=== PATIENT | female | born 1950 | race Caucasian/White ===

== ENCOUNTER 2016-04-26 11:41 | Outpatient (RCR) | payer MEDICARE, MEDICAID ==
--- OUTSIDE RECORDS SUMMARY | 2016-03-01 10:29 | XMS REPORT | Continuity of Care Document ---
Author Author [facility] Organization [facility] Address Unknown Phone Unavailable Care Team Providers Care All Source Intelligence Name Role Phone Tobi Benson PCP [phone] Source Comments Some departments are not documenting in the electronic medical record. If you do not see the information that you expected, contact Release of Information in the Health Information Management department at [phone] for further assistance in locating additional records.[facility] Active Allergies and Adverse Reactions Not [...]
[~2016-04-26 11:41] MED LIST: ACDPT PO; AMLO5TAB2 PO; ASP81TEC PO; ASPI-983 PO; ATEN25TA; ATEN50TA PO; ATOR40TA70 PO; ATOR80TA PO; ATOR80TA75 PO; Aspirin PO; BENZ-13 PO; BIOTIN PO; BRIN8DRO OU; CALC-6 PO; CALC-697 PO; CALC-80 PO; CHLO12TA9 PO; CHOL40002 PO; CHOL5000 PO; CLIN-80 PO; CLOP75TA28 PO; CLPD75T PO; CRAN1TAB PO; CRAN1TAB5 PO; CYAN250L PO; D50KC PO; DIAZIDE; DIGO250T96 PO; DIPH1TAB45 PO; DOXY100C2 PO; DPAS20025 PO; ENAL10TA PO; ENAL5TAB; ENALAPRIL; ENOX100D9 SQ; FEXO180T; FISH1CAP15 PO; FLAX100031 PO; FLT05NA16; FOLI0.4T2 PO; FOLI0.8T PO; FRS325T PO; FURO20TA4 PO; FURO40TA4; Folic Acid PO; GBPN100C PO; GLIP10TA13; GLIPIZIDE; HCT25T PO; HYDR-2997 PO; HYDR-3002 PO; HYDR-707; HYDR118S10 PO; INSASP10V SQ; INSU100I16 SQ; IRON45TA2 PO; ISORDIL PO; ISOS20TA6 PO; KCL; LEVE1U SQ; LEVO750T6 PO; LEVO750T9 PO; LISI1TAB10 PO; LISI2.5T PO; LISI2.5T56 PO; LORA10TA44 PO; LORA10TA7 PO; LOVA40TA2 PO; LVT.025T; MAGN100T3 PO; MAGN250T7 PO; MAGN400C PO; MELO-195 PO; METF-380 PO; METO-333 PO; METO100T2 PO; METO25TA2 PO; METO50TA7 PO; MTF500T; MTP50T PO; MULT-974 PO; NTR.4SL SL; NYST15CR3 TP; OMEG1CAP51 PO; OMEG1CAP74 PO; OMEP-10 PO; PRD20T PO; QUIN1TAB16 PO; QUIN20TA15 PO; ROSU20TA PO; SILV25CR TP; SULF1TAB35 PO; SULF1TAB38 PO; SUPER B PO; TORS100T14 PO; TRIA1CAP; TRM50T PO; VITA150T PO; WRF10T; WRF5T PO; ZANTAC; [UNRECOGNIZED DRUG - CODE] PO; [UNRECOGNIZED DRUG - REMARK]; coumadin
== END 2016-05-30 | disposition home or self-care (01) ==
LOC: ONC 11:41
PROVIDERS: ATTEND Internal Medicine Hematology & Oncology
DX: N18.3 Chronic kidney disease, stage 3 (moderate) (principal); D63.1 Anemia in chronic kidney disease; Z79.899 Other long term (current) drug therapy; Z45.2 Encounter for adjustment and management of vascular access device
CPT/HCPCS: 96523

== ENCOUNTER → 2016-05-23 | Outpatient (RCR) | payer MEDICARE, MEDICAID ==
--- OUTSIDE RECORDS SUMMARY | 2016-02-23 08:05 | XMS REPORT | Continuity of Care Document ---
Author Author [facility] Organization [facility] Address Unknown Phone Unavailable Care Team Providers Care Speeder Tender Name Role Phone Tobi Benson PCP [phone] Source Comments Some departments are not documenting in the electronic medical record. If you do not see the information that you expected, contact Release of Information in the Health Information Management department at [phone] for further assistance in locating additional records.[facility] Active Allergies and Adverse Reactions Not on File Current Medications Not on file Active Problems Not on file Social History Tobacco Use Types Packs/Day Years Used Date Never Assessed Plan of Care Health Maintenance Due Date Last Done Comments Physical (Comprehensive) 1959 Exam Pertussis Vaccine 1963 Tetanus Vaccine 1969 Cervical Cancer Screening 1973 Breast Cancer Screening 1992 Colorectal Cancer 2002 Screening Shingles Vaccine 2012 Influenza Vaccine 01/07/2016 Results from Last 3 Months Not on file
== END | disposition home or self-care (01) ==
LOC: WOUNDCARE 02-23 08:02
PROVIDERS: ATTEND Surgery
DX: E11.621 Type 2 diabetes mellitus with foot ulcer (principal); E11.42 Type 2 diabetes mellitus with diabetic polyneuropathy; E11.65 Type 2 diabetes mellitus with hyperglycemia; L97.522 Non-pressure chronic ulcer of other part of left foot with fat layer exposed; I70.245 Atherosclerosis of native arteries of left leg with ulceration of other part of foot; E66.01 Morbid (severe) obesity due to excess calories; Z68.43 Body mass index [BMI] 50.0-59.9, adult
CPT/HCPCS: 11042; 15275; 36415; 73630; 80053; 83036; 84134; 85652; 87070; 87075; 87077; 87186; 87205

== ENCOUNTER 2016-06-28 09:06 | Outpatient (RCR) | payer MEDICARE, MEDICAID ==
--- OUTSIDE RECORDS SUMMARY | 2016-06-01 08:29 | XMS REPORT | Continuity of Care Document ---
Author Author [facility] Organization [facility] Address Unknown Phone Unavailable Care Team Providers Care Improvement Specialist Name Role Phone Tobi Benson PCP [phone] Source Comments Some departments are not documenting in the electronic medical record. If you do not see the information that you expected, contact Release of Information in the Health Information Management department at [phone] for further assistance in locating additional records.[facility] Active Allergies and Adverse Reactions Not on [...]
== END 2016-06-28 16:00 | disposition home or self-care (01) ==
LOC: WOUNDCARE 09:06
PROVIDERS: ATTEND Surgery
DX: E11.621 Type 2 diabetes mellitus with foot ulcer (principal); E11.42 Type 2 diabetes mellitus with diabetic polyneuropathy; E11.65 Type 2 diabetes mellitus with hyperglycemia; L97.522 Non-pressure chronic ulcer of other part of left foot with fat layer exposed; I70.245 Atherosclerosis of native arteries of left leg with ulceration of other part of foot; E66.01 Morbid (severe) obesity due to excess calories; Z68.43 Body mass index [BMI] 50.0-59.9, adult
CPT/HCPCS: 11042; 99212

== ENCOUNTER → 2016-07-18 | Outpatient (CLI) | payer MEDICARE, MEDICAID ==
--- OUTSIDE RECORDS SUMMARY | 2016-07-18 11:09 | XMS REPORT | Continuity of Care Document ---
Author Author [facility] Organization [facility] Address Unknown Phone Unavailable Care Team Providers Care Power Shovel Mechanic Name Role Phone Tobi Benson PCP [phone] Source Comments Some departments are not documenting in the electronic medical record. If you do not see the information that you expected, contact Release of Information in the Health Information Management department at [phone] for further assistance in locating additional records.[facility] Active Allergies and Adverse Reactions Not [...]
[2016-07-18 12:26] LABS: ALBUMIN 3.6 G/DL (3.2-4.5); CALCIUM 9.6 MG/DL (8.5-10.1); CREATININE SERUM 1.63 MG/DL (0.60-1.30); PHOSPHORUS 3.8 MG/DL (2.3-4.7); POTASSIUM 4.3 MMOL/L (3.6-5.0)
[2016-07-18 12:35] LABS: PROTEIN/CREATININE RATIO 6.13
[2016-07-19 09:20] LABS: CALCIUM PARA THYROID HORMONE 9.5 mg/dL (8.5-10.5)
== END ==
LOC: LAB 11:06
PROVIDERS: ATTEND Internal Medicine Nephrology
DX: I12.9 Hypertensive chronic kidney disease with stage 1 through stage 4 chronic kidney disease, or unspecified chronic kidney disease (principal); E11.22 Type 2 diabetes mellitus with diabetic chronic kidney disease; N18.3 Chronic kidney disease, stage 3 (moderate); D63.1 Anemia in chronic kidney disease; E55.9 Vitamin D deficiency, unspecified; E87.5 Hyperkalemia; R80.9 Proteinuria, unspecified; N25.0 Renal osteodystrophy
CPT/HCPCS: 36415; 80061; 80069; 82306; 82570; 83036; 83970; 84100; 84156

== ENCOUNTER 2016-08-04 12:37 | Outpatient (RCR) | payer MEDICARE, MEDICAID ==
--- OUTSIDE RECORDS SUMMARY | 2016-06-07 09:51 | XMS REPORT | Continuity of Care Document ---
Author Author [facility] Organization [facility] Address Unknown Phone Unavailable Care Team Providers Care Bereavement Program Coordinator Name Role Phone Tobi Benson PCP [phone] Source Comments Some departments are not documenting in the electronic medical record. If you do not see the information that you expected, contact Release of Information in the Health Information Management department at [phone] for further assistance in locating additional records.[facility] Active Allergies and Adverse Reactions [...]
[2016-07-18 11:43] LABS: BASOPHILS % (AUTO) 1 % (0-10); EOSINOPHILS # (AUTO) 0.1 10^3/uL (0.0-0.3); EOSINOPHILS % (AUTO) 1 % (0-10); LYMPHOCYTES # (AUTO) 1.3 X 10^3 (1.0-4.0); LYMPHOCYTES % (AUTO) 21 % (12-44); MEAN CORPUSCULAR HEMOGLOBIN 28 PG (25-34); MEAN CORPUSCULAR HGB CONC 32 G/DL (32-36); MEAN CORPUSCULAR VOLUME 88 FL (80-99); MEAN PLATELET VOLUME 9.3 FL (7.4-10.4); MONOCYTES # (AUTO) 0.6 X 10^3 (0.0-1.0); MONOCYTES % (AUTO) 10 % (0-12); NEUTROPHILS # (AUTO) 4.2 X 10^3 (1.8-7.8); NEUTROPHILS % (AUTO) 68 % (42-75); PLATELET COUNT 245 10^3/uL (130-400); RED BLOOD COUNT 3.86 10^6/uL (4.35-5.85); RED CELL DISTRIBUTION WIDTH 14.5 % (10.0-14.5); WHITE BLOOD COUNT 6.2 10^3/uL (4.3-11.0)
[2016-07-18 12:29] LABS: CREATININE SERUM 1.65 MG/DL (0.60-1.30); POTASSIUM 4.4 MMOL/L (3.6-5.0)
[2016-07-18 12:30] LABS: ALBUMIN 3.6 G/DL (3.2-4.5); BILIRUBIN,TOTAL 0.5 MG/DL (0.1-1.0); CALCIUM 9.6 MG/DL (8.5-10.1); TOTAL PROTEIN 6.8 G/DL (6.4-8.2)
== END 2016-09-05 | disposition home or self-care (01) ==
LOC: ONC 12:37
PROVIDERS: ATTEND Internal Medicine Hematology & Oncology
DX: N18.3 Chronic kidney disease, stage 3 (moderate) (principal); D63.1 Anemia in chronic kidney disease; Z79.899 Other long term (current) drug therapy; Z45.2 Encounter for adjustment and management of vascular access device
CPT/HCPCS: 80053; 82728; 85025; 96523; 99213

== ENCOUNTER 2016-10-12 12:31 | Outpatient (RCR) | payer MEDICARE, MEDICAID | END 2016-10-25 14:08 | disposition home or self-care (01) | PROVIDERS: ATTEND Pain Medicine Interventional Pain Medicine | DX: M54.16 Radiculopathy, lumbar region (principal) ==

== ENCOUNTER → 2016-11-22 | Outpatient (CLI) | payer MEDICARE, MEDICAID ==
[~2016-11-22] MED LIST changes: +CIPR500S3 PO; +FLAX1000 PO; +INSU100I14 SC; +INSU100I29 SC; +LOSA100T28 PO; +MAGN250T35 PO; +MULT-35 PO; +NFBIOT1000 PO; +OMEG-160 PO; +ROSU20TA28 PO; +TURM538C PO; +[UNRECOGNIZED DRUG - CODE] PO
[2016-11-22 16:12] LABS: RED BLOOD COUNT 3.42 10^6/uL (4.35-5.85); RED CELL DISTRIBUTION WIDTH 13.9 % (10.0-14.5); WHITE BLOOD COUNT 7.6 10^3/uL (4.3-11.0)
[2016-11-22 16:13] LABS: MEAN PLATELET VOLUME 9.4 FL (7.4-10.4)
[2016-11-22 16:39] LABS: ALBUMIN 3.5 GM/DL (3.2-4.5); CALCIUM 9.4 MG/DL (8.5-10.1); CREATININE SERUM 1.94 MG/DL (0.60-1.30); PHOSPHORUS 2.9 MG/DL (2.3-4.7); POTASSIUM 4.9 MMOL/L (3.6-5.0)
[2016-11-22 16:41] LABS: PROTEIN/CREATININE RATIO 3.47
[2016-11-24 06:57] LABS: CALCIUM PARA THYROID HORMONE 8.8 mg/dL (8.5-10.5)
== END ==
LOC: LAB 15:43
PROVIDERS: ATTEND Internal Medicine Nephrology
DX: E11.29 Type 2 diabetes mellitus with other diabetic kidney complication (principal); I12.9 Hypertensive chronic kidney disease with stage 1 through stage 4 chronic kidney disease, or unspecified chronic kidney disease; N18.3 Chronic kidney disease, stage 3 (moderate); D63.1 Anemia in chronic kidney disease; E87.5 Hyperkalemia; R80.9 Proteinuria, unspecified; E66.3 Overweight; E78.5 Hyperlipidemia, unspecified; N08 Glomerular disorders in diseases classified elsewhere; I25.10 Atherosclerotic heart disease of native coronary artery without angina pectoris; E55.9 Vitamin D deficiency, unspecified; N20.0 Calculus of kidney
CPT/HCPCS: 36415; 80069; 82306; 82570; 83036; 83970; 84156; 85027

== ENCOUNTER 2016-12-30 08:27 | Outpatient (RCR) | payer MEDICARE, MEDICAID ==
[2016-10-10 14:46] LABS: BASOPHILS % (AUTO) 0 % (0-10); EOSINOPHILS # (AUTO) 0.1 10^3/uL (0.0-0.3); EOSINOPHILS % (AUTO) 1 % (0-10); LYMPHOCYTES # (AUTO) 1.6 X 10^3 (1.0-4.0); LYMPHOCYTES % (AUTO) 23 % (12-44); MEAN CORPUSCULAR HEMOGLOBIN 29 PG (25-34); MEAN CORPUSCULAR HGB CONC 33 G/DL (32-36); MEAN CORPUSCULAR VOLUME 90 FL (80-99); MEAN PLATELET VOLUME 9.3 FL (7.4-10.4); MONOCYTES # (AUTO) 0.7 X 10^3 (0.0-1.0); MONOCYTES % (AUTO) 10 % (0-12); NEUTROPHILS # (AUTO) 4.5 X 10^3 (1.8-7.8); NEUTROPHILS % (AUTO) 66 % (42-75); PLATELET COUNT 245 10^3/uL (130-400); RED BLOOD COUNT 3.88 10^6/uL (4.35-5.85); RED CELL DISTRIBUTION WIDTH 13.6 % (10.0-14.5); WHITE BLOOD COUNT 6.8 10^3/uL (4.3-11.0)
[~2016-12-30 08:27] MED LIST changes: -CIPR500S3 PO; -FLAX1000 PO; -INSU100I14 SC; -INSU100I29 SC; -LOSA100T28 PO; -MAGN250T35 PO; -MULT-35 PO; -NFBIOT1000 PO; -OMEG-160 PO; -ROSU20TA28 PO; -TURM538C PO; -[UNRECOGNIZED DRUG - CODE] PO
[2016-12-30 08:52] LABS: BASOPHILS % (AUTO) 1 % (0-10); EOSINOPHILS # (AUTO) 0.1 10^3/uL (0.0-0.3); EOSINOPHILS % (AUTO) 2 % (0-10); LYMPHOCYTES # (AUTO) 1.5 X 10^3 (1.0-4.0); LYMPHOCYTES % (AUTO) 19 % (12-44); MEAN CORPUSCULAR HEMOGLOBIN 29 PG (25-34); MEAN CORPUSCULAR HGB CONC 31 G/DL (32-36); MEAN CORPUSCULAR VOLUME 91 FL (80-99); MEAN PLATELET VOLUME 9.7 FL (7.4-10.4); MONOCYTES % (AUTO) 12 % (0-12); NEUTROPHILS # (AUTO) 5.2 X 10^3 (1.8-7.8); NEUTROPHILS % (AUTO) 67 % (42-75); PLATELET COUNT 334 10^3/uL (130-400); RED BLOOD COUNT 3.81 10^6/uL (4.35-5.85); RED CELL DISTRIBUTION WIDTH 13.5 % (10.0-14.5); WHITE BLOOD COUNT 7.8 10^3/uL (4.3-11.0)
[2016-12-30 09:14] LABS: ALBUMIN 3.4 GM/DL (3.2-4.5); BILIRUBIN,TOTAL 0.3 MG/DL (0.1-1.0); CALCIUM 9.5 MG/DL (8.5-10.1); CREATININE SERUM 2.41 MG/DL (0.60-1.30); POTASSIUM 5.2 MMOL/L (3.6-5.0); TOTAL PROTEIN 7.1 GM/DL (6.4-8.2)
== END 2017-01-08 | disposition home or self-care (01) ==
LOC: ONC 08:27
PROVIDERS: ATTEND Internal Medicine Hematology & Oncology
DX: N18.3 Chronic kidney disease, stage 3 (moderate) (principal); D63.1 Anemia in chronic kidney disease; Z79.899 Other long term (current) drug therapy; Z45.2 Encounter for adjustment and management of vascular access device
CPT/HCPCS: 36591; 80053; 82728; 83615; 85025

== ENCOUNTER 2017-01-11 08:15 | Outpatient (RCR) | payer MEDICARE, MEDICAID | END 2017-02-04 | disposition home or self-care (01) | LOC: ONC 08:15 | PROVIDERS: ATTEND Internal Medicine Hematology & Oncology | DX: Z79.899 Other long term (current) drug therapy; D63.1 Anemia in chronic kidney disease; N18.3 Chronic kidney disease, stage 3 (moderate) | CPT/HCPCS: 99213 ==

== ENCOUNTER 2017-02-26 10:05 | Observation (INO) | payer MEDICARE, MEDICAID ==
[~2017-02-26] VITALS: Ht 167.6 cm; Wt 142.2 kg
--- OUTSIDE RECORDS SUMMARY | 2017-02-26 10:10 | XMS REPORT ---
Author Author MARY FRAGOSO [employer] Address Unknown Phone Unavailable Care Team Providers Care Tester Food Products Name Role Phone MARY FRAGOSO CP Unavailable Allergies No Known Allergies Problems Problem Type Condition Code Onset Dates Condition Status Problem Coronary artery disease involving [place] coronary artery of [place] heart, angina presence unspecified I25.10 Active Problem Type 2 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 Active Problem Type 2 diabetes mellitus with foot ulcer E11.621 Active Problem Stenosis of carotid artery, unspecified laterality I65.29 Active Problem Type 2 diabetes mellitus with diabetic polyneuropathy E11.42 Active Problem Anemia in other chronic diseases classified elsewhere D63.8 Active Problem Chronic kidney disease, stage 3 (moderate) N18.3 Active Problem Generalized osteoarthritis M15.9 Active Problem Essential hypertension I10 Active Problem 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
--- OUTSIDE RECORDS SUMMARY | 2017-02-26 10:10 | XMS REPORT ---
Author Author MARY FRAGOSO [employer] Address Unknown Phone Unavailable Care Team Providers Care Glass Cutter Helper Name Role Phone MARY FRAGOSO CP Unavailable Allergies No Known Allergies Problems Problem Type Condition Code Onset Dates Condition Status Problem Type 2 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 Active Problem Generalized osteoarthritis M15.9 Active Problem Essential hypertension I10 Active Problem Type 2 diabetes mellitus with diabetic polyneuropathy E11.42 Active Problem Anemia in other chronic diseases classified elsewhere D63.8 Active Problem Chronic kidney disease, stage 3 (moderate) N18.3 Active Problem 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 Active Problem Type 2 diabetes mellitus with hyperglycemia E11.65 Active Problem Mixed hyperlipidemia E78.2 Active Problem Iron deficiency anemia, unspecified iron deficiency anemia type D50.9 Active Problem Stenosis of carotid artery, unspecified laterality I65.29 Active Problem Coronary artery disease involving [place] coronary artery of [place] heart, angina presence unspecified I25.10 Active Problem Type 2 diabetes mellitus with foot ulcer E11.621 Active Medications Medication Code System Code Instructions Start Date End Date Status Dosage Cipro [facility] [address]-94 250 MG Orally every 12 hrs Jun 18, 2015 1 tablet Results No Known Results Summary Purpose [employer] Submission
--- OUTSIDE RECORDS SUMMARY | 2017-02-26 10:10 | XMS REPORT ---
Author Author JENN MCDONALD Organization [facility] Address [address] [place] [address] Care Team Providers Care Musical Instrument Maker Name Role Phone JENN MCDONALD Unavailable PROBLEMS Type Condition ICD9-CM Code [id number] Code Onset Dates Condition Status SNOMED Code Problem Generalized osteoarthritis M15.9 Active 975076512 Problem Essential hypertension I10 Active 75020905 Problem Aortic valve sclerosis I35.8 Active 01106676 Problem Presence of IVC filter Z95.828 Active 139665933 Problem Trochanteric bursitis of left hip M70.62 Active 273684525502953 Problem Type 2 diabetes mellitus with diabetic polyneuropathy E11.42 Active 982100208 Problem Chronic kidney disease, stage 3 (moderate) N18.3 Active 835350231 Problem Diarrhea, unspecified type R19.7 Active 14645992 Problem Anemia in other chronic diseases classified elsewhere D63.8 Active 951956332 Problem Decreased diffusion capacity R94.2 Active 04298403 Problem 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 Active 3093315 Problem Severe sleep apnea G47.30 Active 75743625 Problem Iron deficiency anemia, unspecified iron deficiency anemia type D50.9 Active 09992514 Problem Type 2 diabetes mellitus with hyperglycemia E11.65 Active 84144375 Problem Type 2 diabetes mellitus with foot ulcer E11.621 Active 060139339 Problem Type 2 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 Active 99039703 Problem Stenosis of carotid artery, unspecified laterality I65.29 Active 79250847 Problem Mixed hyperlipidemia E78.2 Active 046421617 Problem Coronary artery disease involving [place] coronary artery of [place] heart, angina presence unspecified I25.10 Active 5021904436682 ALLERGIES No Information SOCIAL HISTORY Never Assessed PLAN OF CARE VITAL SIGNS MEDICATIONS Medication Instructions Dosage Frequency Start Date End Date Duration Status Hydrocodone-Acetaminophen 7.5-325 MG Orally 3 times a day 1 tablet as needed 8h Nov, Active RESULTS No Results PROCEDURES No Known procedures IMMUNIZATIONS No Known Immunizations MEDICAL (GENERAL) HISTORY Type Description Date Medical History Carotid stenosis (R) Medical History arrhythmia-irregular beat Medical History coronary artery disease Medical History hypertension Medical History chronic renal failure Medical History endometriosis Medical History type II diabetes Medical History hyperlipidemia Medical History obesity Medical History chronic pain (back and shoulder) Medical History degenerative disc disease (T spine)/compression fx T3 Medical History TIA 11/2010 Medical History deep vein thromboses (R leg) Medical History hearing loss (bilat ruptured TMs) Medical History ruptured supraspinus tendon w/ hemarthrosis R shoulder s/p fall 12/2009 Surgical History cholecystectomy Surgical History heart cath Surgical History tonsillectomy and adenoidectomy Surgical History carotid endarterectomy 01/2011 Surgical History hysterectomy Surgical History orthopedic surgery-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 ([facility]) 1986 Surgical History osteomyelitis left 4th toe 2006 Surgical History laser eye surgery both eyes 05/2015 Hospitalization History Hyperglycemia, Hypoxia--[facility] 01/21/16 Hospitalization History surgeries
--- OUTSIDE RECORDS SUMMARY | 2017-02-26 10:10 | XMS REPORT ---
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 Active 9360155 Problem Decreased diffusion capacity R94.2 Active 21418419 Problem Aortic valve sclerosis I35.8 Active 76646797 Problem Chronic kidney disease, stage 3 (moderate) N18.3 Active 732136508 Problem Type 2 diabetes mellitus with diabetic polyneuropathy E11.42 Active 829325135 Problem Iron deficiency anemia, unspecified iron deficiency anemia type D50.9 Active 41923247 Problem Severe sleep apnea G47.30 Active 64571837 Problem Anemia in other chronic diseases classified elsewhere D63.8 Active 166613173 Problem Mixed hyperlipidemia E78.2 Active 872765222 Problem Stenosis of carotid artery, unspecified laterality I65.29 Active 75993621 Problem Type 2 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 Active 92866650 Problem Essential hypertension I10 Active 61751597 Problem Coronary artery disease involving [place] coronary artery of [place] heart, angina presence unspecified I25.10 Active 4237767522767 Problem Generalized osteoarthritis M15.9 Active 515718946 Problem Type 2 diabetes mellitus with foot ulcer E11.621 Active 805487116 Problem Type 2 diabetes mellitus with hyperglycemia E11.65 Active 87650695 ALLERGIES Unknown Allergies SOCIAL HISTORY No smoking Hx information available PLAN OF CARE VITAL SIGNS MEDICATIONS Unknown Medications RESULTS No Results PROCEDURES No Known procedures IMMUNIZATIONS No Known Immunizations
--- OUTSIDE RECORDS SUMMARY | 2017-02-26 10:10 | XMS REPORT | Clinical Summary ---
Author Author [facility] Organization [facility] Address Unknown Phone Unavailable Care Team Providers Care Hotel Registration Clerk Name Role Phone PCP Unavailable Source Comments Some departments are not documenting in the electronic medical record. If you do not see the information that you expected, contact Release of Information in the Health Information Management department at [phone] for further assistance in locating additional records.[facility] Allergies Not on File Current Medications Not on file Active Problems Not on file Social History Tobacco Use Types Packs/Day Years Used Date Never Assessed Sex Assigned at Date Recorded Not on file Last Filed Vital Signs Not on file Plan of Treatment Health Maintenance Due Date Last Done Comments HEPATITIS C SCREENING 1952 PHYSICAL (COMPREHENSIVE) 1959 EXAM PERTUSSIS VACCINE 1963 TETANUS VACCINE 1969 CERVICAL CANCER SCREENING 1982 BREAST CANCER SCREENING 1992 COLORECTAL CANCER 2002 SCREENING SHINGLES VACCINE 2012 INFLUENZA VACCINE 12/06/2016 Results Not on filefrom Last 3 Months
--- OUTSIDE RECORDS SUMMARY | 2017-02-26 10:10 | XMS REPORT ---
Author Author MARY FRAGOSO Organization [facility] Address [address] [place] [address] Care Team Providers Care Harvester Operator Name Role Phone MARY FRAGOSO Unavailable PROBLEMS Type Condition ICD9-CM Code [id number] Code Onset Dates Condition Status SNOMED Code Problem Aortic valve sclerosis I35.8 Active 07311232 Problem Severe sleep apnea G47.30 Active 71314698 Problem Decreased diffusion capacity R94.2 Active 14443884 Problem Diarrhea, unspecified type R19.7 Active 48228760 Problem Chronic kidney disease, stage 3 (moderate) N18.3 Active 475801000 Problem Mixed hyperlipidemia E78.2 Active 099097129 Problem Iron deficiency anemia, unspecified iron deficiency anemia type D50.9 Active 62591319 Problem Type 2 diabetes mellitus with diabetic polyneuropathy E11.42 Active 273605644 Problem Anemia in other chronic diseases classified elsewhere D63.8 Active 465034453 Problem Stenosis of carotid artery, unspecified laterality I65.29 Active 68978801 Problem Coronary artery disease involving [place] coronary artery of [place] heart, angina presence unspecified I25.10 Active 2025019706256 Problem Essential hypertension I10 Active 31647869 Problem Generalized osteoarthritis M15.9 Active 770194256 Problem Type 2 diabetes mellitus with foot ulcer E11.621 Active 897442038 Problem Type 2 diabetes mellitus with hyperglycemia E11.65 Active 81469934 Problem Type 2 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 Active 02921551 Problem 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
--- OUTSIDE RECORDS SUMMARY | 2017-02-26 10:11 | XMS REPORT ---
Author Author MIGUEL GÓMEZ Organization [facility] Address [address] 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 Active 5456747 Problem Decreased diffusion capacity R94.2 Active 02995016 Problem Aortic valve sclerosis I35.8 Active 03548106 Problem Chronic kidney disease, stage 3 (moderate) N18.3 Active 734531457 Problem Type 2 diabetes mellitus with diabetic polyneuropathy E11.42 Active 253557588 Problem Iron deficiency anemia, unspecified iron deficiency anemia type D50.9 Active 92337517 Problem Severe sleep apnea G47.30 Active 70167272 Problem Anemia in other chronic diseases classified elsewhere D63.8 Active 675970199 Problem Mixed hyperlipidemia E78.2 Active 506721824 Problem Stenosis of carotid artery, unspecified laterality I65.29 Active 29238228 Problem Type 2 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 Active 61478026 Problem Essential hypertension I10 Active 91321665 Problem Coronary artery disease involving [place] coronary artery of [place] heart, angina presence unspecified I25.10 Active 8395263459771 Problem Generalized osteoarthritis M15.9 Active 804429095 Problem Type 2 diabetes mellitus with foot ulcer E11.621 Active 986301039 Problem Type 2 diabetes mellitus with hyperglycemia E11.65 Active 41180475 ALLERGIES Unknown Allergies SOCIAL HISTORY No smoking Hx information available PLAN OF CARE VITAL SIGNS MEDICATIONS Medication Instructions Dosage Frequency Start Date End Date Duration Status Vitamin D3 5000 UNIT Active Alavert 10 mg take 1 tablet (10 mg) by oral route once daily September, Active Lomotil 2.5-0.025 MG Orally Four times a day 1 tablet as needed 6h Active Arginine 1000 MG Orally 3 times a day 2 tablets 8h Active Neurontin 100 MG Orally 3 times a day 1 capsule 8h Nov, Active Norvasc 5 MG TAKE ONE TABLET BY MOUTH DAILY 30 Active Multivitamin Adult - Active Levemir Flexpen 100 UNIT/ML INJECT 20 UNITS SUBCUTANEOUSLY TWICE DAILY 38 Active Aspirin 81 mg take 1 tablet (81 mg) by oral route once daily September, Active Hydrocodone-Acetaminophen 7.5-325 MG Orally 3 times a day 1 tablet as needed 8h 10 Nov, 2014 Active Vitamin D2 50,000 unit take 1 capsule (50,000 unit) by oral route once weekly for 12 weeks Jan, Active Magnesium Oxide 250 MG Orally Once a day 1 tablet 24h Active Fish Oil 1000 MG Orally 3 times a day 1 capsule 8h Active Flaxseed Oil 1000 MG Active Rosuvastatin Calcium 20 mg Orally Once a day 1 tablet 24h Apr, 90 days Active Levofloxacin 750 MG Orally Once a day for 7 days 1 tablet Active Plavix 75 MG TAKE ONE TABLET BY MOUTH DAILY 30 Active Calcium Carbonate-Vitamin D3 600-400 MG-UNIT Orally 3 times a day 8h Active Simbrinza 1-0.2 % Ophthalmic Three times a day 1 drop into affected eye 8h Active Metoprolol Tartrate 25 MG TAKE ONE TABLET BY MOUTH TWICE DAILY 30 Active NovoLog Flexpen 100 unit/mL 18 units by Subcutaneous route 3 times per day Jul, Active Nitroglycerin 0.[address] 1 tablet (0.4 mg) by sublingual route at the 1st sign of attack; may repeat every 5 min until relief; if pain persists after 3 tablets in 15 min, prompt medical attention is recommendedPRN Mar, Active PredniSONE 20 mg Orally Once a day for 5 days 1 tablet Active RESULTS No Results PROCEDURES No Known procedures IMMUNIZATIONS No Known Immunizations
--- OUTSIDE RECORDS SUMMARY | 2017-02-26 10:11 | XMS REPORT ---
Author Author MARY FRAGSOO [employer] Address Unknown Phone Unavailable Care Team Providers Care Molded Rubber Goods Cutter Name Role Phone MARY FRAGOSO CP Unavailable Allergies No Known Allergies Problems Problem Type Condition Code Onset Dates Condition Status Problem Coronary artery disease involving [place] coronary artery of [place] heart, angina presence unspecified I25.10 Active Problem [...] diabetes mellitus with hyperglycemia E11.65 Active Medications No Known Medications Results No Known Results Summary Purpose [employer]ClinicalWorks Submission
--- OUTSIDE RECORDS SUMMARY | 2017-02-26 10:11 | XMS REPORT ---
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 Active Problem Type 2 diabetes mellitus with hyperglycemia E11.65 Active Problem Chronic kidney disease, stage 3 (moderate) N18.3 Active Assessment Hypoxia R09.02 Active Problem Type 2 diabetes mellitus with diabetic polyneuropathy E11.42 Active Assessment 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 Active Assessment Type 2 diabetes mellitus with foot ulcer E11.621 Active Problem Diarrhea, unspecified type R19.7 Active Problem Iron deficiency anemia, unspecified iron deficiency anemia type D50.9 Active Problem Severe sleep apnea G47.30 Active Problem Anemia in other chronic diseases classified elsewhere D63.8 Active Problem Mixed hyperlipidemia E78.2 Active Assessment Diarrhea, unspecified type R19.7 Active Assessment Encounter for immunization Z23 Active Assessment Mixed hyperlipidemia E78.2 Active Assessment Essential hypertension I10 Active Problem Coronary artery disease involving [place] coronary artery of [place] heart, angina presence unspecified I25.10 Active Problem Type 2 diabetes mellitus with foot ulcer E11.621 Active Assessment Type 2 diabetes mellitus with hyperglycemia E11.65 Active Problem Type 2 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 Active Problem Stenosis of carotid artery, unspecified laterality I65.29 Active Problem Essential hypertension I10 Active Medications Medication Code System Code Instructions Start Date End Date Status Dosage Lomotil [facility] [address]-17 2.5-0.025 MG Orally Four times a day 1 tablet as needed Alavert [facility] [address]-85 10 mg September 29, 2011 take 1 tablet (10 mg ) by oral route once daily Rosuvastatin Calcium [facility] [address]-40 20 mg Orally Once a day Apr 21, 2015 1 tablet Levemir Flexpen [facility] 10515107924 100 UNIT/ML INJECT 20 UNITS SUBCUTANEOUSLY TWICE DAILY Calcium Carbonate-Vitamin D3 [facility] [address]-51 600-400 MG-UNIT Orally 3 times a day not defined Neurontin [facility] 59693436959 100 MG Orally 3 times a day 1 capsule Fish Oil [facility] [address]-56 1000 MG Orally 3 times a day 1 capsule Norvasc [facility] [address]-18 5 MG Orally Once a day 1 tablet Arginine [facility] [address]-32 1000 MG Orally 3 times a day 2 tablets Nitroglycerin [facility] [address]-62 0.4 mg Mar 09, 2012 place 1 tablet (0.4 mg) by sublingual route at the 1st sign of attack; may repeat every 5 min until relief; if pain persists after 3 tablets in 15 min, prompt medical attention is recommendedPRN Hydrocodone-Acetaminophen [facility] [address]-81 7.5-325 MG Orally 3 times a day November 14, 2014 1 tablet as needed Multivitamin Adult [facility] 63786-88576 - Orally not defined Magnesium Oxide [facility] 9[address]96-56926 250 MG Orally Once a day 1 tablet Metoprolol Tartrate [facility] [address]-28 25 MG Orally Twice a day 1/ 2 tablet Plavix [facility] 08092292545 75 MG TAKE ONE TABLET BY MOUTH DAILY Simbrinza [facility] [address]-45 1-0.2 % Ophthalmic Three times a day 1 drop into affected eye Aspirin [facility] 52335-75552 81 mg September 29, 2011 take 1 tablet (81 mg) by oral route once daily NovoLog Flexpen [facility] [address]-67 100 unit/mL July 18, 2014 18 units by Subcutaneous route 3 times per day Vitamin D3 [facility] [address]-32 5000 UNIT Orally not defined Flaxseed Oil [facility] [address]-21 1000 MG Orally not defined Procedures Procedure Coding System Code Date FLUARIX QUAD P-FREE 3 AND UP .50 2015 CPT-4 28157 Feb 19, 2016 SINGLE IMMUNIZATION ADMIN CPT-4 25936 Feb 19, 2016 GLYCATED HEMOGLOBIN TEST CPT-4 27336 Feb 19, 2016 Office Visit, Est Pt., Level 3 CPT-4 56290 Feb 19, 2016 [facility] VISIT ESTABLISHED PATIENT CPT-4 G0467 Feb 19, 2016 Vital Signs Date/Time: Feb 19, 2016 Cardiac Monitoring Heart Rate 72 bpm Weight 344.7 lbs Height 66 in BMI 55.63 Index Blood Pressure Diastolic 64 mmHg Blood Pressure Systolic 132 mmHg Results Name Result Date Reference Range Unit Abnormality Flag A1C (IN HOUSE) ----A1C IN HOUSE 9.2 20160219 4.3 - 5.6 % ----Previous A1c 11.6 20160219 ----Lot [id number] ----Exp date [id number] Immunizations Vaccine Administration Date FLUARIX QUAD P-FREE 3 AND UP .50 2015Feb 19, 2016 Summary Purpose eClinicalWorks Submission
--- OUTSIDE RECORDS SUMMARY | 2017-02-26 10:11 | XMS REPORT ---
Author Author MARY FRAGOSO [employer] Address Unknown Phone Unavailable Care Team Providers Care Hedis Coordinator Name Role Phone MARY FRAGOSO CP Unavailable Allergies No Known Allergies Problems Problem Type Condition Code Onset Dates Condition Status Problem Type 2 diabetes mellitus with foot ulcer E11.621 Active Problem Essential hypertension I10 Active Problem Type 2 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 Active Problem Stenosis of carotid artery, unspecified laterality I65.29 Active Problem Coronary artery disease involving [place] coronary artery of [place] heart, angina presence unspecified I25.10 Active Problem Type 2 diabetes mellitus with diabetic polyneuropathy E11.42 Active Problem Anemia in other chronic diseases classified elsewhere D63.8 Active Problem Chronic kidney disease, stage 3 (moderate) N18.3 Active Problem Type 2 diabetes mellitus with hyperglycemia E11.65 Active Problem Generalized osteoarthritis M15.9 Active Problem Mixed hyperlipidemia E78.2 Active Problem 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 [address]-24 20 MG Orally Once a day Apr 21, 2015 1 tablet Results No Known Results Summary Purpose eClinicalWorks Submission
--- OUTSIDE RECORDS SUMMARY | 2017-02-26 10:11 | XMS REPORT ---
Author Author MARY FRAGOSO [employer] Address Unknown Phone Unavailable Care Team Providers Care Leather Worker Name Role Phone MARY FRAGOSO CP Unavailable [...]
--- OUTSIDE RECORDS SUMMARY | 2017-02-26 10:11 | XMS REPORT ---
Author Author MAYR FRAGOSO [employer] Address Unknown Phone Unavailable Care Team Providers Care Garden Equipment Mechanic Name Role Phone MARY FRAGOSO CP Unavailable Allergies, Adverse Reactions, Alerts Substance Reaction Event Type Triple Antibiotic Info Not Available Drug Allergy Penicillin V Potassium Info Not Available Drug Allergy Flonase bloody nose Drug Allergy Amoxicillin Info Not Available Drug Allergy Problems Problem Type Condition ICD-9 Code Onset Dates Condition Status Problem Flat foot 734 Active Problem Hallux rigidus 735.2 Active Problem Ulcer of heel and midfoot 707.14 Active Problem Hyposmolality and/or hyponatremia 276.1 Active Problem 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 Active Problem Hypertension 401.9 Active Problem Palpitations 785.1 Active Problem Edema 782.3 Active Problem Generalized osteoarthrosis, unspecified site 715.00 Active Problem Diabetes with other specified manifestations, type II or unspecified type, not stated as uncontrolled 250.80 Active Assessment Hip pain, left 719.45 Active Assessment Hypertension 401.9 Active Assessment Acute anxiety 300.00 Active Problem Unspecified hearing loss 389.9 Active Problem Dysfunction of Eustachian tube 381.81 Active Assessment Ulcer of heel and midfoot 707.14 Active Problem Occlusion and stenosis of carotid artery without mention of cerebral infarction 433.10 Active Assessment Diabetes with other specified manifestations, type II or unspecified type, not stated as uncontrolled 250.80 Active Problem Coronary atherosclerosis of unspecified type of vessel, [place] or graft 414.00 Active Medications Medication Code System Code Instructions Start Date End Date Status Dosage Norvasc [facility] 55443220718 5 MG TAKE ONE TABLET BY MOUTH DAILY Flaxseed Oil [facility] 35119-04625 Jun 21, 2011 by Oral route Magnesium [facility] 46[address]-58227 Jun 21, 2011 by Oral route Aspirin [facility] 56187-58008 81 mg September 29, 2011 take 1 tablet (81 mg) by oral route once daily NovoLog Flexpen [facility] [address]-16 100 unit/mL July 18, 2014 25 units by Subcutaneous route 3 times per day Multivitamin [facility] 01015-35519 Jan 10, 2014 1 tablet by Oral route 1 time per day Hydrocodone-Acetaminophen [facility] [address]-29 7.5-325 MG Orally 3 times a day November 14, 2014 1 tablet as needed Fish Oil [facility] [address]-75 Jun 21, 2011 by Oral route Biotin [facility] 47144-37790 10,000 mcg Jan 10, 2014 1 Capsule 3 times per day Valium [facility] [address]-95 5 MG Orally PRN September 24, 2014 1 tablet as needed 30 before procedure, can repeat dose if needed. Do not drive after taking. Simbrinza [facility] [address]-81 1-0.2 % Ophthalmic Three times a day 1 drop into affected eye Alavert [facility] [address]-17 10 mg September 29, 2011 take 1 tablet (10 mg ) by oral route once daily Ciprofloxacin HCl [facility] [address]-84 0.3 % Ophthalmic every 4 hrs 1 drop into affected eye while awake Folic Acid [facility] [address]-42 Jun 21, 2011 by Oral route Levemir FlexTouch [facility] [address]-78 100 unit/mL (3 mL) July 18, 2014 inject 40 Units by Subcutaneous route every day Cranberry [facility] 39566-78619 300 mg Jan 10, 2014 1 Tablet 3 times per day Metoprolol Tartrate [facility] [address]-85 25 MG Orally July 18, 2014 take 1 tablet (50 mg) by oral route 2 times per day with meals Neurontin [facility] [address]-87 100 MG Orally 3 times a day November 14, 2014 1 capsule Ferrous Sulfate [facility] [address]-16 325 mg (65 mg iron) Jun 20, 2012 1 tablet by Oral route 2 times per day Vitamin D2 [facility] 63796-[address]24 50,000 unit Jan 10, 2014 take 1 capsule (50,000 unit) by oral route once weekly for 12 weeks Procedures Procedure Coding System Code Date Office Visit, Est Pt., Level 4 CPT-4 14841 Dec 24, 2014 [facility] VISIT ESTABLISHED PATIENT CPT-4 G0467 Dec 24, 2014 Vital Signs Date/Time: Dec 24, 2014 Temperature 98.5 F Weight 332.7 lbs Height 66 in BMI 53.69 Index Blood Pressure Diastolic 80 mmHg Blood Pressure Systolic 162 mmHg Cardiac Monitoring Heart Rate 74 bpm Results No Known Results Summary Purpose eClinicalWorks Submission
--- OUTSIDE RECORDS SUMMARY | 2017-02-26 10:11 | XMS REPORT ---
Author Author MARY FRAGOSO [employer] Address Unknown Phone Unavailable Care Team Providers Care Police Officer Name Role Phone MARY FRAGOSO CP Unavailable [...] I65.29 Active Problem Coronary artery disease involving [place] coronary artery of [place] heart, angina presence unspecified I25.10 Active Problem Type 2 diabetes mellitus with foot ulcer E11.621 Active Medications Medication Code System Code Instructions Start Date End Date Status Dosage Rosuvastatin Calcium [facility] [address]-90 20 mg Orally Once a day Apr 21, 2015 1 tablet Results No Known Results Summary Purpose eClinicalWorks Submission
--- OUTSIDE RECORDS SUMMARY | 2017-02-26 10:11 | XMS REPORT ---
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 Active 34094230 Problem Severe sleep apnea G47.30 Active 97921142 Problem Decreased diffusion capacity R94.2 Active 74630622 Problem Diarrhea, unspecified type R19.7 Active 89967189 Problem Chronic kidney disease, stage 3 (moderate) N18.3 Active 149305913 Problem Mixed hyperlipidemia E78.2 Active 857152822 Problem Iron deficiency anemia, unspecified iron deficiency anemia type D50.9 Active 43690536 Problem Type 2 diabetes mellitus with diabetic polyneuropathy E11.42 Active 844525031 Problem Anemia in other chronic diseases classified elsewhere D63.8 Active 013531653 Problem Stenosis of carotid artery, unspecified laterality I65.29 Active 22953365 Problem Coronary artery disease involving [place] coronary artery of [place] heart, angina presence unspecified I25.10 Active 8817554124888 Problem Essential hypertension I10 Active 70231325 Problem Generalized osteoarthritis M15.9 Active 993762803 Problem Type 2 diabetes mellitus with foot ulcer E11.621 Active 977185004 Problem Type 2 diabetes mellitus with hyperglycemia E11.65 Active 25330432 Problem Type 2 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 Active 34879835 Problem 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
--- OUTSIDE RECORDS SUMMARY | 2017-02-26 10:11 | XMS REPORT ---
Author Author MARY FRAGOSO [facility] Address [address] [place] [address] Care Team Providers Care Fiberglass Boat Builder Name Role Phone MARY FRAGOSO Unavailable PROBLEMS Type Condition ICD9-CM Code [id number] Code Onset Dates Condition Status SNOMED Code Problem Generalized osteoarthritis M15.9 Active 022186185 Problem Essential hypertension I10 Active 69854628 Problem Aortic valve sclerosis I35.8 Active 45131652 Problem Presence of IVC filter Z95.828 Active 657430076 Problem Trochanteric bursitis of left hip M70.62 Active 699895594118858 Problem Type 2 diabetes mellitus with diabetic polyneuropathy E11.42 Active 301335785 Problem Chronic kidney disease, stage 3 (moderate) N18.3 Active 202106587 Problem Diarrhea, unspecified type R19.7 Active 45184366 Problem Anemia in other chronic diseases classified elsewhere D63.8 Active 580667336 Problem Decreased diffusion capacity R94.2 Active 24971954 Problem 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 Active 3782996 Problem Severe sleep apnea G47.30 Active 17331781 Problem Iron deficiency anemia, unspecified iron deficiency anemia type D50.9 Active 01205154 Problem Type 2 diabetes mellitus with hyperglycemia E11.65 Active 02896332 Problem Type 2 diabetes mellitus with foot ulcer E11.621 Active 979498922 Problem Type 2 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 Active 29606493 Problem Stenosis of carotid artery, unspecified laterality I65.29 Active 71328807 Problem Mixed hyperlipidemia E78.2 Active 823706238 Problem Coronary artery disease involving [place] coronary artery of [place] heart, angina presence unspecified I25.10 Active [id number] ALLERGIES No Information SOCIAL HISTORY Never Assessed PLAN OF CARE VITAL SIGNS MEDICATIONS Unknown [...]
--- OUTSIDE RECORDS SUMMARY | 2017-02-26 10:11 | XMS REPORT ---
Author Author MARY FRAGOSO [employer] Address Unknown Phone Unavailable Care Team Providers Care Amphibious Operations Officer Name Role Phone MARY FRAGOSO CP Unavailable Allergies, Adverse Reactions, Alerts Substance Reaction Event Type Triple Antibiotic Info Not Available Drug Allergy Penicillin V Potassium Info Not Available Drug Allergy Flonase bloody nose Drug Allergy Amoxicillin Info Not Available Drug Allergy Problems Problem Type Condition Code Onset Dates Condition Status Problem Coronary artery disease involving [place] coronary artery of [place] heart, angina presence unspecified I25.10 Active Problem Type 2 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 Active Problem Type 2 diabetes mellitus with foot ulcer E11.621 Active Problem Type 2 diabetes mellitus with diabetic polyneuropathy E11.42 Active Problem Anemia in other chronic diseases classified elsewhere D63.8 Active Problem Chronic kidney disease, stage 3 (moderate) N18.3 Active Problem Generalized osteoarthritis M15.9 Active Problem Essential hypertension I10 Active Problem 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 Active Problem Type 2 diabetes mellitus with hyperglycemia E11.65 Active Assessment Type 2 diabetes mellitus with diabetic polyneuropathy E11.42 Active Assessment Type 2 diabetes mellitus with foot ulcer E11.621 Active Assessment Type 2 diabetes mellitus with hyperglycemia E11.65 Active Assessment Encounter for immunization Z23 Active Problem Stenosis of carotid artery, unspecified laterality I65.29 Active Medications Medication Code System Code Instructions Start Date End Date Status Dosage Multivitamin [facility] [address]22 Jan 10, 2014 1 tablet by Oral route 1 time per day NovoLog Flexpen [facility] [address]-96 100 unit/mL July 18, 2014 18 units by Subcutaneous route 3 times per day Simbrinza [facility] [address]-33 1-0.2 % Ophthalmic Three times a day 1 drop into affected eye Valium [facility] [address]-15 5 MG Orally PRN September 24, 2014 1 tablet as needed 30 before procedure, can repeat dose if needed. Do not drive after taking. Plavix [facility] 41536468178 75 MG TAKE ONE TABLET BY MOUTH DAILY Vitamin D2 [facility] 27675-[address]30 50,000 unit Jan 10, 2014 take 1 capsule (50,000 unit) by oral route once weekly for 12 weeks Flaxseed Oil [facility] 88218-10700 Jun 21, 2011 by Oral route Alavert [facility] [address]-18 10 mg September 29, 2011 take 1 tablet (10 mg ) by oral route once daily Ferrous Sulfate [facility] [address]-31 325 mg (65 mg iron) Jun 20, 2012 1 tablet by Oral route 2 times per day Metoprolol Tartrate [facility] 69615999877 25 MG TAKE ONE TABLET BY MOUTH TWICE DAILY Biotin [facility] 348[address]119 10,000 mcg Jan 10, 2014 1 Capsule 3 times per day Cranberry [facility] 81321-01504 300 mg Jan 10, 2014 1 Tablet 3 times per day Neurontin [facility] [address]-36 100 MG Orally 3 times a day November 14, 2014 1 capsule Magnesium [facility] 118[address]662 Jun 21, 2011 by Oral route Ciprofloxacin HCl [facility] [address]-76 0.3 % Ophthalmic every 4 hrs 1 drop into affected eye while awake Fish Oil [facility] [address]-34 Jun 21, 2011 by Oral route Aspirin [facility] 70[address]-58334 81 mg September 29, 2011 take 1 tablet (81 mg) by oral route once daily Hydrocodone-Acetaminophen [facility] [address]-73 7.5-325 MG Orally 3 times a day November 14, 2014 1 tablet as needed Levemir FlexTouch [facility] [address]-41 100 unit/mL (3 mL) subcutaneous two times per day July 18, 2014 Inject 20 units Norvasc [facility] 55127716235 5 MG TAKE ONE TABLET BY MOUTH DAILY Folic Acid [facility] [address]-17 Jun 21, 2011 by Oral route Procedures Procedure Coding System Code Date FLUARIX QUAD (3 & UP)--2014 CPT-4 18230 Feb 25, 2015 SINGLE IMMUNIZATION ADMIN CPT-4 97703 Feb 25, 2015 GLYCATED HEMOGLOBIN TEST CPT-4 91931 Feb 25, 2015 [facility] VISIT ESTABLISHED PATIENT CPT-4 G0467 Feb 25, 2015 FOOT EXAM PERFORMED CPT-4 2028F Feb 25, 2015 Office Visit, Est Pt., Level 3 CPT-4 33004 Feb 25, 2015 Vital Signs Date/Time: Feb 25, 2015 Temperature 98.2 F Weight 344.9 lbs Height 66 in BMI 55.66 Index Blood Pressure Diastolic 60 mmHg Blood Pressure Systolic 130 mmHg Cardiac Monitoring Heart Rate 77 bpm Results Name Result Date Reference Range Unit Abnormality Flag A1C (IN HOUSE) Immunizations Vaccine Administration Date FLUARIX QUAD (3 & UP)-GSK-2014Feb 25, 2015 Summary Purpose eClinicalWorks Submission
--- OUTSIDE RECORDS SUMMARY | 2017-02-26 10:12 | XMS REPORT ---
Author Author MARY FRAGOSO [facility] Address [address] [place] [address] Care Team Providers Care Enginehouse Brakeman Name Role Phone MARY FRAGOSO Unavailable PROBLEMS Type Condition ICD9-CM Code [id number] Code Onset Dates Condition Status SNOMED Code Problem Generalized osteoarthritis M15.9 Active 603091084 Problem Essential hypertension I10 Active 52619976 Problem Aortic valve sclerosis I35.8 Active 32385663 Problem Presence of IVC filter Z95.828 Active 260515191 Problem Trochanteric bursitis of left hip M70.62 Active 403853522262774 Problem Type 2 diabetes mellitus with diabetic polyneuropathy E11.42 Active 308068818 Problem Chronic kidney disease, stage 3 (moderate) N18.3 Active 001742891 Problem Diarrhea, unspecified type R19.7 Active 29722974 Problem Anemia in other chronic diseases classified elsewhere D63.8 Active 333011659 Problem Decreased diffusion capacity R94.2 Active 91397796 Problem 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 Active 3670060 Problem Severe sleep apnea G47.30 Active 75020654 Problem Iron deficiency anemia, unspecified iron deficiency anemia type D50.9 Active 79523881 Problem Type 2 diabetes mellitus with hyperglycemia E11.65 Active 42032068 Problem Type 2 diabetes mellitus with foot ulcer E11.621 Active 198551645 Problem Type 2 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 Active 46826902 Problem Stenosis of carotid artery, unspecified laterality I65.29 Active 37439389 Problem Mixed hyperlipidemia E78.2 Active 139631249 Problem Coronary artery disease involving [place] coronary artery of [place] heart, angina presence unspecified I25.10 Active 0512103390083 ALLERGIES Substance Reaction Event Type Date Status Triple Antibiotic Unknown Drug Allergy Jul, Active Penicillin V Potassium Unknown Drug Allergy Jul, Active Flonase bloody nose Drug Allergy Jul, Active Amoxicillin Unknown Drug Allergy Jul, Active SOCIAL HISTORY Never Assessed PLAN OF CARE Activity Details Follow Up 3 Months Reason: VITAL SIGNS Height 66 in 2016-07-07 Weight 340.1 lbs 2016-07-07 Temperature 97.8 degrees Fahrenheit 2016-07-07 Heart Rate 74 bpm 2016-07-07 Respiratory Rate 22 2016-07-07 BMI 54.89 kg/m2 2016-07-07 Blood pressure systolic 138 mmHg 2016-07-07 Blood pressure diastolic 76 mmHg 2016-07-07 MEDICATIONS Medication Instructions Dosage Frequency Start Date End Date Duration Status Fish Oil 1000 MG Orally 3 times a day 1 capsule 8h Active Vitamin D3 5000 UNIT Active Norvasc 5 MG Orally Once a day 1 tablet 24h 90 days Active NovoLog Flexpen 100 unit/mL 18 units by Subcutaneous route 3 times per day Jul, Active Alavert 10 mg take 1 tablet (10 mg) by oral route once daily September, Active Simbrinza 1-0.2 % Ophthalmic Three times a day 1 drop into affected eye 8h Active Levemir Flexpen 100 UNIT/ML INJECT 20 UNITS SUBCUTANEOUSLY TWICE DAILY 38 Active Calcium Carbonate-Vitamin D3 600-400 MG-UNIT Orally 3 times a day 8h Active EQ Foot Powder - Externally daily on feet after washing apply Jul, Aug, 30 days Active Neurontin 100 MG Orally 3 times a day 1 capsule 8h 30 Active Nitroglycerin 0.[address] 1 tablet (0.4 mg) by sublingual route at the 1st sign of attack; may repeat every 5 min until relief; if pain persists after 3 tablets in 15 min, prompt medical attention is recommendedPRN Mar, Active Rosuvastatin Calcium 20 mg Orally Once a day 1 tablet 24h Apr, 90 days Active Metoprolol Tartrate 25 MG Orally Twice a day 1/2 tablet 12h 90 days Active Magnesium Oxide 250 MG Orally Once a day 1 tablet 24h Active Hydrocodone-Acetaminophen 7.5-325 MG Orally 3 times a day 1 tablet as needed 8h Nov, Active Aspirin 81 mg take 1 tablet (81 mg) by oral route once daily September, Active Multivitamin Adult - Active Lomotil 2.5-0.025 MG Orally Four times a day 1 tablet as needed 6h Active Arginine 1000 MG Orally 3 times a day 2 tablets 8h Active Flaxseed Oil 1000 MG Active Plavix 75 MG TAKE ONE TABLET BY MOUTH DAILY 30 Active RESULTS Name Result Date Reference Range A1C (IN HOUSE) 2016-07-07 A1C IN HOUSE 9.0 4.3 - 5.6 % Previous A1c 9.2 Lot [id number] Exp date PROCEDURES Procedure Date Ordered Result Body Site GLYCATED HEMOGLOBIN TEST July 07, 2016 [facility] VISIT ESTABLISHED PATIENT July 07, 2016 IMMUNIZATIONS No Known Immunizations MEDICAL (GENERAL) HISTORY [...]
--- OUTSIDE RECORDS SUMMARY | 2017-02-26 10:12 | XMS REPORT ---
Author Author MIGUEL GÓMEZ [facility] eClinicalWorks Address Unknown Phone Unavailable Care Team Providers Care Retirement Administrator Name Role Phone MIGUEL GÓMEZ CP Unavailable Allergies, Adverse Reactions, Alerts Substance Reaction Event Type Triple Antibiotic Info Not Available Drug Allergy Penicillin V Potassium Info Not Available Drug Allergy Flonase bloody nose Drug Allergy Amoxicillin Info Not Available Drug Allergy Problems Problem Type Condition Code Onset Dates Condition Status Problem Essential hypertension I10 Active Problem Type 2 diabetes mellitus with hyperglycemia E11.65 Active Problem Generalized osteoarthritis M15.9 Active Problem Type 2 diabetes mellitus with diabetic polyneuropathy E11.42 Active Problem Anemia in other chronic diseases classified elsewhere D63.8 Active Problem Chronic kidney disease, stage 3 (moderate) N18.3 Active Problem Severe sleep apnea G47.30 Active Problem 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 Active Problem Mixed hyperlipidemia E78.2 Active Problem Iron deficiency anemia, unspecified iron deficiency anemia type D50.9 Active Problem Stenosis of carotid artery, unspecified laterality I65.29 Active Problem Coronary artery disease involving [place] coronary artery of [place] heart, angina presence unspecified I25.10 Active Assessment Pneumonia due to infectious organism, unspecified laterality, unspecified part of lung J18.9 Active Problem Type 2 diabetes mellitus with foot ulcer E11.621 Active Assessment Type 2 diabetes mellitus with hyperglycemia E11.65 Active Problem Type 2 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 Active Medications Medication Code System Code Instructions Start Date End Date Status Dosage Hydrocodone-Acetaminophen [facility] [address]-31 7.5-325 MG Orally 3 times a day November 14, 2014 1 tablet as needed Rosuvastatin Calcium [facility] [address]-56 20 mg Orally Once a day Apr 21, 2015 1 tablet Levemir Flexpen [facility] 52973308703 100 UNIT/ML INJECT 20 UNITS SUBCUTANEOUSLY TWICE DAILY Calcium Carbonate-Vitamin D3 [facility] [address]-65 600-400 MG-UNIT Orally 3 times a day not defined Arginine [facility] [address]-11 1000 MG Orally 3 times a day 2 tablets Magnesium Oxide [facility] [address] 250 MG Orally Once a day 1 tablet Vitamin D3 [facility] [address]-33 5000 UNIT Orally not defined Aspirin [facility] [address] 81 mg September 29, 2011 take 1 tablet (81 mg) by oral route once daily Neurontin [facility] [address]-55 100 MG Orally 3 times a day November 14, 2014 1 capsule Norvasc [facility] 82137740719 5 MG TAKE ONE TABLET BY MOUTH DAILY Nitroglycerin [facility] [address]-88 0.4 mg Mar 09, 2012 place 1 tablet (0.4 mg) by sublingual route at the 1st sign of attack; may repeat every 5 min until relief; if pain persists after 3 tablets in 15 min, prompt medical attention is recommendedPRN Multivitamin Adult [facility] [address] - Orally not defined Vitamin D2 [facility] [address] 50,000 unit Jan 10, 2014 take 1 capsule (50,000 unit) by oral route once weekly for 12 weeks PredniSONE [facility] [address]-62 20 mg Orally Once a day for 5 days 1 tablet Simbrinza [facility] [address]-47 1-0.2 % Ophthalmic Three times a day 1 drop into affected eye Alavert [facility] [address]-50 10 mg September 29, 2011 take 1 tablet (10 mg ) by oral route once daily Plavix [facility] 97135832105 75 MG TAKE ONE TABLET BY MOUTH DAILY NovoLog Flexpen [facility] [address]-83 100 unit/mL July 18, 2014 18 units by Subcutaneous route 3 times per day Levofloxacin [facility] [address]-49 750 MG Orally Once a day for 7 days 1 tablet Lomotil [facility] [address]-44 2.5-0.025 MG Orally Four times a day 1 tablet as needed Metoprolol Tartrate [facility] 36497457532 25 MG TAKE ONE TABLET BY MOUTH TWICE DAILY Flaxseed Oil [facility] [address]-11 1000 MG Orally not defined Fish Oil [facility] [address]-22 1000 MG Orally 3 times a day 1 capsule Procedures Procedure Coding System Code Date [facility] VISIT ESTABLISHED PATIENT CPT-4 G0467 Jan 25, 2016 Office Visit, Est Pt., Level 4 CPT-4 63213 Jan 25, 2016 MEASURE BLOOD OXYGEN LEVEL CPT-4 37395 Jan 25, 2016 Vital Signs Date/Time: Jan 25, 2016 Cardiac Monitoring Heart Rate 64 bpm Weight 350 lbs Height 66 in BMI 56.49 Index Oximetry 98 % Blood Pressure Diastolic 70 mmHg Blood Pressure Systolic 122 mmHg Results No Known Results Summary Purpose eClinicalWorks Submission
--- OUTSIDE RECORDS SUMMARY | 2017-02-26 10:12 | XMS REPORT ---
Author Author MARY FRAGOSO [facility] eClinicalWorks Address Unknown Phone Unavailable Care Team Providers Care Livestock Commission Agent Name Role Phone MARY FRAGOSO CP Unavailable [...] mellitus with diabetic polyneuropathy E11.42 Active Problem Diarrhea, unspecified type R19.7 Active Problem Iron deficiency anemia, unspecified iron deficiency anemia type D50.9 Active Problem Severe sleep apnea G47.30 Active Problem Anemia in other chronic diseases classified elsewhere D63.8 Active Problem Mixed hyperlipidemia E78.2 Active Problem Coronary artery disease involving [place] coronary artery of [place] heart, angina presence unspecified I25.10 Active Problem Type 2 diabetes mellitus with foot ulcer E11.621 Active Assessment Encounter for immunization Z23 Active Problem Type 2 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 Active Problem Stenosis of carotid artery, unspecified laterality I65.29 Active Problem Essential hypertension I10 Active Medications No Known Medications Procedures Procedure Coding System Code Date SINGLE IMMUNIZATION ADMIN CPT-4 92917 Feb 25, 2016 PCV 13 CPT-4 52968 Feb 25, 2016 Results No Known Results Immunizations Vaccine Administration Date PCV 13 Feb 25, 2016 Summary Purpose eClinicalWorks Submission
--- OUTSIDE RECORDS SUMMARY | 2017-02-26 10:12 | XMS REPORT ---
Author Author MARY FRAGOSO [employer] Address Unknown Phone Unavailable Care Team Providers Care Bit And Shank Department Supervisor Name Role Phone MARY FRAGOSO CP Unavailable [...] E78.2 Active Problem Coronary artery disease involving [place] coronary artery of [place] heart, angina presence unspecified I25.10 Active Problem Type 2 diabetes mellitus with foot ulcer E11.621 Active Problem Type 2 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 Active Problem Stenosis of carotid artery, unspecified laterality I65.29 Active Problem Essential hypertension I10 Active Medications No Known Medications Results No Known Results Summary Purpose eClinicalWorks Submission
--- OUTSIDE RECORDS SUMMARY | 2017-02-26 10:12 | XMS REPORT ---
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 Active 13261554 Problem Severe sleep apnea G47.30 Active 19824821 Problem Decreased diffusion capacity R94.2 Active 73469386 Problem Diarrhea, unspecified type R19.7 Active 51702828 Problem Chronic kidney disease, stage 3 (moderate) N18.3 Active 169685595 Problem Mixed hyperlipidemia E78.2 Active 292644888 Problem Iron deficiency anemia, unspecified iron deficiency anemia type D50.9 Active 64245560 Problem Type 2 diabetes mellitus with diabetic polyneuropathy E11.42 Active 296196309 Problem Anemia in other chronic diseases classified elsewhere D63.8 Active 913223837 Problem Stenosis of carotid artery, unspecified laterality I65.29 Active 09777174 Problem Coronary artery disease involving [place] coronary artery of [place] heart, angina presence unspecified I25.10 Active 8631644322113 Problem Essential hypertension I10 Active 63028150 Problem Generalized osteoarthritis M15.9 Active 205903638 Problem Type 2 diabetes mellitus with foot ulcer E11.621 Active 128045896 Problem Type 2 diabetes mellitus with hyperglycemia E11.65 Active 18746354 Problem Type 2 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 Active 26941394 Problem 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
--- OUTSIDE RECORDS SUMMARY | 2017-02-26 10:12 | XMS REPORT ---
Author Author CLARITZA HOLMAN [facility] eClinicalWorks Address Unknown Phone Unavailable Care Team Providers Care Senior Energy Market Coordinator Name Role Phone CLARITZA HOLMAN CP Unavailable Allergies No Known Allergies Problems [...] E78.2 Active Problem Coronary artery disease involving [place] coronary artery of [place] heart, angina presence unspecified I25.10 Active Problem Type 2 diabetes mellitus with foot ulcer E11.621 Active Problem Type 2 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 Active Problem Stenosis of carotid artery, unspecified laterality I65.29 Active Problem Essential hypertension I10 Active Medications No Known Medications Results No Known Results Summary Purpose eClinicalWorks Submission
[2017-02-26 10:39] LABS: BASOPHILS % (AUTO) 0 % (0-10); EOSINOPHILS # (AUTO) 0.1 10^3/uL (0.0-0.3); EOSINOPHILS % (AUTO) 2 % (0-10); LYMPHOCYTES # (AUTO) 1.6 X 10^3 (1.0-4.0); LYMPHOCYTES % (AUTO) 24 % (12-44); MEAN CORPUSCULAR HEMOGLOBIN 29 PG (25-34); MEAN CORPUSCULAR HGB CONC 31 G/DL (32-36); MEAN CORPUSCULAR VOLUME 91 FL (80-99); MEAN PLATELET VOLUME 9.5 FL (7.4-10.4); MONOCYTES # (AUTO) 0.7 X 10^3 (0.0-1.0); MONOCYTES % (AUTO) 10 % (0-12); NEUTROPHILS # (AUTO) 4.4 X 10^3 (1.8-7.8); NEUTROPHILS % (AUTO) 65 % (42-75); PLATELET COUNT 280 10^3/uL (130-400); RED BLOOD COUNT 3.79 10^6/uL (4.35-5.85); RED CELL DISTRIBUTION WIDTH 14.1 % (10.0-14.5); WHITE BLOOD COUNT 6.7 10^3/uL (4.3-11.0)
--- NOTE | 2017-02-26 10:42 | ED Neurological Problem ---
General Stated Complaint: STROKE LIKE SYMPTOMS Source: patient, family, other Exam Limitations: no limitations History of Present Illness Time seen by provider: 10:07 Initial Comments Here by POAmanda with nephew and a friend. Apparently she had driven to the [facility] from home this morning and became confused afterwards. Her friend found her sitting in the truck. She had actually called her friend over 1 he was walking by to get him to assist her with taking off his seatbelt. She apparently couldn't figure out how to do that. He was able to get in the truck and disconnect the seatbelt. She stated that she really needed to urinate. Ultimately there able to get her out of the truck and she was able to get inside and go to the bathroom with relatively little assistance. He then decided to bring her to the emergency department. Patient states that she is having some right arm numbness and pain as well as some chest pain and pain into the right side of the neck. This is been intermittent for a couple days and she had an episode yesterday that resolved after a few minutes. Does have significant cardiac history with heart stents. Patient is diabetic. Reports taking her meds as directed. That being said, her oxygen saturation was apparently low in the 60s when they checked it in the truck earlier. She does have portable oxygen device available and with her. Patient is on aspirin and Plavix. She is diabetic. Timing/Duration: 1 hour, waxing and waning Severity: moderate Associated Symptoms: confusion, No fever/chills, No loss of consciousness, No nausea/vomiting, paresthesia (right arm), No slurred speech, trouble walking, weakness Allergies and Home Medications Allergies Coded Allergies: Bacitracin Zinc (Unverified Allergy, Unknown, 11/08/11) Penicillins (Unverified Allergy, Unknown, HAS RECEIVED ROCEPHIN DURING PREVIOUS ADMIT, 11/09/11) bacitracin (Unverified Allergy, Unknown, 11/08/11) colistimethate sodium (Unverified Allergy, Unknown, 11/08/11) gramicidin D (Unverified Allergy, Unknown, 11/08/11) neomycin sulfate (Unverified Allergy, Unknown, 11/08/11) polymyxin B (Unverified Allergy, Unknown, 11/08/11) polymyxin B sulfate (Unverified Allergy, Unknown, 11/08/11) pramoxine HCl (Unverified Allergy, Unknown, 11/08/11) Home Medications Amlodipine Besylate 5 Mg Tablet, 5 MG PO HS, (Reported) Arginine Hcl 1,000 Mg Tablet, 2,000 MG PO TID, (Reported) TAKE 2 (1000MG) TABLET Aspirin 81 Mg Tablet.dr, 81 MG PO HS, (Reported) Brinzolamide/Brimonidine Tart 8 Ml Drops.susp, 3 DROPS OU BID, (Reported) LAST FILLED 08/18/15 #8ML Calcium Carbonate/Vitamin D3 1 Each Tablet, 1 TAB PO TID, (Reported) Cholecalciferol 5,000 Unit Capsule, 5,000 UNIT PO DAILY, (Reported) Clopidogrel Bisulfate 75 Mg Tablet, 75 MG PO HS, (Reported) Cranberry Conc/C/Bacill Coag 1 Each Tablet, 1 TAB PO DAILY, (Reported) Diphenoxylate Hcl/Atrop Sulf 1 Tab Tablet, 2 TAB PO TID PRN for DIARRHEA, ( Reported) NEEDED FOR DIARRHEA Flaxseed Oil 1,000 Mg Capsule, 1,000 MG PO DAILY, (Reported) Gabapentin 100 Mg Cap, 100 MG PO TID PRN for PAIN, (Reported) LAST FILLED 08/07/15 #90 Hydrocodone/Acetaminophen 1 Each Tablet, 1 TAB PO TID PRN for PAIN, (Reported) Insulin Aspart 10 Unit/0.1 Ml Vial, 18 UNIT SQ TID, (Reported) LAST FILLED 09/22/15 #15 ML Insulin Determir 100 U/Ml Insuln.pen, 20 UNITS SQ BID, (Reported) LAST FILLED 09/22/15 #15 ML Levofloxacin 750 Mg Tablet, 750 MG PO DAILY, #7 Ref 0 Prescribed by: MIGUEL GÓMEZ on 01/22/16 1245 Loratadine 10 Mg/Tab Tab.rapdis, 10 MG PO HS, (Reported) Magnesium Oxide 250 Mg Tablet, 250 MG PO DAILY, (Reported) Metoprolol Tartrate 25 Mg Tablet, 25 MG PO BID, (Reported) LAST FILLED 08/07/15 #60 Multivitamin 1 Each Tablet, 1 TAB PO DAILY, (Reported) Nitroglycerin 0.4 Mg Tab, 0 SL PRN PRN for CHEST PAIN, (Reported) 1 TAB EVERY 5 MINUTES X 3 DOSES NEEDED FOR CHEST PAIN [place]-3/Dha/Epa/Fish Oil 1,000 Mg Capsule, 1,000 MG PO TID, (Reported) Prednisone 20 Mg Tab, 20 MG PO DAILY, #5 Ref 0 Prescribed by: MIGUEL GÓMEZ on 01/22/16 1245 Rosuvastatin Calcium 20 Mg Tablet, 20 MG PO HS, (Reported) LAST FILLED 09/22/15 #90 Vitamin B Complex & Vit C No.4 150 Mg Tablet, 150 MG PO DAILY, (Reported) [Biotin] , 1 CAP PO DAILY, (Reported) Constitutional: see HPI, No chills, No fever Eyes: No Symptoms Reported Ears, Nose, Mouth, Throat: no symptoms reported Respiratory: see HPI, No cough, No short of breath, No wheezing Cardiovascular: chest pain, edema, No palpitations Gastrointestinal: abdominal pain, No nausea, No vomiting Genitourinary: no symptoms reported Musculoskeletal: see HPI, muscle pain, neck pain Skin: no symptoms reported Psychiatric/Neurological: See HPI, Numbness, Weakness Endocrine: No Symptoms Reported All Other Systems Reviewed Negative Unless Noted: Yes Past Buryovq-Zukhgb-Vsiuzy Hx Patient Social History Alcohol Use: Denies Use Recreational Drug Use: No Smoking Status: Never a Smoker Recent Hopitalizations: Yes Immunizations Up To Date Tetanus Booster (TDap): Unknown PED Vaccines UTD: No Date of Pneumonia Vaccine: Mar 25, 2011 Date of Influenza Vaccine: Feb 06, 2014 Seasonal Allergies Seasonal Allergies: Yes Surgeries Surgeries: Gallbladder, Hysterectomy Respiratory Respiratory Disorders: Pneumonia Reproductive System Hx Reproductive Disorders: No Sexually Transmitted Disease: No HIV/AIDS: No Female Reproductive Disorders: Denies 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 Genitourinary Genitourinary Disorders: Renal Failure Gastrointestinal Gastrointestinal Disorders: Chronic Diarrhea, Gall Bladder Disease Musculoskeletal Musculoskeletal Disorders: Arthritis, Chronic Back Pain, Fractures Endocrine Endocrine Disorders: Diabetes, Insulin dep HEENT HEENT Disorders: Cataract Loss of Vision: Denies Hearing Impairment: Denies Reviewed Nursing Assessment Reviewed/Agree w Nursing PMH: Yes Family Medical History Family Medial History: Alzheimer's disease 19 MOTHER Cardiovascular disease Cataract 19 MOTHER Cataracts Congestive heart failure 19 FATHER Dementia 19 MOTHER Dementia 19 MOTHER Diabetes mellitus Family history: Allergy 19 FATHER 19 MOTHER Family history: Alzheimer's disease 19 MOTHER Family history: Cardiovascular disease 19 MOTHER Family history: Diabetes mellitus G8 BROTHER G8 BROTHER G8 SISTER Family history: Hypertension 19 FATHER Hearing loss G8 BROTHER Heart disease 19 FATHER G8 BROTHER G8 BROTHER G8 SISTER Hypertension 19 FATHER 19 MOTHER G8 BROTHER Infertile 19 FATHER 19 MOTHER G8 BROTHER G8 BROTHER G8 SISTER Myocardial infarction 19 FATHER Myocardial infarction 19 FATHER Psychotic disorder 19 FATHER Severe allergy G8 BROTHER G8 BROTHER Stroke 19 FATHER Physical Exam Vital Signs Vital Sign - Last 12Hours 02/26/17 10:06 Temp 98.1 Pulse 128 Resp 26 B/P (MAP) 157/86 Pulse Ox 98 O2 Delivery Room Air Capillary Refill : General Appearance: WD/WN, no apparent distress HEENT: PERRL/EOMI, pharynx normal Neck: full range of motion, supple Respiratory: lungs clear, normal breath sounds Cardiovascular: regular rate, rhythm, no murmur Peripheral Pulses: 2+ Dorsalis Pedis (R), 2+ Left Dors-Pedis (L), 2+ Radial Pulses (R), 2+ Radial Pulses (L) Gastrointestinal: non tender, soft Back: normal inspection, no CVA tenderness, no vertebral tenderness Extremities: non-tender, normal inspection Neurologic/Psychiatric: no motor/sensory deficits, alert, normal mood/affect, oriented x 3 Crainal Nerves: normal hearing, normal speech, PERRL Coordination/Gait: normal finger to nose Motor/Sensory: no motor deficit, no sensory deficit, no pronator drift Skin: normal color, warm/dry Progress/Results/Core Measures Results/Orders Lab Results Laboratory Tests Test 02/26/17 10:31 02/26/17 11:20 Range/Units White Blood Count 6.7 4.3-11.0 10^3/uL Red Blood Count 3.79 L 4.35-5.85 10^6/uL Hemoglobin 10.8 L 11.5-16.0 G/DL Hematocrit 35 35-52 % Mean Corpuscular Volume 91 80-99 FL Mean Corpuscular Hemoglobin 29 25-34 PG Mean Corpuscular Hemoglobin Concent 31 L 32-36 G/DL Red Cell Distribution Width 14.1 10.0-14.5 % Platelet Count 280 130-400 10^3/uL Mean Platelet Volume 9.5 7.4-10.4 FL Neutrophils (%) (Auto) 65 42-75 % Lymphocytes (%) (Auto) 24 12-44 % Monocytes (%) (Auto) 10 0-12 % Eosinophils (%) (Auto) 2 0-10 % Basophils (%) (Auto) 0 0-10 % Neutrophils # (Auto) 4.4 1.8-7.8 X 10^3 Lymphocytes # (Auto) 1.6 1.0-4.0 X 10^3 Monocytes # (Auto) 0.7 0.0-1.0 X 10^3 Eosinophils # (Auto) 0.1 0.0-0.3 10^3/uL Basophils # (Auto) 0.0 0.0-0.1 10^3/uL Prothrombin Time 12.9 12.2-14.7 SEC INR Comment 1.0 0.8-1.4 Activated Partial Thromboplast Time 31 24-35 SEC D-Dimer 0.50 H 0.00-0.49 UG/ML Sodium Level 139 135-145 MMOL/L Potassium Level 4.6 3.6-5.0 MMOL/L Chloride Level 103 98-107 MMOL/L Carbon Dioxide Level 26 21-32 MMOL/L Anion Gap 10 5-14 MMOL/L Blood Urea Nitrogen 47 H 7-18 MG/DL Creatinine 2.16 H 0.60-1.30 MG/DL Estimat Glomerular Filtration Rate 23 BUN/Creatinine Ratio 22 Glucose Level 190 H 70-105 MG/DL Glucometer 184 H 70-110 MG/DL Calcium Level 9.4 8.5-10.1 MG/DL Total Bilirubin 0.3 0.1-1.0 MG/DL Aspartate Amino Transf (AST/SGOT) 13 5-34 U/L Alanine Aminotransferase (ALT/SGPT) 12 0-55 U/L Alkaline Phosphatase 87 40-136 U/L Troponin I < 0.30 <0.30 NG/ML Total Protein 7.4 6.4-8.2 GM/DL Albumin 3.5 3.2-4.5 GM/DL Urine Color YELLOW Urine Clarity SLIGHTLY CLOUDY Urine pH 5 5-9 Urine Specific [place] 1.015 L 1.016-1.022 Urine Protein 3+ H NEGATIVE Urine Glucose (UA) NEGATIVE NEGATIVE Urine Ketones NEGATIVE NEGATIVE Urine Nitrite POSITIVE H NEGATIVE Urine Bilirubin NEGATIVE NEGATIVE Urine Urobilinogen NORMAL NORMAL MG/DL Urine Leukocyte Esterase 2+ H NEGATIVE Urine RBC (Auto) 2+ H NEGATIVE Urine RBC NONE /HPF Urine WBC 50-100 H /HPF Urine Squamous Epithelial Cells 5-10 /HPF Urine Crystals NONE /LPF Urine Bacteria FEW H /HPF Urine Casts NONE /LPF Urine Mucus NEGATIVE /LPF Urine Culture Indicated YES My Orders Orders - DEISY WARNER MD Cbc With Automated Diff (02/26/17 10:15) Protime With Inr (02/26/17 10:15) Partial Thromboplastin Time (02/26/17 10:15) Comprehensive Metabolic Panel (02/26/17 10:15) Fibrin Degradation Products (02/26/17 10:15) Troponin I (02/26/17 10:15) Ua Culture If Indicated (02/26/17 10:15) Chest 1 View, Ap/Pa Only (02/26/17 10:15) Ekg Tracing (02/26/17 10:15) Nothing By Mouth (02/26/17 Lunch) Accucheck Stat ONCE (02/26/17 10:15) Saline Lock/Iv-Start (02/26/17 10:15) Vital Signs - Stroke Q15M (02/26/17 10:15) Ct Head Wo-R/O Stroke (02/26/17 10:15) O2 (02/26/17 10:15) Intake & Output 06,14,22 (02/26/17 10:15) Monitor-Rhythm Ecg Trace Only (02/26/17 10:15) Dysphagia Screening Tool (02/26/17 10:15) Ns Iv 1000 Ml (Sodium Chloride 0.9%) (02/26/17 11:15) Urine Culture (02/26/17 11:20) Blood Culture (02/26/17 11:57) Lactic Acid Analyzer (02/26/17 11:57) Ceftriaxone Injection (Rocephin Injectio (02/26/17 12:30) Vital Signs/I&O Vital Sign - Last 12Hours 02/26/17 10:06 Temp 98.1 Pulse 128 Resp 26 B/P (MAP) 157/86 Pulse Ox 98 O2 Delivery Room Air Point of Care Testing Finger Stick Blood Glucose: 184 Blood Glucose Action Taken: rn notified Progress Note : Progress Note Seen and evaluated. IV, labs, EKG and chest x-ray ordered. Patient is on aspirin and Plavix. Reports taking meds as directed. We will go ahead and evaluate for stroke like symptoms as well as get CT of the head. Stroke scale negative. Does not qualify for TPA due to low stroke scale and Plavix use. Dysphagia screen ordered. Patient states overall better now. Monitor patient. 1215: Patient remained without alterations in mental status throughout the ER stay. She was able to ambulate to the bathroom on her own accord. Urine markedly positive for urinary tract infection which may be the cause of her confusion earlier. Patient does have significant cardiac history and did have chest pain so we will need to continue evaluation on that. I did discuss the case with Dr. Byrd and she accepts patient for admission, observation status. Blood cultures and lactic acid ordered. Rocephin 1 g IV after blood cultures drawn. Patient and family agree with plan. ECG Initial ECG Impression Date: Feb 26, 2017 Initial ECG Impression Time: 10:14 Initial ECG Rate: 62 Initial ECG Rhythm: Normal Sinus Initial ECG Comparisson: Unchanged Comment Sinus rhythm with normal axis. No evidence of ST elevation RI. Similar to previous of 26 March 2014. Interpreted by me. Diagnostic Imaging Diagonstic Imaging: CT Plain Films/CT/US/NM/MRI: head Comments [place]IA [place], [place] NAME: CEDRICK AL[facility]ERTS [facility] REC#: [id number] PT STATUS: REG ER : 1950 PHYSICIAN: DEISY WARNER MD ADMIT DATE: 02/26/17/ER Draft Date of Exam:02/26/17 CT HEAD WO-R/O STROKE INDICATION: Dizziness. TECHNIQUE: Multiple contiguous axial images were obtained through the brain without the use of intravenous contrast. COMPARISON: Comparison made with prior examination 12/01/2011. FINDINGS: There is prominence of the ventricles and sulci. There is some chronic microvascular ischemic disease. This appears to have progressed somewhat since prior examination. There is no hydrocephalus. There is no midline shift. There is no intracranial mass, hemorrhage or extra-axial fluid collection. Calvarium is intact. The sinuses and mastoid air cells are clear. There is no evidence of transcortical infarct. IMPRESSION: 1. Atrophy and some moderate chronic microvascular ischemic disease which appears to have progressed somewhat since prior examination. 2. No other acute intracranial abnormality. Dictated on workstation # [id number] Dict: 02/26/17 1053 Trans: 02/26/17 1101 TS [id number] Interpreted by: CHIQUITA MILLER MD Electronically signed by: [facility]omen[facility] Imaging: Xray Plain Films/CT/US/NM/MRI: chest Comments [place], [place] NAME: CEDRICK [facility]ERTS [facility] REC#: [id number] PT STATUS: REG ER : 1950 PHYSICIAN: DEISY WARNER MD ADMIT DATE: 02/26/17/ER Draft Date of Exam:02/26/17 CHEST 1 VIEW, AP/PA ONLY INDICATION: Dizziness. Speech difficulties. Possible stroke. COMPARISON: 01/21/2016. FINDINGS: Upright portable view of the chest is obtained. Heart size is normal. There is a left Port-A-Cath present, the tip of which appears to be proximal superior vena cava, unchanged from the prior study. There is no pneumothorax, mediastinal widening or pleural fluid. The lungs are clear. IMPRESSION: No acute abnormalities demonstrated. No significant interval change from the prior study. Dictated on workstation # [id number] Dict: 02/26/17 1054 Trans: 02/26/17 1101 [facility] [id number] Interpreted by: MARY ANN HELM DO Electronically signed by: Departure Impression Impression: Primary Impression: Urinary tract infection Qualified Codes: N30.00 - Acute cystitis without hematuria Additional Impression: Chest pain Qualified Codes: R07.9 - Chest pain, unspecified Disposition: ADMITTED INPATIENT Condition: Stable Admissions Decision to Admit Reason: Admit from ER (General) Decision to Admit/Date: Feb 26, 2017 Time/Decision to Admit Time: 12:15 Departure-Patient Inst. Referrals: MARY FRAGOSO MD (PCP/Family) Primary Care Physician DEISY WARNER MD Feb 26, 2017 10:42
[2017-02-26 10:49] LABS: PROTHROMBIN TIME PATIENT 12.9 SEC (12.2-14.7)
[2017-02-26 10:59] LABS: ALANINE AMINOTRANSFERASE 12 U/L (0-55); ALBUMIN 3.5 GM/DL (3.2-4.5); ANION GAP 10 MMOL/L (5-14); ASPARTATE AMINO TRANSFERASE 13 U/L (5-34); BILIRUBIN,TOTAL 0.3 MG/DL (0.1-1.0); BLOOD UREA NITROGEN 47 MG/DL (7-18); BUN/CREATININE RATIO 22; CALCIUM 9.4 MG/DL (8.5-10.1); CARBON DIOXIDE 26 MMOL/L (21-32); CHLORIDE 103 MMOL/L (98-107); CREATININE SERUM 2.16 MG/DL (0.60-1.30); GFR ESTIMATED 23; GLUCOSE 190 MG/DL (70-105); POTASSIUM 4.6 MMOL/L (3.6-5.0); SODIUM 139 MMOL/L (135-145); TOTAL PROTEIN 7.4 GM/DL (6.4-8.2)
--- NOTE | 2017-02-26 11:02 | Diagnostic Imaging Report ---
INDICATION: Dizziness. TECHNIQUE: Multiple contiguous axial images were obtained through the brain without the use of intravenous contrast. COMPARISON: Comparison made with prior examination 12/01/2011. FINDINGS: There is prominence of the ventricles and sulci. There is some chronic microvascular ischemic disease. This appears to have progressed somewhat since prior examination. There is no hydrocephalus. There is no midline shift. There is no intracranial mass, hemorrhage or extra-axial fluid collection. Calvarium is intact. The sinuses and mastoid air cells are clear. There is no evidence of transcortical infarct. IMPRESSION: 1. Atrophy and some moderate chronic microvascular ischemic disease which appears to have progressed somewhat since prior examination. 2. No other acute intracranial abnormality. Dictated by: Dictated on workstation # [id number]
--- NOTE | 2017-02-26 11:02 | Diagnostic Imaging Report ---
INDICATION: Dizziness. Speech difficulties. Possible stroke. COMPARISON: 01/21/2016. FINDINGS: Upright portable view of the chest is obtained. Heart size is normal. There is a left Port-A-Cath present, the tip of which appears to be proximal superior vena cava, unchanged from the prior study. There is no pneumothorax, mediastinal widening or pleural fluid. The lungs are clear. IMPRESSION: No acute abnormalities demonstrated. No significant interval change from the prior study. Dictated by: Dictated on workstation # [id number]
[2017-02-26 11:05] LABS: TROPONIN I < 0.30 NG/ML (<0.30)
[2017-02-26] MEDS ORDERED: NS IV 1000 ML 1,000 ML IV ONE (11:15)
[2017-02-26 11:36] LABS: BILIRUBIN,URINE NEGATIVE (NEGATIVE); KETONES,URINE NEGATIVE (NEGATIVE); LEUKOCYTE ESTERASE ,URINE 2+ (NEGATIVE); NITRITE,URINE POSITIVE (NEGATIVE); PH,URINE 5 (5-9); PROTEIN,URINE 3+ (NEGATIVE); UROBILINOGEN,URINE NORMAL (NORMAL)
[2017-02-26 11:46] LABS: WBC,URINE 50-100 /HPF
[2017-02-26] MEDS ORDERED: cefTRIAXone INJECTION 1,000 MG in NS (IVPB) 50 ML IV ONE (12:30)
--- OUTSIDE RECORDS SUMMARY | 2017-02-26 12:33 | XMS REPORT | Clinical Summary ---
Author Author [facility] Organization [facility] Address Unknown Phone Unavailable Care Team Providers [employer] Driver Name Role Phone PCP Unavailable Source Comments Some departments are not documenting in the electronic medical record. If you do not see the information that you expected, contact Release of Information in the Health Information Management department at [phone] for further assistance in locating additional records.[facility] Allergies Not on File Current Medications Not [...]
[2017-02-26 13:30] VITALS: BP 174/89
[2017-02-26] MEDS ORDERED: NITROGLYCERIN 0.4 MG SL TABS BTL 25'S SL PRN (14:00)
[2017-02-26] MEDS ORDERED: morphine INJ 4 MG/ML 1 ML (VIAL/SYRINGE) IVP PRN (14:00)
[2017-02-26] MEDS: NS IV 1000 ML 1,000 ML IV SCH (14:32)
[2017-02-26 15:01] LABS: MYOGLOBIN SERUM 161.3 NG/ML (10.0-92.0)
[2017-02-26 16:44] VITALS: BP 168/88
[2017-02-26] MEDS: inSUlin (REGULAR) HUMAN 1 UNIT/0.01 ML (CHARGE PER UNIT) SC SCH ×2 (17:30→21:37)
[2017-02-26 20:00] VITALS: BP 182/81
[2017-02-27 00:38] VITALS: BP 176/79
[2017-02-27 04:23] VITALS: BP 165/77
[2017-02-27 05:42] LABS: BASOPHILS % (AUTO) 0 % (0-10); EOSINOPHILS # (AUTO) 0.1 10^3/uL (0.0-0.3); EOSINOPHILS % (AUTO) 1 % (0-10); LYMPHOCYTES % (AUTO) 28 % (12-44); MEAN CORPUSCULAR HEMOGLOBIN 29 PG (25-34); MEAN CORPUSCULAR HGB CONC 31 G/DL (32-36); MEAN CORPUSCULAR VOLUME 92 FL (80-99); MEAN PLATELET VOLUME 9.6 FL (7.4-10.4); MONOCYTES # (AUTO) 0.8 X 10^3 (0.0-1.0); MONOCYTES % (AUTO) 12 % (0-12); NEUTROPHILS # (AUTO) 4.1 X 10^3 (1.8-7.8); NEUTROPHILS % (AUTO) 58 % (42-75); PLATELET COUNT 278 10^3/uL (130-400); RED BLOOD COUNT 3.63 10^6/uL (4.35-5.85); RED CELL DISTRIBUTION WIDTH 14.2 % (10.0-14.5); WHITE BLOOD COUNT 7.1 10^3/uL (4.3-11.0)
[2017-02-27 06:03] LABS: CALCIUM 8.8 MG/DL (8.5-10.1); CREATININE SERUM 2.05 MG/DL (0.60-1.30)
[2017-02-27] MEDS: inSUlin (REGULAR) HUMAN 1 UNIT/0.01 ML (CHARGE PER UNIT) SC SCH ×2 (06:45→12:56)
[2017-02-27] MEDS ORDERED: METO-333 PO (08:13)
[2017-02-27] MEDS ORDERED: CHOL5000 PO (08:13)
[2017-02-27] MEDS ORDERED: TURM538C PO (08:13)
[2017-02-27] MEDS ORDERED: ROSU20TA28 PO (08:13)
[2017-02-27] MEDS ORDERED: LOSA100T28 PO (08:13)
[2017-02-27] MEDS ORDERED: MAGN250T35 PO (08:13)
[2017-02-27] MEDS ORDERED: INSU100I29 SC (08:13)
[2017-02-27] MEDS ORDERED: MULT-35 PO (08:13)
[2017-02-27] MEDS ORDERED: INSU100I14 SC (08:13)
[2017-02-27] MEDS ORDERED: OMEG-160 PO (08:13)
[2017-02-27] MEDS ORDERED: NFBIOT1000 PO (08:16)
[2017-02-27] MEDS ORDERED: LORA10TA7 PO (08:16)
[2017-02-27] MEDS ORDERED: FLAX1000 PO (08:16)
[2017-02-27] MEDS ORDERED: CALC-6 PO (08:16)
[2017-02-27] MEDS ORDERED: [UNRECOGNIZED DRUG - CODE] PO (08:17)
[2017-02-27 08:30] VITALS: BP 177/81
[2017-02-27] MEDS ORDERED: ASPIRIN E.C. 325 MG (ECOTRIN) TABLET PO SCH (09:00)
[2017-02-27] MEDS ORDERED: cefTRIAXone 1 GM/NS 50 ML IVPB IV SCH ×2 (09:00)
[2017-02-27 10:10] VITALS: BP 177/81
[2017-02-27] MEDS: NS IV 1000 ML 1,000 ML IV SCH (11:28)
[2017-02-27 12:30] VITALS: BP 180/79
[2017-02-27] MEDS ORDERED: TURMERIC ROOT EXTRACT PO PRN (12:45)
[2017-02-27] MEDS ORDERED: [UNRECOGNIZED DRUG - OTHER] PO SCH (13:00)
[2017-02-27] MEDS ORDERED: NON-FORMULARY MEDICATION 1 EA EA (Calcium Carbonate/Vitamin D3 (Calcium 600 + Vit D 200 Ta PO SCH (13:00)
[2017-02-27] MEDS ORDERED: NON-FORMULARY MEDICATION 1 EA EA (Brinzolamide/Brimonidine Tart (Simbrinza 1%-0.2% Eye Dro OU SCH (13:00)
[2017-02-27] MEDS ORDERED: CIPR500S3 PO (14:03)
--- NOTE | 2017-02-27 14:05 | Discharge Instructions ---
Discharge [facility] Discharge Medications New, Converted or Re-Newed RX: Transmitted to Pharmacy New Medications: Ciprofloxacin (Ciprofloxacin) 500 Mg/5 Ml Ines.mc.rec 500 MG PO BID for 8 Days, #16 TAB Continued Medications: Arginine HCl (l-Arginine) 1,000 Mg Tablet 2000 MG PO TID, TAB Aspirin (Aspirin EC) 81 Mg Tablet.dr 81 MG PO HS, TAB Biotin (Biotin) 1,000 Mcg Tablet 1000 MCG PO HS, TAB Brinzolamide/Brimonidine Tart (Simbrinza 1%-0.2% Eye Drops) 8 Ml Drops.susp 1 DROPS OU TID, EA Calcium Carbonate/Vitamin D3 (Calcium 600 + Vit D 200 Tablet) 1 Each Tablet 1 TAB PO TID, TAB Cholecalciferol (Vitamin D3) (Vitamin D3) 5,000 Unit Capsule 5000 UNITS PO HS, CAP Clopidogrel Bisulfate (Clopidogrel) 75 Mg Tablet 75 MG PO HS, TAB Cranberry Conc/C/Bacill Coag (Cranberry Tablet) 1 Each Tablet 1 TAB PO DAILY, TAB Flaxseed Oil (Flaxseed Oil) 1,000 Mg Capsule 1000 MG PO HS, CAP Insulin Aspart (Novolog Flexpen) 300 Units/3 Ml Solution 15 UNITS SC AC, EA Insulin Detemir (Levemir Flextouch) 100 Unit/1 Ml Insuln.pen 18-20 UNITS SC BID, EA Loratadine (Loratadine) 10 Mg Tablet 10 MG PO HS, TAB Losartan Potassium (Losartan Potassium) 100 Mg Tablet 100 MG PO HS, TAB Magnesium Oxide (Magnesium Oxide) 250 Mg Tablet 250 MG PO HS, TAB Metoprolol Tartrate (Metoprolol Tartrate) 25 Mg Tablet 12.5 MG PO BID, TAB TAKES 1/2 (25MG) TABLET Multivitamin (Daily Multiple Vitamin) 1 Each Tablet 1 TAB PO HS, TAB [place]-3/Dha/Epa/Fish Oil (Fish Oil 1,000 mg Softgel) 1 Each Capsule 1000 MG PO TID, CAP Rosuvastatin Calcium (Rosuvastatin Calcium) 20 Mg Tablet 20 MG PO HS, TAB Turmeric Root Extract (Turmeric) 538 Mg Capsule 1-2 CAP PO TID PRN for BACK PAIN, CAP Vitamin B Complex & Vit C No.4 (Super B Complex) 150 Mg Tablet 150 MG PO HS, TAB Patient Instructions Patient Instructions Keep appt with Dr. Palomo 03/17/17 as scheduled; will receive call from office if patient to be seen at sooner appt Goal/Follow Up Appt: drink plenty of water, take medications as prescribed, keep follow up appt as scheduled with Dr. 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
--- NOTE | 2017-02-27 14:19 | Discharge Summary ---
Diagnosis/Chief Complaint Date of Admission Feb 26, 2017 at 12:17 Date of Discharge 02/27/17 Admission Diagnosis Admission Diagnosis altered mental status Urinary tract infection Chest pain Discharge Diagnosis acute urinary tract infection, Escherichia coli bacteria Altered mental status-resolved Chest pain-workup negative, chest pain resolved Chief Complaint/HPI Chief Complaint/HPI The patient presented to the ED with reports of altered mental status, intermittent chest pain and pressure, and dysuria. The patient was hydrated with IV fluids and started on antibiotics for UTI as her UA showed positive nitrites. The patient's preliminary culture was positive for Escherichia coli. After the patient received IV fluids and a dose of antibiotics, she returned to her normal baseline mental status and was able to appropriately answer questions and her family at bedside was "back to normal". The patient reports that she is feeling much better and that she feels okay to go home. Discharge Summary-OBS Procedures None. Discharge Physical Examination Allergies: Coded Allergies: Bacitracin Zinc (Unverified Allergy, Unknown, 11/08/11) Penicillins (Unverified Allergy, Unknown, HAS RECEIVED ROCEPHIN DURING PREVIOUS ADMIT, 11/09/11) bacitracin (Unverified Allergy, Unknown, 11/08/11) colistimethate sodium (Unverified Allergy, Unknown, 11/08/11) gramicidin D (Unverified Allergy, Unknown, 11/08/11) neomycin sulfate (Unverified Allergy, Unknown, 11/08/11) polymyxin B (Unverified Allergy, Unknown, 11/08/11) polymyxin B sulfate (Unverified Allergy, Unknown, 11/08/11) pramoxine HCl (Unverified Allergy, Unknown, 11/08/11) Vitals & I&Os Vital Sign - Last 12Hours Date Time Temp Pulse Resp B/P (MAP) Pulse Ox O2 Delivery O2 Flow Rate FiO2 02/27/17 13:00 75 02/27/17 10:10 22 177/81 98 02/27/17 10:10 Nasal Cannula 02/27/17 08:30 97.4 2.00 General Appearance: Alert, Oriented X3, Cooperative, No Acute Distress HEENT: Atraumatic, PERRLA, EOMI, Mucous Memb Moist/[place]ick[place] Respiratory: Clear to Auscultation, Normal Air Movement Cardiovascular: Normal S1, Normal S2 Abdominal: Normal Bowel Sounds, Soft, No Tenderness, No Hepatosplenomegaly, No Masses Extremities: No Clubbing, No Cyanosis, Normal Pulses Skin: No Rashes, No Significant Lesion Neuro: Normal Speech, Normal Tone, Cranial Nerves 3-12 NL Psych/Mental Status: Mental Status NL, Mood NL Hospital Course The patient was IV hydrated and started on IV antibiotics in the emergency department, she was then admitted to observation on the [facility] floor and her IV fluids and antibiotics were continued. After hydration and antibiotics, the patient's mental status improved to her baseline and per report of both the patient and the family, she is "back to her normal self ". The patient reports that overall she is feeling well, denies weakness, fever, chills, nausea, vomiting, dysuria. The patient states that she does feel ready to go home. Discussed with patient and family that preliminary culture results show that the patient has an Escherichia coli urinary tract infection and that we will place her on by mouth antibiotics to fully treat her infection. The patient and family verbalized understanding and denies any questions about the plan of care. Labs Laboratory Tests 02/26/17 14:30: Total Creatine Kinase 63, Myoglobin 161.3H 02/26/17 17:23: Glucometer 163H 02/26/17 21:05: Glucometer 224H 02/27/17 05:27: White Blood Count 7.1, Red Blood Count 3.63L, Hemoglobin 10.4L, Hematocrit 34L, Mean Corpuscular Volume 92, Mean Corpuscular Hemoglobin 29, Mean Corpuscular Hemoglobin Concent 31L, Red Cell Distribution Width 14.2, Platelet Count 278, Mean Platelet Volume 9.6, Neutrophils (%) (Auto) 58, Lymphocytes (%) (Auto) 28, Monocytes (%) (Auto) 12, Eosinophils (%) (Auto) 1, Basophils (%) (Auto) 0, Neutrophils # (Auto) 4.1, Lymphocytes # (Auto) 2.0, Monocytes # (Auto) 0.8, Eosinophils # (Auto) 0.1, Basophils # (Auto) 0.0, Sodium Level 139, Potassium Level 5.0, Chloride Level 106, Carbon Dioxide Level 25, Anion Gap 8, Blood Urea Nitrogen 43H, Creatinine 2.05H, Estimat Glomerular Filtration Rate 24, BUN/ Creatinine Ratio 21, Glucose Level 170H, Calcium Level 8.8 02/27/17 12:00: Glucometer 304H Microbiology 02/26/17 Urine Culture - Preliminary, Resulted Probable E.coli Discussion & Recommendations the patient will be discharged to home on Macrobid 100 mg by mouth twice a day 7 days, the patient has a follow-up appointment already scheduled with Dr. Palomo at the beginning of March and she has been instructed to keep that appointment. Should the patient experience any side effects from her medication or return if any of her symptoms that brought her to the ER, she is to contact the provider [employer] or proceed to the ER for further evaluation. The patient and her daughter are present during this conversation and both verbalized understanding of the plan of care and are in agreement. Discharge Condition at discharge stable Instructions to patient/family Please see electronic discharge instructions given to patient. Discharge Medications Reviewed and agree with Discharge Medication list on patient's Discharge Instruction sheet Clinical Quality Measures DVT/VTE Risk/Contraindication: Risk Factor Score Per Nursin RFS Level Per Nursing on Admit: 4+=Very High Stroke: Date of last known well: Feb 26, 2017 Copy Copies To 1: MARY PALOMO MD, MARGARET E DO Feb 27, 2017 14:19
[2017-02-27 15:30] VITALS: BP 180/79
[2017-02-27] MEDS ORDERED: OMEGA 3 (FISH OIL) 1000 MG CAP PO SCH (17:00)
[2017-02-27] MEDS ORDERED: MULTIVIT W/MINERALS TAB (THERAGRAN M) PO SCH (17:00)
[2017-02-27] MEDS ORDERED: CALCIUM CARB + VIT D 600 MG (CALCARB + D) TAB PO SCH (17:00)
[2017-02-27] MEDS ORDERED: NON-FORMULARY MEDICATION 1 EA EA (Vitamin B Complex & Vit C No.4 (Super B Complex) 150 MG) PO SCH (21:00)
[2017-02-27] MEDS ORDERED: LORATADINE (CLARITIN) 10 MG TAB PO SCH (21:00)
[2017-02-27] MEDS ORDERED: [UNRECOGNIZED DRUG - OTHER] PO SCH (21:00)
[2017-02-27] MEDS ORDERED: ASPIRIN E.C. 81 MG (ECOTRIN) TAB PO SCH (21:00)
[2017-02-27] MEDS ORDERED: CHOLECALCIFEROL 5000 UNIT PO SCH (21:00)
[2017-02-27] MEDS ORDERED: meTOprolol TARTRATE 25 MG (LOPRESSOR) TABLET PO SCH (21:00)
[2017-02-27] MEDS ORDERED: CLOPIDOGREL 75 MG (PLAVIX) TABLET PO SCH (21:00)
[2017-02-27] MEDS ORDERED: VITAMIN D3 5,000 UNITS (CHOLECALCIFEROL ) CAPSULE PO SCH (21:00)
[2017-02-27] MEDS ORDERED: NON-FORMULARY MEDICATION 1 EA EA (Magnesium Oxide 250 MG) PO SCH (21:00)
[2017-02-27] MEDS ORDERED: NON-FORMULARY MEDICATION 1 EA EA (Biotin 1,000 MCG) PO SCH (21:00)
[2017-02-27] MEDS ORDERED: ROSUVASTATIN 20 MG (CRESTOR) TABLET PO SCH (21:00)
[2017-02-27] MEDS ORDERED: NON-FORMULARY MEDICATION 1 EA EA (Multivitamin (Daily Multiple Vitamin) 1 TAB) PO SCH (21:00)
[2017-02-27] MEDS ORDERED: MAGNESIUM OXIDE (MAG-OX)400 MG TAB PO SCH (21:00)
[2017-02-27] MEDS ORDERED: NON-FORMULARY MEDICATION 1 EA EA (Flaxseed Oil 1,000 MG) PO SCH (21:00)
[2017-02-28] MEDS ORDERED: NON-FORMULARY MEDICATION 1 EA EA (Cranberry Conc/C/Bacill Coag (Cranberry Tablet) 1 TAB) PO SCH (09:00)
== END 2017-02-27 14:03 | disposition home or self-care (01) ==
LOC: EDUNIT# 10:05 → ER 10:06 → 4TH 12:17 → UNDOADMOB 12:17 → 4TH 13:30
PROVIDERS: ADMIT Family Medicine; ATTEND Family Medicine
DX: R41.82 Altered mental status, unspecified (principal); N39.0 Urinary tract infection, site not specified; B96.20 Unspecified Escherichia coli [E. coli] as the cause of diseases classified elsewhere; R07.9 Chest pain, unspecified; E11.9 Type 2 diabetes mellitus without complications; Z79.82 Long term (current) use of aspirin; Z79.02 Long term (current) use of antithrombotics/antiplatelets; Z79.899 Other long term (current) drug therapy; Z95.5 Presence of coronary angioplasty implant and graft
CPT/HCPCS: 36415; 70450; 71010; 80048; 80053; 81000; 82550; 82962; 83605; 83874; 84484; 85025; 85379; 85610; 85730; 87040; 87077; 87088; 87186; 93005; 93041; 96361; 96365; G0378

== ENCOUNTER → 2017-04-19 | Outpatient (CLI) | payer MEDICARE, MEDICAID ==
[~2017-04-19] MED LIST changes: +CIPR500S3 PO; +FLAX1000 PO; +INSU100I14 SC; +INSU100I29 SC; +LOSA100T28 PO; +MAGN250T35 PO; +MULT-35 PO; +NFBIOT1000 PO; +OMEG-160 PO; +ROSU20TA28 PO; +TURM538C PO; +[UNRECOGNIZED DRUG - CODE] PO
--- NOTE | 2017-04-19 16:37 | Diagnostic Imaging Report ---
PROCEDURE: MRI right lower extremity without contrast. TECHNIQUE: A multiplanar/multisequence noncontrast enhanced MRI of the right lower extremity was accomplished. INDICATION: Ulcer of the undersurface of the right great toe. Evaluate for possible osteomyelitis. FINDINGS: There is significant soft tissue edema around the great toe and forefoot in general. There is bone marrow edema within the distal phalanx of the right great toe, suggestive of osteomyelitis. This is particularly intense in the distal tuft of the distal phalanx. The proximal phalanx marrow signal appears to be within normal limits as well as the metatarsal. The other toes demonstrate normal bone signal. There is, however, deformity with hyperextension at the MTP joints and hyperflexion of the interphalangeal joint of the great toe and the PIP joints of the other toes. The dorsal and plantar tendons visualized appear grossly unremarkable. Mild nonspecific muscle edema in the small muscles of the plantar aspect of the midfoot at the level of the proximal metatarsals is seen. This could be infection or inflammation related. There is no soft tissue abscess identified. IMPRESSION: Findings of bone marrow edema involving the distal phalanx of the right great toe are suggestive of osteomyelitis. Report was faxed to the office of Dr. Iris Palomo at 4:35 p.m., by marie (for [id number]). Dictated by: Dictated on workstation # [id number]
== END ==
LOC: RAD 13:35
PROVIDERS: ATTEND Family Medicine
DX: L97.519 Non-pressure chronic ulcer of other part of right foot with unspecified severity (principal)

== ENCOUNTER → 2017-04-19 | Outpatient (CLI) | payer MEDICARE, MEDICAID ==
--- NOTE | 2017-04-20 11:50 | Diagnostic Imaging Report ---
Bilateral screening mammogram 2D views with tomosynthesis The current study was also evaluated with a Computer Aided Detection (CAD) system. INDICATION: Screening. No current complaints stated on the questionnaire. COMPARISON: 04/15/2013. FINDINGS: The breasts are composed of scattered fibroglandular densities. Scattered benign-appearing calcifications are seen. Allowing for technique and positional differences, no suspicious change is seen. IMPRESSION: No significant change. ACR BI-RADS Category 2: Benign findings. Result letter will be mailed to the patient. Note: At least 10% of breast cancer is not imaged by mammography. Dictated by: Dictated on workstation # [id number]
== END ==
LOC: RAD 13:34
PROVIDERS: ATTEND Family Medicine
DX: Z12.31 Encounter for screening mammogram for malignant neoplasm of breast (principal)
CPT/HCPCS: 77067

== ENCOUNTER 2017-04-21 08:19 | Outpatient (RCR) | payer MEDICARE, MEDICAID ==
[~2017-04-21 08:19] MED LIST changes: -ROSU20TA28 PO; +ROSU20TA30 PO
== END 2017-05-21 | disposition home or self-care (01) ==
LOC: ONC 08:19
PROVIDERS: ATTEND Internal Medicine Hematology & Oncology
DX: N18.3 Chronic kidney disease, stage 3 (moderate) (principal); D63.1 Anemia in chronic kidney disease; Z79.899 Other long term (current) drug therapy; Z45.2 Encounter for adjustment and management of vascular access device
CPT/HCPCS: 36591; 96523

== ENCOUNTER → 2017-04-21 | Outpatient (CLI) | payer MEDICARE, MEDICAID ==
[2017-04-21 08:58] LABS: MEAN PLATELET VOLUME 9.9 FL (7.4-10.4); RED BLOOD COUNT 3.61 10^6/uL (4.35-5.85); WHITE BLOOD COUNT 6.1 10^3/uL (4.3-11.0)
[2017-04-21 09:19] LABS: ALBUMIN 3.6 GM/DL (3.2-4.5); CALCIUM 9.8 MG/DL (8.5-10.1); CREATININE SERUM 2.06 MG/DL (0.60-1.30); PHOSPHORUS 3.3 MG/DL (2.3-4.7); POTASSIUM 4.5 MMOL/L (3.6-5.0)
[2017-04-21 10:29] LABS: PROTEIN/CREATININE RATIO 3.98
[2017-04-24 09:17] LABS: CALCIUM PARA THYROID HORMONE 9.5 mg/dL (8.5-10.5)
== END ==
LOC: LAB 08:10
PROVIDERS: ATTEND Internal Medicine Nephrology
DX: E55.9 Vitamin D deficiency, unspecified (principal); E66.3 Overweight; E78.5 Hyperlipidemia, unspecified; I25.10 Atherosclerotic heart disease of native coronary artery without angina pectoris; E87.5 Hyperkalemia; N18.3 Chronic kidney disease, stage 3 (moderate); D63.1 Anemia in chronic kidney disease; R80.9 Proteinuria, unspecified; I12.9 Hypertensive chronic kidney disease with stage 1 through stage 4 chronic kidney disease, or unspecified chronic kidney disease; N25.0 Renal osteodystrophy; E11.29 Type 2 diabetes mellitus with other diabetic kidney complication; E11.21 Type 2 diabetes mellitus with diabetic nephropathy
CPT/HCPCS: 36415; 80069; 82306; 82570; 83036; 83970; 84156; 85027

== ENCOUNTER 2017-07-11 05:37 | Outpatient (CLI) | payer MEDICARE, MEDICAID ==
[~2017-07-11] VITALS: Ht 167.6 cm; Wt 142.2 kg
[2017-07-12] MEDS ORDERED: ACHD5005 PO (11:40)
== END 2017-07-11 14:07 ==
LOC: PREOP 05:37
PROVIDERS: ATTEND Surgery
DX: Z01.818 Encounter for other preprocedural examination (principal); M86.9 Osteomyelitis, unspecified; D64.9 Anemia, unspecified

== ENCOUNTER 2017-07-15 09:50 | Outpatient (RCR) | payer MEDICARE, MEDICAID ==
[2017-07-03 09:05] VITALS: BP 156/71
[~2017-07-15] VITALS: Ht 167.6 cm; Wt 142.2 kg
[~2017-07-15 09:50] MED LIST changes: +ACHD5005 PO
[2017-08-19] MEDS ORDERED: METO-387 PO (12:17)
[2017-08-19] MEDS ORDERED: METR500T21 PO (12:17)
[2017-08-19] MEDS ORDERED: GABA-486 PO (12:17)
[2017-08-21] MEDS ORDERED: METO-370 PO (10:23)
== END 2017-09-29 | disposition home or self-care (01) ==
LOC: SDC 09:50
PROVIDERS: ATTEND Obstetrics & Gynecology
DX: E11.8 Type 2 diabetes mellitus with unspecified complications (principal); Z79.4 Long term (current) use of insulin; Z48.00 Encounter for change or removal of nonsurgical wound dressing
CPT/HCPCS: 99211

== ENCOUNTER 2017-07-15 10:00 | Outpatient (RCR) | payer MEDICARE, MEDICAID ==
[2017-06-29 14:02] VITALS: BP 179/76
[2017-06-29] MEDS: DAPTOmycin 500 MG/NS 50 ML IVPB IV SCH ×2 (17:05)
[2017-06-29] MEDS: cefTRIAXone 1 GM/NS 50 ML IVPB IV SCH ×2 (17:05)
--- NOTE | 2017-06-29 17:11 | Diagnostic Imaging Report ---
INDICATION: Evaluate PICC line placement. COMPARISON: Comparison made with prior examination from 02/26/2017. FINDINGS: There is cardiomegaly and some venous congestion. There is no pleural effusion or pneumothorax. An [id number] catheter overlies the left hemithorax. There is a right upper extremity PICC line with its tip in the superior vena cava. IMPRESSION: The right upper extremity PICC line has its tip in the superior vena cava. Cardiomegaly and some central pulmonary venous congestion. Dictated by: Dictated on workstation # [id number]
[2017-06-30] MEDS: cefTRIAXone 1 GM/NS 50 ML IVPB IV SCH ×2 (10:09)
[2017-06-30] MEDS: DAPTOmycin 500 MG/NS 50 ML IVPB IV SCH ×2 (10:13)
[2017-06-30 10:58] VITALS: BP 181/84
[2017-06-30 16:36] LABS: ALBUMIN 3.6 GM/DL (3.2-4.5); BILIRUBIN,TOTAL 0.4 MG/DL (0.1-1.0); CALCIUM 8.8 MG/DL (8.5-10.1); CREATININE SERUM 2.04 MG/DL (0.60-1.30); POTASSIUM 4.6 MMOL/L (3.6-5.0)
[2017-07-01 08:40] LABS: BASOPHILS % (AUTO) 1 % (0-10); EOSINOPHILS # (AUTO) 0.1 10^3/uL (0.0-0.3); EOSINOPHILS % (AUTO) 1 % (0-10); HEMATOCRIT 31 % (35-52); HEMOGLOBIN 9.8 G/DL (11.5-16.0); LYMPHOCYTES # (AUTO) 1.3 X 10^3 (1.0-4.0); LYMPHOCYTES % (AUTO) 18 % (12-44); MEAN CORPUSCULAR HEMOGLOBIN 29 PG (25-34); MEAN CORPUSCULAR HGB CONC 32 G/DL (32-36); MEAN CORPUSCULAR VOLUME 92 FL (80-99); MEAN PLATELET VOLUME 9.9 FL (7.4-10.4); MONOCYTES # (AUTO) 0.9 X 10^3 (0.0-1.0); MONOCYTES % (AUTO) 12 % (0-12); NEUTROPHILS # (AUTO) 5.3 X 10^3 (1.8-7.8); NEUTROPHILS % (AUTO) 69 % (42-75); PLATELET COUNT 233 10^3/uL (130-400); RED BLOOD COUNT 3.34 10^6/uL (4.35-5.85); RED CELL DISTRIBUTION WIDTH 13.8 % (10.0-14.5); WHITE BLOOD COUNT 7.6 10^3/uL (4.3-11.0)
[2017-07-01] MEDS: cefTRIAXone 1 GM/NS 50 ML IVPB IV SCH ×2 (08:44)
[2017-07-01 08:45] VITALS: BP 127/66
[2017-07-01] MEDS: DAPTOmycin 500 MG/NS 50 ML IVPB IV SCH ×2 (08:45)
[2017-07-01 10:15] LABS: EOSINOPHILS % (MANUAL) 1 %; HYPOCHROMASIA SLIGHT; LYMPHOCYTES % (MANUAL) 19 %; MONOCYTES % (MANUAL) 5 %; NEUTROPHILS % (MANUAL) 75 %
[2017-07-01 10:16] LABS: ERYTHROCYTE SEDIMENTATION RATE 77 MM/HR (0-30); STOMATOCYTES SLIGHT
[2017-07-02] MEDS: cefTRIAXone 1 GM/NS 50 ML IVPB IV SCH ×2 (08:34)
[2017-07-02] MEDS: DAPTOmycin 500 MG/NS 50 ML IVPB IV SCH ×2 (08:35)
[2017-07-02 09:15] VITALS: BP 173/78
[2017-07-03] MEDS: CATHETER FLUSH 10 ML SYR IV PRN ×2 (08:34→09:05)
[2017-07-03] MEDS: DAPTOmycin 500 MG/NS 50 ML IVPB IV SCH ×2 (08:35)
[2017-07-03] MEDS: cefTRIAXone 1 GM/NS 50 ML IVPB IV SCH ×2 (08:38)
[2017-07-03 08:58] LABS: BASOPHILS # (AUTO) 0.1 10^3/uL (0.0-0.1); BASOPHILS % (AUTO) 1 % (0-10); EOSINOPHILS # (AUTO) 0.1 10^3/uL (0.0-0.3); EOSINOPHILS % (AUTO) 1 % (0-10); HEMATOCRIT 30 % (35-52); HEMOGLOBIN 9.4 G/DL (11.5-16.0); LYMPHOCYTES # (AUTO) 1.2 X 10^3 (1.0-4.0); LYMPHOCYTES % (AUTO) 19 % (12-44); MEAN CORPUSCULAR HEMOGLOBIN 29 PG (25-34); MEAN CORPUSCULAR HGB CONC 32 G/DL (32-36); MEAN CORPUSCULAR VOLUME 91 FL (80-99); MEAN PLATELET VOLUME 10.1 FL (7.4-10.4); MONOCYTES # (AUTO) 0.7 X 10^3 (0.0-1.0); MONOCYTES % (AUTO) 11 % (0-12); NEUTROPHILS # (AUTO) 4.3 X 10^3 (1.8-7.8); NEUTROPHILS % (AUTO) 69 % (42-75); PLATELET COUNT 209 10^3/uL (130-400); RED BLOOD COUNT 3.28 10^6/uL (4.35-5.85); RED CELL DISTRIBUTION WIDTH 13.9 % (10.0-14.5); WHITE BLOOD COUNT 6.3 10^3/uL (4.3-11.0)
[2017-07-03 09:10] VITALS: BP 156/71
[2017-07-03 09:17] LABS: ALBUMIN 3.4 GM/DL (3.2-4.5); BILIRUBIN,TOTAL 0.4 MG/DL (0.1-1.0); CALCIUM 9.2 MG/DL (8.5-10.1); CREATININE SERUM 2.39 MG/DL (0.60-1.30); POTASSIUM 4.3 MMOL/L (3.6-5.0); TOTAL PROTEIN 6.8 GM/DL (6.4-8.2)
[2017-07-03 09:26] LABS: ERYTHROCYTE SEDIMENTATION RATE 84 MM/HR (0-30)
[2017-07-04] MEDS: CATHETER FLUSH 10 ML SYR IV PRN ×2 (09:57→10:27)
[2017-07-04] MEDS: DAPTOmycin 500 MG/NS 50 ML IVPB IV SCH ×2 (09:58)
[2017-07-04] MEDS: cefTRIAXone 1 GM/NS 50 ML IVPB IV SCH ×2 (09:58)
[2017-07-04 10:27] VITALS: BP 136/81
[2017-07-05 11:00] VITALS: BP 162/78
[2017-07-05] MEDS: cefTRIAXone 1 GM/NS 50 ML IVPB IV SCH ×2 (11:05)
[2017-07-05] MEDS: CATHETER FLUSH 10 ML SYR IV PRN (11:05)
[2017-07-05] MEDS: SODIUM CHLORIDE IV SCH ×2 (11:13)
[2017-07-05] MEDS: DAPTOMYCIN IV SCH ×2 (11:13)
[2017-07-06] MEDS: DAPTOMYCIN IV SCH ×2 (09:49)
[2017-07-06] MEDS: SODIUM CHLORIDE IV SCH ×2 (09:49)
[2017-07-06] MEDS: cefTRIAXone 1 GM/NS 100 ML IVPB IV SCH ×2 (09:49)
[2017-07-06 09:59] VITALS: BP 190/85
[2017-07-06 10:06] LABS: CREATININE SERUM 3.02 MG/DL (0.60-1.30); POTASSIUM 4.6 MMOL/L (3.6-5.0)
[2017-07-06 10:48] VITALS: BP 190/85
[2017-07-07 09:00] VITALS: BP 192/87
[2017-07-07] MEDS: CATHETER FLUSH 10 ML SYR IV PRN (09:10)
[2017-07-07] MEDS: DAPTOMYCIN IV SCH ×2 (09:15)
[2017-07-07] MEDS: SODIUM CHLORIDE IV SCH ×2 (09:15)
[2017-07-07] MEDS: cefTRIAXone 1 GM/NS 100 ML IVPB IV SCH ×2 (09:20)
[2017-07-09] MEDS: cefTRIAXone 1 GM/NS 100 ML IVPB IV SCH ×2 (09:42)
[2017-07-09] MEDS: CATHETER FLUSH 10 ML SYR IV PRN ×3 (09:42→10:28)
[2017-07-09] MEDS: DAPTOMYCIN IV SCH (09:54)
[2017-07-09] MEDS: NS IV SCH (09:54)
[2017-07-09 10:03] VITALS: BP 138/67
[2017-07-10] MEDS: CATHETER FLUSH 10 ML SYR IV PRN (11:05)
[2017-07-10 11:10] VITALS: BP 188/74
[2017-07-10] MEDS: cefTRIAXone 1 GM/NS 100 ML IVPB IV SCH ×2 (11:15)
[2017-07-10 11:37] LABS: BASOPHILS % (AUTO) 0 % (0-10); EOSINOPHILS # (AUTO) 0.1 10^3/uL (0.0-0.3); EOSINOPHILS % (AUTO) 1 % (0-10); HEMATOCRIT 29 % (35-52); HEMOGLOBIN 9.4 G/DL (11.5-16.0); LYMPHOCYTES # (AUTO) 1.3 X 10^3 (1.0-4.0); LYMPHOCYTES % (AUTO) 14 % (12-44); MEAN CORPUSCULAR HEMOGLOBIN 30 PG (25-34); MEAN CORPUSCULAR HGB CONC 32 G/DL (32-36); MEAN CORPUSCULAR VOLUME 92 FL (80-99); MEAN PLATELET VOLUME 9.9 FL (7.4-10.4); MONOCYTES # (AUTO) 0.7 X 10^3 (0.0-1.0); MONOCYTES % (AUTO) 8 % (0-12); NEUTROPHILS # (AUTO) 6.8 X 10^3 (1.8-7.8); NEUTROPHILS % (AUTO) 77 % (42-75); PLATELET COUNT 223 10^3/uL (130-400); RED BLOOD COUNT 3.19 10^6/uL (4.35-5.85); RED CELL DISTRIBUTION WIDTH 14.6 % (10.0-14.5); WHITE BLOOD COUNT 8.9 10^3/uL (4.3-11.0)
[2017-07-10 12:00] LABS: ERYTHROCYTE SEDIMENTATION RATE > 140 MM/HR (0-30)
[2017-07-10 12:01] LABS: ALBUMIN 3.5 GM/DL (3.2-4.5); BILIRUBIN,TOTAL 0.5 MG/DL (0.1-1.0); CALCIUM 9.1 MG/DL (8.5-10.1); CREATININE SERUM 2.4 MG/DL (0.60-1.30); POTASSIUM 4.1 MMOL/L (3.6-5.0); TOTAL PROTEIN 7.3 GM/DL (6.4-8.2)
[2017-07-11] MEDS: CATHETER FLUSH 10 ML SYR IV PRN (09:12)
[2017-07-11] MEDS: cefTRIAXone 1 GM/NS 100 ML IVPB IV SCH ×2 (09:12)
[2017-07-11] MEDS: NS IV SCH (09:15)
[2017-07-11] MEDS: DAPTOMYCIN IV SCH (09:15)
[2017-07-11 10:00] VITALS: BP 187/95
[2017-07-12] MEDS: cefTRIAXone 1 GM/NS 100 ML IVPB IV SCH ×2 (13:21)
[2017-07-12 13:25] VITALS: BP 187/92
[2017-07-12 13:58] VITALS: BP 187/92
[2017-07-13] MEDS: NS IV SCH (14:58)
[2017-07-13] MEDS: DAPTOMYCIN IV SCH (14:58)
[2017-07-13] MEDS: cefTRIAXone 1 GM/NS 100 ML IVPB IV SCH ×2 (14:59)
[~2017-07-15] VITALS: Ht 167.6 cm; Wt 142.2 kg
[2017-07-15 10:00] VITALS: BP 151/71
[~2017-07-15 10:00] MED LIST changes: +NS (IVPB) 100 ML ONE; +cefTRIAXone 1 GM (ROCEPHIN) VIAL ONE
[2017-07-15 10:25] LABS: CALCIUM 8.8 MG/DL (8.5-10.1); CREATININE SERUM 2.65 MG/DL (0.60-1.30); POTASSIUM 4.5 MMOL/L (3.6-5.0)
[2017-07-15] MEDS: CATHETER FLUSH 10 ML SYR IV PRN (10:30)
[2017-07-15] MEDS: cefTRIAXone 1 GM/NS 100 ML IVPB IV SCH ×2 (10:35)
[2017-07-15] MEDS: NS IV SCH (11:05)
[2017-07-15] MEDS: DAPTOMYCIN IV SCH (11:05)
[2017-07-16] MEDS: cefTRIAXone 1 GM/NS 100 ML IVPB IV SCH ×2 (14:05)
[2017-08-19] MEDS ORDERED: METR500T21 PO (12:17)
[2017-08-19] MEDS ORDERED: GABA-486 PO (12:17)
[2017-08-19] MEDS ORDERED: METO-387 PO (12:17)
[2017-08-21] MEDS ORDERED: METO-370 PO (10:23)
== END 2017-09-27 | disposition home or self-care (01) ==
LOC: SDC 10:00
PROVIDERS: ATTEND Internal Medicine Infectious Disease
DX: M86.9 Osteomyelitis, unspecified (principal)
CPT/HCPCS: 36415; 36569; 36592; 71045; 76937; 80048; 80053; 82550; 85007; 85025; 85027; 85652; 96365; 96368; 99211

== ENCOUNTER 2017-08-18 15:04 | Inpatient (IN) | payer MEDICARE, MEDICAID ==
[2017-08-18] VITALS (18 sets, daily range): BP systolic 129–224; BP diastolic 64–130
[~2017-08-18] VITALS: Ht 165.1 cm; Wt 141.2 kg
[~2017-08-18 15:04] MED LIST changes: -NS (IVPB) 100 ML ONE; -ROSU20TA30 PO; +ROSU20TA31 PO; -cefTRIAXone 1 GM (ROCEPHIN) VIAL ONE
--- NOTE | 2017-08-18 15:32 | ED Neurological Problem ---
General Stated Complaint: CONFUSION/TROUBLE SPEAKING Source: patient Exam Limitations: no limitations History of Present Illness Date Seen by Provider: Aug 18, 2017 Time Seen by Provider: 15:26 Initial Comments To ER per private vehicle with reports of confusion and trouble speaking. Patient was taken to an eye doctor appointment at 1:15. Upon picking her up from the eye doctor appointment at 2:30 for cataracts. She was noticed to have garbled speech and complains of right arm numbness. Timing/Duration: 1-3 hours Severity: moderate Allergies and Home Medications Allergies Coded Allergies: Bacitracin Zinc (Unverified Allergy, Unknown, 07/11/17) Penicillins (Unverified Allergy, Unknown, HAS RECEIVED ROCEPHIN DURING PREVIOUS ADMIT, 07/11/17) bacitracin (Unverified Allergy, Unknown, 07/11/17) colistimethate sodium (Unverified Allergy, Unknown, 07/11/17) gramicidin D (Unverified Allergy, Unknown, 07/11/17) neomycin sulfate (Unverified Allergy, Unknown, 07/11/17) polymyxin B (Unverified Allergy, Unknown, 07/11/17) polymyxin B sulfate (Unverified Allergy, Unknown, 07/11/17) pramoxine HCl (Unverified Allergy, Unknown, 07/11/17) Home Medications Arginine HCl 1,000 Mg Tablet, 2,000 MG PO TID, (Reported) Aspirin 81 Mg Tablet.dr, 81 MG PO HS, (Reported) Biotin 1,000 Mcg Tablet, 1,000 MCG PO HS, (Reported) Brinzolamide/Brimonidine Tart 8 Ml Drops.susp, 1 DROPS OU TID, (Reported) Calcium Carbonate/Vitamin D3 1 Each Tablet, 1 TAB PO TID, (Reported) Cholecalciferol (Vitamin D3) 5,000 Unit Capsule, 5,000 UNITS PO HS, (Reported) Clopidogrel Bisulfate 75 Mg Tablet, 75 MG PO HS, (Reported) Cranberry Conc/C/Bacill Coag 1 Each Tablet, 1 TAB PO DAILY, (Reported) Flaxseed Oil 1,000 Mg Capsule, 1,000 MG PO HS, (Reported) Hydrocodone Bit/Acetaminophen 1 Tab Tab, 1-2 TAB PO 4-6HR PRN for PAIN Prescribed by: DARLENE KILPATRICK on 07/12/17 1140 Insulin Aspart 300 Units/3 Ml Solution, 15 UNITS SC AC, (Reported) Insulin Detemir 100 Unit/1 Ml Insuln.pen, 18-20 UNITS SC BID, (Reported) Loratadine 10 Mg Tablet, 10 MG PO HS, (Reported) Losartan Potassium 100 Mg Tablet, 100 MG PO HS, (Reported) Magnesium Oxide 250 Mg Tablet, 250 MG PO HS, (Reported) Metoprolol Tartrate 25 Mg Tablet, 12.5 MG PO BID, (Reported) TAKES 1/2 (25MG) TABLET Multivitamin 1 Each Tablet, 1 TAB PO HS, (Reported) [place]-3/Dha/Epa/Fish Oil 1 Each Capsule, 1,000 MG PO TID, (Reported) Rosuvastatin Calcium 20 Mg Tablet, 20 MG PO HS, (Reported) Turmeric Root Extract 538 Mg Capsule, 1-2 CAP PO TID PRN for BACK PAIN, ( Reported) Vitamin B Complex & Vit C No.4 150 Mg Tablet, 150 MG PO HS, (Reported) Patient Home Medication List Home Medication List Reviewed: Yes Review of Systems Constitutional: see HPI Eyes: No Symptoms Reported Ears, Nose, Mouth, Throat: no symptoms reported Respiratory: no symptoms reported Cardiovascular: no symptoms reported Genitourinary: no symptoms reported Musculoskeletal: no symptoms reported Psychiatric/Neurological: See HPI Past [id number]-Yooqre Hx Patient Social History Recent Foreign Travel: No Contact w/Someone Who Travel: No Recent Hopitalizations: No Immunizations Up To Date Tetanus Booster (TDap): Unknown PED Vaccines UTD: No Date of Pneumonia Vaccine: Feb 20, 2017 Date of Influenza Vaccine: Feb 06, 2017 Seasonal Allergies Seasonal Allergies: Yes Past Medical History Surgeries: Yes (FISSURE SX AFTER HYSTERECTOMY, Rt. 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 LEFT FOOT) Arthritis, Chronic Back Pain, Fractures Endocrine: Yes Diabetes, Insulin dep Cataract Loss of Vision: Denies Hearing Impairment: Denies Cancer: No Psychosocial: No Integumentary: Yes Blood Disorders: Yes (Chronic ANEMIA- epo shots) Adverse Reaction/Blood Tranf: No (N/A) Family Medical History Alzheimer's disease 19 MOTHER Cardiovascular disease Cataract 19 MOTHER Cataracts Congestive heart failure 19 FATHER Dementia 19 MOTHER Dementia 19 MOTHER Diabetes mellitus Family history: Allergy 19 FATHER 19 MOTHER Family history: Alzheimer's disease 19 MOTHER Family history: Cardiovascular disease 19 MOTHER Family history: Diabetes mellitus G8 BROTHER G8 BROTHER G8 SISTER Family history: Hypertension 19 FATHER Hearing loss G8 BROTHER Heart disease 19 FATHER G8 BROTHER G8 BROTHER G8 SISTER Hypertension 19 FATHER 19 MOTHER G8 BROTHER Infertile 19 FATHER 19 MOTHER G8 BROTHER G8 BROTHER G8 SISTER Myocardial infarction 19 FATHER Myocardial infarction 19 FATHER Psychotic disorder 19 FATHER Severe allergy G8 BROTHER G8 BROTHER Stroke 19 FATHER No Family History of: AIDS Abdominal aortic aneurysm Abdominal aortic aneurysm Gigi's disease Gigi's disease Alcoholism Alcoholism Aphasia Aphasia Arthritis Asthma Cancer Cancer of colon Cancer of mouth Chest pain Colon cancer Completed stroke Congenital disease Congenital heart disease Congenital heart disease Coronary thrombosis Cystic fibrosis Cystic fibrosis Dysphagia Family history: Arthritis Family history: Asthma Family history: Breast disease Family history: Coronary thrombosis Family history: Gastrointestinal disease Family history: Glaucoma Family history: Osteoporosis Family history: Thyroid disorder Fibrocystic disease of breast Gastroenteritis Glaucoma Headache Headache disorder Hereditary disease History of - anemia History of - disorder History of - respiratory disease History of drug abuse Human immunodeficiency virus (HIV) seropositivity Hypercholesterolemia Hypercholesterolemia Kidney disease Malignant neoplasm of lung Neoplasm Not obtainable due to adoption Osteoporosis Parkinson's disease Parkinson's disease Prostate cancer Psychosocial problem Seizure disorder Seizure disorder Thyroid disease Tuberculosis Tuberculosis Visual disorder Visual impairment Physical Exam Vital Signs Vital Signs - First Documented 08/18/17 08/18/17 15:17 15:19 Temp 98.1 Pulse 74 Resp 20 B/P (MAP) 200/99 (132) Pulse Ox 94 O2 Delivery Nasal Cannula Capillary Refill : General Appearance: WD/WN, no apparent distress, obese HEENT: PERRL/EOMI, normal ENT inspection, other (Both pupils are dilated at about 8 mm however, the patient and family confirms that she had eyes dilated at ophthalmology appointment.) Neck: non-tender, full range of motion Respiratory: no respiratory distress, no accessory muscle use Cardiovascular: regular rate, rhythm, no murmur Gastrointestinal: normal bowel sounds, non tender Neurologic/Psychiatric: alert, normal mood/affect, oriented x 3 Crainal Nerves: normal hearing, normal speech Motor/Sensory: pronator drift (R) Skin: normal color, warm/dry, other (ulcerated wound 2cm rather shallow to medial left heel. Also small ulcer 0.5cm to distal plantar surface of right great toe ) Stroke Onset of Symptoms Date of Onset of Symptoms: Aug 18, 2017 Time of Symptom Onset: 15:28 (Time of symptom onset was between 1:15 and 2:30 PM. Her last seen well time was 1:15 PM) Symptoms onset unknown: Yes NIH Stroke Scale Assessment Select: Initial Level of Consciousness: 0=Alert (0), Level of Consciousness- Questions: 0=Answers both month/age (0), LOC Commands: 0=Performs both tasks (0) , Gaze: Normal (0), Visual Rahman: 0=No visual loss (0), Facial Movement ( Facial Paresis): 0=Normal symmetrical mnt (0), Motor Function-Arms Right: 1= Drift (1), Motor Function-Arms Left: 0=No drift (0), Motor Function-Legs Right: 0=No drift (0), Motor Function-Legs Left: 0=No drift (0), Limb Ataxia: 0=Absent (0), Sensory: 0=Normal:no loss (0), Best Language: 1=Mild to moderat aphasia Speech is clear but has trouble finding words/word searching (1), Dysarthria: 0= Normal (0), Extinction & Inattention: 0=No abnormality (0), Total: 2 Stroke Thrombolytic Exclusion Age 18 or Over: Yes Acute intenal hemorrhage: No History of CVA: Yes Uncontrolled Coagulation Defec: No Intracranial Hemorrhage: No Severe Hypertension: Yes GI or Bleed: No Subarachnoid Hemorrhage: No Intracranial Neoplasm/Aneurysm: No Oral Anticoagulants: No Surgery or Trauma: No Puncture of Non-Compressible V: No Recent CPR: No Diabetic Hemorrhagic Retinopat: No Organ Biopsy: No Recent Obstetric Delivery: No Glucose: No Significant Hepatic Dysfunctio: No NIH Stoke Scale >22: No Bacterial Endocarditis: No Pericarditis: No Improving Symptoms: No Platelets: No TPA Contraindication: Yes Progress/Results/Core Measures Lab Results Laboratory Tests Test 08/18/17 15:31 08/18/17 15:39 08/18/17 16:54 Range/Units White Blood Count 6.5 4.3-11.0 10^3/uL Red Blood Count 3.89 L 4.35-5.85 10^6/uL Hemoglobin 11.2 L 11.5-16.0 G/DL Hematocrit 36 35-52 % Mean Corpuscular Volume 92 80-99 FL Mean Corpuscular Hemoglobin 29 25-34 PG Mean Corpuscular Hemoglobin Concent 31 L 32-36 G/DL Red Cell Distribution Width 14.6 H 10.0-14.5 % Platelet Count 264 130-400 10^3/uL Mean Platelet Volume 9.4 7.4-10.4 FL Neutrophils (%) (Auto) 63 42-75 % Lymphocytes (%) (Auto) 27 12-44 % Monocytes (%) (Auto) 9 0-12 % Eosinophils (%) (Auto) 2 0-10 % Basophils (%) (Auto) 1 0-10 % Neutrophils # (Auto) 4.0 1.8-7.8 X 10^3 Lymphocytes # (Auto) 1.7 1.0-4.0 X 10^3 Monocytes # (Auto) 0.6 0.0-1.0 X 10^3 Eosinophils # (Auto) 0.1 0.0-0.3 10^3/uL Basophils # (Auto) 0.0 0.0-0.1 10^3/uL Prothrombin Time 13.8 12.2-14.7 SEC INR Comment 1.1 0.8-1.4 Activated Partial Thromboplast Time 28 24-35 SEC D-Dimer 1.34 H 0.00-0.49 UG/ML Sodium Level 138 135-145 MMOL/L Potassium Level 5.5 H 3.6-5.0 MMOL/L Chloride Level 104 98-107 MMOL/L Carbon Dioxide Level 24 21-32 MMOL/L Anion Gap 10 5-14 MMOL/L Blood Urea Nitrogen 52 H 7-18 MG/DL Creatinine 2.77 H 0.60-1.30 MG/DL Estimat Glomerular Filtration Rate 17 BUN/Creatinine Ratio 19 Glucose Level 213 H 70-105 MG/DL Calcium Level 9.6 8.5-10.1 MG/DL Total Bilirubin 0.4 0.1-1.0 MG/DL Aspartate Amino Transf (AST/SGOT) 22 5-34 U/L Alanine Aminotransferase (ALT/SGPT) 17 0-55 U/L Alkaline Phosphatase 76 40-136 U/L Troponin I < 0.30 <0.30 NG/ML Total Protein 7.6 6.4-8.2 GM/DL Albumin 3.4 3.2-4.5 GM/DL Glucometer 214 H 70-110 MG/DL Urine Color YELLOW Urine Clarity CLEAR Urine pH 7 5-9 Urine Specific [place] 1.015 L 1.016-1.022 Urine Protein 4+ NEGATIVE Urine Glucose (UA) 2+ H NEGATIVE Urine Ketones NEGATIVE NEGATIVE Urine Nitrite NEGATIVE NEGATIVE Urine Bilirubin NEGATIVE NEGATIVE Urine Urobilinogen NORMAL NORMAL MG/DL Urine Leukocyte Esterase 1+ H NEGATIVE Urine RBC (Auto) 2+ H NEGATIVE Urine RBC 0-2 /HPF Urine WBC 2-5 /HPF Urine Squamous Epithelial Cells 5-10 /HPF Urine Crystals NONE /LPF Urine Bacteria TRACE /HPF Urine Casts NONE /LPF Urine Mucus NEGATIVE /LPF Urine Culture Indicated YES My Orders Orders - DEMOND GASTELUM APRN Cbc With Automated Diff (08/18/17:) Protime With Inr (08/18/17:) Partial Thromboplastin Time (08/18/17:) Comprehensive Metabolic Panel (08/18/17:) Fibrin Degradation Products (08/18/17:) Troponin I (08/18/17:) Ua Culture If Indicated (08/18/17:) Chest 1 View, Ap/Pa Only (08/18/17:) Ekg Tracing (08/18/17:) Nothing By Mouth (08/18/17 Dinner) Accucheck Stat ONCE (08/18/17:) Saline Lock/Iv-Start (08/18/17:) Saline Lock/Iv-Start (08/18/17:) Vital Signs Stroke Patient Q15M (08/18/17:) Ct Head Wo-R/O Stroke (08/18/17:) O2 (08/18/17:) Intake & Output 06,14,22 (08/18/17 15:) Monitor-Rhythm Ecg Trace Only (08/18/17:) Dysphagia Screening Tool (4/13/18 15:23) Post Thrombolytic Adminstratio (08/18/17 15:23) Metoprolol Tartrate Injection (Lopressor (08/18/17 15:45) Medications Given in ED Current Medications Medications Dose Ordered Sig/Solomon Route Start Time Stop Time Status Last Admin Dose Admin Metoprolol Tartrate 5 mg ONCE ONCE IV 08/18/17 15:45 08/18/17 15:46 DC 08/18/17 16:05 5 MG Vital Signs/I&O 08/18/17 08/18/17 15:17 15:19 Temp 98.1 Pulse 74 Resp 20 B/P (MAP) 200/99 (132) Pulse Ox 94 94 O2 Delivery Nasal Cannula Room Air Progress Note : Progress Note 1515- time of my initial exam. Her NIH stroke scale is a 2 with one point for drift of the right arm which is mild as well as 1 point for Moderate aphasia. Her speech is clear but there is some word searching going on. She states that her vision is baseline poor due to cataracts. Currently she has dilated pupils from her ophthalmology appointment, so this is difficult to assess, but she does not feel there is any vision difference from baseline. 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 There is no drift and no limb ataxia. Her blood pressure is 200/99, heart rate 76, sinus without ectopy. 1546- I did speak with Kami, office staff at [facility] where the patient was seeing Dr. Chisholm (?). Office staff reports that they pulled Cedrick back to a room at about 1:20 PM and she did seem to be a little disoriented, speech seemed clear, but again seemed to have some trouble finding words at 1:20 PM. However, she states that she is taken care of Cedrick before and has noticed slow/delayed speech in the past so this was not terribly alarming today, but did seem a bit worse than usual. 1627- at this time. Her NIH stroke scale is a 1 and that is for minor drift of the right arm. Her dysphasia/word searching seems improved at this time and speech remains clear. Blood pressure remains elevated at 181/100. Lopressor 5 mg was given just about 10 minutes ago for blood pressure of 190/100. Due to her chronic kidney disease stage IV, I did not do a CT angiogram of the head and neck. She is already on Plavix 75 mg daily. I just now spoke with Dr. Verma from the neurology stroke line (direct line [phone]). He does agrees to proceed with MRI imaging and conservative treatment at this point without the administration of TPA given the improving symptoms and low NIH score. If she was to have a stroke. It would be a small stroke, alternatively symptoms could be from her hypertension. Additionally, the patient is a Jehovah' s Witness. I discussed with the family that I would be a bit apprehensive about giving thrombolytics with the subsequent risk for bleeding given that she is Religion and the treatment of any hemorrhage might be more challenging. They do agree with this. Patient also reports at this time that she seems to have had some very black diarrhea over the past few weeks. I did do a fecal occult test at the bedside, which is negative for blood. We will proceed with MRI noncontrast of the brain, gingerly reducing her blood pressure. 1651- patient was taken to MRI and unfortunately due to body habitus She will not fit in the MRI machine. 1724- spoke with Dr. Byrd. He agrees to accept the patient for admission. We' ll place the patient in the ICU, gingerly reduce her blood pressure. At this time after 5 mg of Lopressor her blood pressure was still 193/79, so an additional 5 mg of Lopressor was given just now. Heart rate remained 79, sinus without ectopy. Her NIH stroke scale is at a 1 at this point for continued very mild pronator drift of the right arm. She denies any sensory loss at this time. I have added Norvasc 5 mg orally to be given at this time. Diagonstic Imaging: Xray, CT Comments NAME: CEDRICK [facility]S [facility] REC#: [id number] PT STATUS: REG ER : 1950 PHYSICIAN: DEMOND GASTELUM APRN ADMIT DATE: 08/18/17/ER Draft Date of Exam:08/18/17 CHEST 1 VIEW, AP/PA ONLY INDICATION: Right-sided numbness and slurred speech EXAM: Frontal chest obtained at 3:44 hours p.m. COMPARISON: 06/29/2017 FINDINGS: There is cardiomegaly. There is central vascular prominence. There is no focal infiltrate or pneumothorax or pleural fluid. IMPRESSION: Cardiomegaly with mild central vascular prominence. No acute infiltrate. Right IJ central catheter tip overlies the SVC. Dictated on workstation # [id number] Dict: 08/18/17 1551 Trans: 08/18/17 1554 [facility] [id number] Interpreted by: ROHIT AMATO MD Electronically signed by: NAME: CEDRICK ALBERTS [facility] REC#: [id number] PT STATUS: REG ER : 1950 PHYSICIAN: DEMOND GASTELUM APRN ADMIT DATE: 08/18/17/ER Draft Date of Exam:08/18/17 CT HEAD WO-R/O STROKE INDICATION: Slurred speech. Right-sided numbness. TECHNIQUE: Routine non contrast-enhanced axial images were obtained from the skull base to the vertex. COMPARISON: 02/26/2017 FINDINGS: The ventricles and cortical sulci are diffusely prominent, compatible with age-related volume loss. There are confluent areas of abnormal, low attenuation in the periventricular white matter. This is consistent with chronic small vessel ischemic changes. There is no midline shift or mass-effect. No acute intra-axial hemorrhage is seen. There are no abnormal areas of increased or decreased density to suggest acute hemorrhage or edema. No extra-axial masses or collections are present. The bony calvarium is intact. The visualized paranasal sinuses are unremarkable. The mastoid air cells are clear. IMPRESSION: 1. No acute intracranial abnormality. No CT evidence of mass, acute infarct or intracranial hemorrhage. 2. Chronic small vessel ischemic changes in the deep white matter. Dictated on workstation # [id number] Dict: 08/18/17 1553 Trans: 08/18/17 1600 [facility] [id number] Interpreted by: HONORIO BUITRAGO MD Electronically signed by: Departure Impression Primary Impression: CKD (chronic kidney disease) Additional Impressions: Stroke-like symptoms Hypertension Disposition: 01 HOME, SELF-CARE Condition: Stable Departure-Patient Inst. Referrals: MARY FRAGOSO MD (PCP/Family) Primary Care Physician DEMOND GASTELUM APRN Aug 18, 2017 15:32
[2017-08-18 15:39] LABS: BASOPHILS % (AUTO) 1 % (0-10); EOSINOPHILS # (AUTO) 0.1 10^3/uL (0.0-0.3); EOSINOPHILS % (AUTO) 2 % (0-10); HEMATOCRIT 36 % (35-52); HEMOGLOBIN 11.2 G/DL (11.5-16.0); LYMPHOCYTES # (AUTO) 1.7 X 10^3 (1.0-4.0); LYMPHOCYTES % (AUTO) 27 % (12-44); MEAN CORPUSCULAR HEMOGLOBIN 29 PG (25-34); MEAN CORPUSCULAR HGB CONC 31 G/DL (32-36); MEAN CORPUSCULAR VOLUME 92 FL (80-99); MEAN PLATELET VOLUME 9.4 FL (7.4-10.4); MONOCYTES # (AUTO) 0.6 X 10^3 (0.0-1.0); MONOCYTES % (AUTO) 9 % (0-12); NEUTROPHILS % (AUTO) 63 % (42-75); PLATELET COUNT 264 10^3/uL (130-400); RED BLOOD COUNT 3.89 10^6/uL (4.35-5.85); RED CELL DISTRIBUTION WIDTH 14.6 % (10.0-14.5); WHITE BLOOD COUNT 6.5 10^3/uL (4.3-11.0)
[2017-08-18] MEDS ORDERED: meTOprolol 5 MG/5 ML (LOPRESSOR) VIAL IV ONE ×2 (15:45→17:30)
[2017-08-18 15:47] LABS: INR 1.1 (0.8-1.4); PROTHROMBIN TIME PATIENT 13.8 SEC (12.2-14.7)
[2017-08-18 15:50] LABS: FIBRIN DEGRADATION PRODUCTS 1.34 UG/ML (0.00-0.49)
[2017-08-18 15:55] LABS: ALANINE AMINOTRANSFERASE 17 U/L (0-55); ALBUMIN 3.4 GM/DL (3.2-4.5); ALKALINE PHOSPHATASE 76 U/L (40-136); BILIRUBIN,TOTAL 0.4 MG/DL (0.1-1.0); BUN/CREATININE RATIO 19; CALCIUM 9.6 MG/DL (8.5-10.1); CARBON DIOXIDE 24 MMOL/L (21-32); CHLORIDE 104 MMOL/L (98-107); CREATININE SERUM 2.77 MG/DL (0.60-1.30); GFR ESTIMATED 17; GLUCOSE 213 MG/DL (70-105); POTASSIUM 5.5 MMOL/L (3.6-5.0); SODIUM 138 MMOL/L (135-145); TOTAL PROTEIN 7.6 GM/DL (6.4-8.2)
--- NOTE | 2017-08-18 15:55 | Diagnostic Imaging Report ---
INDICATION: Right-sided numbness and slurred speech EXAM: Frontal chest obtained at 3:44 hours p.m. COMPARISON: 06/29/2017 FINDINGS: There is cardiomegaly. There is central vascular prominence. There is no focal infiltrate or pneumothorax or pleural fluid. IMPRESSION: Cardiomegaly with mild central vascular prominence. No acute infiltrate. Right IJ central catheter tip overlies the SVC. Dictated by: Dictated on workstation # [id number]
--- NOTE | 2017-08-18 16:01 | Diagnostic Imaging Report ---
INDICATION: Slurred speech. Right-sided numbness. TECHNIQUE: Routine non contrast-enhanced axial images were obtained from the skull base to the vertex. COMPARISON: 02/26/2017 FINDINGS: The ventricles and cortical sulci are diffusely prominent, compatible with age-related volume loss. There are confluent areas of abnormal, low attenuation in the periventricular white matter. This is consistent with chronic small vessel ischemic changes. There is no midline shift or mass-effect. No acute intra-axial hemorrhage is seen. There are no abnormal areas of increased or decreased density to suggest acute hemorrhage or edema. No extra-axial masses or collections are present. The bony calvarium is intact. The visualized paranasal sinuses are unremarkable. The mastoid air cells are clear. IMPRESSION: 1. No acute intracranial abnormality. No CT evidence of mass, acute infarct or intracranial hemorrhage. 2. Chronic small vessel ischemic changes in the deep white matter. Dictated by: Dictated on workstation # [id number]
[2017-08-18 17:02] LABS: BILIRUBIN,URINE NEGATIVE (NEGATIVE); CLARITY,URINE CLEAR; COLOR,URINE YELLOW; GLUCOSE, URINE (UA) 2+ (NEGATIVE); KETONES,URINE NEGATIVE (NEGATIVE); LEUKOCYTE ESTERASE ,URINE 1+ (NEGATIVE); NITRITE,URINE NEGATIVE (NEGATIVE); PH,URINE 7 (5-9); PROTEIN,URINE 4+ (NEGATIVE); UROBILINOGEN,URINE NORMAL (NORMAL)
[2017-08-18 17:12] LABS: BACTERIA,URINE TRACE /HPF; RBC,URINE 0-2 /HPF
[2017-08-18] MEDS ORDERED: amLODIPine 5 MG (NORVASC) TAB PO ONE (17:30)
[2017-08-18] MEDS ORDERED: CATHETER FLUSH 10 ML SYR IV PRN (18:30)
[2017-08-18] MEDS: niCARdipine IV 50 MG in NS (IVPB) 230 ML IV SCH (19:02)
[2017-08-18] MEDS: CLOPIDOGREL 75 MG (PLAVIX) TABLET PO SCH (20:39)
[2017-08-18] MEDS: HYDROcodone/APAP 5 MG/325 MG (LORTAB) TAB PO PRN (20:39)
[2017-08-18] MEDS: NS IV 1000 ML 1,000 ML IV SCH (20:40)
[2017-08-18] MEDS: fentaNYL INJECTION 100 MCG/2 ML AMP IV PRN ×4 (20:40→22:29)
[2017-08-18] MEDS ORDERED: inSUlin (REGULAR) HUMAN 1 UNIT/0.01 ML (CHARGE PER UNIT) ONE (21:56)
[2017-08-18] MEDS: inSUlin (REGULAR) HUMAN 1 UNIT/0.01 ML (CHARGE PER UNIT) SC SCH (22:01)
[2017-08-19] VITALS (27 sets, daily range): BP systolic 136–208; BP diastolic 68–119
[2017-08-19 03:47] LABS: BASOPHILS % (AUTO) 1 % (0-10); EOSINOPHILS # (AUTO) 0.1 10^3/uL (0.0-0.3); EOSINOPHILS % (AUTO) 2 % (0-10); HEMATOCRIT 33 % (35-52); HEMOGLOBIN 10.3 G/DL (11.5-16.0); LYMPHOCYTES # (AUTO) 1.9 X 10^3 (1.0-4.0); LYMPHOCYTES % (AUTO) 31 % (12-44); MEAN CORPUSCULAR HEMOGLOBIN 29 PG (25-34); MEAN CORPUSCULAR HGB CONC 31 G/DL (32-36); MEAN CORPUSCULAR VOLUME 93 FL (80-99); MEAN PLATELET VOLUME 9.8 FL (7.4-10.4); MONOCYTES # (AUTO) 0.7 X 10^3 (0.0-1.0); MONOCYTES % (AUTO) 11 % (0-12); NEUTROPHILS # (AUTO) 3.4 X 10^3 (1.8-7.8); NEUTROPHILS % (AUTO) 55 % (42-75); PLATELET COUNT 235 10^3/uL (130-400); RED BLOOD COUNT 3.54 10^6/uL (4.35-5.85); RED CELL DISTRIBUTION WIDTH 14.6 % (10.0-14.5); WHITE BLOOD COUNT 6.1 10^3/uL (4.3-11.0)
[2017-08-19 04:19] LABS: CREATININE SERUM 2.43 MG/DL (0.60-1.30); MAGNESIUM 1.9 MG/DL (1.8-2.4); PHOSPHORUS 4.3 MG/DL (2.3-4.7)
[2017-08-19] MEDS: POTASSIUM CL 10MEQ/50ML IVPB 50 ML IV SCH (04:35)
[2017-08-19] MEDS: MAGNESIUM 1 GM/100 ML IVPB 100 ML IV SCH (04:35)
[2017-08-19] MEDS: KCL 20 MEQ TAB (K-DUR) PO SCH (04:35)
[2017-08-19] MEDS: NS IV 1000 ML 1,000 ML IV SCH ×2 (04:36→09:36)
[2017-08-19] MEDS: niCARdipine IV 50 MG in NS (IVPB) 230 ML IV SCH ×2 (04:41→15:08)
--- NOTE | 2017-08-19 07:37 | Diagnostic Imaging Report ---
EXAMINATION: Chest radiograph, portable AP view. DATE: 08/19/2017 at 0329 hours. INDICATION: 67-year-old female, history of transient ischemic attack versus stroke. COMPARISON: 08/18/2017. FINDINGS: The right-sided venous line overlies the mid SVC. Stable overall appearance of the cardiomediastinal silhouette. There is no identified pneumothorax. There is no large pleural effusion. There is no identified interval focal airspace consolidation. Lung volumes are somewhat low with associated central bronchovascular crowding. IMPRESSION: 1. No identified interval acute cardiopulmonary abnormality. 2. Right-sided venous line overlying the mid SVC. Dictated by: Dictated on workstation # [id number]
[2017-08-19] MEDS ORDERED: CLOPIDOGREL 75 MG (PLAVIX) TABLET PO SCH (09:00)
[2017-08-19] MEDS ORDERED: METO-387 PO (12:17)
[2017-08-19] MEDS ORDERED: METR500T21 PO (12:17)
[2017-08-19] MEDS ORDERED: GABA-486 PO (12:17)
[2017-08-19] MEDS: inSUlin (REGULAR) HUMAN 1 UNIT/0.01 ML (CHARGE PER UNIT) SC SCH (12:22)
[2017-08-19] MEDS ORDERED: inSUlin DETERMIR 1 UNIT/0.01 ML (LEVEMIR) CHARGE PER UNIT SQ NR (12:30)
[2017-08-19] MEDS ORDERED: inSUlin ASPART (NovoLOG) 1 UNIT/0.01 ML (CHARGE PER UNIT) ONE (12:50)
[2017-08-19] MEDS: inSUlin ASPART (NovoLOG) 1 UNIT/0.01 ML (CHARGE PER UNIT) SC SCH ×4 (12:54→21:01)
--- NOTE | 2017-08-19 13:56 | History & Physicial (CHS) ---
HPI History of Present Illness: 67 yo F with history of TIA that presented to ER after being seen by eye doctor. Patient states that she was sitting in the patient chair with her head tilted back. When she sat up the right side of her face was numb, she was having troubles talking and her right arm went numb. Patient states that it was already improving by the time she got to the ER but was still having some numbness. She has had TIA in the past with the last one being 2 years ago. She just had surgery on her right big toe and has been on IV antibiotics for weeks. Patient was also found the have profoundly elevated blood pressure upon arrival to ER. She states that she had not taken any of her daily meds yet because she takes them at night. Denies any new symptoms or complaints this AM. Denies any chest pain or shortness of breath. Source: patient, old records Exam Limitations: no limitations Date seen by provider: Aug 19, 2017 Time Seen by Provider: 11:35 Attending Physician Francia Byrd MD PCP Mary Palomo MD Consult Date of Admission Aug 18, 2017 at 17:11 Home Medications Home Medications Reviewed patient Home Medication Reconciliation performed by pharmacy medication reconciliations c2 tactical analysis technician and/or nursing. Patients Allergies have been reviewed. Allergies Coded Allergies: Bacitracin Zinc (Unverified Allergy, Unknown, 07/11/17) Penicillins (Unverified Allergy, Unknown, HAS RECEIVED ROCEPHIN DURING PREVIOUS ADMIT, 07/11/17) bacitracin (Unverified Allergy, Unknown, 07/11/17) colistimethate sodium (Unverified Allergy, Unknown, 07/11/17) gramicidin D (Unverified Allergy, Unknown, 07/11/17) neomycin sulfate (Unverified Allergy, Unknown, 07/11/17) polymyxin B (Unverified Allergy, Unknown, 07/11/17) polymyxin B sulfate (Unverified Allergy, Unknown, 07/11/17) pramoxine HCl (Unverified Allergy, Unknown, 07/11/17) [id number] Hx Patient Social History Alcohol Use: Denies Use Recreational Drug Use: No Smoking Status: Never a Smoker Recent Foreign Travel: No Contact w/other who traveled: No Recent Hopitalizations: No Recent Infectious Disease Expo: No Physical Abuse Screen: No Sexual Abuse: No Immunizations Up To Date Tetanus Booster (TDap): Unknown Date of Pneumonia Vaccine: Feb 20, 2017 Date of Influenza Vaccine: Feb 06, 2017 Past Medical History HTN HERNAN on bipap COPD with 2L oxygen dependence IDDM CKD baseline Cr 2-2.5 h/o multiple TIAs Family Medical History Family History: Alzheimer's disease 19 MOTHER Cardiovascular disease Cataract 19 MOTHER Cataracts Congestive heart failure 19 FATHER Dementia 19 MOTHER Dementia 19 MOTHER Diabetes mellitus Family history: Allergy 19 FATHER 19 MOTHER Family history: Alzheimer's disease 19 MOTHER Family history: Cardiovascular disease 19 MOTHER Family history: Diabetes mellitus G8 BROTHER G8 BROTHER G8 SISTER Family history: Hypertension 19 FATHER Hearing loss G8 BROTHER Heart disease 19 FATHER G8 BROTHER G8 BROTHER G8 SISTER Hypertension 19 FATHER 19 MOTHER G8 BROTHER Infertile 19 FATHER 19 MOTHER G8 BROTHER G8 BROTHER G8 SISTER Myocardial infarction 19 FATHER Myocardial infarction 19 FATHER Psychotic disorder 19 FATHER Severe allergy G8 BROTHER G8 BROTHER Stroke 19 FATHER No Family History of: AIDS Abdominal aortic aneurysm Abdominal aortic aneurysm Lewis's disease Lewis's disease Alcoholism Alcoholism Aphasia Aphasia Arthritis Asthma Cancer Cancer of colon Cancer of mouth Chest pain Colon cancer Completed stroke Congenital disease Congenital heart disease Congenital heart disease Coronary thrombosis Cystic fibrosis Cystic fibrosis Dysphagia Family history: Arthritis Family history: Asthma Family history: Breast disease Family history: Coronary thrombosis Family history: Gastrointestinal disease Family history: Glaucoma Family history: Osteoporosis Family history: Thyroid disorder Fibrocystic disease of breast Gastroenteritis Glaucoma Headache Headache disorder Hereditary disease History of - anemia History of - disorder History of - respiratory disease History of drug abuse Human immunodeficiency virus (HIV) seropositivity Hypercholesterolemia Hypercholesterolemia Kidney disease Malignant neoplasm of lung Neoplasm Not obtainable due to adoption Osteoporosis Parkinson's disease Parkinson's disease Prostate cancer Psychosocial problem Seizure disorder Seizure disorder Thyroid disease Tuberculosis Tuberculosis Visual disorder Visual impairment Review of Systems ([facility]) Constitutional: no symptoms reported; No chills, No fever, No malaise, No weakness EENTM: other (denies facial numbness); No hearing loss, No blurred vision Respiratory: no symptoms reported; No cough, No dyspnea on exertion, No short of breath Cardiovascular: no symptoms reported; No chest pain, No edema, No palpitations Gastrointestinal: no symptoms reported; No abdominal pain, No constipation, No diarrhea, No nausea, No vomiting Genitourinary: no symptoms reported; No dysuria, No frequency, No hematuria : No Musculoskeletal: neck pain (Chronic) Skin: lesions (Chronic wounds) Psychiatric/Neurological: Denies Numbness, Denies Paresthesia, Denies Weakness Reviewed Test Results Reviewed Test Results Lab Laboratory Tests Test 08/18/17 15:31 08/18/17 15:39 08/18/17 16:54 08/18/17 18:32 Range/Units White Blood Count 6.5 4.3-11.0 10^3/uL Red Blood Count 3.89 L 4.35-5.85 10^6/uL Hemoglobin 11.2 L 11.5-16.0 G/DL Hematocrit 36 35-52 % Mean Corpuscular Volume 92 80-99 FL Mean Corpuscular Hemoglobin 29 25-34 PG Mean Corpuscular Hemoglobin Concent 31 L 32-36 G/DL Red Cell Distribution Width 14.6 H 10.0-14.5 % Platelet Count 264 130-400 10^3/uL Mean Platelet Volume 9.4 7.4-10.4 FL Neutrophils (%) (Auto) 63 42-75 % Lymphocytes (%) (Auto) 27 12-44 % Monocytes (%) (Auto) 9 0-12 % Eosinophils (%) (Auto) 2 0-10 % Basophils (%) (Auto) 1 0-10 % Neutrophils # (Auto) 4.0 1.8-7.8 X 10^3 Lymphocytes # (Auto) 1.7 1.0-4.0 X 10^3 Monocytes # (Auto) 0.6 0.0-1.0 X 10^3 Eosinophils # (Auto) 0.1 0.0-0.3 10^3/uL Basophils # (Auto) 0.0 0.0-0.1 10^3/uL Prothrombin Time 13.8 12.2-14.7 SEC INR Comment 1.1 0.8-1.4 Activated Partial Thromboplast Time 28 24-35 SEC D-Dimer 1.34 H 0.00-0.49 UG/ML Sodium Level 138 135-145 MMOL/L Potassium Level 5.5 H 3.6-5.0 MMOL/L Chloride Level 104 98-107 MMOL/L Carbon Dioxide Level 24 21-32 MMOL/L Anion Gap 10 5-14 MMOL/L Blood Urea Nitrogen 52 H 7-18 MG/DL Creatinine 2.77 H 0.60-1.30 MG/DL Estimat Glomerular Filtration Rate 17 BUN/Creatinine Ratio 19 Glucose Level 213 H 70-105 MG/DL Calcium Level 9.6 8.5-10.1 MG/DL Total Bilirubin 0.4 0.1-1.0 MG/DL Aspartate Amino Transf (AST/SGOT) 22 5-34 U/L Alanine Aminotransferase (ALT/SGPT) 17 0-55 U/L Alkaline Phosphatase 76 40-136 U/L Troponin I < 0.30 <0.30 NG/ML Total Protein 7.6 6.4-8.2 GM/DL Albumin 3.4 3.2-4.5 GM/DL Glucometer 214 H 304 H 70-110 MG/DL Urine Color YELLOW Urine Clarity CLEAR Urine pH 7 5-9 Urine Specific [place] 1.015 L 1.016-1.022 Urine Protein 4+ NEGATIVE Urine Glucose (UA) 2+ H NEGATIVE Urine Ketones NEGATIVE NEGATIVE Urine Nitrite NEGATIVE NEGATIVE Urine Bilirubin NEGATIVE NEGATIVE Urine Urobilinogen NORMAL NORMAL MG/DL Urine Leukocyte Esterase 1+ H NEGATIVE Urine RBC (Auto) 2+ H NEGATIVE Urine RBC 0-2 /HPF Urine WBC 2-5 /HPF Urine Squamous Epithelial Cells 5-10 /HPF Urine Crystals NONE /LPF Urine Bacteria TRACE /HPF Urine Casts NONE /LPF Urine Mucus NEGATIVE /LPF Urine Culture Indicated YES Test 08/18/17 21:40 08/19/17 03:39 08/19/17 11:14 Range/Units Glucometer 232 H 346 H 70-110 MG/DL White Blood Count 6.1 4.3-11.0 10^3/uL Red Blood Count 3.54 L 4.35-5.85 10^6/uL Hemoglobin 10.3 L 11.5-16.0 G/DL Hematocrit 33 L 35-52 % Mean Corpuscular Volume 93 80-99 FL Mean Corpuscular Hemoglobin 29 25-34 PG Mean Corpuscular Hemoglobin Concent 31 L 32-36 G/DL Red Cell Distribution Width 14.6 H 10.0-14.5 % Platelet Count 235 130-400 10^3/uL Mean Platelet Volume 9.8 7.4-10.4 FL Neutrophils (%) (Auto) 55 42-75 % Lymphocytes (%) (Auto) 31 12-44 % Monocytes (%) (Auto) 11 0-12 % Eosinophils (%) (Auto) 2 0-10 % Basophils (%) (Auto) 1 0-10 % Neutrophils # (Auto) 3.4 1.8-7.8 X 10^3 Lymphocytes # (Auto) 1.9 1.0-4.0 X 10^3 Monocytes # (Auto) 0.7 0.0-1.0 X 10^3 Eosinophils # (Auto) 0.1 0.0-0.3 10^3/uL Basophils # (Auto) 0.0 0.0-0.1 10^3/uL Sodium Level 136 135-145 MMOL/L Potassium Level 5.0 3.6-5.0 MMOL/L Chloride Level 106 98-107 MMOL/L Carbon Dioxide Level 21 21-32 MMOL/L Anion Gap 9 5-14 MMOL/L Blood Urea Nitrogen 52 H 7-18 MG/DL Creatinine 2.43 H 0.60-1.30 MG/DL Estimat Glomerular Filtration Rate 20 BUN/Creatinine Ratio 21 Glucose Level 195 H 70-105 MG/DL Calcium Level 9.0 8.5-10.1 MG/DL Phosphorus Level 4.3 2.3-4.7 MG/DL Magnesium Level 1.9 1.8-2.4 MG/DL Radiology Date of Exam: 08/18/17 CT HEAD WO-R/O STROKE INDICATION: Slurred speech. Right-sided numbness. TECHNIQUE: Routine non contrast-enhanced axial images were obtained from the skull base to the vertex. COMPARISON: 02/26/2017 FINDINGS: The ventricles and cortical sulci are diffusely prominent, compatible with age-related volume loss. There are confluent areas of abnormal, low attenuation in the periventricular white matter. This is consistent with chronic small vessel ischemic changes. There is no midline shift or mass-effect. No acute intra-axial hemorrhage is seen. There are no abnormal areas of increased or decreased density to suggest acute hemorrhage or edema. No extra-axial masses or collections are present. The bony calvarium is intact. The visualized paranasal sinuses are unremarkable. The mastoid air cells are clear. IMPRESSION: 1. No acute intracranial abnormality. No CT evidence of mass, acute infarct or intracranial hemorrhage. 2. Chronic small vessel ischemic changes in the deep white matter. Physical Exam-([facility]C) Physical Exam Vital Signs VS - Last 72 Hours, by Label 08/18/17 08/18/17 08/18/17 08/18/17 15:17 15:19 18:00 18:00 Temp 98.1 Pulse 74 59 Resp 20 20 B/P (MAP) 200/99 (132) 201/107 Pulse Ox 94 94 96 98 O2 Delivery Nasal Cannula Room Air Nasal Cannula Nasal Cannula O2 Flow Rate 2.00 2.00 08/18/17 08/18/17 08/18/17 08/18/17 19:00 19:00 19:15 19:30 Pulse 73 73 68 68 Resp 19 11 18 B/P (MAP) 224/130 (161) 162/79 (106) Pulse Ox 97 92 94 O2 Delivery Nasal Cannula Nasal Cannula Nasal Cannula O2 Flow Rate 1.00 1.00 1.00 08/18/17 08/18/17 08/18/17 08/18/17 19:38 19:45 20:00 20:00 Temp 97.0 Pulse 67 66 Resp 23 14 B/P (MAP) 193/105 (134) 159/81 (107) Pulse Ox 91 96 91 O2 Delivery Nasal Cannula Nasal Cannula Nasal Cannula Nasal Cannula O2 Flow Rate 2.00 1.00 2.00 1.00 08/18/17 08/18/17 08/18/17 08/18/17 20:15 20:30 20:45 21:00 Pulse 73 69 65 80 Resp 16 18 24 20 B/P (MAP) 154/94 (114) 198/104 (135) 173/92 (119) 159/92 (114) Pulse Ox 94 94 91 97 O2 Delivery Nasal Cannula Nasal Cannula Nasal Cannula Nasal Cannula O2 Flow Rate 1.00 1.00 1.00 1.00 08/18/17 08/18/17 08/18/17 08/18/17 21:15 21:30 21:45 22:00 Pulse 75 69 65 67 Resp 25 18 24 28 B/P (MAP) 198/104 (135) 173/92 (119) 185/83 (117) Pulse Ox 94 91 96 O2 Delivery Nasal Cannula Nasal Cannula Nasal Cannula Nasal Cannula O2 Flow Rate 1.00 1.00 1.00 1.00 08/18/17 08/18/17 08/18/17 08/18/17 22:10 22:15 22:30 22:45 Pulse 68 67 66 64 Resp 16 15 12 22 B/P (MAP) 172/98 (122) 147/68 (94) 155/77 (103) Pulse Ox 94 97 92 94 O2 Delivery NIV Bilevel NIV Bilevel NIV Bilevel NIV Bilevel O2 Flow Rate 1.00 1.00 1.00 1.00 08/18/17 08/18/17 08/18/17 08/18/17 23:00 23:15 23:30 23:45 Pulse 66 67 67 67 Resp 19 18 17 17 B/P (MAP) 150/76 (100) 137/67 (90) 145/66 (92) 129/64 (85) Pulse Ox 91 91 91 92 O2 Delivery NIV Bilevel NIV Bilevel NIV Bilevel NIV Bilevel O2 Flow Rate 1.00 1.00 1.00 1.00 08/19/17 08/19/17 08/19/17 08/19/17 00:00 00:00 00:15 00:30 Temp 98.0 Pulse 70 73 73 Resp 25 22 22 B/P (MAP) 136/82 (100) 159/77 (104) 166/84 (111) Pulse Ox 94 96 97 94 O2 Delivery NIV Bilevel Nasal Cannula NIV Bilevel NIV Bilevel O2 Flow Rate 1.00 2.00 1.00 1.00 08/19/17 08/19/17 08/19/17 08/19/17 01:00 01:00 02:00 03:00 Pulse 67 67 65 74 Resp 17 19 19 B/P (MAP) 155/96 (115) 160/85 (110) 180/78 (112) Pulse Ox 95 96 94 O2 Delivery NIV Bilevel NIV Bilevel NIV Bilevel O2 Flow Rate 1.00 1.00 1.00 08/19/17 08/19/17 08/19/17 08/19/17 04:00 04:00 05:00 06:00 Temp 98.8 Pulse 80 71 76 Resp 26 B/P (MAP) 156/90 (112) 154/77 (102) 168/82 (110) Pulse Ox 96 94 90 90 O2 Delivery Nasal Cannula NIV Bilevel NIV Bilevel NIV Bilevel O2 Flow Rate 2.00 1.00 1.00 1.00 08/19/17 08/19/17 08/19/17 08/19/17 07:00 07:00 08:00 08:00 Temp 97.6 Pulse 69 71 61 Resp 25 19 B/P (MAP) 186/95 (125) 208/91 (130) Pulse Ox 95 97 O2 Delivery NIV Bilevel NIV Bilevel Nasal Cannula O2 Flow Rate 1.00 1.00 2.00 08/19/17 08/19/17 08/19/17 08/19/17 08:10 08:54 09:00 10:00 Pulse 73 65 Resp 26 28 B/P (MAP) 165/119 (134) 169/86 (113) Pulse Ox 97 96 97 O2 Delivery Nasal Cannula Nasal Cannula Nasal Cannula Nasal Cannula O2 Flow Rate 2.00 2.00 1.00 1.00 08/19/17 08/19/17 08/19/17 11:00 11:50 12:00 Pulse 67 68 Resp 15 12 B/P (MAP) 166/81 (109) 189/95 (126) Pulse Ox 96 95 O2 Delivery Nasal Cannula Nasal Cannula Nasal Cannula O2 Flow Rate 1.00 2.00 1.00 Capillary Refill : Less Than 3 Seconds General Appearance: WD/WN, no apparent distress, obese HEENT: PERRL/EOMI Neck: non-tender, supple Respiratory: chest non-tender, lungs clear, normal breath sounds, no respiratory distress, no accessory muscle use, other Cardiovascular: normal peripheral pulses, regular rate, rhythm, no murmur Gastrointestinal: normal bowel sounds, non tender, soft Extremities: pedal edema (Chronic hemociderin deposition, 2+ pitting edema) Neurologic/Psychiatric: cereal chemist II-XII nml as tested, no motor/sensory deficits, alert, normal mood/affect, oriented x 3 Skin: other (Wound on left heal, Wound on Right great toe) Lymphatic: no adenopathy Assessment/Plan Assessment/Plan Admission Status: Inpatient Order (span 2 midnights) Reason for Inpatient Admission: Uncontrolled blood pressure requiring IV meds for control (1) TIA (transient ischemic attack) Status: Resolved Assessment & Plan: - Patient had normal CT scan, symptoms have resolved this AM - Statin, ASA and Plavix - Permissive hypertension at this time for protection following stroke like symptoms Qualifiers: Qualified Codes: G45.9 - Transient cerebral ischemic attack, unspecified (2) Hypertensive urgency Status: Acute Assessment & Plan: - Patient remains on Cardene drip goal 170s for permissive HTN - Restarted home BP meds (3) CKD (chronic kidney disease) stage 4, GFR 15-29 ml/min Status: Chronic Assessment & Plan: - At patient's baseline upon chart reviewed for the last year (4) 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 Assessment & Plan: - Restarting insulin today - Holding Gabapentin due to Cr - A1c pending (5) Hypertension Status: Chronic Assessment & Plan: - Restarted home meds, see above Qualifiers: Qualified Codes: I10 - Essential (primary) hypertension (6) Obesity hypoventilation syndrome Status: Chronic Assessment & Plan: - Patient has Bipap in room to use while sleeping (7) DVT prophylaxis Status: Acute Assessment & Plan: lovenox Clinical Quality Measures DVT/VTE Risk/Contraindication: Risk Factor Score Per Nursin RFS Level Per Nursing on Admit: 4+=Very High Stroke: Date of last known well: Aug 18, 2017 Time of last known well: 15:28 (Time of symptom onset was between 1:15 and 2: 30 PM. Her last seen well time was 1:15 PM) Symptoms onset unknown: Yes Copy Copies To 1: MARY PALOMO MD, HOLLY R MD Aug 19, 2017 13:56
[2017-08-19] MEDS: LOSARTAN 100 MG (COZAAR) TABLET PO SCH (15:07)
[2017-08-19 15:36] LABS: CHOLESTEROL 173 MG/DL (< 200); HDL CHOLESTEROL 43 MG/DL (40-60); TRIGLYCERIDES 184 MG/DL (<150); VLDL CHOLESTEROL 37 MG/DL (5-40)
[2017-08-19] MEDS ORDERED: amLODIPine 10 MG (NORVASC) TAB ONE (19:02)
[2017-08-19] MEDS: amLODIPine 10 MG (NORVASC) TAB PO SCH (19:07)
[2017-08-19] MEDS ORDERED: ENOXAPARIN 30 MG/0.3 ML (LOVENOX) SYR SC SCH (20:00)
[2017-08-19] MEDS ORDERED: LOSARTAN 100 MG (COZAAR) TABLET PO SCH (21:00)
[2017-08-19] MEDS: Brinzolamide/Brimonidine Tart (Simbrinza) 1%-0.2% Eye Drops OU SCH (21:14)
[2017-08-19] MEDS: inSUlin DETERMIR 1 UNIT/0.01 ML (LEVEMIR) CHARGE PER UNIT SQ SCH (21:14)
[2017-08-19] MEDS: metroNIDAZOLE 500 MG (FLAGYL) TAB PO SCH (21:15)
[2017-08-19] MEDS: ROSUVASTATIN 20 MG (CRESTOR) TABLET PO SCH (21:16)
[2017-08-19] MEDS: MULTIVIT W/MINERALS TAB (THERAGRAN M) PO SCH (21:17)
[2017-08-19] MEDS: ASPIRIN E.C. 81 MG (ECOTRIN) TAB PO SCH (21:17)
[2017-08-19] MEDS: CLOPIDOGREL 75 MG (PLAVIX) TABLET PO SCH (21:17)
[2017-08-20] VITALS (27 sets, daily range): BP systolic 115–191; BP diastolic 56–92
[2017-08-20] MEDS: HYDROcodone/APAP 5 MG/325 MG (LORTAB) TAB PO PRN (01:00)
[2017-08-20] MEDS: niCARdipine IV 50 MG in NS (IVPB) 230 ML IV SCH (01:38)
[2017-08-20 03:37] LABS: BASOPHILS % (AUTO) 0 % (0-10); EOSINOPHILS # (AUTO) 0.1 10^3/uL (0.0-0.3); EOSINOPHILS % (AUTO) 2 % (0-10); HEMATOCRIT 32 % (35-52); HEMOGLOBIN 10.2 G/DL (11.5-16.0); LYMPHOCYTES # (AUTO) 1.2 X 10^3 (1.0-4.0); LYMPHOCYTES % (AUTO) 16 % (12-44); MEAN CORPUSCULAR HEMOGLOBIN 29 PG (25-34); MEAN CORPUSCULAR HGB CONC 32 G/DL (32-36); MEAN CORPUSCULAR VOLUME 92 FL (80-99); MEAN PLATELET VOLUME 9.9 FL (7.4-10.4); MONOCYTES # (AUTO) 0.6 X 10^3 (0.0-1.0); MONOCYTES % (AUTO) 8 % (0-12); NEUTROPHILS # (AUTO) 5.6 X 10^3 (1.8-7.8); NEUTROPHILS % (AUTO) 74 % (42-75); PLATELET COUNT 233 10^3/uL (130-400); RED CELL DISTRIBUTION WIDTH 14.3 % (10.0-14.5); WHITE BLOOD COUNT 7.6 10^3/uL (4.3-11.0)
[2017-08-20 04:05] LABS: CALCIUM 8.8 MG/DL (8.5-10.1); CREATININE SERUM 2.05 MG/DL (0.60-1.30); POTASSIUM 5.1 MMOL/L (3.6-5.0)
[2017-08-20] MEDS: KCL 20 MEQ TAB (K-DUR) PO SCH (04:08)
[2017-08-20] MEDS: POTASSIUM CL 10MEQ/50ML IVPB 50 ML IV SCH (04:08)
[2017-08-20] MEDS: MAGNESIUM 1 GM/100 ML IVPB 100 ML IV SCH (04:08)
[2017-08-20] MEDS: inSUlin ASPART (NovoLOG) 1 UNIT/0.01 ML (CHARGE PER UNIT) SC SCH ×7 (07:17→20:54)
--- OUTSIDE RECORDS SUMMARY | 2017-08-20 07:59 | XMS REPORT | Clinical Summary ---
Author Author [facility] Organization [facility] Address Unknown Phone Unavailable Care Team Providers Care Home Stager Name Role Phone Tobi Benson MD PCP Source Comments Some departments are not documenting in the electronic medical record. If you do not see the information that you expected, contact Release of Information in the Health Information Management department at [phone] for further assistance in locating additional records.[facility] Allergies Not on File Current Medications Not on file Active Problems Not on file Social History Tobacco Use Types Packs/Day Years Used Date Never Assessed Sex Assigned at Date Recorded Not on file Last Filed Vital Signs Not on file Plan of Treatment Health Maintenance Due Date Last Done Comments HEPATITIS C SCREENING 1952 PHYSICAL (COMPREHENSIVE) 1959 EXAM PERTUSSIS VACCINE 1963 HIV SCREENING 1967 TETANUS VACCINE 1969 BREAST CANCER SCREENING 1992 COLORECTAL CANCER 2002 SCREENING SHINGLES VACCINE 2012 OSTEOPOROSIS SCREENING 2017 PREVNAR/PNEUMOVAX (#1) 2017 INFLUENZA VACCINE 02/05/2018 Results Not on filefrom Last 3 Months
--- OUTSIDE RECORDS SUMMARY | 2017-08-20 08:01 | XMS REPORT ---
Author Author [facility] Address [address] [place] [address] Care Team Providers Care Snipper Name Role Phone MARY FRAGOSO Unavailable PROBLEMS Type Condition ICD9-CM Code [id number] Code Onset Dates Condition Status SNOMED Code Problem Anemia in other chronic diseases classified elsewhere D63.8 Active 558844343 Problem Diarrhea, unspecified type R19.7 Active 08307561 Problem Type 2 diabetes mellitus with diabetic polyneuropathy E11.42 Active 377182887 Problem Anxiety about health F41.8 Active 414647207 Problem Aortic valve sclerosis I35.8 Active 29880530 Problem Port catheter in place Z95.828 Active 140812284 Problem Generalized osteoarthritis M15.9 Active 821429073 Problem Coronary artery disease involving [place] coronary artery of [place] heart, angina presence unspecified I25.10 Active 7969856993916 Problem Presence of IVC filter Z95.828 Active 312726578 Problem Trochanteric bursitis of left hip M70.62 Active 610447012785700 Problem BMI 50.0-59.9, adult Z68.43 Active 829983267 Problem Hypoxemia R09.02 Active 124887541 Problem Iron deficiency anemia, unspecified iron deficiency anemia type D50.9 Active 36287113 Problem Mixed hyperlipidemia E78.2 Active 298141861 Problem Essential hypertension I10 Active 97753829 Problem Severe sleep apnea G47.30 Active 05496050 Problem 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 Active 8587864 Problem Type 2 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 Active 45494494 Problem Decreased diffusion capacity R94.2 Active 31652250 Problem Type 2 diabetes mellitus with hyperglycemia E11.65 Active 52203816 Problem Renal osteodystrophy N25.0 Active 54809943 Problem Stenosis of carotid artery, unspecified laterality I65.29 Active 67466477 Problem Type 2 diabetes mellitus with foot ulcer E11.621 Active 619543749 Problem Chronic kidney disease, stage 3 (moderate) N18.3 Active 680762683 ALLERGIES No Information ENCOUNTERS Encounter Location Date Diagnosis [place] [address] [address] 24 Aug, 2017 Medicare annual wellness visit, initial Z00.00 [place] [address] [address]- [address] 14 Jul, 2017 Anxiety about health F41.8 and Mixed hyperlipidemia E78.2 [place] [address] [address]- 3168 13 Jul, 2017 [place] [address] 16879- 6143 12 Jun, 2017 [place] [address] 09409- 0988 12 Jun, 2017 Type 2 diabetes mellitus with hyperglycemia E11.65 ; Type 2 diabetes mellitus with foot ulcer E11.621 ; Port catheter in place Z95.828 ; 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 ; Contact with and (suspected) exposure to potentially hazardous body fluids Z77.21 and BMI 50.0-59.9, adult Z68.43 [place] [address] [place] [id number] [place] [address] 95009- 8861 May, [place] [address] [place] [id number] [place] [address] 74604- 2271 May, Open wound of right great toe, subsequent encounter S91.101D [place] [address] [place] [id number] [place] [address] 85750- 5050 May, [place] [address] 51022- 3907 Apr, [place] [address] [place] [id number] [place] [address] 19673- 6498 Apr, [place] [address] 7[address]97- 2227 Apr, [place] [address] [place] [address] 12687- 7487 14 Apr, 2017 Type 2 diabetes mellitus with diabetic polyneuropathy E11.42 [place] [address] [place] [id number] [place] [address] 28977- 5764 13 Apr, 2017 Open wound of right great toe, subsequent encounter S91.101D [address] [address]- 2136 08 Apr, 2017 Open wound of right great toe, subsequent encounter S91.101D ; Breast pain, left N64.4 ; Breast cancer screening Z12.31 ; Type 2 diabetes mellitus with foot ulcer E11.621 ; Essential hypertension I10 and BMI 50.0-59.9, adult Z68.43 [place] [id number] [place] [address] 41869- 8700 29 Mar, 2017 Encounter for immunization Z23 [address] [address]- 0254 Mar, [place] [address] 79958- 5295 Mar, [place] [id number] [place] [address] 72568- 5632 10 Mar, 2017 Type 2 diabetes mellitus with diabetic polyneuropathy E11.42 ; Type 2 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 ; Type 2 diabetes mellitus with foot ulcer E11.621 ; Essential hypertension I10 ; Hypoxemia R09.02 and Generalized osteoarthritis M15.9 [place] [id number] [place] [address] 45453- 5054 02 Mar, 2017 Chronic kidney disease, stage 3 (moderate) N18.3 ; Acute cystitis without hematuria N30.00 ; Essential hypertension I10 ; Muscle spasms of neck M62.838 ; Type 2 diabetes mellitus with diabetic polyneuropathy E11.42 and BMI 50.0-59.9, adult Z68.[address] [address]- [address] Feb, [facility] [address] [address] Feb, [facility] [address] [address] 1654 Feb, [facility] [address] [address] 4908 Feb, [facility] [address] [place] [id number] [place] [address] 30161- 1739 Feb, [facility] [address] [address]- 8864 Feb, [facility] [address] [place] [id number] [place] [address] 40856- 3293 Feb, Mixed hyperlipidemia E78.2 [facility] [address] [address]- 2630 Feb, [facility] [address] [address]- 3013 Jan, [facility] [address] [address]- 1566 Jan, Generalized osteoarthritis M15.9 [facility] [address], [place] [address]- 1026 Oct, [facility] [address], [place] [address]- 1779 Jul, [facility] [address] [address]- 2405 Jul, [facility] [address] [address] 02 Jul, 2017 Type 2 diabetes mellitus with hyperglycemia E11.65 ; Chronic kidney disease, stage 3 (moderate) N18.3 ; Type 2 diabetes mellitus with foot ulcer E11.621 ; Type 2 diabetes mellitus with diabetic polyneuropathy E11.42 ; Generalized osteoarthritis M15.9 ; Trochanteric bursitis of left hip M70.62 and Tinea pedis of both feet B35.3 [place] [address] [place] [address] 00830- 1679 13 Jun, 2016 [place] [address] [place] [id number] [place] [address] 23549- 7217 Apr, [place] [address] [place] [id number] [place] [address] 55853- 7996 Apr, [place] [address] [place] [id number] [place] [address] 25376- 8351 Mar, [place] [address] [place] [id number] [place] [address] 21893- 1712 Feb, Encounter for immunization Z23 [place] [address] [place] [id number] [place] [address] 14494- 6181 Feb, [place] [address] 38067- 1722 Feb, Type 2 diabetes mellitus with hyperglycemia E11.65 ; Encounter for immunization Z23 ; Diarrhea, unspecified type R19.7 ; Essential hypertension I10 ; Mixed hyperlipidemia E78.2 ; Hypoxia R09.02 ; 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 and Type 2 diabetes mellitus with foot ulcer E11.621 [place] [address] [place] [id number] [place] [address] 71106- 7775 Jan, [place] [address] [place] [id number] [place] [address] 57453- 0554 Jan, Type 2 diabetes mellitus with hyperglycemia E11.65 and Pneumonia due to infectious organism, unspecified laterality, unspecified part of lung J18.9 [place] [address] [place] [id number] [place] [address] 42222- 2646 Jan, [place] [address] [place] [id number] [place] [address] 99120- 1745 Jan, [place] [address] [place] [id number] [place] [address] 75074- 7494 Oct, Type 2 diabetes mellitus with hyperglycemia E11.65 ; Generalized osteoarthritis M15.9 and Chronic prescription opiate use Z79.891 [facility] [address] [place] [id number] [place] [address] 51994- 9527 September, [facility] [address] [place] [id number] [place] [address] 74347- 0322 Aug, [facility] [address] [place] [id number] [place] [address] 95367- 7913 Aug, [facility] [address] [place] [id number] [place] [address] 78514- 8261 Aug, [facility] [address] [place] [id number] [place] [address] 38136- 6989 Aug, [facility] [address] [place] [id number] [place] [address] 34507- 9764 Jun, [facility] [address] [place] [id number] [place] [address] 13445- 6815 Jun, Type 2 diabetes mellitus with hyperglycemia E11.65 ; Mixed hyperlipidemia E78.2 ; Vaginal itching L29.8 ; Neck muscle spasm M62.838 and Skin abrasion T14.8 [facility] [address] [place] [id number] [place] [address] 27167- 2933 Apr, [facility] [address] [place] [id number] [place] [address] 83733- 2621 Apr, [facility] [address] [place] [address] 84980- 2152 Mar, [facility] [address] [place] [id number] [place] [address] 93020- 0881 Feb, [facility] [address] [place] [id number] [place] [address] 84947- 9098 Feb, Type 2 diabetes mellitus with hyperglycemia E11.65 ; Type 2 diabetes mellitus with foot ulcer E11.621 ; Type 2 diabetes mellitus with diabetic polyneuropathy E11.42 and Encounter for immunization Z23 [facility] [address], [place] [address]- 2303 Jan, Hypertension 401.9 ; Uncontrolled type 2 diabetes mellitus 250.02 ; Right shoulder pain 719.41 and Ulcer of heel and midfoot 707.14 [facility] [address] [place] [address] [address]- 4[address] Dec, Diabetes with other specified manifestations, type II or unspecified type, not stated as uncontrolled 250.80 ; Ulcer of heel and midfoot 707.14 ; Hypertension 401.9 ; Hip pain, left 719.45 and Acute anxiety 300.00 [facility] [address] [place] [id number] [place] [address] 24589- 8046 Nov, [facility] [address] [place] [id number] [place] [address] 97631- 1939 Nov, [facility] [address] [place] [id number] [place] [address] 70600- 1529 September, Anxiety attack 300.01 and Cellulitis 682.9 [facility] [address] [place] [id number] [place] [address] 71614- 3679 September, [facility] [address] [place] [id number] [place] [address] 79168- 3143 September, [facility] [address] [place] [address] [address]- 0281 September, [facility] [address] [place] [id number] [place] [address] 62555- 5278 Aug, [facility] [address] [place] [address] 26750- 9006 Aug, [facility] [address] [place] [id number] [place] [address] 876130- 2255 Jul, [facility] [address] [place] [id number] 3545 Jul, [facility] [address] [place] [id number] [place] [address] 290433- 2265 Jul, [facility] [place] [facility] [address] [id number] [place] [address]- 8642 May, [facility] [place] [facility] [address] [id number] [place] [address]- 7247 May, [facility] [place] [facility] [address] [id number] [place] [address]- 5020 Mar, [facility] [place] [facility] [address] [id number] [place] [address]- 3693 Mar, [facility] [place] [facility] [address] [id number] [place] [address]- 5526 Mar, [facility] [place] [facility] [address] [id number] [place] [address]- 1146 Mar, [facility] [place] [facility] [address] [id number] [place] [address]- 4785 Mar, [facility] [place] [facility] [address] [id number] [place] [address]- 4898 Mar, [facility] [place] [facility] [address] [id number] [place] [address]- 9974 Mar, [facility] [place] [facility] [address] [id number] [place] [address]- 5266 Feb, [facility] [place] [facility] [address] [id number] [place] [address]- 6141 14 Feb, 2014 [facility] [place] [facility] [address] [id number], [place] [address]- 4027 30 Jan, 2014 [facility] [place] [facility] [address] [id number] [place] [address]- 0521 30 Jan, 2014 [facility] [place] [facility] [address] [id number] [place] [address]- 8926 Jan, [facility] [place] [facility] [address] [id number] [place] [address]- 0382 Jan, [facility] [place] [facility] [address] [id number] [place] [address]- 3501 25 Sep, 2013 [facility] [place] [facility] [address] [id number] [place] [address] 2546 25 Sep, 2013 [facility] [place] [facility] [address] [id number] [place] [address] 2546 25 Sep, 2013 [facility] [place] [facility] [address] [id number] [place] [address] 2547 25 Sep, 2013 [facility] [place] [facility] [address] [id number] [place] [address]- 0846 18 Sep, 2013 [facility] [place] [facility] [address] [id number] [place] [address]- 7634 18 Sep, 2013 [facility] [place] [facility] [address] [id number] [place] [address]- 8347 06 Sep, 2013 [facility] [place] [facility] [address] [id number] [place] [address]- 4883 06 Sep, 2013 [facility] [place] [facility] [address] [id number] [place] [address]- 6103 05 Sep, 2013 [facility] [place] [facility] [address] [id number] [place] [address]- 0602 05 Sep, 2013 [facility] [place] [facility] [address] [id number] [place] [address]- 1782 05 Sep, 2013 [facility] [place] [facility] [address] [id number] [place] [address] 2542 05 Sep, 2013 [facility] [place] [facility] [address] [id number], [place] [address]- 2544 05 Sep, 2013 [facility] [place] [facility] [address] [id number] [place] [address] 2544 05 Sep, 2013 [facility] [place] [facility] [address] [id number] [place] [address]- 9846 08 Dec, 2013 [facility] [place] [facility] [address] [id number], [place] [address]- 1308 Dec, 2013 [facility] [place] [facility] [address] [id number] [place] [address]- 5522 Dec, 2013 [facility] [place] [facility] [address] [id number] [place] [address]- 3369 Dec, [facility] [place] [facility] [address] [id number] [place] [address]- 3748 Dec, [facility] [place] [facility] [address] [id number] [place] [address]- 7128 Dec, [facility] [place] [facility] [address] [id number] [place] [address]- 8938 Dec, [facility] [place] [facility] [address] [id number] [place] [address]- 3834 Dec, [facility] [place] [facility] [address] [id number] [place] [address]- 0800 Dec, [facility] [place] [facility] [address] [id number] [place] [address]- 6902 Dec, [facility] [place] [facility] [address] [id number] [place] [address]- 7584 Nov, [facility] [place] [facility] [address] [id number] [place] [address]- 1844 Nov, [facility] [place] [facility] [address] [id number] [place] [address]- 8706 Nov, [facility] [place] [facility] [address] [id number] [place] [address]- 1941 Nov, [facility] [place] [facility] [address] [id number] [place] [address]- 2840 Nov, [facility] [place] [facility] [address] [id number] [place] [address]- 1683 Nov, [facility] [place] [facility] [address] [id number] [place] [address]- 4430 Oct, [facility] [place] [facility] [address] [id number] [place] [address]- 6367 Oct, [facility] [place] [facility] [address] [id number] [place] [address]- 6693 Oct, [facility] [place] [facility] [address] [id number] [place] [address]- 6992 Oct, [facility] [place] [facility] [address] [id number] [place] [address]- 3043 Oct, [facility] [place] [facility] [address] [id number] [place] [address]- 4361 Oct, [facility] [place] [facility] [address] [id number] [place] [address]- 4431 Oct, [facility] [place] [facility] [address] [id number] [place] [address]- 6931 Oct, [facility] [place] [facility] [address] [id number] [place] [address]- 2464 Oct, [facility] [place] [facility] [address] [id number] [place] [address]- 4820 Oct, [facility] [place] [facility] [address] [id number] [place] [address]- 8384 Oct, [facility] [place] [facility] [address] [id number] [place] [address]- 9790 Oct, [facility] [place] [facility] [address] [id number], [place] [address]- 7216 September, [facility] [place] [facility] [address] [id number], [place] [address]- 9389 September, [facility] [place] [facility] [address] [id number] [place] [address]- 4877 September, [facility] [place] [facility] [address] [id number] [place] [address]- 7814 Aug, [facility] [place] [facility] [address] [id number] [place] [address]- 1265 Aug, [facility] [place] [facility] [address] [id number] [place] [address]- 7940 13 Jul, 2013 [facility] [place] [facility] [address] [id number] [place] [address]- 0966 13 Jul, 2013 [facility] [place] [facility] [address] [id number] [place] [address]- 1266 Jul, [facility] [place] [facility] [address] [id number] [place] [address]- 9473 Jul, [facility] [place] [facility] [address] [id number] [place] [address]- 6725 Jul, [facility] [place] [facility] [address] [id number] [place] [address]- 5112 Jul, [facility] [place] [facility] [address] [id number] [place] [address]- 3484 Jul, [facility] [place] [facility] [address] [id number] [place] [address]- 0033 Jul, [facility] [place] [facility] [address] [id number] [place] [address]- 7453 Jul, [facility] [place] [facility] [address] [id number] [place] [address]- 2506 Jul, [facility] [place] [facility] [address] [id number] [place] [address]- 6369 Jun, [facility] [place] [facility] [address] [id number] [place] [address]- 4126 Jun, [facility] [place] [facility] [address] [id number] [place] [address]- 1826 Jun, [facility] [place] [facility] [address] [id number] [place] [address]- 8123 Jun, [facility] [place] [facility] [address] [id number] [place] [address]- 3870 May, [facility] [place] [facility] [address] [id number] [place] [address]- 2752 May, [facility] [place] [facility] [address] [id number] [place] [address]- 9762 Apr, [facility] [place] [facility] [address] [id number] [place] [address]- 5648 Apr, [facility] [place] [facility] [address] [id number] [place] 6724 Apr, [facility] [place] [facility] [address] [id number] [place] [address]- 2806 Apr, [facility] [place] [facility] [address] [id number] [place] [address]- 0814 Apr, [facility] [place] [facility] [address] [id number] [place] [address]- 5754 Apr, [facility] [place] [facility] [address] [id number] [place] [address]- 7980 Apr, [facility] [place] [facility] [address] [id number] [place] [address]- 4932 Apr, [facility] [place] [facility] [address] [id number] [place] [address]- 9154 Mar, [facility] [place] [facility] [address] [id number] [place] [address]- 9089 Mar, [facility] [place] [facility] [address] [id number] [place] [address]- 9693 Mar, [facility] [place] [facility] [address] [id number], [place] [address]- 6753 Mar, [facility] [place] [facility] [address] [id number] [place] [address]- 6979 Mar, [facility] [place] [facility] [address] [id number] [place] [address]- 8305 Mar, [facility] [place] [facility] [address] [id number] [place] [address]- 7158 Feb, [facility] [place] [facility] [address] [id number] [place] [address]- 8826 30 Feb, 2013 [facility] [place] [facility] [address] [id number] [place] [address]- 5816 18 Feb, 2013 [facility] [place] [facility] [address] [id number] [place] [address]- 3744 18 Feb, 2013 [facility] [place] [facility] [address] [id number] [place] [address] 14 Feb, 2013 [facility] [place] [facility] [address] [id number] [place] [address] 14 Feb, 2013 [facility] [place] [facility] [address] [id number] [place] [address] 04 Feb, 2013 [facility] [place] [facility] [address] [id number] [place] [address] 27 Jan, 2013 [facility] [place] [facility] [address] [id number] [place] [address] 26 Jan, 2013 [facility] [place] [facility] [address] [id number] [place] [address] 19 Jan, 2013 [facility] [place] [facility] [address] [id number] [place] [address]- [address] 05 Jan, 2013 [facility] [place] [facility] [address] [id number] [place] [address] 16 Dec, 2012 [facility] [place] [facility] [address] [id number] [place] [address] Dec, [facility] [place] [facility] [address] [id number] [place] [address] Dec, [facility] [place] [facility] [address] [id number] [place] [address] Nov, [facility] [place] [facility] [address] [id number] [place] [address] Nov, [facility] [place] [facility] [address] [id number] [place] [address] Nov, [facility] [place] [facility] [address] [id number] [place] [address] Nov, [facility] [place] [facility] [address] [id number] [place] [address] Nov, [facility] [place] [facility] [address] [id number] [place] [address] Nov, [facility] [place] [facility] [address] [id number] [place] [address] Oct, [facility] [place] [facility] [address] [id number] [place] [address] Oct, [facility] [place] [facility] [address] [id number] [place] [address] Oct, [facility] [place] [facility] [address] [id number] [place] [address] Oct, [facility] [place] [facility] [address] [id number] [place] [address] Oct, [facility] [place] [facility] [address] [id number] [place] [address] Oct, [facility] [place] [facility] [address] [id number] [place] [address] September, [facility] [place] [facility] [address] [id number] [place] [address] September, [facility] [place] [facility] [address] [id number] [place] [address] September, [facility] [place] [facility] [address] [id number] [place] [address] September, [facility] [place] [facility] [address] [id number] [place] [address] Aug, [facility] [place] [facility] [address] [id number] [place] [address] Aug, [facility] [place] [facility] [address] [id number] [place] [address] 28 Jul, 2012 [facility] [address] [id number] [place] [address] 21 Jul, 2012 [facility] [place] [facility] [address] [id number] [place] [address] 18 Jul, 2012 [facility] [place] [facility] [address] [id number] [place] [address] 15 Jul, 2012 [facility] [place] [facility] [address] [id number] [place] [address] 13 Jul, 2012 [facility] [address] [id number] [place] [address] 08 Jul, 2012 [facility] [place] [facility] [address] [id number] [place] [address] 20 Jun, 2012 [facility] [place] [facility] [address] [id number] [place] [address]- [address] 13 Jun, 2012 [facility] [place] [facility] [address] [id number] [place] [address] 17 May, 2012 [facility] [address] [id number] [place] [address] 04 May, 2012 [facility] [address] [id number] [place] [address] 100[address] 18 Apr, 2012 [facility] [address] [id number] [place] [address] 18 Apr, 2012 [facility] [place] [facility] [address] [id number] [place] [address] 13 Apr, 2012 [facility] [place] [facility] [address] [id number] [place] [address] 13 Apr, 2012 [facility] [place] [facility] [address] [id number] [place] [address] 68[address] 10 Apr, 2012 [facility] [place] [facility] [address] [id number] [place] [address] 30[address] 10 Apr, 2012 [facility] [place] [facility] [address] [id number] [place] [address] Apr, 2011 [facility] [address] [id number] [place] [address] Apr, [facility] [place] [facility] [address] [id number] [place] [address] 350[address] Apr, [facility] [address] [id number] [place] [address] 1357 Apr, [facility] [address] [id number] [place] [address] 8[address] Apr, [facility] [address] [id number] [place] [address] 6[address] Apr, [facility] [address] [id number] [place] [address] 7117 Apr, [facility] [address] [id number] [place] [address] 8[address] Apr, [facility] [address] [id number] [place] [address] Apr, [facility] [place] [facility] [address] [id number] [place] [address] 69[address] Apr, [facility] [address] [facility]NOTE 3] [id number] [place] [address] 99[address] Mar, [facility] [place] [facility] [address] [id number] [place] [address] 0[address] Mar, [facility] [place] [facility] [address] [id number] [place] [address] 3560 Mar, [facility] [place] [facility] [address] [id number] [place] [address] 7[address] Mar, [facility] [place] [facility] [address] [facility]NOTE 3] [id number] [place] [address] 1541 Mar, [facility] [place] [facility] [address] [facility]NOTE 3] [id number] [place] [address] 3325 Mar, [facility] [place] [facility] [address] [id number] [place] [address] 7327 Mar, [facility] [place] [facility] [address] [id number] [place] [address] 3886 Mar, [facility] [place] [facility] [address] [id number] [place] [address] 6246 Mar, [facility] [place] [facility] [address] [id number] [place] [address] 1416 Mar, [facility] [place] [facility] [address] [id number] [place] [address] 5530 Feb, [facility] [place] [facility] [address] [id number] [place] [address] 0966 Feb, [facility] [place] [facility] [address] [facility]NOTE 3] [id number] [place] [address] 4927 Feb, [facility] [place] [facility] [address] [id number] [place] [address] 5029 Feb, [facility] [place] [facility] [address] [facility]NOTE 3] [id number] [place] [address] 9229 Feb, [facility] [place] [facility] [address] [facility]NOTE 3] [id number], [place] [address] Feb, [facility] [place] [facility] [address] [facility]NOTE 3] [id number], [place] [address] Jan, [facility] [place] [facility] [address] [id number], [place] [address] Dec, [facility] [place] [facility] [address] [id number] [place] [address] 4886 Dec, [facility] [place] [facility] [address] [id number] [place] [address] 8666 Dec, [facility] [place] [facility] [address] [facility]NOTE 3] [id number], [place] [address] Dec, [facility] [place] [facility] [address] [id number], [place] [address] Nov, [facility] [address] [id number] [place] [address] 6227 Nov, [facility] [place] [facility] [address] [id number] [place] [address] 2326 Nov, [facility] [place] [facility] [address] [id number] [place] [address] 4766 Nov, [facility] [place] [facility] [address] [id number] [place] [address] 7622 Oct, [facility] [place] [facility] [address] [id number] [place] [address] 1579 Oct, [facility] [place] [facility] [address] [id number] [place] [address] 0286 Oct, [facility] [address] [id number] [place] [address] 1556 Oct, [facility] [place] [facility] [address] [id number] [place] [address] 2669 Oct, [facility] [place] [facility] [address] [id number] [place] [address] 2039 September, [facility] [place] [facility] [address] [id number] [place] [address] 1008 September, [facility] [place] [facility] [address] [id number] [place] [address] 7302 September, [facility] [place] [facility] [address] [id number] [place] [address] 1872 September, [facility] [place] [facility] [address] [id number] [place] [address] 8533 September, [facility] [place] [facility] [address] [id number] [place] [address] 8793 September, [facility] [place] [facility] [address] [id number] [place] [address] 5720 September, [facility] [place] [facility] [address] [id number] [place] [address] 3717 September, [facility] [address] [id number] [place] [address] 0422 Aug, [facility] [place] [facility] [address] [id number] [place] [address] 2262 Aug, [facility] [place] [facility] [address] [id number] [place] [address] 2397 Aug, [facility] [place] [facility] [address] [id number] [place] [address] 3866 Aug, [facility] [place] [facility] [address] [id number] [place] [address] 5887 Aug, [facility] [place] [facility] [address] [id number] [place] [address] 9951 17 Aug, 2011 [facility] [place] [facility] [address] [id number] [place] [address] 8382 Aug, [facility] [place] [facility] [address] [id number] [place] [address] 0828 Aug, [facility] [place] [facility] [address] [id number] [place] [address] 67[address] Aug, [facility] [place] [facility] [address] [id number] [place] [address] 3318 Aug, [facility] [place] [facility] [address] [id number] [place] [address]- 3387 Aug, [facility] [place] [facility] [address] [id number] [place] [address]- 4045 Aug, [facility] [place] [facility] [address] [id number] [place] [address]- 3965 29 Jul, 2011 [facility] [place] [facility] [address] [id number] [place] [address]- 8056 Jul, [facility] [place] [facility] [address] [id number] [place] [address]- 4554 27 Jul, 2011 [facility] [place] [facility] [address] [id number] [place] [address]- 3740 Jul, [facility] [place] [facility] [address] [id number] [place] [address]- 2106 Jul, [facility] [place] [facility] [address] [id number] [place] [address]- 5956 Jul, [facility] [place] [facility] [address] [id number] [place] [address]- 0083 14 Jul, 2011 [facility] [place] [facility] [address] [id number] [place] [address]- 1673 13 Jul, 2011 [facility] [place] [facility] [address] [id number] [place] [address]- 0456 Jul, [facility] [place] [facility] [address] [id number] [place] [address]- 7211 24 Jun, 2011 [facility] [place] [facility] [address] [id number] [place] [address]- 6635 Jun, [facility] [place] [facility] [address] [id number] [place] [address]- 5967 Jun, [facility] [place] [facility] [address] [id number] [place] [address]- 5379 14 Jun, 2011 [facility] [place] [facility] [address] [id number] [place] [address]- 6438 Jun, [facility] [place] [facility] [address] [id number] [place] [address]- 9967 Jun, [facility] [place] [facility] [address] [id number] [place] [address]- 4726 Jun, [facility] [place] [facility] [address] [id number] [place] [address]- 5976 May, [facility] [place] [facility] [address] [id number] [place] [address]- 2946 May, [facility] [place] [facility] [address] [id number] [place] [address] 2546 May, [facility] [address] [id number] [place] [address]- 2843 May, [facility] [address] [id number] [place] [address]- 2546 May, [facility] [address] [id number] [place] [address]- 2586 May, [facility] [address] [id number] [place] [address]- 2146 May, [facility] [address] [id number] [place] [address]- 8876 Apr, [facility] [address] [id number] [place] [address]- 1725 Apr, [facility] [address] [id number] [place] [address]- 4336 Apr, [facility] [address] [id number] [place] [address]- 1168 Apr, [facility] [address] [id number] [place] [address]- 7230 Apr, [facility] [address] [id number] [place] [address]- 6231 Apr, [facility] [address] [id number] [place] [address]- 7192 Apr, [facility] [address] [id number] [place] [address]- 6741 Apr, [facility] [place] [facility] [address] [id number] [place] [address]- 8386 Apr, [facility] [place] [facility] [address] [id number] [place] [address]- 4706 Mar, [facility] [address] [id number] [place] [address]- 0448 Mar, [facility] [place] [facility] [address] [id number] [place] [address]- 8117 Mar, [facility] [place] [facility] [address] [id number] [place] [address]- 0899 Mar, [facility] [place] [facility] [address] [id number] [place] [address]- 3714 Mar, [facility] [place] [facility] [address] [id number] [place] [address]- 6204 Feb, [facility] [place] [facility] [address] [id number] [place] [address]- 2620 Feb, [facility] [place] [facility] [address] [id number] [place] [address]- 8180 Feb, [facility] [place] [facility] [address] [id number] [place] [address]- 6311 Dec, [facility] [place] [facility] [address] [id number] [place] [address]- 3209 Nov, [facility] [place] [facility] [address] [id number] [place] [address]- 3674 Apr, [facility] [place] [facility] [address] [id number] [place] [address]- 5328 Apr, [facility] [place] [facility] [address] [id number] [place] [address]- 3056 16 Apr, 2010 [facility] [place] [facility] [address] [id number], [place] [address]- 6430 13 Apr, 2010 [facility] [place] [facility] [address] [id number] [place] [address]- 0628 Apr, [facility] [place] [facility] [address] [id number] [place] [address] Apr, [facility] [place] [facility] [address] [id number] [place] [address] Apr, [facility] [place] [facility] [address], [place] [address] Apr, [facility] [address], [place] [address]- 5177 Mar, [facility] [address], [place] [address]- 1661 Mar, [facility] [address], [place] [address]- 5153 Mar, [facility] [address], [place] [address]- 7953 Mar, [facility] [id number] [place] [address]- 7092 Mar, [facility] [address], [place] [address]- 8459 Mar, [facility] [id number] [place] [address]- 5839 Mar, [facility] [address], [place] [address]- 1631 Mar, [facility] [address], [place] [address]- 1298 Mar, [facility] [address], [place] [address]- 4548 Mar, IMMUNIZATIONS No Known Immunizations SOCIAL HISTORY Never Assessed REASON FOR VISIT Requests return call PLAN OF CARE VITAL SIGNS MEDICATIONS Unknown Medications RESULTS No Results PROCEDURES No Known procedures INSTRUCTIONS MEDICATIONS ADMINISTERED No Known Medications MEDICAL (GENERAL) HISTORY Type Description Date Medical [...] History Hyperglycemia, Hypoxia--[facility] 01/21/16 Hospitalization History surgeries Hospitalization History UTI 02/2017
[2017-08-20] MEDS: metroNIDAZOLE 500 MG (FLAGYL) TAB PO SCH ×3 (08:06→20:12)
[2017-08-20] MEDS: amLODIPine 10 MG (NORVASC) TAB PO SCH (08:06)
[2017-08-20] MEDS: Brinzolamide/Brimonidine Tart (Simbrinza) 1%-0.2% Eye Drops OU SCH ×2 (08:06→20:13)
[2017-08-20] MEDS: inSUlin DETERMIR 1 UNIT/0.01 ML (LEVEMIR) CHARGE PER UNIT SQ SCH ×2 (08:09→20:54)
--- OUTSIDE RECORDS SUMMARY | 2017-08-20 08:18 | XMS REPORT | Clinical Summary ---
Author Author [facility] Organization [facility] Address Unknown Phone Unavailable Care Team Providers Care Scientific Photographer Name Role Phone Tobi Benson MD PCP Source Comments Some departments are not documenting in the electronic medical record. If you do not see the information that you expected, contact Release of Information in the Health Information Management department at [phone] for further assistance in locating additional records.[facility] Allergies Not on File Current [...]
--- NOTE | 2017-08-20 08:19 | Diagnostic Imaging Report ---
INDICATION: Hypertensive encephalopathy, chronic kidney disease and stroke. Comparison made with prior examination 08/19/2017. FINDINGS: There is cardiomegaly. There may be some minimal venous congestion. There is no pleural effusion or pneumothorax. Mediastinum is unremarkable. Right internal jugular central venous catheter is in place. IMPRESSION: Cardiomegaly and some questionable minimal central pulmonary venous congestion. Dictated by: Dictated on workstation # [id number]
[2017-08-20] MEDS ORDERED: amLODIPine 10 MG (NORVASC) TAB PO SCH (09:00)
[2017-08-20] MEDS ORDERED: meTOproloL SUCCINATE 50 MG (TOPROL XL) TAB PO SCH ×2 (09:00→21:00)
--- NOTE | 2017-08-20 09:39 | Progress Note (SOAP) ---
Subjective Subjective/Events-last exam Patient doing well this AM. Denies any numbness or weakness. Tolerating PO diet. States that she would like to get up and walk around Review of Systems Date Seen by Provider: Aug 20, 2017 Time Seen by Provider: 09:36 HEENT: No Visual Changes Pulmonary: Dyspnea Cardiovascular: No: Chest Pain, Palpitations Gastrointestinal: No: Diarrhea, Constipation Neurological: No: Numbness, Change in speech, Confusion Objective Exam Last Set of Vital Signs Vital Signs Date Time Temp Pulse Resp B/P (MAP) Pulse Ox O2 Delivery O2 Flow Rate FiO2 08/20/17 08:14 95 Nasal Cannula 2.00 08/20/17 08:05 97.8 08/20/17 07:00 58 08/20/17 06:30 19 Capillary Refill : Less Than 3 Seconds I&O Intake and Output 08/20/17 00:00 Intake Total 3170 ml Output Total 3050 ml Balance 120 ml Intake Oral 1370 ml IV Total 1800 ml Output Urine Total 3050 ml # Voids 1 # Bowel Movements 1 General: Alert, Oriented X3, Cooperative, No Acute Distress Lungs: Clear to Auscultation, Normal Air Movement Heart: Regular Rate, No Murmurs Neuro: Normal Speech, Strength at 5/5 X4 Ext, Sensation Intact, Cranial Nerves 3-12 NL Results/Procedures Lab Laboratory Tests 08/19/17 11:14: Glucometer 346H 08/19/17 15:10: Triglycerides Level 184H, Cholesterol Level 173, LDL Cholesterol Direct 96, VLDL Cholesterol 37, HDL Cholesterol 43 08/19/17 16:25: Glucometer 267H 08/19/17 20:55: Glucometer 189H 08/20/17 03:15: White Blood Count 7.6, Red Blood Count 3.50L, Hemoglobin 10.2L, Hematocrit 32L, Mean Corpuscular Volume 92, Mean Corpuscular Hemoglobin 29, Mean Corpuscular Hemoglobin Concent 32, Red Cell Distribution Width 14.3, Platelet Count 233, Mean Platelet Volume 9.9, Neutrophils (%) (Auto) 74, Lymphocytes (%) (Auto) 16, Monocytes (%) (Auto) 8, Eosinophils (%) (Auto) 2, Basophils (%) (Auto) 0, Neutrophils # (Auto) 5.6, Lymphocytes # (Auto) 1.2, Monocytes # (Auto) 0.6, Eosinophils # (Auto) 0.1, Basophils # (Auto) 0.0, Sodium Level 134L, Potassium Level 5.1H, Chloride Level 105, Carbon Dioxide Level 21, Anion Gap 8, Blood Urea Nitrogen 49H, Creatinine 2.05H, Estimat Glomerular Filtration Rate 24, BUN/ Creatinine Ratio 24, Glucose Level 205H, Calcium Level 8.8, Phosphorus Level 4.0 , Magnesium Level 2.0 Microbiology 08/18/17 Urine Culture - Final, Complete Radiology Date of Exam: 08/18/17 CT HEAD WO-R/O STROKE INDICATION: Slurred speech. Right-sided numbness. TECHNIQUE: Routine non contrast-enhanced axial images were obtained from the skull base to the vertex. COMPARISON: 02/26/2017 FINDINGS: The ventricles and cortical sulci are diffusely prominent, compatible with age-related volume loss. There are confluent areas of abnormal, low attenuation in the periventricular white matter. This is consistent with chronic small vessel ischemic changes. There is no midline shift or mass-effect. No acute intra-axial hemorrhage is seen. There are no abnormal areas of increased or decreased density to suggest acute hemorrhage or edema. No extra-axial masses or collections are present. The bony calvarium is intact. The visualized paranasal sinuses are unremarkable. The mastoid air cells are clear. IMPRESSION: 1. No acute intracranial abnormality. No CT evidence of mass, acute infarct or intracranial hemorrhage. 2. Chronic small vessel ischemic changes in the deep white matter. Assessment/Plan Assessment/Plan (1) TIA (transient ischemic attack) Status: Resolved Assessment & Plan: - Patient had normal CT scan, symptoms have resolved this AM - Statin, ASA and Plavix - Permissive hypertension at this time for protection following stroke like symptoms 08/20: No return of symptoms Qualifiers: Qualified Codes: G45.9 - Transient cerebral ischemic attack, unspecified (2) Hypertensive urgency Status: Acute Assessment & Plan: - Patient remains on Cardene drip goal 170s for permissive HTN - Restarted home BP meds 08/20: Blood pressure better controlled, Cardene off since 3AM, Continue PO meds and tele, transfer to floor (3) CKD (chronic kidney disease) stage 4, GFR 15-29 ml/min Status: Chronic Assessment & Plan: - At patient's baseline upon chart reviewed for the last year (4) 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 Assessment & Plan: - Restarting insulin today - Holding Gabapentin due to Cr - A1c pending 08/20: A1c pending (5) Hypertension Status: Chronic Qualifiers: Qualified Codes: I10 - Essential (primary) hypertension (6) Obesity hypoventilation syndrome Status: Chronic Assessment & Plan: - Patient has Bipap in room to use while sleeping (7) DVT prophylaxis Status: Acute Assessment & Plan: lovenox 40 daily, weight adjusted GFR 39 Clinical Quality Measures DVT/VTE Risk/Contraindication: Risk Factor Score Per Nursin RFS Level Per Nursing on Admit: 4+=Very High Stroke: Date of last known well: Aug 18, 2017 Time of last known well: 15:28 (Time of symptom onset was between 1:15 and 2: 30 PM. Her last seen well time was 1:15 PM) Symptoms onset unknown: Yes JENN MCDONALD MD Aug 20, 2017 09:38
[2017-08-20] MEDS ORDERED: ENOXAPARIN 40 MG/0.4 ML (LOVENOX) SYR SC SCH (20:00)
[2017-08-20] MEDS: LOSARTAN 100 MG (COZAAR) TABLET PO SCH (20:12)
[2017-08-20] MEDS: CLOPIDOGREL 75 MG (PLAVIX) TABLET PO SCH (20:12)
[2017-08-20] MEDS: ROSUVASTATIN 20 MG (CRESTOR) TABLET PO SCH (20:12)
[2017-08-20] MEDS: MULTIVIT W/MINERALS TAB (THERAGRAN M) PO SCH (20:12)
[2017-08-20] MEDS: ASPIRIN E.C. 81 MG (ECOTRIN) TAB PO SCH (20:12)
[2017-08-21] VITALS: BP 138/75
[2017-08-21 04:00] VITALS: BP 147/71
[2017-08-21 04:08] LABS: BASOPHILS % (AUTO) 0 % (0-10); EOSINOPHILS # (AUTO) 0.2 10^3/uL (0.0-0.3); EOSINOPHILS % (AUTO) 3 % (0-10); HEMATOCRIT 32 % (35-52); HEMOGLOBIN 10.1 G/DL (11.5-16.0); LYMPHOCYTES # (AUTO) 1.8 X 10^3 (1.0-4.0); LYMPHOCYTES % (AUTO) 34 % (12-44); MEAN CORPUSCULAR HEMOGLOBIN 29 PG (25-34); MEAN CORPUSCULAR HGB CONC 32 G/DL (32-36); MEAN CORPUSCULAR VOLUME 92 FL (80-99); MONOCYTES # (AUTO) 0.6 X 10^3 (0.0-1.0); MONOCYTES % (AUTO) 11 % (0-12); NEUTROPHILS # (AUTO) 2.8 X 10^3 (1.8-7.8); NEUTROPHILS % (AUTO) 52 % (42-75); PLATELET COUNT 266 10^3/uL (130-400); RED BLOOD COUNT 3.44 10^6/uL (4.35-5.85); RED CELL DISTRIBUTION WIDTH 14.7 % (10.0-14.5); WHITE BLOOD COUNT 5.4 10^3/uL (4.3-11.0)
[2017-08-21 04:31] LABS: CREATININE SERUM 2.27 MG/DL (0.60-1.30); POTASSIUM 5.1 MMOL/L (3.6-5.0)
[2017-08-21] MEDS: inSUlin ASPART (NovoLOG) 1 UNIT/0.01 ML (CHARGE PER UNIT) SC SCH ×2 (05:56→08:01)
[2017-08-21] MEDS: inSUlin DETERMIR 1 UNIT/0.01 ML (LEVEMIR) CHARGE PER UNIT SQ SCH (07:59)
[2017-08-21] MEDS: metroNIDAZOLE 500 MG (FLAGYL) TAB PO SCH (08:00)
[2017-08-21] MEDS: amLODIPine 10 MG (NORVASC) TAB PO SCH (08:00)
[2017-08-21] MEDS: HYDROcodone/APAP 5 MG/325 MG (LORTAB) TAB PO PRN (08:00)
[2017-08-21] MEDS: Brinzolamide/Brimonidine Tart (Simbrinza) 1%-0.2% Eye Drops OU SCH (08:01)
[2017-08-21 08:30] VITALS: BP 122/53
[2017-08-21] MEDS ORDERED: METO-370 PO (10:23)
--- NOTE | 2017-08-21 10:25 | Discharge Instructions ---
Discharge [facility] Discharge Medications New, Converted or Re-Newed RX: Transmitted to Pharmacy Changed Medications: Metoprolol Succinate (Metoprolol Succinate) 50 Mg Tab.er.24h 50 MG PO DAILY, #30 TAB 0 Refills (Changed from: Metoprolol Succinate 25 Mg Tab.er.24h 25 Mg PO HS) Continued Medications: Arginine HCl (l-Arginine) 1,000 Mg Tablet 2000 MG PO TID, TAB Aspirin (Aspirin EC) 81 Mg Tablet.dr 81 MG PO HS, TAB Biotin (Biotin) 1,000 Mcg Tablet 1000 MCG PO HS, TAB Brinzolamide/Brimonidine Tart (Simbrinza 1%-0.2% Eye Drops) 8 Ml Drops.susp 1 DROPS OU BID, EA Calcium Carbonate/Vitamin D3 (Calcium 600 + Vit D 200 Tablet) 1 Each Tablet 1 TAB PO TID, TAB Cholecalciferol (Vitamin D3) (Vitamin D3) 5,000 Unit Capsule 5000 UNITS PO HS, CAP Clopidogrel Bisulfate (Clopidogrel) 75 Mg Tablet 75 MG PO HS, TAB Cranberry Conc/C/Bacill Coag (Cranberry Tablet) 1 Each Tablet 1 TAB PO DAILY, TAB Flaxseed Oil (Flaxseed Oil) 1,000 Mg Capsule 1000 MG PO HS, CAP Gabapentin (Gabapentin) 100 Mg Capsule 100 MG PO HS, CAP Hydrocodone Bit/Acetaminophen (Hydrocodone/Acetaminophen 5/325mg Tablet) 1 Tab Tab 1-2 TAB PO 4-6HR PRN for PAIN, #20 TAB 0 Refills Insulin Aspart (Novolog Flexpen) 300 Units/3 Ml Solution 9 UNITS SC AC, EA Insulin Detemir (Levemir Flextouch) 100 Unit/1 Ml Insuln.pen 20 UNITS SC BID, EA Losartan Potassium (Losartan Potassium) 100 Mg Tablet 100 MG PO HS, TAB Magnesium Oxide (Magnesium Oxide) 250 Mg Tablet 250 MG PO HS, TAB Metronidazole (Metronidazole) 500 Mg Tablet 500 MG PO TID, TAB Multivitamin (Daily Multiple Vitamin) 1 Each Tablet 1 TAB PO HS, TAB Immaculata-3/Dha/Epa/Fish Oil (Fish Oil 1,000 mg Softgel) 1 Each Capsule 1000 MG PO TID, CAP Rosuvastatin Calcium (Rosuvastatin Calcium) 20 Mg Tablet 20 MG PO HS, TAB Turmeric Root Extract (Turmeric) 538 Mg Capsule 1-2 CAP PO TID PRN for BACK PAIN, CAP Vitamin B Complex & Vit C No.4 (Super B Complex) 150 Mg Tablet 150 MG PO HS, TAB Patient Instructions Goal/Follow Up Appt: Follow up with Dr. Palomo on 08/29 at 10 am. Return to The Hospital For: Confusion, weakness, headache, chest pain Activity & Diet Discharge Diet: ADA Diet Activity as Tolerated: Yes (and per Vehicle Damage Appraiser instructions for foot post-op) Copy Copies To 1: MARY PALOMO MD, BETHANY N MD Aug 21, 2017 10:25 am
--- NOTE | 2017-08-21 10:26 | Discharge Summary ---
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 (5) Hypertension (6) Obesity hypoventilation syndrome Discharge Diagnosis (1) TIA (transient ischemic attack) Status: Resolved Assessment & Plan: - Patient had normal CT scan, symptoms have resolved this AM - Statin, ASA and Plavix - Permissive hypertension permitted initially 08/20 and : No return of symptoms Qualifiers: Qualified Codes: G45.9 - Transient cerebral ischemic attack, unspecified (2) Hypertensive urgency Status: Acute Assessment & Plan: - Patient remains on Cardene drip goal 170s for permissive HTN - Restarted home BP meds 08/20: Blood pressure better controlled, Cardene off since 3AM, Continue PO meds and tele, transfer to floor 08/21 discharged on increased dose of metoprolol XL (50 mg), but did not continue amlodipine which was started inpatient as it was previously d/c by Nephrology due to worsening fluid retention. Continue losartan. 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 Patient states that she was sitting in the patient chair with her head tilted back. When she sat up the right side of her face was numb, she was having troubles talking and her right arm went numb. Patient states that it was already improving by the time she got to the ER but was still having some numbness. She has had TIA in the past with the last one being 2 years ago. She just had surgery on her right big toe and has been on IV antibiotics for weeks. Patient was also found the have profoundly elevated blood pressure upon arrival to ER. She states that she had not taken any of her daily meds yet because she takes them at night. Denies any new symptoms or complaints this AM. Denies any chest pain or shortness of breath. Discharge Summary-Simple/Stand Consultations Discharge Physical Examination Allergies: Coded Allergies: Bacitracin Zinc (Unverified Allergy, Unknown, 07/11/17) Penicillins (Unverified Allergy, Unknown, HAS RECEIVED ROCEPHIN DURING PREVIOUS ADMIT, 07/11/17) bacitracin (Unverified Allergy, Unknown, 07/11/17) colistimethate sodium (Unverified Allergy, Unknown, 07/11/17) gramicidin D (Unverified Allergy, Unknown, 07/11/17) neomycin sulfate (Unverified Allergy, Unknown, 07/11/17) polymyxin B (Unverified Allergy, Unknown, 07/11/17) polymyxin B sulfate (Unverified Allergy, Unknown, 07/11/17) pramoxine HCl (Unverified Allergy, Unknown, 07/11/17) Vitals & I&Os Vital Sign - Last 12Hours Date Time Temp Pulse Resp B/P (MAP) Pulse Ox O2 Delivery O2 Flow Rate FiO2 08/21/17 04:00 97.5 51 18 147/71 (96) 100 Nasal Cannula 3.50 Intake and Output 08/21/17 00:00 Intake Total 1790 ml Balance 1790 ml General Appearance: Alert, No Acute Distress Respiratory: Other (no accessory muscle use) Neuro: Normal Speech Psych/Mental Status: Mental Status NL, Mood NL Hospital Course See final discharge diagnosis. Labs Laboratory Tests Test 08/19/17 11:14 08/19/17 15:10 08/19/17 16:25 08/19/17 20:55 Range/Units Glucometer 346 H 267 H 189 H 70-110 MG/DL Triglycerides Level 184 H <150 MG/DL Cholesterol Level 173 < 200 MG/DL LDL Cholesterol Direct 96 1-129 MG/DL VLDL Cholesterol 37 5-40 MG/DL HDL Cholesterol 43 40-60 MG/DL Test 08/20/17 03:15 08/20/17 11:26 08/20/17 15:49 08/20/17 20:49 Range/Units White Blood Count 7.6 4.3-11.0 10^3/uL Red Blood Count 3.50 L 4.35-5.85 10^6/uL Hemoglobin 10.2 L 11.5-16.0 G/DL Hematocrit 32 L 35-52 % Mean Corpuscular Volume 92 80-99 FL Mean Corpuscular Hemoglobin 29 25-34 PG Mean Corpuscular Hemoglobin Concent 32 32-36 G/DL Red Cell Distribution Width 14.3 10.0-14.5 % Platelet Count 233 130-400 10^3/uL Mean Platelet Volume 9.9 7.4-10.4 FL Neutrophils (%) (Auto) 74 42-75 % Lymphocytes (%) (Auto) 16 12-44 % Monocytes (%) (Auto) 8 0-12 % Eosinophils (%) (Auto) 2 0-10 % Basophils (%) (Auto) 0 0-10 % Neutrophils # (Auto) 5.6 1.8-7.8 X 10^3 Lymphocytes # (Auto) 1.2 1.0-4.0 X 10^3 Monocytes # (Auto) 0.6 0.0-1.0 X 10^3 Eosinophils # (Auto) 0.1 0.0-0.3 10^3/uL Basophils # (Auto) 0.0 0.0-0.1 10^3/uL Sodium Level 134 L 135-145 MMOL/L Potassium Level 5.1 H 3.6-5.0 MMOL/L Chloride Level 105 98-107 MMOL/L Carbon Dioxide Level 21 21-32 MMOL/L Anion Gap 8 5-14 MMOL/L Blood Urea Nitrogen 49 H 7-18 MG/DL Creatinine 2.05 H 0.60-1.30 MG/DL Estimat Glomerular Filtration Rate 24 BUN/Creatinine Ratio 24 Glucose Level 205 H 70-105 MG/DL Calcium Level 8.8 8.5-10.1 MG/DL Phosphorus Level 4.0 2.3-4.7 MG/DL Magnesium Level 2.0 1.8-2.4 MG/DL Glucometer 172 H 191 H 274 H 70-110 MG/DL Test 08/21/17 04:00 08/21/17 05:39 Range/Units White Blood Count 5.4 4.3-11.0 10^3/uL Red Blood Count 3.44 L 4.35-5.85 10^6/uL Hemoglobin 10.1 L 11.5-16.0 G/DL Hematocrit 32 L 35-52 % Mean Corpuscular Volume 92 80-99 FL Mean Corpuscular Hemoglobin 29 25-34 PG Mean Corpuscular Hemoglobin Concent 32 32-36 G/DL Red Cell Distribution Width 14.7 H 10.0-14.5 % Platelet Count 266 130-400 10^3/uL Mean Platelet Volume 10.0 7.4-10.4 FL Neutrophils (%) (Auto) 52 42-75 % Lymphocytes (%) (Auto) 34 12-44 % Monocytes (%) (Auto) 11 0-12 % Eosinophils (%) (Auto) 3 0-10 % Basophils (%) (Auto) 0 0-10 % Neutrophils # (Auto) 2.8 1.8-7.8 X 10^3 Lymphocytes # (Auto) 1.8 1.0-4.0 X 10^3 Monocytes # (Auto) 0.6 0.0-1.0 X 10^3 Eosinophils # (Auto) 0.2 0.0-0.3 10^3/uL Basophils # (Auto) 0.0 0.0-0.1 10^3/uL Sodium Level 134 L 135-145 MMOL/L Potassium Level 5.1 H 3.6-5.0 MMOL/L Chloride Level 107 98-107 MMOL/L Carbon Dioxide Level 18 L 21-32 MMOL/L Anion Gap 9 5-14 MMOL/L Blood Urea Nitrogen 57 H 7-18 MG/DL Creatinine 2.27 H 0.60-1.30 MG/DL Estimat Glomerular Filtration Rate 22 BUN/Creatinine Ratio 25 Glucose Level 172 H 70-105 MG/DL Calcium Level 9.0 8.5-10.1 MG/DL Glucometer 146 H 70-110 MG/DL Radiology Reviewed Date of Exam: 08/18/17 CT HEAD WO-R/O STROKE INDICATION: Slurred speech. Right-sided numbness. TECHNIQUE: Routine non contrast-enhanced axial images were obtained from the skull base to the vertex. COMPARISON: 02/26/2017 FINDINGS: The ventricles and cortical sulci are diffusely prominent, compatible with age-related volume loss. There are confluent areas of abnormal, low attenuation in the periventricular white matter. This is consistent with chronic small vessel ischemic changes. There is no midline shift or mass-effect. No acute intra-axial hemorrhage is seen. There are no abnormal areas of increased or decreased density to suggest acute hemorrhage or edema. No extra-axial masses or collections are present. The bony calvarium is intact. The visualized paranasal sinuses are unremarkable. The mastoid air cells are clear. IMPRESSION: 1. No acute intracranial abnormality. No CT evidence of mass, acute infarct or intracranial hemorrhage. 2. Chronic small vessel ischemic changes in the deep white matter. Discharge Instructions to patient/family Please see electronic discharge instructions given to patient. Discharge Medications Reviewed and agree with Discharge Medication list on patient's Discharge Instruction sheet Clinical Quality Measures DVT/VTE Risk/Contraindication: Risk Factor Score Per Nursin RFS Level Per Nursing on Admit: 4+=Very High Stroke: Date of last known well: Aug 18, 2017 Time of last known well: 15:28 (Time of symptom onset was between 1:15 and 2: 30 PM. Her last seen well time was 1:15 PM) Symptoms onset unknown: Yes Copy Copies To 1: MARY FRAGOSO MD, BETHANY N MD Aug 21, 2017 10:26 am
[2017-08-21 13:00] VITALS: BP 144/70
[2017-08-21 14:00] VITALS: BP 144/70
== END 2017-08-21 14:00 | disposition home health service (06) | DRG 69 ==
LOC: EDUNIT# 15:04 → ER 15:07 → ICU 17:11 → 4TH 08-20 11:00
PROVIDERS: ADMIT Family Medicine; ATTEND Family Medicine
DX: G45.9 Transient cerebral ischemic attack, unspecified (principal); R47.01 Aphasia; G81.91 Hemiplegia, unspecified affecting right dominant side; I16.0 Hypertensive urgency; I12.9 Hypertensive chronic kidney disease with stage 1 through stage 4 chronic kidney disease, or unspecified chronic kidney disease; N18.4 Chronic kidney disease, stage 4 (severe); E11.22 Type 2 diabetes mellitus with diabetic chronic kidney disease; E66.2 Morbid (severe) obesity with alveolar hypoventilation; Z68.43 Body mass index [BMI] 50.0-59.9, adult; J44.9 Chronic obstructive pulmonary disease, unspecified; E11.42 Type 2 diabetes mellitus with diabetic polyneuropathy; E11.621 Type 2 diabetes mellitus with foot ulcer; L97.519 Non-pressure chronic ulcer of other part of right foot with unspecified severity; L97.429 Non-pressure chronic ulcer of left heel and midfoot with unspecified severity; E78.00 Pure hypercholesterolemia, unspecified; J30.2 Other seasonal allergic rhinitis; D64.9 Anemia, unspecified; R29.702 NIHSS score 2; M24.111 Other articular cartilage disorders, right shoulder; M19.91 Primary osteoarthritis, unspecified site; M54.9 Dorsalgia, unspecified; Z79.4 Long term (current) use of insulin; Z99.81 Dependence on supplemental oxygen; Z86.718 Personal history of other venous thrombosis and embolism; Z95.828 Presence of other vascular implants and grafts; Z86.73 Personal history of transient ischemic attack (TIA), and cerebral infarction without residual deficits
CPT/HCPCS: 36415; 70450; 71045; 80048; 80053; 80061; 81000; 82962; 83036; 83735; 84100; 84484; 85025; 85379; 85610; 85730; 87081; 87088; 93005; 93041; 96374; 96376

== ENCOUNTER 2017-08-24 05:41 | Outpatient (CLI) | payer MEDICARE, MEDICAID ==
[~2017-08-24] VITALS: Ht 165.1 cm; Wt 142.5 kg
[~2017-08-24 05:41] MED LIST changes: +GABA-486 PO; +METO-370 PO; +METO-387 PO; +METR500T21 PO
== END 2017-08-24 10:00 ==
LOC: PREOP 05:41
PROVIDERS: ATTEND Specialist
DX: Z01.818 Encounter for other preprocedural examination (principal); H25.12 Age-related nuclear cataract, left eye

== ENCOUNTER 2017-08-24 09:43 | Outpatient (RCR) | payer MEDICARE, MEDICAID ==
[2017-06-06 09:51] LABS: BASOPHILS % (AUTO) 0 % (0-10); EOSINOPHILS # (AUTO) 0.1 10^3/uL (0.0-0.3); EOSINOPHILS % (AUTO) 1 % (0-10); HEMATOCRIT 32 % (35-52); HEMOGLOBIN 10.2 G/DL (11.5-16.0); LYMPHOCYTES # (AUTO) 1.5 X 10^3 (1.0-4.0); LYMPHOCYTES % (AUTO) 24 % (12-44); MEAN CORPUSCULAR HEMOGLOBIN 30 PG (25-34); MEAN CORPUSCULAR HGB CONC 32 G/DL (32-36); MEAN CORPUSCULAR VOLUME 93 FL (80-99); MEAN PLATELET VOLUME 9.8 FL (7.4-10.4); MONOCYTES # (AUTO) 0.8 X 10^3 (0.0-1.0); MONOCYTES % (AUTO) 13 % (0-12); NEUTROPHILS % (AUTO) 62 % (42-75); PLATELET COUNT 208 10^3/uL (130-400); RED BLOOD COUNT 3.45 10^6/uL (4.35-5.85); RED CELL DISTRIBUTION WIDTH 14.1 % (10.0-14.5); WHITE BLOOD COUNT 6.4 10^3/uL (4.3-11.0)
[2017-06-06 10:10] LABS: ALBUMIN 3.4 GM/DL (3.2-4.5); BILIRUBIN,TOTAL 0.4 MG/DL (0.1-1.0); CALCIUM 9.4 MG/DL (8.5-10.1); CREATININE SERUM 2.24 MG/DL (0.60-1.30); POTASSIUM 5.5 MMOL/L (3.6-5.0); TOTAL PROTEIN 6.7 GM/DL (6.4-8.2)
[2017-07-27 10:08] LABS: BASOPHILS # (AUTO) 0.1 10^3/uL (0.0-0.1); BASOPHILS % (AUTO) 1 % (0-10); EOSINOPHILS # (AUTO) 0.1 10^3/uL (0.0-0.3); EOSINOPHILS % (AUTO) 1 % (0-10); HEMATOCRIT 30 % (35-52); HEMOGLOBIN 9.4 G/DL (11.5-16.0); LYMPHOCYTES # (AUTO) 1.4 X 10^3 (1.0-4.0); LYMPHOCYTES % (AUTO) 21 % (12-44); MEAN CORPUSCULAR HEMOGLOBIN 30 PG (25-34); MEAN CORPUSCULAR HGB CONC 31 G/DL (32-36); MEAN CORPUSCULAR VOLUME 95 FL (80-99); MONOCYTES # (AUTO) 0.7 X 10^3 (0.0-1.0); MONOCYTES % (AUTO) 10 % (0-12); NEUTROPHILS # (AUTO) 4.4 X 10^3 (1.8-7.8); NEUTROPHILS % (AUTO) 67 % (42-75); PLATELET COUNT 271 10^3/uL (130-400); RED BLOOD COUNT 3.19 10^6/uL (4.35-5.85); RED CELL DISTRIBUTION WIDTH 14.9 % (10.0-14.5); WHITE BLOOD COUNT 6.6 10^3/uL (4.3-11.0)
[2017-07-27 10:26] LABS: ALBUMIN 3.3 GM/DL (3.2-4.5); BILIRUBIN,TOTAL 0.5 MG/DL (0.1-1.0); CALCIUM 9.2 MG/DL (8.5-10.1); CREATININE SERUM 2.21 MG/DL (0.60-1.30); POTASSIUM 5.9 MMOL/L (3.6-5.0); TOTAL PROTEIN 7.4 GM/DL (6.4-8.2)
[2017-07-27 10:48] LABS: BILIRUBIN,URINE NEGATIVE (NEGATIVE); CLARITY,URINE CLEAR; COLOR,URINE YELLOW; GLUCOSE, URINE (UA) 4+ (NEGATIVE); KETONES,URINE NEGATIVE (NEGATIVE); LEUKOCYTE ESTERASE ,URINE 1+ (NEGATIVE); NITRITE,URINE NEGATIVE (NEGATIVE); PH,URINE 7 (5-9); PROTEIN,URINE 4+ (NEGATIVE); UROBILINOGEN,URINE NORMAL (NORMAL)
[2017-07-27 11:24] LABS: BACTERIA,URINE TRACE /HPF; RBC,URINE 0-2 /HPF; SQUAMOUS EPITHELIAL CELL,UR 25-50 /HPF; WBC,URINE 0-2 /HPF
[2017-08-10 10:42] LABS: BASOPHILS % (AUTO) 1 % (0-10); EOSINOPHILS # (AUTO) 0.1 10^3/uL (0.0-0.3); EOSINOPHILS % (AUTO) 2 % (0-10); HEMATOCRIT 33 % (35-52); HEMOGLOBIN 10.6 G/DL (11.5-16.0); LYMPHOCYTES # (AUTO) 1.4 X 10^3 (1.0-4.0); LYMPHOCYTES % (AUTO) 21 % (12-44); MEAN CORPUSCULAR HEMOGLOBIN 29 PG (25-34); MEAN CORPUSCULAR HGB CONC 32 G/DL (32-36); MEAN CORPUSCULAR VOLUME 91 FL (80-99); MEAN PLATELET VOLUME 9.3 FL (7.4-10.4); MONOCYTES # (AUTO) 0.6 X 10^3 (0.0-1.0); MONOCYTES % (AUTO) 9 % (0-12); NEUTROPHILS # (AUTO) 4.6 X 10^3 (1.8-7.8); NEUTROPHILS % (AUTO) 68 % (42-75); PLATELET COUNT 250 10^3/uL (130-400); WHITE BLOOD COUNT 6.7 10^3/uL (4.3-11.0)
[~2017-08-24 09:43] MED LIST changes: +DARBEPOETIN 25 MCG/ML (CANCER CTR) 1 ML VIAL SC SCH; +ROSU20TA30 PO; -ROSU20TA31 PO
== END 2017-09-04 | disposition home or self-care (01) ==
LOC: ONC 09:43
PROVIDERS: ATTEND Internal Medicine Hematology & Oncology
DX: N18.3 Chronic kidney disease, stage 3 (moderate) (principal); D63.1 Anemia in chronic kidney disease; Z79.899 Other long term (current) drug therapy
CPT/HCPCS: 36415; 36591; 80053; 81000; 82728; 85025; 96372

== ENCOUNTER 2017-09-01 08:33 | Day surgery (SDC) | payer MEDICARE, MEDICAID ==
[~2017-09-01] VITALS: Ht 165.1 cm; Wt 142.5 kg
[~2017-09-01 08:33] MED LIST changes: -DARBEPOETIN 25 MCG/ML (CANCER CTR) 1 ML VIAL SC SCH
[2017-09-01 08:52] VITALS: BP 183/92
[2017-09-01 09:00] VITALS: BP 183/92
[2017-09-01] MEDS ORDERED: EPINEPHrine INJECTION 1 MG/ML AMP INJ ONE (09:00)
[2017-09-01] MEDS ORDERED: POVIDONE (BETADINE) OPHTH SOLN 5% 30 ML OP ONE (09:00)
[2017-09-01] MEDS ORDERED: TIMOLOL MALEATE 0.5% 5 ML (TIMOPTIC) BTL OU PRN (09:00)
[2017-09-01] MEDS ORDERED: LIDOCAINE PF 1% 2 ML AMP IR PRN (09:00)
[2017-09-01] MEDS ORDERED: VANCOMYCIN/BSS (COMPOUNDED) 10 MG/ML SYR OP ONE (09:00)
[2017-09-01] MEDS: TETRACAINE 0.5% OPHTH SOLN 4 ML BTL (SINGLE DOSE ONLY) OU PRN ×4 (09:13→09:45)
[2017-09-01] MEDS: PHENYLEPHRINE 10% OPHTH (NEO-SYN) 5 ML BTL OU SCH ×3 (09:23→09:45)
[2017-09-01] MEDS: CYCLOPENTOLATE 1% (CYCLOGYL) 2 ML DROPS OP SCH ×3 (09:23→09:45)
[2017-09-01] MEDS ORDERED: MIDAZOLAM 2 MG/2 ML (VERSED) VIAL ONE (10:10)
--- NOTE | 2017-09-01 10:11 | Ophthalmologist Pre-Op Note ---
Pre-Operative Progress Note H&P Reviewed The H&P was reviewed, patient examined and no changes noted. Date H&P Reviewed: Sep 01, 2017 Time H&P Reviewed: 10:09 Pre-Op Dx Cataract, Left Eye SAYRA CONROY MD Sep 01, 2017 10:11
--- NOTE | 2017-09-01 10:36 | Ophthalmology Operative Report ---
Cataract removal/placement IOL PREOPERATIVE DIAGNOSIS: Cataract Left Eye POSTOPERATIVE DIAGNOSIS: Cataract Left Eye PROCEDURE: Cataract removal and placement of posterior chamber implant, left eye SURGEON: Kishore Conroy ANESTHESIA: Topical with sedation COMPLICATIONS: None ESTIMATED BLOOD LOSS: Minimal DESCRIPTION OF PROCEDURE: After proper informed consent was obtained, the patient, a 67 female, was taken to the Operating Room and the left eye was anesthetized with tetracaine. They left eye was then prepped and draped in the usual manner. A wire lid speculum was placed. A paracentesis was made at the left hand position. Preservative free lidocaine was injected into the anterior chamber followed by viscoelastic. A clear corneal incision was made in the temporal position. A capsulorrhexis was preformed and the central nuclear and cortical material were removed. The posterior capsule was polished and César 23.5 SN6CWS IOL was placed into the capsular bag. The residual viscoelastic was aspirated and balanced saline solution was injected into the anterior chamber. 1.0 mg of Vancomycin (10mg/ 1.0ml) was injected into the anterior chamber. The would was checked and found to be water tight. The patient tolerated the procedure well without complications. KISHORE CONROY MD Sep 01, 2017 10:36
[2017-09-01 10:45] VITALS: BP 195/114
--- NOTE | 2017-09-01 13:31 | Anesthesia-General Post-Op ---
MAC Patient Condition Mental Status/LOC: Same as Preop Cardiovascular: Satisfactory Nausea/Vomiting: Absent Respiratory: Satisfactory Pain: Controlled Complications: Absent Post Op Complications Complications None Follow Up Care/Instructions Patient Instructions None needed. Anesthesiology Discharge Order Discharge Order Patient was seen after surgery and was doing well, no complaints, stable vital signs, no apparent adverse anesthesia problems. ANCELMO COSTA DO Sep 01, 2017 13:31
== END 2017-09-01 11:03 | disposition home or self-care (01) ==
LOC: SDC 08:33
PROVIDERS: ATTEND Specialist
DX: E11.36 Type 2 diabetes mellitus with diabetic cataract (principal); I10 Essential (primary) hypertension; E66.01 Morbid (severe) obesity due to excess calories; Z68.43 Body mass index [BMI] 50.0-59.9, adult; Z86.718 Personal history of other venous thrombosis and embolism; Z79.02 Long term (current) use of antithrombotics/antiplatelets; Z79.82 Long term (current) use of aspirin; Z79.4 Long term (current) use of insulin; Z79.899 Other long term (current) drug therapy; Z95.5 Presence of coronary angioplasty implant and graft

== ENCOUNTER → 2017-09-07 | Outpatient (CLI) | payer MEDICARE, MEDICAID ==
[~2017-09-07] MED LIST changes: +ACET-77 PO; +ARGI2000 PO; +CALC1TAB94 PO; +CARB15DR2 OP; +DARB10SY IJ; +DIPH1TAB PO; +DOXA2TAB2 PO; +HYDR-3923 PO; +LACT20SO2 PO; +METO-395 PO; +POLY17PO23 PO; +TORS100T4 PO
[2017-09-07 14:02] LABS: ALBUMIN 3.3 GM/DL (3.2-4.5); CREATININE SERUM 2.13 MG/DL (0.60-1.30); PHOSPHORUS 4.4 MG/DL (2.3-4.7); POTASSIUM 5.2 MMOL/L (3.6-5.0)
== END ==
LOC: LAB 13:37
PROVIDERS: ATTEND Internal Medicine Nephrology
DX: E78.5 Hyperlipidemia, unspecified (principal); N08 Glomerular disorders in diseases classified elsewhere; I25.10 Atherosclerotic heart disease of native coronary artery without angina pectoris; E87.5 Hyperkalemia; I13.0 Hypertensive heart and chronic kidney disease with heart failure and stage 1 through stage 4 chronic kidney disease, or unspecified chronic kidney disease; N18.4 Chronic kidney disease, stage 4 (severe); D63.1 Anemia in chronic kidney disease; R80.9 Proteinuria, unspecified; E55.9 Vitamin D deficiency, unspecified; N25.0 Renal osteodystrophy; E11.21 Type 2 diabetes mellitus with diabetic nephropathy; E66.3 Overweight
CPT/HCPCS: 36415; 80061; 80069; 82306; 82570; 83036; 83970; 84156

== ENCOUNTER → 2017-09-08 | Outpatient (CLI) | payer MEDICARE, MEDICAID ==
[~2017-09-08] VITALS: Ht 165.1 cm; Wt 142.5 kg
== END ==
LOC: PREOP 05:39
PROVIDERS: ATTEND Specialist
DX: Z01.818 Encounter for other preprocedural examination (principal); H25.11 Age-related nuclear cataract, right eye

== ENCOUNTER 2017-09-15 07:44 | Day surgery (SDC) | payer MEDICARE, MEDICAID ==
[~2017-09-15] VITALS: Ht 165.1 cm; Wt 142.5 kg
[~2017-09-15 07:44] MED LIST changes: -ACET-77 PO; -ARGI2000 PO; -CALC1TAB94 PO; -CARB15DR2 OP; -DARB10SY IJ; -DIPH1TAB PO; -DOXA2TAB2 PO; -HYDR-3923 PO; -LACT20SO2 PO; -METO-395 PO; -POLY17PO23 PO; -TORS100T4 PO
--- OUTSIDE RECORDS SUMMARY | 2017-09-15 07:48 | XMS REPORT | Clinical Summary ---
Author Author [facility] Organization [facility] Address Unknown Phone Unavailable Care Team Providers Care [place] Facilitator Name Role Phone Tobi Benson MD PCP Source Comments Some departments are not documenting in the electronic medical record. If you do not see the information that you expected, contact Release of Information in the Health Information Management department at [phone] for further assistance in locating additional records.[facility] Allergies Not on File Current Medications [...]
[2017-09-15 07:50] VITALS: BP 158/94
--- OUTSIDE RECORDS SUMMARY | 2017-09-15 07:50 | XMS REPORT ---
Author Author MARY FRAGOSO [facility] Address [address] [place] [address] Care Team Providers Care Parcel Post Weigher Name Role Phone MARY FRAGOSO Unavailable PROBLEMS Type Condition ICD9-CM Code OTH53-PH Code Onset Dates Condition Status SNOMED Code Problem Severe sleep apnea G47.30 Active 80682307 Problem Chronic kidney disease, stage 3 (moderate) N18.3 Active 780681153 Problem Decreased diffusion capacity R94.2 Active 89935364 Problem Anemia in other chronic diseases classified elsewhere D63.8 Active 740323302 Problem Stenosis of carotid artery, unspecified laterality I65.29 Active 85751419 Problem Type 2 diabetes mellitus with diabetic polyneuropathy E11.42 Active 917715812 Problem Trochanteric bursitis of left hip M70.62 Active 513655203216621 Problem Diarrhea, unspecified type R19.7 Active 01798502 Problem Anxiety about health F41.8 Active 534570612 Problem Transient cerebral ischemia, unspecified type G45.9 Active 051563313 Problem Aortic valve sclerosis I35.8 Active 87722546 Problem Generalized osteoarthritis M15.9 Active 592511960 Problem Coronary artery disease involving grand traverse coronary artery of grand traverse heart, angina presence unspecified I25.10 Active 9575036870589 Problem Hypoxemia R09.02 Active 321521828 Problem Presence of IVC filter Z95.828 Active 000954167 Problem Port catheter in place Z95.828 Active 371569637 Problem BMI 50.0-59.9, adult Z68.43 Active 904030298 Problem Mixed hyperlipidemia E78.2 Active 462413461 Problem Type 2 diabetes mellitus with hyperglycemia E11.65 Active 86616179 Problem Essential hypertension I10 Active 72608484 Problem Iron deficiency anemia, unspecified iron deficiency anemia type D50.9 Active 54180077 Problem Type 2 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 Active 72024195 Problem Renal osteodystrophy N25.0 Active 12179676 Problem Type 2 diabetes mellitus with foot ulcer E11.621 Active 353618038 Problem 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 Active 9078795 ALLERGIES No Information ENCOUNTERS Encounter Location Date Diagnosis [place] [address] [place] [id number] [place] [address] 99034- 1225 24 Aug, 2017 Type 2 diabetes mellitus with foot ulcer E11.621 ; Transient cerebral ischemia, unspecified type G45.9 ; Essential hypertension I10 ; Mixed hyperlipidemia E78.2 and BMI 50.0-59.9, adult Z68.43 [place] [address] 14609- 7474 17 Aug, 2017 [place] [address] 70386- 3502 14 Jul, 2017 Anxiety about health F41.8 and Mixed hyperlipidemia E78.[address] 6[address]24- 7390 13 Jul, 2017 [place] [address] 38629- 3970 12 Jun, 2017 [place] [address] [id number] [place] [address] 23135- 4955 12 Jun, 2017 Type 2 diabetes mellitus with hyperglycemia E11.65 ; Type 2 diabetes mellitus with foot ulcer E11.621 ; Port catheter in place Z95.828 ; 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 ; Contact with and (suspected) exposure to potentially hazardous body fluids Z77.21 and BMI 50.0-59.9, adult Z68.43 [place] [address] [id number] [place] [address] 73254- 2306 May, [place] [address] 20901- 2677 May, Open wound of right great toe, subsequent encounter S91.101D [place] [address] [id number] [place] [address] 68710- 3523 May, [place] [id number] [address] 3737 Apr, [place] [address] [id number] [place] [address] 27206- 7297 Apr, [place] [address] [id number] [place] [address] 74170- 0529 Apr, [place] [address] [id number] [place] [address] 84911- 7740 Apr, Type 2 diabetes mellitus with diabetic polyneuropathy E11.42 [place] [id number] [place] [address] 23702- 3251 Apr, Open wound of right great toe, subsequent encounter S91.101D [place] [address] [id number] [place] [address] 76532- 0789 08 Apr, 2017 Open wound of right great toe, subsequent encounter S91.101D ; Breast pain, left N64.4 ; Breast cancer screening Z12.31 ; Type 2 diabetes mellitus with foot ulcer E11.621 ; Essential hypertension I10 and BMI 50.0-59.9, adult Z68.43 [place] [address] [id number] [place] [address] 95783- 2991 29 Mar, 2017 Encounter for immunization Z23 [place] [id number] [place] [address] 08709- 2596 Mar, [place] [address] [address] [id number] [place] [address] 96910- 1936 Mar, [place] [address] [address] [id number] [place] [address] 00806- 0116 Mar, Type 2 diabetes mellitus with diabetic polyneuropathy E11.42 ; Type 2 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 ; Type 2 diabetes mellitus with foot ulcer E11.621 ; Essential hypertension I10 ; Hypoxemia R09.02 and Generalized osteoarthritis M15.9 [place] [address] [address] 2684 Mar, Chronic kidney disease, stage 3 (moderate) N18.3 ; Acute cystitis without hematuria N30.00 ; Essential hypertension I10 ; Muscle spasms of neck M62.838 ; Type 2 diabetes mellitus with diabetic polyneuropathy E11.42 and BMI 50.0-59.9, adult Z68.43 [facility] [address] [address] 8609 Feb, [facility] [id number] [place] [address] 57660 -0441 Feb, [facility] [id number] [place] [address] 41420- 8130 Feb, [facility] [id number] [place] [address] 01561- 8511 Feb, [facility] [id number] [place] [address] 71791- 8526 Feb, [facility] [id number] [place] [address] 54120- 3108 Feb, [facility] [id number] [place] [address] 38699- 7612 Feb, Mixed hyperlipidemia E78.2 [facility] [id number] [place] [address] 91395- 3646 Feb, [facility] [id number] [place] [address] 14028- 1212 Jan, [facility] [id number] [place] [address] 90658- 0928 14 Jan, 2017 Generalized osteoarthritis M15.9 [facility] [id number] [place] [address] 04079- 9687 Oct, [facility] [id number] [place] [address] 61375- 9136 Jul, [facility] [id number] [place] [address] 18279- 3726 Jul, [facility] [address] [place] [address]- 5696 Jul, 2017 Type 2 diabetes mellitus with hyperglycemia E11.65 ; Chronic kidney disease, stage 3 (moderate) N18.3 ; Type 2 diabetes mellitus with foot ulcer E11.621 ; Type 2 diabetes mellitus with diabetic polyneuropathy E11.42 ; Generalized osteoarthritis M15.9 ; Trochanteric bursitis of left hip M70.62 and Tinea pedis of both feet B35.3 [place] [address] [id number] [place] [address] 87104- 3400 13 Jun, 2016 [place] [address] [address] [id number] [place] [address] 16345- 5947 Apr, [place] [address] 96281- 4989 Apr, [place] [address] 97655- 6968 Mar, [place] [address] 63694- 4912 Feb, Encounter for immunization Z23 [place] [id number] [place] [address] 49276- 6188 Feb, [place] [address] [address] [id number] [place] [address] 11265- 0845 Feb, Type 2 diabetes mellitus with hyperglycemia E11.65 ; Encounter for immunization Z23 ; Diarrhea, unspecified type R19.7 ; Essential hypertension I10 ; Mixed hyperlipidemia E78.2 ; Hypoxia R09.02 ; 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 and Type 2 diabetes mellitus with foot ulcer E11.621 [place] [address] [id number] [place] [address] 78242- 9534 Jan, [address] 08509- 7253 Jan, Type 2 diabetes mellitus with hyperglycemia E11.65 and Pneumonia due to infectious organism, unspecified laterality, unspecified part of lung J18.9 [place] [address] [address]- 4718 Jan, [facility] [id number] [place] [address] 31725- 8430 Jan, [facility] [id number] [place] [address] 16699- 4927 Oct, Type 2 diabetes mellitus with hyperglycemia E11.65 ; Generalized osteoarthritis M15.9 and Chronic prescription opiate use Z79.891 [facility] [address] [id number] [place] [address] 18324- 2885 September, [facility] [id number] [place] [address] 08761- 7869 Aug, [facility] [id number] [place] [address] 44927- 1230 Aug, [facility] [address] [id number] [place] [address] 59142- 7863 Aug, [facility] [id number] [place] [address] 10712- 4440 Aug, [facility] [address] [id number] [place] [address] 36987- 4612 Jun, [facility] [id number] [place] [address] 18426- 4652 Jun, Type 2 diabetes mellitus with hyperglycemia E11.65 ; Mixed hyperlipidemia E78.2 ; Vaginal itching L29.8 ; Neck muscle spasm M62.838 and Skin abrasion T14.8 [facility] [address] [address]- 0364 Apr, [facility] [address] [id number] [place] [address] 40380- 5901 Apr, [facility] [id number] [place] [address] 27499- 7558 Mar, [facility] [address] [id number] [place] [address] 13892- 7703 Feb, [facility] [address] [id number] [place] [address] 08336- 4935 Feb, Type 2 diabetes mellitus with hyperglycemia E11.65 ; Type 2 diabetes mellitus with foot ulcer E11.621 ; Type 2 diabetes mellitus with diabetic polyneuropathy E11.42 and Encounter for immunization Z23 [facility] [address] [place] [id number] [place] [address] 94967- 2553 Jan, Hypertension 401.9 ; Uncontrolled type 2 diabetes mellitus 250.02 ; Right shoulder pain 719.41 and Ulcer of heel and midfoot 707.14 [facility] [address] [place] [id number] [place] [address] 11165- 2318 Dec, Diabetes with other specified manifestations, type II or unspecified type, not stated as uncontrolled 250.80 ; Ulcer of heel and midfoot 707.14 ; Hypertension 401.9 ; Hip pain, left 719.45 and Acute anxiety 300.00 [facility] [address] 30117- 7424 Nov, [facility] [address] [place] [id number] [place] [address] 60321- 2133 Nov, [facility] [address] [place] [id number] [place] [address] 13083- 0713 September, Anxiety attack 300.01 and Cellulitis 682.9 [facility] [address] [id number] [place] [address] 53352- 5001 September, [facility] [address] [id number] [place] [address] 25557- 9775 September, [facility] [address] [place] [address] [id number] [place] [address] 13030- 5361 September, [facility] [address] [place] [id number] [place] [address] 66848- 2801 Aug, [facility] [address] [id number] [place] [address] 38160- 3108 Aug, [facility] [place] [facility] [address] [id number] [place] [address]- 9953 13 Jul, 2014 [facility] [place] [facility] [address] [id number] [place] [address]- 0621 13 Jul, 2014 [facility] [place] [facility] [address] [id number] [place] [address]- 2416 05 Jul, 2014 [facility] [place] [facility] [address] [id number] [place] [address]- 4604 13 May, 2014 [facility] [place] [facility] [address] [id number] [place] [address]- 2602 13 May, 2014 [facility] [place] [facility] [address] [id number] [place] [address]- 5371 Mar, [facility] [place] [facility] [address] [id number] [place] [address]- 7892 Mar, [facility] [place] [facility] [address] [id number] [place] [address]- 8660 Mar, [facility] [place] [facility] [address] [id number] [place] [address]- 6052 Mar, [facility] [place] [facility] [address] [id number] [place] [address]- 2977 Mar, [facility] [place] [facility] [address] [id number] [place] [address]- 7742 Mar, [facility] [place] [facility] [address] [id number] [place] [address]- 3647 Mar, [facility] [place] [facility] [address] [id number] [place] [address]- 3866 14 Feb, 2014 [facility] [place] [facility] [address] [id number] [place] [address]- 5522 14 Feb, 2014 [facility] [place] [facility] [address] [id number] [place] [address]- 1690 30 Jan, 2014 [facility] [place] [facility] [address] [id number] [place] [address]- 0001 30 Sep, 2013 [facility] [place] [facility] [address] [id number] [place] [address] 2546 26 Sep, 2013 [facility] [place] [facility] [address] [id number] [place] [address] 2546 26 Sep, 2013 [facility] [place] [facility] [address] [id number] [place] [address] 2546 25 Sep, 2013 [facility] [place] [facility] [address] [id number] [place] [address] 2545 25 Sep, 2013 [facility] [place] [facility] [address] [id number] [place] [address]- 3631 25 Sep, 2013 [facility] [place] [facility] [address] [id number] [place] [address]- 3683 25 Sep, 2013 [facility] [place] [facility] [address] [id number] [place] [address]- 4944 18 Sep, 2013 [facility] [place] [facility] [address] [id number], [place] [address]- 3699 18 Sep, 2013 [facility] [place] [facility] [address] [id number], [place] [address]- 8601 06 Sep, 2013 [facility] [place] [facility] [address] [id number] [place] [address]- 8581 06 Sep, 2013 [facility] [place] [facility] [address] [id number], [place] [address] 2543 05 Sep, 2013 [facility] [place] [facility] [address] [id number], [place] [address] 2541 05 Sep, 2013 [facility] [place] [facility] [address] [id number], [place] [address] 2546 05 Sep, 2013 [facility] [place] [facility] [address] [id number], [place] [address]- 2546 05 Sep, 2013 [facility] [place] [facility] [address] [id number], [place] [address]- 2546 05 Sep, 2013 [facility] [place] [facility] [address] [id number] [place] [address]- 0444 05 Jan, 2013 [facility] [place] [facility] [address] [id number] [place] [address]- 2248 Dec, [facility] [place] [facility] [address] [id number] [place] [address]- 6103 Dec, [facility] [place] [facility] [address] [id number] [place] [address]- 9865 Dec, 2013 [facility] [place] [facility] [address] [id number] [place] [address]- 9191 Dec, [facility] [place] [facility] [address] [id number] [place] [address]- 1597 Dec, [facility] [place] [facility] [address] [id number] [place] [address]- 4380 Dec, [facility] [place] [facility] [address] [id number] [place] [address]- 7094 Dec, [facility] [place] [facility] [address] [id number] [place] [address]- 9824 Dec, [facility] [place] [facility] [address] [id number] [place] [address]- 2629 Dec, [facility] [place] [facility] [address] [id number] [place] [address]- 9246 Dec, [facility] [place] [facility] [address] [id number] [place] [address]- 6198 Nov, [facility] [place] [facility] [address] [id number] [place] [address]- 3877 Nov, [facility] [place] [facility] [address] [id number] [place] [address]- 6992 Nov, [facility] [place] [facility] [address] [id number] [place] [address]- 5880 Nov, [facility] [place] [facility] [address] [id number] [place] [address]- 4843 Nov, [facility] [place] [facility] [address] [id number] [place] [address]- 5410 Nov, [facility] [place] [facility] [address] [id number] [place] [address]- 7459 Oct, [facility] [place] [facility] [address] [id number] [place] [address]- 1396 Oct, [facility] [place] [facility] [address] [id number] [place] [address]- 7595 Oct, [facility] [place] [facility] [address] [id number] [place] [address]- 9926 Oct, [facility] [place] [facility] [address] [id number] [place] [address]- 0466 Oct, [facility] [place] [facility] [address] [id number] [place] [address]- 2207 Oct, [facility] [place] [facility] [address] [id number] [place] [address]- 0334 Oct, [facility] [place] [facility] [address] [id number] [place] [address]- 0385 Oct, [facility] [place] [facility] [address] [id number] [place] [address]- 3792 Oct, [facility] [place] [facility] [address] [id number] [place] [address]- 7555 Oct, [facility] [place] [facility] [address] [id number] [place] [address]- 2171 Oct, [facility] [place] [facility] [address] [id number] [place] [address]- 4376 Oct, [facility] [place] [facility] [address] [id number] [place] [address]- 4852 September, [facility] [place] [facility] [address] [id number] [place] [address]- 8785 September, [facility] [place] [facility] [address] [id number] [place] [address]- 6845 September, [facility] [place] [facility] [address] [id number] [place] [address]- 3208 Aug, [facility] [place] [facility] [address] [id number] [place] 7896 Aug, [facility] [place] [facility] [address] [id number] [place] [address]- 6079 Jul, [facility] [place] [facility] [address] [id number] [place] [address]- 0438 Jul, [facility] [place] [facility] [address] [id number] [place] [address]- 0900 Jul, [facility] [place] [facility] [address] [id number] [place] [address]- 1696 Jul, [facility] [place] [facility] [address] [facility] [id number] [place] [address]- 8727 Jul, [facility] [place] [facility] [address] [id number] [place] [address]- 8821 Jul, [facility] [place] [facility] [address] [id number] [place] [address]- 1462 Jul, [facility] [place] [facility] [address] [id number] [place] [address]- 1570 Jul, [facility] [place] [facility] [address] [id number] [place] [address]- 9516 Jul, [facility] [place] [facility] [address] [id number] [place] [address]- 1428 Jul, [facility] [place] [facility] [address] [id number] [place] [address]- 2576 Jun, [facility] [place] [facility] [address] [id number] [place] 5262 Jun, [facility] [place] [facility] [address] [id number] [place] [address]- 5403 Jun, [facility] [place] [facility] [address] [id number] [place] [address]- 5916 Jun, [facility] [place] [facility] [address] [id number] [place] [address]- 0361 May, [facility] [place] [facility] [address] [id number] [place] [address]- 8108 May, [facility] [place] [facility] [address] [id number] [place] [address]- 0349 Apr, [facility] [place] [facility] [address] [id number] [place] [address]- 2332 Apr, [facility] [place] [facility] [address] [id number] [place] [address]- 3003 Apr, [facility] [place] [facility] [address] [id number] [place] 7368 Apr, [facility] [place] [facility] [address] [id number] [place] [address]- 9695 Apr, [facility] [place] [facility] [address] [id number] [place] [address]- 5166 Apr, [facility] [place] [facility] [address] [id number] [place] 0841 Apr, [facility] [place] [facility] [address] [id number] [place] [address]- 7561 Apr, [facility] [place] [facility] [address] [id number] [place] [address]- 6683 Mar, [facility] [place] [facility] [address] [id number] [place] [address]- 3716 Mar, [facility] [place] [facility] [address] [id number] [place] [address]- 5766 Mar, [facility] [place] [facility] [address] [id number] [place] [address]- 4906 Mar, [facility] [place] [facility] [address] [id number] [place] [address]- 9787 08 Mar, 2013 [facility] [place] [facility] [address] [id number] [place] [address]- 2943 08 Mar, 2013 [facility] [place] [facility] [address] [id number] [place] [address]- 5646 30 Feb, 2013 [facility] [place] [facility] [address] [id number] [place] [address]45 30 Feb, 2013 [facility] [place] [facility] [address] [id number] [place] [address] Feb, [facility] [place] [facility] [address] [id number] [place] [address] 18 Feb, 2013 [facility] [place] [facility] [address] [id number] [place] [address] Feb, [facility] [place] [facility] [address] [id number] [place] [address] Feb, [facility] [place] [facility] [address] [id number], [place] [address] 04 Feb, 2013 [facility] [place] [facility] [address] [id number] [place] [address] 27 Jan, 2013 [facility] [place] [facility] [address] [id number] [place] [address] 26 Jan, 2013 [facility] [place] [facility] [address] [id number], [place] [address] 25[address] 19 Jan, 2013 [facility] [place] [facility] [address] [id number], [place] [address] 05 Jan, 2013 [facility] [place] [facility] [address] [id number] [place] [address] Dec, [facility] [place] [facility] [address] [id number], [place] [address] Dec, [facility] [place] [facility] [address] [id number], [place] [address] Dec, [facility] [place] [facility] [address] [id number] [place] [address] Nov, [facility] [address] [id number] [place] [address]698 Nov, [facility] [place] [facility] [address] [id number] [place] [address] Nov, [facility] [address] [id number] [place] [address] Nov, [facility] [place] [facility] [address] [id number] [place] [address] Nov, [facility] [address] [id number] [place] [address]- [address] Nov, [facility] [address] [id number] [place] [address] Oct, [facility] [address] [id number] [place] [address] Oct, [facility] [address] [id number] [place] [address] Oct, [facility] [place] [facility] [address] [id number] [place] [address] Oct, [facility] [address] [id number] [place] [address] Oct, [facility] [place] [facility] [address] [id number] [place] [address] Oct, [facility] [place] [facility] [address] [id number] [place] [address] September, [facility] [place] [facility] [address] [id number] [place] [address]46 September, [facility] [place] [facility] [address] [id number] [place] [address] September, [facility] [place] [facility] [address] [id number] [place] [address] September, [facility] [address] [id number] [place] [address] Aug, [facility] [address] [id number] [place] [address] Aug, [facility] [address] [id number] [place] [address] 28 Jul, 2012 [facility] [address] [id number] [place] [address] Jul, [facility] [address] [id number] [place] [address] 18 Jul, 2012 [facility] [address] [id number] [place] [address] 15 Jul, 2012 [facility] [address] [id number] [place] [address] Jul, [facility] [address] [id number] [place] [address] Jul, [facility] [address] [id number] [place] [address] Jun, [facility] [address] [id number] [place] [address] Jun, [facility] [address] [id number] [place] [address] May, [facility] [address] [id number], [place] [address] May, [facility] [address] [id number] [place] [address] Apr, [facility] [address] [id number] [place] [address] Apr, [facility] [address] [id number] [place], [place] [address] Apr, [facility] [address] [id number] [place] [address] 13 Apr, 2012 [facility] [place] [facility] [address] [id number] [place] [address] 2685 10 Apr, 2012 [facility] [place] [facility] [address] [id number] [place] [address] 72[address] 10 Apr, 2012 [facility] [place] [facility] [address] [facility] [id number] [place] [address] 07 Apr, 2012 [facility] [place] [facility] [address] [id number] [place] [address] 6[address] 07 Apr, 2012 [facility] [place] [facility] [address] [id number] [place] [address] Apr, [facility] [place] [facility] [address] [id number] [place] [address] 8221 Apr, [facility] [place] [facility] [address] [facility] [id number] [place] [address] 8878 Apr, [facility] [place] [facility] [address] [id number] [place] [address] 6876 Apr, [facility] [place] [facility] [address] [facility] [id number] [place] [address] 4884 Apr, [facility] [place] [facility] [address] [facility] [id number] [place] [address] Apr, [facility] [place] [facility] [address] [facility] [id number] [place] [address] 0647 Apr, [facility] [place] [facility] [address] [id number] [place] [address]- 1447 Apr, [facility] [place] [facility] [address] [id number] [place] [address]- [address] Mar, [facility] [place] [facility] [address] [id number] [place] [address] 1447 Mar, [facility] [place] [facility] [address] [facility] [id number] [place] [address]- 8127 16 Mar, 2012 [facility] [place] [facility] [address] [id number] [place] [address]- 9787 16 Mar, 2012 [facility] [place] [facility] [address] [id number] [place] [address] 7950 Mar, [facility] [place] [facility] [address] [id number] [place] [address] 2546 Mar, [facility] [place] [facility] [address] [id number] [place] [address] 3258 Mar, [facility] [place] [facility] [address] [id number] [place] [address]- 7953 Mar, [facility] [place] [facility] [address] [id number] [place] [address] 4725 Mar, [facility] [place] [facility] [address] [id number] [place] [address]- 6005 Mar, [facility] [place] [facility] [address] [id number] [place] [address]- 4880 Feb, [facility] [place] [facility] [address] [id number] [place] [address] Feb, [facility] [place] [facility] [address] [id number] [place] [address] 4255 Feb, [facility] [place] [facility] [address] [facility] [id number] [place] [address]- 6378 Feb, [facility] [place] [facility] [address] [id number] [place] [address] 6818 Feb, [facility] [place] [facility] [address] [id number] [place] [address] 8580 Feb, [facility] [place] [facility] [address] [id number] [place] [address] 7336 Jan, [facility] [place] [facility] [address] [id number] [place] [address]- 2546 Dec, [facility] [place] [facility] [address] [id number] [place] [address]- 9123 Dec, [facility] [place] [facility] [address] [id number] [place] [address] 3711 Dec, [facility] [place] [facility] [address] [id number] [place] [address]- 0764 Dec, [facility] [place] [facility] [address] [id number] [place] [address] 9062 Nov, [facility] [place] [facility] [address] [id number] [place] [address]- 6967 Nov, [facility] [place] [facility] [address] [id number] [place] [address]- 4178 Nov, [facility] [place] [facility] [address] [id number] [place] [address]- 9488 Nov, [facility] [place] [facility] [address] [id number] [place] [address] 7644 Oct, [facility] [place] [facility] [address] [id number] [place] [address] 3809 Oct, [facility] [place] [facility] [address] [id number] [place] [address] 3849 Oct, [facility] [place] [facility] [address] [id number] [place] [address]- 4323 Oct, [facility] [place] [facility] [address] [id number] [place] [address]- 6335 Oct, [facility] [place] [facility] [address] [id number] [place] [address]- 5512 September, [facility] [place] [facility] [address] [id number] [place] [address] 6505 September, [facility] [place] [facility] [address] [id number] [place] [address]- 4125 September, [facility] [place] [facility] [address] [id number] [place] [address]- 0364 September, [facility] [place] [facility] [address] [id number] [place] [address]- 8346 16 Sep, 2011 [facility] [address] [id number] [place] [address] 3234 September, [facility] [address] [id number] [place] [address]- 6741 September, [facility] [address] [id number] [place] [address]- 4626 September, [facility] [address] [id number] [place] [address]- 4935 Aug, [facility] [address] [id number] [place] [address] 3403 Aug, [facility] [address] [id number] [place] [address]- 0405 Aug, [facility] [address] [id number] [place] [address] 3108 Aug, [facility] [address] [id number] [place] [address]- 4771 18 Aug, 2011 [facility] [address] [id number] [place] [address]- 3092 17 Aug, 2011 [facility] [address] [id number] [place] [address]- 7882 13 Aug, 2011 [facility] [address] [id number] [place] [address]- 4540 12 Aug, 2011 [facility] [place] [facility] [address] [id number] [place] [address]- 8437 10 Aug, 2011 [facility] [place] [facility] [address] [id number] [place] [address]- 6664 09 Aug, 2011 [facility] [place] [facility] [address] [id number] [place] [address]- 2886 Aug, [facility] [address] [id number] [place] [address]- 2839 Aug, [facility] [address] [id number] [place] [address]- 7650 29 Jul, 2011 [facility] [place] [facility] [address] [id number] [place] [address]- 0846 28 Jul, 2011 [facility] [place] [facility] [address] [id number] [place] [address]- 6496 27 Jul, 2011 [facility] [place] [facility] [address] [id number] [place] [address]- 3008 23 Jul, 2011 [facility] [place] [facility] [address] [id number] [place] [address]- 9404 21 Jul, 2011 [facility] [place] [facility] [address] [id number] [place] [address]- 1935 21 Jul, 2011 [facility] [place] [facility] [address] [id number] [place] [address]- 2304 14 Jul, 2011 [facility] [place] [facility] [address] [id number] [place] [address]- 5605 13 Jul, 2011 [facility] [place] [facility] [address] [id number] [place] [address]- 8105 07 Jul, 2011 [facility] [place] [facility] [address] [id number] [place] [address]- 0956 24 Jun, 2011 [facility] [place] [facility] [address] [id number] [place] [address]- 0065 Jun, [facility] [place] [facility] [address] [id number] [place] [address]- 0309 23 Jun, 2011 [facility] [place] [facility] [address] [id number] [place] [address]- 4656 14 Jun, 2011 [facility] [place] [facility] [address] [id number] [place] [address]- 9496 02 Jun, 2011 [facility] [place] [facility] [address] [id number] [place] [address]- 4646 02 Jun, 2011 [facility] [place] [facility] [address] [id number] [place] [address]- 3816 02 Jun, 2011 [facility] [address] [id number] [place] [address]- 5384 May, [facility] [address] [id number] [place] [address]- 6836 May, [facility] [address] [id number] [place] [address]- 0356 May, [facility] [address] [id number] [place] [address]- 7211 May, [facility] [address] [id number] [place] [address]- 4953 May, [facility] [address] [id number] [place] [address]- 5066 May, [facility] [address] [id number] [place] [address]- 7442 May, [facility] [address] [id number] [place] [address]- 4050 Apr, [facility] [address] [id number] [place] [address]- 8538 Apr, [facility] [address] [id number] [place] [address]- 7857 Apr, [facility] [address] [id number] [place] [address]- 1497 Apr, [facility] [place] [facility] [address] [id number] [place] [address] 2549 Apr, [facility] [place] [facility] [address] [id number] [place] [address]- 3040 Apr, [facility] [place] [facility] [address] [id number] [place] [address]- 2626 13 Apr, 2011 [facility] [address] [id number] [place] [address]- 1520 08 Apr, 2011 [facility] [place] [facility] [address] [id number] [place] [address]- 7710 Apr, [facility] [place] [facility] [address] [id number] [place] [address]- 7573 Mar, [facility] [place] [facility] [address] [id number] [place] [address]- 8780 Mar, [facility] [place] [facility] [address] [id number] [place] [address]- 2637 Mar, [facility] [place] [facility] [address] [id number] [place] [address]- 1447 Mar, [facility] [place] [facility] [address] [id number] [place] [address]- 2510 Mar, [facility] [place] [facility] [address] [id number] [place] [address]- 2903 Feb, [facility] [place] [facility] [address] [id number] [place] [address]- 4761 Feb, [facility] [place] [facility] [address] [id number] [place] [address]- 2727 Feb, [facility] [place] [facility] [address] [id number] [place] [address]- 5934 Dec, [facility] [place] [facility] [address] [id number] [place] [address]- 4474 Nov, [facility] [place] [facility] [address] [id number] [place] [address]- 4661 Apr, [facility] [place] [facility] [address] [id number] [place] [address] Apr, [facility] [place] [facility] [address] [id number] [place] [address]- 6373 16 Apr, 2010 [facility] [place] [facility] [address] [id number] [place] [address]- 4163 13 Apr, 2010 [facility] [place] [facility] [address] [id number] [place] [address]- 9037 Apr, [facility] [id number] [address]702 Apr, [facility] [id number] [place] [address]- 4887 Apr, [facility] [id number] [address]- 2064 Apr, [facility] [id number] [place] [address]- 6850 Mar, [facility] [id number] [place] [address]- 9037 Mar, [facility] [id number] [place] [address]- 2841 Mar, [facility] [id number] [place] [address]- 6741 Mar, [facility] [id number] [place] [address]- 0787 Mar, [facility] [id number] [place] [address]- 8720 Mar, [facility] [id number] [place] [address]- 2633 Mar, [facility] [address] [id number] [address]- 5722 Mar, [facility] [address] [id number] [address]- 0754 Mar, [facility] [address] [id number] [address] 7050 Mar, IMMUNIZATIONS No Known Immunizations SOCIAL HISTORY Never Assessed REASON FOR VISIT Refill Request PLAN OF CARE VITAL SIGNS MEDICATIONS No Known Medications RESULTS No Results PROCEDURES No Known [...] Hospitalization History surgeries Hospitalization History UTI 02/2017 Hospitalization History HTN, TIA like symptoms 08/2017
--- OUTSIDE RECORDS SUMMARY | 2017-09-15 07:52 | XMS REPORT ---
Author Author MARY FRAGOSO [facility] Address [address] [place] [address] Care Team Providers Care Slitter Processed Film Name Role Phone MARY FRAGOSO Unavailable PROBLEMS Type Condition ICD9-CM Code BWN72-IN Code Onset Dates Condition Status SNOMED Code Problem Severe sleep apnea G47.30 Active 80162379 Problem Chronic kidney disease, stage 3 (moderate) N18.3 Active 807732248 Problem Decreased diffusion capacity R94.2 Active 09945707 Problem Anemia in other chronic diseases classified elsewhere D63.8 Active 148752275 Problem Stenosis of carotid artery, unspecified laterality I65.29 Active 27460337 Problem Type 2 diabetes mellitus with diabetic polyneuropathy E11.42 Active 901732392 Problem Trochanteric bursitis of left hip M70.62 Active [id number] Problem Diarrhea, unspecified type R19.7 Active 19169053 Problem Anxiety about health F41.8 Active 900255442 Problem Transient cerebral ischemia, unspecified type G45.9 Active 524375328 Problem Aortic valve sclerosis I35.8 Active 37300995 Problem Generalized osteoarthritis M15.9 Active 179986618 Problem Coronary artery disease involving [place] coronary artery of [place] heart, angina presence unspecified I25.10 Active 6816022095955 Problem Hypoxemia R09.02 Active 656124318 Problem Presence of IVC filter Z95.828 Active 044212936 Problem Port catheter in place Z95.828 Active 488904194 Problem BMI 50.0-59.9, adult Z68.43 Active 523295788 Problem Mixed hyperlipidemia E78.2 Active 127612482 Problem Type 2 diabetes mellitus with hyperglycemia E11.65 Active 53664951 Problem Essential hypertension I10 Active 15213417 Problem Iron deficiency anemia, unspecified iron deficiency anemia type D50.9 Active 61800706 Problem Type 2 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 Active 98881773 Problem Renal osteodystrophy N25.0 Active 94022970 Problem Type 2 diabetes mellitus with foot ulcer E11.621 Active 879960988 Problem 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 Active 2947442 ALLERGIES No Information ENCOUNTERS Encounter Location Date Diagnosis [facility] [id number] [place] [address] 03662- 1282 24 Aug, 2017 Type 2 diabetes mellitus with foot ulcer E11.621 ; Transient cerebral ischemia, unspecified type G45.9 ; Essential hypertension I10 ; Mixed hyperlipidemia E78.2 and BMI 50.0-59.9, adult Z68.43 [facility] [address] 8[address]43- 3228 17 Aug, 2017 [facility] [address] 23355- 1727 14 Jul, 2017 Anxiety about health F41.8 and Mixed hyperlipidemia E78.[address] 58143- 7073 13 Jul, 2017 [facility] [address] 49515- 9642 12 Jun, 2017 [facility] [id number] [place] [address] 24041- 4284 12 Jun, 2017 Type 2 diabetes mellitus with hyperglycemia E11.65 ; Type 2 diabetes mellitus with foot ulcer E11.621 ; Port catheter in place Z95.828 ; 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 ; Contact with and (suspected) exposure to potentially hazardous body fluids Z77.21 and BMI 50.0-59.9, adult Z68.43 [facility] [id number] [place] [address] 22517- 9580 May, [facility] [address] 30001- 3786 May, Open wound of right great toe, subsequent encounter S91.101D [facility] [id number] [place] [address] 07122- 7188 May, [facility] [id number] [address]- 8500 Apr, [facility] [id number] [place] [address] 69642- 3492 Apr, [facility] [id number] [place] [address] 50731- 9604 Apr, [facility] [id number] [place] [address] 01235- 7540 Apr, Type 2 diabetes mellitus with diabetic polyneuropathy E11.42 [facility] [address] [place] [address] 95132- 3202 Apr, Open wound of right great toe, subsequent encounter S91.101D [facility] [id number] [place] [address] 91832- 1050 08 Apr, 2017 Open wound of right great toe, subsequent encounter S91.101D ; Breast pain, left N64.4 ; Breast cancer screening Z12.31 ; Type 2 diabetes mellitus with foot ulcer E11.621 ; Essential hypertension I10 and BMI 50.0-59.9, adult Z68.43 [facility] [id number] [place] [address] 77394- 4251 29 Mar, 2017 Encounter for immunization Z23 [facility] [address] [place] [address] 39046- 9598 Mar, [facility] [id number] [place] [address] 31572- 2530 Mar, [facility] [id number] [place] [address] 80694- 9600 Mar, Type 2 diabetes mellitus with diabetic polyneuropathy E11.42 ; Type 2 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 ; Type 2 diabetes mellitus with foot ulcer E11.621 ; Essential hypertension I10 ; Hypoxemia R09.02 and Generalized osteoarthritis M15.9 [facility] [address] [address]- 2742 Mar, Chronic kidney disease, stage 3 (moderate) N18.3 ; Acute cystitis without hematuria N30.00 ; Essential hypertension I10 ; Muscle spasms of neck M62.838 ; Type 2 diabetes mellitus with diabetic polyneuropathy E11.42 and BMI 50.0-59.9, adult Z68.43 [facility] [address] [address]- 6459 Feb, [facility] [id number] [place] [address] 17797 -4361 Feb, [facility] [id number] [place] [address] 71965- 4892 Feb, [facility] [id number] [place] [address] 23059- 2215 Feb, [facility] [id number] [place] [address] 36679- 4826 Feb, [facility] [id number] [place] [address] 38185- 0185 Feb, [facility] [id number] [place] [address] 18612- 3806 Feb, Mixed hyperlipidemia E78.2 [facility] [id number] [place] [address] 50849- 2731 Feb, [facility] [id number] [place] [address] 99825- 5853 Jan, [facility] [id number] [place] [address] 37587- 6814 14 Jan, 2017 Generalized osteoarthritis M15.9 [facility] [id number] [place] [address] 01008- 3208 Oct, [facility] [id number] [place] [address] 79846- 0576 Jul, [facility] [id number] [place] [address] 55548- 8744 Jul, [facility] [address] [place] [address]- 7848 Jul, 2017 Type 2 diabetes mellitus with hyperglycemia E11.65 ; Chronic kidney disease, stage 3 (moderate) N18.3 ; Type 2 diabetes mellitus with foot ulcer E11.621 ; Type 2 diabetes mellitus with diabetic polyneuropathy E11.42 ; Generalized osteoarthritis M15.9 ; Trochanteric bursitis of left hip M70.62 and Tinea pedis of both feet B35.3 [facility] [id number] [place] [address] 00319- 9969 13 Jun, 2016 [place] [place] [id number] [place] [address] 18087- 6787 Apr, [facility] [address] 67455- 6316 Apr, [facility] [address] 63777- 8959 Mar, [place] [place] [address] 27301- 3971 Feb, Encounter for immunization Z23 [place] [id number] [place] [address] 40530- 2119 Feb, [facility] [id number] [place] [address] 90304- 4259 Feb, Type 2 diabetes mellitus with hyperglycemia E11.65 ; Encounter for immunization Z23 ; Diarrhea, unspecified type R19.7 ; Essential hypertension I10 ; Mixed hyperlipidemia E78.2 ; Hypoxia R09.02 ; 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 and Type 2 diabetes mellitus with foot ulcer E11.621 [place] [place] [id number] [place] [address] 31331- 0500 Jan, [address] 53140- 2737 Jan, Type 2 diabetes mellitus with hyperglycemia E11.65 and Pneumonia due to infectious organism, unspecified laterality, unspecified part of lung J18.9 [place] [address] [address]- 8882 Jan, [facility] [id number] [place] [address] 80861- 1778 Jan, [facility] [id number] [place] [address] 87115- 9002 Oct, Type 2 diabetes mellitus with hyperglycemia E11.65 ; Generalized osteoarthritis M15.9 and Chronic prescription opiate use Z79.891 [facility] [id number] [place] [address] 07575- 0382 September, [facility] [id number] [place] [address] 79622- 0463 Aug, [facility] [id number] [place] [address] 37755- 2310 Aug, [facility] [id number] [place] [address] 90665- 2987 Aug, [facility] [address] [place] [address] 71500- 9370 Aug, [facility] [id number] [place] [address] 35149- 3703 Jun, [facility] [address] [place] [address] 86249- 7560 Jun, Type 2 diabetes mellitus with hyperglycemia E11.65 ; Mixed hyperlipidemia E78.2 ; Vaginal itching L29.8 ; Neck muscle spasm M62.838 and Skin abrasion T14.8 [facility] [address] [address]- 4472 Apr, [facility] [id number] [place] [address] 58821- 1772 Apr, [facility] [address] [place] [address] 26135- 1788 Mar, [facility] [id number] [place] [address] 88396- 5727 Feb, [facility] [id number] [place] [address] 81145- 5745 Feb, Type 2 diabetes mellitus with hyperglycemia E11.65 ; Type 2 diabetes mellitus with foot ulcer E11.621 ; Type 2 diabetes mellitus with diabetic polyneuropathy E11.42 and Encounter for immunization Z23 [facility] [id number] [place] [address] 42777- 3115 Jan, Hypertension 401.9 ; Uncontrolled type 2 diabetes mellitus 250.02 ; Right shoulder pain 719.41 and Ulcer of heel and midfoot 707.14 [facility] [id number] [place] [address] 07453- 1961 Dec, Diabetes with other specified manifestations, type II or unspecified type, not stated as uncontrolled 250.80 ; Ulcer of heel and midfoot 707.14 ; Hypertension 401.9 ; Hip pain, left 719.45 and Acute anxiety 300.00 [facility] [address] 35401- 5444 Nov, [facility] [id number] [place] [address] 11596- 5157 Nov, [facility] [id number] [place] [address] 51286- 3119 September, Anxiety attack 300.01 and Cellulitis 682.9 [facility] [id number] [place] [address] 77139- 2802 September, [facility] [id number] [place] [address] 03235- 4791 September, [facility] [id number] [place] [address] 48013- 6825 September, [facility] [id number] [place] [address] 90753- 3680 Aug, [facility] [id number] [place] [address] 21227- 8646 Aug, [facility] [place] [facility] [address] [id number] [place] [address]- 4835 13 Jul, 2014 [facility] [place] [facility] [address] [id number] [place] [address]- 4282 13 Jul, 2014 [facility] [place] [facility] [address] [id number] [place] [address]- 5727 05 Jul, 2014 [facility] [place] [facility] [address] [id number] [place] [address]- 5593 13 May, 2014 [facility] [place] [facility] [address] [id number] [place] [address]- 7898 13 May, 2014 [facility] [place] [facility] [address] [id number] [place] [address]- 7985 Mar, [facility] [place] [facility] [address] [id number] [place] [address]- 4137 Mar, [facility] [place] [facility] [address] [id number] [place] [address]- 5319 Mar, [facility] [place] [facility] [address] [id number] [place] [address]- 2324 Mar, [facility] [place] [facility] [address] [id number] [place] [address]- 5825 Mar, [facility] [place] [facility] [address] [id number] [place] [address]- 1901 Mar, [facility] [place] [facility] [address] [id number] [place] [address]- 7731 Mar, [facility] [place] [facility] [address] [id number] [place] [address]- 7688 14 Feb, 2014 [facility] [place] [facility] [address] [id number] [place] [address]- 5430 14 Feb, 2014 [facility] [place] [facility] [address] [id number] [place] [address]- 0552 30 Jan, 2014 [facility] [place] [facility] [address] [id number] [place] [address]- 4703 30 Sep, 2013 [facility] [place] [facility] [address] [id number] [place] [address] 2546 26 Sep, 2013 [facility] [place] [facility] [address] [id number] [place] [address] 2546 26 Sep, 2013 [facility] [place] [facility] [address] [id number] [place] [address] 2546 25 Sep, 2013 [facility] [place] [facility] [address] [id number] [place] [address] 254 25 Sep, 2013 [facility] [place] [facility] [address] [id number] [place] [address]- 8187 25 Sep, 2013 [facility] [place] [facility] [address] [id number] [place] [address]- 9964 25 Sep, 2013 [facility] [place] [facility] [address] [id number] [place] [address]- 6669 18 Sep, 2013 [facility] [place] [facility] [address] [id number], [place] [address]- 8916 18 Sep, 2013 [facility] [place] [facility] [address] [id number], [place] [address]- 6919 06 Sep, 2013 [facility] [place] [facility] [address] [id number] [place] [address]- 5558 06 Sep, 2013 [facility] [place] [facility] [address] [id number], [place] [address] 254 05 Sep, 2013 [facility] [place] [facility] [address] [id number], [place] [address] 2542 05 Sep, 2013 [facility] [place] [facility] [address] [id number], [place] [address] 2546 05 Sep, 2013 [facility] [place] [facility] [address] [id number], [place] [address]- 2546 05 Sep, 2013 [facility] [place] [facility] [address] [id number], [place] [address]- 2546 05 Sep, 2013 [facility] [place] [facility] [address] [id number] [place] [address]- 7885 05 Jan, 2013 [facility] [place] [facility] [address] [id number] [place] [address]- 3042 Dec, [facility] [place] [facility] [address] [id number] [place] [address]- 5831 Dec, [facility] [place] [facility] [address] [id number] [place] [address]- 4536 Dec, 2013 [facility] [place] [facility] [address] [id number] [place] [address]- 1191 Dec, [facility] [place] [facility] [address] [id number] [place] [address]- 3425 Dec, [facility] [place] [facility] [address] [id number] [place] [address]- 7685 Dec, [facility] [place] [facility] [address] [id number] [place] [address]- 5602 Dec, [facility] [place] [facility] [address] [id number] [place] [address]- 6841 Dec, [facility] [place] [facility] [address] [id number] [place] [address]- 0877 Dec, [facility] [place] [facility] [address] [id number] [place] [address]- 8781 Dec, [facility] [place] [facility] [address] [id number] [place] [address]- 9758 Nov, [facility] [place] [facility] [address] [id number] [place] [address]- 9308 Nov, [facility] [place] [facility] [address] [id number] [place] [address]- 4936 Nov, [facility] [place] [facility] [address] [id number] [place] [address]- 5387 Nov, [facility] [place] [facility] [address] [id number] [place] [address]- 5056 Nov, [facility] [place] [facility] [address] [id number] [place] [address]- 3955 Nov, [facility] [place] [facility] [address] [id number] [place] [address]- 1420 Oct, [facility] [place] [facility] [address] [id number] [place] [address]- 2742 Oct, [facility] [place] [facility] [address] [id number] [place] [address]- 1575 Oct, [facility] [place] [facility] [address] [id number] [place] [address]- 2006 Oct, [facility] [place] [facility] [address] [id number] [place] [address]- 8442 Oct, [facility] [place] [facility] [address] [id number] [place] [address]- 6678 Oct, [facility] [place] [facility] [address] [id number] [place] [address]- 0012 Oct, [facility] [place] [facility] [address] [id number] [place] [address]- 4290 Oct, [facility] [place] [facility] [address] [id number] [place] [address]- 2325 Oct, [facility] [place] [facility] [address] [id number] [place] [address]- 3904 Oct, [facility] [place] [facility] [address] [id number] [place] [address]- 0801 Oct, [facility] [place] [facility] [address] [id number] [place] [address]- 9400 Oct, [facility] [place] [facility] [address] [id number] [place] [address]- 0284 September, [facility] [place] [facility] [address] [id number] [place] [address]- 3223 September, [facility] [place] [facility] [address] [id number] [place] [address]- 2696 September, [facility] [place] [facility] [address] [id number] [place] [address]- 5431 Aug, [facility] [place] [facility] [address] [id number] [place] 0630 Aug, [facility] [place] [facility] [address] [id number] [place] [address]- 4378 Jul, [facility] [place] [facility] [address] [id number] [place] [address]- 5222 Jul, [facility] [place] [facility] [address] [id number] [place] [address]- 6050 Jul, [facility] [place] [facility] [address] [id number] [place] [address]- 5163 Jul, [facility] [place] [facility] [address] [facility] [id number] [place] [address]- 0404 Jul, [facility] [place] [facility] [address] [id number] [place] [address]- 2730 Jul, [facility] [place] [facility] [address] [id number] [place] [address]- 6517 Jul, [facility] [place] [facility] [address] [id number] [place] [address]- 2153 Jul, [facility] [place] [facility] [address] [id number] [place] [address]- 7833 Jul, [facility] [place] [facility] [address] [id number] [place] [address]- 8745 Jul, [facility] [place] [facility] [address] [id number] [place] [address]- 3328 Jun, [facility] [place] [facility] [address] [id number] [place] 2894 Jun, [facility] [place] [facility] [address] [id number] [place] [address]- 9082 Jun, [facility] [place] [facility] [address] [id number] [place] [address]- 8935 Jun, [facility] [place] [facility] [address] [id number] [place] [address]- 6433 May, [facility] [place] [facility] [address] [id number] [place] [address]- 8765 May, [facility] [place] [facility] [address] [id number] [place] [address]- 1603 Apr, [facility] [place] [facility] [address] [id number] [place] [address]- 4336 Apr, [facility] [place] [facility] [address] [id number] [place] [address]- 1648 Apr, [facility] [place] [facility] [address] [id number] [place] 1630 Apr, [facility] [place] [facility] [address] [id number] [place] [address]- 6984 Apr, [facility] [place] [facility] [address] [id number] [place] [address]- 4582 Apr, [facility] [place] [facility] [address] [id number] [place] [address] Apr, [facility] [place] [facility] [address] [id number] [place] [address] Apr, [facility] [place] [facility] [address] [id number] [place] [address] Mar, [facility] [place] [facility] [address] [id number] [place] [address] Mar, [facility] [place] [facility] [address] [id number] [place] [address] Mar, [facility] [place] [facility] [address] [id number] [place] [address] Mar, [facility] [place] [facility] [address] [id number] [place] [address] 08 Mar, 2013 [facility] [place] [facility] [address] [id number] [place] [address] 08 Mar, 2013 [facility] [place] [facility] [address] [id number] [place] [address] 30 Feb, 2013 [facility] [place] [facility] [address] [id number] [place] [address] 30 Feb, 2013 [facility] [place] [facility] [address] [id number] [place] [address] Feb, [facility] [place] [facility] [address] [id number] [place] [address] 18 Feb, 2013 [facility] [place] [facility] [address] [id number] [place] [address] Feb, [facility] [place] [facility] [address] [id number] [place] [address] Feb, [facility] [place] [facility] [address] [id number], [place] [address] 04 Feb, 2013 [facility] [place] [facility] [address] [id number] [place] [address] 27 Jan, 2013 [facility] [place] [facility] [address] [id number] [place] [address] 26 Jan, 2013 [facility] [place] [facility] [address] [id number], [place] [address]45 19 Jan, 2013 [facility] [place] [facility] [address] [id number], [place] [address] 05 Jan, 2013 [facility] [place] [facility] [address] [id number] [place] [address] Dec, [facility] [place] [facility] [address] [id number], [place] [address] Dec, [facility] [place] [facility] [address] [id number], [place] [address] Dec, [facility] [place] [facility] [address] [id number] [place] [address] Nov, [facility] [address] [id number] [place] [address] Nov, [facility] [place] [facility] [address] [id number] [place] [address] Nov, [facility] [address] [id number] [place] [address] Nov, [facility] [place] [facility] [address] [id number] [place] [address] Nov, [facility] [address] [id number] [place] [address] Nov, [facility] [address] [id number] [place] [address] Oct, [facility] [address] [id number] [place] [address] Oct, [facility] [address] [id number] [place] [address] Oct, [facility] [place] [facility] [address] [id number] [place] [address] Oct, [facility] [address] [id number] [place] [address] Oct, [facility] [place] [facility] [address] [id number] [place] [address] Oct, [facility] [place] [facility] [address] [id number] [place] [address] September, [facility] [place] [facility] [address] [id number] [place] [address] September, [facility] [place] [facility] [address] [id number] [place] [address] September, [facility] [place] [facility] [address] [id number] [place] [address] September, [facility] [address] [id number] [place] [address] Aug, [facility] [address] [id number] [place] [address] Aug, [facility] [facility] [address] [id number] [place] [address] 28 Jul, 2012 [facility] [address] [id number] [place] [address] Jul, [facility] [address] [id number] [place] [address] 18 Jul, 2012 [facility] [address] [id number] [place] [address] 15 Jul, 2012 [facility] [address] [id number] [place] [address] Jul, [facility] [address] [id number] [place] [address] Jul, [facility] [address] [id number] [place] [address] Jun, [facility] [address] [id number] [place] [address] Jun, [facility] [address] [id number] [place] [address] May, [facility] [address] [id number], [place] [address] May, [facility] [address] [id number] [place] [address] Apr, [facility] [address] [id number] [place] [address] Apr, [facility] [address] [id number] [place] [address] 112[address] Apr, [facility] [address] [id number] [place] [address] 13 Apr, 2012 [facility] [place] [facility] [address] [id number] [place] [address] 6[address] 10 Apr, 2012 [facility] [place] [facility] [address] [id number] [place] [address] 9516 10 Apr, 2012 [facility] [place] [facility] [address] [facility] [id number] [place] [address] 07 Apr, 2012 [facility] [place] [facility] [address] [id number] [place] [address] 07 Apr, 2012 [facility] [place] [facility] [address] [id number] [place] [address] 35[address] Apr, [facility] [place] [facility] [address] [id number] [place] [address] Apr, [facility] [place] [facility] [address] [facility] [id number] [place] [address]- 3560 Apr, [facility] [place] [facility] [address] [id number] [place] [address]- 9[address] Apr, [facility] [place] [facility] [address] [facility] [id number] [place] [address]- 6935 Apr, [facility] [place] [facility] [address] [facility] [id number] [place] [address]- 1316 Apr, [facility] [place] [facility] [address] [facility] [id number] [place] [address]- 1601 Apr, [facility] [place] [facility] [address] [id number] [place] [address]- 7701 Apr, [facility] [place] [facility] [address] [id number] [place] [address] Mar, [facility] [place] [facility] [address] [id number] [place] [address] 466[address] Mar, [facility] [place] [facility] [address] [facility] [id number] [place] [address] 4673 16 Mar, 2012 [facility] [place] [facility] [address] [id number] [place] [address]- 5181 16 Mar, 2012 [facility] [place] [facility] [address] [id number] [place] [address]- 1827 Mar, [facility] [place] [facility] [address] [id number] [place] [address] 2546 Mar, [facility] [place] [facility] [address] [id number] [place] [address] 9663 Mar, [facility] [place] [facility] [address] [id number] [place] [address]- 7189 Mar, [facility] [place] [facility] [address] [id number] [place] [address] 0269 Mar, [facility] [place] [facility] [address] [id number] [place] [address] 6598 Mar, [facility] [place] [facility] [address] [id number] [place] [address] 8[address] Feb, [facility] [place] [facility] [address] [id number] [place] [address] Feb, [facility] [place] [facility] [address] [id number] [place] [address]- 9968 Feb, [facility] [place] [facility] [address] [facility] [id number] [place] [address]- 8507 Feb, [facility] [place] [facility] [address] [id number] [place] [address]- 3486 Feb, [facility] [place] [facility] [address] [id number] [place] [address]- 6094 Feb, [facility] [place] [facility] [address] [id number] [place] [address]- 7686 Jan, [facility] [place] [facility] [address] [id number] [place] [address]- 2546 Dec, [facility] [place] [facility] [address] [id number] [place] [address] 9813 Dec, [facility] [place] [facility] [address] [id number] [place] [address]- 3233 Dec, [facility] [place] [facility] [address] [id number] [place] [address]- 4775 Dec, [facility] [place] [facility] [address] [id number] [place] [address]- 3472 Nov, [facility] [place] [facility] [address] [id number] [place] [address]- 5239 Nov, [facility] [place] [facility] [address] [id number] [place] [address]- 3529 Nov, [facility] [place] [facility] [address] [id number] [place] [address]- 8555 Nov, [facility] [place] [facility] [address] [id number] [place] [address] 0702 Oct, [facility] [place] [facility] [address] [id number] [place] [address] 2116 Oct, [facility] [place] [facility] [address] [id number] [place] [address]- 4285 Oct, [facility] [place] [facility] [address] [id number] [place] [address]- 5313 Oct, [facility] [place] [facility] [address] [id number] [place] [address]- 4672 Oct, [facility] [place] [facility] [address] [id number] [place] [address]- 3526 September, [facility] [place] [facility] [address] [id number] [place] [address]- 0982 September, [facility] [place] [facility] [address] [id number] [place] [address]- 6285 September, [facility] [place] [facility] [address] [id number] [place] [address]- 3418 September, [facility] [place] [facility] [address] [id number] [place] [address]- 0355 16 Sep, 2011 [facility] [address] [id number] [place] [address]- 8243 September, [facility] [address] [id number] [place] [address]- 6052 September, [facility] [address] [id number] [place] [address]- 1654 September, [facility] [address] [id number] [place] [address]- 4104 Aug, [facility] [address] [id number] [place] [address]- 0751 Aug, [facility] [address] [id number] [place] [address]- 4583 Aug, [facility] [address] [id number] [place] [address]- 3460 Aug, [facility] [address] [id number] [place] [address]- 4297 18 Aug, 2011 [facility] [address] [id number] [place] [address]- 3544 17 Aug, 2011 [facility] [address] [id number] [place] [address]- 3272 13 Aug, 2011 [facility] [address] [id number] [place] [address]- 9199 12 Aug, 2011 [facility] [place] [facility] [address] [id number] [place] [address]- 7793 10 Aug, 2011 [facility] [place] [facility] [address] [id number] [place] [address]- 3706 09 Aug, 2011 [facility] [place] [facility] [address] [id number] [place] [address]- 0754 Aug, [facility] [address] [id number] [place] [address]- 1930 Aug, [facility] [address] [id number] [place] [address]- 9136 29 Jul, 2011 [facility] [place] [facility] [address] [id number] [place] [address]- 1066 28 Jul, 2011 [facility] [place] [facility] [address] [id number] [place] [address]- 0656 27 Jul, 2011 [facility] [place] [facility] [address] [id number] [place] [address]- 2333 23 Jul, 2011 [facility] [place] [facility] [address] [id number] [place] [address]- 3456 21 Jul, 2011 [facility] [place] [facility] [address] [id number] [place] [address]- 9618 21 Jul, 2011 [facility] [place] [facility] [address] [id number] [place] [address]- 5299 14 Jul, 2011 [facility] [place] [facility] [address] [id number] [place] [address]- 1753 13 Jul, 2011 [facility] [place] [facility] [address] [id number] [place] [address]- 5680 07 Jul, 2011 [facility] [place] [facility] [address] [id number] [place] [address]- 8849 24 Jun, 2011 [facility] [place] [facility] [address] [id number] [place] [address]- 3328 Jun, [facility] [place] [facility] [address] [id number] [place] [address]- 8715 23 Jun, 2011 [facility] [place] [facility] [address] [id number] [place] [address]- 9533 14 Jun, 2011 [facility] [place] [facility] [address] [id number] [place] [address]- 4006 02 Jun, 2011 [facility] [place] [facility] [address] [id number] [place] [address]- 9396 02 Jun, 2011 [facility] [place] [facility] [address] [id number] [place] [address]- 9773 02 Jun, 2011 [facility] [address] [id number] [place] [address]- 7312 May, [facility] [address] [id number] [place] [address]- 5526 May, [facility] [address] [id number] [place] [address]- 4856 May, [facility] [address] [id number] [place] [address]- 6680 May, [facility] [address] [id number] [place] [address]- 9427 May, [facility] [address] [id number] [place] [address]- 3986 May, [facility] [address] [id number] [place] [address]- 8311 May, [facility] [address] [id number] [place] [address]- 4232 Apr, [facility] [address] [id number] [place] [address]- 0995 Apr, [facility] [address] [id number] [place] [address]- 6489 Apr, [facility] [address] [id number] [place] [address]- 4348 Apr, [facility] [place] [facility] [address] [id number] [place] [address] 2541 Apr, [facility] [place] [facility] [address] [id number] [place] [address]- 8237 Apr, [facility] [place] [facility] [address] [id number] [place] [address]- 5666 13 Apr, 2011 [facility] [address] [id number] [place] [address]- 9463 08 Apr, 2011 [facility] [place] [facility] [address] [id number] [place] [address]- 2586 Apr, [facility] [place] [facility] [address] [id number] [place] [address]- 9093 Mar, [facility] [place] [facility] [address] [id number] [place] [address]- 3831 Mar, [facility] [place] [facility] [address] [id number] [place] [address]- 2779 Mar, [facility] [place] [facility] [address] [id number] [place] [address]- 2841 Mar, [facility] [place] [facility] [address] [id number] [place] [address]- 7960 Mar, [facility] [place] [facility] [address] [id number] [place] [address]- 5244 Feb, [facility] [place] [facility] [address] [id number] [place] [address]- 9854 Feb, [facility] [place] [facility] [address] [id number] [place] [address]- 6809 Feb, [facility] [place] [facility] [address] [id number] [place] [address]- 7554 Dec, [facility] [place] [facility] [address] [id number] [place] [address]- 1596 Nov, [facility] [place] [facility] [address] [id number] [place] [address]- 2834 Apr, [facility] [place] [facility] [address] [id number] [place] [address] Apr, [facility] [place] [facility] [address] [id number] [place] [address]- 4753 16 Apr, 2010 [facility] [place] [facility] [address] [id number] [place] [address]- 5975 13 Apr, 2010 [facility] [place] [facility] [address] [id number] [place] [address]- 9608 Apr, [facility] [address] [id number] [address] 2695 Apr, [facility] [id number], [place] [address]- 8226 Apr, [facility] [id number], [place] [address]- 9420 Apr, [facility] [id number], [place] [address]- 0493 Mar, [facility] [id number], [place] [address]- 9077 Mar, [facility] [id number], [place] [address]- 8517 Mar, [facility] [id number], [place] [address]- 3748 Mar, [facility] [id number], [place] [address]- 0577 Mar, [facility] [id number], [place] [address]- 8184 Mar, [facility] [id number], [place] [address]- 6036 Mar, [facility] [address] [id number], [place] [address]- 0771 Mar, [facility] [address] [id number] [address]- [address]702 Mar, [facility] [address] [id number] [address] 7018 Mar, IMMUNIZATIONS No Known Immunizations SOCIAL HISTORY Never Assessed REASON FOR VISIT Order request PLAN OF CARE VITAL SIGNS MEDICATIONS No [...]
[2017-09-15] MEDS ORDERED: POVIDONE (BETADINE) OPHTH SOLN 5% 30 ML OP ONE (08:15)
[2017-09-15] MEDS ORDERED: TIMOLOL MALEATE 0.5% 5 ML (TIMOPTIC) BTL OU PRN (08:15)
[2017-09-15] MEDS ORDERED: LIDOCAINE PF 1% 2 ML AMP IR PRN (08:15)
[2017-09-15] MEDS ORDERED: EPINEPHrine INJECTION 1 MG/ML AMP INJ ONE (08:15)
[2017-09-15] MEDS ORDERED: VANCOMYCIN/BSS (COMPOUNDED) 10 MG/ML SYR OP ONE (08:15)
[2017-09-15] MEDS: TETRACAINE 0.5% OPHTH SOLN 4 ML BTL (SINGLE DOSE ONLY) OU PRN ×4 (08:21→09:01)
[2017-09-15] MEDS: CYCLOPENTOLATE 1% (CYCLOGYL) 2 ML DROPS OP SCH ×3 (08:43→09:01)
[2017-09-15] MEDS: PHENYLEPHRINE 10% OPHTH (NEO-SYN) 5 ML BTL OU SCH ×3 (08:43→09:01)
[2017-09-15] MEDS ORDERED: MIDAZOLAM 2 MG/2 ML (VERSED) VIAL ONE ×2 (09:15→11:16)
[2017-09-15 10:00] VITALS: BP 158/94
--- NOTE | 2017-09-15 11:49 | Ophthalmologist Pre-Op Note ---
Pre-Operative Progress Note H&P Reviewed The H&P was reviewed, patient examined and no changes noted. Date H&P Reviewed: September 15, 2017 Time H&P Reviewed: 08:45 Pre-Op Dx Cataract, Right Eye SAYRA CONROY MD September 15, 2017 11:49
--- NOTE | 2017-09-15 11:50 | Ophthalmology Operative Report ---
Cataract removal/placement IOL PREOPERATIVE DIAGNOSIS: Cataract Right Eye POSTOPERATIVE DIAGNOSIS: Cataract Right Eye PROCEDURE: Cataract removal and placement of posterior chamber implant, right eye SURGEON: Kishore Conroy ANESTHESIA: Topical with sedation COMPLICATIONS: None ESTIMATED BLOOD LOSS: Minimal DESCRIPTION OF PROCEDURE: After proper informed consent was obtained, the patient, a 67 female, was taken to the Operating Room and the right eye was anesthetized with tetracaine. They right eye was then prepped and draped in the usual manner. A wire lid speculum was placed. A paracentesis was made at the left hand position. Preservative free lidocaine was injected into the anterior chamber followed by viscoelastic. A clear corneal incision was made in the temporal position. A capsulorrhexis was preformed and the central nuclear and cortical material were removed. The posterior capsule was polished and César 21.0 SN6CWS IOL was placed into the capsular bag. The residual viscoelastic was aspirated and balanced saline solution was injected into the anterior chamber. 0.1ml of Vancomycin (10mg/0.1ml ) was injected into the anterior chamber. The wound was checked and found to be water tight. The patient tolerated the procedure well without complications. KISHORE CONROY MD September 15, 2017 11:50
[2017-09-15 11:55] VITALS: BP 178/83
--- NOTE | 2017-09-15 13:01 | Anesthesia-General Post-Op ---
MAC Patient Condition Mental Status/LOC: Same as Preop Cardiovascular: Satisfactory Nausea/Vomiting: Absent Respiratory: Satisfactory Pain: Controlled Complications: Absent Post Op Complications Complications None Follow Up Care/Instructions Patient Instructions None needed. Anesthesiology Discharge Order Discharge Order Patient is doing well, no complaints, no apparent adverse anesthesia problems. BP lower than admission. On my initial interview with the patient, she had word bridger, and her friend that was with her said she wasn't making a lot of sense. Upon inquiring more, the patient has a history of multiple TIA's and was hospitalized in August with a TIA. Dr. Palomo was called with history and vital signs plus her FSBS. Within 10 minutes, the patient started becoming much more coherent and could carry on a normal conversation. Dr. Palomo was updated on the patient's status and it was determined she could go ahead with the cataract surgery. The patient had the surgery with sedation without incident and the BP post procedure was lower than any BP previously. Dr. Palomo was notified again and the patient was allowed to be discharged with orders to follow up tomorrow with a BP check in Dr. Palomo's office. ESA QUEZADA CRNA September 15, 2017 13:01
== END 2017-09-15 11:57 | disposition home or self-care (01) ==
LOC: SDC 07:44
PROVIDERS: ATTEND Specialist
DX: E11.36 Type 2 diabetes mellitus with diabetic cataract (principal); I10 Essential (primary) hypertension; E66.01 Morbid (severe) obesity due to excess calories; Z68.43 Body mass index [BMI] 50.0-59.9, adult; Z79.02 Long term (current) use of antithrombotics/antiplatelets; Z79.4 Long term (current) use of insulin; Z79.82 Long term (current) use of aspirin; Z79.899 Other long term (current) drug therapy; Z95.5 Presence of coronary angioplasty implant and graft
CPT/HCPCS: 82962

== ENCOUNTER 2017-09-28 12:35 | Outpatient (RCR) | payer MEDICARE, MEDICAID ==
[2017-09-07 13:20] LABS: BASOPHILS % (AUTO) 0 % (0-10); EOSINOPHILS # (AUTO) 0.1 10^3/uL (0.0-0.3); EOSINOPHILS % (AUTO) 1 % (0-10); HEMATOCRIT 36 % (35-52); HEMOGLOBIN 11.3 G/DL (11.5-16.0); LYMPHOCYTES # (AUTO) 1.3 X 10^3 (1.0-4.0); LYMPHOCYTES % (AUTO) 19 % (12-44); MEAN CORPUSCULAR HEMOGLOBIN 29 PG (25-34); MEAN CORPUSCULAR HGB CONC 32 G/DL (32-36); MEAN CORPUSCULAR VOLUME 91 FL (80-99); MEAN PLATELET VOLUME 9.6 FL (7.4-10.4); MONOCYTES # (AUTO) 0.7 X 10^3 (0.0-1.0); MONOCYTES % (AUTO) 10 % (0-12); NEUTROPHILS % (AUTO) 70 % (42-75); PLATELET COUNT 241 10^3/uL (130-400); RED BLOOD COUNT 3.93 10^6/uL (4.35-5.85); RED CELL DISTRIBUTION WIDTH 13.9 % (10.0-14.5)
[2017-09-07 13:37] LABS: ALBUMIN 3.4 GM/DL (3.2-4.5); BILIRUBIN,TOTAL 0.3 MG/DL (0.1-1.0); CREATININE SERUM 2.17 MG/DL (0.60-1.30); POTASSIUM 5.2 MMOL/L (3.6-5.0); TOTAL PROTEIN 7.2 GM/DL (6.4-8.2)
[~2017-09-28 12:35] MED LIST changes: +DARBEPOETIN 25 MCG/ML (CANCER CTR) 1 ML VIAL SC SCH; -ROSU20TA30 PO; +ROSU20TA31 PO
[2017-09-28 12:54] LABS: BASOPHILS % (AUTO) 0 % (0-10); EOSINOPHILS # (AUTO) 0.1 10^3/uL (0.0-0.3); EOSINOPHILS % (AUTO) 1 % (0-10); HEMATOCRIT 36 % (35-52); HEMOGLOBIN 11.7 G/DL (11.5-16.0); LYMPHOCYTES # (AUTO) 1.4 X 10^3 (1.0-4.0); LYMPHOCYTES % (AUTO) 19 % (12-44); MEAN CORPUSCULAR HEMOGLOBIN 29 PG (25-34); MEAN CORPUSCULAR HGB CONC 32 G/DL (32-36); MEAN CORPUSCULAR VOLUME 91 FL (80-99); MONOCYTES # (AUTO) 0.8 X 10^3 (0.0-1.0); MONOCYTES % (AUTO) 10 % (0-12); NEUTROPHILS # (AUTO) 5.2 X 10^3 (1.8-7.8); NEUTROPHILS % (AUTO) 70 % (42-75); PLATELET COUNT 237 10^3/uL (130-400); RED BLOOD COUNT 3.97 10^6/uL (4.35-5.85); RED CELL DISTRIBUTION WIDTH 14.1 % (10.0-14.5); WHITE BLOOD COUNT 7.5 10^3/uL (4.3-11.0)
[2017-10-01] MEDS ORDERED: DARB10SY IJ (08:37)
[2017-10-01] MEDS ORDERED: GABA-486 PO (08:37)
[2017-10-01] MEDS ORDERED: FLAX1000 PO (08:37)
[2017-10-01] MEDS ORDERED: LORA10TA44 PO (08:37)
[2017-10-01] MEDS ORDERED: DIPH1TAB PO (08:37)
[2017-10-01] MEDS ORDERED: TORS100T4 PO (08:37)
[2017-10-01] MEDS ORDERED: CALC1TAB94 PO (08:37)
[2017-10-01] MEDS ORDERED: ARGI2000 PO (08:37)
[2017-10-01] MEDS ORDERED: CARB15DR2 OP (08:37)
[2017-10-05] MEDS ORDERED: DOXA2TAB2 PO (10:00)
[2017-10-05] MEDS ORDERED: METO-395 PO (10:00)
[2017-10-05] MEDS ORDERED: LACT20SO2 PO (10:00)
[2017-10-05] MEDS ORDERED: POLY17PO23 PO (10:00)
[2017-10-05] MEDS ORDERED: HYDR-3923 PO (10:00)
[2017-10-05] MEDS ORDERED: ACET-77 PO (10:00)
[2017-10-05] MEDS ORDERED: METR500T21 PO (13:26)
[2017-10-05] MEDS ORDERED: METO-370 PO (13:26)
[2017-10-13] MEDS ORDERED: ACHD5005 PO (09:51)
[2017-10-13] MEDS ORDERED: DOXA2TAB2 PO (09:51)
[2017-10-13] MEDS ORDERED: HYDR-3923 PO (09:51)
[2017-10-13] MEDS ORDERED: METO-395 PO (09:51)
[2017-10-16] MEDS ORDERED: METO-370 PO (09:14)
[2017-10-16] MEDS ORDERED: METR500T21 PO (09:14)
[2017-10-16] MEDS ORDERED: LOSA100T28 PO (09:14)
[2017-11-07] MEDS ORDERED: ASPI-586 PO (09:02)
[2017-11-07] MEDS ORDERED: MAGN250T13 PO (09:04)
[2017-11-07] MEDS ORDERED: CLOP75TA28 PO (09:04)
[2017-11-07] MEDS ORDERED: MULT-974 PO (09:05)
[2017-11-07] MEDS ORDERED: CLON0.3T PO (09:06)
[2017-11-07] MEDS ORDERED: TORS20TA3 PO (09:07)
[2017-11-07] MEDS ORDERED: BRIN8DRO OU (09:08)
[2017-11-07] MEDS ORDERED: HYDR-3923 PO (09:09)
[2017-11-07] MEDS ORDERED: ACET-2422 PO (09:12)
[2017-11-09] MEDS ORDERED: IRON100V2 IV (12:42)
== END 2017-12-06 | disposition home or self-care (01) ==
LOC: ONC 12:35
PROVIDERS: ATTEND Internal Medicine Hematology & Oncology
DX: N18.3 Chronic kidney disease, stage 3 (moderate) (principal); D63.1 Anemia in chronic kidney disease; Z79.899 Other long term (current) drug therapy
CPT/HCPCS: 36591; 80053; 82728; 85025; 99213

== ENCOUNTER 2017-09-30 16:59 | Inpatient (IN) | payer MEDICARE, MEDICAID ==
[~2017-09-30] VITALS: Ht 165.1 cm; Wt 144.5 kg
[2017-09-30] VITALS (20 sets, daily range): BP systolic 128–225; BP diastolic 66–145
[~2017-09-30 16:59] MED LIST changes: -DARBEPOETIN 25 MCG/ML (CANCER CTR) 1 ML VIAL SC SCH; +ROSU20TA30 PO; -ROSU20TA31 PO
--- OUTSIDE RECORDS SUMMARY | 2017-09-30 17:04 | XMS REPORT | Clinical Summary ---
Author Author [facility] Organization [facility] Address Unknown Phone Unavailable Care Team Providers Care Academic Counselor Name Role Phone Tobi Benson MD PCP Source Comments Some departments are not documenting in the electronic medical record. If you do not see the information that you expected, contact Release of Information in the Health Information Management department at [phone] for further assistance in locating additional records.[facility] Allergies Not on File Current Medications Not [...] SCREENING SHINGLES VACCINE 2012 OSTEOPOROSIS SCREENING 2017 PNEUMONIA (PCV13/PPSV23) 2017 VACCINES (1 of 2 - PCV13) INFLUENZA VACCINE 02/05/2018 Results Not on filefrom Last 3 Months
--- OUTSIDE RECORDS SUMMARY | 2017-09-30 17:06 | XMS REPORT ---
Author Author MARY FRAGOSO [facility] Address [address] [place] [address] Care Team Providers Care Diving Board Assembler Name Role Phone MARY FRAGOSO Unavailable PROBLEMS Type Condition ICD9-CM Code SOA64-ER Code Onset Dates Condition Status SNOMED Code Problem Severe sleep apnea G47.30 Active 27873646 Problem Chronic kidney disease, stage 3 (moderate) N18.3 Active 709497323 Problem Decreased diffusion capacity R94.2 Active 30980289 Problem Anemia in other chronic diseases classified elsewhere D63.8 Active 602971939 Problem Stenosis of carotid artery, unspecified laterality I65.29 Active 63740346 Problem Type 2 diabetes mellitus with diabetic polyneuropathy E11.42 Active 735800920 Problem Trochanteric bursitis of left hip M70.62 Active 069031129728444 Problem Diarrhea, unspecified type R19.7 Active 95828295 Problem Anxiety about health F41.8 Active 504795833 Problem Transient cerebral ischemia, unspecified type G45.9 Active 647505065 Problem Aortic valve sclerosis I35.8 Active 08727294 Problem Generalized osteoarthritis M15.9 Active 983872686 Problem Coronary artery disease involving upper [place] coronary artery of upper [place] heart, angina presence unspecified I25.10 Active 2511782021013 Problem Hypoxemia R09.02 Active 977337188 Problem Presence of IVC filter Z95.828 Active 917095366 Problem Port catheter in place Z95.828 Active 509207614 Problem BMI 50.0-59.9, adult Z68.43 Active 342899516 Problem Mixed hyperlipidemia E78.2 Active 556719171 Problem Type 2 diabetes mellitus with hyperglycemia E11.65 Active 14250282 Problem Essential hypertension I10 Active 04914945 Problem Iron deficiency anemia, unspecified iron deficiency anemia type D50.9 Active 40589769 Problem Type 2 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 Active 48596231 Problem Renal osteodystrophy N25.0 Active 47120749 Problem Type 2 diabetes mellitus with foot ulcer E11.621 Active 577812808 Problem 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 Active 6437203 ALLERGIES No Information ENCOUNTERS Encounter Location Date Diagnosis [place] [id number] [place] [address] 32034- 4140 September, [place] [id number] [place] [address] 18538- 5907 Aug, Type 2 diabetes mellitus with foot ulcer E11.621 ; Transient cerebral ischemia, unspecified type G45.9 ; Essential hypertension I10 ; Mixed hyperlipidemia E78.2 and BMI 50.0-59.9, adult Z68.43 [facility] [place] [address] 40869- 8900 17 Aug, 2017 [place] [address] 40245- 8279 14 Jul, 2017 Anxiety about health F41.8 and Mixed hyperlipidemia E78.2 [place] [address] 02740- 7202 13 Jul, 2017 [place] [address] 86414- 6441 12 Jun, 2017 [place] [id number] [place] [address] 01565- 5399 12 Jun, 2017 Type 2 diabetes mellitus with hyperglycemia E11.65 ; Type 2 diabetes mellitus with foot ulcer E11.621 ; Port catheter in place Z95.828 ; 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 ; Contact with and (suspected) exposure to potentially hazardous body fluids Z77.21 and BMI 50.0-59.9, adult Z68.43 [place] [place] [id number] [place] [address] 32219- 5699 May, [place] [id number] [place] [address] 11581- 0803 May, Open wound of right great toe, subsequent encounter S91.101D [facility] [id number] [address] 4812 May, [place] [id number] [place] [address] 36819- 8369 Apr, [place] [id number] [place] [address] 49811- 9339 Apr, [place] [id number] [place] [address] 63299- 3849 Apr, [place] [id number] [place] [address] 00267- 0179 Apr, Type 2 diabetes mellitus with diabetic polyneuropathy E11.42 [place] [id number] [place] [address] 63343- 9024 13 Apr, 2017 Open wound of right great toe, subsequent encounter S91.101D [place] [id number] [place] [address] 59012- 8224 08 Apr, 2017 Open wound of right great toe, subsequent encounter S91.101D ; Breast pain, left N64.4 ; Breast cancer screening Z12.31 ; Type 2 diabetes mellitus with foot ulcer E11.621 ; Essential hypertension I10 and BMI 50.0-59.9, adult Z68.43 [place] [address] [place] [address] 40198- 9800 29 Mar, 2017 Encounter for immunization Z23 [place] [id number] [place] [address] 97221- 8971 Mar, [place] [id number] [place] [address] 64628- 0207 Mar, [place] [id number] [place] [address] 06927- 7295 10 Mar, 2017 Type 2 diabetes mellitus with diabetic polyneuropathy E11.42 ; Type 2 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 ; Type 2 diabetes mellitus with foot ulcer E11.621 ; Essential hypertension I10 ; Hypoxemia R09.02 and Generalized osteoarthritis M15.9 [place] [id number] [place] [address] 54546- 0109 Mar, Chronic kidney disease, stage 3 (moderate) N18.3 ; Acute cystitis without hematuria N30.00 ; Essential hypertension I10 ; Muscle spasms of neck M62.838 ; Type 2 diabetes mellitus with diabetic polyneuropathy E11.42 and BMI 50.0-59.9, adult Z68.43 [facility] [id number] [place] [address] 10282- 2151 Feb, [facility] [id number] [place] [address] 82467 -7802 Feb, [facility] [address] 60619- 3760 Feb, [facility] [id number] [place] [address] 07157- 9425 Feb, [facility] [address] 07432- 6080 Feb, [facility] [id number] [place] [address] 19465- 7495 Feb, [facility] [id number] [place] [address] 95225- 3050 Feb, Mixed hyperlipidemia E78.2 [facility] [id number] [place] [address] 92483- 2099 Feb, [facility] [id number] [place] [address] 91036- 6759 Jan, [facility] [id number] [place] [address] 98790- 3680 Jan, Generalized osteoarthritis M15.9 [facility] [id number] [place] [address] 47412- 9181 Oct, [facility] [id number] [place] [address] 03990- 3502 Jul, [facility] [address] [place] [address]- 3688 13 Jul, 2016 [place] [id number] [place] [address] 80067- 1001 Jul, Type 2 diabetes mellitus with hyperglycemia E11.65 ; Chronic kidney disease, stage 3 (moderate) N18.3 ; Type 2 diabetes mellitus with foot ulcer E11.621 ; Type 2 diabetes mellitus with diabetic polyneuropathy E11.42 ; Generalized osteoarthritis M15.9 ; Trochanteric bursitis of left hip M70.62 and Tinea pedis of both feet B35.3 [place] [id number] [place] [address] 19830- 8697 13 Jun, 2016 [place] [address] 41465- 1524 Apr, [place] [address] 22949- 5243 Apr, [place] [address] 21646- 4862 Mar, [place] [id number] [place] [address] 41286- 2681 Feb, Encounter for immunization Z23 [place] [id number] [place] [address] 88989- 2443 Feb, [place] [id number] [place] [address] 26544- 9648 Feb, Type 2 diabetes mellitus with hyperglycemia E11.65 ; Encounter for immunization Z23 ; Diarrhea, unspecified type R19.7 ; Essential hypertension I10 ; Mixed hyperlipidemia E78.2 ; Hypoxia R09.02 ; 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 and Type 2 diabetes mellitus with foot ulcer E11.621 [place] [id number] [place] [address] 42689- 0722 Jan, [place] [address] 74551- 1500 Jan, Type 2 diabetes mellitus with hyperglycemia E11.65 and Pneumonia due to infectious organism, unspecified laterality, unspecified part of lung J18.9 [facility] [id number] [place] [address] 79839- 0566 Jan, [facility] [id number] [place] [address] 22889- 8244 16 Jan, 2016 [facility] [id number] [place] [address] 59534- 7919 Oct, Type 2 diabetes mellitus with hyperglycemia E11.65 ; Generalized osteoarthritis M15.9 and Chronic prescription opiate use Z79.891 [facility] [id number] [place] [address] 57174- 9501 September, [facility] [id number] [place] [address] 54796- 8717 Aug, [facility] [id number] [place] [address] 98692- 1839 Aug, [facility] [id number] [place] [address] 29655- 6526 Aug, [facility] [id number] [place] [address] 80547- 6800 Aug, [facility] [id number] [place] [address] 50154- 5854 Jun, [facility] [id number] [place] [address] 15823- 6855 Jun, Type 2 diabetes mellitus with hyperglycemia E11.65 ; Mixed hyperlipidemia E78.2 ; Vaginal itching L29.8 ; Neck muscle spasm M62.838 and Skin abrasion T14.8 [facility] [id number] [place] [address] 20779- 1109 Apr, [facility] [id number] [place] [address] 46944- 3429 Apr, [facility] [id number] [place] [address] 55825- 7594 Mar, [facility] [id number] [place] [address] 92758- 5529 Feb, [facility] [id number] [place] [address] 52720- 4840 Feb, Type 2 diabetes mellitus with hyperglycemia E11.65 ; Type 2 diabetes mellitus with foot ulcer E11.621 ; Type 2 diabetes mellitus with diabetic polyneuropathy E11.42 and Encounter for immunization Z23 [facility] [id number] [place] [address] 71429- 3863 Jan, Hypertension 401.9 ; Uncontrolled type 2 diabetes mellitus 250.02 ; Right shoulder pain 719.41 and Ulcer of heel and midfoot 707.14 [facility] [id number] [place] [address] 54163- 0505 Dec, Diabetes with other specified manifestations, type II or unspecified type, not stated as uncontrolled 250.80 ; Ulcer of heel and midfoot 707.14 ; Hypertension 401.9 ; Hip pain, left 719.45 and Acute anxiety 300.00 [facility] [id number] [place] [address] 39658- 7670 Nov, [facility] [id number] [place] [address] 36466- 4092 Nov, [facility] [id number] [place] [address] 58103- 5506 September, Anxiety attack 300.01 and Cellulitis 682.9 [facility] [id number] [place] [address] 49123- 8498 September, [facility] [id number] [place] [address] 53150- 7103 September, [facility] [id number] [place] [address] 32378- 1991 September, [facility] [id number] [place] [address] 66006- 8670 Aug, [facility] [place] [facility] [address] [id number] [place] [address]- 8417 13 Aug, 2014 [facility] [place] [facility] [address] [id number] [place] [address]- 7917 13 Jul, 2014 [facility] [place] [facility] [address] [id number] [place] [address]- 6380 13 Jul, 2014 [facility] [place] [facility] [address] [id number] [place] [address]- 3109 05 Jul, 2014 [facility] [place] [facility] [address] [id number] [place] [address]- 7121 13 May, 2014 [facility] [place] [facility] [address] [id number] [place] [address]- 9193 13 May, 2014 [facility] [place] [facility] [address] [id number] [place] [address]- 7453 Mar, [facility] [place] [facility] [address] [id number] [place] [address]- 9903 Mar, [facility] [place] [facility] [address] [id number] [place] [address]- 1624 Mar, [facility] [place] [facility] [address] [id number] [place] [address]- 2054 Mar, [facility] [place] [facility] [address] [id number] [place] [address]- 8496 Mar, [facility] [place] [facility] [address] [id number] [place] [address]- 0339 Mar, [facility] [place] [facility] [address] [id number] [place] [address]- 4641 Mar, [facility] [place] [facility] [address] [id number] [place] [address]- 4279 14 Feb, 2014 [facility] [place] [facility] [address] [id number] [place] [address]- 1397 14 Feb, 2014 [facility] [place] [facility] [address] [id number] [place] [address]- 1368 30 Sep, 2013 [facility] [place] [facility] [address] [id number] [place] [address] 2546 30 Sep, 2013 [facility] [place] [facility] [address] [id number] [place] [address] 2546 26 Sep, 2013 [facility] [place] [facility] [address] [id number] [place] [address] 2546 26 Sep, 2013 [facility] [place] [facility] [address] [id number] [place] [address] 2540 25 Sep, 2013 [facility] [place] [facility] [address] [id number] [place] [address]- 9229 25 Sep, 2013 [facility] [place] [facility] [address] [id number] [place] [address]- 3632 25 Sep, 2013 [facility] [place] [facility] [address] [id number] [place] [address]- 7533 25 Sep, 2013 [facility] [place] [facility] [address] [id number] [address]- 5731 18 Sep, 2013 [facility] [place] [facility] [address] [id number], [place] [address] 2543 18 Sep, 2013 [facility] [place] [facility] [address] [id number] [place] [address]- 6973 06 Sep, 2013 [facility] [place] [facility] [address] [id number] [address]- 2547 06 Sep, 2013 [facility] [place] [facility] [address] [id number] [address] 2546 05 Sep, 2013 [facility] [place] [facility] [address] [id number] [address] 2546 05 Sep, 2013 [facility] [place] [facility] [address] [id number] [address] 2546 05 Sep, 2013 [facility] [place] [facility] [address] [id number], [place] [address] 2546 05 Sep, 2013 [facility] [place] [facility] [address] [id number] [place] [address]- 1481 05 Jan, 2013 [facility] [place] [facility] [address] [id number] [place] [address]- 2073 05 Jan, 2013 [facility] [place] [facility] [address] [id number] [place] [address]- 3274 Dec, [facility] [place] [facility] [address] [id number] [place] [address]- 4736 Dec, 2013 [facility] [place] [facility] [address] [id number] [place] [address]- 8318 Dec, [facility] [place] [facility] [address] [id number] [place] [address]- 3346 Dec, [facility] [place] [facility] [address] [id number] [place] [address]- 0442 Dec, [facility] [place] [facility] [address] [id number] [place] [address]- 6559 Dec, [facility] [place] [facility] [address] [id number] [place] [address]- 0778 Dec, [facility] [place] [facility] [address] [id number] [place] [address]- 2138 Dec, [facility] [place] [facility] [address] [id number] [place] [address]- 3629 Dec, [facility] [place] [facility] [address] [id number] [place] [address]- 7562 Dec, [facility] [place] [facility] [address] [id number] [place] [address]- 4537 Nov, [facility] [place] [facility] [address] [id number] [place] [address]- 4942 Nov, [facility] [place] [facility] [address] [id number] [place] [address]- 6085 Nov, [facility] [place] [facility] [address] [id number] [place] [address]- 7315 Nov, [facility] [place] [facility] [address] [id number] [place] [address]- 4149 Nov, [facility] [place] [facility] [address] [id number] [place] [address]- 8482 Nov, [facility] [place] [facility] [address] [id number] [place] [address]- 0182 Oct, [facility] [place] [facility] [address] [id number] [place] [address]- 2101 Oct, [facility] [place] [facility] [address] [id number] [place] [address]- 8207 Oct, [facility] [place] [facility] [address] [id number] [place] [address]- 8689 Oct, [facility] [place] [facility] [address] [id number] [place] [address]- 1875 Oct, [facility] [place] [facility] [address] [id number] [place] [address]- 7751 Oct, [facility] [place] [facility] [address] [id number] [place] [address]- 8082 Oct, [facility] [place] [facility] [address] [id number] [place] [address]- 2628 Oct, [facility] [place] [facility] [address] [id number] [place] [address]- 6332 Oct, [facility] [place] [facility] [address] [id number] [place] [address]- 0476 Oct, [facility] [place] [facility] [address] [id number] [place] [address]- 7135 Oct, [facility] [place] [facility] [address] [id number] [place] [address]- 5236 Oct, [facility] [place] [facility] [address] [id number] [place] [address]- 6245 September, [facility] [place] [facility] [address] [id number] [place] [address]- 2030 September, [facility] [place] [facility] [address] [id number] [place] [address]- 9743 September, [facility] [place] [facility] [address] [id number] [place] [address]- 7054 Aug, [facility] [place] [facility] [address] [id number] [place] [address]- 2595 Aug, [facility] [place] [facility] [address] [id number] [place] [address]- 7538 Jul, [facility] [place] [facility] [address] [id number] [place] [address]- 7007 Jul, [facility] [place] [facility] [address] [id number] [place] [address]- 9301 Jul, [facility] [place] [facility] [address] [id number] [place] [address]- 8459 Jul, [facility] [place] [facility] [address] [id number] [place] [address]- 0233 Jul, [facility] [place] [facility] [address] [id number] [place] [address]- 0538 Jul, [facility] [place] [facility] [address] [id number] [place] [address]- 3807 Jul, [facility] [place] [facility] [address] [id number] [place] [address]- 8135 Jul, [facility] [place] [facility] [address] [id number] [place] [address]- 7770 Jul, [facility] [place] [facility] [address] [id number] [place] 3560 Jul, [facility] [place] [facility] [address] [id number] [place] [address]- 1885 Jun, [facility] [place] [facility] [address] [id number] [place] [address]- 1295 Jun, [facility] [place] [facility] [address] [id number] [place] [address]- 4845 Jun, [facility] [address] [id number] [place] [address]- 3196 Jun, [facility] [place] [facility] [address] [id number] [place] [address]- 5896 May, [facility] [place] [facility] [address] [id number] [place] [address]- 6064 May, [facility] [place] [facility] [address] [id number] [place] [address]- 8737 Apr, [facility] [place] [facility] [address] [id number] [place] [address]- 1816 Apr, [facility] [place] [facility] [address] [id number] [place] 3830 Apr, [facility] [place] [facility] [address] [id number] [place] [address]- 4811 Apr, [facility] [address] [id number] [place] [address]- 6156 Apr, [facility] [place] [facility] [address] [id number] [place] [address]- 2545 Apr, [facility] [place] [facility] [address] [id number] [place] [address]- 6887 Apr, [facility] [place] [facility] [address] [id number] [place] [address]- 2548 Apr, [facility] [place] [facility] [address] [id number] [place] [address]- 0344 Mar, [facility] [place] [facility] [address] [id number] [place] [address]- 2546 Mar, [facility] [place] [facility] [address] [id number] [place] [address]- 2546 Mar, [facility] [place] [facility] [address] [id number] [place] [address]- 7354 Mar, [facility] [place] [facility] [address] [id number] [place] [address]- 5794 08 Mar, 2013 [facility] [place] [facility] [address] [id number] [place] [address]- 8809 08 Mar, 2013 [facility] [place] [facility] [address] [id number] [place] [address]- 6176 30 Feb, 2013 [facility] [place] [facility] [address] [id number] [place] [address] 30 Feb, 2013 [facility] [place] [facility] [address] [id number] [place] [address] Feb, [facility] [place] [facility] [address] [id number] [place] [address] Feb, [facility] [place] [facility] [address] [id number] [place] [address] 14 Feb, 2013 [facility] [place] [facility] [address] [id number][place] [address] 14 Feb, 2013 [facility] [place] [facility] [address] [id number] [place] [address] 04 Feb, 2013 [facility] [place] [facility] [address] [id number] [place] [address] 27 Jan, 2013 [facility] [place] [facility] [address] [id number][place] [address] 26 Jan, 2013 [facility] [place] [facility] [address] [id number], [place] [address] 19 Jan, 2013 [facility] [place] [facility] [address] [id number] [place] [address] 05 Jan, 2013 [facility] [place] [facility] [address] [id number], [place] [address] 16 Dec, 2012 [facility] [place] [facility] [address] [id number][place] [address] Dec, [facility] [place] [facility] [address] [id number] [place] [address] Dec, [facility] [address] [id number] [place] [address] Nov, [facility] [place] [facility] [address] [id number] [place] [address] Nov, [facility] [place] [facility] [address] [id number] [place] [address] Nov, [facility] [place] [facility] [address] [id number] [place] [address] Nov, [facility] [place] [facility] [address] [id number] [place] [address] Nov, [facility] [place] [facility] [address] [id number] [place] [address] Nov, [facility] [address] [id number] [place] [address] Oct, [facility] [place] [facility] [address] [id number] [place] [address] Oct, [facility] [place] [facility] [address] [id number] [place] [address] Oct, [facility] [place] [facility] [address] [id number] [place] [address]31 Oct, [facility] [place] [facility] [address] [id number] [place] [address] Oct, [facility] [place] [facility] [address] [id number] [place] [address] Oct, [facility] [place] [facility] [address] [id number] [place] [address] September, [facility] [place] [facility] [address] [id number] [place] [id number] [address] September, [facility] [place] [facility] [address] [id number] [place] [address] September, [facility] [address] [id number] [place] [address] September, [facility] [address] [id number] [place] [address] Aug, [facility] [address] [id number] [place] [address] Aug, [facility] [address] [id number] [place] [address] 28 Jul, 2012 [facility] [address] [id number] [place] [address] Jul, [facility] [address] [id number] [place] [address] Jul, [facility] [address] [id number] [place] [address] Jul, [facility] [address] [id number] [place] [address] Jul, [facility] [address] [id number] [place] [address] Jul, [facility] [address] [id number] [place] [address] 1993 Jun, [facility] [address] [id number] [place] [address] Jun, [facility] [address] [id number] [address] May, [facility] [address] [id number] [place] [address] May, [facility] [address] [id number] [place] [address] 60[address] Apr, [facility] [address] [id number] [place] [address] 1986 Apr, [facility] [address] [id number] [place] [address] 7843 13 Apr, 2012 [facility] [address] [id number] [place] [address] 12[address] 13 Apr, 2012 [facility] [place] [facility] [address] [id number] [place] [address] 10 Apr, 2012 [facility] [place] [facility] [address] [facility] [id number] [place] [address] 10 Apr, 2012 [facility] [place] [facility] [address] [id number] [place] [address]- 40[address] 07 Apr, 2012 [facility] [place] [facility] [address] [id number] [place] [address]- 4[address] Apr, [facility] [place] [facility] [address] [id number] [place] [address] 1759 Apr, [facility] [place] [facility] [address] [facility] [id number] [place] [address]- [address]65 Apr, [facility] [place] [facility] [address] [id number] [place] [address] 9[address] Apr, [facility] [place] [facility] [address] [facility] [id number] [place] [address] 3280 Apr, [facility] [place] [facility] [address] [facility] [id number] [place] [address] 8794 Apr, [facility] [place] [facility] [address] [facility] [id number] [place] [address] 27[address] Apr, [facility] [place] [facility] [address] [id number] [place] [address]- 5186 Apr, [facility] [place] [facility] [address] [id number] [place] [address] 3299 Apr, [facility] [place] [facility] [address] [facility] [id number] [place] [address] 3983 Mar, [facility] [place] [facility] [address] [facility] [id number] [place] [address]- 7[address] Mar, [facility] [place] [facility] [address] [id number] [place] [address] 4646 Mar, [facility] [place] [facility] [address] [id number] [place] [address] 2000 Mar, [facility] [place] [facility] [address] [id number] [place] [address] 78[address] Mar, [facility] [place] [facility] [address] [id number] [place] [address] 0708 Mar, [facility] [place] [facility] [address] [id number] [place] [address]- 7689 Mar, [facility] [place] [facility] [address] [id number] [place] [address] 8487 Mar, [facility] [place] [facility] [address] [facility] [id number] [place] [address]- 5[address] Mar, [facility] [place] [facility] [address] [id number] [place] [address] 1432 Mar, [facility] [place] [facility] [address] [id number] [place] [address] 2566 Feb, [facility] [place] [facility] [address] [id number] [place] [address] 3189 Feb, [facility] [place] [facility] [address] [facility] [id number] [place] [address] Feb, [facility] [place] [facility] [address] [id number] [place] [address] 04[address] Feb, [facility] [place] [facility] [address] [id number] [place] [address] 7926 Feb, [facility] [place] [facility] [address] [id number] [place] [address]- 7086 Feb, [facility] [place] [facility] [address] [facility] [id number] [place] [address] Jan, [facility] [place] [facility] [address] [id number] [place] [address] 9307 Dec, [facility] [place] [facility] [address] [id number] [place] [address] 3569 Dec, [facility] [place] [facility] [address] [id number] [place] [address]- 63[address] Dec, [facility] [place] [facility] [address] [id number] [place] [address] 6228 Dec, [facility] [place] [facility] [address] [id number] [place] [address] 5[address] Nov, [facility] [place] [facility] [address] [id number] [place] [address]- 3604 Nov, [facility] [place] [facility] [address] [id number] [place] [address]- 5594 Nov, [facility] [place] [facility] [address] [id number] [place] [address]- 1398 Nov, [facility] [place] [facility] [address] [id number] [place] [address]- 7165 Oct, [facility] [place] [facility] [address] [id number] [place] [address]- 5121 Oct, [facility] [place] [facility] [address] [id number] [place] [address]- 4605 Oct, [facility] [place] [facility] [address] [id number] [place] [address]- 5365 Oct, [facility] [place] [facility] [address] [id number] [place] [address]- 6751 Oct, [facility] [place] [facility] [address] [id number] [place] [address] 0401 September, [facility] [place] [facility] [address] [id number] [place] [address] 8542 September, [facility] [place] [facility] [address] [id number] [place] [address] 8534 September, [facility] [place] [facility] [address] [id number] [place] [address]- 9969 September, [facility] [address] [id number] [place] [address]- 5891 September, [facility] [address] [id number] [place] [address]- 8097 September, [facility] [address] [id number] [place] [address]- 3977 September, [facility] [address] [id number] [place] [address]- 0020 September, [facility] [address] [id number] [place] [address]- 0456 Aug, [facility] [address] [id number] [place] [address]- 2644 Aug, [facility] [address] [id number] [place] [address]- 1245 Aug, [facility] [address] [id number] [place] [address]- 4109 Aug, [facility] [address] [id number] [place] [address]- 0733 18 Aug, 2011 [facility] [address] [id number] [place] [address]- 0283 17 Aug, 2011 [facility] [address] [id number] [place] [address]- 0251 13 Aug, 2011 [facility] [place] [facility] [address] [id number] [place] [address]- 9113 12 Aug, 2011 [facility] [place] [facility] [address] [id number] [place] [address]- 9123 10 Aug, 2011 [facility] [place] [facility] [address] [id number] [place] [address]- 0518 09 Aug, 2011 [facility] [address] [id number] [place] [address]- 0134 02 Aug, 2011 [facility] [place] [facility] [address] [id number] [place] [address]- 9184 02 Aug, 2011 [facility] [place] [facility] [address] [id number] [place] [address]- 8063 29 Jul, 2011 [facility] [place] [facility] [address] [id number] [place] [address]- 8438 28 Jul, 2011 [facility] [place] [facility] [address] [id number] [place] [address]- 8566 27 Jul, 2011 [facility] [place] [facility] [address] [id number] [place] [address]- 4921 23 Jul, 2011 [facility] [place] [facility] [address] [id number] [place] [address]- 2642 21 Jul, 2011 [facility] [place] [facility] [address] [id number] [place] [address]- 7519 Jul, [facility] [place] [facility] [address] [id number] [place] [address]- 1365 14 Jul, 2011 [facility] [place] [facility] [address] [id number] [place] [address]- 0100 13 Jul, 2011 [facility] [place] [facility] [address] [id number] [place] [address]- 6649 07 Jul, 2011 [facility] [place] [facility] [address] [id number] [place] [address]- 5799 24 Jun, 2011 [facility] [place] [facility] [address] [id number] [place] [address]- 9290 Jun, [facility] [place] [facility] [address] [id number] [place] [address]- 9234 23 Jun, 2011 [facility] [place] [facility] [address] [id number] [place] [address]- 8938 14 Jun, 2011 [facility] [place] [facility] [address] [id number] [place] [address]- 1816 02 Jun, 2011 [facility] [place] [facility] [address] [id number] [place] [address]- 7811 02 Jun, 2011 [facility] [address] [id number] [place] [address]- 0258 Jun, [facility] [address] [id number] [place] [address]- 2496 May, [facility] [address] [id number] [place] [address]- 8076 May, [facility] [address] [id number] [place] [address]- 4296 May, [facility] [address] [id number] [place] [address]- 1663 May, [facility] [address] [id number] [place] [address]- 2249 May, [facility] [address] [facility] [id number] [place] [address]- 9137 May, [facility] [address] [id number] [place] [address]- 2087 May, [facility] [address] [id number] [place] [address]- 6562 Apr, [facility] [address] [facility] [id number] [place] [address]- 6961 Apr, [facility] [address] [id number] [place] [address]- 2485 Apr, [facility] [address] [id number] [place] [address] 2545 Apr, [facility] [address] [id number] [place] [address]- 4932 Apr, [facility] [place] [facility] [address] [id number] [place] [address]- 8446 Apr, [facility] [address] [facility] [id number] [place] [address]- 2193 13 Apr, 2011 [facility] [place] [facility] [address] [id number] [place] [address]- 4890 Apr, [facility] [place] [facility] [address] [id number] [place] [address]- 9422 Apr, [facility] [place] [facility] [address] [id number] [place] [address]- 1154 Mar, [facility] [place] [facility] [address] [id number] [place] [address]- 7399 Mar, [facility] [place] [facility] [address] [id number] [place] [address]- 9732 Mar, [facility] [place] [facility] [address] [id number] [place] [address]- 1837 Mar, [facility] [place] [facility] [address] [id number] [place] Mar, [facility] [place] [facility] [address] [id number] [place] [address]- 9257 Feb, [facility] [place] [facility] [address] [id number] [place] [address]- 9957 Feb, [facility] [place] [facility] [address] [id number] [place] [address]- 2732 Feb, [facility] [place] [facility] [address] [id number] [place] [address]- 1185 Dec, [facility] [place] [facility] [address] [id number] [place] [address]- 6558 Nov, [facility] [place] [facility] [address] [id number] [place] [address] Apr, [facility] [place] [facility] [address] [id number] [place] [address]- 8739 Apr, [facility] [place] [facility] [address] [id number] [place] [address]- 0151 16 Apr, 2010 [facility] [place] [facility] [address] [id number] [place] [address]- 9772 13 Apr, 2010 [facility] [address] [address] Apr, [facility] [address] [facility] [id number] [address] Apr, [facility] [address] [address]- 7859 Apr, [facility] [address] [facility] [id number], [place] [address]- 8963 Apr, [facility] [address] [address]- 5445 Mar, [facility] [id number] [place] [address]- 7123 Mar, [facility] [id number] [place] [address]- 0416 Mar, [facility] [address] [address]- 9030 Mar, [facility] [address] [address]- 5117 Mar, [facility] [address] [place] [address]- 2636 Mar, [facility] [address] [address]- 4845 Mar, [facility] [address], [place] [address]- 1569 Mar, [facility] [address] [place] [address]- 0683 Mar, [facility] [address] [address]- 5329 Mar, IMMUNIZATIONS No Known Immunizations SOCIAL HISTORY Never Assessed REASON FOR VISIT Refill request PLAN OF CARE VITAL SIGNS MEDICATIONS Medication Instructions Dosage Frequency Start Date End Date Duration Status Valium 5 MG Orally PRN 1 tablet as needed 30 before procedure, can repeat dose if needed. Do not drive after taking. 20 Sep, 2014 Active RESULTS No Results PROCEDURES No [...]
--- OUTSIDE RECORDS SUMMARY | 2017-09-30 17:09 | XMS REPORT ---
Author Author MARY FRAGOSO [facility] Address [address] [place] [address] Care Team Providers Care Aluminum Sheet Cutter Name Role Phone MARY FRAGOSO Unavailable PROBLEMS Type Condition ICD9-CM Code DCX04-BX Code Onset Dates Condition Status SNOMED Code Problem Severe sleep apnea G47.30 Active 16814940 Problem Chronic kidney disease, stage 3 (moderate) N18.3 Active 167708468 Problem Decreased diffusion capacity R94.2 Active 56952098 Problem Anemia in other chronic diseases classified elsewhere D63.8 Active 670695816 Problem Stenosis of carotid artery, unspecified laterality I65.29 Active 41616168 Problem Type 2 diabetes mellitus with diabetic polyneuropathy E11.42 Active 099318674 Problem Trochanteric bursitis of left hip M70.62 Active [id number] Problem Diarrhea, unspecified type R19.7 Active 93218237 Problem Anxiety about health F41.8 Active 088993835 Problem Transient cerebral ischemia, unspecified type G45.9 Active 619596759 Problem Aortic valve sclerosis I35.8 Active 48484657 Problem Generalized osteoarthritis M15.9 Active 259731101 Problem Coronary artery disease involving [place] coronary artery of [place] heart, angina presence unspecified I25.10 Active 9484327081923 Problem Hypoxemia R09.02 Active 085983251 Problem Presence of IVC filter Z95.828 Active 166239129 Problem Port catheter in place Z95.828 Active 135261936 Problem BMI 50.0-59.9, adult Z68.43 Active 433098114 Problem Mixed hyperlipidemia E78.2 Active 100324383 Problem Type 2 diabetes mellitus with hyperglycemia E11.65 Active 37254787 Problem Essential hypertension I10 Active 68715487 Problem Iron deficiency anemia, unspecified iron deficiency anemia type D50.9 Active 19911299 Problem Type 2 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 Active 51854281 Problem Renal osteodystrophy N25.0 Active 58169338 Problem Type 2 diabetes mellitus with foot ulcer E11.621 Active 663965238 Problem 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 Active 0868221 ALLERGIES Substance Reaction Event Type Date Status Triple Antibiotic Unknown Drug Allergy Mar, Active Penicillin V Potassium Unknown Drug Allergy Mar, Active Flonase bloody nose Drug Allergy Mar, Active Amoxicillin Unknown Drug Allergy Mar, Active ENCOUNTERS Encounter Location Date Diagnosis [facility] [id number] [place] [address] 23448 -2317 September, BMI 50.0-59.9, adult Z68.43 [facility] [place] [id number] [place] [address] 27810- 5558 September, [facility] [place] [id number] [place] [address] 41803- 1725 September, [facility] [place] [id number] [place] [address] 92974- 4084 24 Aug, 2017 Type 2 diabetes mellitus with foot ulcer E11.621 ; Transient cerebral ischemia, unspecified type G45.9 ; Essential hypertension I10 ; Mixed hyperlipidemia E78.2 and BMI 50.0-59.9, adult Z68.43 [facility] [place] [id number] [place] [address] 26675- 0527 17 Aug, 2017 [facility] [place] [id number] [place] [address] 98206- 1425 14 Jul, 2017 Anxiety about health F41.8 and Mixed hyperlipidemia E78.2 [facility] [place] [id number] [place] [address] 32246- 7522 13 Jul, 2017 [facility] [place] [id number] [place] [address] 70299- 5029 Jun, [facility] [place] [id number] [place] [address] 89709- 1469 12 Jun, 2017 Type 2 diabetes mellitus with hyperglycemia E11.65 ; Type 2 diabetes mellitus with foot ulcer E11.621 ; Port catheter in place Z95.828 ; 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 ; Contact with and (suspected) exposure to potentially hazardous body fluids Z77.21 and BMI 50.0-59.9, adult Z68.43 [place] [facility] [id number] [place] [address] 95211- 4768 May, [facility] [place] [id number] [place] [address] 89101- 1342 May, Open wound of right great toe, subsequent encounter S91.101D [place] [id number] [place] [address] 63378- 3922 May, [place] [address] 56886- 3212 Apr, [place] [id number] [place] [address] 90984- 4798 Apr, [place] [address] 76835- 2249 Apr, [facility] [id number] [place] [address] 78514- 0763 14 Apr, 2017 Type 2 diabetes mellitus with diabetic polyneuropathy E11.42 [place] [id number] [place] [address] 83688- 3234 13 Apr, 2017 Open wound of right great toe, subsequent encounter S91.101D [place] [id number] [place] [address] 69751- 7929 08 Apr, 2017 Open wound of right great toe, subsequent encounter S91.101D ; Breast pain, left N64.4 ; Breast cancer screening Z12.31 ; Type 2 diabetes mellitus with foot ulcer E11.621 ; Essential hypertension I10 and BMI 50.0-59.9, adult Z68.43 [place] [id number] [place] [address] 23277- 7486 Mar, Encounter for immunization Z23 [place] [id number] [place] [address] 95049- 7974 Mar, [facility] [place] [id number] [place] [address] 92348- 3111 Mar, [facility] [place] [id number] [place] [address] 88670- 5169 Mar, Type 2 diabetes mellitus with diabetic polyneuropathy E11.42 ; Type 2 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 ; Type 2 diabetes mellitus with foot ulcer E11.621 ; Essential hypertension I10 ; Hypoxemia R09.02 and Generalized osteoarthritis M15.9 [facility] [place] [id number] [place] [address] 76722- 1603 Mar, Chronic kidney disease, stage 3 (moderate) N18.3 ; Acute cystitis without hematuria N30.00 ; Essential hypertension I10 ; Muscle spasms of neck M62.838 ; Type 2 diabetes mellitus with diabetic polyneuropathy E11.42 and BMI 50.0-59.9, adult Z68.43 [place] [id number] [place] [address] 27958- 0998 Feb, [facility] [id number] [place] [address] 90065 -4973 Feb, [facility] [place] [id number] [place] [address] 59193- 7665 Feb, [facility] [place] [id number] [place] [address] 63187- 5272 Feb, [facility] [place] [id number] [place] [address] 60597- 6829 Feb, [facility] [place] [id number] [place] [address] 47450- 6451 Feb, [facility] [place] [address] 49807- 7715 Feb, Mixed hyperlipidemia E78.2 [facility] [place] [id number] [place] [address] 11490- 4386 Feb, [facility] [place] [id number] [place] [address] 58479- 1835 Jan, [facility] [place] [address] [address] 3657 Jan, Generalized osteoarthritis M15.9 [facility] [place] [id number] [place] [address] 926572- 7084 Oct, [facility] [place] [id number] [place] [address] 25793- 4613 Jul, [facility] [place] [id number] [place] [address] 63377- 9541 Jul, [facility] [place] [id number] [place] [address] 04217- 4699 Jul, Type 2 diabetes mellitus with hyperglycemia E11.65 ; Chronic kidney disease, stage 3 (moderate) N18.3 ; Type 2 diabetes mellitus with foot ulcer E11.621 ; Type 2 diabetes mellitus with diabetic polyneuropathy E11.42 ; Generalized osteoarthritis M15.9 ; Trochanteric bursitis of left hip M70.62 and Tinea pedis of both feet B35.3 [place] [id number] [place] [address] 37950- 4961 Jun, [facility] [place] [id number] [place] [address] 90917- 6387 Apr, [facility] [place] [id number] [place] [address] 06154- 1780 Apr, [facility] [place] [id number] [place] [address] 64500- 1010 Mar, [facility] [place] [address] [place] [address] 30501- 5312 Feb, Encounter for immunization Z23 [facility] [place] [id number] [place] [address] 40649- 0417 Feb, [facility] [place] [address] [place] [address] 50205- 5601 Feb, Type 2 diabetes mellitus with hyperglycemia E11.65 ; Encounter for immunization Z23 ; Diarrhea, unspecified type R19.7 ; Essential hypertension I10 ; Mixed hyperlipidemia E78.2 ; Hypoxia R09.02 ; 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 and Type 2 diabetes mellitus with foot ulcer E11.621 [facility] [place] [id number] [place] [address] 69170- 6527 Jan, [facility] [place] [address] 73558- 4482 Jan, Type 2 diabetes mellitus with hyperglycemia E11.65 and Pneumonia due to infectious organism, unspecified laterality, unspecified part of lung J18.9 [facility] [place] [id number] [place] [address] 95058- 7544 Jan, [facility] [place] [id number] [place] [address] 54636- 2832 Jan, [facility] [place] [address] 51362- 1418 Oct, Type 2 diabetes mellitus with hyperglycemia E11.65 ; Generalized osteoarthritis M15.9 and Chronic prescription opiate use Z79.891 [facility] [place] [id number] [place] [address] 66318- 8812 September, [facility] [place] [id number] [place] [address] 41820- 9639 Aug, [facility] [place] [id number] [place] [address] 85204- 5731 Aug, [facility] [place] [id number] [place] [address] 36376- 7923 Aug, [facility] [place] [id number] [place] [address] 42467- 4802 Aug, [facility] [place] [id number] [place] [address] 31125- 9220 Jun, [facility] [place] [id number] [place] [address] 32326- 9924 Jun, Type 2 diabetes mellitus with hyperglycemia E11.65 ; Mixed hyperlipidemia E78.2 ; Vaginal itching L29.8 ; Neck muscle spasm M62.838 and Skin abrasion T14.8 [place] [id number] [place] [address] 35476- 2705 15 Apr, 2015 [place] [address] 71375- 6654 Apr, [place] [address] 79280- 6858 Mar, [place] [address] 11660- 7059 Feb, [place] [address] 23214- 3062 Feb, Type 2 diabetes mellitus with hyperglycemia E11.65 ; Type 2 diabetes mellitus with foot ulcer E11.621 ; Type 2 diabetes mellitus with diabetic polyneuropathy E11.42 and Encounter for immunization Z23 [place] [id number] [place] [address] 27247- 6902 Jan, Hypertension 401.9 ; Uncontrolled type 2 diabetes mellitus 250.02 ; Right shoulder pain 719.41 and Ulcer of heel and midfoot 707.14 [place] [id number] [place] [address] 65946- 0263 Dec, Diabetes with other specified manifestations, type II or unspecified type, not stated as uncontrolled 250.80 ; Ulcer of heel and midfoot 707.14 ; Hypertension 401.9 ; Hip pain, left 719.45 and Acute anxiety 300.00 [place] [id number] [place] [address] 71699- 1232 Nov, [place] [address] 53059- 5536 Nov, [place] [id number] [place] [address] 90353- 5210 September, Anxiety attack 300.01 and Cellulitis 682.9 [place] [address] [id number] [place] [address]- 8022 September, [facility] [place] [facility] [address] [id number] [place] [address]- 7468 September, [facility] [place] [facility] [address] [id number] [place] [address]- 1066 September, [facility] [place] [facility] [address] [id number] [place] [address]- 8348 Aug, [facility] [place] [facility] [address] [id number] [place] [address]- 5326 Aug, [facility] [place] [facility] [address] [id number] [place] [address]- 0861 Jul, [facility] [place] [facility] [address] [id number] [place] [address]- 1618 Jul, [facility] [place] [facility] [address] [id number] [place] [address]- 2916 Jul, [facility] [place] [facility] [address] [id number] [place] [address]- 4414 May, [facility] [place] [facility] [address] [id number] [place] [address]- 3520 May, [facility] [place] [facility] [address] [id number] [place] [address]- 1305 Mar, [facility] [place] [facility] [address] [id number] [place] [address]- 5592 Mar, [facility] [place] [facility] [address] [id number] [place] [address]- 7596 Mar, [facility] [place] [facility] [address] [id number] [place] [address]- 6485 Mar, [facility] [place] [facility] [address] [id number] [place] [address]- 6046 Mar, [facility] [place] [facility] [address] [id number] [place] [address]- 5444 07 Mar, 2014 [facility] [place] [facility] [address] [id number] [place] [address]- 8442 07 Mar, 2014 [facility] [place] [facility] [address] [id number] [place] [address]- 4674 14 Feb, 2014 [facility] [place] [facility] [address] [id number] [place] [address]- 4429 14 Feb, 2014 [facility] [place] [facility] [address] [id number] [place] [address]- 7263 30 Jan, 2013 [facility] [place] [facility] [address] [id number] [place] [address]- 3677 30 Jan, 2013 [facility] [place] [facility] [address] [id number] [place] [address]- 4011 26 Jan, 2013 [facility] [place] [facility] [address] [id number] [place] [address]- 1076 26 Jan, 2013 [facility] [place] [facility] [address] [id number] [place] [address]- 5113 25 Jan, 2013 [facility] [place] [facility] [address] [id number] [place] [address]- 9980 25 Jan, 2013 [facility] [place] [facility] [address] [id number] [place] [address]- 8018 25 Jan, 2013 [facility] [place] [facility] [address] [id number], [place] [address]- 9506 25 Jan, 2013 [facility] [place] [facility] [address] [id number], [place] [address]- 1900 18 Sep, 2013 [facility] [place] [facility] [address] [id number] [place] [address]- 9290 18 Sep, 2013 [facility] [place] [facility] [address] [id number], [place] [address]- 2558 06 Sep, 2013 [facility] [place] [facility] [address] [id number] [place] [address]- 4343 06 Sep, 2013 [facility] [place] [facility] [address] [id number] [place] [address]- 8345 05 Sep, 2013 [facility] [place] [facility] [address] [id number] [place] [address]- 2635 05 Sep, 2013 [facility] [place] [facility] [address] [id number] [place] [address]- 7916 Sep, 2013 [facility] [place] [facility] [address] [id number] [place] [address]- 8334 Sep, 2013 [facility] [place] [facility] [address] [id number] [place] [address]- 9154 Sep, 2013 [facility] [place] [facility] [address] [id number] [place] [address]- 0501 Jan, 2013 [facility] [place] [facility] [address] [id number] [place] [address]- 1540 Dec, 2013 [facility] [place] [facility] [address] [id number] [place] [address]- 5986 Dec, 2013 [facility] [place] [facility] [address] [id number] [place] [address]- 9276 Dec, 2013 [facility] [place] [facility] [address] [id number] [place] [address]- 5051 Dec, 2013 [facility] [place] [facility] [address] [id number] [place] [address]- 6939 Dec, 2013 [facility] [place] [facility] [address] [id number] [place] [address]- 0111 Dec, 2013 [facility] [place] [facility] [address] [id number] [place] [address]- 6450 Dec, 2013 [facility] [place] [facility] [address] [id number] [place] [address]- 1344 Dec, [facility] [place] [facility] [address] [id number] [place] [address]- 6699 Dec, [facility] [place] [facility] [address] [id number] [place] [address]- 3067 Dec, [facility] [place] [facility] [address] [id number] [place] [address]- 0058 Nov, 2013 [facility] [place] [facility] [address] [id number] [place] [address]- 4248 Nov, [facility] [place] [facility] [address] [id number] [place] [address]- 5447 Nov, [facility] [place] [facility] [address] [id number] [place] [address]- 4841 Nov, [facility] [place] [facility] [address] [id number] [place] [address]- 0077 Nov, [facility] [place] [facility] [address] [id number] [place] [address]- 6358 Nov, [facility] [place] [facility] [address] [id number] [place] [address]- 9004 Oct, [facility] [place] [facility] [address] [id number] [place] [address]- 3095 Oct, [facility] [place] [facility] [address] [id number] [place] [address]- 1859 Oct, [facility] [place] [facility] [address] [id number] [place] [address]- 8246 Oct, [facility] [place] [facility] [address] [id number] [place] [address]- 9906 Oct, [facility] [place] [facility] [address] [id number] [place] [address]- 1744 Oct, [facility] [place] [facility] [address] [id number] [place] [address]- 0564 Oct, [facility] [place] [facility] [address] [id number] [place] [address]- 6544 Oct, [facility] [place] [facility] [address] [id number] [place] [address]- 0638 Oct, [facility] [place] [facility] [address] [id number] [place] [address]- 5106 Oct, [facility] [place] [facility] [address] [id number] [place] [address]- 1039 Oct, [facility] [place] [facility] [address] [id number] [place] [address]- 2974 Oct, [facility] [place] [facility] [address] [id number] [place] [address]- 7895 September, [facility] [place] [facility] [address] [id number] [place] [address]- 3646 September, [facility] [place] [facility] [address] [id number] [place] [address]- 0552 September, [facility] [place] [facility] [address] [id number] [place] [address]- 7408 Aug, [facility] [place] [facility] [address] [id number] [place] [address]- 4575 Aug, [facility] [place] [facility] [address] [id number] [place] [address]- 7441 Jul, [facility] [place] [facility] [address] [id number] [place] [address]- 2415 Jul, [facility] [place] [facility] [address] [id number] [place] [address]- 2221 Jul, [facility] [place] [facility] [address] [id number] [place] [address]- 4981 Jul, [facility] [place] [facility] [address] [id number] [place] [address]- 3546 Jul, [facility] [place] [facility] [address] [id number] [place] [address]- 9149 Jul, [facility] [place] [facility] [address] [id number] [place] [address]- 0942 Jul, [facility] [place] [facility] [address] [id number] [place] [address]- 5583 Jul, [facility] [place] [facility] [address] [id number] [place] [address]- 2546 Jul, [facility] [place] [facility] [address] [id number] [place] [address]- 0396 Jul, [facility] [place] [facility] [address] [id number] [place] [address] Jun, [facility] [place] [facility] [address] [id number] [place] [address] Jun, [facility] [place] [facility] [address] [id number] [place] [address] Jun, [facility] [place] [facility] [address] [id number] [place] [address] Jun, [facility] [place] [facility] [address] [id number] [place] [address] May, [facility] [place] [facility] [address] [id number] [place] [address] May, [facility] [place] [facility] [address] [id number] [place] [address] Apr, [facility] [place] [facility] [address] [id number] [place] [address] Apr, [facility] [place] [facility] [address] [facility] [id number] [place] [address] Apr, [facility] [place] [facility] [address] [id number] [place] [address] Apr, [facility] [place] [facility] [address] [id number] [place] [address] Apr, [facility] [place] [facility] [address] [id number] [place] [address] Apr, [facility] [place] [facility] [address] [id number] [place] [address] Apr, [facility] [place] [facility] [address] [id number] [place] [address] Apr, [facility] [place] [facility] [address] [id number] [place] [address] Mar, [facility] [place] [facility] [address] [id number] [place] [address] Mar, [facility] [place] [facility] [address] [id number] [place] [address] Mar, [facility] [place] [facility] [address] [id number] [place] [address] Mar, [facility] [place] [facility] [address] [id number] [place] [address] Mar, [facility] [place] [facility] [address] [id number] [place] [address] Mar, [facility] [place] [facility] [address] [id number] [place] [address] Feb, [facility] [place] [facility] [address] [id number], [place] [address] Feb, [facility] [place] [facility] [address] [id number] [place] [address] Feb, [facility] [place] [facility] [address] [id number], [place] [address] Feb, [facility] [place] [facility] [address] [id number], [place] [address] Feb, [facility] [place] [facility] [address] [id number], [place] [address] 14 Feb, 2013 [facility] [place] [facility] [address] [id number] [place] [address] Feb, [facility] [place] [facility] [address] [id number], [place] [address] Jan, [facility] [place] [facility] [address] [id number], [place] [address] Jan, [facility] [place] [facility] [address] [id number] [place] [address] Jan, [facility] [address] [id number] [place] [address] Jan, [facility] [place] [facility] [address] [id number] [place] [address] Dec, [facility] [place] [facility] [address] [id number] [place] [address] Dec, [facility] [place] [facility] [address] [id number] [place] [address] Dec, [facility] [place] [facility] [address] [id number] [place] [address] Nov, [facility] [place] [facility] [address] [id number] [place] [address] Nov, [facility] [address] [id number] [place] [address] Nov, [facility] [place] [facility] [address] [id number] [place] [address] Nov, [facility] [place] [facility] [address] [id number] [place] [address] Nov, [facility] [place] [facility] [address] [id number] [place] [address] Nov, [facility] [place] [facility] [address] [id number] [place] [address] Oct, [facility] [place] [facility] [address] [id number] [place] [address] Oct, [facility] [place] [facility] [address] [id number] [place] [address] Oct, [facility] [place] [facility] [address] [id number] [place] [address] Oct, [facility] [place] [facility] [address] [id number] [place] [address] Oct, [facility] [place] [facility] [address] [id number] [place] [address] Oct, [facility] [address] [id number] [place] [address] September, [facility] [address] [id number] [place] [address] September, [facility] [address] [id number] [place] [address] September, [facility] [address] [id number] [place] [address] 4[address] September, [facility] [address] [id number] [place] [address] Aug, [facility] [address] [id number] [place] [address] 4[address] Aug, [facility] [address] [id number] [place] [address] Jul, [facility] [address] [id number] [place] [address] 46[address] Jul, [facility] [address] [id number] [place] [address] 1686 18 Jul, 2012 [facility] [address] [id number] [place] [address] 49[address] Jul, [facility] [place] [facility] [address] [id number] [place] [address] 47[address] Jul, [facility] [place] [facility] [address] [id number] [place] [address] 9644 08 Jul, 2012 [facility] [place] [facility] [address] [id number] [place] [address] 3271 20 Jun, 2012 [facility] [place] [facility] [address] [id number] [place] [address] 5214 Jun, [facility] [place] [facility] [address] [id number] [place] [address] 8259 17 May, 2012 [facility] [address] [id number] [place] [address] 1716 May, [facility] [place] [facility] [address] [id number] [place] [address] 7856 18 Apr, 2012 [facility] [place] [facility] [address] [id number] [place] [address]- 9036 18 Apr, 2012 [facility] [place] [facility] [address] [id number] [place] [address] 1986 13 Apr, 2012 [facility] [place] [facility] [address] [id number] [place] [address]- 9183 13 Apr, 2012 [facility] [place] [facility] [address] [id number] [place] [address] 0016 10 Apr, 2012 [facility] [address] [id number] [place] [address] 2897 Apr, [facility] [place] [facility] [address] [id number] [place] [address] 4264 07 Apr, 2012 [facility] [place] [facility] [address] [id number] [place] [address] 1874 Apr, [facility] [place] [facility] [address] [id number] [place] [address] 3602 07 Apr, 2012 [facility] [place] [facility] [address] [id number] [place] [address]- 0260 07 Apr, 2012 [facility] [place] [facility] [address] [id number] [place] [address]- 8426 Apr, [facility] [place] [facility] [address] [id number] [place] [address]- 9075 Apr, [facility] [place] [facility] [address] [id number] [place] [address]- 7980 05 Apr, 2012 [facility] [place] [facility] [address] [id number] [place] [address]- 8818 05 Apr, 2012 [facility] [place] [facility] [address] [id number] [place] [address] 2140 Apr, [facility] [place] [facility] [address] [id number] [place] [address]- 5474 Apr, [facility] [place] [facility] [address] [id number] [place] [address] 3859 Mar, [facility] [place] [facility] [address] [id number] [place] [address] 1391 Mar, [facility] [place] [facility] [address] [id number] [place] [address]- 7511 Mar, [facility] [place] [facility] [address] [id number] [place] [address] 8712 Mar, [facility] [place] [facility] [address] [facility] [id number] [place] [address] 8736 Mar, [facility] [place] [facility] [address] [id number] [place] [address]- 1489 Mar, [facility] [place] [facility] [address] [id number] [place] [address]- 8169 Mar, [facility] [place] [facility] [address] [id number] [place] [address]- 5558 Mar, [facility] [place] [facility] [address] [facility] [id number] [place] [address]- 0392 Mar, [facility] [place] [facility] [address] [id number] [place] [address]- 9028 Mar, [facility] [place] [facility] [address] [id number] [place] [address]- 3207 Feb, [facility] [place] [facility] [address] [id number] [place] [address]- 9135 Feb, [facility] [place] [facility] [address] [facility] [id number] [place] [address]- 4031 Feb, [facility] [place] [facility] [address] [id number] [place] [address] 9579 Feb, [facility] [place] [facility] [address] [id number] [place] [address]- 0452 Feb, [facility] [place] [facility] [address] [id number] [place] [address]- 1501 Feb, [facility] [place] [facility] [address] [id number] [place] [address]- 2055 Jan, [facility] [place] [facility] [address] [id number] [place] [address]- 6723 Dec, [facility] [place] [facility] [address] [id number] [place] [address]- 3691 Dec, [facility] [place] [facility] [address] [id number] [place] [address]- 0856 Dec, [facility] [place] [facility] [address] [id number] [place] [address]- 0310 Dec, [facility] [place] [facility] [address] [id number] [place] [address] 4039 Nov, [facility] [place] [facility] [address] [id number] [place] [address]- 6483 Nov, [facility] [place] [facility] [address] [id number] [place] [address]- 1127 Nov, [facility] [place] [facility] [address] [id number] [place] [address]- 4385 Nov, [facility] [place] [facility] [address] [id number] [place] [address] 6957 Oct, [facility] [place] [facility] [address] [id number] [place] [address]- 3593 Oct, [facility] [place] [facility] [address] [id number] [place] [address]- 2505 Oct, [facility] [place] [facility] [address] [id number] [place] [address]- 1407 Oct, [facility] [place] [facility] [address] [id number] [place] [address]- 2959 Oct, [facility] [address] [id number] [place] [address]- 9715 September, [facility] [address] [id number] [place] [address]- 7074 September, [facility] [address] [id number] [place] [address]- 0266 September, [facility] [address] [id number] [place] [address]- 0024 September, [facility] [address] [id number] [place] [address]- 0103 September, [facility] [address] [id number] [place] [address]- 3951 September, [facility] [address] [id number] [place] [address]- 4876 September, [facility] [address] [id number] [place] [address]- 1339 September, [facility] [address] [id number] [place] [address]- 1008 Aug, [facility] [address] [id number] [place] [address]- 6691 Aug, [facility] [address] [id number] [place] [address]- 5049 Aug, [facility] [place] [facility] [address] [id number] [place] [address]- 3137 Aug, [facility] [place] [facility] [address] [id number] [place] [address]- 9368 18 Aug, 2011 [facility] [place] [facility] [address] [id number] [place] [address]- 3708 17 Aug, 2011 [facility] [address] [id number] [place] [address]- 0587 13 Aug, 2011 [facility] [place] [facility] [address] [id number] [place] [address]- 8297 12 Aug, 2011 [facility] [place] [facility] [address] [id number] [place] [address]- 2122 10 Aug, 2011 [facility] [place] [facility] [address] [id number] [place] [address]- 4896 09 Aug, 2011 [facility] [place] [facility] [address] [id number] [place] [address]- 8556 Aug, [facility] [place] [facility] [address] [id number] [place] [address]- 6971 Aug, [facility] [place] [facility] [address] [id number] [place] [address]- 7967 29 Jul, 2011 [facility] [place] [facility] [address] [id number] [place] [address]- 1686 28 Jul, 2011 [facility] [place] [facility] [address] [id number] [place] [address]- 5934 27 Jul, 2011 [facility] [place] [facility] [address] [id number] [place] [address]- 4792 23 Jul, 2011 [facility] [place] [facility] [address] [id number] [place] [address]- 6509 21 Jul, 2011 [facility] [place] [facility] [address] [id number] [place] [address]- 0197 21 Jul, 2011 [facility] [place] [facility] [address] [id number] [place] [address]- 7470 14 Jul, 2011 [facility] [place] [facility] [address] [id number] [place] [address]- 1564 13 Jul, 2011 [facility] [place] [facility] [address] [id number] [place] [address]- 0369 07 Jul, 2011 [facility] [place] [facility] [address] [id number] [place] [address]- 3161 24 Jun, 2011 [facility] [place] [facility] [address] [id number] [place] [address]- 4570 Jun, [facility] [address] [id number] [place] [address]- 7512 Jun, [facility] [address] [id number] [place] [address]- 9746 Jun, [facility] [address] [id number] [place] [address] 2546 Jun, [facility] [address] [id number] [place] [address]- 0460 Jun, [facility] [address] [id number] [place] [address]- 8646 Jun, [facility] [address] [id number] [place] [address]- 5276 May, [facility] [address] [id number] [place] [address]- 8634 May, [facility] [address] [id number] [place] [address]- 6203 May, [facility] [address] [id number] [place] [address]- 9464 May, [facility] [address] [facility] [id number] [place] [address]- 4644 May, [facility] [address] [id number] [place] [address]- 7958 May, [facility] [address] [id number] [place] [address]- 3266 May, [facility] [place] [facility] [address] [id number] [place] [address]- 2573 Apr, [facility] [place] [facility] [address] [id number] [place] [address]- 9526 Apr, [facility] [place] [facility] [address] [id number] [place] [address]- 1356 Apr, [facility] [place] [facility] [address] [id number] [place] [address]- 2030 Apr, [facility] [place] [facility] [address] [id number] [place] [address]- 2146 Apr, [facility] [place] [facility] [address] [id number] [place] [address] 2546 Apr, [facility] [place] [facility] [address] [id number] [place] [address]- 4266 Apr, [facility] [place] [facility] [address] [id number] [place] [address]- 7223 Apr, [facility] [place] [facility] [address] [id number] [place] [address]- 8308 Apr, [facility] [place] [facility] [address] [id number] [place] [address]- 9813 Mar, [facility] [place] [facility] [address] [id number] [place] [address]- 7816 Mar, [facility] [place] [facility] [address] [id number] [place] [address]- 2160 Mar, [facility] [place] [facility] [address] [id number] [place] [address]- 4208 Mar, [facility] [place] [facility] [address] [id number] [place] [address]- 1501 Mar, [facility] [place] [facility] [address] [id number] [place] [address]- 2025 Feb, [facility] [place] [facility] [address] [id number] [place] [address]- 8849 Feb, [facility] [place] [facility] [address] [id number] [place] [address]- 6656 Feb, [facility] [place] [facility] [address] [id number] [place] [address] 2546 Dec, [facility] [place] [facility] [address] [id number] [place] [address]- 4853 Nov, [facility] [address] [id number] [place] [address]- 1536 Apr, [facility] [place] [facility] [address] [id number] [place] [address]- 2536 Apr, [facility] [place] [facility] [address] [id number] [place] [address] 16 Apr, 2010 [facility] [place] [facility] [address] [id number] [place] [address]- 4412 13 Apr, 2010 [facility] [place] [facility] [address] [id number] [place] [address]- 2155 Apr, [facility] [place] [facility] [address] [id number] [place] [address]- 9830 Apr, [facility] [place] [facility] [address] [id number] [place] [address]- 0317 Apr, [facility] [place] [facility] [address] [id number] [place] [address]- 8150 Apr, [facility] [place] [facility] [address] [id number] [place] [address]- 1078 Mar, [facility] [place] [facility] [address] [id number] [place] [address]- 3779 Mar, [facility] [place] [facility] [address] [id number], [place] [address]- 2066 Mar, [facility] [place] [facility] [address] [id number], [place] [address]- 5625 Mar, [facility] [place] [facility] [address] [id number] [place] [address]- 7426 Mar, [facility] [place] [facility] [address] [id number], [place] [address]- 2153 Mar, [facility] [place] [facility] [address] [id number], [place] [address]- 4944 15 Mar, 2010 [facility] [place] [facility] [address] [facility] [id number] [place] [address]- 0458 Mar, [facility] [place] [address] [facility] [id number] [place] [address]- 5325 Mar, [facility] [place] [address] [facility] [id number] [place] [address]- 4950 Mar, IMMUNIZATIONS No Known Immunizations SOCIAL HISTORY Never Assessed REASON FOR VISIT Via [facility] follow up/Multiple Complaints -- louis hyatt PLAN OF CARE Activity Details Follow Up as scheduled Reason: VITAL SIGNS Height 66 in 2017-03-09 Weight 315 lbs 2017-03-09 Temperature 97.6 degrees Fahrenheit 2017-03-09 Heart Rate 68 bpm 2017-03-09 Respiratory Rate 24 2017-03-09 BMI 50.84 kg/m2 2017-03-09 Blood pressure systolic 150 mmHg 2017-03-09 Blood pressure diastolic 70 mmHg 2017-03-09 MEDICATIONS Medication Instructions Dosage Frequency Start Date End Date Duration Status Metoprolol Tartrate 25 MG Orally Twice a day 1 tablet 12h 30 days Active Simbrinza 1-0.2 % Ophthalmic Three times a day 1 drop into affected eye 8h Active Vitamin D3 5000 UNIT Orally Once a day 24h Active Multivitamin Adult - Active Aspirin 81 mg take 1 tablet (81 mg) by oral route once daily September, Active Arginine 1000 MG Orally 3 times a day 2 tablets 8h Active Lomotil 2.5-0.025 MG Orally Four times a day 1 tablet as needed 6h Active Plavix 75 MG TAKE ONE TABLET BY MOUTH DAILY 30 Active Fish Oil 1000 MG Orally 3 times a day 1 capsule 8h Active NovoLog Flexpen 100 unit/mL 18 units by Subcutaneous route 3 times per day Jul, Active Nitroglycerin 0.[address] 1 tablet (0.4 mg) by sublingual route at the 1st sign of attack; may repeat every 5 min until relief; if pain persists after 3 tablets in 15 min, prompt medical attention is recommendedPRN Mar, Active Calcium Carbonate-Vitamin D3 600-400 MG-UNIT Orally 3 times a day 8h Active Rosuvastatin Calcium 20 mg Orally Once a day 1 tablet 24h Apr, 90 days Active Flaxseed Oil 1000 MG Active Magnesium Oxide 250 MG Orally Once a day 1 tablet 24h Active Neurontin 100 mg Orally 3 times a day 1 capsule 8h 30 Active Alavert 10 mg take 1 tablet (10 mg) by oral route once daily September, Active Levemir Flexpen 100 UNIT/ML INJECT 20 UNITS SUBCUTANEOUSLY TWICE DAILY 37 Active RESULTS No Results PROCEDURES Procedure Date Ordered Result Body Site URINALYSIS, AUTO, W/O SCOPE Mar 09, 2017 [facility] VISIT ESTABLISHED PATIENT Mar 09, 2017 [facility] Mar 09, 2017 INSTRUCTIONS MEDICATIONS ADMINISTERED No Known Medications MEDICAL [...]
[2017-09-30] MEDS ORDERED: niCARdipine 25 MG/10 ML (CARDENE) AMP IV ONE ×2 (17:23→18:06)
[2017-09-30 17:26] LABS: BASOPHILS % (AUTO) 0 % (0-10); EOSINOPHILS % (AUTO) 0 % (0-10); HEMATOCRIT 38 % (35-52); HEMOGLOBIN 12.2 G/DL (11.5-16.0); LYMPHOCYTES # (AUTO) 0.9 X 10^3 (1.0-4.0); LYMPHOCYTES % (AUTO) 12 % (12-44); MEAN CORPUSCULAR HEMOGLOBIN 29 PG (25-34); MEAN CORPUSCULAR HGB CONC 32 G/DL (32-36); MEAN CORPUSCULAR VOLUME 90 FL (80-99); MEAN PLATELET VOLUME 10.2 FL (7.4-10.4); MONOCYTES # (AUTO) 0.6 X 10^3 (0.0-1.0); MONOCYTES % (AUTO) 7 % (0-12); NEUTROPHILS # (AUTO) 6.5 X 10^3 (1.8-7.8); NEUTROPHILS % (AUTO) 81 % (42-75); PLATELET COUNT 235 10^3/uL (130-400); RED BLOOD COUNT 4.23 10^6/uL (4.35-5.85); RED CELL DISTRIBUTION WIDTH 14.1 % (10.0-14.5)
[2017-09-30] MEDS ORDERED: LABETALOL HCL 20 MG/4 ML VIAL IV ONE ×2 (17:30→18:15)
[2017-09-30] MEDS ORDERED: NS (IVPB) 250 ML ONE (17:30)
--- NOTE | 2017-09-30 17:30 | Diagnostic Imaging Report ---
INDICATION: Altered mental status. EXAMINATION: Images through the head were obtained without contrast. FINDINGS: The ventricles are normal in size, shape and position. There are age-related senescent changes present. There is no acute parenchymal hemorrhage, edema or mass. There is no extra-axial mass or hemorrhage. IMPRESSION: No acute abnormality is seen with no change from 08/18/2017. Dictated by: Dictated on workstation # [id number]
[2017-09-30 17:50] LABS: PROTHROMBIN TIME PATIENT 13.4 SEC (12.2-14.7)
[2017-09-30 17:52] LABS: ALANINE AMINOTRANSFERASE 20 U/L (0-55); ALBUMIN 3.7 GM/DL (3.2-4.5); ALKALINE PHOSPHATASE 77 U/L (40-136); BILIRUBIN,TOTAL 0.3 MG/DL (0.1-1.0); BUN/CREATININE RATIO 24; CALCIUM 9.7 MG/DL (8.5-10.1); CARBON DIOXIDE 21 MMOL/L (21-32); CHLORIDE 107 MMOL/L (98-107); CREATININE SERUM 2.32 MG/DL (0.60-1.30); GFR ESTIMATED 21; POTASSIUM 5.4 MMOL/L (3.6-5.0); SODIUM 137 MMOL/L (135-145); TOTAL PROTEIN 7.6 GM/DL (6.4-8.2)
--- NOTE | 2017-09-30 17:53 | ED Neurological Problem ---
General Chief Complaint: Neuro-Stroke Like Symptoms Stated Complaint: FALL Nursing Triage Note: Patient was found down outside, patient brought in by EMS, Patient with slurred speech and not following commands. Patient found to be incontinent of bowel. Nursing Sepsis Screen: No Definite Risk Source: patient, EMS, old records Exam Limitations: clinical condition (YOHAN NO MD) History of Present Illness Date Seen by Provider: September 30, 2017 Time Seen by Provider: 17:01 Initial Comments 17:01 - This 67-year-old woman presented to the emergency room via EMS after being found leaning against her porch not responding appropriately. There was no known injury identified by EMS. Patient did not appear to be in distress. She was alert but apparently had expressive and receptive aphasia. She does not follow most commands. She does attempt to speak but speech is garbled. She is noted to be markedly hypertensive upon arrival. Review of chart notes was admitted a month ago with confusion and hypertensive urgency. Last known well time is unknown. Stroke activation was paged and patient was taken directly to CT scan. Patient is afebrile. She is presently receiving home health care for diabetic foot ulcers. Fingerstick blood sugar was in the 300s. (YOHAN NO MD) Initial Comments 180: Discussed the case with Dr. Lovell, assume care of the patient and met with the patient. She is not able to give any history as she is confused. Her brother Mohan was not present at the time she was found but he is here in the room today and give some history that in August she had a similar episode of high blood pressure and confusion. (ELMA CHEUNG) Allergies and Home Medications Allergies Coded Allergies: Bacitracin Zinc (Unverified Allergy, Unknown, 07/11/17) Penicillins (Unverified Allergy, Unknown, HAS RECEIVED ROCEPHIN DURING PREVIOUS ADMIT, 07/11/17) bacitracin (Unverified Allergy, Unknown, 07/11/17) colistimethate sodium (Unverified Allergy, Unknown, 07/11/17) gramicidin D (Unverified Allergy, Unknown, 07/11/17) neomycin sulfate (Unverified Allergy, Unknown, 07/11/17) polymyxin B (Unverified Allergy, Unknown, 07/11/17) polymyxin B sulfate (Unverified Allergy, Unknown, 07/11/17) pramoxine HCl (Unverified Allergy, Unknown, 07/11/17) Home Medications Aspirin 81 Mg Tablet.dr, 81 MG PO HS, (Reported) Biotin 1,000 Mcg Tablet, 1,000 MCG PO HS, (Reported) Brinzolamide/Brimonidine Tart 8 Ml Drops.susp, 1 DROPS OU BID, (Reported) Calcium Carbonate/Vitamin D3 1 Each Tablet, 1 TAB PO TID, (Reported) Cholecalciferol (Vitamin D3) 5,000 Unit Capsule, 5,000 UNITS PO HS, (Reported) Clopidogrel Bisulfate 75 Mg Tablet, 75 MG PO HS, (Reported) Cranberry Conc/C/Bacill Coag 1 Each Tablet, 1 TAB PO DAILY, (Reported) Hydrocodone Bit/Acetaminophen 1 Tab Tab, 1-2 TAB PO 4-6HR PRN for PAIN Prescribed by: DARLENE KILPATRICK on 07/12/17 1140 Insulin Aspart 300 Units/3 Ml Solution, 9 UNITS SC AC, (Reported) Insulin Detemir 100 Unit/1 Ml Insuln.pen, 20 UNITS SC BID, (Reported) Losartan Potassium 100 Mg Tablet, 100 MG PO HS, (Reported) Magnesium Oxide 250 Mg Tablet, 250 MG PO HS, (Reported) Metoprolol Succinate 50 Mg Tab.er.24h, 50 MG PO DAILY Prescribed by: MARY FRAGOSO on 08/21/17 1023 Metronidazole 500 Mg Tablet, 500 MG PO TID, (Reported) Multivitamin 1 Each Tablet, 1 TAB PO HS, (Reported) [place]-3/Dha/Epa/Fish Oil 1 Each Capsule, 1,000 MG PO TID, (Reported) Rosuvastatin Calcium 20 Mg Tablet, 20 MG PO HS, (Reported) Turmeric Root Extract 538 Mg Capsule, 1-2 CAP PO TID PRN for BACK PAIN, ( Reported) Vitamin B Complex & Vit C No.4 150 Mg Tablet, 150 MG PO HS, (Reported) Patient Home Medication List Home Medication List Reviewed: Yes (YOHAN NO MD) Home Medication List Reviewed: Yes (ELMA CHEUNG) Review of Systems Constitutional: no symptoms reported Eyes: No Symptoms Reported Ears, Nose, Mouth, Throat: no symptoms reported Respiratory: no symptoms reported Cardiovascular: see HPI Gastrointestinal: no symptoms reported Genitourinary: no symptoms reported : No Musculoskeletal: no symptoms reported Skin: no symptoms reported Psychiatric/Neurological: See HPI Endocrine: No Symptoms Reported Hematologic/Lymphatic: No Symptoms Reported (YOHAN NO MD) Past Kfnkacr-Dqpfdd-Qfoeup Hx Past Med/Social Hx: Reviewed Nursing Past Med/Soc Hx (YOHAN NO MD) Patient Social History Alcohol Use: Denies Use Recreational Drug Use: No Recent Foreign Travel: No Contact w/Someone Who Travel: No Recent Infectious Disease Expo: No Recent Hopitalizations: No (YOHAN NO MD) Immunizations Up To Date Tetanus Booster (TDap): Unknown PED Vaccines UTD: No Date of Pneumonia Vaccine: Feb 20, 2017 Date of Influenza Vaccine: Feb 06, 2017 (YOHAN NO MD) Seasonal Allergies Seasonal Allergies: Yes (YOHAN NO MD) Past Medical History Surgeries: Yes (FISSURE SX AFTER HYSTERECTOMY, Rt. 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 LEFT FOOT) Arthritis, Chronic Back Pain, Fractures Endocrine: Yes Diabetes, Insulin dep HEENT: Yes Cataract Loss of Vision: Denies Hearing Impairment: Denies Cancer: No Psychosocial: No Integumentary: No Blood Disorders: Yes (Chronic ANEMIA- epo shots) Adverse Reaction/Blood Tranf: No (N/A) (YOHAN NO MD) Family Medical History Alzheimer's disease 19 MOTHER Cardiovascular disease Cataract 19 MOTHER Cataracts Congestive heart failure 19 FATHER Dementia 19 MOTHER Dementia 19 MOTHER Diabetes mellitus Family history: Allergy 19 FATHER 19 MOTHER Family history: Alzheimer's disease 19 MOTHER Family history: Cardiovascular disease 19 MOTHER Family history: Diabetes mellitus G8 BROTHER G8 BROTHER G8 SISTER Family history: Hypertension 19 FATHER Hearing loss G8 BROTHER Heart disease 19 FATHER G8 BROTHER G8 BROTHER G8 SISTER Hypertension 19 FATHER 19 MOTHER G8 BROTHER Infertile 19 FATHER 19 MOTHER G8 BROTHER G8 BROTHER G8 SISTER Myocardial infarction 19 FATHER Myocardial infarction 19 FATHER Psychotic disorder 19 FATHER Severe allergy G8 BROTHER G8 BROTHER Stroke 19 FATHER No Family History of: AIDS Abdominal aortic aneurysm Abdominal aortic aneurysm [place]'s disease [place]'s disease Alcoholism Alcoholism Aphasia Aphasia Arthritis Asthma Cancer Cancer of colon Cancer of mouth Chest pain Colon cancer Completed stroke Congenital disease Congenital heart disease Congenital heart disease Coronary thrombosis Cystic fibrosis Cystic fibrosis Dysphagia Family history: Arthritis Family history: Asthma Family history: Breast disease Family history: Coronary thrombosis Family history: Gastrointestinal disease Family history: Glaucoma Family history: Osteoporosis Family history: Thyroid disorder Fibrocystic disease of breast Gastroenteritis Glaucoma Headache Headache disorder Hereditary disease History of - anemia History of - disorder History of - respiratory disease History of drug abuse Human immunodeficiency virus (HIV) seropositivity Hypercholesterolemia Hypercholesterolemia Kidney disease Malignant neoplasm of lung Neoplasm Not obtainable due to adoption Osteoporosis Parkinson's disease Parkinson's disease Prostate cancer Psychosocial problem Seizure disorder Seizure disorder Thyroid disease Tuberculosis Tuberculosis Visual disorder Visual impairment Physical Exam Vital Signs Vital Signs - First Documented 09/30/17 09/30/17 17:10 18:32 Temp 96.8 Pulse 87 Resp 12 B/P (MAP) 222/147 (172) Pulse Ox 96 O2 Delivery Nasal Cannula O2 Flow Rate 2.00 (ELMA CHEUNG) Vital Signs Capillary Refill : Less Than 3 Seconds (YOHAN NO MD) General Appearance: WD/WN, no apparent distress HEENT: PERRL/EOMI, normal ENT inspection, other (oropharynx appears dry) Neck: normal inspection Respiratory: lungs clear, normal breath sounds, no respiratory distress, no accessory muscle use Cardiovascular: regular rate, rhythm, no edema, no murmur Gastrointestinal: normal bowel sounds, non tender, soft Extremities: other (mild pedal edema with dressings intact on the feet) Neurologic/Psychiatric: other (patient appears to be moving all 4 extremities. She does not follow instructions well and neuro exam is therefore difficult to obtain. Patient does appear alert but speech is garbled. She appears to have expressive and receptive aphasia. She does answer some yes and no questions.) Crainal Nerves: PERRL Skin: normal color, warm/dry (YOHAN NO MD) Stroke Onset of Symptoms Onset of Symptoms: No Symptoms onset unknown: Yes (ELMA CHEUNG) NIH Stroke Scale Assessment Gaze: Normal (0), Total: Select: Initial Level of Consciousness: 0=Alert (0), Level of Consciousness- Questions: 2=Answer neither question (2), LOC Commands: 2=Performs neither task (2), Gaze: Normal (0), Visual Rahman: 0=No visual loss (0), Facial Movement ( Facial Paresis): 0=Normal symmetrical mnt (0), Motor Function-Arms Right: 1= Drift resists pronation (1), Motor Function-Arms Left: 0=No drift (0), Motor Function-Legs Right: 4=No movement (4), Motor Function-Legs Left: 4=No movement (4), Limb Ataxia: 2=Present in two limbs (2), Sensory: 1=Mild to Moderate loss does not indicate feeling in legs jose roberto (1), Best Language: 2=Severe aphasia (2), Dysarthria: 1=Mild to moderate loss (1), Extinction & Inattention: 2= ProfoundHemiInattention unable to perform test due to inarticulate (2), Total: 21 Stroke Thrombolytic Exclusion Age 18 or Over: Yes Acute intenal hemorrhage: No History of CVA: Yes Uncontrolled Coagulation Defec: No Intracranial Hemorrhage: No Severe Hypertension: Yes GI or Bleed: No Subarachnoid Hemorrhage: No Intracranial Neoplasm/Aneurysm: No Oral Anticoagulants: No Surgery or Trauma: No Puncture of Non-Compressible V: No Recent CPR: No Diabetic Hemorrhagic Retinopat: No Organ Biopsy: No Recent Obstetric Delivery: No Glucose: No Significant Hepatic Dysfunctio: No NIH Stoke Scale >22: No Bacterial Endocarditis: No Pericarditis: No Improving Symptoms: No Platelets: No (YOHAN NO MD) Age 18 or Over: Yes Acute intenal hemorrhage: No History of CVA: Yes Uncontrolled Coagulation Defec: No Intracranial Hemorrhage: No Severe Hypertension: Yes GI or Bleed: No Subarachnoid Hemorrhage: No Intracranial Neoplasm/Aneurysm: No Oral Anticoagulants: No Surgery or Trauma: No Puncture of Non-Compressible V: No Recent CPR: No Diabetic Hemorrhagic Retinopat: No Organ Biopsy: No Recent Obstetric Delivery: No Glucose: No (401) Significant Hepatic Dysfunctio: No NIH Stoke Scale >22: No Bacterial Endocarditis: No Pericarditis: No Improving Symptoms: Yes (slight improvement) Platelets: No (250k) TPA Contraindication: No (ELMA CHEUNG) IV - TPa Received IV - TPa Procedure Performed?: No (HTN; Unk LKWT) (ELMA CHEUNG) Progress/Results/Core Measures Results/Orders Lab Results Laboratory Tests Test 09/30/17 17:15 09/30/17 17:59 Range/Units White Blood Count 8.0 4.3-11.0 10^3/uL Red Blood Count 4.23 L 4.35-5.85 10^6/uL Hemoglobin 12.2 11.5-16.0 G/DL Hematocrit 38 35-52 % Mean Corpuscular Volume 90 80-99 FL Mean Corpuscular Hemoglobin 29 25-34 PG Mean Corpuscular Hemoglobin Concent 32 32-36 G/DL Red Cell Distribution Width 14.1 10.0-14.5 % Platelet Count 235 130-400 10^3/uL Mean Platelet Volume 10.2 7.4-10.4 FL Neutrophils (%) (Auto) 81 H 42-75 % Lymphocytes (%) (Auto) 12 12-44 % Monocytes (%) (Auto) 7 0-12 % Eosinophils (%) (Auto) 0 0-10 % Basophils (%) (Auto) 0 0-10 % Neutrophils # (Auto) 6.5 1.8-7.8 X 10^3 Lymphocytes # (Auto) 0.9 L 1.0-4.0 X 10^3 Monocytes # (Auto) 0.6 0.0-1.0 X 10^3 Eosinophils # (Auto) 0.0 0.0-0.3 10^3/uL Basophils # (Auto) 0.0 0.0-0.1 10^3/uL Prothrombin Time 13.4 12.2-14.7 SEC INR Comment 1.0 0.8-1.4 Activated Partial Thromboplast Time 27 24-35 SEC D-Dimer 1.00 H 0.00-0.49 UG/ML Sodium Level 137 135-145 MMOL/L Potassium Level 5.4 H 3.6-5.0 MMOL/L Chloride Level 107 98-107 MMOL/L Carbon Dioxide Level 21 21-32 MMOL/L Anion Gap 9 5-14 MMOL/L Blood Urea Nitrogen 55 H 7-18 MG/DL Creatinine 2.32 H 0.60-1.30 MG/DL Estimat Glomerular Filtration Rate 21 BUN/Creatinine Ratio 24 Glucose Level 401 *H 70-105 MG/DL Calcium Level 9.7 8.5-10.1 MG/DL Total Bilirubin 0.3 0.1-1.0 MG/DL Aspartate Amino Transf (AST/SGOT) 20 5-34 U/L Alanine Aminotransferase (ALT/SGPT) 20 0-55 U/L Alkaline Phosphatase 77 40-136 U/L Troponin I < 0.30 <0.30 NG/ML Total Protein 7.6 6.4-8.2 GM/DL Albumin 3.7 3.2-4.5 GM/DL Urine Color YELLOW Urine Clarity CLEAR Urine pH 6.5 5-9 Urine Specific [place] 1.010 L 1.016-1.022 Urine Protein 4+ NEGATIVE Urine Glucose (UA) 4+ H NEGATIVE Urine Ketones NEGATIVE NEGATIVE Urine Nitrite NEGATIVE NEGATIVE Urine Bilirubin NEGATIVE NEGATIVE Urine Urobilinogen NORMAL NORMAL MG/DL Urine Leukocyte Esterase NEGATIVE NEGATIVE Urine RBC (Auto) 2+ H NEGATIVE Urine RBC 2-5 H /HPF Urine WBC RARE /HPF Urine Squamous Epithelial Cells NONE /HPF Urine Crystals NONE /LPF Urine Bacteria NEGATIVE /HPF Urine Casts NONE /LPF Urine Mucus NEGATIVE /LPF Urine Culture Indicated NO (ELMA CHEUNG) Medications Given in ED Current Medications Medications Dose Ordered Sig/Solomon Route Start Time Stop Time Status Last Admin Dose Admin Labetalol HCl 20 mg ONCE ONCE IV 09/30/17 17:30 09/30/17 17:31 DC 09/30/17 17:32 20 MG Labetalol HCl 20 mg ONCE ONCE IV 09/30/17 18:15 09/30/17 18:16 DC 09/30/17 18:05 20 MG (ELMA CHEUNG) Vital Signs/I&O 09/30/17 09/30/17 09/30/17 09/30/17 17:10 17:10 18:20 18:32 Temp 96.8 Pulse 87 83 82 Resp 12 19 12 B/P (MAP) 222/147 (172) 224/145 197/103 (134) Pulse Ox 96 100 95 O2 Delivery Nasal Cannula Nasal Cannula O2 Flow Rate 2.00 (ELMA CHEUNG) Blood Pressure Mean: 172 Progress Progress Note : Time: 18:31 Progress Note Care of this patient was transitioned to Dr. Cheung 18:05. Bedside checkout was performed. Patient received labetalol 20 mg IV which minimally improved her blood pressure. A second dose was administered while prepping a Cardene drip. CT of the head showed no acute changes. (YOHAN NO MD) Progress Note : Time: 18:48 Progress Note Upon reexamination the patient had improving answering of questions full she still only oriented to self. She is able to string several words together a sentence. She is not slurring her speech. She is having improved movement and all 3 of 4 limbs and the following commands much better now. Her blood pressure was 190 systolic over 100 diastolic on the Cardene drip 5 mg/kg per hour which is a definite improvement. We have discussed the risks, benefits and alternatives of doing a contrasted CT angiogram of her head and neck at for potential large vessel occlusion with the family and answered all of their questions and they feel that given her remarkable recovery back to baseline after correction of her high blood pressure little over a month ago that they would like to pursue that. They also stated that the patient was very upset when another medication was started that cause damage to her kidneys so they did not wish to repeat that for a potential LVO given the recent recovery of neurologic function just by correcting some of her blood pressure. We will discuss the case with her primary care provider, Dr. Fragoso and set a goal of keeping her blood pressure around 180/110+ or -10 mmHg and decrease the Cardene drip to 2.5 mg (ELMA CHEUNG) Initial ECG Impression Date: September 30, 2017 Initial ECG Impression Time: 17:30 Initial ECG Rate: 86 Initial ECG Rhythm: Normal Sinus Initial ECG Intervals: Normal Initial ECG Impression: Normal Initial ECG Comparisson: Unchanged Comment No ST elevation or depression (ELMA CHEUNG) Diagnostic Imaging Diagonstic Imaging: CT Plain Films/CT/US/NM/MRI: head Comments CT head viewed by me and report reviewed. See report below: NAME: CEDRICK ALBERTS [facility] REC#: [id number] PT STATUS: REG ER : 1950 PHYSICIAN: DEMOND GASTELUM APRN ADMIT DATE: 09/30/17/ER Signed Date of Exam: 09/30/17 CT HEAD WO-R/O STROKE INDICATION: Altered mental status. EXAMINATION: Images through the head were obtained without contrast. FINDINGS: The ventricles are normal in size, shape and position. There are age-related senescent changes present. There is no acute parenchymal hemorrhage, edema or mass. There is no extra-axial mass or hemorrhage. IMPRESSION: No acute abnormality is seen with no change from 08/18/2017. Dictated by: Dictated on workstation # [id number] Dict: 09/30/171725 Trans: 09/30/171736 Interpreted by: LAURIE WALKER MD Electronically signed by: LAURIE WALKER MD 09/30/171736 Diagonstic Imaging: Xray Plain Films/CT/US/NM/MRI: chest Comments NAME: CEDRICK ALBERTS [facility] REC#: [id number] PT STATUS: REG ER : 1950 PHYSICIAN: YOHAN NO MD ADMIT DATE: 09/30/17/ER Signed Date of Exam: 09/30/17 CHEST 1 VIEW, AP/PA ONLY INDICATION: Altered mental status. FINDINGS: Upright portable chest shows cardiomegaly with mild pulmonary venous distention. No infiltrates or effusions are seen. Port-A-Cath is present. These findings are similar to the prior study from 08/20/2017. IMPRESSION: No acute abnormality is seen. Dictated by: Dictated on workstation # [id number] Dict: 09/30/171747 Trans: 09/30/171811 Interpreted by: LAURIE WALKER MD Electronically signed by: LAUREI WALKER MD 09/30/171811 (YOHAN NO MD) Consults : Consults Notes Chetna BEDOLLA Neurology: Discussed the possibility of press syndrome versus a large vessel occlusion. There is no definite focal neurologic findings so she thinks it would be reasonable to lower the blood pressure using an Cardene drip. However she says we cannot rule out a large vessel occlusion without a CT angiogram. She referenced a paper demonstrating that the risk of contrast- induced nephropathy is not as high as may have previously been thought and it would be reasonable after discussing the risks, benefits and alternatives with the power of trackwalker/next of kin to do the CT angiogram just to rule out a large vessel occlusion. If there is then the patient would need to be brought to [facility] for possible intervention. We also discussed this as we do not have nephrology on staff that in the past radiology has asked that we transfer the patient somewhere that has a painting manager on staff for doing a contrasted studies on patients with chronic kidney disease. She says she would be happy to take the patient if that's how family and local staff want to proceed. (ELMA CHEUNG) Departure Communication (Admissions) Time/Spoke to Admitting Phy: 18:50 Discussed the case, labs, imaging and neurology consult with Dr. Fragoso and she agrees with the goals of care and will see the patient in the ICU. (ELMA CHEUNG) Impression Primary Impression: Hypertensive emergency Additional Impression: PRES (posterior reversible encephalopathy syndrome) Disposition: 09 ADMITTED INPATIENT Condition: Critical Admissions Decision to Admit Reason: Admit from ER (General) Decision to Admit/Date: September 30, 2017 Time/Decision to Admit Time: 18:51 (ELMA CHEUNG) Departure-Patient Inst. Referrals: MARY FRAGOSO MD (PCP/Family) Primary Care Physician Copy Copies To 1: CLARITZA HOLMAN JOSHUA T MD September 30, 2017 17:52 ELMA CHEUNG September 30, 2017 18:11
[2017-09-30 17:54] LABS: GLUCOSE 401 MG/DL (70-105)
[2017-09-30] MEDS: niCARdipine IV 50 MG in NS (IVPB) 230 ML IV SCH (18:20)
[2017-09-30 18:21] LABS: BILIRUBIN,URINE NEGATIVE (NEGATIVE); CLARITY,URINE CLEAR; COLOR,URINE YELLOW; GLUCOSE, URINE (UA) 4+ (NEGATIVE); KETONES,URINE NEGATIVE (NEGATIVE); LEUKOCYTE ESTERASE ,URINE NEGATIVE (NEGATIVE); NITRITE,URINE NEGATIVE (NEGATIVE); PH,URINE 6.5 (5-9); PROTEIN,URINE 4+ (NEGATIVE); UROBILINOGEN,URINE NORMAL (NORMAL)
[2017-09-30 18:29] LABS: BACTERIA,URINE NEGATIVE /HPF; WBC,URINE RARE /HPF
--- OUTSIDE RECORDS SUMMARY | 2017-09-30 19:18 | XMS REPORT | Clinical Summary ---
Author Author [facility] Organization [facility] Address Unknown Phone Unavailable Care Team Providers Care Animal Care Assistant Name Role Phone Tobi Benson MD PCP Source Comments Some departments are not documenting in the electronic medical record. If you do not see the information that you expected, contact Release of Information in the Health Information Management department at [phone] for further assistance in locating additional records.[facility] Allergies Not on File Current Medications [...]
[2017-09-30] MEDS ORDERED: CATHETER FLUSH 10 ML SYR IV PRN (20:15)
[2017-09-30] MEDS ORDERED: DILTIAZEM 125 MG/D5W 100 ML DRIP IV SCH ×2 (20:15)
[2017-09-30] MEDS: ROSUVASTATIN 20 MG (CRESTOR) TABLET PO SCH (21:46)
[2017-09-30] MEDS: inSUlin ASPART (NovoLOG) 1 UNIT/0.01 ML (CHARGE PER UNIT) SC SCH (21:55)
[2017-09-30] MEDS: inSUlin DETERMIR 1 UNIT/0.01 ML (LEVEMIR) CHARGE PER UNIT SQ SCH (21:55)
[2017-09-30] MEDS: CATHETER FLUSH 10 ML SYR IV SCH (21:55)
[2017-09-30] MEDS: fentaNYL INJECTION 100 MCG/2 ML AMP IV PRN (22:03)
[2017-10-01] VITALS (46 sets, daily range): BP systolic 122–207; BP diastolic 53–119
[2017-10-01] MEDS: niCARdipine IV 50 MG in NS (IVPB) 230 ML IV SCH ×3 (03:31→17:19)
[2017-10-01] MEDS: CATHETER FLUSH 10 ML SYR IV SCH ×3 (03:31→22:05)
[2017-10-01 03:41] LABS: BASOPHILS % (AUTO) 0 % (0-10); EOSINOPHILS % (AUTO) 0 % (0-10); HEMATOCRIT 33 % (35-52); HEMOGLOBIN 10.8 G/DL (11.5-16.0); LYMPHOCYTES # (AUTO) 1.5 X 10^3 (1.0-4.0); LYMPHOCYTES % (AUTO) 18 % (12-44); MEAN CORPUSCULAR HEMOGLOBIN 29 PG (25-34); MEAN CORPUSCULAR HGB CONC 32 G/DL (32-36); MEAN CORPUSCULAR VOLUME 91 FL (80-99); MEAN PLATELET VOLUME 9.7 FL (7.4-10.4); MONOCYTES # (AUTO) 0.8 X 10^3 (0.0-1.0); MONOCYTES % (AUTO) 10 % (0-12); NEUTROPHILS # (AUTO) 5.9 X 10^3 (1.8-7.8); NEUTROPHILS % (AUTO) 72 % (42-75); PLATELET COUNT 216 10^3/uL (130-400); RED BLOOD COUNT 3.69 10^6/uL (4.35-5.85); RED CELL DISTRIBUTION WIDTH 13.9 % (10.0-14.5); WHITE BLOOD COUNT 8.2 10^3/uL (4.3-11.0)
[2017-10-01 04:01] LABS: CALCIUM 9.1 MG/DL (8.5-10.1); CREATININE SERUM 2.18 MG/DL (0.60-1.30); PHOSPHORUS 3.3 MG/DL (2.3-4.7); POTASSIUM 4.9 MMOL/L (3.6-5.0)
[2017-10-01] MEDS: MAGNESIUM 1 GM/100 ML IVPB 100 ML IV SCH (05:41)
[2017-10-01] MEDS: POTASSIUM CL 10MEQ/50ML IVPB 50 ML IV SCH (05:41)
[2017-10-01] MEDS: KCL 20 MEQ TAB (K-DUR) PO SCH (05:41)
[2017-10-01] MEDS: inSUlin ASPART (NovoLOG) 1 UNIT/0.01 ML (CHARGE PER UNIT) SC SCH ×7 (06:31→21:01)
--- NOTE | 2017-10-01 08:14 | History & Physicial (CHS) ---
HPI History of Present Illness: 67 yo female brought to ER after neighbor saw her out on her porch, unresponsive but apparently awake. Patient states she went to the bathroom and then felt dizzy and like her right hand was asleep, and could not get to her walker, but somehow managed to walk to her porch with only her shirt on and sat on a styrofoam piece on her porch. She states she has been taking all of her medications and denies missing any doses. She has had chronic intermittent feeling of "sleeping" in her right hand, but denies any other neurologic symptoms. She denies chest pain, palpitations, shortness of breath. She was recently admitted with stroke-like symptoms and hypertensive emergency which resolved with treatment. She has chronic kidney disease and uncontrolled diabetes. She states her blood sugar was 130 one morning this week but has been higher and notes her refrigerator froze, but when asked if she had some insulin frozen, she reported she did not know. She has been having a lot of procedures on her eyes and she has home health that has been helping with her medications and insulin. Date seen by provider: October 01, 2017 Time Seen by Provider: 07:25 Attending Physician Mary Palomo MD PCP Mary Palomo MD Consult Date of Admission September 30, 2017 at 19:00 Home Medications Home Medications Reviewed patient Home Medication Reconciliation performed by pharmacy medication reconciliations tool repair technician and/or nursing. Patients Allergies have been reviewed. Allergies Coded Allergies: Bacitracin Zinc (Unverified Allergy, Unknown, 07/11/17) Penicillins (Unverified Allergy, Unknown, HAS RECEIVED ROCEPHIN DURING PREVIOUS ADMIT, 07/11/17) bacitracin (Unverified Allergy, Unknown, 07/11/17) colistimethate sodium (Unverified Allergy, Unknown, 07/11/17) gramicidin D (Unverified Allergy, Unknown, 07/11/17) neomycin sulfate (Unverified Allergy, Unknown, 07/11/17) polymyxin B (Unverified Allergy, Unknown, 07/11/17) polymyxin B sulfate (Unverified Allergy, Unknown, 07/11/17) pramoxine HCl (Unverified Allergy, Unknown, 07/11/17) NII-Zvzufw-Jwmian Hx Patient Social History Alcohol Use: Denies Use Recreational Drug Use: No Smoking Status: Never a Smoker Recent Foreign Travel: No Contact w/other who traveled: No Recent Hopitalizations: No Recent Infectious Disease Expo: No Physical Abuse Screen: No Sexual Abuse: No Immunizations Up To Date Tetanus Booster (TDap): Unknown Date of Pneumonia Vaccine: Feb 20, 2017 Date of Influenza Vaccine: Feb 06, 2017 Past Medical History PMHx: HTN HERNAN on bipap IDDM CKD baseline Cr 2-2.5 h/o multiple TIAs h/o DVT, IVC filter in place Iron deficiency anemia Renal osteodystrophy CAD SurgHx: Cholecystectomy Tonsillectomy and adenoidectomy Carotid endarterectomy Hysterectomy Laser eye surgery Right foot tumor removal Osteomyelitis left fourth toe Family Medical History Significant Family History: Heart Disease, Diabetes, Hypertension Family History: Alzheimer's disease 19 MOTHER Cardiovascular disease Cataract 19 MOTHER Cataracts Congestive heart failure 19 FATHER Dementia 19 MOTHER Dementia 19 MOTHER Diabetes mellitus Family history: Allergy 19 FATHER 19 MOTHER Family history: Alzheimer's disease 19 MOTHER Family history: Cardiovascular disease 19 MOTHER Family history: Diabetes mellitus G8 BROTHER G8 BROTHER G8 SISTER Family history: Hypertension 19 FATHER Hearing loss G8 BROTHER Heart disease 19 FATHER G8 BROTHER G8 BROTHER G8 SISTER Hypertension 19 FATHER 19 MOTHER G8 BROTHER Infertile 19 FATHER 19 MOTHER G8 BROTHER G8 BROTHER G8 SISTER Myocardial infarction 19 FATHER Myocardial infarction 19 FATHER Psychotic disorder 19 FATHER Severe allergy G8 BROTHER G8 BROTHER Stroke 19 FATHER No Family History of: AIDS Abdominal aortic aneurysm Abdominal aortic aneurysm Hart's disease Gigi's disease Alcoholism Alcoholism Aphasia Aphasia Arthritis Asthma Cancer Cancer of colon Cancer of mouth Chest pain Colon cancer Completed stroke Congenital disease Congenital heart disease Congenital heart disease Coronary thrombosis Cystic fibrosis Cystic fibrosis Dysphagia Family history: Arthritis Family history: Asthma Family history: Breast disease Family history: Coronary thrombosis Family history: Gastrointestinal disease Family history: Glaucoma Family history: Osteoporosis Family history: Thyroid disorder Fibrocystic disease of breast Gastroenteritis Glaucoma Headache Headache disorder Hereditary disease History of - anemia History of - disorder History of - respiratory disease History of drug abuse Human immunodeficiency virus (HIV) seropositivity Hypercholesterolemia Hypercholesterolemia Kidney disease Malignant neoplasm of lung Neoplasm Not obtainable due to adoption Osteoporosis Parkinson's disease Parkinson's disease Prostate cancer Psychosocial problem Seizure disorder Seizure disorder Thyroid disease Tuberculosis Tuberculosis Visual disorder Visual impairment Review of Systems (CHC) Constitutional: No fever EENTM: no symptoms reported Respiratory: No short of breath Cardiovascular: No chest pain, No palpitations Gastrointestinal: no symptoms reported Genitourinary: no symptoms reported Musculoskeletal: no symptoms reported Skin: no symptoms reported Psychiatric/Neurological: See HPI, Other (dizziness) Reviewed Test Results Reviewed Test Results Lab Laboratory Tests Test 09/30/17 17:15 09/30/17 17:59 09/30/17 21:32 10/01/17 00:42 Range/Units White Blood Count 8.0 4.3-11.0 10^3/uL Red Blood Count 4.23 L 4.35-5.85 10^6/uL Hemoglobin 12.2 11.5-16.0 G/DL Hematocrit 38 35-52 % Mean Corpuscular Volume 90 80-99 FL Mean Corpuscular Hemoglobin 29 25-34 PG Mean Corpuscular Hemoglobin Concent 32 32-36 G/DL Red Cell Distribution Width 14.1 10.0-14.5 % Platelet Count 235 130-400 10^3/uL Mean Platelet Volume 10.2 7.4-10.4 FL Neutrophils (%) (Auto) 81 H 42-75 % Lymphocytes (%) (Auto) 12 12-44 % Monocytes (%) (Auto) 7 0-12 % Eosinophils (%) (Auto) 0 0-10 % Basophils (%) (Auto) 0 0-10 % Neutrophils # (Auto) 6.5 1.8-7.8 X 10^3 Lymphocytes # (Auto) 0.9 L 1.0-4.0 X 10^3 Monocytes # (Auto) 0.6 0.0-1.0 X 10^3 Eosinophils # (Auto) 0.0 0.0-0.3 10^3/uL Basophils # (Auto) 0.0 0.0-0.1 10^3/uL Prothrombin Time 13.4 12.2-14.7 SEC INR Comment 1.0 0.8-1.4 Activated Partial Thromboplast Time 27 24-35 SEC D-Dimer 1.00 H 0.00-0.49 UG/ML Sodium Level 137 135-145 MMOL/L Potassium Level 5.4 H 3.6-5.0 MMOL/L Chloride Level 107 98-107 MMOL/L Carbon Dioxide Level 21 21-32 MMOL/L Anion Gap 9 5-14 MMOL/L Blood Urea Nitrogen 55 H 7-18 MG/DL Creatinine 2.32 H 0.60-1.30 MG/DL Estimat Glomerular Filtration Rate 21 BUN/Creatinine Ratio 24 Glucose Level 401 *H 70-105 MG/DL Calcium Level 9.7 8.5-10.1 MG/DL Total Bilirubin 0.3 0.1-1.0 MG/DL Aspartate Amino Transf (AST/SGOT) 20 5-34 U/L Alanine Aminotransferase (ALT/SGPT) 20 0-55 U/L Alkaline Phosphatase 77 40-136 U/L Troponin I < 0.30 <0.30 NG/ML Total Protein 7.6 6.4-8.2 GM/DL Albumin 3.7 3.2-4.5 GM/DL Urine Color YELLOW Urine Clarity CLEAR Urine pH 6.5 5-9 Urine Specific [place] 1.010 L 1.016-1.022 Urine Protein 4+ NEGATIVE Urine Glucose (UA) 4+ H NEGATIVE Urine Ketones NEGATIVE NEGATIVE Urine Nitrite NEGATIVE NEGATIVE Urine Bilirubin NEGATIVE NEGATIVE Urine Urobilinogen NORMAL NORMAL MG/DL Urine Leukocyte Esterase NEGATIVE NEGATIVE Urine RBC (Auto) 2+ H NEGATIVE Urine RBC 2-5 H /HPF Urine WBC RARE /HPF Urine Squamous Epithelial Cells NONE /HPF Urine Crystals NONE /LPF Urine Bacteria NEGATIVE /HPF Urine Casts NONE /LPF Urine Mucus NEGATIVE /LPF Urine Culture Indicated NO Glucometer 378 H 312 H 70-110 MG/DL Test 10/01/17 03:25 Range/Units White Blood Count 8.2 4.3-11.0 10^3/uL Red Blood Count 3.69 L 4.35-5.85 10^6/uL Hemoglobin 10.8 L 11.5-16.0 G/DL Hematocrit 33 L 35-52 % Mean Corpuscular Volume 91 80-99 FL Mean Corpuscular Hemoglobin 29 25-34 PG Mean Corpuscular Hemoglobin Concent 32 32-36 G/DL Red Cell Distribution Width 13.9 10.0-14.5 % Platelet Count 216 130-400 10^3/uL Mean Platelet Volume 9.7 7.4-10.4 FL Neutrophils (%) (Auto) 72 42-75 % Lymphocytes (%) (Auto) 18 12-44 % Monocytes (%) (Auto) 10 0-12 % Eosinophils (%) (Auto) 0 0-10 % Basophils (%) (Auto) 0 0-10 % Neutrophils # (Auto) 5.9 1.8-7.8 X 10^3 Lymphocytes # (Auto) 1.5 1.0-4.0 X 10^3 Monocytes # (Auto) 0.8 0.0-1.0 X 10^3 Eosinophils # (Auto) 0.0 0.0-0.3 10^3/uL Basophils # (Auto) 0.0 0.0-0.1 10^3/uL Sodium Level 140 135-145 MMOL/L Potassium Level 4.9 3.6-5.0 MMOL/L Chloride Level 109 H 98-107 MMOL/L Carbon Dioxide Level 23 21-32 MMOL/L Anion Gap 8 5-14 MMOL/L Blood Urea Nitrogen 51 H 7-18 MG/DL Creatinine 2.18 H 0.60-1.30 MG/DL Estimat Glomerular Filtration Rate 23 BUN/Creatinine Ratio 23 Glucose Level 283 H 70-105 MG/DL Calcium Level 9.1 8.5-10.1 MG/DL Phosphorus Level 3.3 2.3-4.7 MG/DL Magnesium Level 2.0 1.8-2.4 MG/DL Radiology CT head 10/01: "IMPRESSION: No acute abnormality is seen with no change from ." CXR 10/01: No acute abnormality Physical Exam-(CHC) Physical Exam Vital Signs VS - Last 72 Hours, by Label 09/30/17 09/30/17 09/30/17 09/30/17 17:10 17:10 18:20 18:32 Temp 96.8 Pulse 87 83 82 Resp 12 19 12 B/P (MAP) 222/147 (172) 224/145 197/103 (134) Pulse Ox 96 100 95 O2 Delivery Nasal Cannula Nasal Cannula O2 Flow Rate 2.00 09/30/17 09/30/17 09/30/17 09/30/17 19:20 19:43 19:43 19:45 Temp 98.2 97.1 Pulse 84 90 89 91 Resp 20 20 23 B/P (MAP) 210/125 225/120 (155) 182/142 (155) Pulse Ox 99 94 95 O2 Delivery Nasal Cannula Nasal Cannula O2 Flow Rate 2.00 2.00 2.00 09/30/17 09/30/17 09/30/17 09/30/17 20:00 20:00 20:03 20:15 Pulse 88 89 Resp 14 21 B/P (MAP) 191/130 (150) 160/94 (116) 180/77 (111) Pulse Ox 92 94 92 O2 Delivery Nasal Cannula Nasal Cannula Nasal Cannula O2 Flow Rate 2.00 2.00 2.00 09/30/17 09/30/17 09/30/17 09/30/17 20:30 20:45 20:58 21:00 Pulse 89 92 93 Resp 10 13 10 B/P (MAP) 185/93 (123) 173/76 (108) 140/67 (91) Pulse Ox 95 95 92 O2 Delivery Nasal Cannula Nasal Cannula Nasal Cannula Nasal Cannula O2 Flow Rate 2.00 2.00 2.00 2.00 09/30/17 09/30/17 09/30/17 09/30/17 21:15 21:30 21:45 22:00 Pulse 95 95 95 96 Resp 11 22 17 B/P (MAP) 161/80 (107) 160/75 (103) 164/85 (111) 171/85 (113) Pulse Ox 92 92 95 93 O2 Delivery Nasal Cannula Nasal Cannula Nasal Cannula Nasal Cannula O2 Flow Rate 2.00 2.00 2.00 2.00 09/30/17 09/30/17 09/30/17 09/30/17 22:15 22:30 22:45 23:00 Pulse 96 95 94 93 Resp B/P (MAP) 168/96 (120) 151/68 (95) 160/88 (112) 165/86 (112) Pulse Ox 94 93 88 88 O2 Delivery Nasal Cannula Nasal Cannula NIV CPAP NIV CPAP O2 Flow Rate 2.00 2.00 3.00 3.00 09/30/17 09/30/17 09/30/17 10/01/17 23:15 23:30 23:45 00:00 Temp 99.2 Pulse 94 91 85 Resp 27 23 22 B/P (MAP) 146/69 (94) 128/66 (86) Pulse Ox 92 91 92 O2 Delivery NIV CPAP NIV CPAP NIV CPAP O2 Flow Rate 3.00 3.00 3.00 10/01/17 10/01/17 10/01/17 10/01/17 00:00 00:00 00:15 00:30 Pulse 86 86 82 Resp 25 22 21 B/P (MAP) 143/67 (92) 149/73 (98) 144/69 (94) Pulse Ox 94 92 93 93 O2 Delivery NIV CPAP NIV CPAP NIV CPAP NIV CPAP O2 Flow Rate 3.00 3.00 3.00 3.00 10/01/17 10/01/17 10/01/17 10/01/17 00:45 01:00 01:00 01:15 Pulse 80 77 77 77 Resp 11 21 20 B/P (MAP) 161/70 (100) 128/58 (81) 125/59 (81) Pulse Ox 97 92 92 O2 Delivery NIV CPAP NIV CPAP NIV CPAP O2 Flow Rate 3.00 3.00 3.00 10/01/17 10/01/17 10/01/17 10/01/17 01:30 01:45 02:00 02:15 Pulse 76 78 74 71 Resp 18 20 19 21 B/P (MAP) 152/69 (96) 147/70 (95) 160/75 (103) 126/60 (82) Pulse Ox 95 94 96 92 O2 Delivery NIV CPAP NIV CPAP NIV CPAP NIV CPAP O2 Flow Rate 3.00 3.00 3.00 3.00 10/01/17 10/01/17 10/01/17 10/01/17 02:30 02:45 03:00 03:15 Pulse 70 71 76 71 Resp 18 19 18 18 B/P (MAP) 132/62 (85) 139/62 (87) 122/96 (105) 144/79 (100) Pulse Ox 92 92 99 93 O2 Delivery NIV CPAP NIV CPAP NIV CPAP NIV CPAP O2 Flow Rate 3.00 3.00 3.00 3.00 10/01/17 10/01/17 10/01/17 10/01/17 03:30 03:45 04:00 04:00 Pulse 71 71 72 Resp 15 11 11 B/P (MAP) 126/88 (101) 158/79 (105) 162/77 (105) Pulse Ox 97 97 97 94 O2 Delivery NIV CPAP NIV CPAP NIV CPAP NIV CPAP O2 Flow Rate 3.00 3.00 3.00 3.00 10/01/17 10/01/17 10/01/17 10/01/17 04:15 04:30 04:45 05:00 Pulse 71 70 69 71 Resp 11 13 11 21 B/P (MAP) 181/92 (121) 180/93 (122) 182/98 (126) 161/79 (106) Pulse Ox 98 95 98 96 O2 Delivery NIV CPAP NIV CPAP NIV CPAP NIV CPAP O2 Flow Rate 3.00 3.00 3.00 3.00 10/01/17 10/01/17 10/01/17 10/01/17 05:15 05:30 05:45 06:00 Pulse 75 70 72 68 Resp 11 10 15 10 B/P (MAP) 157/72 (100) 151/73 (99) 148/69 (95) 166/80 (108) Pulse Ox 96 90 97 96 O2 Delivery NIV CPAP NIV CPAP NIV CPAP NIV CPAP O2 Flow Rate 3.00 3.00 3.00 3.00 10/01/17 10/01/17 10/01/17 06:15 06:30 06:45 Pulse 70 66 65 Resp 10 24 11 B/P (MAP) 158/78 (104) 176/98 (124) 161/74 (103) Pulse Ox 98 98 98 O2 Delivery NIV CPAP NIV CPAP NIV CPAP O2 Flow Rate 3.00 3.00 3.00 Capillary Refill : Less Than 3 Seconds General Appearance: no apparent distress HEENT: PERRL/EOMI, pharynx normal Respiratory: lungs clear, normal breath sounds Cardiovascular: regular rate, rhythm, no murmur Neurologic/Psychiatric: resource coordinator II-XII nml as tested, alert, normal mood/affect, oriented x 3; No abnormal cerebellar tests, No aphasia, No facial droop, No motor weakness Skin: normal color, warm/dry Assessment/Plan Assessment/Plan Admission Status: Inpatient Order (span 2 midnights) Reason for Inpatient Admission: Severe hypertension with severe neurologic deficits requiring anti-hypertensive continuous drip. (1) PRES (posterior reversible encephalopathy syndrome) Status: Acute Assessment & Plan: Suspected based on clinical picture with near obtundation on arrival and now completely normal neurologic status after cardizem drip overnight. Cardizem drip d/c overnight, blood pressure starting to increase again this am, will resume home metoprolol and losartan and if still elevated, may need to restart drip. CT head done without acute changes, discussed CTA head with [facility] last night and discussed transfer of patient due to CKD and risk of contrast nephropathy, patient's family declined. She is markedly improved this am, continue current management. History of recurrent TIAs, continue clopidogrel. 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 Sliding scale insulin. (5) Obesity hypoventilation syndrome Status: Chronic Assessment & Plan: Chronically supplemental oxygen dependent. (6) Sleep apnea with use of nocturnal bilevel positive airway pressure (BPAP) Status: Chronic Assessment & Plan: Has home machine with her, use when sleeping. (7) Coronary artery disease Status: Chronic Assessment & Plan: Resume home asa, rosuvastatin Qualifiers: Qualified Codes: I25.10 - Atherosclerotic heart disease of [place] coronary artery without angina pectoris (8) DVT prophylaxis Status: Acute Assessment & Plan: Enoxaparin, renally dosed. Clinical Quality Measures DVT/VTE Risk/Contraindication: Risk Factor Score Per Nursin RFS Level Per Nursing on Admit: 4+=Very High Stroke: Symptoms onset unknown: Yes MARY PALOMO MD October 01, 2017 08:14
[2017-10-01] MEDS ORDERED: LORA10TA44 PO (08:37)
[2017-10-01] MEDS ORDERED: CALC1TAB94 PO (08:37)
[2017-10-01] MEDS ORDERED: DARB10SY IJ (08:37)
[2017-10-01] MEDS ORDERED: ARGI2000 PO (08:37)
[2017-10-01] MEDS ORDERED: TORS100T4 PO (08:37)
[2017-10-01] MEDS ORDERED: FLAX1000 PO (08:37)
[2017-10-01] MEDS ORDERED: CARB15DR2 OP (08:37)
[2017-10-01] MEDS ORDERED: DIPH1TAB PO (08:37)
[2017-10-01] MEDS ORDERED: GABA-486 PO (08:37)
--- NOTE | 2017-10-01 09:27 | Diagnostic Imaging Report ---
Portable chest is compared with the previous a study from 09/30/2017. Indication: Altered mental status with hypertensive emergency. Findings: The right-sided internal jugular central line remains present and terminates within the SVC. The lungs demonstrate no evidence of focal pulmonary consolidation. No significant effusion demonstrated. There is no pneumothorax. Heart and mediastinal contours appear stable. The central pulmonary vascularity appears within normal limits. Impression: 1. No radiographic evidence of an acute cardiopulmonary process. Dictated by: Dictated on workstation # [id number]
[2017-10-01] MEDS: meTOproloL SUCCINATE 50 MG (TOPROL XL) TAB PO SCH (09:41)
[2017-10-01] MEDS: LOSARTAN 100 MG (COZAAR) TABLET PO SCH ×2 (09:43→21:00)
[2017-10-01] MEDS: CLOPIDOGREL 75 MG (PLAVIX) TABLET PO SCH (09:43)
[2017-10-01] MEDS: inSUlin DETERMIR 1 UNIT/0.01 ML (LEVEMIR) CHARGE PER UNIT SQ SCH ×2 (09:43→21:00)
[2017-10-01] MEDS: GABAPENTIN 100 MG (NEURONTIN) CAP PO SCH ×3 (09:43→21:00)
[2017-10-01] MEDS: ENOXAPARIN 40 MG/0.4 ML (LOVENOX) SYR SQ SCH (09:43)
[2017-10-01] MEDS: NON-FORMULARY MEDICATION 1 EA EA (Brinzolamide/Brimonidine Tart (Simbrinza 1%-0.2% Eye Dro OU SCH ×2 (09:47→21:21)
[2017-10-01] MEDS: VITAMIN D3 5,000 UNITS (CHOLECALCIFEROL ) CAPSULE PO SCH (21:00)
[2017-10-01] MEDS: ROSUVASTATIN 20 MG (CRESTOR) TABLET PO SCH (21:01)
[2017-10-01] MEDS: ASPIRIN E.C. 81 MG (ECOTRIN) TAB PO SCH (21:01)
[2017-10-02] VITALS (39 sets, daily range): BP systolic 109–181; BP diastolic 56–97
[2017-10-02] MEDS: niCARdipine IV 50 MG in NS (IVPB) 230 ML IV SCH ×2 (01:20→10:29)
[2017-10-02 03:28] LABS: BASOPHILS % (AUTO) 0 % (0-10); EOSINOPHILS % (AUTO) 0 % (0-10); HEMATOCRIT 35 % (35-52); HEMOGLOBIN 11.1 G/DL (11.5-16.0); LYMPHOCYTES # (AUTO) 1.5 X 10^3 (1.0-4.0); LYMPHOCYTES % (AUTO) 18 % (12-44); MEAN CORPUSCULAR HEMOGLOBIN 29 PG (25-34); MEAN CORPUSCULAR HGB CONC 32 G/DL (32-36); MEAN CORPUSCULAR VOLUME 91 FL (80-99); MEAN PLATELET VOLUME 9.4 FL (7.4-10.4); MONOCYTES # (AUTO) 0.7 X 10^3 (0.0-1.0); MONOCYTES % (AUTO) 8 % (0-12); NEUTROPHILS # (AUTO) 5.8 X 10^3 (1.8-7.8); NEUTROPHILS % (AUTO) 73 % (42-75); PLATELET COUNT 232 10^3/uL (130-400); RED BLOOD COUNT 3.79 10^6/uL (4.35-5.85); RED CELL DISTRIBUTION WIDTH 14.3 % (10.0-14.5)
[2017-10-02 03:44] LABS: CALCIUM 9.2 MG/DL (8.5-10.1); CREATININE SERUM 2.04 MG/DL (0.60-1.30); MAGNESIUM 2.1 MG/DL (1.8-2.4); PHOSPHORUS 3.9 MG/DL (2.3-4.7); POTASSIUM 4.7 MMOL/L (3.6-5.0)
[2017-10-02] MEDS: inSUlin ASPART (NovoLOG) 1 UNIT/0.01 ML (CHARGE PER UNIT) SC SCH ×7 (06:00→20:34)
[2017-10-02] MEDS: POTASSIUM CL 10MEQ/50ML IVPB 50 ML IV SCH (06:32)
[2017-10-02] MEDS: MAGNESIUM 1 GM/100 ML IVPB 100 ML IV SCH (06:33)
[2017-10-02] MEDS: CATHETER FLUSH 10 ML SYR IV SCH ×3 (06:33→20:30)
[2017-10-02] MEDS: KCL 20 MEQ TAB (K-DUR) PO SCH (06:33)
[2017-10-02] MEDS: NON-FORMULARY MEDICATION 1 EA EA (Brinzolamide/Brimonidine Tart (Simbrinza 1%-0.2% Eye Dro OU SCH (07:41)
--- NOTE | 2017-10-02 08:08 | Diagnostic Imaging Report ---
Indication: Hypertension. Comparison made with prior examination of 10/01/2017. Findings: There is cardiomegaly. Mediastinum is unremarkable. No pleural effusion or pneumothorax. Right jugular central venous catheter in place. Impression: Stable appearance of the chest. Dictated by: Dictated on workstation # [id number]
[2017-10-02] MEDS: inSUlin DETERMIR 1 UNIT/0.01 ML (LEVEMIR) CHARGE PER UNIT SQ SCH ×2 (09:32→20:30)
[2017-10-02] MEDS: ENOXAPARIN 40 MG/0.4 ML (LOVENOX) SYR SQ SCH (09:32)
[2017-10-02] MEDS: GABAPENTIN 100 MG (NEURONTIN) CAP PO SCH ×3 (09:33→20:28)
[2017-10-02] MEDS: meTOproloL SUCCINATE 50 MG (TOPROL XL) TAB PO SCH (09:33)
[2017-10-02] MEDS: CLOPIDOGREL 75 MG (PLAVIX) TABLET PO SCH (09:33)
--- NOTE | 2017-10-02 12:43 | Progress Note-Hospitalist ---
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 Patient is more alert today but still foggy thought process she reports No BM after she tried a couple of times so will initiate meds Denies pain Checked meds and labs Review of Systems Pulmonary: Dyspnea, Cough Objective Exam Vital Signs Vital Signs Date Time Temp Pulse Resp B/P (MAP) Pulse Ox O2 Delivery O2 Flow Rate FiO2 10/02/17 17:00 25 19 148/74 (98) 95 Nasal Cannula 3.00 10/02/17 16:00 98.3 Capillary Refill : Less Than 3 Seconds General Appearance: No Apparent Distress, WD/WN, Chronically ill, Thin Respiratory: Crackles, Decreased Breath Sounds, Wheezing Cardiovascular: Regular Rate, Rhythm, No Edema Neurologic/Psychiatric: Alert, No Motor/Sensory Deficits, Depressed Affect Results/Procedures Lab Laboratory Tests 10/02/17 03:15 Patient resulted labs reviewed. Assessment/Plan Assessment and Plan Assess & Plan/Chief Complaint Assessment per Dr Palomo: (1) PRES (posterior reversible encephalopathy syndrome) Status: Acute Assessment & Plan: Suspected based on clinical picture with near obtundation on arrival and now completely normal neurologic status after cardizem drip overnight. Cardizem drip d/c overnight, blood pressure starting to increase again this am, will resume home metoprolol and losartan and if still elevated, may need to restart drip. CT head done without acute changes, discussed CTA head with [facility] last night and discussed transfer of patient due to CKD and risk of contrast nephropathy, patient's family declined. She is markedly improved this am, continue current management. History of recurrent TIAs, continue clopidogrel. 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 Sliding scale insulin. (5) Obesity hypoventilation syndrome Status: Chronic Assessment & Plan: Chronically supplemental oxygen dependent. (6) Sleep apnea with use of nocturnal bilevel positive airway pressure (BPAP) Status: Chronic Assessment & Plan: Has home machine with her, use when sleeping. (7) Coronary artery disease Status: Chronic Assessment & Plan: Resume home asa, rosuvastatin Qualifiers: Qualified Codes: I25.10 - Atherosclerotic heart disease of [place] coronary artery without angina pectoris (8) DVT prophylaxis Status: Acute Assessment & Plan: Enoxaparin, renally dosed. Maintain ICU status Consult Dr Jasvir urena Poor prognosis considering overall debility baseline Diagnosis/Problems Diagnosis/Problems (1) PRES (posterior reversible encephalopathy syndrome) Status: Acute (2) History of DVT (deep vein thrombosis) Status: Chronic (3) Hypertensive emergency Status: Acute (4) Coronary artery disease Status: Chronic Qualifiers: Coronary Disease-Associated Artery/Lesion type: [place] artery [place] vs. 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
--- NOTE | 2017-10-02 14:38 | Consultation-Cardiology ---
HPI-Cardiology Cardiology Consultation: Date of Consultation 10/02/17 Time Seen by Provider: 14:10 Date of Admission Attending Physician Mary Fragoso MD Admitting Physician Mary Fragoso MD Consulting Physician TRELL GERONIMO MD, MA, FACP, FACC, FSCAI, CCDS Physician requesting consult: Dr Toya Pedro HPI: Chief Complaint: Reason for consultation: Hypertension 67 yo woman admitted to Dr Fragoso/Dr Pedro service on 09/30/17 with marked hypertension (222/147) and with mental status changes, including confusion and garbled speech and gen weakness. Has been treated for hypertension with iv agents and mental status has improved. Currently, does not report any cp or palp or syncope. Does not recall the events of the day of presentation. Denies focal weakness. Denies shortness of breath. No new ankle swelling Review of Systems-Cardiology Review of Systems Constitutional: As described under HPI Eyes: No vision change Ears/Nose/Throat: No ear discharge, No nasal drainage, No recent hearing loss Respiratory: As described under HPI Cardiovascular: As described under HPI Gastrointestinal: constipation (chronic); No diarrhea, No nausea, No vomiting Genitourinary: No dysuria, No hematuria, No urine frequency changes : No Musculoskeletal: back pain (chronic) Skin: No rash, No ulcerations Psychiatric/Neurological: As described under HPI; No focal weakness, No syncope Hematologic: No bleeding abnormalities AIS-[id number]-Mfhfrf Hx Patient Social History Alcohol Use: Denies Use Recreational Drug Use: No Smoking Status: Never a Smoker Recent Foreign Travel: No Recent Infectious Disease Expo: No Hospitalization with Isolation: Denies Physical Abuse Screen: No Sexual Abuse: No Immunizations Up To Date Tetanus Booster (TDap): Unknown Date of Pneumonia Vaccine: Feb 20, 2017 Date of Influenza Vaccine: Feb 06, 2017 Past Medical History PMH As described under Assessment. Family Medical History Family History: Alzheimer's disease 19 MOTHER Cardiovascular disease Cataract 19 MOTHER Cataracts Congestive heart failure 19 FATHER Dementia 19 MOTHER Dementia 19 MOTHER Diabetes mellitus Family history: Allergy 19 FATHER 19 MOTHER Family history: Alzheimer's disease 19 MOTHER Family history: Cardiovascular disease 19 MOTHER Family history: Diabetes mellitus G8 BROTHER G8 BROTHER G8 SISTER Family history: Hypertension 19 FATHER Hearing loss G8 BROTHER Heart disease 19 FATHER G8 BROTHER G8 BROTHER G8 SISTER Hypertension 19 FATHER 19 MOTHER G8 BROTHER Infertile 19 FATHER 19 MOTHER G8 BROTHER G8 BROTHER G8 SISTER Myocardial infarction 19 FATHER Myocardial infarction 19 FATHER Psychotic disorder 19 FATHER Severe allergy G8 BROTHER G8 BROTHER Stroke 19 FATHER No Family History of: AIDS Abdominal aortic aneurysm Abdominal aortic aneurysm Leonard's disease Leonard's disease Alcoholism Alcoholism Aphasia Aphasia Arthritis Asthma Cancer Cancer of colon Cancer of mouth Chest pain Colon cancer Completed stroke Congenital disease Congenital heart disease Congenital heart disease Coronary thrombosis Cystic fibrosis Cystic fibrosis Dysphagia Family history: Arthritis Family history: Asthma Family history: Breast disease Family history: Coronary thrombosis Family history: Gastrointestinal disease Family history: Glaucoma Family history: Osteoporosis Family history: Thyroid disorder Fibrocystic disease of breast Gastroenteritis Glaucoma Headache Headache disorder Hereditary disease History of - anemia History of - disorder History of - respiratory disease History of drug abuse Human immunodeficiency virus (HIV) seropositivity Hypercholesterolemia Hypercholesterolemia Kidney disease Malignant neoplasm of lung Neoplasm Not obtainable due to adoption Osteoporosis Parkinson's disease Parkinson's disease Prostate cancer Psychosocial problem Seizure disorder Seizure disorder Thyroid disease Tuberculosis Tuberculosis Visual disorder Visual impairment Allergies and Home Medications Allergies Coded Allergies: Bacitracin Zinc (Unverified Allergy, Unknown, 07/11/17) Penicillins (Unverified Allergy, Unknown, HAS RECEIVED ROCEPHIN DURING PREVIOUS ADMIT, 07/11/17) bacitracin (Unverified Allergy, Unknown, 07/11/17) colistimethate sodium (Unverified Allergy, Unknown, 07/11/17) gramicidin D (Unverified Allergy, Unknown, 07/11/17) neomycin sulfate (Unverified Allergy, Unknown, 07/11/17) polymyxin B (Unverified Allergy, Unknown, 07/11/17) polymyxin B sulfate (Unverified Allergy, Unknown, 07/11/17) pramoxine HCl (Unverified Allergy, Unknown, 07/11/17) Home Medications Arginine 2,000 Mg Powd.pack, 2,000 MG PO TID, (Reported) Aspirin 81 Mg Tablet.dr, 81 MG PO HS, (Reported) Brinzolamide/Brimonidine Tart 8 Ml Drops.susp, 1 DROPS OU BID, (Reported) Calcium Carbonate/Vitamin D3 1 Each Tablet, 1 TAB PO TID, (Reported) Carboxymethylcellulos/Glycerin 15 Ml Drops, 15 ML OP Q4H PRN for DRY EYES, ( Reported) Cholecalciferol (Vitamin D3) 5,000 Unit Capsule, 5,000 UNITS PO HS, (Reported) Clopidogrel Bisulfate 75 Mg Tablet, 75 MG PO HS, (Reported) Darbepoetin Eliel in Polysorbat 10 Mcg/0.4 Ml Syringe, 20 MCG IJ every 2 weeks, ( Reported) Diphenoxylate HCl/Atropine 1 Each Tablet, 1 EACH PO QID PRN for DIARRHEA, ( Reported) Flaxseed Oil 1,000 Mg Capsule, 1,000 MG PO DAILY, (Reported) Gabapentin 100 Mg Capsule, 100 MG PO TID, (Reported) Insulin Aspart 300 Units/3 Ml Solution, 9 UNITS SC AC, (Reported) Insulin Detemir 100 Unit/1 Ml Insuln.pen, 20 UNITS SC BID, (Reported) Losartan Potassium 100 Mg Tablet, 100 MG PO HS, (Reported) Magnesium Oxide 250 Mg Tablet, 250 MG PO HS, (Reported) Metoprolol Succinate 50 Mg Tab.er.24h, 50 MG PO DAILY Prescribed by: MARY FRAGOSO on 08/21/17 1023 Metronidazole 500 Mg Tablet, 500 MG PO TID, (Reported) Multivitamin 1 Each Tablet, 1 TAB PO HS, (Reported) Walling-3/Dha/Epa/Fish Oil 1 Each Capsule, 1,000 MG PO TID, (Reported) Rosuvastatin Calcium 20 Mg Tablet, 20 MG PO HS, (Reported) Torsemide 100 Mg Tablet, 100 MG PO DAILY PRN for swelling, (Reported) Patient Home Medication List Home Medication List Reviewed: Yes Physical Exam-Cardiology Physical Exam Vital Signs/I&O 10/03/17 10/03/17 10/03/17 10/03/17 03:15 03:30 03:45 04:00 Pulse 53 50 51 Resp 23 18 10 B/P (MAP) 141/71 (94) 144/67 (92) 143/75 (97) Pulse Ox 100 100 95 98 O2 Delivery Nasal Cannula Nasal Cannula Nasal Cannula Nasal Cannula O2 Flow Rate 3.00 3.00 3.00 3.00 10/03/17 10/03/17 10/03/17 10/03/17 04:00 04:15 04:30 04:45 Pulse 50 51 48 48 Resp 17 17 19 18 B/P (MAP) 124/65 (84) 133/67 (89) 129/64 (85) 119/61 (80) Pulse Ox 93 96 90 91 O2 Delivery Nasal Cannula Nasal Cannula Nasal Cannula Nasal Cannula O2 Flow Rate 3.00 3.00 3.00 3.00 10/03/17 10/03/17 10/03/17 10/03/17 05:00 05:15 05:30 05:45 Pulse 47 47 47 46 Resp 16 17 17 16 B/P (MAP) 113/62 (79) 111/56 (74) 117/69 (85) 128/65 (86) Pulse Ox 91 92 94 95 O2 Delivery Nasal Cannula Nasal Cannula Nasal Cannula Nasal Cannula O2 Flow Rate 3.00 3.00 3.00 3.00 10/03/17 10/03/17 10/03/17 10/03/17 06:00 06:15 06:30 06:45 Pulse 47 47 49 48 Resp 16 16 16 16 B/P (MAP) 129/67 (87) 122/63 (82) 118/64 (82) 124/62 (82) Pulse Ox 95 94 95 90 O2 Delivery Nasal Cannula Nasal Cannula Nasal Cannula Nasal Cannula O2 Flow Rate 3.00 3.00 3.00 3.00 10/03/17 10/03/17 10/03/17 10/03/17 07:00 07:00 08:00 08:00 Pulse 50 50 52 Resp 17 9 B/P (MAP) 111/92 (98) 135/70 (91) Pulse Ox 97 96 O2 Delivery Nasal Cannula Nasal Cannula Nasal Cannula O2 Flow Rate 3.00 3.00 3.00 10/03/17 10/03/17 10/03/17 10/03/17 08:00 09:00 09:22 10:00 Temp 97.8 Pulse 56 56 Resp 19 20 B/P (MAP) 168/79 (108) 155/81 (105) Pulse Ox 100 96 O2 Delivery Nasal Cannula Nasal Cannula Nasal Cannula Nasal Cannula O2 Flow Rate 3.00 3.00 3.00 3.00 10/03/17 10/03/17 10/03/17 10/03/17 11:00 12:00 12:04 13:13 Temp 97.0 Pulse 52 53 Resp 11 18 B/P (MAP) 138/70 (92) 144/74 (97) Pulse Ox 95 99 O2 Delivery Nasal Cannula Nasal Cannula Nasal Cannula Nasal Cannula O2 Flow Rate 3.00 3.00 3.00 3.00 10/03/17 14:00 Temp 97.1 Pulse 54 Resp 18 B/P (MAP) 139/76 (97) Pulse Ox 98 O2 Delivery Nasal Cannula O2 Flow Rate 3.00 10/03/17 00:00 Intake Total 630 ml Output Total 575 ml Balance 55 ml Capillary Refill : Less Than 3 Seconds Constitutional: AAO x 3, well-developed, well-nourished, other (obese) HEENT: PERRL, EOMI; No xanthelasmas are seen Neck: carotid pulses are 2 + bilaterally, with good upstrokes Respiratory: No accessory muscle use; other (good bilat air entry; no rales) Cardiovascular: regular rate-rhythm, S1 and S2, systolic murmur (soft ALEC at card base) Gastrointestinal: No tender; soft; No guarding, No rebound; audible bowel sounds Extremities: No clubbing, No cyanosis, No significant edema Neurologic/Psychiatric: oriented x 3, other (She appears to be moving all limbs equally) Skin: No rash on exposed areas, No ulcerations on exposed areas Data Review Labs Laboratory Tests 10/02/17 16:00: Glucometer 331H 10/02/17 20:27: Glucometer 280H 10/03/17 02:32: White Blood Count 8.1, Red Blood Count 3.41L, Hemoglobin 9.9L, Hematocrit 32L, Mean Corpuscular Volume 92, Mean Corpuscular Hemoglobin 29, Mean Corpuscular Hemoglobin Concent 31L, Red Cell Distribution Width 13.9, Platelet Count 222, Mean Platelet Volume 9.6, Neutrophils (%) (Auto) 62, Lymphocytes (%) (Auto) 25, Monocytes (%) (Auto) 11, Eosinophils (%) (Auto) 2, Basophils (%) (Auto) 0, Neutrophils # (Auto) 5.1, Lymphocytes # (Auto) 2.0, Monocytes # (Auto) 0.9, Eosinophils # (Auto) 0.1, Basophils # (Auto) 0.0, Sodium Level 137, Potassium Level 4.5, Chloride Level 106, Carbon Dioxide Level 21, Anion Gap 10, Blood Urea Nitrogen 58H, Creatinine 2.47H, Estimat Glomerular Filtration Rate 20, BUN/ Creatinine Ratio 23, Glucose Level 202H, Calcium Level 8.4L, Phosphorus Level 4.2, Magnesium Level 1.9 10/03/17 11:16: Glucometer 175H Microbiology 09/30/17 MRSA Screen - Final, Complete A/P-Cardiology Assessment/Admission Diagnosis Uncontrolled hypertension Hypertensive encephalopathy vs CVA (managed by Dr Pedro) Coronary artery disease with a history of coronary stenting in early [address] Hairston. The patient is stated to have received Promus 2.25 x 32 mm stent in the distal left anterior descending and Promus 2.25 x 28 mm stent in the left circumflex. These stents were patent on last cath of 03/25/14, but she underwent additional stenting: distal LAD with MiniVision 2x12 and proximal first diagonal with Promus Mike 2.5x12. The RCA was dominant and with mild plaques at the time of last cath of 03/25/14. LVEDP was mildly elevated. CAD is currently clinically stable. Last MPI of 03/22/16 showed no evidence of myocard ischemia or infarction, normal wall motion and LVEF 65% Echo of 03/21/16 was a technically diffficult study, but showed LVEF 65%, tirvial to mild MR & TR, mild AoV sclerosis w/o stenosis, PASP WNL H/o oteomyelitis of the R great toe managed by Dr Alex of the [facility] in [place], [place] Normal ABIs on 02/24/16 Carotid arterial disease with history of right carotid endarterectomy. Last carotid ultrasound of 07/24/17 showed 60-79% R ICA and less than 40% L ICA stenoses Maturity onset diabetes mellitus. Hyperlipidemia being treated with atorvastatin. Chronic kidney disease, stage IV, being managed by Dr Sarmad Varghese. Chronic anemia, likely related to chronic kidney disease, managed by Dr Augustin. H/o urinary tract infections, being managed by her pcp History of chronic, recurrent deep venous thrombosis. History of inferior vena cava placement by Dr. Duvall in September 2011. History of left venous port placement by Dr. Duvall. The patient is a Jehovahs Witness and does not wish to ever receive any blood transfusions and is not, therefore, considered an ideal candidate for oral anticoagulation Chronic generalized body pains, including chest pains, non-specific, unchanged Chronic leg swelling and stasis dermatitis, likely related to venous insufficiency and calcium channel donna therapy, unchanged Obesity with hypoventilation syndrome; BMI 52 Isolated PACs recorded on Event Monitor transmissions of Mar 2014. Sleep apnea syndrome, being managed by Dr Fernandez Chronic back pain Discussion and Recomendations * Complex management due to multiple comorbidities * Change anti-hypertensive regimen to oral * Monitor labs * Resume antiplatelet therapy if no contraindication and if ok with the Med Svce Clinical Quality Measures DVT/VTE Risk/Contraindication: Risk Factor Score Per Nursin RFS Level Per Nursing on Admit: 4+=Very High Stroke: Symptoms onset unknown: Yes Physician Assessment Physician Assessment Pt seen and note done on 10/02/17. Note signed on 10/03/17 TRELL GERONIMO MD FACP FACC CCDS October 02, 2017 14:38
[2017-10-02] MEDS ORDERED: meTOprolol SUCCINATE 100 MG (TOPROL XL) TAB PO NR (14:49)
[2017-10-02] MEDS: amLODIPine 10 MG (NORVASC) TAB PO NR ×2 (14:57→15:04)
[2017-10-02] MEDS ORDERED: hydrALAZINE (APRESOLINE) 25 MG TAB PO PRN (15:00)
[2017-10-02] MEDS: doxAzosin 2 MG (CARDURA) TAB PO SCH ×2 (16:06→20:28)
[2017-10-02] MEDS: ROSUVASTATIN 20 MG (CRESTOR) TABLET PO SCH (20:28)
[2017-10-02] MEDS: VITAMIN D3 5,000 UNITS (CHOLECALCIFEROL ) CAPSULE PO SCH (20:28)
[2017-10-02] MEDS: LOSARTAN 100 MG (COZAAR) TABLET PO SCH (20:28)
[2017-10-02] MEDS: ASPIRIN E.C. 81 MG (ECOTRIN) TAB PO SCH (20:28)
[2017-10-02] MEDS: ACETAMINOPHEN 500 MG TAB (TYLENOL) PO PRN (20:29)
[2017-10-02] MEDS ORDERED: doxAzosin 2 MG (CARDURA) TAB PO SCH (21:00)
[2017-10-02] MEDS: LACTULOSE SYRUP 10GM/15ML (ENULOSE) 30ML UDC PO SCH (21:00)
[2017-10-02] MEDS: POLYETHYLENE GLYCOL 17 GM (MIRALAX) PACK PO SCH (21:00)
[2017-10-03] VITALS (37 sets, daily range): BP systolic 108–168; BP diastolic 56–92
[2017-10-03 02:43] LABS: BASOPHILS % (AUTO) 0 % (0-10); EOSINOPHILS # (AUTO) 0.1 10^3/uL (0.0-0.3); EOSINOPHILS % (AUTO) 2 % (0-10); HEMATOCRIT 32 % (35-52); HEMOGLOBIN 9.9 G/DL (11.5-16.0); LYMPHOCYTES % (AUTO) 25 % (12-44); MEAN CORPUSCULAR HEMOGLOBIN 29 PG (25-34); MEAN CORPUSCULAR HGB CONC 31 G/DL (32-36); MEAN CORPUSCULAR VOLUME 92 FL (80-99); MEAN PLATELET VOLUME 9.6 FL (7.4-10.4); MONOCYTES # (AUTO) 0.9 X 10^3 (0.0-1.0); MONOCYTES % (AUTO) 11 % (0-12); NEUTROPHILS # (AUTO) 5.1 X 10^3 (1.8-7.8); NEUTROPHILS % (AUTO) 62 % (42-75); PLATELET COUNT 222 10^3/uL (130-400); RED BLOOD COUNT 3.41 10^6/uL (4.35-5.85); RED CELL DISTRIBUTION WIDTH 13.9 % (10.0-14.5); WHITE BLOOD COUNT 8.1 10^3/uL (4.3-11.0)
[2017-10-03 02:55] LABS: CALCIUM 8.4 MG/DL (8.5-10.1); CREATININE SERUM 2.47 MG/DL (0.60-1.30); MAGNESIUM 1.9 MG/DL (1.8-2.4); PHOSPHORUS 4.2 MG/DL (2.3-4.7); POTASSIUM 4.5 MMOL/L (3.6-5.0)
[2017-10-03] MEDS: POTASSIUM CL 10MEQ/50ML IVPB 50 ML IV SCH (06:44)
[2017-10-03] MEDS: CATHETER FLUSH 10 ML SYR IV SCH ×3 (06:44→22:07)
[2017-10-03] MEDS: MAGNESIUM 1 GM/100 ML IVPB 100 ML IV SCH (06:45)
[2017-10-03] MEDS: KCL 20 MEQ TAB (K-DUR) PO SCH (06:45)
[2017-10-03] MEDS: inSUlin ASPART (NovoLOG) 1 UNIT/0.01 ML (CHARGE PER UNIT) SC SCH ×5 (07:51→22:06)
[2017-10-03] MEDS: ENOXAPARIN 40 MG/0.4 ML (LOVENOX) SYR SQ SCH (08:45)
[2017-10-03] MEDS: meTOprolol SUCCINATE 100 MG (TOPROL XL) TAB PO SCH (08:46)
[2017-10-03] MEDS: inSUlin DETERMIR 1 UNIT/0.01 ML (LEVEMIR) CHARGE PER UNIT SQ SCH ×2 (08:46→22:07)
[2017-10-03] MEDS: CLOPIDOGREL 75 MG (PLAVIX) TABLET PO SCH (08:46)
[2017-10-03] MEDS: doxAzosin 2 MG (CARDURA) TAB PO SCH ×2 (08:46→21:30)
[2017-10-03] MEDS: GABAPENTIN 100 MG (NEURONTIN) CAP PO SCH ×3 (08:46→22:05)
[2017-10-03] MEDS: LACTULOSE SYRUP 10GM/15ML (ENULOSE) 30ML UDC PO SCH ×2 (08:49→22:05)
[2017-10-03] MEDS: POLYETHYLENE GLYCOL 17 GM (MIRALAX) PACK PO SCH ×2 (08:49→22:06)
[2017-10-03] MEDS ORDERED: amLODIPine 10 MG (NORVASC) TAB PO SCH (09:00)
--- NOTE | 2017-10-03 09:21 | Diagnostic Imaging Report ---
INDICATION: Hypertension crisis. COMPARISON: 10/02/2017. FINDINGS: Upright portable view of the chest is obtained. Right central line is unchanged. Mild cardiomegaly is unchanged. There is no central venous congestion. There is no pneumothorax or pleural fluid suspected. Some minimal scarring on the right is unchanged. Lungs are otherwise clear. IMPRESSION: Stable mild cardiomegaly. No new or acute abnormality is demonstrated when compared to prior study. Dictated by: Dictated on workstation # [id number]
--- NOTE | 2017-10-03 09:25 | Progress Note-Cardiology ---
Cardiology SOAP Progress Note Subjective: Sitting up in bed. C/O headache this morning, mild in intensity. No c/o CP, palpitations. C/O mild weakness in her left hand/arm which she feels has improved, but is still present. C/O some difficulty swallowing at times yesterday. Objective: I&O/Vital Signs 10/03/17 10/03/17 10/03/17 10/03/17 03:15 03:30 03:45 04:00 Pulse 53 50 51 Resp 23 18 10 B/P (MAP) 141/71 (94) 144/67 (92) 143/75 (97) Pulse Ox 100 100 95 98 O2 Delivery Nasal Cannula Nasal Cannula Nasal Cannula Nasal Cannula O2 Flow Rate 3.00 3.00 3.00 3.00 10/03/17 10/03/17 10/03/17 10/03/17 04:00 04:15 04:30 04:45 Pulse 50 51 48 48 Resp 17 17 19 18 B/P (MAP) 124/65 (84) 133/67 (89) 129/64 (85) 119/61 (80) Pulse Ox 93 96 90 91 O2 Delivery Nasal Cannula Nasal Cannula Nasal Cannula Nasal Cannula O2 Flow Rate 3.00 3.00 3.00 3.00 10/03/17 10/03/17 10/03/17 10/03/17 05:00 05:15 05:30 05:45 Pulse 47 47 47 46 Resp 16 17 17 16 B/P (MAP) 113/62 (79) 111/56 (74) 117/69 (85) 128/65 (86) Pulse Ox 91 92 94 95 O2 Delivery Nasal Cannula Nasal Cannula Nasal Cannula Nasal Cannula O2 Flow Rate 3.00 3.00 3.00 3.00 10/03/17 10/03/17 10/03/17 10/03/17 06:00 06:15 06:30 06:45 Pulse 47 47 49 48 Resp 16 16 16 16 B/P (MAP) 129/67 (87) 122/63 (82) 118/64 (82) 124/62 (82) Pulse Ox 95 94 95 90 O2 Delivery Nasal Cannula Nasal Cannula Nasal Cannula Nasal Cannula O2 Flow Rate 3.00 3.00 3.00 3.00 10/03/17 10/03/17 10/03/17 10/03/17 07:00 07:00 08:00 08:00 Pulse 50 50 52 Resp 17 9 B/P (MAP) 111/92 (98) 135/70 (91) Pulse Ox 97 96 O2 Delivery Nasal Cannula Nasal Cannula Nasal Cannula O2 Flow Rate 3.00 3.00 3.00 10/03/17 10/03/17 10/03/17 10/03/17 08:00 09:00 09:22 10:00 Temp 97.8 Pulse 56 56 Resp 19 20 B/P (MAP) 168/79 (108) 155/81 (105) Pulse Ox 100 96 O2 Delivery Nasal Cannula Nasal Cannula Nasal Cannula Nasal Cannula O2 Flow Rate 3.00 3.00 3.00 3.00 10/03/17 10/03/17 10/03/17 10/03/17 11:00 12:00 12:04 13:13 Temp 97.0 Pulse 52 53 Resp 11 18 B/P (MAP) 138/70 (92) 144/74 (97) Pulse Ox 95 99 O2 Delivery Nasal Cannula Nasal Cannula Nasal Cannula Nasal Cannula O2 Flow Rate 3.00 3.00 3.00 3.00 10/03/17 14:00 Temp 97.1 Pulse 54 Resp 18 B/P (MAP) 139/76 (97) Pulse Ox 98 O2 Delivery Nasal Cannula O2 Flow Rate 3.00 10/03/17 00:00 Intake Total 630 ml Output Total 575 ml Balance 55 ml Weight (Pounds): 314 Weight (Ounces): 5.0 Weight (Calculated Kilograms): 142.507076 Constitutional: AAO x 3, well-developed, well-nourished Respiratory: No accessory muscle use, No respiratory distress; chest expansion is symmetric, chest is bilaterally symmetric, lungs clear to auscultation, other (good AE bilat) Cardiovascular: regular rate-rhythm; No JVD; S1 and S2 Gastrointestional: No tender; soft, round, audible bowel sounds Genital/Rectal: other (Urinary catheter to DD; clear, yellow urine) Extremities: swelling (mild bilat LE edema) Neurologic/Psychiatric: alert, other (delayed speech, but appropriate) Skin: warm/dry; No rash, No ulcerations Results/Procedures: Labs Laboratory Tests 10/02/17 16:00: Glucometer 331H 10/02/17 20:27: Glucometer 280H 10/03/17 02:32: White Blood Count 8.1, Red Blood Count 3.41L, Hemoglobin 9.9L, Hematocrit 32L, Mean Corpuscular Volume 92, Mean Corpuscular Hemoglobin 29, Mean Corpuscular Hemoglobin Concent 31L, Red Cell Distribution Width 13.9, Platelet Count 222, Mean Platelet Volume 9.6, Neutrophils (%) (Auto) 62, Lymphocytes (%) (Auto) 25, Monocytes (%) (Auto) 11, Eosinophils (%) (Auto) 2, Basophils (%) (Auto) 0, Neutrophils # (Auto) 5.1, Lymphocytes # (Auto) 2.0, Monocytes # (Auto) 0.9, Eosinophils # (Auto) 0.1, Basophils # (Auto) 0.0, Sodium Level 137, Potassium Level 4.5, Chloride Level 106, Carbon Dioxide Level 21, Anion Gap 10, Blood Urea Nitrogen 58H, Creatinine 2.47H, Estimat Glomerular Filtration Rate 20, BUN/ Creatinine Ratio 23, Glucose Level 202H, Calcium Level 8.4L, Phosphorus Level 4.2, Magnesium Level 1.9 10/03/17 11:16: Glucometer 175H Microbiology 09/30/17 MRSA Screen - Final, Complete A/P: Assessment: Uncontrolled hypertension Hypertensive encephalopathy vs CVA (managed by Dr Pedro) Coronary artery disease with a history of coronary stenting in early [address] Hairston. The patient is stated to have received Promus 2.25 x 32 mm stent in the distal left anterior descending and Promus 2.25 x 28 mm stent in the left circumflex. These stents were patent on last cath of 03/25/14, but she underwent additional stenting: distal LAD with MiniVision 2x12 and proximal first diagonal with Promus Mike 2.5x12. The RCA was dominant and with mild plaques at the time of last cath of 03/25/14. LVEDP was mildly elevated. CAD is currently clinically stable. Last MPI of 03/22/16 showed no evidence of myocard ischemia or infarction, normal wall motion and LVEF 65% Echo of 03/21/16 was a technically diffficult study, but showed LVEF 65%, tirvial to mild MR & TR, mild AoV sclerosis w/o stenosis, PASP WNL H/o oteomyelitis of the R great toe managed [facility] [place], [place] Normal ABIs on 02/24/16 Carotid arterial disease with history of right carotid endarterectomy. Last carotid ultrasound of 07/24/17 showed 60-79% R ICA and less than 40% L ICA stenoses Maturity onset diabetes mellitus. Hyperlipidemia being treated with atorvastatin. Chronic kidney disease, stage IV, being managed by Dr Sarmad Varghese. Chronic anemia, likely related to chronic kidney disease, managed by Dr Augustin. H/o urinary tract infections, being managed by her pcp History of chronic, recurrent deep venous thrombosis. History of inferior vena cava placement by Dr. Duvall in September 2011. History of left venous port placement by Dr. Duvall. The patient is a Jehovahs Witness and does not wish to ever receive any blood transfusions and is not, therefore, considered an ideal candidate for oral anticoagulation Chronic generalized body pains, including chest pains, non-specific, unchanged Chronic leg swelling and stasis dermatitis, likely related to venous insufficiency and calcium channel donna therapy, unchanged Obesity with hypoventilation syndrome; BMI 52 Isolated PACs recorded on Event Monitor transmissions of Mar 2014. Sleep apnea syndrome, being managed by Dr Fernandez Chronic back pain Plan: Complex management due to multiple comorbidities BP improved with current regimen Monitor labs Antiplatelet tx has been resumed Cr worsening (2.47 today) - monitor lab closely C/O some dysphagia yesterday - ST eval ordered Physician Assessment Physician Assessment No cp or palp or syncope. Some gen weakness, including a feeling of tingling and weakness and pain in the L arm and the R leg Lungs: clear Cor: reg Ext: chronic, mod, nonpitting edema A&R * As documented in our note above that I updated (italics) and as noted below * I reviewed with her her CV issues with her the adjustments made to her antihypertensive regimen * Monitor labs Clinical Quality Measures Stroke: Symptoms onset unknown: Yes CODIE GALLARDO DIRECTOR ENGINEERING October 03, 2017 09:25 TRELL GERONIMO MD FACP [facility] CCDS October 03, 2017 15:09
--- NOTE | 2017-10-03 09:49 | ST Dysphagia Evaluation ---
Speech Evaluation-General Medical Diagnosis Hypertensive Emergency Onset Date: September 30, 2017 Therapy Diagnosis Therapy Diagnosis: Oropharyngeal Swallow WNL Precautions Precautions/Isolations: Fall Prevention, Standard Precautions Referral Referring Physician: Dr. Iris aPlomo Reason for Referral: Evaluation/Treatment Clinical Bedside Swallowing Evaluation Medical History Pertinent Medical History: CAD, DM, HTN, OA Current History The patient was admitted to [facility] with "stroke-like" symptoms on September 30, 2017. Speech PLF/Current-Dysphagia Prior Level of Function The patient denied current challenges with swallowing or signs/symptoms of aspiration with any consistency she currently consumes. The patient reports she consumes a regular diet with thin liquids at home. Subjective The patient was seated upright in bed, independently sipping water from a straw upon entrance. The patient greeted the clinician and was agreeable to participation in the dysphagia evaluation. The patient answered all questions appropriately and did not demonstrate overt signs of aphasia or dysarthria throughout informal conversation. Per patient, she is not experiencing any difficulty with any consistency she is consuming. The patient stated she ate raisin brain and eggs for breakfast. Cognitive Status Patient Orientation: Person, Place, Time, Situation Oral Motor Skills Dentition: Natural Current Food Consistancy: Regular, Thin Liquids Ability to Follow Directions: Good Oral Expression Ability: No Impairment Voice Voice Phonatory-Based Quality: Normal Voice Pitch: Normal Voice Loudness: Normal Face Facial Symmetry: Symmetrical Oral-Facial Assessment Oral-Facial Dentition: Normal Labial Seal Description: Normal Smile: Normal Puff Cheeks: Normal Lingual Protrusion: Normal Lingual ROM: Normal Lingual Strength: Normal Pharynx Velopharyngeal Move.: Normal Volitional Dry Swallow: Yes Dysphagia Evaluation Consistencies Presented: Regular, Thin Liquid, Pureed No oral impairments were noted throughout the evaluation. No pharyngeal impairments were noted throughout the evaluation. - Thin Liquid, Puree, Solid: No signs/symptoms of aspiration or laryngeal penetration were demonstrated with any consistency the patient consumed. The patient's vocal quality remained clear throughout the session. Dietary Recommendations: Regular Liquid Recommendations: Thin Swallowing Precautions: Small Bites and Sips, Sitting Upright 90 Degrees Dysphagia Evaluation Summary The patient demonstrated an oropharyngeal swallow function within normal limits. Speech-Plan Treatment Plan Speech Therapy Treatment Plan: Discontinue ST Evaluation, only. Frequency: Modified Program (IRF) (No ST warranted.) Estimated Hrs Per Day: Other (No ST warranted.) Rehab Potential: Guarded Safety Risks/Education Teaching Recipient: Patient Teaching Methods: Discussion Response to Teaching: Verbalize Understanding Education Topics Provided: Results, Recommendations, Plan of Care Time Speech Therapy Time In: 09:30 Speech Therapy Time Out: 09:50 Total Billed Time: 20 Billed Treatment Time 1RACHEL ELIZAB[address] ST October 03, 2017 09:49
[2017-10-03] MEDS: ACETAMINOPHEN 500 MG TAB (TYLENOL) PO PRN ×2 (10:20→19:57)
--- NOTE | 2017-10-03 10:30 | Progress Note-Hospitalist ---
Subjective HPI/CC On Admission Date Seen by Provider: October 03, 2017 Time Seen by Provider: 09:30 Subjective/Events-last exam Patient has a headache and multiple somatic complaints Blood pressure improved Cardene drip has been discontinued I appreciate cardiology consultation Poor prognosis remains due to chronic debility Will return back to the half-way hopefully tomorrow to [facility] where she resides Review of Systems General: Fatigue, Malaise Objective Exam Vital Signs Vital Signs Date Time Temp Pulse Resp B/P (MAP) Pulse Ox O2 Delivery O2 Flow Rate FiO2 10/03/17 10:00 56 20 155/81 (105) 96 Nasal Cannula 3.00 10/03/17 08:00 97.8 Capillary Refill : Less Than 3 Seconds General Appearance: No Apparent Distress, WD/WN, Chronically ill, Obese Respiratory: Lungs Clear, Normal Breath Sounds Cardiovascular: Regular Rate, Rhythm, No Edema Neurologic/Psychiatric: Alert, No Motor/Sensory Deficits, Depressed Affect, Other (poor recall) Results/Procedures Lab Laboratory Tests 10/03/17 02:32 Patient resulted labs reviewed. Assessment/Plan Assessment and Plan Assess & Plan/Chief Complaint Assessment per Dr Palomo: (1) PRES (posterior reversible encephalopathy syndrome) Status: Acute Assessment & Plan: Suspected based on clinical picture with near obtundation on arrival and now completely normal neurologic status after cardizem drip overnight. Cardizem drip d/c overnight, blood pressure starting to increase again this am, will resume home metoprolol and losartan and if still elevated, may need to restart drip. CT head done without acute changes, discussed CTA head with [facility] last night and discussed transfer of patient due to CKD and risk of contrast nephropathy, patient's family declined. She is markedly improved this am, continue current management. History of recurrent TIAs, continue clopidogrel. 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 Sliding scale insulin. (5) Obesity hypoventilation syndrome Status: Chronic Assessment & Plan: Chronically supplemental oxygen dependent. (6) Sleep apnea with use of nocturnal bilevel positive airway pressure (BPAP) Status: Chronic Assessment & Plan: Has home machine with her, use when sleeping. (7) Coronary artery disease Status: Chronic Assessment & Plan: Resume home asa, rosuvastatin Qualifiers: Qualified Codes: I25.10 - Atherosclerotic heart disease of [place] coronary artery without angina pectoris (8) DVT prophylaxis Status: Acute Assessment & Plan: Enoxaparin, renally dosed. Maintain ICU status Consult Dr Jasvir urena DC Poor prognosis considering overall debility baseline Transfer to [facility] Diagnosis/Problems Diagnosis/Problems (1) PRES (posterior reversible encephalopathy syndrome) Status: Acute (2) History of DVT (deep vein thrombosis) Status: Chronic (3) Hypertensive emergency Status: Acute (4) Coronary artery disease Status: Chronic Qualifiers: Coronary Disease-Associated Artery/Lesion type: [place] artery [place] vs. 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
[2017-10-03] MEDS: ASPIRIN E.C. 81 MG (ECOTRIN) TAB PO SCH (22:05)
[2017-10-03] MEDS: LOSARTAN 100 MG (COZAAR) TABLET PO SCH (22:05)
[2017-10-03] MEDS: ENOXAPARIN 60 MG/0.6 ML (LOVENOX) SYR SC SCH (22:06)
[2017-10-03] MEDS: VITAMIN D3 5,000 UNITS (CHOLECALCIFEROL ) CAPSULE PO SCH (22:24)
[2017-10-03] MEDS: ROSUVASTATIN 20 MG (CRESTOR) TABLET PO SCH (22:24)
[2017-10-04] VITALS: BP 122/57
[2017-10-04] MEDS: fentaNYL INJECTION 100 MCG/2 ML AMP IV PRN (00:51)
[2017-10-04 04:00] VITALS: BP 176/74
[2017-10-04 05:53] VITALS: BP 176/74
[2017-10-04] MEDS: inSUlin ASPART (NovoLOG) 1 UNIT/0.01 ML (CHARGE PER UNIT) SC SCH ×4 (06:02→21:59)
[2017-10-04] MEDS: CATHETER FLUSH 10 ML SYR IV SCH ×3 (06:22→21:59)
[2017-10-04 06:36] LABS: BASOPHILS % (AUTO) 0 % (0-10); EOSINOPHILS # (AUTO) 0.2 10^3/uL (0.0-0.3); EOSINOPHILS % (AUTO) 2 % (0-10); HEMATOCRIT 31 % (35-52); HEMOGLOBIN 9.7 G/DL (11.5-16.0); LYMPHOCYTES # (AUTO) 1.9 X 10^3 (1.0-4.0); LYMPHOCYTES % (AUTO) 28 % (12-44); MEAN CORPUSCULAR HEMOGLOBIN 29 PG (25-34); MEAN CORPUSCULAR HGB CONC 31 G/DL (32-36); MEAN CORPUSCULAR VOLUME 92 FL (80-99); MEAN PLATELET VOLUME 9.6 FL (7.4-10.4); MONOCYTES # (AUTO) 0.7 X 10^3 (0.0-1.0); MONOCYTES % (AUTO) 10 % (0-12); NEUTROPHILS # (AUTO) 4.1 X 10^3 (1.8-7.8); NEUTROPHILS % (AUTO) 60 % (42-75); PLATELET COUNT 196 10^3/uL (130-400); RED BLOOD COUNT 3.37 10^6/uL (4.35-5.85); RED CELL DISTRIBUTION WIDTH 14.1 % (10.0-14.5); WHITE BLOOD COUNT 6.9 10^3/uL (4.3-11.0)
[2017-10-04 07:01] LABS: CALCIUM 8.6 MG/DL (8.5-10.1); CREATININE SERUM 2.46 MG/DL (0.60-1.30); POTASSIUM 4.5 MMOL/L (3.6-5.0)
[2017-10-04 08:00] VITALS: BP 143/70
[2017-10-04] MEDS: GABAPENTIN 100 MG (NEURONTIN) CAP PO SCH ×3 (08:32→21:59)
[2017-10-04] MEDS: CLOPIDOGREL 75 MG (PLAVIX) TABLET PO SCH (08:32)
[2017-10-04] MEDS: doxAzosin 2 MG (CARDURA) TAB PO SCH ×2 (08:32→21:59)
[2017-10-04] MEDS: inSUlin DETERMIR 1 UNIT/0.01 ML (LEVEMIR) CHARGE PER UNIT SQ SCH ×2 (08:32→21:59)
[2017-10-04] MEDS: LACTULOSE SYRUP 10GM/15ML (ENULOSE) 30ML UDC PO SCH ×2 (08:33→21:36)
[2017-10-04] MEDS: ENOXAPARIN 60 MG/0.6 ML (LOVENOX) SYR SC SCH ×2 (08:33→21:59)
[2017-10-04] MEDS: POLYETHYLENE GLYCOL 17 GM (MIRALAX) PACK PO SCH ×2 (08:33→21:37)
[2017-10-04] MEDS: meTOprolol SUCCINATE 100 MG (TOPROL XL) TAB PO SCH (08:33)
--- NOTE | 2017-10-04 09:16 | Progress Note-Cardiology ---
Cardiology SOAP Progress Note Subjective: Sitting up in a chair at the bedside. States she is feeling better today. Continued c/o numbness and tingling in her right hand and foot. States she is unable to bear weight on her right leg. Objective: I&O/Vital Signs 10/04/17 10/04/17 10/04/17 04:00 08:00 09:52 Temp 96.3 96.5 Pulse 56 51 Resp 18 18 B/P (MAP) 176/74 (108) 143/70 (94) Pulse Ox 97 98 O2 Delivery NIV CPAP NIV CPAP Nasal Cannula O2 Flow Rate 3.00 10/04/17 00:00 Intake Total 440 ml Output Total 701 ml Balance -261 ml Weight (Pounds): 325 Weight (Ounces): 11.2 Weight (Calculated Kilograms): 147.949892 Constitutional: AAO x 3, well-developed, well-nourished Respiratory: No accessory muscle use, No respiratory distress; chest expansion is symmetric, chest is bilaterally symmetric, lungs clear to auscultation, other (good AE bilat) Cardiovascular: regular rate-rhythm; No JVD; S1 and S2 Gastrointestional: No tender; soft, round, audible bowel sounds Genital/Rectal: other (Urinary catheter to DD; clear, yellow urine) Extremities: swelling (mild bilat LE edema) Neurologic/Psychiatric: alert, other (mild weakness of right hand ) Skin: warm/dry; No rash, No ulcerations Results/Procedures: Labs Laboratory Tests 10/03/17 16:04: Glucometer 290H 10/03/17 20:57: Glucometer 288H 10/04/17 05:16: Glucometer 122H 10/04/17 06:20: White Blood Count 6.9, Red Blood Count 3.37L, Hemoglobin 9.7L, Hematocrit 31L, Mean Corpuscular Volume 92, Mean Corpuscular Hemoglobin 29, Mean Corpuscular Hemoglobin Concent 31L, Red Cell Distribution Width 14.1, Platelet Count 196, Mean Platelet Volume 9.6, Neutrophils (%) (Auto) 60, Lymphocytes (%) (Auto) 28, Monocytes (%) (Auto) 10, Eosinophils (%) (Auto) 2, Basophils (%) (Auto) 0, Neutrophils # (Auto) 4.1, Lymphocytes # (Auto) 1.9, Monocytes # (Auto) 0.7, Eosinophils # (Auto) 0.2, Basophils # (Auto) 0.0, Sodium Level 138, Potassium Level 4.5, Chloride Level 107, Carbon Dioxide Level 21, Anion Gap 10, Blood Urea Nitrogen 63H, Creatinine 2.46H, Estimat Glomerular Filtration Rate 20, BUN/ Creatinine Ratio 26, Glucose Level 129H, Calcium Level 8.6 10/04/17 11:31: Glucometer 278H Microbiology 09/30/17 MRSA Screen - Final, Complete A/P: Assessment: Uncontrolled hypertension - improved Hypertensive encephalopathy vs CVA (managed by Dr Pedro) Coronary artery disease with a history of coronary stenting in early [address] Hairston. The patient is stated to have received Promus 2.25 x 32 mm stent in the distal left anterior descending and Promus 2.25 x 28 mm stent in the left circumflex. These stents were patent on last cath of 03/25/14, but she underwent additional stenting: distal LAD with MiniVision 2x12 and proximal first diagonal with Promus Mike 2.5x12. The RCA was dominant and with mild plaques at the time of last cath of 03/25/14. LVEDP was mildly elevated. CAD is currently clinically stable. Last MPI of 03/22/16 showed no evidence of myocard ischemia or infarction, normal wall motion and LVEF 65% Echo of 03/21/16 was a technically difficult study, but showed LVEF 65%, trivial to mild MR & TR, mild AoV sclerosis w/o stenosis, PASP WNL H/o osteomyelitis of the R great toe managed by Dr Alex of the [facility] in [place], [place] Normal ABIs on 02/24/16 Carotid arterial disease with history of right carotid endarterectomy. Last carotid ultrasound of 07/24/17 showed 60-79% R ICA and less than 40% L ICA stenoses Maturity onset diabetes mellitus. Hyperlipidemia being treated with atorvastatin. Chronic kidney disease, stage IV, being managed by Dr Sarmad Varghese. Chronic anemia, likely related to chronic kidney disease, managed by Dr Augustin. H/o urinary tract infections, being managed by her pcp History of chronic, recurrent deep venous thrombosis. History of inferior vena cava placement by Dr. Duvall in September 2011. History of left venous port placement by Dr. Duvall. The patient is a [employer] and does not wish to ever receive any blood transfusions and is not, therefore, considered an ideal candidate for oral anticoagulation Chronic generalized body pains, including chest pains, non-specific, unchanged Chronic leg swelling and stasis dermatitis, likely related to venous insufficiency and calcium channel donna therapy, unchanged Obesity with hypoventilation syndrome; BMI 52 Isolated PACs recorded on Event Monitor transmissions of Mar 2014. Sleep apnea syndrome, being managed by Dr Fernandez Chronic back pain Plan: * Complex management due to multiple comorbidities * Continue current medication regimen * Monitor labs * Plavix and ASA have been continued * Cr stable - continue to monitor * PT/OT per medical services Physician Assessment Physician Assessment No cp or palp or syncope or shortness of breath since admission Lungs: good bilat air entry Cor: reg Ext: mod nonpitting edema of the legs A&R * As documented in our note above that I updated (italics) and as noted below * Monitor labs Clinical Quality Measures Stroke: Symptoms onset unknown: Yes CODIE GALLARDO RN S[employer] ASS[employer]ULT October 04, 2017 09:16 TRELL GERONIMO MD FACP [facility] October 04, 2017 12:30
--- NOTE | 2017-10-04 09:28 | Progress Note-Hospitalist ---
Subjective HPI/CC On Admission Date Seen by Provider: October 04, 2017 Time Seen by Provider: 08:30 Subjective/Events-last exam Patient feels much better today Having bowel movements We'll discontinue catheter today PT and OT will be ordered Inpatient rehabilitation will be ordered Likely will require prison placement Right hip hurts and she did have a fall on the right hip prior to admission Still weak on the right leg so we'll check MRI of the brain that cannot do with IV contrast due to renal failure Overall reviewed meds and labs and patient feels much better She lives alone at [facility] Review of Systems General: Fatigue, Malaise Musculoskeletal: leg pain Neurological: Weakness Objective Exam Vital Signs Vital Signs Date Time Temp Pulse Resp B/P (MAP) Pulse Ox O2 Delivery O2 Flow Rate FiO2 10/04/17 08:00 96.5 51 18 143/70 (94) 98 NIV CPAP 10/04/17 00:00 3.00 Capillary Refill : Less Than 3 Seconds General Appearance: No Apparent Distress, WD/WN, Chronically ill, Obese Respiratory: Lungs Clear Cardiovascular: Regular Rate, Rhythm, No Edema Neurologic/Psychiatric: Alert, Oriented x3, No Motor/Sensory Deficits, Normal Mood/Affect, Motor Weakness (right leg) Results/Procedures Lab Laboratory Tests 10/04/17 06:20 Patient resulted labs reviewed. Assessment/Plan Assessment and Plan Assess & Plan/Chief Complaint Assessment per Dr Palomo: (1) PRES (posterior reversible encephalopathy syndrome) Status: Acute Assessment & Plan: Suspected based on clinical picture with near obtundation on arrival and now completely normal neurologic status after cardizem drip overnight. Cardizem drip d/c overnight, blood pressure starting to increase again this am, will resume home metoprolol and losartan and if still elevated, may need to restart drip. CT head done without acute changes, discussed CTA head with [facility] last night and discussed transfer of patient due to CKD and risk of contrast nephropathy, patient's family declined. She is markedly improved this am, continue current management. History of recurrent TIAs, continue clopidogrel. 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 Sliding scale insulin. (5) Obesity hypoventilation syndrome Status: Chronic Assessment & Plan: Chronically supplemental oxygen dependent. (6) Sleep apnea with use of nocturnal bilevel positive airway pressure (BPAP) Status: Chronic Assessment & Plan: Has home machine with her, use when sleeping. (7) Coronary artery disease Status: Chronic Assessment & Plan: Resume home asa, rosuvastatin Qualifiers: Qualified Codes: I25.10 - Atherosclerotic heart disease of [place] coronary artery without angina pectoris (8) DVT prophylaxis Status: Acute Assessment & Plan: Enoxaparin, renally dosed. right hip pain with h/o fall recently so will check xray Consult Dr Tay is appreciated Maintain close BP monitoring IRF Check MRI brain Plavix NHP? Poor prognosis considering overall debility baseline Diagnosis/Problems Diagnosis/Problems (1) PRES (posterior reversible encephalopathy syndrome) Status: Acute (2) History of DVT (deep vein thrombosis) Status: Chronic (3) Hypertensive emergency Status: Acute (4) Coronary artery disease Status: Chronic Qualifiers: Coronary Disease-Associated Artery/Lesion type: [place] artery [place] vs. 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
[2017-10-04 12:00] VITALS: BP 141/74
--- NOTE | 2017-10-04 12:37 | Diagnostic Imaging Report ---
Right hip at 12:20. Indication: Hip pain. AP and lateral views were obtained. There is no fracture, dislocation or acute bony abnormality evident. There is moderate degenerative disease involving the hip joint. The degenerative changes seem similar to the transitions manager film from the CT abdomen/pelvic exam on 11/09/2011. The soft tissues are unremarkable aside from vascular calcifications. Impression: 1. There is no evidence for an acute bony abnormality. 2. If clinical concern regarding an underlying abnormality persists and further imaging is desired, then MRI would be recommended for further evaluation. Dictated by: Dictated on workstation # [id number]
--- NOTE | 2017-10-04 13:04 | Diagnostic Imaging Report ---
PROCEDURE: MR imaging of the brain without contrast. TECHNIQUE: Multiplanar, multisequence MR imaging of the brain was performed without contrast. INDICATION: Transient ischemic attacks. COMPARISON: Comparison is made with prior MRI brain from 12/22/2010. FINDINGS: The diffusion weighted images demonstrate a tiny focus of restriction in the left frontal lobe. There is a second tiny area of diffusion restriction in the left occipital lobe and a third tiny focus of restriction in the left posterior temporal lobe. Findings are suggestive of small acute microinfarcts. No large territory infarct is seen. Ventricles and sulci are prominent consistent with cerebral atrophy. There is moderate periventricular white matter changes noted consistent with chronic microvascular ischemia. The normal expected flow-voids within the carotid siphons are seen. No acute intra-axial or extra-axial hemorrhage is identified. Corpus callosum is unremarkable. The sella and parasellar structures are unremarkable. IMPRESSION: Findings suggestive of acute microinfarcts left frontal, left posterior parietal and left occipital lobe, perhaps owing to embolic phenomena. No large branch occlusion is seen. No acute intracranial hemorrhage is detected. Note is made of moderate cerebral atrophy with changes of chronic microvascular ischemia. Dr. Toya Pedro was notified of these results. Dictated by: Dictated on workstation # [id number]
--- NOTE | 2017-10-04 14:00 | Physical Therapy Evaluation ---
PT Evaluation-General Medical Diagnosis Admission Date September 30, 2017 at 19:00 Medical Diagnosis: Hypertensive Emergency Onset Date: September 30, 2017 Therapy Diagnosis Therapy Diagnosis: impaired mobility, strength, endurance Height/Weight Height (Feet): 5 Height (Inches): 5.00 Weight (Pounds): 325 Weight (Ounces): 11.2 Precautions Precautions/Isolations: Standard Precautions Referral Physician: Toya Pedro DO Reason for Referral: Evaluation/Treatment Medical History Pertinent Medical History: CAD, DM, HTN, OA Additional Medical History HERNAN on bipap, multiple TIA's, DVT-IVC filter in place, iron deficiency anemia, renal osteodystrophy, surg (cholecystectomy, tonsillectomy, adenoidectomy, carotid endarterectomy, hysterectomy, eye, right foot tumor removal, osteomyelitis left 4th toe) Current History went to ER after neighbor found her unresponsive on her porch. Reviewed History: Yes Social History Home: Single Level Current Living Status: Alone Entry Into Home: Level Entry Prior/Core FIM Prior Level of Function Functional [place] Measure 0=Not Assessed/NA 4=Minimal Assistance 1=Total Assistance 5=Supervision or Setup 2=Maximal Assistance 6=Modified [place] 3=Moderate Assistance 7=Complete [place] Bed Mobility: 6 Transfers (B,C,W/C) (FIM): 6 Gait: 6 Patient used a single point cane and 4 wheeled walker previously. PT Evaluation-Current Subjective Patient in recliner pre tx, agrees to PT, has 5/10 pain in her right hip and low back. Pt/Family Goals to be independent at home Objective Patient Orientation: Person, Place, Situation Attachments: Oxygen ROM/Strength ROM Lower Extremities limited generally due to obesity Strength Lower Extremities 4/5 gross lower extremities Neuromuscular (Tone, Coordination, Reflexes) Patient has intact peripheral vision, good tracking both sides, no abnormal clonus on right side, patient denies visual or hearing changes since her fall. Sensory Hearing: Functional Sensation Right Lower Extremit: Impaired Sensation Left Lower Extremity: Impaired Sensation Lower Extremities Patient has neuropathy, numb feet. Transfers Functional [place] Measure 0=Not Assessed/NA 4=Minimal Assistance 1=Total Assistance 5=Supervision or Setup 2=Maximal Assistance 6=Modified [place] 3=Moderate Assistance 7=Complete [place] Transfers (B, C, W/C) (FIM): 4 Sit to/from Stand: 4 bed t/f WC(FIM only if WC use): 4 Gait Mode of Locomotion: Walk Anticipated Mode of Locomotion: Walk Gait (FIM): 1 Distance: 30' Gait Level of Assist: 4 Gait Persons Needed: 1 Gait Assistive Device: Walker 4 Wheeled Comments/Gait Description Patient ambulated with CGA, steady, no LOB. She did get a little SOB but recovered quickly after sitting. Balance Sitting Static: Normal Sitting Dynamic: Normal Standing Static: Good Standing Dynamic: Good Treatment seated exercises x15 (hip flexion, LAQ, AP) Assessment/Needs Patient has impaired mobility, strength, endurance. She ambulates with a 4 wheeled walker. No LOB with ambulation. Rehab Potential: Fair PT Short Term Goals Short Term Goals Time Frame: Oct 11, 2017 Transfers (B,C,W/C) (FIM): 5 Gait (FIM): 2 Gait Distance Comment: 50' Gait Level of Assist: 5 Gait Assistive Device: Walker 4 Wheeled PT Plan Problem List Problem List: Activity Tolerance, Functional Strength, Safety, Balance, Gait, Transfer, Bed Mobility Treatment/Plan Treatment Plan: Continue Plan of Care Treatment Plan: Bed Mobility, Education, Functional Activity Jaylene, Functional Strength, Gait, Safety, Therapeutic Exercise, Transfers Treatment Duration: Oct 25, 2017 Frequency: 6 times per week Estimated Hrs Per Day: .25 hour per day (15-30') Patient and/or Family Agrees t: Yes Safety Risks/Education Patient Education: Gait Training, Transfer Techniques, Correct Positioning, Safety Issues Teaching Recipient: Patient Teaching Methods: Demonstration, Discussion Response to Teaching: Reinforcement Needed Discharge Recommendations Plan Patient will perform bed mobility and transfer training, balance and endurance training, functional strengthening, stair training, gait training, and education , to improve functional mobility and independence at home. Therapy D/C Recommendations: Home w/ Family Support, Correction (TCU/NH) Time/GCodes Time In: 1335 Time Out: 1354 Total Billed Treatment Time: 19 Total Billed Treatment 1 visit EVAriela 19' JAQUI ELISE PT October 04, 2017 14:00
--- NOTE | 2017-10-04 14:55 | Occupational Therapy Eval ---
OT Evaluation-General/PLF Medical Diagnosis Admission Date September 30, 2017 at 19:00 Medical Diagnosis: Hypertensive Emergency Onset Date: September 30, 2017 Therapy Diagnosis Therapy Diagnosis: weakness, debility, unsteadiness Height/Weight Height (Feet): 5 Height (Inches): 5.00 Weight (Pounds): 325 Weight (Ounces): 11.2 Precautions Precautions/Isolations: Fall Prevention, Standard Precautions, Pressure Ulcer Safety Interventions: None Weight Bear Status Weight Bearing Restriction: Weight Bearing/Tolerated Referral Physician: Toya Pedro DO Referral Reason: Evaluation/Treatment Medical History Pertinent Medical History: CAD, DM, HTN, OA Social History Home: Apartment Current Living Status: Alone Entry Into Home: Level Entry ADL-Prior Level of Function ADL PLOF Comments Pt performed all ADLs with SD with use of 4WW or cane. Pt was independent with all IADLs and was still driving throughout the community prior to hospitalization. DME/Equipment Comments Pt has a walk in shower with grab bars. Drive Self: Yes OT Current Status Subjective Pt alert and up in chair, willing to participate with OT. Pt reports feeling fatigued, and 7/10 pain in right hip/leg region. Pain Numeric Pain Scale: 7 Location: Right Location Body Site: Hip Pain Description: Ache, Dull Mental Status/Objective Attachments: Oxygen (3L cont 02 via NC) Current Upper Extremity ROM Pt's BUE AROM WNL Upper Extremity Sensation Pt reports history of impaired sensation in right hand, however this has resolved. Upper Extremity Strength Pt demonstrates BUE of 3+/5 through gross UE planes of motion. ADL-Treatment Functional [place] Measure 0=Not Assessed/NA 4=Minimal Assistance 1=Total Assistance 5=Supervision or Setup 2=Maximal Assistance 6=Modified [place] 3=Moderate Assistance 7=Complete IndependenceIRFPAI Quality Coding Scale 6 Independent with activity with or without an assistive device 5 Patient requires set up or clean up by helper. Patient completes activity by themselves 4 Supervision or touching assist (CGA). [place] provide cues , steadying assist 3 The helper provides less than half the effort to complete the activity 2 The helper provides more than half the effort to complete the activity 1 Dependent. The helper does all the effort to complete an activity 7 Patient refused to complete or attempt activity 9 The patient did not perform the activity before the current illness or injury 88 Not attempted due to Medical conditions or safety concerns Grooming (FIM): 5 Upper Body Dressing (FIM): 5 Lower Body Dressing (FIM): 4 Toileting (FIM): 4 Transfers (B, C, W/C) (FIM): 4 Toilet/Commode Transfer (FIM): 4 Education OT Patient Education: Energy conservation, Exercise program, Modified ADL techniques, Purpose of tx/functional activities, Reviewed precautions, Rehab process, Safety issues, Transfer techniques Teaching Recipient: Patient Teaching Methods: Demonstration, Discussion Response to Teaching: Verbalize Understanding, Return Demonstration OT Short Term Goals Short Term Goals Time Frame: Oct 11, 2017 Grooming(FIM): 6 Bathing(FIM): 5 Upper Body Dressing(FIM): 6 Lower Body Dressing(FIM): 5 Toileting(FIM): 5 Transfers (B,C,W/C) (FIM): 5 Toilet/Commode Transfer(FIM): 5 1=Demonstrate adherence to instructed precautions during ADL tasks. 2=Patient will verbalize/demonstrate understanding of assistive devices/ modifications for ADL. 3=Patient will improve strength/tolerance for activity to enable patient to perform ADL's. OT [employer] Unit Leader Goals Fdc Goals Time Frame: Oct 25, 2017 Grooming(FIM): 6 Bathing(FIM): 6 Upper Body Dressing(FIM): 6 Lower Body Dressing(FIM): 6 Toileting(FIM): 6 Transfers (B,C,W/C) (FIM): 6 Toilet/Commode Transfer(FIM): 6 Shower Transfer(FIM): 6 1=Demonstrate adherence to instructed precautions during ADL tasks. 2=Patient will verbalize/demonstrate understanding of assistive devices/ modifications for ADL. 3=Patient will improve strength/tolerance for activity to enable patient to perform ADL's. OT Education/Plan Problem List/Assessment Assessment: Decreased Activ Tolerance, Decreased UE Strength, Impaired Funct Balance, Impaired I ADL's, Impaired Self-Care Skills Discharge Recommendations Plan/Recommendations: Continue POC Therapy D/C Recommendations: Acute Rehab Treatment Plan/Plan of Care Patient would benefit from OT for education, treatment and training to promote independence in ADL's, mobility, safety and/or upper extremity function for ADL' s. Plan of Care: ADL Retraining, Functional Mobility, Group Exercise/Act as Ind, UE Funct Exercise/Act Treatment Duration: Oct 25, 2017 Frequency: 5 times per week Estimated Hrs Per Day: .25 hour per day Rehab Potential: Fair Time/GCodes Start Time: 14:40 Stop Time: 15:00 Total Time Billed (hr/min): 40 Billed Treatment Time visit, OSWALDO 20 minutes, FA 20 minutes JASMINE ALEMAN OT October 04, 2017 14:55
[2017-10-04 16:00] VITALS: BP 170/76
[2017-10-04] MEDS: ROSUVASTATIN 20 MG (CRESTOR) TABLET PO SCH (21:58)
[2017-10-04] MEDS: VITAMIN D3 5,000 UNITS (CHOLECALCIFEROL ) CAPSULE PO SCH (21:58)
[2017-10-04] MEDS: ASPIRIN E.C. 81 MG (ECOTRIN) TAB PO SCH (21:59)
[2017-10-04] MEDS: LOSARTAN 100 MG (COZAAR) TABLET PO SCH (21:59)
[2017-10-05] VITALS: BP 148/72
[2017-10-05 05:38] LABS: BASOPHILS % (AUTO) 1 % (0-10); EOSINOPHILS # (AUTO) 0.1 10^3/uL (0.0-0.3); EOSINOPHILS % (AUTO) 2 % (0-10); HEMATOCRIT 32 % (35-52); HEMOGLOBIN 10.2 G/DL (11.5-16.0); LYMPHOCYTES # (AUTO) 1.8 X 10^3 (1.0-4.0); LYMPHOCYTES % (AUTO) 29 % (12-44); MEAN CORPUSCULAR HEMOGLOBIN 29 PG (25-34); MEAN CORPUSCULAR HGB CONC 32 G/DL (32-36); MEAN CORPUSCULAR VOLUME 91 FL (80-99); MEAN PLATELET VOLUME 9.8 FL (7.4-10.4); MONOCYTES # (AUTO) 0.6 X 10^3 (0.0-1.0); MONOCYTES % (AUTO) 10 % (0-12); NEUTROPHILS # (AUTO) 3.8 X 10^3 (1.8-7.8); NEUTROPHILS % (AUTO) 59 % (42-75); PLATELET COUNT 223 10^3/uL (130-400); RED BLOOD COUNT 3.51 10^6/uL (4.35-5.85); RED CELL DISTRIBUTION WIDTH 14.1 % (10.0-14.5); WHITE BLOOD COUNT 6.4 10^3/uL (4.3-11.0)
[2017-10-05 06:01] LABS: CALCIUM 8.9 MG/DL (8.5-10.1); CREATININE SERUM 2.39 MG/DL (0.60-1.30); POTASSIUM 4.8 MMOL/L (3.6-5.0)
[2017-10-05] MEDS: CATHETER FLUSH 10 ML SYR IV SCH (06:02)
[2017-10-05] MEDS: inSUlin ASPART (NovoLOG) 1 UNIT/0.01 ML (CHARGE PER UNIT) SC SCH (06:13)
[2017-10-05 08:00] VITALS: BP 169/79
[2017-10-05] MEDS: CLOPIDOGREL 75 MG (PLAVIX) TABLET PO SCH (08:51)
[2017-10-05] MEDS: LACTULOSE SYRUP 10GM/15ML (ENULOSE) 30ML UDC PO SCH (08:52)
[2017-10-05] MEDS: POLYETHYLENE GLYCOL 17 GM (MIRALAX) PACK PO SCH (08:52)
[2017-10-05] MEDS: meTOprolol SUCCINATE 100 MG (TOPROL XL) TAB PO SCH (08:52)
[2017-10-05] MEDS: GABAPENTIN 100 MG (NEURONTIN) CAP PO SCH (08:52)
[2017-10-05] MEDS: inSUlin DETERMIR 1 UNIT/0.01 ML (LEVEMIR) CHARGE PER UNIT SQ SCH (08:53)
[2017-10-05] MEDS: ACETAMINOPHEN 500 MG TAB (TYLENOL) PO PRN (08:53)
[2017-10-05] MEDS: ENOXAPARIN 60 MG/0.6 ML (LOVENOX) SYR SC SCH (08:53)
[2017-10-05] MEDS: doxAzosin 2 MG (CARDURA) TAB PO SCH (09:02)
--- NOTE | 2017-10-05 09:49 | Progress Note-Cardiology ---
Cardiology SOAP Progress Note Subjective: Sitting up in a chair at the bedside. No new c/o Objective: I&O/Vital Signs 10/05/17 10/05/17 10/05/17 10/05/17 08:00 08:25 10:09 10:26 Temp 97.8 Pulse 56 56 Resp 18 18 B/P (MAP) 169/79 (109) 169/79 Pulse Ox 100 100 O2 Delivery Nasal Cannula Nasal Cannula Nasal Cannula Nasal Cannula O2 Flow Rate 3.00 3.00 3.00 3.00 10/05/17 00:00 Intake Total 1540 ml Output Total 1100 ml Balance 440 ml Weight (Pounds): 318 Weight (Ounces): 9.6 Weight (Calculated Kilograms): [id number] Constitutional: AAO x 3, well-developed, well-nourished Respiratory: No accessory muscle use, No respiratory distress; chest expansion is symmetric, chest is bilaterally symmetric, lungs clear to auscultation, other (good AE bilat) Cardiovascular: regular rate-rhythm; No JVD; S1 and S2 Gastrointestional: No tender; soft, round, audible bowel sounds Genital/Rectal: other (Urinary catheter to DD; clear, yellow urine) Extremities: swelling (mild bilat LE edema) Neurologic/Psychiatric: alert, other (mild weakness of right hand ) Skin: warm/dry; No rash, No ulcerations Results/Procedures: Labs Laboratory Tests 10/04/17 16:19: Glucometer 257H 10/04/17 21:10: Glucometer 239H 10/05/17 05:25: White Blood Count 6.4, Red Blood Count 3.51L, Hemoglobin 10.2L, Hematocrit 32L, Mean Corpuscular Volume 91, Mean Corpuscular Hemoglobin 29, Mean Corpuscular Hemoglobin Concent 32, Red Cell Distribution Width 14.1, Platelet Count 223, Mean Platelet Volume 9.8, Neutrophils (%) (Auto) 59, Lymphocytes (%) (Auto) 29, Monocytes (%) (Auto) 10, Eosinophils (%) (Auto) 2, Basophils (%) (Auto) 1, Neutrophils # (Auto) 3.8, Lymphocytes # (Auto) 1.8, Monocytes # (Auto) 0.6, Eosinophils # (Auto) 0.1, Basophils # (Auto) 0.0, Sodium Level 140, Potassium Level 4.8, Chloride Level 110H, Carbon Dioxide Level 19L, Anion Gap 11, Blood Urea Nitrogen 67H, Creatinine 2.39H, Estimat Glomerular Filtration Rate 20, BUN/ Creatinine Ratio 28, Glucose Level 113H, Calcium Level 8.9 10/05/17 11:13: Glucometer 239H Microbiology 09/30/17 MRSA Screen - Final, Complete A/P: Assessment: Uncontrolled hypertension - improved Hypertensive encephalopathy vs CVA (managed by Dr Pedro) Coronary artery disease with a history of coronary stenting in early [address] Hairston. The patient is stated to have received Promus 2.25 x 32 mm stent in the distal left anterior descending and Promus 2.25 x 28 mm stent in the left circumflex. These stents were patent on last cath of 03/25/14, but she underwent additional stenting: distal LAD with MiniVision 2x12 and proximal first diagonal with Promus Mike 2.5x12. The RCA was dominant and with mild plaques at the time of last cath of 03/25/14. LVEDP was mildly elevated. CAD is currently clinically stable. Last MPI of 03/22/16 showed no evidence of myocard ischemia or infarction, normal wall motion and LVEF 65% Echo of 03/21/16 was a technically difficult study, but showed LVEF 65%, trivial to mild MR & TR, mild AoV sclerosis w/o stenosis, PASP WNL H/o osteomyelitis of the R great toe managed by Dr Alex of the [facility] in [place], [place] Normal ABIs on 02/24/16 Carotid arterial disease with history of right carotid endarterectomy. Last carotid ultrasound of 07/24/17 showed 60-79% R ICA and less than 40% L ICA stenoses Maturity onset diabetes mellitus. Hyperlipidemia being treated with atorvastatin. Chronic kidney disease, stage IV, being managed by Dr Sarmad Varghese. Chronic anemia, likely related to chronic kidney disease, managed by Dr Augustin. H/o urinary tract infections, being managed by her pcp History of chronic, recurrent deep venous thrombosis. History of inferior vena cava placement by Dr. Duvall in September 2011. History of left venous port placement by Dr. Duvall. The patient is a [employer] and does not wish to ever receive any blood transfusions and is not, therefore, considered an ideal candidate for oral anticoagulation Chronic generalized body pains, including chest pains, non-specific, unchanged Chronic leg swelling and stasis dermatitis, likely related to venous insufficiency and calcium channel donna therapy, unchanged Obesity with hypoventilation syndrome; BMI 52 Isolated PACs recorded on Event Monitor transmissions of Mar 2014. Sleep apnea syndrome, being managed by Dr Fernandez Chronic back pain Plan: * Complex management due to multiple comorbidities * Continue current medication regimen * Monitor labs * Plavix and ASA have been continued * Cr stable - continue to monitor * PT/OT per medical services * Probable transfer to IRU later today for continued PT/OT Physician Assessment Physician Assessment No cp or palp or syncope or shortness of breath since admission Lungs: good bilat air entry Cor: reg Ext: mod nonpitting edema of the legs A&R * As documented in our note above that I updated (italics) and as noted below * Monitor labs * I discussed her CV issues with her Clinical Quality Measures Stroke: Symptoms onset unknown: Yes CODIE GALLARDO PRINT LINE INSPECTOR October 05, 2017 09:49 TRELL GERONIMO MD FACP FAC CCDS October 05, 2017 13:55
[2017-10-05] MEDS ORDERED: DOXA2TAB2 PO (10:00)
[2017-10-05] MEDS ORDERED: METO-395 PO (10:00)
[2017-10-05] MEDS ORDERED: HYDR-3923 PO (10:00)
[2017-10-05] MEDS ORDERED: LACT20SO2 PO (10:00)
[2017-10-05] MEDS ORDERED: ACET-77 PO (10:00)
[2017-10-05] MEDS ORDERED: POLY17PO23 PO (10:00)
--- NOTE | 2017-10-05 10:01 | Discharge Summary-Hospitalist ---
Diagnosis/Chief Complaint Date of Admission September 30, 2017 at 19:00 Date of Discharge Discharge Date: October 05, 2017 Discharge Diagnosis (1) PRES (posterior reversible encephalopathy syndrome) Status: Resolved (2) History of DVT (deep vein thrombosis) Status: Chronic (3) Hypertensive emergency Status: Resolved (4) Coronary artery disease Status: Chronic (5) Presence of IVC filter Status: Chronic (6) Hypertension Status: Chronic (7) Iron deficiency anemia Status: Chronic (8) Sleep apnea with use of nocturnal bilevel positive airway pressure (BPAP) Status: Chronic (9) Obesity hypoventilation syndrome Status: Chronic (10) 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 (11) CKD (chronic kidney disease) stage 4, GFR 15-29 ml/min Status: Chronic (12) Hypoxia Status: Chronic (13) Cerebrovascular disease or lesion Status: Chronic Assessment & Plan: Microinfarcts on MRI without overt hemiparesis Discharge Summary Discharge Physical Exam Allergies: Coded Allergies: Bacitracin Zinc (Unverified Allergy, Unknown, 07/11/17) Penicillins (Unverified Allergy, Unknown, HAS RECEIVED ROCEPHIN DURING PREVIOUS ADMIT, 07/11/17) bacitracin (Unverified Allergy, Unknown, 07/11/17) colistimethate sodium (Unverified Allergy, Unknown, 07/11/17) gramicidin D (Unverified Allergy, Unknown, 07/11/17) neomycin sulfate (Unverified Allergy, Unknown, 07/11/17) polymyxin B (Unverified Allergy, Unknown, 07/11/17) polymyxin B sulfate (Unverified Allergy, Unknown, 07/11/17) pramoxine HCl (Unverified Allergy, Unknown, 07/11/17) Vitals & I&Os Vital Signs Date Time Temp Pulse Resp B/P (MAP) Pulse Ox O2 Delivery O2 Flow Rate FiO2 10/05/17 10:26 56 18 169/79 100 Nasal Cannula 3.00 10/05/17 08:00 97.8 General Appearance: Alert, Oriented X3, Cooperative Respiratory: Clear to Auscultation, Normal Air Movement Neuro: Normal Speech, Strength at 5/5 X4 Ext Psych/Mental Status: Mental Status NL, Mood NL Hospital Course Hospital course: Patient had a standard hospital course which started in the ICU found to have hypertensive emergency and comatose state when she was found on her porch by her neighbor for an indeterminate amount of time. She is placed on Cardene drip and cardiology was consulted. Overall the delirium cleared with good thought process and renal function was monitored but baseline is 2.5 which it remained at that level during the hospital course. Home medications were evaluated and restarted and patient was deemed stable for inpatient rehabilitation and discharge orders were initiated. Right hip pain due to fall showed no evidence of fracture on x-ray. MRI did reveal very small micro-acute infarcts on the right side of the brain but considering no overt hemiparesis and history of cerebrovascular disease and TIAs she was continued on all medication with blood pressure control paramount goal and will be following patient closely in inpatient rehabilitation. Labs (last 24 hrs) Laboratory Tests 10/04/17 11:31: Glucometer 278H 10/04/17 16:19: Glucometer 257H 10/04/17 21:10: Glucometer 239H 10/05/17 05:25: White Blood Count 6.4, Red Blood Count 3.51L, Hemoglobin 10.2L, Hematocrit 32L, Mean Corpuscular Volume 91, Mean Corpuscular Hemoglobin 29, Mean Corpuscular Hemoglobin Concent 32, Red Cell Distribution Width 14.1, Platelet Count 223, Mean Platelet Volume 9.8, Neutrophils (%) (Auto) 59, Lymphocytes (%) (Auto) 29, Monocytes (%) (Auto) 10, Eosinophils (%) (Auto) 2, Basophils (%) (Auto) 1, Neutrophils # (Auto) 3.8, Lymphocytes # (Auto) 1.8, Monocytes # (Auto) 0.6, Eosinophils # (Auto) 0.1, Basophils # (Auto) 0.0, Sodium Level 140, Potassium Level 4.8, Chloride Level 110H, Carbon Dioxide Level 19L, Anion Gap 11, Blood Urea Nitrogen 67H, Creatinine 2.39H, Estimat Glomerular Filtration Rate 20, BUN/ Creatinine Ratio 28, Glucose Level 113H, Calcium Level 8.9 10/05/17 11:13: Glucometer 239H Microbiology 09/30/17 MRSA Screen - Final, Complete Patient resulted labs reviewed. Pending Labs Laboratory Tests 10/05/17 05:25: White Blood Count 6.4, Red Blood Count 3.51, Hemoglobin 10.2, Hematocrit 32, Mean Corpuscular Volume 91, Mean Corpuscular Hemoglobin 29, Mean Corpuscular Hemoglobin Concent 32, Red Cell Distribution Width 14.1, Platelet Count 223, Mean Platelet Volume 9.8, Neutrophils (%) (Auto) 59, Lymphocytes (%) (Auto) 29, Monocytes (%) (Auto) 10, Eosinophils (%) (Auto) 2, Basophils (%) (Auto) 1, Neutrophils # (Auto) 3.8, Lymphocytes # (Auto) 1.8, Monocytes # (Auto) 0.6, Eosinophils # (Auto) 0.1, Basophils # (Auto) 0.0, Sodium Level 140, Potassium Level 4.8, Chloride Level 110, Carbon Dioxide Level 19, Anion Gap 11, Blood Urea Nitrogen 67, Creatinine 2.39, Estimat Glomerular Filtration Rate 20, BUN/ Creatinine Ratio 28, Glucose Level 113, Calcium Level 8.9 10/05/17 11:13: Glucometer 239 Discussion & Recommendations Discharge Planning: <30 minutes discharge planning Discharge Home Medications: Active Scripts Active Polyethylene Glycol 3350 17 Gm Powd.pack 34 Gm PO BID 30 Days Acetaminophen 500 Mg Tablet 1,000 Mg PO Q8H PRN 30 Days Lactulose 20 Gm/30 Ml Solution 10 Gm PO BID 30 Days Metoprolol Succinate 100 Mg Tab.er.24h 100 Mg PO DAILY 30 Days Doxazosin Mesylate 2 Mg Tablet 2 Mg PO BID 30 Days Hydralazine HCl 25 Mg Tablet 50 Mg PO Q8HR PRN 30 Days Reported Torsemide 100 Mg Tablet 100 Mg PO DAILY PRN Aranesp (Darbepoetin Eliel in Polysorbat) 10 Mcg/0.4 Ml Syringe 20 Mcg IJ EVERY 2 WEEKS Refresh Optive Eye Drops (Carboxymethylcellulos/Glycerin) 15 Ml Drops 15 Ml OP Q4H PRN Gabapentin 100 Mg Capsule 100 Mg PO TID Lomotil 2.5-0.025 mg Tablet (Diphenoxylate HCl/Atropine) 1 Each Tablet 1 Each PO QID PRN Flaxseed Oil 1,000 Mg Capsule 1,000 Mg PO DAILY Alavert (Loratadine) 10 Mg Tab.rapdis 10 Mg PO Arginine 2,000 Mg Powd.pack 2,000 Mg PO TID Calcium 600 + Vit D 200 Tablet (Calcium Carbonate/Vitamin D3) 1 Each Tablet 1 Tab PO TID Rosuvastatin Calcium 20 Mg Tablet 20 Mg PO HS Novolog Flexpen (Insulin Aspart) 300 Units/3 Ml Solution 9 Units SC AC Losartan Potassium 100 Mg Tablet 100 Mg PO HS Vitamin D3 (Cholecalciferol (Vitamin D3)) 5,000 Unit Capsule 5,000 Units PO HS Levemir Flextouch (Insulin Detemir) 100 Unit/1 Ml Insuln.pen 20 Units SC BID Fish Oil 1,000 mg Softgel ([place]-3/Dha/Epa/Fish Oil) 1 Each Capsule 1,000 Mg PO TID Daily Multiple Vitamin (Multivitamin) 1 Each Tablet 1 Tab PO HS Magnesium Oxide 250 Mg Tablet 250 Mg PO HS Simbrinza 1%-0.2% Eye Drops (Brinzolamide/Brimonidine Tart) 8 Ml Drops.susp 1 Drops OU BID Aspirin EC (Aspirin) 81 Mg Tablet.dr 81 Mg PO HS Clopidogrel (Clopidogrel Bisulfate) 75 Mg Tablet 75 Mg PO HS Instructions to patient/family Please see electronic discharge instructions given to patient. Clinical Quality Measures DVT/VTE Risk/Contraindication: Risk Factor Score Per Nursin RFS Level Per Nursing on Admit: 4+=Very High Stroke: Symptoms onset unknown: Yes Problem Qualifiers (1) Coronary artery disease: Coronary Disease-Associated Artery/Lesion type: [place] artery [place] vs. transplanted heart: [place] heart Associated angina: without angina Qualified Codes: I25.10 - Atherosclerotic heart disease of [place] coronary artery without angina pectoris AC RIVERO DO October 05, 2017 10:01
[2017-10-05 10:26] VITALS: BP 169/79
[2017-10-05] MEDS ORDERED: METR500T21 PO (13:26)
[2017-10-05] MEDS ORDERED: METO-370 PO (13:26)
[2017-10-05] MEDS ORDERED: Brinzolamide/Brimonidine Tart (Simbrinza) 1%-0.2% Eye Drops OU SCH (21:00)
--- NOTE | 2017-10-15 16:00 | Diagnostic Imaging Report ---
INDICATION: Post intubation. EXAMINATION: Portal supine AP chest at 3:17 p.m. FINDINGS: The cardiomegaly noted on the prior exam of 10/03/2017 is again evident and no different. In the interval since the prior study an alveolar/interstitial infiltrate has developed in the right perihilar region and right lung base. Most likely this is secondary to pneumonia/atelectasis. There is also a vague area of slightly increased density in the right upper lung and this too may be related to pneumonia/atelectasis. A small amount of abnormal density has developed at the left hilum as well. The left lung is otherwise generally clear. The mediastinum is not widened. The osseous structures are intact. In the interval since the prior study, the patient has been intubated. The ET tube overlies the distal tracheal air shadow, roughly 2 cm cephalad to the monika. It could be retracted 1 cm. There is also now an NG line in place. The tip of the NG line is not visualized but the line is seen overlying the left upper quadrant. The central venous catheter on the right, noted previously, is unchanged in position. IMPRESSION: 1. The appearance of the chest has worsened since the prior study as bilateral pneumonia/atelectasis has developed. There is greater involvement on the right. A followup study would be recommended for continued evaluation. 2. The patient has been intubated. The ET tube could be retracted approximately 1 cm. 3. These results were discussed with Dr. Zendejas in the ER at the time of dictation. CRITICAL FINDING Dictated by: Dictated on workstation # [id number]
== END 2017-10-05 10:15 | DRG 71 ==
LOC: EDUNIT# 16:59 → ER 17:01 → ICU 19:00 → 4TH 10-03 14:30
PROVIDERS: ADMIT Family Medicine; ATTEND Family Medicine
DX: I67.83 Posterior reversible encephalopathy syndrome (principal); I16.1 Hypertensive emergency; I12.9 Hypertensive chronic kidney disease with stage 1 through stage 4 chronic kidney disease, or unspecified chronic kidney disease; N18.4 Chronic kidney disease, stage 4 (severe); E11.49 Type 2 diabetes mellitus with other diabetic neurological complication; E66.2 Morbid (severe) obesity with alveolar hypoventilation; R47.01 Aphasia; E11.22 Type 2 diabetes mellitus with diabetic chronic kidney disease; R47.89 Other speech disturbances; I25.10 Atherosclerotic heart disease of native coronary artery without angina pectoris; R29.721 NIHSS score 21; N25.0 Renal osteodystrophy; M54.9 Dorsalgia, unspecified; D50.9 Iron deficiency anemia, unspecified; I87.2 Venous insufficiency (chronic) (peripheral); R09.02 Hypoxemia; M19.91 Primary osteoarthritis, unspecified site; E78.00 Pure hypercholesterolemia, unspecified; Z86.718 Personal history of other venous thrombosis and embolism; Z99.81 Dependence on supplemental oxygen; Z95.5 Presence of coronary angioplasty implant and graft; Z79.4 Long term (current) use of insulin; Z86.73 Personal history of transient ischemic attack (TIA), and cerebral infarction without residual deficits; Z87.440 Personal history of urinary (tract) infections; Z53.1 Procedure and treatment not carried out because of patient's decision for reasons of belief and group pressure
CPT/HCPCS: 36415; 70450; 70551; 71045; 73502; 80048; 80053; 81000; 82962; 83735; 84100; 84484; 85025; 85379; 85610; 85730; 87081; 93005; 93041; 96365; 96375; 96376

== ENCOUNTER 2017-10-05 10:10 | Inpatient (IN) | payer MEDICARE, MEDICAID ==
[~2017-10-05] VITALS: Ht 162.6 cm; Wt 143.8 kg
[~2017-10-05 10:10] MED LIST changes: +ACET-77 PO; +ARGI2000 PO; +CALC1TAB94 PO; +CARB15DR2 OP; +DARB10SY IJ; +DIPH1TAB PO; +DOXA2TAB2 PO; +HYDR-3923 PO; +LACT20SO2 PO; +METO-395 PO; +POLY17PO23 PO; +TORS100T4 PO
[2017-10-05 11:00] VITALS: BP 134/76
--- OUTSIDE RECORDS SUMMARY | 2017-10-05 11:12 | XMS REPORT | Clinical Summary ---
Author Author [facility] Organization [facility] Address Unknown Phone Unavailable Care Team Providers Care Solutions Development Analyst Name Role Phone Tobi Benson MD PCP Source Comments Some departments are not documenting in the electronic medical record. If you do not see the information that you expected, contact Release of Information in the Health Information Management department at [phone] for further assistance in locating additional records.[facility] Allergies Not on File Current Medications [...]
--- NOTE | 2017-10-05 11:29 | Occupational Therapy Eval ---
OT Evaluation-General/PLF Medical Diagnosis Admission Date October 05, 2017 at 10:40 Medical Diagnosis: Hypertensive Emergency Onset Date: September 30, 2017 Therapy Diagnosis Therapy Diagnosis: weakness, debility, unsteadiness Height/Weight Height (Feet): 5 Height (Inches): 5.00 Weight (Pounds): 318 Weight (Ounces): 9.6 Precautions Precautions/Isolations: Fall Prevention, Standard Precautions, Pressure Ulcer ( medial aspect of left foot) Weight Bear Status Weight Bearing Restriction: Weight Bearing/Tolerated Referral Referral Reason: Evaluation/Treatment Medical History Pertinent Medical History: CAD, DM, HTN, OA Social History Home: Apartment (Pt lives at [facility]) ADL-Prior Level of Function Pt was WA with all ADLs with use of 4WW or cane. Pt lives on bottom floor of apartment complex and does not have any obstacles to navigate to/from her apartment. Pt was WA with all IADLs and was still driving throughout the community prior to hospitalization. DME/Equipment: Bath Chair (Pt has shower chair but she does not use it for bathing tasks. ), Grab Bars Pt has walk in shower with grab bars. Drive Self: Yes OT Current Status Subjective Pt alert and up in chair upon therapist arrival. Pt willing to participate with OT eval. Pt reports mild pain through right hip following fall. Pt feels fatigued and mildly short of breath. Mental Status/Objective Patient Orientation: Person, Place, Time, Situation Attachments: Oxygen (Pt on 3L of cont. 02) Current Upper Extremity ROM BUE AROM WNL Upper Extremity Strength Pt demonstrated BUE muscle strength of 3+/5 grossly. Pt given red theraband with instructions for HEP. Pt is able to demonstrate HEP , however pt requires verbal cues for proper joint movements for injury prevention. ADL-Treatment ADL-Current OT evaluation completed yesterday's date in acute care. Pt's level of function yesterday is as follows: Pt required setup for grooming while seated in chair. Pt required setup with increased time for UBD. Pt required CGA for LBD with verbal cues for compensatory techniques and use of varnish filterer for LBD task. Pt completed toileting tasks with CGA for safety due to pt's risk for falls. Pt required CGA for all functional transfers and standing tasks due to unsteadiness while standing with Fair dynamic standing balance. Pt required CGA for toileting transfer with education regarding pursed lip breathing techniques. Functional [place] Measure 0=Not Assessed/NA 4=Minimal Assistance 1=Total Assistance 5=Supervision or Setup 2=Maximal Assistance 6=Modified [place] 3=Moderate Assistance 7=Complete IndependenceIRFPAI Quality Coding Scale 6 Independent with activity with or without an assistive device 5 Patient requires set up or clean up by helper. Patient completes activity by themselves 4 Supervision or touching assist (CGA). [place] provide cues , steadying assist 3 The helper provides less than half the effort to complete the activity 2 The helper provides more than half the effort to complete the activity 1 Dependent. The helper does all the effort to complete an activity 7 Patient refused to complete or attempt activity 9 The patient did not perform the activity before the current illness or injury 88 Not attempted due to Medical conditions or safety concerns Education OT Patient Education: Correct positioning, Purpose of tx/functional activities , Rehab process, Safety issues Teaching Recipient: Patient Teaching Methods: Discussion Response to Teaching: Verbalize Understanding OT Short Term Goals Short Term Goals Time Frame: Oct 19, 2017 Grooming(FIM): 6 Bathing(FIM): 5 Bathing Location: L Arm, R Arm, L Upper Leg, R Upper Leg, L Lower Leg ( including foot), R Lower Leg (including foot), Chest, Abdomen, Buttocks, Perineal Area Upper Body Dressing(FIM): 6 Lower Body Dressing(FIM): 5 Toileting(FIM): 5 Transfers (B,C,W/C) (FIM): 5 Toilet/Commode Transfer(FIM): 5 Additional Short Term Goals: 3-ImproveStrength/Jaylene 1=Demonstrate adherence to instructed precautions during ADL tasks. 2=Patient will verbalize/demonstrate understanding of assistive devices/ modifications for ADL. 3=Patient will improve strength/tolerance for activity to enable patient to perform ADL's. OT Group Home Goals Group Home Goals Time Frame: Oct 26, 2017 Eating (FIM): 7 Eating (QC): 6 Groomin Oral Hygiene (QC): 6 Bathing(FIM): 6 Bathing Location: L Arm, R Arm, L Upper Leg, R Upper Leg, L Lower Leg ( including foot), R Lower Leg (including foot), Chest, Abdomen, Buttocks, Perineal Area Shower/Bathe Self (QC): 6 Upper Body Dressing(FIM): 6 Upper Body Dressing (QC): 6 Lower Body Dressing(FIM): 6 Lower Body Dressing (QC): 6 On/Off Footwear (QC): 6 Toileting(FIM): 6 Toileting Hygiene (QC): 6 Transfers (B,C,W/C) (FIM): 6 Toilet/Commode Transfer(FIM): 6 Toilet/Commode Transfer (QC): 6 Shower Transfer(FIM): 6 Additional Goals: 1-Demonstrate ADL Tasks, 2-Verbalize Understanding, 3- ImproveStrength/Jaylene 1=Demonstrate adherence to instructed precautions during ADL tasks. 2=Patient will verbalize/demonstrate understanding of assistive devices/ modifications for ADL. 3=Patient will improve strength/tolerance for activity to enable patient to perform ADL's. OT Education/Plan Problem List/Assessment Assessment: Decreased Activ Tolerance, Decreased UE Strength, Impaired Funct Balance, Impaired I ADL's, Impaired Self-Care Skills Discharge Recommendations Plan/Recommendations: Continue POC Therapy D/C Recommendations: Occupational Therapy Home Care Barriers to Progress Pt presents with decreased standing tolerance, impairment in her UE strength, decreased cardiopulmonary capacity, and impairment in her ability to perform self cares, resulting in the need for skilled OT services to facilitate return to PLOF. Treatment Plan/Plan of Care Treatment,Training & Education: Yes Patient would benefit from OT for education, treatment and training to promote independence in ADL's, mobility, safety and/or upper extremity function for ADL' s. Plan of Care: ADL Retraining, Functional Mobility, Group Exercise/Act as Ind, UE Funct Exercise/Act Treatment Duration: Oct 26, 2017 Frequency: At least 5 of 7 days/Wk (IRF) Estimated Hrs Per Day: 1.5 hours per day Rehab Potential: Good Time/GCodes Start Time: 11:15 Stop Time: 11:40 Total Time Billed (hr/min): 25 Billed Treatment Time visit, OSWALDO 25 minutes JASMINE ALEMAN OT October 05, 2017 11:29
--- NOTE | 2017-10-05 11:32 | Physical Therapy Evaluation ---
PT Evaluation-General Medical Diagnosis Admission Date October 05, 2017 at 10:40 Medical Diagnosis: hypertensive emergency Onset Date: September 30, 2017 Therapy Diagnosis Therapy Diagnosis: impaired mobility/strength/endurance Height/Weight Height (Feet): 5 Height (Inches): 5.00 Weight (Pounds): 318 Weight (Ounces): 9.6 Precautions Precautions/Isolations: Standard Precautions Weight Bear Status Right Lower Extremity: Right Full Weight Bearing Left Lower Extremity: Left Full Weight Bearing Referral Physician: Joe Reason for Referral: Evaluation/Treatment Medical History Pertinent Medical History: CAD, DM, HTN, OA Additional Medical History multiple TIA's, iron deficiency anemia Current History found unresponsive outside on her porch Reviewed History: Yes Social History Home: Apartment Current Living Status: Alone Entry Into Home: Level Entry Prior/Core FIM Prior Level of Function Functional [place] Measure 0=Not Assessed/NA 4=Minimal Assistance 1=Total Assistance 5=Supervision or Setup 2=Maximal Assistance 6=Modified [place] 3=Moderate Assistance 7=Complete [place] Bed Mobility: 6 Transfers (B,C,W/C) (FIM): 6 Gait: 6 Locomotion: [address], uses 2 canes for mobility, also has 4WW and FWW for use PT Evaluation-Current Subjective Patient is highly motivated to participate with PT. Pain Numeric Pain Scale: 3 Location: Right Location Body Site: Side Pain Description: Acute Pt/Family Goals return to home Objective Patient Orientation: Normal For Age Problem Solving: Good Attachments: Oxygen (3L continuous) ROM/Strength ROM Lower Extremities bilateral LE WNL Strenght Lower Extremities 4/5 grossly bilateral LE Integumentary/Posture Integumentary refer to nursing notes Bowel Incontinence: No Bladder Incontinence: No Posture slight trunk flexed posture Neuromuscular (Tone, Coordination, Reflexes) grossly intact Sensory Vision: recent cateract surgery bilaterally Hearing: Functional Sensation Right Lower Extremit: Impaired Sensation Left Lower Extremity: Impaired Transfers Functional [place] Measure 0=Not Assessed/NA 4=Minimal Assistance 1=Total Assistance 5=Supervision or Setup 2=Maximal Assistance 6=Modified [place] 3=Moderate Assistance 7=Complete IndependenceIRFPAI Quality Coding Scale 6 Independent with activity with or without an assistive device 5 Patient requires set up or clean up by helper. Patient completes activity by themselves 4 Supervision or touching assist (CGA). [place] provide cues , steadying assist 3 The helper provides less than half the effort to complete the activity 2 The helper provides more than half the effort to complete the activity 1 Dependent. The helper does all the effort to complete an activity 7 Patient refused to complete or attempt activity 9 The patient did not perform the activity before the current illness or injury 88 Not attempted due to Medical conditions or safety concerns Transfers (B, C, W/C) (FIM): 5 Scootin Rollin Roll Left to Right (QC): 5 Supine to/from Sit: 5 Sit to/from Stand: 5 Sit to Lying (QC): 5 Lying to Sitting/Side of Bed(Q: 5 Sit to Stand (QC): 5 Chair/Tud-za-Vioxg Xfer(QC): 5 Car Transfer (QC): 5 Gait Does the Patient Walk?: Yes Mode of Locomotion: Walk Anticipated Mode of Locomotion: Walk Gait (FIM): 5 Distance (FIM): 3=150 ft Walk 10 feet (QC): 5 Walk 50 ft with 2 Turns(QC): 5 Walk 150 ft (QC): 5 Walking 10ft/uneven surface-QC: 5 Distance: 300' x 1;200' x 2 Gait Level of Assist: 5 Gait Persons Needed: 1 Gait Assistive Device: Walker 4 Wheeled Comments/Gait Description extended UE's and trunk flexed posture with functional gait sequence. Wheelchair Training Does the Pt Use a Wheelchair?: No Stairs Stairs (FIM): 1 #of Steps: 1 Level of Assist: 5 1 Step (curb) (QC): 4 4 Steps (QC): 9 Assistive Device: Walker 12 Steps (QC): 9 Balance Sitting Static: Normal Sitting Dynamic: Normal Standing Static: Normal Standing Dynamic: Normal Assessment/Needs 67 y.o. female, will benefit from short term skilled PT to address functional strength and mobility to ensure safe return to home (apartment) at maximum LOF. Rehab Potential: Fair PT Fci Goals Fci Goals PT Buyer Renter Goals Time Frame: Oct 13, 2017 Transfers (B,C,W/C) (FIM): 6 Sit to Lying (QC): 6 Lying-Sitting on Side/Bed(QC): 6 Sit to Stand (QC): 6 Rollin Roll Left to Right (QC): 6 Chair/Pud-mo-Ryeca Xfer(QC): 6 Car Transfer (QC): 6 Does the Patient Walk: Yes Gait (FIM): 6 Gait distance (FIM): 3=150 ft (with negotiating O2 tubing in and around room) Distance: 150' Walk 10 feet (QC): 6 Walk 10ft-Uneven Surface(QC): 6 Walk 50ft with 2 Turns (QC): 6 Walk 150 ft (QC): 6 Gait Level of Assist: 6 Gait Assistive Device: Walker 4 Wheeled Stairs (FIM): 1 # of Steps: 1 1 Step (curb) (QC): 6 4 Steps (QC): 9 12 Steps (QC): 9 Stairs Level Of Assist: 6 Picking up an Object (QC): 5 PT Plan Problem List Problem List: Activity Tolerance, Functional Strength, Safety, Balance, Gait, Transfer, Bed Mobility Treatment/Plan Treatment Plan: Continue Plan of Care Treatment Plan: Bed Mobility, Education, Functional Activity Jaylene, Functional Strength, Group Therapy, Gait, Safety, Therapeutic Exercise, Transfers Treatment Duration: Oct 13, 2017 Frequency: At least 5 of 7 days/Wk (IRF) Estimated Hrs Per Day: 1.5 hours per day Patient and/or Family Agrees t: Yes Discharge Recommendations Therapy D/C Recommendations: Home Independently Time/GCodes Time In: 1000 Time Out: 1045 Total Billed Treatment Time: 45 Total Billed Treatment 1 visit EVModC 25 min FA 20 min LANDON MALDONADO PT October 05, 2017 11:32
--- NOTE | 2017-10-05 11:37 | ST Cognitive Linguistic Eval ---
Speech Evaluation-General Medical Diagnosis Debility Therapy Diagnosis Therapy Diagnosis: Cognitive Linguistic Skills Grossly WNL Referral Referring Physician: Dr. Williams Garcia Reason for Referral: Evaluation/Treatment Cognitive Evaluation Medical History Pertinent Medical History: CAD, DM, HTN, OA Current History The patient was recently admitted to [facility] with a diagnosis of debility. Speech PLF-Current Status Prior Level of Function The patient denied prior challenges with cognition or language. Per patient, her speech "is slurred sometimes when my sugars get low." Additionally, the patient was recently evaluated by speech pathology for her swallowing function which revealed a swallowing function within normal limits. Subjective The patient was seated upright in recliner upon entrance. The patient greeted the clinician and was agreeable to participation in the cognitive evaluation. Language Eval: Auditory Comprehends Simple Yes/No Ques: Functional Indent/Objects Multiple [place]: Functional Ident/Pics in Multiple Rahman: Functional Follows 1-Step Commands: Functional Follows Complex Directions: Functional Follows General Conversations: Functional The patient demonstrated an intermittent slight delay in responses, however, consistently responded accurately. Language Eval: Verbal Language Completes Spontaneous Greeting: Functional Produces Auto, Serial Info: Functional Imitates Simple Words/Phrases: Functional Word Finding: Functional Requests Basic Needs: Functional States Basic Personal Info: Functional Expresses Complex Ideas: Functional Cognitive Patient Orientation The patient was oriented to year, location, and city. The patient stated the month was October and the day of the week was Monday. Objective Cognitive Domain Attention: WNL (Grossly.) Memory: WNL (Grossly.) Problem Solving: Mild (Intermittent prompting was required for completion of sequencing activities.) Objective Impression The patient demonstrated cognitive linguistic skills grossly within normal limits and appropriate for completion of ADL's. Communication/Social Cognition Comprehension: 5 (The patient does wear glasses (not present) and required repetition and a slowed speech rate for full comprehension.) Expression: 6 Social Interaction: 7 Problem Solvin Memory: 6 Speech Patient Assess Expression of Ideas/Wants: Expression (4) Understanding Verbal Content: Understands (4) Brief Interview-Mental Status: Yes Repetition of Three Words: Three (3) Temporal Orientation: Year: Correct (3) Temporal Orientation: Month: Accurate within 5 days(2) Temporal Orientation: Day: Incorrect or No Answer(0) Recall : Wear to say "Sock": No, could not recall (0) Recall : Color: Yes, no cue required (2) Recall : Bed: Yes, no cue required (2) Speech-Plan Treatment Plan Speech Therapy Treatment Plan: Discontinue ST Evaluation, only. Frequency: Modified Program (IRF) (No ST warranted.) Estimated Hrs Per Day: Other (No ST warranted.) Rehab Potential: Guarded Safety Risks/Education Teaching Recipient: Patient Teaching Methods: Discussion Response to Teaching: Verbalize Understanding Education Topics Provided: Results, Plan of Care Time Speech Therapy Time In: 10:45 Speech Therapy Time Out: 11:15 Total Billed Time: 30 Billed Treatment Time 1, MICHELLE CARLSON October 05, 2017 11:37
[2017-10-05] MEDS ORDERED: CATHETER FLUSH 10 ML SYR IV PRN (11:45)
[2017-10-05] MEDS ORDERED: hydrALAZINE (APRESOLINE) 25 MG TAB PO PRN (11:45)
[2017-10-05] MEDS ORDERED: DIPHENOXYLATE/ATROPINE 2.5MG/0.025MG (LOMOTIL) TAB PO PRN (12:00)
[2017-10-05] MEDS ORDERED: ARTIFICAL TEARS 0.4 ML UNIT DOSE (REFRESH PLUS) OU PRN (12:00)
--- NOTE | 2017-10-05 13:18 | Physical Therapy Daily Note ---
PT Daily Note-Current Subjective Patient agrees to PT. No c/o. Pain Numeric Pain Scale: 3 Location: Right Location Body Site: Side Pain Description: Ache, Acute Mental Status Patient Orientation: Normal For Age Attachments: Oxygen (3L) Transfers Functional [place] Measure 0=Not Assessed/NA 4=Minimal Assistance 1=Total Assistance 5=Supervision or Setup 2=Maximal Assistance 6=Modified [place] 3=Moderate Assistance 7=Complete IndependenceIRFPAI Quality Coding Scale 6 Independent with activity with or without an assistive device 5 Patient requires set up or clean up by helper. Patient completes activity by themselves 4 Supervision or touching assist (CGA). [place] provide cues , steadying assist 3 The helper provides less than half the effort to complete the activity 2 The helper provides more than half the effort to complete the activity 1 Dependent. The helper does all the effort to complete an activity 7 Patient refused to complete or attempt activity 9 The patient did not perform the activity before the current illness or injury 88 Not attempted due to Medical conditions or safety concerns Transfers (B, C, W/C) (FIM): 5 Scootin Sit to/from Stand: 5 Sit to Stand (QC): 5 Car Transfer (QC): 5 Weight Bearing Right Lower Extremity: Right Full Weight Bearing Left Lower Extremity: Left Full Weight Bearing Gait Training Does the Patient Walk?: Yes Gait (FIM): 5 Distance (FIM): 3=150 ft Distance: 175' x 2 Walk 10 feet (QC): 5 Walk 50 ft with 2 Turns(QC): 5 Walk 150 ft (QC): 5 Gait Level of Assist: 5 Gait Assistive Device: FWW slow, steady gait sequence with 4WW/requires standing and sitting recovere periods due to SOA Exercises Seated Therapy Exercises: Ankle pumps, Long arc quads, Hip flexion Seated Reps: 15 (2 sets) Standing: Marching, Step-ups Standing Reps: 15 NuStep Minutes: 10 NuStep Workload: 3 Assessment Patient demonstrates difficulty negotiating O2 tubing in room. This will be addressed with treatment. PT Short Term Goals Short Term Goals Transfers (B,C,W/C) (FIM): 5 PT Care Home Goals Care Home Goals PT Care Home Goals Time Frame: Oct 13, 2017 Transfers (B,C,W/C) (FIM): 6 Sit to Lying (QC): 6 Lying-Sitting on Side/Bed(QC): 6 Sit to Stand (QC): 6 Rollin Roll Left to Right (QC): 6 Chair/Jcq-hd-Qmazq Xfer(QC): 6 Car Transfer (QC): 6 Does the Patient Walk: Yes Gait (FIM): 6 Gait distance (FIM): 3=150 ft (with negotiating O2 tubing in and around room) Distance: 150' Walk 10 feet (QC): 6 Walk 10ft-Uneven Surface(QC): 6 Walk 50ft with 2 Turns (QC): 6 Walk 150 ft (QC): 6 Gait Level of Assist: 6 Gait Assistive Device: Walker 4 Wheeled Stairs (FIM): 1 # of Steps: 1 1 Step (curb) (QC): 6 4 Steps (QC): 9 12 Steps (QC): 9 Stairs Level Of Assist: 6 Picking up an Object (QC): 5 PT Plan Treatment/Plan Treatment Plan: Continue Plan of Care Treatment Plan: Bed Mobility, Education, Functional Activity Jaylene, Functional Strength, Group Therapy, Gait, Safety, Therapeutic Exercise, Transfers Treatment Duration: Oct 13, 2017 Frequency: At least 5 of 7 days/Wk (IRF) Estimated Hrs Per Day: 1.5 hours per day Patient and/or Family Agrees t: Yes Time/GCodes Time In: 1215 Time Out: 1315 Total Billed Treatment Time: 60 Total Billed Treatment 1 visit FA x 2 35 min EX x 2 25 min LANDON MALDONADO PT October 05, 2017 13:18
[2017-10-05] MEDS ORDERED: METO-370 PO (13:26)
[2017-10-05] MEDS ORDERED: METR500T21 PO (13:26)
[2017-10-05] MEDS: OMEGA 3 (FISH OIL) 1000 MG CAP PO SCH ×2 (14:27→21:22)
[2017-10-05] MEDS: GABAPENTIN 100 MG (NEURONTIN) CAP PO SCH ×2 (14:27→21:22)
[2017-10-05] MEDS: CALCIUM CARB + VIT D 600 MG (CALCARB + D) TAB PO SCH ×2 (14:27→21:22)
[2017-10-05] MEDS: CATHETER FLUSH 10 ML SYR IV SCH ×2 (14:28→23:46)
--- NOTE | 2017-10-05 15:18 | Occupational Ther Daily Note ---
OT Current Status-Daily Note Subjective Pt sleeping in recliner, woke easily to name. Pt agrees to therapy. Pt concerned about small areas around abdomen that are bleeding, possibly due to syringe for medication given in the stomach. Reported to nrsg. Mental Status/Objective Patient Orientation: Person, Place, Time, Situation Functional [place] Measure 0=Not Assessed/NA 4=Minimal Assistance 1=Total Assistance 5=Supervision or Setup 2=Maximal Assistance 6=Modified [place] 3=Moderate Assistance 7=Complete [place] Attachments: Oxygen PICC ADL-Treatment Functional [place] Measure 0=Not Assessed/NA 4=Minimal Assistance 1=Total Assistance 5=Supervision or Setup 2=Maximal Assistance 6=Modified [place] 3=Moderate Assistance 7=Complete IndependenceIRFPAI Quality Coding Scale 6 Independent with activity with or without an assistive device 5 Patient requires set up or clean up by helper. Patient completes activity by themselves 4 Supervision or touching assist (CGA). [place] provide cues , steadying assist 3 The helper provides less than half the effort to complete the activity 2 The helper provides more than half the effort to complete the activity 1 Dependent. The helper does all the effort to complete an activity 7 Patient refused to complete or attempt activity 9 The patient did not perform the activity before the current illness or injury 88 Not attempted due to Medical conditions or safety concerns Grooming (FIM): 5 (SBA for safety. Pt able to comb and brush teeth.) Oral Hygiene (QC): 4 Bathing (FIM): 4 (Assist to reach feet to dry and bathe. Using grabbar, shower bench and hand held shower pt is able to complete all other areas.) Bathing Location: L Arm, R Arm, L Upper Leg, R Upper Leg, Chest, Abdomen, Buttocks, Perineal Area Shower/Bathe Self (QC): 3 Upper Body (FIM): 5 (After set up, pt is able to don/doff upper body clothing.) Upper Body Dressing (QC): 5 Lower Body Dressing (FIM): 3 (Pt uses own nurseryperson to don/doff clothing over feet then SBA to hike over hips. Pt states that has sock aide at home but it doesn't work. Pt unable to don footwear.) Lower Body Dressing (QC): 3 On/Off Footwear (QC): 3 Toileting (FIM): 5 (Using grabbar and 4WW pt is able to complete toileting, SBA for safety.) Toileting Hygiene (QC): 4 Toilet/Commode Transfer (FIM): 5 (SBA for safety. Completes using 4WW and grabbars.) Toilet Transfer (QC): 4 Shower Transfer(FIM): 5 (SBA for safety, completes using 4WW, grabbar and shower bench.) After therapy, pt sitting in recliner with feet up. Call light/phone in reach. All needs met in room. OT Short Term Goals Short Term Goals Time Frame: Oct 19, 2017 Grooming(FIM): 6 Bathing(FIM): 5 Bathing Location: L Arm, R Arm, L Upper Leg, R Upper Leg, L Lower Leg ( including foot), R Lower Leg (including foot), Chest, Abdomen, Buttocks, Perineal Area Upper Body Dressing(FIM): 6 Lower Body Dressing(FIM): 5 Toileting(FIM): 5 Transfers (B,C,W/C) (FIM): 5 Toilet/Commode Transfer(FIM): 5 Additional Short Term Goals: 3-ImproveStrength/Jaylene 1=Demonstrate adherence to instructed precautions during ADL tasks. 2=Patient will verbalize/demonstrate understanding of assistive devices/ modifications for ADL. 3=Patient will improve strength/tolerance for activity to enable patient to perform ADL's. OT Intermediate Goals Food And Beverage Cashier Goals Time Frame: Oct 26, 2017 Groomin Oral Hygiene (QC): 6 Bathing(FIM): 6 Bathing Location: L Arm, R Arm, L Upper Leg, R Upper Leg, L Lower Leg ( including foot), R Lower Leg (including foot), Chest, Abdomen, Buttocks, Perineal Area Shower/Bathe Self (QC): 6 Upper Body Dressing(FIM): 6 Upper Body Dressing (QC): 6 Lower Body Dressing(FIM): 6 Lower Body Dressing (QC): 6 On/Off Footwear (QC): 6 Toileting(FIM): 6 Toileting Hygiene (QC): 6 Transfers (B,C,W/C) (FIM): 6 Toilet/Commode Transfer(FIM): 6 Toilet/Commode Transfer (QC): 6 Shower Transfer(FIM): 6 1=Demonstrate adherence to instructed precautions during ADL tasks. 2=Patient will verbalize/demonstrate understanding of assistive devices/ modifications for ADL. 3=Patient will improve strength/tolerance for activity to enable patient to perform ADL's. OT Education/Plan Discharge Recommendations Plan/Recommendations: Continue POC Treatment Plan/Plan of Care Patient would benefit from OT for education, treatment and training to promote independence in ADL's, mobility, safety and/or upper extremity function for ADL' s. Plan of Care: ADL Retraining, Functional Mobility, Group Exercise/Act as Ind, UE Funct Exercise/Act Treatment Duration: Oct 26, 2017 Frequency: At least 5 of 7 days/Wk (IRF) Estimated Hrs Per Day: 1.5 hours per day Rehab Potential: Guarded Time/GCodes Start Time: 14:00 Stop Time: 15:00 Total Time Billed (hr/min): 60 Billed Treatment Time 1 visit-ADL 4 (60 min) ERROL KEENE October 05, 2017 15:18
[2017-10-05 16:38] VITALS: BP 163/70
[2017-10-05] MEDS: inSUlin ASPART (NovoLOG) 1 UNIT/0.01 ML (CHARGE PER UNIT) SC SCH ×3 (16:56→21:00)
[2017-10-05] MEDS ORDERED: NON-FORMULARY MEDICATION 1 EA EA (Brinzolamide/Brimonidine Tart (Simbrinza 1%-0.2% Eye Dro OU SCH (21:00)
[2017-10-05] MEDS: POLYETHYLENE GLYCOL 17 GM (MIRALAX) PACK PO SCH (21:00)
[2017-10-05] MEDS: LACTULOSE SYRUP 10GM/15ML (ENULOSE) 30ML UDC PO SCH (21:00)
[2017-10-05] MEDS: MAGNESIUM OXIDE (MAG-OX)400 MG TAB PO SCH (21:22)
[2017-10-05] MEDS: ROSUVASTATIN 20 MG (CRESTOR) TABLET PO SCH (21:22)
[2017-10-05] MEDS: doxAzosin 2 MG (CARDURA) TAB PO SCH (21:22)
[2017-10-05] MEDS: ASPIRIN E.C. 81 MG (ECOTRIN) TAB PO SCH (21:22)
[2017-10-05] MEDS: VITAMIN D3 5,000 UNITS (CHOLECALCIFEROL ) CAPSULE PO SCH (21:22)
[2017-10-05] MEDS: MULTIVIT W/MINERALS TAB (THERAGRAN M) PO SCH (21:23)
[2017-10-05] MEDS: inSUlin DETERMIR 1 UNIT/0.01 ML (LEVEMIR) CHARGE PER UNIT SQ SCH (21:23)
[2017-10-05] MEDS: LOSARTAN 100 MG (COZAAR) TABLET PO SCH (21:23)
--- NOTE | 2017-10-05 22:42 | HISTORY AND PHYSICAL ---
DATE OF SERVICE: 10/05/2017 CHIEF COMPLAINT: easy fatique and c/o her blood sugars are low. HISTORY OF PRESENT ILLNESS: The patient is a 67-year-old female who presented to the ER after a neighbor saw her out on her porch unresponsive, but apparently awake. The patient lives in an independent longterm community in her own apartment. She has chronic kidney disease and uncontrolled diabetes mellitus. An MRI of the brain on 10/04/2017 revealed findings suggestive of acute micro infarcts in the left frontal, left posterior parietal and left occipital lobe felt to be an embolic phenomenon. The patient was followed by [facility], hospitalist service and cardiology. Therapies were begun. The patient was found to be appropriate for inpatient rehabilitation. She had been modified independent with a four-wheeled walker with a seat prior to this. Currently, she is standby assist for transfers and gait with a four-wheeled walker. She is set up for grooming at the wheelchair level, set up for upper body dressing, contact guard for lower body dressing and verbal cues and with the use of manager immunology for lower body dressing tasks. She is contact guard for toileting tasks. She has unsteadiness of gait with impaired dynamic standing balance. Speech therapy has assessed her, found her to be cognitively intact and they have signed off. PAST MEDICAL HISTORY: Hypertension, osteoarthritis, diabetes mellitus, coronary artery disease. She is also on BiPAP for hypoventilation syndrome and on O2 by nasal cannula continuous 24 hours per day, 3 liters per minute. PAST SURGICAL HISTORY: Presence of IVC filter. ALLERGIES: BACITRACIN, PENICILLIN, POLYMYXIN B. FAMILY HISTORY: Noncontributory. SOCIAL HISTORY: She is single, lives alone. She lives in [facility] in [place]. REVIEW OF SYSTEMS: A 10-point review of systems significant for the patient complaining of some symptoms of hypoglycemia. She is eating peanut butter and crackers. She has numbness in feet from diabetic peripheral neuropathy. She has gait instability and obesity. MEDICATIONS: Plavix 75 mg p.o. daily, Toprol-XL 100 mg p.o. daily, Simbrinza eyedrops one drop both eyes b.i.d., ASA 81 mg p.o. each day at bedtime, vitamin D3 5000 units p.o. each day at bedtime, lactulose 10 grams p.o. b.i.d., MiraLax 34 grams p.o. b.i.d., Cardura 2 mg p.o. b.i.d., Levemir insulin 20 units subQ b.i.d., losartan 100 mg p.o. each day at bedtime, Crestor 20 mg p.o. each day at bedtime, Mag-Ox 400 mg p.o. each day at bedtime, multivitamins with minerals 1 tablet p.o. each day at bedtime, sliding scale insulin regimen B, NovoLog insulin 9 units subQ a.c., gabapentin 100 mg p.o. t.i.d., calcium and vitamin D 600 mg p.o. t.i.d., fish oil 1000 mg p.o. t.i.d., Refresh eyedrops 1 drop to affected eye q.4 hours p.r.n. dry eyes, Lomotil 1 tablet p.o. q.i.d. p.r.n. diarrhea, Tylenol 1000 mg p.o. q.8 hours p.r.n. mild pain, hydralazine 50 mg p.o. q.8 hours p.r.n. elevated blood pressure. PHYSICAL EXAMINATION: GENERAL: Significant for an obese female appearing her stated age, sitting in recliner in no acute distress. VITAL SIGNS: She is afebrile, pulse is 68, respirations 18, blood pressure 163/70, O2 sat 98% on 3 liters of O2 by nasal cannula. HEENT: Vision, speech, hearing is functional. No oral lesion is noted. NECK: Supple without mass. HEART: Regular rhythm. LUNGS: Clear. ABDOMEN: Soft, nontender, bowel sounds present. EXTREMITIES: The patient has chronic changes in the skin from chronic edema in both legs. No calf tenderness. MUSCULOSKELETAL: The patient has functional active range of motion in all 4 limbs. NEUROLOGIC: She has decreased sensation to touch in both legs. She is reported to be continent of bowel and bladder. Strength in the lower extremities is 4/5 bilaterally grossly. Strength in both upper limbs 3+/5. IMPRESSION: 1. Ambulatory dysfunction secondary to micro infarcts left frontal, left posterior parietal and left occipital lobe with resulting gait imbalance and a decline in her functional independence. 2. Hypertension, controlled with medication. 3. Hypoventilation syndrome, on BiPAP. 4. Oxygen dependence. 5. Insulin-dependent diabetes mellitus. 6. Diabetic peripheral neuropathy. 7. History of multiple transient ischemic attacks. 8. History of deep vein thrombosis with inferior vena cava filter placed. 9. Iron deficiency anemia. 10. Renal osteodystrophy. 11. Coronary artery disease. PLAN: The patient will have a comprehensive program of inpatient stroke rehabilitation with goal of maximizing level of functional independence prior to discharge home with home health care. The patient will have PT, OT 90 minutes per day each discipline, 5 days a week for 14 days with a goal of returning home to her independent apartment, modified independent to supervision for ADLs and mobility skills with home health care. Please see post-admission physician evaluation, which is a separate document for details of plan of care. Speech therapy has assessed and signed off at this point. Rehabilitation nursing to assist with bowel, bladder, skin, wound care, medication administration, pain management. Social service to assist with discharge planning, community reentry. [facility] as per their schedule. ESTIMATED LENGTH OF STAY: 14 days. PROGNOSIS: Rehab prognosis appears good for the above goals in mind. DIET: Carb consistent. CODE STATUS: Full code. SCDs for DVT prophylaxis. Accu-Cheks q.i.d. a.c. and at bedtime. Job ID: [id number] DocumentID: [id number] Dictated Date: 10/05/2017 20:58:28 Corporate Quality Manager Date: 10/05/2017 22:42:08 Dictated By: NAPOLEON IVAN MD MTDD
[2017-10-06] MEDS: ACETAMINOPHEN 500 MG TAB (TYLENOL) PO PRN (03:12)
[2017-10-06] MEDS: inSUlin ASPART (NovoLOG) 1 UNIT/0.01 ML (CHARGE PER UNIT) SC SCH ×7 (05:38→20:35)
[2017-10-06 06:15] VITALS: BP 151/79
[2017-10-06] MEDS: CATHETER FLUSH 10 ML SYR IV SCH ×3 (06:38→20:36)
[2017-10-06] MEDS: doxAzosin 2 MG (CARDURA) TAB PO SCH ×2 (08:08→20:33)
[2017-10-06] MEDS: GABAPENTIN 100 MG (NEURONTIN) CAP PO SCH ×3 (08:08→20:33)
[2017-10-06] MEDS: OMEGA 3 (FISH OIL) 1000 MG CAP PO SCH ×3 (08:08→20:34)
[2017-10-06] MEDS: CLOPIDOGREL 75 MG (PLAVIX) TABLET PO SCH (08:08)
[2017-10-06] MEDS: CALCIUM CARB + VIT D 600 MG (CALCARB + D) TAB PO SCH ×3 (08:08→20:33)
[2017-10-06] MEDS: inSUlin DETERMIR 1 UNIT/0.01 ML (LEVEMIR) CHARGE PER UNIT SQ SCH ×2 (08:09→20:35)
[2017-10-06] MEDS: LACTULOSE SYRUP 10GM/15ML (ENULOSE) 30ML UDC PO SCH ×2 (08:14→20:43)
[2017-10-06] MEDS: POLYETHYLENE GLYCOL 17 GM (MIRALAX) PACK PO SCH ×2 (08:15→20:43)
--- NOTE | 2017-10-06 08:57 | PM&R Post Admission Assessment ---
Post Admission Physician Asses Date seen by provider: Oct 06, 2017 Time seen by provider: 08:10 Admisison Dx: (1) CVA (cerebral vascular accident) Status: Acute (2) Cerebrovascular disease or lesion Status: Chronic The preadmission screen agrees with the post admission assessment that the patient is a good candidate for inpatient rehabilitation. The patient will have a comprehensive program of inpatient rehabilitation with a goal of maximizing level of functional independence prior to discharge home with [facility]. The patient will have PT/OT ninety minutes per day, each discipline , five days a week for gait, strengthening, conditioning, balance, ADLs, any patient/family/caregiver training as necessary. Speech therapy to do cognitive assessment and treat as indicated. Rehabilitation nursing to assist with bowel, bladder, skin, medication administration, pain management. Plant Associate to assist with discharge planning, community reentry. SCD's for DVT prophylaxis. She appears to be well motivated to participate in three hours of therapy a day. She should be able to tolerate three hours of therapy a day from a medical standpoint. She should benefit from the three hours of therapy a day. She has a reasonable discharge plan, reasonable discharge rehabilitation goals and a supportive family. She has various comorbidities that need to be closely monitored with medications and treatments adjusted on a daily basis as needed. These include: HTN OA Hypoventilatory syndrome on BIPAP DM HX DVT RT LEG s/p IVC filter placemnt Obesity Barriers to discharge for this patient who had been independent prior to this are for her to be modified independent to supervision for ADLs and mobility skills prior to discharge home with [facility], so as to lessen the burden of the caregivers. .She had been Modified Independent with a 4 wheeled walker prior to this Risks for this patient include: 1. Fall 2. Fracture 3. DVT 4. Pulmonary embolism 5. Wound infection 6. Skin breakdown 7. Contractures 8. Poorly controlled pain 9. Urinary retention 10. UTI 11. Respiratory infection 12. Aspiration 13. Poorly controlled HTn 14. Poorly controlled DM Estimated Length of Stay: 14 days Prognosis: Rehab prognosis appears good for goal of discharge home with [facility] modified independent to supervision for ADLs and mobility skills. Assessment Multiple Left cvas small in size felt to be embolic with maild RT sided weakness DM controlled with meds HTN controlled Hypoventilatory syndrome on Bipap at night and 02 by N/C Plan Continue PT/OT F/U with [facility] Monitor Accucheks and adjust meds as needed Rotate sites for Insulin injections Team Conference next week 10-11-17 General: Alert, Oriented X3, Cooperative, No Acute Distress, Other (The patient is seen in her room this AM She is having some bleeding from injection sites will need to alternate sites She is doing grooming in her bathroom at the wc level) HEENT: Atraumatic, PERRLA, EOMI, Mucous Memb Moist/Gutierrez Neck: Supple, No JVD Lungs: Clear to Auscultation Heart: Regular Rate Abdomen: Normal Bowel Sounds Extremities: Other (Chronic edema and skin changes with hx of DVT rt leg) Neuro: Sensation Intact (Diminished to touch in feet), Other (Strength 4-/5 Both UES and Lower extremities) Psych/Mental Status: Other (Cognition intact) NAPOLEON IVAN MD Oct 06, 2017 08:57
[2017-10-06] MEDS: Brinzolamide/Brimonidine Tart (Simbrinza) 1%-0.2% Eye Drops OU SCH ×2 (09:06→20:41)
[2017-10-06] MEDS: meTOprolol SUCCINATE 100 MG (TOPROL XL) TAB PO SCH (09:06)
--- NOTE | 2017-10-06 09:08 | Progress Note-Cardiology ---
Cardiology SOAP Progress Note Subjective: In bed. Just finished working with PT. No c/o CP or palpitation. Chronic mild to mod dyspnea which is unchanged Objective: I&O/Vital Signs 10/06/17 06:15 Temp 97.8 Pulse 71 Resp 19 B/P (MAP) 151/79 (103) Pulse Ox 98 O2 Delivery NIV CPAP O2 Flow Rate 3.00 Weight (Pounds): 317 Weight (Ounces): 0.0 Weight (Calculated Kilograms): 143.980304 Constitutional: AAO x 3, well-developed, well-nourished Respiratory: chest expansion is symmetric, chest is bilaterally symmetric, other (good air entry bilat) Cardiovascular: regular rate-rhythm; No JVD; S1 and S2 Gastrointestional: soft, round, audible bowel sounds Extremities: significant edema (mod bilat non-pitting edema) Neurologic/Psychiatric: grossly intact Skin: No rash, No ulcerations Results/Procedures: Labs Laboratory Tests 10/05/17 16:21: Glucometer 233H 10/05/17 20:30: Glucometer 147H 10/06/17 05:25: Glucometer 134H A/P: Assessment: Uncontrolled hypertension - improved Hypertensive encephalopathy vs CVA (managed by Dr Pedro) Coronary artery disease with a history of coronary stenting in early [address] Hairston. The patient is stated to have received Promus 2.25 x 32 mm stent in the distal left anterior descending and Promus 2.25 x 28 mm stent in the left circumflex. These stents were patent on last cath of 03/25/14, but she underwent additional stenting: distal LAD with MiniVision 2x12 and proximal first diagonal with Promus Mike 2.5x12. The RCA was dominant and with mild plaques at the time of last cath of 03/25/14. LVEDP was mildly elevated. CAD is currently clinically stable. Last MPI of 03/22/16 showed no evidence of myocard ischemia or infarction, normal wall motion and LVEF 65% Echo of 03/21/16 was a technically difficult study, but showed LVEF 65%, trivial to mild MR & TR, mild AoV sclerosis w/o stenosis, PASP WNL H/o osteomyelitis of the R great toe managed by Dr Alex of the [facility] in [place], [place] Normal ABIs on 02/24/16 Carotid arterial disease with history of right carotid endarterectomy. Last carotid ultrasound of 07/24/17 showed 60-79% R ICA and less than 40% L ICA stenoses Maturity onset diabetes mellitus. Hyperlipidemia being treated with atorvastatin. Chronic kidney disease, stage IV, being managed by Dr Sarmad Varghese. Chronic anemia, likely related to chronic kidney disease, managed by Dr Augustin. H/o urinary tract infections, being managed by her pcp History of chronic, recurrent deep venous thrombosis. History of inferior vena cava placement by Dr. Duvall in September 2011. History of left venous port placement by Dr. Duvall. The patient is a Jehov[employer]s Witness and does not wish to ever receive any blood transfusions and is not, therefore, considered an ideal candidate for oral anticoagulation Chronic generalized body pains, including chest pains, non-specific, unchanged Chronic leg swelling and stasis dermatitis, likely related to venous insufficiency and calcium channel donna therapy, unchanged Obesity with hypoventilation syndrome; BMI 52 Isolated PACs recorded on Event Monitor transmissions of Mar 2014. Sleep apnea syndrome, being managed by Dr Fernandez Chronic back pain Plan: Plan: * Complex management due to multiple comorbidities * Continue current medication regimen * Monitor labs * Plavix and ASA have been continued * Cr stable - continue to monitor * PT/OT per medical services * BP not well controlled - add Hydralazine 25 mg TID CODIE GALLARDO Oct 06, 2017 09:08
--- NOTE | 2017-10-06 09:09 | Individualized Plan of Care ---
Individualized Plan of Care Rehab Nursing IPOC Order Admission Date October 05, 2017 at 10:40 Current Orders Orders Admission Order(Inpt,Obs,Sdc) (10/05/17 10:00) Pt Evaluate/Treat Request (10/05/17 10:00) Request Ot Evaluate & Treat (10/05/17 10:00) Request For Cognitive Services (10/05/17 10:00) Code/Resuscitation (10/05/17 11:34) Accucheck Achs ACHS (10/05/17 11:34) Sequential Compression Device 08,20 (10/05/17 11:34) Cho 60g/M 3snack (16-2000 Ronaldo) (10/05/17 Lunch) (Nf) Brinzolamide/Brimonidine Tart (Simb (10/05/17 21:00) Acetaminophen Tablet (Tylenol Tablet) (10/05/17 11:45) Aspirin Enteric Coated Tablet (Ecotrin T (10/05/17 21:00) Cholecalciferol Capsule/Tablet (Vitamin (10/05/17 21:00) Clopidogrel Tablet (Plavix Tablet) (10/06/17 09:00) Gabapentin Capsule/Tablet (Neurontin Cap (10/05/17 13:00) Lactulose Oral Solution (Enulose Oral So (10/05/17 21:00) Polyethylene Glycol Powder Pkt (Miralax (10/05/17 21:00) Sodium Chloride Flush (Catheter Flush Sy (10/05/17 11:45) Doxazosin Tablet (Cardura Tablet) (10/05/17 21:00) Hydralazine Tablet (Apresoline Tablet) (10/05/17 11:45) Insulin Aspart (Novolog) (Novolog (Charg (10/05/17 16:00) Insulin Determir (Per Unit) (Levemir (Pe (10/05/17 21:00) Metoprolol Succinate (Xl) Tab (Toprol Xl (10/06/17 09:00) Consult Physician (10/05/17 11:34) Rt Request For Service (10/05/17 11:34) [employer] Consult (10/05/17 11:34) Losartan Tablet (Cozaar Tablet) (10/05/17 21:00) Rosuvastatin Tablet (Crestor Tablet) (10/05/17 21:00) Sodium Chloride Flush (Catheter Flush Sy (10/05/17 14:00) Calcium Carbonate W/Vitamin D3 (Calcarb (10/05/17 13:00) Carboxymethylcell Ophth Soln (Refresh Pl (10/05/17 12:00) Diphenoxylate/Atropine Tablet (Lomotil T (10/05/17 12:00) Insulin Aspart (Novolog) (Novolog (Charg (10/05/17 16:00) Magnesium Oxide Tablet (Mag Ox Tablet) (10/05/17 21:00) Therapeutic Multivitamin Tab (Vitamins, (10/05/17 21:00) Freedom 3 Capsule (Fish Oil Capsule) (10/05/17 13:00) Patient Visit (10/05/17 ) Speech Sound Lang Comp (10/05/17 ) Patient Visit (10/05/17 ) Pt Eval Moderate Complexity (10/05/17 ) Functional Activities, Ea 15 (10/05/17 ) Exercise Therap, Ea 15 Min (10/05/17 ) Transfer - Bed/Room Transfer (10/05/17 19:56) Consult Physician (10/05/17 20:18) (Nf) Brinzolamide/Brimonidine Tart (Simb (10/06/17 09:00) Rehab Nursing Orders: Disease Management & Educaiton, DVT Prophylaxis, Fall Prevention, Infection Prevention, Medication Management & Education, Management of Skin Intergrity, Nutrition Management, Pain Management, Patient/Family Support Other Nursing Orders: Monitor for constipation and urinary retention s/p stroke PT IPOC Problem List: Activity Tolerance, Functional Strength, Safety, Balance, Gait, Transfer, Bed Mobility Treatment Plan: Continue Plan of Care Bed Mobility, Education, Functional Activity Jaylene, Functional Strength, Group Therapy, Gait, Safety, Therapeutic Exercise, Transfers Treatment Duration: Oct 13, 2017 Frequency: At least 5 of 7 days/Wk (IRF) Estimated Hrs Per Day: 1.5 hours per day OT IPOC Problems: Decreased Activ Tolerance, Decreased UE Strength, Impaired Funct Balance, Impaired I ADL's, Impaired Self-Care Skills OT Treatment, Training and Edu: Yes Plan of Care: ADL Retraining, Functional Mobility, Group Exercise/Act as Ind, UE Funct Exercise/Act Treatment Duration: Oct 26, 2017 Frequency: At least 5 of 7 days/Wk (IRF) Estimated Hrs Per Day: 1.[address] IPOC Speech Therapy Treatment Plan: Discontinue ST Treatment Duration: Oct 06, 2017 Frequency: Modified Program (IRF) (No ST warranted.) Estimated Hrs Per Day: Other (No ST warranted.) [employer]/Case Mgmt [employer]/Case Managemen: Discharge Planning, Patient/Family Counseling Dietitian/Instructional Services Librarian Dietitian/Instructional Services Librarian to monitor nutritional status and make changes and/or recommendations as needed and work with speech pathology on dietary upgrades as the occur. Physician IPOC Medical Issues being managed closely and that require the 24 hour availability of a physician: HTN DM Hypoventilatory syndrome Medical Issues: DVT Prophylaxis, Falls Precautions, Infection Protection, Pain Management, Other (List) (as pert above) Brief Synthesis of Preadmission Screen, Post-Admission Evaluation, and Therapy Evaluations: 67 yo female who had been living in a Independent apartemnt in a senior care community nearby who sustained multiple small strokes involving the Left cerebral cortex.with a resulting decline in Functional [place].Has multiple comorbidities as per H&P and had been Mod independent with a walker.HX of DVT rt leg s/p IVC filter placement. Medical Prognosis: Good Anticipated Length of Stay: 10-26-17 Modified Independent for adls and mobilty skills Anticipated d/c Destination: Home with [facility] back to [facility] NAPOLEON IVAN MD Oct 06, 2017 09:08
--- NOTE | 2017-10-06 09:43 | Occupational Ther Daily Note ---
OT Current Status-Daily Note Subjective Pt alert, sitting on the toilet. Pt agrees to therapy. No c/o pain at this time. Mental Status/Objective Patient Orientation: Person, Place, Time, Situation Functional [place] Measure 0=Not Assessed/NA 4=Minimal Assistance 1=Total Assistance 5=Supervision or Setup 2=Maximal Assistance 6=Modified [place] 3=Moderate Assistance 7=Complete [place] Attachments: Oxygen ADL-Treatment Toilet transfer with supervision. Toileting supervision. Ambulated to sink and washed hands using 4WW with supervision. Completed grooming at sink, supervision. Pt able to don/doff pants using superintendent generating plant with supervision. Bed mobility, mod I. Functional [place] Measure 0=Not Assessed/NA 4=Minimal Assistance 1=Total Assistance 5=Supervision or Setup 2=Maximal Assistance 6=Modified [place] 3=Moderate Assistance 7=Complete IndependenceIRFPAI Quality Coding Scale 6 Independent with activity with or without an assistive device 5 Patient requires set up or clean up by helper. Patient completes activity by themselves 4 Supervision or touching assist (CGA). [place] provide cues , steadying assist 3 The helper provides less than half the effort to complete the activity 2 The helper provides more than half the effort to complete the activity 1 Dependent. The helper does all the effort to complete an activity 7 Patient refused to complete or attempt activity 9 The patient did not perform the activity before the current illness or injury 88 Not attempted due to Medical conditions or safety concerns Grooming (FIM): 5 Oral Hygiene (QC): 4 Lower Body Dressing (FIM): 5 Lower Body Dressing (QC): 4 On/Off Footwear (QC): 2 (Pt able to doff with superintendent generating plant, assist to don.) Toileting (FIM): 5 Toileting Hygiene (QC): 4 Toilet/Commode Transfer (FIM): 5 Toilet Transfer (QC): 4 Other Treatment Pt completed arm bike duration 15 min without resistance to increase activity tolerance for daily functional tasks. Pt took 3 long recovery breaks. C/o pain in L shldr. Palpated tightness around upper lateral side of scapula. Hot moist pack placed on area to decrease tightness for 20 min with stretching after. After therapy, lying in bed with feet elevated above heart. Call light/ phone in reach. All needs met in room. OT Short Term Goals Short Term Goals Time Frame: Oct 19, 2017 Grooming(FIM): 6 Bathing(FIM): 5 Bathing Location: L Arm, R Arm, L Upper Leg, R Upper Leg, L Lower Leg ( including foot), R Lower Leg (including foot), Chest, Abdomen, Buttocks, Perineal Area Upper Body Dressing(FIM): 6 Lower Body Dressing(FIM): 5 Toileting(FIM): 5 Transfers (B,C,W/C) (FIM): 5 Toilet/Commode Transfer(FIM): 5 Additional Short Term Goals: 3-ImproveStrength/Jaylene 1=Demonstrate adherence to instructed precautions during ADL tasks. 2=Patient will verbalize/demonstrate understanding of assistive devices/ modifications for ADL. 3=Patient will improve strength/tolerance for activity to enable patient to perform ADL's. OT Mcc Goals Pension Consultant Goals Time Frame: Oct 26, 2017 Eating (FIM): 7 Eating (QC): 6 Groomin Oral Hygiene (QC): 6 Bathing(FIM): 6 Bathing Location: L Arm, R Arm, L Upper Leg, R Upper Leg, L Lower Leg ( including foot), R Lower Leg (including foot), Chest, Abdomen, Buttocks, Perineal Area Shower/Bathe Self (QC): 6 Upper Body Dressing(FIM): 6 Upper Body Dressing (QC): 6 Lower Body Dressing(FIM): 6 Lower Body Dressing (QC): 6 On/Off Footwear (QC): 6 Toileting(FIM): 6 Toileting Hygiene (QC): 6 Transfers (B,C,W/C) (FIM): 6 Toilet/Commode Transfer(FIM): 6 Toilet/Commode Transfer (QC): 6 Shower Transfer(FIM): 6 Additional Goals: 1-Demonstrate ADL Tasks, 2-Verbalize Understanding, 3- ImproveStrength/Jaylene 1=Demonstrate adherence to instructed precautions during ADL tasks. 2=Patient will verbalize/demonstrate understanding of assistive devices/ modifications for ADL. 3=Patient will improve strength/tolerance for activity to enable patient to perform ADL's. OT Education/Plan Discharge Recommendations Plan/Recommendations: Continue POC Treatment Plan/Plan of Care Patient would benefit from OT for education, treatment and training to promote independence in ADL's, mobility, safety and/or upper extremity function for ADL' s. Plan of Care: ADL Retraining, Functional Mobility, Group Exercise/Act as Ind, UE Funct Exercise/Act Treatment Duration: Oct 26, 2017 Frequency: At least 5 of 7 days/Wk (IRF) Estimated Hrs Per Day: 1.5 hours per day Rehab Potential: Guarded Time/GCodes Start Time: 08:50 Stop Time: 09:50 Total Time Billed (hr/min): 60 Billed Treatment Time 1 visit-ADL 3 (40 min) EX 1 (20 min) ERROL KEENE Oct 06, 2017 09:43
--- NOTE | 2017-10-06 11:58 | Physical Therapy Daily Note ---
PT Daily Note-Current Subjective Patient is very agreeable to participate with PT. No c/o. Pain Numeric Pain Scale: 0-No Pain Location: No Pain Reported Mental Status Patient Orientation: Normal For Age Attachments: Oxygen (3L continuous) Transfers Functional [place] Measure 0=Not Assessed/NA 4=Minimal Assistance 1=Total Assistance 5=Supervision or Setup 2=Maximal Assistance 6=Modified [place] 3=Moderate Assistance 7=Complete IndependenceIRFPAI Quality Coding Scale 6 Independent with activity with or without an assistive device 5 Patient requires set up or clean up by helper. Patient completes activity by themselves 4 Supervision or touching assist (CGA). [place] provide cues , steadying assist 3 The helper provides less than half the effort to complete the activity 2 The helper provides more than half the effort to complete the activity 1 Dependent. The helper does all the effort to complete an activity 7 Patient refused to complete or attempt activity 9 The patient did not perform the activity before the current illness or injury 88 Not attempted due to Medical conditions or safety concerns Transfers (B, C, W/C) (FIM): 5 Scootin Rollin Roll Left to Right (QC): 5 Supine to/from Sit: 5 Sit to/from Stand: 5 Sit to Lying (QC): 5 Sit to Stand (QC): 5 Chair/Vzf-kt-Lzgcc Xfer(QC): 5 Bed to/from Chair: 5 Car Transfer (QC): 5 Weight Bearing Right Lower Extremity: Right Full Weight Bearing Left Lower Extremity: Left Full Weight Bearing Gait Training Does the Patient Walk?: Yes Gait (FIM): 6 Distance (FIM): 3=150 ft Distance: 175' x 4 Walk 10 feet (QC): 7 Walk 50 ft with 2 Turns(QC): 7 Walk 150 ft (QC): 7 Gait Level of Assist: 6 Gait Assistive Device: Walker 4 Wheeled assist for O2 tank only/functional and safe gait pattern Exercises Supine Ex: Ankle pumps, Quad Set, Heel Slides Supine Reps: 15 Seated Therapy Exercises: Ankle pumps, Long arc quads, Hip flexion Seated Reps: 15 (2 sets) Standin way Ex=Flex, Abd, Ext, Mini squats Standing Reps: 15 (2 sets) NuStep Minutes: 15 NuStep Workload: 5 (to improve functional strength and mobility) Assessment Patient tolerated treatment well and is progressing with treatment plan. PT to increase activity as tolerated by patient. PT Short Term Goals Short Term Goals Transfers (B,C,W/C) (FIM): 5 PT Mcfp Goals Mcfp Goals PT Chief Of Staff Doctor Goals Time Frame: Oct 13, 2017 Transfers (B,C,W/C) (FIM): 6 Sit to Lying (QC): 6 Lying-Sitting on Side/Bed(QC): 6 Sit to Stand (QC): 6 Rollin Roll Left to Right (QC): 6 Chair/Vvi-mt-Aoqxa Xfer(QC): 6 Car Transfer (QC): 6 Does the Patient Walk: Yes Gait (FIM): 6 Gait distance (FIM): 3=150 ft (with negotiating O2 tubing in and around room) Distance: 150' Walk 10 feet (QC): 6 Walk 10ft-Uneven Surface(QC): 6 Walk 50ft with 2 Turns (QC): 6 Walk 150 ft (QC): 6 Gait Level of Assist: 6 Gait Assistive Device: Walker 4 Wheeled Stairs (FIM): 1 # of Steps: 1 1 Step (curb) (QC): 6 4 Steps (QC): 9 12 Steps (QC): 9 Stairs Level Of Assist: 6 Picking up an Object (QC): 5 PT Plan Treatment/Plan Treatment Plan: Continue Plan of Care Treatment Plan: Bed Mobility, Education, Functional Activity Jaylene, Functional Strength, Group Therapy, Gait, Safety, Therapeutic Exercise, Transfers Treatment Duration: Oct 13, 2017 Frequency: At least 5 of 7 days/Wk (IRF) Estimated Hrs Per Day: 1.5 hours per day Patient and/or Family Agrees t: Yes Time/GCodes Time In: 1050 Time Out: 1150 Total Billed Treatment Time: 60 Total Billed Treatment 1 visit EX x 3 40 min GT 20 min LANDON MALDONADO PT Oct 06, 2017 11:58
[2017-10-06] MEDS: hydrALAZINE (APRESOLINE) 25 MG TAB PO SCH ×2 (14:18→22:24)
--- NOTE | 2017-10-06 14:45 | Therapy Group Daily Note ---
Therapy Daily Group Note Patient Education Topic Home Safety Exercises Fine Motor, UE Exercise Other/Notes Pt ambulated via 4WW to OT/PT group in [facility] area. Group consisted of introductions (name), socialization, UE functional activities, fine motor tasks , inside environment safety Bingo and ARU description. Pt introduced self appropriately and actively listened to peers. Conversation started given to pt when large group broke into multiple groups during fine motor strengthening and dexterity tasks. Pt declined to complete Bingo due to beliefs. Did complete other fine motor tasks appropriately. Pt contributed to conversations appropriately and interacted with peers effectively. Demonstrated good pinch/ stars specialist and UE strength throughout all tasks and activities. After group, pt laid down in bed with feet elevated. Call light/phone in reach. All needs met in room. Start Time: 13:00 Stop Time: 14:15 Total Billed Treatment Time: 75 Total Billed Treatment 1-GRP ERROL KEENE Oct 06, 2017 14:45
[2017-10-06 18:23] VITALS: BP 154/78
[2017-10-06] MEDS: MAGNESIUM OXIDE (MAG-OX)400 MG TAB PO SCH (20:33)
[2017-10-06] MEDS: ROSUVASTATIN 20 MG (CRESTOR) TABLET PO SCH (20:33)
[2017-10-06] MEDS: MULTIVIT W/MINERALS TAB (THERAGRAN M) PO SCH (20:33)
[2017-10-06] MEDS: LOSARTAN 100 MG (COZAAR) TABLET PO SCH (20:33)
[2017-10-06] MEDS: ASPIRIN E.C. 81 MG (ECOTRIN) TAB PO SCH (20:34)
[2017-10-06] MEDS: VITAMIN D3 5,000 UNITS (CHOLECALCIFEROL ) CAPSULE PO SCH (20:34)
[2017-10-07 05:33] VITALS: BP 157/74
[2017-10-07] MEDS: hydrALAZINE (APRESOLINE) 25 MG TAB PO SCH ×3 (06:20→21:47)
[2017-10-07] MEDS: inSUlin ASPART (NovoLOG) 1 UNIT/0.01 ML (CHARGE PER UNIT) SC SCH ×7 (06:21→20:31)
[2017-10-07] MEDS: CATHETER FLUSH 10 ML SYR IV SCH ×3 (06:25→20:26)
[2017-10-07] MEDS: CLOPIDOGREL 75 MG (PLAVIX) TABLET PO SCH (08:34)
[2017-10-07] MEDS: LACTULOSE SYRUP 10GM/15ML (ENULOSE) 30ML UDC PO SCH ×2 (08:34→19:32)
[2017-10-07] MEDS: meTOprolol SUCCINATE 100 MG (TOPROL XL) TAB PO SCH (08:34)
[2017-10-07] MEDS: CALCIUM CARB + VIT D 600 MG (CALCARB + D) TAB PO SCH ×3 (08:34→20:28)
[2017-10-07] MEDS: doxAzosin 2 MG (CARDURA) TAB PO SCH ×2 (08:34→20:28)
[2017-10-07] MEDS: OMEGA 3 (FISH OIL) 1000 MG CAP PO SCH ×3 (08:34→20:27)
[2017-10-07] MEDS: GABAPENTIN 100 MG (NEURONTIN) CAP PO SCH ×3 (08:34→20:26)
[2017-10-07] MEDS: POLYETHYLENE GLYCOL 17 GM (MIRALAX) PACK PO SCH ×2 (08:35→19:32)
[2017-10-07] MEDS: Brinzolamide/Brimonidine Tart (Simbrinza) 1%-0.2% Eye Drops OU SCH ×2 (08:36→19:31)
[2017-10-07] MEDS: inSUlin DETERMIR 1 UNIT/0.01 ML (LEVEMIR) CHARGE PER UNIT SQ SCH ×2 (08:37→20:29)
--- NOTE | 2017-10-07 11:46 | Physical Therapy Daily Note ---
PT Daily Note-Current Subjective Patient agrees to PT. Pain Numeric Pain Scale: 3 Location: Left Location Body Site: Thigh Pain Description: Ache Mental Status Patient Orientation: Normal For Age Attachments: Oxygen (3L NC) Transfers Functional [place] Measure 0=Not Assessed/NA 4=Minimal Assistance 1=Total Assistance 5=Supervision or Setup 2=Maximal Assistance 6=Modified [place] 3=Moderate Assistance 7=Complete IndependenceIRFPAI Quality Coding Scale 6 Independent with activity with or without an assistive device 5 Patient requires set up or clean up by helper. Patient completes activity by themselves 4 Supervision or touching assist (CGA). [place] provide cues , steadying assist 3 The helper provides less than half the effort to complete the activity 2 The helper provides more than half the effort to complete the activity 1 Dependent. The helper does all the effort to complete an activity 7 Patient refused to complete or attempt activity 9 The patient did not perform the activity before the current illness or injury 88 Not attempted due to Medical conditions or safety concerns Transfers (B, C, W/C) (FIM): 6 Scootin Sit to/from Stand: 6 Sit to Stand (QC): 5 Weight Bearing Right Lower Extremity: Right Full Weight Bearing Left Lower Extremity: Left Full Weight Bearing Gait Training Does the Patient Walk?: Yes Gait (FIM): 6 Distance (FIM): 3=150 ft Distance: 200' x 2; 150' x 2 Walk 10 feet (QC): 5 Walk 50 ft with 2 Turns(QC): 5 Walk 150 ft (QC): 5 Gait Level of Assist: 6 Gait Assistive Device: Walker 4 Wheeled steady, functional Exercises NuStep Minutes: 10 NuStep Workload: 5 (to improve functional mobility and strength) Assessment Patient progressing with treatment plan. PT will continue to increase activity as tolerated by patient. PT Short Term Goals Short Term Goals Transfers (B,C,W/C) (FIM): 5 PT Income Tax Administrator Goals Income Tax Administrator Goals PT Snf Goals Time Frame: Oct 13, 2017 Transfers (B,C,W/C) (FIM): 6 Sit to Lying (QC): 6 Lying-Sitting on Side/Bed(QC): 6 Sit to Stand (QC): 6 Rollin Roll Left to Right (QC): 6 Chair/Iww-gg-Ugwwu Xfer(QC): 6 Car Transfer (QC): 6 Does the Patient Walk: Yes Gait (FIM): 6 Gait distance (FIM): 3=150 ft (with negotiating O2 tubing in and around room) Distance: 150' Walk 10 feet (QC): 6 Walk 10ft-Uneven Surface(QC): 6 Walk 50ft with 2 Turns (QC): 6 Walk 150 ft (QC): 6 Gait Level of Assist: 6 Gait Assistive Device: Walker 4 Wheeled Stairs (FIM): 1 # of Steps: 1 1 Step (curb) (QC): 6 4 Steps (QC): 9 12 Steps (QC): 9 Stairs Level Of Assist: 6 Picking up an Object (QC): 5 PT Plan Treatment/Plan Treatment Plan: Continue Plan of Care Treatment Plan: Bed Mobility, Education, Functional Activity Jaylene, Functional Strength, Group Therapy, Gait, Safety, Therapeutic Exercise, Transfers Treatment Duration: Oct 13, 2017 Frequency: At least 5 of 7 days/Wk (IRF) Estimated Hrs Per Day: 1.5 hours per day Patient and/or Family Agrees t: Yes Time/GCodes Time In: 1115 Time Out: 1138 Total Billed Treatment Time: 23 Total Billed Treatment 1 visit FA 13 min EX 10 min LANDON MALDONADO PT Oct 07, 2017 11:46
[2017-10-07 14:25] VITALS: BP 155/75
[2017-10-07 17:23] VITALS: BP 141/61
[2017-10-07] MEDS: VITAMIN D3 5,000 UNITS (CHOLECALCIFEROL ) CAPSULE PO SCH (20:26)
[2017-10-07] MEDS: MAGNESIUM OXIDE (MAG-OX)400 MG TAB PO SCH (20:27)
[2017-10-07] MEDS: ROSUVASTATIN 20 MG (CRESTOR) TABLET PO SCH (20:27)
[2017-10-07] MEDS: LOSARTAN 100 MG (COZAAR) TABLET PO SCH (20:27)
[2017-10-07] MEDS: MULTIVIT W/MINERALS TAB (THERAGRAN M) PO SCH (20:28)
[2017-10-07] MEDS: ASPIRIN E.C. 81 MG (ECOTRIN) TAB PO SCH (20:28)
[2017-10-07] MEDS: ACETAMINOPHEN 500 MG TAB (TYLENOL) PO PRN (20:42)
[2017-10-08] MEDS: ACETAMINOPHEN 500 MG TAB (TYLENOL) PO PRN ×3 (05:00→22:03)
[2017-10-08] MEDS: hydrALAZINE (APRESOLINE) 25 MG TAB PO SCH ×3 (05:00→21:58)
[2017-10-08] MEDS: CATHETER FLUSH 10 ML SYR IV SCH ×3 (05:00→21:59)
[2017-10-08] MEDS: inSUlin ASPART (NovoLOG) 1 UNIT/0.01 ML (CHARGE PER UNIT) SC SCH ×7 (05:04→21:00)
[2017-10-08 05:34] VITALS: BP 113/68
[2017-10-08] MEDS: doxAzosin 2 MG (CARDURA) TAB PO SCH ×2 (08:08→21:11)
[2017-10-08] MEDS: OMEGA 3 (FISH OIL) 1000 MG CAP PO SCH ×3 (08:08→21:11)
[2017-10-08] MEDS: CALCIUM CARB + VIT D 600 MG (CALCARB + D) TAB PO SCH ×3 (08:08→21:10)
[2017-10-08] MEDS: meTOprolol SUCCINATE 100 MG (TOPROL XL) TAB PO SCH (08:08)
[2017-10-08] MEDS: Brinzolamide/Brimonidine Tart (Simbrinza) 1%-0.2% Eye Drops OU SCH ×2 (08:08→21:16)
[2017-10-08] MEDS: CLOPIDOGREL 75 MG (PLAVIX) TABLET PO SCH (08:08)
[2017-10-08] MEDS: GABAPENTIN 100 MG (NEURONTIN) CAP PO SCH ×3 (08:08→21:10)
[2017-10-08] MEDS: LACTULOSE SYRUP 10GM/15ML (ENULOSE) 30ML UDC PO SCH ×2 (08:09→21:00)
[2017-10-08] MEDS: inSUlin DETERMIR 1 UNIT/0.01 ML (LEVEMIR) CHARGE PER UNIT SQ SCH ×2 (08:09→21:13)
[2017-10-08] MEDS: POLYETHYLENE GLYCOL 17 GM (MIRALAX) PACK PO SCH ×2 (08:09→21:00)
[2017-10-08 16:41] VITALS: BP 143/61
[2017-10-08] MEDS: MAGNESIUM OXIDE (MAG-OX)400 MG TAB PO SCH (21:10)
[2017-10-08] MEDS: VITAMIN D3 5,000 UNITS (CHOLECALCIFEROL ) CAPSULE PO SCH (21:10)
[2017-10-08] MEDS: MULTIVIT W/MINERALS TAB (THERAGRAN M) PO SCH (21:10)
[2017-10-08] MEDS: LOSARTAN 100 MG (COZAAR) TABLET PO SCH (21:10)
[2017-10-08] MEDS: ROSUVASTATIN 20 MG (CRESTOR) TABLET PO SCH (21:11)
[2017-10-08] MEDS: ASPIRIN E.C. 81 MG (ECOTRIN) TAB PO SCH (21:11)
[2017-10-09 05:28] VITALS: BP 162/67
[2017-10-09] MEDS: inSUlin ASPART (NovoLOG) 1 UNIT/0.01 ML (CHARGE PER UNIT) SC SCH ×7 (06:00→20:25)
[2017-10-09] MEDS: hydrALAZINE (APRESOLINE) 25 MG TAB PO SCH ×3 (06:03→21:05)
[2017-10-09] MEDS: CATHETER FLUSH 10 ML SYR IV SCH ×3 (06:29→20:25)
[2017-10-09 06:54] LABS: HEMOGLOBIN 9.7 G/DL (11.5-16.0); RED BLOOD COUNT 3.28 10^6/uL (4.35-5.85); RED CELL DISTRIBUTION WIDTH 14.1 % (10.0-14.5); WHITE BLOOD COUNT 4.7 10^3/uL (4.3-11.0)
[2017-10-09 07:11] LABS: CALCIUM 9.5 MG/DL (8.5-10.1); CREATININE SERUM 2.44 MG/DL (0.60-1.30)
[2017-10-09 07:36] LABS: POTASSIUM 5.7 MMOL/L (3.6-5.0)
[2017-10-09] MEDS: GABAPENTIN 100 MG (NEURONTIN) CAP PO SCH ×3 (08:06→20:51)
[2017-10-09] MEDS: inSUlin DETERMIR 1 UNIT/0.01 ML (LEVEMIR) CHARGE PER UNIT SQ SCH ×2 (08:06→20:25)
[2017-10-09] MEDS: POLYETHYLENE GLYCOL 17 GM (MIRALAX) PACK PO SCH ×2 (08:06→19:41)
[2017-10-09] MEDS: CLOPIDOGREL 75 MG (PLAVIX) TABLET PO SCH (08:06)
[2017-10-09] MEDS: meTOprolol SUCCINATE 100 MG (TOPROL XL) TAB PO SCH (08:06)
[2017-10-09] MEDS: LACTULOSE SYRUP 10GM/15ML (ENULOSE) 30ML UDC PO SCH ×2 (08:06→19:41)
[2017-10-09] MEDS: doxAzosin 2 MG (CARDURA) TAB PO SCH ×2 (08:06→20:23)
[2017-10-09] MEDS: CALCIUM CARB + VIT D 600 MG (CALCARB + D) TAB PO SCH ×3 (08:06→20:23)
[2017-10-09] MEDS: OMEGA 3 (FISH OIL) 1000 MG CAP PO SCH ×3 (08:06→20:23)
[2017-10-09] MEDS: Brinzolamide/Brimonidine Tart (Simbrinza) 1%-0.2% Eye Drops OU SCH ×2 (08:07→20:28)
--- NOTE | 2017-10-09 08:52 | Occupational Ther Daily Note ---
OT Current Status-Daily Note Subjective Pt alert, sitting in recliner. Pt agrees to therapy. No c/o pain at this time. Pt wondering about going to eye doctor's appointment on Monday. Mental Status/Objective Patient Orientation: Person, Place, Time, Situation Functional [place] Measure 0=Not Assessed/NA 4=Minimal Assistance 1=Total Assistance 5=Supervision or Setup 2=Maximal Assistance 6=Modified [place] 3=Moderate Assistance 7=Complete [place] Attachments: Other-See Comments ([facility]) ADL-Treatment Pt able to retrieve clothing using 4WW and transport. Pt ambulated to bathroom using 4WW and transferred into shower using shower bench, grabbar and 4WW by self. Pt then was able to complete shower with mod I using grabbar, shower bench, long handle sponge and hand held shower. Pt able to complete upper body dressing by self. Completed pants/underwear by self. Large sock aide given, pt able to don socks with sock aide, doffed with instructional services librarian. Standing at sink, pt able to complete grooming. Pt ambulated back to room and sat in recliner to don sock aide. After therapy, pt sitting in recliner with call light/phone in reach. O2 applied. All needs met in room. Functional [place] Measure 0=Not Assessed/NA 4=Minimal Assistance 1=Total Assistance 5=Supervision or Setup 2=Maximal Assistance 6=Modified [place] 3=Moderate Assistance 7=Complete IndependenceIRFPAI Quality Coding Scale 6 Independent with activity with or without an assistive device 5 Patient requires set up or clean up by helper. Patient completes activity by themselves 4 Supervision or touching assist (CGA). [facility] provide cues , steadying assist 3 The helper provides less than half the effort to complete the activity 2 The helper provides more than half the effort to complete the activity 1 Dependent. The helper does all the effort to complete an activity 7 Patient refused to complete or attempt activity 9 The patient did not perform the activity before the current illness or injury 88 Not attempted due to Medical conditions or safety concerns Grooming (FIM): 5 Oral Hygiene (QC): 4 Bathing (FIM): 6 Bathing Location: L Arm, R Arm, L Upper Leg, R Upper Leg, L Lower Leg ( including foot), R Lower Leg (including foot), Chest, Abdomen, Buttocks, Perineal Area Shower/Bathe Self (QC): 6 Upper Body (FIM): 6 Upper Body Dressing (QC): 6 Lower Body Dressing (FIM): 4 Lower Body Dressing (QC): 4 On/Off Footwear (QC): 4 Toileting (FIM): 6 Toileting Hygiene (QC): 6 Toilet/Commode Transfer (FIM): 6 Toilet Transfer (QC): 6 Shower Transfer(FIM): 6 OT Short Term Goals Short Term Goals Time Frame: Oct 19, 2017 Grooming(FIM): 6 Bathing(FIM): 5 Bathing Location: L Arm, R Arm, L Upper Leg, R Upper Leg, L Lower Leg ( including foot), R Lower Leg (including foot), Chest, Abdomen, Buttocks, Perineal Area Upper Body Dressing(FIM): 6 Lower Body Dressing(FIM): 5 Toileting(FIM): 5 Transfers (B,C,W/C) (FIM): 5 Toilet/Commode Transfer(FIM): 5 Additional Short Term Goals: 3-ImproveStrength/Jaylene 1=Demonstrate adherence to instructed precautions during ADL tasks. 2=Patient will verbalize/demonstrate understanding of assistive devices/ modifications for ADL. 3=Patient will improve strength/tolerance for activity to enable patient to perform ADL's. OT Bench Assembler Battery Goals Bench Assembler Battery Goals Time Frame: Oct 26, 2017 Eating (FIM): 7 Eating (QC): 6 Groomin Oral Hygiene (QC): 6 Bathing(FIM): 6 Bathing Location: L Arm, R Arm, L Upper Leg, R Upper Leg, L Lower Leg ( including foot), R Lower Leg (including foot), Chest, Abdomen, Buttocks, Perineal Area Shower/Bathe Self (QC): 6 Upper Body Dressing(FIM): 6 Upper Body Dressing (QC): 6 Lower Body Dressing(FIM): 6 Lower Body Dressing (QC): 6 On/Off Footwear (QC): 6 Toileting(FIM): 6 Toileting Hygiene (QC): 6 Transfers (B,C,W/C) (FIM): 6 Toilet/Commode Transfer(FIM): 6 Toilet/Commode Transfer (QC): 6 Shower Transfer(FIM): 6 Additional Goals: 1-Demonstrate ADL Tasks, 2-Verbalize Understanding, 3- ImproveStrength/Jaylene 1=Demonstrate adherence to instructed precautions during ADL tasks. 2=Patient will verbalize/demonstrate understanding of assistive devices/ modifications for ADL. 3=Patient will improve strength/tolerance for activity to enable patient to perform ADL's. OT Education/Plan Discharge Recommendations Plan/Recommendations: Continue POC Treatment Plan/Plan of Care Patient would benefit from OT for education, treatment and training to promote independence in ADL's, mobility, safety and/or upper extremity function for ADL' s. Plan of Care: ADL Retraining, Functional Mobility, Group Exercise/Act as Ind, UE Funct Exercise/Act Treatment Duration: Oct 26, 2017 Frequency: At least 5 of 7 days/Wk (IRF) Estimated Hrs Per Day: 1.5 hours per day Rehab Potential: Guarded Time/GCodes Start Time: 07:55 Stop Time: 08:55 Total Time Billed (hr/min): 60 Billed Treatment Time 1 visit-ADL 4 (60 min) ERROL KEENE Oct 09, 2017 08:52
--- NOTE | 2017-10-09 10:02 | Physical Therapy Daily Note ---
PT Daily Note-Current Subjective Patient in recliner pre tx, agrees to PT, has pain in her right foot and hip but will not rate it. Appearance Patient in recliner post tx with nurse call, phone, tray, all needs met. O2 on. Mental Status Patient Orientation: Person, Place, Situation Attachments: Oxygen Transfers Functional [place] Measure 0=Not Assessed/NA 4=Minimal Assistance 1=Total Assistance 5=Supervision or Setup 2=Maximal Assistance 6=Modified [place] 3=Moderate Assistance 7=Complete IndependenceIRFPAI Quality Coding Scale 6 Independent with activity with or without an assistive device 5 Patient requires set up or clean up by helper. Patient completes activity by themselves 4 Supervision or touching assist (CGA). [place] provide cues , steadying assist 3 The helper provides less than half the effort to complete the activity 2 The helper provides more than half the effort to complete the activity 1 Dependent. The helper does all the effort to complete an activity 7 Patient refused to complete or attempt activity 9 The patient did not perform the activity before the current illness or injury 88 Not attempted due to Medical conditions or safety concerns Transfers (B, C, W/C) (FIM): 5 Sit to/from Stand: 5 Bed to/from Chair: 5 Patient is SBA with transfers but she does need cues for safety. She tends to sit without using her arms and is not always in a good position and plops down. Weight Bearing Right Lower Extremity: Right Full Weight Bearing Left Lower Extremity: Left Full Weight Bearing Gait Training Gait (FIM): 5 Distance: 200'x2, 100' Gait Level of Assist: 5 Gait Persons Needed: 1 Gait Assistive Device: Walker 4 Wheeled slow ambulation, patient tends to ambulate with walker a little too far out in front of her Exercises Standing: Hip Abduction, Hamstring curls, Heel/toe raises, Mini squats Standing Reps: 15 LAQ alternating for 5 min NuStep Minutes: 15 NuStep Workload: 4 Treatments transfers,ambulation, functional strengthening Assessment Current Status: Fair Progress Improving endurance but patient has very weak gastrocs and cannot perform a heel raise completely. PT Short Term Goals Short Term Goals Transfers (B,C,W/C) (FIM): 5 PT Paediatric Thoracic Physician Goals [place] Goals PT Paediatric Thoracic Physician Goals Time Frame: Oct 13, 2017 Transfers (B,C,W/C) (FIM): 6 Sit to Lying (QC): 6 Lying-Sitting on Side/Bed(QC): 6 Sit to Stand (QC): 6 Rollin Roll Left to Right (QC): 6 Chair/Yfy-im-Divqe Xfer(QC): 6 Car Transfer (QC): 6 Does the Patient Walk: Yes Gait (FIM): 6 Gait distance (FIM): 3=150 ft (with negotiating O2 tubing in and around room) Distance: 150' Walk 10 feet (QC): 6 Walk 10ft-Uneven Surface(QC): 6 Walk 50ft with 2 Turns (QC): 6 Walk 150 ft (QC): 6 Gait Level of Assist: 6 Gait Assistive Device: Walker 4 Wheeled Stairs (FIM): 1 # of Steps: 1 1 Step (curb) (QC): 6 4 Steps (QC): 9 12 Steps (QC): 9 Stairs Level Of Assist: 6 Picking up an Object (QC): 5 PT Plan Problem List Problem List: Activity Tolerance, Functional Strength, Safety, Balance, Gait, Transfer, Bed Mobility, ROM Treatment/Plan Treatment Plan: Continue Plan of Care Treatment Plan: Bed Mobility, Education, Functional Activity Jaylene, Functional Strength, Group Therapy, Gait, Safety, Therapeutic Exercise, Transfers Treatment Duration: Oct 13, 2017 Frequency: At least 5 of 7 days/Wk (IRF) Estimated Hrs Per Day: 1.5 hours per day Patient and/or Family Agrees t: Yes Safety Risks/Education Patient Education: Gait Training, Transfer Techniques, Correct Positioning, Safety Issues Teaching Recipient: Patient Teaching Methods: Demonstration, Discussion Response to Teaching: Reinforcement Needed Time/GCodes Time In: 900 Time Out: 1000 Total Billed Treatment Time: 60 Total Billed Treatment 1 visit GT 35', EX 25' JAQUI ELISE PT Oct 09, 2017 10:02
[2017-10-09] MEDS ORDERED: SOD POLYSTERENE 15 GM/60 ML (KAYEXALATE) UNIT DOSE PO NR (11:15)
--- NOTE | 2017-10-09 14:38 | Therapy Group Daily Note ---
Therapy Daily Group Note Other/Notes Patient's participated in group therapy in the common area of rehab this afternoon. Each patient ambulated or was transported to the common area of rehab and placed with the group of other patient's. Each patient had to introduce themselves, state where they were from, and answer a question that involves memory and critical thinking. Patient's were educated about strokes and heart disease and they participated in group discussion. Then patient's performed a balloon activity that worked on reaction time and upper extremity strength and ROM. At the end, patients ambulated or were transported back to their room and placed in bed or chair with nurse call, phone, tray, all needs met. Start Time: 13:00 Stop Time: 14:15 Total Billed Treatment Time: 75 Total Billed Treatment 1 visit [facility] 75' JAQUI ELISE PT Oct 09, 2017 14:38
[2017-10-09 17:37] VITALS: BP 155/64
--- NOTE | 2017-10-09 17:49 | PM & R (SOAP) Progress Note ---
Subjective This was a face to face visit with the patient. Date Seen by Provider: Oct 09, 2017 Time Seen by Provider: 17:30 Subjective/Events-last exam Patient was seen in her room this evening C/O Rt Flank pain Serum K elevated as well as BUN/CR [facility] consulted Patient is SBA for transfers Objective Physician Exam Last Set of Vital Signs Vital Signs Date Time Temp Pulse Resp B/P (MAP) Pulse Ox O2 Delivery O2 Flow Rate FiO2 10/09/17 11:32 Nasal Cannula 3.00 10/09/17 05:28 97.4 53 20 162/67 (98) 100 Capillary Refill : I&O Intake and Output 10/09/17 00:00 Intake Total 1890 ml Balance 1890 ml Intake Oral 1890 ml # Voids 7 # Bowel Movements 1 General: Alert, Oriented X3, Cooperative, No Acute Distress, Other (The patient is seen in her room this AM She is having some bleeding from injection sites will need to alternate sites She is doing grooming in her bathroom at the wc level) HEENT: Atraumatic, PERRLA, EOMI, Mucous Memb Moist/[place] Neck: Supple, No JVD Lungs: Clear to Auscultation Heart: Regular Rate Abdomen: Normal Bowel Sounds Extremities: Other (Chronic edema and skin changes with hx of DVT rt leg) Neuro: Sensation Intact (Diminished to touch in feet), Other (Strength 4-/5 Both UES and Lower extremities) Psych/Mental Status: Other (Cognition intact) Results Lab Data Laboratory Tests 10/06/17 20:28: Glucometer 317H 10/07/17 05:47: Glucometer 187H 10/07/17 11:18: Glucometer 114H 10/07/17 16:03: Glucometer 172H 10/07/17 20:30: Glucometer 166H 10/08/17 05:02: Glucometer 144H 10/08/17 11:20: Glucometer 197H 10/08/17 16:03: Glucometer 150H 10/08/17 20:22: Glucometer 169H 10/09/17 06:02: Glucometer 163H 10/09/17 06:26: White Blood Count 4.7, Red Blood Count 3.28L, Hemoglobin 9.7L, Hematocrit 31L, Mean Corpuscular Volume 93, Mean Corpuscular Hemoglobin 30, Mean Corpuscular Hemoglobin Concent 32, Red Cell Distribution Width 14.1, Platelet Count 221, Mean Platelet Volume 10.0, Sodium Level 139, Potassium Level 5.7H, Chloride Level 111H, Carbon Dioxide Level 19L, Anion Gap 9, Blood Urea Nitrogen 71H, Creatinine 2.44H, Estimat Glomerular Filtration Rate 20, BUN/Creatinine Ratio 29 , Glucose Level 162H, Calcium Level 9.5 10/09/17 09:30: Potassium Level 5.9H 10/09/17 12:11: Glucometer 134H 10/09/17 16:47: Glucometer 175H Assessment/Plan Assessment and Plan Left CVA with Rt HP HTN CKD with elevated BUN and creatinine Hypoventilation syndrome on02 IDDM Diabetic peripheral neuropathy HX of multiple TIAS Hx of DVT rt leg with Inferior vena cava filter placement Iron Def anemia Renal osteodystrophy CAD Plan Continue PT/OT F/U labs with [facility] Team Conference 10-11-17 Julio See orders (1) CVA (cerebral vascular accident) Status: Acute (2) Cerebrovascular disease or lesion Status: Chronic Co-Morbidities that are continuing to impact the rehab process: (include details ) NAPOLEON IVAN MD Oct 09, 2017 17:49
[2017-10-09] MEDS: ACETAMINOPHEN 500 MG TAB (TYLENOL) PO PRN (18:08)
[2017-10-09] MEDS: VITAMIN D3 5,000 UNITS (CHOLECALCIFEROL ) CAPSULE PO SCH (20:22)
[2017-10-09] MEDS: MAGNESIUM OXIDE (MAG-OX)400 MG TAB PO SCH (20:23)
[2017-10-09] MEDS: ROSUVASTATIN 20 MG (CRESTOR) TABLET PO SCH (20:23)
[2017-10-09] MEDS: ASPIRIN E.C. 81 MG (ECOTRIN) TAB PO SCH (20:23)
[2017-10-09] MEDS: LOSARTAN 100 MG (COZAAR) TABLET PO SCH (20:23)
[2017-10-09] MEDS: MULTIVIT W/MINERALS TAB (THERAGRAN M) PO SCH (20:23)
[2017-10-09] MEDS: HYDROcodone/APAP 5 MG/325 MG (LORTAB) TAB PO PRN (20:51)
--- NOTE | 2017-10-09 22:08 | Progress Note (SOAP) ---
Subjective Subjective/Events-last exam Called to see patient today by nurse due to abnormal labs Patient states that she is doing well with Rehab. Denies any chest pains or palpitations. Review of Systems Date Seen by Provider: Oct 09, 2017 Time Seen by Provider: 11:15 Pulmonary: No Dyspnea, No Cough Cardiovascular: No: Chest Pain, Palpitations, Edema Gastrointestinal: No: Nausea, Vomiting, Abdominal Pain, Diarrhea, Constipation Objective Exam Last Set of Vital Signs Vital Signs Date Time Temp Pulse Resp B/P (MAP) Pulse Ox O2 Delivery O2 Flow Rate FiO2 10/09/17 20:15 Nasal Cannula 3.00 10/09/17 17:37 98.0 58 20 155/64 (94) 98 Capillary Refill : I&O Intake and Output 10/09/17 00:00 Intake Total 1890 ml Balance 1890 ml Intake Oral 1890 ml # Voids 7 # Bowel Movements 1 General: Alert, Oriented X3, Cooperative, No Acute Distress Lungs: Clear to Auscultation, Normal Air Movement Heart: Regular Rate, No Murmurs Abdomen: Normal Bowel Sounds, Soft, No Tenderness, No Hepatosplenomegaly, No Masses Extremities: No Edema, No Tenderness/Swelling Results/Procedures Lab Laboratory Tests 10/09/17 06:02: Glucometer 163H 10/09/17 06:26: White Blood Count 4.7, Red Blood Count 3.28L, Hemoglobin 9.7L, Hematocrit 31L, Mean Corpuscular Volume 93, Mean Corpuscular Hemoglobin 30, Mean Corpuscular Hemoglobin Concent 32, Red Cell Distribution Width 14.1, Platelet Count 221, Mean Platelet Volume 10.0, Sodium Level 139, Potassium Level 5.7H, Chloride Level 111H, Carbon Dioxide Level 19L, Anion Gap 9, Blood Urea Nitrogen 71H, Creatinine 2.44H, Estimat Glomerular Filtration Rate 20, BUN/Creatinine Ratio 29 , Glucose Level 162H, Calcium Level 9.5 10/09/17 09:30: Potassium Level 5.9H 10/09/17 12:11: Glucometer 134H 10/09/17 16:47: Glucometer 175H 10/09/17 20:21: Glucometer 174H Assessment/Plan Assessment/Plan (1) Hyperkalemia Status: Acute Assessment & Plan: - Repeat in AM, if remains elevated with treat (2) History of DVT (deep vein thrombosis) Status: Chronic (3) CKD (chronic kidney disease) stage 4, GFR 15-29 ml/min Status: Chronic Assessment & Plan: - Cr at patient's baseline (4) CVA (cerebral vascular accident) Status: Acute Assessment & Plan: - Currently in IRF Clinical Quality Measures DVT/VTE Risk/Contraindication: Risk Factor Score Per Nursin RFS Level Per Nursing on Admit: 4+=Very High JENN MCDONALD MD Oct 09, 2017 22:08
[2017-10-10] MEDS: HYDROcodone/APAP 5 MG/325 MG (LORTAB) TAB PO PRN ×2 (02:22→17:49)
[2017-10-10 05:09] VITALS: BP 138/70
[2017-10-10] MEDS: hydrALAZINE (APRESOLINE) 25 MG TAB PO SCH ×3 (05:30→18:53)
[2017-10-10] MEDS: CATHETER FLUSH 10 ML SYR IV SCH ×3 (05:35→21:14)
[2017-10-10] MEDS: inSUlin ASPART (NovoLOG) 1 UNIT/0.01 ML (CHARGE PER UNIT) SC SCH ×7 (05:35→20:40)
[2017-10-10 06:03] LABS: CALCIUM 9.1 MG/DL (8.5-10.1); CREATININE SERUM 2.54 MG/DL (0.60-1.30); MAGNESIUM 2.2 MG/DL (1.8-2.4); POTASSIUM 5.4 MMOL/L (3.6-5.0)
[2017-10-10] MEDS: ACETAMINOPHEN 500 MG TAB (TYLENOL) PO PRN (06:42)
[2017-10-10] MEDS ORDERED: SOD POLYSTERENE 15 GM/60 ML (KAYEXALATE) UNIT DOSE PO NR (07:45)
--- NOTE | 2017-10-10 07:49 | Occupational Ther Daily Note ---
OT Current Status-Daily Note Subjective Pt alert, sitting in recliner finishing breakfast. Pt agrees to therapy. Asked about being up in room ad melissa so she could walk more. No c/o pain. Mental Status/Objective Patient Orientation: Person, Place, Time, Situation Functional [place] Measure 0=Not Assessed/NA 4=Minimal Assistance 1=Total Assistance 5=Supervision or Setup 2=Maximal Assistance 6=Modified [place] 3=Moderate Assistance 7=Complete [place] Attachments: Oxygen ADL-Treatment Functional [place] Measure 0=Not Assessed/NA 4=Minimal Assistance 1=Total Assistance 5=Supervision or Setup 2=Maximal Assistance 6=Modified [place] 3=Moderate Assistance 7=Complete IndependenceIRFPAI Quality Coding Scale 6 Independent with activity with or without an assistive device 5 Patient requires set up or clean up by helper. Patient completes activity by themselves 4 Supervision or touching assist (CGA). [place] provide cues , steadying assist 3 The helper provides less than half the effort to complete the activity 2 The helper provides more than half the effort to complete the activity 1 Dependent. The helper does all the effort to complete an activity 7 Patient refused to complete or attempt activity 9 The patient did not perform the activity before the current illness or injury 88 Not attempted due to Medical conditions or safety concerns Eating (FIM): 7 (Pt completes own set up, uses regular utensils to eat.) Eating (QC): 6 Grooming (FIM): 6 (Using 4WW and counter, pt is able to complete own grooming.) Oral Hygiene (QC): 6 Upper Body (FIM): 6 (Pt retrieves own clothing with 4WW, dons/doffs by self.) Upper Body Dressing (QC): 6 Lower Body Dressing (FIM): 6 (Retrieves clothing with 4WW, dons/doffs using AE by self.) Lower Body Dressing (QC): 6 On/Off Footwear (QC): 6 Toileting (FIM): 6 (Using 4WW and grabbars, pt completes by self.) Toileting Hygiene (QC): 6 Toilet/Commode Transfer (FIM): 6 (Using 4WW and grabbars, transfers by self.) Toilet Transfer (QC): 6 Other Treatment Pt ambulated to therapy gym using 4WW. Completed arm bike duration 10 min with no resistance, no recovery breaks, to increase activity tolerance and strengthening for daily functional tasks. Resistive pegs, 25 each hand, completed to increase pinch and asset protection professional strength for functional fine motor tasks. Pt ambulated back to room and sat in chair after therapy. Call light/phone in reach. O2 in place and all needs met in room. OT Short Term Goals Short Term Goals Time Frame: Oct 19, 2017 Grooming(FIM): 6 Bathing(FIM): 5 Bathing Location: L Arm, R Arm, L Upper Leg, R Upper Leg, L Lower Leg ( including foot), R Lower Leg (including foot), Chest, Abdomen, Buttocks, Perineal Area Upper Body Dressing(FIM): 6 Lower Body Dressing(FIM): 5 Toileting(FIM): 5 Transfers (B,C,W/C) (FIM): 5 Toilet/Commode Transfer(FIM): 5 Additional Short Term Goals: 3-ImproveStrength/Jaylene 1=Demonstrate adherence to instructed precautions during ADL tasks. 2=Patient will verbalize/demonstrate understanding of assistive devices/ modifications for ADL. 3=Patient will improve strength/tolerance for activity to enable patient to perform ADL's. OT Website Developer Goals Retirement Goals Time Frame: Oct 26, 2017 Eating (FIM): 7 Eating (QC): 6 Groomin Oral Hygiene (QC): 6 Bathing(FIM): 6 Bathing Location: L Arm, R Arm, L Upper Leg, R Upper Leg, L Lower Leg ( including foot), R Lower Leg (including foot), Chest, Abdomen, Buttocks, Perineal Area Shower/Bathe Self (QC): 6 Upper Body Dressing(FIM): 6 Upper Body Dressing (QC): 6 Lower Body Dressing(FIM): 6 Lower Body Dressing (QC): 6 On/Off Footwear (QC): 6 Toileting(FIM): 6 Toileting Hygiene (QC): 6 Transfers (B,C,W/C) (FIM): 6 Toilet/Commode Transfer(FIM): 6 Toilet/Commode Transfer (QC): 6 Shower Transfer(FIM): 6 Additional Goals: 1-Demonstrate ADL Tasks, 2-Verbalize Understanding, 3- ImproveStrength/Jaylene 1=Demonstrate adherence to instructed precautions during ADL tasks. 2=Patient will verbalize/demonstrate understanding of assistive devices/ modifications for ADL. 3=Patient will improve strength/tolerance for activity to enable patient to perform ADL's. OT Education/Plan Discharge Recommendations Plan/Recommendations: Continue POC Treatment Plan/Plan of Care Patient would benefit from OT for education, treatment and training to promote independence in ADL's, mobility, safety and/or upper extremity function for ADL' s. Plan of Care: ADL Retraining, Functional Mobility, Group Exercise/Act as Ind, UE Funct Exercise/Act Treatment Duration: Oct 26, 2017 Frequency: At least 5 of 7 days/Wk (IRF) Estimated Hrs Per Day: 1.5 hours per day Rehab Potential: Guarded Time/GCodes Start Time: 07:00 Stop Time: 08:00 Total Time Billed (hr/min): 60 Billed Treatment Time 1 visit-ADL 2 (35 min) EX 2 (25 min) ERROL KEENE Oct 10, 2017 07:49
--- NOTE | 2017-10-10 08:24 | PM & R (SOAP) Progress Note ---
Subjective This was a face to face visit with the patient. Date Seen by Provider: Oct 10, 2017 Time Seen by Provider: 08:20 Subjective/Events-last exam Patient was seen in her room this AM Appreciate Dr Schuler note.Current labs noted. Patient SBA for transfers. Objective Physician Exam Last Set of Vital Signs Vital Signs Date Time Temp Pulse Resp B/P (MAP) Pulse Ox O2 Delivery O2 Flow Rate FiO2 10/10/17 05:09 98.0 62 18 138/70 (92) 100 NIV CPAP 3.00 Capillary Refill : I&O Intake and Output 10/10/17 00:00 Intake Total 1325 ml Balance 1325 ml Intake Oral 1325 ml # Voids 8 # Bowel Movements 4 General: Alert, Oriented X3, Cooperative, No Acute Distress HEENT: Atraumatic, PERRLA, EOMI, Mucous Memb Moist/[place] Neck: Supple, No JVD Lungs: Clear to Auscultation, Normal Air Movement Heart: Regular Rate, No Murmurs Abdomen: Normal Bowel Sounds, Soft, No Tenderness, No Hepatosplenomegaly, No Masses Extremities: No Edema, No Tenderness/Swelling Neuro: Sensation Intact (Diminished to touch in feet), Other (Strength 4-/5 Both UES and Lower extremities) Psych/Mental Status: Other (Cognition intact) Results Lab Data Laboratory Tests 10/07/17 11:18: Glucometer 114H 10/07/17 16:03: Glucometer 172H 10/07/17 20:30: Glucometer 166H 10/08/17 05:02: Glucometer 144H 10/08/17 11:20: Glucometer 197H 10/08/17 16:03: Glucometer 150H 10/08/17 20:22: Glucometer 169H 10/09/17 06:02: Glucometer 163H 10/09/17 06:26: White Blood Count 4.7, Red Blood Count 3.28L, Hemoglobin 9.7L, Hematocrit 31L, Mean Corpuscular Volume 93, Mean Corpuscular Hemoglobin 30, Mean Corpuscular Hemoglobin Concent 32, Red Cell Distribution Width 14.1, Platelet Count 221, Mean Platelet Volume 10.0, Sodium Level 139, Potassium Level 5.7H, Chloride Level 111H, Carbon Dioxide Level 19L, Anion Gap 9, Blood Urea Nitrogen 71H, Creatinine 2.44H, Estimat Glomerular Filtration Rate 20, BUN/Creatinine Ratio 29 , Glucose Level 162H, Calcium Level 9.5 10/09/17 09:30: Potassium Level 5.9H 10/09/17 12:11: Glucometer 134H 10/09/17 16:47: Glucometer 175H 10/09/17 20:21: Glucometer 174H 10/10/17 05:30: Sodium Level 139, Potassium Level 5.4H, Chloride Level 110H, Carbon Dioxide Level 18L, Anion Gap 11, Blood Urea Nitrogen 77H, Creatinine 2.54H, Estimat Glomerular Filtration Rate 19, BUN/Creatinine Ratio 30, Glucose Level 118H, Calcium Level 9.1, Magnesium Level 2.2 10/10/17 05:35: Glucometer 126H Assessment/Plan Assessment and Plan Left CVA with RT HP HTN controlled CKD stage 4 cr baseline as per DR Byrd Hyperkalemia improving with kayexelate Hypoventilation syndrome on 02 IDDM Diabetic Peripheral neuropathy HX of multiple TIAS HX of DVT RT leg s/p IVC filter placement Iron def anemia Renal osteodystrophy s/p Nephrostomy tube in past CAD Plan Continue PT/OT Monitor labs Team Conference tomorrow (1) CVA (cerebral vascular accident) Status: Acute (2) Cerebrovascular disease or lesion Status: Chronic Co-Morbidities that are continuing to impact the rehab process: (include details ) NAPOLEON IVAN MD Oct 10, 2017 08:23
[2017-10-10] MEDS: meTOprolol SUCCINATE 100 MG (TOPROL XL) TAB PO SCH (08:36)
[2017-10-10] MEDS: GABAPENTIN 100 MG (NEURONTIN) CAP PO SCH ×3 (08:36→21:14)
[2017-10-10] MEDS: CALCIUM CARB + VIT D 600 MG (CALCARB + D) TAB PO SCH ×3 (08:36→21:14)
[2017-10-10] MEDS: CLOPIDOGREL 75 MG (PLAVIX) TABLET PO SCH (08:36)
[2017-10-10] MEDS: doxAzosin 2 MG (CARDURA) TAB PO SCH ×2 (08:36→21:16)
[2017-10-10] MEDS: OMEGA 3 (FISH OIL) 1000 MG CAP PO SCH ×3 (08:36→21:14)
[2017-10-10] MEDS: inSUlin DETERMIR 1 UNIT/0.01 ML (LEVEMIR) CHARGE PER UNIT SQ SCH ×2 (08:39→21:15)
[2017-10-10] MEDS: POLYETHYLENE GLYCOL 17 GM (MIRALAX) PACK PO SCH ×2 (08:39→21:15)
[2017-10-10] MEDS: LACTULOSE SYRUP 10GM/15ML (ENULOSE) 30ML UDC PO SCH ×2 (08:39→21:16)
[2017-10-10 09:10] LABS: HEMOGLOBIN 9.1 G/DL (11.5-16.0); MEAN PLATELET VOLUME 9.8 FL (7.4-10.4); RED BLOOD COUNT 3.16 10^6/uL (4.35-5.85); RED CELL DISTRIBUTION WIDTH 14.2 % (10.0-14.5); WHITE BLOOD COUNT 5.4 10^3/uL (4.3-11.0)
[2017-10-10] MEDS: Brinzolamide/Brimonidine Tart (Simbrinza) 1%-0.2% Eye Drops OU SCH ×2 (09:27→21:14)
--- NOTE | 2017-10-10 09:56 | Physical Therapy Daily Note ---
PT Daily Note-Current Subjective Patient in recliner pre tx agrees to PT, has been having pain in her right low back and right knee but none currently. Patient states that nursing gave her some laxatives and she may need to use the restroom during therapy. Patient expresses desire to be independent in her room but she scored a 22/28 on the Tinetti and it was recommended at she continue to call nursing if she has to get up. Appearance Patient in recliner post tx with nurse call, phone, tray, all needs met. Mental Status Patient Orientation: Person, Place, Situation Attachments: Oxygen 3L of O2 nasal canula Transfers Functional [place] Measure 0=Not Assessed/NA 4=Minimal Assistance 1=Total Assistance 5=Supervision or Setup 2=Maximal Assistance 6=Modified [place] 3=Moderate Assistance 7=Complete IndependenceIRFPAI Quality Coding Scale 6 Independent with activity with or without an assistive device 5 Patient requires set up or clean up by helper. Patient completes activity by themselves 4 Supervision or touching assist (CGA). [place] provide cues , steadying assist 3 The helper provides less than half the effort to complete the activity 2 The helper provides more than half the effort to complete the activity 1 Dependent. The helper does all the effort to complete an activity 7 Patient refused to complete or attempt activity 9 The patient did not perform the activity before the current illness or injury 88 Not attempted due to Medical conditions or safety concerns Transfers (B, C, W/C) (FIM): 5 Sit to/from Stand: 5 Bed to/from Chair: 5 Patient needs cues to reach back for armrests when sitting. Weight Bearing Right Lower Extremity: Right Full Weight Bearing Left Lower Extremity: Left Full Weight Bearing Gait Training Gait (FIM): 5 Distance: 200'x2, 100' Gait Level of Assist: 5 Gait Persons Needed: 1 Gait Assistive Device: FWW slow but steady ambulation Exercises Seated Therapy Exercises: Ankle pumps, Hip flexion Seated Reps: 20 LAQ alternating for 5 min NuStep Minutes: 15 NuStep Workload: 4 Neuromuscular Tinetti performed and scored 22/28 Treatments transfers, balance training, ambulation, functional strengthening, patient was toileted once for a BM but she states she only had gas, she was able to slide her pants down and pull them up without assist Assessment Current Status: Fair Progress Improving endurance but patient still needs occasional rest breaks. PT Short Term Goals Short Term Goals Transfers (B,C,W/C) (FIM): 5 PT Usp Goals Usp Goals PT Box Folding Machine Operator Goals Time Frame: Oct 13, 2017 Transfers (B,C,W/C) (FIM): 6 Sit to Lying (QC): 6 Lying-Sitting on Side/Bed(QC): 6 Sit to Stand (QC): 6 Rollin Roll Left to Right (QC): 6 Chair/[id number] Xfer(QC): 6 Car Transfer (QC): 6 Does the Patient Walk: Yes Gait (FIM): 6 Gait distance (FIM): 3=150 ft (with negotiating O2 tubing in and around room) Distance: 150' Walk 10 feet (QC): 6 Walk 10ft-Uneven Surface(QC): 6 Walk 50ft with 2 Turns (QC): 6 Walk 150 ft (QC): 6 Gait Level of Assist: 6 Gait Assistive Device: Walker 4 Wheeled Stairs (FIM): 1 # of Steps: 1 1 Step (curb) (QC): 6 4 Steps (QC): 9 12 Steps (QC): 9 Stairs Level Of Assist: 6 Picking up an Object (QC): 5 PT Plan Problem List Problem List: Activity Tolerance, Functional Strength, Safety, Balance, Gait, Transfer, Bed Mobility, ROM Treatment/Plan Treatment Plan: Continue Plan of Care Treatment Plan: Bed Mobility, Education, Functional Activity Jaylene, Functional Strength, Group Therapy, Gait, Safety, Therapeutic Exercise, Transfers Treatment Duration: Oct 13, 2017 Frequency: At least 5 of 7 days/Wk (IRF) Estimated Hrs Per Day: 1.5 hours per day Patient and/or Family Agrees t: Yes Safety Risks/Education Patient Education: Gait Training, Transfer Techniques, Correct Positioning, Safety Issues Teaching Recipient: Patient Teaching Methods: Demonstration, Discussion Response to Teaching: Reinforcement Needed Time/GCodes Time In: 0900 Time Out: 1000 Total Billed Treatment Time: 60 Total Billed Treatment 1 visit NM 10' EX 30' GT 20' JAQUI ELISE PT Oct 10, 2017 09:56
--- NOTE | 2017-10-10 10:44 | Progress Note-Cardiology ---
Cardiology SOAP Progress Note Subjective: Up in the room with PT. No c/o CP. Chronic dyspnea which is unchanged. Objective: I&O/Vital Signs 10/10/17 10/10/17 09:00 09:59 Pulse Ox 98 O2 Delivery Nasal Cannula Nasal Cannula O2 Flow Rate 3.00 3.00 10/10/17 00:00 Intake Total 875 ml Balance 875 ml Weight (Pounds): 317 Weight (Ounces): 0.0 Weight (Calculated Kilograms): 143.976734 Constitutional: AAO x 3, well-developed, well-nourished Respiratory: chest expansion is symmetric, chest is bilaterally symmetric, other (good air entry bilat) Cardiovascular: regular rate-rhythm; No JVD; S1 and S2 Gastrointestional: soft, round, audible bowel sounds Extremities: significant edema (mod bilat non-pitting edema) Neurologic/Psychiatric: grossly intact Skin: No rash, No ulcerations Results/Procedures: Labs Laboratory Tests 10/09/17 20:21: Glucometer 174H 10/10/17 05:30: Sodium Level 139, Potassium Level 5.4H, Chloride Level 110H, Carbon Dioxide Level 18L, Anion Gap 11, Blood Urea Nitrogen 77H, Creatinine 2.54H, Estimat Glomerular Filtration Rate 19, BUN/Creatinine Ratio 30, Glucose Level 118H, Calcium Level 9.1, Magnesium Level 2.2 10/10/17 05:35: Glucometer 126H 10/10/17 09:00: White Blood Count 5.4, Red Blood Count 3.16L, Hemoglobin 9.1L, Hematocrit 29L, Mean Corpuscular Volume 93, Mean Corpuscular Hemoglobin 29, Mean Corpuscular Hemoglobin Concent 31L, Red Cell Distribution Width 14.2, Platelet Count 219, Mean Platelet Volume 9.8 10/10/17 11:10: Glucometer 133H 10/10/17 15:58: Glucometer 142H A/P: Assessment: Uncontrolled hypertension - improved Hypertensive encephalopathy vs CVA (managed by Dr Pedro) Coronary artery disease with a history of coronary stenting in early [address] Hairston. The patient is stated to have received Promus 2.25 x 32 mm stent in the distal left anterior descending and Promus 2.25 x 28 mm stent in the left circumflex. These stents were patent on last cath of 03/25/14, but she underwent additional stenting: distal LAD with MiniVision 2x12 and proximal first diagonal with Promus Mike 2.5x12. The RCA was dominant and with mild plaques at the time of last cath of 03/25/14. LVEDP was mildly elevated. CAD is currently clinically stable. Last MPI of 03/22/16 showed no evidence of myocard ischemia or infarction, normal wall motion and LVEF 65% Hyperkalemia Echo of 03/21/16 was a technically difficult study, but showed LVEF 65%, trivial to mild MR & TR, mild AoV sclerosis w/o stenosis, PASP WNL H/o osteomyelitis of the R great toe managed by Dr Alex of the [facility] in [place], [place] Normal ABIs on 02/24/16 Carotid arterial disease with history of right carotid endarterectomy. Last carotid ultrasound of 07/24/17 showed 60-79% R ICA and less than 40% L ICA stenoses Maturity onset diabetes mellitus. Hyperlipidemia being treated with atorvastatin. Chronic kidney disease, stage IV, being managed by Dr Sarmad Varghese. Chronic anemia, likely related to chronic kidney disease, managed by Dr Augustin. H/o urinary tract infections, being managed by her pcp History of chronic, recurrent deep venous thrombosis. History of inferior vena cava placement by Dr. Duvall in September 2011. History of left venous port placement by Dr. Duvall. The patient is a Jehovahs Witness and does not wish to ever receive any blood transfusions and is not, therefore, considered an ideal candidate for oral anticoagulation Chronic generalized body pains, including chest pains, non-specific, unchanged Chronic leg swelling and stasis dermatitis, likely related to venous insufficiency and calcium channel donna therapy, unchanged Obesity with hypoventilation syndrome; BMI 52 Isolated PACs recorded on Event Monitor transmissions of Mar 2014. Sleep apnea syndrome, being managed by Dr Fernandez Chronic back pain Plan: Plan: * Complex management due to multiple comorbidities * Monitor labs * PT/OT per medical services * Hyperkalemia x 2 days treated with Kayexalate * Worsening Cr and hyperkalemia likely in some part d/t losartan. Therefore, we will stop it. This will likely cause her BP to go up. We will increase her Hydralazine to 50mg TID Physician Assessment Physician Assessment No cp or palp or syncope Lungs: fair to good bilat air entry Cor: reg Ext: no c/c; chronic bilat nonpitting edema of the legs A&R * As documented in our note above that I updated (italics) * BP meds adjusted: d/c ARB because of hyperkalemia; increase hydralazine for bp control * Monitor labs [employer] Oct 10, 2017 10:44 TRELL GERONIMO MD FACP FAC CCDS Oct 10, 2017 17:42
--- NOTE | 2017-10-10 11:42 | Occupational Ther Daily Note ---
OT Current Status-Daily Note Subjective Pt alert, sitting in recliner. Pt agrees to therapy. No c/o pain at this time. Mental Status/Objective Patient Orientation: Person, Place, Time, Situation Functional [place] Measure 0=Not Assessed/NA 4=Minimal Assistance 1=Total Assistance 5=Supervision or Setup 2=Maximal Assistance 6=Modified [place] 3=Moderate Assistance 7=Complete [place] Attachments: Oxygen ADL-Treatment Functional [place] Measure 0=Not Assessed/NA 4=Minimal Assistance 1=Total Assistance 5=Supervision or Setup 2=Maximal Assistance 6=Modified [place] 3=Moderate Assistance 7=Complete IndependenceIRFPAI Quality Coding Scale 6 Independent with activity with or without an assistive device 5 Patient requires set up or clean up by helper. Patient completes activity by themselves 4 Supervision or touching assist (CGA). [place] provide cues , steadying assist 3 The helper provides less than half the effort to complete the activity 2 The helper provides more than half the effort to complete the activity 1 Dependent. The helper does all the effort to complete an activity 7 Patient refused to complete or attempt activity 9 The patient did not perform the activity before the current illness or injury 88 Not attempted due to Medical conditions or safety concerns Toileting (FIM): 6 (Pt able to complete toileting by self using FWW and grabbars.) Toileting Hygiene (QC): 6 Toilet/Commode Transfer (FIM): 6 (Using FWW and grabbars pt able to complete transfer.) Toilet Transfer (QC): 6 Other Treatment Pt ambulated to [facility] to complete UE and fine motor activity to work on strengthening of UE's, pinch and chummer strength. 1# wt attached to wrists throughout activities for strengthening and activity tolerance. Pt tolerated well, completed movements slowly to conserve energy. After therapy, pt sitting in recliner with call light/phone in reach. All needs met in room. OT Short Term Goals Short Term Goals Time Frame: Oct 19, 2017 Grooming(FIM): 6 Bathing(FIM): 5 Bathing Location: L Arm, R Arm, L Upper Leg, R Upper Leg, L Lower Leg ( including foot), R Lower Leg (including foot), Chest, Abdomen, Buttocks, Perineal Area Upper Body Dressing(FIM): 6 Lower Body Dressing(FIM): 5 Toileting(FIM): 5 Transfers (B,C,W/C) (FIM): 5 Toilet/Commode Transfer(FIM): 5 Additional Short Term Goals: 3-ImproveStrength/Jaylene 1=Demonstrate adherence to instructed precautions during ADL tasks. 2=Patient will verbalize/demonstrate understanding of assistive devices/ modifications for ADL. 3=Patient will improve strength/tolerance for activity to enable patient to perform ADL's. OT Usp Goals Usp Goals Time Frame: Oct 26, 2017 Eating (FIM): 7 Eating (QC): 6 Groomin Oral Hygiene (QC): 6 Bathing(FIM): 6 Bathing Location: L Arm, R Arm, L Upper Leg, R Upper Leg, L Lower Leg ( including foot), R Lower Leg (including foot), Chest, Abdomen, Buttocks, Perineal Area Shower/Bathe Self (QC): 6 Upper Body Dressing(FIM): 6 Upper Body Dressing (QC): 6 Lower Body Dressing(FIM): 6 Lower Body Dressing (QC): 6 On/Off Footwear (QC): 6 Toileting(FIM): 6 Toileting Hygiene (QC): 6 Transfers (B,C,W/C) (FIM): 6 Toilet/Commode Transfer(FIM): 6 Toilet/Commode Transfer (QC): 6 Shower Transfer(FIM): 6 Additional Goals: 1-Demonstrate ADL Tasks, 2-Verbalize Understanding, 3- ImproveStrength/Jaylene 1=Demonstrate adherence to instructed precautions during ADL tasks. 2=Patient will verbalize/demonstrate understanding of assistive devices/ modifications for ADL. 3=Patient will improve strength/tolerance for activity to enable patient to perform ADL's. OT Education/Plan Discharge Recommendations Plan/Recommendations: Continue POC Treatment Plan/Plan of Care Patient would benefit from OT for education, treatment and training to promote independence in ADL's, mobility, safety and/or upper extremity function for ADL' s. Plan of Care: ADL Retraining, Functional Mobility, Group Exercise/Act as Ind, UE Funct Exercise/Act Treatment Duration: Oct 26, 2017 Frequency: At least 5 of 7 days/Wk (IRF) Estimated Hrs Per Day: 1.5 hours per day Rehab Potential: Guarded Time/GCodes Start Time: 10:25 Stop Time: 10:55 Total Time Billed (hr/min): 30 Billed Treatment Time 1 visit-ADL 1 (15 min) EX 1 (15 min) ERROL KEENE Oct 10, 2017 11:42
--- NOTE | 2017-10-10 13:47 | Physical Therapy Daily Note ---
PT Daily Note-Current Subjective Patient agrees to PT. Pain Numeric Pain Scale: 0-No Pain Location: No Pain Reported Mental Status Patient Orientation: Normal For Age Attachments: Oxygen Transfers Functional [place] Measure 0=Not Assessed/NA 4=Minimal Assistance 1=Total Assistance 5=Supervision or Setup 2=Maximal Assistance 6=Modified [place] 3=Moderate Assistance 7=Complete IndependenceIRFPAI Quality Coding Scale 6 Independent with activity with or without an assistive device 5 Patient requires set up or clean up by helper. Patient completes activity by themselves 4 Supervision or touching assist (CGA). [place] provide cues , steadying assist 3 The helper provides less than half the effort to complete the activity 2 The helper provides more than half the effort to complete the activity 1 Dependent. The helper does all the effort to complete an activity 7 Patient refused to complete or attempt activity 9 The patient did not perform the activity before the current illness or injury 88 Not attempted due to Medical conditions or safety concerns Transfers (B, C, W/C) (FIM): 6 Scootin Sit to/from Stand: 6 Sit to Stand (QC): 5 Weight Bearing Right Lower Extremity: Right Full Weight Bearing Left Lower Extremity: Left Full Weight Bearing Gait Training Does the Patient Walk?: Yes Gait (FIM): 6 Distance (FIM): 3=150 ft Distance: 250' x 2 Walk 10 feet (QC): 5 Walk 50 ft with 2 Turns(QC): 5 Walk 150 ft (QC): 5 Gait Level of Assist: 6 Gait Assistive Device: Walker 4 Wheeled safe and functional Exercises Seated Therapy Exercises: Ankle pumps, Long arc quads, Hip flexion Seated Reps: 25 (2 sets) Standin way Ex=Flex, Abd, Ext, Mini squats Standing Reps: 25 (2 sets) Assessment Patient tolerated treatment well and returned to room with needs met. PT Short Term Goals Short Term Goals Transfers (B,C,W/C) (FIM): 5 PT Care Home Goals Care Home Goals PT Care Home Goals Time Frame: Oct 13, 2017 Transfers (B,C,W/C) (FIM): 6 Sit to Lying (QC): 6 Lying-Sitting on Side/Bed(QC): 6 Sit to Stand (QC): 6 Rollin Roll Left to Right (QC): 6 Chair/Fzo-ue-Dgtro Xfer(QC): 6 Car Transfer (QC): 6 Does the Patient Walk: Yes Gait (FIM): 6 Gait distance (FIM): 3=150 ft (with negotiating O2 tubing in and around room) Distance: 150' Walk 10 feet (QC): 6 Walk 10ft-Uneven Surface(QC): 6 Walk 50ft with 2 Turns (QC): 6 Walk 150 ft (QC): 6 Gait Level of Assist: 6 Gait Assistive Device: Walker 4 Wheeled Stairs (FIM): 1 # of Steps: 1 1 Step (curb) (QC): 6 4 Steps (QC): 9 12 Steps (QC): 9 Stairs Level Of Assist: 6 Picking up an Object (QC): 5 PT Plan Treatment/Plan Treatment Plan: Continue Plan of Care Treatment Plan: Bed Mobility, Education, Functional Activity Jaylene, Functional Strength, Group Therapy, Gait, Safety, Therapeutic Exercise, Transfers Treatment Duration: Oct 13, 2017 Frequency: At least 5 of 7 days/Wk (IRF) Estimated Hrs Per Day: 1.5 hours per day Patient and/or Family Agrees t: Yes Time/GCodes Time In: 1300 Time Out: 1330 Total Billed Treatment Time: 30 Total Billed Treatment 1 visit EX 16 min FA 14 min LANDON MALDONADO PT Oct 10, 2017 13:47
[2017-10-10 18:00] VITALS: BP 151/73
[2017-10-10] MEDS: MULTIVIT W/MINERALS TAB (THERAGRAN M) PO SCH (21:14)
[2017-10-10] MEDS: VITAMIN D3 5,000 UNITS (CHOLECALCIFEROL ) CAPSULE PO SCH (21:14)
[2017-10-10] MEDS: ROSUVASTATIN 20 MG (CRESTOR) TABLET PO SCH (21:14)
[2017-10-10] MEDS: MAGNESIUM OXIDE (MAG-OX)400 MG TAB PO SCH (21:14)
[2017-10-10] MEDS: ASPIRIN E.C. 81 MG (ECOTRIN) TAB PO SCH (21:14)
[2017-10-11 03:00] VITALS: BP 136/74
[2017-10-11] MEDS: HYDROcodone/APAP 5 MG/325 MG (LORTAB) TAB PO PRN (03:06)
[2017-10-11] MEDS: hydrALAZINE (APRESOLINE) 25 MG TAB PO SCH ×3 (03:06→17:51)
[2017-10-11] MEDS: inSUlin ASPART (NovoLOG) 1 UNIT/0.01 ML (CHARGE PER UNIT) SC SCH ×7 (05:08→20:03)
[2017-10-11] MEDS: CATHETER FLUSH 10 ML SYR IV SCH (05:08)
[2017-10-11 05:52] LABS: CALCIUM 8.6 MG/DL (8.5-10.1); CREATININE SERUM 2.51 MG/DL (0.60-1.30); MAGNESIUM 2.7 MG/DL (1.8-2.4)
[2017-10-11 05:54] LABS: POTASSIUM 6.4 MMOL/L (3.6-5.0)
[2017-10-11] MEDS ORDERED: SOD POLYSTYRENE 30 GM/120 ML (KAYEXALATE) BULK BOTTLE PR NR ×2 (07:15→14:00)
[2017-10-11 07:25] VITALS: BP 137/57
--- NOTE | 2017-10-11 07:42 | Occupational Ther Daily Note ---
OT Current Status-Daily Note Subjective Pt alert, sitting in recliner. Pt agrees to therapy. No c/o pain at this time. Mental Status/Objective Patient Orientation: Person, Place, Time, Situation Functional [place] Measure 0=Not Assessed/NA 4=Minimal Assistance 1=Total Assistance 5=Supervision or Setup 2=Maximal Assistance 6=Modified [place] 3=Moderate Assistance 7=Complete [place] ADL-Treatment Functional [place] Measure 0=Not Assessed/NA 4=Minimal Assistance 1=Total Assistance 5=Supervision or Setup 2=Maximal Assistance 6=Modified [place] 3=Moderate Assistance 7=Complete IndependenceIRFPAI Quality Coding Scale 6 Independent with activity with or without an assistive device 5 Patient requires set up or clean up by helper. Patient completes activity by themselves 4 Supervision or touching assist (CGA). [place] provide cues , steadying assist 3 The helper provides less than half the effort to complete the activity 2 The helper provides more than half the effort to complete the activity 1 Dependent. The helper does all the effort to complete an activity 7 Patient refused to complete or attempt activity 9 The patient did not perform the activity before the current illness or injury 88 Not attempted due to Medical conditions or safety concerns Grooming (FIM): 6 (Using sink and 4WW, pt able to complete grooming.) Oral Hygiene (QC): 6 Bathing (FIM): 6 (Using grabbar, hand held shower, long handle sponge and hand held shower pt is able to complete.) Bathing Location: L Arm, R Arm, L Upper Leg, R Upper Leg, L Lower Leg ( including foot), R Lower Leg (including foot), Chest, Abdomen, Buttocks, Perineal Area Shower/Bathe Self (QC): 6 Upper Body (FIM): 6 (Retrieves clothing with 4WW then don/doff clothing by self.) Upper Body Dressing (QC): 6 Lower Body Dressing (FIM): 6 (Retrieves clothing with 4WW then don/doff clothing by self.) Lower Body Dressing (QC): 6 On/Off Footwear (QC): 6 Toileting (FIM): 6 (Using grabbars and 4WW pt is able to complete.) Toileting Hygiene (QC): 6 Toilet/Commode Transfer (FIM): 6 (Using 4WW and grabbar pt is able to complete. ) Toilet Transfer (QC): 6 Shower Transfer(FIM): 6 (Using shower bench, 4WW and grabbar pt is able to complete.) Pt does get SOA and requires recovery breaks during therapy. After therapy, pt sitting in recliner with call light/phone in reach. All needs met in room. O2 on. OT Short Term Goals Short Term Goals Time Frame: Oct 19, 2017 Grooming(FIM): 6 Bathing(FIM): 5 Bathing Location: L Arm, R Arm, L Upper Leg, R Upper Leg, L Lower Leg ( including foot), R Lower Leg (including foot), Chest, Abdomen, Buttocks, Perineal Area Upper Body Dressing(FIM): 6 Lower Body Dressing(FIM): 5 Toileting(FIM): 5 Transfers (B,C,W/C) (FIM): 5 Toilet/Commode Transfer(FIM): 5 Additional Short Term Goals: 3-ImproveStrength/Jaylene 1=Demonstrate adherence to instructed precautions during ADL tasks. 2=Patient will verbalize/demonstrate understanding of assistive devices/ modifications for ADL. 3=Patient will improve strength/tolerance for activity to enable patient to perform ADL's. OT Skilled Nursing Goals Skilled Nursing Goals Time Frame: Oct 26, 2017 Eating (FIM): 7 Eating (QC): 6 Groomin Oral Hygiene (QC): 6 Bathing(FIM): 6 Bathing Location: L Arm, R Arm, L Upper Leg, R Upper Leg, L Lower Leg ( including foot), R Lower Leg (including foot), Chest, Abdomen, Buttocks, Perineal Area Shower/Bathe Self (QC): 6 Upper Body Dressing(FIM): 6 Upper Body Dressing (QC): 6 Lower Body Dressing(FIM): 6 Lower Body Dressing (QC): 6 On/Off Footwear (QC): 6 Toileting(FIM): 6 Toileting Hygiene (QC): 6 Transfers (B,C,W/C) (FIM): 6 Toilet/Commode Transfer(FIM): 6 Toilet/Commode Transfer (QC): 6 Shower Transfer(FIM): 6 Additional Goals: 1-Demonstrate ADL Tasks, 2-Verbalize Understanding, 3- ImproveStrength/Jaylene 1=Demonstrate adherence to instructed precautions during ADL tasks. 2=Patient will verbalize/demonstrate understanding of assistive devices/ modifications for ADL. 3=Patient will improve strength/tolerance for activity to enable patient to perform ADL's. OT Education/Plan Discharge Recommendations Plan/Recommendations: Continue POC Treatment Plan/Plan of Care Patient would benefit from OT for education, treatment and training to promote independence in ADL's, mobility, safety and/or upper extremity function for ADL' s. Plan of Care: ADL Retraining, Functional Mobility, Group Exercise/Act as Ind, UE Funct Exercise/Act Treatment Duration: Oct 26, 2017 Frequency: At least 5 of 7 days/Wk (IRF) Estimated Hrs Per Day: 1.5 hours per day Rehab Potential: Guarded Time/GCodes Start Time: 06:50 Stop Time: 07:50 Total Time Billed (hr/min): 60 Billed Treatment Time 1 visit-ADL 4 (60 min) ERROL KEENE Oct 11, 2017 07:42
[2017-10-11] MEDS: CLOPIDOGREL 75 MG (PLAVIX) TABLET PO SCH (07:50)
[2017-10-11] MEDS: meTOprolol SUCCINATE 100 MG (TOPROL XL) TAB PO SCH (07:50)
[2017-10-11] MEDS: doxAzosin 2 MG (CARDURA) TAB PO SCH ×2 (07:50→21:09)
[2017-10-11] MEDS: CALCIUM CARB + VIT D 600 MG (CALCARB + D) TAB PO SCH ×3 (07:50→21:08)
[2017-10-11] MEDS: OMEGA 3 (FISH OIL) 1000 MG CAP PO SCH ×3 (07:51→21:08)
[2017-10-11] MEDS: GABAPENTIN 100 MG (NEURONTIN) CAP PO SCH ×3 (07:51→21:08)
[2017-10-11] MEDS: Brinzolamide/Brimonidine Tart (Simbrinza) 1%-0.2% Eye Drops OU SCH ×2 (07:52→21:08)
[2017-10-11] MEDS: POLYETHYLENE GLYCOL 17 GM (MIRALAX) PACK PO SCH ×2 (07:52→21:09)
[2017-10-11] MEDS: inSUlin DETERMIR 1 UNIT/0.01 ML (LEVEMIR) CHARGE PER UNIT SQ SCH ×2 (07:53→21:10)
[2017-10-11] MEDS: LACTULOSE SYRUP 10GM/15ML (ENULOSE) 30ML UDC PO SCH ×2 (07:53→21:09)
[2017-10-11] MEDS ORDERED: SOD POLYSTERENE 15 GM/60 ML (KAYEXALATE) UNIT DOSE PO NR (08:00)
--- NOTE | 2017-10-11 09:15 | PM & R (SOAP) Progress Note ---
Subjective This was a face to face visit with the patient. Date Seen by Provider: Oct 11, 2017 Time Seen by Provider: 07:50 Subjective/Events-last exam Patient was seen in her room this AM Patient SBA to Modified Independent for transfers Serum K increasing again Kayexelate ordered.K 6.4 BUN CR noted Serum magnesium increased... .. Objective Physician Exam Last Set of Vital Signs Vital Signs Date Time Temp Pulse Resp B/P (MAP) Pulse Ox O2 Delivery O2 Flow Rate FiO2 10/11/17 08:54 Nasal Cannula 3.00 10/11/17 07:25 97.3 74 18 137/57 (83) 98 Capillary Refill : I&O Intake and Output 10/11/17 00:00 Intake Total 2070 ml Balance 2070 ml Intake Oral 2070 ml # Voids 9 # Bowel Movements 1 General: Alert, Oriented X3, Cooperative, No Acute Distress HEENT: Atraumatic, PERRLA, EOMI, Mucous Memb Moist/[place] Neck: Supple, No JVD Lungs: Clear to Auscultation, Normal Air Movement Heart: Regular Rate, No Murmurs Abdomen: Normal Bowel Sounds, Soft, No Tenderness, No Hepatosplenomegaly, No Masses Extremities: No Edema, No Tenderness/Swelling Neuro: Sensation Intact (Diminished to touch in feet), Other (Strength 4-/5 Both UES and Lower extremities) Psych/Mental Status: Other (Cognition intact) Results Lab Data Laboratory Tests 10/08/17 11:20: Glucometer 197H 10/08/17 16:03: Glucometer 150H 10/08/17 20:22: Glucometer 169H 10/09/17 06:02: Glucometer 163H 10/09/17 06:26: White Blood Count 4.7, Red Blood Count 3.28L, Hemoglobin 9.7L, Hematocrit 31L, Mean Corpuscular Volume 93, Mean Corpuscular Hemoglobin 30, Mean Corpuscular Hemoglobin Concent 32, Red Cell Distribution Width 14.1, Platelet Count 221, Mean Platelet Volume 10.0, Sodium Level 139, Potassium Level 5.7H, Chloride Level 111H, Carbon Dioxide Level 19L, Anion Gap 9, Blood Urea Nitrogen 71H, Creatinine 2.44H, Estimat Glomerular Filtration Rate 20, BUN/Creatinine Ratio 29 , Glucose Level 162H, Calcium Level 9.5 10/09/17 09:30: Potassium Level 5.9H 10/09/17 12:11: Glucometer 134H 10/09/17 16:47: Glucometer 175H 10/09/17 20:21: Glucometer 174H 10/10/17 05:30: Sodium Level 139, Potassium Level 5.4H, Chloride Level 110H, Carbon Dioxide Level 18L, Anion Gap 11, Blood Urea Nitrogen 77H, Creatinine 2.54H, Estimat Glomerular Filtration Rate 19, BUN/Creatinine Ratio 30, Glucose Level 118H, Calcium Level 9.1, Magnesium Level 2.2 10/10/17 05:35: Glucometer 126H 10/10/17 09:00: White Blood Count 5.4, Red Blood Count 3.16L, Hemoglobin 9.1L, Hematocrit 29L, Mean Corpuscular Volume 93, Mean Corpuscular Hemoglobin 29, Mean Corpuscular Hemoglobin Concent 31L, Red Cell Distribution Width 14.2, Platelet Count 219, Mean Platelet Volume 9.8 10/10/17 11:10: Glucometer 133H 10/10/17 15:58: Glucometer 142H 10/10/17 20:08: Glucometer 110 10/11/17 04:27: Glucometer 125H 10/11/17 05:25: Sodium Level 137, Potassium Level 6.4H, Chloride Level 111H, Carbon Dioxide Level 15L, Anion Gap 11, Blood Urea Nitrogen 78H, Creatinine 2.51H, Estimat Glomerular Filtration Rate 19, BUN/Creatinine Ratio 31, Glucose Level 117H, Calcium Level 8.6, Magnesium Level 2.7H Assessment/Plan Assessment and Plan Left CVA with RT HP HTn controlled CKD stage 4 DR Byrd follwing labs Hyperkalemia due to above Kayexelate ordered Hypoventilation syndrome on 02 IDDM Diabetic peripheral neuropathy HX of multiple tias Hx of dvt rt leg s/p IVC filter placement Iron def anemia Renal osteodystrophy s/p Nephrostomy tube in past CAD Plan Continue Pt/OT F/U with DR Byrd re Hyperkalemia and CKD stage 4. (1) CVA (cerebral vascular accident) Status: Acute (2) Cerebrovascular disease or lesion Status: Chronic Co-Morbidities that are continuing to impact the rehab process: (include details ) NAPOLEON IVAN MD Oct 11, 2017 09:15
--- NOTE | 2017-10-11 09:58 | Physical Therapy Daily Note ---
PT Daily Note-Current Subjective Patient in recliner pre tx, agrees to PT, no complaints of pain. Patient states she slept in the recliner last night. Appearance Patient in recliner post tx with nurse call, phone, tray, O2 on, all needs met. Mental Status Patient Orientation: Normal For Age Attachments: Oxygen Transfers Functional [place] Measure 0=Not Assessed/NA 4=Minimal Assistance 1=Total Assistance 5=Supervision or Setup 2=Maximal Assistance 6=Modified [place] 3=Moderate Assistance 7=Complete IndependenceIRFPAI Quality Coding Scale 6 Independent with activity with or without an assistive device 5 Patient requires set up or clean up by helper. Patient completes activity by themselves 4 Supervision or touching assist (CGA). [place] provide cues , steadying assist 3 The helper provides less than half the effort to complete the activity 2 The helper provides more than half the effort to complete the activity 1 Dependent. The helper does all the effort to complete an activity 7 Patient refused to complete or attempt activity 9 The patient did not perform the activity before the current illness or injury 88 Not attempted due to Medical conditions or safety concerns Transfers (B, C, W/C) (FIM): 5 Sit to/from Stand: 5 Bed to/from Chair: 5 cues for safety and hand placement, patient will often stand or sit without using hands or with using both hands on her 4 wheeled walker Weight Bearing Right Lower Extremity: Right Full Weight Bearing Left Lower Extremity: Left Full Weight Bearing Gait Training Gait (FIM): 5 Distance: 200', 100' Gait Level of Assist: 5 Gait Persons Needed: 1 Gait Assistive Device: FWW slow but steady ambulation Stair Training Stair Training: Handrails/: 2 handrails Stairs (FIM): 2 #of Steps: 4 Stairs: Pattern: Step to Level of Assist: 4 CGA Exercises Seated Therapy Exercises: Ankle pumps, Long arc quads, Hip flexion Seated Reps: 20 Standing: Hip Abduction, Hamstring curls, Heel/toe raises, Marching, Mini squats Standing Reps: 10 NuStep Minutes: 15 NuStep Workload: 4 Treatments transfers, ambulation, functional strengthening, stair training Assessment Current Status: Poor Progress patient seems to have maintained her current level of mobility, she may have plateaued PT Short Term Goals Short Term Goals Transfers (B,C,W/C) (FIM): 5 PT Usp Goals Usp Goals PT Usp Goals Time Frame: Oct 13, 2017 Transfers (B,C,W/C) (FIM): 6 Sit to Lying (QC): 6 Lying-Sitting on Side/Bed(QC): 6 Sit to Stand (QC): 6 Rollin Roll Left to Right (QC): 6 Chair/Sjp-iw-Xblew Xfer(QC): 6 Car Transfer (QC): 6 Does the Patient Walk: Yes Gait (FIM): 6 Gait distance (FIM): 3=150 ft (with negotiating O2 tubing in and around room) Distance: 150' Walk 10 feet (QC): 6 Walk 10ft-Uneven Surface(QC): 6 Walk 50ft with 2 Turns (QC): 6 Walk 150 ft (QC): 6 Gait Level of Assist: 6 Gait Assistive Device: Walker 4 Wheeled Stairs (FIM): 1 # of Steps: 1 1 Step (curb) (QC): 6 4 Steps (QC): 9 12 Steps (QC): 9 Stairs Level Of Assist: 6 Picking up an Object (QC): 5 PT Plan Problem List Problem List: Activity Tolerance, Functional Strength, Safety, Balance, Gait, Transfer, Bed Mobility, ROM Treatment/Plan Treatment Plan: Continue Plan of Care Treatment Plan: Bed Mobility, Education, Functional Activity Jaylene, Functional Strength, Group Therapy, Gait, Safety, Therapeutic Exercise, Transfers Treatment Duration: Oct 13, 2017 Frequency: At least 5 of 7 days/Wk (IRF) Estimated Hrs Per Day: 1.5 hours per day Patient and/or Family Agrees t: Yes Safety Risks/Education Patient Education: Gait Training, Transfer Techniques, Steps, Correct Positioning, Safety Issues Teaching Recipient: Patient Teaching Methods: Demonstration, Discussion Response to Teaching: Reinforcement Needed Time/GCodes Time In: 0900 Time Out: 1000 Total Billed Treatment Time: 60 Total Billed Treatment 1 visit EX 30' GT 30' JAQUI ELISE PT Oct 11, 2017 09:58
[2017-10-11 11:26] VITALS: BP 135/65
--- NOTE | 2017-10-11 14:53 | Therapy Group Daily Note ---
Therapy Daily Group Note Patient Education Topic Other List Below (memory, ARU description) Exercises LE Seated Exercise, UE Exercise Other/Notes Pt ambulated with 4WW to OT/PT group in therapy gym. Group consisted of introductions (name, place living, riddle), socialization, ARU description/ expectations, memory activity, memory strategies and visual perceptual activity. Pt introduced self appropriately then actively listening to peers. Pt verbalized understanding of ARU expectations. Pt contributed to discussions and conversations with peers. Pt was able to complete memory activity without difficulty. Pt gave examples of personal ways used for memory strategies. Pt ambulated back to room and requested to use bathroom. Pt was given call light. All needs met. Start Time: 13:00 Stop Time: 14:20 Total Billed Treatment Time: 80 Total Billed Treatment 1-GRP ERROL KEENE Oct 11, 2017 14:53
[2017-10-11 18:14] VITALS: BP 131/62
[2017-10-11] MEDS: MULTIVIT W/MINERALS TAB (THERAGRAN M) PO SCH (21:08)
[2017-10-11] MEDS: ROSUVASTATIN 20 MG (CRESTOR) TABLET PO SCH (21:09)
[2017-10-11] MEDS: ASPIRIN E.C. 81 MG (ECOTRIN) TAB PO SCH (21:09)
[2017-10-11] MEDS: VITAMIN D3 5,000 UNITS (CHOLECALCIFEROL ) CAPSULE PO SCH (21:09)
[2017-10-12 02:17] VITALS: BP 141/77
[2017-10-12] MEDS: hydrALAZINE (APRESOLINE) 25 MG TAB PO SCH ×3 (02:18→18:53)
[2017-10-12] MEDS: inSUlin ASPART (NovoLOG) 1 UNIT/0.01 ML (CHARGE PER UNIT) SC SCH ×7 (06:31→21:43)
[2017-10-12 06:46] LABS: CALCIUM 8.5 MG/DL (8.5-10.1); CREATININE SERUM 2.49 MG/DL (0.60-1.30); POTASSIUM 4.7 MMOL/L (3.6-5.0)
--- NOTE | 2017-10-12 07:58 | Occupational Ther Daily Note ---
OT Current Status-Daily Note Subjective Pt alert, sitting in recliner. Pt stated that she slept better last night than she had during hospital stay. Agrees to therapy. Pt c/o tightness in R groin area, reported to nrsg. Pt appears to have increased swelling in LE's. Mental Status/Objective Patient Orientation: Person, Place, Time, Situation Functional [place] Measure 0=Not Assessed/NA 4=Minimal Assistance 1=Total Assistance 5=Supervision or Setup 2=Maximal Assistance 6=Modified [place] 3=Moderate Assistance 7=Complete [place] Attachments: Oxygen, Other-See Comments (PORT) ADL-Treatment Pt ambulated to bathroom with 4WW. Slight LOB due to O2 tubing, pt caught self. Pt appears more unsteady this morning, pt states because she is still sleepy. Pt able to complete toileting transfer and toileting with SBA due to unsteadiness this morning. Sponge bathe sitting in bathroom. Pt dressed upper/ lower body sitting in bathroom with SBA in standing to hike over hips. Stood at sink to complete grooming with SBA. Functional [place] Measure 0=Not Assessed/NA 4=Minimal Assistance 1=Total Assistance 5=Supervision or Setup 2=Maximal Assistance 6=Modified [place] 3=Moderate Assistance 7=Complete IndependenceIRFPAI Quality Coding Scale 6 Independent with activity with or without an assistive device 5 Patient requires set up or clean up by helper. Patient completes activity by themselves 4 Supervision or touching assist (CGA). [place] provide cues , steadying assist 3 The helper provides less than half the effort to complete the activity 2 The helper provides more than half the effort to complete the activity 1 Dependent. The helper does all the effort to complete an activity 7 Patient refused to complete or attempt activity 9 The patient did not perform the activity before the current illness or injury 88 Not attempted due to Medical conditions or safety concerns Grooming (FIM): 5 Oral Hygiene (QC): 4 Upper Body (FIM): 6 Upper Body Dressing (QC): 6 Lower Body Dressing (FIM): 5 Lower Body Dressing (QC): 4 On/Off Footwear (QC): 6 Toileting (FIM): 5 Toileting Hygiene (QC): 4 Toilet/Commode Transfer (FIM): 5 Toilet Transfer (QC): 4 Other Treatment Ambulated to therapy gym using 4WW. Pt then complete UE dowel davina exercises against gravity without wt. Pt tolerated well and required recovery breaks after each set, 5 exercises-3 sets, 10 reps. Pt had difficulty keeping track of reps throughout session. Resistive clothes pins complete with each hand to increase dental laboratory technology teacher/pinch strength for functional fine motor tasks. After therapy, pt sitting in recliner with call light/phone in reach. All needs met in room. OT Short Term Goals Short Term Goals Time Frame: Oct 19, 2017 Grooming(FIM): 6 Bathing(FIM): 5 Bathing Location: L Arm, R Arm, L Upper Leg, R Upper Leg, L Lower Leg ( including foot), R Lower Leg (including foot), Chest, Abdomen, Buttocks, Perineal Area Upper Body Dressing(FIM): 6 Lower Body Dressing(FIM): 5 Toileting(FIM): 5 Transfers (B,C,W/C) (FIM): 5 Toilet/Commode Transfer(FIM): 5 Additional Short Term Goals: 3-ImproveStrength/Jaylene 1=Demonstrate adherence to instructed precautions during ADL tasks. 2=Patient will verbalize/demonstrate understanding of assistive devices/ modifications for ADL. 3=Patient will improve strength/tolerance for activity to enable patient to perform ADL's. OT Mcc Goals Mcc Goals Time Frame: Oct 26, 2017 Eating (FIM): 7 Eating (QC): 6 Groomin Oral Hygiene (QC): 6 Bathing(FIM): 6 Bathing Location: L Arm, R Arm, L Upper Leg, R Upper Leg, L Lower Leg ( including foot), R Lower Leg (including foot), Chest, Abdomen, Buttocks, Perineal Area Shower/Bathe Self (QC): 6 Upper Body Dressing(FIM): 6 Upper Body Dressing (QC): 6 Lower Body Dressing(FIM): 6 Lower Body Dressing (QC): 6 On/Off Footwear (QC): 6 Toileting(FIM): 6 Toileting Hygiene (QC): 6 Transfers (B,C,W/C) (FIM): 6 Toilet/Commode Transfer(FIM): 6 Toilet/Commode Transfer (QC): 6 Shower Transfer(FIM): 6 Additional Goals: 1-Demonstrate ADL Tasks, 2-Verbalize Understanding, 3- ImproveStrength/Jaylene 1=Demonstrate adherence to instructed precautions during ADL tasks. 2=Patient will verbalize/demonstrate understanding of assistive devices/ modifications for ADL. 3=Patient will improve strength/tolerance for activity to enable patient to perform ADL's. OT Education/Plan Discharge Recommendations Plan/Recommendations: Continue POC Treatment Plan/Plan of Care Patient would benefit from OT for education, treatment and training to promote independence in ADL's, mobility, safety and/or upper extremity function for ADL' s. Plan of Care: ADL Retraining, Functional Mobility, Group Exercise/Act as Ind, UE Funct Exercise/Act Treatment Duration: Oct 26, 2017 Frequency: At least 5 of 7 days/Wk (IRF) Estimated Hrs Per Day: 1.5 hours per day Rehab Potential: Guarded Time/GCodes Start Time: 06:50 Stop Time: 07:50 Total Time Billed (hr/min): 60 Billed Treatment Time 1 visit-ADL 2 (30 min) EX 2 (30 min) ERROL KEENE Oct 12, 2017 07:58
[2017-10-12] MEDS: meTOprolol SUCCINATE 100 MG (TOPROL XL) TAB PO SCH (08:51)
[2017-10-12] MEDS: CLOPIDOGREL 75 MG (PLAVIX) TABLET PO SCH (08:51)
[2017-10-12] MEDS: CALCIUM CARB + VIT D 600 MG (CALCARB + D) TAB PO SCH ×3 (08:51→21:41)
[2017-10-12] MEDS: doxAzosin 2 MG (CARDURA) TAB PO SCH ×2 (08:51→21:41)
[2017-10-12] MEDS: OMEGA 3 (FISH OIL) 1000 MG CAP PO SCH ×3 (08:51→21:41)
[2017-10-12] MEDS: GABAPENTIN 100 MG (NEURONTIN) CAP PO SCH ×3 (08:51→21:41)
[2017-10-12] MEDS: POLYETHYLENE GLYCOL 17 GM (MIRALAX) PACK PO SCH ×2 (08:52→21:43)
[2017-10-12] MEDS: LACTULOSE SYRUP 10GM/15ML (ENULOSE) 30ML UDC PO SCH ×2 (08:52→21:43)
[2017-10-12] MEDS: inSUlin DETERMIR 1 UNIT/0.01 ML (LEVEMIR) CHARGE PER UNIT SQ SCH ×2 (08:53→21:42)
[2017-10-12] MEDS: Brinzolamide/Brimonidine Tart (Simbrinza) 1%-0.2% Eye Drops OU SCH ×2 (08:59→21:42)
--- NOTE | 2017-10-12 08:59 | Physical Therapy Daily Note ---
PT Daily Note-Current Subjective Patient in recliner pre tx, agrees to PT, no complaints of pain. Patient states she feels a little unsteady. Appearance Patient in recliner post tx with nurse call, phone, tray, all needs met, nurse in the room to pass meds. Mental Status Patient Orientation: Normal For Age Attachments: Oxygen Transfers Functional [place] Measure 0=Not Assessed/NA 4=Minimal Assistance 1=Total Assistance 5=Supervision or Setup 2=Maximal Assistance 6=Modified [place] 3=Moderate Assistance 7=Complete IndependenceIRFPAI Quality Coding Scale 6 Independent with activity with or without an assistive device 5 Patient requires set up or clean up by helper. Patient completes activity by themselves 4 Supervision or touching assist (CGA). [place] provide cues , steadying assist 3 The helper provides less than half the effort to complete the activity 2 The helper provides more than half the effort to complete the activity 1 Dependent. The helper does all the effort to complete an activity 7 Patient refused to complete or attempt activity 9 The patient did not perform the activity before the current illness or injury 88 Not attempted due to Medical conditions or safety concerns Transfers (B, C, W/C) (FIM): 5 Sit to/from Stand: 5 Bed to/from Chair: 5 Much better safety and hand placement. Weight Bearing Right Lower Extremity: Right Full Weight Bearing Left Lower Extremity: Left Full Weight Bearing Gait Training Gait (FIM): 5 Distance: 200'x2 Gait Level of Assist: 5 Gait Persons Needed: 1 Gait Assistive Device: FWW Patient ambulates slowly, slightly unsteady but no LOB. Exercises Standing: Hip Abduction, Hamstring curls, Heel/toe raises, Marching, Mini squats Standing Reps: 15 LAQ alternating for 5 min, sidestepping in parallel bars 8'x6 NuStep Minutes: 15 NuStep Workload: 4 Treatments transfers, ambulation, functional strengthening Assessment Current Status: Poor Progress No change in mobility. Patient has very weak gastocs and cannot perform a full heel raise. PT Short Term Goals Short Term Goals Transfers (B,C,W/C) (FIM): 5 PT Senior Care Goals Senior Care Goals PT Senior Care Goals Time Frame: Oct 13, 2017 Transfers (B,C,W/C) (FIM): 6 Sit to Lying (QC): 6 Lying-Sitting on Side/Bed(QC): 6 Sit to Stand (QC): 6 Rollin Roll Left to Right (QC): 6 Chair/Iui-wc-Kwuqq Xfer(QC): 6 Car Transfer (QC): 6 Does the Patient Walk: Yes Gait (FIM): 6 Gait distance (FIM): 3=150 ft (with negotiating O2 tubing in and around room) Distance: 150' Walk 10 feet (QC): 6 Walk 10ft-Uneven Surface(QC): 6 Walk 50ft with 2 Turns (QC): 6 Walk 150 ft (QC): 6 Gait Level of Assist: 6 Gait Assistive Device: Walker 4 Wheeled Stairs (FIM): 1 # of Steps: 1 1 Step (curb) (QC): 6 4 Steps (QC): 9 12 Steps (QC): 9 Stairs Level Of Assist: 6 Picking up an Object (QC): 5 PT Plan Problem List Problem List: Activity Tolerance, Functional Strength, Safety, Balance, Gait, Transfer, Bed Mobility, ROM Treatment/Plan Treatment Plan: Continue Plan of Care Treatment Plan: Bed Mobility, Education, Functional Activity Jaylene, Functional Strength, Group Therapy, Gait, Safety, Therapeutic Exercise, Transfers Treatment Duration: Oct 13, 2017 Frequency: At least 5 of 7 days/Wk (IRF) Estimated Hrs Per Day: 1.5 hours per day Patient and/or Family Agrees t: Yes Safety Risks/Education Patient Education: Gait Training, Transfer Techniques, Correct Positioning, Safety Issues Teaching Recipient: Patient Teaching Methods: Demonstration, Discussion Response to Teaching: Reinforcement Needed Time/GCodes Time In: 0800 Time Out: 0900 Total Billed Treatment Time: 60 Total Billed Treatment 1 visit EX 35' GT 25' JAQUI ELISE PT Oct 12, 2017 08:59
--- NOTE | 2017-10-12 09:16 | PM & R (SOAP) Progress Note ---
Subjective This was a face to face visit with the patient. Date Seen by Provider: Oct 12, 2017 Time Seen by Provider: 07:55 Subjective/Events-last exam Patient was seen in her room this AM Patient SBA for transfers Patients Serum K and magnesium have normalized BUN/CR noted Flank pain improved Objective Physician Exam Last Set of Vital Signs Vital Signs Date Time Temp Pulse Resp B/P (MAP) Pulse Ox O2 Delivery O2 Flow Rate FiO2 10/12/17 02:17 97.0 73 18 141/77 (98) 98 NIV CPAP 3.00 Capillary Refill : I&O Intake and Output 10/12/17 00:00 Intake Total 6800 ml Balance 6800 ml Intake Oral 6800 ml # Voids 7 # Bowel Movements 2 General: Alert, Oriented X3, Cooperative, No Acute Distress HEENT: Atraumatic, PERRLA, EOMI, Mucous Memb Moist/[place] Neck: Supple, No JVD Lungs: Clear to Auscultation, Normal Air Movement Heart: Regular Rate, No Murmurs Abdomen: Normal Bowel Sounds, Soft, No Tenderness, No Hepatosplenomegaly, No Masses Extremities: No Edema, No Tenderness/Swelling Neuro: Sensation Intact (Diminished to touch in feet), Other (Strength 4-/5 Both UES and Lower extremities) Psych/Mental Status: Other (Cognition intact) Results Lab Data Laboratory Tests 10/09/17 09:30: Potassium Level 5.9H 10/09/17 12:11: Glucometer 134H 10/09/17 16:47: Glucometer 175H 10/09/17 20:21: Glucometer 174H 10/10/17 05:30: Sodium Level 139, Potassium Level 5.4H, Chloride Level 110H, Carbon Dioxide Level 18L, Anion Gap 11, Blood Urea Nitrogen 77H, Creatinine 2.54H, Estimat Glomerular Filtration Rate 19, BUN/Creatinine Ratio 30, Glucose Level 118H, Calcium Level 9.1, Magnesium Level 2.2 10/10/17 05:35: Glucometer 126H 10/10/17 09:00: White Blood Count 5.4, Red Blood Count 3.16L, Hemoglobin 9.1L, Hematocrit 29L, Mean Corpuscular Volume 93, Mean Corpuscular Hemoglobin 29, Mean Corpuscular Hemoglobin Concent 31L, Red Cell Distribution Width 14.2, Platelet Count 219, Mean Platelet Volume 9.8 10/10/17 11:10: Glucometer 133H 10/10/17 15:58: Glucometer 142H 10/10/17 20:08: Glucometer 110 10/11/17 04:27: Glucometer 125H 10/11/17 05:25: Sodium Level 137, Potassium Level 6.4H, Chloride Level 111H, Carbon Dioxide Level 15L, Anion Gap 11, Blood Urea Nitrogen 78H, Creatinine 2.51H, Estimat Glomerular Filtration Rate 19, BUN/Creatinine Ratio 31, Glucose Level 117H, Calcium Level 8.6, Magnesium Level 2.7H 10/11/17 09:38: Glucometer 129H 10/11/17 11:11: Glucometer 133H 10/11/17 15:05: Potassium Level 5.6H 10/11/17 16:38: Glucometer 153H 10/11/17 19:26: Glucometer 174H 10/12/17 04:22: Glucometer 156H 10/12/17 05:51: Sodium Level 139, Potassium Level 4.7, Chloride Level 110H, Carbon Dioxide Level 17L, Anion Gap 12, Blood Urea Nitrogen 84H, Creatinine 2.49H, Estimat Glomerular Filtration Rate 19, BUN/Creatinine Ratio 34, Glucose Level 136H, Calcium Level 8.5, Magnesium Level 2.0 Assessment/Plan Assessment and Plan Left CVA with RT HP HTN controlled CKD stage 4 Hyperkalemia reolved with Kayexelate Mypomagnesemia resolved Hypoventilation syndrome on 02 IDDM Diabetic peripheral neuropathy HX of multiple TIAS Hx of DVT rt leg s/p IVC filter placement Iron def anemia Renal osteodystrophy s/p Neprostomy tube in past CAD Plan Continue Pt/OT Discharge set for Monday10/15/17 (1) CVA (cerebral vascular accident) Status: Acute (2) Cerebrovascular disease or lesion Status: Chronic Co-Morbidities that are continuing to impact the rehab process: (include details ) NAPOLEON IVAN MD Oct 12, 2017 09:16
--- NOTE | 2017-10-12 11:05 | Occupational Ther Daily Note ---
OT Current Status-Daily Note Subjective Pt sitting in recliner. Pt agrees to therapy. Pt c/o tightness in R groin, reported to nrsg. Mental Status/Objective Patient Orientation: Person, Place, Time, Situation Functional [place] Measure 0=Not Assessed/NA 4=Minimal Assistance 1=Total Assistance 5=Supervision or Setup 2=Maximal Assistance 6=Modified [place] 3=Moderate Assistance 7=Complete [place] ADL-Treatment Functional [place] Measure 0=Not Assessed/NA 4=Minimal Assistance 1=Total Assistance 5=Supervision or Setup 2=Maximal Assistance 6=Modified [place] 3=Moderate Assistance 7=Complete IndependenceIRFPAI Quality Coding Scale 6 Independent with activity with or without an assistive device 5 Patient requires set up or clean up by helper. Patient completes activity by themselves 4 Supervision or touching assist (CGA). [place] provide cues , steadying assist 3 The helper provides less than half the effort to complete the activity 2 The helper provides more than half the effort to complete the activity 1 Dependent. The helper does all the effort to complete an activity 7 Patient refused to complete or attempt activity 9 The patient did not perform the activity before the current illness or injury 88 Not attempted due to Medical conditions or safety concerns Other Treatment Pt completed dynamic standing activity at table in [facility] area. Pt was able to stand while completing UE fine motor and gross motor strengthening against gravity. Pt stood between 8-10 minutes prior to sitting down. Reaching , grasping and wt shift throughout session. Pt was SOA at end of each stand, recovery break decreasing from initial sessions in ARU. After therapy, pt sitting in recliner with feet elevated due to increased edema. Call light/ phone in reach. All needs met in room. OT Short Term Goals Short Term Goals Time Frame: Oct 19, 2017 Grooming(FIM): 6 Bathing(FIM): 5 Bathing Location: L Arm, R Arm, L Upper Leg, R Upper Leg, L Lower Leg ( including foot), R Lower Leg (including foot), Chest, Abdomen, Buttocks, Perineal Area Upper Body Dressing(FIM): 6 Lower Body Dressing(FIM): 5 Toileting(FIM): 5 Transfers (B,C,W/C) (FIM): 5 Toilet/Commode Transfer(FIM): 5 Additional Short Term Goals: 3-ImproveStrength/Jaylene 1=Demonstrate adherence to instructed precautions during ADL tasks. 2=Patient will verbalize/demonstrate understanding of assistive devices/ modifications for ADL. 3=Patient will improve strength/tolerance for activity to enable patient to perform ADL's. OT Shelter Goals Shelter Goals Time Frame: Oct 26, 2017 Eating (FIM): 7 Eating (QC): 6 Groomin Oral Hygiene (QC): 6 Bathing(FIM): 6 Bathing Location: L Arm, R Arm, L Upper Leg, R Upper Leg, L Lower Leg ( including foot), R Lower Leg (including foot), Chest, Abdomen, Buttocks, Perineal Area Shower/Bathe Self (QC): 6 Upper Body Dressing(FIM): 6 Upper Body Dressing (QC): 6 Lower Body Dressing(FIM): 6 Lower Body Dressing (QC): 6 On/Off Footwear (QC): 6 Toileting(FIM): 6 Toileting Hygiene (QC): 6 Transfers (B,C,W/C) (FIM): 6 Toilet/Commode Transfer(FIM): 6 Toilet/Commode Transfer (QC): 6 Shower Transfer(FIM): 6 Additional Goals: 1-Demonstrate ADL Tasks, 2-Verbalize Understanding, 3- ImproveStrength/Jaylene 1=Demonstrate adherence to instructed precautions during ADL tasks. 2=Patient will verbalize/demonstrate understanding of assistive devices/ modifications for ADL. 3=Patient will improve strength/tolerance for activity to enable patient to perform ADL's. OT Education/Plan Discharge Recommendations Plan/Recommendations: Continue POC Treatment Plan/Plan of Care Patient would benefit from OT for education, treatment and training to promote independence in ADL's, mobility, safety and/or upper extremity function for ADL' s. Plan of Care: ADL Retraining, Functional Mobility, Group Exercise/Act as Ind, UE Funct Exercise/Act Treatment Duration: Oct 26, 2017 Frequency: At least 5 of 7 days/Wk (IRF) Estimated Hrs Per Day: 1.5 hours per day Rehab Potential: Guarded Time/GCodes Start Time: 10:00 Stop Time: 10:30 Total Time Billed (hr/min): 30 Billed Treatment Time 1 visit-EX 2 (30 min) ERROL KEENE Oct 12, 2017 11:05
--- NOTE | 2017-10-12 14:46 | Physical Therapy Daily Note ---
PT Daily Note-Current Subjective Agreeable to PT. Reports she is going home on Monday. Reports she feels ready. Transfers Functional [place] Measure 0=Not Assessed/NA 4=Minimal Assistance 1=Total Assistance 5=Supervision or Setup 2=Maximal Assistance 6=Modified [place] 3=Moderate Assistance 7=Complete IndependenceIRFPAI Quality Coding Scale 6 Independent with activity with or without an assistive device 5 Patient requires set up or clean up by helper. Patient completes activity by themselves 4 Supervision or touching assist (CGA). [place] provide cues , steadying assist 3 The helper provides less than half the effort to complete the activity 2 The helper provides more than half the effort to complete the activity 1 Dependent. The helper does all the effort to complete an activity 7 Patient refused to complete or attempt activity 9 The patient did not perform the activity before the current illness or injury 88 Not attempted due to Medical conditions or safety concerns Weight Bearing Right Lower Extremity: Right Full Weight Bearing Left Lower Extremity: Left Full Weight Bearing Treatments Pt toileted, walked 20 ft with 4WW to bathroom and toileted with SBA for all gait and transfers and to stand at the sink to wash her hands. Pt then walked 5 bouts of 75 ft each with 4WW with SBA. Pt required a rest break between each walking episode. Pt up in chair with feet elevated post treatment. Oxygen in situ during and post treatment. Assessment Current Status: Good Progress Safe and steady with gait and transfers. Limited functional activity tolerance. PT Short Term Goals Short Term Goals Transfers (B,C,W/C) (FIM): 5 (met) PT Shelter Goals Shelter Goals PT Balance Wheel Facer Goals Time Frame: Oct 13, 2017 Transfers (B,C,W/C) (FIM): 6 Sit to Lying (QC): 6 Lying-Sitting on Side/Bed(QC): 6 Sit to Stand (QC): 6 Rollin Roll Left to Right (QC): 6 Chair/[id number]-zu-Yxegb Xfer(QC): 6 Car Transfer (QC): 6 Does the Patient Walk: Yes Gait (FIM): 6 Gait distance (FIM): 3=150 ft (with negotiating O2 tubing in and around room) Distance: 150' Walk 10 feet (QC): 6 Walk 10ft-Uneven Surface(QC): 6 Walk 50ft with 2 Turns (QC): 6 Walk 150 ft (QC): 6 Gait Level of Assist: 6 Gait Assistive Device: Walker 4 Wheeled Stairs (FIM): 1 # of Steps: 1 1 Step (curb) (QC): 6 4 Steps (QC): 9 12 Steps (QC): 9 Stairs Level Of Assist: 6 Picking up an Object (QC): 5 PT Plan Problem List Problem List: Activity Tolerance, Functional Strength, Safety Treatment/Plan Treatment Plan: Continue Plan of Care Treatment Plan: Bed Mobility, Education, Functional Activity Jaylene, Functional Strength, Group Therapy, Gait, Safety, Therapeutic Exercise, Transfers Treatment Duration: Oct 13, 2017 Frequency: At least 5 of 7 days/Wk (IRF) Estimated Hrs Per Day: 1.5 hours per day Patient and/or Family Agrees t: Yes Safety Risks/Education Patient Education: Gait Training Teaching Recipient: Patient Teaching Methods: Discussion Response to Teaching: Return Demonstration Time/GCodes Time In: 1410 Time Out: 1442 Total Billed Treatment Time: 32 Total Billed Treatment visit GT 32 ERROL BARBER PT Oct 12, 2017 14:46
--- NOTE | 2017-10-12 15:53 | D/C HH Face to Face Order ---
D/C Face to Face Orders Instructions for Patient Patient Instructions/FollowUp: Dr. Iris Fernandez Physician to follow Patient: Dr. Palomo Discharge Diet for Home: other diet (CHO 60) Patient Data-Allergies,Ht & Wt Patient Allergies: Coded Allergies: Bacitracin Zinc (Unverified Allergy, Unknown, 07/11/17) Penicillins (Unverified Allergy, Unknown, HAS RECEIVED ROCEPHIN DURING PREVIOUS ADMIT, 07/11/17) bacitracin (Unverified Allergy, Unknown, 07/11/17) colistimethate sodium (Unverified Allergy, Unknown, 07/11/17) gramicidin D (Unverified Allergy, Unknown, 07/11/17) neomycin sulfate (Unverified Allergy, Unknown, 07/11/17) polymyxin B (Unverified Allergy, Unknown, 07/11/17) polymyxin B sulfate (Unverified Allergy, Unknown, 07/11/17) pramoxine HCl (Unverified Allergy, Unknown, 07/11/17) Height (Feet): 5 Height (Inches): 4.00 Weight (Pounds): 317 Weight (Ounces): 0.0 Home Health Need/Face to Face Date of Face to Face: Oct 15, 2017 Clinical Findings: Generalized weakness and fatigue, Muscle weakness, Unsteady gait I have seen Pt [id number]: Yes Discharged To: Home Diagnosis/Conditions: CVA Patient is Homebound due to: Tati fall risk due to instabilty, Muscle weakness , Shortness of breath/distress Homebound Status Due to the above stated illness, injury or surgical procedure (medical condition or diagnosis) and associated clinical findings, the patient is homebound because of his/her inability to leave home except with aid of a supportive device and/or person AND leaving the home requires a considerable and taxing effort or is medically contraindicated. Pt req the following assistanc: Walker Home Health Nursing Orders Home Health Services Order: Ostomy Care Nurse-Evaluate & Treat, Physical Therapy-Evaluate & Treat Home Health Infusion Therapy Line Start Date: Oct 12, 2017 Line Start Time: 1200 Line Type: [facility] Site Location: Chest Therapy Orders Therapy Orders: OT (must have SN or PT order), Physical Therapy Therapy Specific Orders: Eval assistive deivces, Teach enviro modifications/ safety, Gait training, Increase strength/endurance Certify Stmt I certify that this patient is under my care and that I, a nurse practitioner or a physician; a sourcing assistant working with me, had a face to face encounter that - meets the physician face to face encounter requirements with this patient as dated. I personally scribed for NAPOLEON IVAN MD ([email or web address]) on 10/12/17 at 15:51. Electronically submitted by Shirley Eng ([id number]). I personally scribed for NAPOLEON IVAN MD ([email or web address]) on 10/12/17 at 15:53. Electronically submitted by Shirley Eng ([id number]). NAPOLEON IVAN MD Oct 12, 2017 15:51
[2017-10-12 18:40] VITALS: BP 138/73
[2017-10-12] MEDS: ASPIRIN E.C. 81 MG (ECOTRIN) TAB PO SCH (21:41)
[2017-10-12] MEDS: MULTIVIT W/MINERALS TAB (THERAGRAN M) PO SCH (21:41)
[2017-10-12] MEDS: VITAMIN D3 5,000 UNITS (CHOLECALCIFEROL ) CAPSULE PO SCH (21:41)
[2017-10-12] MEDS: ROSUVASTATIN 20 MG (CRESTOR) TABLET PO SCH (21:42)
[2017-10-13] MEDS: hydrALAZINE (APRESOLINE) 25 MG TAB PO SCH ×3 (02:40→19:17)
[2017-10-13 03:00] VITALS: BP 112/61
[2017-10-13] MEDS: HYDROcodone/APAP 5 MG/325 MG (LORTAB) TAB PO PRN ×3 (03:06→20:23)
[2017-10-13] MEDS: inSUlin ASPART (NovoLOG) 1 UNIT/0.01 ML (CHARGE PER UNIT) SC SCH ×7 (05:10→20:25)
--- NOTE | 2017-10-13 07:55 | Occupational Ther Daily Note ---
OT Current Status-Daily Note Subjective Pt alert, sitting in recliner. Pt agrees to therapy. Pt stated that earlier am her R/L LE's were hurting and she needed to take pain meds. Pt stated that L LE pain had gone but R groin area still felt tight. Pt reported to nrsg and physician. Edema pronounced has not decreased. Mental Status/Objective Patient Orientation: Person, Place, Time, Situation Functional [place] Measure 0=Not Assessed/NA 4=Minimal Assistance 1=Total Assistance 5=Supervision or Setup 2=Maximal Assistance 6=Modified [place] 3=Moderate Assistance 7=Complete [place] ADL-Treatment Functional [place] Measure 0=Not Assessed/NA 4=Minimal Assistance 1=Total Assistance 5=Supervision or Setup 2=Maximal Assistance 6=Modified [place] 3=Moderate Assistance 7=Complete IndependenceIRFPAI Quality Coding Scale 6 Independent with activity with or without an assistive device 5 Patient requires set up or clean up by helper. Patient completes activity by themselves 4 Supervision or touching assist (CGA). [place] provide cues , steadying assist 3 The helper provides less than half the effort to complete the activity 2 The helper provides more than half the effort to complete the activity 1 Dependent. The helper does all the effort to complete an activity 7 Patient refused to complete or attempt activity 9 The patient did not perform the activity before the current illness or injury 88 Not attempted due to Medical conditions or safety concerns Eating (FIM): 7 (Pt set self up and uses regular utensils.) Eating (QC): 6 Grooming (FIM): 6 (Standing at sink with 4WW is able to complete by self.) Oral Hygiene (QC): 6 Bathing (FIM): 6 (Using grabbar, shower bench, long handle sponge and hand held shower. Pt does get SOA and takes recovery breaks and moves slowly.) Bathing Location: L Arm, R Arm, L Upper Leg, R Upper Leg, L Lower Leg ( including foot), R Lower Leg (including foot), Chest, Abdomen, Buttocks, Perineal Area Shower/Bathe Self (QC): 6 Upper Body (FIM): 6 (Retrieves with 4WW then completes own dressing. ) Upper Body Dressing (QC): 6 Lower Body Dressing (FIM): 5 (Pt retrieves clothing with 4WW. Supervision due to pt's pain and tightness with LE's when hiking pants over hips. Uses AE to don/doff lower body clothing.) Lower Body Dressing (QC): 4 On/Off Footwear (QC): 6 Toileting (FIM): 6 (Using grabbar and 4WW, pt able to complete toileting by self.) Toileting Hygiene (QC): 6 Toilet/Commode Transfer (FIM): 6 (Using grabbar and 4WW for transfer.) Toilet Transfer (QC): 6 Shower Transfer(FIM): 6 (Using 4WW, grabbar and shower bench pt is able to complete transfer.) Pt has demonstrated ability to complete all ADLs. Pt has increased edema in LE' s and pain, unsteadiness due to this. Other Treatment Pt completed 4 UE exercises with 2# wt, 3 sets 10 reps. Pt tolerated well. After therapy, pt sitting in recliner with call light/phone in reach. All needs met in room. OT Short Term Goals Short Term Goals Time Frame: Oct 19, 2017 Grooming(FIM): 6 Bathing(FIM): 5 Bathing Location: L Arm, R Arm, L Upper Leg, R Upper Leg, L Lower Leg ( including foot), R Lower Leg (including foot), Chest, Abdomen, Buttocks, Perineal Area Upper Body Dressing(FIM): 6 Lower Body Dressing(FIM): 5 Toileting(FIM): 5 Transfers (B,C,W/C) (FIM): 5 (met) Toilet/Commode Transfer(FIM): 5 Additional Short Term Goals: 3-ImproveStrength/Jaylene 1=Demonstrate adherence to instructed precautions during ADL tasks. 2=Patient will verbalize/demonstrate understanding of assistive devices/ modifications for ADL. 3=Patient will improve strength/tolerance for activity to enable patient to perform ADL's. OT Senior Living Goals Senior Living Goals Time Frame: Oct 26, 2017 Eating (FIM): 7 (met-10/13/2017) Eating (QC): 6 (met-10/13/2017) Groomin (met-10/13/2017) Oral Hygiene (QC): 6 (met-10/13/2017) Bathing(FIM): 6 (met-10/13/2017) Bathing Location: L Arm, R Arm, L Upper Leg, R Upper Leg, L Lower Leg ( including foot), R Lower Leg (including foot), Chest, Abdomen, Buttocks, Perineal Area Shower/Bathe Self (QC): 6 (met-10/13/2017) Upper Body Dressing(FIM): 6 (met-10/13/2017) Upper Body Dressing (QC): 6 (met-10/13/2017) Lower Body Dressing(FIM): 6 (not met) Lower Body Dressing (QC): 6 (not met) On/Off Footwear (QC): 6 (met-10/13/2017) Toileting(FIM): 6 (met-10/13/2017) Toileting Hygiene (QC): 6 (met-10/13/2017) Transfers (B,C,W/C) (FIM): 6 (met-10/13/2017) Toilet/Commode Transfer(FIM): 6 (met-10/13/2017) Toilet/Commode Transfer (QC): 6 (met-10/13/2017) Shower Transfer(FIM): 6 (met-10/13/2017) Additional Goals: 1-Demonstrate ADL Tasks, 2-Verbalize Understanding, 3- ImproveStrength/Jaylene 1=Demonstrate adherence to instructed precautions during ADL tasks. 2=Patient will verbalize/demonstrate understanding of assistive devices/ modifications for ADL. 3=Patient will improve strength/tolerance for activity to enable patient to perform ADL's. OT Education/Plan Discharge Recommendations Plan/Recommendations: Continue POC Treatment Plan/Plan of Care Patient would benefit from OT for education, treatment and training to promote independence in ADL's, mobility, safety and/or upper extremity function for ADL' s. Plan of Care: ADL Retraining, Functional Mobility, Group Exercise/Act as Ind, UE Funct Exercise/Act Treatment Duration: Oct 26, 2017 Frequency: At least 5 of 7 days/Wk (IRF) Estimated Hrs Per Day: 1.5 hours per day Rehab Potential: Guarded Time/GCodes Start Time: 06:50 Stop Time: 07:50 Total Time Billed (hr/min): 60 Billed Treatment Time 1 visit-ADL 3 (50 min) EX 1 (10 min) ERROL KEENE Oct 13, 2017 07:55
[2017-10-13 08:48] VITALS: BP 126/70
[2017-10-13] MEDS: CALCIUM CARB + VIT D 600 MG (CALCARB + D) TAB PO SCH ×3 (08:48→20:23)
[2017-10-13] MEDS: Brinzolamide/Brimonidine Tart (Simbrinza) 1%-0.2% Eye Drops OU SCH ×2 (08:48→20:28)
[2017-10-13] MEDS: doxAzosin 2 MG (CARDURA) TAB PO SCH ×2 (08:48→20:23)
[2017-10-13] MEDS: meTOprolol SUCCINATE 100 MG (TOPROL XL) TAB PO SCH (08:49)
[2017-10-13] MEDS: LACTULOSE SYRUP 10GM/15ML (ENULOSE) 30ML UDC PO SCH ×2 (08:49→20:28)
[2017-10-13] MEDS: POLYETHYLENE GLYCOL 17 GM (MIRALAX) PACK PO SCH ×2 (08:49→20:28)
[2017-10-13] MEDS: OMEGA 3 (FISH OIL) 1000 MG CAP PO SCH ×3 (08:49→20:23)
[2017-10-13] MEDS: CLOPIDOGREL 75 MG (PLAVIX) TABLET PO SCH (08:49)
[2017-10-13] MEDS: inSUlin DETERMIR 1 UNIT/0.01 ML (LEVEMIR) CHARGE PER UNIT SQ SCH ×2 (08:49→20:24)
[2017-10-13] MEDS: GABAPENTIN 100 MG (NEURONTIN) CAP PO SCH ×3 (08:49→20:23)
--- NOTE | 2017-10-13 09:44 | PM & R (SOAP) Progress Note ---
Subjective This was a face to face visit with the patient. Date Seen by Provider: Oct 13, 2017 Time Seen by Provider: 08:00 Subjective/Events-last exam Patient was seen in her room this AM Patient SBA for transfers Current labs reviewed Discharge set for Monday10-15-17.Curent meds and labs reviewed Review of Systems Cardiovascular: Edema Objective Physician Exam Last Set of Vital Signs Vital Signs Date Time Temp Pulse Resp B/P (MAP) Pulse Ox O2 Delivery O2 Flow Rate FiO2 10/13/17 09:08 Nasal Cannula 3.00 10/13/17 08:48 73 126/70 (88) 10/13/17 03:00 97.5 20 98 Capillary Refill : I&O Intake and Output 10/12/17 23:59 Intake Total 1840 ml Balance 1840 ml Intake Oral 1840 ml # Voids 8 # Bowel Movements 1 General: Alert, Oriented X3, Cooperative, No Acute Distress HEENT: Atraumatic, PERRLA, EOMI, Mucous Memb Moist/[place] Neck: Supple, No JVD Lungs: Clear to Auscultation, Normal Air Movement Heart: Regular Rate, No Murmurs Abdomen: Normal Bowel Sounds, Soft, No Tenderness, No Hepatosplenomegaly, No Masses Extremities: No Edema, No Tenderness/Swelling Neuro: Sensation Intact (Diminished to touch in feet), Other (Strength 4-/5 Both UES and Lower extremities) Psych/Mental Status: Other (Cognition intact) Results Lab Data Laboratory Tests 10/10/17 11:10: Glucometer 133H 10/10/17 15:58: Glucometer 142H 10/10/17 20:08: Glucometer 110 10/11/17 04:27: Glucometer 125H 10/11/17 05:25: Sodium Level 137, Potassium Level 6.4H, Chloride Level 111H, Carbon Dioxide Level 15L, Anion Gap 11, Blood Urea Nitrogen 78H, Creatinine 2.51H, Estimat Glomerular Filtration Rate 19, BUN/Creatinine Ratio 31, Glucose Level 117H, Calcium Level 8.6, Magnesium Level 2.7H 10/11/17 09:38: Glucometer 129H 10/11/17 11:11: Glucometer 133H 10/11/17 15:05: Potassium Level 5.6H 10/11/17 16:38: Glucometer 153H 10/11/17 19:26: Glucometer 174H 10/12/17 04:22: Glucometer 156H 10/12/17 05:51: Sodium Level 139, Potassium Level 4.7, Chloride Level 110H, Carbon Dioxide Level 17L, Anion Gap 12, Blood Urea Nitrogen 84H, Creatinine 2.49H, Estimat Glomerular Filtration Rate 19, BUN/Creatinine Ratio 34, Glucose Level 136H, Calcium Level 8.5, Magnesium Level 2.0 10/12/17 11:05: Glucometer 119H 10/12/17 16:36: Glucometer 199H 10/12/17 21:40: Glucometer 155H 10/13/17 04:16: Glucometer 152H Assessment/Plan Assessment and Plan Left CVA with Mild Rt HP HTN controlled CKD stage 4 Hyperkalemia resolved wit Kaxelelate RX Hypomagnesemia on replacement Hyopventilation syndrome on Supplemental 02 IDDM Diabetic Peripheral neuropathy HX of multiple tias HX of DVT rt leg s/p IVC filter placement Iron def anemia Renal osteodystrophy s/p Nephrostomy tube in past CAD Plan Continue PT/OT Discharge remains set for Monday10-15-17 back to her [facility] apartment with [facility] F/U with [facility] physician See orders. (1) CVA (cerebral vascular accident) Status: Acute (2) Cerebrovascular disease or lesion Status: Chronic Co-Morbidities that are continuing to impact the rehab process: (include details ) NAPOLEON IVAN MD Oct 13, 2017 09:44
[2017-10-13] MEDS ORDERED: ACHD5005 PO (09:51)
[2017-10-13] MEDS ORDERED: METO-395 PO (09:51)
[2017-10-13] MEDS ORDERED: HYDR-3923 PO (09:51)
[2017-10-13] MEDS ORDERED: DOXA2TAB2 PO (09:51)
--- NOTE | 2017-10-13 10:02 | Physical Therapy Daily Note ---
PT Daily Note-Current Subjective Patient in recliner pre tx, agrees to PT, no complaints of pain. Appearance Patient in therapy gym post tx with OT. Mental Status Patient Orientation: Person, Place, Situation Attachments: Oxygen Transfers Functional [place] Measure 0=Not Assessed/NA 4=Minimal Assistance 1=Total Assistance 5=Supervision or Setup 2=Maximal Assistance 6=Modified [place] 3=Moderate Assistance 7=Complete IndependenceIRFPAI Quality Coding Scale 6 Independent with activity with or without an assistive device 5 Patient requires set up or clean up by helper. Patient completes activity by themselves 4 Supervision or touching assist (CGA). [place] provide cues , steadying assist 3 The helper provides less than half the effort to complete the activity 2 The helper provides more than half the effort to complete the activity 1 Dependent. The helper does all the effort to complete an activity 7 Patient refused to complete or attempt activity 9 The patient did not perform the activity before the current illness or injury 88 Not attempted due to Medical conditions or safety concerns Transfers (B, C, W/C) (FIM): 5 Scootin Rollin Roll Left to Right (QC): 6 Supine to/from Sit: 6 Sit to/from Stand: 5 Sit to Lying (QC): 6 Sit to Stand (QC): 4 Chair/Amx-bb-Mmmib Xfer(QC): 4 Bed to/from Chair: 4 Car Transfer (QC): 3 Patient performs bed mobility with mod I, sit to stand and transfers with SBA, car transfer with min assist. Patient needs assist getting one leg into and out during car transfer, cues for hand placement and safety during transfers. Weight Bearing Right Lower Extremity: Right Full Weight Bearing Left Lower Extremity: Left Full Weight Bearing Gait Training Gait (FIM): 5 Distance: 200' Walk 10 feet (QC): 4 Walk 50 ft with 2 Turns(QC): 4 Walk 150 ft (QC): 4 Walking 10ft/uneven surface-QC: 4 Gait Level of Assist: 5 Gait Persons Needed: 1 Gait Assistive Device: Walker 4 Wheeled Patient can ambulate 200'x2 with a 4 wheeled walker with SBA, including 50' with at least 2 turns of 90 degrees and 10' over an uneven surface. She gets very SOB but her O2 stayed at 97% and HR was 80bpm. Wheelchair Training Does the Pt Use a Wheelchair?: No Stair Training Stair Training: Handrails/: 2 handrails Stairs (FIM): 2 #of Steps: 8 1 Step (curb) (QC): 4 4 Steps (QC): 4 Stairs: Pattern: Step to Level of Assist: 5 Patient can go up and down 8 steps using 2 handrails with SBA. Balance Picking up an Object (QC): 88 Exercises LAQ alternating for 5 min NuStep Minutes: 15 NuStep Workload: 4 Treatments bed mobility and transfers, ambulation, stair training, gait training, functional strengthening Assessment Current Status: Fair Progress Patient performed well but seemed to have more trouble with SOB. She also stated that she has chest pain occasionally, nurse notified. PT Short Term Goals Short Term Goals Transfers (B,C,W/C) (FIM): 5 (met) PT Usp Goals Usp Goals PT Director [employer] Goals Time Frame: Oct 13, 2017 Transfers (B,C,W/C) (FIM): 6 Sit to Lying (QC): 6 (met) Lying-Sitting on Side/Bed(QC): 6 (met) Sit to Stand (QC): 6 Rollin (met) Roll Left to Right (QC): 6 (met) Chair/Ebs-po-Agepe Xfer(QC): 6 Car Transfer (QC): 6 Does the Patient Walk: Yes Gait (FIM): 6 Gait distance (FIM): 3=150 ft (with negotiating O2 tubing in and around room) Distance: 150' Walk 10 feet (QC): 6 Walk 10ft-Uneven Surface(QC): 6 Walk 50ft with 2 Turns (QC): 6 Walk 150 ft (QC): 6 Gait Level of Assist: 6 Gait Assistive Device: Walker 4 Wheeled Stairs (FIM): 1 # of Steps: 1 1 Step (curb) (QC): 6 4 Steps (QC): 9 12 Steps (QC): 9 Stairs Level Of Assist: 6 Picking up an Object (QC): 5 PT Plan Problem List Problem List: Activity Tolerance, Functional Strength, Safety, Balance, Gait, Transfer, Bed Mobility, ROM Treatment/Plan Treatment Plan: Continue Plan of Care Treatment Plan: Bed Mobility, Education, Functional Activity Jaylene, Functional Strength, Group Therapy, Gait, Safety, Therapeutic Exercise, Transfers Treatment Duration: Oct 13, 2017 Frequency: At least 5 of 7 days/Wk (IRF) Estimated Hrs Per Day: 1.5 hours per day Patient and/or Family Agrees t: Yes Safety Risks/Education Patient Education: Gait Training, Transfer Techniques, Steps, Correct Positioning, Safety Issues Teaching Recipient: Patient Teaching Methods: Demonstration, Discussion Response to Teaching: Reinforcement Needed Time/GCodes Time In: 0900 Time Out: 1000 Total Billed Treatment Time: 60 Total Billed Treatment 1 visit EX 25' GT 35' JAQUI ELISE PT Oct 13, 2017 10:01
--- NOTE | 2017-10-13 10:30 | Occupational Ther Daily Note ---
OT Current Status-Daily Note Subjective Pt finishing up with PT. Took over care of pt in therapy gym. Pt agrees to therapy. Mental Status/Objective Functional [place] Measure 0=Not Assessed/NA 4=Minimal Assistance 1=Total Assistance 5=Supervision or Setup 2=Maximal Assistance 6=Modified [place] 3=Moderate Assistance 7=Complete [place] ADL-Treatment Functional [place] Measure 0=Not Assessed/NA 4=Minimal Assistance 1=Total Assistance 5=Supervision or Setup 2=Maximal Assistance 6=Modified [place] 3=Moderate Assistance 7=Complete IndependenceIRFPAI Quality Coding Scale 6 Independent with activity with or without an assistive device 5 Patient requires set up or clean up by helper. Patient completes activity by themselves 4 Supervision or touching assist (CGA). [place] provide cues , steadying assist 3 The helper provides less than half the effort to complete the activity 2 The helper provides more than half the effort to complete the activity 1 Dependent. The helper does all the effort to complete an activity 7 Patient refused to complete or attempt activity 9 The patient did not perform the activity before the current illness or injury 88 Not attempted due to Medical conditions or safety concerns Other Treatment Pt completed arm bike duration 12 min at 10 resistance to increase strength and activity tolerance for daily functional tasks. Completed wrist flex/ext exercises with 2# wt, 2 sets 15 reps. Pt then ambulated back to room. After therapy, pt lying in bed with feet elevated. Call light/phone in reach. All needs met in room. OT Short Term Goals Short Term Goals Time Frame: Oct 19, 2017 Grooming(FIM): 6 Bathing(FIM): 5 Bathing Location: L Arm, R Arm, L Upper Leg, R Upper Leg, L Lower Leg ( including foot), R Lower Leg (including foot), Chest, Abdomen, Buttocks, Perineal Area Upper Body Dressing(FIM): 6 Lower Body Dressing(FIM): 5 Toileting(FIM): 5 Transfers (B,C,W/C) (FIM): 5 (met) Toilet/Commode Transfer(FIM): 5 Additional Short Term Goals: 3-ImproveStrength/Jaylene 1=Demonstrate adherence to instructed precautions during ADL tasks. 2=Patient will verbalize/demonstrate understanding of assistive devices/ modifications for ADL. 3=Patient will improve strength/tolerance for activity to enable patient to perform ADL's. OT Cashier Associate Goals Shelter Goals Time Frame: Oct 26, 2017 Eating (FIM): 7 Eating (QC): 6 Groomin Oral Hygiene (QC): 6 Bathing(FIM): 6 Bathing Location: L Arm, R Arm, L Upper Leg, R Upper Leg, L Lower Leg ( including foot), R Lower Leg (including foot), Chest, Abdomen, Buttocks, Perineal Area Shower/Bathe Self (QC): 6 Upper Body Dressing(FIM): 6 Upper Body Dressing (QC): 6 Lower Body Dressing(FIM): 6 Lower Body Dressing (QC): 6 On/Off Footwear (QC): 6 Toileting(FIM): 6 Toileting Hygiene (QC): 6 Transfers (B,C,W/C) (FIM): 6 Toilet/Commode Transfer(FIM): 6 Toilet/Commode Transfer (QC): 6 Shower Transfer(FIM): 6 Additional Goals: 1-Demonstrate ADL Tasks, 2-Verbalize Understanding, 3- ImproveStrength/Jaylene 1=Demonstrate adherence to instructed precautions during ADL tasks. 2=Patient will verbalize/demonstrate understanding of assistive devices/ modifications for ADL. 3=Patient will improve strength/tolerance for activity to enable patient to perform ADL's. OT Education/Plan Discharge Recommendations Plan/Recommendations: Continue POC Treatment Plan/Plan of Care Patient would benefit from OT for education, treatment and training to promote independence in ADL's, mobility, safety and/or upper extremity function for ADL' s. Plan of Care: ADL Retraining, Functional Mobility, Group Exercise/Act as Ind, UE Funct Exercise/Act Treatment Duration: Oct 26, 2017 Frequency: At least 5 of 7 days/Wk (IRF) Estimated Hrs Per Day: 1.5 hours per day Rehab Potential: Guarded Time/GCodes Start Time: 10:00 Stop Time: 10:30 Total Time Billed (hr/min): 30 Billed Treatment Time 1 visit-EX 2 (30 min) ERROL KEENE Oct 13, 2017 10:30
--- NOTE | 2017-10-13 11:33 | D/C HH Face to Face Order ---
D/C Face to Face Orders Instructions for Patient Patient Instructions/FollowUp: Dr. Palomo Physician to follow Patient: Dr. Palomo Discharge Diet for Home: other diet (60 CHO) Patient Data-Allergies,Ht & Wt Patient Allergies: Coded Allergies: Bacitracin Zinc (Unverified Allergy, Unknown, 07/11/17) Penicillins (Unverified Allergy, Unknown, HAS RECEIVED ROCEPHIN DURING PREVIOUS ADMIT, 07/11/17) bacitracin (Unverified Allergy, Unknown, 07/11/17) colistimethate sodium (Unverified Allergy, Unknown, 07/11/17) gramicidin D (Unverified Allergy, Unknown, 07/11/17) neomycin sulfate (Unverified Allergy, Unknown, 07/11/17) polymyxin B (Unverified Allergy, Unknown, 07/11/17) polymyxin B sulfate (Unverified Allergy, Unknown, 07/11/17) pramoxine HCl (Unverified Allergy, Unknown, 07/11/17) Height (Feet): 5 Height (Inches): 4.00 Weight (Pounds): 317 Weight (Ounces): 0.0 Home Health Need/Face to Face Date of Face to Face: Oct 15, 2017 Clinical Findings: Generalized weakness and fatigue, Muscle weakness, Unsteady gait I have seen Pt [id number]: Yes Discharged To: Home Diagnosis/Conditions: CVA Patient is Homebound due to: Tati fall risk due to instabilty, Muscle weakness , Shortness of breath/distress Homebound Status Due to the above stated illness, injury or surgical procedure (medical condition or diagnosis) and associated clinical findings, the patient is homebound because of his/her inability to leave home except with aid of a supportive device and/or person AND leaving the home requires a considerable and taxing effort or is medically contraindicated. Pt req the following assistanc: Walker Home Health Nursing Orders Home Health Services Order: Nursing Services, Truck Driver Flatbed-Evaluate & Treat, Physical Therapy-Evaluate & Treat Home Health Infusion Therapy Line Start Date: Oct 12, 2017 Line Start Time: 12:00 Line Type: [facility] Site Location: Chest Therapy Orders Therapy Orders: OT (must have SN or PT order), Physical Therapy Therapy Specific Orders: Eval assistive deivces, Teach enviro modifications/ safety, Gait training, Increase strength/endurance Certify Stmt I certify that this patient is under my care and that I, a nurse practitioner or a physician; a assistant program director working with me, had a face to face encounter that - meets the physician face to face encounter requirements with this patient as dated. I personally scribed for NAPOLEON IVAN MD ([facility]) on 10/13/17 at 11:33. Electronically submitted by Shirley Eng ([id number]). NAPOLEON IVAN MD Oct 13, 2017 11:33
--- NOTE | 2017-10-13 13:17 | Physical Therapy Daily Note ---
PT Daily Note-Current Subjective Patient agrees to PT. Pain Numeric Pain Scale: 5-Moderate Pain Location: Left Location Body Site: Hip Pain Description: Chronic Mental Status Patient Orientation: Normal For Age Attachments: Oxygen Transfers Functional [place] Measure 0=Not Assessed/NA 4=Minimal Assistance 1=Total Assistance 5=Supervision or Setup 2=Maximal Assistance 6=Modified [place] 3=Moderate Assistance 7=Complete IndependenceIRFPAI Quality Coding Scale 6 Independent with activity with or without an assistive device 5 Patient requires set up or clean up by helper. Patient completes activity by themselves 4 Supervision or touching assist (CGA). [place] provide cues , steadying assist 3 The helper provides less than half the effort to complete the activity 2 The helper provides more than half the effort to complete the activity 1 Dependent. The helper does all the effort to complete an activity 7 Patient refused to complete or attempt activity 9 The patient did not perform the activity before the current illness or injury 88 Not attempted due to Medical conditions or safety concerns Transfers (B, C, W/C) (FIM): 6 Scootin Supine to/from Sit: 6 Sit to/from Stand: 6 Sit to Stand (QC): 5 Weight Bearing Right Lower Extremity: Right Full Weight Bearing Left Lower Extremity: Left Full Weight Bearing Gait Training Does the Patient Walk?: Yes Gait (FIM): 6 Distance (FIM): 3=150 ft Distance: 150' x 4 Walk 10 feet (QC): 5 Walk 50 ft with 2 Turns(QC): 5 Walk 150 ft (QC): 5 Gait Level of Assist: 6 Gait Assistive Device: Walker 4 Wheeled steady gait sequence Assessment PT addressed pulmonary function with functional mobility. Patient does c/o increase SOA with minimal activity. Noted increased bilateral LE edema. PT Short Term Goals Short Term Goals Transfers (B,C,W/C) (FIM): 5 (met) PT [place] Goals Longterm Goals PT Longterm Goals Time Frame: Oct 13, 2017 Transfers (B,C,W/C) (FIM): 6 Sit to Lying (QC): 6 (met) Lying-Sitting on Side/Bed(QC): 6 (met) Sit to Stand (QC): 6 Rollin (met) Roll Left to Right (QC): 6 (met) Chair/[place]-Rerkc Xfer(QC): 6 Car Transfer (QC): 6 Does the Patient Walk: Yes Gait (FIM): 6 Gait distance (FIM): 3=150 ft (with negotiating O2 tubing in and around room) Distance: 150' Walk 10 feet (QC): 6 Walk 10ft-Uneven Surface(QC): 6 Walk 50ft with 2 Turns (QC): 6 Walk 150 ft (QC): 6 Gait Level of Assist: 6 Gait Assistive Device: Walker 4 Wheeled Stairs (FIM): 1 # of Steps: 1 1 Step (curb) (QC): 6 4 Steps (QC): 9 12 Steps (QC): 9 Stairs Level Of Assist: 6 Picking up an Object (QC): 5 PT Plan Treatment/Plan Treatment Plan: Continue Plan of Care Treatment Plan: Bed Mobility, Education, Functional Activity Jaylene, Functional Strength, Group Therapy, Gait, Safety, Therapeutic Exercise, Transfers Treatment Duration: Oct 13, 2017 Frequency: At least 5 of 7 days/Wk (IRF) Estimated Hrs Per Day: 1.5 hours per day Patient and/or Family Agrees t: Yes Time/GCodes Time In: 1240 Time Out: 1310 Total Billed Treatment Time: 30 Total Billed Treatment 1 visit FA x 2 30 min LANDON MALDONADO PT Oct 13, 2017 13:17
[2017-10-13 17:45] VITALS: BP 134/79
[2017-10-13] MEDS: VITAMIN D3 5,000 UNITS (CHOLECALCIFEROL ) CAPSULE PO SCH (20:23)
[2017-10-13] MEDS: ROSUVASTATIN 20 MG (CRESTOR) TABLET PO SCH (20:23)
[2017-10-13] MEDS: ASPIRIN E.C. 81 MG (ECOTRIN) TAB PO SCH (20:23)
[2017-10-13] MEDS: MULTIVIT W/MINERALS TAB (THERAGRAN M) PO SCH (20:23)
[2017-10-14] MEDS: hydrALAZINE (APRESOLINE) 25 MG TAB PO SCH ×3 (01:50→19:24)
[2017-10-14] MEDS: HYDROcodone/APAP 5 MG/325 MG (LORTAB) TAB PO PRN ×3 (01:51→12:39)
[2017-10-14 05:23] VITALS: BP 153/69
[2017-10-14] MEDS: inSUlin ASPART (NovoLOG) 1 UNIT/0.01 ML (CHARGE PER UNIT) SC SCH ×7 (06:24→21:13)
[2017-10-14] MEDS: meTOprolol SUCCINATE 100 MG (TOPROL XL) TAB PO SCH (08:02)
[2017-10-14] MEDS: OMEGA 3 (FISH OIL) 1000 MG CAP PO SCH ×3 (08:02→21:04)
[2017-10-14] MEDS: CLOPIDOGREL 75 MG (PLAVIX) TABLET PO SCH (08:02)
[2017-10-14] MEDS: GABAPENTIN 100 MG (NEURONTIN) CAP PO SCH ×3 (08:02→21:05)
[2017-10-14] MEDS: inSUlin DETERMIR 1 UNIT/0.01 ML (LEVEMIR) CHARGE PER UNIT SQ SCH ×2 (08:02→21:14)
[2017-10-14] MEDS: doxAzosin 2 MG (CARDURA) TAB PO SCH ×2 (08:02→21:00)
[2017-10-14] MEDS: CALCIUM CARB + VIT D 600 MG (CALCARB + D) TAB PO SCH ×3 (08:02→21:04)
[2017-10-14] MEDS: LACTULOSE SYRUP 10GM/15ML (ENULOSE) 30ML UDC PO SCH ×2 (08:06→21:00)
[2017-10-14] MEDS: POLYETHYLENE GLYCOL 17 GM (MIRALAX) PACK PO SCH ×2 (08:06→21:00)
[2017-10-14] MEDS: Brinzolamide/Brimonidine Tart (Simbrinza) 1%-0.2% Eye Drops OU SCH ×2 (08:06→21:12)
[2017-10-14 09:47] LABS: ALBUMIN 3.3 GM/DL (3.2-4.5); BILIRUBIN,TOTAL 0.2 MG/DL (0.1-1.0); CALCIUM 8.9 MG/DL (8.5-10.1); CREATININE SERUM 2.97 MG/DL (0.60-1.30); POTASSIUM 4.9 MMOL/L (3.6-5.0); TOTAL PROTEIN 6.7 GM/DL (6.4-8.2)
--- NOTE | 2017-10-14 10:33 | Physical Therapy Daily Note ---
PT Daily Note-Current Subjective Pt. up in chair and agrees to therapy. She c/o pain in (B) hips but does not give objective pain rating. Pt. reports she is possibly discharging tomorrow. Mental Status Patient Orientation: Normal For Age Attachments: Oxygen Transfers Functional [place] Measure 0=Not Assessed/NA 4=Minimal Assistance 1=Total Assistance 5=Supervision or Setup 2=Maximal Assistance 6=Modified [place] 3=Moderate Assistance 7=Complete IndependenceIRFPAI Quality Coding Scale 6 Independent with activity with or without an assistive device 5 Patient requires set up or clean up by helper. Patient completes activity by themselves 4 Supervision or touching assist (CGA). [place] provide cues , steadying assist 3 The helper provides less than half the effort to complete the activity 2 The helper provides more than half the effort to complete the activity 1 Dependent. The helper does all the effort to complete an activity 7 Patient refused to complete or attempt activity 9 The patient did not perform the activity before the current illness or injury 88 Not attempted due to Medical conditions or safety concerns Transfers (B, C, W/C) (FIM): 6 Sit to Stand (QC): 6 Weight Bearing Right Lower Extremity: Right Full Weight Bearing Left Lower Extremity: Left Full Weight Bearing Gait Training Does the Patient Walk?: Yes Gait (FIM): 6 Distance: 50 ft, 150 ft Gait Level of Assist: 6 Gait Assistive Device: Walker 4 Wheeled slow but steady gait using 4WW, fatigues with gait due to SOA Exercises NuStep Minutes: 10 NuStep Workload: 4 Treatments gait, LE exercise Assessment Current Status: Good Progress Pt. does well with gait and aerobic exercise but does become SOA during treatment requiring occasional seated rest period. Pt. on 3L O2 throughout treatment, O2 sats 94% with activity. Pt. returned to chair post session with call light and all needs met. PT Short Term Goals Short Term Goals Transfers (B,C,W/C) (FIM): 5 (met) PT Fdc Goals Information Resources Director Goals PT Information Resources Director Goals Time Frame: Oct 13, 2017 Transfers (B,C,W/C) (FIM): 6 Sit to Lying (QC): 6 (met) Lying-Sitting on Side/Bed(QC): 6 (met) Sit to Stand (QC): 6 Rollin (met) Roll Left to Right (QC): 6 (met) Chair/Fwd-eu-Yctef Xfer(QC): 6 Car Transfer (QC): 6 Does the Patient Walk: Yes Gait (FIM): 6 Gait distance (FIM): 3=150 ft (with negotiating O2 tubing in and around room) Distance: 150' Walk 10 feet (QC): 6 Walk 10ft-Uneven Surface(QC): 6 Walk 50ft with 2 Turns (QC): 6 Walk 150 ft (QC): 6 Gait Level of Assist: 6 Gait Assistive Device: Walker 4 Wheeled Stairs (FIM): 1 # of Steps: 1 1 Step (curb) (QC): 6 4 Steps (QC): 9 12 Steps (QC): 9 Stairs Level Of Assist: 6 Picking up an Object (QC): 5 PT Plan Treatment/Plan Treatment Plan: Continue Plan of Care Treatment Plan: Bed Mobility, Education, Functional Activity Jaylene, Functional Strength, Group Therapy, Gait, Safety, Therapeutic Exercise, Transfers Treatment Duration: Oct 13, 2017 Frequency: At least 5 of 7 days/Wk (IRF) Estimated Hrs Per Day: 1.5 hours per day Patient and/or Family Agrees t: Yes Time/GCodes Time In: 810 Time Out: 835 Total Billed Treatment Time: 25 Total Billed Treatment 1, Ex 10', GT 15' ADRIANA CARLISLE PT Oct 14, 2017 10:33
[2017-10-14 16:03] VITALS: BP 114/67
[2017-10-14] MEDS: ASPIRIN E.C. 81 MG (ECOTRIN) TAB PO SCH (21:04)
[2017-10-14] MEDS: VITAMIN D3 5,000 UNITS (CHOLECALCIFEROL ) CAPSULE PO SCH (21:04)
[2017-10-14] MEDS: ROSUVASTATIN 20 MG (CRESTOR) TABLET PO SCH (21:05)
[2017-10-14] MEDS: MULTIVIT W/MINERALS TAB (THERAGRAN M) PO SCH (21:10)
[2017-10-15] MEDS: hydrALAZINE (APRESOLINE) 25 MG TAB PO SCH ×2 (03:01→11:24)
[2017-10-15] MEDS: HYDROcodone/APAP 5 MG/325 MG (LORTAB) TAB PO PRN (03:47)
[2017-10-15 05:26] VITALS: BP 154/72
[2017-10-15] MEDS: inSUlin ASPART (NovoLOG) 1 UNIT/0.01 ML (CHARGE PER UNIT) SC SCH ×4 (06:00→11:26)
[2017-10-15 06:36] LABS: CALCIUM 9.1 MG/DL (8.5-10.1); CREATININE SERUM 3.13 MG/DL (0.60-1.30); POTASSIUM 5.2 MMOL/L (3.6-5.0)
[2017-10-15] MEDS: inSUlin DETERMIR 1 UNIT/0.01 ML (LEVEMIR) CHARGE PER UNIT SQ SCH (08:00)
[2017-10-15] MEDS: GABAPENTIN 100 MG (NEURONTIN) CAP PO SCH ×2 (08:01→12:33)
[2017-10-15] MEDS: LACTULOSE SYRUP 10GM/15ML (ENULOSE) 30ML UDC PO SCH (08:01)
[2017-10-15] MEDS: doxAzosin 2 MG (CARDURA) TAB PO SCH (08:01)
[2017-10-15] MEDS: CLOPIDOGREL 75 MG (PLAVIX) TABLET PO SCH (08:01)
[2017-10-15] MEDS: CALCIUM CARB + VIT D 600 MG (CALCARB + D) TAB PO SCH ×2 (08:01→12:32)
[2017-10-15] MEDS: POLYETHYLENE GLYCOL 17 GM (MIRALAX) PACK PO SCH (08:01)
[2017-10-15] MEDS: OMEGA 3 (FISH OIL) 1000 MG CAP PO SCH ×2 (08:01→12:32)
[2017-10-15] MEDS: meTOprolol SUCCINATE 100 MG (TOPROL XL) TAB PO SCH (08:02)
[2017-10-15] MEDS: Brinzolamide/Brimonidine Tart (Simbrinza) 1%-0.2% Eye Drops OU SCH (08:04)
[2017-10-15] MEDS ORDERED: NS IV 1000 ML 1,000 ML IV SCH (09:00)
[2017-10-15] MEDS ORDERED: NS 1000 ML IV BAG ONE (14:30)
[2017-10-15] MEDS ORDERED: ETOMIDATE IV SOLN 20 MG/10 ML VIAL ONE (14:30)
[2017-10-15] MEDS ORDERED: EPINEPHrine INJECTION 1 MG/ML AMP ONE (14:30)
[2017-10-15] MEDS ORDERED: SUCCINYLCHOLINE INJ 100 MG/5 ML SYR ONE (14:30)
[2017-10-15] MEDS ORDERED: MIDAZOLAM 5 MG/5 ML (VERSED) VIAL ONE (14:30)
[2017-10-15] MEDS ORDERED: CATHETER FLUSH 10 ML SYR ONE (14:30)
[2017-10-15] MEDS ORDERED: PROPOFOL DRIP (ICU) 100 ML IV ONE (14:59)
[2017-10-15 15:05] VITALS: BP 126/64
[2017-10-16] MEDS ORDERED: LOSA100T28 PO (09:14)
[2017-10-16] MEDS ORDERED: METO-370 PO (09:14)
[2017-10-16] MEDS ORDERED: METR500T21 PO (09:14)
--- NOTE | 2017-10-17 09:49 | Therapy Team Discharge Summary ---
Therapy Discharge Summary Discharge Recommendations Date of Discharge Oct 15, 2017 at 15:15 Therapy D/C Recommendations: Occupational Therapy Home Care Physical Therapy this patient was seen on ARU post acute hospital stay due to a hypertensive emergency. Prior to hospital stay, she was mod indep with all mobility, living alone in an apartment and still driving. Upon admit to this unit, she required SBA with gait and transfers. Treatment focused on functional strength and mobility as well as safety and functional activity tolerance. She was making excellent progress and at last visit, she was mod indep with gait and transfers. She still required much assist with a car transfer. Prior to discharge home, she had a medical event on this unit and transferred to ICU. DC from PT due to transfer off unit. Occupational Therapy Decreased Activ Tolerance, Decreased UE Strength, Impaired Funct Balance, Impaired I ADL's, Impaired Self-Care Skills PT Plant Cytologist Goals Skilled Nursing Goals PT Skilled Nursing Goals Time Frame: Oct 13, 2017 Transfers (B,C,W/C) (FIM): 6 (met) Roll Left to Right (QC): 6 (met) Sit to Lying (QC): 6 (met) Lying-Sitting on Side/Bed(QC): 6 (met) Sit to Stand (QC): 6 Chair/Jhm-us-Fmfgf Xfer(QC): 6 Car Transfer (QC): 6 (unmet scored a 3) Does the Patient Walk: Yes Gait (FIM): 6 (met) Gait distance (FIM): 3=150 ft (with negotiating O2 tubing in and around room) Distance: 150' Walk 10 feet (QC): 6 Walk 10ft-Uneven Surface(QC): 6 Walk 50ft with 2 Turns (QC): 6 Walk 150 ft (QC): 6 Gait Level of Assist: 6 Gait Assistive Device: Walker 4 Wheeled Stairs (FIM): 1 (not assessed) # of Steps: 1 1 Step (curb) (QC): 6 4 Steps (QC): 9 12 Steps (QC): 9 Stairs Level Of Assist: 6 Picking up an Object (QC): 5 OT Skilled Nursing Goals Skilled Nursing Goals Time Frame: Oct 26, 2017 Eating (FIM): 7 (met-10/13/2017) Eating (QC): 6 (met-10/13/2017) Oral Hygiene (QC): 6 (met-10/13/2017) Grooming(FIM): 6 (met-10/13/2017) Bathing(FIM): 6 (10/13/2017) Bathing Location: L Arm, R Arm, L Upper Leg, R Upper Leg, L Lower Leg ( including foot), R Lower Leg (including foot), Chest, Abdomen, Buttocks, Perineal Area Shower/Bathe Self (QC): 6 (-10/13/2017) Upper Body Dressing(FIM): 6 (met-10/13/2017) Upper Body Dressing (QC): 6 (met10/13/2017) Lower Body Dressing(FIM): 6 (not met) Lower Body Dressing (QC): 6 (not met) On/Off Footwear (QC): 6 (10/13/2017) Toileting(FIM): 6 (10/13/2017) Toileting Hygiene (QC): 6 (10/13/2017) Transfers (B,C,W/C) (FIM): 6 (10/13/2017) Toilet/Commode Transfer(FIM): 6 (met10/13/2017) Toilet/Commode Transfer (QC): 6 (10/13/2017) Shower Transfer(FIM): 6 (10/13/2017) Additional Goals: 1-Demonstrate ADL Tasks, 2-Verbalize Understanding, 3- ImproveStrength/Jaylene 1=Demonstrate adherence to instructed precautions during ADL tasks. 2=Patient will verbalize/demonstrate understanding of assistive devices/ modifications for ADL. 3=Patient will improve strength/tolerance for activity to enable patient to perform ADL's. ERROL BARBER PT Oct 17, 2017 09:49
--- NOTE | 2017-10-18 08:34 | Therapy Team Discharge Summary ---
Therapy Discharge Summary Discharge Recommendations Date of Discharge Oct 15, 2017 at 15:15 Therapy D/C Recommendations: Occupational Therapy Home Care Occupational Therapy Pt was seen for skilled OT to increase her independence in basic self care to allow her to safely return to her home after hypertensive emergency. On admission she was modified independent with eating, needed setup for upper body dressing, supervision/SBA for grooming, toileting and toilet transfers, min assist with bathing and mod assist with lower body dressing. By discharge she progressed to independent with eating, modified independent with grooming, bathing, upper body and toileting and supervision for lower body dressing. Equipment used included 4WW, long handled sponge, shower bench, grab bars, tall toilet. She also uses O2 nc. See tx plan for goals met. Home health OT is recommended. DC OT Decreased Activ Tolerance, Decreased UE Strength, Impaired Funct Balance, Impaired I ADL's, Impaired Self-Care Skills PT Flat Grinder Operator Goals Long-Term Goals PT Long-Term Goals Time Frame: Oct 13, 2017 Transfers (B,C,W/C) (FIM): 6 (met) Roll Left to Right (QC): 6 (met) Sit to Lying (QC): 6 (met) Lying-Sitting on Side/Bed(QC): 6 (met) Sit to Stand (QC): 6 Chair/Xpn-nx-Xogyr Xfer(QC): 6 Car Transfer (QC): 6 (unmet scored a 3) Does the Patient Walk: Yes Gait (FIM): 6 (met) Gait distance (FIM): 3=150 ft (with negotiating O2 tubing in and around room) Distance: 150' Walk 10 feet (QC): 6 Walk 10ft-Uneven Surface(QC): 6 Walk 50ft with 2 Turns (QC): 6 Walk 150 ft (QC): 6 Gait Level of Assist: 6 Gait Assistive Device: Walker 4 Wheeled Stairs (FIM): 1 (not assessed) # of Steps: 1 1 Step (curb) (QC): 6 4 Steps (QC): 9 12 Steps (QC): 9 Stairs Level Of Assist: 6 Picking up an Object (QC): 5 OT Long-Term Goals Flat Grinder Operator Goals Time Frame: Oct 26, 2017 Eating (FIM): 7 (met-10/13/2017) Eating (QC): 6 (met-10/13/2017) Oral Hygiene (QC): 6 (met-10/13/2017) Grooming(FIM): 6 (10/13/2017) Bathing(FIM): 6 (10/13/2017) Bathing Location: L Arm, R Arm, L Upper Leg, R Upper Leg, L Lower Leg ( including foot), R Lower Leg (including foot), Chest, Abdomen, Buttocks, Perineal Area Shower/Bathe Self (QC): 6 (met-10/13/2017) Upper Body Dressing(FIM): 6 (met-10/13/2017) Upper Body Dressing (QC): 6 (10/13/2017) Lower Body Dressing(FIM): 6 (not met) Lower Body Dressing (QC): 6 (not met) On/Off Footwear (QC): 6 (10/13/2017) Toileting(FIM): 6 (10/13/2017) Toileting Hygiene (QC): 6 (met10/13/2017) Transfers (B,C,W/C) (FIM): 6 (met-10/13/2017) Toilet/Commode Transfer(FIM): 6 (10/13/2017) Toilet/Commode Transfer (QC): 6 (10/13/2017) Shower Transfer(FIM): 6 (10/13/2017) Additional Goals: 1-Demonstrate ADL Tasks, 2-Verbalize Understanding, 3- ImproveStrength/Jaylene 1=Demonstrate adherence to instructed precautions during ADL tasks. 2=Patient will verbalize/demonstrate understanding of assistive devices/ modifications for ADL. 3=Patient will improve strength/tolerance for activity to enable patient to perform ADL's. LIANNA DE LOS SANTOS OT Oct 18, 2017 08:34
== END 2017-10-15 15:15 | disposition short-term general hospital (02) | DRG 57 ==
PROVIDERS: ADMIT Family Medicine; ATTEND Physical Medicine & Rehabilitation
DX: I69.351 Hemiplegia and hemiparesis following cerebral infarction affecting right dominant side (principal); E66.2 Morbid (severe) obesity with alveolar hypoventilation; Z68.43 Body mass index [BMI] 50.0-59.9, adult; N18.4 Chronic kidney disease, stage 4 (severe); I69.398 Other sequelae of cerebral infarction; R26.81 Unsteadiness on feet; E11.42 Type 2 diabetes mellitus with diabetic polyneuropathy; I12.9 Hypertensive chronic kidney disease with stage 1 through stage 4 chronic kidney disease, or unspecified chronic kidney disease; D63.1 Anemia in chronic kidney disease; I25.10 Atherosclerotic heart disease of native coronary artery without angina pectoris; N25.0 Renal osteodystrophy; I65.23 Occlusion and stenosis of bilateral carotid arteries; E83.42 Hypomagnesemia; E87.5 Hyperkalemia; E78.5 Hyperlipidemia, unspecified; Z79.4 Long term (current) use of insulin; Z99.81 Dependence on supplemental oxygen; Z95.5 Presence of coronary angioplasty implant and graft
CPT/HCPCS: 36415; 80048; 80053; 82962; 83735; 84132; 85027; 94002; 94760; 94799

== ENCOUNTER 2017-10-15 15:10 | Inpatient (IN) | payer MEDICARE, MEDICAID ==
[~2017-10-15] VITALS: Ht 162.6 cm; Wt 170.2 kg
[2017-10-15] VITALS (24 sets, daily range): BP systolic 71–150; BP diastolic 38–77
[2017-10-15 15:22] LABS: ABG BASE EXCESS -12.1 MMOL/L (-2.5-2.5); ABG OXYGEN SATURATION 94 % (94-100); ABG PCO2 52 MMHG (35-45); ABG PO2 87 MMHG (79-93); ABG TCO2 17.7 MMOL/L (21.0-31.0)
[2017-10-15 15:23] LABS: HEMATOCRIT 27 % (35-52); HEMOGLOBIN 8.6 G/DL (11.5-16.0); MEAN CORPUSCULAR HEMOGLOBIN 29 PG (25-34); MEAN CORPUSCULAR HGB CONC 31 G/DL (32-36); MEAN CORPUSCULAR VOLUME 93 FL (80-99); MEAN PLATELET VOLUME 10.4 FL (7.4-10.4); PLATELET COUNT 204 10^3/uL (130-400); RED BLOOD COUNT 2.95 10^6/uL (4.35-5.85); RED CELL DISTRIBUTION WIDTH 14.7 % (10.0-14.5); WHITE BLOOD COUNT 10.2 10^3/uL (4.3-11.0)
[2017-10-15 15:24] LABS: ALLENS TEST YES-POS; INSPIRED O2 12; PATIENT TEMP 96.9; VENTILATOR NO
[2017-10-15 15:32] LABS: BASOPHILS % (AUTO) 0 % (0-10); EOSINOPHILS % (AUTO) 0 % (0-10); LYMPHOCYTES # (AUTO) 2.2 X 10^3 (1.0-4.0); LYMPHOCYTES % (AUTO) 22 % (12-44); MONOCYTES # (AUTO) 0.8 X 10^3 (0.0-1.0); MONOCYTES % (AUTO) 9 % (0-12); NEUTROPHILS # (AUTO) 6.8 X 10^3 (1.8-7.8); NEUTROPHILS % (AUTO) 69 % (42-75)
[2017-10-15 15:41] LABS: ALANINE AMINOTRANSFERASE 35 U/L (0-55); ALBUMIN 3.4 GM/DL (3.2-4.5); ALKALINE PHOSPHATASE 102 U/L (40-136); BILIRUBIN,TOTAL 0.3 MG/DL (0.1-1.0); BUN/CREATININE RATIO 31; CARBON DIOXIDE 13 MMOL/L (21-32); CHLORIDE 105 MMOL/L (98-107); CREATININE SERUM 3.37 MG/DL (0.60-1.30); GFR ESTIMATED 14; GLUCOSE 217 MG/DL (70-105); MAGNESIUM 2.2 MG/DL (1.8-2.4); POTASSIUM 5.2 MMOL/L (3.6-5.0); SODIUM 135 MMOL/L (135-145); TOTAL PROTEIN 7.2 GM/DL (6.4-8.2)
--- NOTE | 2017-10-15 15:50 | Inpatient Code Blue ---
General Stated Complaint: POST CODE Source: RN/MD Exam Limitations: clinical condition History of Present Illness Date Seen by Provider: Oct 15, 2017 Time Seen by Provider: 14:48 Initial Comments Called emergently to the floor in the inpatient rehabilitation unit for CODE BLUE in progress. Apparently the patient had just gone to the bathroom and was sitting down in bed when she became very weak and then unresponsive. She was laid back in bed by the nurse. She was being considered for discharge today from inpatient rehabilitation unit but her labs apparently have been worsening. Patient went unresponsive without a pulse. She is morbidly obese. CPR initiated at that time by nursing. On my arrival, patient was being connected to the monitor with CPR in progress. No pulse initially but then noted agonal breathing and then pulse briefly. She subsequently lost pulse and CPR was reinitiated. Patient has known mild hyperkalemia as well as chronic renal failure. Timing/Duration: just prior to arrival Severity: severe Allergies and Home Medications Allergies Coded Allergies: Bacitracin Zinc (Unverified Allergy, Unknown, 07/11/17) Penicillins (Unverified Allergy, Unknown, HAS RECEIVED ROCEPHIN DURING PREVIOUS ADMIT, 07/11/17) bacitracin (Unverified Allergy, Unknown, 07/11/17) colistimethate sodium (Unverified Allergy, Unknown, 07/11/17) gramicidin D (Unverified Allergy, Unknown, 07/11/17) neomycin sulfate (Unverified Allergy, Unknown, 07/11/17) polymyxin B (Unverified Allergy, Unknown, 07/11/17) polymyxin B sulfate (Unverified Allergy, Unknown, 07/11/17) pramoxine HCl (Unverified Allergy, Unknown, 07/11/17) Home Medications Arginine 2,000 Mg Powd.pack, 2,000 MG PO TID, (Reported) Aspirin 81 Mg Tablet.dr, 81 MG PO HS, (Reported) Brinzolamide/Brimonidine Tart 8 Ml Drops.susp, 1 DROPS OU BID, (Reported) Calcium Carbonate/Vitamin D3 1 Each Tablet, 1 TAB PO TID, (Reported) Carboxymethylcellulos/Glycerin 15 Ml Drops, 15 ML OP Q4H PRN for DRY EYES, ( Reported) Cholecalciferol (Vitamin D3) 5,000 Unit Capsule, 5,000 UNITS PO HS, (Reported) Clopidogrel Bisulfate 75 Mg Tablet, 75 MG PO HS, (Reported) Darbepoetin Eliel in Polysorbat 10 Mcg/0.4 Ml Syringe, 20 MCG IJ every 2 weeks, ( Reported) Diphenoxylate HCl/Atropine 1 Each Tablet, 1 EACH PO QID PRN for DIARRHEA, ( Reported) Doxazosin Mesylate 2 Mg Tablet, 2 MG PO BID Prescribed by: NAPOLEON IVAN on 10/13/17950 Flaxseed Oil 1,000 Mg Capsule, 1,000 MG PO DAILY, (Reported) Gabapentin 100 Mg Capsule, 100 MG PO TID, (Reported) Hydralazine HCl 25 Mg Tablet, 50 MG PO Q8H Prescribed by: NAPOLEON IVAN on 10/13/17950 Hydrocodone Bit/Acetaminophen 1 Tab Tab, 1 TAB PO Q4H PRN for PAIN-MODERATE Prescribed by: NAPOLEON IVAN on 10/13/17950 Insulin Aspart 300 Units/3 Ml Solution, 9 UNITS SC AC, (Reported) Insulin Detemir 100 Unit/1 Ml Insuln.pen, 20 UNITS SC BID, (Reported) Magnesium Oxide 250 Mg Tablet, 250 MG PO HS, (Reported) Metoprolol Succinate 100 Mg Tab.er.24h, 100 MG PO DAILY Prescribed by: NAPOLEON IVAN on 10/13/17950 Multivitamin 1 Each Tablet, 1 TAB PO HS, (Reported) [place]-3/Dha/Epa/Fish Oil 1 Each Capsule, 1,000 MG PO TID, (Reported) Rosuvastatin Calcium 20 Mg Tablet, 20 MG PO HS, (Reported) Torsemide 100 Mg Tablet, 100 MG PO DAILY PRN for swelling, (Reported) Patient Home Medication List Home Medication List Reviewed: Yes Physical Exam Vital Signs Capillary Refill : General Appearance: severe distress, obese Neck: other (short neck) Respiratory: other (breath sounds bilateral with bagging) Cardiovascular: other (initially pulseless) Neurologic/Psychiatric: other (and unresponsive with CPR in progress) Skin: ecchymosis (several ecchymotic lesions noted on abdomen), pallor Procedures/Interventions Date of ETT Placement: Oct 15, 2017 Time of ETT Placement: 15:05 Intubation Method: orotracheal Tube Size: 7.5 Medications: Etomidate, Succinylcholine, Versed Positive End Tide CO2: Yes Breath Sounds after Intubation: bilateral-equal Intubation Complications: no complications Post Intubation Xray: Yes ET tube in good position at 2 cm above the monika Intubated with 7.5 tube to 23 cm at the lip. Postintubation x-ray ordered. Patient is a challenging intubation due to body habitus with short neck and large tongue. Cords were tight but tube was able to be passed. Progress/Results/Core Measures Progress Progress Note : Progress Note CPR was continued. Patient was pulseless and asystole and apneic. She would take occasional breast during CPR. Epinephrine 1 mg IV was given and CPR was continued. Pulse check, patient did have palpable carotid pulse with sinus rhythm on monitor. Patient still not taking adequate breaths and was unresponsive. Decision to intubate him emergently due to respiratory failure. This was done by me using video scope. Dr. Velazquez arrives shortly after 1500 and seemed care of the patient. Post intubation sedation with 5 mg of Versed. This did change her blood pressure from the 180s systolic to 120 systolic and stabilized. IV fluid was initiated. 1 L bolus started. Postcode labs ordered. Propofol drip to be initiated to started at 20 mcg/kg/m and then titrated from there. Patient to go to ICU under the care of Dr Velazquez. DEISY WARNER MD Oct 15, 2017 15:50
[2017-10-15 15:59] LABS: BILIRUBIN,URINE NEGATIVE (NEGATIVE); CLARITY,URINE VERY CLOUDY; COLOR,URINE YELLOW; GLUCOSE, URINE (UA) 1+ (NEGATIVE); KETONES,URINE NEGATIVE (NEGATIVE); LEUKOCYTE ESTERASE ,URINE 2+ (NEGATIVE); NITRITE,URINE NEGATIVE (NEGATIVE); PH,URINE 5 (5-9); PROTEIN,URINE 4+ (NEGATIVE); UROBILINOGEN,URINE NORMAL (NORMAL)
--- NOTE | 2017-10-15 16:14 | History & Physicial ([facility]) ---
HPI History of Present Illness: 67-year-old female who is currently in hospital on rehabilitation floor was noted to have slumped down in chair this afternoon after using the bathroom. At that time she was not responding to questions and ultimately it was determined that she wasn't breathing very well. Patient was taken to her bed where it was noted she had no pulse and immediately a CODE BLUE was called for. Patient has known coronary disease as well as known renal disease. 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 Most recently she had been having issues with her creatinine as well as BUN. According to the nurse today patient did not complain of any chest pain. She does have shortness of breath pretty much all the time but there was no increased level of dyspnea. Source: RN/MD Exam Limitations: clinical condition Date seen by provider: Oct 15, 2017 Time Seen by Provider: 16:00 Attending Physician Alberto Dotson MD PCP Iris Palomo MD Consult Date of Admission Oct 15, 2017 at 15:10 Home Medications Home Medications Reviewed patient Home Medication Reconciliation performed by pharmacy medication reconciliations parking technician and/or nursing. Patients Allergies have been reviewed. Allergies Coded Allergies: Bacitracin Zinc (Unverified Allergy, Unknown, 07/11/17) Penicillins (Unverified Allergy, Unknown, HAS RECEIVED ROCEPHIN DURING PREVIOUS ADMIT, 07/11/17) bacitracin (Unverified Allergy, Unknown, 07/11/17) colistimethate sodium (Unverified Allergy, Unknown, 07/11/17) gramicidin D (Unverified Allergy, Unknown, 07/11/17) neomycin sulfate (Unverified Allergy, Unknown, 07/11/17) polymyxin B (Unverified Allergy, Unknown, 07/11/17) polymyxin B sulfate (Unverified Allergy, Unknown, 07/11/17) pramoxine HCl (Unverified Allergy, Unknown, 07/11/17) VBO-Abdohv-Wfjhvz Hx Patient Social History Recent Hopitalizations: No Immunizations Up To Date Tetanus Booster (TDap): Unknown Date of Pneumonia Vaccine: Feb 20, 2017 Date of Influenza Vaccine: Feb 06, 2017 Past Medical History PMHx: HTN HERNAN on bipap IDDM CKD baseline Cr 2-2.5 h/o multiple TIAs h/o DVT, IVC filter in place Iron deficiency anemia Renal osteodystrophy CAD SurgHx: Cholecystectomy Tonsillectomy and adenoidectomy Carotid endarterectomy Hysterectomy Laser eye surgery Right foot tumor removal Osteomyelitis left fourth toe Family Medical History Significant Family History: Heart Disease, Diabetes, Hypertension Family History: Alzheimer's disease 19 MOTHER Cardiovascular disease Cataract 19 MOTHER Cataracts Congestive heart failure 19 FATHER Dementia 19 MOTHER Dementia 19 MOTHER Diabetes mellitus Family history: Allergy 19 FATHER 19 MOTHER Family history: Alzheimer's disease 19 MOTHER Family history: Cardiovascular disease 19 MOTHER Family history: Diabetes mellitus G8 BROTHER G8 BROTHER G8 SISTER Family history: Hypertension 19 FATHER Hearing loss G8 BROTHER Heart disease 19 FATHER G8 BROTHER G8 BROTHER G8 SISTER Hypertension 19 FATHER 19 MOTHER G8 BROTHER Infertile 19 FATHER 19 MOTHER G8 BROTHER G8 BROTHER G8 SISTER Myocardial infarction 19 FATHER Myocardial infarction 19 FATHER Psychotic disorder 19 FATHER Severe allergy G8 BROTHER G8 BROTHER Stroke 19 FATHER No Family History of: AIDS Abdominal aortic aneurysm Abdominal aortic aneurysm Gigi's disease Gigi's disease Alcoholism Alcoholism Aphasia Aphasia Arthritis Asthma Cancer Cancer of colon Cancer of mouth Chest pain Colon cancer Completed stroke Congenital disease Congenital heart disease Congenital heart disease Coronary thrombosis Cystic fibrosis Cystic fibrosis Dysphagia Family history: Arthritis Family history: Asthma Family history: Breast disease Family history: Coronary thrombosis Family history: Gastrointestinal disease Family history: Glaucoma Family history: Osteoporosis Family history: Thyroid disorder Fibrocystic disease of breast Gastroenteritis Glaucoma Headache Headache disorder Hereditary disease History of - anemia History of - disorder History of - respiratory disease History of drug abuse Human immunodeficiency virus (HIV) seropositivity Hypercholesterolemia Hypercholesterolemia Kidney disease Malignant neoplasm of lung Neoplasm Not obtainable due to adoption Osteoporosis Parkinson's disease Parkinson's disease Prostate cancer Psychosocial problem Seizure disorder Seizure disorder Thyroid disease Tuberculosis Tuberculosis Visual disorder Visual impairment Review of Systems (CHC) Constitutional: see HPI Reviewed Test Results Reviewed Test Results Lab Laboratory Tests Test 10/15/17 15:12 10/15/17 15:32 10/15/17 15:40 Range/Units White Blood Count 10.2 4.3-11.0 10^3/uL Red Blood Count 2.95 L 4.35-5.85 10^6/uL Hemoglobin 8.6 L 11.5-16.0 G/DL Hematocrit 27 L 35-52 % Mean Corpuscular Volume 93 80-99 FL Mean Corpuscular Hemoglobin 29 25-34 PG Mean Corpuscular Hemoglobin Concent 31 L 32-36 G/DL Red Cell Distribution Width 14.7 H 10.0-14.5 % Platelet Count 204 130-400 10^3/uL Mean Platelet Volume 10.4 7.4-10.4 FL Neutrophils (%) (Auto) 69 42-75 % Lymphocytes (%) (Auto) 22 12-44 % Monocytes (%) (Auto) 9 0-12 % Eosinophils (%) (Auto) 0 0-10 % Basophils (%) (Auto) 0 0-10 % Neutrophils # (Auto) 6.8 1.8-7.8 X 10^3 Lymphocytes # (Auto) 2.2 1.0-4.0 X 10^3 Monocytes # (Auto) 0.8 0.0-1.0 X 10^3 Eosinophils # (Auto) 0.0 0.0-0.3 10^3/uL Basophils # (Auto) 0.0 0.0-0.1 10^3/uL Lactic Acid Level 3.46 *H 0.50-2.00 MMOL/L Glucometer 217 H 70-110 MG/DL Radiology NAME: [facility] REC#: [id number] PT STATUS: DIS IN : 1950 PHYSICIAN: ALBERTO DOTSON MD ADMIT DATE: 09/30/17 Draft Date of Exam:10/15/17 CHEST 1 VIEW, AP/PA ONLY INDICATION: Post intubation. EXAMINATION: Portal supine AP chest at 3:17 p.m. FINDINGS: The cardiomegaly noted on the prior exam of 10/03/2017 is again evident and no different. In the interval since the prior study an alveolar/interstitial infiltrate has developed in the right perihilar region and right lung base. Most likely this is secondary to pneumonia/atelectasis. There is also a vague area of slightly increased density in the right upper lung and this too may be related to pneumonia/atelectasis. A small amount of abnormal density has developed at the left hilum as well. The left lung is otherwise generally clear. The mediastinum is not widened. The osseous structures are intact. In the interval since the prior study, the patient has been intubated. The ET tube overlies the distal tracheal air shadow, roughly 2 cm cephalad to the monika. It could be retracted 1 cm. There is also now an NG line in place. The tip of the NG line is not visualized but the line is seen overlying the left upper quadrant. The central venous catheter on the right, noted previously, is unchanged in position. IMPRESSION: 1. The appearance of the chest has worsened since the prior study as bilateral pneumonia/atelectasis has developed. There is greater involvement on the right. A followup study would be recommended for continued evaluation. 2. The patient has been intubated. The ET tube could be retracted approximately 1 cm. 3. These results will be discussed with Dr. Zendejas in the ER at the time of dictation. Dictated on workstation # [id number] Dict: 10/15/17 1543 Trans: 10/15/17 1559 [facility] [id number] Interpreted by: EMELY ANDERSON MD Electronically signed by: Physical Exam-([facility]) Physical Exam Vital Signs VS - Last 72 Hours, by Label 10/15/17 15:28 Pulse 72 Capillary Refill : General Appearance: other (Currently sedated and intubated) Respiratory: decreased breath sounds, rales Cardiovascular: regular rate, rhythm Gastrointestinal: soft Rectal: deferred Extremities: pedal edema (As well as her legs) Skin: cool Assessment/Plan Assessment/Plan Admission Dx 1. Asystole and she is status post CODE BLUE 2. Chronic renal disease 3. Bilateral pneumonia 4. Coronary artery disease 5. HTN 6. IDDM 7. Hypoventilation syndrome Admission Status: Inpatient Order (span 2 midnights) Reason for Inpatient Admission: Patient is admitted to intensive care unit following CODE BLUE. She will receive IV antibiotics as well as cardiopulmonary support. Assessment & Plan 1. Asystole and she is status post CODE BLUE -Patient admitted to the intensive care unit -Consultation with pulmonology or E ICU for vent management -Consultation with cardiology Dr. Tay 2. Chronic renal disease -IV fluids were initiated at one half normal saline with 100 bicarbonate to run at 100 mL per hour -Check chem 14 in the a.m. 3. Bilateral pneumonia -Initiate cefepime 2 g IV every 12 hours -Recheck chest x-ray in a.m. 4. Coronary artery disease 5. HTN 6. IDDM -Fingerstick glucose 4 times a day -Sliding-scale insulin 7. Hypoventilation syndrome ALBERTO DOTSON MD Oct 15, 2017 16:14
[2017-10-15 16:23] LABS: AMORPHOUS SEDIMENT,UR MOD AMOR URATES /LPF; BACTERIA,URINE MODERATE /HPF; SQUAMOUS EPITHELIAL CELL,UR 0-2 /HPF; WBC,URINE 50-100 /HPF
[2017-10-15] MEDS ORDERED: DOPamine DRIP 250 ML IV ONE (16:27)
[2017-10-15] MEDS ORDERED: ATROPINE INJECTION 1 MG/10 ML SYR (ABBOTT) ONE (16:27)
[2017-10-15] MEDS ORDERED: EPINEPHrine INJECTION 1 MG/ML AMP ONE (16:31)
[2017-10-15] MEDS ORDERED: NS IV 1000 ML 1,000 ML ONE ×2 (16:32→16:36)
[2017-10-15] MEDS: SODIUM BICARBONATE 8.4% VIAL 100 MEQ in 1/2 NS IV SOLUTION 1,000 ML IV SCH ×2 (16:57→23:39)
--- NOTE | 2017-10-15 16:57 | Consultation-Cardiology ---
HPI-Cardiology Cardiology Consultation: Date of Consultation 10/15/17 Time Seen by Provider: 16:30 Date of Admission Attending Physician Alberto Velazquez MD Admitting Physician Iris Palomo MD Consulting Physician TRELL GERONIMO MD, MA, FACP, FACC, [facility], CCDS Physician requesting consult: Dr Velazquez HPI: Chief Complaint: Reason for consultation: Cardio-resp arrest 67 yo woman who was on the Rehab floor and who had a witnessed arrest on the floor. CPR started immediately. Code was called. Dr Zendejas responded. Pt was found to be in probable asystole (although some artifact made monitor interpretation difficult). Treated with iv epi and continuing CPR. Shortly, she regained NSR and a low normal bp. Was intubated and transferred to ICU on [facility] vent. Not responsive and thus not able to provide any history or review of systems Review of Systems-Cardiology Review of Systems Constitutional: other (Pt unresponsive; see above under HPI) UWN-Rcpqgi-Mazbxz Hx Immunizations Up To Date Tetanus Booster (TDap): Unknown Date of Pneumonia Vaccine: Feb 20, 2017 Date of Influenza Vaccine: Feb 06, 2017 Past Medical History PMH As described under Assessment. Family Medical History Family History: Alzheimer's disease 19 MOTHER Cardiovascular disease Cataract 19 MOTHER Cataracts Congestive heart failure 19 FATHER Dementia 19 MOTHER Dementia 19 MOTHER Diabetes mellitus Family history: Allergy 19 FATHER 19 MOTHER Family history: Alzheimer's disease 19 MOTHER Family history: Cardiovascular disease 19 MOTHER Family history: Diabetes mellitus G8 BROTHER G8 BROTHER G8 SISTER Family history: Hypertension 19 FATHER Hearing loss G8 BROTHER Heart disease 19 FATHER G8 BROTHER G8 BROTHER G8 SISTER Hypertension 19 FATHER 19 MOTHER G8 BROTHER Infertile 19 FATHER 19 MOTHER G8 BROTHER G8 BROTHER G8 SISTER Myocardial infarction 19 FATHER Myocardial infarction 19 FATHER Psychotic disorder 19 FATHER Severe allergy G8 BROTHER G8 BROTHER Stroke 19 FATHER No Family History of: AIDS Abdominal aortic aneurysm Abdominal aortic aneurysm [place]'s disease [place]'s disease Alcoholism Alcoholism Aphasia Aphasia Arthritis Asthma Cancer Cancer of colon Cancer of mouth Chest pain Colon cancer Completed stroke Congenital disease Congenital heart disease Congenital heart disease Coronary thrombosis Cystic fibrosis Cystic fibrosis Dysphagia Family history: Arthritis Family history: Asthma Family history: Breast disease Family history: Coronary thrombosis Family history: Gastrointestinal disease Family history: Glaucoma Family history: Osteoporosis Family history: Thyroid disorder Fibrocystic disease of breast Gastroenteritis Glaucoma Headache Headache disorder Hereditary disease History of - anemia History of - disorder History of - respiratory disease History of drug abuse Human immunodeficiency virus (HIV) seropositivity Hypercholesterolemia Hypercholesterolemia Kidney disease Malignant neoplasm of lung Neoplasm Not obtainable due to adoption Osteoporosis Parkinson's disease Parkinson's disease Prostate cancer Psychosocial problem Seizure disorder Seizure disorder Thyroid disease Tuberculosis Tuberculosis Visual disorder Visual impairment Allergies and Home Medications Allergies Coded Allergies: Bacitracin Zinc (Unverified Allergy, Unknown, 07/11/17) Penicillins (Unverified Allergy, Unknown, HAS RECEIVED ROCEPHIN DURING PREVIOUS ADMIT, 07/11/17) bacitracin (Unverified Allergy, Unknown, 07/11/17) colistimethate sodium (Unverified Allergy, Unknown, 07/11/17) gramicidin D (Unverified Allergy, Unknown, 07/11/17) neomycin sulfate (Unverified Allergy, Unknown, 07/11/17) polymyxin B (Unverified Allergy, Unknown, 07/11/17) polymyxin B sulfate (Unverified Allergy, Unknown, 07/11/17) pramoxine HCl (Unverified Allergy, Unknown, 07/11/17) Home Medications Arginine 2,000 Mg Powd.pack, 2,000 MG PO TID, (Reported) Aspirin 81 Mg Tablet.dr, 81 MG PO HS, (Reported) Brinzolamide/Brimonidine Tart 8 Ml Drops.susp, 1 DROPS OU BID, (Reported) Calcium Carbonate/Vitamin D3 1 Each Tablet, 1 TAB PO TID, (Reported) Carboxymethylcellulos/Glycerin 15 Ml Drops, 15 ML OP Q4H PRN for DRY EYES, ( Reported) Cholecalciferol (Vitamin D3) 5,000 Unit Capsule, 5,000 UNITS PO HS, (Reported) Clopidogrel Bisulfate 75 Mg Tablet, 75 MG PO HS, (Reported) Darbepoetin Eliel in Polysorbat 10 Mcg/0.4 Ml Syringe, 20 MCG IJ every 2 weeks, ( Reported) Diphenoxylate HCl/Atropine 1 Each Tablet, 1 EACH PO QID PRN for DIARRHEA, ( Reported) Doxazosin Mesylate 2 Mg Tablet, 2 MG PO BID Prescribed by: NAPOLEON IVAN on 10/13/17 0951 Flaxseed Oil 1,000 Mg Capsule, 1,000 MG PO DAILY, (Reported) Gabapentin 100 Mg Capsule, 100 MG PO TID, (Reported) Hydralazine HCl 25 Mg Tablet, 50 MG PO Q8H Prescribed by: NAPOLEON IVAN on 10/13/17950 Hydrocodone Bit/Acetaminophen 1 Tab Tab, 1 TAB PO Q4H PRN for PAIN-MODERATE Prescribed by: NAPOLEON IVAN on 10/13/17950 Insulin Aspart 300 Units/3 Ml Solution, 9 UNITS SC AC, (Reported) Insulin Detemir 100 Unit/1 Ml Insuln.pen, 20 UNITS SC BID, (Reported) Magnesium Oxide 250 Mg Tablet, 250 MG PO HS, (Reported) Metoprolol Succinate 100 Mg Tab.er.24h, 100 MG PO DAILY Prescribed by: NAPOLEON IVAN on 10/13/17950 Multivitamin 1 Each Tablet, 1 TAB PO HS, (Reported) Whitt-3/Dha/Epa/Fish Oil 1 Each Capsule, 1,000 MG PO TID, (Reported) Rosuvastatin Calcium 20 Mg Tablet, 20 MG PO HS, (Reported) Torsemide 100 Mg Tablet, 100 MG PO DAILY PRN for swelling, (Reported) Patient Home Medication List Home Medication List Reviewed: Yes Physical Exam-Cardiology Physical Exam Vital Signs/I&O 10/15/17 10/15/17 10/15/17 10/15/17 15:28 15:30 15:45 16:00 Temp 97.2 Pulse 72 71 69 61 Resp 17 21 12 B/P (MAP) 136/74 (94) 126/64 (84) 107/46 (66) Pulse Ox 95 97 97 O2 Delivery Mechanical Ventilator Mechanical Ventilator Mechanical Ventilator O2 Flow Rate 100.00 100.00 100.00 10/15/17 10/15/17 10/15/17 16:22 16:30 16:35 Pulse 43 47 53 Resp 13 14 11 B/P (MAP) 71/38 (49) 76/42 (53) 86/40 (55) Pulse Ox 95 96 91 O2 Delivery Mechanical Ventilator Mechanical Ventilator Mechanical Ventilator O2 Flow Rate 100.00 100.00 100.00 Capillary Refill : Constitutional: other (unresponsive, intubated, on mech vent) HEENT: PERRL, other (intubated, on mech vent) Neck: other (carotids are palpable) Respiratory: other (on mech vent; no spontaneous resp; fair to good bilat air entry) Cardiovascular: regular rate-rhythm, S1 and S2, systolic murmur (soft ALEC at card base) Gastrointestinal: soft, audible bowel sounds Extremities: swelling (bilat, mod, nonpitting edema); No clubbing, No cyanosis Neurologic/Psychiatric: other (unresponsive) Skin: cool, diaphoresis (mildly diaphoretic); No rash on exposed areas, No ulcerations on exposed areas; other (good capillary refill) Data Review Labs Laboratory Tests 10/15/17 15:12: White Blood Count 10.2, Red Blood Count 2.95L, Hemoglobin 8.6L, Hematocrit 27L, Mean Corpuscular Volume 93, Mean Corpuscular Hemoglobin 29, Mean Corpuscular Hemoglobin Concent 31L, Red Cell Distribution Width 14.7H, Platelet Count 204, Mean Platelet Volume 10.4, Neutrophils (%) (Auto) 69, Lymphocytes (%) (Auto) 22 , Monocytes (%) (Auto) 9, Eosinophils (%) (Auto) 0, Basophils (%) (Auto) 0, Neutrophils # (Auto) 6.8, Lymphocytes # (Auto) 2.2, Monocytes # (Auto) 0.8, Eosinophils # (Auto) 0.0, Basophils # (Auto) 0.0, Sodium Level 135, Potassium Level 5.2H, Chloride Level 105, Carbon Dioxide Level 13L, Anion Gap 17H, Blood Urea Nitrogen 103*H, Creatinine 3.37H, Estimat Glomerular Filtration Rate 14, BUN/Creatinine Ratio 31, Glucose Level 217H, Lactic Acid Level 3.46*H, Calcium Level 9.0, Magnesium Level 2.2, Total Bilirubin 0.3, Aspartate Amino Transf (AST /SGOT) 36H, Alanine Aminotransferase (ALT/SGPT) 35, Alkaline Phosphatase 102, Troponin I < 0.30, B-Type Natriuretic Peptide 972.3H, Total Protein 7.2, Albumin 3.4 10/15/17 15:15: Blood Gas Puncture Site LT RADIAL, Blood Gas Patient Temperature 96.9, Arterial Blood pH 7.10*L, Arterial Blood Partial Pressure CO2 52H, Arterial Blood Partial Pressure O2 87, Arterial Blood HCO3 16*L, Arterial Blood Total CO2 17.7L , Arterial Blood Oxygen Saturation 94, Arterial Blood Base Excess -12.1L, James Test YES-POS, Blood Gas Ventilator Setting NO, Blood Gas Inspired Oxygen 12 10/15/17 15:32: Glucometer 217H 10/15/17 15:40: Urine Color YELLOW, Urine Clarity VERY CLOUDYH, Urine pH 5, Urine Specific [place] 1.025H, Urine Protein 4+, Urine Glucose (UA) 1+H, Urine Ketones NEGATIVE , Urine Nitrite NEGATIVE, Urine Bilirubin NEGATIVE, Urine Urobilinogen NORMAL, Urine Leukocyte Esterase 2+H, Urine RBC (Auto) 3+H, Urine RBC 10-25H, Urine WBC 50-100H, Urine Squamous Epithelial Cells 0-2, Urine Renal Epithelial Cells NONE , Urine Crystals PRESENTH, Urine Amorphous Sediment MOD VINICIUS URATESH, Urine Bacteria MODERATEH, Urine Casts PRESENT, Urine Hyaline Casts 2-5H, Urine Granular Casts 2-5H, Urine Mucus NEGATIVE, Urine Culture Indicated YES Laboratory Tests 10/15/17 15:12 A/P-Cardiology Assessment/Admission Diagnosis Bradycardic cardiac arrest, likely related to metabolic and electrolyte abnormalities. Sinus rhythm without any evidence of cor ischemia on the post- code ECG of 10/15/17 Acute on chronic renal failure associated with severe acidosis and mild to mod hyperkalemia Suspected septicemia H/o severe hypertension. Hospitalization with hypertensive encephalopathy in late September 2017 (managed by Dr Pedro) Coronary artery disease with a history of coronary stenting in early [address] Hairston. The patient is stated to have received Promus 2.25 x 32 mm stent in the distal left anterior descending and Promus 2.25 x 28 mm stent in the left circumflex. These stents were patent on last cath of 03/25/14, but she underwent additional stenting: distal LAD with MiniVision 2x12 and proximal first diagonal with Promus Mike 2.5x12. The RCA was dominant and with mild plaques at the time of last cath of 03/25/14. LVEDP was mildly elevated. CAD is currently clinically stable. Last MPI of 03/22/16 showed no evidence of myocard ischemia or infarction, normal wall motion and LVEF 65%. Echo of 03/21/16 was a technically difficult study, but showed LVEF 65%, trivial to mild MR & TR, mild AoV sclerosis w/o stenosis, PASP WNL H/o osteomyelitis of the R great toe managed by Dr Alex of the [facility] in [place], [place] Normal ABIs on 02/24/16 Carotid arterial disease with history of right carotid endarterectomy. Last carotid ultrasound of 07/24/17 showed 60-79% R ICA and less than 40% L ICA stenoses Maturity onset diabetes mellitus. Hyperlipidemia being treated with atorvastatin. Chronic kidney disease, stage IV, being managed by Dr Sarmad Varghese. Chronic anemia, likely related to chronic kidney disease, managed by Dr Augustin. H/o urinary tract infections, being managed by her pcp History of chronic, recurrent deep venous thrombosis. History of inferior vena cava placement by Dr. Duvall in September 2011. History of left venous port placement by Dr. Duvall. The patient is a [employer] and does not wish to ever receive any blood transfusions and is not, therefore, considered an ideal candidate for oral anticoagulation Chronic leg swelling and stasis dermatitis, likely related to venous insufficiency and calcium channel donna therapy, unchanged Obesity with hypoventilation syndrome; BMI 52 Sleep apnea syndrome, being managed by Dr Fernandez Chronic back and body pain Discussion and Recomendations * Complex management due to multiple comorbidities that are outlined above * ECG doesn't currently show any evidence of cor ischemia or infarction * The event appears to be primarily non-cardiac and is likely due to metabolic abnormalities (due to ac renal failure and/or septicemia) * Treat with iv fluids. Treat with bicarbonate * Treat hypotension as necessary * Prognosis guarded * I have spoken in detail on the phone with Dr Zendejas (who was present at the Code) and with Dr Velazquez (attending physician). I have spoken through video link with the EICU Monomer Recovery Operator who is currently taking care of the patient. I have spoken with patient's family (brother) TRELL GERONIMO MD FACP [facility] CCDS Oct 15, 2017 16:57
[2017-10-15] MEDS ORDERED: ATROPINE INJ 0.4 MG/ML SDV IV STA (17:01)
[2017-10-15] MEDS ORDERED: ATROPINE 0.4 MG/ML 20 ML VIAL IV NR (17:03)
--- NOTE | 2017-10-15 17:39 | Progress Note-Post Operative ---
Post-Operative Progess Note Surgeon (s)/Digital Campaign Specialist (s) Surgeon JUNAID BRASHER MD Digital Campaign Specialist: none Pre-Operative Diagnosis OSTEOMYELITIS, CHRONIC ANEMIA, NON-FUNCTIONING PORT, cardiac arrest Post-Operative Diagnosis same Procedure & Operative Findings Date of Procedure 10/15/17 Procedure Performed/Findings left subclavian central venous catheter placement. Anesthesia Type local Estimated Blood Loss Estimated blood loss (mL): minimal Specimens/Packing Specimens Removed none JUNAID BRASHER MD Oct 15, 2017 5:39 pm
[2017-10-15] MEDS ORDERED: VANCOMYCIN INJECTION 0.1 MG in NS (IVPB) 250 ML IV SCH (17:45)
[2017-10-15] MEDS ORDERED: NS IV 1000 ML 1,000 ML IV SCH ×2 (17:45→18:00)
[2017-10-15] MEDS ORDERED: DOPamine DRIP 250 ML IV SCH ×2 (17:45→18:00)
[2017-10-15] MEDS ORDERED: VANCOMYCIN INJECTION 2,000 MG in NS IV 500 ML 500 ML IV SCH (17:45)
[2017-10-15] MEDS ORDERED: NS (IVPB) 250 ML ONE (17:46)
[2017-10-15] MEDS ORDERED: VANCOMYCIN 1000 MG/VIAL ONE (17:46)
[2017-10-15] MEDS ORDERED: PANTOPRAZOLE 40 MG/10 ML (PROTONIX) VIAL ONE (17:48)
[2017-10-15 17:59] LABS: ABG BASE EXCESS -7.8 MMOL/L (-2.5-2.5); ABG OXYGEN SATURATION 99 % (94-100); ABG PCO2 41 MMHG (35-45); ABG PO2 148 MMHG (79-93); ABG TCO2 19.4 MMOL/L (21.0-31.0)
[2017-10-15] MEDS ORDERED: inSUlin ASPART (NovoLOG) 1 UNIT/0.01 ML (CHARGE PER UNIT) SC SCH ×2 (18:00→18:15)
[2017-10-15] MEDS ORDERED: VANCOMYCIN INJECTION 1,000 MG in NS (IVPB) 250 ML IV ONE ×4 (18:00)
[2017-10-15] MEDS ORDERED: fentaNYL INJECTION 100 MCG/2 ML AMP IVP PRN ×2 (18:00→18:15)
[2017-10-15 18:01] LABS: ABG PH 7.27 (7.37-7.43)
[2017-10-15 18:02] LABS: ALLENS TEST YES-POS; INSPIRED O2 100; PATIENT TEMP 97.1; VENTILATOR YES
[2017-10-15] MEDS: PROPOFOL DRIP (ICU) 100 ML IV SCH ×3 (18:07→22:51)
[2017-10-15] MEDS ORDERED: ACETAMINOPHEN 325 MG TABLET/CAPLET (TYLENOL) PO PRN ×2 (18:15→18:30)
--- NOTE | 2017-10-15 18:22 | CONSULTATION REPORT ---
DATE OF SERVICE: HISTORY OF PRESENT ILLNESS: The patient is a 67-year-old female who is currently admitted to the acute rehabilitation unit for a number of medical problems including osteomyelitis and uncontrolled diabetes. She was improving with rehabilitation; however, she was using the bathroom and then did become unconscious and was also not breathing well. No pulse was identified and ACLS protocol initiated. The patient does have multiple risk factors including coronary artery disease as well as renal disease. Once resuscitated, she was brought to the ICU and is hypotensive and will require multitude of IV medications including vasopressors and will require central venous catheter. PAST MEDICAL HISTORY: Hypertension, osteoarthritis, diabetes, coronary artery disease, and sleep apnea. PAST SURGICAL HISTORY: IVC filter placement, cholecystectomy, tonsillectomy, carotid endarterectomy, hysterectomy, laser eye surgery, debridement of osteomyelitis of the left fourth toe. ALLERGIES: BACITRACIN, PENICILLIN, NEOMYCIN, POLYMYXIN, PRAMOXINE, GRAMICIDIN, COLISTIMETHATE. MEDICATIONS: Plavix 75 mg daily, Toprol 100 mg daily, aspirin 81 mg daily, vitamin D daily, lactulose 10 g b.i.d., MiraLax b.i.d., Cardura 2 mg b.i.d., Levemir insulin 20 units b.i.d., losartan 100 mg daily, Crestor 20 mg daily, magnesium 400 mg daily, sliding scale insulin, gabapentin 100 mg t.i.d., fish oil 1000 mg t.i.d., and hydralazine 50 mg p.r.n. SOCIAL HISTORY: She was previously in an apartment complex. No known history of smoking or alcohol use. FAMILY HISTORY: Mother, father, brother and sister, diabetes. Mother, cardiovascular disease. Mother, father and brother, hypertension. Father, stroke. VITAL SIGNS: Temperature 97.2, blood pressure 121/57, pulse 112, respirations 16. The patient is intubated on 100% FiO2 with a pulse ox of 97%. REVIEW OF SYSTEMS: This is an obese female who is currently intubated and sedated. Again, she has a multitude of medical problems and comorbidities resulting in the need for inpatient rehabilitation. She had improved; however, did develop what appears to be a cardiopulmonary arrest and after resuscitation will require further testing, evaluation and treatment. PHYSICAL EXAMINATION: CHEST: Scattered rales bilaterally. HEART: Sinus tachycardia. No murmurs. EXTREMITIES: +1/3 bilateral lower extremity edema. Negative Homans sign. HEENT: No scleral icterus. No cervical lymphadenopathy. ABDOMEN: Soft, nontender, nondistended. SKIN: Warm, dry. LABORATORY DATA: WBC 10.2, hemoglobin 8.6, hematocrit 27, platelets 204. BUN 103, creatinine 3.37, lactic acid 3.46. ASSESSMENT AND PLAN: A 67-year-old female with multiple medical problems including hypertension, osteoarthritis, diabetes, coronary artery disease, sleep apnea with witnessed cardiopulmonary arrest requiring ACLS protocol, resuscitation and transferred to the ICU. She will need further evaluation and treatment as well as multitude of IV medications including vasopressors. We will proceed with placement of left subclavian central venous catheter. Job ID: [id number] DocumentID: [id number] Dictated Date: 10/15/2017 17:47:41 Brewmaster Date: 10/15/2017 18:21:20 Dictated By: JUNAID BRASHER MD MTDD
--- NOTE | 2017-10-15 18:25 | Diagnostic Imaging Report ---
INDICATION: Line placement. TECHNIQUE: Portable semi-upright view of the abdomen at 5:43 p.m. CORRELATION STUDY: None. FINDINGS: Overall imaging assessment is somewhat limited. There is tubing in the left upper quadrant, likely gastric tube which appears to be coiled in the fundal aspect of the stomach with tip terminating in the body of the stomach. IMPRESSION: 1. Limited portable imaging of the upper abdomen demonstrates gastric tube with likely tip at the level of the body of the stomach. Dictated by: Dictated on workstation # [id number]
--- NOTE | 2017-10-15 18:27 | Diagnostic Imaging Report ---
INDICATION: Line placement. TECHNIQUE: Single view chest, 5:41 p.m. CORRELATION STUDY: 10/15/2017. FINDINGS: Endotracheal tube, gastric tube, left subclavian central line and right IJ central line are all present. Left-sided central line is new, tip appearing to be over the SVC. Heart size is enlarged, mainstem prominent. Increasing patchy areas of infiltrate versus edema throughout both lung weiner. IMPRESSION: 1. Placement of left subclavian central line tip projecting over the SVC. No evidence for pneumothorax. 2. Extensive patchy infiltrates and/or edema throughout both lung weiner have adversely increased from prior study. Overall, there appear to be worsening features of fluid overload or failure as well. Dictated by: Dictated on workstation # [id number]
[2017-10-15 18:40] LABS: ABG BASE EXCESS -7.7 MMOL/L (-2.5-2.5); ABG OXYGEN SATURATION 99 % (94-100); ABG PCO2 43 MMHG (35-45); ABG PO2 164 MMHG (79-93); ABG TCO2 19.7 MMOL/L (21.0-31.0)
[2017-10-15 18:42] LABS: ABG PH 7.25 (7.37-7.43); ALLENS TEST YES-POS; INSPIRED O2 100%; PATIENT TEMP 97.3; VENTILATOR YES
--- NOTE | 2017-10-15 18:48 | OPERATIVE REPORT ---
DATE OF SERVICE: 10/15/2017 ATTENDING PRIMARY CARE PHYSICIAN: Iris Palomo MD ADMITTING PHYSICIAN: Dr. Velazquez. PREPROCEDURE DIAGNOSIS: Cardiopulmonary arrest. POSTPROCEDURE DIAGNOSIS: Cardiopulmonary arrest. PROCEDURE: Placement of left subclavian central venous catheter. SURGEON: Junaid Brasher MD ANESTHESIA: Local. ESTIMATED BLOOD LOSS: Minimal. FINDINGS: Catheter tip at the superior vena cava - right atrial junction. DISPOSITION: The patient tolerated the procedure well. INDICATIONS: The patient is a 67-year-old female with multiple medical problems and comorbidities including hypertension, osteoarthritis, diabetes, coronary artery disease as well as sleep apnea. She has been in inpatient acute rehabilitation unit. She was in the bathroom and became unresponsive with no pulse. ACLS protocol was initiated. She was resuscitated and brought to the ICU. She will require multiple IV fluids and medications including vasopressors and will require central venous catheter. DESCRIPTION OF PROCEDURE: The left neck and chest were prepped and draped in standard surgical fashion. Lidocaine 1% was used to anesthetize the left subclavian region. The left subclavian vein was then cannulated with drawing of venous blood. The cannulating needle was removed and a skin incision was made using 11 blade. A tract was then created using a venous dilator. A triple lumen central venous catheter was then placed over the guidewire using the Seldinger technique. Guidewire was removed and all three ports sourav venous blood and saline pushed in without any resistance. The catheter was sutured to the skin using 3-0 silk interrupted sutures. Catheter was then cleaned and covered with Op-Site. The patient tolerated the procedure well. We will get a post-procedure chest x-ray. Job ID: [id number] DocumentID: [id number] Dictated Date: 10/15/2017 17:50:58 Provider Network Mgr Date: 10/15/2017 18:48:01 Dictated By: JUNAID BRASHER MD
[2017-10-15] MEDS ORDERED: RT-ALBUTEROL SULF 2.5 MG/3 ML PRE-MIX VIAL ONE (18:54)
[2017-10-15] MEDS ORDERED: ROSUVASTATIN 20 MG (CRESTOR) TABLET PO SCH ×2 (21:00)
[2017-10-15] MEDS ORDERED: ASPIRIN 81 MG CHEW (CHILDREN'S ASA) PO SCH ×2 (21:00)
[2017-10-15] MEDS ORDERED: CHLORHEXIDINE 0.12% SOLN 15 ML (PERIDEX) UDC PO SCH (21:00)
[2017-10-15] MEDS ORDERED: CEFEPIME INJECTION 2,000 MG in NS (IVPB) 50 ML IV SCH (21:00)
[2017-10-15] MEDS: metroNIDAZOLE 500MG/100ML IVPB 100 ML IV SCH (21:23)
[2017-10-15] MEDS: CHLORHEXIDINE 0.12% SOLN 15 ML (PERIDEX) UDC PO SCH (21:23)
[2017-10-15] MEDS ORDERED: metroNIDAZOLE 500MG/100ML IVPB 100 ML IV SCH (22:00)
[2017-10-15] MEDS: RT-ALBUTEROL SULF 2.5 MG/3 ML PRE-MIX VIAL INH SCH (22:39)
[2017-10-16] VITALS (29 sets, daily range): BP systolic 96–141; BP diastolic 51–77
[2017-10-16] MEDS: PROPOFOL DRIP (ICU) 100 ML IV SCH ×6 (01:42→17:39)
[2017-10-16] MEDS: RT-ALBUTEROL SULF 2.5 MG/3 ML PRE-MIX VIAL INH SCH ×2 (03:01→06:22)
[2017-10-16 03:20] LABS: ABG OXYGEN SATURATION 98 % (94-100); ABG PCO2 39 MMHG (35-45); ABG PO2 94 MMHG (79-93); ABG TCO2 19.9 MMOL/L (21.0-31.0)
[2017-10-16 03:22] LABS: ABG PH 7.29 (7.37-7.43); ALLENS TEST YES-POS; INSPIRED O2 70%; PATIENT TEMP 96.2; VENTILATOR YES
[2017-10-16 03:29] LABS: BASOPHILS % (AUTO) 0 % (0-10); EOSINOPHILS % (AUTO) 0 % (0-10); HEMATOCRIT 24 % (35-52); HEMOGLOBIN 7.5 G/DL (11.5-16.0); LYMPHOCYTES # (AUTO) 0.8 X 10^3 (1.0-4.0); LYMPHOCYTES % (AUTO) 11 % (12-44); MEAN CORPUSCULAR HEMOGLOBIN 29 PG (25-34); MEAN CORPUSCULAR HGB CONC 32 G/DL (32-36); MEAN CORPUSCULAR VOLUME 92 FL (80-99); MEAN PLATELET VOLUME 9.5 FL (7.4-10.4); MONOCYTES # (AUTO) 0.7 X 10^3 (0.0-1.0); MONOCYTES % (AUTO) 9 % (0-12); NEUTROPHILS # (AUTO) 5.8 X 10^3 (1.8-7.8); NEUTROPHILS % (AUTO) 80 % (42-75); PLATELET COUNT 166 10^3/uL (130-400); RED BLOOD COUNT 2.58 10^6/uL (4.35-5.85); RED CELL DISTRIBUTION WIDTH 14.5 % (10.0-14.5); WHITE BLOOD COUNT 7.3 10^3/uL (4.3-11.0)
[2017-10-16 03:41] LABS: INR 1.2 (0.8-1.4); PROTHROMBIN TIME PATIENT 15.1 SEC (12.2-14.7)
[2017-10-16 04:02] LABS: ALBUMIN 2.9 GM/DL (3.2-4.5); BILIRUBIN,TOTAL 0.4 MG/DL (0.1-1.0); CALCIUM 8.4 MG/DL (8.5-10.1); CREATININE SERUM 3.16 MG/DL (0.60-1.30); MAGNESIUM 2.1 MG/DL (1.8-2.4); PHOSPHORUS 5.9 MG/DL (2.3-4.7); TOTAL PROTEIN 5.9 GM/DL (6.4-8.2)
--- NOTE | 2017-10-16 05:16 | Pulmonary Consultation ---
History of Present Illness History of Present Illness Date of Consultation 10/16/17 05:10 Time Seen by Provider: 05:10 Date of Admission History of Present Illness 67yo with hx of morbid obesity, CKD, CVA, CAD, CHF, debility admitted to ICU from rehab after post code blue. PT was on her way to the bathroom and had a syncopal episode. Witness fall and pt did not hit head. Pt had 1round of ACLS with chest compressions and 1 dose of epi. Pt then had RTOSC and transferred to ICU on vent. Pt does follow commands when awake. currently sedated on vent unable to obtain ROS. Allergies and Home Medications Allergies Coded Allergies: Bacitracin Zinc (Unverified Allergy, Unknown, 07/11/17) Penicillins (Unverified Allergy, Unknown, HAS RECEIVED ROCEPHIN DURING PREVIOUS ADMIT, 07/11/17) bacitracin (Unverified Allergy, Unknown, 07/11/17) colistimethate sodium (Unverified Allergy, Unknown, 07/11/17) gramicidin D (Unverified Allergy, Unknown, 07/11/17) neomycin sulfate (Unverified Allergy, Unknown, 07/11/17) polymyxin B (Unverified Allergy, Unknown, 07/11/17) polymyxin B sulfate (Unverified Allergy, Unknown, 07/11/17) pramoxine HCl (Unverified Allergy, Unknown, 07/11/17) Home Medications Arginine 2,000 Mg Powd.pack, 2,000 MG PO TID, (Reported) Aspirin 81 Mg Tablet.dr, 81 MG PO HS, (Reported) Brinzolamide/Brimonidine Tart 8 Ml Drops.susp, 1 DROPS OU BID, (Reported) Calcium Carbonate/Vitamin D3 1 Each Tablet, 1 TAB PO TID, (Reported) Carboxymethylcellulos/Glycerin 15 Ml Drops, 15 ML OP Q4H PRN for DRY EYES, ( Reported) Cholecalciferol (Vitamin D3) 5,000 Unit Capsule, 5,000 UNITS PO HS, (Reported) Clopidogrel Bisulfate 75 Mg Tablet, 75 MG PO HS, (Reported) Darbepoetin Eliel in Polysorbat 10 Mcg/0.4 Ml Syringe, 20 MCG IJ every 2 weeks, ( Reported) Diphenoxylate HCl/Atropine 1 Each Tablet, 1 EACH PO QID PRN for DIARRHEA, ( Reported) Doxazosin Mesylate 2 Mg Tablet, 2 MG PO BID Prescribed by: NAPOLEON IVAN on 10/13/17950 Flaxseed Oil 1,000 Mg Capsule, 1,000 MG PO DAILY, (Reported) Gabapentin 100 Mg Capsule, 100 MG PO TID, (Reported) Hydralazine HCl 25 Mg Tablet, 50 MG PO Q8H Prescribed by: NAPOLEON IVAN on 10/13/17950 Hydrocodone Bit/Acetaminophen 1 Tab Tab, 1 TAB PO Q4H PRN for PAIN-MODERATE Prescribed by: NAPOLEON IVAN on 10/13/17950 Insulin Aspart 300 Units/3 Ml Solution, 9 UNITS SC AC, (Reported) Insulin Detemir 100 Unit/1 Ml Insuln.pen, 20 UNITS SC BID, (Reported) Magnesium Oxide 250 Mg Tablet, 250 MG PO HS, (Reported) Metoprolol Succinate 100 Mg Tab.er.24h, 100 MG PO DAILY Prescribed by: NAPOLEON IVAN on 10/13/17950 Multivitamin 1 Each Tablet, 1 TAB PO HS, (Reported) Zeigler-3/Dha/Epa/Fish Oil 1 Each Capsule, 1,000 MG PO TID, (Reported) Rosuvastatin Calcium 20 Mg Tablet, 20 MG PO HS, (Reported) Torsemide 100 Mg Tablet, 100 MG PO DAILY PRN for swelling, (Reported) Past Iqjtmdp-Uucptt-Nlqmou Hx Patient Social History Alcohol Use: Denies Use Recreational Drug Use: No Smoking Status: Never a Smoker Recent Foreign Travel: No Contact w/Someone Who Travel: No Recent Infectious Disease Expo: No Recent Hopitalizations: No Immunizations Up To Date Tetanus Booster (TDap): Unknown PED Vaccines UTD: No Date of Pneumonia Vaccine: Feb 20, 2017 Date of Influenza Vaccine: Feb 06, 2017 Seasonal Allergies Seasonal Allergies: Yes Past Medical History Surgeries: Yes (FISSURE SX AFTER HYSTERECTOMY, Rt. 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 LEFT FOOT) Arthritis, Chronic Back Pain, Fractures Endocrine: Yes Diabetes, Insulin dep Are Your Blood Sugars Over 250: No HEENT: Yes Cataract Loss of Vision: Denies Hearing Impairment: Denies Cancer: No Psychosocial: No Integumentary: No Blood Disorders: Yes (Chronic ANEMIA- epo shots) Adverse Reaction/Blood Tranf: No (N/A) Family Medical History Alzheimer's disease 19 MOTHER Cardiovascular disease Cataract 19 MOTHER Cataracts Congestive heart failure 19 FATHER Dementia 19 MOTHER Dementia 19 MOTHER Diabetes mellitus Family history: Allergy 19 FATHER 19 MOTHER Family history: Alzheimer's disease 19 MOTHER Family history: Cardiovascular disease 19 MOTHER Family history: Diabetes mellitus G8 BROTHER G8 BROTHER G8 SISTER Family history: Hypertension 19 FATHER Hearing loss G8 BROTHER Heart disease 19 FATHER G8 BROTHER G8 BROTHER G8 SISTER Hypertension 19 FATHER 19 MOTHER G8 BROTHER Infertile 19 FATHER 19 MOTHER G8 BROTHER G8 BROTHER G8 SISTER Myocardial infarction 19 FATHER Myocardial infarction 19 FATHER Psychotic disorder 19 FATHER Severe allergy G8 BROTHER G8 BROTHER Stroke 19 FATHER No Family History of: AIDS Abdominal aortic aneurysm Abdominal aortic aneurysm Benton's disease Benton's disease Alcoholism Alcoholism Aphasia Aphasia Arthritis Asthma Cancer Cancer of colon Cancer of mouth Chest pain Colon cancer Completed stroke Congenital disease Congenital heart disease Congenital heart disease Coronary thrombosis Cystic fibrosis Cystic fibrosis Dysphagia Family history: Arthritis Family history: Asthma Family history: Breast disease Family history: Coronary thrombosis Family history: Gastrointestinal disease Family history: Glaucoma Family history: Osteoporosis Family history: Thyroid disorder Fibrocystic disease of breast Gastroenteritis Glaucoma Headache Headache disorder Hereditary disease History of - anemia History of - disorder History of - respiratory disease History of drug abuse Human immunodeficiency virus (HIV) seropositivity Hypercholesterolemia Hypercholesterolemia Kidney disease Malignant neoplasm of lung Neoplasm Not obtainable due to adoption Osteoporosis Parkinson's disease Parkinson's disease Prostate cancer Psychosocial problem Seizure disorder Seizure disorder Thyroid disease Tuberculosis Tuberculosis Visual disorder Visual impairment Heart Disease, Diabetes, Hypertension Review of Systems Time Seen by Provider: 06:33 Exam Exam Vital Signs Date Time Temp Pulse Resp B/P (MAP) Pulse Ox O2 Delivery O2 Flow Rate FiO2 10/16/17 04:59 140/69 10/16/17 04:27 56 26 90 70 10/16/17 04:00 54 21 99/54 (69) 97 Mechanical Ventilator 70.00 10/16/17 04:00 Mechanical Ventilator 70.00 10/16/17 03:01 53 23 93 70 10/16/17 03:00 52 19 114/61 (78) 93 Mechanical Ventilator 70.00 10/16/17 02:00 54 21 111/59 (76) 92 Mechanical Ventilator 70.00 10/16/17 01:42 96.4 54 20 108/58 93 Mechanical Ventilator 70.00 10/16/17 01:00 53 19 109/60 (76) 92 Mechanical Ventilator 70.00 10/16/17 01:00 53 10/16/17 00:50 54 20 93 70 10/16/17 00:00 Mechanical Ventilator 70.00 10/16/17 00:00 56 19 108/58 (75) 93 Mechanical Ventilator 70.00 10/15/17 23:46 96.4 10/15/17 23:39 96.4 55 21 113/60 92 Mechanical Ventilator 70.00 10/15/17 23:00 55 21 113/60 (77) 92 Mechanical Ventilator 70.00 10/15/17 22:51 54 104/58 10/15/17 22:40 50 20 94 70 10/15/17 22:00 53 22 103/66 (78) 93 Mechanical Ventilator 70.00 10/15/17 21:00 62 14 125/60 (81) 94 Mechanical Ventilator 70.00 10/15/17 20:47 84 17 122/77 (92) 92 Mechanical Ventilator 70.00 10/15/17 20:10 85 20 94 65 10/15/17 20:00 83 28 126/72 (90) 92 Mechanical Ventilator 65.00 10/15/17 20:00 Mechanical Ventilator 65.00 10/15/17 19:45 96.4 10/15/17 19:45 65 10 117/62 (80) 90 Mechanical Ventilator 65.00 10/15/17 19:37 97.2 53 20 104/51 90 Mechanical Ventilator 100.00 10/15/17 19:30 51 19 86/46 (59) 96 Mechanical Ventilator 65.00 10/15/17 19:15 52 19 91/49 (63) 94 Mechanical Ventilator 65.00 10/15/17 19:00 54 10/15/17 19:00 54 37 104/51 (68) 90 Mechanical Ventilator 65.00 10/15/17 18:59 53 20 90 60 10/15/17 18:10 106 23 150/75 (100) 100 Mechanical Ventilator 100.00 10/15/17 18:07 97.2 112 16 121/57 97 Mechanical Ventilator 100.00 10/15/17 17:00 112 16 121/57 (78) 97 Mechanical Ventilator 100.00 10/15/17 17:00 95 Mechanical Ventilator 100 10/15/17 16:59 97.2 53 11 86/40 91 Mechanical Ventilator 100.00 10/15/17 16:55 112 18 117/54 (75) 97 Mechanical Ventilator 100.00 10/15/17 16:50 109 13 117/53 (74) 96 Mechanical Ventilator 100.00 10/15/17 16:45 101 18 112/55 (74) 95 Mechanical Ventilator 100.00 10/15/17 16:40 85 20 98/46 (63) 92 Mechanical Ventilator 100.00 10/15/17 16:35 53 11 86/40 (55) 91 Mechanical Ventilator 100.00 10/15/17 16:30 47 14 76/42 (53) 96 Mechanical Ventilator 100.00 10/15/17 16:22 43 13 71/38 (49) 95 Mechanical Ventilator 100.00 10/15/17 16:00 61 12 107/46 (66) 97 Mechanical Ventilator 100.00 10/15/17 15:45 69 21 126/64 (84) 97 Mechanical Ventilator 100.00 10/15/17 15:30 97.2 71 17 136/74 (94) 95 Mechanical Ventilator 100.00 10/15/17 15:28 72 I & O 10/16/17 07:00 Intake Total 2200 ml Output Total 625 ml Balance 1575 ml General Appearance: Other (pt sedated on vent) Neck: Normal Inspection, Non Tender, Supple Respiratory: Crackles, Decreased Breath Sounds Cardiovascular: No Edema, No Murmur, Normal Peripheral Pulses Gastrointestinal: no pulsatile mass, distended Extremity: Normal Capillary Refill, Non Tender Skin: Normal Color, Warm/Dry Lymphatic: No Adenopathy Results Lab Laboratory Tests 10/15/17 15:12 10/16/17 03:25 Assessment/Plan Assessment/Plan S/p CODE Blue with RTOSC -Pt does follow commands and moves all extremities when sedation is weaned off Acute respiratory failure -Continue ventilatory care Acute on chronic renal failure with metabolic acidosis -Pt is on a bicarb gtt -Continue to monitor Hyperkalemia - now improved Anemia with hypotension -Pt is now off dopamine gtt -will transfuse 2 units of typed and crossed PRBC -monitor Morbid obesity/deconditioning Secondary to worsening renal function with fluid retention and metabolic acidosis I recommend transfer for possible HD unless pt/family would not want HD. Will d/w PCP and family. CORAZON SERVIN DO Oct 16, 2017 05:16
[2017-10-16] MEDS ORDERED: NS IV 500 ML 500 ML IV SCH (05:19)
[2017-10-16] MEDS: metroNIDAZOLE 500MG/100ML IVPB 100 ML IV SCH ×2 (05:40→13:27)
[2017-10-16] MEDS: inSUlin ASPART (NovoLOG) 1 UNIT/0.01 ML (CHARGE PER UNIT) SC SCH ×3 (05:42→15:48)
[2017-10-16] MEDS ORDERED: KCL 20 MEQ TAB (K-DUR) PO SCH (06:00)
[2017-10-16] MEDS ORDERED: POTASSIUM CL 10MEQ/50ML IVPB 50 ML IV SCH (06:00)
[2017-10-16] MEDS ORDERED: MAGNESIUM 1 GM/100 ML IVPB 100 ML IV SCH (06:00)
[2017-10-16] MEDS: SODIUM BICARBONATE 8.4% VIAL 100 MEQ in 1/2 NS IV SOLUTION 1,000 ML IV SCH ×2 (06:35→13:46)
--- NOTE | 2017-10-16 07:18 | Diagnostic Imaging Report ---
PATIENT HISTORY: On ventilator, followup, postcode, cardiac asystole. TECHNIQUE: Single frontal view of the chest. COMPARISON: 10/15/2017. FINDINGS: The endotracheal tube is approximately 4 cm from the monika. The right jugular line and the left subclavian line appear stable in position. The enteric tube tip is not well seen, however the tube is present in the esophagus. Lung volumes are low. There are airspace opacities in the lungs bilaterally which appear unchanged. No large pleural effusion or pneumothorax is seen. The cardiac silhouette is stable in size. IMPRESSION: 1. Low lung volumes with airspace opacities bilaterally. Aeration appears unchanged. 2. Stable tubes and lines. Dictated by: Dictated on workstation # [id number]
[2017-10-16] MEDS ORDERED: VANCOMYCIN INJECTION 0.1 MG in NS (IVPB) 250 ML IV SCH (08:00)
[2017-10-16] MEDS: CHLORHEXIDINE 0.12% SOLN 15 ML (PERIDEX) UDC PO SCH (08:06)
[2017-10-16] MEDS ORDERED: CLOPIDOGREL 75 MG (PLAVIX) TABLET PO SCH ×2 (09:00)
[2017-10-16] MEDS ORDERED: PANTOPRAZOLE 40 MG/10 ML (PROTONIX) VIAL IV SCH ×2 (09:00)
[2017-10-16] MEDS ORDERED: METR500T21 PO (09:14)
[2017-10-16] MEDS ORDERED: LOSA100T28 PO (09:14)
[2017-10-16] MEDS ORDERED: METO-370 PO (09:14)
--- NOTE | 2017-10-16 09:30 | Progress Note-Cardiology ---
Cardiology SOAP Progress Note Subjective: Intubated and sedated. Family at the bedside. Objective: I&O/Vital Signs 10/16/17 10/16/17 10/16/17 10/16/17 00:50 01:00 01:00 01:42 Temp 96.4 Pulse 54 53 53 54 Resp 20 19 20 B/P (MAP) 109/60 (76) 108/58 Pulse Ox 93 92 93 O2 Delivery Mechanical Ventilator Mechanical Ventilator O2 Flow Rate 70.00 70.00 FiO2 70 10/16/17 10/16/17 10/16/17 10/16/17 02:00 03:00 03:01 04:00 Pulse 54 52 53 Resp 21 23 B/P (MAP) 111/59 (76) 114/61 (78) Pulse Ox 92 93 93 O2 Delivery Mechanical Ventilator Mechanical Ventilator Mechanical Ventilator O2 Flow Rate 70.00 70.00 70.00 FiO2 70 10/16/17 10/16/17 10/16/17 10/16/17 04:00 04:27 04:59 05:00 Pulse 54 56 60 Resp 21 23 B/P (MAP) 99/54 (69) 140/69 141/66 (91) Pulse Ox 97 90 91 O2 Delivery Mechanical Ventilator Mechanical Ventilator O2 Flow Rate 70.00 70.00 FiO2 70 10/16/17 10/16/17 10/16/17 10/16/17 06:00 06:22 07:00 07:00 Temp 97.1 Pulse 57 56 60 59 Resp 20 B/P (MAP) 121/60 (80) 115/57 (76) Pulse Ox 93 92 94 O2 Delivery Mechanical Ventilator Mechanical Ventilator O2 Flow Rate 70.00 70.00 FiO2 70 10/16/17 10/16/17 10/16/17 10/16/17 08:00 08:00 08:49 09:00 Temp 97.1 Pulse 59 57 57 Resp 22 B/P (MAP) 111/53 (72) 121/58 (79) Pulse Ox 95 95 95 O2 Delivery Mechanical Ventilator Mechanical Ventilator Mechanical Ventilator O2 Flow Rate 70.00 70.00 70.00 FiO2 70 10/16/17 10/16/17 10/16/17 10/16/17 09:35 10:00 10:17 10:59 Temp 97.1 97.1 Pulse 57 56 57 57 Resp 21 21 22 22 B/P (MAP) 111/53 118/57 (77) 118/55 Pulse Ox 95 95 95 95 O2 Delivery Mechanical Ventilator Mechanical Ventilator Mechanical Ventilator O2 Flow Rate 70.00 70.00 70.00 FiO2 70 10/16/17 10/16/17 10/16/17 10/16/17 11:00 12:00 12:00 12:27 Temp 97.4 Pulse 57 53 57 Resp B/P (MAP) 107/51 (69) 110/55 (73) Pulse Ox 97 98 95 O2 Delivery Mechanical Ventilator Mechanical Ventilator Mechanical Ventilator O2 Flow Rate 70.00 70.00 70.00 FiO2 70 10/16/17 00:00 Intake Total 3300 ml Output Total 450 ml Balance 2850 ml Weight (Pounds): 375 Weight (Ounces): 3.0 Weight (Calculated Kilograms): 170.386310 Constitutional: other (unresponsive, intubated, on mech vent) Respiratory: other (on mech vent; no spontaneous resp; fair to good bilat air entry) Cardiovascular: regular rate-rhythm, S1 and S2, systolic murmur (soft ALEC at card base) Gastrointestional: soft, audible bowel sounds Extremities: swelling (bilat, mod, nonpitting edema); No clubbing, No cyanosis Neurologic/Psychiatric: other (unresponsive) Skin: cool, diaphoresis (mildly diaphoretic); No rash on exposed areas, No ulcerations on exposed areas; other (good capillary refill) Results/Procedures: Labs Laboratory Tests 10/15/17 15:12: White Blood Count 10.2, Red Blood Count 2.95L, Hemoglobin 8.6L, Hematocrit 27L, Mean Corpuscular Volume 93, Mean Corpuscular Hemoglobin 29, Mean Corpuscular Hemoglobin Concent 31L, Red Cell Distribution Width 14.7H, Platelet Count 204, Mean Platelet Volume 10.4, Neutrophils (%) (Auto) 69, Lymphocytes (%) (Auto) 22 , Monocytes (%) (Auto) 9, Eosinophils (%) (Auto) 0, Basophils (%) (Auto) 0, Neutrophils # (Auto) 6.8, Lymphocytes # (Auto) 2.2, Monocytes # (Auto) 0.8, Eosinophils # (Auto) 0.0, Basophils # (Auto) 0.0, Sodium Level 135, Potassium Level 5.2H, Chloride Level 105, Carbon Dioxide Level 13L, Anion Gap 17H, Blood Urea Nitrogen 103*H, Creatinine 3.37H, Estimat Glomerular Filtration Rate 14, BUN/Creatinine Ratio 31, Glucose Level 217H, Lactic Acid Level 3.46*H, Calcium Level 9.0, Magnesium Level 2.2, Total Bilirubin 0.3, Aspartate Amino Transf (AST /SGOT) 36H, Alanine Aminotransferase (ALT/SGPT) 35, Alkaline Phosphatase 102, Troponin I < 0.30, B-Type Natriuretic Peptide 972.3H, Total Protein 7.2, Albumin 3.4, Triglycerides Level 65 10/15/17 15:15: Blood Gas Puncture Site LT RADIAL, Blood Gas Patient Temperature 96.9, Arterial Blood pH 7.10*L, Arterial Blood Partial Pressure CO2 52H, Arterial Blood Partial Pressure O2 87, Arterial Blood HCO3 16*L, Arterial Blood Total CO2 17.7L , Arterial Blood Oxygen Saturation 94, Arterial Blood Base Excess -12.1L, James Test YES-POS, Blood Gas Ventilator Setting NO, Blood Gas Inspired Oxygen 12 10/15/17 15:32: Glucometer 217H 10/15/17 15:40: Urine Color YELLOW, Urine Clarity VERY CLOUDYH, Urine pH 5, Urine Specific [place] 1.025H, Urine Protein 4+, Urine Glucose (UA) 1+H, Urine Ketones NEGATIVE , Urine Nitrite NEGATIVE, Urine Bilirubin NEGATIVE, Urine Urobilinogen NORMAL, Urine Leukocyte Esterase 2+H, Urine RBC (Auto) 3+H, Urine RBC 10-25H, Urine WBC 50-100H, Urine Squamous Epithelial Cells 0-2, Urine Renal Epithelial Cells NONE , Urine Crystals PRESENTH, Urine Amorphous Sediment MOD VINICIUS URATESH, Urine Bacteria MODERATEH, Urine Casts PRESENT, Urine Hyaline Casts 2-5H, Urine Granular Casts 2-5H, Urine Mucus NEGATIVE, Urine Culture Indicated YES 10/15/17 17:51: Blood Gas Puncture Site RT RAD, Blood Gas Patient Temperature 97.1, Arterial Blood pH 7.27*L, Arterial Blood Partial Pressure CO2 41, Arterial Blood Partial Pressure O2 148H, Arterial Blood HCO3 18L, Arterial Blood Total CO2 19.4L, Arterial Blood Oxygen Saturation 99, Arterial Blood Base Excess -7.8L, James Test YES-POS, Blood Gas Ventilator Setting YES, Blood Gas Inspired Oxygen 100 10/15/17 18:12: Lactic Acid Level 0.61 10/15/17 18:37: Blood Gas Puncture Site RT RAD, Blood Gas Patient Temperature 97.3, Arterial Blood pH 7.25*L, Arterial Blood Partial Pressure CO2 43, Arterial Blood Partial Pressure O2 164H, Arterial Blood HCO3 18L, Arterial Blood Total CO2 19.7L, Arterial Blood Oxygen Saturation 99, Arterial Blood Base Excess -7.7L, James Test YES-POS, Blood Gas Ventilator Setting YES, Blood Gas Inspired Oxygen 100% 10/15/17 23:42: Glucometer 180H 10/16/17 03:12: Blood Gas Puncture Site R RAD, Blood Gas Patient Temperature 96.2, Arterial Blood pH 7.29*L, Arterial Blood Partial Pressure CO2 39, Arterial Blood Partial Pressure O2 94H, Arterial Blood HCO3 19L, Arterial Blood Total CO2 19.9L, Arterial Blood Oxygen Saturation 98, Arterial Blood Base Excess -7.0L, James Test YES-POS, Blood Gas Ventilator Setting YES, Blood Gas Inspired Oxygen 70% 10/16/17 03:25: White Blood Count 7.3, Red Blood Count 2.58L, Hemoglobin 7.5L, Hematocrit 24L, Mean Corpuscular Volume 92, Mean Corpuscular Hemoglobin 29, Mean Corpuscular Hemoglobin Concent 32, Red Cell Distribution Width 14.5, Platelet Count 166, Mean Platelet Volume 9.5, Neutrophils (%) (Auto) 80H, Lymphocytes (%) (Auto) 11L , Monocytes (%) (Auto) 9, Eosinophils (%) (Auto) 0, Basophils (%) (Auto) 0, Neutrophils # (Auto) 5.8, Lymphocytes # (Auto) 0.8L, Monocytes # (Auto) 0.7, Eosinophils # (Auto) 0.0, Basophils # (Auto) 0.0, Prothrombin Time 15.1H, INR Comment 1.2, Sodium Level 134L, Potassium Level 5.0, Chloride Level 106, Carbon Dioxide Level 17L, Anion Gap 11, Blood Urea Nitrogen 104*H, Creatinine 3.16H, Estimat Glomerular Filtration Rate 15, BUN/Creatinine Ratio 33, Glucose Level 191H, Calcium Level 8.4L, Phosphorus Level 5.9H, Magnesium Level 2.1, Total Bilirubin 0.4, Aspartate Amino Transf (AST/SGOT) 28, Alanine Aminotransferase ( ALT/SGPT) 31, Alkaline Phosphatase 95, Total Protein 5.9L, Albumin 2.9L 10/16/17 09:24: Glucometer 242H 10/16/17 10:54: Glucometer 237H Microbiology 10/15/17 Gram Stain - Final, Resulted 10/15/17 Sputum Culture - Preliminary, Resulted 10/15/17 Urine Culture - Preliminary, Resulted Procedures NAME: [facility] REC#: [id number] PT STATUS: ADM IN : 1950 PHYSICIAN: CORAZON FERNANDEZ DO ADMIT DATE: 10/15/17/ICU Draft Date of Exam:10/16/17 CHEST 1 VIEW, AP/PA ONLY PATIENT HISTORY: On ventilator, followup, postcode, cardiac asystole. TECHNIQUE: Single frontal view of the chest. COMPARISON: 10/15/2017. FINDINGS: The endotracheal tube is approximately 4 cm from the monika. The right jugular line and the left subclavian line appear stable in position. The enteric tube tip is not well seen, however the tube is present in the esophagus. Lung volumes are low. There are airspace opacities in the lungs bilaterally which appear unchanged. No large pleural effusion or pneumothorax is seen. The cardiac silhouette is stable in size. IMPRESSION: 1. Low lung volumes with airspace opacities bilaterally. Aeration appears unchanged. 2. Stable tubes and lines. Dictated on workstation # [id number] Dict: 10/16/17 0706 Trans: 10/16/17 0717 [facility] [id number] Interpreted by: VIKI TOMLIN MD Electronically signed by: A/P: Assessment: Bradycardic cardiac arrest, likely related to metabolic and electrolyte abnormalities. Sinus rhythm without any evidence of cor ischemia on the post- code ECG of 10/15/17 Acute on chronic renal failure associated with severe acidosis and mild hyperkalemia Suspected septicemia H/o severe hypertension. Hospitalization with hypertensive encephalopathy in late September 2017 (managed by Dr Pedro) Coronary artery disease with a history of coronary stenting in early [address] Hairston. The patient is stated to have received Promus 2.25 x 32 mm stent in the distal left anterior descending and Promus 2.25 x 28 mm stent in the left circumflex. These stents were patent on last cath of 03/25/14, but she underwent additional stenting: distal LAD with MiniVision 2x12 and proximal first diagonal with Promus Mike 2.5x12. The RCA was dominant and with mild plaques at the time of last cath of 03/25/14. LVEDP was mildly elevated. CAD is currently clinically stable. Last MPI of 03/22/16 showed no evidence of myocard ischemia or infarction, normal wall motion and LVEF 65%. Echo of 03/21/16 was a technically difficult study, but showed LVEF 65%, trivial to mild MR & TR, mild AoV sclerosis w/o stenosis, PASP WNL H/o osteomyelitis of the R great toe managed by Dr Alex of the [facility] in [place], [place] Normal ABIs on 02/24/16 Carotid arterial disease with history of right carotid endarterectomy. Last carotid ultrasound of 07/24/17 showed 60-79% R ICA and less than 40% L ICA stenoses Maturity onset diabetes mellitus. Hyperlipidemia being treated with atorvastatin. Chronic kidney disease, stage IV, being managed by Dr Sarmad Varghese. Chronic anemia, likely related to chronic kidney disease, managed by Dr Augustin. H/H worsening H/o urinary tract infections, being managed by her pcp History of chronic, recurrent deep venous thrombosis. History of inferior vena cava placement by Dr. Duvall in September 2011. History of left venous port placement by Dr. Duvall. The patient is a [employer] and does not wish to ever receive any blood transfusions and is not, therefore, considered an ideal candidate for oral anticoagulation Chronic leg swelling and stasis dermatitis, likely related to venous insufficiency and calcium channel donna therapy, unchanged Obesity with hypoventilation syndrome; BMI 52 Sleep apnea syndrome, being managed by Dr Fernandez Chronic back and body pain Plan: * Complex management due to multiple comorbidities that are outlined above * ECG doesn't currently show any evidence of cor ischemia or infarction * The event appears to be primarily non-cardiac and is likely due to metabolic abnormalities (due to ac renal failure and/or septicemia) * Treat with iv fluids. Treat with bicarbonate * Treat hypotension as necessary * Anemia - Pt will not accept blood or blood products d/t personal beliefs ( documented in chart and DPOA) * Prognosis guarded * Dr. Geronimo has spoken in detail on the phone with Dr Zendejas (who was present at the Code) and with Dr Velazquez (attending physician). I have spoken through video link with the EICU Head Automatic Sawyer who is currently taking care of the patient. I have spoken with patient's family (brother) Physician Assessment Physician Assessment Intubated, sedated, on mech vent Lungs: fair bilat air entry Cor: reg Ext: nonpitting edema, chronic A&R * As documented in our note above that I updated (italics) and as noted below * Complex management. Guarded prognosis. Discussed with family * Treat acidosis * iv fluids * Treat infection * Monitor labs CODIE GALLARDO Oct 16, 2017 09:30 TRELL GERONIMO MD FACP FAC CCDS Oct 16, 2017 12:40
[2017-10-16] MEDS: RT-ALBUTEROL/IPRATROPIUM 3 ML (DUONEB) VIAL INH SCH ×3 (10:17→18:22)
[2017-10-16 15:41] LABS: BASOPHILS % (AUTO) 0 % (0-10); EOSINOPHILS % (AUTO) 0 % (0-10); HEMATOCRIT 24 % (35-52); HEMOGLOBIN 7.5 G/DL (11.5-16.0); LYMPHOCYTES # (AUTO) 0.6 X 10^3 (1.0-4.0); LYMPHOCYTES % (AUTO) 7 % (12-44); MEAN CORPUSCULAR HEMOGLOBIN 28 PG (25-34); MEAN CORPUSCULAR HGB CONC 31 G/DL (32-36); MEAN CORPUSCULAR VOLUME 91 FL (80-99); MEAN PLATELET VOLUME 10.2 FL (7.4-10.4); MONOCYTES # (AUTO) 0.7 X 10^3 (0.0-1.0); MONOCYTES % (AUTO) 9 % (0-12); NEUTROPHILS % (AUTO) 85 % (42-75); PLATELET COUNT 180 10^3/uL (130-400); RED BLOOD COUNT 2.65 10^6/uL (4.35-5.85); RED CELL DISTRIBUTION WIDTH 14.8 % (10.0-14.5); WHITE BLOOD COUNT 8.3 10^3/uL (4.3-11.0)
--- NOTE | 2017-10-16 15:41 | Discharge Summary ---
Diagnosis/Chief Complaint Date of Admission Oct 15, 2017 at 15:10 Date of Discharge 10/16/17 Admission Diagnosis Admission Diagnosis 1. s/p cardiopulmonary arrest 2. Chronic renal disease, Stage 3 3. Bilateral pneumonia 4. Acute Respiratory Failure 5. Coronary artery disease of [place] vessel 6. HTN 7. Type II Diabetes Mellitus, Insulin Dependent Complicated by: diabetic retinopathy hyperglycemia with poor control, last HgbA1C 11.07 Sep 2017 diabetic foot ulcer polyneuropathy chronic kidney disease, stage IV - managed by Dr. Sarmad Varghese 8. Carotid Artery Stenosis - s/p right carotid endarterectomy, last carotid US July 2017 showed 60-79%% R ICA and <40% L ICA stenosis 9. Severe Sleep Apnea 10. Osteoarthritis, generalized 11. Aortic Valve Sclerosis 12. Renal Osteodystrophy 13. Transient Ischemic Attacks 14. History of DVT, IVC filter in place 15. Osteomyelitis of right great toe managed by Dr. Alex in [place] 16. Chronic Anemia 17. The patient is Hoahaoism and does not wish to ever receive blood or blood products 18. Hypoventilation syndrome Discharge Diagnosis 1. s/p cardiopulmonary arrest -ROSC after 1 round ACLS with 1 dose epi and intubation -REMAINS FULL CODE -dobutamine 0.5 mcg/kg/min for pressure support -remains intubated AC, FiO2 70%, Rate 20, PEEP 12, TV 440 -propofol for sedation; when sedation vacation, pt is able to follow commands -Dr. Fernandez consulted for critical care management 2. Chronic renal disease, Stage [address] Sarmad Varghese -Cr this AM 3.15 -BUN 115 -GFR 15 -discussed with Dr. Fernandez that pt would likely be better off at facility with nephrology and possibly dialysis available; will contact DPOA and discuss options for transfer and pursue if he agrees 3. Bilateral pneumonia -incidental finding on CXR for line/tube placement, again seen on film this AM -Day 2 Vanc, Trishsyn 4. Acute Respiratory Failure -see notes and vent settings under #1 5. Coronary artery disease of [place] vessel -[place] [address] Hairston, Promus 2.25x32 mm in the distal LAD and Promus 2.25 x 28 mm stent in L circumflex; these were patent on cath done -additional stenting 2013 distal LAD with MiniVision 2x12 and proximal first diagonal with Promus Mike 2.5x12. RCA dominant with mild plaques at the time of cath in 2013. -Last MPI 03/22/16 showed no ischemia or infarction, normal wall motion and LVEF 65% -echo Mar 2016 showed LVEF 65%, trivial to mitral MR and TR, Mild AoV sclerosis without stenosis, PASP WNL 6. HTN -home meds on hold at this time due to hypotension and need for pressors 7. Type II Diabetes Mellitus, Insulin Dependent Complicated by: diabetic retinopathy hyperglycemia with poor control, last HgbA1C 11.07 Sep 2017 diabetic foot ulcer polyneuropathy chronic kidney disease, stage IV - managed by Dr. Sarmad Varghese -sheila q6H with sliding scale insulin 8. Carotid Artery Stenosis - s/p right carotid endarterectomy, last carotid US July 2017 showed 60-79%% R ICA and <40% L ICA stenosis 9. Severe Sleep Apnea 10. Osteoarthritis, generalized 11. Aortic Valve Sclerosis 12. Renal Osteodystrophy 13. Transient Ischemic Attacks 14. History of DVT, IVC filter in place 15. Osteomyelitis of right great toe managed by Dr. Alex in [place] 16. Chronic Anemia -Hgb this AM 7.5 -pt's family is aware; enforce that she does not want blood or blood products , even if it could mean ending her life; patient has paperwork in place stating the same 17. The patient is Hoahaoism and does not wish to ever receive blood or blood products 18. Hypoventilation syndrome Condition: Fair Prognosis: Fair Dispo: Will transfer to ICU at [facility] in [place], where they have critical care services as well as nephrology available. The patient has been accepted for transfer. We will recheck her electrolytes and transfer by ground with ACLS crew. CODE STATUS: FULL CODE Chief Complaint/HPI Chief Complaint/HPI 67-year-old female who is currently in hospital on rehabilitation floor was noted to have slumped down in chair this afternoon after using the bathroom. At that time she was not responding to questions and ultimately it was determined that she wasn't breathing very well. Patient was taken to her bed where it was noted she had no pulse and immediately a CODE BLUE was called for. Patient has known coronary disease as well as known renal disease. 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 Most recently she had been having issues with her creatinine as well as BUN. According to the nurse today patient did not complain of any chest pain. She does have shortness of breath pretty much all the time but there was no increased level of dyspnea. Discharge Summary-Simple/Stand Procedures Intubation - Dr. Zendejas Left Subclavian CVL - Dr. Vela Consultations ED Physician - Cristiana, General Surgery - Mirian, Critical Care Management - Rebecca Discharge Physical Examination Allergies: Coded Allergies: Bacitracin Zinc (Unverified Allergy, Unknown, 07/11/17) Penicillins (Unverified Allergy, Unknown, HAS RECEIVED ROCEPHIN DURING PREVIOUS ADMIT, 07/11/17) bacitracin (Unverified Allergy, Unknown, 07/11/17) colistimethate sodium (Unverified Allergy, Unknown, 07/11/17) gramicidin D (Unverified Allergy, Unknown, 07/11/17) neomycin sulfate (Unverified Allergy, Unknown, 07/11/17) polymyxin B (Unverified Allergy, Unknown, 07/11/17) polymyxin B sulfate (Unverified Allergy, Unknown, 07/11/17) pramoxine HCl (Unverified Allergy, Unknown, 07/11/17) Vitals & I&Os Vital Sign - Last 12Hours Date Time Temp Pulse Resp B/P (MAP) Pulse Ox O2 Delivery O2 Flow Rate FiO2 10/16/17 14:18 97.4 57 22 96/77 95 Mechanical Ventilator 70.00 10/16/17 14:18 70 Intake and Output 10/16/17 00:00 Intake Total 3300 ml Output Total 450 ml Balance 2850 ml General Appearance: No Acute Distress, Other (follows commands when sedation vacation) HEENT: Atraumatic, EOMI, Mucous Memb Moist/[place] Respiratory: Other (diffuse coarseness bilaterally, diminished in bases) Cardiovascular: Regular Rate, Normal S1, Normal S2 Abdominal: Normal Bowel Sounds, Soft, No Tenderness, No Hepatosplenomegaly Extremities: No Clubbing, No Cyanosis, Other (significant generalized edema) Skin: No Rashes, No Significant Lesion Neuro: Normal Tone, Sensation Intact Psych/Mental Status: Other (sedation for ventilation) Hospital Course See final discharge diagnosis. Labs Laboratory Tests Test 10/15/17 15:12 10/15/17 15:15 10/15/17 15:32 10/15/17 15:40 Range/Units White Blood Count 10.2 4.3-11.0 10^3/uL Red Blood Count 2.95 L 4.35-5.85 10^6/uL Hemoglobin 8.6 L 11.5-16.0 G/DL Hematocrit 27 L 35-52 % Mean Corpuscular Volume 93 80-99 FL Mean Corpuscular Hemoglobin 29 25-34 PG Mean Corpuscular Hemoglobin Concent 31 L 32-36 G/DL Red Cell Distribution Width 14.7 H 10.0-14.5 % Platelet Count 204 130-400 10^3/uL Mean Platelet Volume 10.4 7.4-10.4 FL Neutrophils (%) (Auto) 69 42-75 % Lymphocytes (%) (Auto) 22 12-44 % Monocytes (%) (Auto) 9 0-12 % Eosinophils (%) (Auto) 0 0-10 % Basophils (%) (Auto) 0 0-10 % Neutrophils # (Auto) 6.8 1.8-7.8 X 10^3 Lymphocytes # (Auto) 2.2 1.0-4.0 X 10^3 Monocytes # (Auto) 0.8 0.0-1.0 X 10^3 Eosinophils # (Auto) 0.0 0.0-0.3 10^3/uL Basophils # (Auto) 0.0 0.0-0.1 10^3/uL Sodium Level 135 135-145 MMOL/L Potassium Level 5.2 H 3.6-5.0 MMOL/L Chloride Level 105 98-107 MMOL/L Carbon Dioxide Level 13 L 21-32 MMOL/L Anion Gap 17 H 5-14 MMOL/L Blood Urea Nitrogen 103 *H 7-18 MG/DL Creatinine 3.37 H 0.60-1.30 MG/DL Estimat Glomerular Filtration Rate 14 BUN/Creatinine Ratio 31 Glucose Level 217 H 70-105 MG/DL Lactic Acid Level 3.46 *H 0.50-2.00 MMOL/L Calcium Level 9.0 8.5-10.1 MG/DL Magnesium Level 2.2 1.8-2.4 MG/DL Total Bilirubin 0.3 0.1-1.0 MG/DL Aspartate Amino Transf (AST/SGOT) 36 H 5-34 U/L Alanine Aminotransferase (ALT/SGPT) 35 0-55 U/L Alkaline Phosphatase 102 40-136 U/L Troponin I < 0.30 <0.30 NG/ML B-Type Natriuretic Peptide 972.3 H <100.0 PG/ML Total Protein 7.2 6.4-8.2 GM/DL Albumin 3.4 3.2-4.5 GM/DL Triglycerides Level 65 <150 MG/DL Blood Gas Puncture Site LT RADIAL Blood Gas Patient Temperature 96.9 Arterial Blood pH 7.10 *L 7.37-7.43 Arterial Blood Partial Pressure CO2 52 H 35-45 MMHG Arterial Blood Partial Pressure O2 87 79-93 MMHG Arterial Blood HCO3 16 *L 23-27 MMOL/L Arterial Blood Total CO2 17.7 L 21.0-31.0 MMOL/L Arterial Blood Oxygen Saturation 94 94-100 % Arterial Blood Base Excess -12.1 L -2.5-2.5 MMOL/L Jmaes Test YES-POS Blood Gas Ventilator Setting NO Blood Gas Inspired Oxygen 12 Glucometer 217 H 70-110 MG/DL Urine Color YELLOW Urine Clarity VERY CLOUDY H Urine pH 5 5-9 Urine Specific [place] 1.025 H 1.016-1.022 Urine Protein 4+ NEGATIVE Urine Glucose (UA) 1+ H NEGATIVE Urine Ketones NEGATIVE NEGATIVE Urine Nitrite NEGATIVE NEGATIVE Urine Bilirubin NEGATIVE NEGATIVE Urine Urobilinogen NORMAL NORMAL MG/DL Urine Leukocyte Esterase 2+ H NEGATIVE Urine RBC (Auto) 3+ H NEGATIVE Urine RBC 10-25 H /HPF Urine WBC 50-100 H /HPF Urine Squamous Epithelial Cells 0-2 /HPF Urine Renal Epithelial Cells NONE /HPF Urine Crystals PRESENT H /LPF Urine Amorphous Sediment MOD VINICIUS URATES H /LPF Urine Bacteria MODERATE H /HPF Urine Casts PRESENT /LPF Urine Hyaline Casts 2-5 H /LPF Urine Granular Casts 2-5 H /LPF Urine Mucus NEGATIVE /LPF Urine Culture Indicated YES Test 10/15/17 17:51 10/15/17 18:12 10/15/17 18:37 10/15/17 23:42 Range/Units Blood Gas Puncture Site RT RAD RT RAD Blood Gas Patient Temperature 97.1 97.3 Arterial Blood pH 7.27 *L 7.25 *L 7.37-7.43 Arterial Blood Partial Pressure CO2 41 43 35-45 MMHG Arterial Blood Partial Pressure O2 148 H 164 H 79-93 MMHG Arterial Blood HCO3 18 L 18 L 23-27 MMOL/L Arterial Blood Total CO2 19.4 L 19.7 L 21.0-31.0 MMOL/L Arterial Blood Oxygen Saturation 99 99 94-100 % Arterial Blood Base Excess -7.8 L -7.7 L -2.5-2.5 MMOL/L James Test YES-POS YES-POS Blood Gas Ventilator Setting YES YES Blood Gas Inspired Oxygen 100 100% Lactic Acid Level 0.61 0.50-2.00 MMOL/L Glucometer 180 H 70-110 MG/DL Test 10/16/17 03:12 10/16/17 03:25 10/16/17 09:24 10/16/17 10:54 Range/Units Blood Gas Puncture Site R RAD Blood Gas Patient Temperature 96.2 Arterial Blood pH 7.29 *L 7.37-7.43 Arterial Blood Partial Pressure CO2 39 35-45 MMHG Arterial Blood Partial Pressure O2 94 H 79-93 MMHG Arterial Blood HCO3 19 L 23-27 MMOL/L Arterial Blood Total CO2 19.9 L 21.0-31.0 MMOL/L Arterial Blood Oxygen Saturation 98 94-100 % Arterial Blood Base Excess -7.0 L -2.5-2.5 MMOL/L James Test YES-POS Blood Gas Ventilator Setting YES Blood Gas Inspired Oxygen 70% White Blood Count 7.3 4.3-11.0 10^3/uL Red Blood Count 2.58 L 4.35-5.85 10^6/uL Hemoglobin 7.5 L 11.5-16.0 G/DL Hematocrit 24 L 35-52 % Mean Corpuscular Volume 92 80-99 FL Mean Corpuscular Hemoglobin 29 25-34 PG Mean Corpuscular Hemoglobin Concent 32 32-36 G/DL Red Cell Distribution Width 14.5 10.0-14.5 % Platelet Count 166 130-400 10^3/uL Mean Platelet Volume 9.5 7.4-10.4 FL Neutrophils (%) (Auto) 80 H 42-75 % Lymphocytes (%) (Auto) 11 L 12-44 % Monocytes (%) (Auto) 9 0-12 % Eosinophils (%) (Auto) 0 0-10 % Basophils (%) (Auto) 0 0-10 % Neutrophils # (Auto) 5.8 1.8-7.8 X 10^3 Lymphocytes # (Auto) 0.8 L 1.0-4.0 X 10^3 Monocytes # (Auto) 0.7 0.0-1.0 X 10^3 Eosinophils # (Auto) 0.0 0.0-0.3 10^3/uL Basophils # (Auto) 0.0 0.0-0.1 10^3/uL Prothrombin Time 15.1 H 12.2-14.7 SEC INR Comment 1.2 0.8-1.4 Sodium Level 134 L 135-145 MMOL/L Potassium Level 5.0 3.6-5.0 MMOL/L Chloride Level 106 98-107 MMOL/L Carbon Dioxide Level 17 L 21-32 MMOL/L Anion Gap 11 5-14 MMOL/L Blood Urea Nitrogen 104 *H 7-18 MG/DL Creatinine 3.16 H 0.60-1.30 MG/DL Estimat Glomerular Filtration Rate 15 BUN/Creatinine Ratio 33 Glucose Level 191 H 70-105 MG/DL Calcium Level 8.4 L 8.5-10.1 MG/DL Phosphorus Level 5.9 H 2.3-4.7 MG/DL Magnesium Level 2.1 1.8-2.4 MG/DL Total Bilirubin 0.4 0.1-1.0 MG/DL Aspartate Amino Transf (AST/SGOT) 28 5-34 U/L Alanine Aminotransferase (ALT/SGPT) 31 0-55 U/L Alkaline Phosphatase 95 40-136 U/L Total Protein 5.9 L 6.4-8.2 GM/DL Albumin 2.9 L 3.2-4.5 GM/DL Glucometer 242 H 237 H 70-110 MG/DL Test 10/16/17 15:32 10/16/17 15:41 Range/Units White Blood Count 8.3 4.3-11.0 10^3/uL Red Blood Count 2.65 L 4.35-5.85 10^6/uL Hemoglobin 7.5 L 11.5-16.0 G/DL Hematocrit 24 L 35-52 % Mean Corpuscular Volume 91 80-99 FL Mean Corpuscular Hemoglobin 28 25-34 PG Mean Corpuscular Hemoglobin Concent 31 L 32-36 G/DL Red Cell Distribution Width 14.8 H 10.0-14.5 % Platelet Count 180 130-400 10^3/uL Mean Platelet Volume 10.2 7.4-10.4 FL Neutrophils (%) (Auto) 85 H 42-75 % Lymphocytes (%) (Auto) 7 L 12-44 % Monocytes (%) (Auto) 9 0-12 % Eosinophils (%) (Auto) 0 0-10 % Basophils (%) (Auto) 0 0-10 % Neutrophils # (Auto) 7.0 1.8-7.8 X 10^3 Lymphocytes # (Auto) 0.6 L 1.0-4.0 X 10^3 Monocytes # (Auto) 0.7 0.0-1.0 X 10^3 Eosinophils # (Auto) 0.0 0.0-0.3 10^3/uL Basophils # (Auto) 0.0 0.0-0.1 10^3/uL Sodium Level 135 135-145 MMOL/L Potassium Level 4.8 3.6-5.0 MMOL/L Chloride Level 105 98-107 MMOL/L Carbon Dioxide Level 18 L 21-32 MMOL/L Anion Gap 12 5-14 MMOL/L Blood Urea Nitrogen 99 H 7-18 MG/DL Creatinine 3.09 H 0.60-1.30 MG/DL Estimat Glomerular Filtration Rate 15 BUN/Creatinine Ratio 32 Glucose Level 225 H 70-105 MG/DL Calcium Level 8.4 L 8.5-10.1 MG/DL Phosphorus Level 5.7 H 2.3-4.7 MG/DL Magnesium Level 2.0 1.8-2.4 MG/DL Glucometer 244 H 70-110 MG/DL Radiology Reviewed NAME: CEDRICK ALBERTS [facility] REC#: [id number] PT STATUS: DIS IN : 1950 PHYSICIAN: RUIZ DOTSON MD ADMIT DATE: 09/30/17 Draft Date of Exam:10/15/17 CHEST 1 VIEW, AP/PA ONLY INDICATION: Post intubation. EXAMINATION: Portal supine AP chest at 3:17 p.m. FINDINGS: The cardiomegaly noted on the prior exam of 10/03/2017 is again evident and no different. In the interval since the prior study an alveolar/interstitial infiltrate has developed in the right perihilar region and right lung base. Most likely this is secondary to pneumonia/atelectasis. There is also a vague area of slightly increased density in the right upper lung and this too may be related to pneumonia/atelectasis. A small amount of abnormal density has developed at the left hilum as well. The left lung is otherwise generally clear. The mediastinum is not widened. The osseous structures are intact. In the interval since the prior study, the patient has been intubated. The ET tube overlies the distal tracheal air shadow, roughly 2 cm cephalad to the monika. It could be retracted 1 cm. There is also now an NG line in place. The tip of the NG line is not visualized but the line is seen overlying the left upper quadrant. The central venous catheter on the right, noted previously, is unchanged in position. IMPRESSION: 1. The appearance of the chest has worsened since the prior study as bilateral pneumonia/atelectasis has developed. There is greater involvement on the right. A followup study would be recommended for continued evaluation. 2. The patient has been intubated. The ET tube could be retracted approximately 1 cm. 3. These results will be discussed with Dr. Zendejas in the ER at the time of dictation. Dictated on workstation # [id number] Dict: 10/15/17 1543 Trans: 10/15/17 1559 [facility] [id number] Interpreted by: EMELY ANDERSON MD Electronically signed by: Discussion & Recommendations Risks and benefits of transfer have been reviewed with pt's brother Akira Alberts , the pt's DPOA, who agrees with transfer of patient and requests [facility] in [place]. Discharge Condition at discharge Stable Instructions to patient/family Please see electronic discharge instructions given to patient. Discharge Medications Reviewed and agree with Discharge Medication list on patient's Discharge Instruction sheet Clinical Quality Measures DVT/VTE Risk/Contraindication: Risk Factor Score Per Nursin RFS Level Per Nursing on Admit: 4+=Very High Copy Copies To 1: [facility]BRUNO RENAE DO Oct 16, 2017 15:41
[2017-10-16 16:01] LABS: CALCIUM 8.4 MG/DL (8.5-10.1); CREATININE SERUM 3.09 MG/DL (0.60-1.30); PHOSPHORUS 5.7 MG/DL (2.3-4.7); POTASSIUM 4.8 MMOL/L (3.6-5.0)
[2017-10-16] MEDS ORDERED: TROUGH ORDER-PHARMACY XX NR (17:00)
[2017-10-16] MEDS ORDERED: VANCOMYCIN INJECTION 2,000 MG in NS IV 500 ML 500 ML IV SCH (18:00)
[2017-10-16] MEDS ORDERED: VANCOMYCIN 1 GM/NS 250 ML IVPB IV SCH ×2 (18:00)
[2017-10-16] MEDS ORDERED: CEFEPIME INJECTION 2,000 MG in NS (IVPB) 50 ML IV SCH (21:00)
[2017-10-17] MEDS ORDERED: TROUGH ORDER-PHARMACY XX NR (17:00)
[2017-10-17] MEDS ORDERED: VANCOMYCIN 1 GM/NS 250 ML IVPB IV SCH ×2 (18:30)
== END 2017-10-16 20:36 | disposition short-term general hospital (02) | DRG 682 ==
LOC: ICU 15:10 → UNDODISIN 15:15
PROVIDERS: ADMIT Family Medicine; ATTEND Family Medicine
PROC: 5A1945Z Respiratory Ventilation, 24-96 Consecutive Hours (ICD-10-PCS; principal; 2017-10-15)
DX: N17.9 Acute kidney failure, unspecified (principal); I46.8 Cardiac arrest due to other underlying condition; J96.00 Acute respiratory failure, unspecified whether with hypoxia or hypercapnia; J18.9 Pneumonia, unspecified organism; J44.0 Chronic obstructive pulmonary disease with (acute) lower respiratory infection; E87.2 Acidosis; E66.2 Morbid (severe) obesity with alveolar hypoventilation; Z68.44 Body mass index [BMI] 60.0-69.9, adult; M86.9 Osteomyelitis, unspecified; E87.5 Hyperkalemia; I12.9 Hypertensive chronic kidney disease with stage 1 through stage 4 chronic kidney disease, or unspecified chronic kidney disease; N18.4 Chronic kidney disease, stage 4 (severe); D63.1 Anemia in chronic kidney disease; I25.10 Atherosclerotic heart disease of native coronary artery without angina pectoris; E11.22 Type 2 diabetes mellitus with diabetic chronic kidney disease; D50.9 Iron deficiency anemia, unspecified; N25.0 Renal osteodystrophy; I65.23 Occlusion and stenosis of bilateral carotid arteries; E78.5 Hyperlipidemia, unspecified; R00.1 Bradycardia, unspecified; E11.319 Type 2 diabetes mellitus with unspecified 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 edema; E11.42 Type 2 diabetes mellitus with diabetic polyneuropathy; M19.91 Primary osteoarthritis, unspecified site; I35.8 Other nonrheumatic aortic valve disorders; Z79.4 Long term (current) use of insulin; Z86.73 Personal history of transient ischemic attack (TIA), and cerebral infarction without residual deficits; Z86.718 Personal history of other venous thrombosis and embolism; Z99.81 Dependence on supplemental oxygen; Z95.5 Presence of coronary angioplasty implant and graft
CPT/HCPCS: 36415; 36600; 71045; 74018; 80048; 80053; 80202; 81000; 82330; 82805; 82962; 83605; 83735; 83880; 84100; 84478; 84484; 85025; 85027; 85610; 86850; 86900; 86901; 86920; 87040; 87070; 87077; 87081; 87088; 87186; 87205; 93005; 94003; 94640; 94799

== ENCOUNTER 2017-11-06 19:45 | Inpatient (IN) | payer MEDICARE, MEDICAID ==
[~2017-11-06] VITALS: Ht 157.5 cm; Wt 149.3 kg
[~2017-11-06 19:45] MED LIST changes: -ROSU20TA30 PO; +ROSU20TA31 PO
[2017-11-06] MEDS ORDERED: NS IV 1000 ML 1,000 ML IV SCH (20:02)
--- NOTE | 2017-11-06 20:08 | ED GI ---
General Chief Complaint: Rect Problems Stated Complaint: RECTAL BLEEDING Nursing Triage Note: PT BROUGHT IN BY EMS WITH COMPLAINT OF RECTAL BLEED. Sepsis Screen: No Definite Risk Source of Information: Patient, EMS, Senior Living Records Exam Limitations: No Limitations History of Present Illness Date Seen by Provider: Nov 06, 2017 Time Seen by Provider: 19:52 Initial Comments Patient presents to the ER from the long term by EMS with a chief complaint that when staff was getting her up from going to the bathroom she had a bright red bloody bowel movement. She says she had a little bit of blood from her rectum earlier in the week. She thought it was from hemorrhoids as she has a history of hemorrhoids. She's not having any chest pain, shortness of breath, abdominal pain. She has some chronic low back pain and left shoulder pain however. She's having no nausea vomiting or decreased appetite but she says is hard to get something drink sometimes such does not drink as much water she thinks she should. She is on torsemide as well as Plavix. She does have a history of anemia and she is on Procrit shot from Dr. Caban. She says in the past she's had a fissure and she's had a colonoscopy but does not recall any pathology from that. Allergies and Home Medications Allergies Coded Allergies: Bacitracin Zinc (Unverified Allergy, Unknown, 07/11/17) Penicillins (Unverified Allergy, Unknown, HAS RECEIVED ROCEPHIN DURING PREVIOUS ADMIT, 07/11/17) bacitracin (Unverified Allergy, Unknown, 07/11/17) colistimethate sodium (Unverified Allergy, Unknown, 07/11/17) gramicidin D (Unverified Allergy, Unknown, 07/11/17) neomycin sulfate (Unverified Allergy, Unknown, 07/11/17) polymyxin B (Unverified Allergy, Unknown, 07/11/17) polymyxin B sulfate (Unverified Allergy, Unknown, 07/11/17) pramoxine HCl (Unverified Allergy, Unknown, 07/11/17) Home Medications Arginine 2,000 Mg Powd.pack, 2,000 MG PO TID, (Reported) Aspirin 81 Mg Tablet.dr, 81 MG PO HS, (Reported) Brinzolamide/Brimonidine Tart 8 Ml Drops.susp, 1 DROPS OU BID, (Reported) Calcium Carbonate/Vitamin D3 1 Each Tablet, 1 TAB PO TID, (Reported) Carboxymethylcellulos/Glycerin 15 Ml Drops, 15 ML OP Q4H PRN for DRY EYES, ( Reported) Cholecalciferol (Vitamin D3) 5,000 Unit Capsule, 5,000 UNITS PO HS, (Reported) Clopidogrel Bisulfate 75 Mg Tablet, 75 MG PO HS, (Reported) Darbepoetin Eliel in Polysorbat 10 Mcg/0.4 Ml Syringe, 20 MCG IJ every 2 weeks, ( Reported) Diphenoxylate HCl/Atropine 1 Each Tablet, 1 TAB PO QID PRN for DIARRHEA, ( Reported) Flaxseed Oil 1,000 Mg Capsule, 1,000 MG PO DAILY, (Reported) Gabapentin 100 Mg Capsule, 100 MG PO TID, (Reported) Insulin Aspart 300 Units/3 Ml Solution, 9 UNITS SC AC, (Reported) Insulin Detemir 100 Unit/1 Ml Insuln.pen, 20 UNITS SC BID, (Reported) Losartan Potassium 100 Mg Tablet, 100 MG PO HS, (Reported) Magnesium Oxide 250 Mg Tablet, 250 MG PO HS, (Reported) Metoprolol Succinate 50 Mg Tab.er.24h, 50 MG PO DAILY, (Reported) Metronidazole 500 Mg Tablet, 500 MG PO TID, (Reported) Multivitamin 1 Each Tablet, 1 TAB PO HS, (Reported) [place]-3/Dha/Epa/Fish Oil 1 Each Capsule, 1,000 MG PO TID, (Reported) Rosuvastatin Calcium 20 Mg Tablet, 20 MG PO HS, (Reported) Torsemide 100 Mg Tablet, 100 MG PO DAILY PRN for swelling, (Reported) Patient Home Medication List Home Medication List Reviewed: Yes Review of Systems Constitutional: No chills, No diaphoresis EENTM: No Blurred Vision, No Double Vision Respiratory: Denies Cough, Denies Shortness of Air Cardiovascular: Denies Chest Pain, Denies Lightheadedness Gastrointestinal: Denies Constipated, Denies Diarrhea, Denies Nausea Genitourinary: Denies Discharge, Denies Drainage Musculoskeletal: No back pain, No joint pain Skin: No pruritus, No rash Psychiatric/Neurological: Denies Headache, Denies Numbness Past Rmuicdg-Ywvwcg-Fehyjv Hx Patient Social History Alcohol Use: Denies Use Recreational Drug Use: No Smoking Status: Current Everyday Smoker Type Used: Cigarettes Recent Foreign Travel: No Contact w/Someone Who Travel: No Recent Infectious Disease Expo: No Recent Hopitalizations: No Immunizations Up To Date Tetanus Booster (TDap): Unknown PED Vaccines UTD: No Date of Pneumonia Vaccine: Feb 20, 2017 Date of Influenza Vaccine: Feb 06, 2017 Seasonal Allergies Seasonal Allergies: Yes Past Medical History Surgeries: Yes (FISSURE SX AFTER HYSTERECTOMY, Rt. 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 LEFT FOOT) Arthritis, Chronic Back Pain, Fractures Endocrine: Yes Diabetes, Insulin dep HEENT: Yes Cataract Loss of Vision: Denies Hearing Impairment: Denies Cancer: No Psychosocial: No Integumentary: No Blood Disorders: Yes (Chronic ANEMIA- epo shots) Adverse Reaction/Blood Tranf: No (N/A) Family Medical History Alzheimer's disease 19 MOTHER Cardiovascular disease Cataract 19 MOTHER Cataracts Congestive heart failure 19 FATHER Dementia 19 MOTHER Dementia 19 MOTHER Diabetes mellitus Family history: Allergy 19 FATHER 19 MOTHER Family history: Alzheimer's disease 19 MOTHER Family history: Cardiovascular disease 19 MOTHER Family history: Diabetes mellitus G8 BROTHER G8 BROTHER G8 SISTER Family history: Hypertension 19 FATHER Hearing loss G8 BROTHER Heart disease 19 FATHER G8 BROTHER G8 BROTHER G8 SISTER Hypertension 19 FATHER 19 MOTHER G8 BROTHER Infertile 19 FATHER 19 MOTHER G8 BROTHER G8 BROTHER G8 SISTER Myocardial infarction 19 FATHER Myocardial infarction 19 FATHER Psychotic disorder 19 FATHER Severe allergy G8 BROTHER G8 BROTHER Stroke 19 FATHER No Family History of: AIDS Abdominal aortic aneurysm Abdominal aortic aneurysm Gigi's disease Gigi's disease Alcoholism Alcoholism Aphasia Aphasia Arthritis Asthma Cancer Cancer of colon Cancer of mouth Chest pain Colon cancer Completed stroke Congenital disease Congenital heart disease Congenital heart disease Coronary thrombosis Cystic fibrosis Cystic fibrosis Dysphagia Family history: Arthritis Family history: Asthma Family history: Breast disease Family history: Coronary thrombosis Family history: Gastrointestinal disease Family history: Glaucoma Family history: Osteoporosis Family history: Thyroid disorder Fibrocystic disease of breast Gastroenteritis Glaucoma Headache Headache disorder Hereditary disease History of - anemia History of - disorder History of - respiratory disease History of drug abuse Human immunodeficiency virus (HIV) seropositivity Hypercholesterolemia Hypercholesterolemia Kidney disease Malignant neoplasm of lung Neoplasm Not obtainable due to adoption Osteoporosis Parkinson's disease Parkinson's disease Prostate cancer Psychosocial problem Seizure disorder Seizure disorder Thyroid disease Tuberculosis Tuberculosis Visual disorder Visual impairment Heart Disease, Diabetes, Hypertension Physical Exam Vital Signs Vital Signs - First Documented 11/06/17 19:47 Pulse 101 Resp 20 B/P (MAP) 195/104 (134) Pulse Ox 96 O2 Delivery Nasal Cannula O2 Flow Rate 4.00 Capillary Refill : Less Than 3 Seconds General Appearance: WD/WN, no apparent distress HEENT: PERRL/EOMI, pharynx normal Neck: non-tender, full range of motion Respiratory: lungs clear, normal breath sounds, no respiratory distress, no accessory muscle use Cardiovascular: normal peripheral pulses, regular rate, rhythm, no edema Gastrointestinal: normal bowel sounds, non tender, soft Extremities: normal range of motion, normal inspection, normal capillary refill Neurologic/Psychiatric: alert, oriented x 3 Skin: normal color Procedures/Interventions Date of ETT Placement: Oct 15, 2017 Time of ETT Placement: 1505 Progress/Results/Core Measures Results/Orders Lab Results Laboratory Tests Test 11/06/17 20:07 Range/Units White Blood Count 8.7 4.3-11.0 10^3/uL Red Blood Count 3.03 L 4.35-5.85 10^6/uL Hemoglobin 8.6 L 11.5-16.0 G/DL Hematocrit 29 L 35-52 % Mean Corpuscular Volume 96 80-99 FL Mean Corpuscular Hemoglobin 28 25-34 PG Mean Corpuscular Hemoglobin Concent 30 L 32-36 G/DL Red Cell Distribution Width 15.0 H 10.0-14.5 % Platelet Count 271 130-400 10^3/uL Mean Platelet Volume 9.9 7.4-10.4 FL Neutrophils (%) (Auto) 75 42-75 % Lymphocytes (%) (Auto) 15 12-44 % Monocytes (%) (Auto) 9 0-12 % Eosinophils (%) (Auto) 1 0-10 % Basophils (%) (Auto) 0 0-10 % Neutrophils # (Auto) 6.5 1.8-7.8 X 10^3 Lymphocytes # (Auto) 1.3 1.0-4.0 X 10^3 Monocytes # (Auto) 0.7 0.0-1.0 X 10^3 Eosinophils # (Auto) 0.1 0.0-0.3 10^3/uL Basophils # (Auto) 0.0 0.0-0.1 10^3/uL Sodium Level 143 135-145 MMOL/L Potassium Level 4.3 3.6-5.0 MMOL/L Chloride Level 102 98-107 MMOL/L Carbon Dioxide Level 30 21-32 MMOL/L Anion Gap 11 5-14 MMOL/L Blood Urea Nitrogen 65 H 7-18 MG/DL Creatinine 2.22 H 0.60-1.30 MG/DL Estimat Glomerular Filtration Rate 22 BUN/Creatinine Ratio 29 Glucose Level 413 *H 70-105 MG/DL Calcium Level 9.1 8.5-10.1 MG/DL Total Bilirubin 0.5 0.1-1.0 MG/DL Aspartate Amino Transf (AST/SGOT) 27 5-34 U/L Alanine Aminotransferase (ALT/SGPT) 173 H 0-55 U/L Alkaline Phosphatase 177 H 40-136 U/L Total Protein 6.6 6.4-8.2 GM/DL Albumin 2.7 L 3.2-4.5 GM/DL My Orders Orders - ELMA ALVAREZ Cbc With Automated Diff (11/06/17 20:02) Comprehensive Metabolic Panel (11/06/17 20:02) Ua Culture If Indicated (11/06/17 20:02) Chest 1 View, Ap/Pa Only (11/06/17 20:02) Saline Lock/Iv-Start (11/06/17 20:02) Ns Iv 1000 Ml (Sodium Chloride 0.9%) (11/06/17 20:02) Pantoprazole Injection (Protonix Injecti (11/06/17 20:15) Vital Signs: Special (Order) (11/06/17 20:24) Consent-Obtain Consent For (11/06/17 20:24) Monitor S/S Transfusion Reacti (11/06/17 20:24) Ns Iv 500 Ml (Sodium Chloride 0.9%) (11/06/17 20:24) Ct Abdomen/Pelvis Wo (11/06/17 20:43) Insulin (Regular) Human (Humulin R (Per (11/06/17 21:00) Benzonatate Capsule (Tessalon Perles) (11/06/17 22:45) Catheter(Urinary) Insert & Ass 03,15 (11/06/17 22:36) Medications Given in ED Current Medications Medications Dose Ordered Sig/Solomon Route Start Time Stop Time Status Last Admin Dose Admin Insulin Human Regular 10 unit ONCE ONCE SC 11/06/17 21:00 11/06/17 21:01 DC 11/06/17 21:15 10 UNIT Pantoprazole 40 mg ONCE ONCE IV 11/06/17 20:15 11/06/17 20:16 DC 11/06/17 20:16 40 MG Vital Signs/I&O 11/06/17 19:47 Pulse 101 Resp 20 B/P (MAP) 195/104 (134) Pulse Ox 96 O2 Delivery Nasal Cannula O2 Flow Rate 4.00 Blood Pressure Mean: 134 Progress Progress Note #1: Time: 20:12 Progress Note October 2017 patient experienced a bradycardic cardiac arrest likely secondary to metabolic electrolyte abnormalities and hypoxia. She has a history of coronary stent [address] Hairston. Echocardiogram 2016 showed EF of 65%. With a benign abdominal exam on reluctant to do a CT scan of her abdomen however she does have a history of clinically significant anemia. We'll be pillai to rule out any kind of early surgical emergency. Progress Note #2: Time: 20:53 Progress Note Patient has declined blood products as she says she is a [employer]. Progress Note #3: Time: 22:44 Progress Note Prolonged discussion with the patient and her brother about the possibility of comfort cares versus what would be entailed if we pursue life-prolonging management. The technetium scan is off the table because it requires donor blood. A total colectomy especially without blood products would be very difficult for this patient to survive and recover from. She would like to see with the hemoglobin is tomorrow and talk to the surgeon. Diagnostic Imaging Diagonstic Imaging: CT Plain Films/CT/US/NM/MRI: abdomen, pelvis Comments VIA [facility], [facility]. [place], [place] NAME: CEDRICK ALBERTS [facility] REC#: [id number] PT STATUS: REG ER : 1950 PHYSICIAN: ELMA ALVAREZ MD ADMIT DATE: 11/06/17/ER Draft Date of Exam:11/06/17 CT ABDOMEN/PELVIS WO PROCEDURE: CT abdomen and pelvis without contrast. TECHNIQUE: Multiple contiguous axial images were obtained through the abdomen and pelvis without the use of intravenous contrast. INDICATION: Abdominal pain. COMPARISON: 07/10/2013 FINDINGS: Evaluation of the abdominal viscera is mildly limited without contrast. Lower chest: Trace bilateral pleural effusions. Patchy consolidations within the bilateral lower lobes are subjacent to the effusions. Peritoneum: No free intraperitoneal air or fluid. Liver and biliary system: Unenhanced liver is normal. Cholecystectomy. Spleen and Pancreas: Spleen is normal. Unenhanced pancreas is grossly normal. Adrenals: Normal. tract: No renal or ureteral calculi. No obstructive uropathy. Hysterectomy. No adnexal mass. GI tract: Stomach is decompressed. No bowel obstruction. No pericolonic inflammatory changes. Normal appendix. Vasculature and Lymph nodes: Normal caliber aorta with moderate atherosclerotic plaquing. IVC filter is appropriately positioned in an infrarenal position. No abdominal or pelvic lymphadenopathy. Musculoskeletal: No concerning osseous lesion. IMPRESSION: 1. No urinary tract calculi or obstructive uropathy. 2. No bowel obstruction, colitis or diverticulitis. 3. Trace bilateral pleural effusions. Patchy airspace consolidations associated with effusions could be due to atelectasis or pneumonia, depending on clinical presentation. Dictated on workstation # [id number] Dict: 11/06/172121 Trans: 11/06/17 213 [facility] [id number] Interpreted by: SHIMA HALE MD Electronically signed by: Reviewed: Reviewed by Sc Diagonstic Imaging: Xray Plain Films/CT/US/NM/MRI: chest (1v) Comments VIA [place], [place] NAME: CEDRICK ALBETRS [facility] REC#: [id number] PT STATUS: REG ER : 1950 PHYSICIAN: ELMA ALVAREZ MD ADMIT DATE: 11/06/17/ER Draft Date of Exam:11/06/17 CHEST 1 VIEW, AP/PA ONLY INDICATION: Productive cough. COMPARISON: 10/16/2017. FINDINGS: Heart is enlarged. Bandlike opacities are present in the bilateral perihilar regions likely due to subsegmental atelectasis. Otherwise, visualized lungs are clear. Please note the posterior lower lobes are poorly evaluated by portable radiography. No pleural effusion or pneumothorax. Stable right IJ Port-A-Cath. IMPRESSION: 1. Bilateral perihilar subsegmental atelectasis. No imaging features of pneumonia. Dictated on workstation # [id number] Dict: 11/06/172125 Trans: 11/06/172128 [facility] [id number] Interpreted by: SHIMA HALE MD Electronically signed by: Reviewed: Reviewed by Me Consults : Consulting Physician: IZZY CHOPRA DO Consults Notes Discussed case and he recommends that the technetium scan as well as clear liquid diet to be done and put her up and watch her hemoglobin drops and he can consider a scope versus surgery if the technetium scan which shows where the bleeding is coming from. Departure Communication (Admissions) Time/Spoke to Admitting Phy: 22:43 Dr. Kwok; she received patient. She will recheck labs in the morning. She agrees with fluids and incentive spirometry. Time/Spoke to Consulting Phy: 22:30 Loree clear liquid diet and follow the hemoglobin. Impression Primary Impression: GI bleeding Qualified Codes: K92.2 - Gastrointestinal hemorrhage, unspecified Disposition: ADMITTED INPATIENT Condition: Stable Admissions Decision to Admit Reason: Admit from ER (General) Decision to Admit/Date: Nov 06, 2017 Time/Decision to Admit Time: 22:46 Departure-Patient Inst. Referrals: MARY FRAGOSO MD (PCP) Primary Care Physician Copy Copies To 1: CLARITZA HOLMAN TITUS J Nov 06, 2017 20:08
[2017-11-06 20:13] LABS: BASOPHILS % (AUTO) 0 % (0-10); EOSINOPHILS # (AUTO) 0.1 10^3/uL (0.0-0.3); EOSINOPHILS % (AUTO) 1 % (0-10); HEMATOCRIT 29 % (35-52); HEMOGLOBIN 8.6 G/DL (11.5-16.0); LYMPHOCYTES # (AUTO) 1.3 X 10^3 (1.0-4.0); LYMPHOCYTES % (AUTO) 15 % (12-44); MEAN CORPUSCULAR HEMOGLOBIN 28 PG (25-34); MEAN CORPUSCULAR HGB CONC 30 G/DL (32-36); MEAN CORPUSCULAR VOLUME 96 FL (80-99); MEAN PLATELET VOLUME 9.9 FL (7.4-10.4); MONOCYTES # (AUTO) 0.7 X 10^3 (0.0-1.0); MONOCYTES % (AUTO) 9 % (0-12); NEUTROPHILS # (AUTO) 6.5 X 10^3 (1.8-7.8); NEUTROPHILS % (AUTO) 75 % (42-75); PLATELET COUNT 271 10^3/uL (130-400); RED BLOOD COUNT 3.03 10^6/uL (4.35-5.85); WHITE BLOOD COUNT 8.7 10^3/uL (4.3-11.0)
[2017-11-06] MEDS ORDERED: PANTOPRAZOLE 40 MG/10 ML (PROTONIX) VIAL IV ONE (20:15)
[2017-11-06] MEDS ORDERED: NS IV 500 ML 500 ML IV SCH (20:24)
[2017-11-06 20:32] LABS: ALBUMIN 2.7 GM/DL (3.2-4.5); BILIRUBIN,TOTAL 0.5 MG/DL (0.1-1.0); CALCIUM 9.1 MG/DL (8.5-10.1); CREATININE SERUM 2.22 MG/DL (0.60-1.30); POTASSIUM 4.3 MMOL/L (3.6-5.0); TOTAL PROTEIN 6.6 GM/DL (6.4-8.2)
[2017-11-06] MEDS ORDERED: inSUlin (REGULAR) HUMAN 1 UNIT/0.01 ML (CHARGE PER UNIT) SC ONE (21:00)
--- NOTE | 2017-11-06 21:29 | Diagnostic Imaging Report ---
INDICATION: Productive cough. COMPARISON: 10/16/2017. FINDINGS: Heart is enlarged. Bandlike opacities are present in the bilateral perihilar regions likely due to subsegmental atelectasis. Otherwise, visualized lungs are clear. Please note the posterior lower lobes are poorly evaluated by portable radiography. No pleural effusion or pneumothorax. Stable right IJ Port-A-Cath. IMPRESSION: 1. Bilateral perihilar subsegmental atelectasis. No imaging features of pneumonia. Dictated by: Dictated on workstation # [id number]
--- NOTE | 2017-11-06 21:30 | Diagnostic Imaging Report ---
PROCEDURE: CT abdomen and pelvis without contrast. TECHNIQUE: Multiple contiguous axial images were obtained through the abdomen and pelvis without the use of intravenous contrast. INDICATION: Abdominal pain. COMPARISON: 07/10/2013 FINDINGS: Evaluation of the abdominal viscera is mildly limited without contrast. Lower chest: Trace bilateral pleural effusions. Patchy consolidations within the bilateral lower lobes are subjacent to the effusions. Peritoneum: No free intraperitoneal air or fluid. Liver and biliary system: Unenhanced liver is normal. Cholecystectomy. Spleen and Pancreas: Spleen is normal. Unenhanced pancreas is grossly normal. Adrenals: Normal. tract: No renal or ureteral calculi. No obstructive uropathy. Hysterectomy. No adnexal mass. GI tract: Stomach is decompressed. No bowel obstruction. No pericolonic inflammatory changes. Normal appendix. Vasculature and Lymph nodes: Normal caliber aorta with moderate atherosclerotic plaquing. IVC filter is appropriately positioned in an infrarenal position. No abdominal or pelvic lymphadenopathy. Musculoskeletal: No concerning osseous lesion. IMPRESSION: 1. No urinary tract calculi or obstructive uropathy. 2. No bowel obstruction, colitis or diverticulitis. 3. Trace bilateral pleural effusions. Patchy airspace consolidations associated with effusions could be due to atelectasis or pneumonia, depending on clinical presentation. Dictated by: Dictated on workstation # [id number]
[2017-11-06] MEDS ORDERED: BENZONATATE 100 MG (TESSALON) CAPSULE PO SCH (22:45)
[2017-11-06 22:56] LABS: BILIRUBIN,URINE NEGATIVE (NEGATIVE); CLARITY,URINE CLEAR; COLOR,URINE YELLOW; GLUCOSE, URINE (UA) 3+ (NEGATIVE); KETONES,URINE NEGATIVE (NEGATIVE); LEUKOCYTE ESTERASE ,URINE NEGATIVE (NEGATIVE); NITRITE,URINE NEGATIVE (NEGATIVE); PH,URINE 7 (5-9); PROTEIN,URINE 3+ (NEGATIVE); UROBILINOGEN,URINE NORMAL (NORMAL)
[2017-11-06 23:05] LABS: BACTERIA,URINE NEGATIVE /HPF; WBC,URINE RARE /HPF
[2017-11-06] MEDS ORDERED: 1/2 NS W/KCL 20 MEQ/L 1,000 ML IV ONE (23:33)
[2017-11-06] MEDS ORDERED: ONDANSETRON 4 MG (ZOFRAN) ORAL DISSOLVE TAB PO PRN (23:45)
[2017-11-06] MEDS ORDERED: ONDANSETRON 4 MG/2 ML (SDV) Z0FRAN IV PRN (23:45)
[2017-11-07] MEDS ORDERED: BENZONATATE 100 MG (TESSALON) CAPSULE PO PRN (00:15)
[2017-11-07 00:26] VITALS: BP 184/88
[2017-11-07] MEDS: 1/2 NS W/KCL 20 MEQ/L 1,000 ML IV SCH ×6 (00:27→20:24)
[2017-11-07] MEDS ORDERED: inSUlin ASPART (NovoLOG) 1 UNIT/0.01 ML (CHARGE PER UNIT) ONE (00:44)
[2017-11-07] MEDS ORDERED: inSUlin DETERMIR 1 UNIT/0.01 ML (LEVEMIR) CHARGE PER UNIT SQ ONE (00:45)
[2017-11-07] MEDS: inSUlin ASPART (NovoLOG) 1 UNIT/0.01 ML (CHARGE PER UNIT) SC SCH ×4 (00:51→18:19)
[2017-11-07] MEDS: inSUlin DETERMIR 1 UNIT/0.01 ML (LEVEMIR) CHARGE PER UNIT SQ SCH ×2 (00:51→20:29)
[2017-11-07 03:56] VITALS: BP 190/81
[2017-11-07 05:46] LABS: BASOPHILS % (AUTO) 0 % (0-10); EOSINOPHILS # (AUTO) 0.2 10^3/uL (0.0-0.3); EOSINOPHILS % (AUTO) 2 % (0-10); HEMATOCRIT 27 % (35-52); HEMOGLOBIN 7.9 G/DL (11.5-16.0); LYMPHOCYTES # (AUTO) 1.6 X 10^3 (1.0-4.0); LYMPHOCYTES % (AUTO) 17 % (12-44); MEAN CORPUSCULAR HEMOGLOBIN 28 PG (25-34); MEAN CORPUSCULAR HGB CONC 29 G/DL (32-36); MEAN CORPUSCULAR VOLUME 96 FL (80-99); MEAN PLATELET VOLUME 9.6 FL (7.4-10.4); MONOCYTES # (AUTO) 1.1 X 10^3 (0.0-1.0); MONOCYTES % (AUTO) 11 % (0-12); NEUTROPHILS # (AUTO) 6.5 X 10^3 (1.8-7.8); NEUTROPHILS % (AUTO) 70 % (42-75); PLATELET COUNT 261 10^3/uL (130-400); RED BLOOD COUNT 2.84 10^6/uL (4.35-5.85); RED CELL DISTRIBUTION WIDTH 14.9 % (10.0-14.5); WHITE BLOOD COUNT 9.4 10^3/uL (4.3-11.0)
[2017-11-07 06:02] LABS: CALCIUM 8.7 MG/DL (8.5-10.1); CREATININE SERUM 1.83 MG/DL (0.60-1.30)
[2017-11-07 08:00] VITALS: BP 187/77
[2017-11-07] MEDS ORDERED: ASPI-586 PO (09:02)
[2017-11-07] MEDS ORDERED: MAGN250T13 PO (09:04)
[2017-11-07] MEDS ORDERED: CLOP75TA28 PO (09:04)
[2017-11-07] MEDS ORDERED: MULT-974 PO (09:05)
[2017-11-07] MEDS ORDERED: CLON0.3T PO (09:06)
[2017-11-07] MEDS ORDERED: TORS20TA3 PO (09:07)
[2017-11-07] MEDS ORDERED: BRIN8DRO OU (09:08)
[2017-11-07] MEDS ORDERED: HYDR-3923 PO (09:09)
[2017-11-07] MEDS ORDERED: ACET-2422 PO (09:12)
[2017-11-07] MEDS: GABAPENTIN 100 MG (NEURONTIN) CAP PO SCH ×3 (10:42→20:26)
--- NOTE | 2017-11-07 10:45 | History & Physicial (CHS) ---
HPI History of Present Illness: 67 year old female presented to ED via EMS with camelia bright red bleeding per rectum. Pt's medical history is significant and extensive and includes that pt is a Quaker and does not want to receive any blood or blood products. Per report from [facility], pt's bleeding began earlier yesterday evening. She has not been at the facility very long; the patient was living independently in an apartment, had a hospitalization for debridement of osteomyelitis of left fourth toe with subsequent short stay in inpatient rehab at this facility. On the day of discharge, she was preparing to go home, and experienced cardiac arrest on 10/15/17. She had approx 1 round of ACLS with ROSC and was admitted to the ICU; she was ultimately transferred to a facility with nephrology available. At discharge, which appears to have been early last week, she was released to a [place] [facility]. On arrival in ED last night, pt was noted to have continued camelia rectal bleeding. She was placed in observation overnight with a consult to General Surgery today for further evaluation of her bleeding. Patient does state today that she does not want to be DNR and would like to be a FULL CODE. Will change code status, as pt is very awake and alert. Source: RN/, RN notes reviewed, old records Exam Limitations: no limitations Date seen by provider: Nov 07, 2017 Time Seen by Provider: 12:30 Attending Physician Sheyla Kwok DO PCP Iris Palomo MD Consult IZZY CHOPRA DO Date of Admission Nov 06, 2017 at 22:56 Home Medications Home Medications Reviewed patient Home Medication Reconciliation performed by pharmacy medication reconciliations industrial service technician and/or nursing. Patients Allergies have been reviewed. Allergies Coded Allergies: Bacitracin Zinc (Unverified Allergy, Unknown, 07/11/17) Penicillins (Unverified Allergy, Unknown, HAS RECEIVED ROCEPHIN DURING PREVIOUS ADMIT, 07/11/17) bacitracin (Unverified Allergy, Unknown, 07/11/17) colistimethate sodium (Unverified Allergy, Unknown, 07/11/17) gramicidin D (Unverified Allergy, Unknown, 07/11/17) neomycin sulfate (Unverified Allergy, Unknown, 07/11/17) polymyxin B (Unverified Allergy, Unknown, 07/11/17) polymyxin B sulfate (Unverified Allergy, Unknown, 07/11/17) pramoxine HCl (Unverified Allergy, Unknown, 07/11/17) DBU-Ghwpja-Vwyloz Hx Patient Social History Marrital Status: Living Status: Nursing Home Facility Employed/Student: unemployed Alcohol Use: Denies Use Recreational Drug Use: No Smoking Status: Current Everyday Smoker Type Used: Cigarettes Recent Foreign Travel: No Contact w/other who traveled: No Recent Hopitalizations: Yes ([facility], then transferred to [facility] for further care - October 2017) Recent Infectious Disease Expo: No Physical Abuse Screen: No Sexual Abuse: No Immunizations Up To Date Tetanus Booster (TDap): Unknown Date of Pneumonia Vaccine: Feb 20, 2017 Date of Influenza Vaccine: Feb 06, 2017 Past Medical History PMHx: HTN HERNAN on bipap IDDM - last HgbA1C 11.3 on 2017 Stage 4 CKD baseline Cr 2-2.5 h/o multiple TIAs h/o DVT, IVC filter in place Iron deficiency anemia Renal osteodystrophy CAD s/p cardiac arrest with ROSC 10/15/17 aortic valve sclerosis polyneuropathy diabetic retinopathy Morbid Obesity, BMI 60-70 SurgHx: Cholecystectomy Tonsillectomy and adenoidectomy Carotid endarterectomy Hysterectomy Laser eye surgery Right foot tumor removal Osteomyelitis left fourth toe debridement Family Medical History Significant Family History: Heart Disease, Diabetes, Hypertension Family History: Alzheimer's disease 19 MOTHER Cardiovascular disease Cataract 19 MOTHER Cataracts Congestive heart failure 19 FATHER Dementia 19 MOTHER Dementia 19 MOTHER Diabetes mellitus Family history: Allergy 19 FATHER 19 MOTHER Family history: Alzheimer's disease 19 MOTHER Family history: Cardiovascular disease 19 MOTHER Family history: Diabetes mellitus G8 BROTHER G8 BROTHER G8 SISTER Family history: Hypertension 19 FATHER Hearing loss G8 BROTHER Heart disease 19 FATHER G8 BROTHER G8 BROTHER G8 SISTER Hypertension 19 FATHER 19 MOTHER G8 BROTHER Infertile 19 FATHER 19 MOTHER G8 BROTHER G8 BROTHER G8 SISTER Myocardial infarction 19 FATHER Myocardial infarction 19 FATHER Psychotic disorder 19 FATHER Severe allergy G8 BROTHER G8 BROTHER Stroke 19 FATHER No Family History of: AIDS Abdominal aortic aneurysm Abdominal aortic aneurysm [place]'s disease Gigi's disease Alcoholism Alcoholism Aphasia Aphasia Arthritis Asthma Cancer Cancer of colon Cancer of mouth Chest pain Colon cancer Completed stroke Congenital disease Congenital heart disease Congenital heart disease Coronary thrombosis Cystic fibrosis Cystic fibrosis Dysphagia Family history: Arthritis Family history: Asthma Family history: Breast disease Family history: Coronary thrombosis Family history: Gastrointestinal disease Family history: Glaucoma Family history: Osteoporosis Family history: Thyroid disorder Fibrocystic disease of breast Gastroenteritis Glaucoma Headache Headache disorder Hereditary disease History of - anemia History of - disorder History of - respiratory disease History of drug abuse Human immunodeficiency virus (HIV) seropositivity Hypercholesterolemia Hypercholesterolemia Kidney disease Malignant neoplasm of lung Neoplasm Not obtainable due to adoption Osteoporosis Parkinson's disease Parkinson's disease Prostate cancer Psychosocial problem Seizure disorder Seizure disorder Thyroid disease Tuberculosis Tuberculosis Visual disorder Visual impairment Review of Systems ([facility]) Constitutional: see HPI EENTM: no symptoms reported Respiratory: no symptoms reported Cardiovascular: no symptoms reported Gastrointestinal: see HPI Genitourinary: no symptoms reported Musculoskeletal: no symptoms reported Skin: no symptoms reported Psychiatric/Neurological: No Symptoms Reported Reviewed Test Results Reviewed Test Results Lab Laboratory Tests Test 11/06/17 20:07 11/06/17 22:48 11/07/17 00:24 11/07/17 03:06 Range/Units White Blood Count 8.7 4.3-11.0 10^3/uL Red Blood Count 3.03 L 4.35-5.85 10^6/uL Hemoglobin 8.6 L 11.5-16.0 G/DL Hematocrit 29 L 35-52 % Mean Corpuscular Volume 96 80-99 FL Mean Corpuscular Hemoglobin 28 25-34 PG Mean Corpuscular Hemoglobin Concent 30 L 32-36 G/DL Red Cell Distribution Width 15.0 H 10.0-14.5 % Platelet Count 271 130-400 10^3/uL Mean Platelet Volume 9.9 7.4-10.4 FL Neutrophils (%) (Auto) 75 42-75 % Lymphocytes (%) (Auto) 15 12-44 % Monocytes (%) (Auto) 9 0-12 % Eosinophils (%) (Auto) 1 0-10 % Basophils (%) (Auto) 0 0-10 % Neutrophils # (Auto) 6.5 1.8-7.8 X 10^3 Lymphocytes # (Auto) 1.3 1.0-4.0 X 10^3 Monocytes # (Auto) 0.7 0.0-1.0 X 10^3 Eosinophils # (Auto) 0.1 0.0-0.3 10^3/uL Basophils # (Auto) 0.0 0.0-0.1 10^3/uL Sodium Level 143 135-145 MMOL/L Potassium Level 4.3 3.6-5.0 MMOL/L Chloride Level 102 98-107 MMOL/L Carbon Dioxide Level 30 21-32 MMOL/L Anion Gap 11 5-14 MMOL/L Blood Urea Nitrogen 65 H 7-18 MG/DL Creatinine 2.22 H 0.60-1.30 MG/DL Estimat Glomerular Filtration Rate 22 BUN/Creatinine Ratio 29 Glucose Level 413 *H 70-105 MG/DL Calcium Level 9.1 8.5-10.1 MG/DL Total Bilirubin 0.5 0.1-1.0 MG/DL Aspartate Amino Transf (AST/SGOT) 27 5-34 U/L Alanine Aminotransferase (ALT/SGPT) 173 H 0-55 U/L Alkaline Phosphatase 177 H 40-136 U/L Total Protein 6.6 6.4-8.2 GM/DL Albumin 2.7 L 3.2-4.5 GM/DL Urine Color YELLOW Urine Clarity CLEAR Urine pH 7 5-9 Urine Specific [place] 1.010 L 1.016-1.022 Urine Protein 3+ H NEGATIVE Urine Glucose (UA) 3+ H NEGATIVE Urine Ketones NEGATIVE NEGATIVE Urine Nitrite NEGATIVE NEGATIVE Urine Bilirubin NEGATIVE NEGATIVE Urine Urobilinogen NORMAL NORMAL MG/DL Urine Leukocyte Esterase NEGATIVE NEGATIVE Urine RBC (Auto) 2+ H NEGATIVE Urine RBC 2-5 H /HPF Urine WBC RARE /HPF Urine Crystals NONE /LPF Urine Bacteria NEGATIVE /HPF Urine Casts NONE /LPF Urine Mucus NEGATIVE /LPF Urine Culture Indicated NO Glucometer 467 *H 226 H 70-110 MG/DL Test 11/07/17 05:22 11/07/17 05:37 Range/Units Glucometer 163 H 70-110 MG/DL White Blood Count 9.4 4.3-11.0 10^3/uL Red Blood Count 2.84 L 4.35-5.85 10^6/uL Hemoglobin 7.9 L 11.5-16.0 G/DL Hematocrit 27 L 35-52 % Mean Corpuscular Volume 96 80-99 FL Mean Corpuscular Hemoglobin 28 25-34 PG Mean Corpuscular Hemoglobin Concent 29 L 32-36 G/DL Red Cell Distribution Width 14.9 H 10.0-14.5 % Platelet Count 261 130-400 10^3/uL Mean Platelet Volume 9.6 7.4-10.4 FL Neutrophils (%) (Auto) 70 42-75 % Lymphocytes (%) (Auto) 17 12-44 % Monocytes (%) (Auto) 11 0-12 % Eosinophils (%) (Auto) 2 0-10 % Basophils (%) (Auto) 0 0-10 % Neutrophils # (Auto) 6.5 1.8-7.8 X 10^3 Lymphocytes # (Auto) 1.6 1.0-4.0 X 10^3 Monocytes # (Auto) 1.1 H 0.0-1.0 X 10^3 Eosinophils # (Auto) 0.2 0.0-0.3 10^3/uL Basophils # (Auto) 0.0 0.0-0.1 10^3/uL Sodium Level 145 135-145 MMOL/L Potassium Level 4.0 3.6-5.0 MMOL/L Chloride Level 106 98-107 MMOL/L Carbon Dioxide Level 29 21-32 MMOL/L Anion Gap 10 5-14 MMOL/L Blood Urea Nitrogen 56 H 7-18 MG/DL Creatinine 1.83 H 0.60-1.30 MG/DL Estimat Glomerular Filtration Rate 28 BUN/Creatinine Ratio 31 Glucose Level 158 H 70-105 MG/DL Calcium Level 8.7 8.5-10.1 MG/DL Radiology Date of Exam: 11/06/17 CHEST 1 VIEW, AP/PA ONLY INDICATION: Productive cough. COMPARISON: 10/16/2017. FINDINGS: Heart is enlarged. Bandlike opacities are present in the bilateral perihilar regions likely due to subsegmental atelectasis. Otherwise, visualized lungs are clear. Please note the posterior lower lobes are poorly evaluated by portable radiography. No pleural effusion or pneumothorax. Stable right IJ Port-A-Cath. IMPRESSION: 1. Bilateral perihilar subsegmental atelectasis. No imaging features of pneumonia. Date of Exam: 11/06/17 CT ABDOMEN/PELVIS WO PROCEDURE: CT abdomen and pelvis without contrast. TECHNIQUE: Multiple contiguous axial images were obtained through the abdomen and pelvis without the use of intravenous contrast. INDICATION: Abdominal pain. COMPARISON: 07/10/2013 FINDINGS: Evaluation of the abdominal viscera is mildly limited without contrast. Lower chest: Trace bilateral pleural effusions. Patchy consolidations within the bilateral lower lobes are subjacent to the effusions. Peritoneum: No free intraperitoneal air or fluid. Liver and biliary system: Unenhanced liver is normal. Cholecystectomy. Spleen and Pancreas: Spleen is normal. Unenhanced pancreas is grossly normal. Adrenals: Normal. tract: No renal or ureteral calculi. No obstructive uropathy. Hysterectomy. No adnexal mass. GI tract: Stomach is decompressed. No bowel obstruction. No pericolonic inflammatory changes. Normal appendix. Vasculature and Lymph nodes: Normal caliber aorta with moderate atherosclerotic plaquing. IVC filter is appropriately positioned in an infrarenal position. No abdominal or pelvic lymphadenopathy. Musculoskeletal: No concerning osseous lesion. IMPRESSION: 1. No urinary tract calculi or obstructive uropathy. 2. No bowel obstruction, colitis or diverticulitis. 3. Trace bilateral pleural effusions. Patchy airspace consolidations associated with effusions could be due to atelectasis or pneumonia, depending on clinical presentation. Physical Exam-([facility]) Physical Exam Vital Signs VS - Last 72 Hours, by Label 11/06/17 11/06/17 11/07/17 11/07/17 19:47 23:14 00:26 01:23 Temp 98.2 Pulse 101 98 78 Resp 20 20 22 B/P (MAP) 195/104 (134) 171/86 184/88 (120) Pulse Ox 96 97 99 O2 Delivery Nasal Cannula Nasal Cannula Nasal Cannula Nasal Cannula O2 Flow Rate 4.00 4.00 4.00 4.00 11/07/17 11/07/17 11/07/17 11/07/17 03:56 08:00 08:00 09:39 Temp 97.4 98.9 Pulse 79 91 Resp 22 22 B/P (MAP) 190/81 (117) 187/77 (113) Pulse Ox 99 98 O2 Delivery Nasal Cannula Nasal Cannula Nasal Cannula Nasal Cannula O2 Flow Rate 4.00 4.00 4.00 4.00 11/07/17 11/07/17 11/07/17 11/07/17 12:00 16:55 19:24 22:04 Temp 98.0 98.9 98.5 Pulse 88 84 85 Resp 20 20 20 B/P (MAP) 174/74 (107) 159/68 (98) 141/71 (94) Pulse Ox 98 93 91 O2 Delivery Nasal Cannula Nasal Cannula Nasal Cannula Nasal Cannula O2 Flow Rate 4.00 4.00 4.00 4.00 Capillary Refill : Less Than 3 Seconds General Appearance: WD/WN, no apparent distress Eyes: Bilateral Eye Normal Inspection, Bilateral Eye EOMI, Bilateral Eye Conjunctivae Pale HEENT: PERRL/EOMI; No scleral icterus (R), No scleral icterus (L); pale conjunctivae (R), pale conjunctivae (L); No photophobia Neck: non-tender, full range of motion, supple, normal inspection Respiratory: chest non-tender, lungs clear, normal breath sounds, no respiratory distress, no accessory muscle use Cardiovascular: regular rate, rhythm, no gallop, no JVD, systolic murmur Gastrointestinal: normal bowel sounds, non tender, soft, no pulsatile mass Rectal: deferred Extremities: non-tender, normal inspection, no calf tenderness, slow capillary refill Neurologic/Psychiatric: science specialist II-XII nml as tested, no motor/sensory deficits, alert, normal mood/affect, oriented x 3 Skin: warm/dry, pallor Assessment/Plan Assessment/Plan Admission Dx GI Bleed Anemia Chronic Kidney Disease, Stage 4 Super Morbid Obesity, BMI 60-70 Type II Diabetes with Complication Hx of DVT Admission Status: Observation (1) GI bleeding Status: Acute Assessment & Plan: 11/07 -Hgb 8.7 on admission -consult to Dr. Chopra -plan for repeat H&H at 1300, then decision per Dr. Chopra on endoscopy now vs as outpatient -pt maintains refusal of blood and blood products Qualifiers: Qualified Codes: K92.2 - Gastrointestinal hemorrhage, unspecified (2) Anemia Status: Acute Assessment & Plan: 11/07 -8.7 --> 7.6 -pt extremely pale -declines blood or blood products -plan for repeat H&H at 1300 Qualifiers: Qualified Codes: D62 - Acute posthemorrhagic anemia (3) BRBPR (bright red blood per rectum) Status: Acute Assessment & Plan: 11/07 -consult to Dr. 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 Assessment & Plan: 11/07 -NPO currently -will resume home insulin and sliding scale when able to have diet ordered (6) Hypertension Status: Chronic Assessment & Plan: 11/07 -resume home meds Qualifiers: Qualified Codes: I10 - Essential (primary) hypertension (7) Aortic valve sclerosis Status: Chronic (8) History of DVT (deep vein thrombosis) Status: Chronic Permanent Comment: IVC Filter in place Last Edited By: Sheyla Kwok on Nov 07, 2017 22:24 (9) Coronary artery disease Status: Chronic Qualifiers: Qualified Codes: I25.10 - Atherosclerotic heart disease of [place] coronary artery without angina pectoris (10) Presence of IVC filter Status: Chronic (11) Renal osteodystrophy Status: Chronic (12) Sleep apnea with use of nocturnal bilevel positive airway pressure (BPAP) Status: Chronic (13) Obesity hypoventilation syndrome Status: Chronic (14) History of cardiac arrest Permanent Comment: 10/15/17 - ROSC after 1 round ACLS Last Edited By: Sheyla Kwok on Nov 07, 2017 22:23 (15) DVT prophylaxis Status: Acute Assessment & Plan: 11/07 -pt with profound anemia, will hold on chemoprophylaxis at this time -[facility] Clinical Quality Measures DVT/VTE Risk/Contraindication: Risk Factor Score Per Nursin RFS Level Per Nursing on Admit: 4+=Very High Copy Copies To 1: [facility]/SHEYLA RENAE DO Nov 07, 2017 10:45
[2017-11-07] MEDS ORDERED: inSUlin ASPART (NovoLOG) 1 UNIT/0.01 ML (CHARGE PER UNIT) SC SCH (11:15)
[2017-11-07 12:00] VITALS: BP 174/74
[2017-11-07] MEDS ORDERED: DARBEPOETIN 100 MCG/ML (ARANESP) 1 ML VIAL SC NR (12:00)
[2017-11-07] MEDS ORDERED: FERRIC CARBOXYMALTOSE INJ 750 MG in NS (IVPB) 250 ML IV SCH (12:00)
--- NOTE | 2017-11-07 12:04 | Oncology Consultation ---
Visit Information Visit Information Date of Admission Nov 06, 2017 at 22:56 Attending Physician Sheyla Kwok DO Admitting Physician Iris Palomo MD Chief Complaint Bright red blood per rectum, Hb 7.9, Jehovah witness/no blood products, h/o cardiac arrest 10/15/17 on Plavix and ASA. Interval History Called to see this 67 year old female [facility] who was brought to ED via EMS with camelia bright red bleeding per rectum. Her Hb was 8.5 last night and 7.9 this morning. She does not want to receive any blood or blood products. Per report from correction, pt's bleeding began earlier yesterday evening. General surgeon was consulted for work up of the lower GI bleeding. We are called to manage her anemia. She also has chronic renal failure Cr 2-2.6 range. She was recently in [facility] for debridement of osteomyelitis of left fourth toe with subsequent short stay in inpatient rehab at this facility. On the day of discharge, she was preparing to go home, and experienced cardiac arrest on 10/15/17. She had approx 1 round of ACLS with ROSC and was admitted to the ICU; she was ultimately transferred to a facility with nephrology available. [facility] I consulted the patient on: 11/07/17 11:58 Time Seen by Provider: 13:55 Constitutional: weakness EENTM: no symptoms reported Respiratory: no symptoms reported Cardiovascular: see HPI Gastrointestinal: melena, other Musculoskeletal: no symptoms reported Psychiatric/Neurological: No Symptoms Reported Health Status Allergies Coded Allergies: Bacitracin Zinc (Unverified Allergy, Unknown, 07/11/17) Penicillins (Unverified Allergy, Unknown, HAS RECEIVED ROCEPHIN DURING PREVIOUS ADMIT, 07/11/17) bacitracin (Unverified Allergy, Unknown, 07/11/17) colistimethate sodium (Unverified Allergy, Unknown, 07/11/17) gramicidin D (Unverified Allergy, Unknown, 07/11/17) neomycin sulfate (Unverified Allergy, Unknown, 07/11/17) polymyxin B (Unverified Allergy, Unknown, 07/11/17) polymyxin B sulfate (Unverified Allergy, Unknown, 07/11/17) pramoxine HCl (Unverified Allergy, Unknown, 07/11/17) Home Medications Acetaminophen (Acetaminophen ER) 650 Mg Tablet.er, 1,300 MG PO Q8H PRN for PAIN- MILD, (Reported) Arginine (Arginine) 2,000 Mg Powd.pack, 2,000 MG PO TID, (Reported) Aspirin (Aspir 81) 81 Mg Tablet.dr, 81 MG PO DAILY, (Reported) Brinzolamide/Brimonidine Tart (Simbrinza 1%-0.2% Eye Drops) 8 Ml Drops.susp, 1 DROPS OU TID, (Reported) Cholecalciferol (Vitamin D3) (Vitamin D3) 5,000 Unit Capsule, 5,000 UNITS PO HS, (Reported) Clonidine HCl (Clonidine HCl) 0.3 Mg Tablet, 0.3 MG PO BID, (Reported) Clopidogrel Bisulfate (Clopidogrel) 75 Mg Tablet, 75 MG PO DAILY, (Reported) Gabapentin (Gabapentin) 100 Mg Capsule, 100 MG PO TID, (Reported) Hydralazine HCl (Hydralazine HCl) 25 Mg Tablet, 25 MG PO TID, (Reported) Insulin Aspart (Novolog Flexpen) 300 Units/3 Ml Solution, 9 UNITS SC AC, ( Reported) Insulin Detemir (Levemir Flextouch) 100 Unit/1 Ml Insuln.pen, 20 UNITS SC BID, ( Reported) Loratadine (Alavert) 10 Mg Tab.rapdis, 10 MG PO, (Reported) Magnesium Oxide (Magnesium) 250 Mg Tablet, 250 MG PO, (Reported) Multivitamin (Multi-Vitamin Daily) 1 Each Tablet, 1 EACH PO DAILY, (Reported) [place]-3/Dha/Epa/Fish Oil (Fish Oil 1,000 mg Softgel) 1 Each Capsule, 1,000 MG PO TID, (Reported) Rosuvastatin Calcium (Rosuvastatin Calcium) 20 Mg Tablet, 20 MG PO HS, (Reported ) Torsemide (Torsemide) 20 Mg Tablet, 20 MG PO BID, (Reported) PDX-Wnqkww-Opporb Hx Patient Social History Marrital Status: single Living Status: [facility] Alcohol Use: Denies Use Recreational Drug Use: No Smoking Status: Current Everyday Smoker Type Used: Cigarettes Recent Foreign Travel: No Contact w/other who traveled: No Recent Infectious Disease Expo: No Recent Hopitalizations: Yes ([facility], then transferred to [facility] for further care - October 2017) Physical Abuse Screen: No Sexual Abuse: No Immunizations Up To Date Tetanus Booster (TDap): Unknown Date of Pneumonia Vaccine: Feb 20, 2017 Date of Influenza Vaccine: Feb 06, 2017 Family Medical History Significant Family History: Heart Disease, Diabetes, Hypertension Family History: Alzheimer's disease 19 MOTHER Cardiovascular disease Cataract 19 MOTHER Cataracts Congestive heart failure 19 FATHER Dementia 19 MOTHER Dementia 19 MOTHER Diabetes mellitus Family history: Allergy 19 FATHER 19 MOTHER Family history: Alzheimer's disease 19 MOTHER Family history: Cardiovascular disease 19 MOTHER Family history: Diabetes mellitus G8 BROTHER G8 BROTHER G8 SISTER Family history: Hypertension 19 FATHER Hearing loss G8 BROTHER Heart disease 19 FATHER G8 BROTHER G8 BROTHER G8 SISTER Hypertension 19 FATHER 19 MOTHER G8 BROTHER Infertile 19 FATHER 19 MOTHER G8 BROTHER G8 BROTHER G8 SISTER Myocardial infarction 19 FATHER Myocardial infarction 19 FATHER Psychotic disorder 19 FATHER Severe allergy G8 BROTHER G8 BROTHER Stroke 19 FATHER No Family History of: AIDS Abdominal aortic aneurysm Abdominal aortic aneurysm [place]'s disease [place]'s disease Alcoholism Alcoholism Aphasia Aphasia Arthritis Asthma Cancer Cancer of colon Cancer of mouth Chest pain Colon cancer Completed stroke Congenital disease Congenital heart disease Congenital heart disease Coronary thrombosis Cystic fibrosis Cystic fibrosis Dysphagia Family history: Arthritis Family history: Asthma Family history: Breast disease Family history: Coronary thrombosis Family history: Gastrointestinal disease Family history: Glaucoma Family history: Osteoporosis Family history: Thyroid disorder Fibrocystic disease of breast Gastroenteritis Glaucoma Headache Headache disorder Hereditary disease History of - anemia History of - disorder History of - respiratory disease History of drug abuse Human immunodeficiency virus (HIV) seropositivity Hypercholesterolemia Hypercholesterolemia Kidney disease Malignant neoplasm of lung Neoplasm Not obtainable due to adoption Osteoporosis Parkinson's disease Parkinson's disease Prostate cancer Psychosocial problem Seizure disorder Seizure disorder Thyroid disease Tuberculosis Tuberculosis Visual disorder Visual impairment Physical Exam Vital Signs Vital Signs - First Documented 11/06/17 11/07/17 19:47 00:26 Temp 98.2 Pulse 101 Resp 20 B/P (MAP) 195/104 (134) Pulse Ox 96 O2 Delivery Nasal Cannula O2 Flow Rate 4.00 Capillary Refill : Less Than 3 Seconds General Appearance: No Apparent Distress, Other (morbit obese, pale) HEENT: PERRL/EOMI Neck: Non Tender, Supple Respiratory: No Accessory Muscle Use, No Respiratory Distress Cardiovascular: Regular Rate, Rhythm Gastrointestinal: Non Tender, Soft, Other (obese) Rectal: Deferred Data Review Labs Laboratory Tests 11/08/17 05:18 Laboratory Tests 11/06/17 20:07: Red Blood Count 3.03L, Hemoglobin 8.6L, Hematocrit 29L, Mean Corpuscular Hemoglobin Concent 30L, Red Cell Distribution Width 15.0H, Blood Urea Nitrogen 65H, Creatinine 2.22H, Glucose Level 413*H, Alanine Aminotransferase (ALT/SGPT) 173H, Alkaline Phosphatase 177H, Albumin 2.7L 11/06/17 22:48: Urine Specific [place] 1.010L, Urine Protein 3+H, Urine Glucose (UA) 3+H, Urine RBC (Auto) 2+H, Urine RBC 2-5H 11/07/17 00:24: Glucometer 467*H 11/07/17 03:06: Glucometer 226H 11/07/17 05:22: Glucometer 163H 11/07/17 05:37: Red Blood Count 2.84L, Hemoglobin 7.9L, Hematocrit 27L, Mean Corpuscular Hemoglobin Concent 29L, Red Cell Distribution Width 14.9H, Monocytes # (Auto) 1.1H, Blood Urea Nitrogen 56H, Creatinine 1.83H, Glucose Level 158H 11/07/17 12:02: Glucometer 337H 11/07/17 12:30: Iron Level 23L, Total Iron Binding Capacity 192L, Transferrin % Saturation 12L 11/07/17 13:20: Hemoglobin 6.1#*L, Hematocrit 21L 11/07/17 18:09: Glucometer 271H 11/08/17 01:13: Glucometer 317H 11/08/17 05:18: Hemoglobin 5.2*L, Hematocrit 18*L, Red Blood Count 1.84L, Mean Corpuscular Hemoglobin Concent 29L, Red Cell Distribution Width 14.9H, Blood Urea Nitrogen 50H, Creatinine 1.76H, Glucose Level 135H, Calcium Level 8.1L 11/08/17 05:55: Glucometer 125H 11/08/17 11:40: Glucometer 133H Impression & Plan Impression & Plan IMP: 1. Acute lower GI bleeding while on Plavix and ASA which were on hold since last night 2. Anemia from GI bleeding and chronic renal failure 3. Adventist/no blood products 4. Morbid obese 5. h/o chronic osteomyelitis of the lower extremity 6. DM 7. recent h/o of cardiac arrest Plan: 1. Check iron study 2. IV iron infusion 3. EPO-Aranesp 4. Vitamins 5. Hold of Plavix and ASA 6. Surgery consult for work up of lower GI bleeding. 7. Pt needs to go back to Dr Augustin for f/u once discharge. AARON AMBROSIO MD Nov 07, 2017 12:04
[2017-11-07] MEDS ORDERED: GABAPENTIN 100 MG (NEURONTIN) CAP PO SCH (13:00)
[2017-11-07] MEDS: hydrALAZINE (APRESOLINE) 25 MG TAB PO SCH ×2 (13:02→20:25)
[2017-11-07 13:36] LABS: HEMOGLOBIN 6.1 G/DL (11.5-16.0)
--- NOTE | 2017-11-07 14:22 | Consultation ---
History of Present Illness History of Present Illness Patient Consulted On(judith/time) 11/07/17 14:17 Date Seen by Provider: Nov 07, 2017 Time Seen by Provider: 10:01 History of Present Illness Consult requested by Dr. Kwok for GI bleed. Patient is a 67 year old female who began having bright red blood from rectum that began yesterday. She has had multiple bloody bowel movements. Some of the stools are now starting to turn more black in color. She is not having any abdominal pain. She is on PLavix and ASA. She has had previous GI bleed family states without finding source. Patient does not want to receive any blood or blood products. Had a ct scan abd/pelv no contrast due to kidney function and no acute pathology except maybe pleura effusion. Allergies and Home Medications Allergies Coded Allergies: Bacitracin Zinc (Unverified Allergy, Unknown, 07/11/17) Penicillins (Unverified Allergy, Unknown, HAS RECEIVED ROCEPHIN DURING PREVIOUS ADMIT, 07/11/17) bacitracin (Unverified Allergy, Unknown, 07/11/17) colistimethate sodium (Unverified Allergy, Unknown, 07/11/17) gramicidin D (Unverified Allergy, Unknown, 07/11/17) neomycin sulfate (Unverified Allergy, Unknown, 07/11/17) polymyxin B (Unverified Allergy, Unknown, 07/11/17) polymyxin B sulfate (Unverified Allergy, Unknown, 07/11/17) pramoxine HCl (Unverified Allergy, Unknown, 07/11/17) Home Medications Acetaminophen 650 Mg Tablet.er, 1,300 MG PO Q8H PRN for PAIN-MILD, (Reported) Arginine 2,000 Mg Powd.pack, 2,000 MG PO TID, (Reported) Aspirin 81 Mg Tablet.dr, 81 MG PO DAILY, (Reported) Brinzolamide/Brimonidine Tart 8 Ml Drops.susp, 1 DROPS OU TID, (Reported) Cholecalciferol (Vitamin D3) 5,000 Unit Capsule, 5,000 UNITS PO HS, (Reported) Clonidine HCl 0.3 Mg Tablet, 0.3 MG PO BID, (Reported) Clopidogrel Bisulfate 75 Mg Tablet, 75 MG PO DAILY, (Reported) Gabapentin 100 Mg Capsule, 100 MG PO TID, (Reported) Hydralazine HCl 25 Mg Tablet, 25 MG PO TID, (Reported) Insulin Aspart 300 Units/3 Ml Solution, 9 UNITS SC AC, (Reported) Insulin Detemir 100 Unit/1 Ml Insuln.pen, 20 UNITS SC BID, (Reported) Multivitamin 1 Each Tablet, 1 EACH PO DAILY, (Reported) [place]-3/Dha/Epa/Fish Oil 1 Each Capsule, 1,000 MG PO TID, (Reported) Rosuvastatin Calcium 20 Mg Tablet, 20 MG PO HS, (Reported) Torsemide 20 Mg Tablet, 20 MG PO BID, (Reported) Patient Home Medication List Home Medication List Reviewed: Yes Past Hlzdawy-Vlmcim-Mesawr Hx Patient Social History Alcohol Use: Denies Use Recreational Drug Use: No Smoking Status: Current Everyday Smoker Type Used: Cigarettes Recent Foreign Travel: No Contact w/Someone Who Travel: No Recent Infectious Disease Expo: No Recent Hopitalizations: Yes ([facility], then transferred to [place] for further care - October 2017) Physical Abuse Screen: No Sexual Abuse: No Immunizations Up To Date Tetanus Booster (TDap): Unknown PED Vaccines UTD: No Date of Pneumonia Vaccine: Feb 20, 2017 Date of Influenza Vaccine: Feb 06, 2017 Seasonal Allergies Seasonal Allergies: Yes Surgeries History of Surgeries: Yes (FISSURE SX AFTER HYSTERECTOMY, Rt. Carotid Endarderectomy, IVC Filter, Port) Surgeries: Gallbladder, Hysterectomy Respiratory History of Respiratory Disorde: Yes (WEARS O2, SLEEP APNEA) Respiratory Disorders: Sleep Apnea, COPD Cardiovascular History of Cardiac Disorders: Yes (STENTS X5) Cardiac Disorders: Deep Vein Thrombosis, High Cholesterol, Hypertension Neurological History of Neurological Disord: Yes (willy filter placed) Neurological Disorders: TIA Reproductive System Hx Reproductive Disorders: No Sexually Transmitted Disease: No HIV/AIDS: No Female Reproductive Disorders: Denies GAS EXAMINER History: Hysterectomy Genitourinary History of Genitourinary Disor: Yes (2 abscessed kidneys per patient) Genitourinary Disorders: Renal Failure, UTI-Chronic Gastrointestinal History of Gastrointestinal Di: Yes Gastrointestinal Disorders: Chronic Diarrhea, Gall Bladder Disease Musculoskeletal History of Musculoskeletal Dis: Yes ( RIGHT SHOULDER labral tear DDD, BONE INF. LEFT FOOT) Musculoskeletal Disorders: Arthritis, Chronic Back Pain, Fractures Endocrine History of Endocrine Disorders: Yes Endocrine Disorders: Diabetes, Insulin dep HEENT History of HEENT Disorders: Yes HEENT Disorders: Cataract Loss of Vision: Denies Hearing Impairment: Denies Cancer History of Cancer: No Psychosocial History of Psychiatric Problem: No Integumentary History of Skin or Integumenta: No Blood Transfusions History of Blood Disorders: Yes (Chronic ANEMIA- epo shots) Adverse Reaction to a Blood Tr: No (N/A) Family Medical History Significant Family History: Heart Disease, Diabetes, Hypertension Family Medial History: Alzheimer's disease 19 MOTHER Cardiovascular disease Cataract 19 MOTHER Cataracts Congestive heart failure 19 FATHER Dementia 19 MOTHER Dementia 19 MOTHER Diabetes mellitus Family history: Allergy 19 FATHER 19 MOTHER Family history: Alzheimer's disease 19 MOTHER Family history: Cardiovascular disease 19 MOTHER Family history: Diabetes mellitus G8 BROTHER G8 BROTHER G8 SISTER Family history: Hypertension 19 FATHER Hearing loss G8 BROTHER Heart disease 19 FATHER G8 BROTHER G8 BROTHER G8 SISTER Hypertension 19 FATHER 19 MOTHER G8 BROTHER Infertile 19 FATHER 19 MOTHER G8 BROTHER G8 BROTHER G8 SISTER Myocardial infarction 19 FATHER Myocardial infarction 19 FATHER Psychotic disorder 19 FATHER Severe allergy G8 BROTHER G8 BROTHER Stroke 19 FATHER No Family History of: AIDS Abdominal aortic aneurysm Abdominal aortic aneurysm Gates's disease Gates's disease Alcoholism Alcoholism Aphasia Aphasia Arthritis Asthma Cancer Cancer of colon Cancer of mouth Chest pain Colon cancer Completed stroke Congenital disease Congenital heart disease Congenital heart disease Coronary thrombosis Cystic fibrosis Cystic fibrosis Dysphagia Family history: Arthritis Family history: Asthma Family history: Breast disease Family history: Coronary thrombosis Family history: Gastrointestinal disease Family history: Glaucoma Family history: Osteoporosis Family history: Thyroid disorder Fibrocystic disease of breast Gastroenteritis Glaucoma Headache Headache disorder Hereditary disease History of - anemia History of - disorder History of - respiratory disease History of drug abuse Human immunodeficiency virus (HIV) seropositivity Hypercholesterolemia Hypercholesterolemia Kidney disease Malignant neoplasm of lung Neoplasm Not obtainable due to adoption Osteoporosis Parkinson's disease Parkinson's disease Prostate cancer Psychosocial problem Seizure disorder Seizure disorder Thyroid disease Tuberculosis Tuberculosis Visual disorder Visual impairment Review of Systems-General Constitutional: no symptoms reported EENTM: no symptoms reported Respiratory: no symptoms reported Cardiovascular: no symptoms reported Gastrointestinal: see HPI Genitourinary: no symptoms reported Musculoskeletal: no symptoms reported Skin: no symptoms reported Psychiatric/Neurological: No Symptoms Reported Physical Exam-General Problems Physical Exam Vital Signs Vital Signs - First Documented 11/06/17 11/07/17 19:47 00:26 Temp 98.2 Pulse 101 Resp 20 B/P (MAP) 195/104 (134) Pulse Ox 96 O2 Delivery Nasal Cannula O2 Flow Rate 4.00 Capillary Refill : Less Than 3 Seconds General Appearance: no apparent distress (obese) HEENT: PERRL/EOMI Neck: supple Respiratory: no respiratory distress, no accessory muscle use Cardiovascular: regular rate, rhythm Gastrointestinal: non tender, soft; No tenderness Rectal: deferred (at this time) Back: no CVA tenderness Extremities: non-tender Neurologic/Psychiatric: alert, normal mood/affect, oriented x 3 Skin: pallor Lymphatic: no adenopathy Data Review Labs Laboratory Tests 11/06/17 20:07: White Blood Count 8.7, Red Blood Count 3.03L, Hemoglobin 8.6L, Hematocrit 29L, Mean Corpuscular Volume 96, Mean Corpuscular Hemoglobin 28, Mean Corpuscular Hemoglobin Concent 30L, Red Cell Distribution Width 15.0H, Platelet Count 271, Mean Platelet Volume 9.9, Neutrophils (%) (Auto) 75, Lymphocytes (%) (Auto) 15, Monocytes (%) (Auto) 9, Eosinophils (%) (Auto) 1, Basophils (%) (Auto) 0, Neutrophils # (Auto) 6.5, Lymphocytes # (Auto) 1.3, Monocytes # (Auto) 0.7, Eosinophils # (Auto) 0.1, Basophils # (Auto) 0.0, Sodium Level 143, Potassium Level 4.3, Chloride Level 102, Carbon Dioxide Level 30, Anion Gap 11, Blood Urea Nitrogen 65H, Creatinine 2.22H, Estimat Glomerular Filtration Rate 22, BUN/ Creatinine Ratio 29, Glucose Level 413*H, Calcium Level 9.1, Total Bilirubin 0.5 , Aspartate Amino Transf (AST/SGOT) 27, Alanine Aminotransferase (ALT/SGPT) 173H , Alkaline Phosphatase 177H, Total Protein 6.6, Albumin 2.7L 11/06/17 22:48: Urine Color YELLOW, Urine Clarity CLEAR, Urine pH 7, Urine Specific [place] 1.010L, Urine Protein 3+H, Urine Glucose (UA) 3+H, Urine Ketones NEGATIVE, Urine Nitrite NEGATIVE, Urine Bilirubin NEGATIVE, Urine Urobilinogen NORMAL, Urine Leukocyte Esterase NEGATIVE, Urine RBC (Auto) 2+H, Urine RBC 2-5H, Urine WBC RARE, Urine Crystals NONE, Urine Bacteria NEGATIVE, Urine Casts NONE, Urine Mucus NEGATIVE, Urine Culture Indicated NO 7/3/18 00:24: Glucometer 467*H 11/07/17 03:06: Glucometer 226H 11/07/17 05:22: Glucometer 163H 11/07/17 05:37: White Blood Count 9.4, Red Blood Count 2.84L, Hemoglobin 7.9L, Hematocrit 27L, Mean Corpuscular Volume 96, Mean Corpuscular Hemoglobin 28, Mean Corpuscular Hemoglobin Concent 29L, Red Cell Distribution Width 14.9H, Platelet Count 261, Mean Platelet Volume 9.6, Neutrophils (%) (Auto) 70, Lymphocytes (%) (Auto) 17, Monocytes (%) (Auto) 11, Eosinophils (%) (Auto) 2, Basophils (%) (Auto) 0, Neutrophils # (Auto) 6.5, Lymphocytes # (Auto) 1.6, Monocytes # (Auto) 1.1H, Eosinophils # (Auto) 0.2, Basophils # (Auto) 0.0, Sodium Level 145, Potassium Level 4.0, Chloride Level 106, Carbon Dioxide Level 29, Anion Gap 10, Blood Urea Nitrogen 56H, Creatinine 1.83H, Estimat Glomerular Filtration Rate 28, BUN/ Creatinine Ratio 31, Glucose Level 158H, Calcium Level 8.7 11/07/17 12:02: Glucometer 337H 11/07/17 12:30: 11/07/17 13:20: Hemoglobin 6.1#*L, Hematocrit 21L Assessment/Plan Assessment/Plan Assessment/Plan gi bleed, suspect lower anemia secondary to blood loss kidney disease npo follow hgb discussed transfusion which was declined will follow hgb, discussed risks and benefits of egd/colonoscopy if hgb drops next blood draw and it dropped to 6.1 plan egd and colonoscopy now consult hematology per family request for anemia Clinical Quality Measures DVT/VTE Risk/Contraindication: Risk Factor Score Per Nursin RFS Level Per Nursing on Admit: 4+=Very High IZZY CHOPRA DO Nov 07, 2017 14:22
[2017-11-07] MEDS: LACTATED RINGERS 1,000 ML IV SCH ×2 (14:26→15:45)
[2017-11-07] MEDS: IRON SUCROSE 200 MG/10 ML (VENOFER) VIAL IV SCH (14:35)
[2017-11-07] MEDS ORDERED: LACTATED RINGERS 1,000 ML IV ONE ×2 (14:47→16:13)
[2017-11-07] MEDS ORDERED: KETAMINE HCL 100 MG/ML 5 ML VIAL ONE (14:51)
[2017-11-07] MEDS ORDERED: MIDAZOLAM 2 MG/2 ML (VERSED) VIAL ONE (14:51)
[2017-11-07] MEDS ORDERED: proPOfol 200 MG/20 ML (DIPRIVAN) VIAL IV ONE (14:51)
[2017-11-07] MEDS ORDERED: EPINEPHrine INJECTION 1 MG/ML AMP ONE (15:49)
--- NOTE | 2017-11-07 16:37 | Anesthesia-General Post-Op ---
MAC Patient Condition Mental Status/LOC: Same as Preop Cardiovascular: Satisfactory Nausea/Vomiting: Absent Respiratory: Satisfactory Pain: Controlled Complications: Absent Post Op Complications Complications None Follow Up Care/Instructions Patient Instructions None needed. Anesthesiology Discharge Order Discharge Order Patient is doing well, no complaints, stable vital signs, no apparent adverse anesthesia problems. No complications reported per nursing. YUNIEL SEGUNDO CRNA Nov 07, 2017 16:37
[2017-11-07 16:55] VITALS: BP 159/68
--- NOTE | 2017-11-07 16:57 | Progress Note-Post Operative ---
Post-Operative Progess Note Surgeon (s)/Grill Chef (s) Surgeon IZZY CHOPRA DO Grill Chef: NA Pre-Operative Diagnosis GI BLEED Post-Operative Diagnosis BLEEDING RECTAL ULCER Procedure & Operative Findings Date of Procedure 11/07/17 Procedure Performed/Findings EGD, PARTIAL COLONOSCOPY WITH INJECTION OF EPINEPHRINE AND CAUTERIZATION OF ULCERATION FOR HEMOSTASIS Anesthesia Type PER MUSIC MINISTRIES DIRECTOR Estimated Blood Loss Estimated blood loss (mL): MINIMAL Specimens/Packing Specimens Removed NA IZZY CHOPRA DO Nov 07, 2017 16:57
[2017-11-07] MEDS ORDERED: EPINEPHrine INJECTION 1 MG/ML AMP IV PRN (17:30)
[2017-11-07 19:24] VITALS: BP 141/71
[2017-11-07] MEDS: VITAMIN D3 5,000 UNITS (CHOLECALCIFEROL ) CAPSULE PO SCH (20:25)
[2017-11-07] MEDS: ROSUVASTATIN 20 MG (CRESTOR) TABLET PO SCH (20:25)
[2017-11-07] MEDS: cloNIDine 0.1 MG (CATAPRES) TAB PO SCH (20:26)
[2017-11-07] MEDS ORDERED: inSUlin DETERMIR 1 UNIT/0.01 ML (LEVEMIR) CHARGE PER UNIT SQ SCH (21:00)
--- NOTE | 2017-11-07 23:19 | OPERATIVE REPORT ---
DATE OF SERVICE: 11/07/2017 PREOPERATIVE DIAGNOSIS: Gastrointestinal bleed. POSTOPERATIVE DIAGNOSIS: Bleeding rectal ulcer. PROCEDURE: EGD, partial colonoscopy with injection of epinephrine and cauterization of ulceration for hemostasis, attempting clip placement. SURGEON: Joseph Ralph DO. ANESTHESIA: Per BRIM POUNCING MACHINE OPERATOR. ESTIMATED BLOOD LOSS: Minimal. COMPLICATIONS: None. INDICATIONS: The patient is a 67-year-old female who was admitted for GI bleed. She has refused any blood products. She is a Jain. The patient was explained risks and benefits of procedure and wished to proceed with procedures. Consent was signed on the chart. DESCRIPTION OF PROCEDURE: The patient was taken to the endoscopy suite, placed in left lateral recumbent position. Timeout was performed. Scope was inserted in mouth, down the esophagus and into the stomach. At this time, the patient's oxygen saturation dropped to 10%, so the scope was withdrawn, we got her oxygen saturation back up to high 90s. The scope was then reinserted in the mouth, down the esophagus, stomach and into the duodenum. There were no polyps, masses or ulcerations within the duodenum. Scope was then slowly retracted back. There were no polyps, masses or ulcerations within the stomach. The scope was retroflexed noting no other pathology. Scope was returned to its normal position, slowly withdrawn to the distal esophagus. There were no polyps, masses or ulcerations. The scope was slowly retracted back to completely remove, noting no other pathology. Digital rectal exam was performed. There were no palpable polyps, masses or ulcerations. The scope was inserted in the rectum encountering significant load of blood clots and stool. The scope was then continued to be slowly inserted through the sigmoid, descending colon and approximately 3/[address] through the transverse colon. Throughout the entire transverse colon there was stool present. There were no signs of any bleeding. Within this, there was a large stool burden due to no prep except for fleets enema. The scope was then slowly retracted back. There were no visualized polyps, masses or ulcerations within the transverse colon, descending colon and sigmoid colon. Once in the distal portion of the sigmoid colon, I started seeing a little bit of blood. Copious amounts of irrigation was continued to be used throughout the entire colon and suction to get better visualization. Once in the rectum, large clot load present. These were evacuated with scope and also with digital rectal exam. On the left wall of the rectum, there was a small area that appears to be a small ulcerated bleeding site that is actively bleeding. A clip was attempted to be placed on this; however, the clip malfunctioned. Therefore, a 3 mL of epinephrine was used to inject around the bleeding site. This slowed it down significantly; however, it did have still continuous slight ooze from it. At this time, cautery was used to attempt hemostasis, which slowed it down even further and after this was performed, another milliliter of epinephrine was used to inject to the area and hemostasis was achieved. This was irrigated multiple times and suctioned, still having achieved hemostasis. At this time, some Surgicel was placed over this area and scope was then slowly removed. The patient tolerated the procedure well except for desaturation, which was discussed above. We will repeat her hemoglobin and followup. I did discuss transfusion with the patient and family previously which they do again declined. Job ID: [id number] DocumentID: [id number] Dictated Date: 11/07/2017 17:06:45 Manager Estate Date: 11/07/2017 23:19:01 Dictated By: DO AYDE ELLIS
[2017-11-08 00:25] VITALS: BP 138/67
[2017-11-08] MEDS: inSUlin ASPART (NovoLOG) 1 UNIT/0.01 ML (CHARGE PER UNIT) SC SCH ×4 (01:18→18:59)
[2017-11-08 04:00] VITALS: BP 133/64
[2017-11-08 05:24] LABS: MEAN PLATELET VOLUME 9.5 FL (7.4-10.4); RED BLOOD COUNT 1.84 10^6/uL (4.35-5.85); RED CELL DISTRIBUTION WIDTH 14.9 % (10.0-14.5); WHITE BLOOD COUNT 8.4 10^3/uL (4.3-11.0)
[2017-11-08 05:44] LABS: CALCIUM 8.1 MG/DL (8.5-10.1); CREATININE SERUM 1.76 MG/DL (0.60-1.30); POTASSIUM 4.6 MMOL/L (3.6-5.0)
[2017-11-08 05:58] LABS: HEMOGLOBIN 5.2 G/DL (11.5-16.0)
[2017-11-08] MEDS: MULTIVIT W/MINERALS TAB (THERAGRAN M) PO SCH (06:17)
[2017-11-08] MEDS: 1/2 NS W/KCL 20 MEQ/L 1,000 ML IV SCH ×4 (06:17→21:13)
[2017-11-08 08:41] VITALS: BP 123/61
[2017-11-08] MEDS: GABAPENTIN 100 MG (NEURONTIN) CAP PO SCH ×3 (08:46→20:07)
[2017-11-08] MEDS: FOLIC ACID 1 MG TAB PO SCH (08:46)
[2017-11-08] MEDS: hydrALAZINE (APRESOLINE) 25 MG TAB PO SCH ×3 (08:46→20:07)
[2017-11-08] MEDS: cloNIDine 0.1 MG (CATAPRES) TAB PO SCH ×2 (08:46→20:07)
[2017-11-08 12:30] VITALS: BP 101/63
--- NOTE | 2017-11-08 12:46 | Progress Note-Standard ---
Standard Progress Note Progress Notes/Assess & Plan Date Seen by Provider: Nov 08, 2017 Time Seen by Provider: 12:44 Progress/Assessment & Plan vital signs stable. Appears pale consistent with a hemoglobin of 5.2. Jehovah' s witnesses status prohibits transfusion. No more rectal bleeding. We'll observe. Final Diagnosis rectal bleeding with acute anemia DARLENE KILPATRICK MD Nov 08, 2017 12:46 pm
--- NOTE | 2017-11-08 15:24 | Physician Progress Note ---
Progress Note Assessment/Plan Date Seen by Provider: Nov 08, 2017 Time Seen by Provider: 14:55 Events since last exam Pt had the repair of rectum tear yesterday along with the cauterization of bleeding. No more BRBPR since admission. Hb dropped to 5.2 today. Normal WBC and Plt Pt is pale and in sleep when I walked into her room. Family reported that pt is comfortable. Assessment/Plan A/P 1. Acute lower GI bleeding while on Plavix and ASA which were on hold since admission 2. Anemia from GI bleeding and chronic renal failure. Pt got a dose of Aranesp 100mcg yesterday and it will be good for 2 weeks. She had a dose of Venofer yesterday and next dose will be tomorrow. 3. Protestant/no blood products 4. Morbid obese 5. h/o chronic osteomyelitis of the lower extremity 6. DM 7. recent h/o of cardiac arrest 8. Rectum tear, s/p repair 11/07/17. 9. Pt needs to go back to Dr Augustin for f/u once discharge. Vitals Last set of Vitals Signs Vital Signs Date Time Temp Pulse Resp B/P (MAP) Pulse Ox O2 Delivery O2 Flow Rate FiO2 11/08/17 12:30 98.4 65 16 101/63 (76) 96 Nasal Cannula 5.00 I&O I&O Intake and Output 11/08/17 00:00 Intake Total 4370 ml Output Total 2000 ml Balance 2370 ml Intake Oral 2270 ml IV Total 2100 ml Output Urine Total 1600 ml Estimated Blood Loss 400 ml # Bowel Movements 3 Daily Weight Change No Labs Laboratory Tests 11/07/17 18:09: Glucometer 271H 11/08/17 01:13: Glucometer 317H 11/08/17 05:18: White Blood Count 8.4, Red Blood Count 1.84L, Hemoglobin 5.2*L, Hematocrit 18*L , Mean Corpuscular Volume 98, Mean Corpuscular Hemoglobin 28, Mean Corpuscular Hemoglobin Concent 29L, Red Cell Distribution Width 14.9H, Platelet Count 220, Mean Platelet Volume 9.5, Sodium Level 140, Potassium Level 4.6, Chloride Level 107, Carbon Dioxide Level 25, Anion Gap 8, Blood Urea Nitrogen 50H, Creatinine 1.76H, Estimat Glomerular Filtration Rate 29, BUN/Creatinine Ratio 28, Glucose Level 135H, Calcium Level 8.1L 11/08/17 05:55: Glucometer 125H 11/08/17 11:40: Glucometer 133H Clinical Quality Measures DVT/VTE Risk/Contraindication: Risk Factor Score Per Nursin RFS Level Per Nursing on Admit: 4+=Very High AARON AMBROSIO MD Nov 08, 2017 15:24
[2017-11-08 16:00] VITALS: BP 104/60
--- NOTE | 2017-11-08 17:18 | Progress Note (SOAP) ---
Subjective Subjective/Events-last exam Pt resting without complaints other than fatigue this afternoon. Yesterday she had a partial colonoscopy with epinephrine injection and cauterization of ulceration in rectum for hemostasis. Pt denies pain, did have her oxygen increased to 5L [place]. Review of Systems Date Seen by Provider: Nov 08, 2017 Time Seen by Provider: 17:30 General: No Chills, No Night Sweats; Fatigue HEENT: No Head Aches, No Dysphasia Pulmonary: No Pleuritic Chest Pain Cardiovascular: Edema; No: Chest Pain, Palpitations Gastrointestinal: No: Nausea, Vomiting, Abdominal Pain Neurological: No: Change in speech, Confusion, Seizures Objective Exam Last Set of Vital Signs Vital Signs Date Time Temp Pulse Resp B/P (MAP) Pulse Ox O2 Delivery O2 Flow Rate FiO2 11/08/17 16:00 97.3 69 18 104/60 (75) 99 Nasal Cannula 5.00 Capillary Refill : Less Than 3 SecondsLess Than 3 Seconds I&O Intake and Output 11/08/17 00:00 Intake Total 4370 ml Output Total 2000 ml Balance 2370 ml Intake Oral 2270 ml IV Total 2100 ml Output Urine Total 1600 ml Estimated Blood Loss 400 ml # Bowel Movements 3 Daily Weight Change No General: Alert, Oriented X3, Cooperative, No Acute Distress HEENT: Atraumatic, EOMI, Mucous Memb Moist/[place] Neck: Supple, No Thyromegaly Lungs: Clear to Auscultation, Normal Air Movement Heart: Regular Rate, Normal S1, Normal S2 Abdomen: Normal Bowel Sounds, Soft, No Tenderness, No Masses Extremities: No Clubbing, No Cyanosis Skin: No Rashes, No Significant Lesion, Other (extremely pale) Neuro: Normal Speech, Normal Tone, Sensation Intact, Cranial Nerves 3-12 NL Psych/Mental Status: Mental Status NL, Mood NL Results/Procedures Lab Laboratory Tests 11/07/17 18:09: Glucometer 271H 11/08/17 01:13: Glucometer 317H 11/08/17 05:18: White Blood Count 8.4, Red Blood Count 1.84L, Hemoglobin 5.2*L, Hematocrit 18*L , Mean Corpuscular Volume 98, Mean Corpuscular Hemoglobin 28, Mean Corpuscular Hemoglobin Concent 29L, Red Cell Distribution Width 14.9H, Platelet Count 220, Mean Platelet Volume 9.5, Sodium Level 140, Potassium Level 4.6, Chloride Level 107, Carbon Dioxide Level 25, Anion Gap 8, Blood Urea Nitrogen 50H, Creatinine 1.76H, Estimat Glomerular Filtration Rate 29, BUN/Creatinine Ratio 28, Glucose Level 135H, Calcium Level 8.1L 11/08/17 05:55: Glucometer 125H 11/08/17 11:40: Glucometer 133H Radiology Date of Exam: 11/06/17 CHEST 1 VIEW, AP/PA ONLY INDICATION: Productive cough. COMPARISON: 10/16/2017. FINDINGS: Heart is enlarged. Bandlike opacities are present in the bilateral perihilar regions likely due to subsegmental atelectasis. Otherwise, visualized lungs are clear. Please note the posterior lower lobes are poorly evaluated by portable radiography. No pleural effusion or pneumothorax. Stable right IJ Port-A-Cath. IMPRESSION: 1. Bilateral perihilar subsegmental atelectasis. No imaging features of pneumonia. Date of Exam: 11/06/17 CT ABDOMEN/PELVIS WO PROCEDURE: CT abdomen and pelvis without contrast. TECHNIQUE: Multiple contiguous axial images were obtained through the abdomen and pelvis without the use of intravenous contrast. INDICATION: Abdominal pain. COMPARISON: 07/10/2013 FINDINGS: Evaluation of the abdominal viscera is mildly limited without contrast. Lower chest: Trace bilateral pleural effusions. Patchy consolidations within the bilateral lower lobes are subjacent to the effusions. Peritoneum: No free intraperitoneal air or fluid. Liver and biliary system: Unenhanced liver is normal. Cholecystectomy. Spleen and Pancreas: Spleen is normal. Unenhanced pancreas is grossly normal. Adrenals: Normal. tract: No renal or ureteral calculi. No obstructive uropathy. Hysterectomy. No adnexal mass. GI tract: Stomach is decompressed. No bowel obstruction. No pericolonic inflammatory changes. Normal appendix. Vasculature and Lymph nodes: Normal caliber aorta with moderate atherosclerotic plaquing. IVC filter is appropriately positioned in an infrarenal position. No abdominal or pelvic lymphadenopathy. Musculoskeletal: No concerning osseous lesion. IMPRESSION: 1. No urinary tract calculi or obstructive uropathy. 2. No bowel obstruction, colitis or diverticulitis. 3. Trace bilateral pleural effusions. Patchy airspace consolidations associated with effusions could be due to atelectasis or pneumonia, depending on clinical presentation. Assessment/Plan Assessment/Plan (1) GI bleeding Status: Acute Assessment & Plan: 11/07 -Hgb 8.7 on admission -consult to Dr. Ralph -plan for repeat H&H at 1300, then decision per Dr. Ralph on endoscopy now vs as outpatient -pt maintains refusal of blood and blood products 11/08 -Hgb 8.7 --> 7.9 --> 6.1 --> 5.2 -partial colonoscopy yesterday afternoon with rectal ulceration injected with epinephrine and cauterized for hemostasis -no further bleeding -pt has not has bowel movement today, reports Dr. Ralph expressed some concern that she would have further bleeding if bowel movement loosened hemostasis that was achieved yesterday -pt maintains refusal of blood and blood products, as well as her desire to remain full code Qualifiers: Qualified Codes: K92.2 - Gastrointestinal hemorrhage, unspecified (2) Anemia Status: Acute Assessment & Plan: 11/07 -8.7 --> 7.9 -pt extremely pale -declines blood or blood products -plan for repeat H&H at 1300 11/08 -Hgb 8.7 --> 7.9 --> 6.1 --> 5.2 -pt remains extremely pale, with increased oxygen requirement - now 5L per [place] -Hematology consulted for assistance with management of anemia, as pt declines blood or blood products -venofer yesterday, again tomorrow per hematology note -potential discharge in 24-48 hours, pending clearance from Dr. Ralph, with continued outpatient follow up with hematology Qualifiers: Qualified Codes: D62 - Acute posthemorrhagic anemia (3) BRBPR (bright red blood per rectum) Status: Resolved Assessment & Plan: 11/07 -consult to Dr. 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 Assessment & Plan: 11/07 -NPO currently -will resume home insulin and sliding scale when able to have diet ordered 11/08 -clear liquids per surgery, advance diet per their recommendations -glucose over last 24 hours: 271 - 317 - 135 - 125 (6) Hypertension Status: Chronic Assessment & Plan: 11/07 -resume home meds Qualifiers: Qualified Codes: I10 - Essential (primary) hypertension (7) Aortic valve sclerosis Status: Chronic (8) History of DVT (deep vein thrombosis) Status: Chronic Permanent Comment: IVC Filter in place Last Edited By: Sheyla Kwok on Nov 07, 2017 22:24 (9) Coronary artery disease Status: Chronic Qualifiers: Qualified Codes: I25.10 - Atherosclerotic heart disease of [place] coronary artery without angina pectoris (10) Presence of IVC filter Status: Chronic (11) Renal osteodystrophy Status: Chronic (12) Sleep apnea with use of nocturnal bilevel positive airway pressure (BPAP) Status: Chronic (13) Obesity hypoventilation syndrome Status: Chronic (14) History of cardiac arrest Permanent Comment: 10/15/17 - ROSC after 1 round ACLS Last Edited By: Sheyla Kwok on Nov 07, 2017 22:23 (15) DVT prophylaxis Status: Acute Assessment & Plan: 11/07 -pt with profound anemia, will hold on chemoprophylaxis at this time -[facility] Clinical Quality Measures DVT/VTE Risk/Contraindication: Risk Factor Score Per Nursin RFS Level Per Nursing on Admit: 4+=Very High Copy Copies To 1: [facility]/SHEYLA RENAE DO Nov 08, 2017 17:18
[2017-11-08 19:05] VITALS: BP 112/69
[2017-11-08] MEDS: ROSUVASTATIN 20 MG (CRESTOR) TABLET PO SCH (20:07)
[2017-11-08] MEDS: VITAMIN D3 5,000 UNITS (CHOLECALCIFEROL ) CAPSULE PO SCH (20:07)
[2017-11-08] MEDS: inSUlin DETERMIR 1 UNIT/0.01 ML (LEVEMIR) CHARGE PER UNIT SQ SCH (21:14)
[2017-11-09] VITALS: BP 115/72
[2017-11-09] MEDS: inSUlin ASPART (NovoLOG) 1 UNIT/0.01 ML (CHARGE PER UNIT) SC SCH ×4 (00:28→18:37)
[2017-11-09] MEDS: 1/2 NS W/KCL 20 MEQ/L 1,000 ML IV SCH (03:24)
[2017-11-09 04:00] VITALS: BP 110/68
[2017-11-09] MEDS: MULTIVIT W/MINERALS TAB (THERAGRAN M) PO SCH (05:41)
[2017-11-09 06:48] LABS: BASOPHILS % (AUTO) 0 % (0-10); EOSINOPHILS # (AUTO) 0.2 10^3/uL (0.0-0.3); EOSINOPHILS % (AUTO) 2 % (0-10); LYMPHOCYTES # (AUTO) 1.5 X 10^3 (1.0-4.0); LYMPHOCYTES % (AUTO) 16 % (12-44); MEAN CORPUSCULAR HEMOGLOBIN 28 PG (25-34); MEAN CORPUSCULAR HGB CONC 29 G/DL (32-36); MEAN CORPUSCULAR VOLUME 97 FL (80-99); MEAN PLATELET VOLUME 9.5 FL (7.4-10.4); MONOCYTES % (AUTO) 10 % (0-12); NEUTROPHILS # (AUTO) 6.5 X 10^3 (1.8-7.8); NEUTROPHILS % (AUTO) 71 % (42-75); PLATELET COUNT 267 10^3/uL (130-400); WHITE BLOOD COUNT 9.1 10^3/uL (4.3-11.0)
[2017-11-09 06:49] LABS: HEMATOCRIT 18 % (35-52); HEMOGLOBIN 5.3 G/DL (11.5-16.0)
[2017-11-09 07:13] LABS: CALCIUM 8.1 MG/DL (8.5-10.1); CREATININE SERUM 1.91 MG/DL (0.60-1.30); MAGNESIUM 1.4 MG/DL (1.8-2.4); POTASSIUM 5.5 MMOL/L (3.6-5.0)
[2017-11-09 08:08] VITALS: BP 173/66
[2017-11-09] MEDS ORDERED: 1/2 NS IV SOLUTION 1,000 ML IV SCH (09:15)
[2017-11-09] MEDS: MAGNESIUM 1 GM/100 ML IVPB 100 ML IV SCH ×2 (09:40→09:41)
[2017-11-09] MEDS: GABAPENTIN 100 MG (NEURONTIN) CAP PO SCH ×2 (09:42→13:21)
[2017-11-09] MEDS: FOLIC ACID 1 MG TAB PO SCH (09:42)
[2017-11-09] MEDS: cloNIDine 0.1 MG (CATAPRES) TAB PO SCH (09:42)
[2017-11-09] MEDS: hydrALAZINE (APRESOLINE) 25 MG TAB PO SCH ×2 (09:42→13:21)
--- NOTE | 2017-11-09 11:30 | Physician Progress Note ---
Progress Note Assessment/Plan Date Seen by Provider: Nov 09, 2017 Time Seen by Provider: 11:20 Events since last exam Pt is very weak and pale, in sleep. Appeared comfortable No noticeable bleeding over last 24hrs. Assessment/Plan A/P 1. Acute lower GI bleeding while on Plavix and ASA which were on hold since admission 2. Anemia from GI bleeding and chronic renal failure. Pt got a dose of Aranesp 100mcg yesterday and it will be good for 2 weeks. She will get her 2nd dose of Venofer today. It will take some times to recover. Hb stable today at 5.3. 3. Muslim/no blood products 4. Morbid obese 5. h/o chronic osteomyelitis of the lower extremity 6. DM 7. recent h/o of cardiac arrest 8. Rectum ulceration, s/p repair 11/07/[address] Ralph. 9. Pt needs to go back to Dr Augustin for f/u once discharge. Vitals Last set of Vitals Signs Vital Signs Date Time Temp Pulse Resp B/P (MAP) Pulse Ox O2 Delivery O2 Flow Rate FiO2 11/09/17 08:08 97.0 72 20 173/66 (101) 95 Nasal Cannula 5.00 I&O I&O Intake and Output 11/09/17 00:00 Intake Total 4370 ml Output Total 1755 ml Balance 2615 ml Intake Oral 1370 ml IV Total 3000 ml Output Urine Total 1755 ml Labs Laboratory Tests 11/08/17 11:40: Glucometer 133H 11/08/17 18:41: Glucometer 213H 11/08/17 20:43: Glucometer 245H 11/09/17 00:24: Glucometer 207H 11/09/17 05:40: Glucometer 174H 11/09/17 06:32: White Blood Count 9.1, Red Blood Count 1.90L, Hemoglobin 5.3*L, Hematocrit 18*L , Mean Corpuscular Volume 97, Mean Corpuscular Hemoglobin 28, Mean Corpuscular Hemoglobin Concent 29L, Red Cell Distribution Width 15.0H, Platelet Count 267, Mean Platelet Volume 9.5, Neutrophils (%) (Auto) 71, Lymphocytes (%) (Auto) 16, Monocytes (%) (Auto) 10, Eosinophils (%) (Auto) 2, Basophils (%) (Auto) 0, Neutrophils # (Auto) 6.5, Lymphocytes # (Auto) 1.5, Monocytes # (Auto) 1.0, Eosinophils # (Auto) 0.2, Basophils # (Auto) 0.0, Sodium Level 136, Potassium Level 5.5H, Chloride Level 105, Carbon Dioxide Level 26, Anion Gap 5, Blood Urea Nitrogen 54H, Creatinine 1.91H, Estimat Glomerular Filtration Rate 26, BUN/ Creatinine Ratio 28, Glucose Level 168H, Calcium Level 8.1L, Magnesium Level 1.4L Clinical Quality Measures DVT/VTE Risk/Contraindication: Risk Factor Score Per Nursin RFS Level Per Nursing on Admit: 4+=Very High AARON AMBROSIO MD Nov 09, 2017 11:30
--- NOTE | 2017-11-09 11:58 | Progress Note ---
Subjective Date Seen by Provider: Nov 09, 2017 Time Seen by Provider: 08:56 Subjective/Events-last exam Patient resting. Feeling weak. No other complaints. No more bloody bm. Hgb slightly up from yesterday. No family at bedside. Denies n/v fever sweats chills shortness of breath or chest pain. Objective Exam Vital Signs Date Time Temp Pulse Resp B/P (MAP) Pulse Ox O2 Delivery O2 Flow Rate FiO2 11/09/17 08:08 97.0 72 20 173/66 (101) 95 Nasal Cannula 5.00 11/09/17 08:00 95 Nasal Cannula 5.00 11/09/17 07:16 Nasal Cannula 4.00 11/09/17 04:00 97.1 83 19 110/68 (82) 91 Nasal Cannula 5.00 11/09/17 00:00 97.5 70 19 115/72 (86) 95 Nasal Cannula 5.00 11/08/17 20:07 Nasal Cannula 4.00 11/08/17 19:05 98.9 76 16 112/69 (83) 98 Nasal Cannula 5.00 11/08/17 16:00 97.3 69 18 104/60 (75) 99 Nasal Cannula 5.00 11/08/17 12:30 98.4 65 16 101/63 (76) 96 Nasal Cannula 5.00 I & O 11/09/17 07:00 Intake Total 4770 ml Output Total 1105 ml Balance 3665 ml Capillary Refill : Less Than 3 SecondsLess Than 3 Seconds General Appearance: No Apparent Distress, Other HEENT: PERRL/EOMI Neck: Non Tender, Supple Respiratory: No Accessory Muscle Use, No Respiratory Distress Cardiovascular: Regular Rate, Rhythm Gastrointestinal: normal bowel sounds, non tender, soft, no pulsatile mass Neurologic/Psychiatric: Alert Skin: Pallor Results Lab Laboratory Tests 11/08/17 18:41: Glucometer 213H 11/08/17 20:43: Glucometer 245H 11/09/17 00:24: Glucometer 207H 11/09/17 05:40: Glucometer 174H 11/09/17 06:32: White Blood Count 9.1, Red Blood Count 1.90L, Hemoglobin 5.3*L, Hematocrit 18*L , Mean Corpuscular Volume 97, Mean Corpuscular Hemoglobin 28, Mean Corpuscular Hemoglobin Concent 29L, Red Cell Distribution Width 15.0H, Platelet Count 267, Mean Platelet Volume 9.5, Neutrophils (%) (Auto) 71, Lymphocytes (%) (Auto) 16, Monocytes (%) (Auto) 10, Eosinophils (%) (Auto) 2, Basophils (%) (Auto) 0, Neutrophils # (Auto) 6.5, Lymphocytes # (Auto) 1.5, Monocytes # (Auto) 1.0, Eosinophils # (Auto) 0.2, Basophils # (Auto) 0.0, Sodium Level 136, Potassium Level 5.5H, Chloride Level 105, Carbon Dioxide Level 26, Anion Gap 5, Blood Urea Nitrogen 54H, Creatinine 1.91H, Estimat Glomerular Filtration Rate 26, BUN/ Creatinine Ratio 28, Glucose Level 168H, Calcium Level 8.1L, Magnesium Level 1.4L Assessment/Plan Assessment/Plan Assessment/Plan Gi bleed lower -rectal ulceration s/p egd colonoscopy with injection of epi anemia secondary to lower gi bleed obesity obesity [place] patient refusing transfusions patient has not had any further bleeding and hgb stable will take time for hgb to return to normal patient was discussed transfusion which she has declined no surgical intervention Clinical Quality Measures DVT/VTE Risk/Contraindication: Risk Factor Score Per Nursin RFS Level Per Nursing on Admit: 4+=Very High IZZY CHOPRA DO Nov 09, 2017 11:58
[2017-11-09 12:00] VITALS: BP 117/57
--- NOTE | 2017-11-09 12:38 | Discharge Summary ---
Diagnosis/Chief Complaint Date of Admission Nov 06, 2017 at 22:56 Date of Discharge 11/09/17 Admission Diagnosis Admission Diagnosis GI Bleed Anemia Chronic Kidney Disease, Stage 4 Super Morbid Obesity, BMI 60-70 Type II Diabetes with Complication Hx of DVT Discharge Diagnosis (1) GI bleeding Status: Acute Assessment & Plan: 11/07 -Hgb 8.7 on admission -consult to Dr. Chopra -plan for repeat H&H at 1300, then decision per Dr. Chopra on endoscopy now vs as outpatient -pt maintains refusal of blood and blood products 11/08 -Hgb 8.7 --> 7.9 --> 6.1 --> 5.2 -partial colonoscopy yesterday afternoon with rectal ulceration injected with epinephrine and cauterized for hemostasis -no further bleeding -pt has not has bowel movement today, reports Dr. Chopra expressed some concern that she would have further bleeding if bowel movement loosened hemostasis that was achieved yesterday -pt maintains refusal of blood and blood products, as well as her desire to remain full code 11/09 -Hgb 8.7 --> 7.9 --> 6.1 --> 5.2 --> 5.3 -continues to have no further bleeding per rectum -discussed with Dr. Chopra, okay to discharge patient back to [facility] today Qualifiers: Qualified Codes: K92.2 - Gastrointestinal hemorrhage, unspecified (2) Anemia Status: Acute Assessment & Plan: 11/07 -8.7 --> 7.9 -pt extremely pale -declines blood or blood products -plan for repeat H&H at 1300 / -Hgb 8.7 --> 7.9 --> 6.1 --> 5.2 -pt remains extremely pale, with increased oxygen requirement - now 5L per [place] -Hematology consulted for assistance with management of anemia, as pt declines blood or blood products -venofer yesterday, again tomorrow per hematology note -potential discharge in 24-48 hours, pending clearance from Dr. Chopra, with continued outpatient follow up with hematology 11/09 -Hgb 8.7 --> 7.9 --> 6.1 --> 5.2 --> 5.3 -remains pale, but does appear improved from yesterday -continues to require 4-5L per [place] -Venofer 200 mg q48H x5 total doses, will give 2nd dose today prior to discharge and continue with 3 more doses on 11/11, 11/13 and 11/15 -pt to follow up with Dr. Augustin after discharge -pt's family has requested a hospice consult with [facility]; will place order to have them meet with patient and family at [facility] Qualifiers: Qualified Codes: D62 - Acute posthemorrhagic anemia (3) BRBPR (bright red blood per rectum) Status: Resolved Assessment & Plan: 11/07 -consult to Dr. 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 Assessment & Plan: 11/07 -NPO currently -will resume home insulin and sliding scale when able to have diet ordered 11/08 -clear liquids per surgery, advance diet per their recommendations -glucose over last 24 hours: 271 - 317 - 135 - 125 11/09 -glucose over last 24 hours: 125 - 133 - 213 - 245 - 207 - 174 - 168 (6) Hypertension Status: Chronic Assessment & Plan: 11/07 -resume home meds Qualifiers: Qualified Codes: I10 - Essential (primary) hypertension (7) Aortic valve sclerosis Status: Chronic (8) History of DVT (deep vein thrombosis) Status: Chronic Permanent Comment: IVC Filter in place Last Edited By: Sheyla Kwok on Nov 07, 2017 22:24 (9) Coronary artery disease Status: Chronic Qualifiers: Qualified Codes: I25.10 - Atherosclerotic heart disease of [place] coronary artery without angina pectoris (10) Presence of IVC filter Status: Chronic (11) Renal osteodystrophy Status: Chronic (12) Sleep apnea with use of nocturnal bilevel positive airway pressure (BPAP) Status: Chronic (13) Obesity hypoventilation syndrome Status: Chronic (14) History of cardiac arrest Permanent Comment: 10/15/17 - ROSC after 1 round ACLS Last Edited By: Sheyla Kwok on Nov 07, 2017 22:23 (15) DVT prophylaxis Status: Acute Assessment & Plan: 11/07 -pt with profound anemia, will hold on chemoprophylaxis at this time -SCDs Chief Complaint/HPI Chief Complaint/HPI 67 year old female presented to ED via EMS with camelia bright red bleeding per rectum. Pt's medical history is significant and extensive and includes that pt is a Gnosticism and does not want to receive any blood or blood products. [facility] report from jail, pt's bleeding began earlier yesterday evening. She has not been at the facility very long; the patient was living independently in an apartment, had a hospitalization for debridement of osteomyelitis of left fourth toe with subsequent short stay in inpatient rehab at this facility. On the day of discharge, she was preparing to go home, and experienced cardiac arrest on 10/15/17. She had approx 1 round of ACLS with ROSC and was admitted to the ICU; she was ultimately transferred to a facility with nephrology available. At discharge, which appears to have been early last week, she was released to a fdc facility. On arrival in ED last night, pt was noted to have continued camelia rectal bleeding. She was placed in observation overnight with a consult to General Surgery today for further evaluation of her bleeding. Patient does state today that she does not want to be DNR and would like to be a FULL CODE. Will change code status, as pt is very awake and alert. Discharge Summary-Simple/Stand Consultations IZZY CHOPRA DO Discharge Physical Examination Allergies: Coded Allergies: Bacitracin Zinc (Unverified Allergy, Unknown, 07/11/17) Penicillins (Unverified Allergy, Unknown, HAS RECEIVED ROCEPHIN DURING PREVIOUS ADMIT, 07/11/17) bacitracin (Unverified Allergy, Unknown, 07/11/17) colistimethate sodium (Unverified Allergy, Unknown, 07/11/17) gramicidin D (Unverified Allergy, Unknown, 07/11/17) neomycin sulfate (Unverified Allergy, Unknown, 07/11/17) polymyxin B (Unverified Allergy, Unknown, 07/11/17) polymyxin B sulfate (Unverified Allergy, Unknown, 07/11/17) pramoxine HCl (Unverified Allergy, Unknown, 07/11/17) Vitals & I&Os Vital Sign - Last 12Hours Date Time Temp Pulse Resp B/P (MAP) Pulse Ox O2 Delivery O2 Flow Rate FiO2 11/09/17 08:08 97.0 72 20 173/66 (101) 95 Nasal Cannula 5.00 Intake and Output 11/09/17 00:00 Intake Total 3370 ml Output Total 605 ml Balance 2765 ml General Appearance: Alert, Oriented X3, Cooperative, No Acute Distress HEENT: Atraumatic, EOMI, Mucous Memb Moist/[place] Respiratory: Clear to Auscultation, Other (diminished) Cardiovascular: Regular Rate, Normal S1, Normal S2 Abdominal: Normal Bowel Sounds, Soft, No Tenderness Extremities: No Clubbing, No Cyanosis, Other (bilateral lower extremity edema) Skin: No Rashes, No Significant Lesion, Other (extremely pale) Neuro: Normal Speech, Normal Tone, Sensation Intact, Cranial Nerves 3-12 NL Psych/Mental Status: Mental Status NL, Mood NL Hospital Course See final discharge diagnosis. Radiology Reviewed Date of Exam: 11/06/17 CHEST 1 VIEW, AP/PA ONLY INDICATION: Productive cough. COMPARISON: 10/16/2017. FINDINGS: Heart is enlarged. Bandlike opacities are present in the bilateral perihilar regions likely due to subsegmental atelectasis. Otherwise, visualized lungs are clear. Please note the posterior lower lobes are poorly evaluated by portable radiography. No pleural effusion or pneumothorax. Stable right IJ Port-A-Cath. IMPRESSION: 1. Bilateral perihilar subsegmental atelectasis. No imaging features of pneumonia. Date of Exam: 11/06/17 CT ABDOMEN/PELVIS WO PROCEDURE: CT abdomen and pelvis without contrast. TECHNIQUE: Multiple contiguous axial images were obtained through the abdomen and pelvis without the use of intravenous contrast. INDICATION: Abdominal pain. COMPARISON: 07/10/2013 FINDINGS: Evaluation of the abdominal viscera is mildly limited without contrast. Lower chest: Trace bilateral pleural effusions. Patchy consolidations within the bilateral lower lobes are subjacent to the effusions. Peritoneum: No free intraperitoneal air or fluid. Liver and biliary system: Unenhanced liver is normal. Cholecystectomy. Spleen and Pancreas: Spleen is normal. Unenhanced pancreas is grossly normal. Adrenals: Normal. tract: No renal or ureteral calculi. No obstructive uropathy. Hysterectomy. No adnexal mass. GI tract: Stomach is decompressed. No bowel obstruction. No pericolonic inflammatory changes. Normal appendix. Vasculature and Lymph nodes: Normal caliber aorta with moderate atherosclerotic plaquing. IVC filter is appropriately positioned in an infrarenal position. No abdominal or pelvic lymphadenopathy. Musculoskeletal: No concerning osseous lesion. IMPRESSION: 1. No urinary tract calculi or obstructive uropathy. 2. No bowel obstruction, colitis or diverticulitis. 3. Trace bilateral pleural effusions. Patchy airspace consolidations associated with effusions could be due to atelectasis or pneumonia, depending on clinical presentation. Discharge Condition at discharge stable Instructions to patient/family Please see electronic discharge instructions given to patient. Discharge Medications Reviewed and agree with Discharge Medication list on patient's Discharge Instruction sheet Clinical Quality Measures DVT/VTE Risk/Contraindication: Risk Factor Score Per Nursin RFS Level Per Nursing on Admit: 4+=Very High Copy Copies To 1: [facility]/SHEYLA RENAE DO Nov 09, 2017 12:38
[2017-11-09] MEDS ORDERED: IRON100V2 IV (12:42)
--- NOTE | 2017-11-09 12:50 | Discharge Inst-Skilled Nursing ---
Discharge Inst-Skilled NF Patient Instructions Patient Problems: HTN HERNAN on bipap IDDM - last HgbA1C 11.3 on 2017 Stage 4 CKD baseline Cr 2-2.5 h/o multiple TIAs h/o DVT, IVC filter in place Iron deficiency anemia Renal osteodystrophy CAD s/p cardiac arrest with ROSC 10/15/17 aortic valve sclerosis polyneuropathy diabetic retinopathy Morbid Obesity, BMI 60-70 Acute GI Bleed - Resolved 11/07/17 Goal: Strengthening Safety Patient Instructions: Medications as prescribed Participation in therapies as able Follow up appts as directed Consult/Follow Up/Orders Follow up appt.: Shira RUTLEDGE will see you at [facility] next week Follow [facility] Venofer Infusions Q48 hours x3 more doses, 200 mg - due 11/11, 11/13, 11/15 if unable to be done at [facility] Skilled NF Admit to: [facility] Certifications SNF I certify that SNF services are required to be given on an inpatient basis because of the above named patient's need for fci care on a continuing basis for the conditions(s) for which he/she was receiving inpatient hospital services prior to his/her transfer to the SNF. [facility] Facility Order: Nursing Services, Catering Driver-Evaluate & Treat, Physical Therapy-Evaluate & Treat, Wound Care-Eval/Treat (heel wound, right side) Discharge Diet: Low Sodium Diet, ADA Diet Daily Activity as Tolerated: Yes New & Resume Previous Orders New & Resume Previous Orders H&H on 11/10/17 CBC on 11/13/17 Hold Plavix until instructed to resume by either Manish RUTLEDGE or Dr. Augustin Resume CPAP when asleep with previous settings Oxygen 4-5L per NC while awake to keep sats >90% Consult to [facility] per family request If blood sugar >400, give additional 10 units Novalog Contact physician for glucose >500 or <60 that does not come up with treatment per facility's hypoglycemia protocol Low Sodium, 60 CHO Diabetic Diet Routine Vitals Discharge Medications New, Converted or Re-Newed RX: RX on Chart New Medications: Iron Sucrose Complex (Venofer) 200 Mg/10 Ml Vial 200 MG IV Q48H for 7 Days, #3 VIAL Dose #3 at 1430 on 11/11 Dose #4 at 1430 on 11/13 Dose #5 at 1430 on 11/15 Continued Medications: Acetaminophen (Acetaminophen ER) 650 Mg Tablet.er 1300 MG PO Q8H PRN for PAIN-MILD, TAB Arginine (Arginine) 2,000 Mg Powd.pack 2000 MG PO TID, EACH Aspirin (Aspir 81) 81 Mg Tablet.dr 81 MG PO DAILY, TAB Brinzolamide/Brimonidine Tart (Simbrinza 1%-0.2% Eye Drops) 8 Ml Drops.susp 1 DROPS OU TID, DROPS Cholecalciferol (Vitamin D3) (Vitamin D3) 5,000 Unit Capsule 5000 UNITS PO HS, CAP Clonidine HCl (Clonidine HCl) 0.3 Mg Tablet 0.3 MG PO BID, TAB Gabapentin (Gabapentin) 100 Mg Capsule 100 MG PO TID, CAP Hydralazine HCl (Hydralazine HCl) 25 Mg Tablet 25 MG PO TID, TAB Insulin Aspart (Novolog Flexpen) 300 Units/3 Ml Solution 9 UNITS SC AC, EA Insulin Detemir (Levemir Flextouch) 100 Unit/1 Ml Insuln.pen 20 UNITS SC BID, EA Loratadine (Alavert) 10 Mg Tab.rapdis 10 MG PO, TAB Magnesium Oxide (Magnesium) 250 Mg Tablet 250 MG PO, TAB Multivitamin (Multi-Vitamin Daily) 1 Each Tablet 1 EACH PO DAILY, TAB [place]-3/Dha/Epa/Fish Oil (Fish Oil 1,000 mg Softgel) 1 Each Capsule 1000 MG PO TID, CAP Rosuvastatin Calcium (Rosuvastatin Calcium) 20 Mg Tablet 20 MG PO HS, TAB Torsemide (Torsemide) 20 Mg Tablet 20 MG PO BID, TAB Discontinued Medications: Clopidogrel Bisulfate (Clopidogrel) 75 Mg Tablet 75 MG PO DAILY, TAB Sheyla Stratton Nov 09, 2017 12:44 SHEYLA STRATTON DO Nov 09, 2017 12:45
[2017-11-09] MEDS: IRON SUCROSE 200 MG/10 ML (VENOFER) VIAL IV SCH (13:30)
[2017-11-09 16:14] VITALS: BP 133/57
[2017-11-09 19:20] VITALS: BP 133/57
== END 2017-11-09 19:27 | DRG 394 ==
LOC: EDUNIT# 19:45 → ER 19:46 → 4TH 22:56 → UNDOADMOB 22:56 → 4TH 23:30 → OBSVTOIN 11-08 17:15 → UNDODISOB 11-09 19:27
PROVIDERS: ADMIT Family Medicine; ATTEND Family Medicine
PROC: 0DJ08ZZ Inspection of Upper Intestinal Tract, Via Natural or Artificial Opening Endoscopic (ICD-10-PCS; principal; 2017-11-07 15:30)
PROC: 0D5P8ZZ Destruction of Rectum, Via Natural or Artificial Opening Endoscopic (ICD-10-PCS; 2017-11-07 15:30)
DX: K62.6 Ulcer of anus and rectum (principal); K92.2 Gastrointestinal hemorrhage, unspecified; N18.4 Chronic kidney disease, stage 4 (severe); D62 Acute posthemorrhagic anemia; E66.2 Morbid (severe) obesity with alveolar hypoventilation; Z68.44 Body mass index [BMI] 60.0-69.9, adult; F17.210 Nicotine dependence, cigarettes, uncomplicated; E11.49 Type 2 diabetes mellitus with other diabetic neurological complication; I12.9 Hypertensive chronic kidney disease with stage 1 through stage 4 chronic kidney disease, or unspecified chronic kidney disease; E11.319 Type 2 diabetes mellitus with unspecified 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 edema; I25.10 Atherosclerotic heart disease of native coronary artery without angina pectoris; E11.42 Type 2 diabetes mellitus with diabetic polyneuropathy; I35.8 Other nonrheumatic aortic valve disorders; N25.0 Renal osteodystrophy; Z53.1 Procedure and treatment not carried out because of patient's decision for reasons of belief and group pressure; Z79.84 Long term (current) use of oral hypoglycemic drugs; Z79.01 Long term (current) use of anticoagulants; Z86.73 Personal history of transient ischemic attack (TIA), and cerebral infarction without residual deficits; Z86.718 Personal history of other venous thrombosis and embolism
CPT/HCPCS: 36415; 51702; 71045; 74176; 80048; 80053; 81000; 82728; 82962; 83540; 83735; 85014; 85018; 85025; 85027; G0378

== ENCOUNTER → 2018-01-15 | Outpatient (CLI) | payer MEDICARE, MEDICAID ==
[~2018-01-15] MED LIST changes: +ACET-2422 PO; +AMLO5TAB7 PO; +ASPI-586 PO; +CLON0.3T PO; -FLAX1000 PO; +FLAX10004 PO; +IRON100V2 IV; -LOSA100T28 PO; +LOSA100T8 PO; +MAGN250T13 PO; +TORS20TA3 PO
--- NOTE | 2018-01-15 10:14 | Diagnostic Imaging Report ---
Indication: Back pain and inability to bear weight AP and lateral views of the lumbar spine are obtained. Lumbar spinal curvature and alignment are unremarkable. Vertebral body heights and disc spaces are maintained. There is no evidence of fracture. Inferior vena cava filter is noted. There is also aortoiliac atherosclerotic calcification. Impression: No radiographic evidence of acute lumbar spinal abnormality. Dictated by: Dictated on workstation # [id number]
--- NOTE | 2018-01-15 11:10 | Diagnostic Imaging Report ---
PROCEDURE: MRI lumbar spine. TECHNIQUE: Multiplanar, multisequence MRI of the lumbar spine was performed without contrast. INDICATION: Fall and pain. COMPARISON: No prior MRI lumbar spine studies are available for comparison. FINDINGS: Curvature and alignment of the lumbar spine is normal. The vertebral body heights are maintained. There are areas of minimal marrow edema involving the anterior inferior aspect of the L5 vertebral body. Slightly larger area of edema in the anterior aspect of the L4 vertebral body is seen. There is some minimal edema involving the anterior aspect of the S1 vertebral body. No loss of height of the vertebral bodies is seen. Intervertebral disc demonstrates fairly normal height and signal intensity. Conus is unremarkable at the L1 level. T12-L1: No central canal or neural foraminal stenosis is identified. L1-2: Unremarkable. L2-3: Unremarkable. L3-4: Minimal ligamentous thickening is seen but no central canal or neural foraminal stenosis is identified. L4-5: There are degenerative facet changes. Central canal is widely patent. Neural foramina are patent. L5-S1: Degenerative facet disease is seen. Central canal and neural foramina are widely patent. Paraspinous tissues are unremarkable. IMPRESSION: Lower lumbar degenerative facet disease. No focal disc protrusion, central canal or neural foraminal stenosis is seen. There is mild marrow edema present at the L4, L5 and S1 levels which may be reactive marrow edema from minimal degenerative change. Study is otherwise unremarkable. Dictated by: Dictated on workstation # [id number]
--- NOTE | 2018-01-15 11:24 | Diagnostic Imaging Report ---
PROCEDURE: US carotid duplex, bilateral. TECHNIQUE: Multiple real-time grayscale images were obtained over the carotid arteries in various projections, bilaterally. Additional duplex Doppler and color Doppler images were also obtained. INDICATION: Carotid artery disease. FINDINGS: There is mild plaquing at the proximal internal carotid arteries bilaterally. Velocities are normal bilaterally. No velocity elevation or stenosis is identified. Both vertebral arteries show antegrade flow. IMPRESSION: Mild bilateral carotid plaque. There is no evidence of a hemodynamically significant stenosis. Parameters based on the consensus panel Murphy-Scale and Doppler ultrasound criteria published March 2003, Radiology, Volume 229. DOPPLER (peak systolic velocity M/S Right Left CCA .62 .67 ICA Proximal 1.12 .58 ICA Mid .79 .72 ICA Distal .83 .84 RATIO 1.8 1.2 ECA 1.36 .98 VERT .65 .54 Dictated by: Dictated on workstation # [id number]
== END ==
LOC: RAD 08:43
PROVIDERS: ATTEND Nurse Practitioner Community Health
DX: I65.23 Occlusion and stenosis of bilateral carotid arteries (principal); M47.816 Spondylosis without myelopathy or radiculopathy, lumbar region; R60.0 Localized edema; W19.XXXA Unspecified fall, initial encounter
CPT/HCPCS: 72100; 72148; 93880

== ENCOUNTER 2018-01-23 08:56 | Outpatient (RCR) | payer MEDICARE, MEDICAID ==
[2018-01-09 09:54] LABS: BASOPHILS % (AUTO) 1 % (0-10); EOSINOPHILS # (AUTO) 0.2 10^3/uL (0.0-0.3); EOSINOPHILS % (AUTO) 2 % (0-10); HEMATOCRIT 31 % (35-52); HEMOGLOBIN 9.2 G/DL (11.5-16.0); LYMPHOCYTES # (AUTO) 1.7 X 10^3 (1.0-4.0); LYMPHOCYTES % (AUTO) 24 % (12-44); MEAN CORPUSCULAR HEMOGLOBIN 27 PG (25-34); MEAN CORPUSCULAR HGB CONC 30 G/DL (32-36); MEAN CORPUSCULAR VOLUME 91 FL (80-99); MONOCYTES # (AUTO) 0.7 X 10^3 (0.0-1.0); MONOCYTES % (AUTO) 9 % (0-12); NEUTROPHILS # (AUTO) 4.6 X 10^3 (1.8-7.8); NEUTROPHILS % (AUTO) 65 % (42-75); PLATELET COUNT 341 10^3/uL (130-400); RED BLOOD COUNT 3.43 10^6/uL (4.35-5.85); WHITE BLOOD COUNT 7.1 10^3/uL (4.3-11.0)
[2018-01-09 10:10] LABS: ALBUMIN 3.2 GM/DL (3.2-4.5); BILIRUBIN,TOTAL 0.2 MG/DL (0.1-1.0); CALCIUM 10.3 MG/DL (8.5-10.1); CREATININE SERUM 2.68 MG/DL (0.60-1.30); POTASSIUM 4.2 MMOL/L (3.6-5.0); TOTAL PROTEIN 7.5 GM/DL (6.4-8.2)
[2018-01-09 11:09] LABS: ABSOLUTE RETIC # 50 10e9/L (24-90); RETICULOCYTE % 1.45 % (0.50-2.40)
[~2018-01-23 08:56] MED LIST changes: +DARBEPOETIN 10 MCG/0.4 ML ARANESP IJ SCH
[2018-01-23 09:13] LABS: ABSOLUTE RETIC # 47 10e9/L (24-90); BASOPHILS % (AUTO) 0 % (0-10); EOSINOPHILS # (AUTO) 0.2 10^3/uL (0.0-0.3); EOSINOPHILS % (AUTO) 2 % (0-10); HEMATOCRIT 30 % (35-52); HEMOGLOBIN 9.3 G/DL (11.5-16.0); LYMPHOCYTES # (AUTO) 1.8 X 10^3 (1.0-4.0); LYMPHOCYTES % (AUTO) 22 % (12-44); MEAN CORPUSCULAR HEMOGLOBIN 27 PG (25-34); MEAN CORPUSCULAR HGB CONC 31 G/DL (32-36); MEAN CORPUSCULAR VOLUME 88 FL (80-99); MEAN PLATELET VOLUME 8.4 FL (7.4-10.4); MONOCYTES # (AUTO) 0.7 X 10^3 (0.0-1.0); MONOCYTES % (AUTO) 8 % (0-12); NEUTROPHILS # (AUTO) 5.4 X 10^3 (1.8-7.8); NEUTROPHILS % (AUTO) 67 % (42-75); PLATELET COUNT 277 10^3/uL (130-400); RED BLOOD COUNT 3.45 10^6/uL (4.35-5.85); RED CELL DISTRIBUTION WIDTH 16.2 % (10.0-14.5); RETICULOCYTE % 1.36 % (0.50-2.40); WHITE BLOOD COUNT 8.1 10^3/uL (4.3-11.0)
== END 2018-02-04 | disposition home or self-care (01) ==
LOC: ONC 08:56
PROVIDERS: ATTEND Internal Medicine Hematology & Oncology
DX: N18.4 Chronic kidney disease, stage 4 (severe) (principal); D63.1 Anemia in chronic kidney disease; I10 Essential (primary) hypertension; E11.9 Type 2 diabetes mellitus without complications; E78.5 Hyperlipidemia, unspecified; G47.33 Obstructive sleep apnea (adult) (pediatric); I25.10 Atherosclerotic heart disease of native coronary artery without angina pectoris; E66.01 Morbid (severe) obesity due to excess calories; Z68.43 Body mass index [BMI] 50.0-59.9, adult; Z79.4 Long term (current) use of insulin; Z79.82 Long term (current) use of aspirin; Z79.899 Other long term (current) drug therapy
CPT/HCPCS: 36415; 36591; 80053; 82728; 85025; 85045; 96372

== ENCOUNTER → 2018-01-31 | Outpatient (CLI) | payer MEDICARE, MEDICAID ==
[~2018-01-31] MED LIST changes: -DARBEPOETIN 10 MCG/0.4 ML ARANESP IJ SCH
--- NOTE | 2018-01-31 15:02 | Diagnostic Imaging Report ---
EXAMINATION: AP and lateral chest at 1:55 p.m. INDICATION: Productive cough. FINDINGS: The cardiomegaly and the bands of atelectasis/infiltrate involving each mid lung seen on the prior study of 11/06/2017 are again evident and no different. Consequently, these abnormal parenchymal densities may well be long-standing in nature. There is no new area of pneumonia identified, and there is no sign of a pleural effusion. The mediastinum is not widened. The osseous structures are intact. The right-sided Port-A-Cath remains in good position. IMPRESSION: There are persistent bands of increased density in each mid lung. These findings are more likely due to chronic atelectasis/scar formation than to an acute abnormality. There is no new area of pneumonia atelectasis or pleural fluid identified. Dictated by: Dictated on workstation # [id number]
== END ==
LOC: RAD 12:49
PROVIDERS: ATTEND Nurse Practitioner Family
DX: J98.4 Other disorders of lung (principal); J30.9 Allergic rhinitis, unspecified; Z95.828 Presence of other vascular implants and grafts
CPT/HCPCS: 71046

== ENCOUNTER 2018-04-17 11:05 | Inpatient (IN) | payer MEDICARE, MEDICAID ==
[2018-04-17] VITALS (18 sets, daily range): BP systolic 90–156; BP diastolic 40–74
[~2018-04-17] VITALS: Ht 165.1 cm; Wt 151.1 kg
[~2018-04-17 11:05] MED LIST changes: +METR-197 PO; -METR500T21 PO; -POLY17PO23 PO; +POLY17PO31 PO
[2018-04-17 11:26] LABS: BASOPHILS % (AUTO) 0 % (0-10); EOSINOPHILS % (AUTO) 0 % (0-10); HEMATOCRIT 27 % (35-52); HEMOGLOBIN 7.5 G/DL (11.5-16.0); LYMPHOCYTES # (AUTO) 1.6 X 10^3 (1.0-4.0); LYMPHOCYTES % (AUTO) 16 % (12-44); MEAN CORPUSCULAR HEMOGLOBIN 27 PG (25-34); MEAN CORPUSCULAR HGB CONC 28 G/DL (32-36); MEAN CORPUSCULAR VOLUME 96 FL (80-99); MEAN PLATELET VOLUME 8.9 FL (7.4-10.4); MONOCYTES # (AUTO) 1.1 X 10^3 (0.0-1.0); MONOCYTES % (AUTO) 11 % (0-12); NEUTROPHILS # (AUTO) 7.2 X 10^3 (1.8-7.8); NEUTROPHILS % (AUTO) 73 % (42-75); PLATELET COUNT 352 10^3/uL (130-400); RED BLOOD COUNT 2.81 10^6/uL (4.35-5.85); RED CELL DISTRIBUTION WIDTH 17.3 % (10.0-14.5); WHITE BLOOD COUNT 9.9 10^3/uL (4.3-11.0)
[2018-04-17 11:33] LABS: ABG BASE EXCESS 6.5 MMOL/L (-2.5-2.5); ABG OXYGEN SATURATION 99 % (94-100); ABG PCO2 69 MMHG (35-45); ABG PO2 137 MMHG (79-93)
[2018-04-17 11:37] LABS: ABG PH 7.29 (7.37-7.43); ALLENS TEST YES-POS; INSPIRED O2 6; VENTILATOR NO
[2018-04-17 11:39] LABS: BILIRUBIN,URINE NEGATIVE (NEGATIVE); CLARITY,URINE CLEAR; COLOR,URINE YELLOW; GLUCOSE, URINE (UA) NEGATIVE (NEGATIVE); KETONES,URINE NEGATIVE (NEGATIVE); LEUKOCYTE ESTERASE ,URINE 3+ (NEGATIVE); NITRITE,URINE POSITIVE (NEGATIVE); PH,URINE 5 (5-9); PROTEIN,URINE 2+ (NEGATIVE); UROBILINOGEN,URINE NORMAL (NORMAL)
[2018-04-17 11:44] LABS: ALBUMIN 2.9 GM/DL (3.2-4.5); BILIRUBIN,TOTAL 0.2 MG/DL (0.1-1.0); CALCIUM 10.3 MG/DL (8.5-10.1); CREATININE SERUM 2.49 MG/DL (0.60-1.30); POTASSIUM 4.6 MMOL/L (3.6-5.0); TOTAL PROTEIN 7.2 GM/DL (6.4-8.2)
[2018-04-17 11:48] LABS: BACTERIA,URINE MODERATE /HPF; HYALINE CASTS, URINE 0-2 /LPF; RBC,URINE 0-2 /HPF; SQUAMOUS EPITHELIAL CELL,UR 0-2 /HPF
[2018-04-17] MEDS ORDERED: DEXTROSE 50% 50 ML (IMS) SYR ONE (11:57)
[2018-04-17] MEDS ORDERED: DEXTROSE 50% 50 ML (IMS) SYR IV ONE (12:00)
--- NOTE | 2018-04-17 12:06 | Diagnostic Imaging Report ---
EXAMINATION: CHEST 1 VIEW, AP/PA ONLY INDICATION: Low blood sugar. Sepsis. COMPARISON: Chest radiographs 01/31/2018. FINDINGS: Right IJ tunneled port CVC tip low SVC. Cardiomegaly. Low lung volumes with perihilar atelectasis and/or infiltrate. No pleural effusion or pneumothorax. IMPRESSION: 1. Low lung volumes with perihilar atelectasis and/or infiltrate. 2. Cardiomegaly is similar to the prior exam. Dictated by: Dictated on workstation # [id number]
--- NOTE | 2018-04-17 12:20 | ED General ---
General Chief Complaint: General Problems/Pain Stated Complaint: SOA Nursing Triage Note: PT BROUGHT IN BY EMS WITH COMPLAINT OF LOW BLOOD SUGAR AND UTI. [place] 78 [place] STAFF, THAT WAS LOW FOR PT. PT WAS GIVEN AN AMP OF D50 BY EMS. PT WAS ALSO RECENTLY DIAGNOSED WITH A UTI, BUT HAS NOT STARTED ANTIBIOTICS. Nursing Sepsis Screen: No Definite Risk Source of Information: Patient, EMS Exam Limitations: No Limitations History of Present Illness Date Seen by Provider: Apr 17, 2018 Time Seen by Provider: 11:06 Initial Comments Patient is a 67-year-old female who is brought to the emergency room by [facility] from [facility] with complaints of low blood sugar, urinary tract infection, and low oxygen saturation. The patient was given 1 amp of D50 for a blood sugar of 78 at the [facility] by [facility]. She wears 4L of oxygen via nasal cannula has been requiring higher levels today, the patient denies any shortness of breath. She had a diagnosis of a urinary tract infection at the [facility] has not started any antibiotics at this time. She is also seeing the [facility] for anemia, she does not receive blood products she is [employer]. Timing/Duration: 1 Day Associated Systoms: Denies Symptoms Allergies and Home Medications Allergies Coded Allergies: Bacitracin Zinc (Unverified Allergy, Unknown, 07/11/17) Penicillins (Unverified Allergy, Unknown, HAS RECEIVED ROCEPHIN DURING PREVIOUS ADMIT, 07/11/17) bacitracin (Unverified Allergy, Unknown, 07/11/17) colistimethate sodium (Unverified Allergy, Unknown, 07/11/17) gramicidin D (Unverified Allergy, Unknown, 07/11/17) neomycin sulfate (Unverified Allergy, Unknown, 07/11/17) polymyxin B (Unverified Allergy, Unknown, 07/11/17) polymyxin B sulfate (Unverified Allergy, Unknown, 07/11/17) pramoxine HCl (Unverified Allergy, Unknown, 07/11/17) Home Medications Acetaminophen 500 Mg Tablet, 1,000 MG PO Q6H PRN for PAIN-MILD, (Reported) Acetaminophen 325 Mg Tablet, 325-650 MG PO Q6H PRN for PAIN-MILD, (Reported) Arginine HCl 1,000 Mg Tablet, 2,000 MG PO TID, (Reported) Aspirin 81 Mg Tablet.dr, 81 MG PO DAILY, (Reported) Brinzolamide/Brimonidine Tart 8 Ml Drops.susp, 1 DROP OU TID, (Reported) Cholecalciferol (Vitamin D3) 50,000 Unit Capsule, 50,000 UNIT PO WEEK, (Reported ) Clonidine HCl 0.3 Mg Tablet, 0.3 MG PO BID, (Reported) Clopidogrel Bisulfate 75 Mg Tablet, 75 MG PO DAILY, (Reported) Ferrous Sulfate 325 Mg Tablet, 325 MG PO BID, (Reported) Gabapentin 100 Mg Capsule, 300 MG PO TID, (Reported) TAKES 3 (100MG) CAPSULES Hydralazine HCl 25 Mg Tablet, 25 MG PO TID, (Reported) Insulin Aspart 300 Units/3 Ml Solution, 20 UNITS SC AC, (Reported) Insulin Detemir 100 Unit/1 Ml Insuln.pen, 35 UNIT SQ BID, (Reported) Lactulose 10 Gm/15 Ml Solution, 15 ML PO BID, (Reported) Loratadine 10 Mg Tab.rapdis, 10 MG PO DAILY PRN for ALLERGIES, (Reported) Magnesium Hydroxide 400 Mg/5 Ml Oral.susp, 30 ML PO DAILY PRN for CONSTIPATION- 7TH LINE, (Reported) Magnesium Oxide 250 Mg Tablet, 250 MG PO DAILY, (Reported) Multivitamin 1 Each Tablet, 1 TAB PO DAILY, (Reported) Nystatin 1 Each Powder.ea., TOP BID, (Reported) [place]-3/Dha/Epa/Fish Oil 1 Each Capsule, 1,000 MG PO TID, (Reported) Phenazopyridine HCl 200 Mg Tablet, 200 MG PO Q8H PRN for BLADDER SPASMS, ( Reported) Rosuvastatin Calcium 20 Mg Tablet, 20 MG PO HS, (Reported) Torsemide 20 Mg Tablet, 20 MG PO BID, (Reported) Turmeric/Turmeric Root Extract 1 Each Capsule, 500 MG PO BID, (Reported) Patient Home Medication List Home Medication List Reviewed: Yes Review of Systems Review of Systems Constitutional: see HPI; No chills, No fever Respiratory: see HPI, other (decreased oxygen saturation) Genitourinary: see HPI, other (urinary tract infection) Past Msycchv-Jrbeci-Xdfdtu Hx Past Med/Social Hx: Reviewed Nursing Past Med/Soc Hx Patient Social History Alcohol Use: Denies Use Recreational Drug Use: No Smoking Status: Former Smoker Type Used: Cigarettes Recent Foreign Travel: No Contact w/Someone Who Travel: No Recent Infectious Disease Expo: No Recent Hopitalizations: No Immunizations Up To Date Tetanus Booster (TDap): Unknown PED Vaccines UTD: No Date of Pneumonia Vaccine: Feb 20, 2017 Date of Influenza Vaccine: Feb 06, 2017 Seasonal Allergies Seasonal Allergies: Yes Past Medical History Surgeries: Yes (FISSURE SX AFTER HYSTERECTOMY, Rt. 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 LEFT FOOT) Arthritis, Chronic Back Pain, Fractures Endocrine: Yes Diabetes, Insulin dep HEENT: Yes Cataract Loss of Vision: Denies Hearing Impairment: Denies Cancer: No Psychosocial: No Integumentary: No Blood Disorders: Yes (Chronic ANEMIA- epo shots) Adverse Reaction/Blood Tranf: No (N/A) Family Medical History Reviewed Nursing Family Hx Alzheimer's disease 19 MOTHER Cardiovascular disease Cataract 19 MOTHER Cataracts Congestive heart failure 19 FATHER Dementia 19 MOTHER Dementia 19 MOTHER Diabetes mellitus Family history: Allergy 19 FATHER 19 MOTHER Family history: Alzheimer's disease 19 MOTHER Family history: Cardiovascular disease 19 MOTHER Family history: Diabetes mellitus G8 BROTHER G8 BROTHER G8 SISTER Family history: Hypertension 19 FATHER Hearing loss G8 BROTHER Heart disease 19 FATHER G8 BROTHER G8 BROTHER G8 SISTER Hypertension 19 FATHER 19 MOTHER G8 BROTHER Infertile 19 FATHER 19 MOTHER G8 BROTHER G8 BROTHER G8 SISTER Myocardial infarction 19 FATHER Myocardial infarction 19 FATHER Psychotic disorder 19 FATHER Severe allergy G8 BROTHER G8 BROTHER Stroke 19 FATHER No Family History of: AIDS Abdominal aortic aneurysm Abdominal aortic aneurysm Tift's disease Tift's disease Alcoholism Alcoholism Aphasia Aphasia Arthritis Asthma Cancer Cancer of colon Cancer of mouth Chest pain Colon cancer Completed stroke Congenital disease Congenital heart disease Congenital heart disease Coronary thrombosis Cystic fibrosis Cystic fibrosis Dysphagia Family history: Arthritis Family history: Asthma Family history: Breast disease Family history: Coronary thrombosis Family history: Gastrointestinal disease Family history: Glaucoma Family history: Osteoporosis Family history: Thyroid disorder Fibrocystic disease of breast Gastroenteritis Glaucoma Headache Headache disorder Hereditary disease History of - anemia History of - disorder History of - respiratory disease History of drug abuse Human immunodeficiency virus (HIV) seropositivity Hypercholesterolemia Hypercholesterolemia Kidney disease Malignant neoplasm of lung Neoplasm Not obtainable due to adoption Osteoporosis Parkinson's disease Parkinson's disease Prostate cancer Psychosocial problem Seizure disorder Seizure disorder Thyroid disease Tuberculosis Tuberculosis Visual disorder Visual impairment Heart Disease, Diabetes, Hypertension Physical Exam Vital Signs Vital Signs - First Documented 04/17/18 13:30 FiO2 45 Capillary Refill : Less Than 3 Seconds Height, Weight, BMI Height: 5'3.00" Weight: 300lbs. 3.0oz. [id number]; 60.2 BMI Method:Stated General Appearance: No Apparent Distress, WD/WN Eyes: Bilateral Eye Conjunctivae Pale HEENT: PERRL/EOMI, TMs Normal, Normal ENT Inspection, Pharynx Normal Neck: Full Range of Motion, Normal Inspection, Non Tender, Supple Respiratory: Chest Non Tender, Lungs Clear, Normal Breath Sounds, No Accessory Muscle Use, No Respiratory Distress Cardiovascular: Regular Rate, Rhythm, No Edema, No Gallop, No JVD, No Murmur, Normal Peripheral Pulses Gastrointestinal: Normal Bowel Sounds, No Organomegaly, No Pulsatile Mass, Non Tender, Soft Extremity: No Pedal Edema (bilateral pitting pedal edema that extends to the upper [place] area.) Neurologic/Psychiatric: Alert, Oriented x3, Normal Mood/Affect Skin: Normal Color, Warm/Dry Focused Exam Lactate Level 04/17/18 11:11: Lactic Acid Level 0.53 Lactic Acid Level Procedures/Interventions Date of ETT Placement: Oct 15, 2017 Time of ETT Placement: 1505 Progress/Results/Core Measures Suspected Sepsis Recent Fever Within 48 Hours: No Infection Criteria Present: None New/Unexplained Altered Menta: No Sepsis Screen: No Definite Risk SIRS Temperature:98.3 Pulse: 82 Respiratory Rate: 20 Laboratory Tests 04/17/18 11:11: White Blood Count 9.9 Blood Pressure 103 /42 Mean: 62 04/17/18 11:11: Lactic Acid Level 0.53 Laboratory Tests 04/17/18 11:11: Creatinine 2.49H, Platelet Count 352, Total Bilirubin 0.2 Results/Orders Lab Results Laboratory Tests Test 04/17/18 11:11 04/17/18 11:19 04/17/18 11:30 04/17/18 12:29 Range/Units White Blood Count 9.9 4.3-11.0 10^3/uL Red Blood Count 2.81 L 4.35-5.85 10^6/uL Hemoglobin 7.5 L 11.5-16.0 G/DL Hematocrit 27 L 35-52 % Mean Corpuscular Volume 96 80-99 FL Mean Corpuscular Hemoglobin 27 25-34 PG Mean Corpuscular Hemoglobin Concent 28 L 32-36 G/DL Red Cell Distribution Width 17.3 H 10.0-14.5 % Platelet Count 352 130-400 10^3/uL Mean Platelet Volume 8.9 7.4-10.4 FL Neutrophils (%) (Auto) 73 42-75 % Lymphocytes (%) (Auto) 16 12-44 % Monocytes (%) (Auto) 11 0-12 % Eosinophils (%) (Auto) 0 0-10 % Basophils (%) (Auto) 0 0-10 % Neutrophils # (Auto) 7.2 1.8-7.8 X 10^3 Lymphocytes # (Auto) 1.6 1.0-4.0 X 10^3 Monocytes # (Auto) 1.1 H 0.0-1.0 X 10^3 Eosinophils # (Auto) 0.0 0.0-0.3 10^3/uL Basophils # (Auto) 0.0 0.0-0.1 10^3/uL Sodium Level 140 135-145 MMOL/L Potassium Level 4.6 3.6-5.0 MMOL/L Chloride Level 99 98-107 MMOL/L Carbon Dioxide Level 33 H 21-32 MMOL/L Anion Gap 8 5-14 MMOL/L Blood Urea Nitrogen 90 H 7-18 MG/DL Creatinine 2.49 H 0.60-1.30 MG/DL Estimat Glomerular Filtration Rate 19 BUN/Creatinine Ratio 36 Glucose Level 54 *L 70-105 MG/DL Lactic Acid Level 0.53 0.50-2.00 MMOL/L Calcium Level 10.3 H 8.5-10.1 MG/DL Corrected Calcium 11.2 H 8.5-10.1 MG/DL Total Bilirubin 0.2 0.1-1.0 MG/DL Aspartate Amino Transf (AST/SGOT) 54 H 5-34 U/L Alanine Aminotransferase (ALT/SGPT) 59 H 0-55 U/L Alkaline Phosphatase 211 H 40-136 U/L B-Type Natriuretic Peptide 1021.2 H <100.0 PG/ML Total Protein 7.2 6.4-8.2 GM/DL Albumin 2.9 L 3.2-4.5 GM/DL Blood Gas Puncture Site RR Blood Gas Patient Temperature 98.0 Arterial Blood pH 7.29 *L 7.37-7.43 Arterial Blood Partial Pressure CO2 69 H 35-45 MMHG Arterial Blood Partial Pressure O2 137 H 79-93 MMHG Arterial Blood HCO3 33 H 23-27 MMOL/L Arterial Blood Total CO2 35.0 H 21.0-31.0 MMOL/L Arterial Blood Oxygen Saturation 99 94-100 % Arterial Blood Base Excess 6.5 H -2.5-2.5 MMOL/L James Test YES-POS Blood Gas Ventilator Setting NO Blood Gas Inspired Oxygen 6 Urine Color YELLOW Urine Clarity CLEAR Urine pH 5 5-9 Urine Specific [place] 1.015 L 1.016-1.022 Urine Protein 2+ H NEGATIVE Urine Glucose (UA) NEGATIVE NEGATIVE Urine Ketones NEGATIVE NEGATIVE Urine Nitrite POSITIVE H NEGATIVE Urine Bilirubin NEGATIVE NEGATIVE Urine Urobilinogen NORMAL NORMAL MG/DL Urine Leukocyte Esterase 3+ H NEGATIVE Urine RBC (Auto) 1+ H NEGATIVE Urine RBC 0-2 /HPF Urine WBC 10-25 H /HPF Urine Squamous Epithelial Cells 0-2 /HPF Urine Crystals NONE /LPF Urine Bacteria MODERATE H /HPF Urine Casts PRESENT /LPF Urine Hyaline Casts 0-2 H /LPF Urine Granular Casts 2-5 H /LPF Urine Mucus NEGATIVE /LPF Urine Culture Indicated YES Glucometer 247 H 70-110 MG/DL Test 04/17/18 12:55 04/17/18 13:40 04/17/18 15:16 04/17/18 16:44 Range/Units Glucometer 177 H 153 H 111 H 80 70-110 MG/DL Test 04/17/18 17:03 04/17/18 18:14 04/17/18 19:04 04/17/18 19:44 Range/Units Blood Gas Puncture Site LEFT RADIAL Blood Gas Patient Temperature 97.4 Arterial Blood pH 7.39 7.37-7.43 Arterial Blood Partial Pressure CO2 55 H 35-45 MMHG Arterial Blood Partial Pressure O2 72 L 79-93 MMHG Arterial Blood HCO3 33 H 23-27 MMOL/L Arterial Blood Total CO2 34.7 H 21.0-31.0 MMOL/L Arterial Blood Oxygen Saturation 96 94-100 % Arterial Blood Base Excess 7.8 H -2.5-2.5 MMOL/L James Test POSITIVE Blood Gas Ventilator Setting NO Blood Gas Inspired Oxygen 35% BIPAP Glucometer 77 71 89 70-110 MG/DL Test 04/17/18 20:12 04/17/18 21:10 Range/Units Glucometer 95 109 70-110 MG/DL My Orders Orders - LANCE DUNLAP Cbc With Automated Diff (04/17/18 11:12) Comprehensive Metabolic Panel (04/17/18 11:12) BNP (04/17/18 11:12) Chest 1 View, Ap/Pa Only (04/17/18 11:12) Ekg Tracing (04/17/18 11:12) O2 (04/17/18 11:12) Saline Lock/Iv-Start (04/17/18 11:12) Monitor-Rhythm Ecg Trace Only (04/17/18 11:12) Ua Culture If Indicated (04/17/18 11:12) Blood Culture (04/17/18 11:12) Lactic Acid Analyzer (04/17/18 11:12) Arterial Blood Gas (04/17/18 11:22) Urine Culture (04/17/18 11:30) Type And Screen (04/17/18 11:53) D50w (Emergency) Syringe (Dextrose 50% 5 (04/17/18 12:00) D50w (Emergency) Syringe (Dextrose 50% 5 (04/17/18 11:57) Accucheck Stat ONCE (04/17/18 12:22) Furosemide Injection (Lasix Injection) (04/17/18 12:30) Ceftriaxone For Iv Use (Rocephin For I (04/17/18 12:45) Medications Given in ED Current Medications Medications Dose Ordered Sig/Solomon Route Start Time Stop Time Status Last Admin Dose Admin Ceftriaxone Sodium 1000 mg/ Sodium Chloride 50 ml @ 100 mls/hr ONCE ONCE IV 04/17/18 12:45 04/17/18 13:14 DC 04/17/18 12:57 100 MLS/HR Dextrose 50 ml ONCE ONCE IV 12/11/18 12:00 04/17/18 12:01 DC 04/17/18 12:00 50 ML Furosemide 40 mg ONCE ONCE IVP 04/17/18 12:30 04/17/18 12:31 DC 04/17/18 12:30 40 MG Vital Signs/I&O 04/17/18 04/17/18 04/17/18 04/17/18 11:06 11:06 13:12 13:30 Temp 98.3 Pulse 82 71 Resp 20 20 B/P (MAP) 103/42 (62) 98/48 (65) Pulse Ox 84 94 91 O2 Delivery Nasal Cannula Non Rebreather Vapotherm Vapotherm O2 Flow Rate 6.00 8.00 25.00 FiO2 45 04/17/18 04/17/18 04/17/18 04/17/18 13:43 13:45 14:00 14:15 Temp 97.3 Pulse 73 74 73 73 Resp 7 20 B/P (MAP) 119/67 (84) 111/54 (73) 110/53 (72) Pulse Ox 92 93 92 O2 Delivery Vapotherm Vapotherm Vapotherm O2 Flow Rate 45.00 45.00 45.00 25.00 25.00 25.00 04/17/18 04/17/18 04/17/18 04/17/18 14:30 14:45 15:00 15:37 Pulse 73 74 75 72 Resp 21 19 17 19 B/P (MAP) 108/53 (71) 110/55 (73) 113/54 (73) Pulse Ox 92 90 90 97 O2 Delivery Vapotherm Vapotherm Vapotherm O2 Flow Rate 45.00 45.00 45.00 35.00 25.00 25.00 25.00 04/17/18 04/17/18 04/17/18 04/17/18 15:50 16:00 16:00 17:00 Pulse 70 65 Resp 42 17 B/P (MAP) 140/67 (91) 121/74 (90) Pulse Ox 97 99 O2 Delivery NIV Bilevel NIV Bilevel NIV Bilevel NIV Bilevel O2 Flow Rate 35.00 35.00 35.00 35.00 04/17/18 04/17/18 04/17/18 04/17/18 18:00 18:15 19:05 20:00 Pulse 64 66 68 Resp 14 20 20 B/P (MAP) 134/70 (91) 124/66 (85) Pulse Ox 90 98 O2 Delivery NIV Bilevel NIV Bilevel NIV Bilevel O2 Flow Rate 35.00 35.00 30.00 30.00 04/17/18 20:00 Temp 97.7 Pulse 72 Resp 13 B/P (MAP) 153/67 (95) Pulse Ox 97 O2 Delivery NIV Bilevel O2 Flow Rate 30.00 Capillary Refill : Less Than 3 Seconds Blood Pressure Mean: 62 Progress Note : Time: 12:06 Progress Note I have seen and evaluated the patient. I have discussed the case with Dr. Byrd at this time. She agrees to admit the patient to her services to the ICU can give Lasix IV, meropenem and Rocephin for lung and urinary tract coverage. The patient oxygen saturation has improved on the Vapotherm. She is currently on 45 % FiO2 and 35 L flow rate. She agrees with plans for admission. Diagnostic Imaging Diagonstic Imaging: Xray Plain Films/CT/US/NM/MRI: chest Comments NAME: CEDRICK ALBERTS [facility] REC#: [id number] PT STATUS: ADM IN : 1950 PHYSICIAN: LANCE DUNLAP ADMIT DATE: 04/17/18/ICU Signed Date of Exam:04/17/18 CHEST 1 VIEW, AP/PA ONLY EXAMINATION: CHEST 1 VIEW, AP/PA ONLY INDICATION: Low blood sugar. Sepsis. COMPARISON: Chest radiographs 01/31/2018. FINDINGS: Right IJ tunneled port CVC tip low SVC. Cardiomegaly. Low lung volumes with perihilar atelectasis and/or infiltrate. No pleural effusion or pneumothorax. IMPRESSION: 1. Low lung volumes with perihilar atelectasis and/or infiltrate. 2. Cardiomegaly is similar to the prior exam. Dictated by: Dictated on workstation # [id number] Dict: 04/17/18 1158 Trans: 04/17/181651 [facility] [id number] Interpreted by: ISAIAS DUNBAR MD Electronically signed by: ISAIAS DUNBAR MD 04/17/18 1652 Reviewed: Reviewed by Me Departure Communication (Admissions) Time/Spoke to Admitting Phy: 12:06 Dr. Byrd Impression Primary Impression: Anemia Additional Impressions: UTI (urinary tract infection) CHF (congestive heart failure) Hypoglycemia Disposition: ADMITTED INPATIENT Condition: Stable Admissions Decision to Admit Reason: Admit from ER (General) Decision to Admit/Date: Apr 17, 2018 Time/Decision to Admit Time: 13:03 Departure-Patient Inst. Referrals: [facility]/Hernandez (PCP) Primary Care Physician CARLOS LARA (Family) Primary Care Physician LANCE DUNLAP Apr 17, 2018 12:19
[2018-04-17] MEDS ORDERED: FUROSEMIDE 40 MG/4 ML INJ (LASIX) IVP ONE (12:30)
[2018-04-17] MEDS ORDERED: cefTRIAXone FOR IV USE 1,000 MG in NS (IVPB) 50 ML IV ONE (12:45)
[2018-04-17] MEDS ORDERED: CATHETER FLUSH 10 ML SYR IV PRN (14:15)
[2018-04-17] MEDS ORDERED: DEXTROSE 50% 50 ML (IMS) SYR IV PRN (14:15)
[2018-04-17] MEDS: MEROPENEM 500 MG in NS (IVPB) 100 ML IV SCH ×2 (14:49→22:16)
[2018-04-17] MEDS ORDERED: [UNRECOGNIZED DRUG - CODE] PO (15:03)
[2018-04-17] MEDS ORDERED: TURM500C4 PO (15:03)
[2018-04-17] MEDS ORDERED: LACT10SO PO (15:03)
[2018-04-17] MEDS ORDERED: MAGN400O7 PO (15:03)
[2018-04-17] MEDS ORDERED: PHEN-640 PO (15:03)
[2018-04-17] MEDS ORDERED: INSU100I29 SQ (15:03)
[2018-04-17] MEDS ORDERED: NYST1POW22 TOP (15:03)
[2018-04-17] MEDS ORDERED: FERR325T18 PO (15:03)
[2018-04-17] MEDS ORDERED: ACET325T38 PO (15:03)
[2018-04-17] MEDS ORDERED: CHOL500049 PO (15:03)
[2018-04-17] MEDS ORDERED: CLOP75TA28 PO (15:03)
[2018-04-17] MEDS ORDERED: ACET-168 PO (15:03)
--- NOTE | 2018-04-17 15:28 | Pulmonary Consultation ---
History of Present Illness History of Present Illness Date of Consultation 04/17/18 15:23 Date of Admission Allergies and Home Medications Allergies Coded Allergies: Bacitracin Zinc (Unverified Allergy, Unknown, 07/11/17) Penicillins (Unverified Allergy, Unknown, HAS RECEIVED ROCEPHIN DURING PREVIOUS ADMIT, 07/11/17) bacitracin (Unverified Allergy, Unknown, 07/11/17) colistimethate sodium (Unverified Allergy, Unknown, 07/11/17) gramicidin D (Unverified Allergy, Unknown, 07/11/17) neomycin sulfate (Unverified Allergy, Unknown, 07/11/17) polymyxin B (Unverified Allergy, Unknown, 07/11/17) polymyxin B sulfate (Unverified Allergy, Unknown, 07/11/17) pramoxine HCl (Unverified Allergy, Unknown, 07/11/17) Home Medications Acetaminophen 500 Mg Tablet, 1,000 MG PO Q6H PRN for PAIN-MILD, (Reported) Acetaminophen 325 Mg Tablet, 325-650 MG PO Q6H PRN for PAIN-MILD, (Reported) Arginine HCl 1,000 Mg Tablet, 2,000 MG PO TID, (Reported) Aspirin 81 Mg Tablet.dr, 81 MG PO DAILY, (Reported) Brinzolamide/Brimonidine Tart 8 Ml Drops.susp, 1 DROP OU TID, (Reported) Cholecalciferol (Vitamin D3) 50,000 Unit Capsule, 50,000 UNIT PO WEEK, (Reported ) Clonidine HCl 0.3 Mg Tablet, 0.3 MG PO BID, (Reported) Clopidogrel Bisulfate 75 Mg Tablet, 75 MG PO DAILY, (Reported) Ferrous Sulfate 325 Mg Tablet, 325 MG PO BID, (Reported) Gabapentin 100 Mg Capsule, 300 MG PO TID, (Reported) TAKES 3 (100MG) CAPSULES Hydralazine HCl 25 Mg Tablet, 25 MG PO TID, (Reported) Insulin Aspart 300 Units/3 Ml Solution, 20 UNITS SC AC, (Reported) Insulin Detemir 100 Unit/1 Ml Insuln.pen, 35 UNIT SQ BID, (Reported) Lactulose 10 Gm/15 Ml Solution, 15 ML PO BID, (Reported) Loratadine 10 Mg Tab.rapdis, 10 MG PO DAILY PRN for ALLERGIES, (Reported) Magnesium Hydroxide 400 Mg/5 Ml Oral.susp, 30 ML PO DAILY PRN for CONSTIPATION- 7TH LINE, (Reported) Magnesium Oxide 250 Mg Tablet, 250 MG PO DAILY, (Reported) Multivitamin 1 Each Tablet, 1 TAB PO DAILY, (Reported) Nystatin 1 Each Powder.ea., TOP BID, (Reported) [place]-3/Dha/Epa/Fish Oil 1 Each Capsule, 1,000 MG PO TID, (Reported) Phenazopyridine HCl 200 Mg Tablet, 200 MG PO Q8H PRN for BLADDER SPASMS, ( Reported) Rosuvastatin Calcium 20 Mg Tablet, 20 MG PO HS, (Reported) Torsemide 20 Mg Tablet, 20 MG PO BID, (Reported) Turmeric/Turmeric Root Extract 1 Each Capsule, 500 MG PO BID, (Reported) Past Jvrcjmd-[id number]-Vqefzj Hx Patient Social History Alcohol Use: Denies Use Recreational Drug Use: No Smoking Status: Never a Smoker Type Used: Cigarettes Recent Foreign Travel: No Contact w/Someone Who Travel: No Recent Infectious Disease Expo: No Recent Hopitalizations: Yes (October 2017- [facility]) Immunizations Up To Date Tetanus Booster (TDap): Unknown PED Vaccines UTD: No Date of Pneumonia Vaccine: Feb 20, 2017 Date of Influenza Vaccine: Feb 06, 2017 Seasonal Allergies Seasonal Allergies: Yes Past Medical History Surgeries: Yes (FISSURE SX AFTER HYSTERECTOMY, Rt. 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 LEFT FOOT) Arthritis, Chronic Back Pain, Fractures Endocrine: Yes Diabetes, Insulin dep Are Your Blood Sugars Over 250: No HEENT: Yes Cataract Loss of Vision: Denies Hearing Impairment: Denies Cancer: No Psychosocial: No Integumentary: No Blood Disorders: Yes (Chronic ANEMIA- epo shots) Adverse Reaction/Blood Tranf: No (N/A) Family Medical History Alzheimer's disease 19 MOTHER Cardiovascular disease Cataract 19 MOTHER Cataracts Congestive heart failure 19 FATHER Dementia 19 MOTHER Dementia 19 MOTHER Diabetes mellitus Family history: Allergy 19 FATHER 19 MOTHER Family history: Alzheimer's disease 19 MOTHER Family history: Cardiovascular disease 19 MOTHER Family history: Diabetes mellitus G8 BROTHER G8 BROTHER G8 SISTER Family history: Hypertension 19 FATHER Hearing loss G8 BROTHER Heart disease 19 FATHER G8 BROTHER G8 BROTHER G8 SISTER Hypertension 19 FATHER 19 MOTHER G8 BROTHER Infertile 19 FATHER 19 MOTHER G8 BROTHER G8 BROTHER G8 SISTER Myocardial infarction 19 FATHER Myocardial infarction 19 FATHER Psychotic disorder 19 FATHER Severe allergy G8 BROTHER G8 BROTHER Stroke 19 FATHER No Family History of: AIDS Abdominal aortic aneurysm Abdominal aortic aneurysm Loving's disease Loving's disease Alcoholism Alcoholism Aphasia Aphasia Arthritis Asthma Cancer Cancer of colon Cancer of mouth Chest pain Colon cancer Completed stroke Congenital disease Congenital heart disease Congenital heart disease Coronary thrombosis Cystic fibrosis Cystic fibrosis Dysphagia Family history: Arthritis Family history: Asthma Family history: Breast disease Family history: Coronary thrombosis Family history: Gastrointestinal disease Family history: Glaucoma Family history: Osteoporosis Family history: Thyroid disorder Fibrocystic disease of breast Gastroenteritis Glaucoma Headache Headache disorder Hereditary disease History of - anemia History of - disorder History of - respiratory disease History of drug abuse Human immunodeficiency virus (HIV) seropositivity Hypercholesterolemia Hypercholesterolemia Kidney disease Malignant neoplasm of lung Neoplasm Not obtainable due to adoption Osteoporosis Parkinson's disease Parkinson's disease Prostate cancer Psychosocial problem Seizure disorder Seizure disorder Thyroid disease Tuberculosis Tuberculosis Visual disorder Visual impairment Heart Disease, Diabetes, Hypertension Sepsis Event Evaluation Height, Weight, BMI Height: 5'5.00" Weight: 313lbs. 5.0oz. 142.709505zu; 52.1 BMI Method:Stated Exam Exam Vital Signs Date Time Temp Pulse Resp B/P (MAP) Pulse Ox O2 Delivery O2 Flow Rate FiO2 04/17/18 15:00 75 17 113/54 (73) 90 Vapotherm 45.00 25.00 04/17/18 14:45 74 19 110/55 (73) 90 Vapotherm 45.00 25.00 04/17/18 14:30 73 21 108/53 (71) 92 Vapotherm 45.00 25.00 04/17/18 14:15 73 20 110/53 (72) 92 Vapotherm 45.00 25.00 04/17/18 14:00 73 111/54 (73) 93 Vapotherm 45.00 25.00 04/17/18 13:45 97.3 74 7 119/67 (84) 92 Vapotherm 45.00 25.00 04/17/18 13:43 73 04/17/18 13:12 71 20 98/48 (65) 91 Vapotherm 04/17/18 11:06 94 Non Rebreather 8.00 04/17/18 11:06 98.3 82 20 103/42 (62) 84 Nasal Cannula 6.00 Height & Weight Height: 5'5.00" Weight: 313lbs. 5.0oz. 142.048748xd; 52.1 BMI Method:Stated Capillary Refill: Less Than 3 Seconds Results Lab Laboratory Tests 04/17/18 11:11 Assessment/Plan Assessment/Plan Acute respiratory failure with hypoxia -BiPAP and monitor -SVNS Obesity Atelectasis UTI -Sandoval cultures -Abx Anemia -Monitor -Check occult stool. Acute renal failure with dehydration -IVF -Monitor Hypoglycemia -Monitro Metabolic encephalopathy CORAZON SERVIN DO Apr 17, 2018 15:28
[2018-04-17] MEDS ORDERED: RT-ALBUTEROL/IPRATROPIUM 3 ML (DUONEB) VIAL INH PRN (16:00)
[2018-04-17] MEDS: LACTATED RINGERS 1,000 ML IV SCH (16:32)
[2018-04-17] MEDS ORDERED: FUROSEMIDE 40 MG/4 ML INJ (LASIX) IV SCH (17:00)
[2018-04-17 17:08] LABS: ABG BASE EXCESS 7.8 MMOL/L (-2.5-2.5); ABG OXYGEN SATURATION 96 % (94-100); ABG PCO2 55 MMHG (35-45); ABG PH 7.39 (7.37-7.43); ABG PO2 72 MMHG (79-93); ABG TCO2 34.7 MMOL/L (21.0-31.0)
[2018-04-17 17:10] LABS: ALLENS TEST POSITIVE; INSPIRED O2 35% BIPAP; PATIENT TEMP 97.4; VENTILATOR NO
[2018-04-17] MEDS ORDERED: DEXTROSE 10% IV SOLUTION 1,000 ML IV ONE (17:25)
[2018-04-17] MEDS: DEXTROSE 10% IV SOLUTION 1,000 ML IV SCH (17:40)
[2018-04-17] MEDS: RT-ALBUTEROL/IPRATROPIUM 3 ML (DUONEB) VIAL INH SCH ×2 (19:05→22:22)
[2018-04-17] MEDS: CATHETER FLUSH 10 ML SYR IV SCH (22:16)
[2018-04-17 23:05] LABS: CALCIUM 9.6 MG/DL (8.5-10.1); CREATININE SERUM 2.29 MG/DL (0.60-1.30)
[2018-04-18] VITALS (29 sets, daily range): BP systolic 87–200; BP diastolic 44–110
[2018-04-18] MEDS: RT-ALBUTEROL/IPRATROPIUM 3 ML (DUONEB) VIAL INH SCH ×6 (02:10→22:48)
[2018-04-18 03:24] LABS: BASOPHILS % (AUTO) 0 % (0-10); EOSINOPHILS % (AUTO) 0 % (0-10); HEMATOCRIT 24 % (35-52); LYMPHOCYTES # (AUTO) 1.5 X 10^3 (1.0-4.0); LYMPHOCYTES % (AUTO) 15 % (12-44); MEAN CORPUSCULAR HEMOGLOBIN 28 PG (25-34); MEAN CORPUSCULAR HGB CONC 29 G/DL (32-36); MEAN CORPUSCULAR VOLUME 96 FL (80-99); MEAN PLATELET VOLUME 8.8 FL (7.4-10.4); MONOCYTES # (AUTO) 1.1 X 10^3 (0.0-1.0); MONOCYTES % (AUTO) 11 % (0-12); NEUTROPHILS # (AUTO) 7.5 X 10^3 (1.8-7.8); NEUTROPHILS % (AUTO) 75 % (42-75); PLATELET COUNT 340 10^3/uL (130-400); RED BLOOD COUNT 2.52 10^6/uL (4.35-5.85); RED CELL DISTRIBUTION WIDTH 17.5 % (10.0-14.5); WHITE BLOOD COUNT 10.1 10^3/uL (4.3-11.0)
[2018-04-18 03:25] LABS: ABG BASE EXCESS 9.2 MMOL/L (-2.5-2.5); ABG OXYGEN SATURATION 99 % (94-100); ABG PCO2 61 MMHG (35-45); ABG PH 7.37 (7.37-7.43); ABG PO2 116 MMHG (79-93); ABG TCO2 36.4 MMOL/L (21.0-31.0)
[2018-04-18 03:29] LABS: ALLENS TEST YES-POS; INSPIRED O2 50% BIPAP; VENTILATOR NO
[2018-04-18 03:30] LABS: PATIENT TEMP 98.5
[2018-04-18 04:06] LABS: ALBUMIN 2.6 GM/DL (3.2-4.5); BILIRUBIN,TOTAL 0.2 MG/DL (0.1-1.0); CALCIUM 9.7 MG/DL (8.5-10.1); CREATININE SERUM 2.28 MG/DL (0.60-1.30); MAGNESIUM 2.4 MG/DL (1.8-2.4); PHOSPHORUS 4.6 MG/DL (2.3-4.7); POTASSIUM 4.1 MMOL/L (3.6-5.0); TOTAL PROTEIN 6.6 GM/DL (6.4-8.2)
[2018-04-18] MEDS: CATHETER FLUSH 10 ML SYR IV SCH ×3 (04:17→22:38)
[2018-04-18] MEDS: MAGNESIUM 1 GM/100 ML IVPB 100 ML IV SCH (04:17)
[2018-04-18] MEDS: POTASSIUM CL 10MEQ/50ML IVPB 50 ML IV SCH (04:17)
[2018-04-18] MEDS: KCL 20 MEQ TAB (K-DUR) PO SCH (04:18)
--- NOTE | 2018-04-18 04:28 | Pulmonary Progress Note ---
LANDRY CARR MED STUDENT 04/18/18 0428: Subjective Date Seen by a Provider: Apr 18, 2018 Time Seen by a Provider: 04:39 Subjective/Events-last exam Patient was sleeping on Bipap when I saw her. Her nurse reports that her blood sugar was low until almost midnight but has been maintaining ~140 since starting lactated ringers. Sepsis Event Evaluation Height, Weight, BMI Height: 5'5.00" Weight: 313lbs. 5.0oz. 142.348387zu; 52.1 BMI Method:Stated Focused Exam Lactate Level 04/17/18 11:11: Lactic Acid Level 0.53 Respiratory: Chest Non Tender, Respiratory Distress Cardiovascular: Regular Rate, Rhythm, No Murmur Skin: warm/dry, pallor Exam Exam Vital Signs Date Time Temp Pulse Resp B/P (MAP) Pulse Ox O2 Delivery O2 Flow Rate FiO2 04/18/18 03:58 98.5 04/18/18 03:00 80 20 121/49 (73) NIV Bilevel 50.00 04/18/18 02:10 72 21 99 30.00 04/18/18 02:00 79 16 132/52 (78) 99 NIV Bilevel 50.00 04/18/18 01:00 81 18 143/60 (87) 98 NIV Bilevel 50.00 04/18/18 01:00 81 04/18/18 00:11 81 16 99 NIV Bilevel 50.00 04/18/18 00:05 81 20 99 50.00 04/18/18 00:00 97.3 04/18/18 00:00 78 18 155/56 (89) 96 NIV Bilevel 30.00 04/18/18 00:00 NIV Bilevel 30.00 04/17/18 23:00 77 34 130/49 (76) 94 NIV Bilevel 30.00 04/17/18 22:22 70 21 97 30.00 04/17/18 22:00 77 18 156/57 (90) 91 NIV Bilevel 30.00 04/17/18 21:00 75 27 150/66 (94) 97 NIV Bilevel 30.00 04/17/18 20:00 97.7 72 13 153/67 (95) 97 NIV Bilevel 30.00 04/17/18 20:00 NIV Bilevel 30.00 04/17/18 19:05 68 20 98 30.00 12/11/18 19:00 70 04/17/18 19:00 70 16 90/40 (57) 95 NIV Bilevel 35.00 04/17/18 18:15 66 20 124/66 (85) NIV Bilevel 35.00 04/17/18 18:00 64 14 134/70 (91) 90 NIV Bilevel 35.00 04/17/18 17:00 65 17 121/74 (90) 99 NIV Bilevel 35.00 04/17/18 16:00 70 42 140/67 (91) 97 NIV Bilevel 35.00 04/17/18 16:00 NIV Bilevel 35.00 04/17/18 15:50 NIV Bilevel 35.00 04/17/18 15:37 72 19 97 35.00 04/17/18 15:00 75 17 113/54 (73) 90 Vapotherm 45.00 25.00 04/17/18 14:45 74 19 110/55 (73) 90 Vapotherm 45.00 25.00 04/17/18 14:30 73 21 108/53 (71) 92 Vapotherm 45.00 25.00 04/17/18 14:15 73 20 110/53 (72) 92 Vapotherm 45.00 25.00 04/17/18 14:00 73 111/54 (73) 93 Vapotherm 45.00 25.00 04/17/18 13:45 97.3 74 7 119/67 (84) 92 Vapotherm 45.00 25.00 04/17/18 13:43 73 04/17/18 13:30 Vapotherm 25.00 45 04/17/18 13:12 71 20 98/48 (65) 91 Vapotherm 04/17/18 11:06 94 Non Rebreather 8.00 04/17/18 11:06 98.3 82 20 103/42 (62) 84 Nasal Cannula 6.00 I & O 04/18/18 07:00 Intake Total 200 ml Output Total 3000 ml Balance -2800 ml Height & Weight Height: 5'5.00" Weight: 313lbs. 5.0oz. 142.359006rr; 52.1 BMI Method:Stated General Appearance: No Apparent Distress, WD/WN HEENT: PERRL/EOMI, TMs Normal, Normal ENT Inspection, Pharynx Normal Neck: Full Range of Motion, Normal Inspection, Non Tender, Supple Respiratory: Chest Non Tender, Lungs Clear, No Accessory Muscle Use, Respiratory Distress (on bipap) Cardiovascular: Regular Rate, Rhythm, No Murmur Capillary Refill: Less Than 3 Seconds Gastrointestinal: non tender, soft Neurologic/Psychiatric: Normal Mood/Affect Skin: Warm/Dry, Pallor Results Lab Laboratory Tests 04/17/18 11:11 04/17/18 22:35 04/18/18 03:05 Assessment/Plan Assessment/Plan Acute respiratory failure with hypoxia -BiPAP and monitor -SVNS Obesity Atelectasis -activity as tolerated -IS UTI -Sandoval cultures -meropenem and ceftriaxone Anemia -Monitor -Check occult stool -Visits cancer center for this -She is Jehovahs Witness and therefore does not accept blood products Acute renal failure with dehydration -IVF -Monitor -Baseline Cr likely ~2 based on previous visits Hypoglycemia -Monitor Metabolic encephalopathy Hypercalcemia -PTH has previously been elevated (most recently 09/07/17 it was 325) -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 pt did have episode of hypoglycemia. Currently on BiPAP. Exam Exam General Appearance: No Apparent Distress, WD/WN HEENT: PERRL/EOMI, TMs Normal, Normal ENT Inspection, Pharynx Normal Neck: Full Range of Motion, Normal Inspection, Non Tender, Supple Respiratory: Chest Non Tender, Lungs Clear, No Accessory Muscle Use Cardiovascular: Regular Rate, Rhythm, No Murmur Capillary Refill: Less Than 3 Seconds Gastrointestinal: non tender, soft Neurologic/Psychiatric: Normal Mood/Affect Skin: Warm/Dry Assessment/Plan Assessment/Plan Acute respiratory failure with hypoxia -BiPAP and monitor -SVNS Obesity Atelectasis -activity as tolerated -IS UTI -Sandoval cultures -meropenem and ceftriaxone Anemia -Monitor -Check occult stool -Visits cancer center for this -She is Jehovahs Witness and therefore does not accept blood products Acute renal failure with dehydration -IVF -Monitor -Baseline Cr likely ~2 based on previous visits Hypoglycemia -Monitor Metabolic encephalopathy Hypercalcemia -PTH has previously been elevated (most recently 09/07/17 it was 325) -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
[2018-04-18] MEDS ORDERED: D5 1/2 NS 1000 ML IV SOLUTION 0 ML IV ONE (05:37)
--- NOTE | 2018-04-18 05:44 | Pulmonary Progress Note ---
Subjective Time Seen by a Provider: 05:39 Subjective/Events-last exam PT is currently on BiPAP. She wakes up easily. ABG improved. Sepsis Event Evaluation Height, Weight, BMI Height: 5'5.00" Weight: 313lbs. 5.0oz. 142.985427ch; 52.1 BMI Method:Stated Focused Exam Lactate Level 04/17/18 11:11: Lactic Acid Level 0.53 Exam Exam Vital Signs Date Time Temp Pulse Resp B/P (MAP) Pulse Ox O2 Delivery O2 Flow Rate FiO2 04/18/18 05:00 84 16 138/65 (89) 97 NIV Bilevel 50.00 04/18/18 04:00 80 17 139/69 (92) 97 NIV Bilevel 50.00 04/18/18 04:00 NIV Bilevel 30.00 04/18/18 03:58 98.5 04/18/18 03:00 80 20 121/49 (73) NIV Bilevel 50.00 04/18/18 02:10 72 21 99 30.00 04/18/18 02:00 79 16 132/52 (78) 99 NIV Bilevel 50.00 04/18/18 01:00 81 18 143/60 (87) 98 NIV Bilevel 50.00 04/18/18 01:00 81 04/18/18 00:11 81 16 99 NIV Bilevel 50.00 04/18/18 00:05 81 20 99 50.00 04/18/18 00:00 97.3 04/18/18 00:00 78 18 155/56 (89) 96 NIV Bilevel 30.00 04/18/18 00:00 NIV Bilevel 30.00 04/17/18 23:00 77 34 130/49 (76) 94 NIV Bilevel 30.00 04/17/18 22:22 70 21 97 30.00 04/17/18 22:00 77 18 156/57 (90) 91 NIV Bilevel 30.00 04/17/18 21:00 75 27 150/66 (94) 97 NIV Bilevel 30.00 04/17/18 20:00 97.7 72 13 153/67 (95) 97 NIV Bilevel 30.00 04/17/18 20:00 NIV Bilevel 30.00 04/17/18 19:05 68 20 98 30.00 04/17/18 19:00 70 04/17/18 19:00 70 16 90/40 (57) 95 NIV Bilevel 35.00 04/17/18 18:15 66 20 124/66 (85) NIV Bilevel 35.00 04/17/18 18:00 64 14 134/70 (91) 90 NIV Bilevel 35.00 04/17/18 17:00 65 17 121/74 (90) 99 NIV Bilevel 35.00 04/17/18 16:00 70 42 140/67 (91) 97 NIV Bilevel 35.00 04/17/18 16:00 NIV Bilevel 35.00 04/17/18 15:50 NIV Bilevel 35.00 04/17/18 15:37 72 19 97 35.00 04/17/18 15:00 75 17 113/54 (73) 90 Vapotherm 45.00 25.00 04/17/18 14:45 74 19 110/55 (73) 90 Vapotherm 45.00 25.00 04/17/18 14:30 73 21 108/53 (71) 92 Vapotherm 45.00 25.00 04/17/18 14:15 73 20 110/53 (72) 92 Vapotherm 45.00 25.00 04/17/18 14:00 73 111/54 (73) 93 Vapotherm 45.00 25.00 04/17/18 13:45 97.3 74 7 119/67 (84) 92 Vapotherm 45.00 25.00 04/17/18 13:43 73 04/17/18 13:30 Vapotherm 25.00 45 04/17/18 13:12 71 20 98/48 (65) 91 Vapotherm 04/17/18 11:06 94 Non Rebreather 8.00 04/17/18 11:06 98.3 82 20 103/42 (62) 84 Nasal Cannula 6.00 I & O 04/18/18 07:00 Intake Total 200 ml Output Total 3225 ml Balance -3025 ml Height & Weight Height: 5'5.00" Weight: 313lbs. 5.0oz. 142.666831yo; 52.1 BMI Method:Stated General Appearance: WD/WN, Mild Distress HEENT: PERRL/EOMI, TMs Normal, Normal ENT Inspection, Pharynx Normal Neck: Full Range of Motion, Normal Inspection, Non Tender, Supple Respiratory: No Accessory Muscle Use, Decreased Breath Sounds, Respiratory Distress (on bipap) Cardiovascular: Regular Rate, Rhythm, No Murmur Capillary Refill: Less Than 3 Seconds Gastrointestinal: non tender, soft Neurologic/Psychiatric: Normal Mood/Affect Skin: Warm/Dry, Pallor Results Lab Laboratory Tests 04/17/18 11:11 04/17/18 22:35 04/18/18 03:05 Assessment/Plan Assessment/Plan Acute respiratory failure with hypoxia -BiPAP and monitor -Trial off BiPAP and on Vapotherm this AM -ABG is improved -SVNS Obesity OHS/HERNAN Atelectasis -activity as tolerated -IS UTI -Sandoval cultures -ceftriaxone D/C Merrem Anemia -Monitor -Check occult stool -Visits cancer center for this -She is Jehovahs Witness and therefore does not accept blood products Acute renal failure with dehydration -IVF -Monitor -Baseline Cr likely ~2 based on previous visits Hypoglycemia -Monitor -D10W decrease to 75cc/hr Metabolic encephalopathy Hypercalcemia -PTH has previously been elevated (most recently 09/07/17 it was 325) -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
[2018-04-18] MEDS: MEROPENEM 500 MG in NS (IVPB) 100 ML IV SCH (07:26)
--- NOTE | 2018-04-18 07:52 | Diagnostic Imaging Report ---
INDICATION: Anemia, congestive heart failure and UTI. Comparison made with prior examination 04/17/2018. FINDINGS: There is cardiomegaly. There is some venous congestion. There are bilateral perihilar infiltrates. There is no pleural effusion or pneumothorax. Mediastinum is unremarkable. IMPRESSION: Bilateral perihilar infiltrates. Cardiomegaly and mild central pulmonary venous congestion. Dictated by: Dictated on workstation # [id number]
[2018-04-18] MEDS: DEXTROSE 10% IV SOLUTION 1,000 ML IV SCH ×2 (10:19→15:23)
[2018-04-18] MEDS: cefTRIAXone 1 GM/NS 50 ML IVPB IV SCH ×2 (12:38)
[2018-04-18] MEDS ORDERED: cloNIDine 0.1 MG (CATAPRES) TAB ONE (17:29)
[2018-04-18] MEDS: LACTATED RINGERS 1,000 ML IV SCH ×3 (17:38→21:28)
[2018-04-18] MEDS: cloNIDine 0.1 MG (CATAPRES) TAB PO SCH (17:38)
[2018-04-18] MEDS: inSUlin ASPART (NovoLOG) 1 UNIT/0.01 ML (CHARGE PER UNIT) SC SCH ×2 (17:38→20:51)
[2018-04-18] MEDS: GABAPENTIN 300 MG (NEURONTIN) CAP PO SCH (17:39)
[2018-04-18] MEDS: hydrALAZINE (APRESOLINE) 25 MG TAB PO SCH (17:39)
[2018-04-18] MEDS: ACETAMINOPHEN 325 MG TABLET PO PRN (17:39)
[2018-04-18] MEDS: FERROUS SULF 325 MG (IRON) TAB PO SCH (17:40)
--- NOTE | 2018-04-18 20:07 | History & Physicial (CHS) ---
HPI History of Present Illness: 67 yo F that was sent [place] due to hypoxia and worsening respiratory distress. Patient states that she had started to feel bad a couple days prior to presentation to ER. Denies any fevers but had some chills that she thought were due to the cold. Denies any increase in coughing or coughing up blood. She is bed bound and lavinia lift at the [place]. Denies any recent falls. No skin rashes or infections. Patient states that she has been watching what she eats and has been cutting down the carbs and has noticed that her blood sugars have been trending down and there has not been any recent changes to her insulin. Source: patient, family (daughter), RN/MD, old records Exam Limitations: no limitations Date seen by provider: Apr 18, 2018 Time Seen by Provider: 09:10 Attending Physician Francia Byrd MD PCP Center/[facility] [place], [place],[facility], [facility] Consult Date of Admission Apr 17, 2018 at 12:56 Home Medications Home Medications Reviewed patient Home Medication Reconciliation performed by pharmacy medication reconciliations plastic process technician and/or nursing. Patients Allergies have been reviewed. Allergies Coded Allergies: Bacitracin Zinc (Unverified Allergy, Unknown, 07/11/17) Penicillins (Unverified Allergy, Unknown, HAS RECEIVED ROCEPHIN DURING PREVIOUS ADMIT, 07/11/17) bacitracin (Unverified Allergy, Unknown, 07/11/17) colistimethate sodium (Unverified Allergy, Unknown, 07/11/17) gramicidin D (Unverified Allergy, Unknown, 07/11/17) neomycin sulfate (Unverified Allergy, Unknown, 07/11/17) polymyxin B (Unverified Allergy, Unknown, 07/11/17) polymyxin B sulfate (Unverified Allergy, Unknown, 07/11/17) pramoxine HCl (Unverified Allergy, Unknown, 07/11/17) [id number] Hx Patient Social History Living Status: [place] Alcohol Use: Denies Use Recreational Drug Use: No Smoking Status: Never a Smoker Type Used: Cigarettes Recent Foreign Travel: No Contact w/other who traveled: No Recent Hopitalizations: Yes (October 2017- [facility]) Recent Infectious Disease Expo: No Physical Abuse Screen: No Sexual Abuse: No Immunizations Up To Date Tetanus Booster (TDap): Unknown Date of Pneumonia Vaccine: Feb 20, 2017 Date of Influenza Vaccine: Mar 09, 2017 Past Medical History PMHx: HTN HERNAN on bipap IDDM - last HgbA1C 11.3 on 2017 Stage 4 CKD baseline Cr 2-2.5 h/o multiple TIAs h/o DVT, IVC filter in place Iron deficiency anemia Renal osteodystrophy CAD s/p cardiac arrest with ROSC 10/15/17 aortic valve sclerosis polyneuropathy diabetic retinopathy Morbid Obesity, BMI 60-70 SurgHx: Cholecystectomy Tonsillectomy and adenoidectomy Carotid endarterectomy Hysterectomy Laser eye surgery Right foot tumor removal Osteomyelitis left fourth toe debridement Family Medical History Significant Family History: Heart Disease, Diabetes, Hypertension Family History: Alzheimer's disease 19 MOTHER Cardiovascular disease Cataract 19 MOTHER Cataracts Congestive heart failure 19 FATHER Dementia 19 MOTHER Dementia 19 MOTHER Diabetes mellitus Family history: Allergy 19 FATHER 19 MOTHER Family history: Alzheimer's disease 19 MOTHER Family history: Cardiovascular disease 19 MOTHER Family history: Diabetes mellitus G8 BROTHER G8 BROTHER G8 SISTER Family history: Hypertension 19 FATHER Hearing loss G8 BROTHER Heart disease 19 FATHER G8 BROTHER G8 BROTHER G8 SISTER Hypertension 19 FATHER 19 MOTHER G8 BROTHER Infertile 19 FATHER 19 MOTHER G8 BROTHER G8 BROTHER G8 SISTER Myocardial infarction 19 FATHER Myocardial infarction 19 FATHER Psychotic disorder 19 FATHER Severe allergy G8 BROTHER G8 BROTHER Stroke 19 FATHER No Family History of: AIDS Abdominal aortic aneurysm Abdominal aortic aneurysm Centerpoint's disease Centerpoint's disease Alcoholism Alcoholism Aphasia Aphasia Arthritis Asthma Cancer Cancer of colon Cancer of mouth Chest pain Colon cancer Completed stroke Congenital disease Congenital heart disease Congenital heart disease Coronary thrombosis Cystic fibrosis Cystic fibrosis Dysphagia Family history: Arthritis Family history: Asthma Family history: Breast disease Family history: Coronary thrombosis Family history: Gastrointestinal disease Family history: Glaucoma Family history: Osteoporosis Family history: Thyroid disorder Fibrocystic disease of breast Gastroenteritis Glaucoma Headache Headache disorder Hereditary disease History of - anemia History of - disorder History of - respiratory disease History of drug abuse Human immunodeficiency virus (HIV) seropositivity Hypercholesterolemia Hypercholesterolemia Kidney disease Malignant neoplasm of lung Neoplasm Not obtainable due to adoption Osteoporosis Parkinson's disease Parkinson's disease Prostate cancer Psychosocial problem Seizure disorder Seizure disorder Thyroid disease Tuberculosis Tuberculosis Visual disorder Visual impairment Review of Systems (CHC) Constitutional: chills; No fever; weakness EENTM: no symptoms reported; No nose congestion, No throat pain, No throat swelling Respiratory: cough, dyspnea on exertion; No hemoptysis; orthopnea, short of breath Cardiovascular: No chest pain; edema; No palpitations Gastrointestinal: no symptoms reported; No abdominal pain, No constipation, No diarrhea, No nausea, No vomiting Genitourinary: no symptoms reported; No dysuria, No frequency, No hematuria : No Musculoskeletal: back pain (chronic) Skin: no symptoms reported Psychiatric/Neurological: No Symptoms Reported Reviewed Test Results Reviewed Test Results Lab Laboratory Tests Test 04/17/18 20:12 04/17/18 21:10 04/17/18 22:11 04/17/18 22:35 Range/Units Glucometer 95 109 117 H 70-110 MG/DL Sodium Level 140 135-145 MMOL/L Potassium Level 4.0 3.6-5.0 MMOL/L Chloride Level 98 98-107 MMOL/L Carbon Dioxide Level 33 H 21-32 MMOL/L Anion Gap 9 5-14 MMOL/L Blood Urea Nitrogen 80 H 7-18 MG/DL Creatinine 2.29 H 0.60-1.30 MG/DL Estimat Glomerular Filtration Rate 21 BUN/Creatinine Ratio 35 Glucose Level 92 70-105 MG/DL Calcium Level 9.6 8.5-10.1 MG/DL Test 04/17/18 22:41 04/17/18 23:56 04/18/18 01:01 04/18/18 02:01 Range/Units Glucometer 140 H 160 H 143 H 70-110 MG/DL Test 04/18/18 03:05 04/18/18 03:07 04/18/18 03:15 04/18/18 04:04 Range/Units White Blood Count 10.1 4.3-11.0 10^3/uL Red Blood Count 2.52 L 4.35-5.85 10^6/uL Hemoglobin 7.0 L 11.5-16.0 G/DL Hematocrit 24 L 35-52 % Mean Corpuscular Volume 96 80-99 FL Mean Corpuscular Hemoglobin 28 25-34 PG Mean Corpuscular Hemoglobin Concent 29 L 32-36 G/DL Red Cell Distribution Width 17.5 H 10.0-14.5 % Platelet Count 340 130-400 10^3/uL Mean Platelet Volume 8.8 7.4-10.4 FL Neutrophils (%) (Auto) 75 42-75 % Lymphocytes (%) (Auto) 15 12-44 % Monocytes (%) (Auto) 11 0-12 % Eosinophils (%) (Auto) 0 0-10 % Basophils (%) (Auto) 0 0-10 % Neutrophils # (Auto) 7.5 1.8-7.8 X 10^3 Lymphocytes # (Auto) 1.5 1.0-4.0 X 10^3 Monocytes # (Auto) 1.1 H 0.0-1.0 X 10^3 Eosinophils # (Auto) 0.0 0.0-0.3 10^3/uL Basophils # (Auto) 0.0 0.0-0.1 10^3/uL Sodium Level 140 135-145 MMOL/L Potassium Level 4.1 3.6-5.0 MMOL/L Chloride Level 98 98-107 MMOL/L Carbon Dioxide Level 33 H 21-32 MMOL/L Anion Gap 9 5-14 MMOL/L Blood Urea Nitrogen 79 H 7-18 MG/DL Creatinine 2.28 H 0.60-1.30 MG/DL Estimat Glomerular Filtration Rate 21 BUN/Creatinine Ratio 35 Glucose Level 113 H 70-105 MG/DL Calcium Level 9.7 8.5-10.1 MG/DL Corrected Calcium 10.8 H 8.5-10.1 MG/DL Phosphorus Level 4.6 2.3-4.7 MG/DL Magnesium Level 2.4 1.8-2.4 MG/DL Total Bilirubin 0.2 0.1-1.0 MG/DL Aspartate Amino Transf (AST/SGOT) 31 5-34 U/L Alanine Aminotransferase (ALT/SGPT) 46 0-55 U/L Alkaline Phosphatase 161 H 40-136 U/L B-Type Natriuretic Peptide 530.4 H <100.0 PG/ML Total Protein 6.6 6.4-8.2 GM/DL Albumin 2.6 L 3.2-4.5 GM/DL Glucometer 134 H 134 H 70-110 MG/DL Blood Gas Puncture Site L RAD Blood Gas Patient Temperature 98.5 Arterial Blood pH 7.37 7.37-7.43 Arterial Blood Partial Pressure CO2 61 H 35-45 MMHG Arterial Blood Partial Pressure O2 116 H 79-93 MMHG Arterial Blood HCO3 35 H 23-27 MMOL/L Arterial Blood Total CO2 36.4 H 21.0-31.0 MMOL/L Arterial Blood Oxygen Saturation 99 94-100 % Arterial Blood Base Excess 9.2 H -2.5-2.5 MMOL/L James Test YES-POS Blood Gas Ventilator Setting NO Blood Gas Inspired Oxygen 50% BIPAP Test 04/18/18 05:05 04/18/18 06:10 04/18/18 06:58 04/18/18 08:16 Range/Units Glucometer 116 H 135 H 147 H 212 H 70-110 MG/DL Test 04/18/18 09:14 04/18/18 10:08 04/18/18 12:57 04/18/18 16:31 Range/Units Glucometer 221 H 224 H 213 H 297 H 70-110 MG/DL Radiology Date of Exam: 04/18/18 CHEST 1 VIEW, AP/PA ONLY INDICATION: Anemia, congestive heart failure and UTI. Comparison made with prior examination 04/17/2018. FINDINGS: There is cardiomegaly. There is some venous congestion. There are bilateral perihilar infiltrates. There is no pleural effusion or pneumothorax. Mediastinum is unremarkable. IMPRESSION: Bilateral perihilar infiltrates. Cardiomegaly and mild central pulmonary venous congestion. Physical Exam-(CHC) Physical Exam Vital Signs VS - Last 72 Hours, by Label 04/17/18 04/17/18 04/17/18 04/17/18 11:06 11:06 13:12 13:30 Temp 98.3 Pulse 82 71 Resp 20 20 B/P (MAP) 103/42 (62) 98/48 (65) Pulse Ox 84 94 91 O2 Delivery Nasal Cannula Non Rebreather Vapotherm Vapotherm O2 Flow Rate 6.00 8.00 25.00 FiO2 45 04/17/18 04/17/18 04/17/18 04/17/18 13:43 13:45 14:00 14:15 Temp 97.3 Pulse 73 74 73 73 Resp 7 20 B/P (MAP) 119/67 (84) 111/54 (73) 110/53 (72) Pulse Ox 92 93 92 O2 Delivery Vapotherm Vapotherm Vapotherm O2 Flow Rate 45.00 45.00 45.00 25.00 25.00 25.00 04/17/18 04/17/18 04/17/18 04/17/18 14:30 14:45 15:00 15:37 Pulse 73 74 75 72 Resp 21 19 17 19 B/P (MAP) 108/53 (71) 110/55 (73) 113/54 (73) Pulse Ox 92 90 90 97 O2 Delivery Vapotherm Vapotherm Vapotherm O2 Flow Rate 45.00 45.00 45.00 35.00 25.00 25.00 25.00 18 04/17/18 04/17/18 04/17/18 15:50 16:00 16:00 17:00 Pulse 70 65 Resp 42 17 B/P (MAP) 140/67 (91) 121/74 (90) Pulse Ox 97 99 O2 Delivery NIV Bilevel NIV Bilevel NIV Bilevel NIV Bilevel O2 Flow Rate 35.00 35.00 35.00 35.00 04/17/18 04/17/18 04/17/18 04/17/18 18:00 18:15 19:00 19:00 Pulse 64 66 70 70 Resp 14 20 16 B/P (MAP) 134/70 (91) 124/66 (85) 90/40 (57) Pulse Ox 90 95 O2 Delivery NIV Bilevel NIV Bilevel NIV Bilevel O2 Flow Rate 35.00 35.00 35.00 04/17/18 04/17/18 04/17/18 04/17/18 19:05 20:00 20:00 21:00 Temp 97.7 Pulse 68 72 75 Resp 20 13 27 B/P (MAP) 153/67 (95) 150/66 (94) Pulse Ox 98 97 97 O2 Delivery NIV Bilevel NIV Bilevel NIV Bilevel O2 Flow Rate 30.00 30.00 30.00 30.00 04/17/18 04/17/18 04/17/18 04/18/18 22:00 22:22 23:00 00:00 Pulse 77 70 77 Resp 18 21 34 B/P (MAP) 156/57 (90) 130/49 (76) Pulse Ox 91 97 94 O2 Delivery NIV Bilevel NIV Bilevel NIV Bilevel O2 Flow Rate 30.00 30.00 30.00 30.00 04/18/18 04/18/18 04/18/18 04/18/18 00:00 00:00 00:05 00:11 Temp 97.3 Pulse 78 81 81 Resp 18 20 16 B/P (MAP) 155/56 (89) Pulse Ox 96 99 99 O2 Delivery NIV Bilevel NIV Bilevel O2 Flow Rate 30.00 50.00 50.00 04/18/18 04/18/18 04/18/18 04/18/18 01:00 01:00 02:00 02:10 Pulse 81 81 79 72 Resp 18 16 21 B/P (MAP) 143/60 (87) 132/52 (78) Pulse Ox 98 99 99 O2 Delivery NIV Bilevel NIV Bilevel O2 Flow Rate 50.00 50.00 30.00 04/18/18 04/18/18 04/18/18 04/18/18 03:00 03:58 04:00 04:00 Temp 98.5 Pulse 80 80 Resp 20 17 B/P (MAP) 121/49 (73) 139/69 (92) Pulse Ox 97 O2 Delivery NIV Bilevel NIV Bilevel NIV Bilevel O2 Flow Rate 50.00 30.00 50.00 04/18/18 04/18/18 04/18/18 04/18/18 05:00 06:00 06:45 07:00 Pulse 84 79 84 Resp 16 15 B/P (MAP) 138/65 (89) 132/61 (84) Pulse Ox 97 99 96 O2 Delivery NIV Bilevel NIV Bilevel Vapotherm O2 Flow Rate 50.00 50.00 20.00 FiO2 45 04/18/18 04/18/18 04/18/18 04/18/18 07:00 07:39 07:50 08:00 Temp 98.5 Pulse 84 93 Resp 5 20 B/P (MAP) 87/63 (71) 120/70 (87) Pulse Ox 94 95 O2 Delivery NIV Bilevel Vapotherm Vapotherm Vapotherm O2 Flow Rate 50.00 45.00 25.00 45.00 25.00 FiO2 45 04/18/18 04/18/18 04/18/18 04/18/18 09:00 10:00 10:33 11:00 Pulse 96 97 96 Resp 27 14 17 B/P (MAP) 131/61 (84) 138/57 (84) 127/44 (71) Pulse Ox 91 93 94 99 O2 Delivery Vapotherm Vapotherm Vapotherm Vapotherm O2 Flow Rate 45.00 45.00 20.00 45.00 25.00 25.00 25.00 FiO2 45 04/18/18 04/18/18 04/18/18 04/18/18 12:00 12:50 12:55 13:00 Temp 100.3 Pulse 97 100 Resp 10 B/P (MAP) 110/81 (91) O2 Delivery Vapotherm Vapotherm Vapotherm O2 Flow Rate 45.00 20.00 45.00 25.00 20.00 FiO2 45 04/18/18 04/18/18 04/18/18 04/18/18 13:00 14:00 14:26 15:00 Pulse 97 99 96 98 Resp 18 24 27 17 B/P (MAP) 117/79 (92) 189/84 (119) 157/95 (115) Pulse Ox 95 100 98 98 O2 Delivery Vapotherm Vapotherm Vapotherm O2 Flow Rate 45.00 45.00 45.00 45.00 20.00 20.00 20.00 04/18/18 04/18/18 04/18/18 04/18/18 16:00 16:00 16:38 17:00 Temp 101.0 Pulse 98 97 Resp 21 19 B/P (MAP) 196/110 (138) 200/99 (132) Pulse Ox 97 92 O2 Delivery Vapotherm Vapotherm Vapotherm O2 Flow Rate 45.00 20.00 45.00 20.00 20.00 FiO2 45 04/18/18 04/18/18 04/18/18 18:00 18:16 18:52 Temp 100.8 Pulse 87 Resp 28 B/P (MAP) 168/109 (128) Pulse Ox 100 98 O2 Delivery Vapotherm Vapotherm O2 Flow Rate 45.00 20.00 20.00 FiO2 45 Capillary Refill : Less Than 3 Seconds General Appearance: no apparent distress, obese HEENT: PERRL/EOMI Respiratory: decreased breath sounds, crackles, wheezing Cardiovascular: normal peripheral pulses, regular rate, rhythm, no murmur Gastrointestinal: normal bowel sounds, non tender, soft, no organomegaly Back: no CVA tenderness, no vertebral tenderness Extremities: no calf tenderness, normal capillary refill, pedal edema (2+) Neurologic/Psychiatric: 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 nml as tested, alert, normal mood/affect, oriented x 3, other (Patient is bed bound at baseline) Skin: normal color, warm/dry Lymphatic: no adenopathy Assessment/Plan Assessment/Plan Admission Status: Inpatient Order (span 2 midnights) Reason for Inpatient Admission: requiring increase oxygen supplementation and ICU care (1) Acute and chronic respiratory failure with hypoxia Status: Acute Assessment & Plan: - Dr Fernandez consulted, patient transitioned to vapotherm while awake and bipap when sleeping, CXR with some mild pulmonary congestion, MAT protocol (2) Acute renal failure superimposed on stage 4 chronic kidney disease Status: Acute Assessment & Plan: - Gentle hydration, patient is almost at her baseline 2-2.5 , adjust meds based on kidney function Qualifiers: Qualified Codes: N17.9 - Acute kidney failure, unspecified; N18.4 - Chronic kidney disease, stage 4 (severe) (3) Cardiomegaly Status: Chronic Assessment & Plan: - Elevated BNP,monitoring fluid balance closely (4) UTI (urinary tract infection) Status: Acute Assessment & Plan: - Continue antibiotics, culture pending Qualifiers: Qualified Codes: N30.01 - Acute cystitis with hematuria (5) HLD (hyperlipidemia) Status: Chronic Assessment & Plan: - Continue home statin Qualifiers: Qualified Codes: E78.2 - Mixed hyperlipidemia (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 Assessment & Plan: - Will adjust home insulin given low blood sugars on admission (7) Obesity hypoventilation syndrome Status: Chronic (8) Sleep apnea with use of nocturnal bilevel positive airway pressure (BPAP) Status: Chronic Assessment & Plan: - Continue home bipap settings (9) Iron deficiency anemia Status: Chronic (10) Coronary artery disease Status: Chronic Assessment & Plan: - Continue ASA, Plavix Qualifiers: Qualified Codes: I25.10 - Atherosclerotic heart disease of [place] coronary artery without angina pectoris (11) DVT prophylaxis Status: Acute Assessment & Plan: lovenox Clinical Quality Measures DVT/VTE Risk/Contraindication: Risk Factor Score Per Nursin RFS Level Per Nursing on Admit: 4+=Very High Copy Copies To 1: Shria WOODY APRN GAULT, HOLLY R MD Apr 18, 2018 20:07
[2018-04-18] MEDS: ROSUVASTATIN 20 MG (CRESTOR) TABLET PO SCH (20:51)
[2018-04-18] MEDS ORDERED: GABAPENTIN 100 MG (NEURONTIN) CAP PO SCH (21:00)
[2018-04-18] MEDS ORDERED: CLONIDINE HCL 0.3 MG PO SCH (21:00)
[2018-04-18] MEDS ORDERED: NON-FORMULARY MEDICATION 1 EA EA (Hydralazine HCl 25 MG) PO SCH (21:00)
[2018-04-19] VITALS (20 sets, daily range): BP systolic 117–214; BP diastolic 59–115
[2018-04-19] MEDS: RT-ALBUTEROL/IPRATROPIUM 3 ML (DUONEB) VIAL INH SCH ×6 (01:35→21:30)
[2018-04-19 04:40] LABS: CALCIUM 9.6 MG/DL (8.5-10.1); CREATININE SERUM 2.09 MG/DL (0.60-1.30); MAGNESIUM 2.1 MG/DL (1.8-2.4); PHOSPHORUS 3.5 MG/DL (2.3-4.7); POTASSIUM 3.8 MMOL/L (3.6-5.0)
[2018-04-19] MEDS: POTASSIUM CL 10MEQ/50ML IVPB 50 ML IV SCH (05:11)
[2018-04-19] MEDS: KCL 20 MEQ TAB (K-DUR) PO SCH (05:12)
[2018-04-19] MEDS: MAGNESIUM 1 GM/100 ML IVPB 100 ML IV SCH (05:12)
--- NOTE | 2018-04-19 06:14 | Pulmonary Progress Note ---
Subjective Time Seen by a Provider: 06:21 Subjective/Events-last exam PT appears to be doing better. Sepsis Event Evaluation Height, Weight, BMI Height: 5'5.00" Weight: 322lbs. 5.0oz. [id number]; 52.1 BMI Method:Stated Focused Exam Lactate Level 04/17/18 11:11: Lactic Acid Level 0.53 Exam Exam Vital Signs Date Time Temp Pulse Resp B/P (MAP) Pulse Ox O2 Delivery O2 Flow Rate FiO2 04/19/18 06:00 80 20 151/65 (93) 100 NIV Bilevel 50.00 04/19/18 05:00 78 15 142/71 (94) 100 NIV Bilevel 50.00 04/19/18 04:05 79 26 100 50.00 04/19/18 04:00 81 23 164/81 (108) 100 NIV Bilevel 50.00 04/19/18 04:00 NIV Bilevel 45 04/19/18 04:00 99.2 04/19/18 03:00 79 20 125/84 (98) 100 NIV Bilevel 50.00 04/19/18 02:00 70 22 160/60 (93) 100 NIV Bilevel 50.00 04/19/18 01:35 68 21 100 NIV Bilevel 50.00 04/19/18 01:35 67 20 98 50.00 04/19/18 01:00 73 17 154/70 (98) 100 NIV Bilevel 45.00 04/19/18 01:00 73 04/19/18 00:20 69 21 97 45.00 04/19/18 00:00 69 24 117/59 (78) 93 NIV Bilevel 45.00 04/19/18 00:00 98.7 04/19/18 00:00 NIV Bilevel 45 04/18/18 23:14 70 24 96 NIV Bilevel 45.00 04/18/18 23:00 71 21 133/62 (85) 96 NIV Bilevel 35.00 04/18/18 22:48 73 19 98 35.00 04/18/18 22:00 75 32 129/57 (81) 100 NIV Bilevel 35.00 04/18/18 22:00 99.7 04/18/18 21:01 78 21 98 35.00 04/18/18 21:00 100.0 NIV Bilevel 35.00 04/18/18 21:00 80 23 127/56 (79) 100 NIV Bilevel 35.00 04/18/18 20:00 84 25 107/51 (69) 100 Vapotherm 45.00 20.00 04/18/18 20:00 Vapotherm 20.00 45 04/18/18 20:00 99.8 Vapotherm 45.00 20.00 04/18/18 19:00 81 10 139/56 (83) 100 Vapotherm 45.00 20.00 04/18/18 19:00 81 04/18/18 18:52 98 Vapotherm 20.00 45 04/18/18 18:16 100.8 04/18/18 18:00 87 28 168/109 (128) 100 Vapotherm 45.00 20.00 04/18/18 17:00 97 19 200/99 (132) 92 Vapotherm 45.00 20.00 04/18/18 16:38 101.0 04/18/18 16:00 Vapotherm 20.00 45 04/18/18 16:00 98 21 196/110 (138) 97 Vapotherm 45.00 20.00 04/18/18 15:00 98 17 157/95 (115) 98 Vapotherm 45.00 20.00 04/18/18 14:26 96 27 98 45.00 04/18/18 14:00 99 24 189/84 (119) 100 Vapotherm 45.00 20.00 04/18/18 13:00 97 18 117/79 (92) 95 Vapotherm 45.00 20.00 04/18/18 13:00 100 04/18/18 12:55 100.3 Vapotherm 45.00 20.00 04/18/18 12:50 Vapotherm 20.00 45 04/18/18 12:00 97 10 110/81 (91) Vapotherm 45.00 25.00 04/18/18 11:00 96 17 127/44 (71) 99 Vapotherm 45.00 25.00 04/18/18 10:33 94 Vapotherm 20.00 45 04/18/18 10:00 97 14 138/57 (84) 93 Vapotherm 45.00 25.00 04/18/18 09:00 96 27 131/61 (84) 91 Vapotherm 45.00 25.00 04/18/18 08:00 93 20 120/70 (87) 95 Vapotherm 45.00 25.00 04/18/18 07:50 Vapotherm 25.00 45 04/18/18 07:39 98.5 Vapotherm 45.00 18 07:00 84 5 87/63 (71) 94 NIV Bilevel 50.00 04/18/18 07:00 84 04/18/18 06:45 96 Vapotherm 20.00 45 I & O 04/19/18 07:00 Intake Total 3250 ml Output Total 1575 ml Balance 1675 ml Height & Weight Height: 5'5.00" Weight: 322lbs. 5.0oz. 146.799124bu; 52.1 BMI Method:Stated General Appearance: WD/WN, Mild Distress HEENT: PERRL/EOMI, TMs Normal, Normal ENT Inspection, Pharynx Normal Neck: Full Range of Motion, Normal Inspection, Non Tender, Supple Respiratory: No Accessory Muscle Use, Decreased Breath Sounds, Respiratory Distress (on bipap) Cardiovascular: Regular Rate, Rhythm, No Murmur Capillary Refill: Less Than 3 Seconds Gastrointestinal: normal bowel sounds, non tender, soft, no organomegaly Neurologic/Psychiatric: Normal Mood/Affect Skin: Warm/Dry, Pallor Results Lab Laboratory Tests 04/17/18 11:11 04/17/18 22:35 04/18/18 03:05 04/19/18 04:10 Assessment/Plan Assessment/Plan Acute respiratory failure with hypoxia -BiPAP and monitor -Trial off BiPAP and on Vapotherm this AM -ABG is improved -SVNS Obesity OHS/HERNAN Atelectasis -activity as tolerated -IS UTI -Sandoval cultures -ceftriaxone D/C Merrem Anemia -Monitor -Check occult stool -Visits cancer center for this -She is [employer]hov[employer] Witness and therefore does not accept blood products Acute renal failure with dehydration - improving -IVF -Monitor -Baseline Cr likely ~2 based on previous visits Metabolic encephalopathy Hypercalcemia -Monitor Elevated LFT's -Monitor BNP elevated -Lasix Pt is doing better. Will transfer to 4th floor. CORAZON SERVIN DO Apr 19, 2018 06:14
--- NOTE | 2018-04-19 06:53 | Diagnostic Imaging Report ---
INDICATION: Respiratory failure Portable chest 3:21 AM Right jugular central line tip projects over the SVC. There is some right perihilar and left basilar discoid atelectasis. There is no effusion or pneumothorax. IMPRESSION: Improving aeration of the lungs with some residual right perihilar and left basilar atelectasis. Dictated by: Dictated on workstation # [id number]
[2018-04-19] MEDS: inSUlin ASPART (NovoLOG) 1 UNIT/0.01 ML (CHARGE PER UNIT) SC SCH ×4 (06:56→21:18)
[2018-04-19] MEDS: CATHETER FLUSH 10 ML SYR IV SCH ×3 (07:05→21:20)
[2018-04-19] MEDS: FERROUS SULF 325 MG (IRON) TAB PO SCH ×2 (07:05→16:20)
[2018-04-19] MEDS: LACTATED RINGERS 1,000 ML IV SCH ×2 (07:23→21:18)
[2018-04-19] MEDS: ASPIRIN E.C. 81 MG (ECOTRIN) TAB PO SCH (08:39)
[2018-04-19] MEDS: GABAPENTIN 300 MG (NEURONTIN) CAP PO SCH ×3 (08:39→21:17)
[2018-04-19] MEDS: hydrALAZINE (APRESOLINE) 25 MG TAB PO SCH ×3 (08:39→21:17)
[2018-04-19] MEDS: cloNIDine 0.1 MG (CATAPRES) TAB PO SCH ×2 (08:40→21:17)
[2018-04-19] MEDS: CLOPIDOGREL 75 MG (PLAVIX) TABLET PO SCH (08:40)
[2018-04-19] MEDS ORDERED: NON-FORMULARY MEDICATION 1 EA EA (Aspirin (Aspir 81) 81 MG) PO SCH (09:00)
[2018-04-19] MEDS: cefTRIAXone 1 GM/NS 50 ML IVPB IV SCH ×2 (12:11)
[2018-04-19] MEDS: ACETAMINOPHEN 325 MG TABLET PO PRN (14:05)
[2018-04-19] MEDS ORDERED: TRIA1CAP4 PO (14:58)
--- NOTE | 2018-04-19 20:28 | Progress Note (SOAP) ---
Subjective Subjective/Events-last exam Patient feeling better this AM. Will transfer to floor. + BM x 2 last night. Review of Systems Date Seen by Provider: Apr 19, 2018 Time Seen by Provider: 09:00 Pulmonary: Dyspnea, Cough Cardiovascular: Edema; No: Chest Pain, Palpitations Gastrointestinal: No: Nausea, Vomiting, Abdominal Pain Neurological: Weakness Focused Exam Lactate Level 04/17/18 11:11: Lactic Acid Level 0.53 Objective Exam Last Set of Vital Signs Vital Signs Date Time Temp Pulse Resp B/P (MAP) Pulse Ox O2 Delivery O2 Flow Rate FiO2 04/19/18 18:50 90 Vapotherm 15.00 40 04/19/18 15:40 98.8 96 22 141/64 (89) Capillary Refill : Less Than 3 Seconds I&O Intake and Output 04/19/18 00:00 Intake Total 3250 ml Output Total 1925 ml Balance 1325 ml Intake Oral 1350 ml IV Total 1900 ml Output Urine Total 1925 ml General: Alert, Oriented X3, Cooperative, No Acute Distress HEENT: Mucous Memb Moist/[place] Lungs: Other (diminished breath sounds, + wheezing bilaterally) Heart: Regular Rate, No Murmurs Abdomen: Normal Bowel Sounds, Soft, No Tenderness, No Masses Extremities: Other (2+ pitting edema bilaterally) Results/Procedures Lab Laboratory Tests 04/18/18 20:48: Glucometer 345H 04/19/18 04:10: Sodium Level 139, Potassium Level 3.8, Chloride Level 98, Carbon Dioxide Level 31, Anion Gap 10, Blood Urea Nitrogen 70H, Creatinine 2.09H, Estimat Glomerular Filtration Rate 24, BUN/Creatinine Ratio 33, Glucose Level 202H, Calcium Level 9.6, Phosphorus Level 3.5, Magnesium Level 2.1 04/19/18 11:48: Glucometer 237H 04/19/18 16:04: Glucometer 330H 04/19/18 20:16: Glucometer 339H Microbiology 04/17/18 Blood Culture - Preliminary, Resulted No growth 04/17/18 MRSA Screen - Final, Complete 04/17/18 Urine Culture - Final, Complete Escherichia coli Radiology Date of Exam: 04/18/18 CHEST 1 VIEW, AP/PA ONLY INDICATION: Anemia, congestive heart failure and UTI. Comparison made with prior examination 04/17/2018. FINDINGS: There is cardiomegaly. There is some venous congestion. There are bilateral perihilar infiltrates. There is no pleural effusion or pneumothorax. Mediastinum is unremarkable. IMPRESSION: Bilateral perihilar infiltrates. Cardiomegaly and mild central pulmonary venous congestion. Assessment/Plan Assessment/Plan (1) Acute and chronic respiratory failure with hypoxia Status: Acute Assessment & Plan: - Dr Fernandez consulted, patient transitioned to vapotherm while awake and bipap when sleeping, CXR with some mild pulmonary congestion, MAT protocol 04/19- improved today, will continue to titrate as tolerated (2) Acute renal failure superimposed on stage 4 chronic kidney disease Status: Acute Assessment & Plan: - Gentle hydration, patient is almost at her baseline 2-2.5 , adjust meds based on kidney function 04/19- at baseline Qualifiers: Qualified Codes: N17.9 - Acute kidney failure, unspecified; N18.4 - Chronic kidney disease, stage 4 (severe) (3) Cardiomegaly Status: Chronic Assessment & Plan: - Elevated BNP,monitoring fluid balance closely (4) UTI (urinary tract infection) Status: Acute Assessment & Plan: - Continue antibiotics, culture pending 04/19- Ecoli, continue rocephin Qualifiers: Qualified Codes: N30.01 - Acute cystitis with hematuria (5) HLD (hyperlipidemia) Status: Chronic Assessment & Plan: - Continue home statin Qualifiers: Qualified Codes: E78.2 - Mixed hyperlipidemia (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 Assessment & Plan: - Will adjust home insulin given low blood sugars on admission (7) Obesity hypoventilation syndrome Status: Chronic (8) Sleep apnea with use of nocturnal bilevel positive airway pressure (BPAP) Status: Chronic Assessment & Plan: - Continue home bipap settings (9) Iron deficiency anemia Status: Chronic (10) Coronary artery disease Status: Chronic Assessment & Plan: - Continue ASA, Plavix Qualifiers: Qualified Codes: I25.10 - Atherosclerotic heart disease of [place] coronary artery without angina pectoris (11) DVT prophylaxis Status: Acute Assessment & Plan: lovenox Clinical Quality Measures DVT/VTE Risk/Contraindication: Risk Factor Score Per Nursin RFS Level Per Nursing on Admit: 4+=Very High JENN MCDONALD MD Apr 19, 2018 20:28
[2018-04-19] MEDS: ROSUVASTATIN 20 MG (CRESTOR) TABLET PO SCH (21:17)
[2018-04-20] VITALS: BP 141/71
[2018-04-20] MEDS: RT-ALBUTEROL/IPRATROPIUM 3 ML (DUONEB) VIAL INH SCH ×6 (02:10→21:26)
[2018-04-20] MEDS: CATHETER FLUSH 10 ML SYR IV SCH ×3 (05:35→21:32)
[2018-04-20 05:56] LABS: CALCIUM 9.3 MG/DL (8.5-10.1); CREATININE SERUM 1.87 MG/DL (0.60-1.30); PHOSPHORUS 3.6 MG/DL (2.3-4.7); POTASSIUM 3.9 MMOL/L (3.6-5.0)
[2018-04-20] MEDS: FERROUS SULF 325 MG (IRON) TAB PO SCH ×2 (06:24→16:34)
[2018-04-20] MEDS: inSUlin ASPART (NovoLOG) 1 UNIT/0.01 ML (CHARGE PER UNIT) SC SCH ×4 (06:24→21:32)
--- NOTE | 2018-04-20 07:18 | Diagnostic Imaging Report ---
EXAMINATION: Portable semierect AP chest at 3:25 AM INDICATION: Respiratory distress The heart size is stable when compared to 04/19/2018. There does seem to be somewhat greater involvement of the left lung base by atelectasis/infiltrate than noted on the prior study. The band of atelectasis/infiltrate extending from the right hilum to the periphery of the right midlung seen previously is again evident and no different. The upper lungs are clear. The mediastinum is not widened. The osseous structures are intact. The central venous catheter on the right remains unchanged in position. IMPRESSION: The overall appearance of the chest has not changed significantly. There does seem to be somewhat greater involvement of the left lung base by atelectasis/infiltrate, however. A followup study would be recommended for continued evaluation. Dictated by: Dictated on workstation # [id number]
--- NOTE | 2018-04-20 07:26 | Pulmonary Progress Note ---
Subjective Time Seen by a Provider: 07:25 Subjective/Events-last exam PT is doing better. Sepsis Event Evaluation Height, Weight, BMI Height: 5'5.00" Weight: 325lbs. 5.0oz. 147.283150ev; 52.1 BMI Method:Stated Focused Exam Lactate Level 04/17/18 11:11: Lactic Acid Level 0.53 Exam Exam Vital Signs Date Time Temp Pulse Resp B/P (MAP) Pulse Ox O2 Delivery O2 Flow Rate FiO2 04/20/18 06:22 70 20 98 50.00 04/20/18 02:10 75 21 95 50.00 04/20/18 00:20 77 20 97 50.00 04/20/18 00:00 98.6 88 18 141/71 (94) 100 NIV Bilevel 04/19/18 21:30 NIV Bilevel 50 04/19/18 21:30 98 23 94 50.00 04/19/18 20:00 Vapotherm 15.00 40 04/19/18 19:20 99.0 98 22 161/69 (99) 90 Vapotherm 40.00 15.00 04/19/18 18:50 90 Vapotherm 15.00 40 04/19/18 15:40 98.8 96 22 141/64 (89) 92 Vapotherm 40.00 15.00 04/19/18 15:01 99.1 04/19/18 14:55 88 Vapotherm 10.00 35 04/19/18 14:20 99.1 97 24 177/71 (106) 91 Vapotherm 35.00 10.00 04/19/18 13:00 101.5 Vapotherm 35.00 10.00 04/19/18 13:00 105 04/19/18 13:00 101.5 104 12 151/62 (91) 93 Vapotherm 35.00 10.00 04/19/18 12:00 105 32 143/77 (99) 94 Vapotherm 40.00 15.00 04/19/18 12:00 NIV Bilevel 45 04/19/18 11:00 97 38 153/91 (111) 94 Vapotherm 40.00 15.00 04/19/18 10:21 98 Vapotherm 15.00 40 04/19/18 10:00 93 23 214/115 (148) 97 Vapotherm 40.00 15.00 04/19/18 09:00 92 17 173/76 (108) 100 Vapotherm 40.00 15.00 04/19/18 08:00 99.7 80 20 151/65 (93) 100 Vapotherm 40.00 15.00 04/19/18 08:00 NIV Bilevel 45 I & O 04/20/18 07:00 Intake Total 1650 ml Output Total 700 ml Balance 950 ml Height & Weight Height: 5'5.00" Weight: 325lbs. 5.0oz. 147.002412pd; 52.1 BMI Method:Stated General Appearance: No Apparent Distress, WD/WN HEENT: PERRL/EOMI, TMs Normal, Normal ENT Inspection, Pharynx Normal Neck: Full Range of Motion, Normal Inspection, Non Tender, Supple Respiratory: Chest Non Tender, Lungs Clear, No Accessory Muscle Use Cardiovascular: Regular Rate, Rhythm, No Murmur Capillary Refill: Less Than 3 Seconds Gastrointestinal: non tender, soft Neurologic/Psychiatric: Normal Mood/Affect Skin: Warm/Dry Results Lab Laboratory Tests 04/19/18 04:10 04/20/18 05:30 Assessment/Plan Assessment/Plan Acute respiratory failure with hypoxia -BiPAP QHS and PRN -SVNS Obesity OHS/HERANN Atelectasis -activity as tolerated -IS UTI -Sandoval cultures -ceftriaxone Anemia -Monitor -Check occult stool -Visits [facility] for this -She is Jehov[employer]s Witness and therefore does not accept blood products Acute renal failure with dehydration - improving Elevated LFT's -Monitor BNP elevated -Lasix Pt is doing better. Will transfer to 4th floor. CORAZON SERVIN DO Apr 20, 2018 07:26
[2018-04-20] MEDS: hydrALAZINE (APRESOLINE) 25 MG TAB PO SCH ×3 (09:31→21:31)
[2018-04-20] MEDS: ASPIRIN E.C. 81 MG (ECOTRIN) TAB PO SCH (09:31)
[2018-04-20] MEDS: GABAPENTIN 300 MG (NEURONTIN) CAP PO SCH ×3 (09:31→21:31)
[2018-04-20] MEDS: cloNIDine 0.1 MG (CATAPRES) TAB PO SCH ×2 (09:31→21:32)
[2018-04-20] MEDS: CLOPIDOGREL 75 MG (PLAVIX) TABLET PO SCH (09:31)
[2018-04-20] MEDS: cefTRIAXone 1 GM/NS 50 ML IVPB IV SCH ×2 (12:12)
--- NOTE | 2018-04-20 16:10 | Progress Note (SOAP) ---
Subjective Subjective/Events-last exam Patient states that she is feeling better today. Currently on Bipap because she was taking a nap. + BM this AM. Tolerating PO diet Review of Systems Date Seen by Provider: Apr 20, 2018 Time Seen by Provider: 10:45 Pulmonary: Dyspnea, Cough Cardiovascular: Orthopnea; No: Chest Pain, Palpitations Gastrointestinal: No: Nausea, Vomiting, Abdominal Pain, Diarrhea, Constipation Neurological: Weakness Objective Exam Last Set of Vital Signs Vital Signs Date Time Temp Pulse Resp B/P (MAP) Pulse Ox O2 Delivery O2 Flow Rate FiO2 04/20/18 14:00 94 High Flow N/C 4.00 04/20/18 10:03 68 21 04/20/18 08:00 50 04/20/18 00:00 98.6 141/71 (94) Capillary Refill : Less Than 3 Seconds I&O Intake and Output 04/20/18 00:00 Intake Total 1240 ml Output Total 1375 ml Balance -135 ml Intake Oral 1240 ml Output Urine Total 1375 ml # Voids 2 # Bowel Movements 2 General: Alert, Oriented X3, Cooperative, No Acute Distress HEENT: Mucous Memb Moist/[place] Lungs: Other (diminished breath sounds, normal work of breathing but has conversational dyspnea) Heart: Regular Rate, No Murmurs Abdomen: Normal Bowel Sounds, Soft, No Tenderness, No Masses Extremities: Other (1+ pitting edema) Results/Procedures Lab Laboratory Tests 04/19/18 20:16: Glucometer 339H 04/20/18 05:30: Sodium Level 138, Potassium Level 3.9, Chloride Level 100, Carbon Dioxide Level 30, Anion Gap 8, Blood Urea Nitrogen 62H, Creatinine 1.87H, Estimat Glomerular Filtration Rate 27, BUN/Creatinine Ratio 33, Glucose Level 223H, Calcium Level 9.3, Phosphorus Level 3.6, Magnesium Level 2.0 04/20/18 05:45: Glucometer 270H 04/20/18 07:35: B-Type Natriuretic Peptide 489.9H 04/20/18 11:14: Glucometer 218H Microbiology 04/17/18 Blood Culture - Preliminary, Resulted No growth 04/17/18 MRSA Screen - Final, Complete 04/17/18 Urine Culture - Final, Complete Escherichia coli Radiology Date of Exam: 04/18/18 CHEST 1 VIEW, AP/PA ONLY INDICATION: Anemia, congestive heart failure and UTI. Comparison made with prior examination 04/17/2018. FINDINGS: There is cardiomegaly. There is some venous congestion. There are bilateral perihilar infiltrates. There is no pleural effusion or pneumothorax. Mediastinum is unremarkable. IMPRESSION: Bilateral perihilar infiltrates. Cardiomegaly and mild central pulmonary venous congestion. Assessment/Plan Assessment/Plan (1) Acute and chronic respiratory failure with hypoxia Status: Acute Assessment & Plan: - Dr Fernandez consulted, patient transitioned to vapotherm while awake and bipap when sleeping, CXR with some mild pulmonary congestion, MAT protocol 04/19- improved today, will continue to titrate as tolerated 04/20- Titrate FiO2, Will restart loop diuretic today, CXR improving with aeration (2) Acute renal failure superimposed on stage 4 chronic kidney disease Status: Resolved Assessment & Plan: - Gentle hydration, patient is almost at her baseline 2-2.5 , adjust meds based on kidney function 04/19- at baseline Qualifiers: Qualified Codes: N17.9 - Acute kidney failure, unspecified; N18.4 - Chronic kidney disease, stage 4 (severe) (3) Cardiomegaly Status: Chronic Assessment & Plan: - Elevated BNP,monitoring fluid balance closely (4) UTI (urinary tract infection) Status: Acute Assessment & Plan: - Continue antibiotics, culture pending 04/19- Ecoli, continue rocephin Qualifiers: Qualified Codes: N30.01 - Acute cystitis with hematuria (5) HLD (hyperlipidemia) Status: Chronic Assessment & Plan: - Continue home statin Qualifiers: Qualified Codes: E78.2 - Mixed hyperlipidemia (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 Assessment & Plan: - Will adjust home insulin given low blood sugars on admission (7) Obesity hypoventilation syndrome Status: Chronic (8) Sleep apnea with use of nocturnal bilevel positive airway pressure (BPAP) Status: Chronic Assessment & Plan: - Continue home bipap settings (9) Iron deficiency anemia Status: Chronic Assessment & Plan: 04/20- Will replace with dose of Infed in AM (10) Coronary artery disease Status: Chronic Assessment & Plan: - Continue ASA, Plavix Qualifiers: Qualified Codes: I25.10 - Atherosclerotic heart disease of [place] coronary artery without angina pectoris (11) DVT prophylaxis Status: Acute Assessment & Plan: [facility] [place] Clinical Quality Measures DVT/VTE Risk/Contraindication: Risk Factor Score Per Nursin RFS Level Per Nursing on Admit: 4+=Very High JENN MCDONALD MD Apr 20, 2018 16:10
[2018-04-20] MEDS: FUROSEMIDE 20 MG (LASIX) TAB PO SCH (16:35)
[2018-04-20 17:55] VITALS: BP 137/80
[2018-04-20] MEDS: ROSUVASTATIN 20 MG (CRESTOR) TABLET PO SCH (21:31)
[2018-04-21] MEDS: RT-ALBUTEROL/IPRATROPIUM 3 ML (DUONEB) VIAL INH SCH ×6 (02:06→21:09)
[2018-04-21 04:00] VITALS: BP 139/64
[2018-04-21 05:29] LABS: CALCIUM 9.9 MG/DL (8.5-10.1); CREATININE SERUM 1.83 MG/DL (0.60-1.30); PHOSPHORUS 4.3 MG/DL (2.3-4.7); POTASSIUM 4.4 MMOL/L (3.6-5.0)
[2018-04-21] MEDS: CATHETER FLUSH 10 ML SYR IV SCH ×3 (06:29→21:59)
[2018-04-21] MEDS: inSUlin ASPART (NovoLOG) 1 UNIT/0.01 ML (CHARGE PER UNIT) SC SCH ×4 (06:29→21:58)
[2018-04-21] MEDS: FERROUS SULF 325 MG (IRON) TAB PO SCH ×2 (06:29→17:28)
[2018-04-21] MEDS: FUROSEMIDE 20 MG (LASIX) TAB PO SCH ×2 (06:29→17:28)
--- NOTE | 2018-04-21 07:00 | Pulmonary Progress Note ---
Subjective Time Seen by a Provider: 07:00 Subjective/Events-last exam PT appears to be doing better. Sepsis Event Evaluation Height, Weight, BMI Height: 5'5.00" Weight: 329lbs. 0.0oz. 149.351638lk; 52.1 BMI Method:Stated Exam Exam Vital Signs Date Time Temp Pulse Resp B/P (MAP) Pulse Ox O2 Delivery O2 Flow Rate FiO2 04/21/18 04:00 98.7 89 20 139/64 (89) 99 NIV Bilevel 04/21/18 02:07 81 26 97 50.00 04/20/18 21:28 85 23 98 50.00 04/20/18 20:00 NIV Bilevel 50 04/20/18 18:32 95 High Flow N/C 4.00 04/20/18 17:55 98.4 82 19 137/80 (99) 100 High Flow N/C 5.00 04/20/18 14:00 94 High Flow N/C 4.00 04/20/18 10:03 68 21 96 50.00 04/20/18 08:15 75 20 97 50.00 04/20/18 08:00 NIV Bilevel 50 I & O 04/21/18 07:00 Intake Total 2110 ml Balance 2110 ml Height & Weight Height: 5'5.00" Weight: 329lbs. 0.0oz. 149.316705bh; 52.1 BMI Method:Stated General Appearance: No Apparent Distress, WD/WN HEENT: PERRL/EOMI, TMs Normal, Normal ENT Inspection, Pharynx Normal Neck: Full Range of Motion, Normal Inspection, Non Tender, Supple Respiratory: Chest Non Tender, Lungs Clear, No Accessory Muscle Use Cardiovascular: Regular Rate, Rhythm, No Murmur Capillary Refill: Less Than 3 Seconds Gastrointestinal: non tender, soft Neurologic/Psychiatric: Normal Mood/Affect Skin: Warm/Dry Results Lab Laboratory Tests 04/20/18 05:30 04/21/18 04:55 Assessment/Plan Assessment/Plan Acute respiratory failure with hypoxia-- improving -BiPAP QHS and PRN -SVNS Obesity OHS/HERNAN Atelectasis -activity as tolerated -IS Anemia -Monitor Acute renal failure with dehydration - improving Elevated LFT's -Monitor BNP elevated -CORAZON Cabrales DO Apr 21, 2018 07:00
[2018-04-21 08:00] VITALS: BP 132/62
[2018-04-21] MEDS: cloNIDine 0.1 MG (CATAPRES) TAB PO SCH ×2 (08:44→21:18)
[2018-04-21] MEDS: hydrALAZINE (APRESOLINE) 25 MG TAB PO SCH ×3 (08:44→21:14)
[2018-04-21] MEDS: CLOPIDOGREL 75 MG (PLAVIX) TABLET PO SCH (08:44)
[2018-04-21] MEDS: ASPIRIN E.C. 81 MG (ECOTRIN) TAB PO SCH (08:44)
[2018-04-21] MEDS: GABAPENTIN 300 MG (NEURONTIN) CAP PO SCH ×3 (08:44→21:14)
[2018-04-21] MEDS ORDERED: IRON DEXTRAN 25 MG/NS 6.25 ML TOTAL VOLUME IV NR ×3 (10:15)
--- NOTE | 2018-04-21 10:26 | Progress Note (SOAP) ---
Subjective Subjective/Events-last exam Patient states that she is feeling better this AM. Tolerating PO diet. BM this AM. Review of Systems Date Seen by Provider: Apr 21, 2018 Time Seen by Provider: 09:00 Pulmonary: Dyspnea Cardiovascular: Orthopnea, Edema; No: Chest Pain, Palpitations Gastrointestinal: No: Nausea, Vomiting, Abdominal Pain, Diarrhea, Constipation Objective Exam Last Set of Vital Signs Vital Signs Date Time Temp Pulse Resp B/P (MAP) Pulse Ox O2 Delivery O2 Flow Rate FiO2 04/21/18 10:13 91 High Flow N/C 4.00 04/21/18 04:00 98.7 89 20 139/64 (89) 04/20/18 20:00 50 Capillary Refill : Less Than 3 Seconds I&O Intake and Output 04/21/18 00:00 Intake Total 2120 ml Balance 2120 ml Intake Oral 2120 ml # Voids 7 # Bowel Movements 4 General: Alert, Oriented X3, Cooperative, Other (Morbidly obese female) Lungs: Other (diminished breath sounds, patient able to take deep breaths) Heart: Regular Rate, No Murmurs Abdomen: Normal Bowel Sounds, Soft, No Tenderness Extremities: Other (2+ pitting edema bilaterally L>R) Skin: No Rashes, No Breakdown Results/Procedures Lab Laboratory Tests 04/20/18 11:14: Glucometer 218H 04/20/18 16:26: Glucometer 254H 04/20/18 21:14: Glucometer 269H 04/21/18 04:55: Sodium Level 140, Potassium Level 4.4, Chloride Level 101, Carbon Dioxide Level 28, Anion Gap 11, Blood Urea Nitrogen 60H, Creatinine 1.83H, Estimat Glomerular Filtration Rate 28, BUN/Creatinine Ratio 33, Glucose Level 246H, Calcium Level 9.9, Phosphorus Level 4.3, Magnesium Level 2.0 04/21/18 05:13: Glucometer 267H Microbiology 04/17/18 Blood Culture - Preliminary, Resulted No growth 04/17/18 MRSA Screen - Final, Complete 04/17/18 Urine Culture - Final, Complete Escherichia coli Radiology Date of Exam: 04/18/18 CHEST 1 VIEW, AP/PA ONLY INDICATION: Anemia, congestive heart failure and UTI. Comparison made with prior examination 04/17/2018. FINDINGS: There is cardiomegaly. There is some venous congestion. There are bilateral perihilar infiltrates. There is no pleural effusion or pneumothorax. Mediastinum is unremarkable. IMPRESSION: Bilateral perihilar infiltrates. Cardiomegaly and mild central pulmonary venous congestion. Assessment/Plan Assessment/Plan (1) Acute and chronic respiratory failure with hypoxia Status: Acute Assessment & Plan: - Dr Fernandez consulted, patient transitioned to vapotherm while awake and bipap when sleeping, CXR with some mild pulmonary congestion, MAT protocol 04/19- improved today, will continue to titrate as tolerated 04/20- Titrate FiO2, Will restart loop diuretic today, CXR improving with aeration 04/21- Patient near her home oxygen requirement (2) Acute renal failure superimposed on stage 4 chronic kidney disease Status: Resolved Assessment & Plan: - Gentle hydration, patient is almost at her baseline 2-2.5 , adjust meds based on kidney function 04/19- at baseline 04/21- @ baseline restarted on home diuretic Qualifiers: Qualified Codes: N17.9 - Acute kidney failure, unspecified; N18.4 - Chronic kidney disease, stage 4 (severe) (3) Cardiomegaly Status: Chronic Assessment & Plan: - Elevated BNP,monitoring fluid balance closely (4) UTI (urinary tract infection) Status: Acute Assessment & Plan: - Continue antibiotics, culture pending 04/19- Ecoli, continue rocephin 04/21- Rocephin to be completed tomorrow Qualifiers: Qualified Codes: N30.01 - Acute cystitis with hematuria (5) HLD (hyperlipidemia) Status: Chronic Assessment & Plan: - Continue home statin Qualifiers: Qualified Codes: E78.2 - Mixed hyperlipidemia (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 Assessment & Plan: - Will adjust home insulin given low blood sugars on admission (7) Obesity hypoventilation syndrome Status: Chronic (8) Sleep apnea with use of nocturnal bilevel positive airway pressure (BPAP) Status: Chronic Assessment & Plan: - Continue home bipap settings (9) Iron deficiency anemia Status: Chronic Assessment & Plan: 04/20- Will replace with dose of Infed in AM (10) Coronary artery disease Status: Chronic Assessment & Plan: - Continue ASA, Plavix Qualifiers: Qualified Codes: I25.10 - Atherosclerotic heart disease of [place] coronary artery without angina pectoris (11) DVT prophylaxis Status: Acute Assessment & Plan: lovenox Clinical Quality Measures DVT/VTE Risk/Contraindication: Risk Factor Score Per Nursin RFS Level Per Nursing on Admit: 4+=Very High JENN MCDONALD MD Apr 21, 2018 10:26
[2018-04-21] MEDS ORDERED: IRON DEXTRAN 1,000 MG/NS 250 ML IVPB IV ONE ×2 (10:30)
[2018-04-21] MEDS ORDERED: IRON DEXTRAN INJECTION 1,000 MG in NS (IVPB) 250 ML IV ONE (10:30)
[2018-04-21] MEDS ORDERED: ENOXAPARIN 40 MG/0.4 ML (LOVENOX) SYR SQ SCH (10:30)
[2018-04-21] MEDS: ENOXAPARIN 60 MG/0.6 ML (LOVENOX) SYR SC SCH ×2 (11:32→23:01)
[2018-04-21] MEDS: cefTRIAXone 1 GM/NS 50 ML IVPB IV SCH ×2 (11:38)
[2018-04-21 11:39] VITALS: BP 140/68
[2018-04-21 16:00] VITALS: BP 142/71
[2018-04-21] MEDS: ACETAMINOPHEN 325 MG TABLET PO PRN (18:49)
[2018-04-21 20:00] VITALS: BP 141/77
[2018-04-21] MEDS: ROSUVASTATIN 20 MG (CRESTOR) TABLET PO SCH (21:14)
[2018-04-22 00:25] VITALS: BP 125/60
[2018-04-22] MEDS: RT-ALBUTEROL/IPRATROPIUM 3 ML (DUONEB) VIAL INH SCH ×4 (01:21→14:07)
[2018-04-22 04:05] VITALS: BP 118/83
[2018-04-22] MEDS: ACETAMINOPHEN 325 MG TABLET PO PRN (04:19)
[2018-04-22 05:55] LABS: CALCIUM 9.7 MG/DL (8.5-10.1); CREATININE SERUM 1.76 MG/DL (0.60-1.30); POTASSIUM 4.7 MMOL/L (3.6-5.0)
--- NOTE | 2018-04-22 06:39 | Pulmonary Progress Note ---
Sepsis Event Evaluation Height, Weight, BMI Height: 5'5.00" Weight: 329lbs. 0.0oz. 149.104737qd; 52.1 BMI Method:Stated Exam Exam Vital Signs Date Time Temp Pulse Resp B/P (MAP) Pulse Ox O2 Delivery O2 Flow Rate FiO2 04/22/18 04:05 96.9 70 26 118/83 (95) 99 NIV Bilevel 04/22/18 03:20 71 20 98 50.00 04/22/18 01:21 75 22 97 50.00 04/22/18 00:25 98.0 74 22 125/60 (81) 98 NIV Bilevel 04/21/18 23:23 72 19 97 50.00 04/21/18 21:09 77 29 92 50.00 04/21/18 20:00 98.0 84 18 141/77 (98) 93 High Flow N/C 5.00 04/21/18 20:00 Nasal Cannula 4.00 04/21/18 18:35 91 High Flow N/C 4.00 04/21/18 16:00 98.8 83 20 142/71 (94) 95 High Flow N/C 5.00 04/21/18 13:58 92 High Flow N/C 4.00 04/21/18 11:39 98.9 88 20 140/68 (92) 97 High Flow N/C 5.00 04/21/18 10:13 91 High Flow N/C 4.00 04/21/18 08:00 Nasal Cannula 4.00 04/21/18 08:00 98.6 80 20 132/62 (85) 100 High Flow N/C 5.00 04/21/18 07:08 95 High Flow N/C 4.00 I & O 04/22/18 07:00 Intake Total 1876.25 ml Balance 1876.25 ml Height & Weight Height: 5'5.00" Weight: 329lbs. 0.0oz. 149.949188ot; 52.1 BMI Method:Stated General Appearance: No Apparent Distress, WD/WN HEENT: PERRL/EOMI, TMs Normal, Normal ENT Inspection, Pharynx Normal Neck: Full Range of Motion, Normal Inspection, Non Tender, Supple Respiratory: Chest Non Tender, Lungs Clear, No Accessory Muscle Use Cardiovascular: Regular Rate, Rhythm, No Murmur Capillary Refill: Less Than 3 Seconds Gastrointestinal: non tender, soft Neurologic/Psychiatric: Normal Mood/Affect Skin: Warm/Dry Results Lab Laboratory Tests 04/21/18 04:55 04/22/18 05:10 Assessment/Plan Assessment/Plan Acute respiratory failure with hypoxia-- improving -BiPAP QHS and PRN -SVNS Obesity OHS/HERNAN Atelectasis -activity as tolerated -IS Anemia -Monitor Acute renal failure with dehydration - improving Elevated LFT's -Monitor BNP elevated -CORAZON Cabrales DO Apr 22, 2018 06:39
[2018-04-22] MEDS: CATHETER FLUSH 10 ML SYR IV SCH ×2 (07:31→11:56)
[2018-04-22] MEDS: inSUlin ASPART (NovoLOG) 1 UNIT/0.01 ML (CHARGE PER UNIT) SC SCH ×3 (07:32→16:46)
[2018-04-22] MEDS: FUROSEMIDE 20 MG (LASIX) TAB PO SCH (07:32)
[2018-04-22] MEDS: hydrALAZINE (APRESOLINE) 25 MG TAB PO SCH ×2 (07:32→11:22)
[2018-04-22] MEDS: FERROUS SULF 325 MG (IRON) TAB PO SCH (07:32)
[2018-04-22] MEDS: CLOPIDOGREL 75 MG (PLAVIX) TABLET PO SCH (07:33)
[2018-04-22] MEDS: cloNIDine 0.1 MG (CATAPRES) TAB PO SCH (07:33)
[2018-04-22] MEDS: GABAPENTIN 300 MG (NEURONTIN) CAP PO SCH ×2 (07:33→11:22)
[2018-04-22] MEDS: ASPIRIN E.C. 81 MG (ECOTRIN) TAB PO SCH (07:33)
[2018-04-22] MEDS: ENOXAPARIN 60 MG/0.6 ML (LOVENOX) SYR SC SCH (11:21)
[2018-04-22] MEDS: cefTRIAXone 1 GM/NS 50 ML IVPB IV SCH ×2 (11:22)
--- NOTE | 2018-04-22 14:35 | Discharge Summary ---
Diagnosis/Chief Complaint Date of Admission Apr 17, 2018 at 12:56 Date of Discharge 04/22/18 Admission Diagnosis Admission Diagnosis Respiratory Failure UTI Acute on Chronic Renal Failure Discharge Diagnosis See Below Problems/Diagnosis: (1) Acute and chronic respiratory failure with hypoxia Assessment & Plan: - Dr Fernandez consulted, patient transitioned to vapotherm while awake and bipap when sleeping, CXR with some mild pulmonary congestion, MAT protocol 04/19- improved today, will continue to titrate as tolerated 04/20- Titrate FiO2, Will restart loop diuretic today, CXR improving with aeration 04/21- Patient near her home oxygen requirement Status: Resolved Resolution Date/Time: 04/22/18 @ 20:38 (2) Acute renal failure superimposed on stage 4 chronic kidney disease Assessment & Plan: - Gentle hydration, patient is almost at her baseline 2-2.5 , adjust meds based on kidney function 04/19- at baseline 04/21- @ baseline restarted on home diuretic Qualifiers: Qualified Codes: N17.9 - Acute kidney failure, unspecified; N18.4 - Chronic kidney disease, stage 4 (severe) Status: Resolved Resolution Date/Time: 04/20/18 @ 22:33 (3) Cardiomegaly Assessment & Plan: - Elevated BNP,monitoring fluid balance closely Status: Chronic (4) UTI (urinary tract infection) Assessment & Plan: - Continue antibiotics, culture pending 04/19- Ecoli, continue rocephin 04/21- Rocephin to be completed tomorrow Qualifiers: Qualified Codes: N30.01 - Acute cystitis with hematuria Status: Acute (5) HLD (hyperlipidemia) Assessment & Plan: - Continue home statin Qualifiers: Qualified Codes: E78.2 - Mixed hyperlipidemia Status: Chronic (6) 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 Assessment & Plan: - Will adjust home insulin given low blood sugars on admission Status: Chronic (7) Obesity hypoventilation syndrome Status: Chronic (8) Sleep apnea with use of nocturnal bilevel positive airway pressure (BPAP) Assessment & Plan: - Continue home bipap settings 04/22- Discussed the importance that anytime she is sleeping she needs to be wearing Bipap, that includes daytime naps, patient voiced understanding Status: Chronic (9) Iron deficiency anemia Assessment & Plan: 04/20- Will replace with dose of Infed in AM 04/22- Received 1G infed for iron deficiency Status: Chronic (10) Coronary artery disease Assessment & Plan: - Continue ASA, Plavix Qualifiers: Qualified Codes: I25.10 - Atherosclerotic heart disease of [place] coronary artery without angina pectoris Status: Chronic (11) DVT prophylaxis Assessment & Plan: lovenox Status: Acute Chief Complaint/HPI Chief Complaint/HPI 67 yo F that was sent from [place] due to hypoxia and worsening respiratory distress. Patient states that she had started to feel bad a couple days prior to presentation to ER. Denies any fevers but had some chills that she thought were due to the cold. Denies any increase in coughing or coughing up blood. She is bed bound and lavinia lift at the [place]. Denies any recent falls. No skin rashes or infections. Patient states that she has been watching what she eats and has been cutting down the carbs and has noticed that her blood sugars have been trending down and there has not been any recent changes to her insulin. Discharge Summary-Simple/Stand Consultations Dr Fernandez, Pulmonology, Critical Care Discharge Physical Examination Allergies: Coded Allergies: Bacitracin Zinc (Unverified Allergy, Unknown, 07/11/17) Penicillins (Unverified Allergy, Unknown, HAS RECEIVED ROCEPHIN DURING PREVIOUS ADMIT, 07/11/17) bacitracin (Unverified Allergy, Unknown, 07/11/17) colistimethate sodium (Unverified Allergy, Unknown, 07/11/17) gramicidin D (Unverified Allergy, Unknown, 07/11/17) neomycin sulfate (Unverified Allergy, Unknown, 07/11/17) polymyxin B (Unverified Allergy, Unknown, 07/11/17) polymyxin B sulfate (Unverified Allergy, Unknown, 07/11/17) pramoxine HCl (Unverified Allergy, Unknown, 07/11/17) Vitals & I&Os Vital Sign - Last 12Hours Date Time Temp Pulse Resp B/P (MAP) Pulse Ox O2 Delivery O2 Flow Rate FiO2 04/22/18 14:07 91 High Flow N/C 4.00 04/22/18 06:44 71 22 04/22/18 04:05 96.9 118/83 (95) 04/20/18 20:00 50 Intake and Output 04/22/18 00:00 Intake Total 1876.25 ml Balance 1876.25 ml General Appearance: Alert, Oriented X3, Other (Morbidly Obese, bedbound) HEENT: Mucous Memb Moist/[place] Respiratory: Clear to Auscultation, Other (moderate increased work of breathing with any activity) Cardiovascular: Regular Rate, No Murmurs Abdominal: Normal Bowel Sounds, Soft, No Tenderness, No Masses Extremities: No Tenderness/Swelling, Other (2+ pitting edema to mid calf, R>L) Skin: No Rashes, No Breakdown Neuro: Normal Speech, Sensation Intact, Cranial Nerves 3-12 NL Psych/Mental Status: Mental Status NL, Mood NL Hospital Course See final discharge diagnosis. Radiology Reviewed Date of Exam: 04/18/18 CHEST 1 VIEW, AP/PA ONLY INDICATION: Anemia, congestive heart failure and UTI. Comparison made with prior examination 04/17/2018. FINDINGS: There is cardiomegaly. There is some venous congestion. There are bilateral perihilar infiltrates. There is no pleural effusion or pneumothorax. Mediastinum is unremarkable. IMPRESSION: Bilateral perihilar infiltrates. Cardiomegaly and mild central pulmonary venous congestion. Discussion & Recommendations 67 yo F that presented to ER with Acute respiratory failure and acute kidney failure. Patient was placed on Bipap and antibiotics for UTI. She was gentle diuresed and her respiratory status improved slowly. Patient likely had some decompensation of [place] given the fact that she is not always wearing Bipap when she is sleeping. Prior to discharge patient Cr was better then her normal baseline and she was at 2.5 L NC. She will have close follow up in [place] on Monday Discharge Condition at discharge Poor Prognosis, stable at discharge Instructions to patient/family Please see electronic discharge instructions given to patient. Discharge Medications Reviewed and agree with Discharge Medication list on patient's Discharge Instruction sheet Clinical Quality Measures DVT/VTE Risk/Contraindication: Risk Factor Score Per Nursin RFS Level Per Nursing on Admit: 4+=Very High Copy Copies To 1: Shira LEAL APRN GAULT, HOLLY R MD Apr 22, 2018 14:35
--- NOTE | 2018-04-22 14:44 | Discharge Inst-Skilled Nursing ---
Discharge Inst-Skilled NF Patient Instructions Patient Problems: Acute on Chronic Respiratory failure with hypoxia UTI Acute on Chronic Renal Failure HERNAN on Bipap Morbid Obesity Bed Bound status Consult/Follow Up/Orders Follow up appt.: Shira will see you next week for your hospital followup [facility]illed [facility] Cert[facility] SNF I certify that SNF services are required to be given on an inpatient basis because of the above named patient's need for longterm care on a continuing basis for the conditions(s) for which he/she was receiving inpatient hospital services prior to his/her transfer to the SNF. Fpc Facility Order: Nursing Services, Hand Laster-Evaluate & Treat, Physical Therapy-Evaluate & Treat, Wound Care-Eval/Treat Discharge Diet: ADA Diet, Cardiac Diet Daily Activity as Tolerated: No (Bedbound) New & Resume Previous Orders New & Resume Previous Orders - Resume Previous Orders - Bipap needs to be used anytime when patient is sleeping, including during the day Discharge Medications Continued Medications: Acetaminophen (Tylenol) 325 Mg Tablet 325-650 MG PO Q6H PRN for PAIN-MILD, TAB Arginine HCl (l-Arginine) 1,000 Mg Tablet 2000 MG PO TID, TAB Aspirin (Aspir 81) 81 Mg Tablet.dr 81 MG PO DAILY, TAB Brinzolamide/Brimonidine Tart (Simbrinza 1%-0.2% Eye Drops) 8 Ml Drops.susp 1 DROP OU TID, DROPS Cholecalciferol (Vitamin D3) (Vitamin D3) 50,000 Unit Capsule 09772 UNIT PO WEEK, CAP Clonidine HCl (Clonidine HCl) 0.3 Mg Tablet 0.3 MG PO BID, TAB Clopidogrel Bisulfate (Clopidogrel) 75 Mg Tablet 75 MG PO DAILY, TAB Ferrous Sulfate (Ferrous Sulfate) 325 Mg Tablet 325 MG PO BID, TAB Gabapentin (Gabapentin) 100 Mg Capsule 300 MG PO TID, CAP TAKES 3 (100MG) CAPSULES Hydralazine HCl (Hydralazine HCl) 25 Mg Tablet 25 MG PO TID, TAB Insulin Aspart (Novolog Flexpen) 300 Units/3 Ml Solution 20 UNITS SC AC, EA Insulin Detemir (Levemir Flextouch) 100 Unit/1 Ml Insuln.pen 35 UNIT SQ BID, EA Lactulose (Lactulose) 10 Gm/15 Ml Solution 15 ML PO BID, EA Loratadine (Alavert) 10 Mg Tab.rapdis 10 MG PO DAILY PRN for ALLERGIES, TAB Magnesium Hydroxide (Milk of Magnesia) 400 Mg/5 Ml Oral.susp 30 ML PO DAILY PRN for CONSTIPATION-7TH LINE, ML Magnesium Oxide (Magnesium) 250 Mg Tablet 250 MG PO DAILY, TAB Multivitamin (Multi-Vitamin Daily) 1 Each Tablet 1 TAB PO DAILY, TAB Nystatin (Nystatin) 1 Each Powder.ea. TOP BID, UNIT [place]-3/Dha/Epa/Fish Oil (Fish Oil 1,000 mg Softgel) 1 Each Capsule 1000 MG PO TID, CAP Phenazopyridine HCl (Pyridium) 200 Mg Tablet 200 MG PO Q8H PRN for BLADDER SPASMS, TAB Rosuvastatin Calcium (Rosuvastatin Calcium) 20 Mg Tablet 20 MG PO HS, TAB Torsemide (Torsemide) 20 Mg Tablet 20 MG PO BID, TAB Turmeric/Turmeric Root Extract (Turmeric 500 mg Capsule) 1 Each Capsule 500 MG PO BID, CAP Discontinued Medications: Acetaminophen (Acetaminophen Extra Strength) 500 Mg Tablet 1000 MG PO Q6H PRN for PAIN-MILD, TAB Jenn Byrd Apr 22, 2018 14:38 JENN BYRD MD Apr 22, 2018 14:44
== END 2018-04-22 16:53 | DRG 189 ==
LOC: EDUNIT# 11:05 → ER 11:06 → ICU 12:56 → 4TH 04-19 14:15
PROVIDERS: ADMIT Family Medicine; ATTEND Family Medicine
DX: J96.21 Acute and chronic respiratory failure with hypoxia (principal); J98.11 Atelectasis; N17.9 Acute kidney failure, unspecified; N39.0 Urinary tract infection, site not specified; G93.41 Metabolic encephalopathy; I13.0 Hypertensive heart and chronic kidney disease with heart failure and stage 1 through stage 4 chronic kidney disease, or unspecified chronic kidney disease; N18.4 Chronic kidney disease, stage 4 (severe); I50.9 Heart failure, unspecified; E66.2 Morbid (severe) obesity with alveolar hypoventilation; Z68.43 Body mass index [BMI] 50.0-59.9, adult; E86.0 Dehydration; D50.9 Iron deficiency anemia, unspecified; E11.649 Type 2 diabetes mellitus with hypoglycemia without coma; E11.42 Type 2 diabetes mellitus with diabetic polyneuropathy; E11.319 Type 2 diabetes mellitus with unspecified 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 edema; J44.9 Chronic obstructive pulmonary disease, unspecified; I25.10 Atherosclerotic heart disease of native coronary artery without angina pectoris; E78.2 Mixed hyperlipidemia; E83.52 Hypercalcemia; N25.0 Renal osteodystrophy; B96.20 Unspecified Escherichia coli [E. coli] as the cause of diseases classified elsewhere; Z95.5 Presence of coronary angioplasty implant and graft; Z99.81 Dependence on supplemental oxygen; Z86.718 Personal history of other venous thrombosis and embolism; Z95.828 Presence of other vascular implants and grafts; Z86.73 Personal history of transient ischemic attack (TIA), and cerebral infarction without residual deficits; Z79.4 Long term (current) use of insulin; Z74.01 Bed confinement status
CPT/HCPCS: 36415; 36600; 51702; 71045; 80048; 80053; 81000; 82728; 82805; 82962; 83540; 83605; 83735; 83880; 84100; 85025; 86850; 86900; 86901; 87040; 87077; 87081; 87088; 87186; 93005; 93041; 94640; 94660; 94760; 96374; 96375; 99291

== ENCOUNTER 2018-04-22 22:42 | Inpatient (IN) | payer MEDICARE, MEDICAID ==
[~2018-04-22] VITALS: Ht 165.1 cm; Wt 157.2 kg
[~2018-04-22 22:42] MED LIST changes: +ACET-168 PO; +ACET325T38 PO; +CHOL500049 PO; +FERR325T18 PO; +INSU100I29 SQ; +LACT10SO PO; +MAGN400O7 PO; +NYST1POW22 TOP; +PHEN-640 PO; +TRIA1CAP4 PO; +TURM500C4 PO
--- OUTSIDE RECORDS SUMMARY | 2018-04-22 22:48 | XMS REPORT | Clinical Summary ---
Author Author [facility] Organization [facility] Address Unknown Phone Unavailable Care Team Providers Care Boy'S Adviser Name Role Phone Tobi Benson MD PCP Source Comments Some departments are not documenting in the electronic medical record. If you do not see the information that you expected, contact Release of Information in the Health Information Management department at [phone] for further assistance in locating additional records.[facility] Allergies Not on File Medications Not on file Active Problems Not on file Social History Date Tobacco Use Types Packs/Day Years Used Never Assessed Sex Assigned at Date Recorded Not on file Industry Job Start Date Occupation Not on file Not on file Not on file Travel End Travel History Travel Start No recent travel history available. Last Filed Vital Signs Not on file Plan of Treatment Health Maintenance Due Date Last Done Comments HEPATITIS C SCREENING 1952 PHYSICAL (COMPREHENSIVE) 1959 EXAM HIV SCREENING 1967 DTAP/TDAP VACCINES (1 - 1970 Tdap) BREAST CANCER SCREENING 1992 COLORECTAL CANCER 2002 SCREENING SHINGLES RECOMBINANT 2002 VACCINE (1 of 2) OSTEOPOROSIS 2017 SCREENING/MONITORING PNEUMONIA (PCV13/PPSV23) 2017 VACCINES (1 of 2 - PCV13) INFLUENZA VACCINE 12/06/2017 Results Not on filefrom Last 3 Months
--- OUTSIDE RECORDS SUMMARY | 2018-04-22 22:49 | XMS REPORT ---
Author Author CARLOS LARA [facility] Address [address] [place] [address] Care Team Providers Care Founding Partner Name Role Phone CARLOS LARA Unavailable PROBLEMS Type Condition ICD9-CM Code GWG81-XY Code Onset Dates Condition Status SNOMED Code Problem Renal osteodystrophy N25.0 Active 16558311 Problem Iron deficiency anemia, unspecified iron deficiency anemia type D50.9 Active 29911239 Problem Coronary artery disease involving [place] coronary artery of [place] heart, angina presence unspecified I25.10 Active 7006341107929 Problem Stenosis of carotid artery, unspecified laterality I65.29 Active 20322595 Problem Generalized osteoarthritis M15.9 Active 361266738 Problem Aortic valve sclerosis I35.8 Active 01774169 Problem Essential hypertension I10 Active 36684867 Problem Mixed hyperlipidemia E78.2 Active 447486372 Problem 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 Active 3196627 Problem Chronic kidney disease, unspecified CKD stage N18.9 Active 642649546 Problem Type 2 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 Active 39239263 Problem Type 2 diabetes mellitus with unspecified complications E11.8 Active 52387638 Problem Type 2 diabetes mellitus with hyperglycemia E11.65 Active 67980526 Problem alf 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.4 Active 010052113 Problem Bladder spasms N32.89 Active 172455806 Problem Pain R52 Active 82127317 Problem Lumbago with sciatica, right side M54.41 Active 067261690 Problem Acute anxiety F41.9 Active 77615639 Problem Anemia in other chronic diseases classified elsewhere D63.8 Active 076117340 Problem Type 2 diabetes mellitus with diabetic polyneuropathy E11.42 Active 170121346 Problem Type 2 diabetes mellitus with foot ulcer E11.621 Active 331709034 Problem Other chronic pain G89.29 Active 78957889 Problem Slow transit constipation K59.01 Active 92759728 Problem Inability to bear weight R26.89 Active 553044633 Problem Chronic kidney disease (CKD), stage 4 (severe) N18.4 Active 510733098 Problem Severe sleep apnea G47.30 Active 80204863 Problem Trochanteric bursitis of left hip M70.62 Active 577920922104998 Problem Decreased diffusion capacity R94.2 Active 16968290 Problem Hypoxemia R09.02 Active 994063701 Problem Chronic kidney disease, stage 3 (moderate) N18.3 Active 252994035 Problem Diarrhea, unspecified type R19.7 Active 19984595 Problem Transient cerebral ischemia, unspecified type G45.9 Active 316110331 Problem Anxiety about health F41.8 Active 994581385 Problem BMI 50.0-59.9, adult Z68.43 Active 564639044 Problem Port catheter in place Z95.828 Active 130232688 ALLERGIES No Information ENCOUNTERS Encounter Location Date Diagnosis [place] [address] [address]- 1749 Apr, [place] [address] 71431- 4358 Apr, Urinary tract infection without hematuria, site unspecified N39.[address] 77272- 7672 Feb, Type 2 diabetes mellitus with hyperglycemia E11.[address] 73751- 7487 Feb, [employer] [address] [place] [id number] Feb, Lumbago with sciatica, right side M54.41 ; Other chronic pain G89.29 and Trochanteric bursitis, right hip M70.61 [place] [address] 20781- 2531 Feb, [place] [address] 39539- 3579 Feb, Type 2 diabetes mellitus with diabetic polyneuropathy E11.42 and Chronic kidney disease (CKD), stage 4 (severe) N18.4 [place] [address] [place] [id number] [place] [address] 92565- 8471 17 Jan, 2018 [place] [address] 29262- 5772 14 Jan, 2018 Acute anxiety F41.9 [place] [address] 96863- 7200 04 Jan, 2018 Inability to bear weight R26.89 [facility] [facility] [address] [place] [id number] Dec, Low back pain M54.5 ; Other chronic pain G89.29 and Chronic kidney disease (CKD), stage 4 (severe) N18.[address] 04183- 0600 Dec, Type 2 diabetes mellitus with hyperglycemia E11.65 [place] [address] 92329- 7506 Dec, [employer] [address] [place] [address] Dec, Type 2 diabetes mellitus with hyperglycemia E11.65 ; Essential hypertension I10 ; Generalized osteoarthritis M15.9 ; Mixed hyperlipidemia E78.2 ; Hypoxia R09.02 ; Port catheter in place Z95.828 ; Anemia due to acute blood loss D62 ; Chronic kidney disease, unspecified CKD stage N18.9 and Severe sleep apnea G47.30 [place] [address] [place] [id number] [place] [address] 26158- 0317 Dec, Type 2 diabetes mellitus with hyperglycemia E11.65 [place] [address] [place] [id number] [place] [address] 71968- 2238 Dec, [place] [address] 79361- 0731 Dec, Type 2 diabetes mellitus with hyperglycemia E11.65 [place] [address] [place] [id number] [place] [address] 41310- 5908 Dec, Left leg pain M79.605 [place] [address] 67742- 8045 Nov, Slow transit constipation K59.01 [facility] [address] [address] Nov, [employer] [address] [place] [id number] Nov, Anemia due to acute blood loss D62 [facility] [address] [place] [address] 72198- 1396 Nov, [facility] [address] [place] [id number] [place] [address] 52609- 4516 Nov, Bladder spasms N32.89 [facility] [address] [place] [id number] [place] [address] 445269- 8700 Nov, Pain R52 [facility] [address] [place] [id number] Nov, Anemia due to acute blood loss D62 [facility] [address] [place] [address] 58102- 6116 Nov, Pain in right hip M25.551 and Pain in left hip M25.552 [facility] [address] [place] [address] 70471- 8684 Nov, [facility] [address] [place] [address] [id number]- 6514 Nov, [facility] [address] [address] 0186 Nov, [facility] [address] [address] 6853 Nov, [facility] [address] [place] [address] 99081- 3550 Oct, [facility] [address] [place] [address] 775380- 3012 Oct, [employer] [address] [place] [id number] Oct, Encounter for examination for admission to assisted Z02.2 ; Chronic kidney disease, unspecified CKD stage N18.9 ; Type 2 diabetes mellitus with unspecified complications E11.8 ; 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 ; Essential hypertension I10 ; Hypoxia R09.02 ; Severe sleep apnea G47.30 ; Stenosis of carotid artery, unspecified laterality I65.29 ; Generalized osteoarthritis M15.9 ; Coronary artery disease involving [place] coronary artery of [place] heart, angina presence unspecified I25.10 ; Port catheter in place Z95.828 and Hemorrhoids, unspecified hemorrhoid type K64.9 [facility] [address] 50405- 4262 Oct, [place] [address] 61079- 0985 Oct, [place] [address] 87429- 2745 Oct, [place] [address] 64431- 5044 Oct, [facility] [address] [place] [id number] [place] [address] 63574 -4648 September, BMI 50.0-59.9, adult Z68.43 [place] [address] 54877- 7645 September, [facility] [address] [place] [id number] [place] [address] 54990- 6527 September, [place] [address] [place] [id number] [place] [address] 22656- 0626 Aug, Type 2 diabetes mellitus with foot ulcer E11.621 ; Transient cerebral ischemia, unspecified type G45.9 ; Essential hypertension I10 ; Mixed hyperlipidemia E78.2 and BMI 50.0-59.9, adult Z68.43 [facility] [address] [place] [id number] [place] [address] 45521- 4146 Aug, [facility] [address] [place] [id number] [place] [address] 61498- 4964 14 Mar, 2018 Anxiety about health F41.8 and Mixed hyperlipidemia E78.2 [place] [address] [place] [id number] [place] [address] 32451- 3923 Jul, [place] [address] [place] [id number] [place] [address] 86603- 9108 Jun, [place] [address] [place] [id number] [place] [address] 72592- 9283 Jun, Type 2 diabetes mellitus with hyperglycemia E11.65 ; Type 2 diabetes mellitus with foot ulcer E11.621 ; Port catheter in place Z95.828 ; 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 ; Contact with and (suspected) exposure to potentially hazardous body fluids Z77.21 and BMI 50.0-59.9, adult Z68.43 [place] [address] [place] [id number] [place] [address] 04948- 4304 May, [place] [address] 39549- 7699 May, Open wound of right great toe, subsequent encounter S91.101D [place] [address] [place] [id number] [place] [address] 06609- 9693 May, [place] [address] [place] [id number] [place] [address] 22198- 0453 Apr, [place] [address] [place] [id number] [place] [address] 68042- 6809 15 Apr, 2017 [place] [address] [place] [id number] [place] [address] 96094- 1468 14 Apr, 2017 [place] [address] [place] [id number] [place] [address] 22869- 9362 14 Apr, 2017 Type 2 diabetes mellitus with diabetic polyneuropathy E11.42 [place] [address] [place] [id number] [place] [address] 61712- 2718 13 Apr, 2017 Open wound of right great toe, subsequent encounter S91.101D [place] [address] [place] [id number] [place] [address] 79410- 7863 Apr, Open wound of right great toe, subsequent encounter S91.101D ; Breast pain, left N64.4 ; Breast cancer screening Z12.31 ; Type 2 diabetes mellitus with foot ulcer E11.621 ; Essential hypertension I10 and BMI 50.0-59.9, adult Z68.43 [place] [address] 21165- 8717 Mar, Encounter for immunization Z23 [place] [address] 05783- 7576 Mar, [address] 69049- 2692 Mar, [place] [address] 96947- 3055 Mar, Type 2 diabetes mellitus with diabetic polyneuropathy E11.42 ; Type 2 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 ; Type 2 diabetes mellitus with foot ulcer E11.621 ; Essential hypertension I10 ; Hypoxemia R09.02 and Generalized osteoarthritis M15.9 [place] [id number] [place] [address] 96306- 5330 Mar, Chronic kidney disease, stage 3 (moderate) N18.3 ; Acute cystitis without hematuria N30.00 ; Essential hypertension I10 ; Muscle spasms of neck M62.838 ; Type 2 diabetes mellitus with diabetic polyneuropathy E11.42 and BMI 50.0-59.9, adult Z68.43 [place] [address] [place] [id number] [place] [address] 52316- 0531 Feb, [facility] [address] 80451 -8880 Feb, [place] [address] 91103- 7866 Feb, [place] [address] [place] [id number] [place] [address] 46452- 6645 Feb, [place] [address] [address]- 9448 Feb, [facility] [address] [place] [id number] [place] [address] 45238- 3244 Feb, [facility] [address] [place] [id number] [place] [address] 80588- 3730 Feb, Mixed hyperlipidemia E78.2 [facility] [address] [place] [id number] [place] [address] 83305- 2597 Feb, [facility] [address] [place] [id number] [place] [address] 41678- 3714 Jan, [facility] [address] [place] [id number] [place] [address] 08190- 1086 Jan, Generalized osteoarthritis M15.9 [facility] [address] [place] [id number] [place] [address] 45247- 3891 Oct, [facility] [address] [place] [id number] [place] [address] 95319- 9522 Jul, [facility] [address] [place] [id number] [place] [address] 95927- 3673 Jul, [facility] [address] [place] [id number] [place] [address] 00280- 7148 Jul, Type 2 diabetes mellitus with hyperglycemia E11.65 ; Chronic kidney disease, stage 3 (moderate) N18.3 ; Type 2 diabetes mellitus with foot ulcer E11.621 ; Type 2 diabetes mellitus with diabetic polyneuropathy E11.42 ; Generalized osteoarthritis M15.9 ; Trochanteric bursitis of left hip M70.62 and Tinea pedis of both feet B35.3 [facility] [address] [place] [id number] [place] [address] 88117- 5516 Jun, [facility] [address] [place] [address] 51746- 6261 Apr, [facility] [address] [place] [id number] [place] [address] 664766- 3856 Apr, [facility] [address] [place] [id number] [place] [address] 65850- 9665 Mar, [place] [address] [place] [id number] [place] [address] 99161- 0573 Feb, Encounter for immunization Z23 [place] [address] 04596- 1049 18 Feb, 2016 [place] [address] 65681- 3022 14 Feb, 2016 Type 2 diabetes mellitus with hyperglycemia E11.65 ; Encounter for immunization Z23 ; Diarrhea, unspecified type R19.7 ; Essential hypertension I10 ; Mixed hyperlipidemia E78.2 ; Hypoxia R09.02 ; 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 and Type 2 diabetes mellitus with foot ulcer E11.[address] 69766- 9862 Jan, [place] [address] 44391- 6396 Jan, Type 2 diabetes mellitus with hyperglycemia E11.65 and Pneumonia due to infectious organism, unspecified laterality, unspecified part of lung J18.9 [place] [address] [place] [id number] [place] [address] 11147- 6919 Jan, [place] [address] [place] [id number] [place] [address] 15015- 4938 Jan, [place] [address] 62594- 4258 Oct, Type 2 diabetes mellitus with hyperglycemia E11.65 ; Generalized osteoarthritis M15.9 and Chronic prescription opiate use Z79.891 [place] [address] 25472- 8604 September, [place] [address] [place] [id number] [place] [address] 59372- 8479 Aug, [place] [address] [place] [address]- 3536 Aug, [facility] [address] [place] [id number] [place] [address] 87820- 8629 Aug, [facility] [address] [place] [id number] [place] [address] 50407- 5801 Aug, [facility] [address] [place] [id number] [place] [address] 41154- 1475 Jun, [facility] [address] 48915- 8836 Jun, Type 2 diabetes mellitus with hyperglycemia E11.65 ; Mixed hyperlipidemia E78.2 ; Vaginal itching L29.8 ; Neck muscle spasm M62.838 and Skin abrasion T14.8 [place] [address] 13229- 7214 Apr, [place] [address] 95358- 9778 Apr, [facility] [address] [place] [id number] [place] [address] 02678- 0823 Mar, [place] [address] 16597- 1050 Feb, [place] [address] [place] [id number] [place] [address] 63248- 6481 Feb, Type 2 diabetes mellitus with hyperglycemia E11.65 ; Type 2 diabetes mellitus with foot ulcer E11.621 ; Type 2 diabetes mellitus with diabetic polyneuropathy E11.42 and Encounter for immunization Z23 [facility] [address] [place] [id number] [place] [address] 06911- 0951 Jan, Hypertension 401.9 ; Uncontrolled type 2 diabetes mellitus 250.02 ; Right shoulder pain 719.41 and Ulcer of heel and midfoot 707.14 [place] [address] [place] [id number] [place] [address] 53835- 2641 Dec, Diabetes with other specified manifestations, type II or unspecified type, not stated as uncontrolled 250.80 ; Ulcer of heel and midfoot 707.14 ; Hypertension 401.9 ; Hip pain, left 719.45 and Acute anxiety 300.00 [facility] [address] [address]- 4948 14 Nov, 2014 [facility] [address] [address]- 2619 Nov, [facility] [address] [place] [id number] [place] [address] 83407- 3438 September, Anxiety attack 300.01 and Cellulitis 682.9 [facility] [address] [place] [id number] [place] [address] 977618- 6490 September, [facility] [address] [place] [address] [address]- 1500 September, [facility] [address] [place] [id number] [place] [address] 91120- 6398 September, [facility] [address] [address]- 0909 Aug, [facility] [address] [place] [address] [address]- 6028 Aug, [facility] [address] [address]- 8396 Jul, [facility] [address] [address]- 1512 Jul, [facility] [address], [place] [address]- 5697 Jul, [facility] [address] [address]- 4559 May, [facility] [address], [place] [address]- 6326 May, [facility] [address] [address]- 3622 Mar, [facility] [place] [facility] [address] [id number] [place] [address]- 6000 Mar, [facility] [place] [facility] [address] [id number] [place] [address]- 1354 Mar, [facility] [place] [facility] [address] [id number] [place] [address]- 1160 Mar, [facility] [place] [facility] [address] [id number] [place] [address]- 8963 Mar, [facility] [place] [facility] [address] [id number] [place] [address]- 9873 Mar, [facility] [place] [facility] [address] [id number] [place] [address]- 5417 Mar, [facility] [place] [facility] [address] [id number] [place] [address]- 6128 14 Feb, 2014 [facility] [place] [facility] [address] [id number] [place] [address]- 0300 14 Feb, 2014 [facility] [place] [facility] [address] [id number] [place] [address]- 9089 30 Jan, 2014 [facility] [place] [facility] [address] [id number] [place] [address]- 2545 30 Jan, 2014 [facility] [place] [facility] [address] [id number] [place] [address]- 2545 26 Jan, 2014 [facility] [place] [facility] [address] [id number] [place] [address]- 2544 26 Jan, 2013 [facility] [place] [facility] [address] [id number] [place] [address] 2543 25 Jan, 2014 [facility] [place] [facility] [address] [id number] [place] [address] 2546 25 Jan, 2014 [facility] [place] [facility] [address] [id number] [place] [address] 2546 25 Jan, 2014 [facility] [place] [facility] [address] [id number] [place] [address]- 7791 25 Jan, 2013 [facility] [place] [facility] [address] [id number] [place] [address]- 0807 18 Sep, 2013 [facility] [place] [facility] [address] [id number] [place] [address]- 1544 18 Jan, 2013 [facility] [place] [facility] [address] [id number] [place] [address]- 9073 06 Sep, 2013 [facility] [place] [facility] [address] [id number] [place] [address]- 5664 06 Sep, 2013 [facility] [place] [facility] [address] [id number] [place] [address]- 5960 05 Sep, 2013 [facility] [place] [facility] [address] [id number] [place] [address]- 2902 05 Sep, 2013 [facility] [place] [facility] [address] [id number] [place] [address]- 2768 Sep, 2013 [facility] [place] [facility] [address] [id number] [place] [address]- 4129 05 Sep, 2013 [facility] [place] [facility] [address] [id number] [place] [address]- 4382 05 Sep, 2013 [facility] [place] [facility] [address] [id number] [place] [address]- 7033 05 Jan, 2013 [facility] [place] [facility] [address] [id number] [address]- 4965 Dec, 2013 [facility] [place] [facility] [address] [id number] [address]- 9971 Dec, [facility] [place] [facility] [address] [id number] [place] [address]- 8368 Dec, [facility] [place] [facility] [address] [id number] [place] [address]- 7139 Dec, [facility] [place] [facility] [address] [id number] [place] [address]- 6626 Dec, 2013 [facility] [place] [facility] [address] [id number] [place] [address]- 6742 Dec, [facility] [place] [facility] [address] [id number] [place] [address]- 6771 Dec, [facility] [place] [facility] [address] [id number] [place] [address]- 0561 Dec, [facility] [place] [facility] [address] [id number] [place] [address]- 0781 Dec, [facility] [place] [facility] [address] [id number] [place] [address]- 4804 Dec, [facility] [place] [facility] [address] [id number] [place] [address]- 4966 Nov, [facility] [place] [facility] [address] [id number] [place] [address]- 1917 Nov, [facility] [place] [facility] [address] [id number] [place] [address]- 4942 Nov, [facility] [place] [facility] [address] [id number] [place] [address]- 6390 Nov, [facility] [place] [facility] [address] [id number] [place] [address]- 4186 Nov, [facility] [place] [facility] [address] [id number] [place] [address]- 9851 Nov, [facility] [place] [facility] [address] [id number] [place] [address]- 7009 Oct, [facility] [place] [facility] [address] [id number] [place] [address]- 7985 Oct, [facility] [place] [facility] [address] [id number] [place] [address]- 2045 Oct, [facility] [place] [facility] [address] [id number] [place] [address]- 3156 Oct, [facility] [place] [facility] [address] [id number] [place] [address]- 1000 Oct, [facility] [place] [facility] [address] [id number] [place] [address]- 1534 Oct, [facility] [place] [facility] [address] [id number] [place] [address]- 0220 Oct, [facility] [place] [facility] [address] [id number] [place] [address]- 2884 Oct, [facility] [place] [facility] [address] [id number] [place] [address]- 9327 Oct, [facility] [place] [facility] [address] [id number] [place] [address]- 8010 Oct, [facility] [place] [facility] [address] [id number] [place] [address]- 1014 Oct, [facility] [place] [facility] [address] [id number] [place] [address]- 5591 Oct, [facility] [place] [facility] [address] [id number] [place] [address] September, [facility] [place] [facility] [address] [id number] [place] [address] September, [facility] [place] [facility] [address] [id number] [place] [address] September, [facility] [place] [facility] [address] [id number] [place] [address] Aug, [facility] [place] [facility] [address] [id number] [place] [address] Aug, [facility] [place] [facility] [address] [id number] [place] [address] Jul, [facility] [place] [facility] [address] [id number] [place] [address] Jul, [facility] [place] [facility] [address] [id number] [place] [address] 10 Jul, 2013 [facility] [place] [facility] [address] [id number] [place] [address] Jul, [facility] [place] [facility] [address] [id number] [place] [address] Jul, [facility] [place] [facility] [address] [id number] [place] [address] Jul, [facility] [place] [facility] [address] [facility] [id number] [place] [address] Jul, [facility] [place] [facility] [address] [id number] [place] [address] Jul, [facility] [place] [facility] [address] [id number] [place] [address] Jul, [facility] [place] [facility] [address] [id number] [place] [address] Jul, [facility] [place] [facility] [address] [facility] [id number] [place] [address] Jun, [facility] [place] [facility] [address] [id number] [place] [address] Jun, [facility] [place] [facility] [address] [facility] [id number] [place] [address] Jun, [facility] [place] [facility] [address] [facility] [id number] [place] [address] Jun, [facility] [place] [facility] [address] [facility] [id number] [place] [address] May, [facility] [place] [facility] [address] [facility] [id number] [place] [address] May, [facility] [place] [facility] [address] [id number] [place] [address] Apr, [facility] [place] [facility] [address] [id number] [place] [address] 2020 Apr, [facility] [place] [facility] [address] [facility] [id number] [place] [address] 36[address] Apr, [facility] [place] [facility] [address] [id number] [place] [address] 6[address] Apr, [facility] [place] [facility] [address] [id number] [place] [address] 1633 Apr, [facility] [place] [facility] [address] [id number] [place] [address] 5870 Apr, [facility] [place] [facility] [address] [id number] [place] [address] 1212 Apr, [facility] [place] [facility] [address] [id number] [place] [address] 9960 Apr, [facility] [place] [facility] [address] [id number] [place] [address] 1297 Mar, [facility] [place] [facility] [address] [id number] [place] [address] Mar, [facility] [place] [facility] [address] [id number] [place] [address] 1875 Mar, [facility] [place] [facility] [address] [id number] [place] [address] 2884 Mar, [facility] [place] [facility] [address] [id number] [place] [address] 1117 Mar, [facility] [place] [facility] [address] [id number] [place] [address] Mar, [facility] [place] [facility] [address] [id number] [place] [address] 3937 30 Feb, 2013 [facility] [place] [facility] [address] [id number] [place] [address]- 2837 30 Feb, 2013 [facility] [place] [facility] [address] [id number] [place] [address]- 4165 18 Feb, 2013 [facility] [place] [facility] [address] [id number] [place] [address] 6655 18 Feb, 2013 [facility] [place] [facility] [address] [id number] [place] [address]- 0629 14 Feb, 2013 [facility] [place] [facility] [address] [id number] [place] [address]- 6120 14 Feb, 2013 [facility] [place] [facility] [address] [id number] [place] [address] 8778 04 Feb, 2013 [facility] [place] [facility] [address] [id number] [place] [address]- 9652 27 Jan, 2013 [facility] [place] [facility] [address] [id number] [place] [address]- 9408 26 Jan, 2013 [facility] [place] [facility] [address] [id number] [place] [address] 1832 Jan, [facility] [place] [facility] [address] [id number] [place] [address]- 7388 05 Jan, 2013 [facility] [place] [facility] [address] [id number] [place] [address] 2297 Dec, [facility] [place] [facility] [address] [id number] [place] [address] 3011 Dec, [facility] [place] [facility] [address] [id number] [place] [address] 2627 Dec, [facility] [place] [facility] [address] [id number] [place] [address] 8048 Nov, [facility] [place] [facility] [address] [id number] [address] Nov, [facility] [place] [facility] [address] [id number][place] [address] Nov, [facility] [place] [facility] [address] [id number] [place] [address] 1323 Nov, [facility] [place] [facility] [address] [id number] [address] 38[address] Nov, [facility] [place] [facility] [address] [id number] [place] [address]- 5833 Nov, [facility] [place] [facility] [address] [id number] [place] [address]- 8346 28 Oct, 2012 [facility] [address] [id number] [place] [address] 4789 Oct, [facility] [place] [facility] [address] [id number] [place] [address] 9861 Oct, [facility] [address] [id number] [place] [address]- 8097 Oct, [facility] [place] [facility] [address] [id number] [place] [address]- 8250 Oct, [facility] [address] [id number] [place] [address]- 3657 Oct, [facility] [address] [id number] [place] [address]- 0131 September, [facility] [address] [id number] [place] [address]- 6752 September, [facility] [address] [id number] [place] [address]- 5580 September, [facility] [address] [id number] [place] [address]- 5644 September, [facility] [address] [id number] [place] [address]- 3911 Aug, [facility] [place] [facility] [address] [id number] [place] [address]- 8862 Aug, [facility] [place] [facility] [address] [id number] [place] [address]- 0298 28 Jul, 2012 [facility] [place] [facility] [address] [id number] [place] [address]- 8749 Jul, [facility] [place] [facility] [address] [id number] [place] [address]- 1614 18 Jul, 2012 [facility] [place] [facility] [address] [id number] [place] [address] 15 Jul, 2012 [facility] [place] [facility] [address] [id number] [place] [address]- 4923 13 Jul, 2012 [facility] [address] [id number] [place] [address]- 6009 08 Jul, 2012 [facility] [address] [id number] [place] [address]- 4476 20 Jun, 2012 [facility] [address] [id number] [place] [address]- 5056 13 Jun, 2012 [facility] [address] [id number] [place] [address]- 1093 17 May, 2012 [facility] [address] [id number] [place] [address] 1934 May, [facility] [address] [id number] [place] [address]- 5788 18 Apr, 2012 [facility] [address] [id number] [place] [address]- 2430 18 Apr, 2012 [facility] [address] [id number] [place] [address]- 6180 Apr, [facility] [address] [id number] [place] [address]- 4306 Apr, [facility] [address] [id number] [place] [address]- 4167 10 Apr, 2012 [facility] [address] [id number] [place] [address]- 0987 10 Apr, 2012 [facility] [address] [id number] [place] [address]- 4392 07 Apr, 2012 [facility] [place] [facility] [address] [id number] [place] [address]- 2099 07 Apr, 2012 [facility] [address] [id number] [place] [address]- 8959 07 Apr, 2012 [facility] [address] [id number] [address] 8[address] Apr, [facility] [place] [facility] [address] [id number] [place] [address]- 9278 Apr, [facility] [place] [facility] [address] [id number] [place] [address]- 4012 Apr, [facility] [place] [facility] [address] [id number] [place] [address]- 3591 Apr, [facility] [place] [facility] [address] [id number] [place] [address]- 9664 Apr, [facility] [place] [facility] [address] [id number] [place] [address]- 5205 Apr, [facility] [place] [facility] [address] [id number] [place] [address]- 6505 Apr, [facility] [place] [facility] [address] [id number] [place] [address]- 3424 Mar, [facility] [place] [facility] [address] [id number] [place] [address]- 3220 Mar, [facility] [place] [facility] [address] [id number] [place] [address]- 3332 Mar, [facility] [place] [facility] [address] [id number] [place] [address]- 3294 Mar, [facility] [place] [facility] [address] [id number], [place] [address]- 3737 Mar, [facility] [place] [facility] [address] [id number], [place] [address]- 8577 Mar, [facility] [place] [facility] [address] [id number], [place] [address]- 4984 Mar, [facility] [place] [facility] [address] [id number], [place] [address]- 7616 Mar, [facility] [place] [facility] [address] [facility] [id number] [place] [address]- 9654 Mar, [facility] [place] [facility] [address] [id number] [place] [address]- 2546 Mar, [facility] [place] [facility] [address] [id number] [place] [address] 2546 Feb, [facility] [place] [facility] [address] [id number] [place] [address]- 2546 Feb, [facility] [place] [facility] [address] [id number] [place] [address]- 2546 Feb, [facility] [place] [facility] [address] [id number] [place] [address]- 2546 Feb, [facility] [place] [facility] [address] [id number] [place] [address]- 2546 Feb, [facility] [place] [facility] [address] [id number] [place] [address]- 2546 Feb, [facility] [place] [facility] [address] [id number] [place] [address]- 2544 Jan, [facility] [place] [facility] [address] [id number] [place] [address]- 5537 Dec, [facility] [place] [facility] [address] [id number] [place] [address]- 7816 Dec, [facility] [place] [facility] [address] [id number] [place] [address]- 2546 Dec, [facility] [place] [facility] [address] [id number] [place] [address]- 2546 Dec, [facility] [place] [facility] [address] [id number] [place] [address]- 2540 Nov, [facility] [place] [facility] [address] [id number] [place] [address]- 2546 Nov, [facility] [place] [facility] [address] [id number] [place] [address]- 2546 Nov, [facility] [place] [facility] [address] [id number] [place] [address]- 5984 Nov, [facility] [address] [id number] [place] [address]- 5697 Oct, [facility] [place] [facility] [address] [id number] [place] [address]- 5101 Oct, [facility] [place] [facility] [address] [id number] [place] [address]- 9971 Oct, [facility] [place] [facility] [address] [id number] [place] [address]- 1937 Oct, [facility] [place] [facility] [address] [id number] [place] [address]- 6266 Oct, [facility] [place] [facility] [address] [id number] [place] [address]- 3784 September, [facility] [place] [facility] [address] [id number] [place] [address]- 2410 September, [facility] [place] [facility] [address] [id number] [place] [address]- 9802 September, [facility] [place] [facility] [address] [id number] [place] [address]- 3193 September, [facility] [place] [facility] [address] [id number] [place] [address]- 3447 September, [facility] [place] [facility] [address] [id number] [place] [address]- 8452 September, [facility] [place] [facility] [address] [id number][place] [address]- 7192 September, [facility] [place] [facility] [address] [id number] [place] [address]- 6292 September, [facility] [place] [facility] [address] [id number] [place] [address]- 9849 Aug, [facility] [place] [facility] [address] [id number] [place] [address]- 3097 Aug, [facility] [place] [facility] [address] [id number] [place] [address]- 8029 19 Aug, 2011 [facility] [address] [id number] [place] [address]- 9389 19 Aug, 2011 [facility] [place] [facility] [address] [id number] [place] [address]- 6699 18 Aug, 2011 [facility] [place] [facility] [address] [id number] [place] [address]- 2776 17 Aug, 2011 [facility] [place] [facility] [address] [id number] [place] [address]- 4977 13 Aug, 2011 [facility] [place] [facility] [address] [id number] [place] [address]- 5791 12 Aug, 2011 [facility] [place] [facility] [address] [id number] [place] [address]- 1675 10 Aug, 2011 [facility] [address] [id number] [place] [address]- 6397 09 Aug, 2011 [facility] [place] [facility] [address] [id number] [place] [address]- 9627 02 Aug, 2011 [facility] [place] [facility] [address] [id number] [place] [address]- 1429 02 Aug, 2011 [facility] [place] [facility] [address] [id number] [place] [address]- 0859 29 Jul, 2011 [facility] [place] [facility] [address] [id number] [place] [address]- 5432 28 Jul, 2011 [facility] [place] [facility] [address] [id number] [place] [address]- 0343 27 Jul, 2011 [facility] [place] [facility] [address] [id number] [place] [address]- 3116 23 Jul, 2011 [facility] [place] [facility] [address] [id number] [place] [address]- 5259 21 Jul, 2011 [facility] [place] [facility] [address] [id number] [place] [address]- 7847 Jul, [facility] [place] [facility] [address] [id number] [place] [address]- 3526 14 Jul, 2011 [facility] [place] [facility] [address] [id number] [place] [address]- 4216 13 Jul, 2011 [facility] [place] [facility] [address] [id number] [place] [address] 2546 07 Jul, 2011 [facility] [place] [facility] [address] [id number] [place] [address]- 2826 24 Jun, 2011 [facility] [place] [facility] [address] [id number] [place] [address]- 4949 Jun, [facility] [place] [facility] [address] [id number] [place] [address]- 2396 Jun, [facility] [place] [facility] [address] [id number] [place] [address]- 7656 14 Jun, 2011 [facility] [place] [facility] [address] [id number] [place] [address]- 8616 Jun, [facility] [place] [facility] [address] [id number] [place] [address]- 3403 Jun, [facility] [place] [facility] [address] [id number] [place] [address]- 8726 Jun, [facility] [place] [facility] [address] [id number] [place] [address]- 8295 May, [facility] [place] [facility] [address] [id number] [place] [address]- 2154 May, [facility] [place] [facility] [address] [id number] [place] [address]- 9834 May, [facility] [place] [facility] [address] [id number] [place] [address] 2546 May, [facility] [place] [facility] [address] [id number] [place] [address]- 3215 May, [facility] [place] [facility] [address] [id number] [place] [address]- 0951 May, [facility] [address] [id number] [place] [address]- 9222 May, [facility] [place] [facility] [address] [id number] [place] [address]- 9204 Apr, [facility] [place] [facility] [address] [id number] [place] [address]- 5606 Apr, [facility] [place] [facility] [address] [id number] [place] [address]- 3061 Apr, [facility] [address] [id number] [place] [address]- 4114 Apr, [facility] [place] [facility] [address] [id number] [place] [address]- 6389 Apr, [facility] [address] [id number] [place] [address]- 2500 Apr, [facility] [place] [facility] [address] [id number] [place] [address]- 4066 Apr, [facility] [place] [facility] [address] [id number] [place] [address]- 9613 Apr, [facility] [place] [facility] [address] [id number] [place] [address]- 5085 Apr, [facility] [place] [facility] [address] [id number] [place] [address]- 3915 Mar, [facility] [place] [facility] [address] [id number] [place] [address]- 0868 Mar, [facility] [place] [facility] [address] [id number] [place] [address]- 6646 Mar, [facility] [place] [facility] [address] [id number] [place] [address]- 1734 Mar, [facility] [place] [facility] [address] [id number] [place] [address]- 3458 Mar, [facility] [place] [facility] [address] [id number] [place] [address]- 4736 Feb, [facility] [place] [facility] [address] [id number] [place] [address]- 1906 Feb, [facility] [place] [facility] [address] [id number] [place] [address] 2546 Feb, [facility] [place] [facility] [address] [id number] [place] [address] 2546 Dec, [facility] [place] [facility] [address] [id number] [place] [address] 2541 Nov, [facility] [place] [facility] [address] [id number] [place] [address]- 6916 Apr, [facility] [place] [facility] [address] [id number] [place] [address]- 7964 Apr, [facility] [place] [facility] [address] [id number] [place] [address]- 5677 16 Apr, 2010 [facility] [place] [facility] [address] [id number] [place] [address]- 5065 Apr, [facility] [place] [facility] [address] [id number] [place] [address] 2548 Apr, [facility] [place] [facility] [address] [id number] [place] [address] 2546 Apr, [facility] [place] [facility] [address] [id number] [place] [address] 2546 Apr, [facility] [place] [facility] [address] [id number] [place] [address] 2544 Apr, [facility] [place] [facility] [address] [id number] [place] [address] 2546 Mar, [facility] [place] [facility] [address] [id number] [place] [address] 2546 Mar, [facility] [place] [facility] [address] [id number] [place] [address]- 0458 Mar, [facility] [address] [facility] [id number] [address]- 5614 Mar, [facility] [address] [id number], [place] [address]- 3691 Mar, [facility] [address] [id number], [place] [address]- 7275 Mar, [facility] [id number], [place] [address]- 4288 Mar, [facility] [address] [id number], [place] [address]- 1124 Mar, [facility] [address] [id number], [place] [address]- 2751 Mar, [facility] [address] [id number], [place] [address]- 7415 Mar, IMMUNIZATIONS No Known Immunizations SOCIAL HISTORY Never Assessed REASON FOR VISIT [facility] PLAN OF CARE VITAL SIGNS MEDICATIONS Unknown [...] w/ hemarthrosis R shoulder s/p fall 12/2009 Medical History lower GI bleed - rectal ulceration 10/2017 Surgical History cholecystectomy Surgical History heart cath Surgical History tonsillectomy and adenoidectomy Surgical History carotid endarterectomy 01/2011 Surgical History hysterectomy Surgical History orthopedic surgery-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 (Carpino) 1986 Surgical History osteomyelitis left 4th toe 2006 Surgical History laser eye surgery both eyes 05/2015 Surgical History [facility] Carotid Dopplers Mild Plaque 01/2018 Hospitalization History Hyperglycemia, Hypoxia--[facility] 01/21/16 Hospitalization History surgeries Hospitalization History UTI 02/2017 Hospitalization History HTN, TIA like symptoms 08/2017 Hospitalization History [facility]- CVA 10/05/2017 Hospitalization History [facility]- Inpatient rehab where patient Coded then transfered to ICU 10/15/2017 Hospitalization History [facility]- GI Bleed 11/09/2017
--- OUTSIDE RECORDS SUMMARY | 2018-04-22 22:50 | XMS REPORT ---
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 Tender Name Role Phone CARLOS LARA Unavailable PROBLEMS Type Condition ICD9-CM Code JCL88-IN Code Onset Dates Condition Status SNOMED Code Problem Renal osteodystrophy N25.0 Active 45748546 Problem Iron deficiency anemia, unspecified iron deficiency anemia type D50.9 Active 36119808 Problem Coronary artery disease involving la posta coronary artery of la posta heart, angina presence unspecified I25.10 Active 7228081132877 Problem Stenosis of carotid artery, unspecified laterality I65.29 Active 42512543 Problem Generalized osteoarthritis M15.9 Active 674292034 Problem Aortic valve sclerosis I35.8 Active 73113824 Problem Essential hypertension I10 Active 77666684 Problem Mixed hyperlipidemia E78.2 Active 996233330 Problem 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 Active 8387564 Problem Chronic kidney disease, unspecified CKD stage N18.9 Active 241083177 Problem Type 2 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 Active 19589114 Problem Type 2 diabetes mellitus with unspecified complications E11.8 Active 87818362 Problem Type 2 diabetes mellitus with hyperglycemia E11.65 Active 52176064 Problem correction 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.4 Active 197475284 Problem Bladder spasms N32.89 Active 197223899 Problem Pain R52 Active 71828055 Problem Lumbago with sciatica, right side M54.41 Active 927440549 Problem Acute anxiety F41.9 Active 11544439 Problem Anemia in other chronic diseases classified elsewhere D63.8 Active 491865269 Problem Type 2 diabetes mellitus with diabetic polyneuropathy E11.42 Active 987705218 Problem Type 2 diabetes mellitus with foot ulcer E11.621 Active 646701178 Problem Other chronic pain G89.29 Active 64762147 Problem Slow transit constipation K59.01 Active 95720299 Problem Inability to bear weight R26.89 Active 677476886 Problem Chronic kidney disease (CKD), stage 4 (severe) N18.4 Active 081959722 Problem Severe sleep apnea G47.30 Active 37766455 Problem Trochanteric bursitis of left hip M70.62 Active 660822907099532 Problem Decreased diffusion capacity R94.2 Active 92175777 Problem Hypoxemia R09.02 Active 455429700 Problem Chronic kidney disease, stage 3 (moderate) N18.3 Active 571871071 Problem Diarrhea, unspecified type R19.7 Active 72696383 Problem Transient cerebral ischemia, unspecified type G45.9 Active 646545119 Problem Anxiety about health F41.8 Active 093824156 Problem BMI 50.0-59.9, adult Z68.43 Active 686040293 Problem Port catheter in place Z95.828 Active 324728265 ALLERGIES No Information ENCOUNTERS Encounter Location Date Diagnosis [place] [address] [address] Apr, [place] [address] [address]- [address] Apr, Urinary tract infection without hematuria, site unspecified N39.[address] [address]- [address] Feb, Type 2 diabetes mellitus with hyperglycemia E11.[address] [address]- 8[address] Feb, [facility] [address] [place] [id number] Feb, Lumbago with sciatica, right side M54.41 ; Other chronic pain G89.29 and Trochanteric bursitis, right hip M70.61 [place] [address] [address]- 9323 Feb, [place] [address] 95076- 9688 Feb, Type 2 diabetes mellitus with diabetic polyneuropathy E11.42 and Chronic kidney disease (CKD), stage 4 (severe) N18.4 [place] [address] [place] [id number] [place] [address] 34665- 3997 17 Jan, 2018 [place] [address] 23182- 3319 14 Jan, 2018 Acute anxiety F41.9 [place] [address] 84406- 7548 04 Jan, 2018 Inability to bear weight R26.89 [facility] [address] [place] [id number] Dec, Low back pain M54.5 ; Other chronic pain G89.29 and Chronic kidney disease (CKD), stage 4 (severe) N18.[address] 9[address]60- 7588 Dec, Type 2 diabetes mellitus with hyperglycemia E11.65 [place] [address] 95103- 7518 Dec, [facility] [address] [place] [id number] Dec, Type 2 diabetes mellitus with hyperglycemia E11.65 ; Essential hypertension I10 ; Generalized osteoarthritis M15.9 ; Mixed hyperlipidemia E78.2 ; Hypoxia R09.02 ; Port catheter in place Z95.828 ; Anemia due to acute blood loss D62 ; Chronic kidney disease, unspecified CKD stage N18.9 and Severe sleep apnea G47.30 [place] [address] [place] [id number] [place] [address] 45891- 5156 Dec, Type 2 diabetes mellitus with hyperglycemia E11.65 [place] [address] [place] [id number] [place] [address] 63960- 3159 Dec, [place] [address] 26295- 7893 Dec, Type 2 diabetes mellitus with hyperglycemia E11.65 [place] [address] [place] [id number] [place] [address] 44357- 3234 Dec, Left leg pain M79.605 [place] [address] 66100- 4236 Nov, Slow transit constipation K59.01 [facility] [address] [address] Nov, [facility] [address] [place] [id number] Nov, Anemia due to acute blood loss D62 [facility] [address] [place] [address] 03205- 1876 Nov, [facility] [address] [place] [id number] [place] [address] 66579- 3776 Nov, Bladder spasms N32.89 [facility] [address] [place] [id number] [place] [address] 736939- 7338 Nov, Pain R52 [facility] [address] [id number] Nov, Anemia due to acute blood loss D62 [facility] [address] [place] [address] 57187- 7496 Nov, Pain in right hip M25.551 and Pain in left hip M25.552 [facility] [address] [place] [address] 58954- 8039 Nov, [facility] [address] [place] [address] 29368285- 2823 Nov, [facility] [address] [address] 6736 Nov, [facility] [address] [address] 7145 Nov, [facility] [address] [place] [address] 92319- 1859 Oct, [facility] [address] [place] [address] 548445- 7218 Oct, [facility] [address] [id number] Oct, Encounter for examination for admission to intermediate Z02.2 ; Chronic kidney disease, unspecified CKD stage N18.9 ; Type 2 diabetes mellitus with unspecified complications E11.8 ; 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 ; Essential hypertension I10 ; Hypoxia R09.02 ; Severe sleep apnea G47.30 ; Stenosis of carotid artery, unspecified laterality I65.29 ; Generalized osteoarthritis M15.9 ; Coronary artery disease involving la posta coronary artery of la posta heart, angina presence unspecified I25.10 ; Port catheter in place Z95.828 and Hemorrhoids, unspecified hemorrhoid type K64.9 [facility] [address] 40388- 4105 Oct, [place] [address] 22251- 7214 Oct, [place] [address] 08217- 4642 Oct, [place] [address] 49679- 6375 Oct, [facility] [address] [place] [id number] [place] [address] 48385 -5280 September, BMI 50.0-59.9, adult Z68.43 [place] [address] 82831- 7668 September, [facility] [address] [place] [id number] [place] [address] 10922- 0111 September, [place] [address] [place] [id number] [place] [address] 07185- 6813 Aug, Type 2 diabetes mellitus with foot ulcer E11.621 ; Transient cerebral ischemia, unspecified type G45.9 ; Essential hypertension I10 ; Mixed hyperlipidemia E78.2 and BMI 50.0-59.9, adult Z68.43 [facility] [address] [place] [id number] [place] [address] 51046- 6027 Aug, [facility] [address] [place] [id number] [place] [address] 95223- 4279 14 Mar, 2018 Anxiety about health F41.8 and Mixed hyperlipidemia E78.2 [place] [address] [place] [id number] [place] [address] 36067- 6923 Jul, [place] [address] [place] [id number] [place] [address] 08081- 3349 Jun, [place] [address] [place] [id number] [place] [address] 73042- 1471 Jun, Type 2 diabetes mellitus with hyperglycemia E11.65 ; Type 2 diabetes mellitus with foot ulcer E11.621 ; Port catheter in place Z95.828 ; 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 ; Contact with and (suspected) exposure to potentially hazardous body fluids Z77.21 and BMI 50.0-59.9, adult Z68.43 [place] [address] [place] [id number] [place] [address] 29470- 3222 May, [place] [address] 32377- 7876 May, Open wound of right great toe, subsequent encounter S91.101D [place] [address] [place] [id number] [place] [address] 22473- 1425 May, [place] [address] [place] [id number] [place] [address] 57428- 6435 Apr, [place] [address] [place] [id number] [place] [address] 55069- 9261 15 Apr, 2017 [place] [address] [place] [id number] [place] [address] 80630- 4729 14 Apr, 2017 [place] [address] [place] [id number] [place] [address] 15884- 8015 14 Apr, 2017 Type 2 diabetes mellitus with diabetic polyneuropathy E11.42 [place] [address] [place] [id number] [place] [address] 61829- 8128 13 Apr, 2017 Open wound of right great toe, subsequent encounter S91.101D [place] [address] [place] [id number] [place] [address] 91332- 8047 Apr, Open wound of right great toe, subsequent encounter S91.101D ; Breast pain, left N64.4 ; Breast cancer screening Z12.31 ; Type 2 diabetes mellitus with foot ulcer E11.621 ; Essential hypertension I10 and BMI 50.0-59.9, adult Z68.43 [place] [address] 10632- 6412 Mar, Encounter for immunization Z23 [place] [address] 50202- 3044 Mar, [address] 89152- 3773 Mar, [place] [address] 88069- 7823 Mar, Type 2 diabetes mellitus with diabetic polyneuropathy E11.42 ; Type 2 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 ; Type 2 diabetes mellitus with foot ulcer E11.621 ; Essential hypertension I10 ; Hypoxemia R09.02 and Generalized osteoarthritis M15.9 [place] [id number] [place] [address] 77435- 8361 Mar, Chronic kidney disease, stage 3 (moderate) N18.3 ; Acute cystitis without hematuria N30.00 ; Essential hypertension I10 ; Muscle spasms of neck M62.838 ; Type 2 diabetes mellitus with diabetic polyneuropathy E11.42 and BMI 50.0-59.9, adult Z68.43 [place] [address] [place] [id number] [place] [address] 79037- 7008 Feb, [facility] [address] 31472 -8137 Feb, [place] [address] 84003- 5409 Feb, [place] [address] [place] [id number] [place] [address] 45447- 5895 Feb, [place] [address] [address]- 7180 Feb, [facility] [address] [place] [id number] [place] [address] 41859- 3298 Feb, [facility] [address] [place] [id number] [place] [address] 09878- 0791 Feb, Mixed hyperlipidemia E78.2 [facility] [address] [place] [id number] [place] [address] 67504- 2189 Feb, [facility] [address] [place] [id number] [place] [address] 37666- 9996 Jan, [facility] [address] [place] [id number] [place] [address] 28805- 5928 Jan, Generalized osteoarthritis M15.9 [facility] [address] [place] [id number] [place] [address] 34656- 8158 Oct, [facility] [address] [place] [id number] [place] [address] 98979- 1233 Jul, [facility] [address] [place] [id number] [place] [address] 29597- 7489 Jul, [facility] [address] [place] [id number] [place] [address] 42726- 7114 Jul, Type 2 diabetes mellitus with hyperglycemia E11.65 ; Chronic kidney disease, stage 3 (moderate) N18.3 ; Type 2 diabetes mellitus with foot ulcer E11.621 ; Type 2 diabetes mellitus with diabetic polyneuropathy E11.42 ; Generalized osteoarthritis M15.9 ; Trochanteric bursitis of left hip M70.62 and Tinea pedis of both feet B35.3 [facility] [address] [place] [id number] [place] [address] 29017- 8699 Jun, [facility] [address] [place] [address] 24948- 7544 Apr, [facility] [address] [place] [id number] [place] [address] 903775- 2047 Apr, [facility] [address] [place] [id number] [place] [address] 51112- 6594 Mar, [place] [address] [place] [id number] [place] [address] 58935- 4474 Feb, Encounter for immunization Z23 [place] [address] 97933- 6239 18 Feb, 2016 [place] [address] 79530- 5731 14 Feb, 2016 Type 2 diabetes mellitus with hyperglycemia E11.65 ; Encounter for immunization Z23 ; Diarrhea, unspecified type R19.7 ; Essential hypertension I10 ; Mixed hyperlipidemia E78.2 ; Hypoxia R09.02 ; 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 and Type 2 diabetes mellitus with foot ulcer E11.[address] 27423- 2232 Jan, [place] [address] 37684- 9055 Jan, Type 2 diabetes mellitus with hyperglycemia E11.65 and Pneumonia due to infectious organism, unspecified laterality, unspecified part of lung J18.9 [place] [address] [place] [id number] [place] [address] 52199- 2672 Jan, [place] [address] [place] [id number] [place] [address] 55080- 5895 Jan, [place] [address] 44364- 1160 Oct, Type 2 diabetes mellitus with hyperglycemia E11.65 ; Generalized osteoarthritis M15.9 and Chronic prescription opiate use Z79.891 [place] [address] 29907- 8144 September, [place] [address] [place] [id number] [place] [address] 46585- 5305 Aug, [place] [address] [place] [address]- 5830 Aug, [facility] [address] [place] [id number] [place] [address] 17769- 9721 Aug, [facility] [address] [place] [id number] [place] [address] 32663- 5115 Aug, [facility] [address] [place] [id number] [place] [address] 24491- 6887 Jun, [facility] [address] 11301- 1153 Jun, Type 2 diabetes mellitus with hyperglycemia E11.65 ; Mixed hyperlipidemia E78.2 ; Vaginal itching L29.8 ; Neck muscle spasm M62.838 and Skin abrasion T14.8 [place] [address] 46482- 6513 Apr, [place] [address] 92485- 2214 Apr, [facility] [address] [place] [id number] [place] [address] 16548- 8103 Mar, [place] [address] 09714- 7110 Feb, [place] [address] [place] [id number] [place] [address] 69083- 9836 Feb, Type 2 diabetes mellitus with hyperglycemia E11.65 ; Type 2 diabetes mellitus with foot ulcer E11.621 ; Type 2 diabetes mellitus with diabetic polyneuropathy E11.42 and Encounter for immunization Z23 [facility] [address] [place] [id number] [place] [address] 51837- 7612 Jan, Hypertension 401.9 ; Uncontrolled type 2 diabetes mellitus 250.02 ; Right shoulder pain 719.41 and Ulcer of heel and midfoot 707.14 [place] [address] [place] [id number] [place] [address] 55233- 7279 Dec, Diabetes with other specified manifestations, type II or unspecified type, not stated as uncontrolled 250.80 ; Ulcer of heel and midfoot 707.14 ; Hypertension 401.9 ; Hip pain, left 719.45 and Acute anxiety 300.00 [facility] [address] [address]- 1514 14 Nov, 2014 [facility] [address] [address]- 9701 Nov, [facility] [address] [place] [id number] [place] [address] 50981- 5755 September, Anxiety attack 300.01 and Cellulitis 682.9 [facility] [address] [place] [id number] [place] [address] 513925- 8844 September, [facility] [address] [place] [address] [address]- 7522 September, [facility] [address] [place] [id number] [place] [address] 85490- 6930 September, [facility] [address] [address]- 4783 Aug, [facility] [address] [place] [address] [address]- 7064 Aug, [facility] [address] [address]- 6788 Jul, [facility] [address] [address]- 5756 Jul, [facility] [address] [address]- 6681 Jul, [facility] [address] [address]- 1536 May, [facility] [address] [address]- 8027 May, [facility] [address] [address]- 1779 Mar, [facility] [place] [facility] [address] [id number] [place] [address]- 9661 Mar, [facility] [place] [facility] [address] [id number] [place] [address]- 0661 Mar, [facility] [place] [facility] [address] [id number] [place] [address]- 9203 Mar, [facility] [place] [facility] [address] [id number] [place] [address]- 5173 Mar, [facility] [place] [facility] [address] [id number] [place] [address]- 8242 Mar, [facility] [place] [facility] [address] [id number] [place] [address]- 1445 Mar, [facility] [place] [facility] [address] [id number] [place] [address]- 6695 14 Feb, 2014 [facility] [place] [facility] [address] [id number] [place] [address]- 8114 14 Feb, 2014 [facility] [place] [facility] [address] [id number] [place] [address]- 8921 30 Jan, 2014 [facility] [place] [facility] [address] [id number] [place] [address]- 2543 30 Jan, 2014 [facility] [place] [facility] [address] [id number] [place] [address]- 2544 26 Jan, 2014 [facility] [place] [facility] [address] [id number] [place] [address]- 2544 26 Jan, 2013 [facility] [place] [facility] [address] [id number] [place] [address] 2543 25 Jan, 2014 [facility] [place] [facility] [address] [id number] [place] [address] 2546 25 Jan, 2014 [facility] [place] [facility] [address] [id number] [place] [address] 2546 25 Jan, 2014 [facility] [place] [facility] [address] [id number] [place] [address]- 4277 25 Jan, 2013 [facility] [place] [facility] [address] [id number] [place] [address]- 9152 18 Sep, 2013 [facility] [place] [facility] [address] [id number] [place] [address]- 5588 18 Jan, 2013 [facility] [place] [facility] [address] [id number] [place] [address]- 2159 06 Sep, 2013 [facility] [place] [facility] [address] [id number] [place] [address]- 6039 06 Sep, 2013 [facility] [place] [facility] [address] [id number] [place] [address]- 4043 05 Sep, 2013 [facility] [place] [facility] [address] [id number] [place] [address]- 5212 05 Sep, 2013 [facility] [place] [facility] [address] [id number] [place] [address]- 5491 Sep, 2013 [facility] [place] [facility] [address] [id number] [place] [address]- 8809 05 Sep, 2013 [facility] [place] [facility] [address] [id number] [place] [address]- 0483 05 Sep, 2013 [facility] [place] [facility] [address] [id number] [place] [address]- 9571 05 Jan, 2013 [facility] [place] [facility] [address] [id number] [address]- 0227 Dec, 2013 [facility] [place] [facility] [address] [id number] [address]- 0944 Dec, [facility] [place] [facility] [address] [id number] [place] [address]- 7106 Dec, [facility] [place] [facility] [address] [id number] [place] [address]- 0378 Dec, [facility] [place] [facility] [address] [id number] [place] [address]- 8463 Dec, 2013 [facility] [place] [facility] [address] [id number] [place] [address]- 1925 Dec, [facility] [place] [facility] [address] [id number] [place] [address]- 1863 Dec, [facility] [place] [facility] [address] [id number] [place] [address]- 6371 Dec, [facility] [place] [facility] [address] [id number] [place] [address]- 2937 Dec, [facility] [place] [facility] [address] [id number] [place] [address]- 3210 Dec, [facility] [place] [facility] [address] [id number] [place] [address]- 8069 Nov, [facility] [place] [facility] [address] [id number] [place] [address]- 8006 Nov, [facility] [place] [facility] [address] [id number] [place] [address]- 1467 Nov, [facility] [place] [facility] [address] [id number] [place] [address]- 4035 Nov, [facility] [place] [facility] [address] [id number] [place] [address]- 0650 Nov, [facility] [place] [facility] [address] [id number] [place] [address]- 9297 Nov, [facility] [place] [facility] [address] [id number] [place] [address]- 6500 Oct, [facility] [place] [facility] [address] [id number] [place] [address]- 4282 Oct, [facility] [place] [facility] [address] [id number] [place] [address]- 5066 Oct, [facility] [place] [facility] [address] [id number] [place] [address]- 9976 Oct, [facility] [place] [facility] [address] [id number] [place] [address]- 9176 Oct, [facility] [place] [facility] [address] [id number] [place] [address]- 3352 Oct, [facility] [place] [facility] [address] [id number] [place] [address]- 3340 Oct, [facility] [place] [facility] [address] [id number] [place] [address]- 6138 Oct, [facility] [place] [facility] [address] [id number] [place] [address] Oct, [facility] [place] [facility] [address] [id number] [place] [address] Oct, [facility] [place] [facility] [address] [id number] [place] [address] Oct, [facility] [place] [facility] [address] [id number] [place] [address] Oct, [facility] [place] [facility] [address] [id number] [place] [address] September, [facility] [place] [facility] [address] [id number] [place] [address] September, [facility] [place] [facility] [address] [id number] [place] [address] September, [facility] [place] [facility] [address] [id number] [place] [address] Aug, [facility] [place] [facility] [address] [id number] [place] [address] Aug, [facility] [place] [facility] [address] [id number] [place] [address] Jul, [facility] [place] [facility] [address] [id number] [place] [address] Jul, [facility] [place] [facility] [address] [id number] [place] [address] 10 Jul, 2013 [facility] [place] [facility] [address] [id number] [place] [address] Jul, [facility] [place] [facility] [address] [id number] [place] [address] Jul, [facility] [place] [facility] [address] [id number] [place] [address] Jul, [facility] [place] [facility] [address] [facility] [id number] [place] [address] Jul, [facility] [place] [facility] [address] [id number] [place] [address] Jul, [facility] [place] [facility] [address] [id number] [place] [address] Jul, [facility] [place] [facility] [address] [id number] [place] [address] Jul, [facility] [place] [facility] [address] [facility] [id number] [place] [address] Jun, [facility] [place] [facility] [address] [id number] [place] [address] Jun, [facility] [place] [facility] [address] [facility] [id number] [place] [address] 3581 Jun, [facility] [place] [facility] [address] [facility] [id number] [place] [address]28 Jun, [facility] [place] [facility] [address] [facility] [id number] [place] [address] 7455 May, [facility] [place] [facility] [address] [facility] [id number] [place] [address] 2032 May, [facility] [place] [facility] [address] [id number] [place] [address] 8856 Apr, [facility] [place] [facility] [address] [id number] [place] [address] 3625 Apr, [facility] [place] [facility] [address] [facility] [id number] [place] [address] 0952 Apr, [facility] [place] [facility] [address] [id number] [place] [address]- 3032 Apr, [facility] [place] [facility] [address] [id number] [place] [address]- 7884 Apr, [facility] [place] [facility] [address] [id number] [place] [address]- 6066 Apr, [facility] [place] [facility] [address] [id number] [place] [address]- 7560 Apr, [facility] [place] [facility] [address] [id number] [place] [address]- 0391 Apr, [facility] [place] [facility] [address] [id number] [place] [address]- 1703 Mar, [facility] [place] [facility] [address] [id number] [place] [address] Mar, [facility] [place] [facility] [address] [id number] [place] [address]- 5222 Mar, [facility] [place] [facility] [address] [id number] [place] [address]- 3425 Mar, [facility] [place] [facility] [address] [id number] [place] [address]- 4634 Mar, [facility] [place] [facility] [address] [id number] [place] [address] Mar, [facility] [place] [facility] [address] [id number] [place] [address]- 7399 30 Feb, 2013 [facility] [place] [facility] [address] [id number] [place] [address]- 4902 30 Feb, 2013 [facility] [place] [facility] [address] [id number] [place] [address]- 9074 18 Feb, 2013 [facility] [place] [facility] [address] [id number] [place] [address]- 8313 18 Feb, 2013 [facility] [place] [facility] [address] [id number] [place] [address]- 6932 14 Feb, 2013 [facility] [place] [facility] [address] [id number] [place] [address]- 5944 14 Feb, 2013 [facility] [place] [facility] [address] [id number] [place] [address]- 9497 04 Feb, 2013 [facility] [place] [facility] [address] [id number] [place] [address]- 1044 27 Jan, 2013 [facility] [place] [facility] [address] [id number] [place] [address]- 0274 26 Jan, 2013 [facility] [place] [facility] [address] [id number] [place] [address]- 5061 Jan, [facility] [place] [facility] [address] [id number] [place] [address]- 3631 05 Jan, 2013 [facility] [place] [facility] [address] [id number] [place] [address]- 2401 Dec, [facility] [place] [facility] [address] [id number] [place] [address]- 6519 Dec, [facility] [place] [facility] [address] [id number] [place] [address]- 0760 Dec, [facility] [place] [facility] [address] [id number] [place] [address]- 2608 Nov, [facility] [place] [facility] [address] [id number], [place] [address]990 Nov, [facility] [place] [facility] [address] [id number], [place] [address]- 63[address] Nov, [facility] [place] [facility] [address] [id number] [place] [address]- 6892 Nov, [facility] [place] [facility] [address] [id number], [place] [address]- 6483 Nov, [facility] [place] [facility] [address] [id number] [place] [address]- 7161 Nov, [facility] [place] [facility] [address] [id number] [place] [address]- 2006 28 Oct, 2012 [facility] [address] [id number] [place] [address]- 6083 Oct, [facility] [place] [facility] [address] [id number] [place] [address]- 2489 Oct, [facility] [address] [id number] [place] [address]- 7588 Oct, [facility] [place] [facility] [address] [id number] [place] [address]- 0863 Oct, [facility] [address] [id number] [place] [address]- 5558 Oct, [facility] [address] [id number] [place] [address]- 6816 September, [facility] [address] [id number] [place] [address]- 6320 September, [facility] [address] [id number] [place] [address]- 3218 September, [facility] [address] [id number] [place] [address]- 3120 September, [facility] [address] [id number] [place] [address]- 6700 Aug, [facility] [place] [facility] [address] [id number] [place] [address]- 7923 Aug, [facility] [place] [facility] [address] [id number] [place] [address]- 8432 28 Jul, 2012 [facility] [place] [facility] [address] [id number] [place] [address]- 6877 Jul, [facility] [place] [facility] [address] [id number] [place] [address]- 0881 18 Jul, 2012 [facility] [place] [facility] [address] [id number] [place] [address] 15 Jul, 2012 [facility] [place] [facility] [address] [id number] [place] [address]- 1366 13 Jul, 2012 [facility] [address] [id number] [place] [address]- 4299 08 Jul, 2012 [facility] [address] [id number] [place] [address]- 0966 20 Jun, 2012 [facility] [address] [id number] [place] [address]- 0136 13 Jun, 2012 [facility] [address] [id number] [place] [address]- 9681 17 May, 2012 [facility] [address] [id number] [place] [address]- 4396 May, [facility] [address] [id number] [place] [address]- 2899 18 Apr, 2012 [facility] [address] [id number] [place] [address]- 0224 18 Apr, 2012 [facility] [address] [id number] [place] [address]- 0645 Apr, [facility] [address] [id number] [place] [address]- 7702 Apr, [facility] [address] [id number] [place] [address]- 9941 10 Apr, 2012 [facility] [address] [id number] [place] [address]- 0784 10 Apr, 2012 [facility] [address] [id number] [place] [address]- 8441 07 Apr, 2012 [facility] [place] [facility] [address] [id number] [place] [address]- 1049 07 Apr, 2012 [facility] [address] [id number] [place] [address]- 9781 07 Apr, 2012 [facility] [address] [id number], [place] [address]- 7310 Apr, [facility] [place] [facility] [address] [id number] [place] [address]- 3816 Apr, [facility] [place] [facility] [address] [id number] [place] [address]- 8218 Apr, [facility] [place] [facility] [address] [id number] [place] [address]- 4124 Apr, [facility] [place] [facility] [address] [id number] [place] [address]- 3386 Apr, [facility] [place] [facility] [address] [id number] [place] [address]- 7165 Apr, [facility] [place] [facility] [address] [id number] [place] [address]- 8664 Apr, [facility] [place] [facility] [address] [id number] [place] [address]- 9260 Mar, [facility] [place] [facility] [address] [id number] [place] [address]- 4331 Mar, [facility] [place] [facility] [address] [id number] [place] [address]- 6877 Mar, [facility] [place] [facility] [address] [id number] [place] [address]- 4136 Mar, [facility] [place] [facility] [address] [id number], [place] [address]- 1681 Mar, [facility] [place] [facility] [address] [id number], [place] [address]- 3478 Mar, [facility] [place] [facility] [address] [id number], [place] [address]- 2111 Mar, [facility] [place] [facility] [address] [id number], [place] [address]- 0235 Mar, [facility] [place] [facility] [address] [facility] [id number] [place] [address]- 8483 Mar, [facility] [place] [facility] [address] [id number] [place] [address]- 2546 Mar, [facility] [place] [facility] [address] [id number] [place] [address] 2546 Feb, [facility] [place] [facility] [address] [id number] [place] [address]- 2546 Feb, [facility] [place] [facility] [address] [id number] [place] [address]- 2546 Feb, [facility] [place] [facility] [address] [id number] [place] [address]- 2546 Feb, [facility] [place] [facility] [address] [id number] [place] [address]- 2546 Feb, [facility] [place] [facility] [address] [id number] [place] [address]- 2546 Feb, [facility] [place] [facility] [address] [id number] [place] [address]- 2542 Jan, [facility] [place] [facility] [address] [id number] [place] [address]- 7648 Dec, [facility] [place] [facility] [address] [id number] [place] [address]- 0676 Dec, [facility] [place] [facility] [address] [id number] [place] [address]- 2546 Dec, [facility] [place] [facility] [address] [id number] [place] [address]- 2546 Dec, [facility] [place] [facility] [address] [id number] [place] [address]- 2549 Nov, [facility] [place] [facility] [address] [id number] [place] [address]- 2546 Nov, [facility] [place] [facility] [address] [id number] [place] [address]- 2546 Nov, [facility] [place] [facility] [address] [id number] [place] [address]- 1311 Nov, [facility] [address] [id number] [place] [address]- 9399 Oct, [facility] [place] [facility] [address] [id number] [place] [address]- 9516 Oct, [facility] [place] [facility] [address] [id number] [place] [address]- 3476 Oct, [facility] [place] [facility] [address] [id number] [place] [address]- 0440 Oct, [facility] [place] [facility] [address] [id number] [place] [address]- 5775 Oct, [facility] [place] [facility] [address] [id number] [place] [address]- 1709 September, [facility] [place] [facility] [address] [id number] [place] [address]- 5423 September, [facility] [place] [facility] [address] [id number] [place] [address]- 5010 September, [facility] [place] [facility] [address] [id number] [place] [address]- 0276 September, [facility] [place] [facility] [address] [id number] [place] [address]- 4966 September, [facility] [place] [facility] [address] [id number] [place] [address]- 3891 September, [facility] [place] [facility] [address] [id number], [place] [address]- 3295 September, [facility] [place] [facility] [address] [id number] [place] [address]- 0546 September, [facility] [place] [facility] [address] [id number] [place] [address]- 5232 Aug, [facility] [place] [facility] [address] [id number] [place] [address]- 8645 Aug, [facility] [place] [facility] [address] [id number] [place] [address]- 9453 19 Aug, 2011 [facility] [address] [id number] [place] [address]- 1264 19 Aug, 2011 [facility] [place] [facility] [address] [id number] [place] [address]- 1586 18 Aug, 2011 [facility] [place] [facility] [address] [id number] [place] [address]- 0916 17 Aug, 2011 [facility] [place] [facility] [address] [id number] [place] [address]- 4966 13 Aug, 2011 [facility] [place] [facility] [address] [id number] [place] [address]- 1282 12 Aug, 2011 [facility] [place] [facility] [address] [id number] [place] [address]- 0692 10 Aug, 2011 [facility] [address] [id number] [place] [address]- 0349 09 Aug, 2011 [facility] [place] [facility] [address] [id number] [place] [address]- 6035 02 Aug, 2011 [facility] [place] [facility] [address] [id number] [place] [address]- 3903 02 Aug, 2011 [facility] [place] [facility] [address] [id number] [place] [address]- 1419 29 Jul, 2011 [facility] [place] [facility] [address] [id number] [place] [address]- 4028 28 Jul, 2011 [facility] [place] [facility] [address] [id number] [place] [address]- 8422 27 Jul, 2011 [facility] [place] [facility] [address] [id number] [place] [address]- 1470 23 Jul, 2011 [facility] [place] [facility] [address] [id number] [place] [address]- 9038 21 Jul, 2011 [facility] [place] [facility] [address] [id number] [place] [address]- 4183 Jul, [facility] [place] [facility] [address] [id number] [place] [address]- 7796 14 Jul, 2011 [facility] [place] [facility] [address] [id number] [place] [address]- 0916 13 Jul, 2011 [facility] [place] [facility] [address] [id number] [place] [address] 2546 07 Jul, 2011 [facility] [place] [facility] [address] [id number] [place] [address]- 8316 24 Jun, 2011 [facility] [place] [facility] [address] [id number] [place] [address]- 1925 Jun, [facility] [place] [facility] [address] [id number] [place] [address]- 0436 Jun, [facility] [place] [facility] [address] [id number] [place] [address]- 9426 14 Jun, 2011 [facility] [place] [facility] [address] [id number] [place] [address]- 3220 Jun, [facility] [place] [facility] [address] [id number] [place] [address]- 2719 Jun, [facility] [place] [facility] [address] [id number] [place] [address]- 6090 Jun, [facility] [place] [facility] [address] [id number] [place] [address]- 7561 May, [facility] [place] [facility] [address] [id number] [place] [address]- 7946 May, [facility] [place] [facility] [address] [id number] [place] [address]- 9398 May, [facility] [place] [facility] [address] [id number] [place] [address] 2546 May, [facility] [place] [facility] [address] [id number] [place] [address]- 7223 May, [facility] [place] [facility] [address] [id number] [place] [address]- 5321 May, [facility] [address] [id number] [place] [address]- 6461 May, [facility] [place] [facility] [address] [id number] [place] [address]- 4936 Apr, [facility] [place] [facility] [address] [id number] [place] [address]- 6986 Apr, [facility] [place] [facility] [address] [id number] [place] [address]- 2690 Apr, [facility] [address] [id number] [place] [address]- 6369 Apr, [facility] [place] [facility] [address] [id number] [place] [address]- 1861 Apr, [facility] [address] [id number] [place] [address]- 9777 Apr, [facility] [place] [facility] [address] [id number] [place] [address]- 7454 Apr, [facility] [place] [facility] [address] [id number] [place] [address]- 4116 Apr, [facility] [place] [facility] [address] [id number] [place] [address]- 7517 Apr, [facility] [place] [facility] [address] [id number] [place] [address]- 5650 Mar, [facility] [place] [facility] [address] [id number] [place] [address]- 8897 Mar, [facility] [place] [facility] [address] [id number] [place] [address]- 9320 Mar, [facility] [place] [facility] [address] [id number] [place] [address]- 2078 Mar, [facility] [place] [facility] [address] [id number] [place] [address]- 8589 Mar, [facility] [place] [facility] [address] [id number] [place] [address]- 2796 Feb, [facility] [place] [facility] [address] [id number] [place] [address]- 0846 Feb, [facility] [place] [facility] [address] [id number] [place] [address] 2546 Feb, [facility] [place] [facility] [address] [id number] [place] [address] 2546 Dec, [facility] [place] [facility] [address] [id number] [place] [address] 2545 Nov, [facility] [place] [facility] [address] [id number] [place] [address]- 1396 Apr, [facility] [place] [facility] [address] [id number] [place] [address]- 2387 Apr, [facility] [place] [facility] [address] [id number] [place] [address]- 5785 16 Apr, 2010 [facility] [place] [facility] [address] [id number] [place] [address]- 1848 Apr, [facility] [place] [facility] [address] [id number] [place] [address] 2541 Apr, [facility] [place] [facility] [address] [id number] [place] [address] 2546 Apr, [facility] [place] [facility] [address] [id number] [place] [address] 2546 Apr, [facility] [place] [facility] [address] [id number] [place] [address] 2549 Apr, [facility] [place] [facility] [address] [id number] [place] [id number] 2546 Mar, [facility] [place] [facility] [address] [id number] [place] [id number] 25[address] Mar, [facility] [place] [facility] [address] [id number] [place] [address] Mar, [facility] [address] [facility] [id number] [address] Mar, [facility] [address] [id number] [address] Mar, [facility] [address] [id number] [address] Mar, [facility] [address] [id number] [address] Mar, [facility] [address] [id number] [address] Mar, [facility] [address] [id number] [address] Mar, [facility] [address] [id number] [address] Mar, IMMUNIZATIONS No Known Immunizations SOCIAL HISTORY Never Assessed REASON FOR VISIT residential PLAN OF CARE VITAL SIGNS MEDICATIONS Medication Instructions Dosage Frequency Start Date End Date Duration Status Bactrim DS 800-160 MG Orally 2 times a day 1 tablet 12h Apr, Apr, 7 days Active RESULTS No Results PROCEDURES No Known [...] Dopplers Mild Plaque 01/2018 Hospitalization History Hyperglycemia, Hypoxia--[facility] 01/21/16 Hospitalization History surgeries Hospitalization History UTI 02/2017 Hospitalization History HTN, TIA like symptoms 08/2017 Hospitalization History [facility]- CVA 10/05/2017 Hospitalization History [facility]- Inpatient rehab where patient Coded then transfered to ICU 10/15/2017 Hospitalization History [facility]- GI Bleed 11/09/2017
--- OUTSIDE RECORDS SUMMARY | 2018-04-22 22:51 | XMS REPORT ---
Author Author CARLOS LARA [facility] Address [address] [place] [address] Care Team Providers Care Divisional Merchandising Manager Name Role Phone CARLOS LARA Unavailable PROBLEMS Type Condition ICD9-CM Code EJZ97-IO Code Onset Dates Condition Status SNOMED Code Problem Renal osteodystrophy N25.0 Active 44496638 Problem Iron deficiency anemia, unspecified iron deficiency anemia type D50.9 Active 08212732 Problem Coronary artery disease involving eklutna coronary artery of eklutna heart, angina presence unspecified I25.10 Active 4945321604546 Problem Stenosis of carotid artery, unspecified laterality I65.29 Active 03616509 Problem Generalized osteoarthritis M15.9 Active 295515966 Problem Aortic valve sclerosis I35.8 Active 66455563 Problem Essential hypertension I10 Active 75696802 Problem Mixed hyperlipidemia E78.2 Active 731225505 Problem 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 Active 8967517 Problem Chronic kidney disease, unspecified CKD stage N18.9 Active 130687496 Problem Type 2 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 Active 71700143 Problem Type 2 diabetes mellitus with unspecified complications E11.8 Active 14279573 Problem Type 2 diabetes mellitus with hyperglycemia E11.65 Active 19842012 Problem senior living 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.4 Active 881748696 Problem Bladder spasms N32.89 Active 683927293 Problem Pain R52 Active 95000911 Problem Lumbago with sciatica, right side M54.41 Active 201187988 Problem Acute anxiety F41.9 Active 22166770 Problem Anemia in other chronic diseases classified elsewhere D63.8 Active 476578855 Problem Type 2 diabetes mellitus with diabetic polyneuropathy E11.42 Active 397829762 Problem Type 2 diabetes mellitus with foot ulcer E11.621 Active 977203389 Problem Other chronic pain G89.29 Active 07941199 Problem Slow transit constipation K59.01 Active 98007910 Problem Inability to bear weight R26.89 Active 923596737 Problem Chronic kidney disease (CKD), stage 4 (severe) N18.4 Active 199026600 Problem Severe sleep apnea G47.30 Active 32953525 Problem Trochanteric bursitis of left hip M70.62 Active 090823037859341 Problem Decreased diffusion capacity R94.2 Active 54986882 Problem Hypoxemia R09.02 Active 926672535 Problem Chronic kidney disease, stage 3 (moderate) N18.3 Active 640259099 Problem Diarrhea, unspecified type R19.7 Active 12999776 Problem Transient cerebral ischemia, unspecified type G45.9 Active 003361480 Problem Anxiety about health F41.8 Active 335317259 Problem BMI 50.0-59.9, adult Z68.43 Active 115246065 Problem Port catheter in place Z95.828 Active 801953306 ALLERGIES No Information ENCOUNTERS Encounter Location Date Diagnosis [place] [address] [address] Feb, Type 2 diabetes mellitus with hyperglycemia E11.65 [place] [address] [address]- [address] Feb, [facility] [address] [place] [id number] Feb, Lumbago with sciatica, right side M54.41 ; Other chronic pain G89.29 and Trochanteric bursitis, right hip M70.61 [place] [address] [address]- [address] Feb, [place] [address] 29358- 6[address] Feb, Type 2 diabetes mellitus with diabetic polyneuropathy E11.42 and Chronic kidney disease (CKD), stage 4 (severe) N18.4 [place] [address] 08117- 8944 Jan, [place] [address] [address]29- 5728 14 Jan, 2018 Acute anxiety F41.9 [place] [address] [place] [address] Jan, Inability to bear weight R26.89 [facility] [address] [place] [id number] Dec, Low back pain M54.5 ; Other chronic pain G89.29 and Chronic kidney disease (CKD), stage 4 (severe) N18.4 [place] [address] 79365- 0570 Dec, Type 2 diabetes mellitus with hyperglycemia E11.65 [place] [address] [place] [id number] [place] [address] 31714- 6091 Dec, [facility] [address] [place] [id number] Dec, Type 2 diabetes mellitus with hyperglycemia E11.65 ; Essential hypertension I10 ; Generalized osteoarthritis M15.9 ; Mixed hyperlipidemia E78.2 ; Hypoxia R09.02 ; Port catheter in place Z95.828 ; Anemia due to acute blood loss D62 ; Chronic kidney disease, unspecified CKD stage N18.9 and Severe sleep apnea G47.30 [place] [address] [place] [id number] [place] [address] 92099- 8142 Dec, Type 2 diabetes mellitus with hyperglycemia E11.65 [place] [address] [place] [id number] [place] [address] 73392- 0065 Dec, [place] [address] [place] [id number] [place] [address] 34164- 1312 Dec, Type 2 diabetes mellitus with hyperglycemia E11.65 [place] [address] 48232- 5231 Dec, Left leg pain M79.605 [place] [address] 46925- 9225 Nov, Slow transit constipation K59.01 [place] [address] [place] [id number] [place] [address] 68431- 6263 Nov, [facility] [address] [place] [id number] Nov, Anemia due to acute blood loss D62 [facility] [address] [address] Nov, [facility] [address] [address] Nov, Bladder spasms N32.89 [facility] [address] [address] 1379 Nov, Pain R52 [facility] [address] [place] [id number] Nov, Anemia due to acute blood loss D62 [facility] [address] [address] 38[address] Nov, Pain in right hip M25.551 and Pain in left hip M25.552 [facility] [address] [address] 4408 Nov, [facility] [address] [address] 8967 Nov, [facility] [address] [address]- 1251 Nov, [facility] [address] [address]- 9912 Nov, [facility] [address] [address]- 4855 Oct, [facility] [address] [address] Oct, [facility] [address] [place] [id number] Oct, Encounter for examination for admission to group home Z02.2 ; Chronic kidney disease, unspecified CKD stage N18.9 ; Type 2 diabetes mellitus with unspecified complications E11.8 ; senior living 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.4 ; Essential hypertension I10 ; Hypoxia R09.02 ; Severe sleep apnea G47.30 ; Stenosis of carotid artery, unspecified laterality I65.29 ; Generalized osteoarthritis M15.9 ; Coronary artery disease involving eklutna coronary artery of eklutna heart, angina presence unspecified I25.10 ; Port catheter in place Z95.828 and Hemorrhoids, unspecified hemorrhoid type K64.9 [facility] [address] [place] [id number] [place] [address] 68383- 3551 Oct, [facility] [address] [place] [id number] [place] [address] 86900- 2168 Oct, [facility] [address] 95266- 6993 Oct, [facility] [address] [place] [id number] [place] [address] 48500- 3430 Oct, [facility] [address] [place] [id number] [place] [address] September, BMI 50.0-59.9, adult Z68.43 [place] [address] 19270- 1934 September, [facility] [address] [place] [id number] [place] [address] 42325- 9009 September, [place] [address] [place] [id number] [place] [address] 42568- 1544 Aug, Type 2 diabetes mellitus with foot ulcer E11.621 ; Transient cerebral ischemia, unspecified type G45.9 ; Essential hypertension I10 ; Mixed hyperlipidemia E78.2 and BMI 50.0-59.9, adult Z68.43 [place] [address] [place] [id number] [place] [address] 30257- 8514 Aug, [facility] [address] [place] [id number] [place] [address] 46993- 6756 Jul, Anxiety about health F41.8 and Mixed hyperlipidemia E78.2 [place] [address] [place] [id number] [place] [address] 41568- 8787 Jul, [facility] [address] [place] [id number] [place] [address] 53919- 6388 Jun, [place] [address] [place] [address] 59873- 7791 12 Jun, 2018 Type 2 diabetes mellitus with hyperglycemia E11.65 ; Type 2 diabetes mellitus with foot ulcer E11.621 ; Port catheter in place Z95.828 ; 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 ; Contact with and (suspected) exposure to potentially hazardous body fluids Z77.21 and BMI 50.0-59.9, adult Z68.43 [place] [address] [place] [id number] [place] [address] 64833- 7500 May, [place] [address] [place] [id number] [place] [address] 42039- 7864 May, Open wound of right great toe, subsequent encounter S91.101D [place] [address] [place] [id number] [place] [address] 02022- 6732 May, [place] [address] [place] [id number] [place] [address] 99402- 2271 Apr, [place] [address] [place] [id number] [place] [address] 74905- 2857 Apr, [place] [address] [place] [id number] [place] [address] 38280- 3308 14 Apr, 2017 [place] [address] [place] [id number] [place] [address] 41778- 2902 14 Apr, 2017 Type 2 diabetes mellitus with diabetic polyneuropathy E11.42 [place] [address] [place] [id number] [place] [address] 17590- 4148 13 Apr, 2017 Open wound of right great toe, subsequent encounter S91.101D [place] [address] 65632- 7957 08 Apr, 2017 Open wound of right great toe, subsequent encounter S91.101D ; Breast pain, left N64.4 ; Breast cancer screening Z12.31 ; Type 2 diabetes mellitus with foot ulcer E11.621 ; Essential hypertension I10 and BMI 50.0-59.9, adult Z68.43 [facility] [address] [place] [id number] [place] [address] 14745- 7972 29 Mar, 2017 Encounter for immunization Z23 [facility] [address] 16679- 1748 Mar, [facility] [address] 25741- 2914 Mar, [facility] [address] 24686- 8435 10 Mar, 2017 Type 2 diabetes mellitus with diabetic polyneuropathy E11.42 ; Type 2 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 ; Type 2 diabetes mellitus with foot ulcer E11.621 ; Essential hypertension I10 ; Hypoxemia R09.02 and Generalized osteoarthritis M15.9 [place] [address] 02668- 9878 Mar, Chronic kidney disease, stage 3 (moderate) N18.3 ; Acute cystitis without hematuria N30.00 ; Essential hypertension I10 ; Muscle spasms of neck M62.838 ; Type 2 diabetes mellitus with diabetic polyneuropathy E11.42 and BMI 50.0-59.9, adult Z68.43 [facility] [address] [place] [id number] [place] [address] 89593- 7812 30 Feb, 2017 [facility] [address] [place] [id number] [place] [address] 45233 -9395 Feb, [facility] [address] [place] [id number] [place] [address] 89395- 5400 Feb, [facility] [address] [place] [id number] [place] [address] 68131- 5388 Feb, [facility] [address] 82542- 9515 Feb, [facility] [address] [place] [id number] [place] [address] 38741- 9702 Feb, [facility] [address] 16931- 1322 Feb, Mixed hyperlipidemia E78.2 [facility] [address] [place] [address] 14429- 9389 Feb, [facility] [address] [place] [id number] [place] [address] 38346- 4427 Jan, [facility] [address] [place] [id number] [place] [address] 99687- 5685 Jan, Generalized osteoarthritis M15.9 [facility] [address] [place] [id number] [place] [address] 56513- 2826 Oct, [facility] [address] [place] [id number] [place] [address] 98932- 2610 Jul, [place] [address] [place] [id number] [place] [address] 42322- 2083 Jul, [facility] [address] [place] [id number] [place] [address] 61350- 1020 Jul, Type 2 diabetes mellitus with hyperglycemia E11.65 ; Chronic kidney disease, stage 3 (moderate) N18.3 ; Type 2 diabetes mellitus with foot ulcer E11.621 ; Type 2 diabetes mellitus with diabetic polyneuropathy E11.42 ; Generalized osteoarthritis M15.9 ; Trochanteric bursitis of left hip M70.62 and Tinea pedis of both feet B35.3 [place] [address] [address]- 8247 Jun, [facility] [address] [place] [id number] [place] [address] 32101- 6874 Apr, [facility] [address] [place] [address] 34365- 6569 Apr, [place] [address] [place] [id number] [place] [address] 23499- 4790 Mar, [facility] [address] [address]- 7552 Feb, Encounter for immunization Z23 [place] [address] [place] [id number] [place] [address] 70209- 6015 18 Feb, 2016 [facility] [address] [place] [id number] [place] [address] 07277- 1056 14 Feb, 2016 Type 2 diabetes mellitus with hyperglycemia E11.65 ; Encounter for immunization Z23 ; Diarrhea, unspecified type R19.7 ; Essential hypertension I10 ; Mixed hyperlipidemia E78.2 ; Hypoxia R09.02 ; 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 and Type 2 diabetes mellitus with foot ulcer E11.621 [facility] [address] [place] [id number] [place] [address] 62663- 3495 Jan, [place] [address] [place] [id number] [place] [address] 15781- 9817 Jan, Type 2 diabetes mellitus with hyperglycemia E11.65 and Pneumonia due to infectious organism, unspecified laterality, unspecified part of lung J18.9 [place] [address] [place] [id number] [place] [address] 24276- 0228 Jan, [place] [address] [place] [id number] [place] [address] 76831- 6506 Jan, [place] [address] [place] [id number] [place] [address] 60360- 6008 Oct, Type 2 diabetes mellitus with hyperglycemia E11.65 ; Generalized osteoarthritis M15.9 and Chronic prescription opiate use Z79.891 [place] [address] [place] [id number] [place] [address] 26927- 4952 September, [facility] [address] [place] [id number] [place] [address] 91803- 1099 Aug, [place] [address] [place] [id number] [place] [address] 32949- 2936 Aug, [facility] [address] [place] [id number] [place] [address] 57728- 6660 Aug, [place] [address] [place] [id number] [place] [address] 76901- 7306 Aug, [place] [address] [place] [id number] [place] [address] 35665- 5321 Jun, [place] [address] [place] [id number] [place] [address] 87635- 3605 Jun, Type 2 diabetes mellitus with hyperglycemia E11.65 ; Mixed hyperlipidemia E78.2 ; Vaginal itching L29.8 ; Neck muscle spasm M62.838 and Skin abrasion T14.8 [place] [address] [place] [id number] [place] [address] 40066- 2677 Apr, [place] [address] [place] [id number] [place] [address] 42247- 5215 Apr, [place] [address] [place] [id number] [place] [address] 01288- 6539 Mar, [place] [address] [place] [id number] [place] [address] 90885- 0693 Feb, [place] [address] [place] [id number] [place] [address] 97915- 2015 Feb, Type 2 diabetes mellitus with hyperglycemia E11.65 ; Type 2 diabetes mellitus with foot ulcer E11.621 ; Type 2 diabetes mellitus with diabetic polyneuropathy E11.42 and Encounter for immunization Z23 [place] [address] [place] [address] [place] [address] 15343- 1832 Jan, Hypertension 401.9 ; Uncontrolled type 2 diabetes mellitus 250.02 ; Right shoulder pain 719.41 and Ulcer of heel and midfoot 707.14 [place] [address] [place] [id number] [place] [address] 47869- 4658 Dec, Diabetes with other specified manifestations, type II or unspecified type, not stated as uncontrolled 250.80 ; Ulcer of heel and midfoot 707.14 ; Hypertension 401.9 ; Hip pain, left 719.45 and Acute anxiety 300.00 [place] [address] [place] [address] 73713- 2960 Nov, [place] [address] [place] [id number] [place] [place] [address]- 5281 Nov, [facility] [address] [facility] [id number] [address]- 7546 September, Anxiety attack 300.01 and Cellulitis 682.9 [facility] [address] [id number] [place] [address]- 3156 September, [facility] [address] [id number] [place] [address]- 2219 September, [facility] [address] [id number] [place] [address]- 6909 September, [facility] [address] [id number] [place] [address]- 7610 Aug, [facility] [address] [facility] [id number] [place] [address]- 6425 Aug, [facility] [address] [facility] [id number] [address]- 5557 Jul, [facility] [address] [place] [id number] [place] [address]- 9206 Jul, [facility] [address] [facility] [id number] [address]- 7629 Jul, [facility] [address] [place] [id number] [address]- 9650 May, [facility] [address] [facility] [id number] [place] [address]- 5059 May, [facility] [address] [facility] [id number] [place] [address]- 4409 Mar, [facility] [address] [facility] [id number] [address]- 0827 Mar, [facility] [address] [facility] [id number] [address]- 4054 Mar, [facility] [address] [facility] [id number] [place] [address]- 3045 Mar, [facility] [place] [facility] [address] [id number] [place] [address]- 6551 Mar, [facility] [place] [facility] [address] [id number] [place] [address]- 1616 Mar, [facility] [place] [facility] [address] [id number] [place] [address]- 1542 Mar, [facility] [place] [facility] [address] [id number] [place] [address]- 6523 14 Feb, 2014 [facility] [place] [facility] [address] [id number] [place] [address]- 5436 14 Feb, 2014 [facility] [place] [facility] [address] [id number] [place] [address]- 5881 30 Jan, 2014 [facility] [place] [facility] [address] [id number] [place] [address]- 8544 30 Jan, 2014 [facility] [place] [facility] [address] [id number] [place] [address]- 6808 26 Jan, 2013 [facility] [place] [facility] [address] [id number] [place] [address]- 2431 26 Jan, 2014 [facility] [place] [facility] [address] [id number] [place] [address]- 0426 25 Jan, 2013 [facility] [place] [facility] [address] [id number] [place] [address] 2542 25 Jan, 2013 [facility] [place] [facility] [address] [id number] [address]- 2541 25 Jan, 2013 [facility] [place] [facility] [address] [id number] [place] [address]- 7196 25 Jan, 2013 [facility] [place] [facility] [address] [id number] [place] [address]- 2541 18 Jan, 2013 [facility] [place] [facility] [address] [id number] [place] [address]- 2834 18 Jan, 2013 [facility] [place] [facility] [address] [id number] [place] [address]- 9902 06 Sep, 2013 [facility] [place] [facility] [address] [id number] [place] [address]- 6860 06 Sep, 2013 [facility] [place] [facility] [address] [id number] [place] [address]- 1740 Sep, 2013 [facility] [place] [facility] [address] [id number] [place] [address]- 1730 05 Sep, 2013 [facility] [place] [facility] [address] [id number] [place] [address]- 9633 05 Sep, 2013 [facility] [place] [facility] [address] [id number] [place] [address]- 4505 Sep, 2013 [facility] [place] [facility] [address] [id number] [place] [address]- 2873 Sep, 2013 [facility] [place] [facility] [address] [id number] [place] [address]- 8649 Jan, 2013 [facility] [place] [facility] [address] [id number] [place] [address]- 8749 Dec, 2013 [facility] [place] [facility] [address] [id number] [place] [address]- 8298 Dec, 2013 [facility] [place] [facility] [address] [id number] [place] [address]- 9002 Dec, 2013 [facility] [place] [facility] [address] [id number] [place] [address]- 1282 Dec, 2013 [facility] [place] [facility] [address] [id number] [place] [address]- 8022 Dec, 2013 [facility] [place] [facility] [address] [id number] [place] [address]- 8882 Dec, 2013 [facility] [place] [facility] [address] [id number] [place] [address]- 1603 Dec, [facility] [place] [facility] [address] [id number] [place] [address]- 0882 Dec, [facility] [place] [facility] [address] [id number] [place] [address]- 3570 Dec, [facility] [place] [facility] [address] [id number] [place] [address]- 8907 Dec, [facility] [place] [facility] [address] [id number] [place] [address]- 6757 Nov, [facility] [place] [facility] [address] [id number] [place] [address]- 1796 Nov, [facility] [place] [facility] [address] [id number] [place] [address]- 3896 Nov, [facility] [place] [facility] [address] [id number] [place] [address]- 7001 Nov, [facility] [place] [facility] [address] [id number] [place] [address] Nov, [facility] [place] [facility] [address] [id number] [place] [address] Nov, [facility] [place] [facility] [address] [id number] [place] [address] Oct, [facility] [place] [facility] [address] [id number] [place] [address] Oct, [facility] [place] [facility] [address] [id number] [place] [address] Oct, [facility] [place] [facility] [address] [id number] [place] [address] Oct, [facility] [place] [facility] [address] [id number] [place] [address] Oct, [facility] [place] [facility] [address] [id number] [place] [address] Oct, [facility] [place] [facility] [address] [id number] [place] [address] Oct, [facility] [place] [facility] [address] [id number] [place] [address] Oct, [facility] [place] [facility] [address] [id number] [place] [address] Oct, [facility] [place] [facility] [address] [id number] [place] [address] Oct, [facility] [place] [facility] [address] [id number] [place] [address] Oct, [facility] [place] [facility] [address] [id number] [place] [address] Oct, [facility] [place] [facility] [address] [id number] [place] [address] September, [facility] [place] [facility] [address] [id number] [place] [address] September, [facility] [place] [facility] [address] [id number] [place] [address] September, [facility] [place] [facility] [address] [id number] [place] [address] Aug, [facility] [place] [facility] [address] [id number] [place] [address] Aug, [facility] [place] [facility] [address] [id number] [place] [address] Jul, [facility] [place] [facility] [address] [id number] [place] [address] 4[address] Jul, [facility] [place] [facility] [address] [id number] [place] [address] 6[address] Jul, [facility] [place] [facility] [address] [id number] [place] [address] 2444 Jul, [facility] [place] [facility] [address] [id number] [place] [address] 6430 08 Jul, 2013 [facility] [place] [facility] [address] [id number] [place] [address] 2190 Jul, [facility] [place] [facility] [address] [id number] [place] [address] 4788 Jul, [facility] [place] [facility] [address] [id number] [place] [address] 9793 Jul, [facility] [place] [facility] [address] [id number] [place] [address] 8217 Jul, [facility] [place] [facility] [address] [id number] [place] [address] 6[address] Jul, [facility] [place] [facility] [address] [id number] [place] [address] 2868 Jun, [facility] [place] [facility] [address] [id number] [place] [address]- 0180 Jun, [facility] [place] [facility] [address] [id number] [place] [address]- 8851 Jun, [facility] [place] [facility] [address] [id number] [place] [address]- 9591 Jun, [facility] [place] [facility] [address] [id number] [place] [address]- 5467 May, [facility] [place] [facility] [address] [id number] [place] [address]- 9031 May, [facility] [place] [facility] [address] [id number] [place] [address]- 6750 Apr, [facility] [place] [facility] [address] [id number] [place] [address]- 8541 Apr, [facility] [place] [facility] [address] [id number] [place] [address]- 3896 Apr, [facility] [place] [facility] [address] [id number] [place] [address]- 5489 Apr, [facility] [place] [facility] [address] [id number] [place] [address]- 0370 Apr, [facility] [place] [facility] [address] [id number] [address] 48[address] Apr, [facility] [place] [facility] [address] [id number] [place] [address]- 6542 Apr, [facility] [place] [facility] [address] [id number] [place] [address] Apr, [facility] [place] [facility] [address] [facility] [id number] [place] [address]- 5613 Mar, [facility] [place] [facility] [address] [id number] [place] [address]- 6778 Mar, [facility] [place] [facility] [address] [id number] [place] [address]- 2383 Mar, [facility] [place] [facility] [address] [id number] [place] [address]- 7694 Mar, [facility] [place] [facility] [address] [facility] [id number] [place] [address]- 0[address] Mar, [facility] [place] [facility] [address] [facility] [id number] [place] [address]- 0005 Mar, [facility] [place] [facility] [address] [facility] [id number] [place] [address] 6099 Feb, [facility] [place] [facility] [address] [facility] [id number] [place] [address]- 2485 30 Feb, 2013 [facility] [place] [facility] [address] [facility] [id number] [place] [address] 5[address] Feb, [facility] [place] [facility] [address] [facility] [id number] [place] [address] 67[address] 18 Feb, 2013 [facility] [place] [facility] [address] [id number] [place] [address] 2764 14 Feb, 2013 [facility] [place] [facility] [address] [facility] [id number] [place] [address]- 1287 14 Feb, 2013 [facility] [place] [facility] [address] [facility] [id number] [place] [address]- 5507 04 Feb, 2013 [facility] [place] [facility] [address] [id number] [place] [address]- 9442 27 Jan, 2013 [facility] [place] [facility] [address] [id number] [place] [address]- 7902 26 Jan, 2013 [facility] [place] [facility] [address] [id number] [place] [address]- 7638 Jan, [facility] [place] [facility] [address] [id number] [place] [address]- 0592 05 Jan, 2013 [facility] [place] [facility] [address] [id number] [place] [address]- 3842 Dec, [facility] [place] [facility] [address] [id number] [place] [address]- 9958 Dec, [facility] [place] [facility] [address] [id number] [place] [address]- 4369 Dec, [facility] [place] [facility] [address] [id number] [place] [address]- 8849 Nov, [facility] [place] [facility] [address] [id number] [place] [address]- 7847 Nov, [facility] [place] [facility] [address] [id number] [place] [address]- 9012 Nov, [facility] [place] [facility] [address] [id number] [place] [address]- 9412 Nov, [facility] [place] [facility] [address] [id number] [place] [address]- 1284 Nov, [facility] [place] [facility] [address] [id number] [place] [address]- 1733 Nov, [facility] [place] [facility] [address] [id number] [place] [address]- 7541 Oct, [facility] [place] [facility] [address] [id number] [place] [address]- 8382 Oct, [facility] [place] [facility] [address] [id number] [place] [address]- 5478 Oct, [facility] [address] [id number] [place] [address]- 4392 Oct, [facility] [place] [facility] [address] [id number] [place] [address]- 7284 Oct, [facility] [place] [facility] [address] [id number] [place] [address]- 1064 Oct, [facility] [place] [facility] [address] [id number] [place] [address]- 9464 September, [facility] [address] [id number] [place] [address]- 2871 September, [facility] [place] [facility] [address] [id number] [place] [address]- 7753 September, [facility] [place] [facility] [address] [id number] [place] [address]- 9224 September, [facility] [place] [facility] [address] [id number] [place] [address]- 3563 Aug, [facility] [place] [facility] [address] [id number] [place] [address]- 9031 Aug, [facility] [place] [facility] [address] [id number] [place] [address]- 1580 Jul, [facility] [place] [facility] [address] [id number] [place] [address]- 2744 Jul, [facility] [place] [facility] [address] [id number] [place] [address]- 6980 18 Jul, 2012 [facility] [place] [facility] [address] [id number] [place] [address]- 7796 15 Jul, 2012 [facility] [place] [facility] [address] [id number] [place] [address]- 6128 13 Jul, 2012 [facility] [place] [facility] [address] [id number] [place] [address]- 3680 08 Jul, 2012 [facility] [place] [facility] [address] [id number] [place] [address]- 7023 20 Jun, 2012 [facility] [address] [id number] [place] [address]- 5206 13 Jun, 2012 [facility] [address] [id number] [place] [address]- 1606 May, [facility] [address] [id number] [place] [address]- 0316 May, [facility] [address] [id number] [place] [address]- 0946 Apr, [facility] [address] [id number] [place] [address]- 3402 Apr, [facility] [address] [id number] [place] [address]- 5756 Apr, [facility] [address] [id number] [place] [address]- 2120 Apr, [facility] [address] [id number] [place] [address]- 1573 Apr, [facility] [address] [id number] [place] [address]- 0366 Apr, [facility] [address] [facility] [id number] [place] [address]- 1410 Apr, [facility] [address] [id number] [place] [address]- 7536 Apr, [facility] [address] [id number] [place] [address]- 6476 Apr, [facility] [place] [facility] [address] [id number] [place] [address]- 0226 Apr, [facility] [place] [facility] [address] [id number] [place] [address] Apr, [facility] [address] [id number] [place] [address]- 7292 Apr, [facility] [place] [facility] [address] [id number] [place] [address]- 1966 Apr, [facility] [place] [facility] [address] [id number] [place] [address]- 7843 Apr, [facility] [place] [facility] [address] [id number] [place] [address]- 9917 Apr, [facility] [place] [facility] [address] [id number] [place] [address]- 9868 Apr, [facility] [place] [facility] [address] [id number] [place] [address]- 0445 Mar, [facility] [place] [facility] [address] [id number] [place] [address]- 9287 Mar, [facility] [place] [facility] [address] [id number] [place] [address]- 5816 Mar, [facility] [place] [facility] [address] [id number] [place] [address]- 5285 Mar, [facility] [place] [facility] [address] [id number] [place] [address]- 4812 Mar, [facility] [place] [facility] [address] [id number] [place] [address]- 9080 Mar, [facility] [place] [facility] [address] [id number] [place] [address]- 5091 Mar, [facility] [place] [facility] [address] [id number] [place] [address]- 2564 Mar, [facility] [place] [facility] [address] [id number] [place] [address]- 6667 Mar, [facility] [place] [facility] [address] [id number] [place] [address]- 6497 Mar, [facility] [place] [facility] [address] [id number] [place] [address]- 1680 Feb, [facility] [place] [facility] [address] [id number] [place] [address]- 7629 Feb, [facility] [place] [facility] [address] [id number] [place] [address]- 5998 Feb, [facility] [place] [facility] [address] [id number] [place] [address]- 1164 Feb, [facility] [place] [facility] [address] [id number] [place] [address]- 4743 Feb, [facility] [place] [facility] [address] [id number] [place] [address]- 3376 Feb, [facility] [place] [facility] [address] [id number] [place] [address]- 1092 Jan, [facility] [place] [facility] [address] [id number] [place] [address]- 1862 Dec, [facility] [place] [facility] [address] [id number] [place] [address]- 5199 Dec, [facility] [place] [facility] [address] [id number] [place] [address]- 6409 Dec, [facility] [place] [facility] [address] [id number] [place] [address]- 9420 Dec, [facility] [place] [facility] [address] [id number] [place] [address]- 0131 Nov, [facility] [place] [facility] [address] [id number] [place] [address]- 2150 Nov, [facility] [place] [facility] [address] [id number] [place] [address]- 6478 Nov, [facility] [place] [facility] [address] [id number] [place] [address]- 2345 Nov, [facility] [place] [facility] [address] [id number] [place] [address]- 8207 Oct, [facility] [place] [facility] [address] [id number] [place] [address]- 3921 Oct, [facility] [place] [facility] [address] [id number] [place] [address]- 0784 Oct, [facility] [address] [id number] [place] [address]- 0935 Oct, [facility] [address] [id number] [place] [address]- 5142 Oct, [facility] [address] [id number] [place] [address]- 6791 September, [facility] [address] [id number] [place] [address]- 8169 September, [facility] [address] [id number] [place] [address]- 4070 September, [facility] [address] [id number] [place] [address]- 6534 September, [facility] [address] [id number] [place] [address]- 7008 September, [facility] [address] [id number] [place] [address]- 5774 September, [facility] [address] [id number] [place] [address]- 5365 September, [facility] [address] [id number] [place] [address]- 6004 September, [facility] [address] [id number] [place] [address]- 9086 Aug, [facility] [address] [id number] [place] [address]- 8600 Aug, [facility] [place] [facility] [address] [id number] [place] [address]- 9909 Aug, [facility] [address] [id number] [place] [address]- 2729 Aug, [facility] [address] [id number] [place] [address]- 9241 Aug, [facility] [place] [facility] [address] [id number] [place] [address]- 9845 17 Aug, 2011 [facility] [place] [facility] [address] [id number] [place] [address]- 3376 13 Aug, 2011 [facility] [place] [facility] [address] [id number] [place] [address]- 8006 12 Aug, 2011 [facility] [place] [facility] [address] [id number] [place] [address]- 6518 10 Aug, 2011 [facility] [place] [facility] [address] [id number] [place] [address]- 7805 09 Aug, 2011 [facility] [place] [facility] [address] [id number] [place] [address]- 5383 Aug, [facility] [place] [facility] [address] [id number] [place] [address]- 5595 Aug, [facility] [place] [facility] [address] [id number] [place] [address]- 8807 29 Jul, 2011 [facility] [place] [facility] [address] [id number] [place] [address]- 8588 28 Jul, 2011 [facility] [place] [facility] [address] [id number] [place] [address]- 3589 27 Jul, 2011 [facility] [place] [facility] [address] [id number] [place] [address]- 4931 23 Jul, 2011 [facility] [place] [facility] [address] [id number] [place] [address]- 3305 21 Jul, 2011 [facility] [place] [facility] [address] [id number] [place] [address]- 7706 21 Jul, 2011 [facility] [place] [facility] [address] [id number] [place] [address]- 8096 14 Jul, 2011 [facility] [place] [facility] [address] [id number] [place] [address]- 0420 13 Jul, 2011 [facility] [place] [facility] [address] [id number] [place] [address]- 1806 Jul, [facility] [address] [id number] [place] [address]- 3476 Jun, [facility] [place] [facility] [address] [id number] [place] [address]- 6846 Jun, [facility] [address] [id number] [place] [address]- 6956 Jun, [facility] [place] [facility] [address] [id number] [place] [address]- 3080 Jun, [facility] [address] [id number] [place] [address]- 7886 Jun, [facility] [address] [id number] [place] [address]- 2956 Jun, [facility] [address] [id number] [place] [address]- 3519 Jun, [facility] [address] [id number] [place] [address]- 3737 May, [facility] [address] [id number] [place] [address]- 8999 May, [facility] [address] [id number] [place] [address]- 0905 May, [facility] [address] [id number] [place] [address]- 7052 May, [facility] [address] [id number] [place] [address]- 6505 May, [facility] [place] [facility] [address] [id number] [place] [address]- 4133 May, [facility] [place] [facility] [address] [id number] [place] [address]- 4394 May, [facility] [address] [id number] [place] [address]- 4760 Apr, [facility] [place] [facility] [address] [id number] [place] [address]- 4745 Apr, [facility] [place] [facility] [address] [id number] [place] [address]- 5405 Apr, [facility] [place] [facility] [address] [id number] [place] 4557 Apr, [facility] [place] [facility] [address] [id number] [place] [address]- 0877 Apr, [facility] [place] [facility] [address] [id number] [place] [address]- 0127 Apr, [facility] [place] [facility] [address] [id number] [place] [address]- 1965 Apr, [facility] [place] [facility] [address] [id number] [place] [address]- 5227 Apr, [facility] [place] [facility] [address] [id number] [place] [address]- 8437 Apr, [facility] [place] [facility] [address] [id number] [place] [address]- 1357 Mar, [facility] [place] [facility] [address] [id number] [place] [address]- 8426 Mar, [facility] [place] [facility] [address] [id number] [place] [address]- 6728 Mar, [facility] [place] [facility] [address] [id number] [place] [address]- 4910 Mar, [facility] [place] [facility] [address] [id number] [place] [address]- 9608 Mar, [facility] [place] [facility] [address] [id number] [place] [address]- 5657 Feb, [facility] [place] [facility] [address] [id number] [place] [address]- 9750 Feb, [facility] [place] [facility] [address] [id number] [place] [address]- 4880 17 Feb, 2011 [facility] [address] [id number] [place] [address]- 8296 Dec, [facility] [place] [facility] [address] [id number] [place] [address]- 6076 Nov, [facility] [address] [facility] [id number] [place] [address]- 2496 Apr, [facility] [place] [facility] [address] [id number] [place] [address]- 1366 20 Apr, 2010 [facility] [address] [id number] [place] [address], [place] [address]- 0336 16 Apr, 2010 [facility] [place] [facility] [address] [id number] [place] [address]- 9566 Apr, [facility] [address] [facility] [id number] [place] [address]- 6663 Apr, [facility] [address] [id number] [place] [address]- 5705 Apr, [facility] [address] [facility] [id number] [place] [address]- 5496 Apr, [facility] [place] [facility] [address] [facility] [id number] [place] [address] Apr, [facility] [address] [id number] [place] [address] Mar, [facility] [place] [facility] [address] [id number] [place] [address] Mar, [facility] [place] [facility] [address] [id number] [place] [address] Mar, [facility] [place] [facility] [address] [facility] [id number] [place] [address] Mar, [facility] [place] [facility] [address] [facility] [id number] [place] [address] Mar, [facility] [place] [facility] [address] [facility] [id number] [place] [address] Mar, [facility] [address] [facility] [id number] [place] [address] Mar, [facility] [address] [facility] [id number] [place] [address] Mar, [facility] [address] [facility] [id number] [place] [address] Mar, [facility] [address] [facility] [id number] [place] [address] Mar, IMMUNIZATIONS No Known Immunizations SOCIAL HISTORY Never Assessed REASON FOR VISIT medication change PLAN OF CARE VITAL SIGNS MEDICATIONS Medication Instructions Dosage Frequency Start Date End Date Duration Status Levemir FlexTouch 100 UNIT/ML subcutaneously 2 times a day Inject 35 units 12h 23 Feb, 2018 30 days Active RESULTS No Results PROCEDURES No [...] Dopplers Mild Plaque 01/2018 Hospitalization History Hyperglycemia, Hypoxia--[facility] 01/21/16 Hospitalization History surgeries Hospitalization History UTI 02/2017 Hospitalization History HTN, TIA like symptoms 08/[address] [facility]- CVA 10/05/[address] [facility]- Inpatient rehab where patient Coded then transfered to ICU 10/15/[address] [facility]- GI Bleed 11/09/2017
--- OUTSIDE RECORDS SUMMARY | 2018-04-22 22:51 | XMS REPORT ---
Author Author CARLOS LARA [facility] Address [address] [place] [address] Care Team Providers Care Bender Machine Name Role Phone CARLOS LARA Unavailable PROBLEMS Type Condition ICD9-CM Code KYM38-KG Code Onset Dates Condition Status SNOMED Code Problem Severe sleep apnea G47.30 Active 52947051 Problem Iron deficiency anemia, unspecified iron deficiency anemia type D50.9 Active 89008970 Problem Stenosis of carotid artery, unspecified laterality I65.29 Active 07615116 Problem Decreased diffusion capacity R94.2 Active 54386859 Problem Coronary artery disease involving on[place] coronary artery of on[place] heart, angina presence unspecified I25.10 Active 6500475372065 Problem Generalized osteoarthritis M15.9 Active 460490591 Problem Aortic valve sclerosis I35.8 Active 00773881 Problem Essential hypertension I10 Active 16993830 Problem Renal osteodystrophy N25.0 Active 89526171 Problem Anxiety about health F41.8 Active 163406055 Problem 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 Active 8115834 Problem Type 2 diabetes mellitus with unspecified complications E11.8 Active 18397656 Problem Type 2 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 Active 04107067 Problem Chronic kidney disease, unspecified CKD stage N18.9 Active 638908528 Problem Pain R52 Active 86980253 Problem assisted 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.4 Active 087958920 Problem Acute anxiety F41.9 Active 45950245 Problem Inability to bear weight R26.89 Active 268233779 Problem Type 2 diabetes mellitus with diabetic polyneuropathy E11.42 Active 356273017 Problem Type 2 diabetes mellitus with foot ulcer E11.621 Active 215014685 Problem Type 2 diabetes mellitus with hyperglycemia E11.65 Active 71254687 Problem Slow transit constipation K59.01 Active 04687054 Problem Bladder spasms N32.89 Active 734309297 Problem Chronic kidney disease (CKD), stage 4 (severe) N18.4 Active 528931657 Problem Other chronic pain G89.29 Active 31613122 Problem Diarrhea, unspecified type R19.7 Active 89560066 Problem Mixed hyperlipidemia E78.2 Active 122662238 Problem Trochanteric bursitis of left hip M70.62 Active 299994627766796 Problem Anemia in other chronic diseases classified elsewhere D63.8 Active 701088154 Problem Chronic kidney disease, stage 3 (moderate) N18.3 Active 356713577 Problem Port catheter in place Z95.828 Active 854002283 Problem Transient cerebral ischemia, unspecified type G45.9 Active 405684803 Problem Hypoxemia R09.02 Active 301645486 Problem BMI 50.0-59.9, adult Z68.43 Active 017949512 ALLERGIES No Information ENCOUNTERS Encounter Location Date Diagnosis [place] [address] [address] 05 Feb, 2018 [place] [address] [address] Feb, Type 2 diabetes mellitus with diabetic polyneuropathy E11.42 and Chronic kidney disease (CKD), stage 4 (severe) N18.4 [place] [address] [address]- [address] 17 Jan, 2018 [place] [address] [address]- [address] 14 Jan, 2018 Acute anxiety F41.9 [place] [address] 53721- 0673 04 Jan, 2018 Inability to bear weight R26.89 [facility] [address] [place], [place] [id number] Dec, Low back pain M54.5 ; Other chronic pain G89.29 and Chronic kidney disease (CKD), stage 4 (severe) N18.4 [place] [address] [address]- 09[address] Dec, Type 2 diabetes mellitus with hyperglycemia E11.65 [place] [address] [address]64- 7969 Dec, [facility] [address] [place] [id number] Dec, Type 2 diabetes mellitus with hyperglycemia E11.65 ; Essential hypertension I10 ; Generalized osteoarthritis M15.9 ; Mixed hyperlipidemia E78.2 ; Hypoxia R09.02 ; Port catheter in place Z95.828 ; Anemia due to acute blood loss D62 ; Chronic kidney disease, unspecified CKD stage N18.9 and Severe sleep apnea G47.30 [place] [address] 43794- 8669 Dec, Type 2 diabetes mellitus with hyperglycemia E11.65 [place] [address] 75638- 1583 Dec, [place] [address] 68[address]- 5235 Dec, Type 2 diabetes mellitus with hyperglycemia E11.65 [place] [address] 58822- 1581 Dec, Left leg pain M79.605 [place] [address] [place] [id number] [place] [address] 65992- 1896 Nov, Slow transit constipation K59.01 [place] [address] [place] [id number] [place] [address] 13614- 0514 Nov, [employer] [facility] [address] [place] [id number] Nov, Anemia due to acute blood loss D62 [place] [address] [place] [id number] [place] [address] 10463- 5737 Nov, [place] [address] [place] [id number] [place] [address] 85336- 3365 Nov, Bladder spasms N32.89 [place] [address] [place] [id number] [place] [address] 76757- 2088 Nov, Pain R52 [facility] [address] [place] [id number] Nov, Anemia due to acute blood loss D62 [place] [address], [place] [address] Nov, Pain in right hip M25.551 and Pain in left hip M25.552 [facility] [address] [address] Nov, [facility] [address], [place] [address] 7414 Nov, [facility] [address] [place] [address] 28830- 1228 Nov, [facility] [address], [place] [address] 1167 Nov, [facility] [address] [place] [address] 50910- 2378 Oct, [facility] [address] [place] [address] 71569- 1582 Oct, [facility] [address] [place] [id number] Oct, Encounter for examination for admission to detention Z02.2 ; Chronic kidney disease, unspecified CKD stage N18.9 ; Type 2 diabetes mellitus with unspecified complications E11.8 ; assisted 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.4 ; Essential hypertension I10 ; Hypoxia R09.02 ; Severe sleep apnea G47.30 ; Stenosis of carotid artery, unspecified laterality I65.29 ; Generalized osteoarthritis M15.9 ; Coronary artery disease involving [place] coronary artery of on[place] heart, angina presence unspecified I25.10 ; Port catheter in place Z95.828 and Hemorrhoids, unspecified hemorrhoid type K64.9 [facility] [address] [place] [id number] [address] Oct, [facility] [address], [place] [address] 5468 Oct, [facility] [address] [place] [address] [id number] [address] 3777 Oct, [facility] [address] [place] [address] 07208- 8993 Oct, [facility] [address] [place] [id number] [place] [address] 96737 -5856 September, BMI 50.0-59.9, adult Z68.43 [facility] [address] [place] [id number] [place] [address] 95531- 5523 September, [facility] [address] 22120- 7785 September, [facility] [address] [place] [id number] [place] [address] 33309- 3317 Aug, Type 2 diabetes mellitus with foot ulcer E11.621 ; Transient cerebral ischemia, unspecified type G45.9 ; Essential hypertension I10 ; Mixed hyperlipidemia E78.2 and BMI 50.0-59.9, adult Z68.43 [place] [address] 62521- 4323 Aug, [facility] [address] [place] [id number] [place] [address] 29215- 5487 Jul, Anxiety about health F41.8 and Mixed hyperlipidemia E78.2 [place] [address] 63955- 2638 13 Jul, 2017 [facility] [address] [place] [address] [place] [address] 70772- 9165 Jun, [facility] [address] [place] [id number] [place] [address] 17534- 7966 Jun, Type 2 diabetes mellitus with hyperglycemia E11.65 ; Type 2 diabetes mellitus with foot ulcer E11.621 ; Port catheter in place Z95.828 ; 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 ; Contact with and (suspected) exposure to potentially hazardous body fluids Z77.21 and BMI 50.0-59.9, adult Z68.43 [facility] [address] [place] [id number] [place] [address] 69128- 6502 May, [place] [address], [place] [address] May, Open wound of right great toe, subsequent encounter S91.101D [facility] [address] [place] [address], [place] [address] 2843 May, [facility] [address], [place] [address]- 1216 Apr, [facility] [address] [place] [id number] [place] [address] 38912- 8435 Apr, [facility] [address] [place] [id number] [place] [address] 34884- 3059 Apr, [place] [address] [place] [id number] [place] [address] 99460- 7217 Apr, Type 2 diabetes mellitus with diabetic polyneuropathy E11.42 [place] [address] [place] [address] [place] [address] 25872- 5520 Apr, Open wound of right great toe, subsequent encounter S91.101D [place] [address], [place] [address] 0369 Apr, Open wound of right great toe, subsequent encounter S91.101D ; Breast pain, left N64.4 ; Breast cancer screening Z12.31 ; Type 2 diabetes mellitus with foot ulcer E11.621 ; Essential hypertension I10 and BMI 50.0-59.9, adult Z68.43 [place] [address], [place] [address] 5[address] Mar, Encounter for immunization Z23 [facility] [address], [place] [address] 1355 Mar, [place] [address] [place] [id number] [place] [address] 25861- 7687 Mar, [facility] [address], [place] [address]- 1408 Mar, Type 2 diabetes mellitus with diabetic polyneuropathy E11.42 ; Type 2 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 ; Type 2 diabetes mellitus with foot ulcer E11.621 ; Essential hypertension I10 ; Hypoxemia R09.02 and Generalized osteoarthritis M15.9 [facility] [address] [place] [address] [place] [address] 91123- 5200 Mar, 2017 Chronic kidney disease, stage 3 (moderate) N18.3 ; Acute cystitis without hematuria N30.00 ; Essential hypertension I10 ; Muscle spasms of neck M62.838 ; Type 2 diabetes mellitus with diabetic polyneuropathy E11.42 and BMI 50.0-59.9, adult Z68.43 [facility] [address] [place] [id number] [place] [address] 02311- 4425 Feb, [facility] [address] 40510 -8394 Feb, [facility] [address] 85990- 7680 Feb, [facility] [address] 51669- 9919 Feb, [facility] [address] 89043- 8913 Feb, [facility] [address] [place] [id number] [place] [address] 54096- 0214 Feb, [facility] [address] [place] [id number] [place] [address] 60243- 7477 Feb, Mixed hyperlipidemia E78.2 [facility] [address] [place] [id number] [place] [address] 72613- 3685 Feb, [facility] [address] [place] [id number] [place] [address] 59477- 1852 Jan, [facility] [address] [place] [id number] [place] [address] 60832- 8405 Jan, Generalized osteoarthritis M15.9 [facility] [address] [place] [id number] [place] [address] 63939- 8509 Oct, [place] [address] [place] [id number] [place] [address] 05205- 5394 Jul, [place] [address] [place] [id number] [place] [address] 14706- 7777 Jul, [place] [address] [place] [address] [place] [address] 76825- 8264 Jul, Type 2 diabetes mellitus with hyperglycemia E11.65 ; Chronic kidney disease, stage 3 (moderate) N18.3 ; Type 2 diabetes mellitus with foot ulcer E11.621 ; Type 2 diabetes mellitus with diabetic polyneuropathy E11.42 ; Generalized osteoarthritis M15.9 ; Trochanteric bursitis of left hip M70.62 and Tinea pedis of both feet B35.3 [place] [address] [place] [address] [place] [address] 84063- 5931 Jun, [place] [address] 82449- 5891 Apr, [place] [address] [place] [id number] [place] [address] 44317- 2239 Apr, [place] [address] [place] [id number] [place] [address] 16458- 8319 Mar, [place] [address] [place] [id number] [place] [address] 50110- 5781 Feb, Encounter for immunization Z23 [place] [id number] [place] [address] 38496- 8828 Feb, [place] [address] [place] [id number] [place] [address] 95792- 0329 Feb, Type 2 diabetes mellitus with hyperglycemia E11.65 ; Encounter for immunization Z23 ; Diarrhea, unspecified type R19.7 ; Essential hypertension I10 ; Mixed hyperlipidemia E78.2 ; Hypoxia R09.02 ; 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 and Type 2 diabetes mellitus with foot ulcer E11.621 [place] [address] [place] [address] [place] [address] 51271- 3042 Jan, [facility] [address], [place] [address]- 7811 Jan, Type 2 diabetes mellitus with hyperglycemia E11.65 and Pneumonia due to infectious organism, unspecified laterality, unspecified part of lung J18.9 [facility] [address], [place] [address]- 3424 Jan, [facility] [address] [place] [id number] [place] [address] 92236- 5670 Jan, [facility] [address] [place] [address] [place] [address] 81995- 5685 Oct, Type 2 diabetes mellitus with hyperglycemia E11.65 ; Generalized osteoarthritis M15.9 and Chronic prescription opiate use Z79.891 [facility] [address] [place] [address] [address]- 3195 September, [facility] [address] [place] [id number] [place] [address] 02755- 9050 Aug, [facility] [address] [place] [address] 82182- 5153 Aug, [facility] [address] [place] [id number] [place] [address] 25022- 2997 Aug, [facility] [address], [place] [address]- 5726 Aug, [facility] [address] [place] [id number] [place] [address] 27884- 4009 Jun, [facility] [address], [place] [address]- 1565 Jun, Type 2 diabetes mellitus with hyperglycemia E11.65 ; Mixed hyperlipidemia E78.2 ; Vaginal itching L29.8 ; Neck muscle spasm M62.838 and Skin abrasion T14.8 [facility] [address], [place] [address]- 7976 Apr, [facility] [address] [place] [id number] [place] [address] 77611- 1477 Apr, [place] [address] [place] [id number] [place] [address] 20335- 7273 Mar, [facility] [address] [place] [id number] [place] [address] 12309- 9492 Feb, [place] [address] 11916- 2344 Feb, Type 2 diabetes mellitus with hyperglycemia E11.65 ; Type 2 diabetes mellitus with foot ulcer E11.621 ; Type 2 diabetes mellitus with diabetic polyneuropathy E11.42 and Encounter for immunization Z23 [place] [address] 20909- 2455 Jan, Hypertension 401.9 ; Uncontrolled type 2 diabetes mellitus 250.02 ; Right shoulder pain 719.41 and Ulcer of heel and midfoot 707.14 [place] [address] [place] [address] [place] [address] 25507- 7795 Dec, Diabetes with other specified manifestations, type II or unspecified type, not stated as uncontrolled 250.80 ; Ulcer of heel and midfoot 707.14 ; Hypertension 401.9 ; Hip pain, left 719.45 and Acute anxiety 300.00 [place] [address] [place] [id number] [place] [address] 32570- 1763 Nov, [place] [address] [place] [id number] [place] [address] 35514- 4100 Nov, [place] [address] [place] [id number] [place] [address] 00052- 4268 September, Anxiety attack 300.01 and Cellulitis 682.9 [place] [address] [place] [id number] [place] [address] 33067- 4605 September, [place] [address] [place] [id number] [place] [address] 21254- 0168 September, [place] [address] [place] [id number] [place] [address] 16196- 2190 September, [facility] [place] [facility] [address] [id number] [place] [address]- 8587 14 Aug, 2014 [facility] [place] [facility] [address] [id number] [place] [address]- 2740 13 Aug, 2014 [facility] [place] [facility] [address] [id number] [place] [address]- 4858 13 Jul, 2014 [facility] [place] [facility] [address] [id number] [place] [address]- 5277 13 Jul, 2014 [facility] [place] [facility] [address] [id number] [place] [address]- 3061 05 Jul, 2014 [facility] [place] [facility] [address] [id number] [place] [address]- 4804 13 May, 2014 [facility] [place] [facility] [address] [facility] [id number] [place] [address]- 8229 May, [facility] [place] [facility] [address] [id number] [place] [address]- 2449 Mar, [facility] [place] [facility] [address] [facility] [id number] [place] [address]- 0165 Mar, [facility] [place] [facility] [address] [facility] [id number] [place] [address]- 2613 Mar, [facility] [place] [facility] [address] [id number], [place] [address]- 5667 Mar, [facility] [place] [facility] [address] [id number], [place] [address]- 8972 Mar, [facility] [place] [facility] [address] [id number] [place] [address]- 9128 Mar, [facility] [place] [facility] [address] [facility] [id number] [place] [address]- 1894 Mar, [facility] [place] [facility] [address] [facility] [id number] [place] [address]- 2018 14 Feb, 2014 [facility] [place] [facility] [address] [id number] [place] [address]- 9495 14 Feb, 2013 [facility] [place] [facility] [address] [id number] [place] [address] 2546 30 Sep, 2013 [facility] [place] [facility] [address] [id number] [place] [address] 2546 30 Sep, 2013 [facility] [place] [facility] [address] [id number] [place] [address] 2546 26 Sep, 2013 [facility] [place] [facility] [address] [id number] [place] [address] 254 26 Sep, 2013 [facility] [place] [facility] [address] [id number] [place] [address]- 9067 25 Sep, 2013 [facility] [place] [facility] [address] [id number] [place] [address]- 9835 25 Sep, 2013 [facility] [place] [facility] [address] [id number] [place] [address]- 2541 25 Sep, 2013 [facility] [place] [facility] [address] [id number] [place] [address] 2549 25 Sep, 2013 [facility] [place] [facility] [address] [id number] [place] [address] 2540 18 Sep, 2013 [facility] [place] [facility] [address] [id number] [place] [address] 2542 18 Sep, 2013 [facility] [place] [facility] [address] [id number] [place] [address]- 2549 06 Sep, 2013 [facility] [place] [facility] [address] [id number] [place] [address] 2546 06 Sep, 2013 [facility] [place] [facility] [address] [id number] [place] [address] 2546 05 Sep, 2013 [facility] [place] [facility] [address] [id number] [place] [address] 2546 05 Sep, 2013 [facility] [place] [facility] [address] [id number] [place] [address]- 7441 05 Sep, 2013 [facility] [place] [facility] [address] [id number] [place] [address]- 0809 Jan, 2013 [facility] [place] [facility] [address] [id number] [place] [address]- 4664 Jan, 2013 [facility] [place] [facility] [address] [id number] [place] [address]- 8833 Jan, 2013 [facility] [place] [facility] [address] [id number] [place] [address]- 5623 Dec, [facility] [place] [facility] [address] [id number] [place] [address]- 2389 Dec, [facility] [place] [facility] [address] [id number] [place] [address]- 5470 Dec, [facility] [place] [facility] [address] [id number] [place] [address]- 9681 Dec, [facility] [place] [facility] [address] [id number] [place] [address]- 8324 Dec, [facility] [place] [facility] [address] [id number] [place] [address]- 4965 Dec, [facility] [place] [facility] [address] [id number] [place] [address]- 7800 Dec, [facility] [place] [facility] [address] [id number] [place] [address]- 7418 Dec, [facility] [place] [facility] [address] [id number] [place] [address]- 3607 Dec, [facility] [place] [facility] [address] [id number] [place] [address]- 7800 Dec, [facility] [place] [facility] [address] [id number] [place] [address]- 3270 Nov, [facility] [place] [facility] [address] [id number] [place] [address]- 4917 Nov, [facility] [place] [facility] [address] [id number] [place] [address]- 1848 14 Nov, 2013 [facility] [place] [facility] [address] [id number] [place] [address]- 6846 14 Nov, 2013 [facility] [place] [facility] [address] [id number] [place] [address]- 8416 Nov, [facility] [place] [facility] [address] [id number] [place] [address]- 5380 Nov, [facility] [place] [facility] [address] [id number] [place] [address]- 0953 Oct, [facility] [place] [facility] [address] [id number] [place] [address]- 6292 Oct, [facility] [place] [facility] [address] [id number] [place] [address]- 0516 Oct, [facility] [place] [facility] [address] [id number] [place] [address]- 6040 Oct, [facility] [place] [facility] [address] [id number] [place] [address]- 4831 Oct, [facility] [place] [facility] [address] [id number] [place] [address]- 9298 Oct, [facility] [place] [facility] [address] [id number] [place] [address] Oct, [facility] [place] [facility] [address] [id number] [place] [address] Oct, [facility] [place] [facility] [address] [id number] [place] [address] Oct, [facility] [place] [facility] [address] [id number] [place] [address] Oct, [facility] [place] [facility] [address] [id number] [place] [address] Oct, [facility] [place] [facility] [address] [id number] [place] [address] Oct, [facility] [place] [facility] [address] [id number] [place] [address] September, [facility] [place] [facility] [address] [id number] [place] [address] September, [facility] [place] [facility] [address] [id number] [place] [address] September, [facility] [place] [facility] [address] [id number] [place] [address] Aug, [facility] [place] [facility] [address] [id number] [place] [address] Aug, [facility] [place] [facility] [address] [id number] [place] [address] Jul, [facility] [place] [facility] [address] [id number] [place] [address] Jul, [facility] [place] [facility] [address] [id number] [place] [address] Jul, [facility] [place] [facility] [address] [id number] [place] [address] Jul, [facility] [place] [facility] [address] [id number] [place] [address] Jul, [facility] [place] [facility] [address] [id number] [place] [address] Jul, [facility] [place] [facility] [address] [id number] [place] [address] Jul, [facility] [place] [facility] [address] [id number] [place] [address] Jul, [facility] [place] [facility] [address] [id number] [place] [address] Jul, [facility] [place] [facility] [address] [id number] [place] [address] Jul, [facility] [place] [facility] [address] [id number] [place] [address] 488[address] Jun, [facility] [address] [id number] [place] [address] 4127 Jun, [facility] [place] [facility] [address] [id number] [place] [address] 0696 Jun, [facility] [address] [id number] [place] [address] Jun, [facility] [address] [id number] [place] [address] 0737 May, [facility] [address] [id number] [place] [address] 6665 May, [facility] [address] [id number] [place] [address]- 1481 Apr, [facility] [address] [facility] [id number] [place] [address] 4164 Apr, [facility] [address] [id number] [place] [address] 8584 Apr, [facility] [address] [facility] [id number] [place] [address] 45[address] Apr, [facility] [address] [facility] [id number] [place] [address]- 6646 Apr, [facility] [address] [facility] [id number] [place] [address]- 7082 Apr, [facility] [place] [facility] [address] [id number] [place] [address]- 2545 Apr, [facility] [place] [facility] [address] [id number] [place] [address] Apr, [facility] [place] [facility] [address] [facility] [id number] [place] [address]- 2111 Mar, [facility] [place] [facility] [address] [facility] [id number] [place] [address] Mar, [facility] [place] [facility] [address] [id number] [place] [address]- 9714 18 Mar, 2013 [facility] [place] [facility] [address] [id number] [place] [address] 9936 18 Mar, 2013 [facility] [place] [facility] [address] [id number] [place] [address]- 2548 Mar, [facility] [place] [facility] [address] [id number] [place] [address]- 1502 08 Mar, 2013 [facility] [place] [facility] [address] [id number] [place] [address]- 5044 30 Feb, 2013 [facility] [place] [facility] [address] [id number] [place] [address]- 1267 30 Feb, 2013 [facility] [place] [facility] [address] [id number] [place] [address]- 3486 Feb, [facility] [place] [facility] [address] [id number] [place] [address]- 5403 Feb, [facility] [place] [facility] [address] [id number] [place] [address]- 1011 14 Feb, 2013 [facility] [place] [facility] [address] [id number] [place] [address]- 3380 14 Feb, 2013 [facility] [place] [facility] [address] [id number] [place] [address] 04 Feb, 2013 [facility] [place] [facility] [address] [id number] [place] [address]- 7914 27 Jan, 2013 [facility] [place] [facility] [address] [id number] [place] [address]- 4422 26 Jan, 2013 [facility] [place] [facility] [address] [id number] [place] [address]- 7895 19 Jan, 2013 [facility] [place] [facility] [address] [id number] [place] [address]- 2546 05 Jan, 2013 [facility] [place] [facility] [address] [id number] [place] [address]- 2554 Dec, [facility] [place] [facility] [address] [id number] [place] [address]- 8448 Dec, [facility] [place] [facility] [address] [id number] [place] [address]- 9892 Dec, [facility] [place] [facility] [address] [id number] [place] [address]- 3948 Nov, [facility] [place] [facility] [address] [id number] [place] [address]- 0136 Nov, [facility] [place] [facility] [address] [id number] [place] [address]- 5879 Nov, [facility] [place] [facility] [address] [id number] [place] [address]- 1240 Nov, [facility] [place] [facility] [address] [id number] [place] [address]- 4959 Nov, [facility] [place] [facility] [address] [id number] [place] [address]- 5335 Nov, [facility] [place] [facility] [address] [id number] [place] [address]- 3360 Oct, [facility] [place] [facility] [address] [id number] [place] [address]- 6142 Oct, [facility] [place] [facility] [address] [id number] [place] [address]- 3702 Oct, [facility] [place] [facility] [address] [id number] [place] [address]- 6304 Oct, [facility] [place] [facility] [address] [id number] [place] [address]- 6761 Oct, [facility] [place] [facility] [address] [id number] [place] [address]- 0901 Oct, [facility] [place] [facility] [address] [id number] [place] [address]- 1598 September, [facility] [place] [facility] [address] [id number] [place] [address]- 3286 September, [facility] [address] [id number] [place] [address] 8730 September, [facility] [address] [id number] [place] [address]- 0476 September, [facility] [address] [id number] [place] [address]- 6796 Aug, [facility] [address] [id number] [place] [address] 2546 Aug, [facility] [address] [id number] [place] [address]- 6431 Jul, [facility] [address] [id number] [place] [address]- 0216 Jul, [facility] [address] [id number] [place] [address]- 2316 Jul, [facility] [address] [id number] [place] [address]- 5616 Jul, [facility] [address] [id number] [place] [address]- 1694 Jul, [facility] [address] [id number] [place] [address]- 0859 Jul, [facility] [address] [id number] [place] [address]- 8945 Jun, [facility] [address] [id number] [place] [address]- 2546 Jun, [facility] [place] [facility] [address] [id number] [place] [address]- 6846 May, [facility] [place] [facility] [address] [id number] [place] [address]- 2546 May, [facility] [address] [id number] [place] [address]- 0428 Apr, [facility] [place] [facility] [address] [id number] [place] [address]- 4505 18 Apr, 2012 [facility] [place] [facility] [address] [id number] [place] [address]- 0766 13 Apr, 2012 [facility] [place] [facility] [address] [id number] [place] [address]- 5206 13 Apr, 2012 [facility] [place] [facility] [address] [id number] [place] [address]- 9926 10 Apr, 2012 [facility] [address] [id number] [place] [address]- 6608 10 Apr, 2012 [facility] [place] [facility] [address] [id number] [place] [address]- 1464 Apr, [facility] [address] [id number] [place] [address]- 1850 Apr, [facility] [address] [id number] [place] [address]- 0269 Apr, [facility] [address] [id number] [place] [address]- 4704 Apr, [facility] [place] [facility] [address] [id number] [place] [address]- 7542 Apr, [facility] [place] [facility] [address] [id number] [place] [address]- 6169 Apr, [facility] [place] [facility] [address] [id number] [place] [address]- 3017 Apr, [facility] [place] [facility] [address] [id number] [place] [address]- 8804 Apr, [facility] [place] [facility] [address] [id number] [place] [address]- 8002 Apr, [facility] [place] [facility] [address] [id number] [place] [address]- 9831 Apr, [facility] [place] [facility] [address] [id number], [place] [address]- 8966 Mar, [facility] [place] [facility] [address] [id number] [place] [address]- 5011 Mar, [facility] [place] [facility] [address] [id number] [place] [address]- 4121 Mar, [facility] [place] [facility] [address] [id number] [place] [address]- 7865 Mar, [facility] [place] [facility] [address] [id number] [place] [address]- 0578 Mar, [facility] [place] [facility] [address] [id number] [place] [address]- 8657 Mar, [facility] [place] [facility] [address] [id number] [place] [address]- 3839 Mar, [facility] [place] [facility] [address] [id number], [place] [address]- 4476 Mar, [facility] [place] [facility] [address] [id number], [place] [address]- 2119 Mar, [facility] [place] [facility] [address] [id number], [place] [address]- 1336 Mar, [facility] [place] [facility] [address] [id number], [place] [address]- 6288 Feb, [facility] [place] [facility] [address] [id number], [place] [address]- 7343 Feb, [facility] [place] [facility] [address] [id number], [place] [address]- 8983 Feb, [facility] [place] [facility] [address] [id number], [place] [address]- 1169 Feb, [facility] [place] [facility] [address] [id number], [place] [address]- 1307 Feb, [facility] [place] [facility] [address] [id number], [place] [address]- 8663 Feb, [facility] [place] [facility] [address] [id number] [place] [address]- 0450 07 Jan, 2012 [facility] [address] [id number] [place] [address]- 1575 Dec, [facility] [place] [facility] [address] [id number] [place] [address]- 8406 Dec, [facility] [address] [id number] [place] [address]- 7416 Dec, [facility] [place] [facility] [address] [id number] [place] [address]- 1203 Dec, [facility] [address] [id number] [place] [address]- 1896 Nov, [facility] [place] [facility] [address] [id number] [place] [address]- 3614 Nov, [facility] [address] [id number] [place] [address]- 9188 Nov, [facility] [address] [id number] [place] [address]- 9858 Nov, [facility] [place] [facility] [address] [id number] [place] [address]- 8065 Oct, [facility] [address] [id number] [place] [address]- 6011 Oct, [facility] [place] [facility] [address] [id number] [place] [address]- 9543 Oct, [facility] [place] [facility] [address] [id number] [place] [address]- 1373 Oct, [facility] [place] [facility] [address] [id number] [place] [address]- 5942 Oct, [facility] [place] [facility] [address] [id number] [place] [address]- 7968 September, [facility] [place] [facility] [address] [id number] [place] [address]- 7490 September, [facility] [address] [id number] [place] [address]- 0046 September, [facility] [place] [facility] [address] [id number] [place] [address]- 7154 September, [facility] [place] [facility] [address] [id number] [place] [address]- 3921 September, [facility] [place] [facility] [address] [id number] [place] [address]- 5914 September, [facility] [address] [id number] [place] [address]- 2639 September, [facility] [place] [facility] [address] [id number] [place] [address]- 5512 September, [facility] [place] [facility] [address] [id number] [place] [address]- 3938 Aug, [facility] [place] [facility] [address] [id number] [place] [address]- 3495 Aug, [facility] [place] [facility] [address] [id number] [place] [address]- 3655 Aug, [facility] [place] [facility] [address] [id number] [place] [address]- 2298 Aug, [facility] [place] [facility] [address] [id number] [place] [address]- 0314 18 Aug, 2011 [facility] [place] [facility] [address] [id number] [place] [address]- 5702 17 Aug, 2011 [facility] [place] [facility] [address] [id number] [place] [address]- 9472 13 Aug, 2011 [facility] [place] [facility] [address] [id number] [place] [address]- 5885 12 Aug, 2011 [facility] [place] [facility] [address] [id number] [place] [address]- 2071 10 Aug, 2011 [facility] [place] [facility] [address] [id number] [place] [address]- 0447 09 Aug, 2011 [facility] [address] [id number] [place] [address]- 2584 Aug, [facility] [place] [facility] [address] [id number] [place] [address]- 3294 02 Aug, 2011 [facility] [place] [facility] [address] [id number] [place] [address]- 2254 29 Jul, 2011 [facility] [place] [facility] [address] [id number] [place] [address]- 3417 28 Jul, 2011 [facility] [place] [facility] [address] [id number] [place] [address]- 4924 27 Jul, 2011 [facility] [place] [facility] [address] [id number] [place] [address]- 6679 23 Jul, 2011 [facility] [address] [id number] [place] [address]- 7920 Jul, [facility] [place] [facility] [address] [id number] [place] [address]- 9204 Jul, [facility] [place] [facility] [address] [id number] [place] [address]- 8443 14 Jul, 2011 [facility] [place] [facility] [address] [id number] [place] [address]- 2286 13 Jul, 2011 [facility] [place] [facility] [address] [id number] [place] [address]- 4634 07 Jul, 2011 [facility] [place] [facility] [address] [id number] [place] [address]- 1390 24 Jun, 2011 [facility] [place] [facility] [address] [id number] [place] [address]- 8591 23 Jun, 2011 [facility] [place] [facility] [address] [id number] [place] [address]- 1823 23 Jun, 2011 [facility] [place] [facility] [address] [id number] [place] [address]- 6161 14 Jun, 2011 [facility] [place] [facility] [address] [id number] [place] [address]- 6887 Jun, [facility] [place] [facility] [address] [id number] [place] [address]- 7926 Jun, [facility] [place] [facility] [address] [id number] [place] [address]- 9967 Jun, [facility] [place] [facility] [address] [id number] [place] [address]- 5531 May, [facility] [place] [facility] [address] [id number] [place] [address]- 3137 May, [facility] [place] [facility] [address] [id number] [place] [address]- 4869 May, [facility] [place] [facility] [address] [id number] [place] [address]- 6061 May, [facility] [place] [facility] [address] [id number] [place] [address]- 2867 May, [facility] [place] [facility] [address] [id number] [place] [address]- 8824 May, [facility] [place] [facility] [address] [id number], [place] [address]- 5142 May, [facility] [place] [facility] [address] [id number], [place] [address]- 5247 Apr, [facility] [place] [facility] [address] [id number], [place] [address]- 8457 Apr, [facility] [place] [facility] [address] [id number] [place] [address]- 4368 Apr, [facility] [place] [facility] [address] [id number] [place] [address]- 8956 Apr, [facility] [place] [facility] [address] [id number] [place] [address]- 0188 Apr, [facility] [place] [facility] [address] [id number], [place] [address]- 8102 19 Apr, 2011 [facility] [place] [facility] [address] [id number] [place] [address]- 4791 Apr, [facility] [place] [facility] [address] [id number] [place] [address]- 9632 08 Apr, 2011 [facility] [place] [facility] [address] [facility] [id number] [place] [address]- 8366 Apr, [facility] [place] [facility] [address] [id number] [place] [address]- 7468 Mar, [facility] [place] [facility] [address] [id number] [place] [address], [place] [address]- 1459 Mar, [facility] [place] [facility] [address] [id number] [place] [address]- 7719 Mar, [facility] [place] [facility] [address] [facility] [id number] [place] [address]- 1533 Mar, [facility] [place] [facility] [address] [id number] [place] [address]- 7832 Mar, [facility] [place] [facility] [address] [facility] [id number] [place] [address]- 3165 Feb, [facility] [place] [facility] [address] [facility] [id number] [place] [address]- 9990 Feb, [facility] [place] [facility] [address] [id number] [place] [address]- 2516 Feb, [facility] [place] [facility] [address] [id number], [place] [address]- 3533 Dec, [facility] [place] [facility] [address] [id number] [place] [address]- 1986 Nov, [facility] [place] [facility] [address] [facility] [id number] [place] 0727 Apr, [facility] [place] [facility] [address] [facility] [id number] [place] [address]- 0199 Apr, [facility] [place] [facility] [address] [id number] [place] [address]- 2296 16 Apr, 2010 [facility] [place] [facility] [address] [id number] [place] [address] 2546 13 Apr, 2010 [facility] [place] [facility] [address] [id number] [place] [address] 2546 09 Apr, 2010 [facility] [place] [facility] [address] [id number] [place] [address] 2546 06 Apr, 2010 [facility] [place] [facility] [address] [id number] [place] [address] 2546 06 Apr, 2010 [facility] [place] [facility] [address] [id number] [place] [address] 2546 Apr, [facility] [place] [facility] [address] [id number] [place] [address]- 9915 29 Mar, 2010 [facility] [place] [facility] [address] [id number] [place] [address]- 6021 24 Mar, 2010 [facility] [place] [facility] [address] [id number] [place] [address] 2544 Mar, [facility] [place] [facility] [address] [id number] [place] [address] 2541 Mar, [facility] [place] [facility] [address] [id number] [place] [address] 2541 Mar, [facility] [place] [facility] [address] [id number] [place] [address] 254 22 Mar, 2010 [facility] [place] [facility] [address] [id number] [place] [address] 2546 15 Mar, 2010 [facility] [place] [facility] [address] [id number] [place] [address] 2546 15 Mar, 2010 [facility] [place] [facility] [address] [id number] [place] [address] 2546 15 Mar, 2010 [facility] [place] [facility] [address] [id number] [place] [address]- 8069 Mar, IMMUNIZATIONS No Known Immunizations SOCIAL HISTORY Never Assessed REASON FOR VISIT diagnosis for labs PLAN OF CARE VITAL SIGNS MEDICATIONS Unknown [...]
--- OUTSIDE RECORDS SUMMARY | 2018-04-22 22:52 | XMS REPORT ---
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 Name Role Phone CARLOS LARA Unavailable PROBLEMS Type Condition ICD9-CM Code GQN02-QW Code Onset Dates Condition Status SNOMED Code Problem Severe sleep apnea G47.30 Active 70513840 Problem Iron deficiency anemia, unspecified iron deficiency anemia type D50.9 Active 42564692 Problem Stenosis of carotid artery, unspecified laterality I65.29 Active 70054290 Problem Decreased diffusion capacity R94.2 Active 50951688 Problem Coronary artery disease involving [place] coronary artery of [place] heart, angina presence unspecified I25.10 Active 1785981063574 Problem Generalized osteoarthritis M15.9 Active 993245585 Problem Aortic valve sclerosis I35.8 Active 22517367 Problem Essential hypertension I10 Active 57510442 Problem Renal osteodystrophy N25.0 Active 76329807 Problem Anxiety about health F41.8 Active 701467562 Problem 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 Active 3218415 Problem Type 2 diabetes mellitus with unspecified complications E11.8 Active 27786534 Problem Type 2 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 Active 57294263 Problem Chronic kidney disease, unspecified CKD stage N18.9 Active 026613927 Problem Pain R52 Active 88891058 Problem detention 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.4 Active 815508702 Problem Acute anxiety F41.9 Active 44421784 Problem Inability to bear weight R26.89 Active 267597584 Problem Type 2 diabetes mellitus with diabetic polyneuropathy E11.42 Active 657162099 Problem Type 2 diabetes mellitus with foot ulcer E11.621 Active 886560115 Problem Type 2 diabetes mellitus with hyperglycemia E11.65 Active 60947798 Problem Slow transit constipation K59.01 Active 85191903 Problem Bladder spasms N32.89 Active 519781541 Problem Chronic kidney disease (CKD), stage 4 (severe) N18.4 Active 477642538 Problem Other chronic pain G89.29 Active 50248049 Problem Diarrhea, unspecified type R19.7 Active 34844789 Problem Mixed hyperlipidemia E78.2 Active 008919445 Problem Trochanteric bursitis of left hip M70.62 Active 784325867970106 Problem Anemia in other chronic diseases classified elsewhere D63.8 Active 879100603 Problem Chronic kidney disease, stage 3 (moderate) N18.3 Active 114828838 Problem Port catheter in place Z95.828 Active 037655303 Problem Transient cerebral ischemia, unspecified type G45.9 Active 396942755 Problem Hypoxemia R09.02 Active 677525899 Problem BMI 50.0-59.9, adult Z68.43 Active 187736903 ALLERGIES No Information ENCOUNTERS Encounter Location Date Diagnosis [place] [address] [address] 05 Feb, 2018 [place] [address] [address]- [address] Feb, Type 2 diabetes mellitus with diabetic polyneuropathy E11.42 and Chronic kidney disease (CKD), stage 4 (severe) N18.4 [place] [address] [address]- 68[address] 17 Jan, 2018 [place] [address] 7[address]73- 1710 14 Jan, 2018 Acute anxiety F41.9 [place] [address] [address]- 57[address] 04 Jan, 2018 Inability to bear weight R26.89 [facility] [address] [id number] Dec, Low back pain M54.5 ; Other chronic pain G89.29 and Chronic kidney disease (CKD), stage 4 (severe) N18.4 [place] [address] [address]- 4506 Dec, Type 2 diabetes mellitus with hyperglycemia E11.65 [place] [address] 31116- 6549 Dec, [employer] [address] [id number] Dec, Type 2 diabetes mellitus with hyperglycemia E11.65 ; Essential hypertension I10 ; Generalized osteoarthritis M15.9 ; Mixed hyperlipidemia E78.2 ; Hypoxia R09.02 ; Port catheter in place Z95.828 ; Anemia due to acute blood loss D62 ; Chronic kidney disease, unspecified CKD stage N18.9 and Severe sleep apnea G47.30 [place] [address] 17669- 7770 Dec, Type 2 diabetes mellitus with hyperglycemia E11.65 [place] [address] 27994- 9722 Dec, [place] [address] 13101- 7954 Dec, Type 2 diabetes mellitus with hyperglycemia E11.65 [place] [address] 28868- 6806 Dec, Left leg pain M79.605 [place] [address] [place] [id number] [place] [address] 16265- 4404 Nov, Slow transit constipation K59.01 [place] [address] [place] [id number] [place] [address] 69532- 7170 Nov, [employer] [address] [id number] Nov, Anemia due to acute blood loss D62 [place] [address] [place] [id number] [place] [address] 03894- 3519 Nov, [place] [address] [place] [id number] [place] [address] 62072- 8819 Nov, Bladder spasms N32.89 [place] [address] [place] [id number] [place] [address] 23096- 7473 Nov, Pain R52 [employer] [address] [id number] Nov, Anemia due to acute blood loss D62 [place] [address] [address] Nov, Pain in right hip M25.551 and Pain in left hip M25.552 [facility] [address] [address] 2876 Nov, [facility] [address] [address] 0254 Nov, [facility] [id number] [place] [address] 55623- 1783 Nov, [facility] [address], [place] [address] 5651 Nov, [facility] [id number] [place] [address] 98078- 5482 Oct, [facility] [id number] [place] [address] 81749- 4051 Oct, [facility] [address] [id number] Oct, Encounter for examination for admission to [facility] Z02.2 ; Chronic kidney disease, unspecified CKD stage N18.9 ; Type 2 diabetes mellitus with unspecified complications E11.8 ; detention 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.4 ; Essential hypertension I10 ; Hypoxia R09.02 ; Severe sleep apnea G47.30 ; Stenosis of carotid artery, unspecified laterality I65.29 ; Generalized osteoarthritis M15.9 ; Coronary artery disease involving [place] coronary artery of [place] heart, angina presence unspecified I25.10 ; Port catheter in place Z95.828 and Hemorrhoids, unspecified hemorrhoid type K64.9 [facility] [address] [place] [id number] [address] 66[address] Oct, [facility] [address], [place] [address] 4437 Oct, [facility] [address] [place] [address] [id number] [address] 9414 Oct, [facility] [id number] [place] [address] 39981- 6328 Oct, [facility] [address] [place] [id number] [place] [address] 47498 -9012 September, BMI 50.0-59.9, adult Z68.43 [facility] [address] [place] [id number] [place] [address] 21682- 1685 September, [facility] [address] 67387- 0698 September, [facility] [address] [place] [id number] [place] [address] 60223- 3372 Aug, Type 2 diabetes mellitus with foot ulcer E11.621 ; Transient cerebral ischemia, unspecified type G45.9 ; Essential hypertension I10 ; Mixed hyperlipidemia E78.2 and BMI 50.0-59.9, adult Z68.43 [place] [address] 74742- 5172 Aug, [facility] [address] [place] [id number] [place] [address] 98658- 1124 Jul, Anxiety about health F41.8 and Mixed hyperlipidemia E78.2 [place] [address] [address]99- 0606 13 Jul, 2017 [facility] [address] [place] [id number] [place] [address] 30230- 9153 Jun, [facility] [address] [place] [id number] [place] [address] 98459- 5998 Jun, Type 2 diabetes mellitus with hyperglycemia E11.65 ; Type 2 diabetes mellitus with foot ulcer E11.621 ; Port catheter in place Z95.828 ; 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 ; Contact with and (suspected) exposure to potentially hazardous body fluids Z77.21 and BMI 50.0-59.9, adult Z68.43 [facility] [address] [place] [id number] [place] [address] 20709- 4593 May, [place] [address] [address] 38[address] May, Open wound of right great toe, subsequent encounter S91.101D [facility] [address] [place] [id number] [address] 0373 May, [facility] [address], [place] [address] 6045 Apr, [facility] [address] [place] [id number] [place] [address] 64763- 6331 Apr, [facility] [address] [place] [id number] [place] [address] 61443- 0495 Apr, [place] [address] [place] [id number] [place] [address] 02034- 1642 Apr, Type 2 diabetes mellitus with diabetic polyneuropathy E11.42 [place] [address] [place] [id number] [place] [address] 97957- 2780 Apr, Open wound of right great toe, subsequent encounter S91.101D [place] [address], [place] [address] 9738 Apr, Open wound of right great toe, subsequent encounter S91.101D ; Breast pain, left N64.4 ; Breast cancer screening Z12.31 ; Type 2 diabetes mellitus with foot ulcer E11.621 ; Essential hypertension I10 and BMI 50.0-59.9, adult Z68.43 [place] [address], [place] [address]- 7163 Mar, Encounter for immunization Z23 [facility] [address], [place] [address]- 8746 Mar, [place] [address] [place] [id number] [place] [address] 38302- 9665 Mar, [facility] [address], [place] [address]- 6709 Mar, Type 2 diabetes mellitus with diabetic polyneuropathy E11.42 ; Type 2 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 ; Type 2 diabetes mellitus with foot ulcer E11.621 ; Essential hypertension I10 ; Hypoxemia R09.02 and Generalized osteoarthritis M15.9 [facility] [address] [place] [id number] [place] [address] 05987- 8875 Mar, 2017 Chronic kidney disease, stage 3 (moderate) N18.3 ; Acute cystitis without hematuria N30.00 ; Essential hypertension I10 ; Muscle spasms of neck M62.838 ; Type 2 diabetes mellitus with diabetic polyneuropathy E11.42 and BMI 50.0-59.9, adult Z68.43 [facility] [address] [place] [id number] [place] [address] 33311- 0002 Feb, [facility] [address] [address] -3682 Feb, [facility] [address] 31410- 6426 Feb, [facility] [address] 60366- 0286 Feb, [facility] [address] 81072- 5416 Feb, [facility] [address] [place] [id number] [place] [address] 24656- 2538 Feb, [facility] [address] [place] [id number] [place] [address] 97113- 6056 Feb, Mixed hyperlipidemia E78.2 [facility] [address] [place] [id number] [place] [address] 49516- 3434 Feb, [facility] [address] [place] [id number] [place] [address] 66053- 1297 Jan, [facility] [address] [place] [id number] [place] [address] 27158- 0668 Jan, Generalized osteoarthritis M15.9 [facility] [address] [place] [id number] [place] [address] 28878- 6840 Oct, [place] [address] [place] [id number] [place] [address] 24118- 0560 Jul, [place] [address] [place] [id number] [place] [address] 37745- 4185 Jul, [place] [address] [place] [id number] [place] [address] 62763- 2815 Jul, Type 2 diabetes mellitus with hyperglycemia E11.65 ; Chronic kidney disease, stage 3 (moderate) N18.3 ; Type 2 diabetes mellitus with foot ulcer E11.621 ; Type 2 diabetes mellitus with diabetic polyneuropathy E11.42 ; Generalized osteoarthritis M15.9 ; Trochanteric bursitis of left hip M70.62 and Tinea pedis of both feet B35.3 [place] [address] [place] [id number] [place] [address] 50195- 4563 Jun, [place] [address] 86545- 3651 Apr, [place] [address] [place] [id number] [place] [address] 43720- 3684 Apr, [place] [address] [place] [id number] [place] [address] 15564- 9257 Mar, [place] [address] [place] [id number] [place] [address] 39478- 3156 Feb, Encounter for immunization Z23 [place] [id number] [place] [address] 79390- 2001 Feb, [place] [address] [place] [id number] [place] [address] 53567- 8413 Feb, Type 2 diabetes mellitus with hyperglycemia E11.65 ; Encounter for immunization Z23 ; Diarrhea, unspecified type R19.7 ; Essential hypertension I10 ; Mixed hyperlipidemia E78.2 ; Hypoxia R09.02 ; 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 and Type 2 diabetes mellitus with foot ulcer E11.621 [place] [address] [place] [id number] [place] [address] 01326- 5719 Jan, [facility] [address], [place] [address]- 7155 Jan, Type 2 diabetes mellitus with hyperglycemia E11.65 and Pneumonia due to infectious organism, unspecified laterality, unspecified part of lung J18.9 [facility] [address], [place] [address]- 4065 Jan, [facility] [address] [place] [id number] [place] [address] 21621- 9714 Jan, [facility] [address] [place] [id number] [place] [address] 31082- 4812 Oct, Type 2 diabetes mellitus with hyperglycemia E11.65 ; Generalized osteoarthritis M15.9 and Chronic prescription opiate use Z79.891 [facility] [address] [place] [address] [address]- 2702 September, [facility] [address] [place] [id number] [place] [address] 01703- 8444 Aug, [facility] [id number] [place] [address] 77819- 1375 Aug, [facility] [address] [place] [id number] [place] [address] 63866- 1676 Aug, [facility] [address], [place] [address]- 2965 Aug, [facility] [address] [place] [id number] [place] [address] 95822- 8689 Jun, [facility] [address], [place] [address]- 1056 Jun, Type 2 diabetes mellitus with hyperglycemia E11.65 ; Mixed hyperlipidemia E78.2 ; Vaginal itching L29.8 ; Neck muscle spasm M62.838 and Skin abrasion T14.8 [facility] [address], [place] [address]- 7263 Apr, [facility] [address] [place] [id number] [place] [address] 49840- 9157 Apr, [place] [address] [place] [id number] [place] [address] 06139- 7107 Mar, [facility] [address] [place] [id number] [place] [address] 75576- 4878 Feb, [place] [address] 72131- 0536 Feb, Type 2 diabetes mellitus with hyperglycemia E11.65 ; Type 2 diabetes mellitus with foot ulcer E11.621 ; Type 2 diabetes mellitus with diabetic polyneuropathy E11.42 and Encounter for immunization Z23 [place] [address] 97529- 3150 Jan, Hypertension 401.9 ; Uncontrolled type 2 diabetes mellitus 250.02 ; Right shoulder pain 719.41 and Ulcer of heel and midfoot 707.14 [place] [address] [place] [id number] [place] [address] 17968- 9550 Dec, Diabetes with other specified manifestations, type II or unspecified type, not stated as uncontrolled 250.80 ; Ulcer of heel and midfoot 707.14 ; Hypertension 401.9 ; Hip pain, left 719.45 and Acute anxiety 300.00 [place] [address] [place] [id number] [place] [address] 72861- 9494 Nov, [place] [address] [place] [id number] [place] [address] 06853- 6317 Nov, [place] [address] [place] [id number] [place] [address] 28020- 6084 September, Anxiety attack 300.01 and Cellulitis 682.9 [place] [address] [place] [id number] [place] [address] 20464- 2303 September, [place] [address] [place] [id number] [place] [address] 28699- 4706 September, [place] [address] [place] [id number] [place] [address] 40716- 0625 September, [facility] [place] [facility] [address] [id number] [place] [address]- 7200 14 Aug, 2014 [facility] [place] [facility] [address] [id number] [place] [address]- 7826 13 Aug, 2014 [facility] [place] [facility] [address] [id number] [place] [address]- 2222 13 Jul, 2014 [facility] [place] [facility] [address] [id number] [place] [address]- 8660 13 Jul, 2014 [facility] [place] [facility] [address] [id number] [place] [address]- 6372 05 Jul, 2014 [facility] [place] [facility] [address] [id number] [place] [address]- 9785 13 May, 2014 [facility] [place] [facility] [address] [facility] [id number] [place] [address]- 0015 May, [facility] [place] [facility] [address] [id number] [place] [address]- 4570 Mar, [facility] [place] [facility] [address] [facility] [id number] [place] [address]- 2174 Mar, [facility] [place] [facility] [address] [facility] [id number] [place] [address]- 4430 Mar, [facility] [place] [facility] [address] [id number] [address]- 8704 Mar, [facility] [place] [facility] [address] [id number] [address]- 6917 Mar, [facility] [place] [facility] [address] [id number] [place] [address]- 3811 Mar, [facility] [place] [facility] [address] [facility] [id number] [place] [address]- 4478 Mar, [facility] [place] [facility] [address] [facility] [id number] [place] [address]- 5280 14 Feb, 2014 [facility] [place] [facility] [address] [id number] [place] [address]- 6226 14 Feb, 2013 [facility] [place] [facility] [address] [id number] [place] [address] 2546 30 Sep, 2013 [facility] [place] [facility] [address] [id number] [place] [address] 2546 30 Sep, 2013 [facility] [place] [facility] [address] [id number] [place] [address] 2546 26 Sep, 2013 [facility] [place] [facility] [address] [id number] [place] [address] 2548 26 Sep, 2013 [facility] [place] [facility] [address] [id number] [place] [address]- 3889 25 Sep, 2013 [facility] [place] [facility] [address] [id number] [place] [address]- 6719 25 Sep, 2013 [facility] [place] [facility] [address] [id number] [place] [address]- 2547 25 Sep, 2013 [facility] [place] [facility] [address] [id number] [place] [address] 2543 25 Sep, 2013 [facility] [place] [facility] [address] [id number] [place] [address] 2549 18 Sep, 2013 [facility] [place] [facility] [address] [id number] [place] [address] 2547 18 Sep, 2013 [facility] [place] [facility] [address] [id number] [place] [address]- 2542 06 Sep, 2013 [facility] [place] [facility] [address] [id number] [place] [address] 2546 06 Sep, 2013 [facility] [place] [facility] [address] [id number] [place] [address] 2546 05 Sep, 2013 [facility] [place] [facility] [address] [id number] [place] [address] 2546 05 Sep, 2013 [facility] [place] [facility] [address] [id number] [place] [address]- 5178 05 Sep, 2013 [facility] [place] [facility] [address] [id number] [place] [address]- 3293 Jan, 2013 [facility] [place] [facility] [address] [id number] [place] [address]- 7867 Jan, 2013 [facility] [place] [facility] [address] [id number] [place] [address]- 8768 Jan, 2013 [facility] [place] [facility] [address] [id number] [place] [address]- 2421 Dec, [facility] [place] [facility] [address] [id number] [place] [address]- 8553 Dec, [facility] [place] [facility] [address] [id number] [place] [address]- 5899 Dec, [facility] [place] [facility] [address] [id number] [place] [address]- 4246 Dec, [facility] [place] [facility] [address] [id number] [place] [address]- 9564 Dec, [facility] [place] [facility] [address] [id number] [place] [address]- 2476 Dec, [facility] [place] [facility] [address] [id number] [place] [address]- 2757 Dec, [facility] [place] [facility] [address] [id number] [place] [address]- 9886 Dec, [facility] [place] [facility] [address] [id number] [place] [address]- 4973 Dec, [facility] [place] [facility] [address] [id number] [place] [address]- 3419 Dec, [facility] [place] [facility] [address] [id number] [place] [address]- 2592 Nov, [facility] [place] [facility] [address] [id number] [place] [address]- 7522 Nov, [facility] [place] [facility] [address] [id number] [place] [address]- 9111 14 Nov, 2013 [facility] [place] [facility] [address] [id number] [place] [address]- 9382 14 Nov, 2013 [facility] [place] [facility] [address] [id number] [place] [address]- 2653 Nov, [facility] [place] [facility] [address] [id number] [place] [address]- 8348 Nov, [facility] [place] [facility] [address] [id number] [place] [address]- 9064 Oct, [facility] [place] [facility] [address] [id number] [place] [address]- 9150 Oct, [facility] [place] [facility] [address] [id number] [place] [address]- 5855 Oct, [facility] [place] [facility] [address] [id number] [place] [address]- 8838 Oct, [facility] [place] [facility] [address] [id number] [place] [address]- 0240 Oct, [facility] [place] [facility] [address] [id number] [place] [address]- 6618 Oct, [facility] [place] [facility] [address] [id number] [place] [address]- 3423 Oct, [facility] [place] [facility] [address] [id number] [place] [address]- 3230 Oct, [facility] [place] [facility] [address] [id number] [place] [address]- 5618 Oct, [facility] [place] [facility] [address] [id number] [place] [address]- 5878 Oct, [facility] [place] [facility] [address] [id number] [place] [address]- 3616 Oct, [facility] [place] [facility] [address] [id number] [place] [address]- 4395 Oct, [facility] [place] [facility] [address] [id number] [place] [address]- 5819 September, [facility] [place] [facility] [address] [id number] [place] [address]- 8039 September, [facility] [place] [facility] [address] [id number] [place] [address] September, [facility] [place] [facility] [address] [id number] [place] [address] Aug, [facility] [place] [facility] [address] [id number] [place] [address] Aug, [facility] [place] [facility] [address] [id number] [place] [address] Jul, [facility] [place] [facility] [address] [id number] [place] [address] Jul, [facility] [place] [facility] [address] [id number] [place] [address] Jul, [facility] [place] [facility] [address] [id number] [place] [address] Jul, [facility] [place] [facility] [address] [id number] [place] [address] Jul, [facility] [place] [facility] [address] [id number] [place] [address] Jul, [facility] [place] [facility] [address] [id number] [place] [address] Jul, [facility] [place] [facility] [address] [id number] [place] [address] Jul, [facility] [place] [facility] [address] [id number] [place] [address] Jul, [facility] [place] [facility] [address] [id number] [place] [address] Jul, [facility] [place] [facility] [address] [id number] [place] [address] Jun, [facility] [address] [id number] [place] [address] Jun, [facility] [place] [facility] [address] [id number] [place] [address] Jun, [facility] [address] [id number] [place] [address] Jun, [facility] [address] [id number] [place] [address] May, [facility] [address] [id number] [place] [address] May, [facility] [address] [id number] [place] [address] Apr, [facility] [facility] [address] [facility] [id number] [place] [address] Apr, [facility] [address] [id number] [place] [address] Apr, [facility] [address] [facility] [id number] [place] [address]64 Apr, [facility] [address] [facility] [id number] [place] [address] 9233 Apr, [facility] [address] [facility] [id number] [place] [address]306 Apr, [facility] [place] [facility] [address] [id number] [place] [address]- 254 Apr, [facility] [place] [facility] [address] [id number] [place] [address] Apr, [facility] [place] [facility] [address] [facility] [id number] [place] [address] 2620 Mar, [facility] [place] [facility] [address] [facility] [id number] [place] [address] Mar, [facility] [place] [facility] [address] [id number] [place] [address] 2788 18 Mar, 2013 [facility] [place] [facility] [address] [id number] [place] [address] 7649 18 Mar, 2013 [facility] [place] [facility] [address] [id number] [place] [address] 2547 Mar, [facility] [place] [facility] [address] [id number] [place] [address]- 0872 08 Mar, 2013 [facility] [place] [facility] [address] [id number] [place] [address] 8607 30 Feb, 2013 [facility] [place] [facility] [address] [id number] [place] [address]- 1632 30 Feb, 2013 [facility] [place] [facility] [address] [id number] [place] [address] 8110 Feb, [facility] [place] [facility] [address] [id number] [place] [address] 6351 Feb, [facility] [place] [facility] [address] [id number] [place] [address]- 9667 14 Feb, 2013 [facility] [place] [facility] [address] [id number] [place] [address]- 9889 14 Feb, 2013 [facility] [place] [facility] [address] [id number] [place] [address] 04 Feb, 2013 [facility] [place] [facility] [address] [id number] [place] [address] 9932 27 Jan, 2013 [facility] [place] [facility] [address] [id number] [place] [address] 3151 26 Jan, 2013 [facility] [place] [facility] [address] [id number] [place] [address]- 2007 19 Jan, 2013 [facility] [place] [facility] [address] [id number] [place] [address]- 2546 05 Jan, 2013 [facility] [place] [facility] [address] [id number] [place] [address]- 2055 Dec, [facility] [place] [facility] [address] [id number] [place] [address]- 9192 Dec, [facility] [place] [facility] [address] [id number] [place] [address]- 9062 Dec, [facility] [place] [facility] [address] [id number] [place] [address]- 9534 Nov, [facility] [place] [facility] [address] [id number] [place] [address]- 1638 Nov, [facility] [place] [facility] [address] [id number] [place] [address]- 3032 Nov, [facility] [place] [facility] [address] [id number] [place] [address]- 1233 Nov, [facility] [place] [facility] [address] [id number] [place] [address]- 2020 Nov, [facility] [place] [facility] [address] [id number] [place] [address]- 7559 Nov, [facility] [place] [facility] [address] [id number] [place] [address]- 7046 Oct, [facility] [place] [facility] [address] [id number] [place] [address]- 3155 Oct, [facility] [place] [facility] [address] [id number] [place] [address]- 7012 Oct, [facility] [place] [facility] [address] [id number] [place] [address]- 0696 Oct, [facility] [place] [facility] [address] [id number] [place] [address]- 5915 Oct, [facility] [place] [facility] [address] [id number] [place] [address]- 7882 Oct, [facility] [place] [facility] [address] [id number] [place] [address] 4176 September, [facility] [place] [facility] [address] [id number] [place] [address]- 8246 September, [facility] [address] [id number] [place] [address] 7213 September, [facility] [address] [id number] [place] [address]- 3526 September, [facility] [address] [id number] [place] [address]- 3026 Aug, [facility] [address] [id number] [place] [address] 2546 Aug, [facility] [address] [id number] [place] [address]- 4526 Jul, [facility] [address] [id number] [place] [address] 3826 Jul, [facility] [address] [id number] [place] [address] 0140 Jul, [facility] [address] [id number] [place] [address] 9929 Jul, [facility] [address] [id number] [place] [address]- 6588 Jul, [facility] [address] [id number] [place] [address] 4840 Jul, [facility] [address] [id number] [place] [address]- 9732 Jun, [facility] [address] [id number] [place] [address]- 2546 Jun, [facility] [place] [facility] [address] [id number] [place] [address] 0316 May, [facility] [place] [facility] [address] [id number] [place] [address]- 2546 May, [facility] [address] [id number] [place] [address] 4039 Apr, [facility] [place] [facility] [address] [id number] [place] [address]- 8708 18 Apr, 2012 [facility] [place] [facility] [address] [id number] [place] [address]- 3166 13 Apr, 2012 [facility] [place] [facility] [address] [id number] [place] [address] 2396 13 Apr, 2012 [facility] [place] [facility] [address] [id number] [place] [address]- 7616 10 Apr, 2012 [facility] [address] [id number] [place] [address]- 1595 10 Apr, 2012 [facility] [place] [facility] [address] [id number] [place] [address]- 0793 Apr, [facility] [address] [id number] [place] [address]- 1231 Apr, [facility] [address] [id number] [place] [address] 6700 Apr, [facility] [address] [id number] [place] [address]- 1051 Apr, [facility] [place] [facility] [address] [id number] [place] [address]- 4896 Apr, [facility] [place] [facility] [address] [id number] [place] [address]- 7983 Apr, [facility] [place] [facility] [address] [id number] [place] [address]- 4368 Apr, [facility] [place] [facility] [address] [id number] [place] [address]- 5119 Apr, [facility] [place] [facility] [address] [id number] [place] [address]- 6115 Apr, [facility] [place] [facility] [address] [id number] [place] [address]- 5031 Apr, [facility] [place] [facility] [address] [id number], [place] [address] 3144 Mar, [facility] [place] [facility] [address] [id number] [place] [address]- 1628 Mar, [facility] [place] [facility] [address] [id number] [place] [address]- 2583 Mar, [facility] [place] [facility] [address] [id number] [place] [address]- 5012 Mar, [facility] [place] [facility] [address] [id number] [place] [address]- 4346 Mar, [facility] [place] [facility] [address] [id number] [place] [address]- 1380 Mar, [facility] [place] [facility] [address] [id number] [place] [address]- 4325 Mar, [facility] [place] [facility] [address] [id number], [place] [address]- 1367 Mar, [facility] [place] [facility] [address] [id number], [place] [address]- 4994 Mar, [facility] [place] [facility] [address] [id number], [place] [address]- 6310 Mar, [facility] [place] [facility] [address] [id number], [place] [address]- 6628 Feb, [facility] [place] [facility] [address] [id number], [place] [address]- 7493 Feb, [facility] [place] [facility] [address] [id number], [place] [address]- 5044 Feb, [facility] [place] [facility] [address] [id number], [place] [address]- 6169 Feb, [facility] [place] [facility] [address] [id number], [place] [address]- 3686 Feb, [facility] [place] [facility] [address] [id number], [place] [address]- 1447 Feb, [facility] [place] [facility] [address] [id number] [place] [address]- 6194 07 Jan, 2012 [facility] [address] [id number] [place] [address]- 0474 Dec, [facility] [place] [facility] [address] [id number] [place] [address]- 8036 Dec, [facility] [address] [id number] [place] [address]- 3566 Dec, [facility] [place] [facility] [address] [id number] [place] [address]- 8620 Dec, [facility] [address] [id number] [place] [address]- 0474 Nov, [facility] [place] [facility] [address] [id number] [place] [address]- 9349 Nov, [facility] [address] [id number] [place] [address]- 8349 Nov, [facility] [address] [id number] [place] [address]- 6791 Nov, [facility] [place] [facility] [address] [id number] [place] [address]- 7325 Oct, [facility] [address] [id number] [place] [address]- 6283 Oct, [facility] [place] [facility] [address] [id number] [place] [address]- 8050 Oct, [facility] [place] [facility] [address] [id number] [place] [address]- 8062 Oct, [facility] [place] [facility] [address] [id number] [place] [address]- 9813 Oct, [facility] [place] [facility] [address] [id number] [place] [address]- 5541 September, [facility] [place] [facility] [address] [id number] [place] [address]- 1973 September, [facility] [address] [id number] [place] [address]- 6028 September, [facility] [place] [facility] [address] [id number] [place] [address]- 8303 September, [facility] [place] [facility] [address] [id number] [place] [address]- 7532 September, [facility] [place] [facility] [address] [id number] [place] [address]- 3291 September, [facility] [address] [id number] [place] [address]- 2360 September, [facility] [place] [facility] [address] [id number] [place] [address]- 8408 September, [facility] [place] [facility] [address] [id number] [place] [address]- 4182 Aug, [facility] [place] [facility] [address] [id number] [place] [address]- 3893 Aug, [facility] [place] [facility] [address] [id number] [place] [address]- 7375 Aug, [facility] [place] [facility] [address] [id number] [place] [address]- 7798 Aug, [facility] [place] [facility] [address] [id number] [place] [address]- 4917 18 Aug, 2011 [facility] [place] [facility] [address] [id number] [place] [address]- 8195 17 Aug, 2011 [facility] [place] [facility] [address] [id number] [place] [address]- 3506 13 Aug, 2011 [facility] [place] [facility] [address] [id number] [place] [address]- 5378 12 Aug, 2011 [facility] [place] [facility] [address] [id number] [place] [address]- 2969 10 Aug, 2011 [facility] [place] [facility] [address] [id number] [place] [address]- 7800 09 Aug, 2011 [facility] [address] [id number] [place] [address]- 7458 Aug, [facility] [place] [facility] [address] [id number] [place] [address]- 0577 02 Aug, 2011 [facility] [place] [facility] [address] [id number] [place] [address]- 6707 29 Jul, 2011 [facility] [place] [facility] [address] [id number] [place] [address]- 9366 28 Jul, 2011 [facility] [place] [facility] [address] [id number] [place] [address]- 1531 27 Jul, 2011 [facility] [place] [facility] [address] [id number] [place] [address]- 8801 23 Jul, 2011 [facility] [address] [id number] [place] [address]- 3348 Jul, [facility] [place] [facility] [address] [id number] [place] [address]- 9008 Jul, [facility] [place] [facility] [address] [id number] [place] [address]- 4419 14 Jul, 2011 [facility] [place] [facility] [address] [id number] [place] [address]- 8813 13 Jul, 2011 [facility] [place] [facility] [address] [id number] [place] [address]- 8819 07 Jul, 2011 [facility] [place] [facility] [address] [id number] [place] [address]- 7571 24 Jun, 2011 [facility] [place] [facility] [address] [id number] [place] [address]- 7575 23 Jun, 2011 [facility] [place] [facility] [address] [id number] [place] [address]- 2256 23 Jun, 2011 [facility] [place] [facility] [address] [id number] [place] [address]- 6731 14 Jun, 2011 [facility] [place] [facility] [address] [id number] [place] [address]- 1044 Jun, [facility] [place] [facility] [address] [id number] [place] [address]- 0466 Jun, [facility] [place] [facility] [address] [id number] [place] [address]- 6890 Jun, [facility] [place] [facility] [address] [id number] [place] [address]- 3923 May, [facility] [place] [facility] [address] [id number] [place] [address]- 4068 May, [facility] [place] [facility] [address] [id number] [place] [address]- 7555 May, [facility] [place] [facility] [address] [id number] [place] [address]- 7521 May, [facility] [place] [facility] [address] [id number] [place] [address]- 1235 May, [facility] [place] [facility] [address] [id number] [place] [address]- 9141 May, [facility] [place] [facility] [address] [id number], [place] [address]- 7679 May, [facility] [place] [facility] [address] [id number], [place] [address]- 6198 Apr, [facility] [place] [facility] [address] [id number], [place] [address]- 7374 Apr, [facility] [place] [facility] [address] [id number] [place] [address]- 4197 Apr, [facility] [place] [facility] [address] [id number] [place] [address]- 5566 Apr, [facility] [place] [facility] [address] [id number] [place] [address]- 8456 Apr, [facility] [place] [facility] [address] [id number], [place] [address]- 1756 19 Apr, 2011 [facility] [place] [facility] [address] [id number] [place] [address]- 3132 Apr, [facility] [place] [facility] [address] [id number] [place] [address]- 4778 08 Apr, 2011 [facility] [place] [facility] [address] [facility] [id number] [place] [address]- 6946 Apr, [facility] [place] [facility] [address] [id number] [place] [address]- 6789 Mar, [facility] [place] [facility] [address] [id number] [place] [address], [place] [address]- 7818 Mar, [facility] [place] [facility] [address] [id number] [place] [address]- 3384 Mar, [facility] [place] [facility] [address] [facility] [id number] [place] [address]- 8076 Mar, [facility] [place] [facility] [address] [id number] [place] [address]- 0444 Mar, [facility] [place] [facility] [address] [facility] [id number] [place] [address]- 4372 Feb, [facility] [place] [facility] [address] [facility] [id number] [place] [address]- 8757 Feb, [facility] [place] [facility] [address] [id number] [place] [address]- 7290 Feb, [facility] [place] [facility] [address] [id number], [place] [address]- 5076 Dec, [facility] [place] [facility] [address] [id number] [place] [address]- 6955 Nov, [facility] [place] [facility] [address] [facility] [id number] [place] [address]38 Apr, [facility] [place] [facility] [address] [facility] [id number] [place] [address]- 2591 Apr, [facility] [place] [facility] [address] [id number] [place] [address]- 4836 16 Apr, 2010 [facility] [place] [facility] [address] [id number] [place] [address] 2546 13 Apr, 2010 [facility] [place] [facility] [address] [id number] [place] [address] 2546 09 Apr, 2010 [facility] [place] [facility] [address] [id number] [place] [address] 2546 06 Apr, 2010 [facility] [place] [facility] [address] [id number] [place] [address] 2546 06 Apr, 2010 [facility] [place] [facility] [address] [id number] [place] [address] 2546 Apr, [facility] [place] [facility] [address] [id number] [place] [address]- 6761 29 Mar, 2010 [facility] [place] [facility] [address] [id number] [place] [address]- 8385 24 Mar, 2010 [facility] [place] [facility] [address] [id number] [place] [address] 2543 Mar, [facility] [place] [facility] [address] [id number] [place] [address] 2548 Mar, [facility] [place] [facility] [address] [id number] [place] [address] 254 Mar, [facility] [place] [facility] [address] [id number] [place] [address] 254 22 Mar, 2010 [facility] [place] [facility] [address] [id number] [place] [address] 2546 15 Mar, 2010 [facility] [place] [facility] [address] [id number] [place] [address] 2546 15 Mar, 2010 [facility] [place] [facility] [address] [id number] [place] [address] 2546 15 Mar, 2010 [facility] [place] [facility] [address] [id number] [place] [address]- 2913 Mar, IMMUNIZATIONS No Known Immunizations SOCIAL HISTORY Never Assessed REASON FOR VISIT list meds under appropriate Dx PLAN OF CARE VITAL SIGNS MEDICATIONS Medication Instructions Dosage Frequency Start Date End Date Duration Status Gabapentin 100 mg Orally Three times a day 1 capsule 8h Active Vitamin D3 5000 UNIT Orally Once a day at hs 1 capsule Active RESULTS No Results PROCEDURES No Known [...]
--- OUTSIDE RECORDS SUMMARY | 2018-04-22 22:53 | XMS REPORT ---
Author Author CARLOS LARA [facility] Address [address] [place] [address] Care Team Providers Care Home Care Associate Name Role Phone CARLOS LARA Unavailable PROBLEMS Type Condition ICD9-CM Code [id number] Code Onset Dates Condition Status SNOMED Code Problem Severe sleep apnea G47.30 Active 18416047 Problem Iron deficiency anemia, unspecified iron deficiency anemia type D50.9 Active 94451437 Problem Stenosis of carotid artery, unspecified laterality I65.29 Active 87849897 Problem Decreased diffusion capacity R94.2 Active 25792736 Problem Coronary artery disease involving mi'kmaq coronary artery of mi'kmaq heart, angina presence unspecified I25.10 Active 5551259190792 Problem Generalized osteoarthritis M15.9 Active 861315379 Problem Aortic valve sclerosis I35.8 Active 63325326 Problem Essential hypertension I10 Active 21775747 Problem Renal osteodystrophy N25.0 Active 21806958 Problem Anxiety about health F41.8 Active 753384975 Problem 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 Active 4492236 Problem Type 2 diabetes mellitus with unspecified complications E11.8 Active 74102810 Problem Type 2 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 Active 52515036 Problem Chronic kidney disease, unspecified CKD stage N18.9 Active 413633226 Problem Pain R52 Active 79136219 Problem group home 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.4 Active 866139378 Problem Acute anxiety F41.9 Active 83848631 Problem Inability to bear weight R26.89 Active 221885120 Problem Type 2 diabetes mellitus with diabetic polyneuropathy E11.42 Active 375047641 Problem Type 2 diabetes mellitus with foot ulcer E11.621 Active 191537094 Problem Type 2 diabetes mellitus with hyperglycemia E11.65 Active 04704868 Problem Slow transit constipation K59.01 Active 85405285 Problem Bladder spasms N32.89 Active 994362174 Problem Chronic kidney disease (CKD), stage 4 (severe) N18.4 Active 343247598 Problem Other chronic pain G89.29 Active 39094604 Problem Diarrhea, unspecified type R19.7 Active 50281929 Problem Mixed hyperlipidemia E78.2 Active 088541879 Problem Trochanteric bursitis of left hip M70.62 Active 663425008292273 Problem Anemia in other chronic diseases classified elsewhere D63.8 Active 384201581 Problem Chronic kidney disease, stage 3 (moderate) N18.3 Active 513671915 Problem Port catheter in place Z95.828 Active 152059872 Problem Transient cerebral ischemia, unspecified type G45.9 Active 613821366 Problem Hypoxemia R09.02 Active 870571628 Problem BMI 50.0-59.9, adult Z68.43 Active 611101646 ALLERGIES No Information ENCOUNTERS Encounter Location Date Diagnosis [place] [address] [address] Feb, Type 2 diabetes mellitus with diabetic polyneuropathy E11.42 and Chronic kidney disease (CKD), stage 4 (severe) N18.4 [place] [address] [address]- [address] 17 Jan, 2018 [place] [address] [address]- 9471 14 Jan, 2018 Acute anxiety F41.9 [place] [address] 87889- 8585 04 Jan, 2018 Inability to bear weight R26.89 [facility] [place] [id number] Dec, Low back pain M54.5 ; Other chronic pain G89.29 and Chronic kidney disease (CKD), stage 4 (severe) N18.4 [place] [address] [address]- [address] Dec, Type 2 diabetes mellitus with hyperglycemia E11.65 [place] [address] 85657- [address]99 Dec, [facility] [address] [place] [id number] Dec, Type 2 diabetes mellitus with hyperglycemia E11.65 ; Essential hypertension I10 ; Generalized osteoarthritis M15.9 ; Mixed hyperlipidemia E78.2 ; Hypoxia R09.02 ; Port catheter in place Z95.828 ; Anemia due to acute blood loss D62 ; Chronic kidney disease, unspecified CKD stage N18.9 and Severe sleep apnea G47.30 [place] [address] [place] [id number] [place] [address] 86314- 3444 Dec, Type 2 diabetes mellitus with hyperglycemia E11.65 [place] [address] 15366- 9454 Dec, [place] [address] [address]74- 2014 Dec, Type 2 diabetes mellitus with hyperglycemia E11.65 [place] [address] [place] [id number] [place] [address] 91500- 1484 Dec, Left leg pain M79.605 [place] [address] 73997- 2974 Nov, Slow transit constipation K59.01 [place] [address] [place] [id number] [place] [address] 36822- 6130 Nov, [facility] [address] [place] [id number] Nov, Anemia due to acute blood loss D62 [place] [address] [place] [id number] [place] [address] 78672- 3122 Nov, [place] [address] [place] [id number] [place] [address] 29790- 6783 Nov, Bladder spasms N32.89 [place] [address] [place] [id number] [place] [address] 33802- 8603 Nov, Pain R52 [facility] [address] [place] [id number] Nov, Anemia due to acute blood loss D62 [place] [address] [place] [id number] [place] [address] 71979- 6190 Nov, Pain in right hip M25.551 and Pain in left hip M25.552 [facility] [address] [address] Nov, [facility] [address], [place] [address] 2492 Nov, [facility] [address], [place] [address] 7607 Nov, [facility] [id number] [place] [address] 56482- 6638 Nov, [facility] [address], [place] [address] 0328 Oct, [facility] [id number] [place] [address] 89007- 9668 Oct, [facility] [address] [place] [id number] Oct, Encounter for examination for admission to snf Z02.2 ; Chronic kidney disease, unspecified CKD stage N18.9 ; Type 2 diabetes mellitus with unspecified complications E11.8 ; 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 ; Essential hypertension I10 ; Hypoxia R09.02 ; Severe sleep apnea G47.30 ; Stenosis of carotid artery, unspecified laterality I65.29 ; Generalized osteoarthritis M15.9 ; Coronary artery disease involving mi'kmaq coronary artery of mi'kmaq heart, angina presence unspecified I25.10 ; Port catheter in place Z95.828 and Hemorrhoids, unspecified hemorrhoid type K64.9 [facility] [address] [place] [id number] [address] 59[address] Oct, [facility] [address] [place] [id number] [address] 5573 Oct, [facility] [address], [place] [address]- 1744 Oct, [facility] [address] [place] [id number] [address] 0447 Oct, [facility] [address] [address] September, BMI 50.0-59.9, adult Z68.43 [place] [address] 07695- 0599 September, [facility] [address] 38380- 8053 September, [place] [address] 41914- 5316 Aug, Type 2 diabetes mellitus with foot ulcer E11.621 ; Transient cerebral ischemia, unspecified type G45.9 ; Essential hypertension I10 ; Mixed hyperlipidemia E78.2 and BMI 50.0-59.9, adult Z68.43 [place] [address] 6[address]44- 0054 Aug, [place] [address] 49527- 4902 14 Jul, 2017 Anxiety about health F41.8 and Mixed hyperlipidemia E78.2 [place] [address] 33539- 8748 13 Jul, 2017 [place] [address] 25705- 8772 Jun, [place] [address] 41304- 0920 Jun, Type 2 diabetes mellitus with hyperglycemia E11.65 ; Type 2 diabetes mellitus with foot ulcer E11.621 ; Port catheter in place Z95.828 ; 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 ; Contact with and (suspected) exposure to potentially hazardous body fluids Z77.21 and BMI 50.0-59.9, adult Z68.43 [place] [address] [place] [id number] [place] [address] 46909- 7032 May, [place] [address] [address]47- 3435 May, Open wound of right great toe, subsequent encounter S91.101D [place] [address], [place] [address] May, [place] [address], [place] [address] 9256 Apr, [place] [address], [place] [address]- 7582 Apr, [place] [address] [place] [id number] [address] 1339 Apr, [place] [address], [place] [address] 2[address] Apr, Type 2 diabetes mellitus with diabetic polyneuropathy E11.42 [place] [address], [place] [address] 9159 Apr, Open wound of right great toe, subsequent encounter S91.101D [place] [address], [place] [address] 0[address] Apr, Open wound of right great toe, subsequent encounter S91.101D ; Breast pain, left N64.4 ; Breast cancer screening Z12.31 ; Type 2 diabetes mellitus with foot ulcer E11.621 ; Essential hypertension I10 and BMI 50.0-59.9, adult Z68.43 [place] [address], [place] [address] 9225 Mar, Encounter for immunization Z23 [place] [address], [place] [address] 4[address] Mar, [place] [address], [place] [address] Mar, [place] [address] [place] [id number] [place] [address] 48172- 7989 Mar, Type 2 diabetes mellitus with diabetic polyneuropathy E11.42 ; Type 2 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 ; Type 2 diabetes mellitus with foot ulcer E11.621 ; Essential hypertension I10 ; Hypoxemia R09.02 and Generalized osteoarthritis M15.9 [facility] [address] [place] [id number] [place] [address] 20144- 9512 Mar, Chronic kidney disease, stage 3 (moderate) N18.3 ; Acute cystitis without hematuria N30.00 ; Essential hypertension I10 ; Muscle spasms of neck M62.838 ; Type 2 diabetes mellitus with diabetic polyneuropathy E11.42 and BMI 50.0-59.9, adult Z68.43 [facility] [address] 7[address]32- 6455 Feb, [facility] [address] [place] [id number] [place] [address] 35549 -2606 Feb, [facility] [address] 20386- 8407 Feb, [facility] [address] 85730- 2170 Feb, [facility] [address] 45638- 4850 Feb, [facility] [address] 60315- 6995 Feb, [facility] [address] [place] [id number] [place] [address] 05092- 6421 Feb, Mixed hyperlipidemia E78.2 [facility] [address] [place] [id number] [place] [address] 47804- 0424 Feb, [facility] [address] [place] [id number] [place] [address] 87546- 6918 Jan, [facility] [address] [place] [id number] [place] [address] 18033- 6136 14 Jan, 2017 Generalized osteoarthritis M15.9 [facility] [address] [place] [id number] [place] [address] 52507- 4674 Oct, [facility] [address] 65919- 7776 Jul, [place] [address] [place] [id number] [place] [address] 47870- 0132 Jul, [place] [address] [place] [id number] [place] [address] 52219- 6415 Jul, Type 2 diabetes mellitus with hyperglycemia E11.65 ; Chronic kidney disease, stage 3 (moderate) N18.3 ; Type 2 diabetes mellitus with foot ulcer E11.621 ; Type 2 diabetes mellitus with diabetic polyneuropathy E11.42 ; Generalized osteoarthritis M15.9 ; Trochanteric bursitis of left hip M70.62 and Tinea pedis of both feet B35.3 [place] [address] 72478- 8296 Jun, [place] [address] [place] [id number] [place] [address] 64584- 3374 Apr, [place] [address] 64135- 8169 Apr, [place] [address] [place] [id number] [place] [address] 37159- 1182 Mar, [place] [address] 49313- 0470 Feb, Encounter for immunization Z23 [place] [id number] [place] [address] 27737- 0947 Feb, [place] [address] [place] [id number] [place] [address] 59277- 2019 Feb, Type 2 diabetes mellitus with hyperglycemia E11.65 ; Encounter for immunization Z23 ; Diarrhea, unspecified type R19.7 ; Essential hypertension I10 ; Mixed hyperlipidemia E78.2 ; Hypoxia R09.02 ; 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 and Type 2 diabetes mellitus with foot ulcer E11.621 [place] [address] [place] [id number] [place] [address] 94655- 9768 Jan, [place] [address] 38750- 8936 Jan, Type 2 diabetes mellitus with hyperglycemia E11.65 and Pneumonia due to infectious organism, unspecified laterality, unspecified part of lung J18.9 [facility] [address] [place] [id number] [place] [address] 11440- 9307 Jan, [facility] [address] [place] [id number] [place] [address] 91642- 8769 Jan, [facility] [address] [place] [id number] [place] [address] 50151- 9825 Oct, Type 2 diabetes mellitus with hyperglycemia E11.65 ; Generalized osteoarthritis M15.9 and Chronic prescription opiate use Z79.891 [facility] [address] [place] [id number] [place] [address] 59585- 1097 September, [facility] [address] [place] [id number] [place] [address] 18595- 6011 Aug, [facility] [address] [place] [id number] [place] [address] 10749- 4532 Aug, [facility] [address] [place] [id number] [place] [address] 67075- 8919 Aug, [facility] [address] [place] [id number] [place] [address] 26277- 9186 Aug, [facility] [address] [place] [id number] [place] [address] 39150- 7755 Jun, [facility] [address] [place] [id number] [place] [address] 58163- 3194 Jun, Type 2 diabetes mellitus with hyperglycemia E11.65 ; Mixed hyperlipidemia E78.2 ; Vaginal itching L29.8 ; Neck muscle spasm M62.838 and Skin abrasion T14.8 [facility] [id number] [place] [address] 31687- 2855 Apr, [facility] [address] [place] [id number] [place] [address] 01722- 7957 Apr, [facility] [address] [place] [id number] [place] [address] 12244- 1945 Mar, [facility] [address] 61579- 4813 Feb, [facility] [address] [place] [id number] [place] [address] 40574- 9432 Feb, Type 2 diabetes mellitus with hyperglycemia E11.65 ; Type 2 diabetes mellitus with foot ulcer E11.621 ; Type 2 diabetes mellitus with diabetic polyneuropathy E11.42 and Encounter for immunization Z23 [facility] [address] [place] [id number] [place] [address] 18960- 4242 Jan, Hypertension 401.9 ; Uncontrolled type 2 diabetes mellitus 250.02 ; Right shoulder pain 719.41 and Ulcer of heel and midfoot 707.14 [place] [address] 72548- 2712 Dec, Diabetes with other specified manifestations, type II or unspecified type, not stated as uncontrolled 250.80 ; Ulcer of heel and midfoot 707.14 ; Hypertension 401.9 ; Hip pain, left 719.45 and Acute anxiety 300.00 [place] [address] [place] [id number] [place] [address] 13227- 1214 Nov, [place] [address] [place] [id number] [place] [address] 52446- 4979 Nov, [facility] [address] [place] [id number] [place] [address] 15512- 2420 September, Anxiety attack 300.01 and Cellulitis 682.9 [facility] [address] [place] [id number] [place] [address] 71339- 3632 September, [facility] [address] 97160- 2679 September, [facility] [address] [place] [id number] [place] [address] 00129- 9359 September, [facility] [address] 51259- 0842 14 Aug, 2014 [facility] [place] [facility] [address] [id number] [place] [address]- 3137 13 Aug, 2014 [facility] [place] [facility] [address] [id number] [place] [address]- 8522 13 Jul, 2014 [facility] [place] [facility] [address] [facility] [id number] [place] [address]- 8233 13 Jul, 2014 [facility] [place] [facility] [address] [id number] [place] [address]- 0944 05 Jul, 2014 [facility] [place] [facility] [address] [id number] [place] [address]- 2933 13 May, 2014 [facility] [place] [facility] [address] [id number] [place] [address]- 4535 13 May, 2014 [facility] [place] [facility] [address] [facility] [id number], [place] [address]- 8882 Mar, [facility] [place] [facility] [address] [id number] [place] [address]- 0848 Mar, [facility] [place] [facility] [address] [facility] [id number], [place] [address]- 8006 Mar, [facility] [place] [facility] [address] [facility] [id number], [place] [address]- 9356 Mar, [facility] [place] [facility] [address] [facility] [id number], [place] [address]- 0940 Mar, [facility] [place] [facility] [address] [id number], [place] [address]- 6364 07 Mar, 2014 [facility] [place] [facility] [address] [id number], [place] [address]- 9476 07 Mar, 2014 [facility] [place] [facility] [address] [facility] [id number], [place] [address]- 4291 14 Feb, 2014 [facility] [place] [facility] [address] [facility] [id number], [place] [address]- 3661 14 Feb, 2014 [facility] [place] [facility] [address] [id number] [place] [address] 2546 30 Sep, 2013 [facility] [place] [facility] [address] [id number] [place] [address] 2546 30 Sep, 2013 [facility] [place] [facility] [address] [id number] [place] [address] 2546 26 Sep, 2013 [facility] [place] [facility] [address] [id number] [place] [address] 2546 26 Sep, 2013 [facility] [place] [facility] [address] [id number] [place] [address] 2546 25 Sep, 2013 [facility] [place] [facility] [address] [id number] [place] [address] 2546 25 Sep, 2013 [facility] [place] [facility] [address] [id number] [place] [address] 2542 25 Sep, 2013 [facility] [place] [facility] [address] [id number] [place] [address] 2545 25 Sep, 2013 [facility] [place] [facility] [address] [id number] [place] [address] 2541 18 Sep, 2013 [facility] [place] [facility] [address] [id number] [place] [address] 2540 18 Sep, 2013 [facility] [place] [facility] [address] [id number] [place] [address] 2543 06 Sep, 2013 [facility] [place] [facility] [address] [id number] [place] [address] 2542 06 Sep, 2013 [facility] [place] [facility] [address] [id number] [place] [address] 2546 05 Sep, 2013 [facility] [place] [facility] [address] [id number] [place] [address] 2546 05 Sep, 2013 [facility] [place] [facility] [address] [id number] [place] [address] 2546 05 Sep, 2013 [facility] [place] [facility] [address] [id number] [place] [address]- 2546 05 Sep, 2013 [facility] [place] [facility] [address] [id number] [place] [address]- 8746 Jan, 2013 [facility] [place] [facility] [address] [id number] [place] [address]- 3030 Jan, [facility] [place] [facility] [address] [id number] [place] [address]- 8622 Dec, [facility] [place] [facility] [address] [id number] [place] [address]- 6117 Dec, [facility] [place] [facility] [address] [id number] [place] [address]- 4873 Dec, [facility] [place] [facility] [address] [id number] [place] [address]- 0950 Dec, [facility] [place] [facility] [address] [id number] [place] [address]- 8561 Dec, [facility] [place] [facility] [address] [id number] [place] [address]- 1272 Dec, [facility] [place] [facility] [address] [id number] [place] [address]- 8521 Dec, [facility] [place] [facility] [address] [id number] [place] [address]- 1108 Dec, [facility] [place] [facility] [address] [id number] [place] [address]- 0188 Dec, [facility] [place] [facility] [address] [id number] [place] [address]- 7684 Dec, [facility] [place] [facility] [address] [id number] [place] [address]- 5907 Nov, [facility] [place] [facility] [address] [id number] [place] [address]- 0145 Nov, [facility] [place] [facility] [address] [id number] [place] [address]- 9348 Nov, [facility] [place] [facility] [address] [id number] [place] [address]- 5381 14 Nov, 2013 [facility] [place] [facility] [address] [id number] [place] [address]- 4880 Nov, [facility] [place] [facility] [address] [id number] [place] [address]- 3142 Nov, [facility] [place] [facility] [address] [id number] [place] [address]- 6909 Oct, [facility] [place] [facility] [address] [id number] [place] [address]- 5831 Oct, [facility] [place] [facility] [address] [id number] [place] [address]- 6452 Oct, [facility] [place] [facility] [address] [id number] [place] [address]- 5644 Oct, [facility] [place] [facility] [address] [id number] [place] [address]- 9436 Oct, [facility] [place] [facility] [address] [id number] [place] [address]- 5092 Oct, [facility] [place] [facility] [address] [id number] [place] [address]- 1822 Oct, [facility] [place] [facility] [address] [id number] [place] [address]- 1127 Oct, [facility] [place] [facility] [address] [id number] [place] [address]- 6903 Oct, [facility] [place] [facility] [address] [id number] [place] [address]- 6044 Oct, [facility] [place] [facility] [address] [id number] [place] [address]- 6518 Oct, [facility] [place] [facility] [address] [id number] [place] [address]- 8760 Oct, [facility] [place] [facility] [address] [id number] [place] [address]- 7847 September, [facility] [place] [facility] [address] [id number] [place] [address]- 4260 September, [facility] [place] [facility] [address] [id number] [place] [address]- 7687 September, [facility] [place] [facility] [address] [id number] [place] [address]- 8995 Aug, [facility] [place] [facility] [address] [id number] [place] [address]- 8315 Aug, [facility] [place] [facility] [address] [id number] [place] [address]- 7344 Jul, [facility] [place] [facility] [address] [id number] [place] [address]- 7055 Jul, [facility] [place] [facility] [address] [id number] [place] [address]- 2682 Jul, [facility] [place] [facility] [address] [id number] [place] [address]- 1275 Jul, [facility] [place] [facility] [address] [id number] [place] [address]- 0790 Jul, [facility] [place] [facility] [address] [id number] [place] [address]- 6183 Jul, [facility] [place] [facility] [address] [id number] [place] [address]- 5278 Jul, [facility] [place] [facility] [address] [id number] [place] [address] Jul, [facility] [place] [facility] [address] [id number] [place] [address] Jul, [facility] [place] [facility] [address] [id number] [place] [address] Jul, [facility] [place] [facility] [address] [id number] [place] [address] Jun, [facility] [place] [facility] [address] [id number] [place] [address] Jun, [facility] [address] [id number] [place] [address] Jun, [facility] [place] [facility] [address] [id number] [place] [address] [address] Jun, [facility] [place] [facility] [address] [facility] [id number] [place] [address] May, [facility] [place] [facility] [address] [id number] [place] [address] May, [facility] [place] [facility] [address] [id number] [place] [address] Apr, [facility] [place] [facility] [address] [id number] [place] [address] Apr, [facility] [address] [facility] [id number] [place] [address] Apr, [facility] [place] [facility] [address] [id number] [place] [address] Apr, [facility] [place] [facility] [address] [facility] [id number] [place] [address] Apr, [facility] [place] [facility] [address] [facility] [id number] [place] [address] Apr, [facility] [place] [facility] [address] [facility] [id number] [place] [address] Apr, [facility] [place] [facility] [address] [id number] [place] [address] Apr, [facility] [place] [facility] [address] [id number] [place] [address] Mar, [facility] [place] [facility] [address] [id number] [place] [address] Mar, [facility] [place] [facility] [address] [facility] [id number] [place] [address] Mar, [facility] [place] [facility] [address] [id number] [place] [address] 18 Mar, 2013 [facility] [facility] [address] [id number] [place] [address] 08 Mar, 2013 [facility] [place] [facility] [address] [id number] [place] [address] Mar, [facility] [place] [facility] [address] [id number] [place] [address] 4666 30 Feb, 2013 [facility] [place] [facility] [address] [id number] [place] [address]- 0745 30 Feb, 2013 [facility] [place] [facility] [address] [id number] [place] [address] 9872 Feb, [facility] [place] [facility] [address] [id number] [place] [address]- 3264 Feb, [facility] [place] [facility] [address] [id number] [place] [address] 5257 14 Feb, 2013 [facility] [place] [facility] [address] [id number] [place] [address]- 0892 14 Feb, 2013 [facility] [place] [facility] [address] [id number] [place] [address]- 4198 04 Feb, 2013 [facility] [place] [facility] [address] [id number] [place] [address]- 4572 27 Jan, 2013 [facility] [place] [facility] [address] [id number] [place] [address] 6653 26 Jan, 2013 [facility] [place] [facility] [address] [id number] [place] [address]- 1550 19 Jan, 2013 [facility] [place] [facility] [address] [id number] [place] [address]- 7553 05 Jan, 2013 [facility] [place] [address] [id number] [place] [address]- 2546 16 Dec, 2012 [facility] [place] [address] [id number] [place] [address]- 2435 Dec, [facility] [place] [address] [id number] [place] [address]- 1071 Dec, [facility] [place] [address] [id number] [place] [address]- 1697 Nov, [facility] [place] [facility] [address] [id number] [place] [address]- 9514 Nov, [facility] [place] [facility] [address] [id number] [place] [address]- 6393 Nov, [facility] [place] [address] [id number] [place] [address]- 5030 Nov, [facility] [place] [address] [id number] [place] [address]- 6528 Nov, [facility] [place] [address] [id number] [place] [address]- 1238 Nov, [facility] [address] [id number] [place] [address]- 9607 Oct, [facility] [address] [id number] [place] [address]- 7668 Oct, [facility] [place] [address] [id number] [place] [address]- 2153 Oct, [facility] [address] [id number] [place] [address]- 4856 Oct, [facility] [address] [id number] [place] [address]- 9278 Oct, [facility] [address] [id number] [place] [address]- 9277 Oct, [facility] [address] [id number] [place] [address]- 2684 September, [facility] [address] [id number] [place] [address]- 6869 September, [facility] [address] [id number] [place] [address]- 0907 24 Sep, 2012 [facility] [address] [id number] [place] [address] 1124 September, [facility] [address] [id number] [place] [address]- 3082 Aug, [facility] [address] [id number] [place] [address]- 6806 Aug, [facility] [address] [id number] [place] [address]- 2945 28 Jul, 2012 [facility] [address] [id number] [place] [address]- 9666 Jul, [facility] [address] [id number] [place] [address]- 8886 Jul, [facility] [address] [id number] [place] [address]- 8339 15 Jul, 2012 [facility] [address] [id number] [place] [address]- 4678 Jul, [facility] [address] [id number] [place] [address] 08 Jul, 2012 [facility] [address] [id number] [place] [address]- 5036 Jun, [facility] [address] [id number] [place] [address]- 4277 Jun, [facility] [address] [id number] [place] [address]- 8618 May, [facility] [address] [id number] [place] [address]- 8183 May, [facility] [address] [id number] [place] [address]- 2437 Apr, [facility] [address] [id number] [place] [address]- 6788 Apr, [facility] [address] [id number] [place] [address]- 1094 13 Apr, 2012 [facility] [address] [id number] [place] [address]- 5146 13 Apr, 2012 [facility] [address] [id number] [place] [address]- 4416 10 Apr, 2012 [facility] [address] [id number] [place] [address]- 6286 10 Apr, 2012 [facility] [address] [id number] [place] [address]- 4529 07 Apr, 2012 [facility] [address] [id number] [place] [address]- 1537 Apr, [facility] [address] [id number] [place] [address]- 9890 Apr, [facility] [address] [id number] [place] [address]- 0221 Apr, [facility] [address] [id number] [place] [address]- 1167 Apr, [facility] [address] [id number] [place] [address]- 4490 Apr, [facility] [address] [id number] [place] [address]- 8679 Apr, [facility] [address] [id number] [place] [address]- 6602 Apr, [facility] [address] [id number] [place] [address]- 4880 Apr, [facility] [address] [id number] [place] [address]- 7879 Apr, [facility] [address] [id number] [place] [address]- 9626 Mar, [facility] [address] [id number], [place] [address]- 2129 Mar, [facility] [address] [id number] [place] [address]- 4262 Mar, [facility] [address] [id number] [place] [address] Mar, [facility] [address] [id number] [place] [address]- 5429 Mar, [facility] [address] [id number] [place] [address]- 3564 Mar, [facility] [address] [id number] [place] [address]- 1663 Mar, [facility] [address] [id number] [place] [address]- 2146 Mar, [facility] [address] [id number] [place] [address]- 9694 Mar, [facility] [address] [id number] [place] [address]- 4579 Mar, [facility] [address] [id number], [place] [address]- 8835 Feb, [facility] [address] [id number] [place] [address]- 4678 Feb, [facility] [address] [id number], [place] [address]- 4520 Feb, [facility] [address] [id number], [place] [address]- 8370 Feb, [facility] [address] [id number], [place] [address]- 9081 Feb, [facility] [address] [id number], [place] [address]- 1207 Feb, [facility] [address] [id number] [place] [address]- 2294 Jan, [facility] [address] [id number] [place] [address]- 9068 Dec, [facility] [address] [id number] [place] [address]- 9553 Dec, [facility] [address] [id number] [place] [address]- 3336 Dec, [facility] [address] [id number] [place] [address]- 1526 Dec, [facility] [address] [id number] [place] [address]- 3920 Nov, [facility] [address] [id number] [place] [address]- 5254 Nov, [facility] [address] [id number] [place] [address]- 5264 Nov, [facility] [address] [id number] [place] [address]- 2939 Nov, [facility] [address] [id number] [place] [address]- 2286 Oct, [facility] [address] [id number] [place] [address]- 0286 Oct, [facility] [address] [id number] [place] [address]- 9944 Oct, [facility] [address] [id number] [place] [address]- 7820 Oct, [facility] [address] [id number] [place] [address]- 3086 Oct, [facility] [address] [id number] [place] [address]- 8003 September, [facility] [address] [id number] [place] [address]- 6316 September, [facility] [address] [id number] [place] [address]995 September, [facility] [address] [id number] [place] [address]- 7603 September, [facility] [address] [id number] [place] [address]- 6094 September, [facility] [address] [id number] [place] [address]- 5706 September, [facility] [address] [id number] [place] [address]- 3257 September, [facility] [address] [id number] [place] [address]- 2100 September, [facility] [address] [id number] [place] [address]- 6175 Aug, [facility] [address] [id number] [place] [address]- 9123 Aug, [facility] [address] [id number] [place] [address]- 7261 Aug, [facility] [address] [id number] [place] [address]- 8376 Aug, [facility] [address] [id number] [place] [address]- 0316 18 Aug, 2011 [facility] [address] [id number] [place] [address]- 3924 17 Aug, 2011 [facility] [address] [id number] [place] [address]- 5823 13 Aug, 2011 [facility] [address] [id number] [place] [address]- 5872 12 Aug, 2011 [facility] [address] [id number] [place] [address]- 9878 10 Aug, 2011 [facility] [address] [id number] [place] [address]- 2927 09 Aug, 2011 [facility] [address] [id number] [place] [address]- 9923 02 Aug, 2011 [facility] [address] [id number] [place] [address]- 8107 Aug, [facility] [address] [id number] [place] [address]- 6020 29 Jul, 2011 [facility] [address] [id number] [place] [address]- 7287 28 Jul, 2011 [facility] [address] [id number] [place] [address]- 0968 27 Jul, 2011 [facility] [address] [id number] [place] [address]- 1234 Jul, [facility] [address] [id number] [place] [address]- 0474 Jul, [facility] [address] [id number] [place] [address]- 2651 Jul, [facility] [address] [id number] [place] [address]- 5582 14 Jul, 2011 [facility] [address] [id number] [place] [address]- 3348 13 Jul, 2011 [facility] [address] [id number] [place] [address]- 7501 Jul, [facility] [address] [id number] [place] [address]- 4978 24 Jun, 2011 [facility] [address] [id number] [place] [address]- 4469 Jun, [facility] [address] [id number] [place] [address]- 7466 Jun, [facility] [address] [id number] [place] [address]- 0763 14 Jun, 2011 [facility] [address] [id number] [place] [address]- 6871 Jun, [facility] [address] [id number] [place] [address]- 1299 Jun, [facility] [address] [id number] [place] [address]- 5022 Jun, [facility] [address] [id number] [place] [address]- 3127 May, [facility] [address] [id number] [place] [address]- 2660 May, [facility] [address] [id number] [place] [address]- 4165 May, [facility] [place] [facility] [address] [id number] [place] [address]- 7438 May, [facility] [place] [facility] [address] [id number] [place] [address]- 7761 May, [facility] [address] [id number] [place] [address]- 5845 May, [facility] [place] [facility] [address] [id number] [place] [address]- 1389 May, [facility] [address] [id number], [place] [address]- 6001 Apr, [facility] [address] [id number], [place] [address]- 7330 Apr, [facility] [address] [id number], [place] [address]- 2312 Apr, [facility] [address] [id number] [place] [address] 2548 Apr, [facility] [place] [facility] [address] [id number] [place] [address]- 6096 Apr, [facility] [place] [facility] [address] [id number] [place] [address]- 8410 Apr, [facility] [address] [id number], [place] [address]- 1271 13 Apr, 2011 [facility] [place] [address] [id number] [place] [address]- 6512 08 Apr, 2011 [facility] [address] [id number] [place] [address]- 5077 Apr, [facility] [place] [facility] [address] [id number] [place] [address]- 7163 Mar, [facility] [place] [facility] [address] [id number] [place] [address]- 8621 Mar, [facility] [place] [facility] [address] [id number] [place] [address]- 4150 Mar, [facility] [place] [facility] [address] [id number] [place] [address]042 Mar, [facility] [place] [facility] [address] [facility] [id number] [place] [address]- 4318 Mar, [facility] [place] [facility] [address] [id number] [place] [address]- 4854 Feb, [facility] [place] [facility] [address] [id number] [place] [address]- 8172 Feb, [facility] [place] [facility] [address] [facility] [id number] [place] [address]- 1212 Feb, [facility] [place] [facility] [address] [id number] [place] [address]- 3410 Dec, [facility] [place] [facility] [address] [id number], [place] [address]- 5600 Nov, [facility] [place] [facility] [address] [id number] [place] [address]- 5256 Apr, [facility] [place] [facility] [address] [id number] [place] [address]- 8721 Apr, [facility] [place] [facility] [address] [facility] [id number] [place] [address]- 2909 16 Apr, 2010 [facility] [place] [facility] [address] [facility] [id number], [place] [address]- 9296 13 Apr, 2010 [facility] [address] [facility] [id number], [place] [address]- 3276 Apr, [facility] [address] [facility] [id number], [place] [address] 2546 Apr, [facility] [address] [facility] [id number], [place] [address]- 4456 Apr, [facility] [address] [facility] [id number], [place] [address]- 8868 Apr, [facility] [address] [facility] [id number], [place] [address]- 6113 Mar, [facility] [address] [facility] [id number], [place] [address]- 2586 Mar, [facility] [id number], [place] [address]- 0963 Mar, [facility] [address] [facility] [id number], [place] [address]- 6947 Mar, [facility] [address] [facility] [id number], [place] [address]- 1076 Mar, [facility] [address] [id number], [place] [address]- 3462 Mar, [facility] [address] [id number], [place] [address]- 8885 Mar, [facility] [address] [facility] [id number], [place] [address]- 2540 Mar, [facility] [address] [facility] [id number], [place] [address]- 4875 Mar, [facility] [address] [facility] [id number], [place] [address]- 1552 Mar, IMMUNIZATIONS No Known Immunizations SOCIAL HISTORY Never Assessed REASON FOR VISIT Referral Request PLAN OF CARE VITAL SIGNS MEDICATIONS Unknown [...]
--- OUTSIDE RECORDS SUMMARY | 2018-04-22 22:54 | XMS REPORT ---
Author Author CARLOS LARA [facility] Address [address] [place] [address] Care Team Providers Care Front Desk Assistant Name Role Phone CARLOS LARA Unavailable PROBLEMS Type Condition ICD9-CM Code TAK65-MB Code Onset Dates Condition Status SNOMED Code Problem Severe sleep apnea G47.30 Active 87336352 Problem Iron deficiency anemia, unspecified iron deficiency anemia type D50.9 Active 47645008 Problem Stenosis of carotid artery, unspecified laterality I65.29 Active 66825370 Problem Decreased diffusion capacity R94.2 Active 00625983 Problem Coronary artery disease involving mille lacs coronary artery of mil[place] lacs heart, angina presence unspecified I25.10 Active 5047431991950 Problem Generalized osteoarthritis M15.9 Active 383861795 Problem Aortic valve sclerosis I35.8 Active 94769094 Problem Essential hypertension I10 Active 35593806 Problem Renal osteodystrophy N25.0 Active 36148010 Problem Anxiety about health F41.8 Active 519388063 Problem 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 Active 7186396 Problem Type 2 diabetes mellitus with unspecified complications E11.8 Active 10385314 Problem Type 2 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 Active 08074383 Problem Chronic kidney disease, unspecified CKD stage N18.9 Active 200494326 Problem Pain R52 Active 56347818 Problem MCC 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.4 Active 396520393 Problem Acute anxiety F41.9 Active 56014080 Problem Inability to bear weight R26.89 Active 523538208 Problem Type 2 diabetes mellitus with diabetic polyneuropathy E11.42 Active 469014128 Problem Type 2 diabetes mellitus with foot ulcer E11.621 Active 992280829 Problem Type 2 diabetes mellitus with hyperglycemia E11.65 Active 61970354 Problem Slow transit constipation K59.01 Active 87639738 Problem Bladder spasms N32.89 Active 485052018 Problem Chronic kidney disease (CKD), stage 4 (severe) N18.4 Active 535486310 Problem Other chronic pain G89.29 Active 65183689 Problem Diarrhea, unspecified type R19.7 Active 04700722 Problem Mixed hyperlipidemia E78.2 Active 255585997 Problem Trochanteric bursitis of left hip M70.62 Active 501409990749920 Problem Anemia in other chronic diseases classified elsewhere D63.8 Active 432374143 Problem Chronic kidney disease, stage 3 (moderate) N18.3 Active 241646890 Problem Port catheter in place Z95.828 Active 644643906 Problem Transient cerebral ischemia, unspecified type G45.9 Active 615470053 Problem Hypoxemia R09.02 Active 038969572 Problem BMI 50.0-59.9, adult Z68.43 Active 740808699 ALLERGIES No Information ENCOUNTERS Encounter Location Date Diagnosis [place] [address] [address]- [address] 17 Jan, 2018 [place] [address] 66687- 6454 14 Jan, 2018 Acute anxiety F41.9 [place] [address] 88653- 5273 04 Jan, 2018 Inability to bear weight R26.89 [facility] [address] [place], [place] [id number] Dec, Low back pain M54.5 ; Other chronic pain G89.29 and Chronic kidney disease (CKD), stage 4 (severe) N18.4 [place] [address] [place] [id number] [place] [address] 26615- 0274 Dec, Type 2 diabetes mellitus with hyperglycemia E11.65 [place] [address] 07886- 6750 Dec, [facility] [address] [place] [id number] Dec, Type 2 diabetes mellitus with hyperglycemia E11.65 ; Essential hypertension I10 ; Generalized osteoarthritis M15.9 ; Mixed hyperlipidemia E78.2 ; Hypoxia R09.02 ; Port catheter in place Z95.828 ; Anemia due to acute blood loss D62 ; Chronic kidney disease, unspecified CKD stage N18.9 and Severe sleep apnea G47.30 [place] [id number] [place] [address] 92914- 5235 14 Dec, 2017 Type 2 diabetes mellitus with hyperglycemia E11.65 [facility] [address] [place] [id number] [place] [address] 06327- 9602 Dec, [facility] [address] [place] [id number] [place] [address] 99320- 5691 Dec, Type 2 diabetes mellitus with hyperglycemia E11.65 [facility] [address] [place] [id number] [place] [address] 62459- 7287 Dec, Left leg pain M79.605 [place] [address] [place] [id number] [place] [address] 55122- 3855 Nov, Slow transit constipation K59.01 [place] [address] [place] [id number] [place] [address] 80723- 0761 Nov, [facility] [address] [place] [id number] Nov, Anemia due to acute blood loss D62 [place] [address] [place] [id number] [place] [address] 86981- 6889 Nov, [place] [address] [place] [id number] [place] [address] 19750- 1609 Nov, Bladder spasms N32.89 [place] [address] [place] [id number] [place] [address] 10247- 6674 Nov, Pain R52 [facility] [address] [place] [id number] Nov, Anemia due to acute blood loss D62 [place] [address] [place] [id number] [place] [address] 25071- 4851 Nov, Pain in right hip M25.551 and Pain in left hip M25.552 [place] [address] [place] [id number] [place] [address] 11088- 5108 Nov, [place] [address] [place] [id number] [place] [address] 24168- 2981 Nov, [facility] [id number] [place] [address] 62298- 8271 Nov, [facility] [address] [place] [id number] [place] [address] 51936- 3864 Nov, [facility] [address] [place] [id number] [place] [address] 52288- 2457 Oct, [facility] [address] [place] [id number] [place] [address] 75990- 4285 Oct, [facility] [address] [place] [id number] Oct, Encounter for examination for admission to retirement Z02.2 ; Chronic kidney disease, unspecified CKD stage N18.9 ; Type 2 diabetes mellitus with unspecified complications E11.8 ; MCC 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.4 ; Essential hypertension I10 ; Hypoxia R09.02 ; Severe sleep apnea G47.30 ; Stenosis of carotid artery, unspecified laterality I65.29 ; Generalized osteoarthritis M15.9 ; Coronary artery disease involving mille lacs coronary artery of mille lacs heart, angina presence unspecified I25.10 ; Port catheter in place Z95.828 and Hemorrhoids, unspecified hemorrhoid type K64.9 [facility] [address] [place] [id number] [place] [address] 64174- 7744 Oct, [facility] [id number] [place] [address] 32910- 4697 Oct, [facility] [address] [place] [id number] [place] [address] 27218- 3955 Oct, [facility] [address] [place] [id number] [place] [address] 02735- 4996 Oct, [facility] [address] [place] [id number] [place] [address] 41319 -7744 September, BMI 50.0-59.9, adult Z68.43 [facility] [address] [place] [id number] [place] [address] 55502- 8504 September, [place] [address] [place] [id number] [place] [address] 93812- 1172 September, [place] [address] 38589- 8103 Aug, Type 2 diabetes mellitus with foot ulcer E11.621 ; Transient cerebral ischemia, unspecified type G45.9 ; Essential hypertension I10 ; Mixed hyperlipidemia E78.2 and BMI 50.0-59.9, adult Z68.43 [place] [address] [place] [id number] [place] [address] 64275- 3175 Aug, [place] [address] 54993- 7470 Jul, Anxiety about health F41.8 and Mixed hyperlipidemia E78.[address] 94913- 4012 Jul, [place] [address] 55965- 3511 Jun, [place] [address] [place] [id number] [place] [address] 92432- 7326 Jun, Type 2 diabetes mellitus with hyperglycemia E11.65 ; Type 2 diabetes mellitus with foot ulcer E11.621 ; Port catheter in place Z95.828 ; 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 ; Contact with and (suspected) exposure to potentially hazardous body fluids Z77.21 and BMI 50.0-59.9, adult Z68.43 [place] [address] [place] [id number] [place] [address] 85061- 3633 May, [address] 93046- 6719 May, Open wound of right great toe, subsequent encounter S91.101D [place] [address] [place] [id number] [place] [address] 37544- 9222 May, [place] [address] 76345- 3462 Apr, [place] [address] [address] 8949 Apr, [place] [address] [place] [id number] [place] [address] 17414- 5034 Apr, [place] [address] [place] [id number] [place] [address] 31693- 6083 Apr, Type 2 diabetes mellitus with diabetic polyneuropathy E11.42 [place] [address] [place] [id number] [place] [address] 73806- 4693 13 Apr, 2017 Open wound of right great toe, subsequent encounter S91.101D [place] [address] [place] [id number] [place] [address] 40187- 1399 08 Apr, 2017 Open wound of right great toe, subsequent encounter S91.101D ; Breast pain, left N64.4 ; Breast cancer screening Z12.31 ; Type 2 diabetes mellitus with foot ulcer E11.621 ; Essential hypertension I10 and BMI 50.0-59.9, adult Z68.43 [place] [address] [place] [id number] [place] [address] 26324- 9407 Mar, Encounter for immunization Z23 [place] [address] [place] [id number] [place] [address] 75496- 6164 Mar, [place] [address] [place] [id number] [place] [address] 66141- 2382 Mar, [place] [address] [place] [id number] [place] [address] 93593- 5125 Mar, Type 2 diabetes mellitus with diabetic polyneuropathy E11.42 ; Type 2 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 ; Type 2 diabetes mellitus with foot ulcer E11.621 ; Essential hypertension I10 ; Hypoxemia R09.02 and Generalized osteoarthritis M15.9 [place] [address] [address]- 4469 02 Mar, 2017 Chronic kidney disease, stage 3 (moderate) N18.3 ; Acute cystitis without hematuria N30.00 ; Essential hypertension I10 ; Muscle spasms of neck M62.838 ; Type 2 diabetes mellitus with diabetic polyneuropathy E11.42 and BMI 50.0-59.9, adult Z68.43 [facility] [address] [place] [id number] [place] [address] 70816- 4833 30 Feb, 2017 [facility] [address] [place] [id number] [place] [address] 76733 -0725 Feb, [facility] [address] [place] [id number] [place] [address] 61743- 5253 Feb, [facility] [address] [place] [id number] [place] [address] 33026- 1435 Feb, [facility] [address] [place] [id number] [place] [address] 99883- 4879 Feb, [facility] [address] [place] [id number] [place] [address] 31865- 2851 Feb, [facility] [address] [place] [id number] [place] [address] 97541- 6013 Feb, Mixed hyperlipidemia E78.2 [facility] [address] [place] [id number] [place] [address] 33896- 0447 Feb, [facility] [address] [place] [id number] [place] [address] 02534- 6266 Jan, [facility] [address] [place] [id number] [place] [address] 64328- 4926 14 Jan, 2017 Generalized osteoarthritis M15.9 [facility] [address] [place] [id number] [place] [address] 18231- 2607 Oct, [facility] [address] [place] [id number] [place] [address] 07000- 0720 27 Jul, 2016 [facility] [address] [place] [id number] [place] [address] 86227- 2545 13 Jul, 2016 [facility] [address] [place] [id number] [place] [address] 98271- 7462 Jul, Type 2 diabetes mellitus with hyperglycemia E11.65 ; Chronic kidney disease, stage 3 (moderate) N18.3 ; Type 2 diabetes mellitus with foot ulcer E11.621 ; Type 2 diabetes mellitus with diabetic polyneuropathy E11.42 ; Generalized osteoarthritis M15.9 ; Trochanteric bursitis of left hip M70.62 and Tinea pedis of both feet B35.3 [place] [address] [place] [id number] [place] [address] 48298- 5194 Jun, [place] [address] 23693- 7865 Apr, [place] [address] 38950- 7855 Apr, [place] [address] 06268- 1745 Mar, [place] [address] 36906- 9000 Feb, Encounter for immunization Z23 [place] [id number] [place] [address] 16489- 3340 Feb, [address] 57363- 7447 Feb, Type 2 diabetes mellitus with hyperglycemia E11.65 ; Encounter for immunization Z23 ; Diarrhea, unspecified type R19.7 ; Essential hypertension I10 ; Mixed hyperlipidemia E78.2 ; Hypoxia R09.02 ; 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 and Type 2 diabetes mellitus with foot ulcer E11.621 [place] [address] [place] [id number] [place] [address] 80260- 9033 Jan, [address] 59401- 2762 Jan, Type 2 diabetes mellitus with hyperglycemia E11.65 and Pneumonia due to infectious organism, unspecified laterality, unspecified part of lung J18.[address] 23269- 2947 Jan, [facility] [id number] [place] [address] 52022- 1866 Jan, [facility] [address] [place] [id number] [place] [address] 15328- 3898 Oct, Type 2 diabetes mellitus with hyperglycemia E11.65 ; Generalized osteoarthritis M15.9 and Chronic prescription opiate use Z79.891 [facility] [address] [place] [id number] [place] [address] 06451- 1292 September, [facility] [address] [place] [id number] [place] [address] 40283- 2956 Aug, [facility] [address] [place] [id number] [place] [address] 87802- 8710 Aug, [facility] [address] [place] [id number] [place] [address] 24594- 3549 Aug, [facility] [address] [place] [id number] [place] [address] 65352- 8381 Aug, [facility] [address] [place] [id number] [place] [address] 12510- 9257 Jun, [facility] [address] [place] [id number] [place] [address] 47418- 8457 Jun, Type 2 diabetes mellitus with hyperglycemia E11.65 ; Mixed hyperlipidemia E78.2 ; Vaginal itching L29.8 ; Neck muscle spasm M62.838 and Skin abrasion T14.8 [facility] [address] [place] [address]- 8364 Apr, [facility] [address] [place] [id number] [place] [address] 37978- 5324 Apr, [facility] [address] [place] [id number] [place] [address] 31218- 8175 Mar, [facility] [address] [place] [id number] [place] [address] 38011- 8768 Feb, [facility] [id number] [place] [address] 87617- 2129 Feb, Type 2 diabetes mellitus with hyperglycemia E11.65 ; Type 2 diabetes mellitus with foot ulcer E11.621 ; Type 2 diabetes mellitus with diabetic polyneuropathy E11.42 and Encounter for immunization Z23 [facility] [address] [place] [id number] [place] [address] 08833- 9160 Jan, Hypertension 401.9 ; Uncontrolled type 2 diabetes mellitus 250.02 ; Right shoulder pain 719.41 and Ulcer of heel and midfoot 707.14 [facility] [address] [place] [id number] [place] [address] 13160- 0487 Dec, Diabetes with other specified manifestations, type II or unspecified type, not stated as uncontrolled 250.80 ; Ulcer of heel and midfoot 707.14 ; Hypertension 401.9 ; Hip pain, left 719.45 and Acute anxiety 300.00 [facility] [address] [place] [id number] [place] [address] 34075- 8675 Nov, [facility] [address] [place] [id number] [place] [address] 79564- 4048 Nov, [facility] [address] [place] [id number] [place] [address] 92999- 7097 September, Anxiety attack 300.01 and Cellulitis 682.9 [facility] [address] [place] [id number] [place] [address] 04805- 0932 September, [facility] [address] [place] [id number] [place] [address] 36537- 4830 September, [facility] [address] [place] [id number] [place] [address] 91876- 5900 September, [facility] [address] [place] [id number] [place] [address] 80615- 0459 Aug, [facility] [address] [place] [id number] [place] [address] 63744- 3962 Aug, [facility] [address] [place] [address]- 7574 13 Jul, 2014 [facility] [place] [facility] [address] [id number] [place] [address]- 9586 13 Jul, 2014 [facility] [place] [facility] [address] [id number] [place] [address]- 0080 05 Jul, 2014 [facility] [place] [facility] [address] [id number] [place] [address]- 8652 13 May, 2014 [facility] [place] [facility] [address] [id number] [place] [address]- 2633 13 May, 2014 [facility] [place] [facility] [address] [id number] [place] [address]- 2079 11 Mar, 2014 [facility] [place] [facility] [address] [id number] [place] [address]- 5784 Mar, [facility] [place] [facility] [address] [id number] [place] [address]- 7556 07 Mar, 2014 [facility] [place] [facility] [address] [id number] [place] [address]- 1347 07 Mar, 2014 [facility] [place] [facility] [address] [id number] [place] [address]- 0195 Mar, [facility] [place] [facility] [address] [facility] [id number] [place] [address]- 6787 Mar, [facility] [place] [facility] [address] [id number] [place] [address]- 2114 07 Mar, 2014 [facility] [place] [facility] [address] [id number] [address]- 3298 14 Feb, 2014 [facility] [place] [facility] [address] [id number] [place] [address]- 8847 14 Feb, 2014 [facility] [place] [facility] [address] [id number] [place] [address]- 7669 30 Jan, 2014 [facility] [place] [facility] [address] [id number] [place] [address]- 5927 30 Jan, 2014 [facility] [place] [facility] [address] [id number] [place] [address] 2542 26 Sep, 2013 [facility] [place] [facility] [address] [id number] [place] [address] 2546 26 Sep, 2013 [facility] [place] [facility] [address] [id number] [place] [address] 2542 25 Sep, 2013 [facility] [place] [facility] [address] [id number] [place] [address] 2547 25 Sep, 2013 [facility] [place] [facility] [address] [id number] [place] [address] 2549 25 Sep, 2013 [facility] [place] [facility] [address] [id number] [place] [address]- 1089 25 Sep, 2013 [facility] [place] [facility] [address] [id number] [place] [address]- 9602 18 Sep, 2013 [facility] [place] [facility] [address] [id number] [place] [address]- 3306 18 Sep, 2013 [facility] [place] [facility] [address] [id number] [place] [address]- 0570 06 Sep, 2013 [facility] [place] [facility] [address] [id number] [place] [address]- 2547 06 Sep, 2013 [facility] [place] [facility] [address] [id number] [place] [address] 2543 05 Sep, 2013 [facility] [place] [facility] [address] [id number] [place] [address] 2548 05 Sep, 2013 [facility] [place] [facility] [address] [id number] [place] [address] 2542 05 Sep, 2013 [facility] [place] [facility] [address] [id number] [place] [address] 2546 05 Sep, 2013 [facility] [place] [facility] [address] [id number] [place] [address] 254 05 Sep, 2013 [facility] [place] [facility] [address] [id number] [place] [address]- 8332 Jan, [facility] [place] [facility] [address] [id number] [place] [address]- 8996 Dec, [facility] [place] [facility] [address] [id number] [place] [address]- 4907 Dec, [facility] [place] [facility] [address] [id number] [place] [address]- 6894 Dec, [facility] [place] [facility] [address] [id number] [place] [address]- 6699 Dec, [facility] [place] [facility] [address] [id number] [place] [address]- 4818 Dec, [facility] [place] [facility] [address] [id number] [place] [address]- 1919 Dec, [facility] [place] [facility] [address] [id number] [place] [address]- 8056 Dec, [facility] [place] [facility] [address] [id number] [place] [address]- 4856 Dec, [facility] [place] [facility] [address] [id number] [place] [address]- 9056 Dec, [facility] [place] [facility] [address] [id number] [place] [address]- 0653 Dec, [facility] [place] [facility] [address] [id number] [place] [address]- 3455 Nov, [facility] [place] [facility] [address] [id number] [place] [address]- 7937 Nov, [facility] [place] [facility] [address] [id number] [place] [address]- 7378 Nov, [facility] [place] [facility] [address] [id number] [place] [address]- 9080 Nov, [facility] [place] [facility] [address] [id number] [place] [address]- 3998 Nov, [facility] [place] [facility] [address] [id number] [place] [address]- 4516 Nov, [facility] [place] [facility] [address] [id number] [place] [address]- 5360 Oct, [facility] [place] [facility] [address] [id number] [place] [address]- 5647 Oct, [facility] [place] [facility] [address] [id number] [place] [address]- 0345 Oct, [facility] [place] [facility] [address] [id number] [place] [address]- 9962 Oct, [facility] [place] [facility] [address] [id number] [place] [address] Oct, [facility] [place] [facility] [address] [id number] [place] [address] Oct, [facility] [place] [facility] [address] [id number] [place] [address] Oct, [facility] [place] [facility] [address] [id number] [place] [address] Oct, [facility] [place] [facility] [address] [id number] [place] [address] Oct, [facility] [place] [facility] [address] [id number] [place] [address] Oct, [facility] [place] [facility] [address] [id number] [place] [address] Oct, [facility] [place] [facility] [address] [id number] [place] [address] Oct, [facility] [place] [facility] [address] [id number] [place] [address] September, [facility] [place] [facility] [address] [id number] [place] [address] September, [facility] [place] [facility] [address] [id number] [place] [address] September, [facility] [place] [facility] [address] [id number] [place] [address] Aug, [facility] [place] [facility] [address] [id number] [place] [address] Aug, [facility] [place] [facility] [address] [id number] [place] [address] Jul, [facility] [place] [facility] [address] [id number] [place] [address] Jul, [facility] [place] [facility] [address] [id number] [place] [address]- [address] Jul, [facility] [place] [facility] [address] [id number] [place] [address] Jul, [facility] [place] [facility] [address] [id number] [place] [address] Jul, [facility] [place] [facility] [address] [id number] [place] [address] Jul, [facility] [place] [facility] [address] [id number] [place] [address] Jul, [facility] [place] [facility] [address] [id number] [place] [address] Jul, [facility] [place] [facility] [address] [id number] [place] [address]- [address] Jul, [facility] [place] [facility] [address] [id number] [place] [address] Jul, [facility] [place] [facility] [address] [id number] [place] [address] Jun, [facility] [place] [facility] [address] [id number] [place] [address] Jun, [facility] [place] [facility] [address] [address] [id number] [place] [address] Jun, [facility] [place] [facility] [address] [id number] [place] [address] Jun, [facility] [address] [id number] [place] [address] 89[address] May, [facility] [address] [id number] [place] [address] 8[address] May, [facility] [address] [id number] [place] [address]- 8657 Apr, [facility] [place] [facility] [address] [id number] [place] [address]- 0116 Apr, [facility] [address] [id number] [place] [address] Apr, [facility] [address] [id number] [place] [address] 5063 Apr, [facility] [address] [id number] [place] [address] 3941 Apr, [facility] [address] [id number] [place] [address]- 3281 Apr, [facility] [address] [id number] [place] [address]- 3673 Apr, [facility] [address] [facility] [id number] [place] [address]- 4622 Apr, [facility] [address] [id number] [place] [address] 6716 Mar, [facility] [place] [facility] [address] [id number] [place] [address]- 1852 Mar, [facility] [place] [facility] [address] [id number] [place] [address]- 9699 Mar, [facility] [place] [facility] [address] [id number] [place] [address]- 0562 Mar, [facility] [place] [facility] [address] [facility] [id number], [place] [address]- 68[address] Mar, [facility] [place] [facility] [address] [id number] [place] [address]- 9393 08 Mar, 2013 [facility] [place] [facility] [address] [id number] [place] [address]- 5785 30 Feb, 2013 [facility] [place] [facility] [address] [id number] [place] [address]- 3653 30 Feb, 2013 [facility] [place] [facility] [address] [id number] [place] [address]- 3068 Feb, [facility] [place] [facility] [address] [id number] [place] [address]- 5508 18 Feb, 2013 [facility] [place] [facility] [address] [id number] [place] [address]- 8392 Feb, [facility] [place] [facility] [address] [id number] [place] [address]- 2588 Feb, [facility] [place] [facility] [address] [id number] [place] [address]- 4594 04 Feb, 2013 [facility] [place] [facility] [address] [id number] [place] [address]- 3988 27 Jan, 2013 [facility] [place] [facility] [address] [id number] [place] [address]- 4548 26 Jan, 2013 [facility] [place] [facility] [address] [id number] [place] [address]- 0914 19 Jan, 2013 [facility] [place] [facility] [address] [id number] [place] [address]- 4301 05 Jan, 2013 [facility] [place] [facility] [address] [id number] [place] [address]- 1268 Dec, [facility] [place] [facility] [address] [id number] [place] [address]- 8153 Dec, [facility] [place] [facility] [address] [id number] [place] [address]- 3726 08 Dec, 2012 [facility] [place] [facility] [address] [id number] [place] [address]- 3513 Nov, [facility] [place] [facility] [address] [id number] [place] [address]- 3413 Nov, [facility] [place] [facility] [address] [id number] [place] [address]- 6956 16 Nov, 2012 [facility] [place] [facility] [address] [id number] [place] [address]- 1513 Nov, [facility] [place] [facility] [address] [id number] [place] [address]- 1434 Nov, [facility] [place] [facility] [address] [id number] [place] [address]- 9931 Nov, [facility] [place] [facility] [address] [id number] [place] [address]- 3907 Oct, [facility] [place] [facility] [address] [id number] [place] [address]- 5048 Oct, [facility] [place] [facility] [address] [id number] [place] [address]- 9639 Oct, [facility] [place] [facility] [address] [id number] [place] [address]- 9725 Oct, [facility] [place] [facility] [address] [id number] [place] [address]- 9908 Oct, [facility] [place] [facility] [address] [id number] [place] [address]- 3911 Oct, [facility] [place] [facility] [address] [id number] [place] [address]- 6844 September, [facility] [place] [facility] [address] [id number] [place] [address]- 3058 September, [facility] [place] [facility] [address] [id number] [place] [address]- 3793 September, [facility] [place] [facility] [address] [id number] [place] [address] 1976 September, [facility] [place] [facility] [address] [id number] [place] [address]- 3804 23 Aug, 2012 [facility] [address] [id number] [place] [address]- 5284 03 Aug, 2012 [facility] [address] [id number] [place] [address]- 2488 28 Jul, 2012 [facility] [address] [id number] [place] [address]- 1647 21 Jul, [address] [facility] [address] [id number] [place] [address]- 2506 18 Jul, 2012 [facility] [address] [id number] [place] [address]- 4865 15 Jul, 2012 [facility] [address] [id number] [place] [address]- 2756 13 Jul, 2012 [facility] [address] [id number] [place] [address]- 0536 08 Jul, 2012 [facility] [address] [id number] [place] [address]- 8149 20 Jun, 2012 [facility] [address] [id number] [place] [address]- 9591 13 Jun, 2012 [facility] [address] [id number] [place] [address]- 2722 17 May, 2012 [facility] [address] [id number] [place] [address]- 2224 May, [facility] [address] [id number] [place] [address]- 4661 18 Apr, 2012 [facility] [address] [id number] [place] [address]- 5087 18 Apr, 2012 [facility] [address] [id number] [place] [address]- 8277 13 Apr, 2012 [facility] [address] [id number] [place] [address]- 9266 13 Apr, 2012 [facility] [place] [facility] [address] [id number] [place] [address]- 2197 10 Apr, 2012 [facility] [place] [facility] [address] [id number] [place] [address]- 6776 Apr, [facility] [place] [facility] [address] [id number] [place] [address] Apr, [facility] [place] [facility] [address] [id number] [place] [address]- 7989 Apr, [facility] [place] [facility] [address] [id number] [place] [address]- 4978 Apr, [facility] [place] [facility] [address] [id number] [place] [address]- 7649 Apr, [facility] [place] [facility] [address] [id number] [place] [address]- 2618 Apr, [facility] [place] [facility] [address] [id number] [place] [address]- 3268 Apr, [facility] [place] [facility] [address] [id number] [place] [address]- 1695 Apr, [facility] [place] [facility] [address] [id number] [place] [address]- 5362 Apr, [facility] [place] [facility] [address] [id number], [place] [address]- 4834 Apr, [facility] [place] [facility] [address] [id number], [place] [address]- 5267 Apr, [facility] [place] [facility] [address] [id number] [place] [address]- 0503 Mar, [facility] [place] [facility] [address] [id number] [place] [address]- 5131 Mar, [facility] [place] [facility] [address] [facility] [id number], [place] [address]- 1289 16 Mar, 2012 [facility] [place] [facility] [address] [id number], [place] [address]- 5009 Mar, [facility] [place] [facility] [address] [id number] [place] [address]- 0291 Mar, [facility] [place] [facility] [address] [facility] [id number], [place] [address]- 9415 Mar, [facility] [place] [facility] [address] [facility] [id number] [place] [address]- 3922 Mar, [facility] [place] [facility] [address] [facility] [id number] [place] [address]- 6275 Mar, [facility] [place] [facility] [address] [facility] [id number] [place] [address], [place] [address]- 2803 Mar, [facility] [place] [facility] [address] [facility] [id number] [place] [address]- 3293 Mar, [facility] [place] [facility] [id number], [place] [address]- 2570 Feb, [facility] [place] [facility] [address] [facility] [id number] [place] [address]- 6643 Feb, [facility] [place] [facility] [address] [id number] [place] [address]- 6787 Feb, [facility] [place] [facility] [address] [id number], [place] [address]- 4555 Feb, [facility] [place] [facility] [address] [facility] [id number], [place] [address]- 5900 Feb, [facility] [place] [facility] [address] [facility] [id number], [place] [address]- 2147 Feb, [facility] [place] [facility] [address] [facility] [id number], [place] [address]- 6785 Jan, [facility] [place] [facility] [address] [facility] [id number], [place] [address]- 9868 Dec, [facility] [place] [facility] [address] [id number], [place] [address]- 8316 Dec, [facility] [place] [facility] [address] [id number] [place] [address] 2546 Dec, [facility] [place] [facility] [address] [id number] [place] [address]- 7896 Dec, [facility] [place] [facility] [address] [id number] [place] [address]- 2546 Nov, [facility] [place] [facility] [address] [id number] [place] [address]- 4776 Nov, [facility] [place] [facility] [address] [id number] [place] [address]- 2542 Nov, [facility] [place] [facility] [address] [id number] [place] [address]- 8746 Nov, [facility] [place] [facility] [address] [id number] [place] [address]- 4706 Oct, [facility] [place] [facility] [address] [id number] [place] [address]- 6927 Oct, [facility] [place] [facility] [address] [id number] [place] [address]- 4238 Oct, [facility] [place] [facility] [address] [id number] [place] [address]- 7064 Oct, [facility] [place] [facility] [address] [id number] [place] [address]- 9231 Oct, [facility] [place] [facility] [address] [id number] [place] [address]- 9156 September, [facility] [place] [facility] [address] [id number] [place] [address]- 5468 September, [facility] [place] [facility] [address] [id number] [place] [address]- 9746 September, [facility] [place] [facility] [address] [id number] [place] [address]- 5216 September, [facility] [place] [facility] [address] [id number] [place] [address]- 1947 September, [facility] [address] [id number] [place] [address]- 2979 September, [facility] [place] [facility] [address] [id number] [place] [address]- 6133 September, [facility] [address] [id number] [place] [address]- 2706 September, [facility] [address] [id number] [place] [address]- 4029 Aug, [facility] [address] [id number] [place] [address]- 7935 Aug, [facility] [address] [id number] [place] [address]- 4531 Aug, [facility] [address] [id number] [place] [address]- 8879 Aug, [facility] [address] [id number] [place] [address]- 4613 Aug, [facility] [address] [id number] [place] [address]- 9674 Aug, [facility] [place] [facility] [address] [id number] [place] [address]- 1660 Aug, [facility] [place] [facility] [address] [id number] [place] [address]- 5524 Aug, [facility] [place] [facility] [address] [id number], [place] [address]- 6930 Aug, [facility] [place] [facility] [address] [id number] [place] [address]- 4606 Aug, [facility] [place] [facility] [address] [id number] [place] [address]- 2934 Aug, [facility] [place] [facility] [address] [id number] [place] [address]- 1141 Aug, [facility] [place] [facility] [address] [id number] [place] [address]- 8798 29 Jul, 2011 [facility] [place] [facility] [address] [id number] [place] [address]- 4386 28 Jul, 2011 [facility] [place] [facility] [address] [id number] [place] [address] 2546 27 Jul, 2011 [facility] [place] [facility] [address] [id number] [place] [address]- 4776 23 Jul, 2011 [facility] [place] [facility] [address] [id number] [place] [address] 2546 21 Jul, 2011 [facility] [place] [facility] [address] [id number] [place] [address]- 0886 21 Jul, 2011 [facility] [place] [facility] [address] [id number] [place] [address]- 6176 14 Jul, 2011 [facility] [place] [facility] [address] [id number] [place] [address]- 8406 13 Jul, 2011 [facility] [place] [facility] [address] [id number] [place] [address]- 0148 07 Jul, 2011 [facility] [place] [facility] [address] [id number] [place] [address]- 6927 24 Jun, 2011 [facility] [place] [facility] [address] [facility] [id number] [place] [address]- 3391 23 Jun, 2011 [facility] [place] [facility] [address] [id number] [place] [address] 2546 23 Jun, 2011 [facility] [place] [facility] [address] [id number] [place] [address] 2546 14 Jun, 2011 [facility] [place] [facility] [address] [id number] [place] [address]- 9356 02 Jun, 2011 [facility] [place] [facility] [address] [id number] [place] [address] 2546 02 Jun, 2011 [facility] [place] [facility] [address] [id number] [place] [address] 2546 Jun, [facility] [address] [id number] [place] [address]- 5775 May, [facility] [place] [facility] [address] [id number] [place] [address]- 1752 May, [facility] [place] [facility] [address] [id number] [place] [address]- 9840 May, [facility] [place] [facility] [address] [id number] [place] [address]- 3051 May, [facility] [place] [facility] [address] [id number] [place] [address]- 7261 May, [facility] [place] [facility] [address] [id number] [place] [address]- 9395 May, [facility] [place] [facility] [address] [id number] [place] [address]- 5234 May, [facility] [place] [facility] [address] [id number] [place] [address]- 3996 Apr, [facility] [place] [facility] [address] [id number] [place] [address]- 2799 Apr, [facility] [place] [facility] [address] [id number] [place] [address]- 0294 Apr, [facility] [place] [facility] [address] [id number] [place] [address]- 9531 Apr, [facility] [place] [facility] [address] [id number], [place] [address]- 2963 Apr, [facility] [place] [facility] [address] [id number] [place] [address]- 3689 Apr, [facility] [place] [facility] [address] [id number] [place] [address]- 6944 13 Apr, 2011 [facility] [place] [facility] [address] [id number] [place] [address]- 2206 08 Apr, 2011 [facility] [place] [facility] [address] [id number] [place] [address]- 7194 05 Apr, 2011 [facility] [place] [facility] [address] [id number] [place] [address]- 4014 Mar, [facility] [place] [facility] [address] [id number] [place] [address]- 8996 Mar, [facility] [place] [facility] [address] [id number] [place] [address]- 6696 Mar, [facility] [place] [facility] [address] [id number] [place] [address]- 2173 Mar, [facility] [place] [facility] [address] [id number] [place] [address]- 9885 Mar, [facility] [place] [facility] [address] [id number] [place] [address]- 1579 Feb, [facility] [place] [facility] [address] [id number] [place] [address]- 5646 Feb, [facility] [place] [facility] [address] [id number] [place] [address]- 9841 Feb, [facility] [place] [facility] [address] [id number] [place] [address]- 9872 Dec, [facility] [place] [facility] [address] [id number] [place] [address]- 8935 Nov, [facility] [place] [facility] [address] [id number] [place] [address]- 7200 Apr, [facility] [place] [facility] [address] [id number] [place] [address]- 4097 20 Apr, 2010 [facility] [place] [facility] [address] [id number] [place] [address]- 0402 16 Apr, 2010 [facility] [place] [facility] [address] [id number] [place] [address]- 0506 13 Apr, 2010 [facility] [place] [facility] [address] [id number] [place] [address]- 1941 09 Apr, 2010 [facility] [id number], [place] [address]- 5119 Apr, [facility] [id number], [place] [address]- 7905 Apr, [facility] [id number], [place] [address]- 8815 Apr, [facility] [id number] [place] [address] 92481- 4557 Mar, [facility] [address] [facility] [id number], [place] [address]- 7756 Mar, [facility] [id number] [place] [address] 31330- 3388 Mar, [facility] [id number] [place] [address] 15819- 7788 Mar, [facility] [id number] [place] [address] 91567- 6793 Mar, [facility] [id number], [place] [address]- 6425 Mar, [facility] [id number] [place] [address] 94786- 6570 Mar, [facility] [id number], [place] [address]- 7091 Mar, [facility] [address], [place] [address]- 7866 Mar, [facility] [address] [id number], [place] [address]- 2014 Mar, IMMUNIZATIONS No Known Immunizations SOCIAL HISTORY Never Assessed REASON FOR VISIT Request for meds PLAN OF CARE VITAL SIGNS MEDICATIONS Medication Instructions Dosage Frequency Start Date End Date Duration Status Ativan 0.5 MG Orally one time 1 tablet 30 min before appt Jan, Active RESULTS No Results PROCEDURES No Known [...]
--- OUTSIDE RECORDS SUMMARY | 2018-04-22 22:54 | XMS REPORT ---
Author Author CARLOS LARA [facility] Address [address] [place] [address] Care Team Providers Care Diesel Engine Assembler Name Role Phone CARLOS LARA Unavailable PROBLEMS Type Condition ICD9-CM Code JUG01-IT Code Onset Dates Condition Status SNOMED Code Problem Severe sleep apnea G47.30 Active 87148744 Problem Iron deficiency anemia, unspecified iron deficiency anemia type D50.9 Active 40892752 Problem Stenosis of carotid artery, unspecified laterality I65.29 Active 81677296 Problem Decreased diffusion capacity R94.2 Active 74975582 Problem Coronary artery disease involving hoopa coronary artery of hoopa heart, angina presence unspecified I25.10 Active 1735149750210 Problem Generalized osteoarthritis M15.9 Active 534543502 Problem Aortic valve sclerosis I35.8 Active 22037860 Problem Essential hypertension I10 Active 86814910 Problem Renal osteodystrophy N25.0 Active 86962600 Problem Anxiety about health F41.8 Active 529430734 Problem 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 Active 3747619 Problem Type 2 diabetes mellitus with unspecified complications E11.8 Active 78993471 Problem Type 2 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 Active 59443080 Problem Chronic kidney disease, unspecified CKD stage N18.9 Active 807115123 Problem Pain R52 Active 86268902 Problem shelter 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.4 Active 939067216 Problem Acute anxiety F41.9 Active 35450375 Problem Inability to bear weight R26.89 Active 262401417 Problem Type 2 diabetes mellitus with diabetic polyneuropathy E11.42 Active 176305969 Problem Type 2 diabetes mellitus with foot ulcer E11.621 Active 398328323 Problem Type 2 diabetes mellitus with hyperglycemia E11.65 Active 80703602 Problem Slow transit constipation K59.01 Active 24304477 Problem Bladder spasms N32.89 Active 379438680 Problem Chronic kidney disease (CKD), stage 4 (severe) N18.4 Active 944338704 Problem Other chronic pain G89.29 Active 16993054 Problem Diarrhea, unspecified type R19.7 Active 43233436 Problem Mixed hyperlipidemia E78.2 Active 305118844 Problem Trochanteric bursitis of left hip M70.62 Active 848135134866987 Problem Anemia in other chronic diseases classified elsewhere D63.8 Active 439529009 Problem Chronic kidney disease, stage 3 (moderate) N18.3 Active 865521254 Problem Port catheter in place Z95.828 Active 081618978 Problem Transient cerebral ischemia, unspecified type G45.9 Active 718347027 Problem Hypoxemia R09.02 Active 082222656 Problem BMI 50.0-59.9, adult Z68.43 Active 506746333 ALLERGIES No Information ENCOUNTERS Encounter Location Date Diagnosis [place] [address] [address] 17 Jan, 2018 [place] [address] 26[address]- 4566 14 Jan, 2018 Acute anxiety F41.9 [place] [address] 18332- 6[address] 04 Jan, 2018 Inability to bear weight R26.89 [facility] [address] [place] [id number] Dec, Low back pain M54.5 ; Other chronic pain G89.29 and Chronic kidney disease (CKD), stage 4 (severe) N18.4 [place] [address] [place] [id number] [place] [address] 11123- 1411 Dec, Type 2 diabetes mellitus with hyperglycemia E11.65 [place] [address] 28276- 6642 Dec, [facility] [address] [place] [id number] Dec, Type 2 diabetes mellitus with hyperglycemia E11.65 ; Essential hypertension I10 ; Generalized osteoarthritis M15.9 ; Mixed hyperlipidemia E78.2 ; Hypoxia R09.02 ; Port catheter in place Z95.828 ; Anemia due to acute blood loss D62 ; Chronic kidney disease, unspecified CKD stage N18.9 and Severe sleep apnea G47.30 [place] [id number] [place] [address] 46067- 2184 14 Dec, 2017 Type 2 diabetes mellitus with hyperglycemia E11.65 [facility] [address] [place] [id number] [place] [address] 91830- 6375 Dec, [facility] [address] [place] [id number] [place] [address] 05038- 5957 Dec, Type 2 diabetes mellitus with hyperglycemia E11.65 [facility] [address] [place] [id number] [place] [address] 39802- 2722 Dec, Left leg pain M79.605 [place] [address] [place] [id number] [place] [address] 73025- 5673 Nov, Slow transit constipation K59.01 [place] [address] [place] [id number] [place] [address] 71276- 0136 Nov, [facility] [address] [place] [id number] Nov, Anemia due to acute blood loss D62 [place] [address] [place] [id number] [place] [address] 18119- 8585 Nov, [place] [address] [place] [id number] [place] [address] 50780- 4295 Nov, Bladder spasms N32.89 [place] [address] [place] [id number] [place] [address] 16925- 3804 Nov, Pain R52 [facility] [address] [place] [id number] Nov, Anemia due to acute blood loss D62 [place] [address] [place] [id number] [place] [address] 83890- 1779 Nov, Pain in right hip M25.551 and Pain in left hip M25.552 [place] [address] [place] [id number] [place] [address] 11519- 3620 Nov, [place] [address] [place] [id number] [place] [address] 41901- 2575 Nov, [facility] [id number] [place] [address] 33631- 2594 Nov, [facility] [address] [place] [id number] [place] [address] 50396- 7396 Nov, [facility] [address] [place] [id number] [place] [address] 61016- 4881 Oct, [facility] [address] [place] [id number] [place] [address] 99569- 0642 Oct, [facility] [address] [place] [id number] Oct, Encounter for examination for admission to assisted Z02.2 ; Chronic kidney disease, unspecified CKD stage N18.9 ; Type 2 diabetes mellitus with unspecified complications E11.8 ; shelter 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.4 ; Essential hypertension I10 ; Hypoxia R09.02 ; Severe sleep apnea G47.30 ; Stenosis of carotid artery, unspecified laterality I65.29 ; Generalized osteoarthritis M15.9 ; Coronary artery disease involving hoopa coronary artery of hoopa heart, angina presence unspecified I25.10 ; Port catheter in place Z95.828 and Hemorrhoids, unspecified hemorrhoid type K64.9 [facility] [address] [place] [id number] [place] [address] 94209- 9238 Oct, [facility] [id number] [place] [address] 45481- 9718 Oct, [facility] [address] [place] [id number] [place] [address] 16995- 7980 Oct, [facility] [address] [place] [id number] [place] [address] 05773- 4323 Oct, [facility] [address] [place] [id number] [place] [address] 85121 -1775 September, BMI 50.0-59.9, adult Z68.43 [facility] [address] [place] [id number] [place] [address] 75558- 0736 September, [place] [address] [place] [id number] [place] [address] 12177- 3674 September, [place] [address] 53708- 9426 Aug, Type 2 diabetes mellitus with foot ulcer E11.621 ; Transient cerebral ischemia, unspecified type G45.9 ; Essential hypertension I10 ; Mixed hyperlipidemia E78.2 and BMI 50.0-59.9, adult Z68.43 [place] [address] [place] [id number] [place] [address] 20888- 6595 Aug, [place] [address] 10764- 3857 Jul, Anxiety about health F41.8 and Mixed hyperlipidemia E78.[address] 64863- 9296 Jul, [place] [address] 18017- 5540 Jun, [place] [address] [place] [id number] [place] [address] 78771- 7462 Jun, Type 2 diabetes mellitus with hyperglycemia E11.65 ; Type 2 diabetes mellitus with foot ulcer E11.621 ; Port catheter in place Z95.828 ; 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 ; Contact with and (suspected) exposure to potentially hazardous body fluids Z77.21 and BMI 50.0-59.9, adult Z68.43 [place] [address] [place] [id number] [place] [address] 24562- 2473 May, [address] 76419- 2748 May, Open wound of right great toe, subsequent encounter S91.101D [place] [address] [place] [id number] [place] [address] 28867- 9653 May, [place] [address] 70978- 8606 Apr, [place] [address] [address]- 4599 Apr, [place] [address] [place] [id number] [place] [address] 34715- 6645 Apr, [place] [address] [place] [id number] [place] [address] 18151- 1347 Apr, Type 2 diabetes mellitus with diabetic polyneuropathy E11.42 [place] [address] [place] [id number] [place] [address] 92744- 3996 13 Apr, 2017 Open wound of right great toe, subsequent encounter S91.101D [place] [address] [place] [id number] [place] [address] 38078- 7606 08 Apr, 2017 Open wound of right great toe, subsequent encounter S91.101D ; Breast pain, left N64.4 ; Breast cancer screening Z12.31 ; Type 2 diabetes mellitus with foot ulcer E11.621 ; Essential hypertension I10 and BMI 50.0-59.9, adult Z68.43 [place] [address] [place] [id number] [place] [address] 97310- 7845 Mar, Encounter for immunization Z23 [place] [address] [place] [id number] [place] [address] 79662- 9815 Mar, [place] [address] [place] [id number] [place] [address] 87796- 2743 Mar, [place] [address] [place] [id number] [place] [address] 56182- 1442 Mar, Type 2 diabetes mellitus with diabetic polyneuropathy E11.42 ; Type 2 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 ; Type 2 diabetes mellitus with foot ulcer E11.621 ; Essential hypertension I10 ; Hypoxemia R09.02 and Generalized osteoarthritis M15.9 [place] [address] [address] 02 Mar, 2017 Chronic kidney disease, stage 3 (moderate) N18.3 ; Acute cystitis without hematuria N30.00 ; Essential hypertension I10 ; Muscle spasms of neck M62.838 ; Type 2 diabetes mellitus with diabetic polyneuropathy E11.42 and BMI 50.0-59.9, adult Z68.43 [facility] [address] [place] [id number] [place] [address] 30272- 9130 30 Feb, 2017 [facility] [address] [place] [id number] [place] [address] 62754 -4641 Feb, [facility] [address] [place] [id number] [place] [address] 91289- 9711 Feb, [facility] [address] [place] [id number] [place] [address] 41782- 1203 Feb, [facility] [address] [place] [id number] [place] [address] 90402- 2220 Feb, [facility] [address] [place] [id number] [place] [address] 64776- 4807 Feb, [facility] [address] [place] [id number] [place] [address] 00233- 3238 Feb, Mixed hyperlipidemia E78.2 [facility] [address] [place] [id number] [place] [address] 78615- 2656 Feb, [facility] [address] [place] [id number] [place] [address] 81407- 2495 Jan, [facility] [address] [place] [id number] [place] [address] 29297- 7916 14 Jan, 2017 Generalized osteoarthritis M15.9 [facility] [address] [place] [id number] [place] [address] 80249- 3179 Oct, [facility] [address] [place] [id number] [place] [address] 77926- 4646 27 Jul, 2016 [facility] [address] [place] [id number] [place] [address] 48080- 2545 13 Jul, 2016 [facility] [address] [place] [id number] [place] [address] 45614- 0707 Jul, Type 2 diabetes mellitus with hyperglycemia E11.65 ; Chronic kidney disease, stage 3 (moderate) N18.3 ; Type 2 diabetes mellitus with foot ulcer E11.621 ; Type 2 diabetes mellitus with diabetic polyneuropathy E11.42 ; Generalized osteoarthritis M15.9 ; Trochanteric bursitis of left hip M70.62 and Tinea pedis of both feet B35.3 [place] [address] [place] [id number] [place] [address] 11301- 3290 Jun, [place] [address] 87304- 1197 Apr, [place] [address] 06022- 1497 Apr, [place] [address] 09229- 5414 Mar, [place] [address] 68489- 8110 Feb, Encounter for immunization Z23 [place] [id number] [place] [address] 04321- 0914 Feb, [address] 90545- 2203 Feb, Type 2 diabetes mellitus with hyperglycemia E11.65 ; Encounter for immunization Z23 ; Diarrhea, unspecified type R19.7 ; Essential hypertension I10 ; Mixed hyperlipidemia E78.2 ; Hypoxia R09.02 ; 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 and Type 2 diabetes mellitus with foot ulcer E11.621 [place] [address] [place] [id number] [place] [address] 54654- 6596 Jan, [address] 03700- 8772 Jan, Type 2 diabetes mellitus with hyperglycemia E11.65 and Pneumonia due to infectious organism, unspecified laterality, unspecified part of lung J18.[address] 76317- 9443 Jan, [facility] [address] [place] [address] 15242- 0134 Jan, [facility] [address] [place] [id number] [place] [address] 96350- 7463 Oct, Type 2 diabetes mellitus with hyperglycemia E11.65 ; Generalized osteoarthritis M15.9 and Chronic prescription opiate use Z79.891 [facility] [address] [place] [id number] [place] [address] 05223- 0884 September, [facility] [address] [place] [id number] [place] [address] 61796- 1128 Aug, [facility] [address] [place] [id number] [place] [address] 97042- 0377 Aug, [facility] [address] [place] [id number] [place] [address] 73324- 6867 Aug, [facility] [address] [place] [id number] [place] [address] 70723- 0975 Aug, [facility] [address] [place] [id number] [place] [address] 05635- 3167 Jun, [facility] [address] [place] [id number] [place] [address] 92399- 9199 Jun, Type 2 diabetes mellitus with hyperglycemia E11.65 ; Mixed hyperlipidemia E78.2 ; Vaginal itching L29.8 ; Neck muscle spasm M62.838 and Skin abrasion T14.8 [facility] [address] [address]- 9175 Apr, [facility] [address] [place] [id number] [place] [address] 98205- 6741 Apr, [facility] [address] [place] [id number] [place] [address] 96574- 1590 Mar, [facility] [address] [place] [id number] [place] [address] 44129- 6034 Feb, [facility] [address] [place] [address] 41023- 5634 Feb, Type 2 diabetes mellitus with hyperglycemia E11.65 ; Type 2 diabetes mellitus with foot ulcer E11.621 ; Type 2 diabetes mellitus with diabetic polyneuropathy E11.42 and Encounter for immunization Z23 [facility] [address] [place] [id number] [place] [address] 86781- 0288 Jan, Hypertension 401.9 ; Uncontrolled type 2 diabetes mellitus 250.02 ; Right shoulder pain 719.41 and Ulcer of heel and midfoot 707.14 [facility] [address] [place] [id number] [place] [address] 54075- 2878 Dec, Diabetes with other specified manifestations, type II or unspecified type, not stated as uncontrolled 250.80 ; Ulcer of heel and midfoot 707.14 ; Hypertension 401.9 ; Hip pain, left 719.45 and Acute anxiety 300.00 [facility] [address] [place] [id number] [place] [address] 12991- 9893 Nov, [facility] [address] [place] [id number] [place] [address] 21451- 2238 Nov, [facility] [address] [place] [id number] [place] [address] 02701- 0913 September, Anxiety attack 300.01 and Cellulitis 682.9 [facility] [address] [place] [id number] [place] [address] 75588- 9621 September, [facility] [address] [place] [id number] [place] [address] 56886- 4472 September, [facility] [address] [place] [id number] [place] [address] 59077- 3647 September, [facility] [address] [place] [id number] [place] [address] 32183- 6190 Aug, [facility] [address] [place] [id number] [place] [address] 15394- 6453 Aug, [facility] [address] [place] [address]- 6972 13 Jul, 2014 [facility] [place] [facility] [address] [id number] [place] [address]- 0484 13 Jul, 2014 [facility] [place] [facility] [address] [id number] [place] [address]- 5670 05 Jul, 2014 [facility] [place] [facility] [address] [id number] [place] [address]- 3430 13 May, 2014 [facility] [place] [facility] [address] [id number] [place] [address]- 6813 13 May, 2014 [facility] [place] [facility] [address] [id number] [place] [address]- 3716 11 Mar, 2014 [facility] [place] [facility] [address] [id number] [place] [address]- 7824 Mar, [facility] [place] [facility] [address] [id number] [place] [address]- 3107 07 Mar, 2014 [facility] [place] [facility] [address] [id number] [place] [address]- 5649 07 Mar, 2014 [facility] [place] [facility] [address] [id number] [place] [address]- 4291 Mar, [facility] [place] [facility] [address] [facility] [id number] [place] [address]- 7495 Mar, [facility] [place] [facility] [address] [id number] [place] [address]- 2168 07 Mar, 2014 [facility] [place] [facility] [address] [id number] [address]- 8238 14 Feb, 2014 [facility] [place] [facility] [address] [id number] [place] [address]- 8241 14 Feb, 2014 [facility] [place] [facility] [address] [id number] [place] [address]- 2159 30 Jan, 2014 [facility] [place] [facility] [address] [id number] [place] [address]- 6432 30 Jan, 2014 [facility] [place] [facility] [address] [id number] [place] [address] 2548 26 Sep, 2013 [facility] [place] [facility] [address] [id number] [place] [address] 2546 26 Sep, 2013 [facility] [place] [facility] [address] [id number] [place] [address] 2541 25 Sep, 2013 [facility] [place] [facility] [address] [id number] [place] [address] 2541 25 Sep, 2013 [facility] [place] [facility] [address] [id number] [place] [address] 2540 25 Sep, 2013 [facility] [place] [facility] [address] [id number] [place] [address]- 9309 25 Sep, 2013 [facility] [place] [facility] [address] [id number] [place] [address]- 9976 18 Sep, 2013 [facility] [place] [facility] [address] [id number] [place] [address]- 7430 18 Sep, 2013 [facility] [place] [facility] [address] [id number] [place] [address]- 8919 06 Sep, 2013 [facility] [place] [facility] [address] [id number] [place] [address]- 2549 06 Sep, 2013 [facility] [place] [facility] [address] [id number] [place] [address] 2540 05 Sep, 2013 [facility] [place] [facility] [address] [id number] [place] [address] 2544 05 Sep, 2013 [facility] [place] [facility] [address] [id number] [place] [address] 2542 05 Sep, 2013 [facility] [place] [facility] [address] [id number] [place] [address] 2546 05 Sep, 2013 [facility] [place] [facility] [address] [id number] [place] [address] 2549 05 Sep, 2013 [facility] [place] [facility] [address] [id number] [place] [address]- 3386 Jan, [facility] [place] [facility] [address] [id number] [place] [address]- 9167 Dec, [facility] [place] [facility] [address] [id number] [place] [address]- 1309 Dec, [facility] [place] [facility] [address] [id number] [place] [address]- 8371 Dec, [facility] [place] [facility] [address] [id number] [place] [address]- 7271 Dec, [facility] [place] [facility] [address] [id number] [place] [address]- 0477 Dec, [facility] [place] [facility] [address] [id number] [place] [address]- 2367 Dec, [facility] [place] [facility] [address] [id number] [place] [address]- 3396 Dec, [facility] [place] [facility] [address] [id number] [place] [address]- 8884 Dec, [facility] [place] [facility] [address] [id number] [place] [address]- 5370 Dec, [facility] [place] [facility] [address] [id number] [place] [address]- 6067 Dec, [facility] [place] [facility] [address] [id number] [place] [address]- 8586 Nov, [facility] [place] [facility] [address] [id number] [place] [address]- 3474 Nov, [facility] [place] [facility] [address] [id number] [place] [address]- 4546 Nov, [facility] [place] [facility] [address] [id number] [place] [address]- 9805 Nov, [facility] [place] [facility] [address] [id number] [place] [address]- 3932 Nov, [facility] [place] [facility] [address] [id number] [place] [address]- 7431 Nov, [facility] [place] [facility] [address] [id number] [place] [address]- 0586 Oct, [facility] [place] [facility] [address] [id number] [place] [address]- 2463 Oct, [facility] [place] [facility] [address] [id number] [place] [address]- 8221 Oct, [facility] [place] [facility] [address] [id number] [place] [address]- 3078 Oct, [facility] [place] [facility] [address] [id number] [place] [address]- 9381 Oct, [facility] [place] [facility] [address] [id number] [place] [address]- 1597 Oct, [facility] [place] [facility] [address] [id number] [place] [address] Oct, [facility] [place] [facility] [address] [id number] [place] [address] Oct, [facility] [place] [facility] [address] [id number] [place] [address] Oct, [facility] [place] [facility] [address] [id number] [place] [address] Oct, [facility] [place] [facility] [address] [id number] [place] [address] Oct, [facility] [place] [facility] [address] [id number] [place] [address] Oct, [facility] [place] [facility] [address] [id number] [place] [address] September, [facility] [place] [facility] [address] [id number] [place] [address] September, [facility] [place] [facility] [address] [id number] [place] [address] September, [facility] [place] [facility] [address] [id number] [place] [address] Aug, [facility] [place] [facility] [address] [id number] [place] [address] Aug, [facility] [place] [facility] [address] [id number] [place] [address] Jul, [facility] [place] [facility] [address] [id number] [place] [address] Jul, [facility] [place] [facility] [address] [id number] [place] [address] Jul, [facility] [place] [facility] [address] [id number] [place] [address] Jul, [facility] [place] [facility] [address] [id number] [place] [address] Jul, [facility] [place] [facility] [address] [id number] [place] [address] Jul, [facility] [place] [facility] [address] [id number] [place] [address] Jul, [facility] [place] [facility] [address] [id number] [place] [address] Jul, [facility] [place] [facility] [address] [id number] [place] [address] Jul, [facility] [place] [facility] [address] [id number] [place] [address] Jul, [facility] [place] [facility] [address] [id number] [place] [address] Jun, [facility] [place] [facility] [address] [id number] [place] [address] Jun, [facility] [place] [facility] [address] [id number] [place] [address] Jun, [facility] [place] [facility] [address] [id number] [place] [address] Jun, [facility] [address] [id number] [place] [address] May, [facility] [address] [id number] [place] [address] 6[address] May, [facility] [address] [id number] [place] [address] 5[address] Apr, [facility] [place] [facility] [address] [id number] [place] [address] 7857 Apr, [facility] [address] [id number] [place] [address]- 8666 Apr, [facility] [address] [id number] [place] [address]- 2817 Apr, [facility] [address] [id number] [place] [address]- 3504 Apr, [facility] [address] [id number] [place] [address]- 0631 Apr, [facility] [address] [id number] [place] [address]- 7435 Apr, [facility] [address] [facility] [id number] [place] [address]- 6037 Apr, [facility] [address] [id number] [place] [address] 9511 Mar, [facility] [place] [facility] [address] [id number] [place] [address] 4241 Mar, [facility] [place] [facility] [address] [id number] [place] [address] 8107 Mar, [facility] [place] [facility] [address] [id number] [place] [address]- 4625 Mar, [facility] [place] [facility] [address] [facility] [id number] [address]40 Mar, [facility] [place] [facility] [address] [id number] [place] [address]- 5410 08 Mar, 2013 [facility] [place] [facility] [address] [id number] [place] [address]- 7565 30 Feb, 2013 [facility] [place] [facility] [address] [id number] [place] [address]- 9875 30 Feb, 2013 [facility] [place] [facility] [address] [id number] [place] [address]- 6236 Feb, [facility] [place] [facility] [address] [id number] [place] [address]- 5801 18 Feb, 2013 [facility] [place] [facility] [address] [id number] [place] [address]- 3216 Feb, [facility] [place] [facility] [address] [id number] [place] [address]- 0475 Feb, [facility] [place] [facility] [address] [id number] [place] [address]- 5561 04 Feb, 2013 [facility] [place] [facility] [address] [id number] [place] [address]- 2520 27 Jan, 2013 [facility] [place] [facility] [address] [id number] [place] [address]- 7172 26 Jan, 2013 [facility] [place] [facility] [address] [id number] [place] [address]- 6389 19 Jan, 2013 [facility] [place] [facility] [address] [id number] [place] [address]- 0973 05 Jan, 2013 [facility] [place] [facility] [address] [id number] [place] [address]- 2946 Dec, [facility] [place] [facility] [address] [id number] [place] [address]- 1095 Dec, [facility] [place] [facility] [address] [id number] [place] [address]- 5034 08 Dec, 2012 [facility] [place] [facility] [address] [id number] [place] [address]- 0975 Nov, [facility] [place] [facility] [address] [id number] [place] [address]- 5946 Nov, [facility] [place] [facility] [address] [id number] [place] [address]- 7571 16 Nov, 2012 [facility] [place] [facility] [address] [id number] [place] [address]- 0827 Nov, [facility] [place] [facility] [address] [id number] [place] [address]- 1637 Nov, [facility] [place] [facility] [address] [id number] [place] [address]- 5904 Nov, [facility] [place] [facility] [address] [id number] [place] [address]- 7437 Oct, [facility] [place] [facility] [address] [id number] [place] [address]- 7258 Oct, [facility] [place] [facility] [address] [id number] [place] [address]- 3549 Oct, [facility] [place] [facility] [address] [id number] [place] [address]- 4602 Oct, [facility] [place] [facility] [address] [id number] [place] [address]- 3081 Oct, [facility] [place] [facility] [address] [id number] [place] [address]- 7863 Oct, [facility] [place] [facility] [address] [id number] [place] [address]- 4690 September, [facility] [place] [facility] [address] [id number] [place] [address]- 7668 September, [facility] [place] [facility] [address] [id number] [place] [address]- 4638 September, [facility] [place] [facility] [address] [id number] [place] [address]- 4808 September, [facility] [place] [facility] [address] [id number] [place] [address]- 0369 23 Aug, 2012 [facility] [address] [id number] [place] [address]- 1441 03 Aug, 2012 [facility] [address] [id number] [place] [address]- 7035 28 Jul, 2012 [facility] [address] [id number] [place] [address]- 9843 21 Jul, 2012 [facility] [address] [id number] [place] [address]- 1063 18 Jul, 2012 [facility] [address] [id number] [place] [address]- 5303 15 Jul, 2012 [facility] [address] [id number] [place] [address]- 9548 13 Jul, 2012 [facility] [address] [id number] [place] [address]- 3379 08 Jul, 2012 [facility] [address] [id number] [place] [address]- 2139 20 Jun, 2012 [facility] [address] [id number] [place] [address]- 8286 13 Jun, 2012 [facility] [address] [id number] [place] [address]- 8748 17 May, 2012 [facility] [address] [id number] [place] [address]- 1707 May, [facility] [address] [id number] [place] [address]- 4789 18 Apr, 2012 [facility] [address] [id number] [place] [address]- 2017 18 Apr, 2012 [facility] [address] [id number] [place] [address]- 9797 13 Apr, 2012 [facility] [address] [id number] [place] [address]- 9843 13 Apr, 2012 [facility] [place] [facility] [address] [id number] [place] [address]- 9403 10 Apr, 2012 [facility] [place] [facility] [address] [id number] [place] [address]- 4846 Apr, [facility] [place] [facility] [address] [id number] [place] [address] Apr, [facility] [place] [facility] [address] [id number] [place] [address]- 6408 Apr, [facility] [place] [facility] [address] [id number] [place] [address]- 3849 Apr, [facility] [place] [facility] [address] [id number] [place] [address]- 9729 Apr, [facility] [place] [facility] [address] [id number] [place] [address]- 4167 Apr, [facility] [place] [facility] [address] [id number] [place] [address]- 2685 Apr, [facility] [place] [facility] [address] [id number] [place] [address]- 8457 Apr, [facility] [place] [facility] [address] [id number] [place] [address]- 9116 Apr, [facility] [place] [facility] [address] [id number], [place] [address]- 3788 Apr, [facility] [place] [facility] [address] [id number], [place] [address]- 3107 Apr, [facility] [place] [facility] [address] [id number] [place] [address]- 2644 Mar, [facility] [place] [facility] [address] [id number] [place] [address]- 7869 Mar, [facility] [place] [facility] [address] [facility] [id number], [place] [address]- 0305 16 Mar, 2012 [facility] [place] [facility] [address] [id number], [place] [address]- 5147 Mar, [facility] [place] [facility] [address] [id number] [place] [address]- 1548 Mar, [facility] [place] [facility] [address] [facility] [id number], [place] [address]- 7167 Mar, [facility] [place] [facility] [address] [facility] [id number] [place] [address]- 1708 Mar, [facility] [place] [facility] [address] [facility] [id number] [place] [address]- 8991 Mar, [facility] [place] [facility] [address] [facility] [id number] [place] [address], [place] [address]- 5701 Mar, [facility] [place] [facility] [address] [facility] [id number] [place] [address]- 8151 Mar, [facility] [place] [facility] [id number], [place] [address]- 6168 Feb, [facility] [place] [facility] [address] [facility] [id number] [place] [address]- 2117 Feb, [facility] [place] [facility] [address] [id number] [place] [address]- 9132 Feb, [facility] [place] [facility] [address] [id number], [place] [address]- 9155 Feb, [facility] [place] [facility] [address] [facility] [id number], [place] [address]- 3872 Feb, [facility] [place] [facility] [address] [facility] [id number], [place] [address]- 5145 Feb, [facility] [place] [facility] [address] [facility] [id number], [place] [address]- 7691 Jan, [facility] [place] [facility] [address] [facility] [id number], [place] [address]- 8726 Dec, [facility] [place] [facility] [address] [id number], [place] [address]- 1770 Dec, [facility] [place] [facility] [address] [id number] [place] [address] 2546 Dec, [facility] [place] [facility] [address] [id number] [place] [address]- 3156 Dec, [facility] [place] [facility] [address] [id number] [place] [address]- 2546 Nov, [facility] [place] [facility] [address] [id number] [place] [address]- 8936 Nov, [facility] [place] [facility] [address] [id number] [place] [address]- 2541 Nov, [facility] [place] [facility] [address] [id number] [place] [address]- 9276 Nov, [facility] [place] [facility] [address] [id number] [place] [address]- 8748 Oct, [facility] [place] [facility] [address] [id number] [place] [address]- 7194 Oct, [facility] [place] [facility] [address] [id number] [place] [address]- 0043 Oct, [facility] [place] [facility] [address] [id number] [place] [address]- 5808 Oct, [facility] [place] [facility] [address] [id number] [place] [address]- 1510 Oct, [facility] [place] [facility] [address] [id number] [place] [address]- 9657 September, [facility] [place] [facility] [address] [id number] [place] [address]- 8243 September, [facility] [place] [facility] [address] [id number] [place] [address]- 7666 September, [facility] [place] [facility] [address] [id number] [place] [address]- 9946 September, [facility] [place] [facility] [address] [id number] [place] [address]- 8650 September, [facility] [address] [id number] [place] [address]- 6607 September, [facility] [place] [facility] [address] [id number] [place] [address]- 2589 September, [facility] [address] [id number] [place] [address]- 4215 September, [facility] [address] [id number] [place] [address]- 8957 Aug, [facility] [address] [id number] [place] [address]- 6265 Aug, [facility] [address] [id number] [place] [address]- 4095 Aug, [facility] [address] [id number] [place] [address]- 9635 Aug, [facility] [address] [id number] [place] [address]- 4752 Aug, [facility] [address] [id number] [place] [address]- 6182 Aug, [facility] [place] [facility] [address] [id number] [place] [address]- 1873 Aug, [facility] [place] [facility] [address] [id number] [place] [address]- 4178 Aug, [facility] [place] [facility] [address] [id number], [place] [address]- 2609 Aug, [facility] [place] [facility] [address] [id number] [place] [address]- 1109 Aug, [facility] [place] [facility] [address] [id number] [place] [address]- 4678 Aug, [facility] [place] [facility] [address] [id number] [place] [address]- 5561 Aug, [facility] [place] [facility] [address] [id number] [place] [address]- 3148 29 Jul, 2011 [facility] [place] [facility] [address] [id number] [place] [address]- 2326 28 Jul, 2011 [facility] [place] [facility] [address] [id number] [place] [address] 2546 27 Jul, 2011 [facility] [place] [facility] [address] [id number] [place] [address]- 9146 23 Jul, 2011 [facility] [place] [facility] [address] [id number] [place] [address] 2546 21 Jul, 2011 [facility] [place] [facility] [address] [id number] [place] [address]- 6466 21 Jul, 2011 [facility] [place] [facility] [address] [id number] [place] [address]- 7176 14 Jul, 2011 [facility] [place] [facility] [address] [id number] [place] [address]- 4336 13 Jul, 2011 [facility] [place] [facility] [address] [id number] [place] [address]- 3332 07 Jul, 2011 [facility] [place] [facility] [address] [id number] [place] [address]- 5560 24 Jun, 2011 [facility] [place] [facility] [address] [facility] [id number] [place] [address]- 5802 23 Jun, 2011 [facility] [place] [facility] [address] [id number] [place] [address] 2546 23 Jun, 2011 [facility] [place] [facility] [address] [id number] [place] [address] 2546 14 Jun, 2011 [facility] [place] [facility] [address] [id number] [place] [address]- 9796 02 Jun, 2011 [facility] [place] [facility] [address] [id number] [place] [address] 2546 02 Jun, 2011 [facility] [place] [facility] [address] [id number] [place] [address] 2546 Jun, [facility] [address] [id number] [place] [address]- 6861 May, [facility] [place] [facility] [address] [id number] [place] [address]- 5544 May, [facility] [place] [facility] [address] [id number] [place] [address]- 3942 May, [facility] [place] [facility] [address] [id number] [place] [address]- 1095 May, [facility] [place] [facility] [address] [id number] [place] [address]- 6257 May, [facility] [place] [facility] [address] [id number] [place] [address]- 8371 May, [facility] [place] [facility] [address] [id number] [place] [address]- 4983 May, [facility] [place] [facility] [address] [id number] [place] [address]- 1326 Apr, [facility] [place] [facility] [address] [id number] [place] [address]- 9812 Apr, [facility] [place] [facility] [address] [id number] [place] [address]- 6417 Apr, [facility] [place] [facility] [address] [id number] [place] [address]- 0872 Apr, [facility] [place] [facility] [address] [id number], [place] [address]- 2329 Apr, [facility] [place] [facility] [address] [id number] [place] [address]- 2403 Apr, [facility] [place] [facility] [address] [id number] [place] [address]- 6300 13 Apr, 2011 [facility] [place] [facility] [address] [id number] [place] [address]- 0196 08 Apr, 2011 [facility] [place] [facility] [address] [id number] [place] [address]- 7046 05 Apr, 2011 [facility] [place] [facility] [address] [id number] [place] [address]- 2219 Mar, [facility] [place] [facility] [address] [id number] [place] [address]- 6216 Mar, [facility] [place] [facility] [address] [id number] [place] [address]- 0496 Mar, [facility] [place] [facility] [address] [id number] [place] [address]- 3772 Mar, [facility] [place] [facility] [address] [id number] [place] [address]- 0571 Mar, [facility] [place] [facility] [address] [id number] [place] [address]- 0959 Feb, [facility] [place] [facility] [address] [id number] [place] [address]- 8244 Feb, [facility] [place] [facility] [address] [id number] [place] [address]- 2368 Feb, [facility] [place] [facility] [address] [id number] [place] [address]- 0034 Dec, [facility] [place] [facility] [address] [id number] [place] [address]- 4262 Nov, [facility] [place] [facility] [address] [id number] [place] [address]- 9346 Apr, [facility] [place] [facility] [address] [id number] [place] [address]- 3888 20 Apr, 2010 [facility] [place] [facility] [address] [id number] [place] [address]- 5454 16 Apr, 2010 [facility] [place] [facility] [address] [id number] [place] [address]- 9696 13 Apr, 2010 [facility] [place] [facility] [address] [id number] [place] [address]- 9514 09 Apr, 2010 [facility] [address] [facility] [id number], [place] [address]- 3431 Apr, [facility] [id number], [place] [address]- 0639 Apr, [facility] [id number], [place] [address]- 4530 Apr, [facility] [id number], [place] [address]- 7523 Mar, [facility] [address] [facility] [id number], [place] [address]- 3520 Mar, [facility] [id number], [place] [address]- 6116 Mar, [facility] [id number], [place] [address]- 8566 Mar, [facility] [id number], [place] [address]- 9653 Mar, [facility] [id number], [place] [address]- 2408 Mar, [facility] [id number], [place] [address]- 5527 Mar, [facility] [id number], [place] [address]- 7708 Mar, [facility] [address] [id number], [place] [address]- 6402 Mar, [facility] [address] [id number], [place] [address]- 7361 Mar, IMMUNIZATIONS No Known Immunizations SOCIAL HISTORY Never Assessed REASON FOR VISIT Call from Dr Crandall PLAN OF CARE VITAL SIGNS MEDICATIONS Unknown [...]
--- OUTSIDE RECORDS SUMMARY | 2018-04-22 22:55 | XMS REPORT ---
Author Author CARLOS LARA [facility] Address [address] [place] [address] Care Team Providers Care Customer Support Analyst Name Role Phone CARLOS LARA Unavailable PROBLEMS Type Condition ICD9-CM Code ZHA51-QB Code Onset Dates Condition Status SNOMED Code Problem Severe sleep apnea G47.30 Active 63745047 Problem Iron deficiency anemia, unspecified iron deficiency anemia type D50.9 Active 34053740 Problem Stenosis of carotid artery, unspecified laterality I65.29 Active 91318420 Problem Decreased diffusion capacity R94.2 Active 68508767 Problem Coronary artery disease involving [place] coronary artery of [place] heart, angina presence unspecified I25.10 Active 0895865911743 Problem Generalized osteoarthritis M15.9 Active 714029121 Problem Aortic valve sclerosis I35.8 Active 63984562 Problem Essential hypertension I10 Active 28642635 Problem Renal osteodystrophy N25.0 Active 86461947 Problem Anxiety about health F41.8 Active 171938532 Problem 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 Active 9388189 Problem Type 2 diabetes mellitus with unspecified complications E11.8 Active 47417770 Problem Type 2 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 Active 39814523 Problem Chronic kidney disease, unspecified CKD stage N18.9 Active 240271630 Problem Pain R52 Active 37456171 Problem custodial 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.4 Active 625304149 Problem Acute anxiety F41.9 Active 39855693 Problem Inability to bear weight R26.89 Active 867716430 Problem Type 2 diabetes mellitus with diabetic polyneuropathy E11.42 Active 860444176 Problem Type 2 diabetes mellitus with foot ulcer E11.621 Active 086892080 Problem Type 2 diabetes mellitus with hyperglycemia E11.65 Active 97052902 Problem Slow transit constipation K59.01 Active 46066801 Problem Bladder spasms N32.89 Active 197203311 Problem Chronic kidney disease (CKD), stage 4 (severe) N18.4 Active 458569784 Problem Other chronic pain G89.29 Active 58570964 Problem Diarrhea, unspecified type R19.7 Active 42961590 Problem Mixed hyperlipidemia E78.2 Active 333395913 Problem Trochanteric bursitis of left hip M70.62 Active 625187312543634 Problem Anemia in other chronic diseases classified elsewhere D63.8 Active 064084172 Problem Chronic kidney disease, stage 3 (moderate) N18.3 Active 812820273 Problem Port catheter in place Z95.828 Active 290484084 Problem Transient cerebral ischemia, unspecified type G45.9 Active 717828823 Problem Hypoxemia R09.02 Active 247334673 Problem BMI 50.0-59.9, adult Z68.43 Active 145562169 ALLERGIES No Information ENCOUNTERS Encounter Location Date Diagnosis [place] [address] [address]63- [address] 17 Jan, 2018 [place] [address] 61148- 6547 14 Jan, 2018 Acute anxiety F41.9 [place] [address] 85703- 4654 04 Jan, 2018 Inability to bear weight R26.89 [facility] [address] [place], [place] [id number] Dec, Low back pain M54.5 ; Other chronic pain G89.29 and Chronic kidney disease (CKD), stage 4 (severe) N18.4 [place] [address] [place] [id number] [place] [address] 96180- 9418 Dec, Type 2 diabetes mellitus with hyperglycemia E11.65 [place] [address] [address]- 4698 Dec, [facility] [address] [place] [id number] Dec, Type 2 diabetes mellitus with hyperglycemia E11.65 ; Essential hypertension I10 ; Generalized osteoarthritis M15.9 ; Mixed hyperlipidemia E78.2 ; Hypoxia R09.02 ; Port catheter in place Z95.828 ; Anemia due to acute blood loss D62 ; Chronic kidney disease, unspecified CKD stage N18.9 and Severe sleep apnea G47.30 [place] [address] [place] [address] 28153- 7790 14 Dec, 2017 Type 2 diabetes mellitus with hyperglycemia E11.65 [facility] [address] [place] [id number] [place] [address] 87672- 8631 Dec, [facility] [address] [place] [id number] [place] [address] 22224- 2357 Dec, Type 2 diabetes mellitus with hyperglycemia E11.65 [facility] [address] [place] [id number] [place] [address] 98590- 0261 Dec, Left leg pain M79.605 [place] [address] [place] [id number] [place] [address] 45809- 5805 Nov, Slow transit constipation K59.01 [place] [address] [place] [id number] [place] [address] 36061- 5103 Nov, [facility] [address] [place] [id number] Nov, Anemia due to acute blood loss D62 [place] [address] [place] [id number] [place] [address] 63140- 6499 Nov, [place] [address] [place] [id number] [place] [address] 77709- 6821 Nov, Bladder spasms N32.89 [place] [address] [place] [id number] [place] [address] 75157- 1861 Nov, Pain R52 [facility] [address] [place] [id number] Nov, Anemia due to acute blood loss D62 [place] [address] [place] [id number] [place] [address] 83025- 8028 Nov, Pain in right hip M25.551 and Pain in left hip M25.552 [place] [address] [place] [id number] [place] [address] 26688- 2752 Nov, [place] [address] [place] [id number] [place] [address] 80551- 2227 Nov, [facility] [address] [place] [address] 22873- 0903 Nov, [facility] [address] [place] [id number] [place] [address] 25495- 9339 Nov, [facility] [address] [place] [id number] [place] [address] 97211- 2287 Oct, [facility] [address] [place] [id number] [place] [address] 32063- 1596 Oct, [facility] [address] [place] [id number] Oct, Encounter for examination for admission to senior living Z02.2 ; Chronic kidney disease, unspecified CKD stage N18.9 ; Type 2 diabetes mellitus with unspecified complications E11.8 ; custodial 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.4 ; Essential hypertension I10 ; Hypoxia R09.02 ; Severe sleep apnea G47.30 ; Stenosis of carotid artery, unspecified laterality I65.29 ; Generalized osteoarthritis M15.9 ; Coronary artery disease involving [place] coronary artery of [place] heart, angina presence unspecified I25.10 ; Port catheter in place Z95.828 and Hemorrhoids, unspecified hemorrhoid type K64.9 [facility] [address] [place] [id number] [place] [address] 80610- 3718 Oct, [facility] [address] [place] [address] 52803- 3739 Oct, [facility] [address] [place] [id number] [place] [address] 67258- 6370 Oct, [facility] [address] [place] [id number] [place] [address] 49603- 2074 Oct, [facility] [address] [place] [id number] [place] [address] 99567 -7784 September, BMI 50.0-59.9, adult Z68.43 [facility] [address] [place] [id number] [place] [address] 06706- 8433 September, [place] [address] [place] [id number] [place] [address] 87871- 4633 September, [place] [address] 20010- 4162 Aug, Type 2 diabetes mellitus with foot ulcer E11.621 ; Transient cerebral ischemia, unspecified type G45.9 ; Essential hypertension I10 ; Mixed hyperlipidemia E78.2 and BMI 50.0-59.9, adult Z68.43 [place] [address] [place] [id number] [place] [address] 02926- 4968 Aug, [place] [address] 64493- 8301 Jul, Anxiety about health F41.8 and Mixed hyperlipidemia E78.[address] 40625- 6649 Jul, [place] [address] 12911- 4999 Jun, [place] [address] [place] [id number] [place] [address] 33897- 0825 Jun, Type 2 diabetes mellitus with hyperglycemia E11.65 ; Type 2 diabetes mellitus with foot ulcer E11.621 ; Port catheter in place Z95.828 ; 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 ; Contact with and (suspected) exposure to potentially hazardous body fluids Z77.21 and BMI 50.0-59.9, adult Z68.43 [place] [address] [place] [id number] [place] [address] 10178- 3316 May, [address] 50157- 9728 May, Open wound of right great toe, subsequent encounter S91.101D [place] [address] [place] [id number] [place] [address] 54255- 1279 May, [place] [address] 49933- 1619 Apr, [place] [address] [address] 6289 Apr, [place] [address] [place] [id number] [place] [address] 39052- 8259 Apr, [place] [address] [place] [id number] [place] [address] 85773- 3857 Apr, Type 2 diabetes mellitus with diabetic polyneuropathy E11.42 [place] [address] [place] [id number] [place] [address] 87445- 9511 13 Apr, 2017 Open wound of right great toe, subsequent encounter S91.101D [place] [address] [place] [id number] [place] [address] 61919- 9696 08 Apr, 2017 Open wound of right great toe, subsequent encounter S91.101D ; Breast pain, left N64.4 ; Breast cancer screening Z12.31 ; Type 2 diabetes mellitus with foot ulcer E11.621 ; Essential hypertension I10 and BMI 50.0-59.9, adult Z68.43 [place] [address] [place] [id number] [place] [address] 21730- 1008 Mar, Encounter for immunization Z23 [place] [address] [place] [id number] [place] [address] 34648- 5477 Mar, [place] [address] [place] [id number] [place] [address] 30742- 6255 Mar, [place] [address] [place] [id number] [place] [address] 69363- 0824 Mar, Type 2 diabetes mellitus with diabetic polyneuropathy E11.42 ; Type 2 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 ; Type 2 diabetes mellitus with foot ulcer E11.621 ; Essential hypertension I10 ; Hypoxemia R09.02 and Generalized osteoarthritis M15.9 [place] [address] [address] 9073 02 Mar, 2017 Chronic kidney disease, stage 3 (moderate) N18.3 ; Acute cystitis without hematuria N30.00 ; Essential hypertension I10 ; Muscle spasms of neck M62.838 ; Type 2 diabetes mellitus with diabetic polyneuropathy E11.42 and BMI 50.0-59.9, adult Z68.43 [facility] [address] [place] [id number] [place] [address] 10218- 4094 30 Feb, 2017 [facility] [address] [place] [id number] [place] [address] 87753 -1223 Feb, [facility] [address] [place] [id number] [place] [address] 21267- 8842 Feb, [facility] [address] [place] [id number] [place] [address] 62383- 2455 Feb, [facility] [address] [place] [id number] [place] [address] 32150- 1374 Feb, [facility] [address] [place] [id number] [place] [address] 43413- 3256 Feb, [facility] [address] [place] [id number] [place] [address] 46136- 6663 Feb, Mixed hyperlipidemia E78.2 [facility] [address] [place] [id number] [place] [address] 42153- 2465 Feb, [facility] [address] [place] [id number] [place] [address] 25267- 5391 Jan, [facility] [address] [place] [id number] [place] [address] 18678- 9725 14 Jan, 2017 Generalized osteoarthritis M15.9 [facility] [address] [place] [id number] [place] [address] 03269- 9267 Oct, [facility] [address] [place] [id number] [place] [address] 65662- 1274 27 Jul, 2016 [facility] [address] [place] [id number] [place] [address] 40859- 2542 13 Jul, 2016 [facility] [address] [place] [id number] [place] [address] 47290- 9772 Jul, Type 2 diabetes mellitus with hyperglycemia E11.65 ; Chronic kidney disease, stage 3 (moderate) N18.3 ; Type 2 diabetes mellitus with foot ulcer E11.621 ; Type 2 diabetes mellitus with diabetic polyneuropathy E11.42 ; Generalized osteoarthritis M15.9 ; Trochanteric bursitis of left hip M70.62 and Tinea pedis of both feet B35.3 [place] [address] [place] [id number] [place] [address] 64594- 4789 Jun, [place] [address] 63288- 5751 Apr, [place] [address] 53462- 7415 Apr, [place] [address] 01552- 5624 Mar, [place] [address] 97127- 8660 Feb, Encounter for immunization Z23 [place] [id number] [place] [address] 30521- 8398 Feb, [address] 87760- 4536 Feb, Type 2 diabetes mellitus with hyperglycemia E11.65 ; Encounter for immunization Z23 ; Diarrhea, unspecified type R19.7 ; Essential hypertension I10 ; Mixed hyperlipidemia E78.2 ; Hypoxia R09.02 ; 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 and Type 2 diabetes mellitus with foot ulcer E11.621 [place] [address] [place] [id number] [place] [address] 98410- 2594 Jan, [address] 32310- 5842 Jan, Type 2 diabetes mellitus with hyperglycemia E11.65 and Pneumonia due to infectious organism, unspecified laterality, unspecified part of lung J18.[address] 77723- 8485 Jan, [facility] [address] [place] [address] 73093- 9140 Jan, [facility] [address] [place] [id number] [place] [address] 83341- 7042 Oct, Type 2 diabetes mellitus with hyperglycemia E11.65 ; Generalized osteoarthritis M15.9 and Chronic prescription opiate use Z79.891 [facility] [address] [place] [id number] [place] [address] 00805- 9188 September, [facility] [address] [place] [id number] [place] [address] 89710- 6405 Aug, [facility] [address] [place] [id number] [place] [address] 80117- 8079 Aug, [facility] [address] [place] [id number] [place] [address] 54024- 6630 Aug, [facility] [address] [place] [id number] [place] [address] 43254- 4894 Aug, [facility] [address] [place] [id number] [place] [address] 86397- 0100 Jun, [facility] [address] [place] [id number] [place] [address] 14920- 0851 Jun, Type 2 diabetes mellitus with hyperglycemia E11.65 ; Mixed hyperlipidemia E78.2 ; Vaginal itching L29.8 ; Neck muscle spasm M62.838 and Skin abrasion T14.8 [facility] [address] [address]- 2033 Apr, [facility] [address] [place] [id number] [place] [address] 53408- 0885 Apr, [facility] [address] [place] [id number] [place] [address] 55645- 5629 Mar, [facility] [address] [place] [id number] [place] [address] 64673- 7263 Feb, [facility] [address] [place] [address] 57960- 1016 Feb, Type 2 diabetes mellitus with hyperglycemia E11.65 ; Type 2 diabetes mellitus with foot ulcer E11.621 ; Type 2 diabetes mellitus with diabetic polyneuropathy E11.42 and Encounter for immunization Z23 [facility] [address] [place] [id number] [place] [address] 01228- 8713 Jan, Hypertension 401.9 ; Uncontrolled type 2 diabetes mellitus 250.02 ; Right shoulder pain 719.41 and Ulcer of heel and midfoot 707.14 [facility] [address] [place] [id number] [place] [address] 61411- 6605 Dec, Diabetes with other specified manifestations, type II or unspecified type, not stated as uncontrolled 250.80 ; Ulcer of heel and midfoot 707.14 ; Hypertension 401.9 ; Hip pain, left 719.45 and Acute anxiety 300.00 [facility] [address] [place] [id number] [place] [address] 61067- 1736 Nov, [facility] [address] [place] [id number] [place] [address] 31796- 0235 Nov, [facility] [address] [place] [id number] [place] [address] 29090- 3262 September, Anxiety attack 300.01 and Cellulitis 682.9 [facility] [address] [place] [id number] [place] [address] 27439- 6905 September, [facility] [address] [place] [id number] [place] [address] 88854- 0263 September, [facility] [address] [place] [id number] [place] [address] 43523- 6922 September, [facility] [address] [place] [id number] [place] [address] 65981- 7245 Aug, [facility] [address] [place] [id number] [place] [address] 26196- 9614 Aug, [facility] [address] [place] [address]- 0661 13 Jul, 2014 [facility] [place] [facility] [address] [id number] [place] [address]- 5243 13 Jul, 2014 [facility] [place] [facility] [address] [id number] [place] [address]- 3922 05 Jul, 2014 [facility] [place] [facility] [address] [id number] [place] [address]- 1460 13 May, 2014 [facility] [place] [facility] [address] [id number] [place] [address]- 2339 13 May, 2014 [facility] [place] [facility] [address] [id number] [place] [address]- 0518 11 Mar, 2014 [facility] [place] [facility] [address] [id number] [place] [address]- 6662 Mar, [facility] [place] [facility] [address] [id number] [place] [address]- 7894 07 Mar, 2014 [facility] [place] [facility] [address] [id number] [place] [address]- 0483 07 Mar, 2014 [facility] [place] [facility] [address] [id number] [place] [address]- 1330 Mar, [facility] [place] [facility] [address] [facility] [id number] [place] [address]- 5400 Mar, [facility] [place] [facility] [address] [id number] [place] [address]- 2221 07 Mar, 2014 [facility] [place] [facility] [address] [id number] [address]- 0375 14 Feb, 2014 [facility] [place] [facility] [address] [id number] [place] [address]- 2998 14 Feb, 2014 [facility] [place] [facility] [address] [id number] [place] [address]- 6542 30 Jan, 2014 [facility] [place] [facility] [address] [id number] [place] [address]- 8516 30 Jan, 2014 [facility] [place] [facility] [address] [id number] [place] [address] 254 26 Sep, 2013 [facility] [place] [facility] [address] [id number] [place] [address] 2546 26 Sep, 2013 [facility] [place] [facility] [address] [id number] [place] [address] 2540 25 Sep, 2013 [facility] [place] [facility] [address] [id number] [place] [address] 2543 25 Sep, 2013 [facility] [place] [facility] [address] [id number] [place] [address] 2541 25 Sep, 2013 [facility] [place] [facility] [address] [id number] [place] [address]- 5441 25 Sep, 2013 [facility] [place] [facility] [address] [id number] [place] [address]- 1073 18 Sep, 2013 [facility] [place] [facility] [address] [id number] [place] [address]- 2961 18 Sep, 2013 [facility] [place] [facility] [address] [id number] [place] [address]- 9891 06 Sep, 2013 [facility] [place] [facility] [address] [id number] [place] [address]- 2549 06 Sep, 2013 [facility] [place] [facility] [address] [id number] [place] [address] 2548 05 Sep, 2013 [facility] [place] [facility] [address] [id number] [place] [address] 2545 05 Sep, 2013 [facility] [place] [facility] [address] [id number] [place] [address] 2549 05 Sep, 2013 [facility] [place] [facility] [address] [id number] [place] [address] 2546 05 Sep, 2013 [facility] [place] [facility] [address] [id number] [place] [address] 254 05 Sep, 2013 [facility] [place] [facility] [address] [id number] [place] [address]- 3638 Jan, [facility] [place] [facility] [address] [id number] [place] [address]- 4956 Dec, [facility] [place] [facility] [address] [id number] [place] [address]- 0590 Dec, [facility] [place] [facility] [address] [id number] [place] [address]- 8036 Dec, [facility] [place] [facility] [address] [id number] [place] [address]- 7476 Dec, [facility] [place] [facility] [address] [id number] [place] [address]- 8558 Dec, [facility] [place] [facility] [address] [id number] [place] [address]- 5373 Dec, [facility] [place] [facility] [address] [id number] [place] [address]- 1186 Dec, [facility] [place] [facility] [address] [id number] [place] [address]- 7654 Dec, [facility] [place] [facility] [address] [id number] [place] [address]- 5726 Dec, [facility] [place] [facility] [address] [id number] [place] [address]- 2135 Dec, [facility] [place] [facility] [address] [id number] [place] [address]- 6871 Nov, [facility] [place] [facility] [address] [id number] [place] [address]- 7969 Nov, [facility] [place] [facility] [address] [id number] [place] [address]- 1406 Nov, [facility] [place] [facility] [address] [id number] [place] [address]- 3663 Nov, [facility] [place] [facility] [address] [id number] [place] [address]- 9749 Nov, [facility] [place] [facility] [address] [id number] [place] [address]- 2186 Nov, [facility] [place] [facility] [address] [id number] [place] [address]- 8300 Oct, [facility] [place] [facility] [address] [id number] [place] [address]- 7346 Oct, [facility] [place] [facility] [address] [id number] [place] [address]- 2901 Oct, [facility] [place] [facility] [address] [id number] [place] [address]- 4311 Oct, [facility] [place] [facility] [address] [id number] [place] [address]- 5931 Oct, [facility] [place] [facility] [address] [id number] [place] [address]- 8429 Oct, [facility] [place] [facility] [address] [id number] [place] [address]- 9642 Oct, [facility] [place] [facility] [address] [id number] [place] [address] Oct, [facility] [place] [facility] [address] [id number] [place] [address] Oct, [facility] [place] [facility] [address] [id number] [place] [address] Oct, [facility] [place] [facility] [address] [id number] [place] [address] Oct, [facility] [place] [facility] [address] [id number] [place] [address] Oct, [facility] [place] [facility] [address] [id number] [place] [address] September, [facility] [place] [facility] [address] [id number] [place] [address] September, [facility] [place] [facility] [address] [id number] [place] [address] September, [facility] [place] [facility] [address] [id number] [place] [address] Aug, [facility] [place] [facility] [address] [id number] [place] [address] Aug, [facility] [place] [facility] [address] [id number] [place] [address] Jul, [facility] [place] [facility] [address] [id number] [place] [address] Jul, [facility] [place] [facility] [address] [id number] [place] [address] Jul, [facility] [place] [facility] [address] [id number] [place] [address] Jul, [facility] [place] [facility] [address] [id number] [place] [address] Jul, [facility] [place] [facility] [address] [id number] [place] [address] Jul, [facility] [place] [facility] [address] [id number] [place] [address] Jul, [facility] [place] [facility] [address] [id number] [place] [address] Jul, [facility] [place] [facility] [address] [id number] [place] [address] 8812 Jul, [facility] [place] [facility] [address] [id number] [place] [address] 3557 Jul, [facility] [place] [facility] [address] [id number] [place] [address] 0296 Jun, [facility] [place] [facility] [address] [id number] [place] [address]- 0126 Jun, [facility] [place] [facility] [address] [id number] [place] [address]- 8[address] Jun, [facility] [place] [facility] [address] [id number] [place] [address]- 8298 Jun, [facility] [address] [id number] [place] [address] 3774 May, [facility] [address] [id number] [place] [address] 5099 May, [facility] [address] [id number] [place] [address]- 7[address] Apr, [facility] [place] [facility] [address] [id number] [place] [address]- 4745 Apr, [facility] [address] [id number] [place] [address]- 6414 Apr, [facility] [address] [id number] [place] [address]- 4842 Apr, [facility] [address] [id number] [place] [address]- 6100 Apr, [facility] [address] [id number] [place] [address]- 1453 Apr, [facility] [address] [id number] [place] [address]- 2983 Apr, [facility] [address] [facility] [id number] [place] [address]- 3085 Apr, [facility] [address] [id number] [place] [address]- 4271 Mar, [facility] [place] [facility] [address] [id number] [place] [address]- 5445 Mar, [facility] [place] [facility] [address] [id number] [place] [address]- 4787 Mar, [facility] [place] [facility] [address] [id number] [place] [address]- 7326 Mar, [facility] [place] [facility] [address] [facility] [id number] [address] 9526 Mar, [facility] [place] [facility] [address] [id number] [place] [address]- 0079 08 Mar, 2013 [facility] [place] [facility] [address] [id number] [place] [address]- 8972 30 Feb, 2013 [facility] [place] [facility] [address] [id number] [place] [address]- 5117 30 Feb, 2013 [facility] [place] [facility] [address] [id number] [place] [address]- 3828 Feb, [facility] [place] [facility] [address] [id number] [place] [address]- 5280 18 Feb, 2013 [facility] [place] [facility] [address] [id number] [place] [address]- 1417 Feb, [facility] [place] [facility] [address] [id number] [place] [address]- 4137 Feb, [facility] [place] [facility] [address] [id number] [place] [address]- 5070 04 Feb, 2013 [facility] [place] [facility] [address] [id number] [place] [address]- 0589 27 Jan, 2013 [facility] [place] [facility] [address] [id number] [place] [address]- 6425 26 Jan, 2013 [facility] [place] [facility] [address] [id number] [place] [address]- 8890 19 Jan, 2013 [facility] [place] [facility] [address] [id number] [place] [address]- 3759 05 Jan, 2013 [facility] [place] [facility] [address] [id number] [place] [address]- 2303 Dec, [facility] [place] [facility] [address] [id number] [place] [address]- 3512 Dec, [facility] [place] [facility] [address] [id number] [place] [address]- 4000 08 Dec, 2012 [facility] [place] [facility] [address] [id number] [place] [address]- 6333 Nov, [facility] [place] [facility] [address] [id number] [place] [address]- 4788 Nov, [facility] [place] [facility] [address] [id number] [place] [address]- 2803 16 Nov, 2012 [facility] [place] [facility] [address] [id number] [place] [address]- 1493 Nov, [facility] [place] [facility] [address] [id number] [place] [address]- 1145 Nov, [facility] [place] [facility] [address] [id number] [place] [address]- 1475 Nov, [facility] [place] [facility] [address] [id number] [place] [address]- 9800 Oct, [facility] [place] [facility] [address] [id number] [place] [address]- 8562 Oct, [facility] [place] [facility] [address] [id number] [place] [address]- 3874 Oct, [facility] [place] [facility] [address] [id number] [place] [address]- 6578 Oct, [facility] [place] [facility] [address] [id number] [place] [address]- 9863 Oct, [facility] [place] [facility] [address] [id number] [place] [address]- 1695 Oct, [facility] [place] [facility] [address] [id number] [place] [address]- 1538 September, [facility] [place] [facility] [address] [id number] [place] [address]- 1904 September, [facility] [place] [facility] [address] [id number] [place] [address]- 7997 September, [facility] [place] [facility] [address] [id number] [place] [address]- 2174 September, [facility] [place] [facility] [address] [id number] [place] [address]- 8112 23 Aug, 2012 [facility] [address] [id number] [place] [address]- 1993 03 Aug, 2012 [facility] [address] [id number] [place] [address]- 2625 28 Jul, 2012 [facility] [address] [id number] [place] [address]- 2498 21 Jul, 2012 [facility] [address] [id number] [place] [address]- 0762 18 Jul, 2012 [facility] [address] [id number] [place] [address]- 5727 15 Jul, 2012 [facility] [address] [id number] [place] [address]- 9277 13 Jul, 2012 [facility] [address] [id number] [place] [address]- 4600 08 Jul, 2012 [facility] [address] [id number] [place] [address]- 4386 20 Jun, 2012 [facility] [address] [id number] [place] [address]- 4372 13 Jun, 2012 [facility] [address] [id number] [place] [address]- 8512 17 May, 2012 [facility] [address] [id number] [place] [address]- 1961 May, [facility] [address] [id number] [place] [address]- 9891 18 Apr, 2012 [facility] [address] [id number] [place] [address]- 0933 18 Apr, 2012 [facility] [address] [id number] [place] [address]- 6124 13 Apr, 2012 [facility] [address] [id number] [place] [address]- 6573 13 Apr, 2012 [facility] [place] [facility] [address] [id number] [place] [address]- 8265 10 Apr, 2012 [facility] [place] [facility] [address] [id number] [place] [address]- 5856 Apr, [facility] [place] [facility] [address] [id number] [place] [address] Apr, [facility] [place] [facility] [address] [id number] [place] [address]- 4543 Apr, [facility] [place] [facility] [address] [id number] [place] [address]- 2736 Apr, [facility] [place] [facility] [address] [id number] [place] [address]- 2375 Apr, [facility] [place] [facility] [address] [id number] [place] [address]- 5012 Apr, [facility] [place] [facility] [address] [id number] [place] [address]- 8859 Apr, [facility] [place] [facility] [address] [id number] [place] [address]- 9985 Apr, [facility] [place] [facility] [address] [id number] [place] [address]- 6791 Apr, [facility] [place] [facility] [address] [id number], [place] [address]- 0136 Apr, [facility] [place] [facility] [address] [id number][place] [address]- 5175 Apr, [facility] [place] [facility] [address] [id number] [place] [address]- 4409 Mar, [facility] [place] [facility] [address] [id number] [place] [address]- 4683 Mar, [facility] [place] [facility] [address] [facility] [id number][place] [address]- 1924 16 Mar, 2012 [facility] [place] [facility] [address] [id number][place] [address]- 1400 Mar, [facility] [place] [facility] [address] [id number] [place] [address]- 9524 Mar, [facility] [place] [facility] [address] [facility] [id number], [place] [address]- 6717 Mar, [facility] [place] [facility] [address] [facility] [id number] [place] [address]- 8814 Mar, [facility] [place] [facility] [address] [facility] [id number] [place] [address]- 9488 Mar, [facility] [place] [facility] [address] [facility] [id number] [place] [address], [place] [address]- 4260 Mar, [facility] [place] [facility] [address] [facility] [id number] [place] [address]- 6241 Mar, [facility] [place] [facility] [id number], [place] [address]- 9732 Feb, [facility] [place] [facility] [address] [facility] [id number] [place] [address]- 6113 Feb, [facility] [place] [facility] [address] [id number] [place] [address]- 9380 Feb, [facility] [place] [facility] [address] [id number] [address]- 1646 Feb, [facility] [place] [facility] [address] [facility] [id number], [place] [address]- 8170 Feb, [facility] [place] [facility] [address] [facility] [id number][place] [address]- 9136 Feb, [facility] [place] [facility] [address] [facility] [id number][place] [address]- 3457 Jan, [facility] [place] [facility] [address] [facility] [id number], [place] [address]- 2380 Dec, [facility] [place] [facility] [address] [id number] [address]- 9814 Dec, [facility] [place] [facility] [address] [id number] [place] [address] 2546 Dec, [facility] [place] [facility] [address] [id number] [place] [address]- 1706 Dec, [facility] [place] [facility] [address] [id number] [place] [address]- 2546 Nov, [facility] [place] [facility] [address] [id number] [place] [address]- 2036 Nov, [facility] [place] [facility] [address] [id number] [place] [address]- 2543 Nov, [facility] [place] [facility] [address] [id number] [place] [address]- 7786 Nov, [facility] [place] [facility] [address] [id number] [place] [address]- 7707 Oct, [facility] [place] [facility] [address] [id number] [place] [address]- 9531 Oct, [facility] [place] [facility] [address] [id number] [place] [address]- 3999 Oct, [facility] [place] [facility] [address] [id number] [place] [address]- 6913 Oct, [facility] [place] [facility] [address] [id number] [place] [address]- 4885 Oct, [facility] [place] [facility] [address] [id number] [place] [address]- 1956 September, [facility] [place] [facility] [address] [id number] [place] [address]- 3411 September, [facility] [place] [facility] [address] [id number] [place] [address]- 6216 September, [facility] [place] [facility] [address] [id number] [place] [address]- 5156 September, [facility] [place] [facility] [address] [id number] [place] [address]- 9596 September, [facility] [address] [id number] [place] [address]- 5212 September, [facility] [place] [facility] [address] [id number] [place] [address]- 7000 September, [facility] [address] [id number] [place] [address]- 6657 September, [facility] [address] [id number] [place] [address]- 6135 Aug, [facility] [address] [id number] [place] [address]- 5261 Aug, [facility] [address] [id number] [place] [address]- 2350 Aug, [facility] [address] [id number] [place] [address]- 4217 Aug, [facility] [address] [id number] [place] [address]- 9605 Aug, [facility] [address] [id number] [place] [address]- 9036 Aug, [facility] [place] [facility] [address] [id number] [place] [address]- 1273 Aug, [facility] [place] [facility] [address] [id number] [place] [address]- 0761 Aug, [facility] [place] [facility] [address] [id number], [place] [address]- 3379 Aug, [facility] [place] [facility] [address] [id number] [place] [address]- 7808 Aug, [facility] [place] [facility] [address] [id number] [place] [address]- 4442 Aug, [facility] [place] [facility] [address] [id number] [place] [address]- 1095 Aug, [facility] [place] [facility] [address] [id number] [place] [address]- 6638 29 Jul, 2011 [facility] [place] [facility] [address] [id number] [place] [address]- 6036 28 Jul, 2011 [facility] [place] [facility] [address] [id number] [place] [address] 2546 27 Jul, 2011 [facility] [place] [facility] [address] [id number] [place] [address]- 9836 23 Jul, 2011 [facility] [place] [facility] [address] [id number] [place] [address] 2546 21 Jul, 2011 [facility] [place] [facility] [address] [id number] [place] [address]- 0266 21 Jul, 2011 [facility] [place] [facility] [address] [id number] [place] [address]- 1156 14 Jul, 2011 [facility] [place] [facility] [address] [id number] [place] [address]- 7946 13 Jul, 2011 [facility] [place] [facility] [address] [id number] [place] [address]- 9218 07 Jul, 2011 [facility] [place] [facility] [address] [id number] [place] [address]- 2144 24 Jun, 2011 [facility] [place] [facility] [address] [facility] [id number] [place] [address]- 0540 23 Jun, 2011 [facility] [place] [facility] [address] [id number] [place] [address] 2546 23 Jun, 2011 [facility] [place] [facility] [address] [id number] [place] [address] 2546 14 Jun, 2011 [facility] [place] [facility] [address] [id number] [place] [address]- 9346 02 Jun, 2011 [facility] [place] [facility] [address] [id number] [place] [address] 2546 02 Jun, 2011 [facility] [place] [facility] [address] [id number] [place] [address] 2546 Jun, [facility] [address] [id number] [place] [address]- 7967 May, [facility] [place] [facility] [address] [id number] [place] [address]- 6722 May, [facility] [place] [facility] [address] [id number] [place] [address]- 8799 May, [facility] [place] [facility] [address] [id number] [place] [address]- 1932 May, [facility] [place] [facility] [address] [id number] [place] [address]- 2091 May, [facility] [place] [facility] [address] [id number] [place] [address]- 0544 May, [facility] [place] [facility] [address] [id number] [place] [address]- 2290 May, [facility] [place] [facility] [address] [id number] [place] [address]- 6812 Apr, [facility] [place] [facility] [address] [id number] [place] [address]- 7013 Apr, [facility] [place] [facility] [address] [id number] [place] [address]- 0575 Apr, [facility] [place] [facility] [address] [id number] [place] [address]- 1246 Apr, [facility] [place] [facility] [address] [id number], [place] [address]- 2585 Apr, [facility] [place] [facility] [address] [id number] [place] [address]- 6253 Apr, [facility] [place] [facility] [address] [id number] [place] [address]- 6274 13 Apr, 2011 [facility] [place] [facility] [address] [id number] [place] [address]- 3190 08 Apr, 2011 [facility] [place] [facility] [address] [id number] [place] [address]- 7916 05 Apr, 2011 [facility] [place] [facility] [address] [id number] [place] [address]- 4101 Mar, [facility] [place] [facility] [address] [id number] [place] [address]- 5946 Mar, [facility] [place] [facility] [address] [id number] [place] [address]- 2616 Mar, [facility] [place] [facility] [address] [id number] [place] [address]- 7219 Mar, [facility] [place] [facility] [address] [id number] [place] [address]- 1279 Mar, [facility] [place] [facility] [address] [id number] [place] [address]- 4399 Feb, [facility] [place] [facility] [address] [id number] [place] [address]- 7341 Feb, [facility] [place] [facility] [address] [id number] [place] [address]- 5883 Feb, [facility] [place] [facility] [address] [id number] [place] [address]- 7799 Dec, [facility] [place] [facility] [address] [id number] [place] [address]- 7424 Nov, [facility] [place] [facility] [address] [id number] [place] [address]- 6113 Apr, [facility] [place] [facility] [address] [id number] [place] [address]- 3259 20 Apr, 2010 [facility] [place] [facility] [address] [id number] [place] [address]- 9050 16 Apr, 2010 [facility] [place] [facility] [address] [id number] [place] [address]- 3506 13 Apr, 2010 [facility] [place] [facility] [address] [id number] [place] [address]- 9104 09 Apr, 2010 [facility] [address] [facility] [id number], [place] [address]- 9567 Apr, [facility] [address] [facility] [id number], [place] [address]- 7778 Apr, [facility] [address] [facility] [id number], [place] [address]- 3921 Apr, [facility] [address] [facility] [id number], [place] [address]- 5139 Mar, [facility] [address] [facility] [id number], [place] [address]- 8771 Mar, [facility] [address] [facility] [id number], [place] [address]- 8561 Mar, [facility] [id number], [place] [address]- 5688 Mar, [facility] [id number], [place] [address]- 3734 Mar, [facility] [id number], [place] [address]- 7555 Mar, [facility] [id number], [place] [address]- 3775 Mar, [facility] [id number], [place] [address]- 4446 Mar, [facility] [id number], [place] [address]- 8115 Mar, [facility] [address] [id number] [address]- 1036 Mar, IMMUNIZATIONS No Known Immunizations SOCIAL HISTORY Never Assessed REASON FOR VISIT f/u from hospice [place] PLAN OF CARE Activity Details Follow Up prn Reason: VITAL SIGNS MEDICATIONS Medication Instructions Dosage Frequency Start Date End Date Duration Status Multivitamins - Orally Once a day 1 capsule 24h Active Aspirin 81 MG Orally Once a day 1 tablet 24h Active Torsemide 20 mg Orally 2 times a day 1 tablet 12h Active Alavert 10 MG Orally Once a day 1 tablet on the tongue and allow to dissolve 24h Active Fish Oil 1000 MG Orally 3 times a day 1 capsule 8h Active Rosuvastatin Calcium 20 MG Orally Once a day 1 tablet 24h Active Arginine 2000 MG Orally TID 2,000 mg 8h Active Gabapentin 100 mg Orally Three times a day 1 capsule 8h 30 days Active Levemir FlexTouch 100 UNIT/ML Subcutaneous BID 28 units 12h Active Pyridium 200 mg Orally every 8 hours, PRN 1 tablet after meals Nov, Active Morphine Sulfate (Concentrate) 20 MG/ML Orally every 1 hr, prn pain 0.25-0.5 ml Nov, Active Acetaminophen 325 MG Orally every 6 hrs 2 tablets as needed 6h Nov, 14 days Active Clonidine HCl 0.3 MG Orally Twice a day 1 tablet 12h Active Lactulose 10 GM/15ML Orally twice a day 15 ml 12h Nov, Mar, 30 days Active Magnesium Oxide 250 MG Orally Once a day 1 tablet as needed 24h Active HydrALAZINE HCl 25 MG Orally Three times a day 1 tablet with food 8h Active Nystatin 588240 UNIT/GM Externally Twice a day till healed 1 application to affected area Nov, Active Simbrinza 1-0.2 % Ophthalmic Three times a day 1 drop into affected eye 8h Active Vitamin D3 5000 UNIT Orally Once a day at hs 1 capsule Active NovoLog Flexpen 100 UNIT/ML Subcutaneous 3 times a day before meals 20 units Active RESULTS No Results PROCEDURES Procedure Date Ordered Result Body Site Minor complication (15 mins) Jan 02, 2018 INSTRUCTIONS MEDICATIONS ADMINISTERED No Known Medications MEDICAL [...]
--- OUTSIDE RECORDS SUMMARY | 2018-04-22 22:56 | XMS REPORT ---
Author Author CLARITZA HOLMAN [facility] Address [address] [place] [address] Care Team Providers Care Equipment Maint Tech Name Role Phone CLARITZA HOLMAN Unavailable PROBLEMS Type Condition ICD9-CM Code CFB43-ZR Code Onset Dates Condition Status SNOMED Code Problem Severe sleep apnea G47.30 Active 73694989 Problem Iron deficiency anemia, unspecified iron deficiency anemia type D50.9 Active 33926777 Problem Stenosis of carotid artery, unspecified laterality I65.29 Active 28821736 Problem Decreased diffusion capacity R94.2 Active 46959420 Problem Coronary artery disease involving beaver coronary artery of beaver heart, angina presence unspecified I25.10 Active 3325334679119 Problem Generalized osteoarthritis M15.9 Active 519107122 Problem Aortic valve sclerosis I35.8 Active 37844367 Problem Essential hypertension I10 Active 60852361 Problem Renal osteodystrophy N25.0 Active 49990206 Problem Anxiety about health F41.8 Active 414526348 Problem 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 Active 7078876 Problem Type 2 diabetes mellitus with unspecified complications E11.8 Active 50093710 Problem Type 2 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 Active 48167471 Problem Chronic kidney disease, unspecified CKD stage N18.9 Active 685466932 Problem Pain R52 Active 72538489 Problem [facility] 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.4 Active 482341929 Problem Acute anxiety F41.9 Active 09791229 Problem Inability to bear weight R26.89 Active 031577941 Problem Type 2 diabetes mellitus with diabetic polyneuropathy E11.42 Active 314121949 Problem Type 2 diabetes mellitus with foot ulcer E11.621 Active 426092215 Problem Type 2 diabetes mellitus with hyperglycemia E11.65 Active 29413158 Problem Slow transit constipation K59.01 Active 08526708 Problem Bladder spasms N32.89 Active 945036558 Problem Chronic kidney disease (CKD), stage 4 (severe) N18.4 Active 118861902 Problem Other chronic pain G89.29 Active 95457327 Problem Diarrhea, unspecified type R19.7 Active 98030662 Problem Mixed hyperlipidemia E78.2 Active 291558594 Problem Trochanteric bursitis of left hip M70.62 Active 856299446118606 Problem Anemia in other chronic diseases classified elsewhere D63.8 Active 240353960 Problem Chronic kidney disease, stage 3 (moderate) N18.3 Active 532521937 Problem Port catheter in place Z95.828 Active 350822684 Problem Transient cerebral ischemia, unspecified type G45.9 Active 189075566 Problem Hypoxemia R09.02 Active 340903847 Problem BMI 50.0-59.9, adult Z68.43 Active 530555500 ALLERGIES No Information ENCOUNTERS Encounter Location Date Diagnosis [place] [address] [address] 17 Jan, 2018 [place] [address] [address]- 4835 14 Jan, 2018 Acute anxiety F41.9 [place] [address] 81992- 7726 04 Jan, 2018 Inability to bear weight R26.89 [facility] [employer] [facility] [address] [place] [id number] Dec, Low back pain M54.5 ; Other chronic pain G89.29 and Chronic kidney disease (CKD), stage 4 (severe) N18.4 [place] [address] [place] [id number] [place] [address] 82635- 2259 Dec, Type 2 diabetes mellitus with hyperglycemia E11.65 [place] [address] [place] [id number] [place] [address] 55654- 0774 Dec, [facility] [employer] [facility] [address] [place] [id number] Dec, Type 2 diabetes mellitus with hyperglycemia E11.65 ; Essential hypertension I10 ; Generalized osteoarthritis M15.9 ; Mixed hyperlipidemia E78.2 ; Hypoxia R09.02 ; Port catheter in place Z95.828 ; Anemia due to acute blood loss D62 ; Chronic kidney disease, unspecified CKD stage N18.9 and Severe sleep apnea G47.30 [facility] [address] [address] 14 Dec, 2017 Type 2 diabetes mellitus with hyperglycemia E11.65 [facility] [address] [place] [address] 86634- 3866 Dec, [facility] [address] [place] [id number] [place] [address] 26952- 9873 Dec, Type 2 diabetes mellitus with hyperglycemia E11.65 [facility] [address] [place] [address] 71925- 2225 Dec, Left leg pain M79.605 [place] [address] [place] [id number] [place] [address] 71278- 9597 Nov, Slow transit constipation K59.01 [place] [address] [place] [id number] [place] [address] 53419- 4301 Nov, [facility] [address] [place] [id number] Nov, Anemia due to acute blood loss D62 [facility] [address] [place] [id number] [place] [address] 73367- 7386 Nov, [place] [address] [place] [id number] [place] [address] 88593- 8539 Nov, Bladder spasms N32.89 [place] [address] [place] [id number] [place] [address] 28148- 2445 Nov, Pain R52 [facility] [address] [place] [id number] Nov, Anemia due to acute blood loss D62 [facility] [id number] [place] [address] 92872- 2600 Nov, Pain in right hip M25.551 and Pain in left hip M25.552 [facility] [id number] [place] [address] 48439- 8015 Nov, [facility] [address] [place] [id number] [place] [address] 58302- 8256 Nov, [facility] [address], [place] [address]- 2877 Nov, [facility] [address] [place] [id number] [place] [address] 18139- 7875 Nov, [facility] [address] [place] [id number] [place] [address] 13793- 7186 Oct, [facility] [address] [place] [id number] [place] [address] 15943- 9071 Oct, [facility] [employer] [facility] [address] [place] [id number] Oct, Encounter for examination for admission to group home Z02.2 ; Chronic kidney disease, unspecified CKD stage N18.9 ; Type 2 diabetes mellitus with unspecified complications E11.8 ; 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 ; Essential hypertension I10 ; Hypoxia R09.02 ; Severe sleep apnea G47.30 ; Stenosis of carotid artery, unspecified laterality I65.29 ; Generalized osteoarthritis M15.9 ; Coronary artery disease involving beaver coronary artery of beaver heart, angina presence unspecified I25.10 ; Port catheter in place Z95.828 and Hemorrhoids, unspecified hemorrhoid type K64.9 [facility] [address] [place] [id number] [place] [address] 66576- 0846 Oct, [facility] [address] [place] [id number] [place] [address] 08070- 2170 Oct, [facility] [address] [place] [id number] [place] [address] 29197- 8721 Oct, [facility] [address] [place] [id number] [place] [address] 74280- 5041 Oct, [facility] [address] [place] [id number] [place] [address] 93707 -8635 September, BMI 50.0-59.9, adult Z68.43 [facility] [address] [place] [id number] [place] [address] 45926- 0417 September, [place] [address] [place] [id number] [place] [address] 21837- 6323 September, [place] [address] 0[address]12- 0810 Aug, Type 2 diabetes mellitus with foot ulcer E11.621 ; Transient cerebral ischemia, unspecified type G45.9 ; Essential hypertension I10 ; Mixed hyperlipidemia E78.2 and BMI 50.0-59.9, adult Z68.43 [place] [address] 82106- 6261 Aug, [place] [address] 25271- 6970 14 Jul, 2017 Anxiety about health F41.8 and Mixed hyperlipidemia E78.[address] 29178- 1304 13 Jul, 2017 [place] [address] 28822- 5347 Jun, [place] [address] 91549- 5005 Jun, Type 2 diabetes mellitus with hyperglycemia E11.65 ; Type 2 diabetes mellitus with foot ulcer E11.621 ; Port catheter in place Z95.828 ; 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 ; Contact with and (suspected) exposure to potentially hazardous body fluids Z77.21 and BMI 50.0-59.9, adult Z68.43 [place] [address] [place] [id number] [place] [address] 20732- 9706 May, [address] 34126- 7970 May, Open wound of right great toe, subsequent encounter S91.101D [place] [address] [place] [id number] [place] [address] 62470- 6994 May, [place] [address] 84617- 2246 Apr, [place] [address] [address] 6824 Apr, [place] [address] [place] [id number] [place] [address] 20578- 9405 Apr, [place] [address] [place] [id number] [place] [address] 63581- 8597 Apr, Type 2 diabetes mellitus with diabetic polyneuropathy E11.42 [place] [address] [place] [id number] [place] [address] 01642- 6239 13 Apr, 2017 Open wound of right great toe, subsequent encounter S91.101D [place] [address] [place] [id number] [place] [address] 90808- 0243 08 Apr, 2017 Open wound of right great toe, subsequent encounter S91.101D ; Breast pain, left N64.4 ; Breast cancer screening Z12.31 ; Type 2 diabetes mellitus with foot ulcer E11.621 ; Essential hypertension I10 and BMI 50.0-59.9, adult Z68.43 [place] [address] [place] [id number] [place] [address] 32972- 4342 Mar, Encounter for immunization Z23 [place] [address] [place] [id number] [place] [address] 07688- 8091 Mar, [place] [address] [place] [id number] [place] [address] 66056- 7057 Mar, [place] [address] [place] [id number] [place] [address] 94580- 6351 Mar, Type 2 diabetes mellitus with diabetic polyneuropathy E11.42 ; Type 2 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 ; Type 2 diabetes mellitus with foot ulcer E11.621 ; Essential hypertension I10 ; Hypoxemia R09.02 and Generalized osteoarthritis M15.9 [place] [address] [place] [address] 47746- 2511 02 Mar, 2017 Chronic kidney disease, stage 3 (moderate) N18.3 ; Acute cystitis without hematuria N30.00 ; Essential hypertension I10 ; Muscle spasms of neck M62.838 ; Type 2 diabetes mellitus with diabetic polyneuropathy E11.42 and BMI 50.0-59.9, adult Z68.43 [facility] [address] [place] [id number] [place] [address] 68527- 4131 30 Feb, 2017 [facility] [address] [place] [id number] [place] [address] 59986 -8610 Feb, [facility] [address] [place] [id number] [place] [address] 68238- 1604 Feb, [facility] [address] [place] [id number] [place] [address] 40506- 6714 Feb, [facility] [address] [place] [id number] [place] [address] 96777- 2458 Feb, [facility] [address] [place] [id number] [place] [address] 03844- 6631 Feb, [facility] [address] [place] [id number] [place] [address] 76364- 9074 Feb, Mixed hyperlipidemia E78.2 [facility] [address] [place] [id number] [place] [address] 79800- 5026 Feb, [facility] [address] [place] [id number] [place] [address] 44086- 2214 Jan, [facility] [address] [place] [id number] [place] [address] 78599- 8273 14 Jan, 2017 Generalized osteoarthritis M15.9 [facility] [address] [place] [id number] [place] [address] 87319- 1876 Oct, [facility] [address] [place] [id number] [place] [address] 55782- 6858 Jul, [facility] [address] [place] [id number] [place] [address] 01573- 9043 Jul, [facility] [address] [place] [id number] [place] [address] 99660- 2507 Jul, Type 2 diabetes mellitus with hyperglycemia E11.65 ; Chronic kidney disease, stage 3 (moderate) N18.3 ; Type 2 diabetes mellitus with foot ulcer E11.621 ; Type 2 diabetes mellitus with diabetic polyneuropathy E11.42 ; Generalized osteoarthritis M15.9 ; Trochanteric bursitis of left hip M70.62 and Tinea pedis of both feet B35.3 [place] [address] [place] [id number] [place] [address] 98293- 9537 Jun, [place] [address] 57412- 4820 Apr, [place] [address] 58983- 9460 Apr, [place] [address] 76757- 5709 Mar, [place] [address] 83401- 2716 Feb, Encounter for immunization Z23 [place] [address] [place] [id number] [place] [address] 86150- 0580 Feb, [place] [address] 92976- 6103 Feb, Type 2 diabetes mellitus with hyperglycemia E11.65 ; Encounter for immunization Z23 ; Diarrhea, unspecified type R19.7 ; Essential hypertension I10 ; Mixed hyperlipidemia E78.2 ; Hypoxia R09.02 ; 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 and Type 2 diabetes mellitus with foot ulcer E11.621 [place] [address] [place] [id number] [place] [address] 55716- 7395 Jan, [address] 69220- 5966 Jan, Type 2 diabetes mellitus with hyperglycemia E11.65 and Pneumonia due to infectious organism, unspecified laterality, unspecified part of lung J18.9 [place] [address] [place] [id number] [place] [address] 44708- 9902 Jan, [facility] [address], [place] [address]- 3835 Jan, [facility] [address] [place] [id number] [place] [address] 20938- 0453 Oct, Type 2 diabetes mellitus with hyperglycemia E11.65 ; Generalized osteoarthritis M15.9 and Chronic prescription opiate use Z79.891 [facility] [address] [place] [id number] [place] [address] 21213- 5515 September, [facility] [address] [place] [id number] [place] [address] 15419- 6993 Aug, [facility] [address] [place] [id number] [place] [address] 85451- 6034 Aug, [facility] [address] [place] [id number] [place] [address] 13256- 3385 Aug, [facility] [address] [place] [id number] [place] [address] 13075- 1067 Aug, [facility] [address] [place] [address] 40707- 0204 Jun, [facility] [address] [place] [id number] [place] [address] 33612- 8539 Jun, Type 2 diabetes mellitus with hyperglycemia E11.65 ; Mixed hyperlipidemia E78.2 ; Vaginal itching L29.8 ; Neck muscle spasm M62.838 and Skin abrasion T14.8 [facility] [address], [place] [address]- 3760 Apr, [facility] [address] [place] [id number] [place] [address] 06870- 3217 Apr, [facility] [address] [place] [address] 55514- 1686 Mar, [facility] [address] [place] [address] 70103- 6590 Feb, [facility] [address] [place] [id number] [place] [address] 19524- 4641 Feb, Type 2 diabetes mellitus with hyperglycemia E11.65 ; Type 2 diabetes mellitus with foot ulcer E11.621 ; Type 2 diabetes mellitus with diabetic polyneuropathy E11.42 and Encounter for immunization Z23 [facility] [address] [place] [id number] [place] [address] 06795- 7076 Jan, Hypertension 401.9 ; Uncontrolled type 2 diabetes mellitus 250.02 ; Right shoulder pain 719.41 and Ulcer of heel and midfoot 707.14 [facility] [address] [place] [id number] [place] [address] 69606- 8129 Dec, Diabetes with other specified manifestations, type II or unspecified type, not stated as uncontrolled 250.80 ; Ulcer of heel and midfoot 707.14 ; Hypertension 401.9 ; Hip pain, left 719.45 and Acute anxiety 300.00 [place] [address] [place] [id number] [place] [address] 99463- 2906 Nov, [facility] [address] [place] [id number] [place] [address] 43725- 6724 Nov, [facility] [address] [place] [id number] [place] [address] 06477- 2522 September, Anxiety attack 300.01 and Cellulitis 682.9 [facility] [address] [place] [id number] [place] [address] 32847- 5274 September, [facility] [address] [place] [id number] [place] [address] 80500- 0075 September, [facility] [address] [place] [id number] [place] [address] 82128- 4270 September, [facility] [address] 13173- 9039 Aug, [facility] [address] [place] [id number] [place] [address] 25951- 6266 Aug, [facility] [address] 11944- 2546 13 Jul, 2014 [facility] [place] [facility] [address] [id number] [place] [address]- 8594 13 Jul, 2014 [facility] [place] [facility] [address] [id number] [place] [address]- 7856 05 Jul, 2014 [facility] [place] [facility] [address] [id number] [place] [address]- 3103 13 May, 2014 [facility] [place] [facility] [address] [id number] [place] [address]- 9366 May, [facility] [place] [facility] [address] [id number] [place] [address]- 6425 Mar, [facility] [place] [facility] [address] [id number] [place] [address]- 0450 Mar, [facility] [place] [facility] [address] [id number] [place] [address]- 6250 Mar, [facility] [place] [facility] [address] [id number] [place] [address]- 8840 07 Mar, 2014 [facility] [place] [facility] [address] [id number] [place] [address]- 2949 Mar, [facility] [place] [facility] [address] [id number] [place] [address]- 2246 Mar, [facility] [place] [facility] [address] [id number] [address]- 4527 Mar, [facility] [place] [facility] [address] [id number], [place] [address]- 2087 14 Feb, 2014 [facility] [place] [facility] [address] [id number] [place] [address]- 4457 14 Feb, 2014 [facility] [place] [facility] [address] [id number] [place] [address]- 8668 30 Jan, 2014 [facility] [place] [facility] [address] [id number] [place] [address]- 9230 30 Jan, 2014 [facility] [place] [facility] [address] [id number] [place] [address] 2549 26 Sep, 2013 [facility] [place] [facility] [address] [id number] [place] [address] 2546 26 Sep, 2013 [facility] [place] [facility] [address] [id number] [place] [address] 2546 25 Sep, 2013 [facility] [place] [facility] [address] [id number] [place] [address]- 6655 25 Sep, 2013 [facility] [place] [facility] [address] [id number] [place] [address]- 2540 25 Sep, 2013 [facility] [place] [facility] [address] [id number] [place] [address]- 3681 25 Sep, 2013 [facility] [place] [facility] [address] [id number] [place] [address]- 0621 18 Sep, 2013 [facility] [place] [facility] [address] [id number] [place] [address]- 254 18 Sep, 2013 [facility] [place] [facility] [address] [id number] [place] [address]- 6398 06 Sep, 2013 [facility] [place] [facility] [address] [id number] [place] [address]- 2541 06 Sep, 2013 [facility] [place] [facility] [address] [id number] [place] [address]- 4043 05 Sep, 2013 [facility] [place] [facility] [address] [id number] [place] [address] 2549 05 Sep, 2013 [facility] [place] [facility] [address] [id number] [place] [address] 2547 05 Sep, 2013 [facility] [place] [facility] [address] [id number] [place] [address] 2546 05 Sep, 2013 [facility] [place] [facility] [address] [id number] [place] [address]- 2547 05 Sep, 2013 [facility] [place] [facility] [address] [id number] [place] 8755 Jan, [facility] [place] [facility] [address] [id number] [place] [address]- 0074 Dec, [facility] [place] [facility] [address] [id number] [place] [address]- 4604 Dec, [facility] [place] [facility] [address] [id number] [place] [address]- 8752 Dec, [facility] [place] [facility] [address] [id number] [place] [address]- 7785 Dec, [facility] [place] [facility] [address] [id number] [place] [address]- 2101 Dec, [facility] [place] [facility] [address] [id number] [place] [address]- 1298 Dec, [facility] [place] [facility] [address] [id number] [place] [address]- 5049 Dec, [facility] [place] [facility] [address] [id number] [place] [address]- 6448 Dec, [facility] [place] [facility] [address] [id number] [place] [address]- 5619 Dec, [facility] [place] [facility] [address] [id number] [place] [address]- 8372 Dec, [facility] [place] [facility] [address] [id number] [place] [address]- 9889 Nov, [facility] [place] [facility] [address] [id number] [place] [address]- 3452 Nov, [facility] [place] [facility] [address] [id number] [place] [address]- 6473 Nov, [facility] [place] [facility] [address] [id number] [place] [address]- 7357 Nov, [facility] [place] [facility] [address] [id number] [place] [address]- 7876 Nov, [facility] [place] [facility] [address] [id number], [place] [address]- 8483 Nov, [facility] [place] [facility] [address] [id number] [place] [address]- 9742 Oct, [facility] [place] [facility] [address] [id number] [place] [address]- 0998 Oct, [facility] [place] [facility] [address] [id number] [place] [address]- 3089 Oct, [facility] [place] [facility] [address] [id number] [place] [address]- 5785 Oct, [facility] [place] [facility] [address] [id number] [place] [address]- 9845 Oct, [facility] [place] [facility] [address] [id number] [place] [address]- 7877 Oct, [facility] [place] [facility] [address] [id number] [place] [address]- 4023 Oct, [facility] [place] [facility] [address] [id number] [place] [address]- 3255 Oct, [facility] [place] [facility] [address] [id number] [place] [address] Oct, [facility] [place] [facility] [address] [id number] [place] [address] Oct, [facility] [place] [facility] [address] [id number] [place] [address] Oct, [facility] [place] [facility] [address] [id number], [place] [address] Oct, [facility] [place] [facility] [address] [id number] [place] [address] September, [facility] [place] [facility] [address] [id number] [place] [address] September, [facility] [place] [facility] [address] [id number] [place] [address] September, [facility] [place] [facility] [address] [id number] [place] [address] 11 Aug, 2013 [facility] [place] [facility] [address] [id number] [place] [address] Aug, [facility] [place] [facility] [address] [id number] [place] [address] Jul, [facility] [place] [facility] [address] [id number] [place] [address] Jul, [facility] [place] [facility] [address] [id number] [place] [address] Jul, [facility] [place] [facility] [address] [id number] [place] [address] Jul, [facility] [place] [facility] [address] [id number] [place] [address] Jul, [facility] [place] [facility] [address] [id number] [place] [address] Jul, [facility] [place] [facility] [address] [id number] [place] [address] Jul, [facility] [place] [facility] [address] [id number] [place] [address] Jul, [facility] [place] [facility] [address] [id number] [place] [address] Jul, [facility] [place] [facility] [address] [id number] [place] [address] Jul, [facility] [place] [facility] [address] [id number] [place] [address] Jun, [facility] [place] [facility] [address] [id number] [place] [address] Jun, [facility] [place] [facility] [address] [id number] [place] [address] Jun, [facility] [place] [facility] [address] [id number] [place] [address] Jun, [facility] [address] [id number] [place] [address] May, [facility] [place] [facility] [address] [id number] [place] [address] 5[address] May, [facility] [address] [id number] [place] [address] 5289 Apr, [facility] [place] [facility] [address] [id number] [place] [address] 9133 Apr, [facility] [address] [id number] [place] [address] 3922 Apr, [facility] [place] [facility] [address] [id number] [place] [address]- 6722 Apr, [facility] [address] [id number] [place] [address]- 0273 Apr, [facility] [place] [facility] [address] [id number] [place] [address]- 0444 Apr, [facility] [place] [facility] [address] [id number] [place] [address]- 5468 Apr, [facility] [place] [facility] [address] [id number] [place] [address]- 2278 Apr, [facility] [place] [facility] [address] [id number] [place] [address]- 7276 Mar, [facility] [place] [facility] [address] [id number] [place] [address]- 3272 Mar, [facility] [place] [facility] [address] [id number] [place] [address]- 3190 Mar, [facility] [place] [facility] [address] [id number] [place] [address]- 1760 Mar, [facility] [place] [facility] [address] [id number] [place] [address]- 2829 Mar, [facility] [place] [facility] [address] [id number] [place] [address]- 2547 08 Mar, 2013 [facility] [address] [id number] [place] [address]- 5768 30 Feb, 2013 [facility] [place] [facility] [address] [id number] [place] [address]- 6096 30 Feb, 2013 [facility] [address] [id number] [place] [address]- 2196 Feb, [facility] [place] [facility] [address] [id number] [place] [address]- 9093 18 Feb, 2013 [facility] [address] [id number] [place] [address]- 0881 Feb, [facility] [place] [facility] [address] [id number] [place] [address]- 6036 Feb, [facility] [place] [facility] [address] [id number] [place] [address]- 3617 Feb, [facility] [address] [id number] [place] [address]- 3517 27 Jan, 2013 [facility] [place] [facility] [address] [id number] [place] [address]- 6490 26 Jan, 2013 [facility] [address] [id number] [place] [address]- 8050 19 Jan, 2013 [facility] [place] [facility] [address] [id number] [place] [address]- 1087 05 Jan, 2013 [facility] [place] [facility] [address] [id number] [place] [address]- 4937 Dec, [facility] [place] [facility] [address] [id number] [place] [address]- 7093 Dec, [facility] [place] [facility] [address] [id number] [place] [address]- 2546 Dec, [facility] [place] [facility] [address] [id number] [place] [address]- 9590 Nov, [facility] [address] [id number] [place] [address]- 6166 Nov, [facility] [place] [facility] [address] [id number] [place] [address]- 3543 Nov, [facility] [place] [facility] [address] [id number] [place] [address]- 7025 Nov, [facility] [place] [facility] [address] [id number] [place] [address]- 9615 Nov, [facility] [place] [facility] [address] [id number] [place] [address]- 1397 Nov, [facility] [place] [facility] [address] [id number] [place] [address]- 4314 Oct, [facility] [place] [facility] [address] [id number] [place] [address]- 4639 Oct, [facility] [place] [facility] [address] [id number] [place] [address]- 3710 Oct, [facility] [place] [facility] [address] [id number] [place] [address]- 4586 Oct, [facility] [place] [facility] [address] [id number] [place] [address]- 0856 Oct, [facility] [place] [facility] [address] [id number] [place] [address]- 5306 Oct, [facility] [place] [facility] [address] [id number] [place] [address]- 5761 September, [facility] [place] [facility] [address] [id number] [place] [address]- 5853 September, [facility] [place] [facility] [address] [id number] [place] [address]- 2190 September, [facility] [place] [facility] [address] [id number] [place] [address]- 2735 September, [facility] [place] [facility] [address] [id number], [place] [address] 23 Aug, 2012 [facility] [address] [id number] [place] [address]- 9392 03 Aug, 2012 [facility] [address] [id number] [place] [address]- 8690 28 Jul, 2012 [facility] [address] [facility] [id number] [place] [address]- 6258 21 Jul, 2012 [facility] [address] [id number] [place] [address]- 1101 18 Jul, 2012 [facility] [address] [id number] [place] [address]- 7400 15 Jul, 2012 [facility] [address] [id number] [place] [address]- 9135 13 Jul, 2012 [facility] [address] [facility] [id number] [place] [address]- 9477 08 Jul, 2012 [facility] [address] [id number] [place] [address]- 2898 20 Jun, 2012 [facility] [address] [id number] [place] [address]- 5491 13 Jun, 2012 [facility] [address] [facility] [id number] [place] [address]- 4173 May, [facility] [address] [facility] [id number] [place] [address]- 4275 04 May, 2012 [facility] [address] [id number] [place] [address]- 0433 18 Apr, 2012 [facility] [address] [id number] [place] [address]- 4063 18 Apr, 2012 [facility] [address] [facility] [id number] [place] [address]- 7538 13 Apr, 2012 [facility] [address] [facility] [id number] [place] [address]- 1764 13 Apr, 2012 [facility] [place] [facility] [address] [id number] [place] [address]- 1004 Apr, [facility] [place] [facility] [address] [id number] [place] [address]- 7986 Apr, [facility] [place] [facility] [address] [id number] [place] [address] Apr, [facility] [place] [facility] [address] [id number] [place] [address]- 9158 Apr, [facility] [place] [facility] [address] [id number] [place] [address]- 8917 Apr, [facility] [place] [facility] [address] [id number] [place] [address]- 7960 Apr, [facility] [place] [facility] [address] [id number] [place] [address]- 2021 Apr, [facility] [place] [facility] [address] [id number] [place] [address]- 4387 Apr, [facility] [place] [facility] [address] [id number] [place] [address]- 3020 Apr, [facility] [place] [facility] [address] [id number] [place] [address]- 7066 Apr, [facility] [place] [facility] [address] [id number] [place] [address]- 1526 Apr, [facility] [place] [facility] [address] [id number] [place] [address]- 8664 Apr, [facility] [place] [facility] [address] [id number] [place] [address]- 0697 Mar, [facility] [place] [facility] [address] [id number] [place] [address]- 3361 Mar, [facility] [place] [facility] [address] [id number] [place] [address]- 0616 16 Mar, 2012 [facility] [place] [facility] [address] [id number] [place] [address]- 2516 Mar, [facility] [place] [facility] [address] [id number] [place] [address]- 4898 Mar, [facility] [place] [facility] [address] [id number] [place] [address]- 8285 Mar, [facility] [place] [facility] [address] [facility] [id number] [place] [address]- 9828 Mar, [facility] [place] [facility] [address] [id number] [place] [address]- 0907 Mar, [facility] [place] [facility] [address] [id number] [place] [address]- 4817 Mar, [facility] [place] [facility] [address] [id number] [place] [address]- 3919 Mar, [facility] [place] [facility] [address] [facility] [id number] [place] [address]- 8957 Feb, [facility] [place] [facility] [address] [id number] [place] [address]- 5025 Feb, [facility] [place] [facility] [address] [id number] [place] [address]- 4121 Feb, [facility] [place] [facility] [address] [id number] [place] [address]- 0021 Feb, [facility] [place] [facility] [address] [id number], [place] [address]- 8556 Feb, [facility] [place] [facility] [address] [id number], [place] [address]- 2251 Feb, [facility] [place] [facility] [address] [id number] [place] [address]- 3422 Jan, [facility] [place] [facility] [address] [facility] [id number], [place] [address]- 0540 Dec, [facility] [place] [facility] [address] [id number] [place] [address]- 1814 Dec, [facility] [place] [facility] [address] [id number] [place] [address]- 1582 Dec, [facility] [address] [id number] [place] [address]- 6710 Dec, [facility] [address] [id number] [place] [address]- 3925 Nov, [facility] [address] [id number] [place] [address]- 6545 Nov, [facility] [address] [id number] [place] [address]- 2719 Nov, [facility] [address] [id number] [place] [address]- 5805 Nov, [facility] [address] [id number] [place] [address]- 6170 Oct, [facility] [address] [id number] [place] [address]- 7121 Oct, [facility] [address] [id number] [place] [address]- 9217 Oct, [facility] [address] [id number] [place] [address]- 7519 Oct, [facility] [address] [id number] [place] [address]- 8547 Oct, [facility] [address] [id number] [place] [address]- 9835 September, [facility] [address] [id number] [place] [address]- 6814 September, [facility] [place] [facility] [address] [id number] [place] [address]- 7035 September, [facility] [place] [facility] [address] [id number] [place] [address]- 4546 September, [facility] [address] [id number] [place] [address]- 9661 September, [facility] [address] [id number] [place] [address]- 5089 September, [facility] [address] [id number] [place] [address]- 9362 September, [facility] [address] [id number] [place] [address]- 6590 September, [facility] [address] [id number] [place] [address]- 7705 Aug, [facility] [address] [id number] [place] [address]- 2100 Aug, [facility] [address] [id number] [place] [address]- 3012 Aug, [facility] [address] [id number] [place] [address]- 6432 Aug, [facility] [address] [id number] [place] [address]- 2085 Aug, [facility] [address] [id number] [place] [address]- 3821 17 Aug, 2011 [facility] [address] [id number] [place] [address]- 2453 Aug, [facility] [address] [id number] [place] [address]- 2201 Aug, [facility] [place] [facility] [address] [id number] [place] [address]- 3654 10 Aug, 2011 [facility] [place] [facility] [address] [id number] [place] [address]- 9034 Aug, [facility] [place] [facility] [address] [id number] [place] [address]- 4284 Aug, [facility] [place] [facility] [address] [id number] [place] [address]- 6225 Aug, [facility] [place] [facility] [address] [id number], [place] [address]- 5968 29 Jul, 2011 [facility] [address] [id number] [place] [address]- 4943 28 Jul, 2011 [facility] [place] [facility] [address] [id number] [place] [address]- 7466 27 Jul, 2011 [facility] [place] [facility] [address] [facility] [id number] [place] [address]- 4486 23 Jul, 2011 [facility] [place] [facility] [address] [id number] [place] [address]- 9981 21 Jul, 2011 [facility] [place] [facility] [address] [id number] [place] [address]- 8740 21 Jul, 2011 [facility] [place] [facility] [address] [facility] [id number] [place] [address]- 8116 14 Jul, 2011 [facility] [address] [facility] [id number] [place] [address]- 2803 13 Jul, 2011 [facility] [place] [facility] [address] [facility] [id number] [place] [address]- 4181 07 Jul, 2011 [facility] [place] [facility] [address] [id number] [place] [address]- 8099 24 Jun, 2011 [facility] [place] [facility] [address] [facility] [id number] [place] [address]- 7105 Jun, [facility] [place] [facility] [address] [facility] [id number] [place] [address]- 9384 23 Jun, 2011 [facility] [place] [facility] [address] [facility] [id number] [place] [address]- 5978 14 Jun, 2011 [facility] [place] [facility] [address] [id number] [place] [address]- 1414 Jun, [facility] [place] [facility] [address] [id number] [place] [address]- 2094 Jun, [facility] [place] [facility] [address] [facility] [id number], [place] [address]- 7373 Jun, [facility] [place] [facility] [address] [id number] [place] [address]- 1164 May, [facility] [address] [id number] [place] [address]- 8926 May, [facility] [address] [id number] [place] [address]- 2546 May, [facility] [address] [id number] [place] [address]- 3296 May, [facility] [address] [id number] [place] [address]- 0195 May, [facility] [address] [id number] [place] [address]- 6786 May, [facility] [address] [id number] [place] [address]- 9507 May, [facility] [address] [id number] [place] [address]- 7651 Apr, [facility] [address] [id number] [place] [address]- 4132 Apr, [facility] [address] [id number] [place] [address]- 9624 Apr, [facility] [address] [id number] [place] [address]- 2192 Apr, [facility] [address] [id number] [place] [address]- 9706 Apr, [facility] [address] [id number] [place] [address]- 5828 Apr, [facility] [place] [facility] [address] [id number] [place] [address]- 1350 Apr, [facility] [address] [id number] [place] [address]- 2546 08 Apr, 2011 [facility] [address] [id number] [place] [address]- 5738 Apr, [facility] [place] [facility] [address] [id number] [place] [address]- 0687 Mar, [facility] [place] [facility] [address] [id number] [place] [address]- 8036 Mar, [facility] [place] [facility] [address] [id number] [place] [address]- 1876 Mar, [facility] [place] [facility] [address] [id number] [place] [address]- 1189 Mar, [facility] [place] [facility] [address] [id number] [place] [address]- 3462 Mar, [facility] [place] [facility] [address] [id number] [place] 1728 Feb, [facility] [place] [facility] [address] [id number] [place] 1611 Feb, [facility] [place] [facility] [address] [id number] [place] [address]- 6954 Feb, [facility] [place] [facility] [address] [id number] [place] [address]- 0145 Dec, [facility] [place] [facility] [address] [id number] [place] [address]- 7410 Nov, [facility] [place] [facility] [address] [id number] [place] [address]- 0260 Apr, [facility] [place] [facility] [address] [id number] [place] [address]- 8361 20 Apr, 2010 [facility] [place] [facility] [address] [id number] [place] [address]- 9021 16 Apr, 2010 [facility] [place] [facility] [address] [id number] [place] [id number] 13 Apr, 2010 [facility] [place] [facility] [address] [id number] [place] [address] 09 Apr, 2010 [facility] [place] [facility] [address] [facility] [id number], [place] [address] Apr, [facility] [address] [facility] [id number], [place] [address] Apr, [facility] [address] [facility] [id number], [place] [address] Apr, [facility] [id number] [address] Mar, [facility] [address] [facility] [id number], [place] [address] Mar, [facility] [id number], [place] [address] Mar, [facility] [id number], [place] [address] Mar, [facility] [id number], [place] [address] Mar, [facility] [id number], [place] [address] Mar, [facility] [id number], [place] [address] Mar, [facility] [id number], [place] [address] Mar, [facility] [id number], [place] [address] Mar, [facility] [address] [id number] [address] Mar, IMMUNIZATIONS No Known Immunizations SOCIAL HISTORY Never Assessed REASON FOR VISIT penitentiary PLAN OF CARE VITAL SIGNS MEDICATIONS Medication Instructions Dosage Frequency Start Date End Date Duration Status NovoLog Flexpen 100 UNIT/ML Subcutaneous 3 times a day before meals 20 units Active Levemir FlexTouch 100 UNIT/ML Subcutaneous BID 28 units 12h Active RESULTS No Results PROCEDURES No Known [...]
--- OUTSIDE RECORDS SUMMARY | 2018-04-22 22:57 | XMS REPORT ---
Author Author CARLOS LARA [facility] Address [address] [place] [address] Care Team Providers Care Combination Worker Name Role Phone CARLOS LARA Unavailable PROBLEMS Type Condition ICD9-CM Code JDM24-UX Code Onset Dates Condition Status SNOMED Code Problem Severe sleep apnea G47.30 Active 61531640 Problem Iron deficiency anemia, unspecified iron deficiency anemia type D50.9 Active 46547240 Problem Stenosis of carotid artery, unspecified laterality I65.29 Active 37636775 Problem Decreased diffusion capacity R94.2 Active 41642609 Problem Coronary artery disease involving [place] coronary artery of [place] heart, angina presence unspecified I25.10 Active 1430130429240 Problem Generalized osteoarthritis M15.9 Active 563930706 Problem Aortic valve sclerosis I35.8 Active 47473995 Problem Essential hypertension I10 Active 63709894 Problem Renal osteodystrophy N25.0 Active 71289754 Problem Anxiety about health F41.8 Active 576656261 Problem 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 Active 7280161 Problem Type 2 diabetes mellitus with unspecified complications E11.8 Active 88334083 Problem Type 2 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 Active 25934817 Problem Chronic kidney disease, unspecified CKD stage N18.9 Active 892705483 Problem Pain R52 Active 89894045 Problem senior living 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.4 Active 221566338 Problem Acute anxiety F41.9 Active 49583453 Problem Inability to bear weight R26.89 Active 171097067 Problem Type 2 diabetes mellitus with diabetic polyneuropathy E11.42 Active 025658519 Problem Type 2 diabetes mellitus with foot ulcer E11.621 Active 302382180 Problem Type 2 diabetes mellitus with hyperglycemia E11.65 Active 29286844 Problem Slow transit constipation K59.01 Active 56027256 Problem Bladder spasms N32.89 Active 156149853 Problem Chronic kidney disease (CKD), stage 4 (severe) N18.4 Active 191612668 Problem Other chronic pain G89.29 Active 81959299 Problem Diarrhea, unspecified type R19.7 Active 48687039 Problem Mixed hyperlipidemia E78.2 Active 445202425 Problem Trochanteric bursitis of left hip M70.62 Active 037660796256074 Problem Anemia in other chronic diseases classified elsewhere D63.8 Active 629847897 Problem Chronic kidney disease, stage 3 (moderate) N18.3 Active 456159022 Problem Port catheter in place Z95.828 Active 320103865 Problem Transient cerebral ischemia, unspecified type G45.9 Active 205703511 Problem Hypoxemia R09.02 Active 133220441 Problem BMI 50.0-59.9, adult Z68.43 Active 985648894 ALLERGIES No Information ENCOUNTERS Encounter Location Date Diagnosis [place] [address] [address] 17 Jan, 2018 [place] [address] 53971- 5787 14 Jan, 2018 Acute anxiety F41.9 [place] [address] 87261- 2092 04 Jan, 2018 Inability to bear weight R26.89 [facility] [address] [place], [place] [id number] Dec, Low back pain M54.5 ; Other chronic pain G89.29 and Chronic kidney disease (CKD), stage 4 (severe) N18.4 [place] [address] [place] [id number] [place] [address] 68244- 9948 Dec, Type 2 diabetes mellitus with hyperglycemia E11.65 [place] [address] 25548- 6999 Dec, [facility] [address] [place] [id number] Dec, Type 2 diabetes mellitus with hyperglycemia E11.65 ; Essential hypertension I10 ; Generalized osteoarthritis M15.9 ; Mixed hyperlipidemia E78.2 ; Hypoxia R09.02 ; Port catheter in place Z95.828 ; Anemia due to acute blood loss D62 ; Chronic kidney disease, unspecified CKD stage N18.9 and Severe sleep apnea G47.30 [place] [address] [place] [address] 17848- 2086 14 Dec, 2017 Type 2 diabetes mellitus with hyperglycemia E11.65 [facility] [address] [place] [id number] [place] [address] 38620- 2788 Dec, [facility] [address] [place] [id number] [place] [address] 70868- 2185 Dec, Type 2 diabetes mellitus with hyperglycemia E11.65 [facility] [address] [place] [id number] [place] [address] 40707- 8505 Dec, Left leg pain M79.605 [place] [address] [place] [id number] [place] [address] 48737- 0903 Nov, Slow transit constipation K59.01 [place] [address] [place] [id number] [place] [address] 78027- 0321 Nov, [facility] [address] [place] [id number] Nov, Anemia due to acute blood loss D62 [place] [address] [place] [id number] [place] [address] 77454- 2110 Nov, [place] [address] [place] [id number] [place] [address] 43602- 0723 Nov, Bladder spasms N32.89 [place] [address] [place] [id number] [place] [address] 21957- 8197 Nov, Pain R52 [facility] [address] [place] [id number] Nov, Anemia due to acute blood loss D62 [place] [address] [place] [id number] [place] [address] 02698- 2123 Nov, Pain in right hip M25.551 and Pain in left hip M25.552 [place] [address] [place] [id number] [place] [address] 02502- 7348 Nov, [place] [address] [place] [id number] [place] [address] 79604- 3108 Nov, [facility] [id number] [place] [address] 23408- 0654 Nov, [facility] [address] [place] [id number] [place] [address] 88144- 0050 Nov, [facility] [address] [place] [id number] [place] [address] 21615- 2206 Oct, [facility] [address] [place] [id number] [place] [address] 74214- 5576 Oct, [facility] [address] [place] [id number] Oct, Encounter for examination for admission to detention Z02.2 ; Chronic kidney disease, unspecified CKD stage N18.9 ; Type 2 diabetes mellitus with unspecified complications E11.8 ; senior living 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.4 ; Essential hypertension I10 ; Hypoxia R09.02 ; Severe sleep apnea G47.30 ; Stenosis of carotid artery, unspecified laterality I65.29 ; Generalized osteoarthritis M15.9 ; Coronary artery disease involving [place] coronary artery of [place] heart, angina presence unspecified I25.10 ; Port catheter in place Z95.828 and Hemorrhoids, unspecified hemorrhoid type K64.9 [facility] [address] [place] [id number] [place] [address] 39741- 2757 Oct, [facility] [address] [place] [address] 67895- 9307 Oct, [facility] [address] [place] [id number] [place] [address] 38672- 0912 Oct, [facility] [address] [place] [id number] [place] [address] 17232- 8428 Oct, [facility] [address] [place] [id number] [place] [address] 96276 -1108 September, BMI 50.0-59.9, adult Z68.43 [facility] [address] [place] [id number] [place] [address] 68338- 1867 September, [place] [address] [place] [id number] [place] [address] 93030- 0740 September, [place] [address] 01430- 0067 Aug, Type 2 diabetes mellitus with foot ulcer E11.621 ; Transient cerebral ischemia, unspecified type G45.9 ; Essential hypertension I10 ; Mixed hyperlipidemia E78.2 and BMI 50.0-59.9, adult Z68.43 [place] [address] [place] [id number] [place] [address] 20171- 2984 Aug, [place] [address] 74572- 3699 Jul, Anxiety about health F41.8 and Mixed hyperlipidemia E78.[address] 22416- 0774 Jul, [place] [address] 88480- 1771 Jun, [place] [address] [place] [id number] [place] [address] 25957- 1900 Jun, Type 2 diabetes mellitus with hyperglycemia E11.65 ; Type 2 diabetes mellitus with foot ulcer E11.621 ; Port catheter in place Z95.828 ; 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 ; Contact with and (suspected) exposure to potentially hazardous body fluids Z77.21 and BMI 50.0-59.9, adult Z68.43 [place] [address] [place] [id number] [place] [address] 62993- 6223 May, [address] 48970- 8621 May, Open wound of right great toe, subsequent encounter S91.101D [place] [address] [place] [id number] [place] [address] 55943- 8339 May, [place] [address] 53603- 8959 Apr, [place] [address] [address] 1353 Apr, [place] [address] [place] [id number] [place] [address] 95176- 8748 Apr, [place] [address] [place] [id number] [place] [address] 95373- 5437 Apr, Type 2 diabetes mellitus with diabetic polyneuropathy E11.42 [place] [address] [place] [id number] [place] [address] 97719- 9773 13 Apr, 2017 Open wound of right great toe, subsequent encounter S91.101D [place] [address] [place] [id number] [place] [address] 75388- 0660 08 Apr, 2017 Open wound of right great toe, subsequent encounter S91.101D ; Breast pain, left N64.4 ; Breast cancer screening Z12.31 ; Type 2 diabetes mellitus with foot ulcer E11.621 ; Essential hypertension I10 and BMI 50.0-59.9, adult Z68.43 [place] [address] [place] [id number] [place] [address] 58674- 9186 Mar, Encounter for immunization Z23 [place] [address] [place] [id number] [place] [address] 45910- 0427 Mar, [place] [address] [place] [id number] [place] [address] 60292- 3309 Mar, [place] [address] [place] [id number] [place] [address] 03030- 0987 Mar, Type 2 diabetes mellitus with diabetic polyneuropathy E11.42 ; Type 2 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 ; Type 2 diabetes mellitus with foot ulcer E11.621 ; Essential hypertension I10 ; Hypoxemia R09.02 and Generalized osteoarthritis M15.9 [place] [address] [address] 0500 02 Mar, 2017 Chronic kidney disease, stage 3 (moderate) N18.3 ; Acute cystitis without hematuria N30.00 ; Essential hypertension I10 ; Muscle spasms of neck M62.838 ; Type 2 diabetes mellitus with diabetic polyneuropathy E11.42 and BMI 50.0-59.9, adult Z68.43 [facility] [address] [place] [id number] [place] [address] 96438- 7362 30 Feb, 2017 [facility] [address] [place] [id number] [place] [address] 70619 -4701 Feb, [facility] [address] [place] [id number] [place] [address] 79078- 0382 Feb, [facility] [address] [place] [id number] [place] [address] 12697- 3615 Feb, [facility] [address] [place] [id number] [place] [address] 36198- 7317 Feb, [facility] [address] [place] [id number] [place] [address] 12249- 8380 Feb, [facility] [address] [place] [id number] [place] [address] 87122- 0652 Feb, Mixed hyperlipidemia E78.2 [facility] [address] [place] [id number] [place] [address] 87667- 7070 Feb, [facility] [address] [place] [id number] [place] [address] 86015- 3380 Jan, [facility] [address] [place] [id number] [place] [address] 78490- 8277 14 Jan, 2017 Generalized osteoarthritis M15.9 [facility] [address] [place] [id number] [place] [address] 22873- 3541 Oct, [facility] [address] [place] [id number] [place] [address] 96582- 7995 27 Jul, 2016 [facility] [address] [place] [id number] [place] [address] 76141- 2544 13 Jul, 2016 [facility] [address] [place] [id number] [place] [address] 56616- 8439 Jul, Type 2 diabetes mellitus with hyperglycemia E11.65 ; Chronic kidney disease, stage 3 (moderate) N18.3 ; Type 2 diabetes mellitus with foot ulcer E11.621 ; Type 2 diabetes mellitus with diabetic polyneuropathy E11.42 ; Generalized osteoarthritis M15.9 ; Trochanteric bursitis of left hip M70.62 and Tinea pedis of both feet B35.3 [place] [address] [place] [id number] [place] [address] 47935- 5984 Jun, [place] [address] 96279- 2901 Apr, [place] [address] 93227- 6323 Apr, [place] [address] 79241- 5891 Mar, [place] [address] 11998- 3543 Feb, Encounter for immunization Z23 [place] [id number] [place] [address] 85390- 5619 Feb, [address] 60487- 9023 Feb, Type 2 diabetes mellitus with hyperglycemia E11.65 ; Encounter for immunization Z23 ; Diarrhea, unspecified type R19.7 ; Essential hypertension I10 ; Mixed hyperlipidemia E78.2 ; Hypoxia R09.02 ; 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 and Type 2 diabetes mellitus with foot ulcer E11.621 [place] [address] [place] [id number] [place] [address] 31903- 8951 Jan, [address] 78991- 4307 Jan, Type 2 diabetes mellitus with hyperglycemia E11.65 and Pneumonia due to infectious organism, unspecified laterality, unspecified part of lung J18.[address] 90360- 7348 Jan, [facility] [address] [place] [address] 39629- 5665 Jan, [facility] [address] [place] [id number] [place] [address] 21751- 8689 Oct, Type 2 diabetes mellitus with hyperglycemia E11.65 ; Generalized osteoarthritis M15.9 and Chronic prescription opiate use Z79.891 [facility] [address] [place] [id number] [place] [address] 69285- 6936 September, [facility] [address] [place] [id number] [place] [address] 57668- 9620 Aug, [facility] [address] [place] [id number] [place] [address] 32227- 1797 Aug, [facility] [address] [place] [id number] [place] [address] 72298- 4725 Aug, [facility] [address] [place] [id number] [place] [address] 71392- 0345 Aug, [facility] [address] [place] [id number] [place] [address] 01064- 7872 Jun, [facility] [address] [place] [id number] [place] [address] 60012- 5291 Jun, Type 2 diabetes mellitus with hyperglycemia E11.65 ; Mixed hyperlipidemia E78.2 ; Vaginal itching L29.8 ; Neck muscle spasm M62.838 and Skin abrasion T14.8 [facility] [address] [address]- 6842 Apr, [facility] [address] [place] [id number] [place] [address] 68456- 2575 Apr, [facility] [address] [place] [id number] [place] [address] 21204- 5565 Mar, [facility] [address] [place] [id number] [place] [address] 17492- 3862 Feb, [facility] [address] [place] [address] 22681- 4486 Feb, Type 2 diabetes mellitus with hyperglycemia E11.65 ; Type 2 diabetes mellitus with foot ulcer E11.621 ; Type 2 diabetes mellitus with diabetic polyneuropathy E11.42 and Encounter for immunization Z23 [facility] [address] [place] [id number] [place] [address] 22162- 2935 Jan, Hypertension 401.9 ; Uncontrolled type 2 diabetes mellitus 250.02 ; Right shoulder pain 719.41 and Ulcer of heel and midfoot 707.14 [facility] [address] [place] [id number] [place] [address] 07210- 3544 Dec, Diabetes with other specified manifestations, type II or unspecified type, not stated as uncontrolled 250.80 ; Ulcer of heel and midfoot 707.14 ; Hypertension 401.9 ; Hip pain, left 719.45 and Acute anxiety 300.00 [facility] [address] [place] [id number] [place] [address] 60595- 7390 Nov, [facility] [address] [place] [id number] [place] [address] 33367- 3628 Nov, [facility] [address] [place] [id number] [place] [address] 49073- 5034 September, Anxiety attack 300.01 and Cellulitis 682.9 [facility] [address] [place] [id number] [place] [address] 11771- 2759 September, [facility] [address] [place] [id number] [place] [address] 30374- 0422 September, [facility] [address] [place] [id number] [place] [address] 34519- 3638 September, [facility] [address] [place] [id number] [place] [address] 31755- 7491 Aug, [facility] [address] [place] [id number] [place] [address] 55764- 5577 Aug, [facility] [address] [place] [address]- 7988 13 Jul, 2014 [facility] [place] [facility] [address] [id number] [place] [address]- 2762 13 Jul, 2014 [facility] [place] [facility] [address] [id number] [place] [address]- 5647 05 Jul, 2014 [facility] [place] [facility] [address] [id number] [place] [address]- 3709 13 May, 2014 [facility] [place] [facility] [address] [id number] [place] [address]- 9227 13 May, 2014 [facility] [place] [facility] [address] [id number] [place] [address]- 5546 11 Mar, 2014 [facility] [place] [facility] [address] [id number] [place] [address]- 1167 Mar, [facility] [place] [facility] [address] [id number] [place] [address]- 5472 07 Mar, 2014 [facility] [place] [facility] [address] [id number] [place] [address]- 1789 07 Mar, 2014 [facility] [place] [facility] [address] [id number] [place] [address]- 8501 Mar, [facility] [place] [facility] [address] [facility] [id number] [place] [address]- 2454 Mar, [facility] [place] [facility] [address] [id number] [place] [address]- 1649 07 Mar, 2014 [facility] [place] [facility] [address] [id number] [address]- 2184 14 Feb, 2014 [facility] [place] [facility] [address] [id number] [place] [address]- 5899 14 Feb, 2014 [facility] [place] [facility] [address] [id number] [place] [address]- 6590 30 Jan, 2014 [facility] [place] [facility] [address] [id number] [place] [address]- 9209 30 Jan, 2014 [facility] [place] [facility] [address] [id number] [place] [address] 2544 26 Sep, 2013 [facility] [place] [facility] [address] [id number] [place] [address] 2546 26 Sep, 2013 [facility] [place] [facility] [address] [id number] [place] [address] 2549 25 Sep, 2013 [facility] [place] [facility] [address] [id number] [place] [address] 2544 25 Sep, 2013 [facility] [place] [facility] [address] [id number] [place] [address] 2549 25 Sep, 2013 [facility] [place] [facility] [address] [id number] [place] [address]- 2945 25 Sep, 2013 [facility] [place] [facility] [address] [id number] [place] [address]- 7054 18 Sep, 2013 [facility] [place] [facility] [address] [id number] [place] [address]- 8073 18 Sep, 2013 [facility] [place] [facility] [address] [id number] [place] [address]- 9349 06 Sep, 2013 [facility] [place] [facility] [address] [id number] [place] [address]- 254 06 Sep, 2013 [facility] [place] [facility] [address] [id number] [place] [address] 2547 05 Sep, 2013 [facility] [place] [facility] [address] [id number] [place] [address] 2541 05 Sep, 2013 [facility] [place] [facility] [address] [id number] [place] [address] 2540 05 Sep, 2013 [facility] [place] [facility] [address] [id number] [place] [address] 2546 05 Sep, 2013 [facility] [place] [facility] [address] [id number] [place] [address] 2547 05 Sep, 2013 [facility] [place] [facility] [address] [id number] [place] [address]- 1827 Jan, [facility] [place] [facility] [address] [id number] [place] [address]- 5043 Dec, [facility] [place] [facility] [address] [id number] [place] [address]- 5180 Dec, [facility] [place] [facility] [address] [id number] [place] [address]- 2387 Dec, [facility] [place] [facility] [address] [id number] [place] [address]- 9230 Dec, [facility] [place] [facility] [address] [id number] [place] [address]- 6552 Dec, [facility] [place] [facility] [address] [id number] [place] [address]- 8891 Dec, [facility] [place] [facility] [address] [id number] [place] [address]- 6603 Dec, [facility] [place] [facility] [address] [id number] [place] [address]- 4676 Dec, [facility] [place] [facility] [address] [id number] [place] [address]- 4624 Dec, [facility] [place] [facility] [address] [id number] [place] [address]- 2214 Dec, [facility] [place] [facility] [address] [id number] [place] [address]- 7066 Nov, [facility] [place] [facility] [address] [id number] [place] [address]- 0642 Nov, [facility] [place] [facility] [address] [id number] [place] [address]- 1498 Nov, [facility] [place] [facility] [address] [id number] [place] [address]- 4238 Nov, [facility] [place] [facility] [address] [id number] [place] [address]- 8267 Nov, [facility] [place] [facility] [address] [id number] [place] [address]- 9186 Nov, [facility] [place] [facility] [address] [id number] [place] [address]- 3484 Oct, [facility] [place] [facility] [address] [id number] [place] [address]- 6179 Oct, [facility] [place] [facility] [address] [id number] [place] [address]- 7814 Oct, [facility] [place] [facility] [address] [id number] [place] [address] Oct, [facility] [place] [facility] [address] [id number] [place] [address] Oct, [facility] [place] [facility] [address] [id number] [place] [address] Oct, [facility] [place] [facility] [address] [id number] [place] [address] Oct, [facility] [place] [facility] [address] [id number] [place] [address] Oct, [facility] [place] [facility] [address] [id number] [place] [address] Oct, [facility] [place] [facility] [address] [id number] [place] [address] Oct, [facility] [place] [facility] [address] [id number] [place] [address] Oct, [facility] [place] [facility] [address] [id number] [place] [address] Oct, [facility] [place] [facility] [address] [id number] [place] [address] September, [facility] [place] [facility] [address] [id number] [place] [address] September, [facility] [place] [facility] [address] [id number] [place] [address] September, [facility] [place] [facility] [address] [id number] [place] [address] Aug, [facility] [place] [facility] [address] [id number] [place] [address] Aug, [facility] [place] [facility] [address] [id number] [place] [address] Jul, [facility] [place] [facility] [address] [id number] [place] [address] Jul, [facility] [place] [facility] [address] [id number] [place] [address] Jul, [facility] [place] [facility] [address] [id number] [place] [address] Jul, [facility] [place] [facility] [address] [id number] [place] [address] Jul, [facility] [place] [facility] [address] [id number] [place] [address] Jul, [facility] [place] [facility] [address] [id number] [place] [address] Jul, [facility] [place] [facility] [address] [id number] [place] [address] 3696 Jul, [facility] [place] [facility] [address] [id number] [place] [address] 0391 Jul, [facility] [place] [facility] [address] [id number] [place] [address] 9[address] Jul, [facility] [place] [facility] [address] [id number] [place] [address] 9342 Jun, [facility] [place] [facility] [address] [id number] [place] [address] 9046 Jun, [facility] [place] [facility] [address] [id number] [place] [address] 4797 Jun, [facility] [place] [facility] [address] [id number] [place] [address] 2668 Jun, [facility] [address] [id number] [place] [address] 1481 May, [facility] [address] [id number] [place] [address] 3147 May, [facility] [address] [id number] [place] [address] 9659 Apr, [facility] [place] [facility] [address] [id number] [place] [address]- 3458 Apr, [facility] [address] [id number] [place] [address]- 3214 Apr, [facility] [address] [id number] [place] [address]- 6839 Apr, [facility] [address] [id number] [place] [address]- 3134 Apr, [facility] [address] [id number] [place] [address]- 2365 Apr, [facility] [address] [id number] [place] [address]- 0238 Apr, [facility] [address] [facility] [id number] [place] [address]- 9688 Apr, [facility] [address] [id number] [place] [address] 8567 Mar, [facility] [place] [facility] [address] [id number] [place] [address]- 1183 Mar, [facility] [place] [facility] [address] [id number] [place] [address]- 8231 Mar, [facility] [place] [facility] [address] [id number] [place] [address]- 9171 Mar, [facility] [place] [facility] [address] [facility] [address] [id number], [place] [address] 1495 Mar, [facility] [place] [facility] [address] [id number] [place] [address]- 3653 08 Mar, 2013 [facility] [place] [facility] [address] [id number] [place] [address]- 4369 30 Feb, 2013 [facility] [place] [facility] [address] [id number] [place] [address] 9143 30 Feb, 2013 [facility] [place] [facility] [address] [id number] [place] [address] 2221 Feb, [facility] [place] [facility] [address] [id number] [place] [address]- 9584 18 Feb, 2013 [facility] [place] [facility] [address] [id number] [place] [address]- 2943 Feb, [facility] [place] [facility] [address] [id number] [place] [address]- 9078 Feb, [facility] [place] [facility] [address] [id number] [place] [address]- 2431 04 Feb, 2013 [facility] [place] [facility] [address] [id number] [place] [address]- 7193 27 Jan, 2013 [facility] [place] [facility] [address] [id number] [place] [address]- 0463 26 Jan, 2013 [facility] [place] [facility] [address] [id number] [place] [address]- 2059 19 Jan, 2013 [facility] [place] [facility] [address] [id number] [place] [address]- 6804 05 Jan, 2013 [facility] [place] [facility] [address] [id number] [place] [address]- 7450 Dec, [facility] [place] [facility] [address] [id number] [place] [address]- 3046 Dec, [facility] [place] [facility] [address] [id number] [place] [address]- 1168 08 Dec, 2012 [facility] [place] [facility] [address] [id number] [place] [address]- 8840 Nov, [facility] [place] [facility] [address] [id number] [place] [address]- 1160 Nov, [facility] [place] [facility] [address] [id number] [place] [address]- 6501 16 Nov, 2012 [facility] [place] [facility] [address] [id number] [place] [address]- 6210 Nov, [facility] [place] [facility] [address] [id number] [place] [address]- 1138 Nov, [facility] [place] [facility] [address] [id number] [place] [address]- 8260 Nov, [facility] [place] [facility] [address] [id number] [place] [address]- 5792 Oct, [facility] [place] [facility] [address] [id number] [place] [address]- 7456 Oct, [facility] [place] [facility] [address] [id number] [place] [address]- 7212 Oct, [facility] [place] [facility] [address] [id number] [place] [address]- 3061 Oct, [facility] [place] [facility] [address] [id number] [place] [address]- 7314 Oct, [facility] [place] [facility] [address] [id number] [place] [address]- 2749 Oct, [facility] [place] [facility] [address] [id number] [place] [address]- 9458 September, [facility] [place] [facility] [address] [id number] [place] [address]- 5357 September, [facility] [place] [facility] [address] [id number] [place] [address]- 9427 September, [facility] [place] [facility] [address] [id number] [place] [address]- 4717 September, [facility] [place] [facility] [address] [id number] [place] [address]- 3985 23 Aug, 2012 [facility] [address] [id number] [place] [address]- 4095 03 Aug, 2012 [facility] [address] [id number] [place] [address] 1916 28 Jul, 2012 [facility] [address] [id number] [place] [address]- 0552 21 Jul, 2012 [facility] [address] [id number] [place] [address]- 7563 18 Jul, 2012 [facility] [address] [id number] [place] [address]- 2891 15 Jul, 2012 [facility] [address] [id number] [place] [address]- 9948 13 Jul, 2012 [facility] [address] [id number] [place] [address]- 7180 08 Jul, 2012 [facility] [address] [id number] [place] [address]- 1277 20 Jun, 2012 [facility] [address] [id number] [place] [address]- 0701 13 Jun, 2012 [facility] [address] [id number] [place] [address]- 6683 17 May, 2012 [facility] [address] [id number] [place] [address]- 3281 May, [facility] [address] [id number] [place] [address]- 3232 18 Apr, 2012 [facility] [address] [id number] [place] [address]- 3433 18 Apr, 2012 [facility] [address] [id number] [place] [address]- 6268 13 Apr, 2012 [facility] [address] [id number] [place] [address]- 1138 13 Apr, 2012 [facility] [place] [facility] [address] [id number] [place] [address]- 3724 10 Apr, 2012 [facility] [place] [facility] [address] [id number] [place] [address]- 9226 Apr, [facility] [place] [facility] [address] [id number] [place] [address] Apr, [facility] [place] [facility] [address] [id number] [place] [address]- 7443 Apr, [facility] [place] [facility] [address] [id number] [place] [address]- 3279 Apr, [facility] [place] [facility] [address] [id number] [place] [address]- 7950 Apr, [facility] [place] [facility] [address] [id number] [place] [address]- 2012 Apr, [facility] [place] [facility] [address] [id number] [place] [address]- 1658 Apr, [facility] [place] [facility] [address] [id number] [place] [address]- 0786 Apr, [facility] [place] [facility] [address] [id number] [place] [address]- 1459 Apr, [facility] [place] [facility] [address] [id number], [place] [address]- 7266 Apr, [facility] [place] [facility] [address] [id number], [place] [address]- 8685 Apr, [facility] [place] [facility] [address] [id number] [place] [address]- 8259 Mar, [facility] [place] [facility] [address] [id number] [place] [address]- 2804 Mar, [facility] [place] [facility] [address] [facility] [id number], [place] [address]- 9668 16 Mar, 2012 [facility] [place] [facility] [address] [id number], [place] [address]- 0576 Mar, [facility] [place] [facility] [address] [id number] [place] [address]- 5960 Mar, [facility] [place] [facility] [address] [facility] [address] [id number], [place] [address]- 9368 Mar, [facility] [place] [facility] [address] [facility] [id number] [place] [address]- 6342 Mar, [facility] [place] [facility] [address] [facility] [id number] [place] [address]- 6196 Mar, [facility] [place] [facility] [address] [facility] [id number] [place] [address], [place] [address]- 2304 Mar, [facility] [place] [facility] [address] [facility] [address] [id number] [place] [address]- 8161 Mar, [facility] [place] [facility] [id number], [place] [address] 3000 Feb, [facility] [place] [facility] [address] [facility] [id number] [place] [address]- 4813 Feb, [facility] [place] [facility] [id number] [place] [address]- 5462 Feb, [facility] [place] [facility] [address] [id number], [place] [address]- 2773 Feb, [facility] [place] [facility] [address] [facility] [address] [id number], [place] [address]- 6515 Feb, [facility] [place] [facility] [address] [facility] [address] [id number], [place] [address]- 5950 Feb, [facility] [place] [facility] [address] [facility] [address] [id number], [place] [address]- 9735 Jan, [facility] [place] [facility] [address] [facility] [address] [id number], [place] [address]- 9223 Dec, [facility] [place] [facility] [address] [id number], [place] [address]- 0238 Dec, [facility] [place] [facility] [address] [id number] [place] [address] 2546 Dec, [facility] [place] [facility] [address] [id number] [place] [address]- 9876 Dec, [facility] [place] [facility] [address] [id number] [place] [address]- 2546 Nov, [facility] [place] [facility] [address] [id number] [place] [address]- 1296 Nov, [facility] [place] [facility] [address] [id number] [place] [address]- 2549 Nov, [facility] [place] [facility] [address] [id number] [place] [address]- 4766 Nov, [facility] [place] [facility] [address] [id number] [place] [address]- 5064 Oct, [facility] [place] [facility] [address] [id number] [place] [address]- 6702 Oct, [facility] [place] [facility] [address] [id number] [place] [address]- 0605 Oct, [facility] [place] [facility] [address] [id number] [place] [address]- 0950 Oct, [facility] [place] [facility] [address] [id number] [place] [address]- 9093 Oct, [facility] [place] [facility] [address] [id number] [place] [address]- 0942 September, [facility] [place] [facility] [address] [id number] [place] [address]- 8355 September, [facility] [place] [facility] [address] [id number] [place] [address]- 4896 September, [facility] [place] [facility] [address] [id number] [place] [address]- 6216 September, [facility] [place] [facility] [address] [id number] [place] [address]- 0713 September, [facility] [address] [id number] [place] [address]- 8165 September, [facility] [place] [facility] [address] [id number] [place] [address]- 0710 September, [facility] [address] [id number] [place] [address]- 3225 September, [facility] [address] [id number] [place] [address]- 1363 Aug, [facility] [address] [id number] [place] [address]- 5953 Aug, [facility] [address] [id number] [place] [address]- 8660 Aug, [facility] [address] [id number] [place] [address]- 4958 Aug, [facility] [address] [id number] [place] [address]- 2389 Aug, [facility] [address] [id number] [place] [address]- 9333 Aug, [facility] [place] [facility] [address] [id number] [place] [address]- 2470 Aug, [facility] [place] [facility] [address] [id number] [place] [address]- 6079 Aug, [facility] [place] [facility] [address] [id number], [place] [address]- 2678 Aug, [facility] [place] [facility] [address] [id number] [place] [address]- 7504 Aug, [facility] [place] [facility] [address] [id number] [place] [address]- 6847 Aug, [facility] [place] [facility] [address] [id number] [place] [address]- 5929 Aug, [facility] [place] [facility] [address] [id number] [place] [address]- 8456 29 Jul, 2011 [facility] [place] [facility] [address] [id number] [place] [address]- 7576 28 Jul, 2011 [facility] [place] [facility] [address] [id number] [place] [address] 2546 27 Jul, 2011 [facility] [place] [facility] [address] [id number] [place] [address]- 7756 23 Jul, 2011 [facility] [place] [facility] [address] [id number] [place] [address] 2546 21 Jul, 2011 [facility] [place] [facility] [address] [id number] [place] [address]- 7836 21 Jul, 2011 [facility] [place] [facility] [address] [id number] [place] [address]- 1686 14 Jul, 2011 [facility] [place] [facility] [address] [id number] [place] [address]- 8566 13 Jul, 2011 [facility] [place] [facility] [address] [id number] [place] [address]- 9953 07 Jul, 2011 [facility] [place] [facility] [address] [id number] [place] [address]- 9303 24 Jun, 2011 [facility] [place] [facility] [address] [facility] [id number] [place] [address]- 4872 23 Jun, 2011 [facility] [place] [facility] [address] [id number] [place] [address] 2546 23 Jun, 2011 [facility] [place] [facility] [address] [id number] [place] [address] 2546 14 Jun, 2011 [facility] [place] [facility] [address] [id number] [place] [address]- 3896 02 Jun, 2011 [facility] [place] [facility] [address] [id number] [place] [address] 2546 02 Jun, 2011 [facility] [place] [facility] [address] [id number] [place] [address] 2546 Jun, [facility] [address] [id number] [place] [address]- 2401 May, [facility] [place] [facility] [address] [id number] [place] [address]- 1414 May, [facility] [place] [facility] [address] [id number] [place] [address]- 6663 May, [facility] [place] [facility] [address] [id number] [place] [address]- 7075 May, [facility] [place] [facility] [address] [id number] [place] [address]- 1954 May, [facility] [place] [facility] [address] [id number] [place] [address]- 7951 May, [facility] [place] [facility] [address] [id number] [place] [address]- 0499 May, [facility] [place] [facility] [address] [id number] [place] [address]- 9314 Apr, [facility] [place] [facility] [address] [id number] [place] [address]- 0888 Apr, [facility] [place] [facility] [address] [id number] [place] [address]- 0967 Apr, [facility] [place] [facility] [address] [id number] [place] [address]- 3660 Apr, [facility] [place] [facility] [address] [id number], [place] [address]- 3090 Apr, [facility] [place] [facility] [address] [id number] [place] [address]- 3483 Apr, [facility] [place] [facility] [address] [id number] [place] [address]- 6908 13 Apr, 2011 [facility] [place] [facility] [address] [id number] [place] [address]- 9635 08 Apr, 2011 [facility] [place] [facility] [address] [id number] [place] [address]- 0792 05 Apr, 2011 [facility] [place] [facility] [address] [id number] [place] [address]- 6687 Mar, [facility] [place] [facility] [address] [id number] [place] [address]- 2146 Mar, [facility] [place] [facility] [address] [id number] [place] [address]- 2976 Mar, [facility] [place] [facility] [address] [id number] [place] [address]- 5133 Mar, [facility] [place] [facility] [address] [id number] [place] [address]- 7235 Mar, [facility] [place] [facility] [address] [id number] [place] [address]- 1338 Feb, [facility] [place] [facility] [address] [id number] [place] [address]- 1603 Feb, [facility] [place] [facility] [address] [id number] [place] [address]- 6541 Feb, [facility] [place] [facility] [address] [id number] [place] [address]- 2367 Dec, [facility] [place] [facility] [address] [id number] [place] [address]- 4841 Nov, [facility] [place] [facility] [address] [id number] [place] [address]- 8575 Apr, [facility] [place] [facility] [address] [id number] [place] [address]- 8843 20 Apr, 2010 [facility] [place] [facility] [address] [id number] [place] [address]- 4787 16 Apr, 2010 [facility] [place] [facility] [address] [id number] [place] [address]- 1286 13 Apr, 2010 [facility] [place] [facility] [address] [id number] [place] [address]- 3346 09 Apr, 2010 [facility] [address] [facility] [address] [id number], [place] [address]- 7379 Apr, [facility] [id number], [place] [address]- 0212 Apr, [facility] [address] [facility] [address] [id number], [place] [address]- 5930 Apr, [facility] [id number], [place] [address] Mar, [facility] [address] [facility] [address] [id number], [place] [address] Mar, [facility] [id number], [place] [address] Mar, [facility] [id number], [place] [address] Mar, [facility] [id number], [place] [address] Mar, [facility] [id number], [place] [address] Mar, [facility] [id number], [place] [address] Mar, [facility] [id number], [place] [address] Mar, [facility] [id number], [place] [address] Mar, [facility] [id number], [place] [address] Mar, IMMUNIZATIONS No Known Immunizations SOCIAL HISTORY Never Assessed REASON FOR VISIT [facility] PLAN OF CARE VITAL SIGNS MEDICATIONS Unknown [...]
--- OUTSIDE RECORDS SUMMARY | 2018-04-22 22:57 | XMS REPORT ---
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 Name Role Phone CARLOS LARA Unavailable PROBLEMS Type Condition ICD9-CM Code YTY30-EM Code Onset Dates Condition Status SNOMED Code Problem Severe sleep apnea G47.30 Active 26376406 Problem Iron deficiency anemia, unspecified iron deficiency anemia type D50.9 Active 33398483 Problem Stenosis of carotid artery, unspecified laterality I65.29 Active 31386153 Problem Decreased diffusion capacity R94.2 Active 06355460 Problem Coronary artery disease involving pilot point coronary artery of pilot point heart, angina presence unspecified I25.10 Active 6201501754070 Problem Generalized osteoarthritis M15.9 Active 173168377 Problem Aortic valve sclerosis I35.8 Active 58219215 Problem Essential hypertension I10 Active 64927896 Problem Renal osteodystrophy N25.0 Active 43071384 Problem Anxiety about health F41.8 Active 622097485 Problem 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 Active 2995111 Problem Type 2 diabetes mellitus with unspecified complications E11.8 Active 97371917 Problem Type 2 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 Active 39750699 Problem Chronic kidney disease, unspecified CKD stage N18.9 Active 374541196 Problem Pain R52 Active 83936076 Problem FDC 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.4 Active 645397011 Problem Acute anxiety F41.9 Active 39257519 Problem Inability to bear weight R26.89 Active 695442496 Problem Type 2 diabetes mellitus with diabetic polyneuropathy E11.42 Active 399170365 Problem Type 2 diabetes mellitus with foot ulcer E11.621 Active 210019837 Problem Type 2 diabetes mellitus with hyperglycemia E11.65 Active 24859681 Problem Slow transit constipation K59.01 Active 75343862 Problem Bladder spasms N32.89 Active 668775013 Problem Chronic kidney disease (CKD), stage 4 (severe) N18.4 Active 714241168 Problem Other chronic pain G89.29 Active 29160395 Problem Diarrhea, unspecified type R19.7 Active 40140064 Problem Mixed hyperlipidemia E78.2 Active 100574501 Problem Trochanteric bursitis of left hip M70.62 Active 651256340742808 Problem Anemia in other chronic diseases classified elsewhere D63.8 Active 343013333 Problem Chronic kidney disease, stage 3 (moderate) N18.3 Active 721188225 Problem Port catheter in place Z95.828 Active 023117184 Problem Transient cerebral ischemia, unspecified type G45.9 Active 920032088 Problem Hypoxemia R09.02 Active 145520701 Problem BMI 50.0-59.9, adult Z68.43 Active 553799560 ALLERGIES No Information ENCOUNTERS Encounter Location Date Diagnosis [place] [address] 67[address]- [address] 17 Jan, 2018 [place] [address] 32788- 1032 14 Jan, 2018 Acute anxiety F41.9 [place] [address] 66761- 6631 04 Jan, 2018 Inability to bear weight R26.89 [facility] [employer] [facility] [address] [place], [place] [id number] Dec, Low back pain M54.5 ; Other chronic pain G89.29 and Chronic kidney disease (CKD), stage 4 (severe) N18.4 [place] [address] [place] [id number] [place] [address] 83881- 5540 Dec, Type 2 diabetes mellitus with hyperglycemia E11.65 [place] [address] 53814- 5366 Dec, [facility] [employer] [address] [place] [id number] Dec, Type 2 diabetes mellitus with hyperglycemia E11.65 ; Essential hypertension I10 ; Generalized osteoarthritis M15.9 ; Mixed hyperlipidemia E78.2 ; Hypoxia R09.02 ; Port catheter in place Z95.828 ; Anemia due to acute blood loss D62 ; Chronic kidney disease, unspecified CKD stage N18.9 and Severe sleep apnea G47.30 [place] [id number] [place] [address] 93598- 2624 14 Dec, 2017 Type 2 diabetes mellitus with hyperglycemia E11.65 [facility] [address] [place] [id number] [place] [address] 08206- 5417 Dec, [facility] [address] [place] [id number] [place] [address] 15366- 3464 Dec, Type 2 diabetes mellitus with hyperglycemia E11.65 [facility] [address] [place] [id number] [place] [address] 02611- 6069 Dec, Left leg pain M79.605 [place] [address] [place] [id number] [place] [address] 14386- 8723 Nov, Slow transit constipation K59.01 [place] [address] [place] [id number] [place] [address] 35244- 1252 Nov, [facility] [address] [place] [id number] Nov, Anemia due to acute blood loss D62 [place] [address] [place] [id number] [place] [address] 11935- 4542 Nov, [place] [address] [place] [id number] [place] [address] 17092- 9429 Nov, Bladder spasms N32.89 [place] [address] [place] [id number] [place] [address] 76552- 7691 Nov, Pain R52 [facility] [address] [place] [id number] Nov, Anemia due to acute blood loss D62 [place] [address] [place] [id number] [place] [address] 97874- 7710 Nov, Pain in right hip M25.551 and Pain in left hip M25.552 [place] [address] [place] [id number] [place] [address] 04803- 9939 Nov, [place] [address] [place] [id number] [place] [address] 50702- 4902 Nov, [facility] [id number] [place] [address] 23007- 9977 Nov, [facility] [address] [place] [id number] [place] [address] 29102- 8585 Nov, [facility] [address] [place] [id number] [place] [address] 94009- 7070 Oct, [facility] [address] [place] [id number] [place] [address] 41910- 8570 Oct, [facility] [address] [place] [id number] Oct, Encounter for examination for admission to alf Z02.2 ; Chronic kidney disease, unspecified CKD stage N18.9 ; Type 2 diabetes mellitus with unspecified complications E11.8 ; FDC 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.4 ; Essential hypertension I10 ; Hypoxia R09.02 ; Severe sleep apnea G47.30 ; Stenosis of carotid artery, unspecified laterality I65.29 ; Generalized osteoarthritis M15.9 ; Coronary artery disease involving pilot point coronary artery of pilot point heart, angina presence unspecified I25.10 ; Port catheter in place Z95.828 and Hemorrhoids, unspecified hemorrhoid type K64.9 [facility] [address] [place] [id number] [place] [address] 09825- 0060 Oct, [facility] [address] [place] [address] 50206- 6645 Oct, [facility] [address] [place] [id number] [place] [address] 42747- 9249 Oct, [facility] [address] [place] [id number] [place] [address] 19690- 9053 Oct, [facility] [address] [place] [id number] [place] [address] 63213 -3866 September, BMI 50.0-59.9, adult Z68.43 [facility] [address] [place] [id number] [place] [address] 17333- 0438 September, [place] [address] [place] [id number] [place] [address] 40943- 0437 September, [place] [address] 58797- 1877 Aug, Type 2 diabetes mellitus with foot ulcer E11.621 ; Transient cerebral ischemia, unspecified type G45.9 ; Essential hypertension I10 ; Mixed hyperlipidemia E78.2 and BMI 50.0-59.9, adult Z68.43 [place] [address] [place] [id number] [place] [address] 91343- 4622 Aug, [place] [address] 42958- 0436 Jul, Anxiety about health F41.8 and Mixed hyperlipidemia E78.[address] 19335- 6756 Jul, [place] [address] 47269- 3452 Jun, [place] [address] [place] [id number] [place] [address] 84164- 5401 Jun, Type 2 diabetes mellitus with hyperglycemia E11.65 ; Type 2 diabetes mellitus with foot ulcer E11.621 ; Port catheter in place Z95.828 ; 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 ; Contact with and (suspected) exposure to potentially hazardous body fluids Z77.21 and BMI 50.0-59.9, adult Z68.43 [place] [address] [place] [id number] [place] [address] 68391- 5154 May, [address] 07247- 8324 May, Open wound of right great toe, subsequent encounter S91.101D [place] [address] [place] [id number] [place] [address] 01253- 6159 May, [place] [address] 12872- 2510 Apr, [place] [address] [address] 2199 Apr, [place] [address] [place] [id number] [place] [address] 84435- 7375 Apr, [place] [address] [place] [id number] [place] [address] 57727- 5475 Apr, Type 2 diabetes mellitus with diabetic polyneuropathy E11.42 [place] [address] [place] [id number] [place] [address] 85769- 3303 13 Apr, 2017 Open wound of right great toe, subsequent encounter S91.101D [place] [address] [place] [id number] [place] [address] 34269- 7742 08 Apr, 2017 Open wound of right great toe, subsequent encounter S91.101D ; Breast pain, left N64.4 ; Breast cancer screening Z12.31 ; Type 2 diabetes mellitus with foot ulcer E11.621 ; Essential hypertension I10 and BMI 50.0-59.9, adult Z68.43 [place] [address] [place] [id number] [place] [address] 32164- 1272 Mar, Encounter for immunization Z23 [place] [address] [place] [id number] [place] [address] 30703- 6364 Mar, [place] [address] [place] [id number] [place] [address] 04837- 9092 Mar, [place] [address] [place] [id number] [place] [address] 12963- 7059 Mar, Type 2 diabetes mellitus with diabetic polyneuropathy E11.42 ; Type 2 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 ; Type 2 diabetes mellitus with foot ulcer E11.621 ; Essential hypertension I10 ; Hypoxemia R09.02 and Generalized osteoarthritis M15.9 [place] [address] [address] 2622 02 Mar, 2017 Chronic kidney disease, stage 3 (moderate) N18.3 ; Acute cystitis without hematuria N30.00 ; Essential hypertension I10 ; Muscle spasms of neck M62.838 ; Type 2 diabetes mellitus with diabetic polyneuropathy E11.42 and BMI 50.0-59.9, adult Z68.43 [facility] [address] [place] [id number] [place] [address] 51223- 1880 30 Feb, 2017 [facility] [address] [place] [id number] [place] [address] 59804 -6729 Feb, [facility] [address] [place] [id number] [place] [address] 96955- 5044 Feb, [facility] [address] [place] [id number] [place] [address] 72273- 6340 Feb, [facility] [address] [place] [id number] [place] [address] 45340- 3001 Feb, [facility] [address] [place] [id number] [place] [address] 20598- 3192 Feb, [facility] [address] [place] [id number] [place] [address] 68421- 2422 Feb, Mixed hyperlipidemia E78.2 [facility] [address] [place] [id number] [place] [address] 19077- 1198 Feb, [facility] [address] [place] [id number] [place] [address] 75126- 2458 Jan, [facility] [address] [place] [id number] [place] [address] 63277- 5820 14 Jan, [address] [facility] [address] [place] [id number] [place] [address] 42954- 1803 Oct, [facility] [address] [place] [id number] [place] [address] 50967- 7851 27 Jul, 2016 [facility] [address] [place] [id number] [place] [address] 34805- 2543 13 Jul, [address] [facility] [address] [place] [id number] [place] [address] 74041- 8188 Jul, Type 2 diabetes mellitus with hyperglycemia E11.65 ; Chronic kidney disease, stage 3 (moderate) N18.3 ; Type 2 diabetes mellitus with foot ulcer E11.621 ; Type 2 diabetes mellitus with diabetic polyneuropathy E11.42 ; Generalized osteoarthritis M15.9 ; Trochanteric bursitis of left hip M70.62 and Tinea pedis of both feet B35.3 [place] [address] [place] [id number] [place] [address] 48860- 7837 Jun, [place] [address] 60899- 1245 Apr, [place] [address] 80502- 3965 Apr, [place] [address] 66058- 0363 Mar, [place] [address] 57853- 2971 Feb, Encounter for immunization Z23 [place] [id number] [place] [address] 10604- 4561 Feb, [address] 26652- 4285 Feb, Type 2 diabetes mellitus with hyperglycemia E11.65 ; Encounter for immunization Z23 ; Diarrhea, unspecified type R19.7 ; Essential hypertension I10 ; Mixed hyperlipidemia E78.2 ; Hypoxia R09.02 ; 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 [address] [place] [address] 66015- 0678 Jan, [facility] [address] [place] [id number] [place] [address] 67821- 6406 Oct, Type 2 diabetes mellitus with hyperglycemia E11.65 ; Generalized osteoarthritis M15.9 and Chronic prescription opiate use Z79.891 [facility] [address] [place] [id number] [place] [address] 08945- 1600 September, [facility] [address] [place] [id number] [place] [address] 31658- 5278 Aug, [facility] [address] [place] [id number] [place] [address] 26810- 9192 Aug, [facility] [address] [place] [id number] [place] [address] 24242- 0893 Aug, [facility] [address] [place] [id number] [place] [address] 91097- 5431 Aug, [facility] [address] [place] [id number] [place] [address] 57866- 7464 Jun, [facility] [address] [place] [id number] [place] [address] 38317- 3601 Jun, Type 2 diabetes mellitus with hyperglycemia E11.65 ; Mixed hyperlipidemia E78.2 ; Vaginal itching L29.8 ; Neck muscle spasm M62.838 and Skin abrasion T14.8 [facility] [address] [address] 1921 Apr, [facility] [address] [place] [id number] [place] [address] 93761- 4982 Apr, [facility] [address] [place] [id number] [place] [address] 67517- 1018 Mar, [facility] [address] [place] [id number] [place] [address] 50070- 3998 Feb, [facility] [address] [place] [address] 14537- 5759 Feb, Type 2 diabetes mellitus with hyperglycemia E11.65 ; Type 2 diabetes mellitus with foot ulcer E11.621 ; Type 2 diabetes mellitus with diabetic polyneuropathy E11.42 and Encounter for immunization Z23 [facility] [address] [place] [id number] [place] [address] 94078- 0240 Jan, Hypertension 401.9 ; Uncontrolled type 2 diabetes mellitus 250.02 ; Right shoulder pain 719.41 and Ulcer of heel and midfoot 707.14 [facility] [address] [place] [id number] [place] [address] 94124- 2320 Dec, Diabetes with other specified manifestations, type II or unspecified type, not stated as uncontrolled 250.80 ; Ulcer of heel and midfoot 707.14 ; Hypertension 401.9 ; Hip pain, left 719.45 and Acute anxiety 300.00 [facility] [address] [place] [id number] [place] [address] 95485- 8234 Nov, [facility] [address] [place] [id number] [place] [address] 04670- 6818 Nov, [facility] [address] [place] [id number] [place] [address] 68551- 9510 September, Anxiety attack 300.[address] [facility] [address] [place] [id number] [place] [address] 80672- 6293 September, [facility] [address] [place] [id number] [place] [address] 06866- 9544 September, [facility] [address] [place] [id number] [place] [address] 75001- 6653 September, [facility] [address] [place] [id number] [place] [address] 65914- 9941 Aug, [facility] [address] [place] [id number] [place] [address] 38380- 0776 Aug, [facility] [address] [place] [address]- 4352 13 Jul, 2014 [facility] [place] [facility] [address] [id number] [place] [address]- 8231 13 Jul, 2014 [facility] [place] [facility] [address] [id number] [place] [address]- 7425 05 Jul, 2014 [facility] [place] [facility] [address] [id number] [place] [address]- 0916 13 May, 2014 [facility] [place] [facility] [address] [id number] [place] [address]- 2927 13 May, 2014 [facility] [place] [facility] [address] [id number] [place] [address]- 2054 11 Mar, 2014 [facility] [place] [facility] [address] [id number] [place] [address]- 2247 Mar, [facility] [place] [facility] [address] [id number] [place] [address]- 2002 07 Mar, 2014 [facility] [place] [facility] [address] [id number] [place] [address]- 5886 07 Mar, 2014 [facility] [place] [facility] [address] [id number] [place] [address]- 1622 Mar, [facility] [place] [facility] [address] [facility] [id number] [place] [address]- 9753 Mar, [facility] [place] [facility] [address] [id number] [place] [address]- 1496 07 Mar, 2014 [facility] [place] [facility] [address] [id number] [address]- 5864 14 Feb, 2014 [facility] [place] [facility] [address] [id number] [place] [address]- 9004 14 Feb, 2014 [facility] [place] [facility] [address] [id number] [place] [address]- 1636 30 Jan, 2014 [facility] [place] [facility] [address] [id number] [place] [address]- 1028 30 Jan, 2014 [facility] [place] [facility] [address] [id number] [place] [address] 2549 26 Sep, 2013 [facility] [place] [facility] [address] [id number] [place] [address] 2546 26 Sep, 2013 [facility] [place] [facility] [address] [id number] [place] [address] 2542 25 Sep, 2013 [facility] [place] [facility] [address] [id number] [place] [address] 2548 25 Sep, 2013 [facility] [place] [facility] [address] [id number] [place] [address] 2549 25 Sep, 2013 [facility] [place] [facility] [address] [id number] [place] [address]- 6222 25 Sep, 2013 [facility] [place] [facility] [address] [id number] [place] [address]- 3372 18 Sep, 2013 [facility] [place] [facility] [address] [id number] [place] [address]- 7065 18 Sep, 2013 [facility] [place] [facility] [address] [id number] [place] [address]- 7952 06 Sep, 2013 [facility] [place] [facility] [address] [id number] [place] [address]- 2547 06 Sep, 2013 [facility] [place] [facility] [address] [id number] [place] [address] 2543 05 Sep, 2013 [facility] [place] [facility] [address] [id number] [place] [address] 2540 05 Sep, 2013 [facility] [place] [facility] [address] [id number] [place] [address] 2543 05 Sep, 2013 [facility] [place] [facility] [address] [id number] [place] [address] 2546 05 Sep, 2013 [facility] [place] [facility] [address] [id number] [place] [address] 2548 05 Sep, 2013 [facility] [place] [facility] [address] [id number] [place] [address]- 8556 Jan, [facility] [place] [facility] [address] [id number] [place] [address]- 5615 Dec, [facility] [place] [facility] [address] [id number] [place] [address]- 1215 Dec, [facility] [place] [facility] [address] [id number] [place] [address]- 2190 Dec, [facility] [place] [facility] [address] [id number] [place] [address]- 8513 Dec, [facility] [place] [facility] [address] [id number] [place] [address]- 3879 Dec, [facility] [place] [facility] [address] [id number] [place] [address]- 9106 Dec, [facility] [place] [facility] [address] [id number] [place] [address]- 4121 Dec, [facility] [place] [facility] [address] [id number] [place] [address]- 7954 Dec, [facility] [place] [facility] [address] [id number] [place] [address]- 5457 Dec, [facility] [place] [facility] [address] [id number] [place] [address]- 3098 Dec, [facility] [place] [facility] [address] [id number] [place] [address]- 7142 Nov, [facility] [place] [facility] [address] [id number] [place] [address]- 5789 Nov, [facility] [place] [facility] [address] [id number] [place] [address]- 8141 Nov, [facility] [place] [facility] [address] [id number] [place] [address]- 5049 Nov, [facility] [place] [facility] [address] [id number] [place] [address]- 1365 Nov, [facility] [place] [facility] [address] [id number] [place] [address]- 6937 Nov, [facility] [place] [facility] [address] [id number] [place] [address]- 8043 Oct, [facility] [place] [facility] [address] [id number] [place] [address]- 3155 Oct, [facility] [place] [facility] [address] [id number] [place] [address]- 7497 Oct, [facility] [place] [facility] [address] [id number] [place] [address]- 6430 Oct, [facility] [place] [facility] [address] [id number] [place] [address]- 1072 Oct, [facility] [place] [facility] [address] [id number] [place] [address]- 2967 Oct, [facility] [place] [facility] [address] [id number] [place] [address]- 1728 Oct, [facility] [place] [facility] [address] [id number] [place] [address]- 8251 Oct, [facility] [place] [facility] [address] [id number] [place] [address]- 9052 Oct, [facility] [place] [facility] [address] [id number] [place] [address]- 8227 Oct, [facility] [place] [facility] [address] [id number] [place] [address]- 6780 Oct, [facility] [place] [facility] [address] [id number] [place] [address]- 9684 Oct, [facility] [place] [facility] [address] [id number] [place] [address]- 4682 September, [facility] [place] [facility] [address] [id number] [place] [address] September, [facility] [place] [facility] [address] [id number] [place] [address] September, [facility] [place] [facility] [address] [id number] [place] [address] Aug, [facility] [place] [facility] [address] [id number] [place] [address] Aug, [facility] [place] [facility] [address] [id number] [place] [address] Jul, [facility] [place] [facility] [address] [id number] [place] [address] Jul, [facility] [place] [facility] [address] [id number] [place] [address] Jul, [facility] [place] [facility] [address] [id number] [place] [address] Jul, [facility] [place] [facility] [address] [id number] [place] [address] Jul, [facility] [place] [facility] [address] [id number] [place] [address] Jul, [facility] [place] [facility] [address] [id number] [place] [address] Jul, [facility] [place] [facility] [address] [id number] [place] [address] Jul, [facility] [place] [facility] [address] [id number] [place] [address] Jul, [facility] [place] [facility] [address] [id number] [place] [address] Jul, [facility] [place] [facility] [address] [id number] [place] [address] Jun, [facility] [place] [facility] [address] [id number] [place] [address] Jun, [facility] [place] [facility] [address] [id number] [place] [address] Jun, [facility] [place] [facility] [address] [id number] [place] [address] Jun, [facility] [address] [id number] [place] [address] May, [facility] [address] [id number] [place] [address] May, [facility] [address] [id number] [place] [address] Apr, [facility] [address] [id number] [place] [address] Apr, [facility] [address] [id number] [place] [address] Apr, [facility] [address] [id number] [place] [address] Apr, [facility] [address] [id number] [place] [address] 1504 Apr, [facility] [address] [id number] [place] [address] 2429 Apr, [facility] [address] [id number] [place] [address] 9[address] Apr, [facility] [address] [facility] [id number] [place] [address] 8278 Apr, [facility] [address] [id number] [place] [address] 7177 Mar, [facility] [place] [facility] [address] [id number] [place] [address] 3703 Mar, [facility] [place] [facility] [address] [id number] [place] [address] 7312 Mar, [facility] [place] [facility] [address] [id number] [place] [address] 7427 Mar, [facility] [place] [facility] [address] [facility] [id number], [place] [address] Mar, [facility] [place] [facility] [address] [id number] [place] [address] 6974 08 Mar, 2013 [facility] [place] [facility] [address] [id number] [place] [address] 1265 30 Feb, 2013 [facility] [place] [facility] [address] [id number] [place] [address] 1609 30 Feb, 2013 [facility] [place] [facility] [address] [id number] [place] [address] 2976 Feb, [facility] [place] [facility] [address] [id number] [place] [address]- 2382 18 Feb, 2013 [facility] [place] [facility] [address] [id number] [place] [address]- 6259 Feb, [facility] [place] [facility] [address] [id number] [place] [address]- 6331 Feb, [facility] [place] [facility] [address] [id number] [place] [address]- 7305 04 Feb, 2013 [facility] [place] [facility] [address] [id number] [place] [address]- 6937 27 Jan, 2013 [facility] [place] [facility] [address] [id number] [place] [address]- 5741 26 Jan, 2013 [facility] [place] [facility] [address] [id number] [place] [address]- 3575 19 Jan, 2013 [facility] [place] [facility] [address] [id number] [place] [address]- 5061 05 Jan, 2013 [facility] [place] [facility] [address] [id number] [place] [address]- 0144 Dec, [facility] [place] [facility] [address] [id number] [place] [address]- 7637 Dec, [facility] [place] [facility] [address] [id number] [place] [address]- 5583 08 Dec, 2012 [facility] [place] [facility] [address] [id number] [place] [address]- 8067 Nov, [facility] [place] [facility] [address] [id number] [place] [address]- 1168 Nov, [facility] [place] [facility] [address] [id number] [place] [address]- 0870 16 Nov, 2012 [facility] [place] [facility] [address] [id number] [place] [address]- 0771 Nov, [facility] [place] [facility] [address] [id number] [place] [address]- 3868 Nov, [facility] [place] [facility] [address] [id number] [place] [address]- 7328 Nov, [facility] [place] [facility] [address] [id number] [place] [address] 4303 Oct, [facility] [place] [facility] [address] [id number] [place] [address]- 5427 Oct, [facility] [place] [facility] [address] [id number] [place] [address]- 1017 Oct, [facility] [place] [facility] [address] [id number] [place] [address]- 6552 Oct, [facility] [place] [facility] [address] [id number] [place] [address]- 0939 Oct, [facility] [place] [facility] [address] [id number] [place] [address]- 0681 Oct, [facility] [place] [facility] [address] [id number] [place] [address]- 3542 September, [facility] [place] [facility] [address] [id number] [place] [address]- 2408 September, [facility] [place] [facility] [address] [id number] [place] [address]- 0717 September, [facility] [place] [facility] [address] [id number] [place] [address]- 4453 September, [facility] [place] [facility] [address] [id number] [place] [address]- 4990 23 Aug, 2012 [facility] [address] [id number] [place] [address]- 0311 03 Aug, 2012 [facility] [address] [id number] [place] [address] 3208 28 Jul, 2012 [facility] [address] [id number] [place] [address]- 2232 21 Jul, 2012 [facility] [address] [id number] [place] [address]- 9324 18 Jul, 2012 [facility] [address] [id number] [place] [address]- 1671 15 Jul, 2012 [facility] [address] [id number] [place] [address]- 3250 13 Jul, 2012 [facility] [address] [id number] [place] [address]- 9109 08 Jul, 2012 [facility] [address] [id number] [place] [address]- 5148 20 Jun, 2012 [facility] [address] [id number] [place] [address]- 4143 13 Jun, 2012 [facility] [address] [id number] [place] [address]- 0431 17 May, 2012 [facility] [address] [id number] [place] [address]- 6834 May, [facility] [address] [id number] [place] [address]- 5836 18 Apr, 2012 [facility] [address] [id number] [place] [address]- 8914 18 Apr, 2012 [facility] [address] [id number] [place] [address]- 9509 13 Apr, 2012 [facility] [address] [id number] [place] [address]- 7197 13 Apr, 2012 [facility] [place] [facility] [address] [id number] [place] [address]- 2674 10 Apr, 2012 [facility] [place] [facility] [address] [id number] [place] [address]- 5226 Apr, [facility] [place] [facility] [address] [id number] [place] [address] Apr, [facility] [place] [facility] [address] [id number] [place] [address]- 2149 Apr, [facility] [place] [facility] [address] [id number] [place] [address]- 0149 Apr, [facility] [place] [facility] [address] [id number] [place] [address]- 0273 Apr, [facility] [place] [facility] [address] [id number] [place] [address]- 3917 Apr, [facility] [place] [facility] [address] [id number] [place] [address]- 7899 Apr, [facility] [place] [facility] [address] [id number] [place] [address]- 6946 Apr, [facility] [place] [facility] [address] [id number] [place] [address]- 6394 Apr, [facility] [place] [facility] [address] [id number], [place] [address] 2046 Apr, [facility] [place] [facility] [address] [id number], [place] [address]- 6900 Apr, [facility] [place] [facility] [address] [id number] [place] [address]- 5339 Mar, [facility] [place] [facility] [address] [id number] [place] [address]- 6334 Mar, [facility] [place] [facility] [address] [facility] [id number], [place] [address]- 7093 16 Mar, 2012 [facility] [place] [facility] [address] [id number], [place] [address]- 3374 Mar, [facility] [place] [facility] [address] [id number] [place] [address]- 4551 Mar, [facility] [place] [facility] [address] [facility] [id number], [place] [address]- 3472 Mar, [facility] [place] [facility] [address] [facility] [id number] [place] [address]- 3640 Mar, [facility] [place] [facility] [address] [facility] [id number] [place] [address]- 5520 Mar, [facility] [place] [facility] [address] [facility] [id number] [place] [address], [place] [address]- 8533 Mar, [facility] [place] [facility] [address] [facility] [id number] [place] [address]- 3233 Mar, [facility] [place] [facility] [address]65[place], [place] [address]- 9904 Feb, [facility] [place] [facility] [address] [facility] [id number] [place] [address]- 9181 Feb, [facility] [place] [facility] [id number] [address]- [address] Feb, [facility] [place] [facility] [address] [id number], [place] [address]- 3312 Feb, [facility] [place] [facility] [address] [facility] [id number], [place] [address]- 4964 Feb, [facility] [place] [facility] [address] [facility] [id number], [place] [address]- 3840 Feb, [facility] [place] [facility] [address] [facility] [id number], [place] [address]- 4116 Jan, [facility] [place] [facility] [address] [facility] [id number], [place] [address]- 4103 Dec, [facility] [place] [facility] [address] [id number], [place] [address]- 4005 Dec, [facility] [place] [facility] [address] [id number] [place] [address] 2546 Dec, [facility] [place] [facility] [address] [id number] [place] [address]- 0986 Dec, [facility] [place] [facility] [address] [id number] [place] [address]- 2546 Nov, [facility] [place] [facility] [address] [id number] [place] [address]- 7536 Nov, [facility] [place] [facility] [address] [id number] [place] [address]- 2542 Nov, [facility] [place] [facility] [address] [id number] [place] [address]- 3276 Nov, [facility] [place] [facility] [address] [id number] [place] [address]- 9769 Oct, [facility] [place] [facility] [address] [id number] [place] [address]- 5168 Oct, [facility] [place] [facility] [address] [id number] [place] [address]- 8036 Oct, [facility] [place] [facility] [address] [id number] [place] [address]- 0202 Oct, [facility] [place] [facility] [address] [id number] [place] [address]- 3475 Oct, [facility] [place] [facility] [address] [id number] [place] [address]- 5668 September, [facility] [place] [facility] [address] [id number] [place] [address]- 7625 September, [facility] [place] [facility] [address] [id number] [place] [address]- 9096 September, [facility] [place] [facility] [address] [id number] [place] [address]- 9776 September, [facility] [place] [facility] [address] [id number] [place] [address]- 3764 September, [facility] [address] [id number] [place] [address]- 8784 September, [facility] [place] [facility] [address] [id number] [place] [address]- 4594 September, [facility] [address] [id number] [place] [address]- 3730 September, [facility] [address] [id number] [place] [address]- 5468 Aug, [facility] [address] [id number] [place] [address]- 9825 Aug, [facility] [address] [id number] [place] [address]- 3927 Aug, [facility] [address] [id number] [place] [address]- 5494 Aug, [facility] [address] [id number] [place] [address]- 3108 Aug, [facility] [address] [id number] [place] [address]- 7812 Aug, [facility] [place] [facility] [address] [id number] [place] [address]- 1150 Aug, [facility] [place] [facility] [address] [id number] [place] [address]- 3543 Aug, [facility] [place] [facility] [address] [id number], [place] [address]- 4665 Aug, [facility] [place] [facility] [address] [id number] [place] [address]- 4745 Aug, [facility] [place] [facility] [address] [id number] [place] [address]- 0881 Aug, [facility] [place] [facility] [address] [id number] [place] [address]- 3208 Aug, [facility] [place] [facility] [address] [id number] [place] [address]- 9440 29 Jul, 2011 [facility] [place] [facility] [address] [id number] [place] [address]- 5676 28 Jul, 2011 [facility] [place] [facility] [address] [id number] [place] [address] 2546 27 Jul, 2011 [facility] [place] [facility] [address] [id number] [place] [address]- 1866 23 Jul, 2011 [facility] [place] [facility] [address] [id number] [place] [address] 2546 21 Jul, 2011 [facility] [place] [facility] [address] [id number] [place] [address]- 9436 21 Jul, 2011 [facility] [place] [facility] [address] [id number] [place] [address]- 5576 14 Jul, 2011 [facility] [place] [facility] [address] [id number] [place] [address]- 6206 13 Jul, 2011 [facility] [place] [facility] [address] [id number] [place] [address]- 6317 07 Jul, 2011 [facility] [place] [facility] [address] [id number] [place] [address]- 6276 24 Jun, 2011 [facility] [place] [facility] [address] [facility] [id number] [place] [address]- 5210 23 Jun, 2011 [facility] [place] [facility] [address] [id number] [place] [address] 2546 23 Jun, 2011 [facility] [place] [facility] [address] [id number] [place] [address] 2546 14 Jun, 2011 [facility] [place] [facility] [address] [id number] [place] [address]- 9646 02 Jun, 2011 [facility] [place] [facility] [address] [id number] [place] [address] 2546 02 Jun, 2011 [facility] [place] [facility] [address] [id number] [place] [address] 2546 Jun, [facility] [address] [id number] [place] [address]- 0716 May, [facility] [place] [facility] [address] [id number] [place] [address]- 9652 May, [facility] [place] [facility] [address] [id number] [place] [address]- 3173 May, [facility] [place] [facility] [address] [id number] [place] [address]- 0039 May, [facility] [place] [facility] [address] [id number] [place] [address]- 8793 May, [facility] [place] [facility] [address] [id number] [place] [address]- 4551 May, [facility] [place] [facility] [address] [id number] [place] [address]- 1413 May, [facility] [place] [facility] [address] [id number] [place] [address]- 3407 Apr, [facility] [place] [facility] [address] [id number] [place] [address]- 9195 Apr, [facility] [place] [facility] [address] [id number] [place] [address]- 0102 Apr, [facility] [place] [facility] [address] [id number] [place] [address]- 9730 Apr, [facility] [place] [facility] [address] [id number], [place] [address]- 1822 Apr, [facility] [place] [facility] [address] [id number] [place] [address]- 0373 Apr, [facility] [place] [facility] [address] [id number] [place] [address]- 6943 13 Apr, 2011 [facility] [place] [facility] [address] [id number] [place] [address]- 4822 08 Apr, 2011 [facility] [place] [facility] [address] [id number] [place] [address]- 1476 05 Apr, 2011 [facility] [place] [facility] [address] [id number] [place] [address]- 2004 Mar, [facility] [place] [facility] [address] [id number] [place] [address]- 9616 Mar, [facility] [place] [facility] [address] [id number] [place] [address]- 6596 Mar, [facility] [place] [facility] [address] [id number] [place] [address]- 1326 Mar, [facility] [place] [facility] [address] [id number] [place] [address]- 9006 Mar, [facility] [place] [facility] [address] [id number] [place] [address]- 5159 Feb, [facility] [place] [facility] [address] [id number] [place] [address]- 3222 Feb, [facility] [place] [facility] [address] [id number] [place] [address]- 2530 Feb, [facility] [place] [facility] [address] [id number] [place] [address]- 9278 Dec, [facility] [place] [facility] [address] [id number] [place] [address]- 9963 Nov, [facility] [place] [facility] [address] [id number] [place] [address]- 3116 Apr, [facility] [place] [facility] [address] [id number] [place] [address]- 7313 20 Apr, 2010 [facility] [place] [facility] [address] [id number] [place] [address]- 0548 16 Apr, 2010 [facility] [place] [facility] [address] [id number] [place] [address]- 0396 13 Apr, 2010 [facility] [place] [facility] [address] [id number] [place] [address]- 0813 [address], [address] [facility] [address] [facility] [id number], [place] [address]107 Apr, [facility] [address] [facility] [id number], [place] [address] 5360 Apr, [facility] [address] [facility] [id number], [place] [address] 5874 Apr, [facility] [address] [facility] [id number] [address] 1899 Mar, [facility] [address] [facility] [id number] [address] 98[address] Mar, [facility] [address] [facility] [id number], [place] [address] Mar, [facility] [address] [address]253 Mar, [facility] [address]00565[place] [address] Mar, [facility] [address] [address] 9[address] Mar, [facility] [address] [address] 8[address] Mar, [facility] [address] [address] 60[address] Mar, [facility] [address], [place] [address]- 0[address] Mar, [facility] [address] [id number], [place] [address]- 7400 Mar, IMMUNIZATIONS No Known Immunizations SOCIAL HISTORY Never Assessed REASON FOR VISIT Correction Visit PLAN OF CARE Activity Details Follow Up prn Reason: VITAL SIGNS MEDICATIONS Medication Instructions Dosage Frequency Start Date End Date Duration Status Magnesium Oxide 250 MG Orally Once a day 1 tablet as needed 24h Active Simbrinza 1-0.2 % Ophthalmic Three times a day 1 drop into affected eye 8h Active Rosuvastatin Calcium 20 MG Orally Once a day 1 tablet 24h Active Alavert 10 MG Orally Once a day 1 tablet on the tongue and allow to dissolve 24h Active Fish Oil 1000 MG Orally 3 times a day 1 capsule 8h Active Pyridium 200 mg Orally every 8 hours, PRN 1 tablet after meals Nov, Active Aspirin 81 MG Orally Once a day 1 tablet 24h Active Levemir FlexTouch 100 UNIT/ML Subcutaneous BID 25 units 12h Active Gabapentin 100 mg Orally Three times a day 1 capsule 8h 30 days Active Torsemide 20 mg Orally 2 times a day 1 tablet 12h Active Acetaminophen 325 MG Orally every 6 hrs 2 tablets as needed 6h Nov, 14 days Active Morphine Sulfate (Concentrate) 20 MG/ML Orally every 1 hr, prn pain 0.25-0.5 ml Nov, Active Arginine 2000 MG Orally TID 2,000 mg 8h Active Nystatin 711188 UNIT/GM Externally Twice a day till healed 1 application to affected area Nov, Active HydrALAZINE HCl 25 MG Orally Three times a day 1 tablet with food 8h Active Multivitamins - Orally Once a day 1 capsule 24h Active NovoLog Flexpen 100 UNIT/ML Subcutaneous 3 times a day before meals 15 units Active Vitamin D3 5000 UNIT Orally Once a day at hs 1 capsule Active Clonidine HCl 0.3 MG Orally Twice a day 1 tablet 12h Active Lactulose 10 GM/15ML Orally twice a day 15 ml 12h Nov, Mar, 30 days Active RESULTS No Results PROCEDURES Procedure Date Ordered Result Body Site Significant Complication (25 mins) Dec 26, 2017 INSTRUCTIONS MEDICATIONS ADMINISTERED No Known Medications [...]
--- OUTSIDE RECORDS SUMMARY | 2018-04-22 22:58 | XMS REPORT ---
Author Author CARLOS LARA [facility] Address [address] [place] [address] Care Team Providers Care Personal Lines Underwriter Name Role Phone CARLOS LARA Unavailable PROBLEMS Type Condition ICD9-CM Code MFB71-OB Code Onset Dates Condition Status SNOMED Code Problem Severe sleep apnea G47.30 Active 09874937 Problem Iron deficiency anemia, unspecified iron deficiency anemia type D50.9 Active 78132545 Problem Stenosis of carotid artery, unspecified laterality I65.29 Active 99754194 Problem Decreased diffusion capacity R94.2 Active 68656394 Problem Coronary artery disease involving tuscarora coronary artery of tuscarora heart, angina presence unspecified I25.10 Active 2864340894959 Problem Generalized osteoarthritis M15.9 Active 957354452 Problem Aortic valve sclerosis I35.8 Active 77328537 Problem Essential hypertension I10 Active 95958163 Problem Renal osteodystrophy N25.0 Active 95707331 Problem Anxiety about health F41.8 Active 139754175 Problem 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 Active 8239707 Problem Type 2 diabetes mellitus with unspecified complications E11.8 Active 02193327 Problem Type 2 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 Active 48354051 Problem Chronic kidney disease, unspecified CKD stage N18.9 Active 412469803 Problem Pain R52 Active 01499202 Problem long-term 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.4 Active 857031806 Problem Acute anxiety F41.9 Active 57133587 Problem Inability to bear weight R26.89 Active 550495748 Problem Type 2 diabetes mellitus with diabetic polyneuropathy E11.42 Active 658870030 Problem Type 2 diabetes mellitus with foot ulcer E11.621 Active 990374961 Problem Type 2 diabetes mellitus with hyperglycemia E11.65 Active 32043578 Problem Slow transit constipation K59.01 Active 54234285 Problem Bladder spasms N32.89 Active 799537937 Problem Chronic kidney disease (CKD), stage 4 (severe) N18.4 Active 762965077 Problem Other chronic pain G89.29 Active 55986711 Problem Diarrhea, unspecified type R19.7 Active 54421635 Problem Mixed hyperlipidemia E78.2 Active 344175159 Problem Trochanteric bursitis of left hip M70.62 Active 976677377838019 Problem Anemia in other chronic diseases classified elsewhere D63.8 Active 113624878 Problem Chronic kidney disease, stage 3 (moderate) N18.3 Active 604409495 Problem Port catheter in place Z95.828 Active 496729131 Problem Transient cerebral ischemia, unspecified type G45.9 Active 170647959 Problem Hypoxemia R09.02 Active 325985257 Problem BMI 50.0-59.9, adult Z68.43 Active 501169397 ALLERGIES No Information ENCOUNTERS Encounter Location Date Diagnosis [place] [address] [address]- [address] 17 Jan, 2018 [place] [address] 18365- 5443 14 Jan, 2018 Acute anxiety F41.9 [place] [address] 67273- 8230 04 Jan, 2018 Inability to bear weight R26.89 [facility] [address] [place], [place] [id number] Dec, Low back pain M54.5 ; Other chronic pain G89.29 and Chronic kidney disease (CKD), stage 4 (severe) N18.4 [place] [address] [place] [id number] [place] [address] 33898- 2500 Dec, Type 2 diabetes mellitus with hyperglycemia E11.65 [place] [address] 46550- 1907 Dec, [facility] [address] [place], [place] [id number] Dec, Type 2 diabetes mellitus with hyperglycemia E11.65 ; Essential hypertension I10 ; Generalized osteoarthritis M15.9 ; Mixed hyperlipidemia E78.2 ; Hypoxia R09.02 ; Port catheter in place Z95.828 ; Anemia due to acute blood loss D62 ; Chronic kidney disease, unspecified CKD stage N18.9 and Severe sleep apnea G47.30 [place] [id number] [place] [address] 66901- 4553 14 Dec, 2017 Type 2 diabetes mellitus with hyperglycemia E11.65 [facility] [address] [place] [id number] [place] [address] 73632- 7417 Dec, [facility] [address] [place] [id number] [place] [address] 37085- 0268 Dec, Type 2 diabetes mellitus with hyperglycemia E11.65 [facility] [address] [place] [id number] [place] [address] 23903- 6104 Dec, Left leg pain M79.605 [place] [address] [place] [id number] [place] [address] 75912- 6863 Nov, Slow transit constipation K59.01 [place] [address] [place] [id number] [place] [address] 21376- 1771 Nov, [facility] [address] [place] [id number] Nov, Anemia due to acute blood loss D62 [place] [address] [place] [id number] [place] [address] 88386- 3009 Nov, [place] [address] [place] [id number] [place] [address] 19429- 8317 Nov, Bladder spasms N32.89 [place] [address] [place] [id number] [place] [address] 52363- 3346 Nov, Pain R52 [facility] [address] [place] [id number] Nov, Anemia due to acute blood loss D62 [place] [address] [place] [id number] [place] [address] 52144- 5096 Nov, Pain in right hip M25.551 and Pain in left hip M25.552 [place] [address] [place] [id number] [place] [address] 52948- 4093 Nov, [place] [address] [place] [id number] [place] [address] 88859- 5836 Nov, [facility] [address] [place] [address] 85152- 9082 Nov, [facility] [address] [place] [id number] [place] [address] 62694- 9195 Nov, [facility] [address] [place] [id number] [place] [address] 04046- 5871 Oct, [facility] [address] [place] [id number] [place] [address] 78170- 6741 Oct, [facility] [address] [place] [id number] Oct, Encounter for examination for admission to detention Z02.2 ; Chronic kidney disease, unspecified CKD stage N18.9 ; Type 2 diabetes mellitus with unspecified complications E11.8 ; long-term 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.4 ; Essential hypertension I10 ; Hypoxia R09.02 ; Severe sleep apnea G47.30 ; Stenosis of carotid artery, unspecified laterality I65.29 ; Generalized osteoarthritis M15.9 ; Coronary artery disease involving tuscarora coronary artery of tuscarora heart, angina presence unspecified I25.10 ; Port catheter in place Z95.828 and Hemorrhoids, unspecified hemorrhoid type K64.9 [facility] [address] [place] [id number] [place] [address] 58071- 9854 Oct, [facility] [address] [place] [address] 61997- 6921 Oct, [facility] [address] [place] [id number] [place] [address] 43865- 0188 Oct, [facility] [address] [place] [id number] [place] [address] 72912- 1610 Oct, [facility] [address] [place] [id number] [place] [address] 21525 -3788 September, BMI 50.0-59.9, adult Z68.43 [facility] [address] [place] [id number] [place] [address] 07082- 2076 September, [place] [address] [place] [id number] [place] [address] 49741- 5227 September, [place] [address] 47086- 8487 Aug, Type 2 diabetes mellitus with foot ulcer E11.621 ; Transient cerebral ischemia, unspecified type G45.9 ; Essential hypertension I10 ; Mixed hyperlipidemia E78.2 and BMI 50.0-59.9, adult Z68.43 [place] [address] [place] [id number] [place] [address] 18218- 3687 Aug, [place] [address] 79572- 1410 Jul, Anxiety about health F41.8 and Mixed hyperlipidemia E78.[address] 47975- 4578 Jul, [place] [address] 97126- 5053 Jun, [place] [address] [place] [id number] [place] [address] 26454- 0089 Jun, Type 2 diabetes mellitus with hyperglycemia E11.65 ; Type 2 diabetes mellitus with foot ulcer E11.621 ; Port catheter in place Z95.828 ; 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 ; Contact with and (suspected) exposure to potentially hazardous body fluids Z77.21 and BMI 50.0-59.9, adult Z68.43 [place] [address] [place] [id number] [place] [address] 77965- 7132 May, [address] 10427- 9137 May, Open wound of right great toe, subsequent encounter S91.101D [place] [address] [place] [id number] [place] [address] 03915- 2582 May, [place] [address] 53493- 7248 Apr, [place] [address] [address] 1730 Apr, [place] [address] [place] [id number] [place] [address] 11766- 2261 Apr, [place] [address] [place] [id number] [place] [address] 21035- 1837 Apr, Type 2 diabetes mellitus with diabetic polyneuropathy E11.42 [place] [address] [place] [id number] [place] [address] 95343- 6445 13 Apr, 2017 Open wound of right great toe, subsequent encounter S91.101D [place] [address] [place] [id number] [place] [address] 15440- 8769 08 Apr, 2017 Open wound of right great toe, subsequent encounter S91.101D ; Breast pain, left N64.4 ; Breast cancer screening Z12.31 ; Type 2 diabetes mellitus with foot ulcer E11.621 ; Essential hypertension I10 and BMI 50.0-59.9, adult Z68.43 [place] [address] [place] [id number] [place] [address] 56528- 0616 Mar, Encounter for immunization Z23 [place] [address] [place] [id number] [place] [address] 66978- 6131 Mar, [place] [address] [place] [id number] [place] [address] 07067- 5694 Mar, [place] [address] [place] [id number] [place] [address] 64733- 5139 Mar, Type 2 diabetes mellitus with diabetic polyneuropathy E11.42 ; Type 2 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 ; Type 2 diabetes mellitus with foot ulcer E11.621 ; Essential hypertension I10 ; Hypoxemia R09.02 and Generalized osteoarthritis M15.9 [place] [address] [address] 3423 02 Mar, 2017 Chronic kidney disease, stage 3 (moderate) N18.3 ; Acute cystitis without hematuria N30.00 ; Essential hypertension I10 ; Muscle spasms of neck M62.838 ; Type 2 diabetes mellitus with diabetic polyneuropathy E11.42 and BMI 50.0-59.9, adult Z68.43 [facility] [address] [place] [id number] [place] [address] 58571- 9254 30 Feb, 2017 [facility] [address] [place] [id number] [place] [address] 08808 -0159 Feb, [facility] [address] [place] [id number] [place] [address] 60351- 0149 Feb, [facility] [address] [place] [id number] [place] [address] 51118- 7514 Feb, [facility] [address] [place] [id number] [place] [address] 84154- 2272 Feb, [facility] [address] [place] [id number] [place] [address] 48018- 6542 Feb, [facility] [address] [place] [id number] [place] [address] 14018- 6207 Feb, Mixed hyperlipidemia E78.2 [facility] [address] [place] [id number] [place] [address] 30283- 3004 Feb, [facility] [address] [place] [id number] [place] [address] 05770- 5191 Jan, [facility] [address] [place] [id number] [place] [address] 76437- 6041 14 Jan, 2017 Generalized osteoarthritis M15.9 [facility] [address] [place] [id number] [place] [address] 89394- 6831 Oct, [facility] [address] [place] [id number] [place] [address] 41623- 6110 27 Jul, 2016 [facility] [address] [place] [id number] [place] [address] 35472- 2543 13 Jul, 2016 [facility] [address] [place] [id number] [place] [address] 17849- 9999 Jul, Type 2 diabetes mellitus with hyperglycemia E11.65 ; Chronic kidney disease, stage 3 (moderate) N18.3 ; Type 2 diabetes mellitus with foot ulcer E11.621 ; Type 2 diabetes mellitus with diabetic polyneuropathy E11.42 ; Generalized osteoarthritis M15.9 ; Trochanteric bursitis of left hip M70.62 and Tinea pedis of both feet B35.3 [place] [address] [place] [id number] [place] [address] 66250- 9510 Jun, [place] [address] 81867- 2469 Apr, [place] [address] 47019- 5409 Apr, [place] [address] 73175- 2129 Mar, [place] [address] 31077- 9770 Feb, Encounter for immunization Z23 [place] [id number] [place] [address] 04918- 7544 Feb, [address] 15897- 5425 Feb, Type 2 diabetes mellitus with hyperglycemia E11.65 ; Encounter for immunization Z23 ; Diarrhea, unspecified type R19.7 ; Essential hypertension I10 ; Mixed hyperlipidemia E78.2 ; Hypoxia R09.02 ; 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 and Type 2 diabetes mellitus with foot ulcer E11.621 [place] [address] [place] [id number] [place] [address] 74726- 5725 Jan, [address] 00733- 1301 Jan, Type 2 diabetes mellitus with hyperglycemia E11.65 and Pneumonia due to infectious organism, unspecified laterality, unspecified part of lung J18.[address] 07711- 2559 Jan, [facility] [address] [place] [address] 36457- 7958 Jan, [facility] [address] [place] [id number] [place] [address] 65647- 2690 Oct, Type 2 diabetes mellitus with hyperglycemia E11.65 ; Generalized osteoarthritis M15.9 and Chronic prescription opiate use Z79.891 [facility] [address] [place] [id number] [place] [address] 37472- 4848 September, [facility] [address] [place] [id number] [place] [address] 77759- 1303 Aug, [facility] [address] [place] [id number] [place] [address] 59272- 2970 Aug, [facility] [address] [place] [id number] [place] [address] 09759- 8037 Aug, [facility] [address] [place] [id number] [place] [address] 12077- 1086 Aug, [facility] [address] [place] [id number] [place] [address] 48348- 4065 Jun, [facility] [address] [place] [id number] [place] [address] 23708- 1051 Jun, Type 2 diabetes mellitus with hyperglycemia E11.65 ; Mixed hyperlipidemia E78.2 ; Vaginal itching L29.8 ; Neck muscle spasm M62.838 and Skin abrasion T14.8 [facility] [address] [place] [address]- 4149 Apr, [facility] [address] [place] [id number] [place] [address] 32927- 2689 Apr, [facility] [address] [place] [id number] [place] [address] 90940- 0965 Mar, [facility] [address] [place] [id number] [place] [address] 72237- 3586 Feb, [facility] [address] [place] [address] 06686- 8893 Feb, Type 2 diabetes mellitus with hyperglycemia E11.65 ; Type 2 diabetes mellitus with foot ulcer E11.621 ; Type 2 diabetes mellitus with diabetic polyneuropathy E11.42 and Encounter for immunization Z23 [facility] [address] [place] [id number] [place] [address] 03300- 3629 Jan, Hypertension 401.9 ; Uncontrolled type 2 diabetes mellitus 250.02 ; Right shoulder pain 719.41 and Ulcer of heel and midfoot 707.14 [facility] [address] [place] [id number] [place] [address] 47200- 4920 Dec, Diabetes with other specified manifestations, type II or unspecified type, not stated as uncontrolled 250.80 ; Ulcer of heel and midfoot 707.14 ; Hypertension 401.9 ; Hip pain, left 719.45 and Acute anxiety 300.00 [facility] [address] [place] [id number] [place] [address] 91816- 4612 Nov, [facility] [address] [place] [id number] [place] [address] 76443- 5337 Nov, [facility] [address] [place] [id number] [place] [address] 88499- 7069 September, Anxiety attack 300.01 and Cellulitis 682.9 [facility] [address] [place] [id number] [place] [address] 21841- 7711 September, [facility] [address] [place] [id number] [place] [address] 51971- 5286 September, [facility] [address] [place] [id number] [place] [address] 96102- 0250 September, [facility] [address] [place] [id number] [place] [address] 70183- 8401 Aug, [facility] [address] [place] [id number] [place] [address] 45859- 2266 Aug, [facility] [address] [place] [address]- 1669 13 Jul, 2014 [facility] [place] [facility] [address] [id number] [place] [address]- 5737 13 Jul, 2014 [facility] [place] [facility] [address] [id number] [place] [address]- 5517 05 Jul, 2014 [facility] [place] [facility] [address] [id number] [place] [address]- 8972 13 May, 2014 [facility] [place] [facility] [address] [id number] [place] [address]- 6215 13 May, 2014 [facility] [place] [facility] [address] [id number] [place] [address]- 0729 11 Mar, 2014 [facility] [place] [facility] [address] [id number] [place] [address]- 1489 Mar, [facility] [place] [facility] [address] [id number] [place] [address]- 2823 07 Mar, 2014 [facility] [place] [facility] [address] [id number] [place] [address]- 4108 07 Mar, 2014 [facility] [place] [facility] [address] [id number] [place] [address]- 3807 Mar, [facility] [place] [facility] [address] [facility] [id number] [place] [address]- 3353 Mar, [facility] [place] [facility] [address] [id number] [place] [address]- 8974 07 Mar, 2014 [facility] [place] [facility] [address] [id number], [place] [address]- 8409 14 Feb, 2014 [facility] [place] [facility] [address] [id number] [place] [address]- 8191 14 Feb, 2014 [facility] [place] [facility] [address] [id number] [place] [address]- 2099 30 Jan, 2014 [facility] [place] [facility] [address] [id number] [place] [address]- 2490 30 Jan, 2014 [facility] [place] [facility] [address] [id number] [place] [address] 2545 26 Sep, 2013 [facility] [place] [facility] [address] [id number] [place] [address] 2546 26 Sep, 2013 [facility] [place] [facility] [address] [id number] [place] [address] 2541 25 Sep, 2013 [facility] [place] [facility] [address] [id number] [place] [address] 2542 25 Sep, 2013 [facility] [place] [facility] [address] [id number] [place] [address] 2541 25 Sep, 2013 [facility] [place] [facility] [address] [id number] [place] [address]- 1808 25 Sep, 2013 [facility] [place] [facility] [address] [id number] [place] [address]- 2738 18 Sep, 2013 [facility] [place] [facility] [address] [id number] [place] [address]- 7021 18 Sep, 2013 [facility] [place] [facility] [address] [id number] [place] [address]- 7269 06 Sep, 2013 [facility] [place] [facility] [address] [id number] [place] [address]- 2544 06 Sep, 2013 [facility] [place] [facility] [address] [id number] [place] [address] 2542 05 Sep, 2013 [facility] [place] [facility] [address] [id number] [place] [address] 2545 05 Sep, 2013 [facility] [place] [facility] [address] [id number] [place] [address] 2544 05 Sep, 2013 [facility] [place] [facility] [address] [id number] [place] [address] 2546 05 Sep, 2013 [facility] [place] [facility] [address] [id number] [place] [address] 2541 05 Sep, 2013 [facility] [place] [facility] [address] [id number] [place] [address]- 5916 Jan, [facility] [place] [facility] [address] [id number] [place] [address]- 9294 Dec, [facility] [place] [facility] [address] [id number] [place] [address]- 7243 Dec, [facility] [place] [facility] [address] [id number] [place] [address]- 3062 Dec, [facility] [place] [facility] [address] [id number] [place] [address]- 7178 Dec, [facility] [place] [facility] [address] [id number] [place] [address]- 9539 Dec, [facility] [place] [facility] [address] [id number] [place] [address]- 0003 Dec, [facility] [place] [facility] [address] [id number] [place] [address]- 9225 Dec, [facility] [place] [facility] [address] [id number] [place] [address]- 6004 Dec, [facility] [place] [facility] [address] [id number] [place] [address]- 0317 Dec, [facility] [place] [facility] [address] [id number] [place] [address]- 4306 Dec, [facility] [place] [facility] [address] [id number] [place] [address]- 7884 Nov, [facility] [place] [facility] [address] [id number] [place] [address]- 8380 Nov, [facility] [place] [facility] [address] [id number] [place] [address]- 1782 Nov, [facility] [place] [facility] [address] [id number] [place] [address]- 7816 Nov, [facility] [place] [facility] [address] [id number] [place] [address]- 8756 Nov, [facility] [place] [facility] [address] [id number] [place] [address]- 2682 Nov, [facility] [place] [facility] [address] [id number] [place] [address]- 1544 Oct, [facility] [place] [facility] [address] [id number] [place] [address]- 5212 Oct, [facility] [place] [facility] [address] [id number] [place] [address]- 3350 Oct, [facility] [place] [facility] [address] [id number] [place] [address] Oct, [facility] [place] [facility] [address] [id number] [place] [address] Oct, [facility] [place] [facility] [address] [id number] [place] [address] Oct, [facility] [place] [facility] [address] [id number] [place] [address] Oct, [facility] [place] [facility] [address] [id number] [place] [address] Oct, [facility] [place] [facility] [address] [id number] [place] [address] Oct, [facility] [place] [facility] [address] [id number] [place] [address] Oct, [facility] [place] [facility] [address] [id number] [place] [address] Oct, [facility] [place] [facility] [address] [id number] [place] [address] Oct, [facility] [place] [facility] [address] [id number] [place] [address] September, [facility] [place] [facility] [address] [id number] [place] [address] September, [facility] [place] [facility] [address] [id number] [place] [address] September, [facility] [place] [facility] [address] [id number] [place] [address] Aug, [facility] [place] [facility] [address] [id number] [place] [address] Aug, [facility] [place] [facility] [address] [id number] [place] [address] Jul, [facility] [place] [facility] [address] [id number] [place] [address] Jul, [facility] [place] [facility] [address] [id number] [place] [address] Jul, [facility] [place] [facility] [address] [id number] [place] [address] Jul, [facility] [place] [facility] [address] [id number] [place] [address] Jul, [facility] [place] [facility] [address] [id number] [place] [address] Jul, [facility] [place] [facility] [address] [id number] [place] [address] Jul, [facility] [place] [facility] [address] [id number] [place] [address] Jul, [facility] [place] [facility] [address] [id number] [place] [address] Jul, [facility] [facility] [address] [id number] [place] [address] 2009 Jul, [facility] [place] [facility] [address] [id number] [place] [address] Jun, [facility] [place] [facility] [address] [id number] [place] [address] 74[address] Jun, [facility] [place] [facility] [address] [id number] [place] [address] Jun, [facility] [place] [facility] [address] [id number] [place] [address] Jun, [facility] [address] [id number] [place] [address] 24[address] May, [facility] [address] [id number] [place] [address]- 9074 May, [facility] [address] [id number] [place] [address] 5598 Apr, [facility] [place] [address] [id number] [place] [address]- 1208 Apr, [facility] [address] [id number] [place] [address]- 4506 Apr, [facility] [address] [id number] [place] [address]- 5030 Apr, [facility] [address] [id number] [place] [address]- 5428 Apr, [facility] [address] [id number] [place] [address]- 7679 Apr, [facility] [address] [id number] [place] [address]- 5347 Apr, [facility] [address] [facility] [id number] [place] [address]- 1488 Apr, [facility] [address] [id number] [place] [address]- 3079 Mar, [facility] [address] [id number] [place] [address]- 4669 Mar, [facility] [place] [address] [id number] [place] [address]- 9561 Mar, [facility] [place] [address] [id number] [place] [address]- 5200 Mar, [facility] [address] [facility] [id number], [place] [address] Mar, [facility] [address] [id number] [place] [address]- 3[address] 08 Mar, 2013 [facility] [address] [id number] [place] [address]- 7758 30 Feb, 2013 [facility] [address] [id number] [place] [address]- 1812 30 Feb, 2013 [facility] [address] [id number] [place] [address]- 5253 Feb, [facility] [address] [id number] [place] [address]- 7196 18 Feb, 2013 [facility] [address] [id number] [place] [address]- 6172 Feb, [facility] [address] [id number] [place] [address]- 8348 Feb, [facility] [address] [id number] [place] [address]- 1211 04 Feb, 2013 [facility] [address] [id number] [place] [address]- 2045 27 Jan, 2013 [facility] [address] [id number] [place] [address]- 8661 26 Jan, 2013 [facility] [address] [id number] [place] [address]- 4446 19 Jan, 2013 [facility] [address] [id number] [place] [address]- 8026 05 Jan, 2013 [facility] [address] [id number] [place] [address]- 7296 Dec, [facility] [address] [id number] [place] [address]- 9559 Dec, [facility] [address] [id number] [place] [address]- 3108 08 Dec, 2012 [facility] [address] [id number] [place] [address]- 6681 Nov, [facility] [address] [id number] [place] [address]- 6315 Nov, [facility] [address] [id number] [place] [address]- 2778 16 Nov, 2012 [facility] [address] [id number] [place] [address]- 4373 Nov, [facility] [address] [id number] [place] [address]- 3948 Nov, [facility] [address] [id number] [place] [address]- 3049 Nov, [facility] [address] [id number] [place] [address]- 3843 Oct, [facility] [address] [id number] [place] [address]- 9881 Oct, [facility] [address] [id number] [place] [address]- 3341 Oct, [facility] [address] [id number] [place] [address]- 7806 Oct, [facility] [address] [id number] [place] [address]- 3759 Oct, [facility] [address] [id number] [place] [address]- 4951 Oct, [facility] [address] [id number] [place] [address]- 7445 September, [facility] [address] [id number] [place] [address]- 4702 September, [facility] [address] [id number] [place] [address]- 6246 September, [facility] [address] [id number] [place] [address]- 1366 September, [facility] [address] [id number] [place] [address]- 1514 23 Aug, 2012 [facility] [address] [id number] [place] [address]- 6887 03 Aug, 2012 [facility] [address] [id number] [place] [address]- 0569 28 Jul, 2012 [facility] [address] [id number] [place] [address]- 1194 21 Jul, 2012 [facility] [address] [id number] [place] [address]- 0625 18 Jul, 2012 [facility] [address] [id number] [place] [address]- 6046 15 Jul, 2012 [facility] [address] [id number] [place] [address]- 4736 13 Jul, 2012 [facility] [address] [id number] [place] [address]- 9236 08 Jul, 2012 [facility] [address] [id number] [place] [address]- 4722 20 Jun, 2012 [facility] [address] [id number] [place] [address]- 3224 13 Jun, 2012 [facility] [address] [id number] [place] [address]- 0626 17 May, 2012 [facility] [address] [id number] [place] [address]- 4774 May, [facility] [address] [id number] [place] [address]- 1914 18 Apr, 2012 [facility] [address] [id number] [place] [address]- 0073 18 Apr, 2012 [facility] [address] [id number] [place] [address]- 6731 13 Apr, 2012 [facility] [address] [id number] [place] [address]- 5286 13 Apr, 2012 [facility] [address] [id number] [place] [address]- 2090 10 Apr, 2012 [facility] [address] [id number] [place] [address]- 4726 Apr, [facility] [address] [id number] [place] Apr, [facility] [address] [id number] [place] [address]- 7342 Apr, [facility] [address] [id number] [place] [address]- 7236 Apr, [facility] [address] [id number] [place] [address]- 5623 Apr, [facility] [address] [id number] [place] [address]- 4940 Apr, [facility] [address] [id number] [place] [address]- 5177 Apr, [facility] [address] [id number] [place] [address]- 5605 Apr, [facility] [address] [id number] [place] [address]- 8831 Apr, [facility] [address] [id number], [place] [address]- 1852 Apr, [facility] [address] [id number], [place] [address]- 4083 Apr, [facility] [address] [id number] [place] [address]- 7845 Mar, [facility] [address] [id number] [place] [address]- 3373 Mar, [facility] [address] [facility] [id number], [place] [address]- 4058 16 Mar, 2012 [facility] [address] [id number], [place] [address]- 9409 Mar, [facility] [address] [id number] [place] [address]- 8312 Mar, [facility] [address] [facility] [id number], [place] [address]- 5753 Mar, [facility] [address] [facility] [id number] [place] [address]- 0247 Mar, [facility] [address] [facility] [id number] [place] [address]- 3319 Mar, [facility] [address] [facility] [id number] [place] [address], [place] [address]- 9400 Mar, [facility] [address] [facility] [id number] [place] [address]- 6756 Mar, [facility] [id number], [place] [address]- 3638 Feb, [facility] [address] [facility] [id number] [place] [address]- 4476 Feb, [facility] [address] [id number] [place] [address]- 3327 Feb, [facility] [address] [id number], [place] [address]- 0205 Feb, [facility] [address] [facility] [id number], [place] [address]- 4980 Feb, [facility] [address] [facility] [id number], [place] [address]- 1684 Feb, [facility] [address] [facility] [id number], [place] [address]- 2528 Jan, [facility] [address] [facility] [id number], [place] [address]- 0098 Dec, [facility] [address] [id number], [place] [address]- 0580 Dec, [facility] [address] [id number] [place] [address] 2546 Dec, [facility] [address] [id number] [place] [address]- 1496 Dec, [facility] [address] [id number] [place] [address]- 2546 Nov, [facility] [address] [id number] [place] [address]- 3916 Nov, [facility] [address] [id number] [place] [address]- 2541 Nov, [facility] [address] [id number] [place] [address]- 5026 Nov, [facility] [address] [id number] [place] [address]- 7915 Oct, [facility] [address] [id number] [place] [address]- 4898 Oct, [facility] [address] [id number] [place] [address]- 1337 Oct, [facility] [address] [id number] [place] [address]- 6972 Oct, [facility] [address] [id number] [place] [address]- 4101 Oct, [facility] [address] [id number] [place] [address]- 7242 September, [facility] [address] [id number] [place] [address]- 7919 September, [facility] [address] [id number] [place] [address]- 2446 September, [facility] [address] [id number] [place] [address]- 0896 September, [facility] [address] [id number] [place] [address]- 9707 September, [facility] [address] [id number] [place] [address]- 2977 September, [facility] [address] [id number] [place] [address]- 4153 September, [facility] [address] [id number] [place] [address]- 2946 September, [facility] [address] [id number] [place] [address]- 7688 Aug, [facility] [address] [id number] [place] [address]- 2274 Aug, [facility] [address] [id number] [place] [address]- 8585 Aug, [facility] [address] [id number] [place] [address]- 2472 Aug, [facility] [address] [id number] [place] [address]- 7209 Aug, [facility] [address] [id number] [place] [address]- 0288 Aug, [facility] [address] [id number] [place] [address]- 7786 Aug, [facility] [address] [id number] [place] [address]- 3740 Aug, [facility] [address] [id number], [place] [address]- 8768 Aug, [facility] [address] [id number] [place] [address]- 4260 Aug, [facility] [address] [id number] [place] [address]- 9110 Aug, [facility] [address] [id number] [place] [address]- 4233 Aug, [facility] [address] [id number] [place] [address]- 5206 29 Jul, 2011 [facility] [address] [id number] [place] [address]- 6556 28 Jul, 2011 [facility] [address] [id number] [place] [address] 2546 27 Jul, 2011 [facility] [address] [id number] [place] [address]- 6966 23 Jul, 2011 [facility] [address] [id number] [place] [address] 2546 21 Jul, 2011 [facility] [place] [facility] [address] [id number] [place] [address]- 5906 21 Jul, 2011 [facility] [place] [address] [id number] [place] [address]- 8416 14 Jul, 2011 [facility] [place] [address] [id number] [place] [address]- 2306 13 Jul, 2011 [facility] [place] [facility] [address] [id number] [place] [address]- 4345 07 Jul, 2011 [facility] [place] [address] [id number] [place] [address]- 5906 24 Jun, 2011 [facility] [address] [facility] [id number] [place] [address]- 0957 23 Jun, 2011 [facility] [place] [facility] [address] [id number] [place] [address] 2546 23 Jun, 2011 [facility] [place] [facility] [address] [id number] [place] [address] 2546 14 Jun, 2011 [facility] [place] [facility] [address] [id number] [place] [address]- 8636 02 Jun, 2011 [facility] [place] [facility] [address] [id number] [place] [address] 2546 02 Jun, 2011 [facility] [place] [facility] [address] [id number] [place] [address] 2546 Jun, [facility] [address] [id number] [place] [address]- 7340 May, [facility] [place] [facility] [address] [id number] [place] [address]- 4579 May, [facility] [place] [facility] [address] [id number] [place] [address]- 4140 May, [facility] [place] [facility] [address] [id number] [place] [address]- 5677 May, [facility] [place] [facility] [address] [id number] [place] [address]- 5777 May, [facility] [place] [facility] [address] [id number] [place] [address]- 4915 May, [facility] [place] [facility] [address] [id number] [place] [address]- 6506 May, [facility] [place] [facility] [address] [id number] [place] [address]- 3193 Apr, [facility] [place] [facility] [address] [id number] [place] [address]- 6657 Apr, [facility] [place] [facility] [address] [id number] [place] [address]- 5215 Apr, [facility] [place] [facility] [address] [id number] [place] [address]- 7505 Apr, [facility] [place] [facility] [address] [id number], [place] [address]- 8437 Apr, [facility] [place] [facility] [address] [id number] [place] [address]- 4204 Apr, [facility] [place] [facility] [address] [id number] [place] [address]- 7132 13 Apr, 2011 [facility] [place] [facility] [address] [id number] [place] [address]- 7214 08 Apr, 2011 [facility] [place] [facility] [address] [id number] [place] [address]- 6917 05 Apr, 2011 [facility] [place] [facility] [address] [id number] [place] [address]- 2938 Mar, [facility] [place] [facility] [address] [id number] [place] [address]- 9826 Mar, [facility] [place] [facility] [address] [id number] [place] [address]- 1226 Mar, [facility] [place] [facility] [address] [id number] [place] [address]- 8592 Mar, [facility] [place] [facility] [address] [id number] [place] [address]- 8529 Mar, [facility] [place] [facility] [address] [id number] [place] [address]- 5631 Feb, [facility] [place] [facility] [address] [id number] [place] [address]- 7650 Feb, [facility] [place] [facility] [address] [id number] [place] [address]- 2452 Feb, [facility] [place] [facility] [address] [id number] [place] [address]- 6634 Dec, [facility] [place] [facility] [address] [id number] [place] [address]- 1063 Nov, [facility] [place] [facility] [address] [id number] [place] [address]- 7496 Apr, [facility] [place] [facility] [address] [id number] [place] [address]- 2913 20 Apr, 2010 [facility] [place] [facility] [address] [id number] [place] [address]- 9686 16 Apr, 2010 [facility] [place] [facility] [address] [id number] [place] [address]- 4376 13 Apr, 2010 [facility] [place] [facility] [address] [id number] [place] [address]- 8255 09 Apr, 2010 [facility] [address] [facility] [id number], [place] [address]- 0592 Apr, [facility] [address] [facility] [id number], [place] [address]- 6191 Apr, [facility] [address] [facility] [id number], [place] [address]- 3906 Apr, [facility] [address] [facility] [id number] [place] [address]- 4022 Mar, [facility] [address] [facility] [id number], [place] [address]- 5724 Mar, [facility] [address] [facility] [id number] [place] [address]- 3992 Mar, [facility] [id number], [place] [address]- 4629 Mar, [facility] [id number] [place] [address]- 7603 Mar, [facility] [id number], [place] [address]- 1548 Mar, [facility] [address]00565[place], [place] [address]- 3886 Mar, [facility] [address]00565[address], [place] [address]- 1709 Mar, [facility] [address]00565[address], [place] [address]- 4423 Mar, [facility] [address] [id number], [place] [address]- 1799 Mar, IMMUNIZATIONS No Known Immunizations SOCIAL HISTORY Never Assessed REASON FOR VISIT blood sugars remain high PLAN OF CARE VITAL SIGNS MEDICATIONS Medication Instructions Dosage Frequency Start Date End Date Duration Status NovoLog Flexpen 100 UNIT/ML Subcutaneous 3 times a day before meals 15 units Active RESULTS No Results PROCEDURES No Known [...]
--- OUTSIDE RECORDS SUMMARY | 2018-04-22 22:59 | XMS REPORT ---
Author Author CARLOS LARA [facility] Address [address] [place] [address] Care Team Providers Care Market Development Trainer Name Role Phone CARLOS LARA Unavailable PROBLEMS Type Condition ICD9-CM Code WQZ25-PB Code Onset Dates Condition Status SNOMED Code Problem Severe sleep apnea G47.30 Active 32293394 Problem Iron deficiency anemia, unspecified iron deficiency anemia type D50.9 Active 21837904 Problem Stenosis of carotid artery, unspecified laterality I65.29 Active 73493292 Problem Decreased diffusion capacity R94.2 Active 95671161 Problem Coronary artery disease involving andreafski coronary artery of andreafski heart, angina presence unspecified I25.10 Active 5164859021016 Problem Generalized osteoarthritis M15.9 Active 494531651 Problem Aortic valve sclerosis I35.8 Active 87687837 Problem Essential hypertension I10 Active 81106290 Problem Renal osteodystrophy N25.0 Active 89628052 Problem Anxiety about health F41.8 Active 204410612 Problem 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 Active 4300898 Problem Type 2 diabetes mellitus with unspecified complications E11.8 Active 88526793 Problem Type 2 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 Active 85925896 Problem Chronic kidney disease, unspecified CKD stage N18.9 Active 934111968 Problem Pain R52 Active 43503908 Problem care home 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.4 Active 274528833 Problem Acute anxiety F41.9 Active 46954403 Problem Inability to bear weight R26.89 Active 592753962 Problem Type 2 diabetes mellitus with diabetic polyneuropathy E11.42 Active 945880875 Problem Type 2 diabetes mellitus with foot ulcer E11.621 Active 702447470 Problem Type 2 diabetes mellitus with hyperglycemia E11.65 Active 07381164 Problem Slow transit constipation K59.01 Active 23592150 Problem Bladder spasms N32.89 Active 483093681 Problem Chronic kidney disease (CKD), stage 4 (severe) N18.4 Active 595867860 Problem Other chronic pain G89.29 Active 87633134 Problem Diarrhea, unspecified type R19.7 Active 38048960 Problem Mixed hyperlipidemia E78.2 Active 598105748 Problem Trochanteric bursitis of left hip M70.62 Active 719551597391484 Problem Anemia in other chronic diseases classified elsewhere D63.8 Active 496450043 Problem Chronic kidney disease, stage 3 (moderate) N18.3 Active 060470462 Problem Port catheter in place Z95.828 Active 632194525 Problem Transient cerebral ischemia, unspecified type G45.9 Active 055220701 Problem Hypoxemia R09.02 Active 575047174 Problem BMI 50.0-59.9, adult Z68.43 Active 417296802 ALLERGIES No Information ENCOUNTERS Encounter Location Date Diagnosis [place] [address] [address] Jan, Acute anxiety F41.9 [place] [address] [address]- [address] Jan, [place] [address] [address]209- 1718 14 Jan, 2018 Acute anxiety F41.9 [place] [address] 7[address]92- 1769 04 Jan, 2018 Inability to bear weight R26.89 [facility] [address] [place] [id number] Dec, Low back pain M54.5 ; Other chronic pain G89.29 and Chronic kidney disease (CKD), stage 4 (severe) N18.4 [place] [address] [address]- [address]673 Dec, Type 2 diabetes mellitus with hyperglycemia E11.65 [place] [address] [address]- [address] Dec, [facility] [address] [place] [id number] Dec, Type 2 diabetes mellitus with hyperglycemia E11.65 ; Essential hypertension I10 ; Generalized osteoarthritis M15.9 ; Mixed hyperlipidemia E78.2 ; Hypoxia R09.02 ; Port catheter in place Z95.828 ; Anemia due to acute blood loss D62 ; Chronic kidney disease, unspecified CKD stage N18.9 and Severe sleep apnea G47.30 [place] [address] [place] [id number] [place] [address] 65198- 4222 Dec, Type 2 diabetes mellitus with hyperglycemia E11.65 [place] [address] [place] [id number] [place] [address] 55784- 9650 Dec, [place] [address] 6[address]54- 3680 Dec, Type 2 diabetes mellitus with hyperglycemia E11.65 [place] [address] [place] [id number] [place] [address] 73896- 4744 Dec, Left leg pain M79.605 [place] [id number] [place] [address] 91509- 4819 Nov, Slow transit constipation K59.01 [place] [address] [place] [id number] [place] [address] 92697- 1983 Nov, [facility] [address] [place] [id number] Nov, Anemia due to acute blood loss D62 [place] [id number] [place] [address] 67490- 6108 Nov, [place] [address] [place] [id number] [place] [address] 58313- 9010 Nov, Bladder spasms N32.89 [place] [address] [place] [id number] [place] [address] 29881- 2422 Nov, Pain R52 [facility] [address] [place] [id number] Nov, Anemia due to acute blood loss D62 [place] [id number] [place] [address] 12793- 3956 Nov, Pain in right hip M25.551 and Pain in left hip M25.552 [place] [address] [address] Nov, [facility] [address] [address] Nov, [facility] [address], [place] [address] 6926 Nov, [facility] [address] [place] [address] 11907- 8575 Nov, [facility] [address] [place] [address] 30306- 9389 Oct, [facility] [address] [place] [address] 89691- 0633 Oct, [facility] [address] [place] [id number] Oct, Encounter for examination for admission to retirement Z02.2 ; Chronic kidney disease, unspecified CKD stage N18.9 ; Type 2 diabetes mellitus with unspecified complications E11.8 ; care home 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.4 ; Essential hypertension I10 ; Hypoxia R09.02 ; Severe sleep apnea G47.30 ; Stenosis of carotid artery, unspecified laterality I65.29 ; Generalized osteoarthritis M15.9 ; Coronary artery disease involving andreafski coronary artery of andreafski heart, angina presence unspecified I25.10 ; Port catheter in place Z95.828 and Hemorrhoids, unspecified hemorrhoid type K64.9 [facility] [address] [place] [id number] [address] Oct, [facility] [address], [place] [address] 9741 Oct, [facility] [address], [place] [address] 6807 Oct, [facility] [address], [place] [address] 5511 Oct, [facility] [address] [place] [id number], [place] [address] September, BMI 50.0-59.9, adult Z68.43 [place] [address] [place] [id number] [place] [address] 69064- 5795 September, [place] [address] 62411- 0837 September, [place] [address] 88616- 9246 Aug, Type 2 diabetes mellitus with foot ulcer E11.621 ; Transient cerebral ischemia, unspecified type G45.9 ; Essential hypertension I10 ; Mixed hyperlipidemia E78.2 and BMI 50.0-59.9, adult Z68.43 [place] [address] 95941- 7046 Aug, [place] [address] 71569- 5780 14 Jul, 2017 Anxiety about health F41.8 and Mixed hyperlipidemia E78.2 [place] [address] [place] [id number] [place] [address] 03020- 2972 13 Jul, 2017 [place] [address] [place] [id number] [place] [address] 98488- 3601 12 Jun, 2017 [place] [address] [place] [id number] [place] [address] 95461- 8703 12 Jun, 2017 Type 2 diabetes mellitus with hyperglycemia E11.65 ; Type 2 diabetes mellitus with foot ulcer E11.621 ; Port catheter in place Z95.828 ; 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 ; Contact with and (suspected) exposure to potentially hazardous body fluids Z77.21 and BMI 50.0-59.9, adult Z68.43 [place] [address] 0[address]35- 0129 May, [address] [address]- [address] May, Open wound of right great toe, subsequent encounter S91.101D [address] [place] [address]- [address] May, [place] [address] [place] [id number] [place] [address] 59504- 0124 Apr, [place] [address] [place] [id number] [place] [address] 29861- 1309 Apr, [place] [address] [place] [id number] [place] [address] 14259- 8308 Apr, [place] [address] [place] [id number] [place] [address] 06463- 9715 Apr, Type 2 diabetes mellitus with diabetic polyneuropathy E11.42 [place] [address] 38299- 2625 13 Apr, 2017 Open wound of right great toe, subsequent encounter S91.101D [place] [address] [place] [id number] [place] [address] 77634- 4735 08 Apr, 2017 Open wound of right great toe, subsequent encounter S91.101D ; Breast pain, left N64.4 ; Breast cancer screening Z12.31 ; Type 2 diabetes mellitus with foot ulcer E11.621 ; Essential hypertension I10 and BMI 50.0-59.9, adult Z68.43 [place] [address] [place] [id number] [place] [address] 88471- 9282 29 Mar, 2017 Encounter for immunization Z23 [place] [address] [place] [id number] [place] [address] 22544- 7498 Mar, [place] [address] [place] [id number] [place] [address] 44301- 9492 Mar, [place] [address] [place] [id number] [place] [address] 32902- 8898 10 Mar, 2017 Type 2 diabetes mellitus with diabetic polyneuropathy E11.42 ; Type 2 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 ; Type 2 diabetes mellitus with foot ulcer E11.621 ; Essential hypertension I10 ; Hypoxemia R09.02 and Generalized osteoarthritis M15.9 [place] [address] [place] [address] Mar, Chronic kidney disease, stage 3 (moderate) N18.3 ; Acute cystitis without hematuria N30.00 ; Essential hypertension I10 ; Muscle spasms of neck M62.838 ; Type 2 diabetes mellitus with diabetic polyneuropathy E11.42 and BMI 50.0-59.9, adult Z68.43 [facility] [address] [place] [id number] [place] [address] 92103- 8164 Feb, [facility] [address] [place] [id number] [place] [address] 44820 -0979 Feb, [facility] [address] 94520- 2805 Feb, [facility] [address] 21956- 6573 Feb, [facility] [address] 29524- 5090 Feb, [facility] [address] [place] [id number] [place] [address] 75304- 8168 Feb, [facility] [address] 82708- 9444 Feb, Mixed hyperlipidemia E78.2 [facility] [address] [place] [id number] [place] [address] 72556- 6898 Feb, [facility] [address] [place] [id number] [place] [address] 95856- 1782 Jan, [facility] [address] [place] [id number] [place] [address] 53521- 9706 14 Jan, 2017 Generalized osteoarthritis M15.9 [facility] [address] [place] [id number] [place] [address] 52588- 6833 Oct, [facility] [address] [place] [id number] [place] [address] 31641- 1438 Jul, [facility] [address] 21411- 4946 13 Jul, 2016 [place] [address] [place] [address] 42979- 3134 Jul, Type 2 diabetes mellitus with hyperglycemia E11.65 ; Chronic kidney disease, stage 3 (moderate) N18.3 ; Type 2 diabetes mellitus with foot ulcer E11.621 ; Type 2 diabetes mellitus with diabetic polyneuropathy E11.42 ; Generalized osteoarthritis M15.9 ; Trochanteric bursitis of left hip M70.62 and Tinea pedis of both feet B35.3 [place] [address] [place] [id number] [place] [address] 33059- 2906 13 Jun, 2016 [place] [address] [place] [id number] [place] [address] 23229- 5823 Apr, [place] [address] [place] [id number] [place] [address] 52876- 2533 Apr, [place] [address] [place] [id number] [place] [address] 73651- 4100 Mar, [place] [address] [place] [id number] [place] [address] 76721- 8178 Feb, Encounter for immunization Z23 [place] [address] [place] [id number] [place] [address] 63284- 2499 Feb, [place] [address] [place] [address] 28298- 7936 Feb, Type 2 diabetes mellitus with hyperglycemia E11.65 ; Encounter for immunization Z23 ; Diarrhea, unspecified type R19.7 ; Essential hypertension I10 ; Mixed hyperlipidemia E78.2 ; Hypoxia R09.02 ; 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 and Type 2 diabetes mellitus with foot ulcer E11.621 [place] [address] [place] [address] 96635- 3134 Jan, [place] [address] [place] [address] 05260- 9457 Jan, Type 2 diabetes mellitus with hyperglycemia E11.65 and Pneumonia due to infectious organism, unspecified laterality, unspecified part of lung J18.9 [facility] [address] [place] [address] 51076- 7864 Jan, [facility] [address] [place] [id number] [place] [address] 60005- 5491 Jan, [facility] [address] [place] [id number] [place] [address] 10272- 4396 Oct, Type 2 diabetes mellitus with hyperglycemia E11.65 ; Generalized osteoarthritis M15.9 and Chronic prescription opiate use Z79.891 [facility] [address] [place] [id number] [place] [address] 67014- 2472 September, [facility] [address] [place] [id number] [place] [address] 80393- 9171 Aug, [facility] [address] [place] [id number] [place] [address] 82467- 0868 Aug, [facility] [address] [place] [id number] [place] [address] 14594- 4054 Aug, [facility] [address] [place] [id number] [place] [address] 77944- 7910 Aug, [facility] [address] [place] [id number] [place] [address] 70086- 6223 Jun, [facility] [address] [place] [id number] [place] [address] 44105- 0193 Jun, Type 2 diabetes mellitus with hyperglycemia E11.65 ; Mixed hyperlipidemia E78.2 ; Vaginal itching L29.8 ; Neck muscle spasm M62.838 and Skin abrasion T14.8 [facility] [address] [place] [id number] [place] [address] 74448- 9108 Apr, [facility] [address] [place] [id number] [place] [address] 04518- 0629 Apr, [facility] [address] [place] [id number] [place] [address] 14817- 7412 Mar, [facility] [address] [place] [id number] [place] [address] 34234- 2094 Feb, [facility] [address] [place] [id number] [place] [address] 55331- 0550 Feb, Type 2 diabetes mellitus with hyperglycemia E11.65 ; Type 2 diabetes mellitus with foot ulcer E11.621 ; Type 2 diabetes mellitus with diabetic polyneuropathy E11.42 and Encounter for immunization Z23 [facility] [address] [place] [id number] [place] [address] 64054- 0512 Jan, Hypertension 401.9 ; Uncontrolled type 2 diabetes mellitus 250.02 ; Right shoulder pain 719.41 and Ulcer of heel and midfoot 707.14 [facility] [address] [place] [id number] [place] [address] 77446- 8697 Dec, Diabetes with other specified manifestations, type II or unspecified type, not stated as uncontrolled 250.80 ; Ulcer of heel and midfoot 707.14 ; Hypertension 401.9 ; Hip pain, left 719.45 and Acute anxiety 300.00 [facility] [address] [place] [id number] [place] [address] 70034- 1815 Nov, [facility] [address] [place] [id number] [place] [address] 36820- 8977 Nov, [facility] [address] [place] [id number] [place] [address] 65320- 3245 September, Anxiety attack 300.01 and Cellulitis 682.9 [facility] [address] [place] [id number] [place] [address] 98981- 2648 September, [facility] [address] [place] [id number] [place] [address] 53095- 4088 September, [facility] [address] [place] [id number] [place] [address] 22483- 9809 September, [facility] [address] [place] [id number] [place] [address] 24382- 3637 Aug, [facility] [address] [place] [address]- 3955 13 Aug, 2014 [facility] [address] [id number] [place] [address]- 4786 13 Jul, 2014 [facility] [place] [facility] [address] [id number] [place] [address]- 2546 13 Jul, 2014 [facility] [address] [id number] [place] [address]- 0441 05 Jul, 2014 [facility] [place] [facility] [address] [id number] [place] [address]- 1022 13 May, 2014 [facility] [place] [facility] [address] [id number] [place] [address]- 5722 13 May, 2014 [facility] [place] [facility] [address] [id number] [place] [address]- 8701 11 Mar, 2014 [facility] [place] [facility] [address] [id number] [place] [address]- 2764 Mar, [facility] [place] [facility] [address] [id number] [place] [address]- 4091 Mar, [facility] [place] [facility] [address] [id number] [place] [address]- 6312 Mar, [facility] [place] [facility] [address] [facility] [id number] [place] [address]- 4607 07 Mar, 2014 [facility] [place] [facility] [address] [id number] [place] [address]- 7022 07 Mar, 2014 [facility] [place] [facility] [address] [id number] [place] [address]- 7591 07 Mar, 2014 [facility] [place] [facility] [address] [id number] [place] [address]- 5774 14 Feb, 2014 [facility] [place] [facility] [address] [id number] [place] [address]- 4702 14 Feb, 2014 [facility] [place] [facility] [address] [id number] [place] [address]- 4157 30 Jan, 2014 [facility] [place] [facility] [address] [id number] [place] [address]- 1941 30 Sep, 2013 [facility] [place] [facility] [address] [id number] [place] [address] 2546 26 Sep, 2013 [facility] [place] [facility] [address] [id number] [place] [address]- 1191 26 Sep, 2013 [facility] [place] [facility] [address] [id number] [place] [address] 2541 25 Sep, 2013 [facility] [place] [facility] [address] [id number] [place] [address]- 7706 25 Sep, 2013 [facility] [place] [facility] [address] [id number] [place] [address]- 9323 25 Sep, 2013 [facility] [place] [facility] [address] [id number] [place] [address]- 4982 25 Sep, 2013 [facility] [place] [facility] [address] [id number] [place] [address]- 4608 18 Sep, 2013 [facility] [place] [facility] [address] [id number] [place] [address] 2543 18 Sep, 2013 [facility] [place] [facility] [address] [id number], [place] [address]- 0976 06 Sep, 2013 [facility] [place] [facility] [address] [id number], [place] [address]- 2548 06 Sep, 2013 [facility] [place] [facility] [address] [id number], [place] [address]- 2541 05 Sep, 2013 [facility] [place] [facility] [address] [id number] [place] [address] 2546 05 Sep, 2013 [facility] [place] [facility] [address] [id number] [place] [address]- 2546 05 Sep, 2013 [facility] [place] [facility] [address] [id number], [place] [address]- 2543 05 Sep, 2013 [facility] [place] [facility] [address] [id number], [place] [address]- 0639 Jan, 2013 [facility] [place] [facility] [address] [id number] [place] [address]- 2026 Jan, 2013 [facility] [place] [facility] [address] [id number] [place] [address]- 0293 Dec, [facility] [place] [facility] [address] [id number] [place] [address]- 3672 Dec, [facility] [place] [facility] [address] [id number] [place] [address]- 6601 Dec, [facility] [place] [facility] [address] [id number] [place] [address]- 0594 Dec, [facility] [place] [facility] [address] [id number] [place] [address]- 1552 Dec, [facility] [place] [facility] [address] [id number] [place] [address]- 2677 Dec, [facility] [place] [facility] [address] [id number] [place] [address]- 4367 Dec, [facility] [place] [facility] [address] [id number] [place] [address]- 5446 Dec, [facility] [place] [facility] [address] [id number] [place] [address]- 5948 Dec, [facility] [place] [facility] [address] [id number] [place] [address]- 7326 Dec, [facility] [place] [facility] [address] [id number] [place] [address]- 1508 Nov, [facility] [place] [facility] [address] [id number] [place] [address]- 4889 Nov, [facility] [place] [facility] [address] [id number] [place] [address]- 6165 Nov, [facility] [place] [facility] [address] [id number] [place] [address]- 6087 Nov, [facility] [place] [facility] [address] [id number] [place] [address]- 9080 Nov, [facility] [place] [facility] [address] [id number] [place] [address]- 0490 Nov, [facility] [place] [facility] [address] [id number] [place] [address]- 8410 Oct, [facility] [place] [facility] [address] [id number] [place] [address]- 8465 Oct, [facility] [place] [facility] [address] [id number] [place] [address] Oct, [facility] [place] [facility] [address] [id number] [place] [address] Oct, [facility] [place] [facility] [address] [id number] [place] [address] Oct, [facility] [place] [facility] [address] [id number] [place] [address] Oct, [facility] [place] [facility] [address] [id number] [place] [address] Oct, [facility] [place] [facility] [address] [id number] [place] [address] Oct, [facility] [place] [facility] [address] [id number] [place] [address] Oct, [facility] [place] [facility] [address] [id number] [place] [address] Oct, [facility] [place] [facility] [address] [id number] [place] [address] Oct, [facility] [place] [facility] [address] [id number] [place] [address] Oct, [facility] [place] [facility] [address] [id number] [place] [address] September, [facility] [place] [facility] [address] [id number] [place] [address] September, [facility] [place] [facility] [address] [id number] [place] [address] September, [facility] [place] [facility] [address] [id number] [place] [address] Aug, [facility] [place] [facility] [address] [id number] [place] [address] Aug, [facility] [place] [facility] [address] [id number] [place] [address] Jul, [facility] [place] [facility] [address] [id number] [place] [address] Jul, [facility] [place] [facility] [address] [id number] [place] [address] Jul, [facility] [place] [facility] [address] [id number] [place] [address] Jul, [facility] [place] [facility] [address] [id number] [place] [address] Jul, [facility] [place] [facility] [address] [id number] [place] [address] Jul, [facility] [place] [facility] [address] [id number] [place] [address]- [address] Jul, [facility] [place] [facility] [address] [id number] [place] [address] Jul, [facility] [place] [facility] [address] [id number] [place] [address] Jul, [facility] [place] [facility] [address] [id number] [place] [address] Jul, [facility] [place] [facility] [address] [id number] [place] [address] 9[address] Jun, [facility] [place] [facility] [address] [id number] [place] [address] 2987 Jun, [facility] [place] [facility] [address] [id number] [place] [address] 8209 Jun, [facility] [address] [id number] [place] [address] 4618 Jun, [facility] [address] [id number] [place] [address] 2263 May, [facility] [address] [id number] [place] [address]- 7963 May, [facility] [address] [id number] [place] [address] Apr, [facility] [address] [id number] [place] [address] 8335 Apr, [facility] [address] [id number] [place] [address] 3997 Apr, [facility] [address] [id number] [place] [address] 2363 Apr, [facility] [address] [id number] [place] [address]- 0673 Apr, [facility] [address] [id number] [place] [address] 9921 Apr, [facility] [address] [facility] [id number] [place] [address] Apr, [facility] [address] [id number] [place] [address] 2549 Apr, [facility] [address] [id number] [place] [address]- 1541 Mar, [facility] [address] [id number] [place] [address] 4803 Mar, [facility] [address] [id number] [place] [address]- 2546 Mar, [facility] [address] [id number] [place] [address] 8172 Mar, [facility] [place] [facility] [address] [id number] [place] [address]- 3253 08 Mar, 2013 [facility] [place] [facility] [address] [id number] [place] [address]- 2684 Mar, [facility] [place] [facility] [address] [id number] [place] [address]- 7901 30 Feb, 2013 [facility] [place] [facility] [address] [id number] [place] [address]- 6606 30 Feb, 2013 [facility] [place] [facility] [address] [id number] [place] [address] Feb, [facility] [place] [facility] [address] [id number] [place] [address]- 9656 Feb, [facility] [place] [facility] [address] [id number] [place] [address]- 8636 14 Feb, 2013 [facility] [place] [facility] [address] [id number] [place] [address]- 3482 14 Feb, 2013 [facility] [place] [facility] [address] [id number] [place] [address]- 3419 04 Feb, 2013 [facility] [place] [facility] [address] [id number], [place] [address] 27 Jan, 2013 [facility] [place] [facility] [address] [id number], [place] [address] 6740 26 Jan, 2013 [facility] [place] [facility] [address] [id number], [place] [address] 7813 19 Jan, 2013 [facility] [place] [facility] [address] [id number] [place] [address]- 8935 05 Jan, 2013 [facility] [place] [facility] [address] [id number], [place] [address]- 2428 16 Dec, 2012 [facility] [place] [facility] [address] [id number], [place] [address] 3[address] 16 Dec, 2012 [facility] [place] [facility] [address] [id number], [place] [address] 2778 Dec, [facility] [address] [id number] [place] [address]- 3182 Nov, [facility] [place] [facility] [address] [id number] [place] [address]- 0596 Nov, [facility] [place] [facility] [address] [id number] [place] [address]- 1915 Nov, [facility] [place] [facility] [address] [id number] [place] [address]- 3300 Nov, [facility] [place] [facility] [address] [id number] [place] [address]- 7376 Nov, [facility] [place] [facility] [address] [id number] [place] [address]- 4699 Nov, [facility] [address] [id number] [place] [address]- 4782 Oct, [facility] [place] [facility] [address] [id number] [place] [address]- 4641 Oct, [facility] [place] [facility] [address] [id number] [place] [address]- 5981 Oct, [facility] [place] [facility] [address] [id number] [place] [address]- 2348 Oct, [facility] [place] [facility] [address] [id number] [place] [address]- 9785 Oct, [facility] [place] [facility] [address] [id number] [place] [address]- 8686 Oct, [facility] [place] [facility] [address] [id number] [place] [address]- 3310 September, [facility] [place] [facility] [address] [id number] [place] [address]- 3834 September, [facility] [place] [facility] [address] [id number] [place] [address]- 9805 September, [facility] [place] [facility] [address] [id number] [place] [address]- 7959 15 Sep, 2012 [facility] [address] [id number] [place] [address]- 5745 23 Aug, 2012 [facility] [place] [facility] [address] [id number] [place] [address] 2546 Aug, [facility] [place] [facility] [address] [id number] [place] [address]- 7397 28 Jul, 2012 [facility] [place] [facility] [address] [id number] [place] [address]- 9628 Jul, [facility] [place] [facility] [address] [id number] [place] [address]- 8995 18 Jul, 2012 [facility] [place] [facility] [address] [id number] [place] [address]- 7690 15 Jul, 2012 [facility] [place] [facility] [address] [id number] [place] [address] 4004 Jul, [facility] [address] [id number] [place] [address]- 5847 08 Jul, 2012 [facility] [address] [id number] [place] [address]- 1792 Jun, [facility] [place] [facility] [address] [id number] [place] [address]- 0135 Jun, [facility] [address] [id number] [place] [address]- 4524 May, [facility] [place] [facility] [address] [id number] [place] [address]- 9577 May, [facility] [place] [facility] [address] [id number] [place] [address]- 4739 Apr, [facility] [place] [facility] [address] [id number] [place] [address]- 6686 Apr, [facility] [place] [facility] [address] [id number] [place] [address]- 3883 13 Apr, 2012 [facility] [place] [facility] [address] [id number] [place] [address]- 8047 13 Apr, 2012 [facility] [place] [facility] [address] [id number] [place] [address]- 9546 10 Apr, 2012 [facility] [place] [facility] [address] [facility] [id number] [place] [address]- 8126 10 Apr, 2012 [facility] [place] [facility] [address] [id number] [place] [address]- 2840 07 Apr, 2012 [facility] [place] [facility] [address] [id number] [place] [address]- 5071 Apr, [facility] [place] [facility] [address] [id number] [place] [address]- 7408 Apr, [facility] [place] [facility] [address] [id number] [place] [address]- 6711 Apr, [facility] [place] [facility] [address] [id number] [place] [address]- 2785 Apr, [facility] [place] [facility] [address] [id number] [place] [address]- 8858 Apr, [facility] [place] [facility] [address] [id number] [place] [address]- 8550 Apr, [facility] [place] [facility] [address] [id number] [place] [address]- 3229 Apr, [facility] [place] [facility] [address] [id number], [place] [address]- 8535 Apr, [facility] [place] [facility] [address] [id number] [place] [address]- 5698 Apr, [facility] [place] [facility] [address] [id number] [place] [address]- 5993 Mar, [facility] [place] [facility] [address] [id number] [place] [address]- 5326 Mar, [facility] [place] [facility] [address] [id number] [place] [address]- 8534 Mar, [facility] [place] [facility] [address] [id number] [place] [address]- 9224 Mar, [facility] [place] [facility] [address] [id number] [place] [address]- 0598 Mar, [facility] [place] [facility] [address] [id number] [place] [address]- 1563 Mar, [facility] [place] [facility] [address] [id number] [place] [address]- 1056 Mar, [facility] [place] [facility] [address] [id number] [place] [address]- 6054 Mar, [facility] [place] [facility] [address] [id number] [place] [address]- 7741 Mar, [facility] [place] [facility] [address] [facility] [id number] [place] [address]- 8804 Mar, [facility] [place] [facility] [address] [id number] [place] [address]- 6203 Feb, [facility] [place] [facility] [address] [id number] [place] [address]- 8475 Feb, [facility] [place] [facility] [address] [facility] [id number] [place] [address]- 4889 Feb, [facility] [place] [facility] [address] [id number] [place] [address]- 2896 Feb, [facility] [place] [facility] [address] [id number] [place] [address]- 5307 Feb, [facility] [place] [facility] [address] [id number] [place] [address]- 4745 Feb, [facility] [place] [facility] [address] [facility] [id number] [place] [address]- 1587 Jan, [facility] [place] [facility] [address] [id number] [place] [address]- 7941 Dec, [facility] [place] [facility] [address] [id number] [place] [address]- 6020 Dec, [facility] [place] [facility] [address] [id number] [place] [address]- 8827 Dec, [facility] [place] [facility] [address] [id number] [place] [address]- 0830 Dec, [facility] [place] [facility] [address] [id number] [place] [address]- 7924 Nov, [facility] [place] [facility] [address] [id number] [place] [address]- 6748 Nov, [facility] [place] [facility] [address] [id number] [place] [address]- 6650 Nov, [facility] [place] [facility] [address] [id number] [place] [address]- 4116 Nov, [facility] [place] [facility] [address] [id number] [place] [address]- 4551 Oct, [facility] [place] [facility] [address] [id number] [place] [address]- 1320 Oct, [facility] [place] [facility] [address] [id number] [place] [address]- 0789 Oct, [facility] [place] [facility] [address] [id number] [place] [address]- 8225 Oct, [facility] [place] [facility] [address] [id number] [place] [address]- 8768 Oct, [facility] [place] [facility] [address] [id number] [place] [address]- 9035 September, [facility] [place] [facility] [address] [id number] [place] [address]- 8726 September, [facility] [place] [facility] [address] [id number] [place] [address]- 8463 September, [facility] [place] [facility] [address] [id number] [place] [address]- 7650 September, [facility] [address] [id number] [place] [address]- 9840 September, [facility] [place] [facility] [address] [id number] [place] [address]- 6553 September, [facility] [address] [id number] [place] [address]- 6032 September, [facility] [place] [facility] [address] [id number] [place] [address]- 4226 September, [facility] [address] [id number] [place] [address]- 9306 Aug, [facility] [place] [facility] [address] [id number] [place] [address]- 9093 Aug, [facility] [address] [id number] [place] [address]- 1740 Aug, [facility] [place] [facility] [address] [id number] [place] [address]- 7717 Aug, [facility] [address] [id number] [place] [address]- 5281 18 Aug, 2011 [facility] [place] [facility] [address] [id number] [place] [address]- 7120 17 Aug, 2011 [facility] [place] [facility] [address] [id number] [place] [address]- 0370 13 Aug, 2011 [facility] [place] [facility] [address] [id number] [place] [address]- 6016 12 Aug, 2011 [facility] [place] [facility] [address] [id number] [place] [address]- 5184 10 Aug, 2011 [facility] [place] [facility] [address] [id number] [place] [address]- 6174 09 Aug, 2011 [facility] [place] [facility] [address] [id number] [place] [address]- 1122 02 Aug, 2011 [facility] [place] [facility] [address] [id number] [place] [address]- 5031 02 Aug, 2011 [facility] [place] [facility] [address] [id number] [place] [address]- 7047 29 Jul, 2011 [facility] [place] [facility] [address] [id number] [place] [address]- 6766 28 Jul, 2011 [facility] [place] [facility] [address] [id number] [place] [address]- 6317 27 Jul, 2011 [facility] [place] [facility] [address] [id number] [place] [address]- 4393 23 Jul, 2011 [facility] [place] [facility] [address] [id number] [place] [address]- 6226 21 Jul, 2011 [facility] [place] [facility] [address] [id number] [place] [address]- 8662 21 Jul, 2011 [facility] [place] [facility] [address] [id number] [place] [address]- 6618 14 Jul, 2011 [facility] [place] [facility] [address] [id number] [place] [address]- 3518 13 Jul, 2011 [facility] [place] [facility] [address] [id number] [place] [address]- 0730 07 Jul, 2011 [facility] [place] [facility] [address] [id number] [place] [address]- 5069 24 Jun, 2011 [facility] [place] [facility] [address] [id number] [place] [address]- 2884 Jun, [facility] [place] [facility] [address] [id number] [place] [address]- 9126 23 Jun, 2011 [facility] [place] [facility] [address] [id number] [place] [address]- 5112 14 Jun, 2011 [facility] [place] [facility] [address] [id number] [place] [address]- 9526 02 Jun, 2011 [facility] [place] [facility] [address] [id number] [place] [address]- 2766 Jun, [facility] [address] [id number] [place] [address]- 8957 Jun, [facility] [address] [id number] [place] [address]- 6660 May, [facility] [address] [id number] [place] [address]- 1553 May, [facility] [address] [id number] [place] [address]- 8903 May, [facility] [address] [id number] [place] [address]- 9090 May, [facility] [address] [id number] [place] [address]- 5212 May, [facility] [address] [id number] [place] [address]- 0984 May, [facility] [address] [id number] [place] [address]- 2977 May, [facility] [address] [id number] [place] [address]- 4561 Apr, [facility] [address] [id number] [place] [address]- 8420 Apr, [facility] [address] [id number] [place] [address]- 6574 Apr, [facility] [place] [facility] [address] [id number] [place] [address]- 1222 Apr, [facility] [place] [facility] [address] [id number] [place] [address]- 4550 Apr, [facility] [place] [facility] [address] [id number] [place] [address]34 Apr, [facility] [place] [facility] [address] [id number] [place] [address]- 8465 13 Apr, 2011 [facility] [place] [facility] [address] [id number] [place] [address] 2545 08 Apr, 2011 [facility] [address] [id number] [place] [address]- 1726 05 Apr, 2011 [facility] [place] [facility] [address] [id number] [place] [address]- 5150 Mar, [facility] [address] [id number] [place] [address]- 3080 Mar, [facility] [place] [facility] [address] [id number] [place] [address]- 3904 Mar, [facility] [address] [id number] [place] [address]- 1190 Mar, [facility] [place] [facility] [address] [id number] [place] [address]- 5376 Mar, [facility] [address] [id number] [place] [address]- 7263 Feb, [facility] [address] [id number] [place] [address]- 0069 Feb, [facility] [place] [facility] [address] [id number] [place] [address]- 7650 Feb, [facility] [address] [id number] [place] [address]- 0526 Dec, [facility] [place] [facility] [address] [id number] [place] [address]- 7668 Nov, [facility] [place] [facility] [address] [id number] [place] [address]- 8494 Apr, [facility] [place] [facility] [address] [id number] [place] [address]- 8584 20 Apr, 2010 [facility] [place] [facility] [address] [id number] [place] [address]- 2546 16 Apr, 2010 [facility] [place] [facility] [address] [id number] [id number] [address] Apr, [facility] [address] [facility] [id number], [place] [address]- 5835 Apr, [facility] [address] [facility] [id number], [place] [address]- 8203 Apr, [facility] [address] [facility] [id number], [place] [address]- 0930 Apr, [facility] [address] [facility] [id number], [place] [address]- 4348 Apr, [facility] [address] [facility] [id number], [place] [address]- 4111 Mar, [facility] [address] [facility] [id number], [place] [address]- 0554 Mar, [facility] [id number], [place] [address]- 5677 Mar, [facility] [id number], [place] [address]- 5814 Mar, [facility] [id number], [place] [address]- 8559 Mar, [facility] [id number] [address] Mar, [facility] [id number], [place] [address] Mar, [facility] [id number], [place] [address] Mar, [facility] [id number], [place] [address] Mar, [facility] [id number], [place] [address] Mar, IMMUNIZATIONS No Known Immunizations SOCIAL HISTORY [...]
--- OUTSIDE RECORDS SUMMARY | 2018-04-22 23:00 | XMS REPORT ---
Author Author CARLOS LARA [facility] Address [address] [place] [address] Care Team Providers Care Flamer Sealer Name Role Phone CARLOS LARA Unavailable PROBLEMS Type Condition ICD9-CM Code LHL00-VG Code Onset Dates Condition Status SNOMED Code Problem Severe sleep apnea G47.30 Active 72325621 Problem Iron deficiency anemia, unspecified iron deficiency anemia type D50.9 Active 84640870 Problem Stenosis of carotid artery, unspecified laterality I65.29 Active 71426409 Problem Decreased diffusion capacity R94.2 Active 29533781 Problem Coronary artery disease involving e[place] coronary artery of ekwok heart, angina presence unspecified I25.10 Active 0870820118469 Problem Generalized osteoarthritis M15.9 Active 825347209 Problem Aortic valve sclerosis I35.8 Active 54338363 Problem Essential hypertension I10 Active 44162339 Problem Renal osteodystrophy N25.0 Active 50894342 Problem Anxiety about health F41.8 Active 934073612 Problem 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 Active 6769961 Problem Type 2 diabetes mellitus with unspecified complications E11.8 Active 64852521 Problem Type 2 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 Active 26151201 Problem Chronic kidney disease, unspecified CKD stage N18.9 Active 592250691 Problem Pain R52 Active 39746268 Problem correction 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.4 Active 718236321 Problem Acute anxiety F41.9 Active 76392197 Problem Inability to bear weight R26.89 Active 171455681 Problem Type 2 diabetes mellitus with diabetic polyneuropathy E11.42 Active 923251706 Problem Type 2 diabetes mellitus with foot ulcer E11.621 Active 689027688 Problem Type 2 diabetes mellitus with hyperglycemia E11.65 Active 68532807 Problem Slow transit constipation K59.01 Active 48151942 Problem Bladder spasms N32.89 Active 527345677 Problem Chronic kidney disease (CKD), stage 4 (severe) N18.4 Active 177709742 Problem Other chronic pain G89.29 Active 28386190 Problem Diarrhea, unspecified type R19.7 Active 90978888 Problem Mixed hyperlipidemia E78.2 Active 986440489 Problem Trochanteric bursitis of left hip M70.62 Active 660532862693073 Problem Anemia in other chronic diseases classified elsewhere D63.8 Active 056461987 Problem Chronic kidney disease, stage 3 (moderate) N18.3 Active 057928294 Problem Port catheter in place Z95.828 Active 247068739 Problem Transient cerebral ischemia, unspecified type G45.9 Active 234053544 Problem Hypoxemia R09.02 Active 244043512 Problem BMI 50.0-59.9, adult Z68.43 Active 618636473 ALLERGIES No Information ENCOUNTERS Encounter Location Date Diagnosis [address] [address] 14 Jan, 2018 Acute anxiety F41.[address] [address]- [address] 04 Jan, 2018 Inability to bear weight R26.89 [facility] [address] [place] [place] [id number] Dec, Low back pain M54.5 ; Other chronic pain G89.29 and Chronic kidney disease (CKD), stage 4 (severe) N18.[address] [facility] [id number] [place] [address] 81648- 1277 Dec, Type 2 diabetes mellitus with hyperglycemia E11.65 [facility] [id number] [place] [address] 57248- 3278 Dec, [facility] [address] [place] [id number] Dec, Type 2 diabetes mellitus with hyperglycemia E11.65 ; Essential hypertension I10 ; Generalized osteoarthritis M15.9 ; Mixed hyperlipidemia E78.2 ; Hypoxia R09.02 ; Port catheter in place Z95.828 ; Anemia due to acute blood loss D62 ; Chronic kidney disease, unspecified CKD stage N18.9 and Severe sleep apnea G47.[address] [address]- [address] 14 Dec, 2017 Type 2 diabetes mellitus with hyperglycemia E11.65 [facility] [address] [address] Dec, [facility] [id number] [place] [address] 56322- 6536 Dec, Type 2 diabetes mellitus with hyperglycemia E11.65 [facility] [id number] [place] [address] 16172- 9082 Dec, Left leg pain M79.605 [facility] [id number] [place] [address] 75686- 2470 Nov, Slow transit constipation K59.01 [facility] [id number] [place] [address] 36594- 3649 Nov, [facility] [address] [place] [id number] Nov, Anemia due to acute blood loss D62 [facility] [id number] [place] [address] 88439- 5663 Nov, [facility] [id number] [place] [address] 91552- 6009 Nov, Bladder spasms N32.89 [facility] [id number] [place] [address] 55617- 2583 Nov, Pain R52 [facility] [address] [place] [id number] Nov, Anemia due to acute blood loss D62 [facility] [id number] [place] [address] 41448- 9911 Nov, Pain in right hip M25.551 and Pain in left hip M25.552 [facility] [id number] [place] [address] 28659- 3076 Nov, [facility] [id number] [place] [address] 39813- 1602 Nov, [facility] [id number] [place] [address] 45985- 1391 Nov, [facility] [id number] [place] [address] 31591- 5354 Nov, [facility] [id number] [place] [address] 01375- 0279 Oct, [facility] [id number] [place] [address] 55836- 3386 Oct, [facility] [address] [place] [id number] Oct, Encounter for examination for admission to longterm Z02.2 ; Chronic kidney disease, unspecified CKD stage N18.9 ; Type 2 diabetes mellitus with unspecified complications E11.8 ; correction 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.4 ; Essential hypertension I10 ; Hypoxia R09.02 ; Severe sleep apnea G47.30 ; Stenosis of carotid artery, unspecified laterality I65.29 ; Generalized osteoarthritis M15.9 ; Coronary artery disease involving ekw[place] coronary artery of ekwok heart, angina presence unspecified I25.10 ; Port catheter in place Z95.828 and Hemorrhoids, unspecified hemorrhoid type K64.9 [facility] [id number] [place] [address] 18264- 9278 Oct, [facility] [id number] [place] [address] 10772- 5371 Oct, [facility] [id number] [place] [address] 06021- 6608 Oct, [facility] [id number] [place] [address] 99405- 8120 Oct, [facility] [id number] [place] [address] 76404 -0533 September, BMI 50.0-59.9, adult Z68.43 [facility] [id number] [place] [address] 36389- 5981 September, [facility] [id number] [place] [address] 63825- 3604 September, [facility] [id number] [place] [address] 67380- 7032 Aug, Type 2 diabetes mellitus with foot ulcer E11.621 ; Transient cerebral ischemia, unspecified type G45.9 ; Essential hypertension I10 ; Mixed hyperlipidemia E78.2 and BMI 50.0-59.9, adult Z68.43 [facility] [id number] [place] [address] 45192- 3160 Aug, [facility] [address] 14277- 8159 Jul, Anxiety about health F41.8 and Mixed hyperlipidemia E78.[address] [address]18- 4267 Jul, [facility] [address] 07242- 1477 Jun, [address] 73853- 7649 Jun, Type 2 diabetes mellitus with hyperglycemia E11.65 ; Type 2 diabetes mellitus with foot ulcer E11.621 ; Port catheter in place Z95.828 ; 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 ; Contact with and (suspected) exposure to potentially hazardous body fluids Z77.21 and BMI 50.0-59.9, adult Z68.43 [facility] [id number] [place] [address] 78426- 4815 May, [facility] [id number] [place] [address] 90060- 7660 May, Open wound of right great toe, subsequent encounter S91.101D [address] 74205- 4384 May, [facility] [id number] [place] [address] 57038- 3523 Apr, [address] 05403- 6682 Apr, [facility] [id number] [place] [address] 22800- 9191 Apr, [facility] [id number] [place] [address] 14330- 6834 Apr, Type 2 diabetes mellitus with diabetic polyneuropathy E11.42 [facility] [id number] [place] [address] 90966- 9093 Apr, Open wound of right great toe, subsequent encounter S91.101D [facility] [id number] [place] [address] 96839- 9041 08 Apr, 2017 Open wound of right great toe, subsequent encounter S91.101D ; Breast pain, left N64.4 ; Breast cancer screening Z12.31 ; Type 2 diabetes mellitus with foot ulcer E11.621 ; Essential hypertension I10 and BMI 50.0-59.9, adult Z68.43 [facility] [id number] [place] [address] 23330- 0759 Mar, Encounter for immunization Z23 [facility] [id number] [place] [address] 76589- 4533 Mar, [facility] [id number] [place] [address] 45796- 4594 Mar, [facility] [id number] [place] [address] 06334- 6353 Mar, Type 2 diabetes mellitus with diabetic polyneuropathy E11.42 ; Type 2 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 ; Type 2 diabetes mellitus with foot ulcer E11.621 ; Essential hypertension I10 ; Hypoxemia R09.02 and Generalized osteoarthritis M15.9 [facility] [id number] [place] [address] 05997- 9843 02 Mar, 2017 Chronic kidney disease, stage 3 (moderate) N18.3 ; Acute cystitis without hematuria N30.00 ; Essential hypertension I10 ; Muscle spasms of neck M62.838 ; Type 2 diabetes mellitus with diabetic polyneuropathy E11.42 and BMI 50.0-59.9, adult Z68.43 [facility] [id number] [place] [address] 62988- 5450 Feb, [facility] [id number] [place] [address] 95988 -9967 Feb, [facility] [id number] [place] [address] 44006- 8469 Feb, [facility] [id number] [place] [address] 87719- 0020 Feb, [facility] [id number] [place] [address] 70077- 3822 Feb, [facility] [id number] [place] [address] 93187- 8847 Feb, [facility] [id number] [place] [address] 79382- 7002 Feb, Mixed hyperlipidemia E78.2 [facility] [id number] [place] [address] 30262- 3574 Feb, [facility] [id number] [place] [address] 17360- 2685 Jan, [facility] [id number] [place] [address] 28688- 2427 Jan, Generalized osteoarthritis M15.9 [facility] [id number] [place] [address] 86518- 6504 Oct, [facility] [id number] [place] [address] 38724- 9604 Jul, [facility] [id number] [place] [address] 75026- 9163 Jul, [facility] [address], [place] [address] 7814 02 Jul, 2016 Type 2 diabetes mellitus with hyperglycemia E11.65 ; Chronic kidney disease, stage 3 (moderate) N18.3 ; Type 2 diabetes mellitus with foot ulcer E11.621 ; Type 2 diabetes mellitus with diabetic polyneuropathy E11.42 ; Generalized osteoarthritis M15.9 ; Trochanteric bursitis of left hip M70.62 and Tinea pedis of both feet B35.3 [facility] [id number] [place] [address] 89943- 4863 13 Jun, 2016 [facility] [id number] [place] [address] 90820- 5041 Apr, [facility] [id number] [place] [address] 70109- 0162 Apr, [facility] [id number] [place] [address] 00983- 1109 Mar, [facility] [id number] [place] [address] 97080- 3610 Feb, Encounter for immunization Z23 [facility] [id number] [place] [address] 04243- 7295 Feb, [facility] [id number] [place] [address] 69041- 3259 Feb, Type 2 diabetes mellitus with hyperglycemia E11.65 ; Encounter for immunization Z23 ; Diarrhea, unspecified type R19.7 ; Essential hypertension I10 ; Mixed hyperlipidemia E78.2 ; Hypoxia R09.02 ; 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 and Type 2 diabetes mellitus with foot ulcer E11.621 [facility] [id number] [place] [address] 82307- 4101 Jan, [facility] [id number] [place] [address] 13018- 4766 Jan, Type 2 diabetes mellitus with hyperglycemia E11.65 and Pneumonia due to infectious organism, unspecified laterality, unspecified part of lung J18.9 [facility] [id number] [place] [address] 83433- 8191 Jan, [facility] [id number] [place] [address] 88420- 4217 Jan, [facility] [id number] [place] [address] 17686- 0233 Oct, Type 2 diabetes mellitus with hyperglycemia E11.65 ; Generalized osteoarthritis M15.9 and Chronic prescription opiate use Z79.891 [facility] [id number] [place] [address] 66138- 1693 September, [facility] [id number] [place] [address] 08051- 2638 Aug, [facility] [id number] [place] [address] 71282- 9500 Aug, [facility] [id number] [place] [address] 72393- 9999 Aug, [facility] [id number] [place] [address] 77145- 7305 Aug, [facility] [id number] [place] [address] 25516- 5129 Jun, [facility] [id number] [place] [address] 00895- 8904 Jun, Type 2 diabetes mellitus with hyperglycemia E11.65 ; Mixed hyperlipidemia E78.2 ; Vaginal itching L29.8 ; Neck muscle spasm M62.838 and Skin abrasion T14.8 [facility] [id number] [place] [address] 94587- 8424 Apr, [facility] [id number] [place] [address] 98216- 1893 Apr, [facility] [id number] [place] [address] 11584- 6861 Mar, [facility] [id number] [place] [address] 60824- 0917 Feb, [facility] [id number] [place] [address] 65753- 7826 Feb, Type 2 diabetes mellitus with hyperglycemia E11.65 ; Type 2 diabetes mellitus with foot ulcer E11.621 ; Type 2 diabetes mellitus with diabetic polyneuropathy E11.42 and Encounter for immunization Z23 [facility] [id number] [place] [address] 08214- 3165 Jan, Hypertension 401.9 ; Uncontrolled type 2 diabetes mellitus 250.02 ; Right shoulder pain 719.41 and Ulcer of heel and midfoot 707.14 [facility] [address] 06407- 5226 Dec, Diabetes with other specified manifestations, type II or unspecified type, not stated as uncontrolled 250.80 ; Ulcer of heel and midfoot 707.14 ; Hypertension 401.9 ; Hip pain, left 719.45 and Acute anxiety 300.00 [facility] [id number] [place] [address] 00586- 3897 Nov, [facility] [address] 49030- 2451 Nov, [facility] [id number] [place] [address] 81468- 9461 September, Anxiety attack 300.01 and Cellulitis 682.9 [facility] [id number] [place] [address] 57525- 8752 September, [facility] [id number] [place] [address] 71046- 2805 September, [facility] [id number] [place] [address] 57897- 8378 September, [facility] [id number] [place] [address] 18382- 2792 Aug, [facility] [address] 60149- 4668 Aug, [facility] [id number] [place] [address] 49426- 5367 Jul, [facility] [address] [place] [address]- 6539 13 Jul, 2014 [facility] [place] [facility] [address] [id number] [place] [address]- 6349 05 Jul, 2014 [facility] [place] [facility] [address] [id number] [place] [address]- 7620 13 May, 2014 [facility] [place] [facility] [address] [id number] [place] [address]- 2623 13 May, 2014 [facility] [place] [facility] [address] [id number] [place] [address]- 6274 Mar, [facility] [place] [facility] [address] [id number] [place] [address]- 8117 Mar, [facility] [place] [facility] [address] [id number] [place] [address]- 7246 Mar, [facility] [place] [facility] [address] [id number] [place] [address]- 4252 Mar, [facility] [place] [facility] [address] [id number] [place] [address]- 3907 Mar, [facility] [place] [facility] [address] [id number] [place] [address]- 3437 Mar, [facility] [place] [facility] [address] [facility] [id number] [place] [address]- 8644 Mar, [facility] [place] [facility] [address] [id number] [place] [address]- 7236 14 Feb, 2014 [facility] [place] [facility] [address] [id number] [place] [address]- 7024 14 Feb, 2014 [facility] [place] [facility] [address] [id number] [place] [address]- 5472 30 Jan, 2014 [facility] [place] [facility] [address] [id number] [place] [address]- 2857 30 Jan, 2014 [facility] [place] [facility] [address] [id number] [place] [address]- 3562 26 Jan, 2014 [facility] [place] [facility] [address] [id number] [place] [address]- 254 26 Sep, 2013 [facility] [place] [facility] [address] [id number] [place] [address] 2546 25 Sep, 2013 [facility] [place] [facility] [address] [id number] [place] [address] 2549 25 Sep, 2013 [facility] [place] [facility] [address] [id number] [place] [address] 2545 25 Sep, 2013 [facility] [place] [facility] [address] [id number] [place] [address] 2542 25 Sep, 2013 [facility] [place] [facility] [address] [id number] [place] [address]- 1630 18 Sep, 2013 [facility] [place] [facility] [address] [id number] [place] [address]- 7260 18 Sep, 2013 [facility] [place] [facility] [address] [id number] [place] [address]- 0012 06 Sep, 2013 [facility] [place] [facility] [address] [id number] [place] [address]- 5850 06 Sep, 2013 [facility] [place] [facility] [address] [id number] [place] [address]- 2548 05 Sep, 2013 [facility] [place] [facility] [address] [id number] [place] [address] 254 05 Sep, 2013 [facility] [place] [facility] [address] [id number] [place] [address] 2541 05 Sep, 2013 [facility] [place] [facility] [address] [id number] [place] [address] 2547 05 Sep, 2013 [facility] [place] [facility] [address] [id number] [place] [address] 2546 05 Sep, 2013 [facility] [place] [facility] [address] [id number] [place] [address] 2549 05 Sep, 2013 [facility] [place] [facility] [address] [id number] [place] [address]- 7820 Dec, [facility] [place] [facility] [address] [id number] [place] [address]- 1518 Dec, [facility] [place] [facility] [address] [id number] [place] [address]- 5523 Dec, [facility] [place] [facility] [address] [id number] [place] [address]- 4011 Dec, [facility] [place] [facility] [address] [id number] [place] [address]- 1454 Dec, [facility] [place] [facility] [address] [id number] [place] [address]- 0304 Dec, [facility] [place] [facility] [address] [id number] [place] [address]- 0465 Dec, [facility] [place] [facility] [address] [id number] [place] [address]- 9291 Dec, [facility] [place] [facility] [address] [id number] [place] [address]- 9667 Dec, [facility] [place] [facility] [address] [id number] [place] [address]- 6339 Dec, [facility] [place] [facility] [address] [id number] [place] [address]- 9503 Nov, [facility] [place] [facility] [address] [id number] [place] [address]- 6001 Nov, [facility] [place] [facility] [address] [id number] [place] [address]- 7867 Nov, [facility] [place] [facility] [address] [id number] [place] [address]- 1629 Nov, [facility] [place] [facility] [address] [id number] [place] [address]- 9481 Nov, [facility] [place] [facility] [address] [id number] [place] [address]- 9430 Nov, [facility] [place] [facility] [address] [id number] [place] [address]- 3792 30 Oct, 2013 [facility] [place] [facility] [address] [id number] [place] [address]- 8953 Oct, [facility] [place] [facility] [address] [id number] [place] [address]- 6796 Oct, [facility] [place] [facility] [address] [id number] [place] [address]- 5297 Oct, [facility] [place] [facility] [address] [id number] [place] [address]- 2417 Oct, [facility] [place] [facility] [address] [id number] [place] [address]- 4542 Oct, [facility] [place] [facility] [address] [id number] [place] [address]- 6196 Oct, [facility] [place] [facility] [address] [id number] [place] [address]- 7810 Oct, [facility] [place] [facility] [address] [id number] [place] [address] Oct, [facility] [place] [facility] [address] [id number] [place] [address] Oct, [facility] [place] [facility] [address] [id number] [place] [address] Oct, [facility] [place] [facility] [address] [id number] [place] [address] Oct, [facility] [place] [facility] [address] [id number] [place] [address] September, [facility] [place] [facility] [address] [id number] [place] [address] September, [facility] [place] [facility] [address] [id number] [place] [address] September, [facility] [place] [facility] [address] [id number] [place] [address] Aug, [facility] [place] [facility] [address] [id number] [place] [address] Aug, [facility] [place] [facility] [address] [id number] [place] [address] Jul, [facility] [place] [facility] [address] [id number] [place] [address] Jul, [facility] [place] [facility] [address] [id number] [place] [address] Jul, [facility] [place] [facility] [address] [id number] [place] [address] Jul, [facility] [place] [facility] [address] [id number] [place] [address] Jul, [facility] [place] [facility] [address] [id number] [place] [address] Jul, [facility] [place] [facility] [address] [id number] [place] [address] Jul, [facility] [place] [facility] [address] [id number] [place] [address] Jul, [facility] [place] [facility] [address] [id number] [place] [address] Jul, [facility] [place] [facility] [address] [id number] [place] [address] Jul, [facility] [place] [facility] [address] [id number] [place] [address] Jun, [facility] [place] [facility] [address] [id number] [place] [address] Jun, [facility] [place] [facility] [address] [id number] [place] [address] 68[address] Jun, [facility] [place] [facility] [address] [id number] [place] [address] Jun, [facility] [place] [facility] [address] [id number] [place] [address] 2786 10 May, 2013 [facility] [address] [id number] [place] [address] 3977 May, [facility] [place] [facility] [address] [id number] [place] [address]- 0695 Apr, [facility] [place] [facility] [address] [id number] [place] [address]- 6969 Apr, [facility] [place] [facility] [address] [id number] [place] [address]- 4080 Apr, [facility] [address] [id number] [place] [address]- 6835 Apr, [facility] [place] [facility] [address] [id number] [place] [address]- 7361 Apr, [facility] [address] [id number] [place] [address]- 9808 Apr, [facility] [place] [facility] [address] [id number] [place] [address]- 7284 Apr, [facility] [place] [facility] [address] [id number] [place] [address]- 4612 Apr, [facility] [place] [facility] [address] [facility] [id number] [place] [address]- 0187 Mar, [facility] [place] [facility] [address] [id number] [place] [address]- 9760 Mar, [facility] [place] [facility] [address] [id number] [place] [address]- 3076 Mar, [facility] [place] [facility] [address] [id number] [place] [address]- 8800 Mar, [facility] [place] [facility] [address] [id number] [place] [address]- 2874 Mar, [facility] [place] [facility] [address] [facility] [id number] [place] [address]- 1923 Mar, [facility] [place] [facility] [address] [id number] [place] [address]- 7315 30 Feb, 2013 [facility] [place] [facility] [address] [id number] [place] [address]- 8466 30 Feb, 2013 [facility] [place] [facility] [address] [id number] [place] [address]- 1060 18 Feb, 2013 [facility] [place] [facility] [address] [id number] [place] [address]- 5298 18 Feb, 2013 [facility] [place] [facility] [address] [id number] [place] [address]- 7501 Feb, [facility] [place] [facility] [address] [id number] [place] [address]- 0073 14 Feb, 2013 [facility] [place] [facility] [address] [id number] [place] [address]- 9895 04 Feb, 2013 [facility] [place] [facility] [address] [id number] [place] [address]- 9127 27 Jan, 2013 [facility] [place] [facility] [address] [id number] [place] [address]- 3865 26 Jan, 2013 [facility] [place] [facility] [address] [id number] [place] [address]- 2362 19 Jan, 2013 [facility] [place] [facility] [address] [id number] [place] [address]- 7763 05 Jan, 2013 [facility] [place] [facility] [address] [id number] [place] [address]- 6462 Dec, [facility] [place] [facility] [address] [id number] [place] [address]- 9766 Dec, [facility] [place] [facility] [address] [id number] [place] [address]- 1000 Dec, [facility] [place] [facility] [address] [id number] [place] [address]- 6420 Nov, [facility] [place] [facility] [address] [id number] [place] [address]- 4350 Nov, [facility] [place] [facility] [address] [id number] [place] [address]- 3720 16 Nov, 2012 [facility] [place] [facility] [address] [id number] [place] [address]- 7240 Nov, [facility] [place] [facility] [address] [id number] [place] [address]- 0843 Nov, [facility] [place] [facility] [address] [id number] [place] [address]- 5760 Nov, [facility] [place] [facility] [address] [id number] [place] [address]- 3741 Oct, [facility] [place] [facility] [address] [id number] [place] [address]- 5406 Oct, [facility] [place] [facility] [address] [id number] [place] [address]- 8320 Oct, [facility] [place] [facility] [address] [id number] [place] [address]- 4558 Oct, [facility] [place] [facility] [address] [id number] [place] [address]- 6090 Oct, [facility] [place] [facility] [address] [id number] [place] [address]- 2675 Oct, [facility] [place] [facility] [address] [id number] [place] [address]- 6085 September, [facility] [place] [facility] [address] [id number] [place] [address]- 2766 September, [facility] [place] [facility] [address] [id number] [place] [address]- 7696 September, [facility] [place] [facility] [address] [id number] [place] [address]- 4654 September, [facility] [place] [facility] [address] [id number] [place] [address]- 5025 Aug, [facility] [place] [facility] [address] [id number] [place] [address]- 9476 03 Aug, 2012 [facility] [address] [id number] [place] [address]- 9428 28 Jul, 2012 [facility] [address] [id number] [place] [address]- 6326 21 Jul, 2012 [facility] [address] [id number] [place] [address]- 7378 18 Jul, 2012 [facility] [address] [id number] [place] [address]- 8031 15 Jul, 2012 [facility] [address] [id number] [place] [address]- 4113 13 Jul, 2012 [facility] [address] [id number] [place] [address] 2546 08 Jul, 2012 [facility] [address] [id number] [place] [address]- 3193 20 Jun, 2012 [facility] [address] [id number] [place] [address]- 3507 13 Jun, 2012 [facility] [address] [id number] [place] [address]- 0287 May, [facility] [address] [id number] [place] [address]- 7374 04 May, 2012 [facility] [address] [id number] [place] [address]- 9416 18 Apr, 2012 [facility] [address] [id number] [place] [address]- 8261 18 Apr, 2012 [facility] [address] [id number] [place] [address]- 6865 13 Apr, 2012 [facility] [address] [id number] [place] [address]- 2866 13 Apr, 2012 [facility] [address] [id number] [place] [address] Apr, [facility] [place] [facility] [address] [id number] [place] [address]- 5022 Apr, [facility] [place] [facility] [address] [id number] [place] [address]- 3326 Apr, [facility] [place] [facility] [address] [id number] [place] [address] Apr, [facility] [place] [facility] [address] [id number] [place] [address]- 4060 Apr, [facility] [place] [facility] [address] [id number] [place] [address]- 5588 Apr, [facility] [place] [facility] [address] [id number] [place] [address]- 6318 Apr, [facility] [place] [facility] [address] [id number] [place] [address]- 0632 Apr, [facility] [place] [facility] [address] [id number] [place] [address]- 5676 Apr, [facility] [place] [facility] [address] [id number] [place] [address]- 5393 Apr, [facility] [place] [facility] [address] [id number] [place] [address]- 1313 Apr, [facility] [place] [facility] [address] [id number], [place] [address]- 8949 Apr, [facility] [place] [facility] [address] [id number], [place] [address]- 5251 Mar, [facility] [place] [facility] [address] [id number] [place] [address]- 9254 Mar, [facility] [place] [facility] [address] [id number] [place] [address]- 0396 Mar, [facility] [place] [facility] [address] [id number], [place] [address]- 2766 Mar, [facility] [place] [facility] [address] [id number], [place] [address]- 0029 Mar, [facility] [place] [facility] [address] [id number] [place] [address]- 5361 Mar, [facility] [place] [facility] [address] [facility] [id number] [place] [address]- 7333 Mar, [facility] [place] [facility] [address] [facility] [id number] [place] [address]- 9719 Mar, [facility] [place] [facility] [address] [facility] [id number] [place] [address]- 0633 Mar, [facility] [place] [facility] [address] [facility] [id number] [place] [address], [place] [address]- 4145 Mar, [facility] [place] [facility] [address] [facility] [id number] [place] [address]- 2820 Feb, [facility] [place] [facility] [id number] [place] [address]- 5249 Feb, [facility] [place] [facility] [address] [facility] [id number] [place] [address]- 5056 Feb, [facility] [place] [facility] [address] [id number] [place] [address]- 3975 Feb, [facility] [place] [facility] [address] [id number] [place] [address]- 7107 Feb, [facility] [place] [facility] [address] [facility] [id number], [place] [address]- 3043 Feb, [facility] [place] [facility] [address] [facility] [id number], [place] [address]- 5084 Jan, [facility] [place] [facility] [address] [facility] [id number], [place] [address]- 2277 Dec, [facility] [place] [facility] [address] [facility] [id number], [place] [address]- 9785 Dec, [facility] [place] [facility] [address] [facility] [id number], [place] [address]- 2813 Dec, [facility] [place] [facility] [address] [id number] [place] [address] 2541 Dec, [facility] [place] [facility] [address] [id number] [place] [address]- 3462 Nov, [facility] [place] [facility] [address] [id number] [place] [address]- 2546 Nov, [facility] [place] [facility] [address] [id number] [place] [address]- 8436 Nov, [facility] [place] [facility] [address] [id number] [place] [address]- 1014 Nov, [facility] [place] [facility] [address] [id number] [place] [address]- 3298 Oct, [facility] [place] [facility] [address] [id number] [place] [address]- 6585 Oct, [facility] [place] [facility] [address] [id number] [place] [address]- 7101 Oct, [facility] [place] [facility] [address] [id number] [place] [address]- 3141 Oct, [facility] [place] [facility] [address] [id number] [place] [address]- 6106 Oct, [facility] [place] [facility] [address] [id number] [place] [address]- 5487 September, [facility] [place] [facility] [address] [id number] [place] [address]- 6256 September, [facility] [place] [facility] [address] [id number] [place] [address]- 4628 September, [facility] [place] [facility] [address] [id number] [place] [address]- 2046 September, [facility] [place] [facility] [address] [id number] [place] [address]- 7806 September, [facility] [place] [facility] [address] [id number] [place] [address]- 0209 September, [facility] [address] [id number] [place] [address]- 5203 September, [facility] [place] [facility] [address] [id number] [place] [address]- 6596 September, [facility] [address] [id number] [place] [address]- 3609 Aug, [facility] [place] [facility] [address] [id number] [place] [address]- 6927 Aug, [facility] [address] [id number] [place] [address]- 8934 Aug, [facility] [address] [id number] [place] [address]- 6310 Aug, [facility] [address] [id number] [place] [address]- 5043 Aug, [facility] [place] [facility] [address] [id number] [place] [address]- 0473 Aug, [facility] [address] [id number] [place] [address]- 0523 Aug, [facility] [place] [facility] [address] [id number] [place] [address]- 9346 Aug, [facility] [place] [facility] [address] [id number] [place] [address]- 1117 Aug, [facility] [place] [facility] [address] [id number], [place] [address]- 1087 Aug, [facility] [place] [facility] [address] [id number] [place] [address]- 7006 Aug, [facility] [place] [facility] [address] [id number] [place] [address]- 8356 Aug, [facility] [place] [facility] [address] [id number] [place] [address]- 3072 Jul, [facility] [place] [facility] [address] [id number] [place] [address]- 8195 28 Jul, 2011 [facility] [address] [id number] [place] [address]- 9706 27 Jul, 2011 [facility] [place] [facility] [address] [id number] [place] [address]- 3596 23 Jul, 2011 [facility] [address] [id number] [place] [address] 2546 21 Jul, 2011 [facility] [place] [facility] [address] [id number] [place] [address] 2546 21 Jul, 2011 [facility] [address] [id number] [place] [address]- 3585 14 Jul, 2011 [facility] [place] [facility] [address] [id number] [place] [address]- 9646 13 Jul, 2011 [facility] [address] [id number] [place] [address]- 6436 07 Jul, 2011 [facility] [address] [id number] [place] [address]- 9135 24 Jun, 2011 [facility] [place] [facility] [address] [id number] [place] [address]- 3968 23 Jun, 2011 [facility] [address] [id number] [place] [address]- 4447 23 Jun, 2011 [facility] [place] [facility] [address] [id number] [place] [address] 2546 14 Jun, 2011 [facility] [place] [facility] [address] [id number] [place] [address] 2546 Jun, [facility] [place] [facility] [address] [id number] [place] [address]- 7756 02 Jun, 2011 [facility] [place] [facility] [address] [id number] [place] [address]- 2546 02 Jun, 2011 [facility] [place] [facility] [address] [id number] [place] [address]- 8513 May, [facility] [address] [id number] [place] [address]- 3055 May, [facility] [place] [facility] [address] [id number] [place] [address]- 0740 May, [facility] [place] [facility] [address] [id number] [place] [address]- 0154 May, [facility] [place] [facility] [address] [id number] [place] [address]- 9235 May, [facility] [address] [id number] [place] [address]- 8713 May, [facility] [place] [facility] [address] [id number] [place] [address]- 1705 May, [facility] [place] [facility] [address] [id number] [place] [address]- 3645 Apr, [facility] [place] [facility] [address] [id number] [place] [address]- 8832 30 Apr, 2011 [facility] [place] [facility] [address] [id number] [place] [address]- 9429 Apr, [facility] [place] [facility] [address] [id number] [place] [address]- 3946 Apr, [facility] [place] [facility] [address] [id number] [place] [address]- 0594 Apr, [facility] [place] [facility] [address] [id number], [place] [address]- 4702 Apr, [facility] [place] [facility] [address] [id number] [place] [address]- 1841 13 Apr, 2011 [facility] [place] [facility] [address] [id number] [place] [address]- 9120 08 Apr, 2011 [facility] [place] [facility] [address] [id number] [place] [address]- 4350 05 Apr, 2011 [facility] [place] [facility] [address] [id number] [place] [address]- 4429 Mar, [facility] [address] [id number] [place] [address]- 5628 Mar, [facility] [place] [facility] [address] [id number] [place] [address]- 8076 Mar, [facility] [place] [facility] [address] [id number] [place] [address]- 3216 17 Mar, 2011 [facility] [place] [facility] [address] [id number] [place] [address]- 8746 Mar, [facility] [place] [facility] [address] [id number] [place] [address]- 3066 Feb, [facility] [place] [facility] [address] [id number] [place] [address]- 3075 Feb, [facility] [place] [facility] [address] [id number] [place] [address]- 9486 Feb, [facility] [place] [facility] [address] [id number] [place] [address]- 7865 Dec, [facility] [place] [facility] [address] [id number] [place] [address]- 0382 Nov, [facility] [place] [facility] [address] [id number] [place] [address]- 0386 Apr, [facility] [place] [facility] [address] [id number] [place] [address]- 5730 20 Apr, 2010 [facility] [place] [facility] [address] [id number] [place] [address] 2544 16 Apr, 2010 [facility] [place] [facility] [address] [id number] [place] [address]- 5905 13 Apr, 2010 [facility] [place] [facility] [address] [id number] [place] [address]- 2916 09 Apr, 2010 [facility] [place] [facility] [address] [id number] [place] [address]- 3098 06 Apr, 2010 [facility] [id number], [place] [address]- 4056 Apr, [facility] [id number], [place] [address]- 0667 Apr, [facility] [address], [place] [address]- 0940 Mar, [facility] [id number], [place] [address]- 9208 Mar, [facility] [address] [facility] [id number], [place] [address]- 8771 Mar, [facility] [id number] [place] [address]- 3842 Mar, [facility] [address]00565100[place], [place] [address]- 5390 Mar, [facility] [address], [place] [address]- 1195 Mar, [facility] [address], [place] [address]- 1529 Mar, [facility] [address], [place] [address]- 1606 Mar, [facility] [address], [place] [address]- 9184 Mar, [facility] [address], [place] [address]- 9524 Mar, IMMUNIZATIONS No Known Immunizations SOCIAL HISTORY Never Assessed REASON FOR VISIT increase Levemir PLAN OF CARE VITAL SIGNS MEDICATIONS Medication Instructions Dosage Frequency Start Date End Date Duration Status Levemir FlexTouch 100 UNIT/ML Subcutaneous BID 25 units 12h Active RESULTS No Results PROCEDURES [...]
--- OUTSIDE RECORDS SUMMARY | 2018-04-22 23:00 | XMS REPORT ---
Author Author CARLOS LARA [facility] Address [address] [place] [address] Care Team Providers Care Pcb Designer Name Role Phone CARLOS LARA Unavailable PROBLEMS Type Condition ICD9-CM Code KDX65-LV Code Onset Dates Condition Status SNOMED Code Problem Severe sleep apnea G47.30 Active 70893571 Problem Iron deficiency anemia, unspecified iron deficiency anemia type D50.9 Active 51578105 Problem Stenosis of carotid artery, unspecified laterality I65.29 Active 74462457 Problem Decreased diffusion capacity R94.2 Active 62206372 Problem Coronary artery disease involving hoh coronary artery of hoh heart, angina presence unspecified I25.10 Active 8116660143269 Problem Generalized osteoarthritis M15.9 Active 520858738 Problem Aortic valve sclerosis I35.8 Active 81106122 Problem Essential hypertension I10 Active 71611224 Problem Renal osteodystrophy N25.0 Active 85551065 Problem Anxiety about health F41.8 Active 846046721 Problem 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 Active 0711443 Problem Type 2 diabetes mellitus with unspecified complications E11.8 Active 62952455 Problem Type 2 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 Active 95052446 Problem Chronic kidney disease, unspecified CKD stage N18.9 Active 025599668 Problem Pain R52 Active 33168519 Problem longterm 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.4 Active 817779025 Problem Acute anxiety F41.9 Active 54085131 Problem Inability to bear weight R26.89 Active 557419115 Problem Type 2 diabetes mellitus with diabetic polyneuropathy E11.42 Active 990083194 Problem Type 2 diabetes mellitus with foot ulcer E11.621 Active 282311751 Problem Type 2 diabetes mellitus with hyperglycemia E11.65 Active 81282477 Problem Slow transit constipation K59.01 Active 55036678 Problem Bladder spasms N32.89 Active 321325196 Problem Chronic kidney disease (CKD), stage 4 (severe) N18.4 Active 836859584 Problem Other chronic pain G89.29 Active 39392949 Problem Diarrhea, unspecified type R19.7 Active 78078056 Problem Mixed hyperlipidemia E78.2 Active 809486506 Problem Trochanteric bursitis of left hip M70.62 Active 043027879466723 Problem Anemia in other chronic diseases classified elsewhere D63.8 Active 752271620 Problem Chronic kidney disease, stage 3 (moderate) N18.3 Active 092210195 Problem Port catheter in place Z95.828 Active 713654079 Problem Transient cerebral ischemia, unspecified type G45.9 Active 531061663 Problem Hypoxemia R09.02 Active 809399869 Problem BMI 50.0-59.9, adult Z68.43 Active 414338336 ALLERGIES No Information ENCOUNTERS Encounter Location Date Diagnosis [address] [address] 14 Jan, 2018 Acute anxiety F41.[address] [address]- [address] 04 Jan, 2018 Inability to bear weight R26.89 [facility] [address] [id number] Dec, Low back pain M54.5 ; Other chronic pain G89.29 and Chronic kidney disease (CKD), stage 4 (severe) N18.4 [facility] [id number] [place] [address] 43978- 2384 Dec, Type 2 diabetes mellitus with hyperglycemia E11.65 [facility] [id number] [place] [address] 66042- 0000 Dec, [facility] [address] [address] Dec, Type 2 diabetes mellitus with hyperglycemia E11.65 ; Essential hypertension I10 ; Generalized osteoarthritis M15.9 ; Mixed hyperlipidemia E78.2 ; Hypoxia R09.02 ; Port catheter in place Z95.828 ; Anemia due to acute blood loss D62 ; Chronic kidney disease, unspecified CKD stage N18.9 and Severe sleep apnea G47.[address] [address]- [address] 14 Dec, 2017 Type 2 diabetes mellitus with hyperglycemia E11.65 [facility] [address] [address] Dec, [facility] [id number] [place] [address] 11225- 4286 Dec, Type 2 diabetes mellitus with hyperglycemia E11.65 [facility] [address] [place] [address] 54150- 4521 Dec, Left leg pain M79.605 [facility] [address] [place] [address] 24956- 6466 Nov, Slow transit constipation K59.01 [facility] [id number] [place] [address] 43454- 8326 Nov, [facility] [address] [id number] Nov, Anemia due to acute blood loss D62 [facility] [id number] [place] [address] 01386- 0531 Nov, [facility] [id number] [place] [address] 59164- 5095 Nov, Bladder spasms N32.89 [facility] [id number] [place] [address] 64345- 4639 Nov, Pain R52 [facility] [address] [id number] Nov, Anemia due to acute blood loss D62 [facility] [address] [place] [address] 80984- 1014 Nov, Pain in right hip M25.551 and Pain in left hip M25.552 [facility] [address] [place] [address] 97883- 8416 Nov, [facility] [id number] [place] [address] 55530- 4164 Nov, [facility] [id number] [place] [address] 67995- 8744 Nov, [facility] [address] [place] [address] 30647- 9356 Nov, [facility] [id number] [place] [address] 71406- 9937 Oct, [facility] [id number] [place] [address] 28492- 6521 Oct, [facility] [address] [id number] Oct, Encounter for examination [facility] Z02.2 ; Chronic kidney disease, unspecified CKD stage N18.9 ; Type 2 diabetes mellitus with unspecified complications E11.8 ; longterm 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.4 ; Essential hypertension I10 ; Hypoxia R09.02 ; Severe sleep apnea G47.30 ; Stenosis of carotid artery, unspecified laterality I65.29 ; Generalized osteoarthritis M15.9 ; Coronary artery disease involving hoh coronary artery of hoh heart, angina presence unspecified I25.10 ; Port catheter in place Z95.828 and Hemorrhoids, unspecified hemorrhoid type K64.9 [facility] [id number] [place] [address] 16416- 6401 Oct, [facility] [id number] [place] [address] 49218- 8183 Oct, [facility] [id number] [place] [address] 35476- 9378 Oct, [facility] [id number] [place] [address] 82261- 3134 Oct, [facility] [address] [place] [address] 72995 -1054 September, BMI 50.0-59.9, adult Z68.43 [facility] [id number] [place] [address] 04534- 5959 September, [facility] [id number] [place] [address] 44691- 9583 September, [facility] [id number] [place] [address] 78895- 4277 Aug, Type 2 diabetes mellitus with foot ulcer E11.621 ; Transient cerebral ischemia, unspecified type G45.9 ; Essential hypertension I10 ; Mixed hyperlipidemia E78.2 and BMI 50.0-59.9, adult Z68.43 [facility] [id number] [place] [address] 60924- 2560 Aug, [facility] [address] 26472- 1393 Jul, Anxiety about health F41.8 and Mixed hyperlipidemia E78.[address] [address]- 9265 Jul, [facility] [address] [address]- 2440 Jun, [address] 98958- 8621 Jun, Type 2 diabetes mellitus with hyperglycemia E11.65 ; Type 2 diabetes mellitus with foot ulcer E11.621 ; Port catheter in place Z95.828 ; 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 ; Contact with and (suspected) exposure to potentially hazardous body fluids Z77.21 and BMI 50.0-59.9, adult Z68.43 [facility] [id number] [place] [address] 89468- 3433 May, [facility] [id number] [place] [address] 79795- 8682 May, Open wound of right great toe, subsequent encounter S91.101D [address] 87163- 1544 May, [facility] [id number] [place] [address] 75837- 5101 Apr, [address] 23006- 8424 Apr, [facility] [address] [place] [address] 88124- 4191 Apr, [facility] [id number] [place] [address] 10705- 8274 Apr, Type 2 diabetes mellitus with diabetic polyneuropathy E11.42 [facility] [id number] [place] [address] 38857- 8485 Apr, Open wound of right great toe, subsequent encounter S91.101D [facility] [id number] [place] [address] 53557- 2800 08 Apr, 2017 Open wound of right great toe, subsequent encounter S91.101D ; Breast pain, left N64.4 ; Breast cancer screening Z12.31 ; Type 2 diabetes mellitus with foot ulcer E11.621 ; Essential hypertension I10 and BMI 50.0-59.9, adult Z68.43 [facility] [id number] [place] [address] 86494- 0248 Mar, Encounter for immunization Z23 [facility] [id number] [place] [address] 45279- 8681 Mar, [facility] [id number] [place] [address] 06089- 1966 Mar, [facility] [id number] [place] [address] 65864- 1153 Mar, Type 2 diabetes mellitus with diabetic polyneuropathy E11.42 ; Type 2 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 ; Type 2 diabetes mellitus with foot ulcer E11.621 ; Essential hypertension I10 ; Hypoxemia R09.02 and Generalized osteoarthritis M15.9 [facility] [id number] [place] [address]- [address] 02 Mar, 2017 Chronic kidney disease, stage 3 (moderate) N18.3 ; Acute cystitis without hematuria N30.00 ; Essential hypertension I10 ; Muscle spasms of neck M62.838 ; Type 2 diabetes mellitus with diabetic polyneuropathy E11.42 and BMI 50.0-59.9, adult Z68.43 [facility] [address] [place] [address] 07304- 6503 Feb, [facility] [address] [place] [address] 24017 -9453 Feb, [facility] [id number] [place] [address] 13067- 3239 Feb, [facility] [id number] [place] [address] 26414- 8247 Feb, [facility] [id number] [place] [address] 68818- 5065 Feb, [facility] [id number] [place] [address] 91505- 4615 Feb, [facility] [id number] [place] [address] 47658- 5130 Feb, Mixed hyperlipidemia E78.2 [facility] [id number] [place] [address] 75267- 0320 Feb, [facility] [id number] [place] [address] 24253- 8370 Jan, [facility] [id number] [place] [address] 96632- 1901 Jan, Generalized osteoarthritis M15.9 [facility] [id number] [place] [address] 72225- 3399 Oct, [facility] [address] [place] [address] 34377- 5473 Jul, [facility] [id number] [place] [address] 08013- 8205 Jul, [facility] [address] [address]- 6384 02 Jul, 2016 Type 2 diabetes mellitus with hyperglycemia E11.65 ; Chronic kidney disease, stage 3 (moderate) N18.3 ; Type 2 diabetes mellitus with foot ulcer E11.621 ; Type 2 diabetes mellitus with diabetic polyneuropathy E11.42 ; Generalized osteoarthritis M15.9 ; Trochanteric bursitis of left hip M70.62 and Tinea pedis of both feet B35.3 [facility] [address] [place] [address] 40360- 0621 13 Jun, 2016 [facility] [id number] [place] [address] 56147- 3549 Apr, [facility] [id number] [place] [address] 92936- 8986 Apr, [facility] [id number] [place] [address] 69678- 5614 Mar, [facility] [id number] [place] [address] 38974- 2803 Feb, Encounter for immunization Z23 [facility] [id number] [place] [address] 16000- 4175 Feb, [facility] [id number] [place] [address] 55548- 1250 Feb, Type 2 diabetes mellitus with hyperglycemia E11.65 ; Encounter for immunization Z23 ; Diarrhea, unspecified type R19.7 ; Essential hypertension I10 ; Mixed hyperlipidemia E78.2 ; Hypoxia R09.02 ; 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 and Type 2 diabetes mellitus with foot ulcer E11.621 [facility] [id number] [place] [address] 04366- 2232 Jan, [facility] [id number] [place] [address] 91954- 4478 Jan, Type 2 diabetes mellitus with hyperglycemia E11.65 and Pneumonia due to infectious organism, unspecified laterality, unspecified part of lung J18.9 [facility] [address] [place] [address] 38688- 7291 Jan, [facility] [id number] [place] [address] 68773- 2047 Jan, [facility] [address] [place] [address] 41758- 4776 Oct, Type 2 diabetes mellitus with hyperglycemia E11.65 ; Generalized osteoarthritis M15.9 and Chronic prescription opiate use Z79.891 [facility] [address] [place] [address] 35633- 8452 September, [facility] [id number] [place] [address] 44511- 8503 Aug, [facility] [id number] [place] [address] 14526- 5146 Aug, [facility] [id number] [place] [address] 26855- 4466 Aug, [facility] [id number] [place] [address] 87008- 5063 Aug, [facility] [id number] [place] [address] 95343- 8900 Jun, [facility] [address] [place] [address] 10352- 9436 Jun, Type 2 diabetes mellitus with hyperglycemia E11.65 ; Mixed hyperlipidemia E78.2 ; Vaginal itching L29.8 ; Neck muscle spasm M62.838 and Skin abrasion T14.8 [facility] [address] [place] [address] 06658- 7347 Apr, [facility] [address] [place] [address] 80364- 1673 Apr, [facility] [address] [place] [address] 95323- 5728 Mar, [facility] [address] [place] [address] 61895- 2187 Feb, [facility] [address] [place] [address] 64500- 3793 Feb, Type 2 diabetes mellitus with hyperglycemia E11.65 ; Type 2 diabetes mellitus with foot ulcer E11.621 ; Type 2 diabetes mellitus with diabetic polyneuropathy E11.42 and Encounter for immunization Z23 [facility] [id number] [place] [address] 92420- 6327 Jan, Hypertension 401.9 ; Uncontrolled type 2 diabetes mellitus 250.02 ; Right shoulder pain 719.41 and Ulcer of heel and midfoot 707.14 [facility] [address] 41064- 9654 Dec, Diabetes with other specified manifestations, type II or unspecified type, not stated as uncontrolled 250.80 ; Ulcer of heel and midfoot 707.14 ; Hypertension 401.9 ; Hip pain, left 719.45 and Acute anxiety 300.00 [facility] [id number] [place] [address] 22458- 0761 Nov, [facility] [address] 04248- 0431 Nov, [facility] [id number] [place] [address] 34464- 2756 September, Anxiety attack 300.01 and Cellulitis 682.9 [facility] [id number] [place] [address] 29771- 4141 September, [facility] [id number] [place] [address] 59754- 1499 September, [facility] [id number] [place] [address] 52760- 1324 September, [facility] [id number] [place] [address] 89492- 2126 Aug, [facility] [address] 98096- 6259 Aug, [facility] [id number] [place] [address] 77999- 8425 Jul, [facility] [address] [place] [address]- 4121 13 Jul, 2014 [facility] [place] [facility] [address] [id number] [place] [address]- 4418 05 Jul, 2014 [facility] [place] [facility] [address] [id number] [place] [address]- 3467 13 May, 2014 [facility] [place] [facility] [address] [id number] [place] [address]- 9990 13 May, 2014 [facility] [place] [facility] [address] [id number] [place] [address]- 6199 Mar, [facility] [place] [facility] [address] [id number] [place] [address]- 6146 Mar, [facility] [place] [facility] [address] [id number] [place] [address]- 2720 Mar, [facility] [place] [facility] [address] [id number] [place] [address]- 3153 Mar, [facility] [place] [facility] [address] [id number] [place] [address]- 2347 Mar, [facility] [place] [facility] [address] [id number] [place] [address]- 0578 Mar, [facility] [place] [facility] [address] [facility] [id number] [place] [address]- 6111 Mar, [facility] [place] [facility] [address] [id number] [place] [address]- 8561 14 Feb, 2014 [facility] [place] [facility] [address] [id number] [place] [address]- 9662 14 Feb, 2014 [facility] [place] [facility] [address] [id number] [place] [address]- 9923 30 Jan, 2014 [facility] [place] [facility] [address] [id number] [place] [address]- 1685 30 Jan, 2014 [facility] [place] [facility] [address] [id number] [place] [address]- 2201 26 Jan, 2014 [facility] [place] [facility] [address] [id number] [place] [address]- 2545 26 Sep, 2013 [facility] [place] [facility] [address] [id number] [place] [address] 2546 25 Sep, 2013 [facility] [place] [facility] [address] [id number] [place] [address] 2540 25 Sep, 2013 [facility] [place] [facility] [address] [id number] [place] [address] 254 25 Sep, 2013 [facility] [place] [facility] [address] [id number] [place] [address] 2548 25 Sep, 2013 [facility] [place] [facility] [address] [id number] [place] [address]- 7311 18 Sep, 2013 [facility] [place] [facility] [address] [id number] [place] [address]- 0594 18 Sep, 2013 [facility] [place] [facility] [address] [id number] [place] [address]- 6858 06 Sep, 2013 [facility] [place] [facility] [address] [id number] [place] [address]- 1231 06 Sep, 2013 [facility] [place] [facility] [address] [id number] [place] [address]- 2548 05 Sep, 2013 [facility] [place] [facility] [address] [id number] [place] [address] 2543 05 Sep, 2013 [facility] [place] [facility] [address] [id number] [place] [address] 2549 05 Sep, 2013 [facility] [place] [facility] [address] [id number] [place] [address] 2542 05 Sep, 2013 [facility] [place] [facility] [address] [id number] [place] [address] 2546 05 Sep, 2013 [facility] [place] [facility] [address] [id number] [place] [address] 2548 05 Sep, 2013 [facility] [place] [facility] [address] [id number] [place] [address]- 5381 Dec, [facility] [place] [facility] [address] [id number] [place] [address]- 9881 Dec, [facility] [place] [facility] [address] [id number] [place] [address]- 9399 Dec, [facility] [place] [facility] [address] [id number] [place] [address]- 4900 Dec, [facility] [place] [facility] [address] [id number] [place] [address]- 3910 Dec, [facility] [place] [facility] [address] [id number] [place] [address]- 8048 Dec, [facility] [place] [facility] [address] [id number] [place] [address]- 3354 Dec, [facility] [place] [facility] [address] [id number] [place] [address]- 3478 Dec, [facility] [place] [facility] [address] [id number] [place] [address]- 3696 Dec, [facility] [place] [facility] [address] [id number] [place] [address]- 9717 Dec, [facility] [place] [facility] [address] [id number] [place] [address]- 7206 Nov, [facility] [place] [facility] [address] [id number] [place] [address]- 5056 Nov, [facility] [place] [facility] [address] [id number] [place] [address]- 9491 Nov, [facility] [place] [facility] [address] [id number] [place] [address]- 7964 Nov, [facility] [place] [facility] [address] [id number] [place] [address]- 1400 Nov, [facility] [place] [facility] [address] [id number] [place] [address]- 9962 Nov, [facility] [place] [facility] [address] [id number] [place] [address]- 0184 30 Oct, 2013 [facility] [place] [facility] [address] [id number] [place] [address]- 1899 Oct, [facility] [place] [facility] [address] [id number] [place] [address]- 2821 Oct, [facility] [place] [facility] [address] [id number] [place] [address]- 4069 Oct, [facility] [place] [facility] [address] [id number] [place] [address]- 0690 Oct, [facility] [place] [facility] [address] [id number] [place] [address]- 8962 Oct, [facility] [place] [facility] [address] [id number] [place] [address]- 0708 Oct, [facility] [place] [facility] [address] [id number] [place] [address]- 5309 Oct, [facility] [place] [facility] [address] [id number] [place] [address]- 9530 Oct, [facility] [place] [facility] [address] [id number] [place] [address]- 7325 Oct, [facility] [place] [facility] [address] [id number] [place] [address]- 7073 Oct, [facility] [place] [facility] [address] [id number] [place] [address]- [address] Oct, [facility] [place] [facility] [address] [id number] [place] [address] September, [facility] [place] [facility] [address] [id number] [place] [address] September, [facility] [place] [facility] [address] [id number] [place] [address] September, [facility] [place] [facility] [address] [id number] [place] [address] Aug, [facility] [place] [facility] [address] [id number] [place] [address] Aug, [facility] [place] [facility] [address] [id number] [place] [address] Jul, [facility] [place] [facility] [address] [id number] [place] [address] Jul, [facility] [place] [facility] [address] [id number] [place] [address] Jul, [facility] [place] [facility] [address] [id number] [place] [address] Jul, [facility] [place] [facility] [address] [id number] [place] [address] Jul, [facility] [place] [facility] [address] [id number] [place] [address] Jul, [facility] [place] [facility] [address] [id number] [place] [address] Jul, [facility] [place] [facility] [address] [id number] [place] [address] Jul, [facility] [place] [facility] [address] [id number] [place] [address] Jul, [facility] [place] [facility] [address] [id number] [place] [address] Jul, [facility] [place] [facility] [address] [id number] [place] [address] Jun, [facility] [place] [facility] [address] [id number] [place] [address] Jun, [facility] [place] [facility] [address] [id number] [place] [address] Jun, [facility] [place] [facility] [address] [id number] [place] [address]- 5524 Jun, [facility] [place] [facility] [address] [id number] [place] [address]82 10 May, 2013 [facility] [address] [id number] [place] [address] 4669 May, [facility] [place] [facility] [address] [id number] [place] [address] 9637 Apr, [facility] [place] [facility] [address] [id number] [place] [address]- [address]39 Apr, [facility] [place] [facility] [address] [id number] [place] [address] 3516 Apr, [facility] [address] [id number] [place] [address] 6132 Apr, [facility] [place] [facility] [address] [id number] [place] [address]- 7042 Apr, [facility] [address] [id number] [place] [address]- 6294 Apr, [facility] [place] [facility] [address] [id number] [place] [address]- 3190 Apr, [facility] [place] [facility] [address] [id number] [place] [address]- 0111 Apr, [facility] [place] [facility] [address] [facility] [id number] [place] [address]- 0616 Mar, [facility] [place] [facility] [address] [id number] [place] [address]- 0678 Mar, [facility] [place] [facility] [address] [id number] [place] [address]- 1084 Mar, [facility] [place] [facility] [address] [id number] [place] [address]- 0342 Mar, [facility] [place] [facility] [address] [id number] [place] [address]- 9202 Mar, [facility] [place] [facility] [address] [facility] [id number] [place] [address]- 7422 Mar, [facility] [place] [facility] [address] [id number] [place] [address]- 0730 30 Feb, 2013 [facility] [place] [facility] [address] [id number] [place] [address]- 9106 30 Feb, 2013 [facility] [place] [facility] [address] [id number] [place] [address]- 4138 18 Feb, 2013 [facility] [place] [facility] [address] [id number] [place] [address]- 4416 18 Feb, 2013 [facility] [place] [facility] [address] [id number] [place] [address]- 2850 Feb, [facility] [place] [facility] [address] [id number] [place] [address]- 4889 14 Feb, 2013 [facility] [place] [facility] [address] [id number] [place] [address]- 2073 04 Feb, 2013 [facility] [place] [facility] [address] [id number] [place] [address]- 4414 27 Jan, 2013 [facility] [place] [facility] [address] [id number] [place] [address]- 1222 26 Jan, 2013 [facility] [place] [facility] [address] [id number] [place] [address]- 8930 19 Jan, 2013 [facility] [place] [facility] [address] [id number] [place] [address]- 0562 05 Jan, 2013 [facility] [place] [facility] [address] [id number] [place] [address]- 9757 Dec, [facility] [place] [facility] [address] [id number] [place] [address]- 3867 Dec, [facility] [place] [facility] [address] [id number] [place] [address]- 9987 Dec, [facility] [place] [facility] [address] [id number] [place] [address]- 2988 Nov, [facility] [place] [facility] [address] [id number] [place] [address]- 5997 Nov, [facility] [place] [facility] [address] [id number] [place] [address]- 1783 16 Nov, 2012 [facility] [place] [facility] [address] [id number] [place] [address]- 3861 Nov, [facility] [place] [facility] [address] [id number] [place] [address]- 4612 Nov, [facility] [place] [facility] [address] [id number] [place] [address]- 4183 Nov, [facility] [place] [facility] [address] [id number] [place] [address]- 1252 Oct, [facility] [place] [facility] [address] [id number] [place] [address]- 6176 Oct, [facility] [place] [facility] [address] [id number] [place] [address]- 3337 Oct, [facility] [place] [facility] [address] [id number] [place] [address]- 0192 Oct, [facility] [place] [facility] [address] [id number] [place] [address]- 7470 Oct, [facility] [place] [facility] [address] [id number] [place] [address]- 9038 Oct, [facility] [place] [facility] [address] [id number] [place] [address]- 7122 September, [facility] [place] [facility] [address] [id number] [place] [address]- 7830 September, [facility] [place] [facility] [address] [id number] [place] [address]- 5655 September, [facility] [place] [facility] [address] [id number] [place] [address]- 4045 September, [facility] [place] [facility] [address] [id number] [place] [address]- 6904 Aug, [facility] [place] [facility] [address] [id number] [place] [address]- 5226 03 Aug, 2012 [facility] [place] [facility] [address] [id number] [place] [address]- 2124 28 Jul, 2012 [facility] [address] [id number] [place] [address]- 4226 21 Jul, 2012 [facility] [address] [id number] [place] [address]- 0325 18 Jul, 2012 [facility] [address] [id number] [place] [address]- 4092 15 Jul, 2012 [facility] [address] [id number] [place] [address]- 4757 13 Jul, 2012 [facility] [address] [id number] [place] [address] 2546 08 Jul, 2012 [facility] [address] [id number] [place] [address]- 3359 20 Jun, 2012 [facility] [address] [id number] [place] [address]- 1434 13 Jun, 2012 [facility] [address] [id number] [place] [address]- 4908 May, [facility] [address] [id number] [place] [address]- 0428 04 May, 2012 [facility] [address] [id number] [place] [address]- 3264 18 Apr, 2012 [facility] [address] [id number] [place] [address]- 3740 18 Apr, 2012 [facility] [address] [id number] [place] [address]- 6652 13 Apr, 2012 [facility] [address] [id number] [place] [address]- 4026 13 Apr, 2012 [facility] [address] [id number] [place] [address] Apr, [facility] [place] [facility] [address] [id number] [place] [address]- 2273 Apr, [facility] [place] [facility] [address] [id number] [place] [address]- 6166 Apr, [facility] [place] [facility] [address] [id number] [place] [address] Apr, [facility] [place] [facility] [address] [id number] [place] [address]- 8814 Apr, [facility] [place] [facility] [address] [id number] [place] [address]- 2890 Apr, [facility] [place] [facility] [address] [id number] [place] [address]- 8179 Apr, [facility] [place] [facility] [address] [id number] [place] [address]- 2104 Apr, [facility] [place] [facility] [address] [id number] [place] [address]- 0726 Apr, [facility] [place] [facility] [address] [id number] [place] [address]- 4187 Apr, [facility] [place] [facility] [address] [id number] [place] [address]- 9231 Apr, [facility] [place] [facility] [address] [id number], [place] [address]- 9752 Apr, [facility] [place] [facility] [address] [id number], [place] [address]- 3278 Mar, [facility] [place] [facility] [address] [id number] [place] [address]- 6559 Mar, [facility] [place] [facility] [address] [id number] [place] [address]- 7406 Mar, [facility] [place] [facility] [address] [id number], [place] [address]- 3343 Mar, [facility] [place] [facility] [address] [id number], [place] [address]- 2547 Mar, [facility] [place] [facility] [address] [id number] [place] [address]- 2869 Mar, [facility] [place] [facility] [address] [facility] [id number] [place] [address]- 1716 Mar, [facility] [place] [facility] [address] [facility] [id number] [place] [address]- 3331 Mar, [facility] [place] [facility] [address] [facility] [id number] [place] [address]- 4695 Mar, [facility] [place] [facility] [address] [facility] [id number] [place] [address], [place] [address]- 4037 Mar, [facility] [place] [facility] [address] [facility] [id number] [place] [address]- 6725 Feb, [facility] [place] [facility] [id number] [place] [address]- 9514 Feb, [facility] [place] [facility] [address] [facility] [id number] [place] [address]- 2762 Feb, [facility] [place] [facility] [address] [id number] [place] [address]- 7400 Feb, [facility] [place] [facility] [address] [id number] [place] [address]- 5029 Feb, [facility] [place] [facility] [address] [facility] [id number], [place] [address]- 6896 Feb, [facility] [place] [facility] [address] [facility] [id number], [place] [address]- 7612 Jan, [facility] [place] [facility] [address] [facility] [id number], [place] [address]- 0155 Dec, [facility] [place] [facility] [address] [facility] [id number], [place] [address]- 5102 Dec, [facility] [place] [facility] [address] [facility] [id number], [place] [address]- 1844 Dec, [facility] [place] [facility] [address] [id number] [place] [address] 2544 Dec, [facility] [place] [facility] [address] [id number] [place] [address]- 7067 Nov, [facility] [place] [facility] [address] [id number] [place] [address]- 2546 Nov, [facility] [place] [facility] [address] [id number] [place] [address]- 0006 Nov, [facility] [place] [facility] [address] [id number] [place] [address]- 6699 Nov, [facility] [place] [facility] [address] [id number] [place] [address]- 1194 Oct, [facility] [place] [facility] [address] [id number] [place] [address]- 4776 Oct, [facility] [place] [facility] [address] [id number] [place] [address]- 0235 Oct, [facility] [place] [facility] [address] [id number] [place] [address]- 1429 Oct, [facility] [place] [facility] [address] [id number] [place] [address]- 5046 Oct, [facility] [place] [facility] [address] [id number] [place] [address]- 3497 September, [facility] [place] [facility] [address] [id number] [place] [address]- 3296 September, [facility] [place] [facility] [address] [id number] [place] [address]- 0895 September, [facility] [place] [facility] [address] [id number] [place] [address]- 5186 September, [facility] [place] [facility] [address] [id number] [place] [address]- 1816 September, [facility] [place] [facility] [address] [id number] [place] [address]- 3778 September, [facility] [address] [id number] [place] [address]- 4248 September, [facility] [place] [facility] [address] [id number] [place] [address]- 8015 September, [facility] [address] [id number] [place] [address]- 3662 Aug, [facility] [place] [facility] [address] [id number] [place] [address]- 9357 Aug, [facility] [address] [id number] [place] [address]- 9834 Aug, [facility] [address] [id number] [place] [address]- 8282 Aug, [facility] [address] [id number] [place] [address]- 0127 Aug, [facility] [place] [facility] [address] [id number] [place] [address]- 7808 Aug, [facility] [address] [id number] [place] [address]- 9230 Aug, [facility] [place] [facility] [address] [id number] [place] [address]- 2302 Aug, [facility] [place] [facility] [address] [id number] [place] [address]- 0261 Aug, [facility] [place] [facility] [address] [id number], [place] [address]- 3913 Aug, [facility] [place] [facility] [address] [id number] [place] [address]- 3397 Aug, [facility] [place] [facility] [address] [id number] [place] [address]- 2069 Aug, [facility] [place] [facility] [address] [id number] [place] [address]- 1546 Jul, [facility] [place] [facility] [address] [id number] [place] [address]- 3435 28 Jul, 2011 [facility] [address] [id number] [place] [address]- 3836 27 Jul, 2011 [facility] [place] [facility] [address] [id number] [place] [address]- 7756 23 Jul, 2011 [facility] [address] [id number] [place] [address] 2546 21 Jul, 2011 [facility] [place] [facility] [address] [id number] [place] [address] 2546 21 Jul, 2011 [facility] [address] [id number] [place] [address]- 7006 14 Jul, 2011 [facility] [place] [facility] [address] [id number] [place] [address]- 2296 13 Jul, 2011 [facility] [address] [id number] [place] [address]- 7756 07 Jul, 2011 [facility] [address] [id number] [place] [address]- 4860 24 Jun, 2011 [facility] [place] [facility] [address] [id number] [place] [address]- 9633 23 Jun, 2011 [facility] [address] [id number] [place] [address]- 8176 23 Jun, 2011 [facility] [place] [facility] [address] [id number] [place] [address] 2546 14 Jun, 2011 [facility] [place] [facility] [address] [id number] [place] [address] 2546 Jun, [facility] [place] [facility] [address] [id number] [place] [address]- 6156 02 Jun, 2011 [facility] [place] [facility] [address] [id number] [place] [address]- 2546 02 Jun, 2011 [facility] [place] [facility] [address] [id number] [place] [address]- 1505 May, [facility] [address] [id number] [place] [address]- 4854 May, [facility] [place] [facility] [address] [id number] [place] [address]- 0480 May, [facility] [place] [facility] [address] [id number] [place] [address]- 1005 May, [facility] [place] [facility] [address] [id number] [place] [address]- 9285 May, [facility] [address] [id number] [place] [address]- 7227 May, [facility] [place] [facility] [address] [id number] [place] [address]- 7936 May, [facility] [place] [facility] [address] [id number] [place] [address]- 0622 Apr, [facility] [place] [facility] [address] [id number] [place] [address]- 1600 30 Apr, 2011 [facility] [place] [facility] [address] [id number] [place] [address]- 5212 Apr, [facility] [place] [facility] [address] [id number] [place] [address]- 2755 Apr, [facility] [place] [facility] [address] [id number] [place] [address]- 0445 Apr, [facility] [place] [facility] [address] [id number], [place] [address]- 9957 Apr, [facility] [place] [facility] [address] [id number] [place] [address]- 5448 13 Apr, 2011 [facility] [place] [facility] [address] [id number] [place] [address]- 9550 08 Apr, 2011 [facility] [place] [facility] [address] [id number] [place] [address]- 7591 05 Apr, 2011 [facility] [place] [facility] [address] [id number] [place] [address]- 1598 Mar, [facility] [address] [id number] [place] [address]- 5476 Mar, [facility] [place] [facility] [address] [id number] [place] [address]- 7806 Mar, [facility] [place] [facility] [address] [id number] [place] [address]- 8766 17 Mar, 2011 [facility] [place] [facility] [address] [id number] [place] [address]- 7304 Mar, [facility] [place] [facility] [address] [id number] [place] [address]- 8969 Feb, [facility] [place] [facility] [address] [id number] [place] [address]- 3488 Feb, [facility] [place] [facility] [address] [id number] [place] [address]- 8592 Feb, [facility] [place] [facility] [address] [id number] [place] [address]- 9638 Dec, [facility] [place] [facility] [address] [id number] [place] [address]- 2854 Nov, [facility] [place] [facility] [address] [id number] [place] [address]- 8281 Apr, [facility] [place] [facility] [address] [id number] [place] [address]- 5676 20 Apr, 2010 [facility] [place] [facility] [address] [id number] [place] [address] 2547 16 Apr, 2010 [facility] [place] [facility] [address] [id number] [place] [address]- 0902 13 Apr, 2010 [facility] [place] [facility] [address] [id number] [place] [address]- 2776 09 Apr, 2010 [facility] [place] [facility] [address] [id number] [place] [address]- 5773 06 Apr, 2010 [facility] [address]00565[place], [place] [address]- 3949 Apr, [facility] [id number], [place] [address]- 1035 Apr, [facility] [id number], [place] [address]- 6431 Mar, [facility] [id number] [place] [address]- 3185 Mar, [facility] [id number], [place] [address]- 1860 Mar, [facility] [id number] [place] [address]- 1399 Mar, [facility] [id number] [place] [address] 955[address]- 4506 Mar, [facility] [id number] [place] [address] 02[address]- 3850 Mar, [facility] [id number] [place] [address] 69448- 8446 Mar, [facility] [address]65[address], [place] [address]- 3362 Mar, [facility] [address]65[address], [place] [address]- 2818 Mar, [facility] [address], [place] [address]- 4676 Mar, IMMUNIZATIONS No Known Immunizations SOCIAL HISTORY Never Assessed REASON FOR VISIT orders for x-ray of left hip, knee and foot PLAN OF CARE VITAL SIGNS MEDICATIONS Medication Instructions Dosage Frequency Start Date End Date Duration Status Gabapentin 100 mg Orally Three times a day 1 capsule 8h 30 days Active RESULTS No Results PROCEDURES [...]
--- OUTSIDE RECORDS SUMMARY | 2018-04-22 23:01 | XMS REPORT ---
Author Author FABRICE DHALIWAL [facility] Address [address] [place] [address] Care Team Providers Care Issue Clerk Name Role Phone FABRICE DHALIWAL Unavailable PROBLEMS Type Condition ICD9-CM Code IXD10-BY Code Onset Dates Condition Status SNOMED Code Problem Iron deficiency anemia, unspecified iron deficiency anemia type D50.9 Active 89610448 Problem Mixed hyperlipidemia E78.2 Active 682446685 Problem Decreased diffusion capacity R94.2 Active 81208210 Problem Severe sleep apnea G47.30 Active 93102285 Problem Stenosis of carotid artery, unspecified laterality I65.29 Active 73423335 Problem Coronary artery disease involving eyak coronary artery of eyak heart, angina presence unspecified I25.10 Active [id number] Problem Generalized osteoarthritis M15.9 Active 081537512 Problem Aortic valve sclerosis I35.8 Active 89096178 Problem Essential hypertension I10 Active 78780986 Problem Transient cerebral ischemia, unspecified type G45.9 Active 164479606 Problem Renal osteodystrophy N25.0 Active 05282453 Problem Anxiety about health F41.8 Active 418016651 Problem 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 Active 8846736 Problem Type 2 diabetes mellitus with unspecified complications E11.8 Active 55439095 Problem assisted 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.4 Active 431515628 Problem Chronic kidney disease, unspecified CKD stage N18.9 Active 568713341 Problem Inability to bear weight R26.89 Active 584575115 Problem Chronic kidney disease (CKD), stage 4 (severe) N18.4 Active 750025206 Problem Type 2 diabetes mellitus with foot ulcer E11.621 Active 627851233 Problem Type 2 diabetes mellitus with hyperglycemia E11.65 Active 37926650 Problem Type 2 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 Active 47496389 Problem Bladder spasms N32.89 Active 706049696 Problem Pain R52 Active 38102645 Problem Other chronic pain G89.29 Active 96498236 Problem Slow transit constipation K59.01 Active 05127810 Problem Chronic kidney disease, stage 3 (moderate) N18.3 Active 426431736 Problem Diarrhea, unspecified type R19.7 Active 34806953 Problem Type 2 diabetes mellitus with diabetic polyneuropathy E11.42 Active 046650920 Problem Anemia in other chronic diseases classified elsewhere D63.8 Active 233868987 Problem BMI 50.0-59.9, adult Z68.43 Active 530101069 Problem Port catheter in place Z95.828 Active 207342903 Problem Trochanteric bursitis of left hip M70.62 Active 250675242740438 Problem Hypoxemia R09.02 Active 015362489 ALLERGIES No Information ENCOUNTERS Encounter Location Date Diagnosis [place] [address] [address] Jan, Inability to bear weight R26.89 [facility] [address] [place] [id number] Dec, Low back pain M54.5 ; Other chronic pain G89.29 and Chronic kidney disease (CKD), stage 4 (severe) N18.4 [place] [address] [address] Dec, Type 2 diabetes mellitus with hyperglycemia E11.65 [place] [address] [address] Dec, [facility] [address] [place] [id number] Dec, Type 2 diabetes mellitus with hyperglycemia E11.65 ; Essential hypertension I10 ; Generalized osteoarthritis M15.9 ; Mixed hyperlipidemia E78.2 ; Hypoxia R09.02 ; Port catheter in place Z95.828 ; Anemia due to acute blood loss D62 ; Chronic kidney disease, unspecified CKD stage N18.9 and Severe sleep apnea G47.30 [place] [address] [address] Dec, Type 2 diabetes mellitus with hyperglycemia E11.65 [place] [address] [address]- [address] Dec, [place] [address] [address] Dec, Type 2 diabetes mellitus with hyperglycemia E11.65 [facility] [address] [place] [id number] [place] [address] 80214- 2186 Dec, Left leg pain M79.605 [facility] [address] [place] [id number] [place] [address] 57963- 8580 Nov, Slow transit constipation K59.01 [facility] [address] [place] [id number] [place] [address] 73918- 1686 Nov, [facility] [address] [place] [id number] Nov, Anemia due to acute blood loss D62 [facility] [address] [place] [id number] [place] [address] 45344- 2524 Nov, [facility] [address] [place] [id number] [place] [address] 57776- 3523 Nov, Bladder spasms N32.89 [facility] [address] [place] [id number] [place] [address] 21126- 5576 Nov, Pain R52 [facility] [address] [place] [id number] Nov, Anemia due to acute blood loss D62 [facility] [id number] [place] [address] 16291- 7352 Nov, Pain in right hip M25.551 and Pain in left hip M25.552 [facility] [address] [address] 9747 Nov, [facility] [address] [place] [id number] [place] [address] 97233- 4668 Nov, [facility] [address] [place] [id number] [place] [address] 87867- 7880 Nov, [facility] [address] [address] 8333 Nov, [facility] [address] [place] [id number] [place] [address] 99751- 0351 Oct, [facility] [address] [place] [id number] [place] [address] 52517- 4969 Oct, [facility] [address] [place] [id number] Oct, Encounter for examination for admission to alf Z02.2 ; Chronic kidney disease, unspecified CKD stage N18.9 ; Type 2 diabetes mellitus with unspecified complications E11.8 ; assisted 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.4 ; Essential hypertension I10 ; Hypoxia R09.02 ; Severe sleep apnea G47.30 ; Stenosis of carotid artery, unspecified laterality I65.29 ; Generalized osteoarthritis M15.9 ; Coronary artery disease involving eyak coronary artery of eyak heart, angina presence unspecified I25.10 ; Port catheter in place Z95.828 and Hemorrhoids, unspecified hemorrhoid type K64.9 [place] [address] [place] [id number] [place] [address] 35432- 3032 Oct, [facility] [address] [place] [id number] [place] [address] 77451- 3468 Oct, [place] [address] [place] [id number] [place] [address] 83554- 8770 Oct, [facility] [address] [place] [id number] [place] [address] 40023- 4833 Oct, [facility] [address] [place] [id number] [place] [address] 93073 -9753 September, BMI 50.0-59.9, adult Z68.43 [facility] [address] [place] [id number] [place] [address] 89159- 2743 September, [facility] [address] [place] [id number] [place] [address] 33091- 5365 September, [facility] [address] [place] [id number] [place] [address] 84100- 6064 Aug, Type 2 diabetes mellitus with foot ulcer E11.621 ; Transient cerebral ischemia, unspecified type G45.9 ; Essential hypertension I10 ; Mixed hyperlipidemia E78.2 and BMI 50.0-59.9, adult Z68.43 [place] [address] [place] [id number] [place] [address] 15025- 8223 17 Aug, 2017 [place] [address] [place] [id number] [place] [address] 08384- 1073 14 Jul, 2017 Anxiety about health F41.8 and Mixed hyperlipidemia E78.2 [place] [address] [place] [id number] [place] [address] 29279- 1228 13 Jul, 2017 [place] [address] [place] [id number] [place] [address] 65827- 8888 Jun, [place] [address] [place] [id number] [place] [address] 37367- 8356 12 Jun, 2017 Type 2 diabetes mellitus with hyperglycemia E11.65 ; Type 2 diabetes mellitus with foot ulcer E11.621 ; Port catheter in place Z95.828 ; 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 ; Contact with and (suspected) exposure to potentially hazardous body fluids Z77.21 and BMI 50.0-59.9, adult Z68.43 [place] [address] [place] [id number] [place] [address] 45656- 4747 30 May, 2017 [place] [address] [place] [id number] [place] [address] 10787- 7568 May, Open wound of right great toe, subsequent encounter S91.101D [place] [address] [place] [id number] [place] [address] 04512- 1046 May, [place] [address] [place] [id number] [place] [address] 98357- 4138 Apr, [place] [address] [place] [id number] [place] [address] 71940- 1702 Apr, [place] [address] [place] [id number] [place] [address] 14519- 9170 Apr, [facility] [place] [id number] [place] [address] 61695- 6330 14 Apr, 2017 Type 2 diabetes mellitus with diabetic polyneuropathy E11.[address] [address]- 3812 13 Apr, 2017 Open wound of right great toe, subsequent encounter S91.101D [address] 54313- 1231 08 Apr, 2017 Open wound of right great toe, subsequent encounter S91.101D ; Breast pain, left N64.4 ; Breast cancer screening Z12.31 ; Type 2 diabetes mellitus with foot ulcer E11.621 ; Essential hypertension I10 and BMI 50.0-59.9, adult Z68.[address] [address]- 6156 29 Mar, 2017 Encounter for immunization Z23 [address] [address]- 9103 Mar, [address] [address]83- 6435 Mar, [address] 28577- 5371 10 Mar, 2017 Type 2 diabetes mellitus with diabetic polyneuropathy E11.42 ; Type 2 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 ; Type 2 diabetes mellitus with foot ulcer E11.621 ; Essential hypertension I10 ; Hypoxemia R09.02 and Generalized osteoarthritis M15.[address] [address]- 0239 02 Mar, 2017 Chronic kidney disease, stage 3 (moderate) N18.3 ; Acute cystitis without hematuria N30.00 ; Essential hypertension I10 ; Muscle spasms of neck M62.838 ; Type 2 diabetes mellitus with diabetic polyneuropathy E11.42 and BMI 50.0-59.9, adult Z68.43 [place] [id number] [place] [address] 99928- 8176 30 Feb, 2017 [facility] [address] [address] 28 Feb, 2017 [facility] [address] [address] 05[address] Feb, [facility] [address] [address]- 8115 Feb, [facility] [address] [address]- 7206 Feb, [facility] [address] [address]- 8835 Feb, [facility] [address] [place] [id number] [place] [address] 07224- 9783 Feb, Mixed hyperlipidemia E78.2 [facility] [address] [address]- 2115 Feb, [facility] [address] [address]- 7005 Jan, [facility] [address] [address]- 7577 14 Jan, 2017 Generalized osteoarthritis M15.9 [facility] [address] [address]- 1346 Oct, [facility] [address] [address]- 4721 Jul, [facility] [address] [address]- 1881 13 Jul, 2016 [facility] [address] [place] [id number] [address]- 4047 02 Jul, 2017 Type 2 diabetes mellitus with hyperglycemia E11.65 ; Chronic kidney disease, stage 3 (moderate) N18.3 ; Type 2 diabetes mellitus with foot ulcer E11.621 ; Type 2 diabetes mellitus with diabetic polyneuropathy E11.42 ; Generalized osteoarthritis M15.9 ; Trochanteric bursitis of left hip M70.62 and Tinea pedis of both feet B35.3 [place] [address] [address]- 7678 13 Jun, 2016 [facility] [address] [place] [id number] [place] [address] 55096- 7563 Apr, [facility] [address] [place] [id number] [place] [address] 49569- 0381 Apr, [place] [address] 07842- 0398 Mar, [place] [address] [place] [id number] [place] [address] 46712- 2200 Feb, Encounter for immunization Z23 [place] [address] [place] [id number] [place] [address] 41933- 5189 Feb, [place] [address] [place] [id number] [place] [address] 94027- 0346 Feb, Type 2 diabetes mellitus with hyperglycemia E11.65 ; Encounter for immunization Z23 ; Diarrhea, unspecified type R19.7 ; Essential hypertension I10 ; Mixed hyperlipidemia E78.2 ; Hypoxia R09.02 ; 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 and Type 2 diabetes mellitus with foot ulcer E11.621 [place] [id number] [place] [address] 21658- 2134 Jan, [place] [id number] [place] [address] 68026- 7445 Jan, Type 2 diabetes mellitus with hyperglycemia E11.65 and Pneumonia due to infectious organism, unspecified laterality, unspecified part of lung J18.9 [place] [id number] [place] [address] 66182- 6371 Jan, [place] [id number] [place] [address] 80885- 0704 16 Jan, 2016 [place] [id number] [place] [address] 54031- 0634 Oct, Type 2 diabetes mellitus with hyperglycemia E11.65 ; Generalized osteoarthritis M15.9 and Chronic prescription opiate use Z79.891 [facility] [address] [place] [id number] [place] [address] 77915- 6148 September, [facility] [address] [place] [id number] [place] [address] 06228- 2844 Aug, [facility] [address] [place] [id number] [place] [address] 29317- 3007 Aug, [facility] [address] [place] [id number] [place] [address] 24567- 0245 Aug, [facility] [address] [place] [id number] [place] [address] 90859- 7299 Aug, [facility] [address] [place] [id number] [place] [address] 23355- 0245 Jun, [facility] [address] [place] [id number] [place] [address] 47102- 9577 Jun, Type 2 diabetes mellitus with hyperglycemia E11.65 ; Mixed hyperlipidemia E78.2 ; Vaginal itching L29.8 ; Neck muscle spasm M62.838 and Skin abrasion T14.8 [facility] [address] [place] [id number] [place] [address] 41663- 6821 Apr, [facility] [address] [place] [id number] [place] [address] 69296- 3731 Apr, [facility] [address] [place] [id number] [place] [address] 49091- 7092 Mar, [facility] [address] [place] [id number] [place] [address] 40638- 1627 Feb, [facility] [address] [place] [id number] [place] [address] 35703- 8248 Feb, Type 2 diabetes mellitus with hyperglycemia E11.65 ; Type 2 diabetes mellitus with foot ulcer E11.621 ; Type 2 diabetes mellitus with diabetic polyneuropathy E11.42 and Encounter for immunization Z23 [facility] [address] [place] [id number] [place] [address] 29552- 4477 Jan, Hypertension 401.9 ; Uncontrolled type 2 diabetes mellitus 250.02 ; Right shoulder pain 719.41 and Ulcer of heel and midfoot 707.14 [facility] [address] [place] [id number] [place] [address] 65020- 5331 Dec, Diabetes with other specified manifestations, type II or unspecified type, not stated as uncontrolled 250.80 ; Ulcer of heel and midfoot 707.14 ; Hypertension 401.9 ; Hip pain, left 719.45 and Acute anxiety 300.00 [facility] [address] [place] [id number] [place] [address] 00883- 4685 Nov, [facility] [address] [place] [id number] [place] [address] 05810- 9798 Nov, [facility] [address] [place] [id number] [place] [address] 70180- 5020 September, Anxiety attack 300.01 and Cellulitis 682.9 [facility] [address] [place] [id number] [place] [address] 81425- 0837 September, [facility] [address] [place] [id number] [place] [address] 39379- 1230 September, [facility] [address] [place] [id number] [place] [address] 66623- 4404 September, [facility] [address] [place] [id number] [place] [address] 83340- 8021 Aug, [facility] [address] [place] [id number] [place] [address] 60643- 7107 Aug, [facility] [address] [place] [id number] [place] [address] 71885- 5554 Jul, [facility] [address] [place] [id number] [place] [address] 55930407- 3875 Jul, [facility] [address] [place] [id number] [place] [address] 636283- 2533 Jul, [facility] [place] [facility] [address] [id number] [place] [address]- 7705 13 May, 2014 [facility] [place] [facility] [address] [id number] [place] [address]- 6651 13 May, 2014 [facility] [place] [facility] [address] [id number] [place] [address]- 5533 Mar, [facility] [place] [facility] [address] [id number] [place] [address]- 1843 Mar, [facility] [place] [facility] [address] [id number] [place] [address]- 6639 Mar, [facility] [place] [facility] [address] [id number] [place] [address]- 0819 Mar, [facility] [place] [facility] [address] [id number] [place] [address]- 1460 Mar, [facility] [place] [facility] [address] [id number] [place] [address]- 9994 Mar, [facility] [place] [facility] [address] [id number] [place] [address]- 0118 Mar, [facility] [place] [facility] [address] [id number] [place] [address]- 7935 14 Feb, 2014 [facility] [place] [facility] [address] [id number] [place] [address]- 6466 14 Feb, 2014 [facility] [place] [facility] [address] [id number] [place] [address]- 9630 30 Jan, 2014 [facility] [place] [facility] [address] [id number] [place] [address]- 7016 30 Jan, 2014 [facility] [place] [facility] [address] [id number] [place] [address]- 9541 26 Jan, 2014 [facility] [place] [facility] [address] [id number] [place] [address]- 8593 26 Jan, 2014 [facility] [place] [facility] [address] [id number] [place] [address]- 1679 25 Sep, 2013 [facility] [place] [facility] [address] [id number] [place] [address] 2546 25 Sep, 2013 [facility] [place] [facility] [address] [id number] [place] [address]- 2026 25 Sep, 2013 [facility] [place] [facility] [address] [id number] [place] [address]- 8036 25 Sep, 2013 [facility] [place] [facility] [address] [id number] [place] [address]- 1220 18 Sep, 2013 [facility] [place] [facility] [address] [id number] [place] [address]- 1035 18 Sep, 2013 [facility] [place] [facility] [address] [id number] [place] [address]- 6819 06 Sep, 2013 [facility] [place] [facility] [address] [id number] [place] [address]- 4254 06 Sep, 2013 [facility] [place] [facility] [address] [id number] [address]- 6517 05 Sep, 2013 [facility] [place] [facility] [address] [id number] [place] [address]- 3339 05 Sep, 2013 [facility] [place] [facility] [address] [id number] [place] [address]- 9879 05 Sep, 2013 [facility] [place] [facility] [address] [id number] [address]- 2126 05 Sep, 2013 [facility] [place] [facility] [address] [id number] [address] 2545 05 Sep, 2013 [facility] [place] [facility] [address] [id number] [place] [address] 2548 05 Sep, 2013 [facility] [place] [facility] [address] [id number] [address]- 2511 Dec, [facility] [place] [facility] [address] [id number] [address]- 4594 Dec, [facility] [place] [facility] [address] [id number] [place] [address]- 7169 Dec, [facility] [place] [facility] [address] [id number] [place] [address]- 7117 Dec, [facility] [place] [facility] [address] [id number] [place] [address]- 8541 Dec, [facility] [place] [facility] [address] [id number] [place] [address]- 4019 Dec, [facility] [place] [facility] [address] [id number] [place] [address]- 1480 Dec, [facility] [place] [facility] [address] [id number] [place] [address]- 9678 Dec, [facility] [place] [facility] [address] [id number] [place] [address]- 1080 Dec, [facility] [place] [facility] [address] [id number] [place] [address]- 2912 Dec, [facility] [place] [facility] [address] [id number] [place] [address]- 6028 Nov, [facility] [place] [facility] [address] [id number] [place] [address]- 7299 Nov, [facility] [place] [facility] [address] [id number] [place] [address]- 4589 Nov, [facility] [place] [facility] [address] [id number] [place] [address]- 4720 Nov, [facility] [place] [facility] [address] [id number] [place] [address]- 7724 Nov, [facility] [place] [facility] [address] [id number] [place] [address]- 9353 Nov, [facility] [place] [facility] [address] [id number] [place] [address]- 0201 Oct, [facility] [place] [facility] [address] [id number] [place] [address]- 3235 Oct, [facility] [place] [facility] [address] [id number] [place] [address]- 9752 Oct, [facility] [place] [facility] [address] [id number] [place] [address]- 5269 Oct, [facility] [place] [facility] [address] [id number] [place] [address]- 0307 Oct, [facility] [place] [facility] [address] [id number] [place] [address]- 0745 Oct, [facility] [place] [facility] [address] [id number] [place] [address]- 8600 Oct, [facility] [place] [facility] [address] [id number] [place] [address]- 4408 Oct, [facility] [place] [facility] [address] [id number] [place] [address]- 7194 Oct, [facility] [place] [facility] [address] [id number] [place] [address]- 9696 Oct, [facility] [place] [facility] [address] [id number] [place] [address] Oct, [facility] [place] [facility] [address] [id number] [place] [address] Oct, [facility] [place] [facility] [address] [id number] [place] [address] September, [facility] [place] [facility] [address] [id number] [place] [address] September, [facility] [place] [facility] [address] [id number] [place] [address] September, [facility] [place] [facility] [address] [id number] [place] [address] Aug, [facility] [place] [facility] [address] [id number] [place] [address] Aug, [facility] [place] [facility] [address] [id number] [place] [address] Jul, [facility] [place] [facility] [address] [id number] [place] [address] Jul, [facility] [place] [facility] [address] [id number] [place] [address] Jul, [facility] [place] [facility] [address] [id number] [place] [address] Jul, [facility] [place] [facility] [address] [id number] [place] [address] Jul, [facility] [place] [facility] [address] [id number] [place] [address] Jul, [facility] [place] [facility] [address] [id number] [place] [address] Jul, [facility] [place] [facility] [address] [id number] [place] [address] Jul, [facility] [place] [facility] [address] [id number] [place] [address] Jul, [facility] [place] [facility] [address] [id number] [place] [address] Jul, [facility] [place] [facility] [address] [id number] [place] [address] Jun, [facility] [place] [facility] [address] [id number] [place] [address] Jun, [facility] [place] [facility] [address] [id number] [place] [address] Jun, [facility] [place] [facility] [address] [id number] [place] [address] Jun, [facility] [place] [facility] [address] [id number] [place] [address] May, [facility] [place] [facility] [address] [id number] [place] [address] May, [facility] [place] [facility] [address] [id number] [place] [address] Apr, [facility] [facility] [address] [id number] [place] [address] Apr, [facility] [place] [facility] [address] [id number] [place] [address] 7610 Apr, [facility] [place] [facility] [address] [id number] [place] [address] 5116 Apr, [facility] [place] [facility] [address] [id number] [place] [address] 8802 Apr, [facility] [place] [facility] [address] [id number] [place] [address]- 9469 Apr, [facility] [place] [facility] [address] [id number] [place] [address] Apr, [facility] [place] [facility] [address] [id number] [place] [address] 3963 Apr, [facility] [place] [facility] [address] [id number] [place] [address] 6070 Mar, [facility] [place] [facility] [address] [id number] [place] [address] 5827 Mar, [facility] [address] [id number] [place] [address] 7678 Mar, [facility] [place] [facility] [address] [id number] [place] [address] 5546 Mar, [facility] [place] [facility] [address] [id number] [place] [address]- 7176 Mar, [facility] [place] [facility] [address] [id number] [place] [address]- 3486 Mar, [facility] [place] [facility] [address] [id number] [place] [address]- 2253 Feb, [facility] [place] [facility] [address] [id number] [place] [address]- 4309 30 Feb, 2013 [facility] [place] [facility] [address] [id number] [place] [address]- 7104 18 Feb, 2013 [facility] [place] [address] [id number] [place] [address]- 1034 18 Feb, 2013 [facility] [place] [facility] [address] [id number] [place] [address]- 8516 14 Feb, 2013 [facility] [place] [facility] [address] [id number] [place] [address]- 3844 14 Feb, 2013 [facility] [address] [id number] [place] [address]- 5270 04 Feb, 2013 [facility] [address] [id number] [place] [address]- 6978 27 Jan, 2013 [facility] [address] [id number] [place] [address]- 0888 26 Jan, 2013 [facility] [address] [id number] [address] 19 Jan, 2013 [facility] [address] [id number] [place] [address]- 0786 05 Jan, 2013 [facility] [place] [facility] [address] [id number] [place] [address]- 4013 Dec, [facility] [address] [id number] [address] 9[address] Dec, [facility] [address] [id number] [address] 2549 Dec, [facility] [address] [id number] [place] [address]- 9182 Nov, [facility] [address] [id number] [address]- [address]88 Nov, [facility] [address] [id number] [place] [address]- 2542 Nov, [facility] [address] [id number] [place] [address]- 0212 Nov, [facility] [address] [id number] [place] [address]- 5607 Nov, [facility] [address] [id number] [place] [address] Nov, [facility] [address] [id number] [place] [address]- 1008 Oct, [facility] [address] [id number] [place] [address]- 8779 Oct, [facility] [address] [id number] [place] [address]- 7257 Oct, [facility] [address] [id number] [place] [address]- 1093 Oct, [facility] [address] [id number] [place] [address]- 9479 Oct, [facility] [address] [id number] [place] [address]- 6434 Oct, [facility] [address] [id number] [place] [address]- 8103 September, [facility] [address] [id number] [place] [address]- 6427 September, [facility] [address] [id number] [place] [address]- 0954 September, [facility] [address] [id number] [place] [address]- 2964 September, [facility] [address] [id number] [place] [address]- 4525 Aug, [facility] [address] [id number] [place] [address]- 9028 Aug, [facility] [address] [id number] [place] [address]- 7885 Jul, [facility] [address] [id number] [place] [address]- 7134 21 Jul, 2012 [facility] [address] [id number] [place] [address]- 3008 18 Jul, 2012 [facility] [address] [id number] [place] [address]- 2337 15 Jul, 2012 [facility] [address] [id number] [place] [address]- 1010 13 Jul, 2012 [facility] [address] [id number] [place] [address]- 7313 08 Jul, 2012 [facility] [address] [id number] [place] [address]- 8897 20 Jun, 2012 [facility] [address] [id number] [place] [address]- 7245 13 Jun, 2012 [facility] [address] [id number] [place] [address]- 1309 17 May, 2012 [facility] [address] [id number] [place] [address]- 6829 May, [facility] [address] [id number] [place] [address]- 1067 18 Apr, 2012 [facility] [address] [id number] [place] [address]- 5043 18 Apr, 2012 [facility] [address] [id number] [place] [address]- 0209 13 Apr, 2012 [facility] [address] [id number] [place] [address]- 3434 13 Apr, 2012 [facility] [address] [id number] [place] [address]- 7706 10 Apr, 2012 [facility] [address] [id number] [place] [address]- 3989 10 Apr, 2012 [facility] [address] [id number] [address]- 9369 Apr, [facility] [address] [id number] [place] [address]- 8479 Apr, [facility] [address] [id number] [place] [address]- 1442 Apr, [facility] [address] [facility] [id number] [place] [address]- 5097 Apr, [facility] [address] [id number] [place] [address]- 3936 Apr, [facility] [address] [id number] [place] [address]- 6506 Apr, [facility] [address] [id number] [place] [address]- 9348 Apr, [facility] [address] [facility] [id number] [place] [address]- 9472 Apr, [facility] [address] [facility] [id number] [place] [address]- 8485 Apr, [facility] [address] [facility] [id number] [place] [address]- 9638 Apr, [facility] [address] [facility] [id number] [place] [address]- 5681 Mar, [facility] [address] [facility] [id number] [address]- 0678 Mar, [facility] [address] [id number] [address]- 2075 Mar, [facility] [address] [id number] [place] [address]- 5355 Mar, [facility] [address] [facility] [id number] [place] [address]- 1404 Mar, [facility] [address] [facility] [id number] [place] [address]- 6291 Mar, [facility] [address] [id number] [place] [address]- 2546 Mar, [facility] [address] [id number] [place] [address]- 9108 Mar, [facility] [address] [id number] [place] [address]- 2546 Mar, [facility] [address] [id number] [place] [address]- 2546 Mar, [facility] [address] [id number] [place] [address]- 7976 Feb, [facility] [address] [id number] [place] [address]- 9996 Feb, [facility] [address] [id number] [place] [address]- 7189 Feb, [facility] [address] [id number] [place] [address]- 4685 Feb, [facility] [address] [id number] [place] [address]- 7677 Feb, [facility] [address] [id number] [place] [address]- 5456 Feb, [facility] [address] [id number] [place] [address]- 1697 Jan, [facility] [address] [id number] [place] [address]- 4962 Dec, [facility] [address] [id number] [place] [address]- 1193 Dec, [facility] [address] [id number] [place] [address]- 0506 Dec, [facility] [address] [id number] [place] [address]- 2546 Dec, [facility] [address] [id number] [place] [address]- 8905 Nov, [facility] [address] [id number] [place] [address]- 9142 Nov, [facility] [address] [id number] [place] [address]- 3889 Nov, [facility] [address] [id number] [place] [address]- 3972 Nov, [facility] [address] [id number] [place] [address]- 9711 Oct, [facility] [address] [id number] [place] [address]- 6620 Oct, [facility] [address] [id number] [place] [address]- 6103 Oct, [facility] [address] [id number] [place] [address]- 2551 Oct, [facility] [address] [id number] [place] [address]- 8152 Oct, [facility] [address] [id number] [place] [address]- 9055 September, [facility] [address] [id number] [place] [address]- 3477 September, [facility] [address] [id number] [place] [address]- 8827 September, [facility] [address] [id number] [place] [address]- 4911 September, [facility] [address] [id number] [place] [address]- 6495 September, [facility] [address] [id number] [place] [address]- 5816 September, [facility] [address] [id number] [place] [address]- 9923 September, [facility] [address] [id number] [place] [address]- 2549 September, [facility] [address] [id number] [place] [address]- 1513 Aug, [facility] [address] [id number] [place] [address]- 9799 Aug, [facility] [address] [id number] [place] [address]- 1298 Aug, [facility] [address] [id number] [place] [address]- 0966 Aug, [facility] [address] [id number] [place] [address]- 5172 18 Aug, 2011 [facility] [address] [id number] [place] [address]- 8429 17 Aug, 2011 [facility] [address] [id number] [place] [address]- 2687 Aug, [facility] [address] [id number] [place] [address]- 0630 Aug, [facility] [address] [id number] [place] [address]- 1409 Aug, [facility] [address] [id number] [place] [address]- 3803 Aug, [facility] [address] [id number] [place] [address]- 3700 Aug, [facility] [address] [id number] [place] [address]- 7945 Aug, [facility] [address] [id number] [place] [address]- 4611 29 Jul, 2011 [facility] [address] [id number] [place] [address]- 6847 Jul, [facility] [address] [id number] [place] [address]- 1997 Jul, [facility] [address] [id number] [place] [address]- 8349 23 Jul, 2011 [facility] [address] [id number] [place] [address]- 8236 Jul, [facility] [address] [id number] [place] [address]- 1986 21 Jul, 2011 [facility] [address] [id number] [place] [address]- 2534 14 Jul, 2011 [facility] [address] [id number] [place] [address]- 4724 13 Jul, 2011 [facility] [facility] [address] [id number] [place] [address]- 8634 Jul, [facility] [facility] [address] [id number] [place] [address]- 1626 24 Jun, 2011 [facility] [facility] [address] [id number] [place] [address]- 7425 Jun, [facility] [place] [facility] [address] [id number] [place] [address]- 4513 Jun, [facility] [facility] [address] [id number] [place] [address]- 7857 14 Jun, 2011 [facility] [address] [id number] [place] [address]- 7515 Jun, [facility] [facility] [address] [id number] [place] [address]- 7772 Jun, [facility] [facility] [address] [id number] [place] [address]- 8132 Jun, [facility] [facility] [address] [id number] [place] [address]- 6006 May, [facility] [place] [facility] [address] [id number] [place] [address]- 4860 May, [facility] [facility] [address] [id number] [place] [address]- 3305 07 May, 2011 [facility] [address] [id number] [place] [address]- 0274 May, [facility] [place] [facility] [address] [id number] [place] [address]- 6008 May, [facility] [address] [id number] [place] [address]- 0466 May, [facility] [facility] [address] [id number] [place] [address]- 6123 May, [facility] [address] [id number] [place] [address]- 1172 Apr, [facility] [place] [facility] [address] [id number] [place] [address]- 7913 Apr, [facility] [address] [id number] [place] [address]- 3419 Apr, [facility] [place] [facility] [address] [id number] [place] [address]- 7936 Apr, [facility] [place] [facility] [address] [id number] [place] [address]- 3613 Apr, [facility] [place] [facility] [address] [id number] [place] [address]- 9518 Apr, [facility] [place] [facility] [address] [id number] [place] [address]- 0659 Apr, [facility] [place] [facility] [address] [id number] [place] [address]- 5667 08 Apr, 2011 [facility] [place] [facility] [address] [id number] [place] [address]- 0177 05 Apr, 2011 [facility] [place] [facility] [address] [id number] [place] [address]- 9077 Mar, [facility] [place] [facility] [address] [id number] [place] [address]- 5995 Mar, [facility] [place] [facility] [address] [id number] [place] [address]- 4232 Mar, [facility] [place] [facility] [address] [id number] [place] [address]- 8086 Mar, [facility] [place] [facility] [address] [id number] [place] [address] 2546 Mar, [facility] [place] [facility] [address] [id number] [place] [address]- 6346 Feb, [facility] [place] [facility] [address] [id number] [place] [address]- 8281 Feb, [facility] [place] [facility] [address] [id number] [place] [address]- 9860 Feb, [facility] [place] [facility] [address] [id number] [place] [address]- 5289 Dec, [facility] [place] [facility] [address] [id number] [place] [address]- 2967 Nov, [facility] [place] [facility] [address] [id number] [place] [address]- 7926 Apr, [facility] [place] [facility] [address] [id number] [place] [address]- 3283 Apr, [facility] [place] [facility] [address] [id number] [place] [address]- 8570 16 Apr, 2010 [facility] [place] [facility] [address] [id number] [place] [address]- 0607 13 Apr, 2010 [facility] [place] [facility] [address] [id number] [place] [address]- 1760 Apr, [facility] [place] [facility] [address] [id number] [place] [address]- 6434 Apr, [facility] [place] [facility] [address] [id number] [place] [address]- 7419 Apr, [facility] [place] [facility] [address] [id number] [place] [address]- 0453 Apr, [facility] [address] [id number] [address] 5985 Mar, [facility] [id number] [address]- 4049 Mar, [facility] [id number] [address]- 6255 Mar, [facility] [id number] [address]- 0895 Mar, [facility] [id number] [address]- 0781 Mar, [facility] [id number] [place] [address]- 9065 Mar, [facility] [id number] [place] [address] 14867- 3747 Mar, [facility] [id number] [address]- 0943 Mar, [facility] [id number] [address]- 7146 Mar, [facility] [id number] [address]- 5245 Mar, IMMUNIZATIONS No Known Immunizations SOCIAL HISTORY Never Assessed REASON FOR VISIT Medication question PLAN OF CARE VITAL SIGNS MEDICATIONS Unknown [...]
--- OUTSIDE RECORDS SUMMARY | 2018-04-22 23:02 | XMS REPORT ---
Author Author CARLOS LARA [facility] Address [address] [place] [address] Care Team Providers Care Metal Bumper Name Role Phone CARLOS LARA Unavailable PROBLEMS Type Condition ICD9-CM Code GSZ42-CI Code Onset Dates Condition Status SNOMED Code Problem Iron deficiency anemia, unspecified iron deficiency anemia type D50.9 Active 67380606 Problem Mixed hyperlipidemia E78.2 Active 073439754 Problem Decreased diffusion capacity R94.2 Active 83385407 Problem Severe sleep apnea G47.30 Active 35061063 Problem Stenosis of carotid artery, unspecified laterality I65.29 Active 45643576 Problem Coronary artery disease involving standing rock coronary artery of standing rock heart, angina presence unspecified I25.10 Active 4748938096571 Problem Generalized osteoarthritis M15.9 Active 834726965 Problem Aortic valve sclerosis I35.8 Active 22275683 Problem Essential hypertension I10 Active 11216047 Problem Transient cerebral ischemia, unspecified type G45.9 Active 802692557 Problem Renal osteodystrophy N25.0 Active 40172269 Problem Anxiety about health F41.8 Active 276532007 Problem 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 Active 1624000 Problem Type 2 diabetes mellitus with unspecified complications E11.8 Active 98883458 Problem jail 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.4 Active 940158356 Problem Chronic kidney disease, unspecified CKD stage N18.9 Active 118584595 Problem Inability to bear weight R26.89 Active 180317688 Problem Chronic kidney disease (CKD), stage 4 (severe) N18.4 Active 072800184 Problem Type 2 diabetes mellitus with foot ulcer E11.621 Active 175462178 Problem Type 2 diabetes mellitus with hyperglycemia E11.65 Active 08939960 Problem Type 2 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 Active 39728769 Problem Bladder spasms N32.89 Active 451328055 Problem Pain R52 Active 92025265 Problem Other chronic pain G89.29 Active 79696350 Problem Slow transit constipation K59.01 Active 20860800 Problem Chronic kidney disease, stage 3 (moderate) N18.3 Active 339523727 Problem Diarrhea, unspecified type R19.7 Active 46355912 Problem Type 2 diabetes mellitus with diabetic polyneuropathy E11.42 Active 118200259 Problem Anemia in other chronic diseases classified elsewhere D63.8 Active 185053813 Problem BMI 50.0-59.9, adult Z68.43 Active 774471540 Problem Port catheter in place Z95.828 Active 533281539 Problem Trochanteric bursitis of left hip M70.62 Active 721008097822397 Problem Hypoxemia R09.02 Active 716546976 ALLERGIES No Information ENCOUNTERS Encounter Location Date Diagnosis [place] [address] [address] Jan, Inability to bear weight R26.89 [facility] [address] [place] [id number] Dec, Low back pain M54.5 ; Other chronic pain G89.29 and Chronic kidney disease (CKD), stage 4 (severe) N18.4 [place] [address] [place] [id number] [place] [address] 87607- 7476 Dec, Type 2 diabetes mellitus with hyperglycemia E11.65 [place] [address] [place] [id number] [place] [address] 58093- 3260 Dec, [facility] [address] [place] [id number] Dec, Type 2 diabetes mellitus with hyperglycemia E11.65 ; Essential hypertension I10 ; Generalized osteoarthritis M15.9 ; Mixed hyperlipidemia E78.2 ; Hypoxia R09.02 ; Port catheter in place Z95.828 ; Anemia due to acute blood loss D62 ; Chronic kidney disease, unspecified CKD stage N18.9 and Severe sleep apnea G47.30 [place] [address] [place] [id number] [place] [address] 41214- 0493 Dec, Type 2 diabetes mellitus with hyperglycemia E11.65 [place] [address] [address]- 1273 Dec, [facility] [id number] [place] [address] 79399- 2392 Dec, Type 2 diabetes mellitus with hyperglycemia E11.65 [facility] [address] [place] [id number] [place] [address] 00447- 4577 Dec, Left leg pain M79.605 [facility] [address] [place] [id number] [place] [address] 81396- 4192 Nov, Slow transit constipation K59.01 [facility] [address] [place] [address] [id number] [place] [address] 18353- 0171 Nov, [facility] [address] [place] [id number] Nov, Anemia due to acute blood loss D62 [facility] [address] [place] [address] [id number] [place] [address] 24314- 9715 Nov, [facility] [address] [place] [address] [id number] [place] [address] 13012- 1230 Nov, Bladder spasms N32.89 [facility] [address] [place] [address] [id number] [place] [address] 42774- 7785 Nov, Pain R52 [facility] [address] [place] [id number] Nov, Anemia due to acute blood loss D62 [facility] [id number] [place] [address] 99192- 1973 Nov, Pain in right hip M25.551 and Pain in left hip M25.552 [facility] [address], [place] [address] 6321 Nov, [facility] [address] [place] [address] [id number] [place] [address] 72172- 2552 Nov, [facility] [id number] [address] 9975 Nov, [facility] [id number] [place] [address] 05965- 1388 Nov, [place] [id number] [place] [address] 51025- 7080 Oct, [facility] [address] [place] [id number] [place] [address] 52672- 2971 Oct, [facility] [address] [place] [id number] Oct, 2017 Encounter for examination for admission to fdc Z02.2 ; Chronic kidney disease, unspecified CKD stage N18.9 ; Type 2 diabetes mellitus with unspecified complications E11.8 ; manager intermediate 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.4 ; Essential hypertension I10 ; Hypoxia R09.02 ; Severe sleep apnea G47.30 ; Stenosis of carotid artery, unspecified laterality I65.29 ; Generalized osteoarthritis M15.9 ; Coronary artery disease involving standing rock coronary artery of standing rock heart, angina presence unspecified I25.10 ; Port catheter in place Z95.828 and Hemorrhoids, unspecified hemorrhoid type K64.9 [place] [address] [place] [id number] [place] [address] 95501- 5588 Oct, [facility] [address] [place] [id number] [place] [address] 98586- 2958 Oct, [place] [address] [place] [id number] [place] [address] 74774- 5626 Oct, [place] [address] [place] [id number] [place] [address] 67364- 6323 Oct, [facility] [address] [place] [address] 98143 -2719 September, BMI 50.0-59.9, adult Z68.43 [facility] [address] [place] [id number] [place] [address] 61760- 7797 September, [facility] [address] [place] [id number] [place] [address] 51172- 9800 September, [facility] [address] [place] [id number] [place] [address] 28793- 3785 Aug, Type 2 diabetes mellitus with foot ulcer E11.621 ; Transient cerebral ischemia, unspecified type G45.9 ; Essential hypertension I10 ; Mixed hyperlipidemia E78.2 and BMI 50.0-59.9, adult Z68.43 [place] [address] [place] [id number] [place] [address] 74414- 1865 17 Aug, 2017 [place] [address] [place] [id number] [place] [address] 11634- 7757 14 Jul, 2017 Anxiety about health F41.8 and Mixed hyperlipidemia E78.2 [place] [address] 86178- 0464 13 Jul, 2017 [place] [address] 78870- 3971 Jun, [place] [address] [place] [id number] [place] [address] 57406- 8043 12 Jun, 2017 Type 2 diabetes mellitus with hyperglycemia E11.65 ; Type 2 diabetes mellitus with foot ulcer E11.621 ; Port catheter in place Z95.828 ; 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 ; Contact with and (suspected) exposure to potentially hazardous body fluids Z77.21 and BMI 50.0-59.9, adult Z68.43 [place] [address] [place] [id number] [place] [address] 98970- 5676 May, [place] [address] [place] [id number] [place] [address] 41771- 3000 May, Open wound of right great toe, subsequent encounter S91.101D [place] [address] [place] [id number] [place] [address] 31886- 3032 May, [place] [address] [place] [id number] [place] [address] 38105- 1213 Apr, [place] [address] 16716- 9009 Apr, [place] [address] [place] [id number] [place] [address] 96710- 1974 Apr, [place] [address] [place] [address] 41861- 0872 14 Apr, 2017 Type 2 diabetes mellitus with diabetic polyneuropathy E11.42 [place] [address] [place] [id number] [place] [address] 41063- 2740 13 Apr, 2017 Open wound of right great toe, subsequent encounter S91.101D [address] 13725- 0903 08 Apr, 2017 Open wound of right great toe, subsequent encounter S91.101D ; Breast pain, left N64.4 ; Breast cancer screening Z12.31 ; Type 2 diabetes mellitus with foot ulcer E11.621 ; Essential hypertension I10 and BMI 50.0-59.9, adult Z68.43 [place] [id number] [place] [address] 30292- 3879 29 Mar, 2017 Encounter for immunization Z23 [place] [id number] [place] [address] 39640- 7764 19 Mar, 2017 [place] [id number] [place] [address] 61722- 3628 13 Mar, 2017 [place] [id number] [place] [address] 19863- 4898 10 Mar, 2017 Type 2 diabetes mellitus with diabetic polyneuropathy E11.42 ; Type 2 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 ; Type 2 diabetes mellitus with foot ulcer E11.621 ; Essential hypertension I10 ; Hypoxemia R09.02 and Generalized osteoarthritis M15.9 [place] [id number] [place] [address] 60739- 7493 02 Mar, 2017 Chronic kidney disease, stage 3 (moderate) N18.3 ; Acute cystitis without hematuria N30.00 ; Essential hypertension I10 ; Muscle spasms of neck M62.838 ; Type 2 diabetes mellitus with diabetic polyneuropathy E11.42 and BMI 50.0-59.9, adult Z68.43 [place] [address] [place] [id number] [place] [address] 65382- 1792 30 Feb, 2017 [facility] [address], [place] [address]18 Feb, [facility] [address] [place] [address] [address]- 5589 Feb, [facility] [address], [place] [address]- 0253 Feb, [facility] [address] [place] [id number] [place] [address] 40038- 6701 Feb, [facility] [address] [place] [id number] [place] [address] 18085- 9816 Feb, [facility] [address] [place] [id number] [place] [address] 71035- 0848 Feb, Mixed hyperlipidemia E78.2 [facility] [address] [address]- 9411 Feb, [facility] [address] [place] [address]- 9988 Jan, [facility] [address], [place] [address]- 9922 Jan, Generalized osteoarthritis M15.9 [facility] [address], [place] [address]- 2654 Oct, [facility] [address], [place] [address]- 0713 Jul, [facility] [address], [place] [address]- 7786 13 Jul, 2016 [facility] [address], [place] [address]- 9973 02 Jul, 2017 Type 2 diabetes mellitus with hyperglycemia E11.65 ; Chronic kidney disease, stage 3 (moderate) N18.3 ; Type 2 diabetes mellitus with foot ulcer E11.621 ; Type 2 diabetes mellitus with diabetic polyneuropathy E11.42 ; Generalized osteoarthritis M15.9 ; Trochanteric bursitis of left hip M70.62 and Tinea pedis of both feet B35.3 [place] [address] [place] [address] 67208- 1683 13 Jun, 2016 [facility] [address] [place] [id number] [place] [address] 70223- 9970 Apr, [facility] [address] [place] [id number] [place] [address] 48041- 5043 Apr, [facility] [address] [place] [id number] [place] [address] 63388- 0474 Mar, [place] [address] [place] [id number] [place] [address] 69714- 0664 Feb, Encounter for immunization Z23 [place] [address] [place] [id number] [place] [address] 20560- 9895 Feb, [place] [address] [place] [id number] [place] [address] 65466- 5759 Feb, Type 2 diabetes mellitus with hyperglycemia E11.65 ; Encounter for immunization Z23 ; Diarrhea, unspecified type R19.7 ; Essential hypertension I10 ; Mixed hyperlipidemia E78.2 ; Hypoxia R09.02 ; 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 and Type 2 diabetes mellitus with foot ulcer E11.621 [place] [address] [place] [address] 16116- 6843 Jan, [place] [address] [place] [id number] [place] [address] 61872- 1641 Jan, Type 2 diabetes mellitus with hyperglycemia E11.65 and Pneumonia due to infectious organism, unspecified laterality, unspecified part of lung J18.9 [place] [address] [place] [address] 90221- 4029 Jan, [place] [address] [place] [id number] [place] [address] 70738- 4940 Jan, [facility] [address] [place] [id number] [place] [address] 33201- 5601 Oct, Type 2 diabetes mellitus with hyperglycemia E11.65 ; Generalized osteoarthritis M15.9 and Chronic prescription opiate use Z79.891 [facility] [address] [place] [address] 00629- 5033 September, [facility] [address] [place] [id number] [place] [address] 92422- 5483 Aug, [facility] [address] [place] [id number] [place] [address] 92770- 4743 Aug, [facility] [address] [place] [id number] [place] [address] 07838- 0173 Aug, [facility] [address] [place] [id number] [place] [address] 90310- 8017 Aug, [facility] [address] [place] [id number] [place] [address] 97315- 5687 Jun, [facility] [address] [place] [id number] [place] [address] 71301- 2529 Jun, Type 2 diabetes mellitus with hyperglycemia E11.65 ; Mixed hyperlipidemia E78.2 ; Vaginal itching L29.8 ; Neck muscle spasm M62.838 and Skin abrasion T14.8 [facility] [address] [place] [address] 62170- 9693 Apr, [facility] [address] [place] [address] [address]- 4879 Apr, [facility] [address] [place] [id number] [place] [address] 66559- 7304 Mar, [facility] [address] [place] [address] 59227- 7008 Feb, [facility] [address] [place] [id number] [place] [address] 20806- 5817 Feb, Type 2 diabetes mellitus with hyperglycemia E11.65 ; Type 2 diabetes mellitus with foot ulcer E11.621 ; Type 2 diabetes mellitus with diabetic polyneuropathy E11.42 and Encounter for immunization Z23 [facility] [address] [address] 7846 Jan, Hypertension 401.9 ; Uncontrolled type 2 diabetes mellitus 250.02 ; Right shoulder pain 719.41 and Ulcer of heel and midfoot 707.14 [facility] [address] [place] [address] [address]- 1227 Dec, Diabetes with other specified manifestations, type II or unspecified type, not stated as uncontrolled 250.80 ; Ulcer of heel and midfoot 707.14 ; Hypertension 401.9 ; Hip pain, left 719.45 and Acute anxiety 300.00 [facility] [address] [place] [id number] [place] [address] 88604- 5155 Nov, [facility] [address] [place] [id number] [place] [address] 92762- 0670 Nov, [facility] [address] [place] [id number] [place] [address] 85269- 5016 September, Anxiety attack 300.01 and Cellulitis 682.9 [facility] [address] [place] [id number] [place] [address] 24443- 9925 September, [facility] [address] [place] [id number] [place] [address] 18575- 2695 September, [facility] [address], [place] [address]- 2272 September, [facility] [address], [place] [address]- 2685 Aug, [facility] [address], [place] [address]- 3611 Aug, [facility] [address] [place] [id number] [place] [address] 84726121- 3512 Jul, [facility] [address] [address]- 7577 Jul, [facility] [address] [place] [address] 11921576- 2301 Jul, [facility] [place] [facility] [address] [id number] [place] [address]- 4803 May, [facility] [place] [facility] [address] [id number] [place] [address]- 2948 May, [facility] [place] [facility] [address] [id number] [place] [address]- 4210 Mar, [facility] [place] [facility] [address] [id number] [place] [address]- 0340 Mar, [facility] [place] [facility] [address] [id number] [place] [address]- 3179 Mar, [facility] [place] [facility] [address] [id number] [place] [address]- 9035 Mar, [facility] [place] [facility] [address] [id number] [place] [address]- 1625 Mar, [facility] [place] [facility] [address] [id number] [place] [address]- 3031 Mar, [facility] [place] [facility] [address] [id number] [place] [address]- 9118 Mar, [facility] [place] [facility] [address] [id number] [place] [address]- 1857 Feb, [facility] [place] [facility] [address] [id number] [place] [address]- 0321 Feb, [facility] [place] [facility] [address] [id number] [place] [address]- 1776 30 Jan, 2014 [facility] [place] [facility] [address] [id number] [place] [address]- 1344 30 Jan, 2014 [facility] [place] [facility] [address] [id number] [place] [address]- 3497 Jan, [facility] [place] [facility] [address] [id number] [place] [address]- 1294 Jan, [facility] [place] [facility] [address] [id number] [place] [address]- 5858 25 Sep, 2013 [facility] [place] [facility] [address] [id number] [place] [address] 2546 25 Sep, 2013 [facility] [place] [facility] [address] [id number] [place] [address] 2546 25 Sep, 2013 [facility] [place] [facility] [address] [id number] [place] [address] 2549 25 Sep, 2013 [facility] [place] [facility] [address] [id number] [place] [address] 254 18 Sep, 2013 [facility] [place] [facility] [address] [id number] [place] [address]- 4848 18 Sep, 2013 [facility] [place] [facility] [address] [id number] [place] [address]- 2358 06 Sep, 2013 [facility] [place] [facility] [address] [id number] [place] [address]- 0944 06 Sep, 2013 [facility] [place] [facility] [address] [id number] [place] [address]- 0166 05 Sep, 2013 [facility] [place] [facility] [address] [id number] [place] [address] 2545 05 Sep, 2013 [facility] [place] [facility] [address] [id number] [place] [address] 2540 05 Sep, 2013 [facility] [place] [facility] [address] [id number] [place] [address] 2540 05 Sep, 2013 [facility] [place] [facility] [address] [id number], [place] [address]- 2543 05 Sep, 2013 [facility] [place] [facility] [address] [id number] [place] [address] 2541 05 Sep, 2013 [facility] [place] [facility] [address] [id number] [place] [address]- 5555 Dec, [facility] [place] [facility] [address] [id number] [place] [address]- 4226 Dec, [facility] [place] [facility] [address] [id number] [place] [address]- 0276 Dec, 2013 [facility] [place] [facility] [address] [id number] [place] [address]- 8894 Dec, [facility] [place] [facility] [address] [id number] [place] [address]- 5684 Dec, [facility] [place] [facility] [address] [id number] [place] [address]- 3037 Dec, 2013 [facility] [place] [facility] [address] [id number] [place] [address]- 4833 Dec, 2013 [facility] [place] [facility] [address] [id number] [place] [address]- 0115 Dec, [facility] [place] [facility] [address] [id number] [place] [address]- 2516 Dec, [facility] [place] [facility] [address] [id number] [place] [address]- 7531 Dec, [facility] [place] [facility] [address] [id number] [place] [address]- 9045 Nov, [facility] [place] [facility] [address] [id number] [place] [address]- 2387 Nov, [facility] [place] [facility] [address] [id number] [place] [address]- 1324 Nov, [facility] [place] [facility] [address] [id number] [place] [address]- 1999 Nov, [facility] [place] [facility] [address] [id number] [place] [address]- 7389 Nov, [facility] [place] [facility] [address] [id number] [place] [address]- 9097 Nov, [facility] [place] [facility] [address] [id number] [place] [address]- 0744 Oct, [facility] [place] [facility] [address] [id number] [place]- 7731 Oct, [facility] [place] [facility] [address] [id number] [place] [address]- 3597 Oct, [facility] [place] [facility] [address] [id number] [place] [address]- 0191 Oct, [facility] [place] [facility] [address] [id number] [place] [address]- 2738 Oct, [facility] [place] [facility] [address] [id number] [place] [address]- 6355 Oct, [facility] [place] [facility] [address] [id number] [place] [address] Oct, [facility] [place] [facility] [address] [id number] [place] [address] Oct, [facility] [place] [facility] [address] [id number] [place] [address] Oct, [facility] [place] [facility] [address] [id number] [place] [address] Oct, [facility] [place] [facility] [address] [id number] [place] [address] Oct, [facility] [place] [facility] [address] [id number] [place] [address] Oct, [facility] [place] [facility] [address] [id number] [place] [address] September, [facility] [place] [facility] [address] [id number] [place] [address] September, [facility] [place] [facility] [address] [id number] [place] [address] September, [facility] [place] [facility] [address] [id number] [place] [address] Aug, [facility] [place] [facility] [address] [id number] [place] [address] Aug, [facility] [place] [facility] [address] [id number] [place] [address] 13 Jul, 2013 [facility] [place] [facility] [address] [id number] [place] [address] Jul, [facility] [place] [facility] [address] [id number] [place] [address] Jul, [facility] [place] [facility] [address] [id number] [place] [address] Jul, [facility] [place] [facility] [address] [id number] [place] [address] Jul, [facility] [place] [facility] [address] [id number] [place] [address] Jul, [facility] [place] [facility] [address] [id number] [place] [address] Jul, [facility] [place] [facility] [address] [id number] [place] [address] Jul, [facility] [place] [facility] [address] [id number] [place] [address] Jul, [facility] [place] [facility] [address] [id number] [place] [address] Jul, [facility] [place] [facility] [address] [id number] [place] [address] Jun, [facility] [place] [facility] [address] [id number] [place] [address] Jun, [facility] [place] [facility] [address] [id number] [place] [address] Jun, [facility] [place] [facility] [address] [id number] [place] [address] Jun, [facility] [place] [facility] [address] [id number] [place] [address] May, [facility] [place] [facility] [address] [id number] [place] [address] May, [facility] [place] [facility] [address] [id number] [place] [address] Apr, [facility] [facility] [address] [id number] [place] [address] Apr, [facility] [address] [id number] [place] [address] Apr, [facility] [place] [facility] [address] [id number] [place] [address] Apr, [facility] [address] [id number] [place] [address] 92[address] Apr, [facility] [address] [id number] [place] [address] Apr, [facility] [address] [id number] [place] [address] Apr, [facility] [address] [id number] [place] [address]- 7715 Apr, [facility] [address] [id number] [place] [address] 1636 Mar, [facility] [address] [id number] [place] [address] 7770 Mar, [facility] [place] [facility] [address] [id number] [place] [address] 1627 Mar, [facility] [place] [facility] [address] [id number], [place] [address] Mar, [facility] [place] [facility] [address] [id number] [place] [address] 0974 Mar, [facility] [place] [facility] [address] [id number] [place] [address] 6476 Mar, [facility] [place] [facility] [address] [id number] [place] [address] 1064 Feb, [facility] [place] [facility] [address] [id number], [place] [address] 30 Feb, 2013 [facility] [place] [facility] [address] [id number] [place] [address]- 3961 18 Feb, 2013 [facility] [place] [facility] [address] [id number] [place] [address]- 4251 18 Feb, 2013 [facility] [place] [facility] [address] [id number] [place] [address]- 9315 14 Feb, 2013 [facility] [place] [facility] [address] [id number] [place] [address]- 0736 14 Feb, 2013 [facility] [place] [facility] [address] [id number] [place] [address] 04 Feb, 2013 [facility] [place] [facility] [address] [id number] [place] [address]- 7319 27 Jan, 2013 [facility] [place] [facility] [address] [id number] [place] [address]- 4624 26 Jan, 2013 [facility] [place] [facility] [address] [id number] [place] [address]- 9157 19 Jan, 2013 [facility] [place] [facility] [address] [id number] [place] [address]- 1146 05 Jan, 2013 [facility] [place] [facility] [address] [id number] [place] [address]- 2157 Dec, [facility] [place] [facility] [address] [id number] [place] [address]- 5758 Dec, [facility] [place] [facility] [address] [id number] [place] [address]- 6969 Dec, [facility] [place] [facility] [address] [id number] [place] [address]- 2469 Nov, [facility] [place] [facility] [address] [id number] [place] [address]- 2140 Nov, [facility] [place] [facility] [address] [id number] [place] [address]- 8820 Nov, [facility] [place] [facility] [address] [id number] [place] [address] 0369 10 Nov, 2012 [facility] [address] [id number] [place] [address] 2796 Nov, [facility] [address] [id number] [place] [address]- 6616 Nov, [facility] [address] [id number] [place] [address]- 0354 Oct, [facility] [address] [id number] [place] [address] 6521 Oct, [facility] [address] [id number] [place] [address]- 9891 Oct, [facility] [address] [id number] [place] [address]- 1048 Oct, [facility] [address] [id number] [place] [address]- 4545 Oct, [facility] [address] [id number] [place] [address] 7018 Oct, [facility] [address] [id number] [place] [address]- 8810 September, [facility] [address] [id number] [place] [address]- 8707 September, [facility] [address] [id number] [place] [address]- 7587 September, [facility] [address] [id number] [place] [address]- 4478 September, [facility] [address] [id number] [place] [address]- 8014 Aug, [facility] [address] [id number] [place] [address]- 3336 Aug, [facility] [address] [id number] [place] [address]- 5561 Jul, [facility] [address] [id number] [place] [address]- 5660 21 Jul, 2012 [facility] [place] [facility] [address] [id number] [place] [address]- 1581 18 Jul, 2012 [facility] [place] [facility] [address] [id number] [place] [address]- 0810 15 Jul, 2012 [facility] [place] [facility] [address] [id number] [place] [address]- 2723 13 Jul, 2012 [facility] [address] [id number] [place] [address]- 3725 08 Jul, 2012 [facility] [place] [facility] [address] [id number] [place] [address]- 2663 20 Jun, 2012 [facility] [place] [facility] [address] [id number] [place] [address]- 5790 13 Jun, 2012 [facility] [place] [facility] [address] [id number] [place] [address]- 1423 17 May, 2012 [facility] [address] [id number] [place] [address]- 9178 04 May, 2012 [facility] [address] [id number] [place] [address]- 4964 18 Apr, 2012 [facility] [place] [facility] [address] [id number] [place] [address]- 7606 18 Apr, 2012 [facility] [place] [facility] [address] [id number] [place] [address]- 1429 13 Apr, 2012 [facility] [place] [facility] [address] [id number] [place] [address]- 1862 13 Apr, 2012 [facility] [place] [facility] [address] [id number] [place] [address]- 6979 10 Apr, 2012 [facility] [place] [facility] [address] [id number] [place] [address]- 9760 10 Apr, 2012 [facility] [place] [facility] [address] [id number] [place] [address] 07 Apr, 2012 [facility] [place] [facility] [address] [id number] [place] [address]- 2672 Apr, [facility] [place] [facility] [address] [id number] [place] [address] Apr, [facility] [place] [facility] [address] [id number] [place] [address]- 9066 Apr, [facility] [place] [facility] [address] [id number] [place] [address]- 1246 Apr, [facility] [place] [facility] [address] [id number] [place] [address]- 2233 Apr, [facility] [place] [facility] [address] [id number] [place] [address]- 1043 Apr, [facility] [place] [facility] [address] [id number] [place] [address]- 5184 Apr, [facility] [place] [facility] [address] [id number] [place] [address]- 7142 Apr, [facility] [place] [facility] [address] [id number] [place] [address]- 8467 Apr, [facility] [place] [facility] [address] [id number] [place] [address]- 9304 Mar, [facility] [place] [facility] [address] [id number] [place] [address]- 3845 Mar, [facility] [place] [facility] [address] [id number], [place] [address] 2948 Mar, [facility] [place] [facility] [address] [id number] [place] [address]- 5382 Mar, [facility] [place] [facility] [address] [id number] [place] [address]- 4943 Mar, [facility] [place] [facility] [address] [id number], [place] [address]- 8791 Mar, [facility] [place] [facility] [address] [id number] [place] [address]- 2544 Mar, [facility] [place] [facility] [address] [id number] [place] [address]- 7993 Mar, [facility] [place] [facility] [address] [id number] [place] [address]- 1506 Mar, [facility] [place] [facility] [address] [id number] [place] [address]- 5059 Mar, [facility] [place] [facility] [address] [id number] [place] [address]- 0327 Feb, [facility] [place] [facility] [address] [id number] [place] [address]- 6026 Feb, [facility] [place] [facility] [address] [id number] [place] [address]- 4168 Feb, [facility] [place] [facility] [address] [id number] [place] [address]- 3428 Feb, [facility] [place] [facility] [address] [id number] [place] [address]- 2298 Feb, [facility] [place] [facility] [address] [id number] [place] [address]- 6950 Feb, [facility] [place] [facility] [address] [id number] [place] [address]- 6629 Jan, [facility] [place] [facility] [address] [id number] [place] [address]- 2979 Dec, [facility] [place] [facility] [address] [id number] [place] [address]- 5543 Dec, [facility] [place] [facility] [address] [id number] [place] [address]- 1058 Dec, [facility] [place] [facility] [address] [id number] [place] [address]- 2543 Dec, [facility] [place] [facility] [address] [id number] [place] [address]- 0036 Nov, [facility] [place] [facility] [address] [id number] [place] [address]- 8596 Nov, [facility] [place] [facility] [address] [id number] [place] [address]- 0006 Nov, [facility] [place] [facility] [address] [id number] [place] [address]- 6374 Nov, [facility] [place] [facility] [address] [id number] [place] [address]- 5710 Oct, [facility] [place] [facility] [address] [id number] [place] [address]- 0588 Oct, [facility] [place] [facility] [address] [id number] [place] [address]- 6073 Oct, [facility] [place] [facility] [address] [id number] [place] [address]- 6900 Oct, [facility] [place] [facility] [address] [id number] [place] [address]- 6427 Oct, [facility] [place] [facility] [address] [id number] [place] [address]- 3843 September, [facility] [place] [facility] [address] [id number] [place] [address]- 9995 September, [facility] [place] [facility] [address] [id number] [place] [address]- 1072 September, [facility] [place] [facility] [address] [id number] [place] [address]- 2402 September, [facility] [place] [facility] [address] [id number] [place] [address]- 8752 September, [facility] [place] [facility] [address] [id number] [place] [address]- 2295 September, [facility] [place] [facility] [address] [id number] [place] [address]- 1776 September, [facility] [place] [facility] [address] [id number] [place] [address]- 8359 September, [facility] [address] [id number] [place] [address]- 8445 Aug, [facility] [address] [id number] [place] [address]- 9689 Aug, [facility] [address] [id number] [place] [address]- 0820 Aug, [facility] [address] [id number] [place] [address]- 9986 Aug, [facility] [address] [id number] [place] [address]- 6375 18 Aug, 2011 [facility] [address] [id number] [place] [address]- 2072 17 Aug, 2011 [facility] [address] [id number] [place] [address]- 0143 Aug, [facility] [address] [id number] [place] [address]- 4692 Aug, [facility] [address] [id number] [place] [address]- 2626 Aug, [facility] [address] [id number] [place] [address]- 0256 Aug, [facility] [address] [id number] [place] [address]- 3854 Aug, [facility] [address] [id number] [place] [address]- 5993 Aug, [facility] [address] [id number] [place] [address]- 0092 29 Jul, 2011 [facility] [address] [id number] [place] [address]- 0897 Jul, [facility] [address] [id number] [place] [address]- 0398 Jul, [facility] [place] [facility] [address] [id number] [place] [address]- 1425 23 Jul, 2011 [facility] [place] [facility] [address] [id number] [place] [address]- 3046 Jul, [facility] [place] [facility] [address] [id number] [place] [address]- 6876 21 Jul, 2011 [facility] [place] [facility] [address] [id number] [place] [address]- 2296 14 Jul, 2011 [facility] [place] [facility] [address] [id number] [place] [address]- 3640 13 Jul, 2011 [facility] [place] [facility] [address] [id number] [place] [address]- 1016 07 Jul, 2011 [facility] [place] [facility] [address] [id number] [place] [address]- 4088 24 Jun, 2011 [facility] [place] [facility] [address] [id number] [place] [address]- 1053 Jun, [facility] [place] [facility] [address] [id number] [place] [address]- 0467 Jun, [facility] [place] [facility] [address] [id number] [place] [address]- 4242 14 Jun, 2011 [facility] [place] [facility] [address] [id number] [place] [address]- 9446 Jun, [facility] [place] [facility] [address] [id number] [place] [address]- 1806 Jun, [facility] [place] [facility] [address] [id number] [place] [address]- 4836 Jun, [facility] [place] [facility] [address] [id number] [place] [address]- 5236 May, [facility] [place] [facility] [address] [id number] [place] [address]- 9236 May, [facility] [place] [facility] [address] [id number] [place] [address]- 8033 May, [facility] [address] [id number] [place] [address]- 6428 May, [facility] [address] [id number] [place] [address]- 7196 May, [facility] [address] [id number] [place] [address]- 0906 May, [facility] [address] [id number] [place] [address]- 9413 May, [facility] [address] [id number] [place] [address]- 3158 Apr, [facility] [address] [id number] [place] [address]- 7200 Apr, [facility] [address] [id number] [place] [address]- 7824 Apr, [facility] [address] [id number] [place] [address]- 7063 Apr, [facility] [address] [id number] [place] [address]- 1886 Apr, [facility] [address] [id number] [place] [address]- 8823 Apr, [facility] [address] [id number] [place] [address]- 6193 Apr, [facility] [address] [id number] [place] [address]- 3868 Apr, [facility] [address] [id number] [place] [address]- 5105 05 Apr, 2011 [facility] [address] [id number] [place] [address]- 2739 Mar, [facility] [address] [id number] [place] [address]- 8875 Mar, [facility] [address] [id number] [place] [address]- 6682 Mar, [facility] [place] [facility] [address] [id number] [place] [address]- 0716 Mar, [facility] [place] [facility] [address] [id number] [place] [address] 2542 Mar, [facility] [place] [facility] [address] [id number] [place] [address]- 4636 Feb, [facility] [place] [facility] [address] [id number] [place] [address]- 6832 Feb, [facility] [place] [facility] [address] [id number] [place] [address]- 0942 Feb, [facility] [place] [facility] [address] [id number] [place] [address]- 5887 Dec, [facility] [place] [facility] [address] [id number] [place] [address]- 9762 Nov, [facility] [place] [facility] [address] [id number] [place] [address]- 5730 Apr, [facility] [place] [facility] [address] [id number] [place]662 Apr, [facility] [place] [facility] [address] [id number] [place] [address]- 8507 16 Apr, 2010 [facility] [place] [facility] [address] [id number], [place] [address]- 9209 13 Apr, 2010 [facility] [place] [facility] [address] [id number] [place] [address]- 9248 Apr, [facility] [place] [facility] [address] [id number] [place] [address]- 0750 Apr, [facility] [place] [facility] [address] [id number] [place] [address]- 6771 Apr, [facility] [place] [facility] [address] [id number], [place] [address]- 1164 Apr, [facility] [id number], [place] [address]- 8358 Mar, [facility] [id number], [place] [address]- 6611 Mar, [facility] [id number], [place] [address]- 7832 Mar, [facility] [id number], [place] [address]- 3944 Mar, [facility] [id number] [place] [address]- 6169 Mar, [facility] [id number] [place] [address] 639[address]- 0059 Mar, [facility] [id number] [place] [address] 290[address]- 3272 Mar, [facility] [id number], [place] [address]- 9988 Mar, [facility] [id number], [place] [address]- 7739 Mar, [facility] [id number], [place] [address]- 6259 Mar, IMMUNIZATIONS No Known Immunizations SOCIAL HISTORY Never Assessed REASON FOR VISIT Add Lactulose Spoke with pt about hospice PLAN OF CARE VITAL SIGNS MEDICATIONS Medication Instructions Dosage Frequency Start Date End Date Duration Status Lactulose 10 GM/15ML Orally twice a day [...]
--- OUTSIDE RECORDS SUMMARY | 2018-04-22 23:03 | XMS REPORT ---
Author Author CARLOS LARA [facility] Address [address] [place] [address] Care Team Providers Care Elevator Repairer Name Role Phone CARLOS LARA Unavailable PROBLEMS Type Condition ICD9-CM Code DZR70-WG Code Onset Dates Condition Status SNOMED Code Problem Iron deficiency anemia, unspecified iron deficiency anemia type D50.9 Active 84839754 Problem Mixed hyperlipidemia E78.2 Active 305875760 Problem Decreased diffusion capacity R94.2 Active 52242237 Problem Severe sleep apnea G47.30 Active 35226776 Problem Stenosis of carotid artery, unspecified laterality I65.29 Active 29252298 Problem Coronary artery disease involving [place] coronary artery of [place] heart, angina presence unspecified I25.10 Active [id number] Problem Generalized osteoarthritis M15.9 Active 796038521 Problem Aortic valve sclerosis I35.8 Active 61795681 Problem Essential hypertension I10 Active 09318198 Problem Transient cerebral ischemia, unspecified type G45.9 Active 091474543 Problem Renal osteodystrophy N25.0 Active 03480199 Problem Anxiety about health F41.8 Active 094008025 Problem 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 Active 1443055 Problem Type 2 diabetes mellitus with unspecified complications E11.8 Active 87697386 Problem FDC 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.4 Active 070817959 Problem Chronic kidney disease, unspecified CKD stage N18.9 Active 120306167 Problem Inability to bear weight R26.89 Active 846316373 Problem Chronic kidney disease (CKD), stage 4 (severe) N18.4 Active 767010872 Problem Type 2 diabetes mellitus with foot ulcer E11.621 Active 188343278 Problem Type 2 diabetes mellitus with hyperglycemia E11.65 Active 30396854 Problem Type 2 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 Active 90117559 Problem Bladder spasms N32.89 Active 015327311 Problem Pain R52 Active 28393825 Problem Other chronic pain G89.29 Active 62912839 Problem Slow transit constipation K59.01 Active 65573875 Problem Chronic kidney disease, stage 3 (moderate) N18.3 Active 607078205 Problem Diarrhea, unspecified type R19.7 Active 55769162 Problem Type 2 diabetes mellitus with diabetic polyneuropathy E11.42 Active 056886408 Problem Anemia in other chronic diseases classified elsewhere D63.8 Active 368377275 Problem BMI 50.0-59.9, adult Z68.43 Active 874716204 Problem Port catheter in place Z95.828 Active 632236503 Problem Trochanteric bursitis of left hip M70.62 Active [id number] Problem Hypoxemia R09.02 Active 243574913 ALLERGIES No Information ENCOUNTERS Encounter Location Date Diagnosis [place] [address] [address] Jan, Inability to bear weight R26.89 [facility] [address] [place] [id number] Dec, Low back pain M54.5 ; Other chronic pain G89.29 and Chronic kidney disease (CKD), stage 4 (severe) N18.4 [place] [address] [place] [id number] [place] [address] 15376- 4357 Dec, Type 2 diabetes mellitus with hyperglycemia E11.65 [place] [address] [place] [id number] [place] [address] 36228- 9316 Dec, [facility] [address] [place] [id number] Dec, Type 2 diabetes mellitus with hyperglycemia E11.65 ; Essential hypertension I10 ; Generalized osteoarthritis M15.9 ; Mixed hyperlipidemia E78.2 ; Hypoxia R09.02 ; Port catheter in place Z95.828 ; Anemia due to acute blood loss D62 ; Chronic kidney disease, unspecified CKD stage N18.9 and Severe sleep apnea G47.30 [place] [address] [place] [id number] [place] [address] 19584- 9873 Dec, Type 2 diabetes mellitus with hyperglycemia E11.65 [place] [address] 08803- 1171 Dec, [facility] [id number] [place] [address] 80720- 9587 Dec, Type 2 diabetes mellitus with hyperglycemia E11.65 [facility] [address] [place] [id number] [place] [address] 71558- 9037 Dec, Left leg pain M79.605 [facility] [address] [place] [id number] [place] [address] 45678- 2767 Nov, Slow transit constipation K59.01 [facility] [address] [place] [id number] [place] [address] 82477- 4136 Nov, [facility] [address] [place] [id number] Nov, Anemia due to acute blood loss D62 [facility] [address] [place] [id number] [place] [address] 84584- 6016 Nov, [facility] [address] [place] [id number] [place] [address] 02917- 9946 Nov, Bladder spasms N32.89 [facility] [address] [place] [id number] [place] [address] 71915- 3027 Nov, Pain R52 [facility] [address] [place] [id number] Nov, Anemia due to acute blood loss D62 [facility] [id number] [place] [address] 08551- 6919 Nov, Pain in right hip M25.551 and Pain in left hip M25.552 [facility] [address] [address] 4054 Nov, [facility] [address] [place] [id number] [place] [address] 59344- 6529 Nov, [facility] [id number] [address]- 6154 Nov, [facility] [id number] [place] [address] 86569- 3449 Nov, [place] [id number] [place] [address] 22115- 1348 Oct, [facility] [address] [place] [id number] [place] [address] 14637- 0279 Oct, [facility] [address] [place] [id number] Oct, 2017 Encounter for examination for admission to care home Z02.2 ; Chronic kidney disease, unspecified CKD stage N18.9 ; Type 2 diabetes mellitus with unspecified complications E11.8 ; 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 ; Essential hypertension I10 ; Hypoxia R09.02 ; Severe sleep apnea G47.30 ; Stenosis of carotid artery, unspecified laterality I65.29 ; Generalized osteoarthritis M15.9 ; Coronary artery disease involving [place] coronary artery of [place] heart, angina presence unspecified I25.10 ; Port catheter in place Z95.828 and Hemorrhoids, unspecified hemorrhoid type K64.9 [place] [address] [place] [id number] [place] [address] 76612- 6872 Oct, [facility] [address] [place] [id number] [place] [address] 09444- 5388 Oct, [place] [address] [place] [id number] [place] [address] 34815- 9877 Oct, [place] [address] [place] [id number] [place] [address] 78052- 0391 Oct, [facility] [id number] [place] [address] 51970 -4843 September, BMI 50.0-59.9, adult Z68.43 [facility] [address] [place] [id number] [place] [address] 46783- 3491 September, [facility] [address] [place] [id number] [place] [address] 09470- 3021 September, [facility] [address] [place] [id number] [place] [address] 51949- 9665 Aug, Type 2 diabetes mellitus with foot ulcer E11.621 ; Transient cerebral ischemia, unspecified type G45.9 ; Essential hypertension I10 ; Mixed hyperlipidemia E78.2 and BMI 50.0-59.9, adult Z68.43 [place] [address] [place] [address] [id number] [place] [address] 60563- 2085 17 Aug, 2017 [place] [address] [place] [id number] [place] [address] 43357- 4424 14 Jul, 2017 Anxiety about health F41.8 and Mixed hyperlipidemia E78.2 [place] [address] 27317- 6886 13 Jul, 2017 [place] [address] 15483- 2474 Jun, [place] [address] [place] [id number] [place] [address] 15799- 5815 12 Jun, 2017 Type 2 diabetes mellitus with hyperglycemia E11.65 ; Type 2 diabetes mellitus with foot ulcer E11.621 ; Port catheter in place Z95.828 ; 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 ; Contact with and (suspected) exposure to potentially hazardous body fluids Z77.21 and BMI 50.0-59.9, adult Z68.43 [place] [address] [place] [id number] [place] [address] 09233- 7266 May, [place] [address] [place] [address] [id number] [place] [address] 45615- 8339 May, Open wound of right great toe, subsequent encounter S91.101D [place] [address] [place] [id number] [place] [address] 31421- 6310 May, [place] [address] [place] [address] [id number] [place] [address] 47502- 5106 Apr, [place] [address] 45544- 0753 Apr, [place] [address] [place] [id number] [place] [address] 14839- 0768 Apr, [place] [id number] [place] [address] 22004- 6342 14 Apr, 2017 Type 2 diabetes mellitus with diabetic polyneuropathy E11.42 [place] [address] [place] [address] [id number] [place] [address] 93473- 1793 13 Apr, 2017 Open wound of right great toe, subsequent encounter S91.101D [address] 47008- 7931 08 Apr, 2017 Open wound of right great toe, subsequent encounter S91.101D ; Breast pain, left N64.4 ; Breast cancer screening Z12.31 ; Type 2 diabetes mellitus with foot ulcer E11.621 ; Essential hypertension I10 and BMI 50.0-59.9, adult Z68.43 [place] [id number] [place] [address] 75558- 6494 29 Mar, 2017 Encounter for immunization Z23 [place] [id number] [place] [address] 96331- 6742 19 Mar, 2017 [place] [id number] [place] [address] 38403- 2666 13 Mar, 2017 [place] [id number] [place] [address] 26493- 8440 10 Mar, 2017 Type 2 diabetes mellitus with diabetic polyneuropathy E11.42 ; Type 2 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 ; Type 2 diabetes mellitus with foot ulcer E11.621 ; Essential hypertension I10 ; Hypoxemia R09.02 and Generalized osteoarthritis M15.9 [place] [id number] [place] [address] 03629- 6718 02 Mar, 2017 Chronic kidney disease, stage 3 (moderate) N18.3 ; Acute cystitis without hematuria N30.00 ; Essential hypertension I10 ; Muscle spasms of neck M62.838 ; Type 2 diabetes mellitus with diabetic polyneuropathy E11.42 and BMI 50.0-59.9, adult Z68.43 [place] [address] [place] [id number] [place] [address] 76837- 0239 30 Feb, 2017 [facility] [address] [address] Feb, [facility] [address] [place] [address] [id number] [address]- 5283 Feb, [facility] [address] [address]- 3094 Feb, [facility] [address] [place] [id number] [place] [address] 03709- 7964 Feb, [facility] [address] [place] [id number] [place] [address] 79538- 3315 Feb, [facility] [address] [place] [id number] [place] [address] 77915- 4567 Feb, Mixed hyperlipidemia E78.2 [facility] [address] [place] [address] [id number] [address]- 6945 Feb, [facility] [address] [place] [id number] [address]- 9810 Jan, [facility] [address] [address]- 4597 Jan, Generalized osteoarthritis M15.9 [facility] [address] [address]- 0255 Oct, [facility] [address] [address]- 2071 Jul, [facility] [address] [address]- 1308 13 Jul, 2016 [facility] [address] [address]- 0095 02 Jul, 2017 Type 2 diabetes mellitus with hyperglycemia E11.65 ; Chronic kidney disease, stage 3 (moderate) N18.3 ; Type 2 diabetes mellitus with foot ulcer E11.621 ; Type 2 diabetes mellitus with diabetic polyneuropathy E11.42 ; Generalized osteoarthritis M15.9 ; Trochanteric bursitis of left hip M70.62 and Tinea pedis of both feet B35.3 [place] [id number] [place] [address] 87765- 7835 13 Jun, 2016 [facility] [address] [place] [id number] [place] [address] 57156- 2830 Apr, [facility] [address] [place] [id number] [place] [address] 47593- 3756 Apr, [facility] [address] [place] [id number] [place] [address] 21256- 5947 Mar, [place] [address] [place] [id number] [place] [address] 90439- 9939 Feb, Encounter for immunization Z23 [place] [address] [place] [id number] [place] [address] 55396- 9449 Feb, [place] [address] [place] [id number] [place] [address] 24951- 7033 Feb, Type 2 diabetes mellitus with hyperglycemia E11.65 ; Encounter for immunization Z23 ; Diarrhea, unspecified type R19.7 ; Essential hypertension I10 ; Mixed hyperlipidemia E78.2 ; Hypoxia R09.02 ; 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 and Type 2 diabetes mellitus with foot ulcer E11.621 [place] [id number] [place] [address] 43208- 6595 Jan, [place] [address] [place] [id number] [place] [address] 36950- 1747 Jan, Type 2 diabetes mellitus with hyperglycemia E11.65 and Pneumonia due to infectious organism, unspecified laterality, unspecified part of lung J18.9 [place] [id number] [place] [address] 05784- 0568 Jan, [place] [address] [place] [id number] [place] [address] 95892- 7282 Jan, [facility] [address] [place] [id number] [place] [address] 34519- 6943 Oct, Type 2 diabetes mellitus with hyperglycemia E11.65 ; Generalized osteoarthritis M15.9 and Chronic prescription opiate use Z79.891 [facility] [id number] [place] [address] 60687- 1626 September, [facility] [address] [place] [id number] [place] [address] 85308- 1267 Aug, [facility] [address] [place] [id number] [place] [address] 23547- 3761 Aug, [facility] [address] [place] [id number] [place] [address] 35303- 4231 Aug, [facility] [address] [place] [id number] [place] [address] 03006- 4558 Aug, [facility] [address] [place] [id number] [place] [address] 22785- 7035 Jun, [facility] [address] [place] [id number] [place] [address] 51555- 5077 Jun, Type 2 diabetes mellitus with hyperglycemia E11.65 ; Mixed hyperlipidemia E78.2 ; Vaginal itching L29.8 ; Neck muscle spasm M62.838 and Skin abrasion T14.8 [facility] [id number] [place] [address] 23503- 9135 Apr, [facility] [address] [place] [id number] [address]- 2901 Apr, [facility] [address] [place] [id number] [place] [address] 81297- 2788 Mar, [facility] [id number] [place] [address] 06443- 6287 Feb, [facility] [address] [place] [id number] [place] [address] 68862- 6541 Feb, Type 2 diabetes mellitus with hyperglycemia E11.65 ; Type 2 diabetes mellitus with foot ulcer E11.621 ; Type 2 diabetes mellitus with diabetic polyneuropathy E11.42 and Encounter for immunization Z23 [facility] [address] [place] [id number] [address] 8978 Jan, Hypertension 401.9 ; Uncontrolled type 2 diabetes mellitus 250.02 ; Right shoulder pain 719.41 and Ulcer of heel and midfoot 707.14 [facility] [address] [place] [address] [id number] [address]- 1016 Dec, Diabetes with other specified manifestations, type II or unspecified type, not stated as uncontrolled 250.80 ; Ulcer of heel and midfoot 707.14 ; Hypertension 401.9 ; Hip pain, left 719.45 and Acute anxiety 300.00 [facility] [address] [place] [id number] [place] [address] 70266- 3286 Nov, [facility] [address] [place] [id number] [place] [address] 05228- 4417 Nov, [facility] [address] [place] [id number] [place] [address] 95633- 5639 September, Anxiety attack 300.01 and Cellulitis 682.9 [facility] [address] [place] [id number] [place] [address] 53295- 3852 September, [facility] [address] [place] [id number] [place] [address] 60360- 8052 September, [facility] [address] [address]- 0594 September, [facility] [address] [address]- 1647 Aug, [facility] [address] [address]- 5922 Aug, [facility] [address] [place] [id number] [place] [address] [id number]- 2040 Jul, [facility] [address] [address] 2157 Jul, [facility] [id number] [place] [address] [id number]- 0337 Jul, [facility] [place] [facility] [address] [id number] [place] [address]- 5505 May, [facility] [place] [facility] [address] [id number] [place] [address]- 7538 May, [facility] [place] [facility] [address] [id number] [place] [address]- 9340 Mar, [facility] [place] [facility] [address] [id number] [place] [address]- 5418 Mar, [facility] [place] [facility] [address] [id number] [place] [address]- 4389 Mar, [facility] [place] [facility] [address] [id number] [place] [address]- 4567 Mar, [facility] [place] [facility] [address] [id number] [place] [address]- 9458 Mar, [facility] [place] [facility] [address] [id number] [place] [address]- 5744 Mar, [facility] [place] [facility] [address] [id number] [place] [address]- 1141 Mar, [facility] [place] [facility] [address] [id number] [place] [address]- 6136 Feb, [facility] [place] [facility] [address] [id number] [place] [address]- 6032 Feb, [facility] [place] [facility] [address] [id number] [place] [address]- 7302 30 Jan, 2014 [facility] [place] [facility] [address] [id number] [place] [address]- 3461 30 Jan, 2014 [facility] [place] [facility] [address] [id number] [place] [address]- 2142 Jan, [facility] [place] [facility] [address] [id number] [place] [address]- 3698 Jan, [facility] [place] [facility] [address] [id number] [place] [address]- 4964 25 Sep, 2013 [facility] [place] [facility] [address] [id number] [place] [address] 2546 25 Sep, 2013 [facility] [place] [facility] [address] [id number] [place] [address] 2546 25 Sep, 2013 [facility] [place] [facility] [address] [id number] [place] [address] 2540 25 Sep, 2013 [facility] [place] [facility] [address] [id number] [place] [address] 2547 18 Sep, 2013 [facility] [place] [facility] [address] [id number] [place] [address]- 4436 18 Sep, 2013 [facility] [place] [facility] [address] [id number] [place] [address]- 0196 06 Sep, 2013 [facility] [place] [facility] [address] [id number] [place] [address]- 7462 06 Sep, 2013 [facility] [place] [facility] [address] [id number] [place] [address]- 7776 05 Sep, 2013 [facility] [place] [facility] [address] [id number] [place] [address] 2543 05 Sep, 2013 [facility] [place] [facility] [address] [id number] [place] [address] 2544 05 Sep, 2013 [facility] [place] [facility] [address] [id number] [place] [address] 2543 05 Sep, 2013 [facility] [place] [facility] [address] [id number] [address]- 2547 05 Sep, 2013 [facility] [place] [facility] [address] [id number] [place] [address] 2542 05 Sep, 2013 [facility] [place] [facility] [address] [id number] [place] [address]- 2961 Dec, [facility] [place] [facility] [address] [id number] [place] [address]- 2616 Dec, [facility] [place] [facility] [address] [id number] [place] [address]- 1720 Dec, 2013 [facility] [place] [facility] [address] [id number] [place] [address]- 8571 Dec, [facility] [place] [facility] [address] [id number] [place] [address]- 2587 Dec, [facility] [place] [facility] [address] [id number] [place] [address]- 1887 Dec, 2013 [facility] [place] [facility] [address] [id number] [place] [address]- 9081 Dec, 2013 [facility] [place] [facility] [address] [id number] [place] [address]- 7998 Dec, [facility] [place] [facility] [address] [id number] [place] [address]- 7673 Dec, [facility] [place] [facility] [address] [id number] [place] [address]- 6060 Dec, [facility] [place] [facility] [address] [id number] [place] [address]- 3917 Nov, [facility] [place] [facility] [address] [id number] [place] [address]- 4693 Nov, [facility] [place] [facility] [address] [id number] [place] [address]- 9952 Nov, [facility] [place] [facility] [address] [id number] [place] [address]- 5516 Nov, [facility] [place] [facility] [address] [id number] [place] [address]- 0876 Nov, [facility] [place] [facility] [address] [id number] [place] [address]- 4031 Nov, [facility] [place] [facility] [address] [id number] [place] [address]- 8908 Oct, [facility] [place] [facility] [address] [id number] [place] [id number] 0753 Oct, [facility] [place] [facility] [address] [id number] [place] [address]- 8516 Oct, [facility] [place] [facility] [address] [id number] [place] [address]- 1242 Oct, [facility] [place] [facility] [address] [id number] [place] [address]- 1911 Oct, [facility] [place] [facility] [address] [id number] [place] [address]- 3589 Oct, [facility] [place] [facility] [address] [id number] [place] [address] Oct, [facility] [place] [facility] [address] [id number] [place] [address] Oct, [facility] [place] [facility] [address] [id number] [place] [address] Oct, [facility] [place] [facility] [address] [id number] [place] [address] Oct, [facility] [place] [facility] [address] [id number] [place] [address] Oct, [facility] [place] [facility] [address] [id number] [place] [address] Oct, [facility] [place] [facility] [address] [id number] [place] [address] September, [facility] [place] [facility] [address] [id number] [place] [address] September, [facility] [place] [facility] [address] [id number] [place] [address] September, [facility] [place] [facility] [address] [id number] [place] [address] Aug, [facility] [place] [facility] [address] [id number] [place] [address] Aug, [facility] [place] [facility] [address] [id number] [place] [address] 13 Jul, 2013 [facility] [place] [facility] [address] [id number] [place] [address] Jul, [facility] [place] [facility] [address] [id number] [place] [address] Jul, [facility] [place] [facility] [address] [id number] [place] [address] Jul, [facility] [place] [facility] [address] [id number] [place] [address] Jul, [facility] [place] [facility] [address] [id number] [place] [address] Jul, [facility] [place] [facility] [address] [id number] [place] [address] Jul, [facility] [place] [facility] [address] [id number] [place] [address] Jul, [facility] [place] [facility] [address] [id number] [place] [address] Jul, [facility] [place] [facility] [address] [id number] [place] [address] Jul, [facility] [place] [facility] [address] [id number] [place] [address] 12[address] Jun, [facility] [place] [facility] [address] [id number] [place] [address] 37[address] Jun, [facility] [place] [facility] [address] [id number] [place] [address] 0041 Jun, [facility] [place] [facility] [address] [id number] [place] [address] Jun, [facility] [place] [facility] [address] [id number] [place] [address] 4709 May, [facility] [place] [facility] [address] [id number] [place] [address] May, [facility] [place] [facility] [address] [id number] [place] [address] 9779 Apr, [facility] [address] [id number] [place] [address] 5368 Apr, [facility] [address] [id number] [place] [address] 2975 Apr, [facility] [place] [facility] [address] [id number] [place] [address] Apr, [facility] [address] [id number] [place] [address] 2607 Apr, [facility] [address] [id number] [place] [address]406 Apr, [facility] [address] [id number] [place] [address] 1746 Apr, [facility] [address] [id number] [place] [address] 8391 Apr, [facility] [address] [id number] [place] [address] 0185 Mar, [facility] [address] [id number] [place] [address] 8664 Mar, [facility] [place] [facility] [address] [id number] [place] [address] 7343 Mar, [facility] [place] [facility] [address] [id number] [address] 9[address] Mar, [facility] [place] [facility] [address] [id number] [place] [address] 2755 Mar, [facility] [place] [facility] [address] [id number] [place] [address]- 5444 Mar, [facility] [place] [facility] [address] [id number] [place] [address] 4297 Feb, [facility] [place] [facility] [address] [id number] [address]67 30 Feb, 2013 [facility] [place] [facility] [address] [id number] [place] [address] 9190 18 Feb, 2013 [facility] [place] [facility] [address] [id number] [place] [address]- 7875 18 Feb, 2013 [facility] [place] [facility] [address] [id number] [place] [address]- 7182 14 Feb, 2013 [facility] [place] [facility] [address] [id number] [place] [address]- 7330 14 Feb, 2013 [facility] [place] [facility] [address] [id number] [place] [address] 04 Feb, 2013 [facility] [place] [facility] [address] [id number] [place] [address]- 7491 27 Jan, 2013 [facility] [place] [facility] [address] [id number] [place] [address]- 6230 26 Jan, 2013 [facility] [place] [facility] [address] [id number] [place] [address]- 0293 19 Jan, 2013 [facility] [place] [facility] [address] [id number] [place] [address]- 3485 05 Jan, 2013 [facility] [place] [facility] [address] [id number] [place] [address]- 1410 Dec, [facility] [place] [facility] [address] [id number] [place] [address] 6049 Dec, [facility] [place] [facility] [address] [id number] [place] [address] 1290 Dec, [facility] [place] [facility] [address] [id number] [place] [address]- 4477 Nov, [facility] [place] [facility] [address] [id number] [place] [address]- 9291 Nov, [facility] [place] [facility] [address] [id number] [place] [address]- 1285 Nov, [facility] [place] [facility] [address] [id number] [place] [address] 1697 10 Nov, 2012 [facility] [address] [id number] [place] [address] 1737 Nov, [facility] [address] [id number] [place] [address] 0646 Nov, [facility] [address] [id number] [place] [address]- 7483 Oct, [facility] [address] [id number] [place] [address] 4212 Oct, [facility] [address] [id number] [place] [address]- 4333 Oct, [facility] [address] [id number] [place] [address]- 9564 Oct, [facility] [address] [id number] [place] [address]- 5424 Oct, [facility] [address] [id number] [place] [address]- 1329 Oct, [facility] [address] [id number] [place] [address]- 2006 September, [facility] [address] [id number] [place] [address]- 0551 September, [facility] [address] [id number] [place] [address]- 2887 September, [facility] [address] [id number] [place] [address]- 1698 September, [facility] [address] [id number] [place] [address]- 6899 Aug, [facility] [address] [id number] [place] [address]- 9436 Aug, [facility] [address] [id number] [place] [address]- 0318 Jul, [facility] [address] [id number] [place] [address]- 2864 21 Jul, 2012 [facility] [place] [facility] [address] [id number] [place] [address]- 6368 18 Jul, 2012 [facility] [place] [facility] [address] [id number] [place] [address]- 0926 15 Jul, 2012 [facility] [place] [facility] [address] [id number] [place] [address]- 7757 13 Jul, 2012 [facility] [address] [id number] [place] [address]- 9421 08 Jul, 2012 [facility] [place] [facility] [address] [id number] [place] [address]- 0239 20 Jun, 2012 [facility] [place] [facility] [address] [id number] [place] [address]- 2913 13 Jun, 2012 [facility] [place] [facility] [address] [id number] [place] [address]- 2296 17 May, 2012 [facility] [address] [id number] [place] [address]- 4660 04 May, 2012 [facility] [address] [id number] [place] [address]- 1717 18 Apr, 2012 [facility] [place] [facility] [address] [id number] [place] [address]- 6463 18 Apr, 2012 [facility] [place] [facility] [address] [id number] [place] [address]- 7815 13 Apr, 2012 [facility] [place] [facility] [address] [id number] [place] [address]- 5930 13 Apr, 2012 [facility] [place] [facility] [address] [id number] [place] [address]- 6086 10 Apr, 2012 [facility] [place] [facility] [address] [id number] [place] [address]- 7209 10 Apr, 2012 [facility] [place] [facility] [address] [id number] [id number] [address] 07 Apr, 2012 [facility] [place] [facility] [address] [id number] [place] [address]- 7749 Apr, [facility] [place] [facility] [address] [id number] [place] [address] Apr, [facility] [place] [facility] [address] [id number] [place] [address]- 2416 Apr, [facility] [place] [facility] [address] [id number] [place] [address]- 9176 Apr, [facility] [place] [facility] [address] [id number] [place] [address]- 2792 Apr, [facility] [place] [facility] [address] [id number] [place] [address]- 5730 Apr, [facility] [place] [facility] [address] [id number] [place] [address]- 8882 Apr, [facility] [place] [facility] [address] [id number] [place] [address]- 1615 Apr, [facility] [place] [facility] [address] [id number] [place] [address]- 7761 Apr, [facility] [place] [facility] [address] [id number] [place] [address]- 2393 Mar, [facility] [place] [facility] [address] [id number] [place] [address]- 5718 Mar, [facility] [place] [facility] [address] [id number] [address]- 0141 Mar, [facility] [place] [facility] [address] [id number] [place] [address]- 7521 Mar, [facility] [place] [facility] [address] [id number] [place] [address]- 0725 Mar, [facility] [place] [facility] [address] [id number] [address]- 3163 Mar, [facility] [place] [facility] [address] [id number] [place] [address]- 2547 Mar, [facility] [place] [facility] [address] [id number] [place] [address]- 2969 Mar, [facility] [place] [facility] [address] [id number] [place] [address]- 1036 Mar, [facility] [place] [facility] [address] [id number] [place] [address]- 5039 Mar, [facility] [place] [facility] [address] [id number] [place] [address]- 9144 Feb, [facility] [place] [facility] [address] [id number] [place] [address]- 2580 Feb, [facility] [place] [facility] [address] [id number] [place] [address]- 8992 Feb, [facility] [place] [facility] [address] [id number] [place] [address]- 4065 Feb, [facility] [place] [facility] [address] [id number] [place] [address]- 7672 Feb, [facility] [place] [facility] [address] [id number] [place] [address]- 9436 Feb, [facility] [place] [facility] [address] [id number] [place] [address]- 9010 Jan, [facility] [place] [facility] [address] [id number] [place] [address]- 5847 Dec, [facility] [place] [facility] [address] [id number] [place] [address]- 2754 Dec, [facility] [place] [facility] [address] [id number] [place] [address]- 6668 Dec, [facility] [place] [facility] [address] [id number] [place] [address]- 6280 Dec, [facility] [place] [facility] [address] [id number] [place] [address]- 0846 Nov, [facility] [place] [facility] [address] [id number] [place] [address]- 6294 Nov, [facility] [place] [facility] [address] [id number] [place] [address]- 5156 Nov, [facility] [place] [facility] [address] [id number] [place] [address]- 5156 Nov, [facility] [place] [facility] [address] [id number] [place] [address]- 7554 Oct, [facility] [place] [facility] [address] [id number] [place] [address]- 0717 Oct, [facility] [place] [facility] [address] [id number] [place] [address]- 4835 Oct, [facility] [place] [facility] [address] [id number] [place] [address]- 2842 Oct, [facility] [place] [facility] [address] [id number] [place] [address]- 4543 Oct, [facility] [place] [facility] [address] [id number] [place] [address]- 3475 September, [facility] [place] [facility] [address] [id number] [place] [address]- 1673 September, [facility] [place] [facility] [address] [id number] [place] [address]- 6162 September, [facility] [place] [facility] [address] [id number] [place] [address]- 0642 September, [facility] [place] [facility] [address] [id number] [place] [address]- 8876 September, [facility] [place] [facility] [address] [id number] [place] [address]- 0484 September, [facility] [place] [facility] [address] [id number] [place] [address]- 6176 September, [facility] [place] [facility] [address] [id number] [place] [address]- 0319 September, [facility] [address] [id number] [place] [address]- 4243 Aug, [facility] [address] [id number] [place] [address]- 2534 Aug, [facility] [address] [id number] [place] [address]- 9560 Aug, [facility] [address] [id number] [place] [address]- 6419 Aug, [facility] [address] [id number] [place] [address]- 2907 18 Aug, 2011 [facility] [address] [id number] [place] [address]- 8971 17 Aug, 2011 [facility] [address] [id number] [place] [address]- 3959 Aug, [facility] [address] [id number] [place] [address]- 5700 Aug, [facility] [address] [id number] [place] [address]- 2623 Aug, [facility] [address] [id number] [place] [address]- 4405 Aug, [facility] [address] [id number] [place] [address]- 5313 Aug, [facility] [address] [id number] [place] [address]- 0545 Aug, [facility] [address] [id number] [place] [address]- 7049 29 Jul, 2011 [facility] [address] [id number] [place] [address]- 8859 Jul, [facility] [address] [id number] [place] [address]- 1361 Jul, [facility] [place] [facility] [address] [id number] [place] [address]- 6596 23 Jul, 2011 [facility] [place] [facility] [address] [id number] [place] [address]- 2426 Jul, [facility] [place] [facility] [address] [id number] [place] [address]- 3146 21 Jul, 2011 [facility] [place] [facility] [address] [id number] [place] [address]- 0526 14 Jul, 2011 [facility] [place] [facility] [address] [id number] [place] [address]- 5286 13 Jul, 2011 [facility] [place] [facility] [address] [id number] [place] [address]- 9686 07 Jul, 2011 [facility] [place] [facility] [address] [id number] [place] [address]- 0168 24 Jun, 2011 [facility] [place] [facility] [address] [id number] [place] [address]- 6992 Jun, [facility] [place] [facility] [address] [id number] [place] [address]- 1621 Jun, [facility] [place] [facility] [address] [id number] [place] [address]- 4215 14 Jun, 2011 [facility] [place] [facility] [address] [id number] [place] [address]- 3026 Jun, [facility] [place] [facility] [address] [id number] [place] [address]- 6676 Jun, [facility] [place] [facility] [address] [id number] [place] [address]- 5336 Jun, [facility] [place] [facility] [address] [id number] [place] [address]- 4876 May, [facility] [place] [facility] [address] [id number] [place] [address]- 7436 May, [facility] [place] [facility] [address] [id number] [place] [address]- 7495 May, [facility] [address] [id number] [place] [address]- 1997 May, [facility] [address] [id number] [place] [address]- 1616 May, [facility] [address] [id number] [place] [address]- 5056 May, [facility] [address] [id number] [place] [address]- 9763 May, [facility] [address] [id number] [place] [address]- 0608 Apr, [facility] [address] [id number] [place] [address]- 3147 Apr, [facility] [address] [id number] [place] [address]- 5655 Apr, [facility] [address] [id number] [place] [address]- 5744 Apr, [facility] [address] [id number] [place] [address]- 4958 Apr, [facility] [address] [id number] [place] [address]- 9631 Apr, [facility] [address] [id number] [place] [address]- 6415 Apr, [facility] [address] [id number] [place] [address]- 6503 Apr, [facility] [address] [id number] [place] [address]- 9204 05 Apr, 2011 [facility] [address] [id number] [place] [address]- 4789 Mar, [facility] [address] [id number] [place] [address]- 5507 Mar, [facility] [address] [id number] [place] [address]- 0568 Mar, [facility] [place] [facility] [address] [id number] [place] [address]- 0886 Mar, [facility] [place] [facility] [address] [id number] [place] [address] 2548 Mar, [facility] [place] [facility] [address] [id number] [place] [address]- 8306 Feb, [facility] [place] [facility] [address] [id number] [place] [address]- 5219 Feb, [facility] [place] [facility] [address] [id number] [place] [address]- 6944 Feb, [facility] [place] [facility] [address] [id number] [place] [address]- 8373 Dec, [facility] [place] [facility] [address] [id number] [place] [address]- 9058 Nov, [facility] [place] [facility] [address] [id number] [place] [address]- 7582 Apr, [facility] [place] [facility] [address] [id number] [place] 6979 Apr, [facility] [place] [facility] [address] [id number] [place] [address]- 2624 16 Apr, 2010 [facility] [place] [facility] [address] [id number] [address]- 3520 13 Apr, 2010 [facility] [place] [facility] [address] [id number] [place] [address]- 2723 Apr, [facility] [place] [facility] [address] [id number] [place] [address]- 7558 Apr, [facility] [place] [facility] [address] [id number] [place] [address]- 7054 Apr, [facility] [place] [facility] [address] [id number] [place] [address]- 0838 Apr, [facility] [id number] [address]- 3008 Mar, [facility] [id number] [address]- 6766 Mar, [facility] [id number] [address]- 4681 Mar, [facility] [id number] [place] [address] 64[address]- 3207 Mar, [facility] [id number] [place] [address] 67198- 4445 Mar, [facility] [id number] [place] [address] 91992- 8001 Mar, [facility] [id number] [place] [address] 42091- 3513 Mar, [facility] [id number] [address]- 2712 Mar, [facility] [id number] [place] [address] 901[address]- 6821 Mar, [facility] [id number] [address]- 8030 Mar, IMMUNIZATIONS No Known Immunizations SOCIAL HISTORY Never Assessed REASON FOR VISIT order for bladder spasms PLAN OF CARE VITAL SIGNS MEDICATIONS Medication Instructions Dosage Frequency Start Date End Date Duration Status Nystatin [id number] UNIT/GM Externally Twice a day till healed 1 application to affected area Nov, Active Pyridium 200 mg Orally every 8 hours, PRN 1 tablet after meals Nov, Active RESULTS No Results PROCEDURES No [...]
--- OUTSIDE RECORDS SUMMARY | 2018-04-22 23:03 | XMS REPORT ---
Author Author CARLOS LARA [facility] Address [address] [place] [address] Care Team Providers Care Scholastic Aptitude Test Grader Name Role Phone CARLOS LARA Unavailable PROBLEMS Type Condition ICD9-CM Code BXH00-BY Code Onset Dates Condition Status SNOMED Code Problem Iron deficiency anemia, unspecified iron deficiency anemia type D50.9 Active 55068439 Problem Mixed hyperlipidemia E78.2 Active 011625477 Problem Decreased diffusion capacity R94.2 Active 18029256 Problem Severe sleep apnea G47.30 Active 43555448 Problem Stenosis of carotid artery, unspecified laterality I65.29 Active 84914260 Problem Coronary artery disease involving [place] coronary artery of [place] heart, angina presence unspecified I25.10 Active 5887928666614 Problem Generalized osteoarthritis M15.9 Active 225200195 Problem Aortic valve sclerosis I35.8 Active 55444564 Problem Essential hypertension I10 Active 05843627 Problem Transient cerebral ischemia, unspecified type G45.9 Active 739344390 Problem Renal osteodystrophy N25.0 Active 51258460 Problem Anxiety about health F41.8 Active 590022084 Problem 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 Active 5188766 Problem Type 2 diabetes mellitus with unspecified complications E11.8 Active 41619937 Problem longterm 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.4 Active 966531893 Problem Chronic kidney disease, unspecified CKD stage N18.9 Active 715567038 Problem Inability to bear weight R26.89 Active 317492481 Problem Chronic kidney disease (CKD), stage 4 (severe) N18.4 Active 822784118 Problem Type 2 diabetes mellitus with foot ulcer E11.621 Active 945363893 Problem Type 2 diabetes mellitus with hyperglycemia E11.65 Active 84799555 Problem Type 2 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 Active 87827709 Problem Bladder spasms N32.89 Active 633132866 Problem Pain R52 Active 29121317 Problem Other chronic pain G89.29 Active 76420582 Problem Slow transit constipation K59.01 Active 64950293 Problem Chronic kidney disease, stage 3 (moderate) N18.3 Active 756309167 Problem Diarrhea, unspecified type R19.7 Active 56489796 Problem Type 2 diabetes mellitus with diabetic polyneuropathy E11.42 Active 759738130 Problem Anemia in other chronic diseases classified elsewhere D63.8 Active 634689594 Problem BMI 50.0-59.9, adult Z68.43 Active 556205312 Problem Port catheter in place Z95.828 Active 763974090 Problem Trochanteric bursitis of left hip M70.62 Active 366081404699730 Problem Hypoxemia R09.02 Active 178029987 ALLERGIES No Information ENCOUNTERS Encounter Location Date Diagnosis [place] [address] [address] Jan, Inability to bear weight R26.89 [facility] [address] [place] [id number] Dec, Low back pain M54.5 ; Other chronic pain G89.29 and Chronic kidney disease (CKD), stage 4 (severe) N18.4 [place] [address] [place] [id number] [place] [address] 12353- 6869 Dec, Type 2 diabetes mellitus with hyperglycemia E11.65 [place] [address] [id number] [place] [address] 20525- 0465 Dec, [facility] [address] [place] [id number] Dec, Type 2 diabetes mellitus with hyperglycemia E11.65 ; Essential hypertension I10 ; Generalized osteoarthritis M15.9 ; Mixed hyperlipidemia E78.2 ; Hypoxia R09.02 ; Port catheter in place Z95.828 ; Anemia due to acute blood loss D62 ; Chronic kidney disease, unspecified CKD stage N18.9 and Severe sleep apnea G47.30 [place] [address] [place] [id number] [place] [address] 75761- 7949 Dec, Type 2 diabetes mellitus with hyperglycemia E11.65 [place] [address] [address]- [address] Dec, [facility] [id number] [place] [address] 44350- 6274 Dec, Type 2 diabetes mellitus with hyperglycemia E11.65 [facility] [address] [address] [id number] [place] [address] 00362- 9541 Dec, Left leg pain M79.605 [facility] [id number] [place] [address] 69813- 0966 Nov, Slow transit constipation K59.01 [facility] [id number] [place] [address] 17975- 7422 Nov, [facility] [address] [place] [id number] Nov, Anemia due to acute blood loss D62 [facility] [address] [id number] [place] [address] 62722- 3685 Nov, [facility] [id number] [place] [address] 15185- 7125 Nov, Bladder spasms N32.89 [facility] [id number] [place] [address] 50781- 7386 Nov, Pain R52 [facility] [address] [id number] Nov, Anemia due to acute blood loss D62 [facility] [id number] [place] [address] 89527- 6056 Nov, Pain in right hip M25.551 and Pain in left hip M25.552 [facility] [address] [address] 54[address] Nov, [facility] [address] [id number] [place] [address] 82917- 0909 Nov, [facility] [id number] [address] 2598 Nov, [facility] [id number] [place] [address] 04755- 2432 Nov, [place] [id number] [place] [address] 59793- 9369 Oct, [facility] [address] [place] [id number] [place] [address] 67911- 1936 Oct, [facility] [address] [id number] 26 Oct, 2017 Encounter for examination for admission to usp Z02.2 ; Chronic kidney disease, unspecified CKD stage N18.9 ; Type 2 diabetes mellitus with unspecified complications E11.8 ; 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 ; Essential hypertension I10 ; Hypoxia R09.02 ; Severe sleep apnea G47.30 ; Stenosis of carotid artery, unspecified laterality I65.29 ; Generalized osteoarthritis M15.9 ; Coronary artery disease involving [place] coronary artery of [place] heart, angina presence unspecified I25.10 ; Port catheter in place Z95.828 and Hemorrhoids, unspecified hemorrhoid type K64.9 [place] [address] [place] [id number] [place] [address] 90470- 2975 Oct, [facility] [address] [place] [id number] [place] [address] 14865- 3584 Oct, [place] [address] [address] [id number] [place] [address] 62671- 5449 Oct, [place] [address] [address] [id number] [place] [address] 94195- 3442 Oct, [facility] [id number] [place] [address] 95200 -7171 September, BMI 50.0-59.9, adult Z68.43 [facility] [address] [place] [id number] [place] [address] 29706- 2058 September, [facility] [address] [id number] [place] [address] 59046- 1123 September, [facility] [address] [place] [id number] [place] [address] 19539- 9057 Aug, Type 2 diabetes mellitus with foot ulcer E11.621 ; Transient cerebral ischemia, unspecified type G45.9 ; Essential hypertension I10 ; Mixed hyperlipidemia E78.2 and BMI 50.0-59.9, adult Z68.43 [place] [address] [place] [address] [id number] [place] [address] 32529- 1811 17 Aug, 2017 [place] [address] [address] [id number] [place] [address] 49614- 1285 14 Jul, 2017 Anxiety about health F41.8 and Mixed hyperlipidemia E78.2 [place] [address] 84901- 2084 13 Jul, 2017 [place] [address] 27956- 0299 Jun, [place] [address] [address] [id number] [place] [address] 19582- 9495 12 Jun, 2017 Type 2 diabetes mellitus with hyperglycemia E11.65 ; Type 2 diabetes mellitus with foot ulcer E11.621 ; Port catheter in place Z95.828 ; 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 ; Contact with and (suspected) exposure to potentially hazardous body fluids Z77.21 and BMI 50.0-59.9, adult Z68.43 [place] [address] [place] [id number] [place] [address] 18673- 0523 May, [place] [address] [address] [id number] [place] [address] 29420- 2550 May, Open wound of right great toe, subsequent encounter S91.101D [place] [address] [address] [id number] [place] [address] 83387- 1701 May, [place] [address] [address] [id number] [place] [address] 21100- 1348 Apr, [place] [address] 19894- 8665 Apr, [place] [address] [address] [id number] [place] [address] 38540- 5735 Apr, [place] [address] [place] [address] 77026- 2020 14 Apr, 2017 Type 2 diabetes mellitus with diabetic polyneuropathy E11.42 [place] [address] [address] [id number] [place] [address] 97137- 1591 13 Apr, 2017 Open wound of right great toe, subsequent encounter S91.101D [address] 97406- 2857 08 Apr, 2017 Open wound of right great toe, subsequent encounter S91.101D ; Breast pain, left N64.4 ; Breast cancer screening Z12.31 ; Type 2 diabetes mellitus with foot ulcer E11.621 ; Essential hypertension I10 and BMI 50.0-59.9, adult Z68.43 [place] [id number] [place] [address] 46748- 8114 29 Mar, 2017 Encounter for immunization Z23 [place] [id number] [place] [address] 01258- 1693 19 Mar, 2017 [place] [id number] [place] [address] 18023- 0379 13 Mar, 2017 [place] [id number] [place] [address] 79668- 8833 10 Mar, 2017 Type 2 diabetes mellitus with diabetic polyneuropathy E11.42 ; Type 2 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 ; Type 2 diabetes mellitus with foot ulcer E11.621 ; Essential hypertension I10 ; Hypoxemia R09.02 and Generalized osteoarthritis M15.9 [place] [id number] [place] [address] 47070- 8337 02 Mar, 2017 Chronic kidney disease, stage 3 (moderate) N18.3 ; Acute cystitis without hematuria N30.00 ; Essential hypertension I10 ; Muscle spasms of neck M62.838 ; Type 2 diabetes mellitus with diabetic polyneuropathy E11.42 and BMI 50.0-59.9, adult Z68.43 [place] [address] [place] [id number] [place] [address] 85095- 9183 30 Feb, 2017 [facility] [address] [address] Feb, [facility] [id number] [address]- 1778 Feb, [facility] [address] [address]- 6950 Feb, [facility] [address] [place] [address] [id number] [place] [address] 03883- 3230 Feb, [facility] [id number] [place] [address] 10700- 5658 Feb, [facility] [id number] [place] [address] 61156- 2604 Feb, Mixed hyperlipidemia E78.2 [facility] [id number] [address]- 2428 Feb, [facility] [id number] [address]- 0554 Jan, [facility] [address], [place] [address]- 4627 Jan, Generalized osteoarthritis M15.9 [facility] [address], [place] [address]- 5912 Oct, [facility] [address], [place] [address]- 9250 Jul, [facility] [address], [place] [address]- 8433 13 Jul, 2016 [facility] [address], [place] [address]- 5559 02 Jul, 2017 Type 2 diabetes mellitus with hyperglycemia E11.65 ; Chronic kidney disease, stage 3 (moderate) N18.3 ; Type 2 diabetes mellitus with foot ulcer E11.621 ; Type 2 diabetes mellitus with diabetic polyneuropathy E11.42 ; Generalized osteoarthritis M15.9 ; Trochanteric bursitis of left hip M70.62 and Tinea pedis of both feet B35.3 [place] [address] [place] [address] 39815- 9404 13 Jun, 2016 [facility] [address] [place] [id number] [place] [address] 61539- 2905 Apr, [facility] [address] [id number] [place] [address] 05931- 9429 Apr, [facility] [address] [place] [id number] [place] [address] 92961- 3786 Mar, [place] [id number] [place] [address] 78897- 2678 Feb, Encounter for immunization Z23 [place] [address] [id number] [place] [address] 30063- 7277 Feb, [place] [address] [address] [id number] [place] [address] 54044- 8727 Feb, Type 2 diabetes mellitus with hyperglycemia E11.65 ; Encounter for immunization Z23 ; Diarrhea, unspecified type R19.7 ; Essential hypertension I10 ; Mixed hyperlipidemia E78.2 ; Hypoxia R09.02 ; 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 and Type 2 diabetes mellitus with foot ulcer E11.621 [place] [address] [place] [address] 86543- 9632 Jan, [place] [address] [place] [address] [id number] [place] [address] 93618- 7913 Jan, Type 2 diabetes mellitus with hyperglycemia E11.65 and Pneumonia due to infectious organism, unspecified laterality, unspecified part of lung J18.9 [place] [address] [place] [address] 33800- 0151 Jan, [place] [address] [id number] [place] [address] 42463- 8361 Jan, [facility] [address] [place] [id number] [place] [address] 40296- 1339 Oct, Type 2 diabetes mellitus with hyperglycemia E11.65 ; Generalized osteoarthritis M15.9 and Chronic prescription opiate use Z79.891 [facility] [address] [place] [address] 36256- 7989 September, [facility] [address] [place] [id number] [place] [address] 16187- 8635 Aug, [facility] [address] [id number] [place] [address] 80258- 3982 Aug, [facility] [address] [place] [id number] [place] [address] 09633- 7429 Aug, [facility] [address] [place] [id number] [place] [address] 61224- 0893 Aug, [facility] [address] [place] [id number] [place] [address] 53364- 0744 Jun, [facility] [address] [place] [id number] [place] [address] 44580- 6575 Jun, Type 2 diabetes mellitus with hyperglycemia E11.65 ; Mixed hyperlipidemia E78.2 ; Vaginal itching L29.8 ; Neck muscle spasm M62.838 and Skin abrasion T14.8 [facility] [address] [place] [address] 02404- 5521 Apr, [facility] [id number] [address]- 6446 Apr, [facility] [address] [place] [id number] [place] [address] 79802- 8097 Mar, [facility] [address] [place] [address] 65188- 9075 Feb, [facility] [address] [place] [id number] [place] [address] 06724- 9180 Feb, Type 2 diabetes mellitus with hyperglycemia E11.65 ; Type 2 diabetes mellitus with foot ulcer E11.621 ; Type 2 diabetes mellitus with diabetic polyneuropathy E11.42 and Encounter for immunization Z23 [facility] [id number] [address] 6513 Jan, Hypertension 401.9 ; Uncontrolled type 2 diabetes mellitus 250.02 ; Right shoulder pain 719.41 and Ulcer of heel and midfoot 707.14 [facility] [id number] [address]- 6473 Dec, Diabetes with other specified manifestations, type II or unspecified type, not stated as uncontrolled 250.80 ; Ulcer of heel and midfoot 707.14 ; Hypertension 401.9 ; Hip pain, left 719.45 and Acute anxiety 300.00 [facility] [address] [place] [id number] [place] [address] 58492- 2519 Nov, [facility] [address] [id number] [place] [address] 24062- 6121 Nov, [facility] [address] [place] [id number] [place] [address] 97412- 4469 September, Anxiety attack 300.01 and Cellulitis 682.9 [facility] [address] [place] [id number] [place] [address] 84630- 2667 September, [facility] [address] [place] [id number] [place] [address] 96827- 8642 September, [facility] [address], [place] [address]- 6699 September, [facility] [address], [place] [address]- 7550 Aug, [facility] [address], [place] [address]- 0278 Aug, [facility] [address] [place] [id number] [place] [address] 71672330- 0925 Jul, [facility] [address] [address] 6200 Jul, [facility] [id number] [place] [address] [id number]- 7053 Jul, [facility] [place] [facility] [address] [id number] [place] [address]- 6394 May, [facility] [place] [facility] [address] [id number] [place] [address]- 8029 May, [facility] [place] [facility] [address] [id number] [place] [address]- 6025 Mar, [facility] [place] [facility] [address] [id number] [place] [address]- 2752 Mar, [facility] [place] [facility] [address] [id number] [place] [address]- 7130 Mar, [facility] [place] [facility] [address] [id number] [place] [address]- 4468 Mar, [facility] [place] [facility] [address] [id number] [place] [address]- 0905 Mar, [facility] [place] [facility] [address] [id number] [place] [address]- 4808 Mar, [facility] [place] [facility] [address] [id number] [place] [address]- 3663 Mar, [facility] [place] [facility] [address] [id number] [place] [address]- 9678 Feb, [facility] [place] [facility] [address] [id number] [place] [address]- 9691 Feb, [facility] [place] [facility] [address] [id number] [place] [address]- 1126 30 Jan, 2014 [facility] [place] [facility] [address] [id number] [place] [address]- 8065 30 Jan, 2014 [facility] [place] [facility] [address] [id number] [place] [address]- 6318 Jan, [facility] [place] [facility] [address] [id number] [place] [address]- 2403 Jan, [facility] [place] [facility] [address] [id number] [place] [address]- 0837 25 Sep, 2013 [facility] [place] [facility] [address] [id number] [place] [address] 2546 25 Sep, 2013 [facility] [place] [facility] [address] [id number] [place] [address] 2546 25 Sep, 2013 [facility] [place] [facility] [address] [id number] [place] [address] 2544 25 Sep, 2013 [facility] [place] [facility] [address] [id number] [place] [address] 2542 18 Sep, 2013 [facility] [place] [facility] [address] [id number] [place] [address]- 7621 18 Sep, 2013 [facility] [place] [facility] [address] [id number] [place] [address]- 3478 06 Sep, 2013 [facility] [place] [facility] [address] [id number] [place] [address]- 2427 06 Sep, 2013 [facility] [place] [facility] [address] [id number] [place] [address]- 2492 05 Sep, 2013 [facility] [place] [facility] [address] [id number] [place] [address] 2542 05 Sep, 2013 [facility] [place] [facility] [address] [id number] [place] [address] 2543 05 Sep, 2013 [facility] [place] [facility] [address] [id number] [place] [address] 254 05 Sep, 2013 [facility] [place] [facility] [address] [id number] [address]- 2547 05 Sep, 2013 [facility] [place] [facility] [address] [id number] [place] [address] 2543 05 Sep, 2013 [facility] [place] [facility] [address] [id number] [place] [address]- 7484 Dec, [facility] [place] [facility] [address] [id number] [place] [address]- 6334 Dec, [facility] [place] [facility] [address] [id number] [place] [address]- 7407 Dec, 2013 [facility] [place] [facility] [address] [id number] [place] [address]- 9567 Dec, [facility] [place] [facility] [address] [id number] [place] [address]- 4845 Dec, [facility] [place] [facility] [address] [id number] [place] [address]- 8769 Dec, 2013 [facility] [place] [facility] [address] [id number] [place] [address]- 7205 Dec, 2013 [facility] [place] [facility] [address] [id number] [place] [address]- 6010 Dec, [facility] [place] [facility] [address] [id number] [place] [address]- 2765 Dec, [facility] [place] [facility] [address] [id number] [place] [address]- 5565 Dec, [facility] [place] [facility] [address] [id number] [place] [address]- 9531 Nov, [facility] [place] [facility] [address] [id number] [place] [address]- 0064 Nov, [facility] [place] [facility] [address] [id number] [place] [address]- 3828 Nov, [facility] [place] [facility] [address] [id number] [place] [address]- 2485 Nov, [facility] [place] [facility] [address] [id number] [place] [address]- 0877 Nov, [facility] [place] [facility] [address] [id number] [place] [address]- 6813 Nov, [facility] [place] [facility] [address] [id number] [place] [address]- 9750 Oct, [facility] [place] [facility] [address] [id number] [place] [address] 9753 Oct, [facility] [place] [facility] [address] [id number] [place] [address]- 8169 Oct, [facility] [place] [facility] [address] [id number] [place] [address]- 9545 Oct, [facility] [place] [facility] [address] [id number] [place] [address]- 8634 Oct, [facility] [place] [facility] [address] [id number] [place] [address]- 0321 Oct, [facility] [place] [facility] [address] [id number] [place] [address]- 0759 Oct, [facility] [place] [facility] [address] [id number] [place] [address]- 8533 Oct, [facility] [place] [facility] [address] [id number] [place] [address]- 5346 Oct, [facility] [place] [facility] [address] [id number] [place] [address]- 1315 Oct, [facility] [place] [facility] [address] [id number] [place] [address] Oct, [facility] [place] [facility] [address] [id number] [place] [address] Oct, [facility] [place] [facility] [address] [id number] [place] [address] September, [facility] [place] [facility] [address] [id number] [place] [address] September, [facility] [place] [facility] [address] [id number] [place] [address] September, [facility] [place] [facility] [address] [id number] [place] [address] Aug, [facility] [place] [facility] [address] [id number] [place] [address] Aug, [facility] [place] [facility] [address] [id number] [place] [address] 13 Jul, 2013 [facility] [place] [facility] [address] [id number] [place] [address] Jul, [facility] [place] [facility] [address] [id number] [place] [address] Jul, [facility] [place] [facility] [address] [id number] [place] [address] Jul, [facility] [place] [facility] [address] [id number] [place] [address] Jul, [facility] [place] [facility] [address] [id number] [place] [address] Jul, [facility] [place] [facility] [address] [id number] [place] [address] Jul, [facility] [place] [facility] [address] [id number] [place] [address] Jul, [facility] [place] [facility] [address] [id number] [place] [address] Jul, [facility] [place] [facility] [address] [id number] [place] [address] Jul, [facility] [place] [facility] [address] [id number] [place] [address] 6[address] Jun, [facility] [place] [facility] [address] [id number] [place] [address] 5424 Jun, [facility] [place] [facility] [address] [id number] [place] [address] 1864 Jun, [facility] [place] [facility] [address] [id number] [place] [address] 59[address] Jun, [facility] [place] [facility] [address] [id number] [place] [address] 6830 May, [facility] [place] [facility] [address] [id number] [place] [address] 8345 May, [facility] [place] [facility] [address] [id number] [place] [address] 9044 Apr, [facility] [address] [id number] [place] [address] 7527 Apr, [facility] [address] [id number] [place] [address]- 0738 Apr, [facility] [place] [facility] [address] [id number] [place] [address] Apr, [facility] [address] [id number] [place] [address] 6917 Apr, [facility] [address] [id number] [place] [address] 6633 Apr, [facility] [address] [id number] [place] [address] 4996 Apr, [facility] [address] [id number] [place] [address] 5902 Apr, [facility] [address] [id number] [place] [address] 3161 Mar, [facility] [address] [id number] [place] [address] 3351 Mar, [facility] [place] [facility] [address] [id number] [place] [address] 2447 Mar, [facility] [place] [facility] [address] [id number] [address] Mar, [facility] [place] [facility] [address] [id number] [place] [address] 7576 Mar, [facility] [place] [facility] [address] [id number] [place] [address]- 8665 Mar, [facility] [place] [facility] [address] [id number] [place] [address] 7976 Feb, [facility] [place] [facility] [address] [id number], [place] [address] 30 Feb, 2013 [facility] [place] [facility] [address] [id number] [place] [address]- 2517 18 Feb, 2013 [facility] [place] [facility] [address] [id number] [place] [address]- 9397 18 Feb, 2013 [facility] [place] [facility] [address] [id number] [place] [address]- 3412 14 Feb, 2013 [facility] [place] [facility] [address] [id number] [place] [address]- 6571 14 Feb, 2013 [facility] [place] [facility] [address] [id number] [place] [address] 04 Feb, 2013 [facility] [place] [facility] [address] [id number] [place] [address]- 0282 27 Jan, 2013 [facility] [place] [facility] [address] [id number] [place] [address]- 5770 26 Jan, 2013 [facility] [place] [facility] [address] [id number] [place] [address]- 6334 19 Jan, 2013 [facility] [place] [facility] [address] [id number] [place] [address]- 8822 05 Jan, 2013 [facility] [place] [facility] [address] [id number] [place] [address]- 8632 Dec, [facility] [place] [facility] [address] [id number] [place] [address]- 9425 Dec, [facility] [place] [facility] [address] [id number] [place] [address]- 5428 Dec, [facility] [place] [facility] [address] [id number] [place] [address] 8347 Nov, [facility] [place] [facility] [address] [id number] [place] [address] 8560 Nov, [facility] [place] [facility] [address] [id number] [place] [address]- 7499 Nov, [facility] [place] [facility] [address] [id number] [place] [address]- 7238 10 Nov, 2012 [facility] [address] [id number] [place] [address]- 1737 Nov, [facility] [address] [id number] [place] [address]- 3786 Nov, [facility] [address] [id number] [place] [address]- 8084 Oct, [facility] [address] [id number] [place] [address] 6072 Oct, [facility] [address] [id number] [place] [address]- 1721 Oct, [facility] [address] [id number] [place] [address]- 5836 Oct, [facility] [address] [id number] [place] [address]- 8794 Oct, [facility] [address] [id number] [place] [address]- 5284 Oct, [facility] [address] [id number] [place] [address]- 0367 September, [facility] [address] [id number] [place] [address]- 5929 September, [facility] [address] [id number] [place] [address]- 2923 September, [facility] [address] [id number] [place] [address]- 6972 September, [facility] [address] [id number] [place] [address]- 9443 Aug, [facility] [address] [id number] [place] [address]- 7116 Aug, [facility] [address] [id number] [place] [address]- 8665 Jul, [facility] [address] [id number] [place] [address]- 7533 21 Jul, 2012 [facility] [place] [facility] [address] [id number] [place] [address]- 5021 18 Jul, 2012 [facility] [place] [facility] [address] [id number] [place] [address]- 5542 15 Jul, 2012 [facility] [place] [facility] [address] [id number] [place] [address]- 5931 13 Jul, 2012 [facility] [address] [id number] [place] [address]- 5662 08 Jul, 2012 [facility] [place] [facility] [address] [id number] [place] [address]- 8626 20 Jun, 2012 [facility] [place] [facility] [address] [id number] [place] [address]- 1684 13 Jun, 2012 [facility] [place] [facility] [address] [id number] [place] [address]- 7759 17 May, 2012 [facility] [address] [id number] [place] [address]- 9247 04 May, 2012 [facility] [address] [id number] [place] [address]- 9187 18 Apr, 2012 [facility] [place] [facility] [address] [id number] [place] [address]- 2627 18 Apr, 2012 [facility] [place] [facility] [address] [id number] [place] [address]- 4495 13 Apr, 2012 [facility] [place] [facility] [address] [id number] [place] [address]- 9733 13 Apr, 2012 [facility] [place] [facility] [address] [id number] [place] [address]- 9234 10 Apr, 2012 [facility] [place] [facility] [address] [id number] [place] [address]- 9469 10 Apr, 2012 [facility] [place] [facility] [address] [id number] [place] [address]21 07 Apr, 2012 [facility] [place] [facility] [address] [id number] [place] [address]- 9628 Apr, [facility] [place] [facility] [address] [id number] [place] [address]76 Apr, [facility] [place] [facility] [address] [id number] [place] [address]- 1706 Apr, [facility] [place] [facility] [address] [id number] [place] [address]- 4936 Apr, [facility] [place] [facility] [address] [id number] [place] [address]- 3707 Apr, [facility] [place] [facility] [address] [id number] [place] [address]- 4057 Apr, [facility] [place] [facility] [address] [id number] [place] [address]- 0766 Apr, [facility] [place] [facility] [address] [id number] [place] [address]- 9154 Apr, [facility] [place] [facility] [address] [id number] [place] [address]- 3643 Apr, [facility] [place] [facility] [address] [id number] [place] [address]- 3028 Mar, [facility] [place] [facility] [address] [id number] [place] [address]- 8122 Mar, [facility] [place] [facility] [address] [id number], [place] [address]- 0209 Mar, [facility] [place] [facility] [address] [id number] [place] [address]- 0117 Mar, [facility] [place] [facility] [address] [id number] [place] [address]- 0567 Mar, [facility] [place] [facility] [address] [id number], [place] [address]- 5465 Mar, [facility] [place] [facility] [address] [id number] [place] [address]- 2541 Mar, [facility] [place] [facility] [address] [id number] [place] [address]- 4473 Mar, [facility] [place] [facility] [address] [id number] [place] [address]- 6606 Mar, [facility] [place] [facility] [address] [id number] [place] [address]- 3594 Mar, [facility] [place] [facility] [address] [id number] [place] [address]- 7458 Feb, [facility] [place] [facility] [address] [id number] [place] [address]- 8507 Feb, [facility] [place] [facility] [address] [id number] [place] [address]- 2107 Feb, [facility] [place] [facility] [address] [id number] [place] [address]- 2646 Feb, [facility] [place] [facility] [address] [id number] [place] [address]- 1967 Feb, [facility] [place] [facility] [address] [id number] [place] [address]- 8866 Feb, [facility] [place] [facility] [address] [id number] [place] [address]- 3318 Jan, [facility] [place] [facility] [address] [id number] [place] [address]- 9845 Dec, [facility] [place] [facility] [address] [id number] [place] [address]- 0322 Dec, [facility] [place] [facility] [address] [id number] [place] [address]- 8371 Dec, [facility] [place] [facility] [address] [id number] [place] [address]- 9113 Dec, [facility] [place] [facility] [address] [id number] [place] [address]- 5526 Nov, [facility] [place] [facility] [address] [id number] [place] [address]- 3598 Nov, [facility] [place] [facility] [address] [id number] [place] [address]- 1106 Nov, [facility] [place] [facility] [address] [id number] [place] [address]- 5713 Nov, [facility] [place] [facility] [address] [id number] [place] [address]- 1696 Oct, [facility] [place] [facility] [address] [id number] [place] [address]- 4171 Oct, [facility] [place] [facility] [address] [id number] [place] [address]- 4159 Oct, [facility] [place] [facility] [address] [id number] [place] [address]- 0727 Oct, [facility] [place] [facility] [address] [id number] [place] [address]- 8708 Oct, [facility] [place] [facility] [address] [id number] [place] [address]- 2791 September, [facility] [place] [facility] [address] [id number] [place] [address]- 5903 September, [facility] [place] [facility] [address] [id number] [place] [address]- 1674 September, [facility] [place] [facility] [address] [id number] [place] [address]- 1855 September, [facility] [place] [facility] [address] [id number] [place] [address]- 6223 September, [facility] [place] [facility] [address] [id number] [place] [address]- 6298 September, [facility] [place] [facility] [address] [id number] [place] [address]- 1856 September, [facility] [place] [facility] [address] [id number] [place] [address]- 1553 September, [facility] [address] [id number] [place] [address]- 5465 Aug, [facility] [address] [id number] [place] [address]- 1377 Aug, [facility] [address] [id number] [place] [address]- 0990 Aug, [facility] [address] [id number] [place] [address]- 9505 Aug, [facility] [address] [id number] [place] [address]- 7509 18 Aug, 2011 [facility] [address] [id number] [place] [address]- 7301 17 Aug, 2011 [facility] [address] [id number] [place] [address]- 6624 Aug, [facility] [address] [id number] [place] [address]- 4989 Aug, [facility] [address] [id number] [place] [address]- 8679 Aug, [facility] [address] [id number] [place] [address]- 8100 Aug, [facility] [address] [id number] [place] [address]- 9241 Aug, [facility] [address] [id number] [place] [address]- 7494 Aug, [facility] [address] [id number] [place] [address]- 8838 29 Jul, 2011 [facility] [address] [id number] [place] [address]- 4151 Jul, [facility] [address] [id number] [place] [address]- 4010 Jul, [facility] [place] [facility] [address] [id number] [place] [address]- 9028 23 Jul, 2011 [facility] [place] [facility] [address] [id number] [place] [address]- 7746 Jul, [facility] [place] [facility] [address] [id number] [place] [address]- 1146 21 Jul, 2011 [facility] [place] [facility] [address] [id number] [place] [address]- 6556 14 Jul, 2011 [facility] [place] [facility] [address] [id number] [place] [address]- 2352 13 Jul, 2011 [facility] [place] [facility] [address] [id number] [place] [address]- 0826 07 Jul, 2011 [facility] [place] [facility] [address] [id number] [place] [address]- 7091 24 Jun, 2011 [facility] [place] [facility] [address] [id number] [place] [address]- 7769 Jun, [facility] [place] [facility] [address] [id number] [place] [address]- 0209 Jun, [facility] [place] [facility] [address] [id number] [place] [address]- 2964 14 Jun, 2011 [facility] [place] [facility] [address] [id number] [place] [address]- 5236 Jun, [facility] [place] [facility] [address] [id number] [place] [address]- 4466 Jun, [facility] [place] [facility] [address] [id number] [place] [address]- 8856 Jun, [facility] [place] [facility] [address] [id number] [place] [address]- 7696 May, [facility] [place] [facility] [address] [id number] [place] [address]- 1116 May, [facility] [place] [facility] [address] [id number] [place] [address]- 6618 May, [facility] [address] [id number] [place] [address]- 7092 May, [facility] [address] [id number] [place] [address]- 8566 May, [facility] [address] [id number] [place] [address]- 2386 May, [facility] [address] [id number] [place] [address]- 2511 May, [facility] [address] [id number] [place] [address]- 5500 Apr, [facility] [address] [id number] [place] [address]- 2570 Apr, [facility] [address] [id number] [place] [address]- 0433 Apr, [facility] [address] [id number] [place] [address]- 0977 Apr, [facility] [address] [id number] [place] [address]- 8631 Apr, [facility] [address] [id number] [place] [address]- 4701 Apr, [facility] [address] [id number] [place] [address]- 8955 Apr, [facility] [address] [id number] [place] [address]- 4469 Apr, [facility] [address] [id number] [place] [address]- 3244 05 Apr, 2011 [facility] [address] [id number] [place] [address]- 2168 Mar, [facility] [address] [id number] [place] [address]- 0890 Mar, [facility] [address] [id number] [place] [address]- 8493 Mar, [facility] [place] [facility] [address] [id number] [place] [address]- 5396 Mar, [facility] [place] [facility] [address] [id number] [place] [address] 2542 Mar, [facility] [place] [facility] [address] [id number] [place] [address]- 7856 Feb, [facility] [place] [facility] [address] [id number] [place] [address]- 8602 Feb, [facility] [place] [facility] [address] [id number] [place] [address]- 0146 Feb, [facility] [place] [facility] [address] [id number] [place] [address]- 2518 Dec, [facility] [place] [facility] [address] [id number] [place] [address]- 4486 Nov, [facility] [place] [facility] [address] [id number] [place] [address]- 4146 Apr, [facility] [place] [facility] [address] [id number] [place] 8354 Apr, [facility] [place] [facility] [address] [id number] [place] [address]- 7274 16 Apr, 2010 [facility] [place] [facility] [address] [id number], [place] [address]- 3001 13 Apr, 2010 [facility] [place] [facility] [address] [id number] [place] [address]- 7755 Apr, [facility] [place] [facility] [address] [id number] [place] [address]- 6988 Apr, [facility] [place] [facility] [address] [id number] [place] [address]- 6251 Apr, [facility] [place] [facility] [address] [id number], [place] [address] 2239 Apr, [facility] [id number] [address] 1337 Mar, [facility] [address] [facility] [id number], [place] [address]- 7759 Mar, [facility] [id number], [place] [address]- 7818 Mar, [facility] [id number], [place] [address]- 3542 Mar, [facility] [id number], [place] [address]- 0359 Mar, [facility] [id number], [place] [address]- 4814 Mar, [facility] [id number], [place] [address]- 9265 Mar, [facility] [id number], [place] [address]- 8100 Mar, [facility] [id number], [place] [address]- 3510 Mar, [facility] [id number], [place] [address]- 3552 Mar, IMMUNIZATIONS No Known Immunizations SOCIAL HISTORY Never Assessed REASON FOR VISIT Care Home Visit PLAN OF CARE Activity Details Follow Up prn Reason: VITAL SIGNS MEDICATIONS Medication Instructions Dosage Frequency Start Date End Date Duration Status Levemir FlexTouch 100 UNIT/ML Subcutaneous BID 20 units 12h Active Arginine 2000 MG Orally TID 2,000 mg 8h Active Alavert 10 MG Orally Once a day 1 tablet on the tongue and allow to dissolve 24h Active HydrALAZINE HCl 25 MG Orally Three times a day 1 tablet with food 8h Active NovoLog Flexpen 100 UNIT/ML Subcutaneous 3 times a day before meals 9 units Active Fish Oil 1000 MG Orally 3 times a day 1 capsule 8h Active Aspirin 81 MG Orally Once a day 1 tablet 24h Active Acetaminophen 325 MG Orally every 6 hrs 2 tablets as needed 6h Nov, 14 days Active Nystatin [id number] UNIT/GM Externally Twice a day till healed 1 application to affected area Nov, Active Multivitamins - Orally Once a day 1 capsule 24h Active Torsemide 20 mg Orally 2 times a day 1 tablet 12h Active Magnesium Oxide 250 MG Orally Once a day 1 tablet as needed 24h Active Simbrinza 1-0.2 % Ophthalmic Three times a day 1 drop into affected eye 8h Active Rosuvastatin Calcium 20 MG Orally Once a day 1 tablet 24h Active Gabapentin 100 MG Orally Three times a day 1 capsule 8h Active Clonidine HCl 0.3 MG Orally Twice a day 1 tablet 12h Active Pyridium 200 mg Orally every 8 hours, PRN 1 tablet after meals Nov, Active Vitamin D3 5000 UNIT Orally Once a day at hs 1 capsule Active Morphine Sulfate (Concentrate) 20 MG/ML Orally every 1 hr, prn pain 0.25-0.5 ml Nov, Active RESULTS No Results PROCEDURES Procedure Date Ordered Result Body Site Minor complication (15 mins) November 28, 2017 INSTRUCTIONS MEDICATIONS ADMINISTERED No Known Medications [...]
--- OUTSIDE RECORDS SUMMARY | 2018-04-22 23:04 | XMS REPORT ---
Author Author CARLOS LARA [facility] Address [address] [place] [address] Care Team Providers Care Duct Layer Name Role Phone CARLOS LARA Unavailable PROBLEMS Type Condition ICD9-CM Code ROG65-OA Code Onset Dates Condition Status SNOMED Code Problem Iron deficiency anemia, unspecified iron deficiency anemia type D50.9 Active 47225993 Problem Mixed hyperlipidemia E78.2 Active 358787685 Problem Decreased diffusion capacity R94.2 Active 65864532 Problem Severe sleep apnea G47.30 Active 58072719 Problem Stenosis of carotid artery, unspecified laterality I65.29 Active 89984756 Problem Coronary artery disease involving [place] coronary artery of [place] heart, angina presence unspecified I25.10 Active [id number] Problem Generalized osteoarthritis M15.9 Active 877244601 Problem Aortic valve sclerosis I35.8 Active 36862481 Problem Essential hypertension I10 Active 32250832 Problem Transient cerebral ischemia, unspecified type G45.9 Active 974925991 Problem Renal osteodystrophy N25.0 Active 43343402 Problem Anxiety about health F41.8 Active 981814434 Problem 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 Active 9784741 Problem Type 2 diabetes mellitus with unspecified complications E11.8 Active 20959959 Problem FDC 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.4 Active 667264245 Problem Chronic kidney disease, unspecified CKD stage N18.9 Active 657685467 Problem Inability to bear weight R26.89 Active 509074480 Problem Chronic kidney disease (CKD), stage 4 (severe) N18.4 Active 354739800 Problem Type 2 diabetes mellitus with foot ulcer E11.621 Active 896220834 Problem Type 2 diabetes mellitus with hyperglycemia E11.65 Active 06190820 Problem Type 2 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 Active 67794818 Problem Bladder spasms N32.89 Active 212265169 Problem Pain R52 Active 92053908 Problem Other chronic pain G89.29 Active 14429815 Problem Slow transit constipation K59.01 Active 59752140 Problem Chronic kidney disease, stage 3 (moderate) N18.3 Active 571824107 Problem Diarrhea, unspecified type R19.7 Active 53430806 Problem Type 2 diabetes mellitus with diabetic polyneuropathy E11.42 Active 051627012 Problem Anemia in other chronic diseases classified elsewhere D63.8 Active 138324515 Problem BMI 50.0-59.9, adult Z68.43 Active 317486278 Problem Port catheter in place Z95.828 Active 433664345 Problem Trochanteric bursitis of left hip M70.62 Active 048813632899400 Problem Hypoxemia R09.02 Active 642860552 ALLERGIES No Information ENCOUNTERS Encounter Location Date Diagnosis [place] [address] [address] Jan, Inability to bear weight R26.89 [facility] [address] [place] [id number] Dec, Low back pain M54.5 ; Other chronic pain G89.29 and Chronic kidney disease (CKD), stage 4 (severe) N18.4 [place] [address] [place] [id number] [place] [address] 45436- 0067 Dec, Type 2 diabetes mellitus with hyperglycemia E11.65 [place] [address] [place] [id number] [place] [address] 60944- 1725 Dec, [facility] [address] [place] [id number] Dec, Type 2 diabetes mellitus with hyperglycemia E11.65 ; Essential hypertension I10 ; Generalized osteoarthritis M15.9 ; Mixed hyperlipidemia E78.2 ; Hypoxia R09.02 ; Port catheter in place Z95.828 ; Anemia due to acute blood loss D62 ; Chronic kidney disease, unspecified CKD stage N18.9 and Severe sleep apnea G47.30 [place] [address] [address] [id number] [place] [address] 67643- 1395 Dec, Type 2 diabetes mellitus with hyperglycemia E11.65 [place] [address] 17919- 7386 Dec, [facility] [address] [place] [address] 66933- 8788 Dec, Type 2 diabetes mellitus with hyperglycemia E11.65 [facility] [address] [place] [address] [id number] [place] [address] 72597- 2518 Dec, Left leg pain M79.605 [facility] [address] [id number] [place] [address] 86497- 8708 Nov, Slow transit constipation K59.01 [facility] [address] [id number] [place] [address] 34179- 7882 Nov, [facility] [address] [place] [id number] Nov, Anemia due to acute blood loss D62 [facility] [address] [address] [id number] [place] [address] 98667- 2281 Nov, [facility] [id number] [place] [address] 22390- 4649 Nov, Bladder spasms N32.89 [facility] [id number] [place] [address] 88438- 9815 Nov, Pain R52 [facility] [address] [place] [id number] Nov, Anemia due to acute blood loss D62 [facility] [id number] [place] [address] 26091- 4027 Nov, Pain in right hip M25.551 and Pain in left hip M25.552 [facility] [address] [address] 0506 Nov, [facility] [address] [address] [id number] [place] [address] 40933- 4383 Nov, [facility] [address] [id number] [address] 3406 Nov, [facility] [address] [place] [address] 17377- 5440 Nov, [place] [id number] [place] [address] 01869- 2027 Oct, [facility] [address] [place] [id number] [place] [address] 26960- 1549 Oct, [facility] [address] [id number] 26 Oct, 2017 Encounter for examination for admission to correction Z02.2 ; Chronic kidney disease, unspecified CKD stage N18.9 ; Type 2 diabetes mellitus with unspecified complications E11.8 ; 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 ; Essential hypertension I10 ; Hypoxia R09.02 ; Severe sleep apnea G47.30 ; Stenosis of carotid artery, unspecified laterality I65.29 ; Generalized osteoarthritis M15.9 ; Coronary artery disease involving [place] coronary artery of [place] heart, angina presence unspecified I25.10 ; Port catheter in place Z95.828 and Hemorrhoids, unspecified hemorrhoid type K64.9 [place] [address] [address] [id number] [place] [address] 31130- 6094 Oct, [facility] [address] [place] [id number] [place] [address] 94959- 6311 Oct, [place] [address] [address] [id number] [place] [address] 42074- 7654 Oct, [place] [address] [place] [address] [id number] [place] [address] 17947- 6421 Oct, [facility] [address] [place] [address] 29415 -6182 September, BMI 50.0-59.9, adult Z68.43 [facility] [address] [place] [id number] [place] [address] 63533- 3409 September, [facility] [address] [place] [id number] [place] [address] 24110- 3018 September, [facility] [address] [place] [id number] [place] [address] 34298- 5696 Aug, Type 2 diabetes mellitus with foot ulcer E11.621 ; Transient cerebral ischemia, unspecified type G45.9 ; Essential hypertension I10 ; Mixed hyperlipidemia E78.2 and BMI 50.0-59.9, adult Z68.43 [place] [address] [address] [id number] [place] [address] 43740- 1277 17 Aug, 2017 [place] [address] [address] [id number] [place] [address] 47532- 1257 14 Jul, 2017 Anxiety about health F41.8 and Mixed hyperlipidemia E78.2 [place] [address] 10994- 2564 13 Jul, 2017 [place] [address] 36828- 7928 Jun, [place] [address] [place] [id number] [place] [address] 46664- 1103 12 Jun, 2017 Type 2 diabetes mellitus with hyperglycemia E11.65 ; Type 2 diabetes mellitus with foot ulcer E11.621 ; Port catheter in place Z95.828 ; 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 ; Contact with and (suspected) exposure to potentially hazardous body fluids Z77.21 and BMI 50.0-59.9, adult Z68.43 [place] [address] [place] [id number] [place] [address] 44627- 4482 May, [place] [address] [address] [id number] [place] [address] 28591- 1919 May, Open wound of right great toe, subsequent encounter S91.101D [place] [address] [address] [id number] [place] [address] 11841- 0933 May, [place] [address] [place] [id number] [place] [address] 59406- 7273 Apr, [place] [address] 34061- 4771 Apr, [place] [address] [place] [id number] [place] [address] 81542- 7806 Apr, [place] [address] [place] [address] 03028- 4931 14 Apr, 2017 Type 2 diabetes mellitus with diabetic polyneuropathy E11.42 [place] [address] [id number] [place] [address] 20398- 7772 13 Apr, 2017 Open wound of right great toe, subsequent encounter S91.101D [address] 09779- 0330 08 Apr, 2017 Open wound of right great toe, subsequent encounter S91.101D ; Breast pain, left N64.4 ; Breast cancer screening Z12.31 ; Type 2 diabetes mellitus with foot ulcer E11.621 ; Essential hypertension I10 and BMI 50.0-59.9, adult Z68.43 [place] [id number] [place] [address] 85605- 6616 29 Mar, 2017 Encounter for immunization Z23 [place] [id number] [place] [address] 52630- 4058 19 Mar, 2017 [place] [id number] [place] [address] 14740- 8148 13 Mar, 2017 [place] [id number] [place] [address] 26829- 3799 10 Mar, 2017 Type 2 diabetes mellitus with diabetic polyneuropathy E11.42 ; Type 2 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 ; Type 2 diabetes mellitus with foot ulcer E11.621 ; Essential hypertension I10 ; Hypoxemia R09.02 and Generalized osteoarthritis M15.9 [place] [id number] [place] [address] 90479- 3572 02 Mar, 2017 Chronic kidney disease, stage 3 (moderate) N18.3 ; Acute cystitis without hematuria N30.00 ; Essential hypertension I10 ; Muscle spasms of neck M62.838 ; Type 2 diabetes mellitus with diabetic polyneuropathy E11.42 and BMI 50.0-59.9, adult Z68.43 [place] [address] [place] [id number] [place] [address] 74348- 7603 30 Feb, [address] [facility] [address], [place] [address] Feb, [facility] [address] [place] [id number] [address] 6905 Feb, [facility] [address], [place] [address]- 5953 Feb, [facility] [address] [place] [id number] [place] [address] 98514- 9671 Feb, [facility] [address] [place] [id number] [place] [address] 75543- 2260 Feb, [facility] [address] [place] [address] [id number] [place] [address] 57844- 4937 Feb, Mixed hyperlipidemia E78.2 [facility] [address] [address] [id number] [address]- 0760 Feb, [facility] [address] [id number] [place] [address]- 8680 Jan, [facility] [address], [place] [address]- 2572 Jan, Generalized osteoarthritis M15.9 [facility] [address], [place] [address]- 3573 Oct, [facility] [address], [place] [address]- 9271 Jul, [facility] [address], [place] [address]- 6258 13 Jul, 2016 [facility] [address], [place] [address]- 6081 02 Jul, 2017 Type 2 diabetes mellitus with hyperglycemia E11.65 ; Chronic kidney disease, stage 3 (moderate) N18.3 ; Type 2 diabetes mellitus with foot ulcer E11.621 ; Type 2 diabetes mellitus with diabetic polyneuropathy E11.42 ; Generalized osteoarthritis M15.9 ; Trochanteric bursitis of left hip M70.62 and Tinea pedis of both feet B35.3 [place] [address] [place] [address] 83302- 7179 13 Jun, 2016 [facility] [address] [place] [id number] [place] [address] 13142- 8772 Apr, [facility] [address] [place] [id number] [place] [address] 51940- 5440 Apr, [facility] [address] [place] [id number] [place] [address] 80761- 3923 Mar, [place] [address] [place] [address] [id number] [place] [address] 99249- 4904 Feb, Encounter for immunization Z23 [place] [address] [place] [address] [id number] [place] [address] 27718- 2329 Feb, [place] [address] [place] [id number] [place] [address] 77864- 3360 Feb, Type 2 diabetes mellitus with hyperglycemia E11.65 ; Encounter for immunization Z23 ; Diarrhea, unspecified type R19.7 ; Essential hypertension I10 ; Mixed hyperlipidemia E78.2 ; Hypoxia R09.02 ; 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 and Type 2 diabetes mellitus with foot ulcer E11.621 [place] [address] [place] [address] 21026- 1503 Jan, [place] [address] [place] [id number] [place] [address] 19699- 0354 Jan, Type 2 diabetes mellitus with hyperglycemia E11.65 and Pneumonia due to infectious organism, unspecified laterality, unspecified part of lung J18.9 [place] [address] [place] [address] 42428- 0687 Jan, [place] [address] [place] [id number] [place] [address] 14718- 0642 Jan, [facility] [address] [place] [id number] [place] [address] 09897- 9244 Oct, Type 2 diabetes mellitus with hyperglycemia E11.65 ; Generalized osteoarthritis M15.9 and Chronic prescription opiate use Z79.891 [facility] [address] [place] [address] 34579- 8243 September, [facility] [address] [place] [id number] [place] [address] 14399- 9973 Aug, [facility] [address] [place] [id number] [place] [address] 81330- 2140 Aug, [facility] [address] [place] [id number] [place] [address] 14424- 9116 Aug, [facility] [address] [place] [id number] [place] [address] 15922- 7901 Aug, [facility] [address] [place] [id number] [place] [address] 59733- 1744 Jun, [facility] [address] [place] [id number] [place] [address] 41194- 9732 Jun, Type 2 diabetes mellitus with hyperglycemia E11.65 ; Mixed hyperlipidemia E78.2 ; Vaginal itching L29.8 ; Neck muscle spasm M62.838 and Skin abrasion T14.8 [facility] [address] [place] [address] 42701- 9282 Apr, [facility] [address] [address] [address]- 0419 Apr, [facility] [address] [place] [id number] [place] [address] 61658- 3732 Mar, [facility] [address] [place] [address] 81258- 0171 Feb, [facility] [address] [place] [id number] [place] [address] 25050- 5775 Feb, Type 2 diabetes mellitus with hyperglycemia E11.65 ; Type 2 diabetes mellitus with foot ulcer E11.621 ; Type 2 diabetes mellitus with diabetic polyneuropathy E11.42 and Encounter for immunization Z23 [facility] [address] [place] [id number] [address] 3503 Jan, Hypertension 401.9 ; Uncontrolled type 2 diabetes mellitus 250.02 ; Right shoulder pain 719.41 and Ulcer of heel and midfoot 707.14 [facility] [address] [id number] [address]- 5981 Dec, Diabetes with other specified manifestations, type II or unspecified type, not stated as uncontrolled 250.80 ; Ulcer of heel and midfoot 707.14 ; Hypertension 401.9 ; Hip pain, left 719.45 and Acute anxiety 300.00 [facility] [address] [place] [id number] [place] [address] 08336- 6291 Nov, [facility] [address] [place] [id number] [place] [address] 10727- 4105 Nov, [facility] [address] [place] [id number] [place] [address] 83173- 1826 September, Anxiety attack 300.01 and Cellulitis 682.9 [facility] [address] [place] [id number] [place] [address] 68520- 3738 September, [facility] [address] [place] [id number] [place] [address] 49153- 6526 September, [facility] [address], [place] [address]- 1263 September, [facility] [address], [place] [address]- 9303 Aug, [facility] [address], [place] [address]- 0453 Aug, [facility] [address] [place] [id number] [place] [address] [id number]- 2665 Jul, [facility] [address] [address]- 7478 Jul, [facility] [address] [place] [address] [id number]- 7805 Jul, [facility] [place] [facility] [address] [id number] [place] [address]- 0619 May, [facility] [place] [facility] [address] [id number] [place] [address]- 1442 May, [facility] [place] [facility] [address] [id number] [place] [address]- 3855 Mar, [facility] [place] [facility] [address] [id number] [place] [address]- 6188 Mar, [facility] [place] [facility] [address] [id number] [place] [address]- 0005 Mar, [facility] [place] [facility] [address] [id number] [place] [address]- 3170 Mar, [facility] [place] [facility] [address] [id number] [place] [address]- 6661 Mar, [facility] [place] [facility] [address] [id number] [place] [address]- 5832 Mar, [facility] [place] [facility] [address] [id number] [place] [address]- 5142 Mar, [facility] [place] [facility] [address] [id number] [place] [address]- 6355 Feb, [facility] [place] [facility] [address] [id number] [place] [address]- 1743 Feb, [facility] [place] [facility] [address] [id number] [place] [address]- 1752 30 Jan, 2014 [facility] [place] [facility] [address] [id number] [place] [address]- 1215 30 Jan, 2014 [facility] [place] [facility] [address] [id number] [place] [address]- 1321 Jan, [facility] [place] [facility] [address] [id number] [place] [address]- 9475 Jan, [facility] [place] [facility] [address] [id number] [place] [address]- 8874 25 Sep, 2013 [facility] [place] [facility] [address] [id number] [place] [address] 2546 25 Sep, 2013 [facility] [place] [facility] [address] [id number] [place] [address] 2546 25 Sep, 2013 [facility] [place] [facility] [address] [id number] [place] [address] 2549 25 Sep, 2013 [facility] [place] [facility] [address] [id number] [place] [address] 2547 18 Sep, 2013 [facility] [place] [facility] [address] [id number] [place] [address]- 0811 18 Sep, 2013 [facility] [place] [facility] [address] [id number] [place] [address]- 9880 06 Sep, 2013 [facility] [place] [facility] [address] [id number] [place] [address]- 0153 06 Sep, 2013 [facility] [place] [facility] [address] [id number] [place] [address]- 8575 05 Sep, 2013 [facility] [place] [facility] [address] [id number] [place] [address] 2547 05 Sep, 2013 [facility] [place] [facility] [address] [id number] [place] [address] 2547 05 Sep, 2013 [facility] [place] [facility] [address] [id number] [place] [address] 2540 05 Sep, 2013 [facility] [place] [facility] [address] [id number] [address]- 2545 05 Sep, 2013 [facility] [place] [facility] [address] [id number] [place] [address] 2549 05 Sep, 2013 [facility] [place] [facility] [address] [id number] [place] [address]- 7794 Dec, [facility] [place] [facility] [address] [id number] [place] [address]- 6540 Dec, [facility] [place] [facility] [address] [id number] [place] [address]- 9534 Dec, 2013 [facility] [place] [facility] [address] [id number] [place] [address]- 6671 Dec, [facility] [place] [facility] [address] [id number] [place] [address]- 5982 Dec, [facility] [place] [facility] [address] [id number] [place] [address]- 0515 Dec, 2013 [facility] [place] [facility] [address] [id number] [place] [address]- 6203 Dec, 2013 [facility] [place] [facility] [address] [id number] [place] [address]- 3969 Dec, [facility] [place] [facility] [address] [id number] [place] [address]- 4036 Dec, [facility] [place] [facility] [address] [id number] [place] [address]- 4846 Dec, [facility] [place] [facility] [address] [id number] [place] [address]- 2795 Nov, [facility] [place] [facility] [address] [id number] [place] [address]- 9839 Nov, [facility] [place] [facility] [address] [id number] [place] [address]- 8235 Nov, [facility] [place] [facility] [address] [id number] [place] [address]- 8910 Nov, [facility] [place] [facility] [address] [id number] [place] [address]- 0800 Nov, [facility] [place] [facility] [address] [id number] [place] [address]- 0368 Nov, [facility] [place] [facility] [address] [id number] [place] [address]- 4452 Oct, [facility] [place] [facility] [address] [id number] [place] [id number] Oct, [facility] [place] [facility] [address] [id number] [place] [address] Oct, [facility] [place] [facility] [address] [id number] [place] [address] Oct, [facility] [place] [facility] [address] [id number] [place] [address] Oct, [facility] [place] [facility] [address] [id number] [place] [address] Oct, [facility] [place] [facility] [address] [id number] [place] [address] Oct, [facility] [place] [facility] [address] [id number] [place] [address] Oct, [facility] [place] [facility] [address] [id number] [place] [address] Oct, [facility] [place] [facility] [address] [id number] [place] [address] Oct, [facility] [place] [facility] [address] [id number] [place] [address] Oct, [facility] [place] [facility] [address] [id number] [place] [address] Oct, [facility] [place] [facility] [address] [id number] [place] [address] September, [facility] [place] [facility] [address] [id number] [place] [address] September, [facility] [place] [facility] [address] [id number] [place] [address] September, [facility] [place] [facility] [address] [id number] [place] [address] Aug, [facility] [place] [facility] [address] [id number] [place] [address] Aug, [facility] [place] [facility] [address] [id number] [place] [address] 13 Jul, 2013 [facility] [place] [facility] [address] [id number] [place] [address] Jul, [facility] [place] [facility] [address] [id number] [place] [address] Jul, [facility] [place] [facility] [address] [id number] [place] [address] Jul, [facility] [place] [facility] [address] [id number] [place] [address] Jul, [facility] [place] [facility] [address] [id number] [place] [address] 66[address] Jul, [facility] [place] [facility] [address] [id number] [place] [address] 0068 Jul, [facility] [place] [facility] [address] [id number] [place] [address] 3930 Jul, [facility] [place] [facility] [address] [id number] [place] [address] 0139 Jul, [facility] [place] [facility] [address] [id number] [place] [address] 5388 Jul, [facility] [place] [facility] [address] [id number] [place] [address] 0871 Jun, [facility] [place] [facility] [address] [id number] [place] [address]- 6622 Jun, [facility] [place] [facility] [address] [id number] [place] [address]- 8977 Jun, [facility] [place] [facility] [address] [id number] [place] [address]- 0338 Jun, [facility] [place] [facility] [address] [id number] [place] [address] 5814 May, [facility] [place] [facility] [address] [id number] [place] [address]- 4776 May, [facility] [place] [facility] [address] [id number] [place] [address]- 4707 Apr, [facility] [address] [id number] [place] [address]- 7679 Apr, [facility] [address] [id number] [place] [address]- 2077 Apr, [facility] [place] [facility] [address] [id number] [place] [address] Apr, [facility] [address] [id number] [place] [address]- 2952 Apr, [facility] [address] [id number] [place] [address]- 9946 Apr, [facility] [address] [id number] [place] [address] 2640 Apr, [facility] [address] [id number] [place] [address]- 1085 Apr, [facility] [address] [id number] [place] [address]- 0779 Mar, [facility] [address] [id number] [place] [address]- 1519 Mar[facility] [place] [facility] [address] [id number] [place] [address]- 4631 Mar, [facility] [place] [facility] [address] [id number] [address] Mar, [facility] [place] [facility] [address] [id number] [place] [address]- 7371 Mar, [facility] [place] [facility] [address] [id number] [place] [address]- 7418 Mar, [facility] [place] [facility] [address] [id number] [place] [address] 1749 Feb, [facility] [place] [facility] [address] [id number], [place] [address] 30 Feb, 2013 [facility] [place] [facility] [address] [id number] [place] [address]- 7582 18 Feb, 2013 [facility] [place] [facility] [address] [id number] [place] [address]- 8772 18 Feb, 2013 [facility] [place] [facility] [address] [id number] [place] [address]- 6862 14 Feb, 2013 [facility] [place] [facility] [address] [id number] [place] [address]- 0751 14 Feb, 2013 [facility] [place] [facility] [address] [id number] [place] [address] 04 Feb, 2013 [facility] [place] [facility] [address] [id number] [place] [address]- 7435 27 Jan, 2013 [facility] [place] [facility] [address] [id number] [place] [address]- 6526 26 Jan, 2013 [facility] [place] [facility] [address] [id number] [place] [address]- 9296 19 Jan, 2013 [facility] [place] [facility] [address] [id number] [place] [address]- 9448 05 Jan, 2013 [facility] [place] [facility] [address] [id number] [place] [address]- 7748 Dec, [facility] [place] [facility] [address] [id number] [place] [address]- 7020 Dec, [facility] [place] [facility] [address] [id number] [place] [address]- 2461 Dec, [facility] [place] [facility] [address] [id number] [place] [address]- 3515 Nov, [facility] [place] [facility] [address] [id number] [place] [address]- 6144 Nov, [facility] [place] [facility] [address] [id number] [place] [address]- 6600 Nov, [facility] [place] [facility] [address] [id number] [place] [address]- 6830 10 Nov, 2012 [facility] [address] [id number] [place] [address]- 0891 Nov, [facility] [address] [id number] [place] [address]- 5616 Nov, [facility] [address] [id number] [place] [address]- 8676 Oct, [facility] [address] [id number] [place] [address]- 3358 Oct, [facility] [address] [id number] [place] [address]- 8149 Oct, [facility] [address] [id number] [place] [address]- 6291 Oct, [facility] [address] [id number] [place] [address]- 4248 Oct, [facility] [address] [id number] [place] [address]- 9787 Oct, [facility] [address] [id number] [place] [address]- 7662 September, [facility] [address] [id number] [place] [address]- 6100 September, [facility] [address] [id number] [place] [address]- 5931 September, [facility] [address] [id number] [place] [address]- 7624 September, [facility] [address] [id number] [place] [address]- 8030 Aug, [facility] [address] [id number] [place] [address]- 9296 Aug, [facility] [address] [id number] [place] [address]- 7626 Jul, [facility] [address] [id number] [place] [address]- 5458 21 Jul, 2012 [facility] [place] [facility] [address] [id number] [place] [address]- 8226 18 Jul, 2012 [facility] [place] [facility] [address] [id number] [place] [address]- 2056 15 Jul, 2012 [facility] [place] [facility] [address] [id number] [place] [address]- 9452 13 Jul, 2012 [facility] [address] [id number] [place] [address]- 4622 08 Jul, 2012 [facility] [place] [facility] [address] [id number] [place] [address]- 4324 20 Jun, 2012 [facility] [place] [facility] [address] [id number] [place] [address]- 4095 13 Jun, 2012 [facility] [place] [facility] [address] [id number] [place] [address]- 2518 17 May, 2012 [facility] [address] [id number] [place] [address]- 1453 04 May, 2012 [facility] [address] [id number] [place] [address]- 9113 18 Apr, 2012 [facility] [place] [facility] [address] [id number] [place] [address]- 5407 18 Apr, 2012 [facility] [place] [facility] [address] [id number] [place] [address]- 9682 13 Apr, 2012 [facility] [place] [facility] [address] [id number] [place] [address]- 7271 13 Apr, 2012 [facility] [place] [facility] [address] [id number] [place] [address]- 6442 10 Apr, 2012 [facility] [place] [facility] [address] [id number] [place] [address]- 0462 10 Apr, 2012 [facility] [place] [facility] [address] [id number] [place] 07 Apr, 2012 [facility] [place] [facility] [address] [id number] [place] [address]- 6592 Apr, [facility] [place] [facility] [address] [id number] [place] Apr, [facility] [place] [facility] [address] [id number] [place] [address]- 7936 Apr, [facility] [place] [facility] [address] [id number] [place] [address]- 3776 Apr, [facility] [place] [facility] [address] [id number] [place] [address]- 1834 Apr, [facility] [place] [facility] [address] [id number] [place] [address]- 4180 Apr, [facility] [place] [facility] [address] [id number] [place] [address]- 9753 Apr, [facility] [place] [facility] [address] [id number] [place] [address]- 2000 Apr, [facility] [place] [facility] [address] [id number] [place] [address]- 6114 Apr, [facility] [place] [facility] [address] [id number] [place] [address]- 8006 Mar, [facility] [place] [facility] [address] [id number] [place] [address]- 3366 Mar, [facility] [place] [facility] [address] [id number], [place] [address]- 7006 Mar, [facility] [place] [facility] [address] [id number] [place] [address]- 4789 Mar, [facility] [place] [facility] [address] [id number] [place] [address]- 3851 Mar, [facility] [place] [facility] [address] [id number], [place] [address]- 5438 Mar, [facility] [place] [facility] [address] [id number] [place] [address]- 2542 Mar, [facility] [place] [facility] [address] [id number] [place] [address]- 8077 Mar, [facility] [place] [facility] [address] [id number] [place] [address]- 5976 Mar, [facility] [place] [facility] [address] [id number] [place] [address]- 0681 Mar, [facility] [place] [facility] [address] [id number] [place] [address]- 2106 Feb, [facility] [place] [facility] [address] [id number] [place] [address]- 7773 Feb, [facility] [place] [facility] [address] [id number] [place] [address]- 8574 Feb, [facility] [place] [facility] [address] [id number] [place] [address]- 8295 Feb, [facility] [place] [facility] [address] [id number] [place] [address]- 5009 Feb, [facility] [place] [facility] [address] [id number] [place] [address]- 3406 Feb, [facility] [place] [facility] [address] [id number] [place] [address]- 8304 Jan, [facility] [place] [facility] [address] [id number] [place] [address]- 7142 Dec, [facility] [place] [facility] [address] [id number] [place] [address]- 9969 Dec, [facility] [place] [facility] [address] [id number] [place] [address]- 3223 Dec, [facility] [place] [facility] [address] [id number] [place] [address]- 0456 Dec, [facility] [place] [facility] [address] [id number] [place] [address]- 7436 Nov, [facility] [place] [facility] [address] [id number] [place] [address]- 5106 Nov, [facility] [place] [facility] [address] [id number] [place] [address]- 9066 Nov, [facility] [place] [facility] [address] [id number] [place] [address]- 9698 Nov, [facility] [place] [facility] [address] [id number] [place] [address]- 6307 Oct, [facility] [place] [facility] [address] [id number] [place] [address]- 4367 Oct, [facility] [place] [facility] [address] [id number] [place] [address]- 3473 Oct, [facility] [place] [facility] [address] [id number] [place] [address]- 5407 Oct, [facility] [place] [facility] [address] [id number] [place] [address]- 6797 Oct, [facility] [place] [facility] [address] [id number] [place] [address]- 6538 September, [facility] [place] [facility] [address] [id number] [place] [address]- 8149 September, [facility] [place] [facility] [address] [id number] [place] [address]- 8002 September, [facility] [place] [facility] [address] [id number] [place] [address]- 2300 September, [facility] [place] [facility] [address] [id number] [place] [address]- 9823 September, [facility] [place] [facility] [address] [id number] [place] [address]- 8727 September, [facility] [place] [facility] [address] [id number] [place] [address]- 9586 September, [facility] [place] [facility] [address] [id number] [place] [address]- 1151 September, [facility] [address] [id number] [place] [address]- 2135 Aug, [facility] [address] [id number] [place] [address]- 3160 Aug, [facility] [address] [id number] [place] [address]- 8620 Aug, [facility] [address] [id number] [place] [address]- 6147 Aug, [facility] [address] [id number] [place] [address]- 7714 18 Aug, 2011 [facility] [address] [id number] [place] [address]- 7763 17 Aug, 2011 [facility] [address] [id number] [place] [address]- 2317 Aug, [facility] [address] [id number] [place] [address]- 8783 Aug, [facility] [address] [id number] [place] [address]- 1877 Aug, [facility] [address] [id number] [place] [address]- 0450 Aug, [facility] [address] [id number] [place] [address]- 1413 Aug, [facility] [address] [id number] [place] [address]- 9144 Aug, [facility] [address] [id number] [place] [address]- 2975 29 Jul, 2011 [facility] [address] [id number] [place] [address]- 7983 Jul, [facility] [address] [id number] [place] [address]- 5581 Jul, [facility] [place] [facility] [address] [id number] [place] [address]- 1652 23 Jul, 2011 [facility] [place] [facility] [address] [id number] [place] [address]- 7196 Jul, [facility] [place] [facility] [address] [id number] [place] [address]- 6246 21 Jul, 2011 [facility] [place] [facility] [address] [id number] [place] [address]- 4006 14 Jul, 2011 [facility] [place] [facility] [address] [id number] [place] [address]- 9489 13 Jul, 2011 [facility] [place] [facility] [address] [id number] [place] [address]- 5316 07 Jul, 2011 [facility] [place] [facility] [address] [id number] [place] [address]- 2485 24 Jun, 2011 [facility] [place] [facility] [address] [id number] [place] [address]- 7005 Jun, [facility] [place] [facility] [address] [id number] [place] [address]- 3396 Jun, [facility] [place] [facility] [address] [id number] [place] [address]- 9751 14 Jun, 2011 [facility] [place] [facility] [address] [id number] [place] [address]- 5866 Jun, [facility] [place] [facility] [address] [id number] [place] [address]- 4696 Jun, [facility] [place] [facility] [address] [id number] [place] [address]- 7726 Jun, [facility] [place] [facility] [address] [id number] [place] [address]- 9176 May, [facility] [place] [facility] [address] [id number] [place] [address]- 6706 May, [facility] [place] [facility] [address] [id number] [place] [address]- 0849 May, [facility] [address] [id number] [place] [address]- 5774 May, [facility] [address] [id number] [place] [address]- 5376 May, [facility] [address] [id number] [place] [address]- 7026 May, [facility] [address] [id number] [place] [address]- 0534 May, [facility] [address] [id number] [place] [address]- 0495 Apr, [facility] [address] [id number] [place] [address]- 5255 Apr, [facility] [address] [id number] [place] [address]- 2275 Apr, [facility] [address] [id number] [place] [address]- 6424 Apr, [facility] [address] [id number] [place] [address]- 3592 Apr, [facility] [address] [id number] [place] [address]- 4378 Apr, [facility] [address] [id number] [place] [address]- 8397 Apr, [facility] [address] [id number] [place] [address]- 9546 Apr, [facility] [address] [id number] [place] [address]- 1804 05 Apr, 2011 [facility] [address] [id number] [place] [address]- 4354 Mar, [facility] [address] [id number] [place] [address]- 3517 Mar, [facility] [address] [id number] [place] [address]- 1503 Mar, [facility] [place] [facility] [address] [id number] [place] [address]- 2766 Mar, [facility] [place] [facility] [address] [id number] [place] [address] 2542 Mar, [facility] [place] [facility] [address] [id number] [place] [address]- 5536 Feb, [facility] [place] [facility] [address] [id number] [place] [address]- 5860 Feb, [facility] [place] [facility] [address] [id number] [place] [address]- 2822 Feb, [facility] [place] [facility] [address] [id number] [place] [address]- 1551 Dec, [facility] [place] [facility] [address] [id number] [place] [address]- 9226 Nov, [facility] [place] [facility] [address] [id number] [place] [address]- 5567 Apr, [facility] [place] [facility] [address] [id number] [place] [address] Apr, [facility] [place] [facility] [address] [id number] [place] [address]- 3660 16 Apr, 2010 [facility] [place] [facility] [address] [id number], [place] [address]- 4579 13 Apr, 2010 [facility] [place] [facility] [address] [id number] [place] [address]- 1202 Apr, [facility] [place] [facility] [address] [id number] [place] [address] Apr, [facility] [place] [facility] [address] [id number] [place] [address] Apr, [facility] [place] [facility] [address] [id number], [place] [address] Apr, [facility] [id number] [address] Mar, [facility] [id number] [address] Mar, [facility] [id number] [address] Mar, [facility] [id number] [place] [address] Mar, [facility] [id number] [place] [address] Mar, [facility] [id number] [place] [address] Mar, [facility] [id number] [place] [address] Mar, [facility] [id number] [address] Mar, [facility] [id number] [address] Mar, [facility] [id number] [address] Mar, IMMUNIZATIONS No Known Immunizations SOCIAL HISTORY Never Assessed REASON FOR VISIT DC iron infusions PLAN OF CARE VITAL SIGNS MEDICATIONS Unknown [...]
--- OUTSIDE RECORDS SUMMARY | 2018-04-22 23:05 | XMS REPORT ---
Author Author CARLOS LARA 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 Mechanic Name Role Phone CARLOS LARA Unavailable PROBLEMS Type Condition ICD9-CM Code KHO86-HO Code Onset Dates Condition Status SNOMED Code Problem Iron deficiency anemia, unspecified iron deficiency anemia type D50.9 Active 37241099 Problem Mixed hyperlipidemia E78.2 Active 836403116 Problem Decreased diffusion capacity R94.2 Active 87559109 Problem Severe sleep apnea G47.30 Active 94732024 Problem Stenosis of carotid artery, unspecified laterality I65.29 Active 65979915 Problem Coronary artery disease involving [place] coronary artery of [place] heart, angina presence unspecified I25.10 Active 1579877612302 Problem Generalized osteoarthritis M15.9 Active 946191919 Problem Aortic valve sclerosis I35.8 Active 15072718 Problem Essential hypertension I10 Active 92077719 Problem Transient cerebral ischemia, unspecified type G45.9 Active 220812196 Problem Renal osteodystrophy N25.0 Active 55661426 Problem Anxiety about health F41.8 Active 558290456 Problem 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 Active 29655940 Problem Bladder spasms N32.89 Active 264190837 Problem Pain R52 Active 87951444 Problem Other chronic pain G89.29 Active 05737933 Problem Slow transit constipation K59.01 Active 97283964 Problem Chronic kidney disease, stage 3 (moderate) N18.3 Active 553435077 Problem Diarrhea, unspecified type R19.7 Active 70516328 Problem Type 2 diabetes mellitus with diabetic polyneuropathy E11.42 Active 090694234 Problem Anemia in other chronic diseases classified elsewhere D63.8 Active 961748618 Problem BMI 50.0-59.9, adult Z68.43 Active 005527370 Problem Port catheter in place Z95.828 Active 431427252 Problem Trochanteric bursitis of left hip M70.62 Active 772326087545148 Problem Hypoxemia R09.02 Active 039148358 ALLERGIES No Information ENCOUNTERS Encounter Location Date Diagnosis [place] [address] [address] Jan, Inability to bear weight R26.89 [facility] [address] [place] [id number] Dec, Low back pain M54.5 ; Other chronic pain G89.29 and Chronic kidney disease (CKD), stage 4 (severe) N18.4 [place] [address] [place] [id number] [place] [address] 27706- 4546 Dec, Type 2 diabetes mellitus with hyperglycemia E11.65 [place] [address] [place] [id number] [place] [address] 14922- 0353 Dec, [facility] [address] [place] [id number] Dec, Type 2 diabetes mellitus with hyperglycemia E11.65 ; Essential hypertension I10 ; Generalized osteoarthritis M15.9 ; Mixed hyperlipidemia E78.2 ; Hypoxia R09.02 ; Port catheter in place Z95.828 ; Anemia due to acute blood loss D62 ; Chronic kidney disease, unspecified CKD stage N18.9 and Severe sleep apnea G47.30 [place] [address] [place] [id number] [place] [address] 41207- 9260 Dec, Type 2 diabetes mellitus with hyperglycemia E11.65 [place] [address] [address]- [address]83 Dec, [facility] [id number] [place] [address] 33638- 6654 Dec, Type 2 diabetes mellitus with hyperglycemia E11.65 [facility] [address] [place] [address] [id number] [place] [address] 58484- 5909 Dec, Left leg pain M79.605 [facility] [id number] [place] [address] 93436- 1462 Nov, Slow transit constipation K59.01 [facility] [id number] [place] [address] 95475- 8423 Nov, [facility] [address] [place] [id number] Nov, Anemia due to acute blood loss D62 [facility] [address] [place] [id number] [place] [address] 66127- 3537 Nov, [facility] [id number] [place] [address] 22670- 1399 Nov, Bladder spasms N32.89 [facility] [id number] [place] [address] 33115- 0738 Nov, Pain R52 [facility] [address] [place] [id number] Nov, Anemia due to acute blood loss D62 [facility] [id number] [place] [address] 05316- 9831 Nov, Pain in right hip M25.551 and Pain in left hip M25.552 [facility] [address] [address] 8688 Nov, [facility] [address] [place] [id number] [place] [address] 18586- 6931 Nov, [facility] [id number] [address]- 6056 Nov, [facility] [id number] [place] [address] 95788- 8704 Nov, [place] [id number] [place] [address] 24498- 1651 Oct, [facility] [address] [place] [id number] [place] [address] 84311- 5269 Oct, [facility] [address] [place] [id number] 26 Oct, 2017 Encounter for examination for admission to shelter Z02.2 ; Chronic kidney disease, unspecified CKD stage N18.9 ; Type 2 diabetes mellitus with unspecified complications E11.8 ; 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 ; Essential hypertension I10 ; Hypoxia R09.02 ; Severe sleep apnea G47.30 ; Stenosis of carotid artery, unspecified laterality I65.29 ; Generalized osteoarthritis M15.9 ; Coronary artery disease involving [place] coronary artery of [place] heart, angina presence unspecified I25.10 ; Port catheter in place Z95.828 and Hemorrhoids, unspecified hemorrhoid type K64.9 [place] [address] [place] [id number] [place] [address] 77239- 0340 Oct, [facility] [address] [place] [id number] [place] [address] 83617- 9091 Oct, [place] [address] [place] [id number] [place] [address] 20535- 2304 Oct, [place] [address] [place] [id number] [place] [address] 45638- 2452 Oct, [facility] [id number] [place] [address] 61162 -0236 September, BMI 50.0-59.9, adult Z68.43 [facility] [address] [place] [id number] [place] [address] 41653- 1923 September, [facility] [address] [place] [id number] [place] [address] 13050- 9092 September, [facility] [address] [place] [id number] [place] [address] 85686- 2143 Aug, Type 2 diabetes mellitus with foot ulcer E11.621 ; Transient cerebral ischemia, unspecified type G45.9 ; Essential hypertension I10 ; Mixed hyperlipidemia E78.2 and BMI 50.0-59.9, adult Z68.43 [place] [address] [place] [id number] [place] [address] 42988- 8928 17 Aug, 2017 [place] [address] [place] [id number] [place] [address] 00746- 3510 14 Jul, 2017 Anxiety about health F41.8 and Mixed hyperlipidemia E78.2 [place] [address] 27989- 1907 13 Jul, 2017 [place] [address] 64951- 3768 Jun, [place] [address] [place] [id number] [place] [address] 18612- 3938 12 Jun, 2017 Type 2 diabetes mellitus with hyperglycemia E11.65 ; Type 2 diabetes mellitus with foot ulcer E11.621 ; Port catheter in place Z95.828 ; 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 ; Contact with and (suspected) exposure to potentially hazardous body fluids Z77.21 and BMI 50.0-59.9, adult Z68.43 [place] [address] [place] [id number] [place] [address] 85107- 4318 May, [place] [address] [place] [id number] [place] [address] 57523- 8563 May, Open wound of right great toe, subsequent encounter S91.101D [place] [address] [place] [id number] [place] [address] 12741- 6594 May, [place] [address] [place] [id number] [place] [address] 20178- 5657 Apr, [place] [address] 62302- 5803 Apr, [place] [address] [id number] [place] [address] 27657- 6440 Apr, [place] [id number] [place] [address] 10664- 0851 14 Apr, 2017 Type 2 diabetes mellitus with diabetic polyneuropathy E11.42 [place] [address] [place] [id number] [place] [address] 53155- 6395 13 Apr, 2017 Open wound of right great toe, subsequent encounter S91.101D [address] 05823- 5887 08 Apr, 2017 Open wound of right great toe, subsequent encounter S91.101D ; Breast pain, left N64.4 ; Breast cancer screening Z12.31 ; Type 2 diabetes mellitus with foot ulcer E11.621 ; Essential hypertension I10 and BMI 50.0-59.9, adult Z68.43 [place] [id number] [place] [address] 62391- 2317 29 Mar, 2017 Encounter for immunization Z23 [place] [id number] [place] [address] 88787- 1747 19 Mar, 2017 [place] [id number] [place] [address] 01860- 7019 13 Mar, 2017 [place] [id number] [place] [address] 88777- 5295 10 Mar, 2017 Type 2 diabetes mellitus with diabetic polyneuropathy E11.42 ; Type 2 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 ; Type 2 diabetes mellitus with foot ulcer E11.621 ; Essential hypertension I10 ; Hypoxemia R09.02 and Generalized osteoarthritis M15.9 [place] [id number] [place] [address] 38242- 0405 02 Mar, 2017 Chronic kidney disease, stage 3 (moderate) N18.3 ; Acute cystitis without hematuria N30.00 ; Essential hypertension I10 ; Muscle spasms of neck M62.838 ; Type 2 diabetes mellitus with diabetic polyneuropathy E11.42 and BMI 50.0-59.9, adult Z68.43 [place] [address] [place] [id number] [place] [address] 96342- 4431 30 Feb, 2017 [facility] [address] [place] [address] Feb, [facility] [address] [place] [address] [address] 0434 Feb, [facility] [address], [place] [address]- 8630 Feb, [facility] [address] [place] [id number] [place] [address] 83588- 6985 Feb, [facility] [address] [place] [id number] [place] [address] 92992- 7598 Feb, [facility] [address] [place] [address] [id number] [place] [address] 91506- 6551 Feb, Mixed hyperlipidemia E78.2 [facility] [address] [address] [address]- 3546 Feb, [facility] [address] [address] [address]- 6393 Jan, [facility] [address], [place] [address]- 0410 Jan, Generalized osteoarthritis M15.9 [facility] [address], [place] [address]- 3808 Oct, [facility] [address], [place] [address]- 6391 Jul, [facility] [address], [place] [address]- 7669 13 Jul, 2016 [facility] [address] [place] [address]- 3071 02 Jul, 2017 Type 2 diabetes mellitus with hyperglycemia E11.65 ; Chronic kidney disease, stage 3 (moderate) N18.3 ; Type 2 diabetes mellitus with foot ulcer E11.621 ; Type 2 diabetes mellitus with diabetic polyneuropathy E11.42 ; Generalized osteoarthritis M15.9 ; Trochanteric bursitis of left hip M70.62 and Tinea pedis of both feet B35.3 [place] [id number] [place] [address] 35475- 6738 13 Jun, 2016 [facility] [address] [place] [id number] [place] [address] 62606- 3202 Apr, [facility] [address] [place] [id number] [place] [address] 09537- 5972 Apr, [facility] [address] [place] [id number] [place] [address] 39699- 4594 Mar, [place] [address] [place] [id number] [place] [address] 93943- 2670 Feb, Encounter for immunization Z23 [place] [address] [place] [id number] [place] [address] 68973- 4579 Feb, [place] [address] [place] [id number] [place] [address] 34987- 8422 Feb, Type 2 diabetes mellitus with hyperglycemia E11.65 ; Encounter for immunization Z23 ; Diarrhea, unspecified type R19.7 ; Essential hypertension I10 ; Mixed hyperlipidemia E78.2 ; Hypoxia R09.02 ; 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 and Type 2 diabetes mellitus with foot ulcer E11.621 [place] [id number] [place] [address] 22733- 3755 Jan, [place] [address] [place] [id number] [place] [address] 73599- 0383 Jan, Type 2 diabetes mellitus with hyperglycemia E11.65 and Pneumonia due to infectious organism, unspecified laterality, unspecified part of lung J18.9 [place] [id number] [place] [address] 55642- 8286 Jan, [place] [address] [place] [id number] [place] [address] 34271- 4661 Jan, [facility] [address] [place] [id number] [place] [address] 19661- 4931 Oct, Type 2 diabetes mellitus with hyperglycemia E11.65 ; Generalized osteoarthritis M15.9 and Chronic prescription opiate use Z79.891 [facility] [id number] [place] [address] 29876- 9249 September, [facility] [address] [place] [id number] [place] [address] 42986- 9967 Aug, [facility] [address] [place] [id number] [place] [address] 56768- 7910 Aug, [facility] [address] [place] [id number] [place] [address] 05823- 0560 Aug, [facility] [address] [place] [id number] [place] [address] 93413- 5233 Aug, [facility] [address] [place] [id number] [place] [address] 08313- 4588 Jun, [facility] [address] [place] [id number] [place] [address] 74431- 5806 Jun, Type 2 diabetes mellitus with hyperglycemia E11.65 ; Mixed hyperlipidemia E78.2 ; Vaginal itching L29.8 ; Neck muscle spasm M62.838 and Skin abrasion T14.8 [facility] [address] [place] [address] 55845- 1601 Apr, [facility] [address] [place] [address] [address]- 2403 Apr, [facility] [address] [place] [id number] [place] [address] 75877- 3592 Mar, [facility] [id number] [place] [address] 88852- 3405 Feb, [facility] [address] [place] [id number] [place] [address] 57833- 1120 Feb, Type 2 diabetes mellitus with hyperglycemia E11.65 ; Type 2 diabetes mellitus with foot ulcer E11.621 ; Type 2 diabetes mellitus with diabetic polyneuropathy E11.42 and Encounter for immunization Z23 [facility] [address] [place] [address] [address] [address] 0097 Jan, Hypertension 401.9 ; Uncontrolled type 2 diabetes mellitus 250.02 ; Right shoulder pain 719.41 and Ulcer of heel and midfoot 707.14 [facility] [address] [place] [address] [address]- 5736 Dec, Diabetes with other specified manifestations, type II or unspecified type, not stated as uncontrolled 250.80 ; Ulcer of heel and midfoot 707.14 ; Hypertension 401.9 ; Hip pain, left 719.45 and Acute anxiety 300.00 [facility] [address] [place] [id number] [place] [address] 08666- 2748 Nov, [facility] [address] [place] [id number] [place] [address] 62382- 8238 Nov, [facility] [address] [place] [id number] [place] [address] 98308- 0455 September, Anxiety attack 300.01 and Cellulitis 682.9 [facility] [address] [place] [id number] [place] [address] 61279- 0601 September, [facility] [address] [place] [id number] [place] [address] 96186- 5819 September, [facility] [address], [place] [address]- 0577 September, [facility] [address], [place] [address]- 1741 Aug, [facility] [address], [place] [address]- 4337 Aug, [facility] [address] [place] [id number] [place] [address] 17019141- 3728 Jul, [facility] [address] [address] 3454 Jul, [facility] [address] [place] [address] 24929386- 4048 Jul, [facility] [place] [facility] [address] [id number] [place] [address]- 0948 May, [facility] [place] [facility] [address] [id number] [place] [address]- 3813 May, [facility] [place] [facility] [address] [id number] [place] [address]- 9890 Mar, [facility] [place] [facility] [address] [id number] [place] [address]- 0129 Mar, [facility] [place] [facility] [address] [id number] [place] [address]- 2293 Mar, [facility] [place] [facility] [address] [id number] [place] [address]- 9392 Mar, [facility] [place] [facility] [address] [id number] [place] [address]- 9665 Mar, [facility] [place] [facility] [address] [id number] [place] [address]- 1451 Mar, [facility] [place] [facility] [address] [id number] [place] [address]- 3329 Mar, [facility] [place] [facility] [address] [id number] [place] [address]- 8226 Feb, [facility] [place] [facility] [address] [id number] [place] [address]- 3329 Feb, [facility] [place] [facility] [address] [id number] [place] [address]- 5527 30 Jan, 2014 [facility] [place] [facility] [address] [id number] [place] [address]- 8348 30 Jan, 2014 [facility] [place] [facility] [address] [id number] [place] [address]- 9087 Jan, [facility] [place] [facility] [address] [id number] [place] [address]- 6374 Jan, [facility] [place] [facility] [address] [id number] [place] [address]- 8100 25 Sep, 2013 [facility] [place] [facility] [address] [id number] [place] [address] 2546 25 Sep, 2013 [facility] [place] [facility] [address] [id number] [place] [address] 2546 25 Sep, 2013 [facility] [place] [facility] [address] [id number] [place] [address] 2548 25 Sep, 2013 [facility] [place] [facility] [address] [id number] [place] [address] 2543 18 Sep, 2013 [facility] [place] [facility] [address] [id number] [place] [address]- 8859 18 Sep, 2013 [facility] [place] [facility] [address] [id number] [place] [address]- 6883 06 Sep, 2013 [facility] [place] [facility] [address] [id number] [place] [address]- 5018 06 Sep, 2013 [facility] [place] [facility] [address] [id number] [place] [address]- 8320 05 Sep, 2013 [facility] [place] [facility] [address] [id number] [place] [address] 2540 05 Sep, 2013 [facility] [place] [facility] [address] [id number] [place] [address] 2544 05 Sep, 2013 [facility] [place] [facility] [address] [id number] [place] [address] 2544 05 Sep, 2013 [facility] [place] [facility] [address] [id number] [address]- 2548 05 Sep, 2013 [facility] [place] [facility] [address] [id number] [place] [address] 2547 05 Sep, 2013 [facility] [place] [facility] [address] [id number] [place] [address]- 7751 Dec, [facility] [place] [facility] [address] [id number] [place] [address]- 2028 Dec, [facility] [place] [facility] [address] [id number] [place] [address]- 0518 Dec, 2013 [facility] [place] [facility] [address] [id number] [place] [address]- 5036 Dec, [facility] [place] [facility] [address] [id number] [place] [address]- 1236 Dec, [facility] [place] [facility] [address] [id number] [place] [address]- 1699 Dec, 2013 [facility] [place] [facility] [address] [id number] [place] [address]- 5193 Dec, 2013 [facility] [place] [facility] [address] [id number] [place] [address]- 3524 Dec, [facility] [place] [facility] [address] [id number] [place] [address]- 0019 Dec, [facility] [place] [facility] [address] [id number] [place] [address]- 7385 Dec, [facility] [place] [facility] [address] [id number] [place] [address]- 6021 Nov, [facility] [place] [facility] [address] [id number] [place] [address]- 1683 Nov, [facility] [place] [facility] [address] [id number] [place] [address]- 8827 Nov, [facility] [place] [facility] [address] [id number] [place] [address]- 9963 Nov, [facility] [place] [facility] [address] [id number] [place] [address]- 6090 Nov, [facility] [place] [facility] [address] [id number] [place] [address]- 2135 Nov, [facility] [place] [facility] [address] [id number] [place] [address]- 9366 Oct, [facility] [place] [facility] [address] [id number] [place] [address] 1699 Oct, [facility] [place] [facility] [address] [id number] [place] [address]- 9988 Oct, [facility] [place] [facility] [address] [id number] [place] [address]- 9650 Oct, [facility] [place] [facility] [address] [id number] [place] [address]- 3277 Oct, [facility] [place] [facility] [address] [id number] [place] [address]- 8015 Oct, [facility] [place] [facility] [address] [id number] [place] [address]- 7709 Oct, [facility] [place] [facility] [address] [id number] [place] [address]- 0580 Oct, [facility] [place] [facility] [address] [id number] [place] [address]- 1135 Oct, [facility] [place] [facility] [address] [id number] [place] [address] Oct, [facility] [place] [facility] [address] [id number] [place] [address] Oct, [facility] [place] [facility] [address] [id number] [place] [address] Oct, [facility] [place] [facility] [address] [id number] [place] [address] September, [facility] [place] [facility] [address] [id number] [place] [address] September, [facility] [place] [facility] [address] [id number] [place] [address] September, [facility] [place] [facility] [address] [id number] [place] [address] Aug, [facility] [place] [facility] [address] [id number] [place] [address] Aug, [facility] [place] [facility] [address] [id number] [place] [address] 13 Jul, 2013 [facility] [place] [facility] [address] [id number] [place] [address] Jul, [facility] [place] [facility] [address] [id number] [place] [address] Jul, [facility] [place] [facility] [address] [id number] [place] [address] Jul, [facility] [place] [facility] [address] [id number] [place] [address] Jul, [facility] [place] [facility] [address] [id number] [place] [address] Jul, [facility] [place] [facility] [address] [id number] [place] [address] Jul, [facility] [place] [facility] [address] [id number] [place] [address] Jul, [facility] [place] [facility] [address] [id number] [place] [address] Jul, [facility] [place] [facility] [address] [id number] [place] [address] Jul, [facility] [place] [facility] [address] [id number] [place] [address] Jun, [facility] [place] [facility] [address] [id number] [place] [address] Jun, [facility] [place] [facility] [address] [id number] [place] [address] Jun, [facility] [place] [facility] [address] [id number] [place] [address] Jun, [facility] [place] [facility] [address] [id number] [place] [address] May, [facility] [place] [facility] [address] [id number] [place] [address] May, [facility] [place] [facility] [address] [id number] [place] [address] Apr, [facility] [address] [id number] [place] [address] Apr, [facility] [facility] [address] [id number] [place] [address] Apr, [facility] [place] [facility] [address] [id number] [place] [address] Apr, [facility] [address] [id number] [place] [address] Apr, [facility] [address] [id number] [place] [address] Apr, [facility] [address] [id number] [place] [address] Apr, [facility] [address] [id number] [place] [address] 8598 Apr, [facility] [address] [id number] [place] [address] 1518 Mar, [facility] [address] [id number] [place] [address] Mar, [facility] [place] [facility] [address] [id number] [place] [address] 3253 Mar, [facility] [place] [facility] [address] [id number], [place] [address] Mar, [facility] [place] [facility] [address] [id number] [place] [address] 4987 Mar, [facility] [place] [facility] [address] [id number] [place] [address] 0278 Mar, [facility] [place] [facility] [address] [id number] [place] [address] 6539 Feb, [facility] [place] [facility] [address] [id number], [place] [address] 30 Feb, 2013 [facility] [place] [facility] [address] [id number] [place] [address] 3870 18 Feb, 2013 [facility] [place] [facility] [address] [id number] [place] [address]- 8914 18 Feb, 2013 [facility] [place] [facility] [address] [id number] [place] [address]- 7475 14 Feb, 2013 [facility] [place] [facility] [address] [id number] [place] [address]- 9404 14 Feb, 2013 [facility] [place] [facility] [address] [id number] [place] [address] 04 Feb, 2013 [facility] [place] [facility] [address] [id number] [place] [address]- 6881 27 Jan, 2013 [facility] [place] [facility] [address] [id number] [place] [address]- 3889 26 Jan, 2013 [facility] [place] [facility] [address] [id number] [place] [address]- 9466 19 Jan, 2013 [facility] [place] [facility] [address] [id number] [place] [address]- 1895 05 Jan, 2013 [facility] [place] [facility] [address] [id number] [place] [address]- 2967 Dec, [facility] [place] [facility] [address] [id number] [place] [address]- 3493 Dec, [facility] [place] [facility] [address] [id number] [place] [address]- 5818 Dec, [facility] [place] [facility] [address] [id number] [place] [address]- 1588 Nov, [facility] [place] [facility] [address] [id number] [place] [address]- 4552 Nov, [facility] [place] [facility] [address] [id number] [place] [address]- 7458 Nov, [facility] [place] [facility] [address] [id number] [place] [address]- 4115 10 Nov, 2012 [facility] [address] [id number] [place] [address] 4880 Nov, [facility] [address] [id number] [place] [address] 4616 Nov, [facility] [address] [id number] [place] [address]- 2934 Oct, [facility] [address] [id number] [place] [address]- 4978 Oct, [facility] [address] [id number] [place] [address]- 9898 Oct, [facility] [address] [id number] [place] [address]- 7598 Oct, [facility] [address] [id number] [place] [address]- 8537 Oct, [facility] [address] [id number] [place] [address]- 6025 Oct, [facility] [address] [id number] [place] [address]- 2021 September, [facility] [address] [id number] [place] [address]- 3321 September, [facility] [address] [id number] [place] [address]- 1649 September, [facility] [address] [id number] [place] [address]- 8485 September, [facility] [address] [id number] [place] [address]- 1481 Aug, [facility] [address] [id number] [place] [address]- 9116 Aug, [facility] [address] [id number] [place] [address]- 2427 Jul, [facility] [address] [id number] [place] [address]- 1439 21 Jul, 2012 [facility] [place] [facility] [address] [id number] [place] [address]- 0880 18 Jul, 2012 [facility] [place] [facility] [address] [id number] [place] [address]- 6153 15 Jul, 2012 [facility] [place] [facility] [address] [id number] [place] [address]- 3882 13 Jul, 2012 [facility] [address] [id number] [place] [address]- 9832 08 Jul, 2012 [facility] [place] [facility] [address] [id number] [place] [address]- 7500 20 Jun, 2012 [facility] [place] [facility] [address] [id number] [place] [address]- 0069 13 Jun, 2012 [facility] [place] [facility] [address] [id number] [place] [address]- 3619 17 May, 2012 [facility] [address] [id number] [place] [address]- 3995 04 May, 2012 [facility] [address] [id number] [place] [address]- 3522 18 Apr, 2012 [facility] [place] [facility] [address] [id number] [place] [address]- 4646 18 Apr, 2012 [facility] [place] [facility] [address] [id number] [place] [address]- 5393 13 Apr, 2012 [facility] [place] [facility] [address] [id number] [place] [address]- 1834 13 Apr, 2012 [facility] [place] [facility] [address] [id number] [place] [address]- 1663 10 Apr, 2012 [facility] [place] [facility] [address] [id number] [place] [address]- 4940 10 Apr, 2012 [facility] [place] [facility] [address] [id number] [place] 07 Apr, 2012 [facility] [place] [facility] [address] [id number] [place] [address]- 8496 Apr, [facility] [place] [facility] [address] [id number] [place] [address] Apr, [facility] [place] [facility] [address] [id number] [place] [address]- 4486 Apr, [facility] [place] [facility] [address] [id number] [place] [address]- 9586 Apr, [facility] [place] [facility] [address] [id number] [place] [address]- 4385 Apr, [facility] [place] [facility] [address] [id number] [place] [address]- 3614 Apr, [facility] [place] [facility] [address] [id number] [place] [address]- 9343 Apr, [facility] [place] [facility] [address] [id number] [place] [address]- 4434 Apr, [facility] [place] [facility] [address] [id number] [place] [address]- 7152 Apr, [facility] [place] [facility] [address] [id number] [place] [address]- 7629 Mar, [facility] [place] [facility] [address] [id number] [place] [address]- 4553 Mar, [facility] [place] [facility] [address] [id number], [place] [address]- 2535 Mar, [facility] [place] [facility] [address] [id number] [place] [address]- 6806 Mar, [facility] [place] [facility] [address] [id number] [place] [address]- 6643 Mar, [facility] [place] [facility] [address] [id number], [place] [address]- 0458 Mar, [facility] [place] [facility] [address] [id number] [place] [address]- 2541 Mar, [facility] [place] [facility] [address] [id number] [place] [address]- 8541 Mar, [facility] [place] [facility] [address] [id number] [place] [address]- 3146 Mar, [facility] [place] [facility] [address] [id number] [place] [address]- 5837 Mar, [facility] [place] [facility] [address] [id number] [place] [address]- 0478 Feb, [facility] [place] [facility] [address] [id number] [place] [address]- 5124 Feb, [facility] [place] [facility] [address] [id number] [place] [address]- 2622 Feb, [facility] [place] [facility] [address] [id number] [place] [address]- 0411 Feb, [facility] [place] [facility] [address] [id number] [place] [address]- 1087 Feb, [facility] [place] [facility] [address] [id number] [place] [address]- 4562 Feb, [facility] [place] [facility] [address] [id number] [place] [address]- 5621 Jan, [facility] [place] [facility] [address] [id number] [place] [address]- 2372 Dec, [facility] [place] [facility] [address] [id number] [place] [address]- 8590 Dec, [facility] [place] [facility] [address] [id number] [place] [address]- 4045 Dec, [facility] [place] [facility] [address] [id number] [place] [address]- 5194 Dec, [facility] [place] [facility] [address] [id number] [place] [address]- 2036 Nov, [facility] [place] [facility] [address] [id number] [place] [address]- 1449 Nov, [facility] [place] [facility] [address] [id number] [place] [address]- 0296 Nov, [facility] [place] [facility] [address] [id number] [place] [address]- 5441 Nov, [facility] [place] [facility] [address] [id number] [place] [address]- 8221 Oct, [facility] [place] [facility] [address] [id number] [place] [address]- 4938 Oct, [facility] [place] [facility] [address] [id number] [place] [address]- 3766 Oct, [facility] [place] [facility] [address] [id number] [place] [address]- 9375 Oct, [facility] [place] [facility] [address] [id number] [place] [address]- 0605 Oct, [facility] [place] [facility] [address] [id number] [place] [address]- 3343 September, [facility] [place] [facility] [address] [id number] [place] [address]- 9295 September, [facility] [place] [facility] [address] [id number] [place] [address]- 7690 September, [facility] [place] [facility] [address] [id number] [place] [address]- 6922 September, [facility] [place] [facility] [address] [id number] [place] [address]- 9599 September, [facility] [place] [facility] [address] [id number] [place] [address]- 2286 September, [facility] [place] [facility] [address] [id number] [place] [address]- 1886 September, [facility] [place] [facility] [address] [id number] [place] [address]- 0085 September, [facility] [address] [id number] [place] [address]- 4834 Aug, [facility] [address] [id number] [place] [address]- 8424 Aug, [facility] [address] [id number] [place] [address]- 5171 Aug, [facility] [address] [id number] [place] [address]- 8928 Aug, [facility] [address] [id number] [place] [address]- 8502 18 Aug, 2011 [facility] [address] [id number] [place] [address]- 3157 17 Aug, 2011 [facility] [address] [id number] [place] [address]- 4038 Aug, [facility] [address] [id number] [place] [address]- 3778 Aug, [facility] [address] [id number] [place] [address]- 3191 Aug, [facility] [address] [id number] [place] [address]- 9149 Aug, [facility] [address] [id number] [place] [address]- 1267 Aug, [facility] [address] [id number] [place] [address]- 2037 Aug, [facility] [address] [id number] [place] [address]- 8287 29 Jul, 2011 [facility] [address] [id number] [place] [address]- 7679 Jul, [facility] [address] [id number] [place] [address]- 3012 Jul, [facility] [place] [facility] [address] [id number] [place] [address]- 9302 23 Jul, 2011 [facility] [place] [facility] [address] [id number] [place] [address]- 8476 Jul, [facility] [place] [facility] [address] [id number] [place] [address]- 4736 21 Jul, 2011 [facility] [place] [facility] [address] [id number] [place] [address]- 1946 14 Jul, 2011 [facility] [place] [facility] [address] [id number] [place] [address]- 2824 13 Jul, 2011 [facility] [place] [facility] [address] [id number] [place] [address]- 4176 07 Jul, 2011 [facility] [place] [facility] [address] [id number] [place] [address]- 5833 24 Jun, 2011 [facility] [place] [facility] [address] [id number] [place] [address]- 5011 Jun, [facility] [place] [facility] [address] [id number] [place] [address]- 5402 Jun, [facility] [place] [facility] [address] [id number] [place] [address]- 8726 14 Jun, 2011 [facility] [place] [facility] [address] [id number] [place] [address]- 0976 Jun, [facility] [place] [facility] [address] [id number] [place] [address]- 6546 Jun, [facility] [place] [facility] [address] [id number] [place] [address]- 7326 Jun, [facility] [place] [facility] [address] [id number] [place] [address]- 8786 May, [facility] [place] [facility] [address] [id number] [place] [address]- 0586 May, [facility] [place] [facility] [address] [id number] [place] [address]- 7803 May, [facility] [address] [id number] [place] [address]- 9773 May, [facility] [address] [id number] [place] [address]- 3716 May, [facility] [address] [id number] [place] [address]- 7016 May, [facility] [address] [id number] [place] [address]- 3541 May, [facility] [address] [id number] [place] [address]- 3340 Apr, [facility] [address] [id number] [place] [address]- 3857 Apr, [facility] [address] [id number] [place] [address]- 8301 Apr, [facility] [address] [id number] [place] [address]- 9629 Apr, [facility] [address] [id number] [place] [address]- 1099 Apr, [facility] [address] [id number] [place] [address]- 5186 Apr, [facility] [address] [id number] [place] [address]- 4289 Apr, [facility] [address] [id number] [place] [address]- 0629 Apr, [facility] [address] [id number] [place] [address]- 5937 05 Apr, 2011 [facility] [address] [id number] [place] [address]- 5933 Mar, [facility] [address] [id number] [place] [address]- 0114 Mar, [facility] [address] [id number] [place] [address]- 4222 Mar, [facility] [place] [facility] [address] [id number] [place] [address]- 5496 Mar, [facility] [place] [facility] [address] [id number] [place] [address] 2543 Mar, [facility] [place] [facility] [address] [id number] [place] [address]- 0026 Feb, [facility] [place] [facility] [address] [id number] [place] [address]- 4259 Feb, [facility] [place] [facility] [address] [id number] [place] [address]- 8916 Feb, [facility] [place] [facility] [address] [id number] [place] [address]- 7050 Dec, [facility] [place] [facility] [address] [id number] [place] [address]- 5659 Nov, [facility] [place] [facility] [address] [id number] [place] [address]- 4911 Apr, [facility] [place] [facility] [address] [id number] [place] 6610 Apr, [facility] [place] [facility] [address] [id number] [place] [address]- 6758 16 Apr, 2010 [facility] [place] [facility] [address] [id number], [place] [address]- 8454 13 Apr, 2010 [facility] [place] [facility] [address] [id number] [place] [address]- 1975 Apr, [facility] [place] [facility] [address] [id number] [place] [address]- 3294 Apr, [facility] [place] [facility] [address] [id number] [place] [address]- 0701 Apr, [facility] [place] [facility] [address] [id number], [place] [address]- 2519 Apr, [facility] [id number], [place] [address]- 9399 Mar, [facility] [id number], [place] [address]- 2142 Mar, [facility] [id number], [place] [address]- 6236 Mar, [facility] [id number], [place] [address]- 0182 Mar, [facility] [id number] [place] [address]- 9379 Mar, [facility] [id number] [place] [address]- 0821 Mar, [facility] [id number] [place] [address] 49[address]- 3211 Mar, [facility] [id number], [place] [address]- 7431 Mar, [facility] [id number], [place] [address]- 8093 Mar, [facility] [id number], [place] [address]- 1995 Mar, IMMUNIZATIONS No Known Immunizations SOCIAL HISTORY Never Assessed REASON FOR VISIT Hospital follow up PLAN OF CARE Activity Details Follow Up prn Reason: VITAL SIGNS MEDICATIONS Medication Instructions Dosage Frequency Start Date End Date Duration Status Clonidine HCl 0.3 MG Orally Twice a day 1 tablet 12h Active NovoLog Flexpen 100 UNIT/ML Subcutaneous 3 times a day before meals 9 units Active HydrALAZINE HCl 25 MG Orally Three times a day 1 tablet with food 8h Active Vitamin D3 5000 UNIT Orally Once a day at hs 1 capsule Active Magnesium Oxide 250 MG Orally Once a day 1 tablet as needed 24h Active Arginine 2000 MG Orally TID 2,000 mg 8h Active Fish Oil 1000 MG Orally 3 times a day 1 capsule 8h Active Morphine Sulfate (Concentrate) 20 MG/ML Orally every 1 hr, prn pain 0.25-0.5 ml Nov, Active Multivitamins - Orally Once a day 1 capsule 24h Active Alavert 10 MG Orally Once a day 1 tablet on the tongue and allow to dissolve 24h Active Levemir FlexTouch 100 UNIT/ML Subcutaneous BID 20 units 12h Active Acetaminophen ER 650 MG Orally every 8 hrs 2 tablets as needed 8h Active Rosuvastatin Calcium 20 MG Orally Once a day 1 tablet 24h Active Gabapentin 100 MG Orally Three times a day 1 capsule 8h Active Simbrinza 1-0.2 % Ophthalmic Three times a day 1 drop into affected eye 8h Active Torsemide 20 mg Orally 2 times a day 1 tablet 12h Active Aspirin 81 MG Orally Once a day 1 tablet 24h Active Venofer 200 mg Intravenous for 7 days 200 mg IV q48 hours Nov, Nov, Active RESULTS No Results PROCEDURES Procedure Date Ordered Result Body Site Significant Complication (25 mins) November 14, 2017 INSTRUCTIONS MEDICATIONS ADMINISTERED No Known Medications [...]
[2018-04-22 23:06] LABS: BASOPHILS % (AUTO) 0 % (0-10); EOSINOPHILS % (AUTO) 0 % (0-10); HEMATOCRIT 26 % (35-52); HEMOGLOBIN 7.6 G/DL (11.5-16.0); LYMPHOCYTES # (AUTO) 0.8 X 10^3 (1.0-4.0); LYMPHOCYTES % (AUTO) 7 % (12-44); MEAN CORPUSCULAR HEMOGLOBIN 27 PG (25-34); MEAN CORPUSCULAR HGB CONC 29 G/DL (32-36); MEAN CORPUSCULAR VOLUME 94 FL (80-99); MEAN PLATELET VOLUME 8.3 FL (7.4-10.4); MONOCYTES # (AUTO) 0.6 X 10^3 (0.0-1.0); MONOCYTES % (AUTO) 6 % (0-12); NEUTROPHILS # (AUTO) 9.3 X 10^3 (1.8-7.8); NEUTROPHILS % (AUTO) 87 % (42-75); PLATELET COUNT 423 10^3/uL (130-400); RED BLOOD COUNT 2.78 10^6/uL (4.35-5.85); RED CELL DISTRIBUTION WIDTH 16.6 % (10.0-14.5); WHITE BLOOD COUNT 10.7 10^3/uL (4.3-11.0)
--- OUTSIDE RECORDS SUMMARY | 2018-04-22 23:06 | XMS REPORT ---
Author Author FABRICE DHALIWAL [facility] Address [address] [place] [address] Care Team Providers Care Call Center Operator Name Role Phone FABRICE DHALIWAL Unavailable PROBLEMS Type Condition ICD9-CM Code DKR97-FV Code Onset Dates Condition Status SNOMED Code Problem Mixed hyperlipidemia E78.2 Active 732293028 Problem Severe sleep apnea G47.30 Active 38151205 Problem Iron deficiency anemia, unspecified iron deficiency anemia type D50.9 Active 90462918 Problem Decreased diffusion capacity R94.2 Active 72977001 Problem Stenosis of carotid artery, unspecified laterality I65.29 Active 36502572 Problem Coronary artery disease involving tlingit & haida coronary artery of tlingit & haida heart, angina presence unspecified I25.10 Active 9867126972381 Problem Generalized osteoarthritis M15.9 Active 018426409 Problem Aortic valve sclerosis I35.8 Active 86496114 Problem Port catheter in place Z95.828 Active 771672959 Problem Essential hypertension I10 Active 95672697 Problem Transient cerebral ischemia, unspecified type G45.9 Active 057838146 Problem Renal osteodystrophy N25.0 Active 27855645 Problem Anxiety about health F41.8 Active 607830378 Problem Chronic kidney disease, unspecified CKD stage N18.9 Active 582217637 Problem Type 2 diabetes mellitus with unspecified complications E11.8 Active 62861945 Problem Other chronic pain G89.29 Active 13987144 Problem Chronic kidney disease (CKD), stage 4 (severe) N18.4 Active 215739613 Problem Type 2 diabetes mellitus with hyperglycemia E11.65 Active 83243118 Problem Type 2 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 Active 11356651 Problem 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 Active 0374569 Problem Pain R52 Active 91262608 Problem FDC 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.4 Active 000752006 Problem Slow transit constipation K59.01 Active 03716133 Problem Bladder spasms N32.89 Active 934180261 Problem Anemia in other chronic diseases classified elsewhere D63.8 Active 028305415 Problem Chronic kidney disease, stage 3 (moderate) N18.3 Active 243393312 Problem Type 2 diabetes mellitus with foot ulcer E11.621 Active 512340155 Problem Type 2 diabetes mellitus with diabetic polyneuropathy E11.42 Active 926233727 Problem Hypoxemia R09.02 Active 310367467 Problem BMI 50.0-59.9, adult Z68.43 Active 944002632 Problem Diarrhea, unspecified type R19.7 Active 15288498 Problem Trochanteric bursitis of left hip M70.62 Active [id number] ALLERGIES No Information ENCOUNTERS Encounter Location Date Diagnosis [facility] [address] [place], [place] [id number] Dec, Low back pain M54.5 ; Other chronic pain G89.29 and Chronic kidney disease (CKD), stage 4 (severe) N18.4 [facility] [id number] [place] [address] 83479- 0616 Dec, Type 2 diabetes mellitus with hyperglycemia E11.65 [facility] [id number] [place] [address] 70348- 8806 Dec, [facility] [address] [place] [id number] Dec, Type 2 diabetes mellitus with hyperglycemia E11.65 ; Essential hypertension I10 ; Generalized osteoarthritis M15.9 ; Mixed hyperlipidemia E78.2 ; Hypoxia R09.02 ; Port catheter in place Z95.828 ; Anemia due to acute blood loss D62 ; Chronic kidney disease, unspecified CKD stage N18.9 and Severe sleep apnea G47.30 [facility] [id number] [place] [address] 28482- 9797 Dec, Type 2 diabetes mellitus with hyperglycemia E11.65 [facility] [id number] [place] [address] 58878- 2898 Dec, [facility] [id number] [place] [address] 75610- 8460 Dec, Type 2 diabetes mellitus with hyperglycemia E11.65 [facility] [id number] [place] [address] 89572- 0161 Dec, Left leg pain M79.605 [facility] [id number] [place] [address] 12096- 9135 Nov, Slow transit constipation K59.01 [facility] [address] [place] [address] 2546 Nov, [facility] [address] [place] [id number] Nov, Anemia due to acute blood loss D62 [facility] [id number] [place] [address] 90144 2546 Nov, [facility] [id number] [place] [address] 59507- 8436 Nov, Bladder spasms N32.89 [facility] [id number] [place] [address] 11187- 0066 Nov, Pain R52 [facility] [address] [id number] Nov, Anemia due to acute blood loss D62 [facility] [address] [place] [address] 13538- 3456 Nov, Pain in right hip M25.551 and Pain in left hip M25.552 [facility] [id number] [place] [address] 71504- 2026 Nov, [facility] [id number] [place] [address] 10744 2546 Nov, [facility] [id number] [place] [address] 61054 2546 Nov, [facility] [id number] [place] [address] 113395- 4716 Nov, [facility] [address] [place] [address] 1436 Oct, [facility] [id number] [place] [address] 00459- 1723 Oct, [facility] [address] [id number] 26 Oct, 2017 Encounter for examination for admission to long-term Z02.2 ; Chronic kidney disease, unspecified CKD stage N18.9 ; Type 2 diabetes mellitus with unspecified complications E11.8 ; FDC 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.4 ; Essential hypertension I10 ; Hypoxia R09.02 ; Severe sleep apnea G47.30 ; Stenosis of carotid artery, unspecified laterality I65.29 ; Generalized osteoarthritis M15.9 ; Coronary artery disease involving tlingit & haida coronary artery of tlingit & haida heart, angina presence unspecified I25.10 ; Port catheter in place Z95.828 and Hemorrhoids, unspecified hemorrhoid type K64.9 [facility] [address] 38572- 5927 Oct, [facility] [address] 95024- 0066 Oct, [facility] [address] 39799- 7019 Oct, [facility] [address] 51990- 0612 Oct, [facility] [id number] [place] [address] 71406 -7243 September, BMI 50.0-59.9, adult Z68.43 [facility] [address] 25741- 9195 September, [facility] [address] 02317- 6587 September, [facility] [id number] [place] [address] 72777- 1876 Aug, Type 2 diabetes mellitus with foot ulcer E11.621 ; Transient cerebral ischemia, unspecified type G45.9 ; Essential hypertension I10 ; Mixed hyperlipidemia E78.2 and BMI 50.0-59.9, adult Z68.43 [facility] [address] 39624- 5498 Aug, [facility] [id number] [place] [address] 51071- 5263 14 Jul, 2017 Anxiety about health F41.8 and Mixed hyperlipidemia E78.2 [facility] [id number] [place] [address] 88698- 7141 13 Jul, 2017 [facility] [address] 23457- 6933 Jun, [facility] [id number] [place] [address] 47062- 1852 Jun, Type 2 diabetes mellitus with hyperglycemia E11.65 ; Type 2 diabetes mellitus with foot ulcer E11.621 ; Port catheter in place Z95.828 ; 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 ; Contact with and (suspected) exposure to potentially hazardous body fluids Z77.21 and BMI 50.0-59.9, adult Z68.43 [facility] [id number] [place] [address] 38350- 7537 May, [facility] [address] 85502- 5571 May, Open wound of right great toe, subsequent encounter S91.101D [facility] [id number] [place] [address] 58037- 7866 May, [facility] [id number] [place] [address] 08238- 2297 Apr, [facility] [id number] [place] [address] 24995- 1035 Apr, [facility] [id number] [place] [address] 83078- 7805 Apr, [facility] [id number] [place] [address] 02934- 5539 Apr, Type 2 diabetes mellitus with diabetic polyneuropathy E11.42 [facility] [id number] [place] [address] 17151- 7882 Apr, Open wound of right great toe, subsequent encounter S91.101D [facility] [id number] [place] [address] 77690- 5609 Apr, Open wound of right great toe, subsequent encounter S91.101D ; Breast pain, left N64.4 ; Breast cancer screening Z12.31 ; Type 2 diabetes mellitus with foot ulcer E11.621 ; Essential hypertension I10 and BMI 50.0-59.9, adult Z68.43 [facility] [id number] [place] [address] 59285- 6910 Mar, Encounter for immunization Z23 [address] [address]- 2554 Mar, [facility] [id number] [place] [address] 77566- 3802 Mar, [facility] [id number] [place] [address] 73841- 4344 Mar, Type 2 diabetes mellitus with diabetic polyneuropathy E11.42 ; Type 2 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 ; Type 2 diabetes mellitus with foot ulcer E11.621 ; Essential hypertension I10 ; Hypoxemia R09.02 and Generalized osteoarthritis M15.9 [facility] [id number] [place] [address] 03582- 5290 02 Mar, 2017 Chronic kidney disease, stage 3 (moderate) N18.3 ; Acute cystitis without hematuria N30.00 ; Essential hypertension I10 ; Muscle spasms of neck M62.838 ; Type 2 diabetes mellitus with diabetic polyneuropathy E11.42 and BMI 50.0-59.9, adult Z68.43 [facility] [id number] [place] [address] 27591- 3816 Feb, [facility] [id number] [place] [address] 65557 -2784 Feb, [facility] [id number] [place] [address] 24988- 2999 Feb, [facility] [address] [address] 7610 Feb, [facility] [id number] [place] [address] 47037- 7859 Feb, [facility] [id number] [place] [address] 06147- 8712 Feb, [facility] [id number] [place] [address] 39081- 4955 Feb, Mixed hyperlipidemia E78.2 [facility] [id number] [place] [address] 46629- 6921 Feb, [facility] [id number] [place] [address] 35994- 4132 Jan, [facility] [id number] [place] [address] 61670- 0654 Jan, Generalized osteoarthritis M15.9 [facility] [address] [place] [address] 36247- 4051 Oct, [facility] [id number] [place] [address] 61081- 5922 Jul, [facility] [address] [place] [address]- 0042 Jul, [facility] [address] [place] [address] 64824- 2771 Jul, Type 2 diabetes mellitus with hyperglycemia E11.65 ; Chronic kidney disease, stage 3 (moderate) N18.3 ; Type 2 diabetes mellitus with foot ulcer E11.621 ; Type 2 diabetes mellitus with diabetic polyneuropathy E11.42 ; Generalized osteoarthritis M15.9 ; Trochanteric bursitis of left hip M70.62 and Tinea pedis of both feet B35.3 [facility] [address] [place] [address]- 9546 Jun, [facility] [id number] [place] [address] 67396- 0080 Apr, [facility] [id number] [place] [address] 96055- 6078 Apr, [facility] [id number] [place] [address] 50354- 2458 Mar, [facility] [id number] [place] [address] 87979- 6586 Feb, Encounter for immunization Z23 [facility] [address] 67208- 1491 Feb, [facility] [address] 94255- 2472 Feb, Type 2 diabetes mellitus with hyperglycemia E11.65 ; Encounter for immunization Z23 ; Diarrhea, unspecified type R19.7 ; Essential hypertension I10 ; Mixed hyperlipidemia E78.2 ; Hypoxia R09.02 ; 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 and Type 2 diabetes mellitus with foot ulcer E11.621 [facility] [id number] [place] [address] 14170- 4987 Jan, [facility] [id number] [place] [address] 34539- 2490 Jan, Type 2 diabetes mellitus with hyperglycemia E11.65 and Pneumonia due to infectious organism, unspecified laterality, unspecified part of lung J18.9 [facility] [address] [place] [address] 00618- 3581 Jan, [facility] [address] [place] [address] 72135- 9583 Jan, [facility] [id number] [place] [address] 16020- 4646 Oct, Type 2 diabetes mellitus with hyperglycemia E11.65 ; Generalized osteoarthritis M15.9 and Chronic prescription opiate use Z79.891 [facility] [id number] [place] [address] 20290- 3493 September, [facility] [address] [place] [address]- 5126 Aug, [facility] [id number] [place] [address] 47044- 9644 Aug, [facility] [id number] [place] [address] 47376- 1471 Aug, [facility] [id number] [place] [address] 90866- 2277 Aug, [facility] [id number] [place] [address] 99246- 8590 Jun, [facility] [id number] [place] [address] 89588- 5985 Jun, Type 2 diabetes mellitus with hyperglycemia E11.65 ; Mixed hyperlipidemia E78.2 ; Vaginal itching L29.8 ; Neck muscle spasm M62.838 and Skin abrasion T14.8 [facility] [id number] [place] [address] 36760- 5750 Apr, [facility] [id number] [place] [address] 73508- 9688 Apr, [facility] [id number] [place] [address] 44589- 0416 Mar, [facility] [id number] [place] [address] 17539- 4276 Feb, [facility] [address] [place] [address] 21011- 8577 Feb, Type 2 diabetes mellitus with hyperglycemia E11.65 ; Type 2 diabetes mellitus with foot ulcer E11.621 ; Type 2 diabetes mellitus with diabetic polyneuropathy E11.42 and Encounter for immunization Z23 [facility] [address] [place] [address] 93146- 0042 Jan, Hypertension 401.9 ; Uncontrolled type 2 diabetes mellitus 250.02 ; Right shoulder pain 719.41 and Ulcer of heel and midfoot 707.14 [facility] [address], [place] [address]- 3759 Dec, Diabetes with other specified manifestations, type II or unspecified type, not stated as uncontrolled 250.80 ; Ulcer of heel and midfoot 707.14 ; Hypertension 401.9 ; Hip pain, left 719.45 and Acute anxiety 300.00 [facility] [address] [place] [address]- 1841 Nov, [facility] [id number] [place] [address] 84726- 6416 Nov, [facility] [id number] [place] [address] 96352- 2686 September, Anxiety attack 300.01 and Cellulitis 682.9 [facility] [address] [place] [address]- 4326 September, [facility] [id number] [place] [address] 10125- 3316 September, [facility] [address], [place] [address]- 4076 September, [facility] [address] [place] [address]- 8143 Aug, [facility] [address] [address] 2245 Aug, [facility] [address] [address]- 2389 Jul, [facility] [address] [place] [address]- 4967 Jul, [facility] [id number] [place] [address]- 2346 Jul, [facility] [address], [place] [address]- 2566 May, [facility] [address] [place] [address] 98472- 6378 May, [facility] [place] [facility] [address] [id number] [place] [address]- 0918 Mar, [facility] [place] [facility] [address] [id number] [place] [address]- 0045 Mar, [facility] [place] [facility] [address] [id number] [place] [address]- 5304 Mar, [facility] [place] [facility] [address] [id number] [place] [address]- 6807 Mar, [facility] [place] [facility] [address] [id number] [place] [address]- 3866 Mar, [facility] [place] [facility] [address] [id number] [place] [address]- 1172 Mar, [facility] [place] [facility] [address] [id number] [place] [address]- 2135 Mar, [facility] [place] [facility] [address] [id number] [place] [address]- 2069 14 Feb, 2014 [facility] [place] [facility] [address] [id number] [place] [address]- 4044 14 Feb, 2014 [facility] [place] [facility] [address] [id number] [place] [address]- 9207 30 Jan, 2014 [facility] [place] [facility] [address] [id number], [place] [address]- 1831 30 Jan, 2014 [facility] [place] [facility] [address] [id number], [place] [address]- 2592 26 Jan, 2013 [facility] [place] [facility] [address] [id number] [place] [address]- 4840 26 Jan, 2014 [facility] [place] [facility] [address] [id number] [place] [address]- 4748 25 Jan, 2014 [facility] [place] [facility] [address] [id number] [place] [address]- 8109 25 Jan, 2014 [facility] [place] [facility] [address] [id number] [place] [address]- 4897 25 Sep, 2013 [facility] [place] [facility] [address] [id number] [place] [address] 2546 25 Sep, 2013 [facility] [place] [facility] [address] [id number] [place] [address] 2546 18 Sep, 2013 [facility] [place] [facility] [address] [id number] [place] [address] 2543 18 Sep, 2013 [facility] [place] [facility] [address] [id number] [place] [address] 2546 06 Sep, 2013 [facility] [place] [facility] [address] [id number] [place] [address]- 9445 06 Sep, 2013 [facility] [place] [facility] [address] [id number] [place] [address] 2549 05 Sep, 2013 [facility] [place] [facility] [address] [id number] [place] [address]- 8797 05 Sep, 2013 [facility] [place] [facility] [address] [id number] [place] [address] 2547 05 Sep, 2013 [facility] [place] [facility] [address] [id number] [place] [address] 2547 05 Sep, 2013 [facility] [place] [facility] [address] [id number] [place] [address]- 2549 05 Sep, 2013 [facility] [place] [facility] [address] [id number] [place] [address] 2541 05 Sep, 2013 [facility] [place] [facility] [address] [id number] [place] [address]- 2545 Dec, 2013 [facility] [place] [facility] [address] [id number] [place] [address]- 6176 Dec, 2013 [facility] [place] [facility] [address] [id number] [place] [address]- 3402 Dec, 2013 [facility] [place] [facility] [address] [id number] [place] [address]- 5685 08 Dec, 2013 [facility] [place] [facility] [address] [id number] [place] [address]- 5217 Dec, [facility] [place] [facility] [address] [id number] [place] [address]- 1383 Dec, [facility] [place] [facility] [address] [id number] [place] [address]- 8658 Dec, [facility] [place] [facility] [address] [id number] [place] [address]- 2049 Dec, [facility] [place] [facility] [address] [id number] [place] [address]- 3027 Dec, [facility] [place] [facility] [address] [id number] [place] [address]- 4543 Dec, [facility] [place] [facility] [address] [id number] [place] [address]- 7855 Nov, [facility] [place] [facility] [address] [id number] [place] [address]- 6908 Nov, [facility] [place] [facility] [address] [id number] [place] [address]- 2205 Nov, [facility] [place] [facility] [address] [id number] [place] [address]- 4797 Nov, [facility] [place] [facility] [address] [id number] [place] [address]- 1158 Nov, [facility] [place] [facility] [address] [id number] [place] [address]- 0816 Nov, [facility] [place] [facility] [address] [id number] [place] [address]- 3823 Oct, [facility] [place] [facility] [address] [id number] [place] [address]- 2239 Oct, [facility] [place] [facility] [address] [id number] [place] [address]- 9944 Oct, [facility] [place] [facility] [address] [id number] [place] [address]- 3830 Oct, [facility] [place] [facility] [address] [id number] [place] [address]- 1556 Oct, [facility] [place] [facility] [address] [id number] [place] [address]- 8103 Oct, [facility] [place] [facility] [address] [id number] [place] [address]- 7789 Oct, [facility] [place] [facility] [address] [id number] [place] [address]- 0477 Oct, [facility] [place] [facility] [address] [id number] [place] [address]- 6792 Oct, [facility] [place] [facility] [address] [id number] [place] [address]- 0172 Oct, [facility] [place] [facility] [address] [id number] [place] [address]- 1584 Oct, [facility] [place] [facility] [address] [id number] [place] [address]- 1269 Oct, [facility] [place] [facility] [address] [id number] [place] [address]- 2757 September, [facility] [place] [facility] [address] [id number] [place] [address]- 6160 September, [facility] [place] [facility] [address] [id number] [place] [address]- 2757 September, [facility] [place] [facility] [address] [id number] [place] [address] Aug, [facility] [place] [facility] [address] [id number] [place] [address] Aug, [facility] [place] [facility] [address] [id number] [place] [address] Jul, [facility] [place] [facility] [address] [id number] [place] [address] Jul, [facility] [place] [facility] [address] [id number] [place] [address] 10 Jul, 2013 [facility] [address] [id number] [place] [address] Jul, [facility] [place] [facility] [address] [id number] [place] [address] Jul, [facility] [place] [facility] [address] [id number] [place] [address] Jul, [facility] [place] [facility] [address] [id number] [place] [address] Jul, [facility] [place] [facility] [address] [id number] [place] [address] Jul, [facility] [place] [facility] [address] [id number] [place] [address] Jul, [facility] [place] [facility] [address] [id number] [place] [address] Jul, [facility] [place] [facility] [address] [id number] [place] [address] Jun, [facility] [place] [facility] [address] [id number] [place] [address] Jun, [facility] [place] [facility] [address] [id number] [place] [address] Jun, [facility] [place] [facility] [address] [id number] [place] [address] Jun, [facility] [place] [facility] [address] [id number] [place] [address] May, [facility] [place] [facility] [address] [id number] [place] [address] May, [facility] [place] [facility] [address] [id number] [place] [address] Apr, [facility] [place] [facility] [address] [id number] [place] [address] Apr, [facility] [place] [facility] [address] [id number] [place] [address] Apr, [facility] [place] [facility] [address] [id number] [place] [address] Apr, [facility] [place] [facility] [address] [id number] [place] [address] Apr, [facility] [place] [facility] [address] [id number] [place] [address] Apr, [facility] [place] [facility] [address] [id number] [place] [address] [address] Apr, [facility] [place] [facility] [address] [id number] [place] [address] Apr, [facility] [place] [facility] [address] [id number] [place] [address] Mar, [facility] [place] [facility] [address] [id number], [place] [address] Mar, [facility] [place] [facility] [address] [id number] [place] [address] Mar, [facility] [place] [facility] [address] [id number], [place] [address] Mar, [facility] [place] [facility] [address] [id number], [place] [address] Mar, [facility] [place] [facility] [address] [id number], [place] [address] Mar, [facility] [place] [facility] [address] [id number] [place] [address] 47[address] Feb, [facility] [place] [facility] [address] [id number], [place] [address] Feb, [facility] [place] [facility] [address] [id number], [place] [address] 24[address] Feb, [facility] [place] [facility] [address] [id number] [place] [address] 3029 18 Feb, 2013 [facility] [address] [id number] [place] [address]- [address] 14 Feb, 2013 [facility] [place] [facility] [address] [id number] [place] [address]- 2619 14 Feb, 2013 [facility] [place] [facility] [address] [id number] [place] [address]- 3938 04 Feb, 2013 [facility] [place] [facility] [address] [id number] [place] [address]- 7590 27 Jan, 2013 [facility] [place] [facility] [address] [id number] [place] [address]- 9552 26 Jan, 2013 [facility] [place] [facility] [address] [id number] [place] [address]- 4838 19 Jan, 2013 [facility] [place] [facility] [address] [id number] [place] [address]- 7812 05 Jan, 2013 [facility] [place] [facility] [address] [id number] [place] [address]- 3541 Dec, [facility] [place] [facility] [address] [id number] [place] [address]- 6126 Dec, [facility] [place] [facility] [address] [id number] [place] [address]- 0217 Dec, [facility] [place] [facility] [address] [id number] [place] [address]- 3626 Nov, [facility] [place] [facility] [address] [id number] [place] [address]- 7995 Nov, [facility] [place] [facility] [address] [id number] [place] [address]- 7077 16 Nov, 2012 [facility] [place] [facility] [address] [id number] [place] [address]- 9899 Nov, [facility] [place] [facility] [address] [id number] [place] [address]- 2606 Nov, [facility] [place] [facility] [address] [id number] [place] [address]- 7525 Nov, [facility] [address] [id number] [place] [address]- 6637 Oct, [facility] [place] [facility] [address] [id number] [place] [address]- 2655 Oct, [facility] [place] [facility] [address] [id number] [place] [address]- 0938 Oct, [facility] [address] [id number] [place] [address]- 1987 Oct, [facility] [place] [facility] [address] [id number] [place] [address]- 0858 Oct, [facility] [address] [id number] [place] [address]- 5687 Oct, [facility] [address] [id number] [place] [address]- 3442 September, [facility] [place] [facility] [address] [id number] [place] [address]- 2942 September, [facility] [place] [facility] [address] [id number] [place] [address]- 1831 September, [facility] [place] [facility] [address] [id number] [place] [address]- 2928 September, [facility] [place] [facility] [address] [id number] [place] [address]- 4270 Aug, [facility] [place] [facility] [address] [id number] [place] [address]- 5198 Aug, [facility] [place] [facility] [address] [id number] [place] [address]- 9353 Jul, [facility] [place] [facility] [address] [id number] [place] [address]- 1107 Jul, [facility] [place] [facility] [address] [id number] [place] [address]- 0016 18 Jul, 2012 [facility] [address] [id number] [place] [address]- 6489 15 Jul, 2012 [facility] [place] [facility] [address] [id number] [place] [address]- 1526 13 Jul, 2012 [facility] [address] [id number] [place] [address]- 2127 08 Jul, 2012 [facility] [place] [facility] [address] [id number] [place] [address]- 8092 20 Jun, 2012 [facility] [address] [id number] [place] [address]- 5302 Jun, [facility] [address] [id number] [place] [address]- 6707 17 May, 2012 [facility] [address] [id number] [place] [address]- 4613 May, [facility] [address] [id number] [place] [address]- 4436 18 Apr, [address] [facility] [address] [id number] [place] [address]- 9898 18 Apr, 2012 [facility] [address] [id number] [place] [address]- 4973 Apr, [facility] [address] [id number] [place] [address]- 5550 13 Apr, 2012 [facility] [place] [facility] [address] [id number] [place] [address]- 0056 10 Apr, 2012 [facility] [place] [facility] [address] [id number] [place] [address]- 2435 10 Apr, 2012 [facility] [place] [facility] [address] [id number] [place] [address] 07 Apr, 2012 [facility] [place] [facility] [address] [id number] [place] [address]448 07 Apr, 2012 [facility] [place] [facility] [address] [id number] [place] [address]- 9613 07 Apr, 2012 [facility] [place] [facility] [address] [id number] [place] [address]- 5982 Apr, [facility] [place] [facility] [address] [id number] [place] [address]- 0166 Apr, [facility] [place] [facility] [address] [id number] [place] [address]- 8048 Apr, [facility] [place] [facility] [address] [id number] [place] [address]- 8659 Apr, [facility] [place] [facility] [address] [id number] [place] [address]- 9592 Apr, [facility] [place] [facility] [address] [id number] [place] [address]- 0811 Apr, [facility] [place] [facility] [address] [id number] [place] [address]- [address] Apr, [facility] [address] [id number] [place] [address]- 8221 Mar, [facility] [place] [facility] [address] [id number] [place] [address]- 1598 Mar, [facility] [place] [facility] [address] [id number] [place] [address]- 6475 Mar, [facility] [place] [facility] [address] [id number] [place] [address]- 2270 Mar, [facility] [place] [facility] [address] [id number] [place] [address]- 9576 Mar, [facility] [place] [facility] [address] [id number] [place] [address]- 7876 Mar, [facility] [place] [facility] [address] [id number] [place] [address]- 7994 Mar, [facility] [place] [facility] [address] [id number] [place] [address]- 5765 Mar, [facility] [place] [facility] [address] [id number] [place] [address]- 5224 Mar, [facility] [place] [facility] [address] [id number] [place] [address]- 1556 Mar, [facility] [place] [facility] [address] [id number] [place] [address]- 5138 Feb, [facility] [place] [facility] [address] [id number] [place] [address]- 5146 Feb, [facility] [place] [facility] [address] [id number] [place] [address]- 1759 Feb, [facility] [place] [facility] [address] [id number] [place] [address]- 2636 Feb, [facility] [place] [facility] [address] [id number] [place] [address]- 0128 Feb, [facility] [place] [facility] [address] [id number] [place] [address]- 7037 Feb, [facility] [place] [facility] [address] [id number] [place] [address]- 9142 Jan, [facility] [place] [facility] [address] [id number] [place] [address]- 1676 Dec, [facility] [place] [facility] [address] [id number] [place] [address]- 9735 Dec, [facility] [place] [facility] [address] [id number] [place] [address]- 4083 Dec, [facility] [place] [facility] [address] [id number] [place] [address]- 2291 Dec, [facility] [place] [facility] [address] [id number] [place] [address]- 6326 Nov, [facility] [place] [facility] [address] [id number] [place] [address]- 5099 Nov, [facility] [place] [facility] [address] [id number] [place] [address]- 1863 Nov, [facility] [address] [id number] [place] [address]- 3129 Nov, [facility] [place] [facility] [address] [id number] [place] [address]- 7862 Oct, [facility] [address] [id number] [place] [address]- 7720 Oct, [facility] [place] [facility] [address] [id number] [place] [address]- 4460 Oct, [facility] [address] [id number] [place] [address]- 0439 Oct, [facility] [address] [id number] [place] [address]- 7414 Oct, [facility] [address] [id number] [place] [address]- 6271 September, [facility] [address] [id number] [place] [address]- 4577 September, [facility] [address] [id number] [place] [address]- 9513 September, [facility] [address] [id number] [place] [address]- 1226 September, [facility] [address] [id number] [place] [address]- 8220 September, [facility] [place] [facility] [address] [id number] [place] [address]- 1946 September, [facility] [place] [facility] [address] [id number] [place] [address]- 5995 September, [facility] [place] [facility] [address] [id number] [place] [address]- 3376 September, [facility] [address] [id number] [place] [address]- 2357 Aug, [facility] [address] [id number] [place] [address]- 0935 25 Aug, 2011 [facility] [place] [facility] [address] [id number] [place] [address]- 4916 19 Aug, 2011 [facility] [place] [facility] [address] [id number] [place] [address]- 7176 19 Aug, 2011 [facility] [place] [facility] [address] [id number] [place] [address]- 6133 18 Aug, 2011 [facility] [place] [facility] [address] [id number] [place] [address]- 2767 17 Aug, 2011 [facility] [place] [facility] [address] [id number] [place] [address]- 3492 13 Aug, 2011 [facility] [place] [facility] [address] [id number] [place] [address]- 7391 12 Aug, 2011 [facility] [place] [facility] [address] [id number] [place] [address]- 5497 10 Aug, 2011 [facility] [place] [facility] [address] [id number] [place] [address]- 7275 09 Aug, 2011 [facility] [place] [facility] [address] [id number] [place] [address]- 9310 02 Aug, 2011 [facility] [place] [facility] [address] [id number] [place] [address]- 0672 02 Aug, 2011 [facility] [place] [facility] [address] [id number] [place] [address]- 1849 29 Jul, 2011 [facility] [place] [facility] [address] [id number] [place] [address]- 9626 28 Jul, 2011 [facility] [place] [facility] [address] [id number] [place] [address]- 0998 27 Jul, 2011 [facility] [place] [facility] [address] [id number] [place] [address]- 2433 23 Jul, 2011 [facility] [place] [facility] [address] [id number] [place] [address]- 8531 Jul, [facility] [address] [id number] [place] [address]- 6474 Jul, [facility] [place] [facility] [address] [id number] [place] [address]- 1826 14 Jul, 2011 [facility] [place] [facility] [address] [facility] [id number] [place] [address]- 4456 Jul, [facility] [place] [facility] [address] [id number] [place] [address]- 1035 Jul, [facility] [place] [facility] [address] [id number] [place] [address]- 7847 24 Jun, 2011 [facility] [place] [facility] [address] [id number] [place] [address]- 9875 Jun, [facility] [place] [facility] [address] [id number] [place] [address]- 4883 Jun, [facility] [place] [facility] [address] [id number] [place] [address]- 2173 14 Jun, 2011 [facility] [place] [facility] [address] [id number] [place] [address]- 1822 Jun, [facility] [place] [facility] [address] [facility] [id number] [place] [address]- 4380 Jun, [facility] [place] [facility] [address] [facility] [id number] [place] [address]- 8342 Jun, [facility] [place] [facility] [address] [id number] [place] [address]- 4195 May, [facility] [place] [facility] [address] [id number] [place] [address]- 2766 May, [facility] [place] [facility] [address] [facility] [id number] [place] [address]- 1173 May, [facility] [place] [facility] [address] [facility] [id number] [place] [address]- 5405 May, [facility] [place] [facility] [address] [id number] [place] [address]- 2546 May, [facility] [place] [facility] [address] [id number] [place] [address]- 5516 May, [facility] [place] [facility] [address] [id number] [place] [address]- 2546 May, [facility] [place] [facility] [address] [id number] [place] [address]- 9006 Apr, [facility] [place] [facility] [address] [id number] [place] [address]- 1428 Apr, [facility] [place] [facility] [address] [id number] [place] [address]- 2396 Apr, [facility] [place] [facility] [address] [id number] [place] [address]- 1569 Apr, [facility] [place] [facility] [address] [id number] [place] [address]- 4703 Apr, [facility] [place] [facility] [address] [id number] [place] [address]- 2871 Apr, [facility] [place] [facility] [address] [id number] [place] [address]- 2843 Apr, [facility] [place] [facility] [address] [id number] [place] [address]- 8462 Apr, [facility] [place] [facility] [address] [id number] [place] [address]- 5056 Apr, [facility] [place] [facility] [address] [id number] [place] [address]- 5309 Mar, [facility] [place] [facility] [address] [id number] [place] [address]- 8236 Mar, [facility] [place] [facility] [address] [id number] [place] [address]- 2546 Mar, [facility] [place] [facility] [address] [id number] [place] [address]- 1302 Mar, [facility] [place] [facility] [address] [id number] [place] [address]- 0658 Mar, [facility] [place] [facility] [address] [id number] [place] [address]- 6466 Feb, [facility] [place] [facility] [address] [id number] [place] [address]- 2876 Feb, [facility] [place] [facility] [address] [id number] [place] [address]- 3776 Feb, [facility] [place] [facility] [address] [id number] [place] [address]- 6325 Dec, [facility] [place] [facility] [address] [id number] [place] [address]- 5638 Nov, [facility] [place] [facility] [address] [id number] [place] [address]- 9520 Apr, [facility] [place] [facility] [address] [id number] [place] [address]- 9998 Apr, [facility] [place] [facility] [address] [id number] [place] [address]- 5661 16 Apr, 2010 [facility] [place] [facility] [address] [id number] [place] [address]- 9854 Apr, [facility] [place] [facility] [address] [id number], [place] [address]- 7096 Apr, [facility] [place] [facility] [address] [id number], [place] [address]- 5022 Apr, [facility] [place] [facility] [address] [id number] [place] [address]- 3306 Apr, [facility] [place] [facility] [address] [id number] [place] [address]- 8072 Apr, [facility] [place] [facility] [address] [id number] [place] [address]- 3986 Mar, [facility] [place] [facility] [address] [id number] [address]- 4953 Mar, [facility] [id number], [place] [address]- 4526 Mar, [facility] [id number], [place] [address]- 2078 Mar, [facility] [id number], [place] [address]- 6888 Mar, [facility] [id number], [place] [address]- 3197 Mar, [facility] [id number] [place] [address]- 8639 Mar, [facility] [id number] [place] [address]- 2291 Mar, [facility] [id number] [place] [address]- 1598 Mar, [facility] [id number], [place] [address]- 3629 Mar, IMMUNIZATIONS No Known Immunizations SOCIAL HISTORY Never Assessed REASON FOR VISIT PLAN OF CARE VITAL SIGNS MEDICATIONS Medication Instructions Dosage Frequency Start Date End Date Duration Status Morphine Sulfate (Concentrate) 20 MG/ML Orally every 1 hr, prn pain 0.25-0.5 ml Nov, Active RESULTS No Results PROCEDURES No [...]
--- OUTSIDE RECORDS SUMMARY | 2018-04-22 23:06 | XMS REPORT ---
Author Author CARLOS LARA [facility] Address [address] [place] [address] Care Team Providers Care Meteorology Teacher Name Role Phone CARLOS LARA Unavailable PROBLEMS Type Condition ICD9-CM Code DTI71-YY Code Onset Dates Condition Status SNOMED Code Problem Iron deficiency anemia, unspecified iron deficiency anemia type D50.9 Active 62523707 Problem Mixed hyperlipidemia E78.2 Active 556254069 Problem Decreased diffusion capacity R94.2 Active 30323810 Problem Severe sleep apnea G47.30 Active 19460810 Problem Stenosis of carotid artery, unspecified laterality I65.29 Active 45533842 Problem Coronary artery disease involving shinnecock coronary artery of shinnecock heart, angina presence unspecified I25.10 Active 7682608559169 Problem Generalized osteoarthritis M15.9 Active 907469903 Problem Aortic valve sclerosis I35.8 Active 60826702 Problem Essential hypertension I10 Active 72825359 Problem Transient cerebral ischemia, unspecified type G45.9 Active 621943426 Problem Renal osteodystrophy N25.0 Active 14869256 Problem Anxiety about health F41.8 Active 652584280 Problem 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 Active 3211149 Problem Type 2 diabetes mellitus with unspecified complications E11.8 Active 14351821 Problem alf 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.4 Active 005507992 Problem Chronic kidney disease, unspecified CKD stage N18.9 Active 932235444 Problem Inability to bear weight R26.89 Active 892823913 Problem Chronic kidney disease (CKD), stage 4 (severe) N18.4 Active 611372995 Problem Type 2 diabetes mellitus with foot ulcer E11.621 Active 129342951 Problem Type 2 diabetes mellitus with hyperglycemia E11.65 Active 74099089 Problem Type 2 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 Active 13549065 Problem Bladder spasms N32.89 Active 224807818 Problem Pain R52 Active 43320711 Problem Other chronic pain G89.29 Active 99804603 Problem Slow transit constipation K59.01 Active 96775883 Problem Chronic kidney disease, stage 3 (moderate) N18.3 Active 736158527 Problem Diarrhea, unspecified type R19.7 Active 26413658 Problem Type 2 diabetes mellitus with diabetic polyneuropathy E11.42 Active 182946288 Problem Anemia in other chronic diseases classified elsewhere D63.8 Active 948881402 Problem BMI 50.0-59.9, adult Z68.43 Active 500920879 Problem Port catheter in place Z95.828 Active 511439393 Problem Trochanteric bursitis of left hip M70.62 Active 533162931414408 Problem Hypoxemia R09.02 Active 877837027 ALLERGIES No Information ENCOUNTERS Encounter Location Date Diagnosis [place] [address] [address] Jan, Inability to bear weight R26.89 [facility] [address] [place] [id number] Dec, Low back pain M54.5 ; Other chronic pain G89.29 and Chronic kidney disease (CKD), stage 4 (severe) N18.4 [place] [address] [place] [id number] [place] [address] 42328- 5582 Dec, Type 2 diabetes mellitus with hyperglycemia E11.65 [place] [address] [place] [id number] [place] [address] 23621- 4817 Dec, [facility] [address] [place] [id number] Dec, Type 2 diabetes mellitus with hyperglycemia E11.65 ; Essential hypertension I10 ; Generalized osteoarthritis M15.9 ; Mixed hyperlipidemia E78.2 ; Hypoxia R09.02 ; Port catheter in place Z95.828 ; Anemia due to acute blood loss D62 ; Chronic kidney disease, unspecified CKD stage N18.9 and Severe sleep apnea G47.30 [place] [address] [place] [id number] [place] [address] 16813- 8861 Dec, Type 2 diabetes mellitus with hyperglycemia E11.65 [place] [address] [address]- 6328 Dec, [facility] [id number] [place] [address] 03079- 2197 Dec, Type 2 diabetes mellitus with hyperglycemia E11.65 [facility] [address] [place] [id number] [place] [address] 88018- 8100 Dec, Left leg pain M79.605 [facility] [address] [place] [id number] [place] [address] 11019- 6809 Nov, Slow transit constipation K59.01 [facility] [address] [place] [id number] [place] [address] 14312- 5174 Nov, [facility] [address] [place] [id number] Nov, Anemia due to acute blood loss D62 [facility] [address] [id number] [place] [address] 19802- 5305 Nov, [facility] [address] [place] [id number] [place] [address] 79245- 0970 Nov, Bladder spasms N32.89 [facility] [address] [place] [address] [id number] [place] [address] 89299- 5853 Nov, Pain R52 [facility] [address] [place] [id number] Nov, Anemia due to acute blood loss D62 [facility] [id number] [place] [address] 62539- 1992 Nov, Pain in right hip M25.551 and Pain in left hip M25.552 [facility] [address] [place] [address] Nov, [facility] [address] [place] [id number] [place] [address] 24631- 1792 Nov, [facility] [id number] [address] 1411 Nov, [facility] [id number] [place] [address] 75302- 9006 Nov, [place] [id number] [place] [address] 87371- 9703 Oct, [facility] [address] [place] [id number] [place] [address] 57076- 4069 Oct, [facility] [address] [place] [id number] 26 Oct, 2017 Encounter for examination for admission to fdc Z02.2 ; Chronic kidney disease, unspecified CKD stage N18.9 ; Type 2 diabetes mellitus with unspecified complications E11.8 ; 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 ; Essential hypertension I10 ; Hypoxia R09.02 ; Severe sleep apnea G47.30 ; Stenosis of carotid artery, unspecified laterality I65.29 ; Generalized osteoarthritis M15.9 ; Coronary artery disease involving shinnecock coronary artery of shinnecock heart, angina presence unspecified I25.10 ; Port catheter in place Z95.828 and Hemorrhoids, unspecified hemorrhoid type K64.9 [place] [address] [place] [id number] [place] [address] 71729- 7661 Oct, [facility] [address] [place] [id number] [place] [address] 57708- 7936 Oct, [place] [address] [place] [id number] [place] [address] 44756- 1417 Oct, [place] [address] [place] [id number] [place] [address] 42089- 1203 Oct, [facility] [id number] [place] [address] 56937 -3952 September, BMI 50.0-59.9, adult Z68.43 [facility] [address] [place] [id number] [place] [address] 83180- 9382 September, [facility] [address] [place] [id number] [place] [address] 02382- 5928 September, [facility] [address] [place] [id number] [place] [address] 73258- 8600 Aug, Type 2 diabetes mellitus with foot ulcer E11.621 ; Transient cerebral ischemia, unspecified type G45.9 ; Essential hypertension I10 ; Mixed hyperlipidemia E78.2 and BMI 50.0-59.9, adult Z68.43 [place] [address] [place] [id number] [place] [address] 67361- 7972 17 Aug, 2017 [place] [address] [place] [id number] [place] [address] 28089- 6112 14 Jul, 2017 Anxiety about health F41.8 and Mixed hyperlipidemia E78.2 [place] [address] 63168- 4961 13 Jul, 2017 [place] [address] 76646- 0047 Jun, [place] [address] [place] [id number] [place] [address] 54357- 7662 12 Jun, 2017 Type 2 diabetes mellitus with hyperglycemia E11.65 ; Type 2 diabetes mellitus with foot ulcer E11.621 ; Port catheter in place Z95.828 ; 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 ; Contact with and (suspected) exposure to potentially hazardous body fluids Z77.21 and BMI 50.0-59.9, adult Z68.43 [place] [address] [place] [id number] [place] [address] 33477- 5943 May, [place] [address] [place] [id number] [place] [address] 26172- 0958 May, Open wound of right great toe, subsequent encounter S91.101D [place] [address] [place] [id number] [place] [address] 29950- 4834 May, [place] [address] [place] [id number] [place] [address] 71341- 5180 Apr, [place] [address] 01153- 4291 Apr, [place] [address] [place] [id number] [place] [address] 49580- 1589 Apr, [place] [id number] [place] [address] 85716- 9830 14 Apr, 2017 Type 2 diabetes mellitus with diabetic polyneuropathy E11.42 [place] [address] [place] [id number] [place] [address] 42524- 1010 13 Apr, 2017 Open wound of right great toe, subsequent encounter S91.101D [address] 17395- 2268 08 Apr, 2017 Open wound of right great toe, subsequent encounter S91.101D ; Breast pain, left N64.4 ; Breast cancer screening Z12.31 ; Type 2 diabetes mellitus with foot ulcer E11.621 ; Essential hypertension I10 and BMI 50.0-59.9, adult Z68.43 [place] [id number] [place] [address] 00503- 2412 29 Mar, 2017 Encounter for immunization Z23 [place] [id number] [place] [address] 91281- 6275 19 Mar, 2017 [place] [id number] [place] [address] 60484- 0193 13 Mar, 2017 [place] [id number] [place] [address] 78808- 5542 10 Mar, 2017 Type 2 diabetes mellitus with diabetic polyneuropathy E11.42 ; Type 2 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 ; Type 2 diabetes mellitus with foot ulcer E11.621 ; Essential hypertension I10 ; Hypoxemia R09.02 and Generalized osteoarthritis M15.9 [place] [id number] [place] [address] 59433- 8039 02 Mar, 2017 Chronic kidney disease, stage 3 (moderate) N18.3 ; Acute cystitis without hematuria N30.00 ; Essential hypertension I10 ; Muscle spasms of neck M62.838 ; Type 2 diabetes mellitus with diabetic polyneuropathy E11.42 and BMI 50.0-59.9, adult Z68.43 [place] [address] [place] [id number] [place] [address] 73789- 6110 30 Feb, 2017 [facility] [address] [address] Feb, [facility] [address] [place] [id number] [address]- 1873 Feb, [facility] [address], [place] [address]- 0550 Feb, [facility] [address] [place] [id number] [place] [address] 84818- 8753 Feb, [facility] [address] [place] [id number] [place] [address] 60171- 3408 Feb, [facility] [address] [place] [id number] [place] [address] 51323- 7639 Feb, Mixed hyperlipidemia E78.2 [facility] [address] [place] [id number] [address]- 4550 Feb, [facility] [address] [place] [id number] [address]- 6327 Jan, [facility] [address], [place] [address]- 8020 Jan, Generalized osteoarthritis M15.9 [facility] [address] [address]- 6237 Oct, [facility] [address] [address]- 9796 Jul, [facility] [address] [address]- 5063 13 Jul, 2016 [facility] [address] [address]- 0434 02 Jul, 2017 Type 2 diabetes mellitus with hyperglycemia E11.65 ; Chronic kidney disease, stage 3 (moderate) N18.3 ; Type 2 diabetes mellitus with foot ulcer E11.621 ; Type 2 diabetes mellitus with diabetic polyneuropathy E11.42 ; Generalized osteoarthritis M15.9 ; Trochanteric bursitis of left hip M70.62 and Tinea pedis of both feet B35.3 [place] [id number] [place] [address] 94315- 9151 13 Jun, 2016 [facility] [address] [place] [id number] [place] [address] 35276- 0472 Apr, [facility] [address] [place] [id number] [place] [address] 73843- 0526 Apr, [facility] [address] [place] [id number] [place] [address] 00439- 1953 Mar, [place] [address] [place] [id number] [place] [address] 20488- 4401 Feb, Encounter for immunization Z23 [place] [address] [place] [id number] [place] [address] 43556- 1084 Feb, [place] [address] [place] [id number] [place] [address] 91042- 9097 Feb, Type 2 diabetes mellitus with hyperglycemia E11.65 ; Encounter for immunization Z23 ; Diarrhea, unspecified type R19.7 ; Essential hypertension I10 ; Mixed hyperlipidemia E78.2 ; Hypoxia R09.02 ; 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 and Type 2 diabetes mellitus with foot ulcer E11.621 [place] [id number] [place] [address] 65771- 4535 Jan, [place] [address] [place] [id number] [place] [address] 54556- 2187 Jan, Type 2 diabetes mellitus with hyperglycemia E11.65 and Pneumonia due to infectious organism, unspecified laterality, unspecified part of lung J18.9 [place] [id number] [place] [address] 72516- 4117 Jan, [place] [address] [place] [id number] [place] [address] 38558- 7547 Jan, [facility] [address] [place] [id number] [place] [address] 45436- 3137 Oct, Type 2 diabetes mellitus with hyperglycemia E11.65 ; Generalized osteoarthritis M15.9 and Chronic prescription opiate use Z79.891 [facility] [id number] [place] [address] 24158- 2322 September, [facility] [address] [place] [id number] [place] [address] 38902- 0371 Aug, [facility] [address] [place] [id number] [place] [address] 79493- 2347 Aug, [facility] [address] [place] [id number] [place] [address] 37003- 1146 Aug, [facility] [address] [place] [id number] [place] [address] 72341- 9824 Aug, [facility] [address] [place] [id number] [place] [address] 96233- 7307 Jun, [facility] [address] [place] [id number] [place] [address] 11861- 9092 Jun, Type 2 diabetes mellitus with hyperglycemia E11.65 ; Mixed hyperlipidemia E78.2 ; Vaginal itching L29.8 ; Neck muscle spasm M62.838 and Skin abrasion T14.8 [facility] [id number] [place] [address] 71038- 6538 Apr, [facility] [address] [id number] [place] [address]- 8033 Apr, [facility] [address] [place] [id number] [place] [address] 43649- 4747 Mar, [facility] [id number] [place] [address] 00867- 0701 Feb, [facility] [address] [place] [id number] [place] [address] 82143- 6556 Feb, Type 2 diabetes mellitus with hyperglycemia E11.65 ; Type 2 diabetes mellitus with foot ulcer E11.621 ; Type 2 diabetes mellitus with diabetic polyneuropathy E11.42 and Encounter for immunization Z23 [facility] [address] [place] [id number] [address] Jan, Hypertension 401.9 ; Uncontrolled type 2 diabetes mellitus 250.02 ; Right shoulder pain 719.41 and Ulcer of heel and midfoot 707.14 [facility] [address] [id number] [place] [address]- 1935 Dec, Diabetes with other specified manifestations, type II or unspecified type, not stated as uncontrolled 250.80 ; Ulcer of heel and midfoot 707.14 ; Hypertension 401.9 ; Hip pain, left 719.45 and Acute anxiety 300.00 [facility] [address] [place] [id number] [place] [address] 16823- 5266 Nov, [facility] [address] [place] [id number] [place] [address] 24128- 0916 Nov, [facility] [address] [place] [id number] [place] [address] 03157- 0874 September, Anxiety attack 300.01 and Cellulitis 682.9 [facility] [address] [place] [id number] [place] [address] 29409- 9618 September, [facility] [address] [place] [id number] [place] [address] 77020- 7919 September, [facility] [address], [place] [address]- 7398 September, [facility] [address] [address]- 1714 Aug, [facility] [address], [place] [address]- 3481 Aug, [facility] [address] [place] [id number] [place] [address] [id number]- 3110 Jul, [facility] [address] [address] 9813 Jul, [facility] [address] [place] [address] [id number]- 2782 Jul, [facility] [place] [facility] [address] [id number] [place] [address]- 3027 May, [facility] [place] [facility] [address] [id number] [place] [address]- 1347 May, [facility] [place] [facility] [address] [id number] [place] [address]- 7763 Mar, [facility] [place] [facility] [address] [id number] [place] [address]- 7345 Mar, [facility] [place] [facility] [address] [id number] [place] [address]- 5692 Mar, [facility] [place] [facility] [address] [id number] [place] [address]- 9471 Mar, [facility] [place] [facility] [address] [id number] [place] [address]- 2819 Mar, [facility] [place] [facility] [address] [id number] [place] [address]- 8411 Mar, [facility] [place] [facility] [address] [id number] [place] [address]- 3703 Mar, [facility] [place] [facility] [address] [id number] [place] [address]- 6497 Feb, [facility] [place] [facility] [address] [id number] [place] [address]- 6159 Feb, [facility] [place] [facility] [address] [id number] [place] [address]- 7688 30 Jan, 2014 [facility] [place] [facility] [address] [id number] [place] [address]- 6653 30 Jan, 2014 [facility] [place] [facility] [address] [id number] [place] [address]- 4972 Jan, [facility] [place] [facility] [address] [id number] [place] [address]- 1174 Jan, [facility] [place] [facility] [address] [id number] [place] [address]- 9583 25 Sep, 2013 [facility] [place] [facility] [address] [id number] [place] [address] 2546 25 Sep, 2013 [facility] [place] [facility] [address] [id number] [place] [address] 2546 25 Sep, 2013 [facility] [place] [facility] [address] [id number] [place] [address] 2543 25 Sep, 2013 [facility] [place] [facility] [address] [id number] [place] [address] 2545 18 Sep, 2013 [facility] [place] [facility] [address] [id number] [place] [address]- 9832 18 Sep, 2013 [facility] [place] [facility] [address] [id number] [place] [address]- 1326 06 Sep, 2013 [facility] [place] [facility] [address] [id number] [place] [address]- 6706 06 Sep, 2013 [facility] [place] [facility] [address] [id number] [place] [address]- 8904 05 Sep, 2013 [facility] [place] [facility] [address] [id number] [place] [address] 2549 05 Sep, 2013 [facility] [place] [facility] [address] [id number] [place] [address] 2540 05 Sep, 2013 [facility] [place] [facility] [address] [id number] [place] [address] 2542 05 Sep, 2013 [facility] [place] [facility] [address] [id number], [place] [address]- 2540 05 Sep, 2013 [facility] [place] [facility] [address] [id number] [place] [address] 2544 05 Sep, 2013 [facility] [place] [facility] [address] [id number] [place] [address]- 5198 Dec, [facility] [place] [facility] [address] [id number] [place] [address]- 1176 Dec, [facility] [place] [facility] [address] [id number] [place] [address]- 0839 Dec, 2013 [facility] [place] [facility] [address] [id number] [place] [address]- 7613 Dec, [facility] [place] [facility] [address] [id number] [place] [address]- 1535 Dec, [facility] [place] [facility] [address] [id number] [place] [address]- 2146 Dec, 2013 [facility] [place] [facility] [address] [id number] [place] [address]- 1249 Dec, 2013 [facility] [place] [facility] [address] [id number] [place] [address]- 1010 Dec, [facility] [place] [facility] [address] [id number] [place] [address]- 8808 Dec, [facility] [place] [facility] [address] [id number] [place] [address]- 5937 Dec, [facility] [place] [facility] [address] [id number] [place] [address]- 5820 Nov, [facility] [place] [facility] [address] [id number] [place] [address]- 5788 Nov, [facility] [place] [facility] [address] [id number] [place] [address]- 0006 Nov, [facility] [place] [facility] [address] [id number] [place] [address]- 1923 Nov, [facility] [place] [facility] [address] [id number] [place] [address]- 3408 Nov, [facility] [place] [facility] [address] [id number] [place] [address]- 3543 Nov, [facility] [place] [facility] [address] [id number] [place] [address]- 1125 Oct, [facility] [place] [facility] [address] [id number] [place] 3450 Oct, [facility] [place] [facility] [address] [id number] [place] [address]- 4841 Oct, [facility] [place] [facility] [address] [id number] [place] [address]- 1580 Oct, [facility] [place] [facility] [address] [id number] [place] [address]- 4469 Oct, [facility] [place] [facility] [address] [id number] [place] [address] Oct, [facility] [place] [facility] [address] [id number] [place] [address] Oct, [facility] [place] [facility] [address] [id number] [place] [address] Oct, [facility] [place] [facility] [address] [id number] [place] [address] Oct, [facility] [place] [facility] [address] [id number] [place] [address] Oct, [facility] [place] [facility] [address] [id number] [place] [address] Oct, [facility] [place] [facility] [address] [id number] [place] [address] Oct, [facility] [place] [facility] [address] [id number] [place] [address] September, [facility] [place] [facility] [address] [id number] [place] [address] September, [facility] [place] [facility] [address] [id number] [place] [address] September, [facility] [place] [facility] [address] [id number] [place] [address] Aug, [facility] [place] [facility] [address] [id number] [place] [address] Aug, [facility] [place] [facility] [address] [id number] [place] [address] 13 Jul, 2013 [facility] [place] [facility] [address] [id number] [place] [address] Jul, [facility] [place] [facility] [address] [id number] [place] [address] Jul, [facility] [place] [facility] [address] [id number] [place] [address] Jul, [facility] [place] [facility] [address] [id number] [place] [address] Jul, [facility] [place] [facility] [address] [id number] [place] [address] Jul, [facility] [place] [facility] [address] [id number] [place] [address] Jul, [facility] [place] [facility] [address] [id number] [place] [address] Jul, [facility] [place] [facility] [address] [id number] [place] [address] Jul, [facility] [place] [facility] [address] [id number] [place] [address] Jul, [facility] [place] [facility] [address] [id number] [place] [address] Jun, [facility] [place] [facility] [address] [id number] [place] [address] Jun, [facility] [place] [facility] [address] [id number] [place] [address] Jun, [facility] [place] [facility] [address] [id number] [place] [address] Jun, [facility] [place] [facility] [address] [id number] [place] [address] May, [facility] [place] [facility] [address] [id number] [place] [address] May, [facility] [place] [facility] [address] [id number] [place] [address] Apr, [facility] [address] [id number] [place] [address] 7241 Apr, [facility] [address] [id number] [place] [address] 6666 Apr, [facility] [place] [facility] [address] [id number] [place] [address] Apr, [facility] [address] [id number] [place] [address] 4999 Apr, [facility] [address] [id number] [place] [address] 7011 Apr, [facility] [address] [id number] [place] [address] 7933 Apr, [facility] [address] [id number] [place] [address]- 5855 Apr, [facility] [address] [id number] [place] [address] 0256 Mar, [facility] [address] [id number] [place] [address]- 6186 Mar, [facility] [place] [facility] [address] [id number] [place] [address] 8350 Mar, [facility] [place] [facility] [address] [id number], [place] [address] Mar, [facility] [place] [facility] [address] [id number] [place] [address] 1356 Mar, [facility] [place] [facility] [address] [id number] [place] [address]- 2587 Mar, [facility] [place] [facility] [address] [id number] [place] [address] 5240 Feb, [facility] [place] [facility] [address] [id number], [place] [address] 30 Feb, 2013 [facility] [place] [facility] [address] [id number] [place] [address]- 2726 18 Feb, 2013 [facility] [place] [facility] [address] [id number] [place] [address]- 5831 18 Feb, 2013 [facility] [place] [facility] [address] [id number] [place] [address]- 0306 14 Feb, 2013 [facility] [place] [facility] [address] [id number] [place] [address]- 4970 14 Feb, 2013 [facility] [place] [facility] [address] [id number] [place] [address] 04 Feb, 2013 [facility] [place] [facility] [address] [id number] [place] [address]- 3621 27 Jan, 2013 [facility] [place] [facility] [address] [id number] [place] [address]- 5045 26 Jan, 2013 [facility] [place] [facility] [address] [id number] [place] [address]- 8378 19 Jan, 2013 [facility] [place] [facility] [address] [id number] [place] [address]- 5065 05 Jan, 2013 [facility] [place] [facility] [address] [id number] [place] [address]- 4736 Dec, [facility] [place] [facility] [address] [id number] [place] [address]- 6723 Dec, [facility] [place] [facility] [address] [id number] [place] [address]- 2500 Dec, [facility] [place] [facility] [address] [id number] [place] [address]- 3656 Nov, [facility] [place] [facility] [address] [id number] [place] [address]- 0070 Nov, [facility] [place] [facility] [address] [id number] [place] [address]- 0688 Nov, [facility] [place] [facility] [address] [id number] [place] [address]- 1024 10 Nov, 2012 [facility] [address] [id number] [place] [address]- 4477 Nov, [facility] [address] [id number] [place] [address]- 7006 Nov, [facility] [address] [id number] [place] [address]- 0349 Oct, [facility] [address] [id number] [place] [address]- 4994 Oct, [facility] [address] [id number] [place] [address]- 3912 Oct, [facility] [address] [id number] [place] [address]- 6428 Oct, [facility] [address] [id number] [place] [address]- 3716 Oct, [facility] [address] [id number] [place] [address]- 5735 Oct, [facility] [address] [id number] [place] [address]- 3668 September, [facility] [address] [id number] [place] [address]- 7948 September, [facility] [address] [id number] [place] [address]- 1434 September, [facility] [address] [id number] [place] [address]- 9561 September, [facility] [address] [id number] [place] [address]- 3968 Aug, [facility] [address] [id number] [place] [address]- 9516 Aug, [facility] [address] [id number] [place] [address]- 5678 Jul, [facility] [address] [id number] [place] [address]- 0318 21 Jul, 2012 [facility] [place] [facility] [address] [id number] [place] [address]- 3006 18 Jul, 2012 [facility] [place] [facility] [address] [id number] [place] [address]- 9221 15 Jul, 2012 [facility] [place] [facility] [address] [id number] [place] [address]- 6017 13 Jul, 2012 [facility] [address] [id number] [place] [address]- 3489 08 Jul, 2012 [facility] [place] [facility] [address] [id number] [place] [address]- 8667 20 Jun, 2012 [facility] [place] [facility] [address] [id number] [place] [address]- 7723 13 Jun, 2012 [facility] [place] [facility] [address] [id number] [place] [address]- 6294 17 May, 2012 [facility] [address] [id number] [place] [address]- 0141 04 May, 2012 [facility] [address] [id number] [place] [address]- 1535 18 Apr, 2012 [facility] [place] [facility] [address] [id number] [place] [address]- 6444 18 Apr, 2012 [facility] [place] [facility] [address] [id number] [place] [address]- 5293 13 Apr, 2012 [facility] [place] [facility] [address] [id number] [place] [address]- 6183 13 Apr, 2012 [facility] [place] [facility] [address] [id number] [place] [address]- 9498 10 Apr, 2012 [facility] [place] [facility] [address] [id number] [place] [address]- 1528 10 Apr, 2012 [facility] [place] [facility] [address] [id number] [place] [address] 07 Apr, 2012 [facility] [place] [facility] [address] [id number] [place] [address]- 1878 Apr, [facility] [place] [facility] [address] [id number] [place] [address] Apr, [facility] [place] [facility] [address] [id number] [place] [address]- 2196 Apr, [facility] [place] [facility] [address] [id number] [place] [address]- 5686 Apr, [facility] [place] [facility] [address] [id number] [place] [address]- 1112 Apr, [facility] [place] [facility] [address] [id number] [place] [address]- 5976 Apr, [facility] [place] [facility] [address] [id number] [place] [address]- 0510 Apr, [facility] [place] [facility] [address] [id number] [place] [address]- 6433 Apr, [facility] [place] [facility] [address] [id number] [place] [address]- 6188 Apr, [facility] [place] [facility] [address] [id number] [place] [address]- 0396 Mar, [facility] [place] [facility] [address] [id number] [place] [address]- 6224 Mar, [facility] [place] [facility] [address] [id number], [place] [address]- 2092 Mar, [facility] [place] [facility] [address] [id number] [place] [address]- 3899 Mar, [facility] [place] [facility] [address] [id number] [place] [address]- 2151 Mar, [facility] [place] [facility] [address] [id number], [place] [address]- 8084 Mar, [facility] [place] [facility] [address] [id number] [place] [address]- 2540 Mar, [facility] [place] [facility] [address] [id number] [place] [address]- 2323 Mar, [facility] [place] [facility] [address] [id number] [place] [address]- 1826 Mar, [facility] [place] [facility] [address] [id number] [place] [address]- 3564 Mar, [facility] [place] [facility] [address] [id number] [place] [address]- 2059 Feb, [facility] [place] [facility] [address] [id number] [place] [address]- 7202 Feb, [facility] [place] [facility] [address] [id number] [place] [address]- 5823 Feb, [facility] [place] [facility] [address] [id number] [place] [address]- 1999 Feb, [facility] [place] [facility] [address] [id number] [place] [address]- 4383 Feb, [facility] [place] [facility] [address] [id number] [place] [address]- 9203 Feb, [facility] [place] [facility] [address] [id number] [place] [address]- 4055 Jan, [facility] [place] [facility] [address] [id number] [place] [address]- 7117 Dec, [facility] [place] [facility] [address] [id number] [place] [address]- 5592 Dec, [facility] [place] [facility] [address] [id number] [place] [address]- 5814 Dec, [facility] [place] [facility] [address] [id number] [place] [address]- 3633 Dec, [facility] [place] [facility] [address] [id number] [place] [address]- 0156 Nov, [facility] [place] [facility] [address] [id number] [place] [address]- 6194 Nov, [facility] [place] [facility] [address] [id number] [place] [address]- 1226 Nov, [facility] [place] [facility] [address] [id number] [place] [address]- 2203 Nov, [facility] [place] [facility] [address] [id number] [place] [address]- 5440 Oct, [facility] [place] [facility] [address] [id number] [place] [address]- 0379 Oct, [facility] [place] [facility] [address] [id number] [place] [address]- 4349 Oct, [facility] [place] [facility] [address] [id number] [place] [address]- 3784 Oct, [facility] [place] [facility] [address] [id number] [place] [address]- 0346 Oct, [facility] [place] [facility] [address] [id number] [place] [address]- 6621 September, [facility] [place] [facility] [address] [id number] [place] [address]- 4193 September, [facility] [place] [facility] [address] [id number] [place] [address]- 0710 September, [facility] [place] [facility] [address] [id number] [place] [address]- 4935 September, [facility] [place] [facility] [address] [id number] [place] [address]- 9668 September, [facility] [place] [facility] [address] [id number] [place] [address]- 5651 September, [facility] [place] [facility] [address] [id number] [place] [address]- 2966 September, [facility] [place] [facility] [address] [id number] [place] [address]- 5917 September, [facility] [address] [id number] [place] [address]- 3502 Aug, [facility] [address] [id number] [place] [address]- 8315 Aug, [facility] [address] [id number] [place] [address]- 1294 Aug, [facility] [address] [id number] [place] [address]- 4390 Aug, [facility] [address] [id number] [place] [address]- 3800 18 Aug, 2011 [facility] [address] [id number] [place] [address]- 7567 17 Aug, 2011 [facility] [address] [id number] [place] [address]- 5299 Aug, [facility] [address] [id number] [place] [address]- 9917 Aug, [facility] [address] [id number] [place] [address]- 8989 Aug, [facility] [address] [id number] [place] [address]- 1910 Aug, [facility] [address] [id number] [place] [address]- 8734 Aug, [facility] [address] [id number] [place] [address]- 9600 Aug, [facility] [address] [id number] [place] [address]- 8553 29 Jul, 2011 [facility] [address] [id number] [place] [address]- 8424 Jul, [facility] [address] [id number] [place] [address]- 0637 Jul, [facility] [place] [facility] [address] [id number] [place] [address]- 1994 23 Jul, 2011 [facility] [place] [facility] [address] [id number] [place] [address]- 2936 Jul, [facility] [place] [facility] [address] [id number] [place] [address]- 5586 21 Jul, 2011 [facility] [place] [facility] [address] [id number] [place] [address]- 8216 14 Jul, 2011 [facility] [place] [facility] [address] [id number] [place] [address]- 8881 13 Jul, 2011 [facility] [place] [facility] [address] [id number] [place] [address]- 8196 07 Jul, 2011 [facility] [place] [facility] [address] [id number] [place] [address]- 8093 24 Jun, 2011 [facility] [place] [facility] [address] [id number] [place] [address]- 3027 Jun, [facility] [place] [facility] [address] [id number] [place] [address]- 2788 Jun, [facility] [place] [facility] [address] [id number] [place] [address]- 2902 14 Jun, 2011 [facility] [place] [facility] [address] [id number] [place] [address]- 0276 Jun, [facility] [place] [facility] [address] [id number] [place] [address]- 8826 Jun, [facility] [place] [facility] [address] [id number] [place] [address]- 3996 Jun, [facility] [place] [facility] [address] [id number] [place] [address]- 9066 May, [facility] [place] [facility] [address] [id number] [place] [address]- 1356 May, [facility] [place] [facility] [address] [id number] [place] [address]- 7183 May, [facility] [address] [id number] [place] [address]- 6802 May, [facility] [address] [id number] [place] [address]- 8166 May, [facility] [address] [id number] [place] [address]- 9596 May, [facility] [address] [id number] [place] [address]- 0884 May, [facility] [address] [id number] [place] [address]- 1271 Apr, [facility] [address] [id number] [place] [address]- 6249 Apr, [facility] [address] [id number] [place] [address]- 0679 Apr, [facility] [address] [id number] [place] [address]- 7002 Apr, [facility] [address] [id number] [place] [address]- 1907 Apr, [facility] [address] [id number] [place] [address]- 2100 Apr, [facility] [address] [id number] [place] [address]- 7846 Apr, [facility] [address] [id number] [place] [address]- 6638 Apr, [facility] [address] [id number] [place] [address]- 7903 05 Apr, 2011 [facility] [address] [id number] [place] [address]- 8397 Mar, [facility] [address] [id number] [place] [address]- 2197 Mar, [facility] [address] [id number] [place] [address]- 4835 Mar, [facility] [place] [facility] [address] [id number] [place] [address]- 9496 Mar, [facility] [place] [facility] [address] [id number] [place] [address] 2545 Mar, [facility] [place] [facility] [address] [id number] [place] [address]- 9566 Feb, [facility] [place] [facility] [address] [id number] [place] [address]- 2510 Feb, [facility] [place] [facility] [address] [id number] [place] [address]- 8807 Feb, [facility] [place] [facility] [address] [id number] [place] [address]- 6727 Dec, [facility] [place] [facility] [address] [id number] [place] [address]- 2779 Nov, [facility] [place] [facility] [address] [id number] [place] [address]- 4875 Apr, [facility] [place] [facility] [address] [id number] [place] 4627 Apr, [facility] [place] [facility] [address] [id number] [place] [address]- 5756 16 Apr, 2010 [facility] [place] [facility] [address] [id number], [place] [address]- 8794 13 Apr, 2010 [facility] [place] [facility] [address] [id number] [place] [address]- 4428 Apr, [facility] [place] [facility] [address] [id number] [place] [address]- 5263 Apr, [facility] [place] [facility] [address] [id number] [place] [address]- 5425 Apr, [facility] [place] [facility] [address] [id number], [place] [address]- 0988 Apr, [facility] [id number], [place] [address] 1813 Mar, [facility] [id number], [place] [address]- 4506 Mar, [facility] [id number], [place] [address]- 8792 Mar, [facility] [id number] [place] [address]- 6211 Mar, [facility] [id number] [place] [address] 48[address]- 2665 Mar, [facility] [id number] [place] [address]- 6550 Mar, [facility] [id number] [place] [address]- 2786 Mar, [facility] [id number], [place] [address]- 6278 Mar, [facility] [id number], [place] [address]- 1793 Mar, [facility] [id number], [place] [address]- 8541 Mar, IMMUNIZATIONS No Known Immunizations SOCIAL HISTORY Never Assessed REASON FOR VISIT Medication clarification PLAN OF CARE VITAL SIGNS MEDICATIONS Medication Instructions Dosage Frequency Start Date End Date Duration Status Acetaminophen 325 MG Orally every 6 hrs 2 tablets as needed 6h Nov, 14 days Active RESULTS No Results PROCEDURES No [...]
--- OUTSIDE RECORDS SUMMARY | 2018-04-22 23:07 | XMS REPORT ---
Author Author FABRICE DHALIWAL [facility] Address [address] [place] [address] Care Team Providers Care Assistant Offset Press Operator Name Role Phone FABRICE DHALIWAL Unavailable PROBLEMS Type Condition ICD9-CM Code YVR42-TK Code Onset Dates Condition Status SNOMED Code Problem Mixed hyperlipidemia E78.2 Active 881863231 Problem Severe sleep apnea G47.30 Active 87948608 Problem Iron deficiency anemia, unspecified iron deficiency anemia type D50.9 Active 76619898 Problem Decreased diffusion capacity R94.2 Active 03493074 Problem Stenosis of carotid artery, unspecified laterality I65.29 Active 46955395 Problem Coronary artery disease involving asa'cars[place] coronary artery of asa'carsarmiut heart, angina presence unspecified I25.10 Active 9121229869426 Problem Generalized osteoarthritis M15.9 Active 300464803 Problem Aortic valve sclerosis I35.8 Active 47690985 Problem Port catheter in place Z95.828 Active 878298460 Problem Essential hypertension I10 Active 79010658 Problem Transient cerebral ischemia, unspecified type G45.9 Active 981812269 Problem Renal osteodystrophy N25.0 Active 23441705 Problem Anxiety about health F41.8 Active 284860838 Problem Chronic kidney disease, unspecified CKD stage N18.9 Active 884169381 Problem Type 2 diabetes mellitus with unspecified complications E11.8 Active 20282910 Problem Other chronic pain G89.29 Active 45983343 Problem Chronic kidney disease (CKD), stage 4 (severe) N18.4 Active 262747070 Problem Type 2 diabetes mellitus with hyperglycemia E11.65 Active 79609873 Problem Type 2 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 Active 85589624 Problem 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 Active 1232948 Problem Pain R52 Active 77042467 Problem FDC 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.4 Active 675680591 Problem Slow transit constipation K59.01 Active 08325463 Problem Bladder spasms N32.89 Active 520319518 Problem Anemia in other chronic diseases classified elsewhere D63.8 Active 934621792 Problem Chronic kidney disease, stage 3 (moderate) N18.3 Active 298129096 Problem Type 2 diabetes mellitus with foot ulcer E11.621 Active 468219364 Problem Type 2 diabetes mellitus with diabetic polyneuropathy E11.42 Active 680414085 Problem Hypoxemia R09.02 Active 588421131 Problem BMI 50.0-59.9, adult Z68.43 Active 546741175 Problem Diarrhea, unspecified type R19.7 Active 14222623 Problem Trochanteric bursitis of left hip M70.62 Active [id number] ALLERGIES No Information ENCOUNTERS Encounter Location Date Diagnosis [facility] [address] [place], [place] [id number] Dec, Low back pain M54.5 ; Other chronic pain G89.29 and Chronic kidney disease (CKD), stage 4 (severe) N18.4 [facility] [id number] [place] [address] 26145- 7048 Dec, Type 2 diabetes mellitus with hyperglycemia E11.65 [facility] [id number] [place] [address] 08090- 5084 Dec, [facility] [address] [place] [id number] Dec, Type 2 diabetes mellitus with hyperglycemia E11.65 ; Essential hypertension I10 ; Generalized osteoarthritis M15.9 ; Mixed hyperlipidemia E78.2 ; Hypoxia R09.02 ; Port catheter in place Z95.828 ; Anemia due to acute blood loss D62 ; Chronic kidney disease, unspecified CKD stage N18.9 and Severe sleep apnea G47.30 [facility] [id number] [place] [address] 77817- 6381 Dec, Type 2 diabetes mellitus with hyperglycemia E11.65 [facility] [id number] [place] [address] 68388- 1941 Dec, [facility] [id number] [place] [address] 62337- 0538 Dec, Type 2 diabetes mellitus with hyperglycemia E11.65 [facility] [id number] [place] [address] 09396- 9531 Dec, Left leg pain M79.605 [facility] [id number] [place] [address] 68133- 8212 Nov, Slow transit constipation K59.01 [facility] [address] [address] 2546 Nov, [facility] [address] [place] [id number] Nov, Anemia due to acute blood loss D62 [facility] [id number] [place] [address] 27186 2546 Nov, [facility] [id number] [place] [address] 02505- 9356 Nov, Bladder spasms N32.89 [facility] [id number] [place] [address] 11209- 1886 Nov, Pain R52 [facility] [address] [place] [id number] Nov, Anemia due to acute blood loss D62 [facility] [id number] [place] [address] 65716- 9060 Nov, Pain in right hip M25.551 and Pain in left hip M25.552 [facility] [id number] [place] [address] 84088- 2066 Nov, [facility] [id number] [place] [address] 29742 2546 Nov, [facility] [id number] [place] [address] 30734 2546 Nov, [facility] [id number] [place] [address] 310707- 8356 Nov, [facility] [address] [address]- 3896 Oct, [facility] [id number] [place] [address] 78884- 0203 Oct, [facility] [address] [place] [id number] Oct, 2017 Encounter for examination for admission to alf Z02.2 ; Chronic kidney disease, unspecified CKD stage N18.9 ; Type 2 diabetes mellitus with unspecified complications E11.8 ; FDC 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.4 ; Essential hypertension I10 ; Hypoxia R09.02 ; Severe sleep apnea G47.30 ; Stenosis of carotid artery, unspecified laterality I65.29 ; Generalized osteoarthritis M15.9 ; Coronary artery disease involving asa'[place] coronary artery of asa'carsarmi[place] heart, angina presence unspecified I25.10 ; Port catheter in place Z95.828 and Hemorrhoids, unspecified hemorrhoid type K64.9 [facility] [address] 41089- 9883 Oct, [facility] [address] 57677- 6091 Oct, [facility] [address] 04067- 7094 Oct, [facility] [address] 51976- 8845 Oct, [facility] [id number] [place] [address] 99369 -8590 September, BMI 50.0-59.9, adult Z68.43 [facility] [address] 51460- 0181 September, [facility] [address] 51626- 1375 September, [facility] [id number] [place] [address] 88817- 9762 Aug, Type 2 diabetes mellitus with foot ulcer E11.621 ; Transient cerebral ischemia, unspecified type G45.9 ; Essential hypertension I10 ; Mixed hyperlipidemia E78.2 and BMI 50.0-59.9, adult Z68.43 [facility] [address] 06047- 6413 Aug, [facility] [id number] [place] [address] 81100- 9267 14 Jul, 2017 Anxiety about health F41.8 and Mixed hyperlipidemia E78.2 [facility] [id number] [place] [address] 26580- 4108 13 Jul, 2017 [facility] [address] 85800- 9793 Jun, [facility] [id number] [place] [address] 34755- 3287 Jun, Type 2 diabetes mellitus with hyperglycemia E11.65 ; Type 2 diabetes mellitus with foot ulcer E11.621 ; Port catheter in place Z95.828 ; 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 ; Contact with and (suspected) exposure to potentially hazardous body fluids Z77.21 and BMI 50.0-59.9, adult Z68.43 [facility] [id number] [place] [address] 91223- 7413 May, [facility] [address] 45300- 3595 May, Open wound of right great toe, subsequent encounter S91.101D [facility] [id number] [place] [address] 01220- 4393 May, [facility] [id number] [place] [address] 82969- 2663 Apr, [facility] [id number] [place] [address] 91484- 8672 Apr, [facility] [id number] [place] [address] 86587- 3693 Apr, [facility] [id number] [place] [address] 82740- 3705 Apr, Type 2 diabetes mellitus with diabetic polyneuropathy E11.42 [facility] [id number] [place] [address] 27387- 2027 Apr, Open wound of right great toe, subsequent encounter S91.101D [facility] [id number] [place] [address] 58044- 0493 Apr, Open wound of right great toe, subsequent encounter S91.101D ; Breast pain, left N64.4 ; Breast cancer screening Z12.31 ; Type 2 diabetes mellitus with foot ulcer E11.621 ; Essential hypertension I10 and BMI 50.0-59.9, adult Z68.43 [facility] [id number] [place] [address] 55986- 0971 Mar, Encounter for immunization Z23 [address] 53314- 8874 Mar, [facility] [id number] [place] [address] 13556- 3281 Mar, [address] [id number] [place] [address] 95652- 3564 Mar, Type 2 diabetes mellitus with diabetic polyneuropathy E11.42 ; Type 2 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 ; Type 2 diabetes mellitus with foot ulcer E11.621 ; Essential hypertension I10 ; Hypoxemia R09.02 and Generalized osteoarthritis M15.9 [address] [id number] [place] [address] 59187- 4156 02 Mar, 2017 Chronic kidney disease, stage 3 (moderate) N18.3 ; Acute cystitis without hematuria N30.00 ; Essential hypertension I10 ; Muscle spasms of neck M62.838 ; Type 2 diabetes mellitus with diabetic polyneuropathy E11.42 and BMI 50.0-59.9, adult Z68.43 [facility] [id number] [place] [address] 11786- 6139 Feb, [facility] [id number] [place] [address] 83967 -1151 Feb, [place] [id number] [place] [address] 05141- 8498 Feb, [facility] [address] [address]- 3870 Feb, [facility] [id number] [place] [address] 92445- 5896 Feb, [facility] [id number] [place] [address] 13517- 8128 Feb, [facility] [id number] [place] [address] 35807- 8885 Feb, Mixed hyperlipidemia E78.2 [facility] [id number] [place] [address] 40890- 1239 Feb, [facility] [id number] [place] [address] 64184- 1825 Jan, [facility] [id number] [place] [address] 23375- 7101 Jan, Generalized osteoarthritis M15.9 [facility] [id number] [place] [address] 86076- 2994 Oct, [facility] [id number] [place] [address] 34348- 5299 Jul, [facility] [address] [address]- 1918 Jul, [facility] [id number] [place] [address] 98806- 4292 Jul, Type 2 diabetes mellitus with hyperglycemia E11.65 ; Chronic kidney disease, stage 3 (moderate) N18.3 ; Type 2 diabetes mellitus with foot ulcer E11.621 ; Type 2 diabetes mellitus with diabetic polyneuropathy E11.42 ; Generalized osteoarthritis M15.9 ; Trochanteric bursitis of left hip M70.62 and Tinea pedis of both feet B35.3 [facility] [address], [place] [address]- 0936 Jun, [facility] [id number] [place] [address] 89447- 2178 Apr, [facility] [id number] [place] [address] 00410- 2608 Apr, [facility] [id number] [place] [address] 43996- 1279 Mar, [facility] [id number] [place] [address] 69694- 5092 Feb, Encounter for immunization Z23 [facility] [address] 94467- 2836 Feb, [facility] [address] 27479- 0172 Feb, Type 2 diabetes mellitus with hyperglycemia E11.65 ; Encounter for immunization Z23 ; Diarrhea, unspecified type R19.7 ; Essential hypertension I10 ; Mixed hyperlipidemia E78.2 ; Hypoxia R09.02 ; 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 and Type 2 diabetes mellitus with foot ulcer E11.621 [facility] [id number] [place] [address] 74433- 0900 Jan, [facility] [id number] [place] [address] 77769- 7588 Jan, Type 2 diabetes mellitus with hyperglycemia E11.65 and Pneumonia due to infectious organism, unspecified laterality, unspecified part of lung J18.9 [facility] [id number] [place] [address] 44294- 1110 Jan, [facility] [id number] [place] [address] 92825- 6125 Jan, [facility] [id number] [place] [address] 66029- 5198 Oct, Type 2 diabetes mellitus with hyperglycemia E11.65 ; Generalized osteoarthritis M15.9 and Chronic prescription opiate use Z79.891 [facility] [id number] [place] [address] 53214- 3295 September, [facility] [address], [place] [address]- 4041 Aug, [facility] [id number] [place] [address] 97090- 2558 Aug, [facility] [id number] [place] [address] 14772- 6981 Aug, [facility] [id number] [place] [address] 50428- 6888 Aug, [facility] [id number] [place] [address] 02350- 2749 Jun, [facility] [id number] [place] [address] 92077- 0237 Jun, Type 2 diabetes mellitus with hyperglycemia E11.65 ; Mixed hyperlipidemia E78.2 ; Vaginal itching L29.8 ; Neck muscle spasm M62.838 and Skin abrasion T14.8 [facility] [id number] [place] [address] 43740- 1279 Apr, [facility] [id number] [place] [address] 13107- 9221 Apr, [facility] [id number] [place] [address] 78064- 3655 Mar, [facility] [id number] [place] [address] 51581- 7922 Feb, [facility] [id number] [place] [address] 28939- 7964 Feb, Type 2 diabetes mellitus with hyperglycemia E11.65 ; Type 2 diabetes mellitus with foot ulcer E11.621 ; Type 2 diabetes mellitus with diabetic polyneuropathy E11.42 and Encounter for immunization Z23 [facility] [id number] [place] [address] 44385- 1445 Jan, Hypertension 401.9 ; Uncontrolled type 2 diabetes mellitus 250.02 ; Right shoulder pain 719.41 and Ulcer of heel and midfoot 707.14 [facility] [address], [place] [address]- 9724 Dec, Diabetes with other specified manifestations, type II or unspecified type, not stated as uncontrolled 250.80 ; Ulcer of heel and midfoot 707.14 ; Hypertension 401.9 ; Hip pain, left 719.45 and Acute anxiety 300.00 [facility] [id number] [address]- 9446 Nov, [facility] [id number] [place] [address] 80550- 0311 Nov, [facility] [id number] [place] [address] 39482- 3016 September, Anxiety attack 300.01 and Cellulitis 682.9 [facility] [id number] [address]- 4646 September, [facility] [id number] [place] [address] 41218- 2026 September, [facility] [address] [address]- 7466 September, [facility] [id number] [address]- 8989 Aug, [facility] [address] [address]- 3201 Aug, [facility] [address] [address]- 4586 Jul, [facility] [address] [address]- 6417 Jul, [facility] [id number] [address]- 6166 Jul, [facility] [address], [place] [address]- 6286 May, [facility] [id number] [place] [address] 13711- 8136 May, [facility] [place] [facility] [address] [id number] [place] [address]- 0807 Mar, [facility] [place] [facility] [address] [id number] [place] [address]- 0902 Mar, [facility] [place] [facility] [address] [id number] [place] [address]- 5064 Mar, [facility] [place] [facility] [address] [id number] [place] [address]- 6534 Mar, [facility] [place] [facility] [address] [id number] [place] [address]- 6522 Mar, [facility] [place] [facility] [address] [id number] [place] [address]- 6692 Mar, [facility] [place] [facility] [address] [id number] [place] [address]- 3777 Mar, [facility] [place] [facility] [address] [id number] [place] [address]- 6543 14 Feb, 2014 [facility] [place] [facility] [address] [id number] [place] [address]- 7765 14 Feb, 2014 [facility] [place] [facility] [address] [id number] [place] [address]- 4069 30 Jan, 2014 [facility] [place] [facility] [address] [id number] [address]- 9996 30 Jan, 2014 [facility] [place] [facility] [address] [id number] [address]- 3885 26 Jan, 2013 [facility] [place] [facility] [address] [id number] [place] [address]- 6459 26 Jan, 2014 [facility] [place] [facility] [address] [id number] [place] [address]- 0440 25 Jan, 2014 [facility] [place] [facility] [address] [id number] [place] [address]- 4177 25 Jan, 2014 [facility] [place] [facility] [address] [id number] [place] [address]- 1539 25 Sep, 2013 [facility] [place] [facility] [address] [id number] [place] [address] 2546 25 Sep, 2013 [facility] [place] [facility] [address] [id number] [place] [address] 2546 18 Sep, 2013 [facility] [place] [facility] [address] [id number] [place] [address] 2548 18 Sep, 2013 [facility] [place] [facility] [address] [id number] [place] [address] 2546 06 Sep, 2013 [facility] [place] [facility] [address] [id number] [place] [address]- 9109 06 Sep, 2013 [facility] [place] [facility] [address] [id number] [place] [address] 2544 05 Sep, 2013 [facility] [place] [facility] [address] [id number] [place] [address]- 3415 05 Sep, 2013 [facility] [place] [facility] [address] [id number] [place] [address] 2544 05 Sep, 2013 [facility] [place] [facility] [address] [id number] [place] [address] 2544 05 Sep, 2013 [facility] [place] [facility] [address] [id number] [place] [address]- 2545 05 Sep, 2013 [facility] [place] [facility] [address] [id number] [place] [address] 2542 05 Sep, 2013 [facility] [place] [facility] [address] [id number] [place] [address]- 2545 Dec, 2013 [facility] [place] [facility] [address] [id number] [place] [address]- 4890 Dec, 2013 [facility] [place] [facility] [address] [id number] [place] [address]- 0610 Dec, 2013 [facility] [place] [facility] [address] [id number] [place] [address]- 7239 08 Dec, 2013 [facility] [place] [facility] [address] [id number] [place] [address]- 2160 Dec, [facility] [place] [facility] [address] [id number] [place] [address]- 8188 Dec, [facility] [place] [facility] [address] [id number] [place] [address]- 9145 Dec, [facility] [place] [facility] [address] [id number] [place] [address]- 4790 Dec, [facility] [place] [facility] [address] [id number] [place] [address]- 4617 Dec, [facility] [place] [facility] [address] [id number] [place] [address]- 0146 Dec, [facility] [place] [facility] [address] [id number] [place] [address]- 9768 Nov, [facility] [place] [facility] [address] [id number] [place] [address]- 9520 Nov, [facility] [place] [facility] [address] [id number] [place] [address]- 7605 Nov, [facility] [place] [facility] [address] [id number] [place] [address]- 1687 Nov, [facility] [place] [facility] [address] [id number] [place] [address]- 3945 Nov, [facility] [place] [facility] [address] [id number] [place] [address]- 9850 Nov, [facility] [place] [facility] [address] [id number] [place] [address]- 8037 Oct, [facility] [place] [facility] [address] [id number] [place] [address]- 8488 Oct, [facility] [place] [facility] [address] [id number] [place] [address]- 0834 Oct, [facility] [place] [facility] [address] [id number] [place] [address]- 8815 Oct, [facility] [place] [facility] [address] [id number] [place] [address]- 8759 Oct, [facility] [place] [facility] [address] [id number] [place] [address]- 5471 Oct, [facility] [place] [facility] [address] [id number] [place] [address]- 7371 Oct, [facility] [place] [facility] [address] [id number] [place] [address]- 8486 Oct, [facility] [place] [facility] [address] [id number] [place] [address]- 4558 Oct, [facility] [place] [facility] [address] [id number] [place] [address]- 8179 Oct, [facility] [place] [facility] [address] [id number] [place] [address]- 6502 Oct, [facility] [place] [facility] [address] [id number] [place] [address]- 6993 Oct, [facility] [place] [facility] [address] [id number] [place] [address]- 9306 September, [facility] [place] [facility] [address] [id number] [place] [address]- 2390 September, [facility] [place] [facility] [address] [id number] [place] [address]- 0500 September, [facility] [place] [facility] [address] [id number] [place] [address] Aug, [facility] [place] [facility] [address] [id number] [place] [address] Aug, [facility] [place] [facility] [address] [id number] [place] [address] Jul, [facility] [place] [facility] [address] [id number] [place] [address] Jul, [facility] [place] [facility] [address] [id number] [place] [address] 10 Jul, 2013 [facility] [address] [id number] [place] [address] Jul, [facility] [place] [facility] [address] [id number] [place] [address] Jul, [facility] [place] [facility] [address] [id number] [place] [address] Jul, [facility] [place] [facility] [address] [id number] [place] [address] Jul, [facility] [place] [facility] [address] [id number] [place] [address] Jul, [facility] [place] [facility] [address] [id number] [place] [address] Jul, [facility] [place] [facility] [address] [id number] [place] [address] Jul, [facility] [place] [facility] [address] [id number] [place] [address] Jun, [facility] [place] [facility] [address] [id number] [place] [address] Jun, [facility] [place] [facility] [address] [id number] [place] [address] Jun, [facility] [place] [facility] [address] [id number] [place] [address] Jun, [facility] [place] [facility] [address] [id number] [place] [address] May, [facility] [place] [facility] [address] [id number] [place] [address] May, [facility] [place] [facility] [address] [id number] [place] [address] Apr, [facility] [place] [facility] [address] [id number] [place] [address] Apr, [facility] [place] [facility] [address] [id number] [place] [address] Apr, [facility] [place] [facility] [address] [id number] [place] [address] Apr, [facility] [place] [facility] [address] [id number] [place] Apr, [facility] [place] [facility] [address] [id number] [place] [address] Apr, [facility] [place] [facility] [address] [id number] [place] [address] Apr, [facility] [place] [facility] [address] [id number] [place] [address] Apr, [facility] [place] [facility] [address] [id number] [place] [address] Mar, [facility] [place] [facility] [address] [id number], [place] [address] Mar, [facility] [place] [facility] [address] [address] [id number] [place] [address] Mar, [facility] [place] [facility] [address] [id number], [place] [address] Mar, [facility] [place] [facility] [address] [id number], [place] [address] Mar, [facility] [place] [facility] [address] [id number], [place] [address] Mar, [facility] [place] [facility] [address] [id number] [place] [address] 9617 Feb, [facility] [place] [facility] [address] [id number], [place] [address] Feb, [facility] [place] [facility] [address] [id number], [place] [address] 6[address] Feb, [facility] [place] [facility] [address] [id number] [place] [address] 4900 18 Feb, 2013 [facility] [address] [id number] [place] [address]- 6362 14 Feb, 2013 [facility] [place] [facility] [address] [id number] [place] [address]- 6127 14 Feb, 2013 [facility] [place] [facility] [address] [id number] [place] [address]- 4972 04 Feb, 2013 [facility] [place] [facility] [address] [id number] [place] [address] 3246 27 Jan, 2013 [facility] [place] [facility] [address] [id number] [place] [address] 9849 26 Jan, 2013 [facility] [place] [facility] [address] [id number] [place] [address]- 6731 19 Jan, 2013 [facility] [place] [facility] [address] [id number] [place] [address]- 9905 05 Jan, 2013 [facility] [place] [facility] [address] [id number] [place] [address]- 4742 Dec, [facility] [place] [facility] [address] [id number] [place] [address]- 5358 Dec, [facility] [place] [facility] [address] [id number] [place] [address]- 6387 Dec, [facility] [place] [facility] [address] [id number] [place] [address]- 5688 Nov, [facility] [place] [facility] [address] [id number] [place] [address]- 1630 Nov, [facility] [place] [facility] [address] [id number] [place] [address]- 6675 16 Nov, 2012 [facility] [place] [facility] [address] [id number] [place] [address]- 7379 Nov, [facility] [place] [facility] [address] [id number] [place] [address]- 5969 Nov, [facility] [place] [facility] [address] [id number] [place] [address]- 2446 Nov, [facility] [address] [id number] [place] [address]- 9586 Oct, [facility] [place] [facility] [address] [id number] [place] [address]- 6085 Oct, [facility] [place] [facility] [address] [id number] [place] [address]- 9229 Oct, [facility] [address] [id number] [place] [address]- 4375 Oct, [facility] [place] [facility] [address] [id number] [place] [address]- 0198 Oct, [facility] [address] [id number] [place] [address]- 1786 Oct, [facility] [address] [id number] [place] [address]- 2282 September, [facility] [place] [facility] [address] [id number] [place] [address]- 8937 September, [facility] [place] [facility] [address] [id number] [place] [address]- 4808 September, [facility] [place] [facility] [address] [id number] [place] [address]- 4238 September, [facility] [place] [facility] [address] [id number] [place] [address]- 4938 Aug, [facility] [place] [facility] [address] [id number] [place] [address]- 5801 Aug, [facility] [place] [facility] [address] [id number] [place] [address]- 1715 Jul, [facility] [place] [facility] [address] [id number] [place] [address]- 4337 Jul, [facility] [place] [facility] [address] [id number] [place] [address]- 9266 18 Jul, 2012 [facility] [address] [id number] [place] [address]- 2659 15 Jul, 2012 [facility] [place] [facility] [address] [id number] [place] [address]- 8766 13 Jul, 2012 [facility] [address] [id number] [place] [address]- 6869 08 Jul, 2012 [facility] [place] [facility] [address] [id number] [place] [address]- 7171 20 Jun, 2012 [facility] [address] [id number] [place] [address]- 5676 Jun, [facility] [address] [id number] [place] [address]- 0646 17 May, 2012 [facility] [address] [id number] [place] [address]- 3456 May, [facility] [address] [id number] [place] [address]- 7036 18 Apr, 2012 [facility] [address] [id number] [place] [address]- 8325 18 Apr, 2012 [facility] [address] [id number] [place] [address]- 3393 Apr, [facility] [address] [id number] [place] [address]- 9794 13 Apr, 2012 [facility] [place] [facility] [address] [id number] [place] [address]- 4859 10 Apr, 2012 [facility] [place] [facility] [address] [id number] [place] [address]- 1569 10 Apr, 2012 [facility] [place] [facility] [address] [id number] [place] [address] 07 Apr, 2012 [facility] [place] [facility] [address] [id number] [place] [address] 07 Apr, 2012 [facility] [place] [facility] [address] [id number] [place] [address]- 1539 07 Apr, 2012 [facility] [place] [facility] [address] [id number] [place] [address]- 4726 Apr, [facility] [place] [facility] [address] [id number] [place] [address]- 4796 Apr, [facility] [place] [facility] [address] [id number] [place] [address]- 5414 Apr, [facility] [place] [facility] [address] [id number] [place] [address]- 2422 Apr, [facility] [place] [facility] [address] [id number] [place] [address]- 0010 Apr, [facility] [place] [facility] [address] [id number] [place] [address]- 7695 Apr, [facility] [place] [facility] [address] [id number] [place] [address]- 6349 Apr, [facility] [address] [id number] [place] [address]- 3640 Mar, [facility] [place] [facility] [address] [id number] [place] [address]- 2421 Mar, [facility] [place] [facility] [address] [id number] [place] [address]- 5091 Mar, [facility] [place] [facility] [address] [id number] [place] [address]- 8662 Mar, [facility] [place] [facility] [address] [id number] [place] [address]- 3996 Mar, [facility] [place] [facility] [address] [id number] [place] [address]- 7122 Mar, [facility] [place] [facility] [address] [id number] [place] [address]- 5761 Mar, [facility] [place] [facility] [address] [id number] [place] [address]- 9969 Mar, [facility] [place] [facility] [address] [id number] [place] [address]- 8737 Mar, [facility] [place] [facility] [address] [id number] [place] [address]- 3796 Mar, [facility] [place] [facility] [address] [id number] [place] [address]- 7237 Feb, [facility] [place] [facility] [address] [id number] [place] [address]- 6176 Feb, [facility] [place] [facility] [address] [id number] [place] [address]- 6987 Feb, [facility] [place] [facility] [address] [id number] [place] [address]- 5426 Feb, [facility] [place] [facility] [address] [id number] [place] [address]- 3161 Feb, [facility] [place] [facility] [address] [id number] [place] [address]- 0089 Feb, [facility] [place] [facility] [address] [id number] [place] [address]- 3361 Jan, [facility] [place] [facility] [address] [id number] [place] [address]- 5429 Dec, [facility] [place] [facility] [address] [id number] [place] [address]- 5700 Dec, [facility] [place] [facility] [address] [id number] [place] [address]- 9705 Dec, [facility] [place] [facility] [address] [id number] [place] [address]- 8967 Dec, [facility] [place] [facility] [address] [id number] [place] [address]- 0596 Nov, [facility] [place] [facility] [address] [id number] [place] [address]- 8767 Nov, [facility] [place] [facility] [address] [id number] [place] [address]- 3420 Nov, [facility] [address] [id number] [place] [address]- 2928 Nov, [facility] [place] [facility] [address] [id number] [place] [address]- 2562 Oct, [facility] [address] [id number] [place] [address]- 2936 Oct, [facility] [place] [facility] [address] [id number] [place] [address]- 1906 Oct, [facility] [address] [id number] [place] [address]- 8785 Oct, [facility] [address] [id number] [place] [address]- 2473 Oct, [facility] [address] [id number] [place] [address]- 7059 September, [facility] [address] [id number] [place] [address]- 5348 September, [facility] [address] [id number] [place] [address]- 4484 September, [facility] [address] [id number] [place] [address]- 4780 September, [facility] [address] [id number] [place] [address]- 9677 September, [facility] [place] [facility] [address] [id number] [place] [address]- 3723 September, [facility] [place] [facility] [address] [id number] [place] [address]- 8675 September, [facility] [place] [facility] [address] [id number] [place] [address]- 7866 September, [facility] [address] [id number] [place] [address]- 0793 Aug, [facility] [address] [id number] [place] [address]- 3268 25 Aug, 2011 [facility] [place] [facility] [address] [id number] [place] [address]- 5016 19 Aug, 2011 [facility] [place] [facility] [address] [id number] [place] [address]- 6586 19 Aug, 2011 [facility] [place] [facility] [address] [id number] [place] [address]- 8358 18 Aug, 2011 [facility] [place] [facility] [address] [id number] [place] [address]- 6175 17 Aug, 2011 [facility] [place] [facility] [address] [id number] [place] [address]- 0048 13 Aug, 2011 [facility] [place] [facility] [address] [id number] [place] [address]- 1687 12 Aug, 2011 [facility] [place] [facility] [address] [id number] [place] [address]- 3537 10 Aug, 2011 [facility] [place] [facility] [address] [id number] [place] [address]- 1626 09 Aug, 2011 [facility] [place] [facility] [address] [id number] [place] [address]- 1762 02 Aug, 2011 [facility] [place] [facility] [address] [id number] [place] [address]- 7810 02 Aug, 2011 [facility] [place] [facility] [address] [id number] [place] [address]- 9422 29 Jul, 2011 [facility] [place] [facility] [address] [id number] [place] [address]- 9948 28 Jul, 2011 [facility] [place] [facility] [address] [id number] [place] [address]- 1024 27 Jul, 2011 [facility] [place] [facility] [address] [id number] [place] [address]- 7517 23 Jul, 2011 [facility] [place] [facility] [address] [id number] [place] [address]- 4754 Jul, [facility] [address] [id number] [place] [address]- 1710 Jul, [facility] [place] [facility] [address] [id number] [place] [address]- 8036 14 Jul, 2011 [facility] [place] [facility] [address] [facility] [id number] [place] [address]- 4096 Jul, [facility] [place] [facility] [address] [id number] [place] [address]- 9896 Jul, [facility] [place] [facility] [address] [id number] [place] [address]- 3292 24 Jun, 2011 [facility] [place] [facility] [address] [id number] [place] [address]- 6926 Jun, [facility] [place] [facility] [address] [id number] [place] [address]- 9326 Jun, [facility] [place] [facility] [address] [id number] [place] [address]- 2437 14 Jun, 2011 [facility] [place] [facility] [address] [id number] [place] [address]- 9245 Jun, [facility] [place] [facility] [address] [facility] [id number] [place] [address]- 9664 Jun, [facility] [place] [facility] [address] [facility] [id number] [place] [address]- 9476 Jun, [facility] [place] [facility] [address] [id number] [place] [address]- 3524 May, [facility] [place] [facility] [address] [id number] [place] [address]- 5440 May, [facility] [place] [facility] [address] [facility] [id number] [place] [address]- 6509 May, [facility] [place] [facility] [address] [facility] [id number] [place] [address]- 7676 May, [facility] [place] [facility] [address] [id number] [place] [address]- 2546 May, [facility] [place] [facility] [address] [id number] [place] [address]- 5636 May, [facility] [place] [facility] [address] [id number] [place] [address]- 2546 May, [facility] [place] [facility] [address] [id number] [place] [address]- 6066 Apr, [facility] [place] [facility] [address] [id number] [place] [address]- 1789 Apr, [facility] [place] [facility] [address] [id number] [place] [address]- 4356 Apr, [facility] [place] [facility] [address] [id number] [place] [address]- 5438 Apr, [facility] [place] [facility] [address] [id number] [place] [address]- 0265 Apr, [facility] [place] [facility] [address] [id number] [place] [address]- 2150 Apr, [facility] [place] [facility] [address] [id number] [place] [address]- 5750 Apr, [facility] [place] [facility] [address] [id number] [place] [address]- 3026 Apr, [facility] [place] [facility] [address] [id number] [place] [address]- 1296 Apr, [facility] [place] [facility] [address] [id number] [place] [address]- 7634 Mar, [facility] [place] [facility] [address] [id number] [place] [address]- 0396 Mar, [facility] [place] [facility] [address] [id number] [place] [address]- 2546 Mar, [facility] [place] [facility] [address] [id number] [place] [address]- 9098 Mar, [facility] [place] [facility] [address] [id number] [place] [address]- 6357 Mar, [facility] [place] [facility] [address] [id number] [place] [address]- 9876 Feb, [facility] [place] [facility] [address] [id number] [place] [address]- 8016 Feb, [facility] [place] [facility] [address] [id number] [place] [address]- 5535 Feb, [facility] [place] [facility] [address] [id number] [place] [address]- 4985 Dec, [facility] [place] [facility] [address] [id number] [place] [address]- 9534 Nov, [facility] [place] [facility] [address] [id number] [place] [address]- 1196 Apr, [facility] [place] [facility] [address] [id number] [place] [address]- 3348 Apr, [facility] [place] [facility] [address] [id number] [place] [address]- 2158 16 Apr, 2010 [facility] [place] [facility] [address] [id number] [place] [address]- 9268 Apr, [facility] [place] [facility] [address] [id number], [place] [address]- 6323 Apr, [facility] [place] [facility] [address] [id number], [place] [address]- 0626 Apr, [facility] [place] [facility] [address] [id number] [place] [address]- 8953 Apr, [facility] [place] [facility] [address] [id number] [place] [address]- 8172 Apr, [facility] [place] [facility] [address] [id number] [place] [address]- 1589 Mar, [facility] [place] [facility] [address] [id number] [address]- 4010 Mar, [facility] [id number], [place] [address]- 5485 Mar, [facility] [id number], [place] [address]- 8381 Mar, [facility] [id number], [place] [address]- 0574 Mar, [facility] [id number], [place] [address]- 8850 Mar, [facility] [id number] [place] [address]- 2749 Mar, [facility] [id number], [place] [address]- 7687 Mar, [facility] [id number] [address]- 5135 Mar, [facility] [id number] [address]- 8585 Mar, IMMUNIZATIONS No Known Immunizations SOCIAL HISTORY [...]
--- OUTSIDE RECORDS SUMMARY | 2018-04-22 23:08 | XMS REPORT ---
Author Author BRUNO STRATTON Organization [facility] Address [address] [place] [address] Care Team Providers Care Guest Relations Representative Name Role Phone FOUZIAYANETHBRUNO Azul Unavailable PROBLEMS Type Condition ICD9-CM Code HZE33-TT Code Onset Dates Condition Status SNOMED Code Problem Mixed hyperlipidemia E78.2 Active 419984580 Problem Severe sleep apnea G47.30 Active 95952230 Problem Iron deficiency anemia, unspecified iron deficiency anemia type D50.9 Active 96793807 Problem Decreased diffusion capacity R94.2 Active 40272714 Problem Stenosis of carotid artery, unspecified laterality I65.29 Active 67117548 Problem Coronary artery disease involving [place] coronary artery of [place] heart, angina presence unspecified I25.10 Active [id number] Problem Generalized osteoarthritis M15.9 Active 718807118 Problem Aortic valve sclerosis I35.8 Active 28584492 Problem Port catheter in place Z95.828 Active 986545464 Problem Essential hypertension I10 Active 59566990 Problem Transient cerebral ischemia, unspecified type G45.9 Active 729308033 Problem Renal osteodystrophy N25.0 Active 60558893 Problem Anxiety about health F41.8 Active 376490261 Problem Chronic kidney disease, unspecified CKD stage N18.9 Active 392066048 Problem Type 2 diabetes mellitus with unspecified complications E11.8 Active 41134905 Problem Other chronic pain G89.29 Active 36058841 Problem Chronic kidney disease (CKD), stage 4 (severe) N18.4 Active 569271685 Problem Type 2 diabetes mellitus with hyperglycemia E11.65 Active 86520280 Problem Type 2 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 Active 33093508 Problem 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 Active 1620455 Problem Pain R52 Active 04909550 Problem retirement 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.4 Active 923507579 Problem Slow transit constipation K59.01 Active 50114094 Problem Bladder spasms N32.89 Active 523407881 Problem Anemia in other chronic diseases classified elsewhere D63.8 Active 820315521 Problem Chronic kidney disease, stage 3 (moderate) N18.3 Active 879844499 Problem Type 2 diabetes mellitus with foot ulcer E11.621 Active 287035777 Problem Type 2 diabetes mellitus with diabetic polyneuropathy E11.42 Active 030262339 Problem Hypoxemia R09.02 Active 419016259 Problem BMI 50.0-59.9, adult Z68.43 Active 069876313 Problem Diarrhea, unspecified type R19.7 Active 85355765 Problem Trochanteric bursitis of left hip M70.62 Active [id number] ALLERGIES No Information ENCOUNTERS Encounter Location Date Diagnosis [facility] [address] [place], [place] [id number] Dec, Low back pain M54.5 ; Other chronic pain G89.29 and Chronic kidney disease (CKD), stage 4 (severe) N18.4 [facility] [id number] [place] [address] 42051- 6082 Dec, Type 2 diabetes mellitus with hyperglycemia E11.65 [facility] [id number] [place] [address] 07846- 0263 Dec, [facility] [address] [place], [place] [id number] Dec, Type 2 diabetes mellitus with hyperglycemia E11.65 ; Essential hypertension I10 ; Generalized osteoarthritis M15.9 ; Mixed hyperlipidemia E78.2 ; Hypoxia R09.02 ; Port catheter in place Z95.828 ; Anemia due to acute blood loss D62 ; Chronic kidney disease, unspecified CKD stage N18.9 and Severe sleep apnea G47.30 [facility] [id number] [place] [address] 40150- 2903 Dec, Type 2 diabetes mellitus with hyperglycemia E11.65 [facility] [id number] [place] [address] 54464- 6933 Dec, [facility] [id number] [place] [address] 99478- 3992 Dec, Type 2 diabetes mellitus with hyperglycemia E11.65 [facility] [id number] [place] [address] 42781- 4191 Dec, Left leg pain M79.605 [facility] [id number] [place] [address] 79440- 6930 Nov, Slow transit constipation K59.01 [facility] [id number] [place] [address] 34294- 2004 Nov, [facility] [address] [place] [id number] Nov, Anemia due to acute blood loss D62 [facility] [id number] [place] [address] 90967- 3820 Nov, [facility] [id number] [place] [address] 89369- 5479 Nov, Bladder spasms N32.89 [facility] [id number] [place] [address] 35346- 9290 Nov, Pain R52 [facility] [address] [place] [id number] Nov, Anemia due to acute blood loss D62 [facility] [id number] [place] [address] 27385- 1533 Nov, Pain in right hip M25.551 and Pain in left hip M25.552 [facility] [id number] [place] [address] 61312- 1190 Nov, [facility] [id number] [place] [address] 03510- 6934 Nov, [facility] [id number] [place] [address] 21271- 8875 Nov, [facility] [id number] [place] [address] 69870- 6171 Nov, [facility] [id number] [place] [address] 49303- 8205 Oct, [facility] [id number] [place] [address] 26794- 4243 Oct, [facility] [address] [place] [id number] Oct, Encounter for examination for admission to halfway Z02.2 ; Chronic kidney disease, unspecified CKD stage N18.9 ; Type 2 diabetes mellitus with unspecified complications E11.8 ; retirement 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.4 ; Essential hypertension I10 ; Hypoxia R09.02 ; Severe sleep apnea G47.30 ; Stenosis of carotid artery, unspecified laterality I65.29 ; Generalized osteoarthritis M15.9 ; Coronary artery disease involving [place] coronary artery of [place] heart, angina presence unspecified I25.10 ; Port catheter in place Z95.828 and Hemorrhoids, unspecified hemorrhoid type K64.9 [facility] [address] 48886- 3543 Oct, [facility] [address] 12453- 8768 Oct, [facility] [id number] [place] [address] 14147- 0269 Oct, [facility] [id number] [place] [address] 26098- 9132 Oct, [facility] [id number] [place] [address] 62935 -7300 September, BMI 50.0-59.9, adult Z68.43 [facility] [id number] [place] [address] 48467- 1178 September, [facility] [id number] [place] [address] 84799- 3265 September, [facility] [address] 49571- 9382 Aug, Type 2 diabetes mellitus with foot ulcer E11.621 ; Transient cerebral ischemia, unspecified type G45.9 ; Essential hypertension I10 ; Mixed hyperlipidemia E78.2 and BMI 50.0-59.9, adult Z68.43 [facility] [address] [place] [address]- 0220 Aug, [facility] [id number] [place] [address] 87832- 9521 14 Jul, 2017 Anxiety about health F41.8 and Mixed hyperlipidemia E78.2 [facility] [id number] [place] [address] 31071- 5107 13 Jul, 2017 [facility] [address] 78482- 3828 Jun, [facility] [id number] [place] [address] 02564- 6399 Jun, Type 2 diabetes mellitus with hyperglycemia E11.65 ; Type 2 diabetes mellitus with foot ulcer E11.621 ; Port catheter in place Z95.828 ; 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 ; Contact with and (suspected) exposure to potentially hazardous body fluids Z77.21 and BMI 50.0-59.9, adult Z68.43 [facility] [id number] [place] [address] 72139- 3575 May, [facility] [id number] [place] [address] 02052- 1756 May, Open wound of right great toe, subsequent encounter S91.101D [facility] [id number] [place] [address] 63093- 1939 May, [facility] [id number] [place] [address] 04716- 7621 Apr, [facility] [id number] [place] [address] 60922- 9704 Apr, [facility] [id number] [place] [address] 32771- 7963 Apr, [facility] [id number] [place] [address] 31514- 1855 Apr, Type 2 diabetes mellitus with diabetic polyneuropathy E11.42 [facility] [id number] [place] [address] 30021- 0797 Apr, Open wound of right great toe, subsequent encounter S91.101D [facility] [address] 28239- 1441 08 Apr, 2017 Open wound of right great toe, subsequent encounter S91.101D ; Breast pain, left N64.4 ; Breast cancer screening Z12.31 ; Type 2 diabetes mellitus with foot ulcer E11.621 ; Essential hypertension I10 and BMI 50.0-59.9, adult Z68.43 [facility] [id number] [place] [address] 93561- 8421 Mar, Encounter for immunization Z23 [address] 49201- 8648 Mar, [facility] [id number] [place] [address] 60280- 6090 Mar, [facility] [id number] [place] [address] 83320- 6838 Mar, Type 2 diabetes mellitus with diabetic polyneuropathy E11.42 ; Type 2 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 ; Type 2 diabetes mellitus with foot ulcer E11.621 ; Essential hypertension I10 ; Hypoxemia R09.02 and Generalized osteoarthritis M15.9 [facility] [id number] [place] [address] 86495- 8131 Mar, Chronic kidney disease, stage 3 (moderate) N18.3 ; Acute cystitis without hematuria N30.00 ; Essential hypertension I10 ; Muscle spasms of neck M62.838 ; Type 2 diabetes mellitus with diabetic polyneuropathy E11.42 and BMI 50.0-59.9, adult Z68.43 [facility] [id number] [place] [address] 87103- 4278 Feb, [facility] [id number] [place] [address] 98857 -2900 Feb, [facility] [address] 52063- 0003 Feb, [facility] [address] [address] 1108 Feb, [facility] [address] [place] [address] 009007- 4671 Feb, [facility] [address] [place] [address] 65517- 5951 Feb, [facility] [id number] [place] [address] 20811- 0550 Feb, Mixed hyperlipidemia E78.2 [facility] [id number] [place] [address] 91144- 3342 Feb, [facility] [address] [place] [address] 04342- 0415 Jan, [facility] [id number] [place] [address] 00239- 1224 Jan, Generalized osteoarthritis M15.9 [facility] [address] [place] [address] 12287- 7406 Oct, [facility] [id number] [place] [address] 58470- 2264 Jul, [facility] [address] [address]- 0330 Jul, [facility] [address] [address]- 0911 Jul, Type 2 diabetes mellitus with hyperglycemia E11.65 ; Chronic kidney disease, stage 3 (moderate) N18.3 ; Type 2 diabetes mellitus with foot ulcer E11.621 ; Type 2 diabetes mellitus with diabetic polyneuropathy E11.42 ; Generalized osteoarthritis M15.9 ; Trochanteric bursitis of left hip M70.62 and Tinea pedis of both feet B35.3 [facility] [address] [address]- 7455 Jun, [facility] [id number] [place] [address] 93215- 0965 Apr, [facility] [id number] [place] [address] 62874- 8258 Apr, [facility] [id number] [place] [address] 94703- 0565 Mar, [facility] [address] 74187- 0824 Feb, Encounter for immunization Z23 [facility] [id number] [place] [address] 90749- 3188 Feb, [facility] [address] 31589- 6394 14 Feb, 2016 Type 2 diabetes mellitus with hyperglycemia E11.65 ; Encounter for immunization Z23 ; Diarrhea, unspecified type R19.7 ; Essential hypertension I10 ; Mixed hyperlipidemia E78.2 ; Hypoxia R09.02 ; 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 and Type 2 diabetes mellitus with foot ulcer E11.621 [facility] [id number] [place] [address] 25836- 2022 Jan, [facility] [id number] [place] [address] 78568- 2351 Jan, Type 2 diabetes mellitus with hyperglycemia E11.65 and Pneumonia due to infectious organism, unspecified laterality, unspecified part of lung J18.9 [facility] [address] [place] [address] 03168- 6694 Jan, [facility] [id number] [place] [address] 31666- 5932 Jan, [facility] [id number] [place] [address] 84540- 2348 Oct, Type 2 diabetes mellitus with hyperglycemia E11.65 ; Generalized osteoarthritis M15.9 and Chronic prescription opiate use Z79.891 [facility] [id number] [place] [address] 21650- 8623 September, [facility] [address] [address]- 2848 Aug, [facility] [id number] [place] [address] 15187- 7359 Aug, [facility] [id number] [place] [address] 57143- 8467 Aug, [facility] [id number] [place] [address] 62437- 6902 Aug, [facility] [id number] [place] [address] 71711- 6092 Jun, [facility] [id number] [place] [address] 15223- 2284 Jun, Type 2 diabetes mellitus with hyperglycemia E11.65 ; Mixed hyperlipidemia E78.2 ; Vaginal itching L29.8 ; Neck muscle spasm M62.838 and Skin abrasion T14.8 [facility] [id number] [place] [address] 01193- 5984 Apr, [facility] [id number] [place] [address] 12062- 3812 Apr, [facility] [id number] [place] [address] 36932- 6690 Mar, [facility] [id number] [place] [address] 86605- 3256 Feb, [facility] [address] [place] [address] 14131- 8688 Feb, Type 2 diabetes mellitus with hyperglycemia E11.65 ; Type 2 diabetes mellitus with foot ulcer E11.621 ; Type 2 diabetes mellitus with diabetic polyneuropathy E11.42 and Encounter for immunization Z23 [facility] [address] [address]- 0667 Jan, Hypertension 401.9 ; Uncontrolled type 2 diabetes mellitus 250.02 ; Right shoulder pain 719.41 and Ulcer of heel and midfoot 707.14 [facility] [address] [address]- 0788 Dec, Diabetes with other specified manifestations, type II or unspecified type, not stated as uncontrolled 250.80 ; Ulcer of heel and midfoot 707.14 ; Hypertension 401.9 ; Hip pain, left 719.45 and Acute anxiety 300.00 [facility] [id number] [place] [address] 03007- 7425 Nov, [facility] [id number] [place] [address] 03056- 8266 Nov, [facility] [id number] [place] [address] 69489- 0103 September, Anxiety attack 300.01 and Cellulitis 682.9 [facility] [id number] [place] [address] 88360- 1513 September, [facility] [id number] [place] [address] 36967- 0680 September, [facility] [id number] [place] [address] 74175- 4399 September, [facility] [id number] [place] [address] 50169- 1657 Aug, [facility] [address] [address]- 9874 Aug, [facility] [id number] [place] [address] 96047- 4641 Jul, [facility] [address] [address]- 3791 Jul, [facility] [id number] [place] [address] 679353- 6237 Jul, [facility] [address] [address]- 5671 May, [facility] [id number] [place] [address] 46292- 7404 May, [facility] [place] [facility] [address] [id number] [place] [address]- 7211 Mar, [facility] [place] [facility] [address] [id number] [address]- 6791 Mar, [facility] [place] [facility] [address] [facility] [id number] [place] [address]- 0643 Mar, [facility] [place] [facility] [address] [id number] [place] [address]- 7468 Mar, [facility] [place] [facility] [address] [id number] [place] [address]- 8851 Mar, [facility] [place] [facility] [address] [id number] [place] [address]- 9384 Mar, [facility] [place] [facility] [address] [facility] [id number] [address]- 1190 Mar, [facility] [place] [facility] [address] [id number] [place] [address]- 4969 Feb, [facility] [place] [facility] [address] [id number] [place] [address]- 6907 14 Feb, 2014 [facility] [place] [facility] [address] [facility] [id number] [address]- 3302 30 Jan, 2014 [facility] [place] [facility] [address] [id number] [address]- 6809 30 Jan, 2013 [facility] [place] [facility] [address] [id number] [address]- 8248 26 Jan, 2013 [facility] [place] [facility] [address] [id number] [address]- 0063 26 Jan, 2014 [facility] [place] [facility] [address] [facility] [id number] [address]- 6433 25 Jan, 2014 [facility] [place] [facility] [address] [id number] [address]- 6934 25 Jan, 2013 [facility] [place] [facility] [address] [id number] [place] [address]- 4944 25 Sep, 2013 [facility] [place] [facility] [address] [id number] [place] [address] 2546 25 Sep, 2013 [facility] [place] [facility] [address] [id number] [place] [address] 2546 18 Sep, 2013 [facility] [place] [facility] [address] [id number] [place] [address] 254 18 Sep, 2013 [facility] [place] [facility] [address] [id number] [place] [address] 254 06 Sep, 2013 [facility] [place] [facility] [address] [id number] [place] [address] 2545 06 Sep, 2013 [facility] [place] [facility] [address] [id number] [place] [address]- 9606 05 Sep, 2013 [facility] [place] [facility] [address] [id number] [place] [address]- 1468 05 Sep, 2013 [facility] [place] [facility] [address] [id number] [place] [address] 254 05 Sep, 2013 [facility] [place] [facility] [address] [id number] [place] [address] 2542 05 Sep, 2013 [facility] [place] [facility] [address] [id number] [place] [address] 2547 05 Sep, 2013 [facility] [place] [facility] [address] [id number] [place] [address]- 2549 05 Jan, 2013 [facility] [place] [facility] [address] [id number] [place] [address]- 2547 Dec, [facility] [place] [facility] [address] [id number] [place] [address]- 2549 Dec, [facility] [place] [facility] [address] [id number] [place] [address]- 4395 Dec, 2013 [facility] [place] [facility] [address] [id number] [place] [address]- 3143 Dec, [facility] [place] [facility] [address] [id number] [place] [address]- 8150 Dec, [facility] [place] [facility] [address] [id number] [place] [address]- 5283 Dec, [facility] [place] [facility] [address] [id number] [place] [address]- 1428 Dec, [facility] [place] [facility] [address] [id number] [place] [address]- 2652 Dec, [facility] [place] [facility] [address] [id number] [place] [address]- 3857 Dec, [facility] [place] [facility] [address] [id number] [place] [address]- 1917 Dec, [facility] [place] [facility] [address] [id number] [place] [address]- 5492 Nov, [facility] [place] [facility] [address] [id number] [place] [address]- 7701 Nov, [facility] [place] [facility] [address] [id number] [place] [address]- 3425 Nov, [facility] [place] [facility] [address] [id number] [place] [address]- 1843 Nov, [facility] [place] [facility] [address] [id number] [place] [address]- 2368 Nov, [facility] [place] [facility] [address] [id number] [place] [address]- 8856 Nov, [facility] [place] [facility] [address] [id number] [place] [address]- 9099 Oct, [facility] [place] [facility] [address] [id number] [place] [address]- 6788 Oct, [facility] [place] [facility] [address] [id number] [place] [address]- 7736 Oct, [facility] [place] [facility] [address] [id number] [place] [address]- 9835 Oct, [facility] [place] [facility] [address] [id number] [place] [address]- 6508 Oct, [facility] [place] [facility] [address] [id number] [place] [address]- 3887 Oct, [facility] [place] [facility] [address] [id number] [place] [address]- 8322 Oct, [facility] [place] [facility] [address] [id number] [place] [address]- 6314 Oct, [facility] [place] [facility] [address] [id number] [place] [address]- 9068 Oct, [facility] [place] [facility] [address] [id number] [place] [address] Oct, [facility] [place] [facility] [address] [id number] [place] [address] Oct, [facility] [place] [facility] [address] [id number] [place] [address] Oct, [facility] [place] [facility] [address] [id number] [place] [address] September, [facility] [place] [facility] [address] [id number] [place] [address] September, [facility] [place] [facility] [address] [id number] [place] [address] September, [facility] [place] [facility] [address] [id number] [place] [address] Aug, [facility] [place] [facility] [address] [id number] [place] [address] Aug, [facility] [place] [facility] [address] [id number] [place] [address] Jul, [facility] [place] [facility] [address] [id number] [place] [address] Jul, [facility] [place] [facility] [address] [id number] [place] [address] Jul, [facility] [place] [facility] [address] [id number] [place] [address] Jul, [facility] [place] [facility] [address] [id number] [place] [address] Jul, [facility] [place] [facility] [address] [id number] [place] [address] Jul, [facility] [place] [facility] [address] [id number] [place] [address] Jul, [facility] [place] [facility] [address] [id number] [place] [address] Jul, [facility] [place] [facility] [address] [id number] [place] [address] Jul, [facility] [place] [facility] [address] [id number] [place] [address] Jul, [facility] [place] [facility] [address] [id number] [place] [address] Jun, [facility] [place] [facility] [address] [id number] [place] [address] Jun, [facility] [place] [facility] [address] [id number] [place] [address] Jun, [facility] [place] [facility] [address] [id number] [place] [address] Jun, [facility] [place] [facility] [address] [id number] [place] [address] May, [facility] [place] [facility] [address] [id number] [place] [address] May, [facility] [place] [facility] [address] [id number] [place] [address] Apr, [facility] [place] [facility] [address] [id number] [address] Apr, [facility] [address] [id number] [place] [address] Apr, [facility] [place] [facility] [address] [facility] [id number] [place], [place] [address] Apr, [facility] [address] [facility] [id number] [place] [address] Apr, [facility] [place] [facility] [address] [facility] [id number] [place] [address] Apr, [facility] [address] [facility] [id number] [place] [address] Apr, [facility] [place] [facility] [address] [facility] [id number] [address] Apr, [facility] [id number] [address] Mar, [facility] [place] [facility] [address] [facility] [id number] [address] 6393 Mar, [facility] [place] [facility] [address] [id number] [address] 6691 Mar, [facility] [place] [facility] [address] [id number] [address] 9[address] Mar, [facility] [place] [facility] [address] [facility] [id number] [address] 2482 Mar, [facility] [place] [facility] [address] [facility] [id number] [address] Mar, [facility] [place] [facility] [address] [facility] [id number] [address] Feb, [facility] [place] [facility] [address] [facility] [id number] [address] 1137 Feb, [facility] [place] [facility] [address] [id number] [address] 9060 Feb, [facility] [place] [facility] [address] [id number] [place] [address] 3632 18 Feb, 2013 [facility] [place] [facility] [address] [id number] [place] [address]- 6483 14 Feb, 2013 [facility] [place] [facility] [address] [id number] [place] [address]- 7414 14 Feb, 2013 [facility] [place] [facility] [address] [id number] [place] [address]- 6526 04 Feb, 2013 [facility] [place] [facility] [address] [id number] [place] [address]- 2223 27 Jan, 2013 [facility] [place] [facility] [address] [id number] [place] [address]- 4181 26 Jan, 2013 [facility] [place] [facility] [address] [id number] [place] [address]- 5942 19 Jan, 2013 [facility] [place] [facility] [address] [id number] [place] [address]- 5765 05 Jan, 2013 [facility] [place] [facility] [address] [id number] [place] [address]- 0429 Dec, [facility] [place] [facility] [address] [id number] [place] [address]- 7604 Dec, [facility] [place] [facility] [address] [id number] [place] [address]- 5326 Dec, [facility] [place] [facility] [address] [id number] [place] [address]- 8301 Nov, [facility] [place] [facility] [address] [id number] [place] [address]- 9434 Nov, [facility] [place] [facility] [address] [id number] [place] [address]- 3395 Nov, [facility] [place] [facility] [address] [id number] [place] [address]- 2540 Nov, [facility] [place] [facility] [address] [id number] [place] [address]- 8576 Nov, [facility] [address] [id number] [place] [address]- 3871 Nov, [facility] [place] [facility] [address] [id number] [place] [address]- 7982 Oct, [facility] [place] [facility] [address] [id number] [place] [address]- 7291 Oct, [facility] [place] [facility] [address] [id number] [place] [address]- 6582 Oct, [facility] [address] [id number] [place] [address]- 8196 Oct, [facility] [place] [facility] [address] [id number] [place] [address]- 9214 Oct, [facility] [place] [facility] [address] [id number] [place] [address]- 2758 Oct, [facility] [place] [facility] [address] [id number] [place] [address]- 2256 September, [facility] [place] [facility] [address] [id number] [place] [address]- 2621 September, [facility] [place] [facility] [address] [id number] [place] [address]- 1383 September, [facility] [place] [facility] [address] [id number] [place] [address]- 4033 September, [facility] [place] [facility] [address] [id number] [place] [address]- 9590 Aug, [facility] [place] [facility] [address] [id number] [place] [address]- 8193 Aug, [facility] [place] [facility] [address] [id number] [place] [address]- 2503 Jul, [facility] [place] [facility] [address] [id number] [place] [address]- 7714 Jul, [facility] [place] [facility] [address] [id number] [place] [address]- 0067 18 Jul, 2012 [facility] [address] [id number] [place] [address]- 7186 15 Jul, 2012 [facility] [address] [id number] [place] [address]- 4196 13 Jul, 2012 [facility] [address] [id number] [place] [address]- 1446 08 Jul, 2012 [facility] [address] [id number] [place] [address]- 0866 20 Jun, 2012 [facility] [address] [id number] [place] [address]- 5986 13 Jun, 2012 [facility] [address] [id number] [place] [address]- 7496 17 May, 2012 [facility] [address] [id number] [place] [address]- 6775 04 May, 2012 [facility] [address] [id number] [place] [address]- 1549 18 Apr, 2012 [facility] [address] [id number] [place] [address]- 1296 18 Apr, 2012 [facility] [address] [id number] [place] [address]- 7274 13 Apr, 2012 [facility] [address] [id number] [place] [address]- 9696 13 Apr, 2012 [facility] [address] [id number] [place] [address]- 2546 10 Apr, 2012 [facility] [address] [id number] [place] [address]- 3736 10 Apr, 2012 [facility] [address] [id number] [place] [address]- 7806 07 Apr, 2012 [facility] [address] [id number] [place] [address]- 9783 Apr, [facility] [place] [facility] [address] [id number] [place] [address]143 Apr, [facility] [place] [facility] [address] [id number] [place] [address]- 1951 Apr, [facility] [place] [facility] [address] [id number] [place] [address]- 6185 Apr, [facility] [place] [facility] [address] [id number] [place] [address]- 1510 Apr, [facility] [place] [facility] [address] [id number] [place] [address]- 4863 Apr, [facility] [place] [facility] [address] [id number] [place] [address]- 5051 Apr, [facility] [place] [facility] [address] [id number] [place] [address]- 7565 Apr, [facility] [place] [facility] [address] [id number] [place] [address]- 3768 Apr, [facility] [place] [facility] [address] [id number] [place] [address]- 2831 Mar, [facility] [place] [facility] [address] [id number] [place] [address]- 5911 Mar, [facility] [place] [facility] [address] [id number] [place] [address]- 3483 Mar, [facility] [place] [facility] [address] [id number] [address]- 7044 Mar, [facility] [place] [facility] [address] [id number] [place] [address]- 3705 Mar, [facility] [place] [facility] [address] [id number] [place] [address]- 5035 Mar, [facility] [place] [facility] [address] [id number] [place] 0156 Mar, [facility] [place] [facility] [address] [id number] [address]- 7266 Mar, [facility] [place] [facility] [address] [id number] [place] [address]- 7397 Mar, [facility] [place] [facility] [address] [id number] [place] [address]- 2986 Mar, [facility] [place] [facility] [address] [id number] [place] [address]- 5176 Feb, [facility] [place] [facility] [address] [id number] [place] [address]- 5104 Feb, [facility] [place] [facility] [address] [id number] [place] [address]- 8667 Feb, [facility] [place] [facility] [address] [id number] [place] [address]- 2765 Feb, [facility] [place] [facility] [address] [id number] [place] [address]- 8636 Feb, [facility] [place] [facility] [address] [id number] [place] [address]- 8547 Feb, [facility] [place] [facility] [address] [id number] [place] [address]- 3752 Jan, [facility] [place] [facility] [address] [id number] [place] [address]- 6082 Dec, [facility] [place] [facility] [address] [id number] [place] [address]- 2555 Dec, [facility] [place] [facility] [address] [id number] [place] [address]- 6104 Dec, [facility] [place] [facility] [address] [id number] [place] [address]- 5438 Dec, [facility] [place] [facility] [address] [id number] [place] [address]- 6538 Nov, [facility] [place] [facility] [address] [id number] [place] [address]- 2404 Nov, [facility] [place] [facility] [address] [id number] [place] [address]- 2546 Nov, [facility] [address] [id number] [place] [address]- 9594 Nov, [facility] [place] [facility] [address] [id number] [place] [address]- 9486 Oct, [facility] [place] [facility] [address] [id number] [place] [address]- 4399 Oct, [facility] [place] [facility] [address] [id number] [place] [address]- 1240 Oct, [facility] [address] [id number] [place] [address]- 2806 Oct, [facility] [address] [id number] [place] [address]- 1446 Oct, [facility] [address] [id number] [place] [address]- 2374 September, [facility] [address] [id number] [place] [address]- 5358 September, [facility] [address] [id number] [place] [address]- 5915 September, [facility] [address] [id number] [place] [address]- 2747 September, [facility] [place] [facility] [address] [id number] [place] [address]- 7756 September, [facility] [place] [facility] [address] [id number] [place] [address]- 0446 September, [facility] [place] [facility] [address] [id number] [place] [address]- 2916 September, [facility] [place] [facility] [address] [id number] [place] [address]- 2546 September, [facility] [place] [facility] [address] [id number] [place] [address]- 4237 Aug, [facility] [address] [id number] [place] [address]- 2408 25 Aug, 2011 [facility] [place] [facility] [address] [id number] [place] [address]- 5117 Aug, [facility] [place] [facility] [address] [id number] [place] [address]- 2469 Aug, [facility] [place] [facility] [address] [id number] [place] [address]- 8980 18 Aug, 2011 [facility] [place] [facility] [address] [id number] [place] [address]- 8501 17 Aug, 2011 [facility] [place] [facility] [address] [id number] [place] [address]- 3765 13 Aug, 2011 [facility] [place] [facility] [address] [id number] [place] [address]- 6513 Aug, [facility] [place] [facility] [address] [id number] [place] [address]- 2681 10 Aug, 2011 [facility] [place] [facility] [address] [id number] [place] [address]- 5755 09 Aug, 2011 [facility] [place] [facility] [address] [id number] [place] [address]- 5067 Aug, [facility] [place] [facility] [address] [id number] [place] [address]- 2973 Aug, [facility] [place] [facility] [address] [id number] [address]- 8219 29 Jul, 2011 [facility] [place] [facility] [address] [id number] [place] [address]- 9732 28 Jul, 2011 [facility] [place] [facility] [address] [id number] [place] [address]- 1407 27 Jul, 2011 [facility] [place] [facility] [address] [id number] [place] [address]- 0442 23 Jul, 2011 [facility] [place] [facility] [address] [id number] [place] [address]- 7733 Jul, [facility] [address] [id number] [place] [address]- 2086 21 Jul, 2011 [facility] [place] [facility] [address] [id number] [place] [address]- 2802 14 Jul, 2011 [facility] [place] [facility] [address] [id number] [place] [address]- 3116 13 Jul, 2011 [facility] [place] [facility] [address] [id number] [place] [address]- 0957 07 Jul, 2011 [facility] [place] [facility] [address] [id number] [place] [address]- 2300 24 Jun, 2011 [facility] [place] [facility] [address] [id number] [place] [address]- 3035 23 Jun, 2011 [facility] [place] [facility] [address] [id number] [place] [address]- 4768 23 Jun, 2011 [facility] [place] [facility] [address] [id number] [place] [address]- 2593 14 Jun, 2011 [facility] [place] [facility] [address] [id number] [place] [address]- 3577 Jun, [facility] [place] [facility] [address] [id number] [place] [address]- 6895 Jun, [facility] [place] [facility] [address] [id number] [place] [address]- 7549 Jun, [facility] [place] [facility] [address] [id number] [place] [address]- 6315 May, [facility] [place] [facility] [address] [id number] [place] [address]- 0342 May, [facility] [place] [facility] [address] [id number] [place] [address]- 2876 May, [facility] [place] [facility] [address] [id number] [place] [address]- 0304 May, [facility] [address] [id number] [place] [address]- 2889 May, [facility] [place] [facility] [address] [id number] [place] [address]- 2116 May, [facility] [place] [facility] [address] [id number] [place] [address]- 8686 May, [facility] [place] [facility] [address] [id number] [place] [address]- 9913 Apr, [facility] [place] [facility] [address] [id number] [place] [address]- 3550 Apr, [facility] [place] [facility] [address] [id number] [place] [address]- 5973 Apr, [facility] [place] [facility] [address] [id number] [place] [address]- 6365 Apr, [facility] [place] [facility] [address] [id number] [place] [address]- 8978 Apr, [facility] [place] [facility] [address] [id number] [place] [address]- 7594 Apr, [facility] [place] [facility] [address] [id number] [place] [address]- 7079 Apr, [facility] [place] [facility] [address] [id number] [place] [address]- 3455 Apr, [facility] [place] [facility] [address] [id number] [place] [address]- 0216 Apr, [facility] [place] [facility] [address] [id number] [place] [address]- 1977 Mar, [facility] [place] [facility] [address] [id number] [place] [address]- 3346 Mar, [facility] [place] [facility] [address] [id number] [place] [address]- 2796 Mar, [facility] [place] [facility] [address] [id number] [place] [address]- 8511 17 Mar, 2011 [facility] [address] [id number] [place] [address]- 3673 Mar, [facility] [place] [facility] [address] [id number] [place] [address]- 8486 Feb, [facility] [place] [facility] [address] [id number] [place] [address]- 6896 Feb, [facility] [place] [facility] [address] [id number] [place] [address]- 5269 Feb, [facility] [address] [id number] [place] [address]- 8666 Dec, [facility] [place] [facility] [address] [id number] [place] [address]- 0021 Nov, [facility] [address] [id number] [place] [address]- 4981 Apr, [facility] [place] [facility] [address] [id number] [place] [address]- 4604 Apr, [facility] [place] [facility] [address] [id number] [place] [address]- 7276 16 Apr, 2010 [facility] [place] [facility] [address] [id number] [place] [address]- 2647 Apr, [facility] [place] [facility] [address] [id number] [place] [address]- 6200 Apr, [facility] [place] [facility] [address] [id number] [place] [address]- 2549 Apr, [facility] [place] [facility] [address] [id number] [place] [address]- 8129 Apr, [facility] [place] [facility] [address] [id number] [place] [address]- 9176 Apr, [facility] [place] [facility] [address] [id number] [place] [address]- 1889 Mar, [facility] [place] [facility] [address] [id number] [address]- 1836 Mar, [facility] [id number] [address]- 0716 Mar, [facility] [address] [facility] [id number] [address]- 7708 Mar, [facility] [id number] [address]- 5143 Mar, [facility] [address] [facility] [id number] [address]- 7324 Mar, [facility] [id number] [address]- 8369 Mar, [facility] [id number] [address]- 7766 Mar, [facility] [id number] [address]- 5170 Mar, [facility] [id number] [address]- 3906 Mar, IMMUNIZATIONS No Known Immunizations SOCIAL HISTORY Never Assessed REASON FOR VISIT Med Rec PLAN OF CARE VITAL SIGNS MEDICATIONS Medication Instructions Dosage Frequency Start Date End Date Duration Status Simbrinza 1-0.2 % Ophthalmic Three times a day 1 drop into affected eye 8h Active HydrALAZINE HCl 25 MG Orally Three times a day 1 tablet with food 8h Active Aspirin 81 MG Orally Once a day 1 tablet 24h Active Arginine 2000 MG Orally TID 2,000 mg 8h Active Levemir FlexTouch 100 UNIT/ML Subcutaneous BID 20 units 12h Active Alavert 10 MG Orally Once a day 1 tablet on the tongue and allow to dissolve 24h Active Fish Oil 1000 MG Orally 3 times a day 1 capsule 8h Active NovoLog Flexpen 100 UNIT/ML Subcutaneous 3 times a day before meals 9 units Active Clonidine HCl 0.3 MG Orally Twice a day 1 tablet 12h Active Gabapentin 100 MG Orally Three times a day 1 capsule 8h Active Rosuvastatin Calcium 20 MG Orally Once a day 1 tablet 24h Active Torsemide 20 mg Orally 2 times a day 1 tablet 12h Active Acetaminophen ER 650 MG Orally every 8 hrs 2 tablets as needed 8h Active Vitamin D3 5000 UNIT Orally Once a day at hs 1 capsule Active Magnesium Oxide 250 MG Orally Once a day 1 tablet as needed 24h Active Venofer 200 mg Intravenous for 7 days 200 mg IV q48 hours Nov, Nov, Active Multivitamins - Orally Once a day 1 capsule 24h Active RESULTS No Results PROCEDURES No Known [...]
--- OUTSIDE RECORDS SUMMARY | 2018-04-22 23:09 | XMS REPORT ---
Author Author FABRICE DHALIWAL [facility] Address [address] [place] [address] Care Team Providers Care Gleason Gear Generator Name Role Phone FABRICE DHALIWAL Unavailable PROBLEMS Type Condition ICD9-CM Code QOO16-BJ Code Onset Dates Condition Status SNOMED Code Problem Mixed hyperlipidemia E78.2 Active 300156769 Problem Severe sleep apnea G47.30 Active 59542270 Problem Iron deficiency anemia, unspecified iron deficiency anemia type D50.9 Active 80137079 Problem Decreased diffusion capacity R94.2 Active 75803587 Problem Stenosis of carotid artery, unspecified laterality I65.29 Active 48088010 Problem Coronary artery disease involving chinik coronary artery of chinik heart, angina presence unspecified I25.10 Active 2123779687157 Problem Generalized osteoarthritis M15.9 Active 209568052 Problem Aortic valve sclerosis I35.8 Active 98344403 Problem Port catheter in place Z95.828 Active 264930034 Problem Essential hypertension I10 Active 77244137 Problem Transient cerebral ischemia, unspecified type G45.9 Active 334732033 Problem Renal osteodystrophy N25.0 Active 54919679 Problem Anxiety about health F41.8 Active 335129009 Problem Chronic kidney disease, unspecified CKD stage N18.9 Active 000598581 Problem Type 2 diabetes mellitus with unspecified complications E11.8 Active 73402906 Problem Other chronic pain G89.29 Active 62116163 Problem Chronic kidney disease (CKD), stage 4 (severe) N18.4 Active 364398979 Problem Type 2 diabetes mellitus with hyperglycemia E11.65 Active 12325647 Problem Type 2 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 Active 24391628 Problem 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 Active 5399973 Problem Pain R52 Active 03082962 Problem penitentiary 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.4 Active 549190662 Problem Slow transit constipation K59.01 Active 29949051 Problem Bladder spasms N32.89 Active 623243270 Problem Anemia in other chronic diseases classified elsewhere D63.8 Active 256144706 Problem Chronic kidney disease, stage 3 (moderate) N18.3 Active 268416552 Problem Type 2 diabetes mellitus with foot ulcer E11.621 Active 412230886 Problem Type 2 diabetes mellitus with diabetic polyneuropathy E11.42 Active 147171210 Problem Hypoxemia R09.02 Active 179840204 Problem BMI 50.0-59.9, adult Z68.43 Active 064415207 Problem Diarrhea, unspecified type R19.7 Active 85533453 Problem Trochanteric bursitis of left hip M70.62 Active [id number] ALLERGIES No Information ENCOUNTERS Encounter Location Date Diagnosis [facility] [address] [place] [place], [place] [id number] Dec, Low back pain M54.5 ; Other chronic pain G89.29 and Chronic kidney disease (CKD), stage 4 (severe) N18.4 [facility] [id number] [place] [address] 76193- 6524 Dec, Type 2 diabetes mellitus with hyperglycemia E11.65 [facility] [id number] [place] [address] 95347- 9517 Dec, [facility] [address] [place] [place], [place] [id number] Dec, Type 2 diabetes mellitus with hyperglycemia E11.65 ; Essential hypertension I10 ; Generalized osteoarthritis M15.9 ; Mixed hyperlipidemia E78.2 ; Hypoxia R09.02 ; Port catheter in place Z95.828 ; Anemia due to acute blood loss D62 ; Chronic kidney disease, unspecified CKD stage N18.9 and Severe sleep apnea G47.30 [facility] [id number] [place] [address] 65849- 2528 Dec, Type 2 diabetes mellitus with hyperglycemia E11.65 [facility] [id number] [place] [address] 01497- 9050 Dec, [facility] [id number] [place] [address] 70871- 4056 Dec, Type 2 diabetes mellitus with hyperglycemia E11.65 [facility] [id number] [place] [address] 34321- 5756 Dec, Left leg pain M79.605 [facility] [id number] [place] [address] 47674- 4774 Nov, Slow transit constipation K59.01 [facility] [address], [place] [address] 2546 Nov, [facility] [address] [place] [id number] Nov, Anemia due to acute blood loss D62 [facility] [id number] [place] [address] 33778 2546 Nov, [facility] [id number] [place] [address] 05254- 2686 Nov, Bladder spasms N32.89 [facility] [id number] [place] [address] 72532- 5656 Nov, Pain R52 [facility] [address] [place] [id number] Nov, Anemia due to acute blood loss D62 [facility] [id number] [place] [address] 68264- 4995 Nov, Pain in right hip M25.551 and Pain in left hip M25.552 [facility] [id number] [place] [address] 49441- 5336 Nov, [facility] [id number] [place] [address] 61434 2546 Nov, [facility] [id number] [place] [address] 38695 2546 Nov, [facility] [id number] [place] [address] 173025- 1936 Nov, [facility] [address], [place] [address] 0936 Oct, [facility] [id number] [place] [address] 57050- 0051 Oct, [facility] [address] [place] [id number] Oct, 2017 Encounter [facility] Z02.2 ; Chronic kidney disease, unspecified CKD stage N18.9 ; Type 2 diabetes mellitus with unspecified complications E11.8 ; penitentiary 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.4 ; Essential hypertension I10 ; Hypoxia R09.02 ; Severe sleep apnea G47.30 ; Stenosis of carotid artery, unspecified laterality I65.29 ; Generalized osteoarthritis M15.9 ; Coronary artery disease involving chinik coronary artery of chinik heart, angina presence unspecified I25.10 ; Port catheter in place Z95.828 and Hemorrhoids, unspecified hemorrhoid type K64.9 [facility] [address] 92768- 5983 Oct, [facility] [address] 82444- 8307 Oct, [facility] [address] 18197- 3638 Oct, [facility] [address] 46544- 0651 Oct, [facility] [id number] [place] [address] 11776 -0225 September, BMI 50.0-59.9, adult Z68.43 [facility] [address] 57253- 3074 September, [facility] [address] 05854- 1862 September, [facility] [id number] [place] [address] 67960- 4794 Aug, Type 2 diabetes mellitus with foot ulcer E11.621 ; Transient cerebral ischemia, unspecified type G45.9 ; Essential hypertension I10 ; Mixed hyperlipidemia E78.2 and BMI 50.0-59.9, adult Z68.43 [facility] [address] 94723- 0886 Aug, [facility] [id number] [place] [address] 99062- 7005 14 Jul, 2017 Anxiety about health F41.8 and Mixed hyperlipidemia E78.2 [facility] [id number] [place] [address] 40119- 6501 13 Jul, 2017 [facility] [address] 32834- 0679 Jun, [facility] [id number] [place] [address] 39820- 5254 Jun, Type 2 diabetes mellitus with hyperglycemia E11.65 ; Type 2 diabetes mellitus with foot ulcer E11.621 ; Port catheter in place Z95.828 ; 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 ; Contact with and (suspected) exposure to potentially hazardous body fluids Z77.21 and BMI 50.0-59.9, adult Z68.43 [facility] [id number] [place] [address] 26373- 7109 May, [facility] [address] 61779- 6103 May, Open wound of right great toe, subsequent encounter S91.101D [facility] [id number] [place] [address] 06545- 2177 May, [facility] [id number] [place] [address] 59307- 7381 Apr, [facility] [id number] [place] [address] 74947- 2172 Apr, [facility] [id number] [place] [address] 68199- 6544 Apr, [facility] [id number] [place] [address] 89295- 5367 Apr, Type 2 diabetes mellitus with diabetic polyneuropathy E11.42 [facility] [id number] [place] [address] 50351- 0766 Apr, Open wound of right great toe, subsequent encounter S91.101D [facility] [id number] [place] [address] 56430- 6196 Apr, Open wound of right great toe, subsequent encounter S91.101D ; Breast pain, left N64.4 ; Breast cancer screening Z12.31 ; Type 2 diabetes mellitus with foot ulcer E11.621 ; Essential hypertension I10 and BMI 50.0-59.9, adult Z68.43 [facility] [id number] [place] [address] 07084- 7595 Mar, Encounter for immunization Z23 [address] 36614- 7906 Mar, [facility] [id number] [place] [address] 70414- 4871 Mar, [facility] [id number] [place] [address] 37319- 7542 Mar, Type 2 diabetes mellitus with diabetic polyneuropathy E11.42 ; Type 2 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 ; Type 2 diabetes mellitus with foot ulcer E11.621 ; Essential hypertension I10 ; Hypoxemia R09.02 and Generalized osteoarthritis M15.9 [facility] [id number] [place] [address] 42331- 3983 02 Mar, 2017 Chronic kidney disease, stage 3 (moderate) N18.3 ; Acute cystitis without hematuria N30.00 ; Essential hypertension I10 ; Muscle spasms of neck M62.838 ; Type 2 diabetes mellitus with diabetic polyneuropathy E11.42 and BMI 50.0-59.9, adult Z68.43 [facility] [id number] [place] [address] 81236- 6374 Feb, [facility] [id number] [place] [address] 95528 -0516 Feb, [facility] [id number] [place] [address] 27461- 0903 Feb, [facility] [address], [place] [address]- 3235 Feb, [facility] [id number] [place] [address] 31455- 6566 Feb, [facility] [id number] [place] [address] 45930- 5062 Feb, [facility] [id number] [place] [address] 00255- 0608 Feb, Mixed hyperlipidemia E78.2 [facility] [id number] [place] [address] 96499- 3693 Feb, [facility] [id number] [place] [address] 27544- 3635 Jan, [facility] [id number] [place] [address] 81287- 5999 Jan, Generalized osteoarthritis M15.9 [facility] [id number] [place] [address] 15939- 7677 Oct, [facility] [id number] [place] [address] 69971- 2403 Jul, [facility] [address], [place] [address]- 7230 Jul, [facility] [id number] [place] [address] 89023- 9381 Jul, Type 2 diabetes mellitus with hyperglycemia E11.65 ; Chronic kidney disease, stage 3 (moderate) N18.3 ; Type 2 diabetes mellitus with foot ulcer E11.621 ; Type 2 diabetes mellitus with diabetic polyneuropathy E11.42 ; Generalized osteoarthritis M15.9 ; Trochanteric bursitis of left hip M70.62 and Tinea pedis of both feet B35.3 [facility] [address], [place] [address]- 8559 Jun, [facility] [id number] [place] [address] 56936- 2462 Apr, [facility] [id number] [place] [address] 67433- 8550 Apr, [facility] [id number] [place] [address] 30560- 2713 Mar, [facility] [id number] [place] [address] 04191- 5934 Feb, Encounter for immunization Z23 [facility] [address] 28113- 6753 Feb, [facility] [address] 92785- 1482 Feb, Type 2 diabetes mellitus with hyperglycemia E11.65 ; Encounter for immunization Z23 ; Diarrhea, unspecified type R19.7 ; Essential hypertension I10 ; Mixed hyperlipidemia E78.2 ; Hypoxia R09.02 ; 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 and Type 2 diabetes mellitus with foot ulcer E11.621 [facility] [id number] [place] [address] 44380- 3230 Jan, [facility] [id number] [place] [address] 16927- 1961 Jan, Type 2 diabetes mellitus with hyperglycemia E11.65 and Pneumonia due to infectious organism, unspecified laterality, unspecified part of lung J18.9 [facility] [id number] [place] [address] 60022- 4922 Jan, [facility] [id number] [place] [address] 43389- 6155 Jan, [facility] [id number] [place] [address] 00791- 4963 Oct, Type 2 diabetes mellitus with hyperglycemia E11.65 ; Generalized osteoarthritis M15.9 and Chronic prescription opiate use Z79.891 [facility] [id number] [place] [address] 02428- 7286 September, [facility] [address] [address]- 7357 Aug, [facility] [id number] [place] [address] 51260- 3197 Aug, [facility] [id number] [place] [address] 56583- 7154 Aug, [facility] [id number] [place] [address] 82035- 8281 Aug, [facility] [id number] [place] [address] 92426- 6592 Jun, [facility] [id number] [place] [address] 76849- 9966 Jun, Type 2 diabetes mellitus with hyperglycemia E11.65 ; Mixed hyperlipidemia E78.2 ; Vaginal itching L29.8 ; Neck muscle spasm M62.838 and Skin abrasion T14.8 [facility] [id number] [place] [address] 12429- 8946 Apr, [facility] [id number] [place] [address] 91747- 7059 Apr, [facility] [id number] [place] [address] 12911- 3731 Mar, [facility] [id number] [place] [address] 03478- 5952 Feb, [facility] [id number] [place] [address] 97177- 6015 Feb, Type 2 diabetes mellitus with hyperglycemia E11.65 ; Type 2 diabetes mellitus with foot ulcer E11.621 ; Type 2 diabetes mellitus with diabetic polyneuropathy E11.42 and Encounter for immunization Z23 [facility] [address] [place] [address] 48431- 6451 Jan, Hypertension 401.9 ; Uncontrolled type 2 diabetes mellitus 250.02 ; Right shoulder pain 719.41 and Ulcer of heel and midfoot 707.14 [facility] [address], [place] [address]- 4981 Dec, Diabetes with other specified manifestations, type II or unspecified type, not stated as uncontrolled 250.80 ; Ulcer of heel and midfoot 707.14 ; Hypertension 401.9 ; Hip pain, left 719.45 and Acute anxiety 300.00 [facility] [address] [place] [address]- 9544 Nov, [facility] [id number] [place] [address] 84130- 7270 Nov, [facility] [id number] [place] [address] 15104- 2586 September, Anxiety attack 300.01 and Cellulitis 682.9 [facility] [address] [address]- 2106 September, [facility] [id number] [place] [address] 41352- 8526 September, [facility] [address], [place] [address]- 6776 September, [facility] [id number] [address]- 1358 Aug, [facility] [address] [address]- 5142 Aug, [facility] [address] [address]- 6186 Jul, [facility] [address], [place] [address]- 0179 Jul, [facility] [address] [place] [address]- 6566 Jul, [facility] [address], [place] [address]- 6396 May, [facility] [id number] [place] [address] 28615- 2633 May, [facility] [place] [facility] [address] [id number] [place] [address]- 2810 Mar, [facility] [place] [facility] [address] [id number] [place] [address]- 1336 Mar, [facility] [place] [facility] [address] [id number] [place] [address]- 5556 Mar, [facility] [place] [facility] [address] [id number] [place] [address]- 0971 Mar, [facility] [place] [facility] [address] [id number] [place] [address]- 3303 Mar, [facility] [place] [facility] [address] [id number] [place] [address]- 9824 Mar, [facility] [place] [facility] [address] [id number] [place] [address]- 6605 Mar, [facility] [place] [facility] [address] [id number] [place] [address]- 9944 14 Feb, 2014 [facility] [place] [facility] [address] [id number] [place] [address]- 5312 14 Feb, 2014 [facility] [place] [facility] [address] [id number] [place] [address]- 7584 30 Jan, 2014 [facility] [place] [facility] [address] [id number], [place] [address]- 0727 30 Jan, 2014 [facility] [place] [facility] [address] [id number], [place] [address]- 4811 26 Jan, 2013 [facility] [place] [facility] [address] [id number] [place] [address]- 0383 26 Jan, 2014 [facility] [place] [facility] [address] [id number] [place] [address]- 3763 25 Jan, 2014 [facility] [place] [facility] [address] [id number] [place] [address]- 3439 25 Jan, 2014 [facility] [place] [facility] [address] [id number] [place] [address]- 9571 25 Sep, 2013 [facility] [place] [facility] [address] [id number] [place] [address] 2546 25 Sep, 2013 [facility] [place] [facility] [address] [id number] [place] [address] 2546 18 Sep, 2013 [facility] [place] [facility] [address] [id number] [place] [address] 2540 18 Sep, 2013 [facility] [place] [facility] [address] [id number] [place] [address] 2546 06 Sep, 2013 [facility] [place] [facility] [address] [id number] [place] [address]- 0225 06 Sep, 2013 [facility] [place] [facility] [address] [id number] [place] [address] 2548 05 Sep, 2013 [facility] [place] [facility] [address] [id number] [place] [address]- 2699 05 Sep, 2013 [facility] [place] [facility] [address] [id number] [place] [address] 254 05 Sep, 2013 [facility] [place] [facility] [address] [id number] [place] [address] 2544 05 Sep, 2013 [facility] [place] [facility] [address] [id number] [place] [address]- 2548 05 Sep, 2013 [facility] [place] [facility] [address] [id number] [place] [address] 2544 05 Sep, 2013 [facility] [place] [facility] [address] [id number] [place] [address]- 2542 Dec, 2013 [facility] [place] [facility] [address] [id number] [place] [address]- 9724 Dec, 2013 [facility] [place] [facility] [address] [id number] [place] [address]- 3464 Dec, 2013 [facility] [place] [facility] [address] [id number] [place] [address]- 2794 08 Dec, 2013 [facility] [place] [facility] [address] [id number] [place] [address]- 2585 Dec, [facility] [place] [facility] [address] [id number] [place] [address]- 8504 Dec, [facility] [place] [facility] [address] [id number] [place] [address]- 2921 Dec, [facility] [place] [facility] [address] [id number] [place] [address]- 3470 Dec, [facility] [place] [facility] [address] [id number] [place] [address]- 5905 Dec, [facility] [place] [facility] [address] [id number] [place] [address]- 8876 Dec, [facility] [place] [facility] [address] [id number] [place] [address]- 6552 Nov, [facility] [place] [facility] [address] [id number] [place] [address]- 3826 Nov, [facility] [place] [facility] [address] [id number] [place] [address]- 8726 Nov, [facility] [place] [facility] [address] [id number] [place] [address]- 5715 Nov, [facility] [place] [facility] [address] [id number] [place] [address]- 8234 Nov, [facility] [place] [facility] [address] [id number] [place] [address]- 9797 Nov, [facility] [place] [facility] [address] [id number] [place] [address]- 9905 Oct, [facility] [place] [facility] [address] [id number] [place] [address]- 8164 Oct, [facility] [place] [facility] [address] [id number] [place] [address]- 3139 Oct, [facility] [place] [facility] [address] [id number] [place] [address]- 7386 Oct, [facility] [place] [facility] [address] [id number] [place] [address]- 0828 Oct, [facility] [place] [facility] [address] [id number] [place] [address]- 5860 Oct, [facility] [place] [facility] [address] [id number] [place] [address]- 4938 Oct, [facility] [place] [facility] [address] [id number] [place] [address]- 1882 Oct, [facility] [place] [facility] [address] [id number] [place] [address]- 8001 Oct, [facility] [place] [facility] [address] [id number] [place] [address] Oct, [facility] [place] [facility] [address] [id number] [place] [address] Oct, [facility] [place] [facility] [address] [id number] [place] [address] Oct, [facility] [place] [facility] [address] [id number] [place] [address] September, [facility] [place] [facility] [address] [id number] [place] [address] September, [facility] [place] [facility] [address] [id number] [place] [address] September, [facility] [place] [facility] [address] [id number] [place] [address] Aug, [facility] [place] [facility] [address] [id number] [place] [address] Aug, [facility] [place] [facility] [address] [id number] [place] [address] Jul, [facility] [place] [facility] [address] [id number] [place] [address] Jul, [facility] [place] [facility] [address] [id number] [place] [address] 10 Jul, 2013 [facility] [address] [id number] [place] [address] Jul, [facility] [place] [facility] [address] [id number] [place] [address] Jul, [facility] [place] [facility] [address] [id number] [place] [address] Jul, [facility] [place] [facility] [address] [id number] [place] [address] Jul, [facility] [place] [facility] [address] [id number] [place] [address] Jul, [facility] [place] [facility] [address] [id number] [place] [address] Jul, [facility] [place] [facility] [address] [id number] [place] [address] Jul, [facility] [place] [facility] [address] [id number] [place] [address]- 5059 Jun, [facility] [place] [facility] [address] [id number] [place] [address] 1873 Jun, [facility] [place] [facility] [address] [id number] [place] [address] 3929 Jun, [facility] [place] [facility] [address] [id number] [place] [address] 2492 Jun, [facility] [place] [facility] [address] [id number] [place] [address] 7183 May, [facility] [place] [facility] [address] [id number] [place] [address] 4351 May, [facility] [place] [facility] [address] [id number] [place] [address]- 7596 Apr, [facility] [place] [facility] [address] [id number] [place] [address]- 1135 Apr, [facility] [place] [facility] [address] [id number] [place] [address]- 9573 Apr, [facility] [place] [facility] [address] [id number] [place] [address]- 6566 Apr, [facility] [place] [facility] [address] [id number] [place] [address] Apr, [facility] [place] [facility] [address] [id number] [place] [address]- 7732 Apr, [facility] [place] [facility] [address] [id number] [place] [address] Apr, [facility] [place] [facility] [address] [id number] [place] [address]- 5004 Apr, [facility] [place] [facility] [address] [id number] [place] [address]- 3749 Mar, [facility] [place] [facility] [address] [id number], [place] [address] 56[address] Mar, [facility] [place] [facility] [address] [id number] [place] [address]- 3479 Mar, [facility] [place] [facility] [address] [id number], [place] [address] 76[address] Mar, [facility] [place] [facility] [address] [id number], [place] [address] 2699 Mar, [facility] [place] [facility] [address] [id number], [place] [address] 6[address] Mar, [facility] [place] [facility] [address] [id number] [place] [address]- 7637 Feb, [facility] [place] [facility] [address] [id number], [place] [address]- 6581 Feb, [facility] [place] [facility] [address] [id number], [place] [address] 92[address] Feb, [facility] [place] [facility] [address] [id number] [place] [address]- 3999 18 Feb, 2013 [facility] [address] [id number] [place] [address]- 8911 14 Feb, 2013 [facility] [place] [facility] [address] [id number] [place] [address]- 3635 14 Feb, 2013 [facility] [place] [facility] [address] [id number] [place] [address]- 5357 04 Feb, 2013 [facility] [place] [facility] [address] [id number] [place] [address]- 7922 27 Jan, 2013 [facility] [place] [facility] [address] [id number] [place] [address]- 9259 26 Jan, 2013 [facility] [place] [facility] [address] [id number] [place] [address]- 7758 19 Jan, 2013 [facility] [place] [facility] [address] [id number] [place] [address]- 9291 05 Jan, 2013 [facility] [place] [facility] [address] [id number] [place] [address]- 6429 Dec, [facility] [place] [facility] [address] [id number] [place] [address]- 7276 Dec, [facility] [place] [facility] [address] [id number] [place] [address]- 3536 Dec, [facility] [place] [facility] [address] [id number] [place] [address]- 2064 Nov, [facility] [place] [facility] [address] [id number] [place] [address]- 0868 Nov, [facility] [place] [facility] [address] [id number] [place] [address]- 1088 16 Nov, 2012 [facility] [place] [facility] [address] [id number] [place] [address]- 9346 Nov, [facility] [place] [facility] [address] [id number] [place] [address]- 5378 Nov, [facility] [place] [facility] [address] [id number] [place] [address]- 7124 Nov, [facility] [address] [id number] [place] [address]- 1348 Oct, [facility] [place] [facility] [address] [id number] [place] [address]- 4460 Oct, [facility] [place] [facility] [address] [id number] [place] [address]- 8227 Oct, [facility] [address] [id number] [place] [address]- 3733 Oct, [facility] [place] [facility] [address] [id number] [place] [address]- 4128 Oct, [facility] [address] [id number] [place] [address]- 2291 Oct, [facility] [address] [id number] [place] [address]- 5209 September, [facility] [place] [facility] [address] [id number] [place] [address]- 6644 September, [facility] [place] [facility] [address] [id number] [place] [address]- 9020 September, [facility] [place] [facility] [address] [id number] [place] [address]- 0445 September, [facility] [place] [facility] [address] [id number] [place] [address]- 3891 Aug, [facility] [place] [facility] [address] [id number] [place] [address]- 3050 Aug, [facility] [place] [facility] [address] [id number] [place] [address]- 5029 Jul, [facility] [place] [facility] [address] [id number] [place] [address]- 6035 Jul, [facility] [place] [facility] [address] [id number] [place] [address]- 0656 18 Jul, 2012 [facility] [address] [id number] [place] [address]- 9436 15 Jul, 2012 [facility] [place] [facility] [address] [id number] [place] [address]- 9956 13 Jul, 2012 [facility] [address] [id number] [place] [address]- 3960 08 Jul, 2012 [facility] [place] [facility] [address] [id number] [place] [address]- 5922 20 Jun, 2012 [facility] [address] [id number] [place] [address]- 6017 Jun, [facility] [address] [id number] [place] [address]- 6158 17 May, 2012 [facility] [address] [id number] [place] [address]- 9538 May, [facility] [address] [id number] [place] [address]- 4542 18 Apr, 2012 [facility] [address] [id number] [place] [address]- 2601 18 Apr, 2012 [facility] [address] [id number] [place] [address]- 7381 Apr, [facility] [address] [id number] [place] [address]- 9623 13 Apr, 2012 [facility] [place] [facility] [address] [id number] [place] [address]- 4051 10 Apr, 2012 [facility] [place] [facility] [address] [id number] [place] [address]- 4010 10 Apr, 2012 [facility] [place] [facility] [address] [id number] [place] 07 Apr, 2012 [facility] [place] [facility] [address] [id number] [place] 07 Apr, 2012 [facility] [place] [facility] [address] [id number] [place] [address]- 3840 07 Apr, 2012 [facility] [place] [facility] [address] [id number] [place] [address]- 6888 Apr, [facility] [place] [facility] [address] [id number] [place] [address]- 1996 Apr, [facility] [place] [facility] [address] [id number] [place] [address]- 0946 Apr, [facility] [place] [facility] [address] [id number] [place] [address]- 0938 Apr, [facility] [place] [facility] [address] [id number] [place] [address]- 9686 Apr, [facility] [place] [facility] [address] [id number] [place] [address]- 0661 Apr, [facility] [place] [facility] [address] [id number] [place] [address]- 9981 Apr, [facility] [address] [id number] [place] [address]- 2377 Mar, [facility] [place] [facility] [address] [id number] [place] [address]- 6313 Mar, [facility] [place] [facility] [address] [id number] [place] [address]- 1113 Mar, [facility] [place] [facility] [address] [id number] [place] [address]- 6467 Mar, [facility] [place] [facility] [address] [id number] [place] [address]- 5632 Mar, [facility] [place] [facility] [address] [id number] [place] [address]- 6657 Mar, [facility] [place] [facility] [address] [id number] [place] [address]- 2040 Mar, [facility] [place] [facility] [address] [id number] [place] [address]- 6200 Mar, [facility] [place] [facility] [address] [id number] [place] [address]- 5874 Mar, [facility] [place] [facility] [address] [id number] [place] [address]- 3556 Mar, [facility] [place] [facility] [address] [id number] [place] [address]- 1806 Feb, [facility] [place] [facility] [address] [id number] [place] [address]- 7566 Feb, [facility] [place] [facility] [address] [id number] [place] [address]- 9119 Feb, [facility] [place] [facility] [address] [id number] [place] [address]- 5546 Feb, [facility] [place] [facility] [address] [id number] [place] [address]- 8257 Feb, [facility] [place] [facility] [address] [id number] [place] [address]- 6640 Feb, [facility] [place] [facility] [address] [id number] [place] [address]- 9191 Jan, [facility] [place] [facility] [address] [id number] [place] [address]- 0117 Dec, [facility] [place] [facility] [address] [id number] [place] [address]- 4714 Dec, [facility] [place] [facility] [address] [id number] [place] [address]- 4124 Dec, [facility] [place] [facility] [address] [id number] [place] [address]- 4022 Dec, [facility] [place] [facility] [address] [id number] [place] [address]- 6876 Nov, [facility] [place] [facility] [address] [id number] [place] [address]- 4908 Nov, [facility] [place] [facility] [address] [id number] [place] [address]- 2294 Nov, [facility] [address] [id number] [place] [address]- 3308 Nov, [facility] [place] [facility] [address] [id number] [place] [address]- 6448 Oct, [facility] [address] [id number] [place] [address]- 9427 Oct, [facility] [place] [facility] [address] [id number] [place] [address]- 3496 Oct, [facility] [address] [id number] [place] [address]- 5439 Oct, [facility] [address] [id number] [place] [address]- 0956 Oct, [facility] [address] [id number] [place] [address]- 6987 September, [facility] [address] [id number] [place] [address]- 1291 September, [facility] [address] [id number] [place] [address]- 7898 September, [facility] [address] [id number] [place] [address]- 5563 September, [facility] [address] [id number] [place] [address]- 1801 September, [facility] [place] [facility] [address] [id number] [place] [address]- 7083 September, [facility] [place] [facility] [address] [id number] [place] [address]- 6472 September, [facility] [place] [facility] [address] [id number] [place] [address]- 0906 September, [facility] [address] [id number] [place] [address]- 4526 Aug, [facility] [address] [id number] [place] [address]- 6539 25 Aug, 2011 [facility] [place] [facility] [address] [id number] [place] [address]- 5816 19 Aug, 2011 [facility] [place] [facility] [address] [id number] [place] [address]- 6556 19 Aug, 2011 [facility] [place] [facility] [address] [id number] [place] [address]- 6184 18 Aug, 2011 [facility] [place] [facility] [address] [id number] [place] [address]- 1814 17 Aug, 2011 [facility] [place] [facility] [address] [id number] [place] [address]- 8492 13 Aug, 2011 [facility] [place] [facility] [address] [id number] [place] [address]- 7159 12 Aug, 2011 [facility] [place] [facility] [address] [id number] [place] [address]- 4672 10 Aug, 2011 [facility] [place] [facility] [address] [id number] [place] [address]- 5253 09 Aug, 2011 [facility] [place] [facility] [address] [id number] [place] [address]- 6215 02 Aug, 2011 [facility] [place] [facility] [address] [id number] [place] [address]- 8246 02 Aug, 2011 [facility] [place] [facility] [address] [id number] [place] [address]- 2441 29 Jul, 2011 [facility] [place] [facility] [address] [id number] [place] [address]- 1208 28 Jul, 2011 [facility] [place] [facility] [address] [id number] [place] [address]- 4844 27 Jul, 2011 [facility] [place] [facility] [address] [id number] [place] [address]- 2485 23 Jul, 2011 [facility] [place] [facility] [address] [id number] [place] [address]- 3454 Jul, [facility] [address] [id number] [place] [address]- 0300 Jul, [facility] [place] [facility] [address] [id number] [place] [address]- 0926 14 Jul, 2011 [facility] [place] [facility] [address] [facility] [id number] [place] [address]- 2156 Jul, [facility] [place] [facility] [address] [id number] [place] [address]- 8611 Jul, [facility] [place] [facility] [address] [id number] [place] [address]- 2608 24 Jun, 2011 [facility] [place] [facility] [address] [id number] [place] [address]- 0313 Jun, [facility] [place] [facility] [address] [id number] [place] [address]- 9229 Jun, [facility] [place] [facility] [address] [id number] [place] [address]- 0383 14 Jun, 2011 [facility] [place] [facility] [address] [id number] [place] [address]- 8775 Jun, [facility] [place] [facility] [address] [facility] [id number] [place] [address]- 5842 Jun, [facility] [place] [facility] [address] [facility] [id number] [place] [address]- 7580 Jun, [facility] [place] [facility] [address] [id number] [place] [address]- 3807 May, [facility] [place] [facility] [address] [id number] [place] [address]- 1411 May, [facility] [place] [facility] [address] [facility] [id number] [place] [address]- 0230 May, [facility] [place] [facility] [address] [facility] [id number] [place] [address]- 4252 May, [facility] [place] [facility] [address] [id number] [place] [address]- 2546 May, [facility] [place] [facility] [address] [id number] [place] [address]- 6386 May, [facility] [place] [facility] [address] [id number] [place] [address]- 2546 May, [facility] [place] [facility] [address] [id number] [place] [address]- 3446 Apr, [facility] [place] [facility] [address] [id number] [place] [address]- 8007 Apr, [facility] [place] [facility] [address] [id number] [place] [address]- 6116 Apr, [facility] [place] [facility] [address] [id number] [place] [address]- 2615 Apr, [facility] [place] [facility] [address] [id number] [place] [address]- 7541 Apr, [facility] [place] [facility] [address] [id number] [place] [address]- 4098 Apr, [facility] [place] [facility] [address] [id number] [place] [address]- 1077 Apr, [facility] [place] [facility] [address] [id number] [place] [address]- 6225 Apr, [facility] [place] [facility] [address] [id number] [place] [address]- 1976 Apr, [facility] [place] [facility] [address] [id number] [place] [address]- 9718 Mar, [facility] [place] [facility] [address] [id number] [place] [address]- 3066 Mar, [facility] [place] [facility] [address] [id number] [place] [address]- 2546 Mar, [facility] [place] [facility] [address] [id number] [place] [address]- 3328 Mar, [facility] [place] [facility] [address] [id number] [place] [address]- 8077 Mar, [facility] [place] [facility] [address] [id number] [place] [address]- 2326 Feb, [facility] [place] [facility] [address] [id number] [place] [address]- 8406 Feb, [facility] [place] [facility] [address] [id number] [place] [address]- 9746 Feb, [facility] [place] [facility] [address] [id number] [place] [address]- 9660 Dec, [facility] [place] [facility] [address] [id number] [place] [address]- 0360 Nov, [facility] [place] [facility] [address] [id number] [place] [address]- 9719 Apr, [facility] [place] [facility] [address] [id number] [place] [address]- 4597 Apr, [facility] [place] [facility] [address] [id number] [place] [address]- 3251 16 Apr, 2010 [facility] [place] [facility] [address] [id number] [place] [address]- 0313 Apr, [facility] [place] [facility] [address] [id number], [place] [address]- 2427 Apr, [facility] [place] [facility] [address] [id number], [place] [address]- 2355 Apr, [facility] [place] [facility] [address] [id number] [place] [address]- 4552 Apr, [facility] [place] [facility] [address] [id number] [place] [address]- 3543 Apr, [facility] [place] [facility] [address] [id number] [place] [address]- 0938 Mar, [facility] [place] [facility] [address] [id number] [address] 7922 Mar, [facility] [id number], [place] [address]- 0369 Mar, [facility] [id number], [place] [address]- 9006 Mar, [facility] [id number], [place] [address]- 7620 Mar, [facility] [id number], [place] [address]- 2432 Mar, [facility] [id number] [place] [address]- 0626 Mar, [facility] [id number], [place] [address]- 1406 Mar, [facility] [id number], [place] [address]- 3619 Mar, [facility] [id number], [place] [address]- 1693 Mar, IMMUNIZATIONS No Known Immunizations SOCIAL HISTORY Never Assessed REASON FOR VISIT [facility] PLAN OF CARE VITAL SIGNS MEDICATIONS Unknown [...]
--- OUTSIDE RECORDS SUMMARY | 2018-04-22 23:10 | XMS REPORT ---
Author Author CARLOS LARA [facility] Address [address] [place] [address] Care Team Providers Care [employer] Crewmember Name Role Phone CARLOS LARA Unavailable PROBLEMS Type Condition ICD9-CM Code ZZN46-RA Code Onset Dates Condition Status SNOMED Code Problem Mixed hyperlipidemia E78.2 Active 777421326 Problem Severe sleep apnea G47.30 Active 41116064 Problem Iron deficiency anemia, unspecified iron deficiency anemia type D50.9 Active 01477388 Problem Decreased diffusion capacity R94.2 Active 99370857 Problem Stenosis of carotid artery, unspecified laterality I65.29 Active 02915947 Problem Coronary artery disease involving [place] coronary artery of [place] heart, angina presence unspecified I25.10 Active 5504822332806 Problem Generalized osteoarthritis M15.9 Active 232609258 Problem Aortic valve sclerosis I35.8 Active 00160060 Problem Port catheter in place Z95.828 Active 478435268 Problem Essential hypertension I10 Active 12812460 Problem Transient cerebral ischemia, unspecified type G45.9 Active 135700277 Problem Renal osteodystrophy N25.0 Active 01719962 Problem Anxiety about health F41.8 Active 112266854 Problem Chronic kidney disease, unspecified CKD stage N18.9 Active 585953972 Problem Type 2 diabetes mellitus with unspecified complications E11.8 Active 08002083 Problem Other chronic pain G89.29 Active 95683718 Problem Chronic kidney disease (CKD), stage 4 (severe) N18.4 Active 925800342 Problem Type 2 diabetes mellitus with hyperglycemia E11.65 Active 54054986 Problem Type 2 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 Active 32290940 Problem 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 Active 0105019 Problem Pain R52 Active 79402559 Problem MCC 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.4 Active 029052051 Problem Slow transit constipation K59.01 Active 59583310 Problem Bladder spasms N32.89 Active 661354949 Problem Anemia in other chronic diseases classified elsewhere D63.8 Active 265246822 Problem Chronic kidney disease, stage 3 (moderate) N18.3 Active 277370271 Problem Type 2 diabetes mellitus with foot ulcer E11.621 Active 771746590 Problem Type 2 diabetes mellitus with diabetic polyneuropathy E11.42 Active 157727770 Problem Hypoxemia R09.02 Active 161307051 Problem BMI 50.0-59.9, adult Z68.43 Active 954818355 Problem Diarrhea, unspecified type R19.7 Active 02304348 Problem Trochanteric bursitis of left hip M70.62 Active [id number] ALLERGIES No Information ENCOUNTERS Encounter Location Date Diagnosis [facility] [address] [place], [place] [id number] Dec, Low back pain M54.5 ; Other chronic pain G89.29 and Chronic kidney disease (CKD), stage 4 (severe) N18.[address] [address] Dec, Type 2 diabetes mellitus with hyperglycemia E11.65 [place] [address] [address]- [address] Dec, [facility] [address] [place] [id number] Dec, Type 2 diabetes mellitus with hyperglycemia E11.65 ; Essential hypertension I10 ; Generalized osteoarthritis M15.9 ; Mixed hyperlipidemia E78.2 ; Hypoxia R09.02 ; Port catheter in place Z95.828 ; Anemia due to acute blood loss D62 ; Chronic kidney disease, unspecified CKD stage N18.9 and Severe sleep apnea G47.30 [place] [address] [place] [id number] [place] [address] 19376- 3502 Dec, Type 2 diabetes mellitus with hyperglycemia E11.65 [place] [address] [address]- 8220 Dec, [place] [address] [address]59- [address]28 Dec, Type 2 diabetes mellitus with hyperglycemia E11.65 [facility] [facility] [address] [place] [address] Dec, Left leg pain M79.605 [facility] [address] [place] [id number] [place] [address] 259666- 0100 Nov, Slow transit constipation K59.01 [facility] [address] [address] Nov, [facility] [address] [place] [id number] Nov, Anemia due to acute blood loss D62 [facility] [address] [id number] [place] [address] 33704- 3331 Nov, [facility] [address] [id number] [place] [address] 20370- 4835 Nov, Bladder spasms N32.89 [facility] [address] [address] [id number] [place] [address] 53894- 4346 Nov, Pain R52 [facility] [address] [place] [id number] Nov, Anemia due to acute blood loss D62 [facility] [id number] [place] [address] 10353- 7717 Nov, Pain in right hip M25.551 and Pain in left hip M25.552 [facility] [address] [address] Nov, [facility] [address] [address] 4261 Nov, [facility] [id number] [place] [address] 70308- 0018 Nov, [facility] [address] [address] [id number] [place] [address] 002499- 7804 Nov, [facility] [address] [address] 7933 Oct, [facility] [address] [address] [id number] [place] [address] 98755- 5958 Oct, [facility] [address] [place] [id number] Oct, Encounter for examination for admission to group home Z02.2 ; Chronic kidney disease, unspecified CKD stage N18.9 ; Type 2 diabetes mellitus with unspecified complications E11.8 ; 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 ; Essential hypertension I10 ; Hypoxia R09.02 ; Severe sleep apnea G47.30 ; Stenosis of carotid artery, unspecified laterality I65.29 ; Generalized osteoarthritis M15.9 ; Coronary artery disease involving [place] coronary artery of [place] heart, angina presence unspecified I25.10 ; Port catheter in place Z95.828 and Hemorrhoids, unspecified hemorrhoid type K64.9 [place] [address] 21596- 2817 Oct, [place] [address] 44271- 6836 Oct, [place] [address] 44604- 6337 Oct, [facility] [address] 45297- 5053 Oct, [facility] [address] [id number] [place] [address] 27225 -3528 September, BMI 50.0-59.9, adult Z68.43 [facility] [address] [place] [id number] [place] [address] 50378- 9834 September, [facility] [address] [place] [id number] [place] [address] 30319- 7876 September, [place] [address] 74861- 5081 Aug, Type 2 diabetes mellitus with foot ulcer E11.621 ; Transient cerebral ischemia, unspecified type G45.9 ; Essential hypertension I10 ; Mixed hyperlipidemia E78.2 and BMI 50.0-59.9, adult Z68.43 [facility] [address] 58968- 4944 Aug, [facility] [address] [id number] [place] [address] 28527- 4600 14 Jul, 2017 Anxiety about health F41.8 and Mixed hyperlipidemia E78.2 [facility] [id number] [address] 13 Jul, 2017 [facility] [address] [id number] [place] [address] 99831- 6424 Jun, [facility] [address] [id number] [place] [address] 17317- 5663 Jun, Type 2 diabetes mellitus with hyperglycemia E11.65 ; Type 2 diabetes mellitus with foot ulcer E11.621 ; Port catheter in place Z95.828 ; 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 ; Contact with and (suspected) exposure to potentially hazardous body fluids Z77.21 and BMI 50.0-59.9, adult Z68.43 [facility] [address] [id number] [place] [address] 13843- 6193 May, [facility] [address] [place] [id number] [place] [address] 95001- 2725 May, Open wound of right great toe, subsequent encounter S91.101D [facility] [facility] [address] [id number] [place] [address] 98373- 6673 May, [facility] [address] [id number] [place] [address] 75262- 2554 Apr, [facility] [address] [id number] [place] [address] 53834- 2327 Apr, [facility] [address] [id number] [place] [address] 88933- 1908 Apr, [facility] [address] [id number] [place] [address] 57301- 7589 Apr, Type 2 diabetes mellitus with diabetic polyneuropathy E11.42 [place] [address] [place] [address] [address]- [address]70 Apr, Open wound of right great toe, subsequent encounter S91.101D [place] [address] 12883- 0131 08 Apr, 2017 Open wound of right great toe, subsequent encounter S91.101D ; Breast pain, left N64.4 ; Breast cancer screening Z12.31 ; Type 2 diabetes mellitus with foot ulcer E11.621 ; Essential hypertension I10 and BMI 50.0-59.9, adult Z68.43 [place] [address] 66125- 1471 Mar, Encounter for immunization Z23 [place] [address] 07215- 9827 Mar, [place] [address] 30177- 9216 Mar, [place] [address] 18920- 0545 Mar, Type 2 diabetes mellitus with diabetic polyneuropathy E11.42 ; Type 2 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 ; Type 2 diabetes mellitus with foot ulcer E11.621 ; Essential hypertension I10 ; Hypoxemia R09.02 and Generalized osteoarthritis M15.9 [place] [address] [place] [id number] [place] [address] 65994- 4665 Mar, Chronic kidney disease, stage 3 (moderate) N18.3 ; Acute cystitis without hematuria N30.00 ; Essential hypertension I10 ; Muscle spasms of neck M62.838 ; Type 2 diabetes mellitus with diabetic polyneuropathy E11.42 and BMI 50.0-59.9, adult Z68.43 [place] [address] 53038- 1198 Feb, [facility] [address] [place] [id number] [place] [address] 96114 -6054 Feb, [facility] [address] 26136- 4570 Feb, [facility] [address] [address] 2152 Feb, [facility] [address] [id number] [place] [address] 591356- 5603 Feb, [facility] [address] [id number] [place] [address] 94394- 4383 Feb, [facility] [address] [id number] [place] [address] 402795- 2823 Feb, Mixed hyperlipidemia E78.2 [facility] [address] [place] [id number] [place] [address] 20644- 5453 Feb, [facility] [address] [id number] [place] [address] 69295- 1875 Jan, [facility] [address] [id number] [place] [address] 37454- 9394 Jan, Generalized osteoarthritis M15.9 [facility] [address] [id number] [place] [address] 33041- 0099 Oct, [facility] [address] [id number] [place] [address] 61004- 7292 Jul, [facility] [address] [address]- 1669 Jul, [facility] [id number] [place] [address] 54781- 9010 Jul, Type 2 diabetes mellitus with hyperglycemia E11.65 ; Chronic kidney disease, stage 3 (moderate) N18.3 ; Type 2 diabetes mellitus with foot ulcer E11.621 ; Type 2 diabetes mellitus with diabetic polyneuropathy E11.42 ; Generalized osteoarthritis M15.9 ; Trochanteric bursitis of left hip M70.62 and Tinea pedis of both feet B35.3 [facility] [address] [address]- 6273 13 Jun, 2016 [facility] [address] [id number] [place] [address] 49083- 9364 Apr, [facility] [address] [place] [id number] [place] [address] 21943- 1845 Apr, [facility] [address] [place] [id number] [place] [address] 74995- 5984 Mar, [facility] [address] 34939- 6746 Feb, Encounter for immunization Z23 [place] [address] 67979- 0793 18 Feb, 2016 [place] [address] 07741- 4774 14 Feb, 2016 Type 2 diabetes mellitus with hyperglycemia E11.65 ; Encounter for immunization Z23 ; Diarrhea, unspecified type R19.7 ; Essential hypertension I10 ; Mixed hyperlipidemia E78.2 ; Hypoxia R09.02 ; 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 and Type 2 diabetes mellitus with foot ulcer E11.621 [place] [address] [place] [id number] [place] [address] 15297- 7528 Jan, [place] [address] [place] [id number] [place] [address] 27808- 2872 Jan, Type 2 diabetes mellitus with hyperglycemia E11.65 and Pneumonia due to infectious organism, unspecified laterality, unspecified part of lung J18.9 [place] [address] [place] [id number] [place] [address] 76002- 1202 Jan, [place] [address] [place] [id number] [place] [address] 62602- 8996 Jan, [place] [address] [place] [id number] [place] [address] 70323- 3643 Oct, Type 2 diabetes mellitus with hyperglycemia E11.65 ; Generalized osteoarthritis M15.9 and Chronic prescription opiate use Z79.891 [place] [address] 98253- 5086 September, [facility] [address] [address]- 4029 Aug, [facility] [address] [place] [id number] [place] [address] 36054- 8941 Aug, [facility] [address] [id number] [place] [address] 66925- 2699 Aug, [facility] [address] [place] [id number] [place] [address] 74322- 8297 Aug, [facility] [address] [place] [id number] [place] [address] 54415- 5952 Jun, [facility] [address] [place] [id number] [place] [address] 60078- 7205 Jun, Type 2 diabetes mellitus with hyperglycemia E11.65 ; Mixed hyperlipidemia E78.2 ; Vaginal itching L29.8 ; Neck muscle spasm M62.838 and Skin abrasion T14.8 [facility] [address] [place] [id number] [place] [address] 71161- 2088 Apr, [facility] [address] [place] [id number] [place] [address] 64905- 8903 Apr, [facility] [address] [place] [id number] [place] [address] 52142- 6381 Mar, [facility] [address] [place] [address] 53106- 9016 Feb, [facility] [address] [place] [id number] [place] [address] 97563- 5827 Feb, Type 2 diabetes mellitus with hyperglycemia E11.65 ; Type 2 diabetes mellitus with foot ulcer E11.621 ; Type 2 diabetes mellitus with diabetic polyneuropathy E11.42 and Encounter for immunization Z23 [facility] [address] [address]- 9721 Jan, Hypertension 401.9 ; Uncontrolled type 2 diabetes mellitus 250.02 ; Right shoulder pain 719.41 and Ulcer of heel and midfoot 707.14 [facility] [address] [address]- 4769 Dec, Diabetes with other specified manifestations, type II or unspecified type, not stated as uncontrolled 250.80 ; Ulcer of heel and midfoot 707.14 ; Hypertension 401.9 ; Hip pain, left 719.45 and Acute anxiety 300.00 [facility] [address] [place] [id number] [place] [address] 76326- 7708 Nov, [facility] [address] [address] [id number] [place] [address] 36469- 5754 Nov, [facility] [address] [place] [id number] [place] [address] 37459- 5219 September, Anxiety attack 300.01 and Cellulitis 682.9 [facility] [address] [place] [id number] [place] [address] 48316- 5048 September, [facility] [address] [id number] [place] [address] 36516- 7972 September, [facility] [address] [place] [id number] [place] [address] 07072- 6740 September, [facility] [address] [place] [id number] [place] [address] 92340- 3098 Aug, [facility] [address] [address]- 5796 Aug, [facility] [id number] [place] [address] 47204- 4778 Jul, [facility] [address] [address]- 8236 Jul, [facility] [address] [place] [id number] [place] [address] 43923771- 1248 Jul, [facility] [address] [address]- 3265 May, [facility] [address] [id number] [place] [address] 75652- 1806 May, [facility] [place] [facility] [address] [id number] [place] [address]- 3387 Mar, [facility] [place] [facility] [address] [id number] [place] [address]- 7078 Mar, [facility] [place] [facility] [address] [id number] [place] [address]- 2400 Mar, [facility] [place] [facility] [address] [id number] [place] [address]- 5084 Mar, [facility] [place] [facility] [address] [id number] [place] [address]- 9044 Mar, [facility] [place] [facility] [address] [id number] [place] [address]- 4179 Mar, [facility] [place] [facility] [address] [id number] [place] [address]- 2991 Mar, [facility] [place] [facility] [address] [id number] [place] [address]- 3762 14 Feb, 2014 [facility] [place] [facility] [address] [id number] [place] [address]- 0575 14 Feb, 2014 [facility] [place] [facility] [address] [id number] [place] [address]- 6828 30 Jan, 2014 [facility] [place] [facility] [address] [id number] [address]- 7678 30 Jan, 2014 [facility] [place] [facility] [address] [id number] [address]- 7054 26 Jan, 2014 [facility] [place] [facility] [address] [id number] [place] [address]- 9580 26 Jan, 2014 [facility] [place] [facility] [address] [id number] [place] [address]- 9643 25 Jan, 2014 [facility] [place] [facility] [address] [id number] [place] [address]- 7048 25 Jan, 2014 [facility] [place] [facility] [address] [id number] [place] [address]- 7765 25 Sep, 2013 [facility] [place] [facility] [address] [id number] [place] [address] 2540 25 Sep, 2013 [facility] [place] [facility] [address] [id number] [place] [address]- 2546 18 Sep, 2013 [facility] [place] [facility] [address] [id number] [place] [address]- 6030 18 Sep, 2013 [facility] [place] [facility] [address] [id number] [place] [address]- 8890 06 Sep, 2013 [facility] [place] [facility] [address] [id number] [place] [address]- 7728 06 Sep, 2013 [facility] [place] [facility] [address] [id number] [place] [address]- 1702 05 Sep, 2013 [facility] [place] [facility] [address] [id number] [place] [address]- 1245 05 Sep, 2013 [facility] [place] [facility] [address] [id number] [place] [address]- 5460 05 Sep, 2013 [facility] [place] [facility] [address] [id number] [place] [address]- 2549 05 Sep, 2013 [facility] [place] [facility] [address] [id number] [place] [address]- 254 05 Sep, 2013 [facility] [place] [facility] [address] [id number] [place] [address]- 2548 05 Jan, 2013 [facility] [place] [facility] [address] [id number] [place] [address]- 3457 Dec, 2013 [facility] [place] [facility] [address] [id number] [place] [address]- 1322 Dec, 2013 [facility] [place] [facility] [address] [id number] [place] [address]- 8001 Dec, 2013 [facility] [place] [facility] [address] [id number] [place] [address]- 5142 Dec, [facility] [place] [facility] [address] [id number] [place] [address]- 6930 Dec, [facility] [place] [facility] [address] [id number] [place] [address]- 2397 Dec, [facility] [place] [facility] [address] [id number] [place] [address]- 2336 Dec, [facility] [place] [facility] [address] [id number] [place] [address]- 7824 Dec, [facility] [place] [facility] [address] [id number] [place] [address]- 4220 Dec, [facility] [place] [facility] [address] [id number] [place] [address]- 3838 Dec, [facility] [place] [facility] [address] [id number] [place] [address]- 2904 Nov, [facility] [place] [facility] [address] [id number] [place] [address]- 4479 Nov, [facility] [place] [facility] [address] [id number] [place] [address]- 7075 Nov, [facility] [place] [facility] [address] [id number] [place] [address]- 5147 Nov, [facility] [place] [facility] [address] [id number] [place] [address]- 0918 Nov, [facility] [place] [facility] [address] [id number] [place] [address]- 7186 Nov, [facility] [place] [facility] [address] [id number] [place] [address] Oct, [facility] [place] [facility] [address] [id number] [place] [address] Oct, [facility] [place] [facility] [address] [id number] [place] [address] Oct, [facility] [place] [facility] [address] [id number] [place] [address] Oct, [facility] [place] [facility] [address] [id number] [place] [address] Oct, [facility] [place] [facility] [address] [id number] [place] [address] Oct, [facility] [place] [facility] [address] [id number] [place] [address] Oct, [facility] [place] [facility] [address] [id number] [place] [address] Oct, [facility] [place] [facility] [address] [id number] [place] [address] Oct, [facility] [place] [facility] [address] [id number] [place] [address] Oct, [facility] [place] [facility] [address] [id number] [place] [address] Oct, [facility] [place] [facility] [address] [id number] [place] [address] Oct, [facility] [place] [facility] [address] [id number] [place] [address] September, [facility] [place] [facility] [address] [id number] [place] [address] September, [facility] [place] [facility] [address] [id number] [place] [address] September, [facility] [place] [facility] [address] [id number] [place] [address] Aug, [facility] [place] [facility] [address] [id number] [place] [address] Aug, [facility] [place] [facility] [address] [id number] [place] [address] Jul, [facility] [place] [facility] [address] [id number] [place] [address] Jul, [facility] [place] [facility] [address] [id number] [place] [address]- [address] 10 Jul, 2013 [facility] [place] [facility] [address] [id number] [place] [address] Jul, [facility] [place] [facility] [address] [id number] [place] [address] Jul, [facility] [place] [facility] [address] [id number] [place] [address] Jul, [facility] [place] [facility] [address] [id number] [place] [address] Jul, [facility] [place] [facility] [address] [id number] [place] [address] Jul, [facility] [place] [facility] [address] [id number] [place] [address] Jul, [facility] [place] [facility] [address] [id number] [place] [address] Jul, [facility] [place] [facility] [address] [id number] [place] [address] Jun, [facility] [place] [facility] [address] [id number] [place] [address]- [address] Jun, [facility] [place] [facility] [address] [id number] [place] [address] Jun, [facility] [place] [facility] [address] [id number] [place] [address] Jun, [facility] [place] [facility] [address] [id number] [place] [address] May, [facility] [place] [facility] [address] [id number] [place] [address] May, [facility] [place] [facility] [address] [id number] [place] [address] 1578 Apr, [facility] [place] [facility] [address] [id number] [address] Apr, [facility] [place] [facility] [address] [id number] [place] [address] 2383 Apr, [facility] [place] [facility] [address] [id number] [place] [address]- 5874 Apr, [facility] [place] [facility] [address] [facility] [id number] [place] [address]- 4907 Apr, [facility] [place] [facility] [address] [id number] [address] 7[address] Apr, [facility] [place] [facility] [address] [id number] [place] [address] 3193 Apr, [facility] [place] [facility] [address] [id number] [place] [address]- 4999 Apr, [facility] [place] [facility] [address] [id number] [place] [address] Mar, [facility] [place] [facility] [address] [id number] [place] [address] 1655 Mar, [facility] [place] [facility] [address] [id number] [place] [address] 4072 Mar, [facility] [place] [facility] [address] [id number] [place] [address]- 6466 Mar, [facility] [place] [facility] [address] [id number] [place] [address] 9114 Mar, [facility] [place] [facility] [address] [id number] [place] [address]- 9429 Mar, [facility] [place] [facility] [address] [id number] [place] [address]- 9[address] Feb, [facility] [place] [facility] [address] [id number] [place] [address]- 7763 Feb, [facility] [place] [facility] [address] [facility] [id number] [address]- [address] Feb, [facility] [place] [facility] [address] [id number] [place] [address] 7866 18 Feb, 2013 [facility] [address] [id number] [place] [address]- 8013 14 Feb, 2013 [facility] [place] [facility] [address] [id number] [place] [address]- 5141 14 Feb, 2013 [facility] [address] [id number] [place] [address]- 3907 04 Feb, 2013 [facility] [address] [id number] [place] [address]- 5129 27 Jan, 2013 [facility] [address] [id number] [place] [address]- 5266 26 Jan, 2013 [facility] [address] [id number] [place] [address]- 5777 19 Jan, 2013 [facility] [address] [id number] [place] [address]- 6505 05 Jan, 2013 [facility] [address] [id number] [place] [address]- 7112 Dec, [facility] [address] [id number] [place] [address]- 5362 Dec, [facility] [address] [id number] [place] [address]- 6431 Dec, [facility] [place] [facility] [address] [id number] [place] [address]- 3621 Nov, [facility] [address] [id number] [place] [address]- 1199 Nov, [facility] [place] [facility] [address] [id number] [place] [address]- 1564 Nov, [facility] [place] [facility] [address] [id number] [place] [address] 1934 Nov, [facility] [place] [facility] [address] [id number] [place] [address]- 2575 Nov, [facility] [address] [id number] [place] [address]- 4211 Nov, [facility] [place] [facility] [address] [id number] [place] [address]- 2782 Oct, [facility] [place] [facility] [address] [id number] [place] [address]- 5499 Oct, [facility] [place] [facility] [address] [id number] [place] [address]- 2348 Oct, [facility] [address] [id number] [place] [address]- 6700 Oct, [facility] [place] [facility] [address] [id number] [place] [address]- 7968 Oct, [facility] [place] [facility] [address] [id number] [place] [address]- 7537 Oct, [facility] [place] [facility] [address] [id number] [place] [address]- 5632 September, [facility] [place] [facility] [address] [id number] [place] [address]- 8000 September, [facility] [place] [facility] [address] [id number] [place] [address]- 9304 September, [facility] [place] [facility] [address] [id number] [place] [address]- 5006 September, [facility] [place] [facility] [address] [id number] [place] [address]- 4271 Aug, [facility] [place] [facility] [address] [id number] [place] [address]- 9356 Aug, [facility] [place] [facility] [address] [id number] [place] [address]- 3836 Jul, [facility] [place] [facility] [address] [id number] [place] [address]- 7306 Jul, [facility] [place] [facility] [address] [id number] [place] [address]- 5935 18 Jul, 2012 [facility] [address] [id number] [place] [address]- 5276 15 Jul, 2012 [facility] [address] [id number] [place] [address]- 2726 13 Jul, 2012 [facility] [address] [id number] [place] [address]- 7886 08 Jul, 2012 [facility] [address] [id number] [place] [address]- 7330 20 Jun, 2012 [facility] [address] [id number] [place] [address]- 5126 13 Jun, 2012 [facility] [address] [id number] [place] [address]- 9656 17 May, 2012 [facility] [address] [id number] [place] [address]- 8385 04 May, 2012 [facility] [address] [id number] [place] [address]- 4333 18 Apr, 2012 [facility] [address] [id number] [place] [address]- 8483 18 Apr, 2012 [facility] [address] [id number] [place] [address]- 9755 Apr, [facility] [address] [id number] [place] [address]- 5449 13 Apr, 2012 [facility] [address] [id number] [place] [address]- 2549 10 Apr, 2012 [facility] [address] [id number] [place] [address]- 3911 10 Apr, 2012 [facility] [address] [id number] [place] [address] 07 Apr, 2012 [facility] [address] [id number] [place] [address]- 4677 07 Apr, 2012 [facility] [place] [facility] [address] [id number] [place] [address]- 5173 Apr, [facility] [place] [facility] [address] [id number] [place] [address]- 1326 Apr, [facility] [place] [facility] [address] [id number] [place] [address]- 8456 Apr, [facility] [place] [facility] [address] [id number] [place] [address]- 0476 Apr, [facility] [place] [facility] [address] [id number] [place] [address]- 9258 Apr, [facility] [place] [facility] [address] [id number] [place] [address]- 0547 Apr, [facility] [place] [facility] [address] [id number] [place] [address]- 3000 Apr, [facility] [place] [facility] [address] [id number] [place] [address]- 8281 Apr, [facility] [place] [facility] [address] [id number] [place] [address]- 9382 Mar, [facility] [place] [facility] [address] [id number] [place] [address]- 0545 Mar, [facility] [place] [facility] [address] [id number] [place] [address]- 4259 Mar, [facility] [place] [facility] [address] [id number] [place] [address]- 6498 Mar, [facility] [place] [facility] [address] [id number] [place] [address]- 8711 Mar, [facility] [place] [facility] [address] [id number] [place] [address]- 9156 Mar, [facility] [place] [facility] [address] [id number] [place]286 05 Mar, 2012 [facility] [place] [facility] [address] [id number] [place] [address]- 8978 Mar, [facility] [place] [facility] [address] [id number] [place] [address]- 2546 Mar, [facility] [place] [facility] [address] [id number] [place] [address]- 2546 Mar, [facility] [place] [facility] [address] [id number] [place] [address]- 2546 Feb, [facility] [place] [facility] [address] [id number] [place] [address]- 2546 Feb, [facility] [place] [facility] [address] [id number] [place] [address]- 2546 Feb, [facility] [place] [facility] [address] [id number] [place] [address]- 2546 Feb, [facility] [place] [facility] [address] [id number] [place] [address]- 2546 Feb, [facility] [place] [facility] [address] [id number] [place] [address]- 254 Feb, [facility] [place] [facility] [address] [id number] [place] [address]- 1951 Jan, [facility] [place] [facility] [address] [id number] [place] [address]- 9716 Dec, [facility] [place] [facility] [address] [id number] [place] [address]- 1356 Dec, [facility] [place] [facility] [address] [id number] [address]- 2546 Dec, [facility] [place] [facility] [address] [id number] [place] [address]- 2546 Dec, [facility] [place] [facility] [address] [id number] [place] [address]- 2546 Nov, [facility] [place] [facility] [address] [id number] [place] [address]- 2546 Nov, [facility] [place] [facility] [address] [id number] [place] [address]- 3515 Nov, [facility] [address] [id number] [place] [address]- 9040 Nov, [facility] [place] [facility] [address] [id number] [place] [address]- 3319 Oct, [facility] [address] [id number] [place] [address]- 3790 Oct, [facility] [place] [facility] [address] [id number] [place] [address]- 5870 Oct, [facility] [address] [id number] [place] [address]- 5154 Oct, [facility] [address] [id number] [place] [address]- 8730 Oct, [facility] [address] [id number] [place] [address]- 4324 September, [facility] [address] [id number] [place] [address]- 9441 September, [facility] [place] [facility] [address] [id number] [place] [address]- 9328 September, [facility] [address] [id number] [place] [address]- 4701 September, [facility] [place] [facility] [address] [id number] [place] [address]- 3718 September, [facility] [place] [facility] [address] [id number] [place] [address]- 7251 September, [facility] [place] [facility] [address] [id number] [place] [address]- 4414 September, [facility] [place] [facility] [address] [id number] [place] [address]- 2086 September, [facility] [place] [facility] [address] [id number] [place] [address]- 7602 Aug, [facility] [place] [facility] [address] [id number] [place] [address]- 1532 25 Aug, 2011 [facility] [address] [id number] [place] [address]- 5721 Aug, [facility] [address] [id number] [place] [address]- 5170 Aug, [facility] [address] [id number] [place] [address]- 2790 18 Aug, 2011 [facility] [address] [id number] [place] [address]- 5183 17 Aug, 2011 [facility] [address] [id number] [place] [address]- 0557 13 Aug, 2011 [facility] [address] [id number] [place] [address]- 5198 Aug, [facility] [address] [id number] [place] [address]- 6566 Aug, [facility] [address] [id number] [place] [address]- 8184 Aug, [facility] [address] [id number] [place] [address]- 1902 Aug, [facility] [address] [id number] [place] [address]- 8928 Aug, [facility] [address] [id number] [place] [address]- 2807 29 Jul, 2011 [facility] [place] [facility] [address] [id number] [place] [address]- 6859 28 Jul, 2011 [facility] [place] [facility] [address] [id number] [place] [address]- 9777 27 Jul, 2011 [facility] [place] [facility] [address] [id number] [place] [address]- 7687 23 Jul, 2011 [facility] [place] [facility] [address] [id number] [place] [address]- 9396 Jul, [facility] [address] [id number] [place] [address]- 5026 Jul, [facility] [place] [facility] [address] [id number] [place] [address]- 5026 14 Jul, 2011 [facility] [place] [facility] [address] [id number] [place] [address]- 1236 Jul, [facility] [place] [facility] [address] [id number] [place] [address]- 9408 07 Jul, 2011 [facility] [place] [facility] [address] [id number] [place] [address]- 2451 24 Jun, 2011 [facility] [place] [facility] [address] [id number] [place] [address]- 8207 Jun, [facility] [address] [id number] [place] [address]- 8322 23 Jun, 2011 [facility] [place] [facility] [address] [id number] [place] [address]- 1347 14 Jun, 2011 [facility] [place] [facility] [address] [id number] [place] [address]- 0357 02 Jun, 2011 [facility] [place] [facility] [address] [facility] [id number] [place] [address]- 1505 Jun, [facility] [place] [facility] [address] [facility] [id number] [place] [address]- 0482 Jun, [facility] [place] [facility] [address] [id number] [place] [address]- 5397 May, [facility] [place] [facility] [address] [id number] [place] [address]- 5991 May, [facility] [place] [facility] [address] [id number] [place] [address]- 9426 May, [facility] [place] [facility] [address] [id number] [place] [address]- 3866 May, [facility] [place] [facility] [address] [id number] [place] [address]- 4322 May, [facility] [address] [id number] [place] [address]- 0064 May, [facility] [address] [id number] [place] [address]- 4686 May, [facility] [address] [id number] [place] [address]- 8265 Apr, [facility] [address] [id number] [place] [address]- 7005 Apr, [facility] [address] [id number] [place] [address]- 8234 Apr, [facility] [address] [id number] [place] [address]- 1128 Apr, [facility] [address] [id number] [place] [address]- 7309 Apr, [facility] [address] [id number] [place] [address]- 6673 Apr, [facility] [address] [id number] [place] [address]- 1543 Apr, [facility] [address] [id number] [place] [address]- 3744 Apr, [facility] [address] [id number] [place] [address]- 7316 Apr, [facility] [place] [facility] [address] [id number] [place] [address]- 3543 Mar, [facility] [place] [facility] [address] [id number] [place] [address]- 7776 Mar, [facility] [place] [facility] [address] [id number] [place] [address]- 4556 Mar, [facility] [address] [id number] [place] [address]- 8855 Mar, [facility] [place] [facility] [address] [id number] [place] [address]- 6022 Mar, [facility] [place] [facility] [address] [id number] [place] [address]- 8496 Feb, [facility] [place] [facility] [address] [id number] [place] [address]- 9656 Feb, [facility] [place] [facility] [address] [id number] [place] [address]- 5406 Feb, [facility] [place] [facility] [address] [id number] [place] [address]- 1470 Dec, [facility] [place] [facility] [address] [id number] [place] [address]- 0178 Nov, [facility] [place] [facility] [address] [id number] [place] [address]- 6487 Apr, [facility] [place] [facility] [address] [id number] [place] [address]- 6628 Apr, [facility] [place] [facility] [address] [id number] [place] [address]- 7549 16 Apr, 2010 [facility] [place] [facility] [address] [id number] [place] [address]- 1533 Apr, [facility] [place] [facility] [address] [id number] [place] [address]- 2827 Apr, [facility] [place] [facility] [address] [id number] [place] [address]- 8237 Apr, [facility] [place] [facility] [address] [id number] [place] [address] 2544 Apr, [facility] [place] [facility] [address] [id number] [place] [address]- 8028 Apr, [facility] [place] [facility] [address] [id number] [place] [address]- 8262 Mar, [facility] [place] [facility] [address] [id number] [address]- 7650 Mar, [facility] [id number] [address]- 5061 Mar, [facility] [id number] [address]- 7991 Mar, [facility] [id number] [address]- 7053 Mar, [facility] [id number] [address]- 3502 Mar, [facility] [id number] [place] [address] 1135 Mar, [facility] [id number] [address]- 2049 Mar, [facility] [id number] [address] Mar, [facility] [id number] [address] Mar, IMMUNIZATIONS No Known Immunizations SOCIAL HISTORY Never Assessed REASON FOR VISIT CO Admission PLAN OF CARE Activity Details Follow Up prn Reason: VITAL SIGNS MEDICATIONS Medication Instructions Dosage Frequency Start Date End Date Duration Status Hydrocortisone Acetate 30 MG Rectal Three times a day 1 suppository 8h Oct, Nov, 07 days Active RESULTS No Results PROCEDURES Procedure Date Ordered Result Body Site [facility] VISIT ESTABLISHED PATIENT October 31, 2017 INSTRUCTIONS MEDICATIONS ADMINISTERED No Known Medications [...]
--- OUTSIDE RECORDS SUMMARY | 2018-04-22 23:10 | XMS REPORT ---
Author Author CARLOS LARA [facility] Address [address] [place] [address] Care Team Providers Care Underwater Hunter Name Role Phone CARLOS LARA Unavailable PROBLEMS Type Condition ICD9-CM Code GOH55-UI Code Onset Dates Condition Status SNOMED Code Problem Mixed hyperlipidemia E78.2 Active 382506273 Problem Severe sleep apnea G47.30 Active 48170274 Problem Iron deficiency anemia, unspecified iron deficiency anemia type D50.9 Active 20633110 Problem Decreased diffusion capacity R94.2 Active 74070722 Problem Stenosis of carotid artery, unspecified laterality I65.29 Active 92693568 Problem Coronary artery disease involving [place] coronary artery of [place] heart, angina presence unspecified I25.10 Active 3430932383813 Problem Generalized osteoarthritis M15.9 Active 517681557 Problem Aortic valve sclerosis I35.8 Active 37915130 Problem Port catheter in place Z95.828 Active 170435887 Problem Essential hypertension I10 Active 39736823 Problem Transient cerebral ischemia, unspecified type G45.9 Active 922174987 Problem Renal osteodystrophy N25.0 Active 00702205 Problem Anxiety about health F41.8 Active 772602904 Problem Chronic kidney disease, unspecified CKD stage N18.9 Active 467438506 Problem Type 2 diabetes mellitus with unspecified complications E11.8 Active 57683381 Problem Other chronic pain G89.29 Active 17010130 Problem Chronic kidney disease (CKD), stage 4 (severe) N18.4 Active 998145442 Problem Type 2 diabetes mellitus with hyperglycemia E11.65 Active 41507553 Problem Type 2 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 Active 39669107 Problem 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0-59.9, adult Z68.43 Active 149269732 Problem Diarrhea, unspecified type R19.7 Active 25574000 Problem Trochanteric bursitis of left hip M70.62 Active [id number] ALLERGIES No Information ENCOUNTERS Encounter Location Date Diagnosis [facility] [address] [place] [id number] Dec, Low back pain M54.5 ; Other chronic pain G89.29 and Chronic kidney disease (CKD), stage 4 (severe) N18.[address] [address] Dec, Type 2 diabetes mellitus with hyperglycemia E11.65 [place] [address] [address]- [address]78 Dec, [employer] [address] [place] [id number] Dec, Type 2 diabetes mellitus with hyperglycemia E11.65 ; Essential hypertension I10 ; Generalized osteoarthritis M15.9 ; Mixed hyperlipidemia E78.2 ; Hypoxia R09.02 ; Port catheter in place Z95.828 ; Anemia due to acute blood loss D62 ; Chronic kidney disease, unspecified CKD stage N18.9 and Severe sleep apnea G47.30 [place] [address] [place] [id number] [place] [address] 90484- 2865 Dec, Type 2 diabetes mellitus with hyperglycemia E11.65 [place] [address] 6[address]67- 1407 Dec, [facility] [address] 78323- 9899 Dec, Type 2 diabetes mellitus with hyperglycemia E11.65 [facility] [address] [place] [address] Dec, Left leg pain M79.605 [facility] [id number] [place] [address] 273162- 1669 Nov, Slow transit constipation K59.01 [facility] [address] [address] Nov, [facility] [address] [place] [id number] Nov, Anemia due to acute blood loss D62 [facility] [id number] [place] [address] 78656- 2341 Nov, [facility] [id number] [place] [address] 00523- 8299 Nov, Bladder spasms N32.89 [facility] [id number] [place] [address] 90371- 2386 Nov, Pain R52 [facility] [address] [place] [id number] Nov, Anemia due to acute blood loss D62 [facility] [id number] [place] [address] 01120- 1402 Nov, Pain in right hip M25.551 and Pain in left hip M25.552 [facility] [address], [place] [address] 5[address] Nov, [facility] [address] [place] [address] 6288 Nov, [facility] [address] [place] [address] 31698- 7976 Nov, [facility] [id number] [place] [address] 052876- 5821 Nov, [facility] [address] [address] Oct, [facility] [id number] [place] [address] 86527- 3821 Oct, [facility] [address] [place] [id number] Oct, Encounter for examination for admission to skilled nursing Z02.2 ; Chronic kidney disease, unspecified CKD stage N18.9 ; Type 2 diabetes mellitus with unspecified complications E11.8 ; long term 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.4 ; Essential hypertension I10 ; Hypoxia R09.02 ; Severe sleep apnea G47.30 ; Stenosis of carotid artery, unspecified laterality I65.29 ; Generalized osteoarthritis M15.9 ; Coronary artery disease involving [place] coronary artery of [place] heart, angina presence unspecified I25.10 ; Port catheter in place Z95.828 and Hemorrhoids, unspecified hemorrhoid type K64.9 [place] [address] 14737- 2195 Oct, [place] [address] 91617- 2584 Oct, [place] [address] 06694- 5249 Oct, [facility] [address] 51065- 8625 Oct, [facility] [id number] [place] [address] 60970 -2513 September, BMI 50.0-59.9, adult Z68.43 [place] [address] [place] [address] [id number] [place] [address] 88826- 4225 September, [facility] [id number] [place] [address] 67632- 4380 September, [place] [address] 48937- 8010 Aug, Type 2 diabetes mellitus with foot ulcer E11.621 ; Transient cerebral ischemia, unspecified type G45.9 ; Essential hypertension I10 ; Mixed hyperlipidemia E78.2 and BMI 50.0-59.9, adult Z68.43 [facility] [address] 61120- 3083 Aug, [facility] [address] [id number] [place] [address] 44424- 2057 14 Jul, 2017 Anxiety about health F41.8 and Mixed hyperlipidemia E78.2 [facility] [address] [address] 8[address] 13 Jul, 2017 [facility] [address] [place] [address] [id number] [place] [address] 72477- 9655 Jun, [facility] [address] [id number] [place] [address] 88219- 7212 Jun, Type 2 diabetes mellitus with hyperglycemia E11.65 ; Type 2 diabetes mellitus with foot ulcer E11.621 ; Port catheter in place Z95.828 ; 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 ; Contact with and (suspected) exposure to potentially hazardous body fluids Z77.21 and BMI 50.0-59.9, adult Z68.43 [facility] [address] [place] [address] [id number] [place] [address] 72089- 8951 May, [facility] [facility] [address] [id number] [place] [address] 33953- 4618 May, Open wound of right great toe, subsequent encounter S91.101D [facility] [address] [place] [address] [id number] [place] [address] 09679- 7772 May, [facility] [address] [place] [address] [id number] [place] [address] 35024- 0429 Apr, [facility] [address] [address] [id number] [place] [address] 11206- 7438 Apr, [facility] [address] [place] [address] [id number] [place] [address] 05258- 7852 Apr, [facility] [address] [place] [address] [id number] [place] [address] 31898- 2541 Apr, Type 2 diabetes mellitus with diabetic polyneuropathy E11.42 [place] [address] [address] [address]- 9963 Apr, Open wound of right great toe, subsequent encounter S91.101D [place] [address] 37452- 9245 08 Apr, 2017 Open wound of right great toe, subsequent encounter S91.101D ; Breast pain, left N64.4 ; Breast cancer screening Z12.31 ; Type 2 diabetes mellitus with foot ulcer E11.621 ; Essential hypertension I10 and BMI 50.0-59.9, adult Z68.43 [place] [address] 13368- 6728 Mar, Encounter for immunization Z23 [place] [address] 90260- 9205 Mar, [place] [address] 64860- 4672 Mar, [place] [address] 58203- 1813 Mar, Type 2 diabetes mellitus with diabetic polyneuropathy E11.42 ; Type 2 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 ; Type 2 diabetes mellitus with foot ulcer E11.621 ; Essential hypertension I10 ; Hypoxemia R09.02 and Generalized osteoarthritis M15.9 [place] [address] [place] [address] [id number] [place] [address] 82412- 2112 Mar, Chronic kidney disease, stage 3 (moderate) N18.3 ; Acute cystitis without hematuria N30.00 ; Essential hypertension I10 ; Muscle spasms of neck M62.838 ; Type 2 diabetes mellitus with diabetic polyneuropathy E11.42 and BMI 50.0-59.9, adult Z68.43 [place] [address] 94204- 2657 Feb, [facility] [id number] [place] [address] 29711 -0248 Feb, [facility] [address] 18643- 2075 Feb, [facility] [address], [place] [address] 4479 Feb, [facility] [id number] [place] [address] 342303- 2667 Feb, [facility] [id number] [place] [address] 92665- 1630 Feb, [facility] [id number] [place] [address] 095423- 6277 Feb, Mixed hyperlipidemia E78.2 [facility] [id number] [place] [address] 74924- 4585 Feb, [facility] [id number] [place] [address] 72519- 0842 Jan, [facility] [id number] [place] [address] 80115- 8275 Jan, Generalized osteoarthritis M15.9 [facility] [id number] [place] [address] 80575- 9366 Oct, [facility] [id number] [place] [address] 80160- 1174 Jul, [facility] [address], [place] [address]- 1587 Jul, [facility] [address] [place] [address] 20480- 4540 Jul, Type 2 diabetes mellitus with hyperglycemia E11.65 ; Chronic kidney disease, stage 3 (moderate) N18.3 ; Type 2 diabetes mellitus with foot ulcer E11.621 ; Type 2 diabetes mellitus with diabetic polyneuropathy E11.42 ; Generalized osteoarthritis M15.9 ; Trochanteric bursitis of left hip M70.62 and Tinea pedis of both feet B35.3 [facility] [address], [place] [address]- 4337 13 Jun, 2016 [facility] [id number] [place] [address] 82457- 4727 Apr, [facility] [address] [place] [id number] [place] [address] 43830- 2631 Apr, [facility] [address] [place] [id number] [place] [address] 69508- 6591 Mar, [facility] [address] 11197- 6455 Feb, Encounter for immunization Z23 [place] [address] 25797- 8632 18 Feb, 2016 [place] [address] 60060- 6624 14 Feb, 2016 Type 2 diabetes mellitus with hyperglycemia E11.65 ; Encounter for immunization Z23 ; Diarrhea, unspecified type R19.7 ; Essential hypertension I10 ; Mixed hyperlipidemia E78.2 ; Hypoxia R09.02 ; 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 and Type 2 diabetes mellitus with foot ulcer E11.621 [place] [address] [place] [address] [id number] [place] [address] 18742- 0556 Jan, [place] [address] [place] [address] [id number] [place] [address] 50164- 3957 Jan, Type 2 diabetes mellitus with hyperglycemia E11.65 and Pneumonia due to infectious organism, unspecified laterality, unspecified part of lung J18.9 [place] [address] [place] [address] [id number] [place] [address] 98324- 6513 Jan, [place] [address] [place] [address] [id number] [place] [address] 32164- 9075 Jan, [place] [address] [place] [address] [id number] [place] [address] 07412- 7145 Oct, Type 2 diabetes mellitus with hyperglycemia E11.65 ; Generalized osteoarthritis M15.9 and Chronic prescription opiate use Z79.891 [place] [address] 29605- 2268 September, [facility] [address], [place] [address]- 4528 Aug, [facility] [address] [place] [id number] [place] [address] 98705- 4048 Aug, [facility] [address] [place] [id number] [place] [address] 66298- 7425 Aug, [facility] [address] [place] [id number] [place] [address] 48398- 1730 Aug, [facility] [address] [place] [id number] [place] [address] 92824- 1108 Jun, [facility] [address] [place] [id number] [place] [address] 03884- 9409 Jun, Type 2 diabetes mellitus with hyperglycemia E11.65 ; Mixed hyperlipidemia E78.2 ; Vaginal itching L29.8 ; Neck muscle spasm M62.838 and Skin abrasion T14.8 [facility] [address] [place] [id number] [place] [address] 44211- 2680 Apr, [facility] [address] [place] [id number] [place] [address] 21333- 2295 Apr, [facility] [address] [id number] [place] [address] 96060- 9226 Mar, [facility] [address] [place] [address] 85211- 3863 Feb, [facility] [address] [place] [id number] [place] [address] 35802- 9163 Feb, Type 2 diabetes mellitus with hyperglycemia E11.65 ; Type 2 diabetes mellitus with foot ulcer E11.621 ; Type 2 diabetes mellitus with diabetic polyneuropathy E11.42 and Encounter for immunization Z23 [facility] [address], [place] [address]- 5522 Jan, Hypertension 401.9 ; Uncontrolled type 2 diabetes mellitus 250.02 ; Right shoulder pain 719.41 and Ulcer of heel and midfoot 707.14 [facility] [address], [place] [address]- 3399 Dec, Diabetes with other specified manifestations, type II or unspecified type, not stated as uncontrolled 250.80 ; Ulcer of heel and midfoot 707.14 ; Hypertension 401.9 ; Hip pain, left 719.45 and Acute anxiety 300.00 [facility] [id number] [place] [address] 81093- 1365 Nov, [facility] [id number] [place] [address] 40249- 3929 Nov, [facility] [id number] [place] [address] 38778- 5913 September, Anxiety attack 300.01 and Cellulitis 682.9 [facility] [id number] [place] [address] 68353- 2833 September, [facility] [id number] [place] [address] 37216- 6486 September, [facility] [id number] [place] [address] 43690- 3525 September, [facility] [id number] [place] [address] 86075- 5621 Aug, [facility] [address], [place] [address]- 2640 Aug, [facility] [address] [place] [address] 64308- 0803 Jul, [facility] [address], [place] [address]- 6649 Jul, [facility] [id number] [place] [address] 98760989- 7218 Jul, [facility] [address], [place] [address]- 8924 May, [facility] [id number] [place] [address] 59528- 3464 May, [facility] [place] [facility] [address] [id number] [place] [address]- 6635 Mar, [facility] [place] [facility] [address] [id number] [place] [address]- 8656 Mar, [facility] [place] [facility] [address] [id number] [place] [address]- 5388 Mar, [facility] [place] [facility] [address] [id number] [place] [address]- 0929 Mar, [facility] [place] [facility] [address] [id number] [place] [address]- 5122 Mar, [facility] [place] [facility] [address] [id number] [place] [address]- 4541 Mar, [facility] [place] [facility] [address] [id number] [place] [address]- 7781 Mar, [facility] [place] [facility] [address] [id number] [place] [address]- 7859 14 Feb, 2014 [facility] [place] [facility] [address] [id number] [place] [address]- 4008 14 Feb, 2014 [facility] [place] [facility] [address] [id number] [place] [address]- 6877 30 Jan, 2014 [facility] [place] [facility] [address] [id number], [place] [address]- 4934 30 Jan, 2014 [facility] [place] [facility] [address] [id number], [place] [address]- 6145 26 Jan, 2014 [facility] [place] [facility] [address] [id number] [place] [address]- 8309 26 Jan, 2014 [facility] [place] [facility] [address] [id number] [place] [address]- 2254 25 Jan, 2014 [facility] [place] [facility] [address] [id number] [place] [address]- 2368 25 Jan, 2014 [facility] [place] [facility] [address] [id number] [place] [address]- 1147 25 Sep, 2013 [facility] [place] [facility] [address] [id number] [place] [address] 2549 25 Sep, 2013 [facility] [place] [facility] [address] [id number] [place] [address]- 2546 18 Sep, 2013 [facility] [place] [facility] [address] [id number] [place] [address]- 2959 18 Sep, 2013 [facility] [place] [facility] [address] [id number] [place] [address]- 5219 06 Sep, 2013 [facility] [place] [facility] [address] [id number] [place] [address]- 1540 06 Sep, 2013 [facility] [place] [facility] [address] [id number] [place] [address]- 9703 05 Sep, 2013 [facility] [place] [facility] [address] [id number] [place] [address]- 4239 05 Sep, 2013 [facility] [place] [facility] [address] [id number] [place] [address]- 1807 05 Sep, 2013 [facility] [place] [facility] [address] [id number] [place] [address]- 2540 05 Sep, 2013 [facility] [place] [facility] [address] [id number] [place] [address]- 2547 05 Sep, 2013 [facility] [place] [facility] [address] [id number] [place] [address]- 2548 05 Jan, 2013 [facility] [place] [facility] [address] [id number] [place] [address]- 7390 Dec, 2013 [facility] [place] [facility] [address] [id number] [place] [address]- 8521 Dec, 2013 [facility] [place] [facility] [address] [id number] [place] [address]- 4881 Dec, 2013 [facility] [place] [facility] [address] [id number] [place] [address]- 2458 Dec, [facility] [place] [facility] [address] [id number] [place] [address]- 5795 Dec, [facility] [place] [facility] [address] [id number] [place] [address]- 9033 Dec, [facility] [place] [facility] [address] [id number] [place] [address]- 0432 Dec, [facility] [place] [facility] [address] [id number] [place] [address]- 5553 Dec, [facility] [place] [facility] [address] [id number] [place] [address]- 8966 Dec, [facility] [place] [facility] [address] [id number] [place] [address]- 7463 Dec, [facility] [place] [facility] [address] [id number] [place] [address]- 6591 Nov, [facility] [place] [facility] [address] [id number] [place] [address]- 1676 Nov, [facility] [place] [facility] [address] [id number] [place] [address]- 6648 Nov, [facility] [place] [facility] [address] [id number] [place] [address]- 7381 Nov, [facility] [place] [facility] [address] [id number] [place] [address]- 9660 Nov, [facility] [place] [facility] [address] [id number] [place] [address]- 8025 Nov, [facility] [place] [facility] [address] [id number] [place] [address]- 5375 Oct, [facility] [place] [facility] [address] [id number] [place] [address]- 9308 Oct, [facility] [place] [facility] [address] [id number] [place] [address]- 8823 Oct, [facility] [place] [facility] [address] [id number] [place] [address]- 6557 Oct, [facility] [place] [facility] [address] [id number] [place] [address]- 1857 Oct, [facility] [place] [facility] [address] [id number] [place] [address]- 0430 Oct, [facility] [place] [facility] [address] [id number] [place] [address]- 6466 Oct, [facility] [place] [facility] [address] [id number] [place] [address]- 6082 Oct, [facility] [place] [facility] [address] [id number] [place] [address]- 8085 Oct, [facility] [place] [facility] [address] [id number] [place] [address]- 4619 Oct, [facility] [place] [facility] [address] [id number] [place] [address]- 1605 Oct, [facility] [place] [facility] [address] [id number] [place] [address]- 3778 Oct, [facility] [place] [facility] [address] [id number] [place] [address] September, [facility] [place] [facility] [address] [id number] [place] [address] September, [facility] [place] [facility] [address] [id number] [place] [address] September, [facility] [place] [facility] [address] [id number] [place] [address] Aug, [facility] [place] [facility] [address] [id number] [place] [address] Aug, [facility] [place] [facility] [address] [id number] [place] [address] Jul, [facility] [place] [facility] [address] [id number] [place] [address] Jul, [facility] [place] [facility] [address] [id number] [place] [address] 10 Jul, 2013 [facility] [place] [facility] [address] [id number] [place] [address] Jul, [facility] [place] [facility] [address] [id number] [place] [address] Jul, [facility] [place] [facility] [address] [id number] [place] [address] Jul, [facility] [place] [facility] [address] [id number] [place] [address] Jul, [facility] [place] [facility] [address] [id number] [place] [address] Jul, [facility] [place] [facility] [address] [id number] [place] [address] Jul, [facility] [place] [facility] [address] [id number] [place] [address] Jul, [facility] [place] [facility] [address] [id number] [place] [address] Jun, [facility] [place] [facility] [address] [id number] [place] [address] Jun, [facility] [place] [facility] [address] [id number] [place] [address] Jun, [facility] [place] [facility] [address] [id number] [place] [address] Jun, [facility] [place] [facility] [address] [id number] [place] [address] May, [facility] [place] [facility] [address] [id number] [place] [address] May, [facility] [place] [facility] [address] [id number] [place] [address] Apr, [facility] [place] [facility] [address] [id number], [place] [address] Apr, [facility] [place] [facility] [address] [id number] [place] [address] Apr, [facility] [place] [facility] [address] [id number] [place] [address] Apr, [facility] [place] [facility] [address] [facility] [id number] [place] [address] Apr, [facility] [place] [facility] [address] [id number], [place] [address] Apr, [facility] [place] [facility] [address] [id number] [place] [address] Apr, [facility] [place] [facility] [address] [address] [id number] [place] [address] Apr, [facility] [place] [facility] [address] [id number] [address] [address] Mar, [facility] [place] [facility] [address] [id number], [place] [address] Mar, [facility] [place] [facility] [address] [id number], [place] [address] Mar, [facility] [place] [facility] [address] [id number], [place] [address] Mar, [facility] [place] [facility] [address] [id number], [place] [address] Mar, [facility] [place] [facility] [address] [id number], [place] [address] Mar, [facility] [place] [facility] [address] [id number], [place] [address] Feb, [facility] [place] [facility] [address] [id number], [place] [address] Feb, [facility] [place] [facility] [address] [facility] [id number], [place] [address] Feb, [facility] [place] [facility] [address] [id number] [place] [address] 8105 18 Feb, 2013 [facility] [address] [id number] [place] [address] 4742 14 Feb, 2013 [facility] [place] [facility] [address] [id number] [place] [address] 8348 14 Feb, 2013 [facility] [address] [id number] [place] [address]- 2706 04 Feb, 2013 [facility] [address] [id number] [place] [address]258 27 Jan, 2013 [facility] [address] [id number] [place] [address] 9940 26 Jan, 2013 [facility] [address] [id number] [place] [address]- 4608 19 Jan, 2013 [facility] [address] [id number] [place] [address]- 6076 05 Jan, 2013 [facility] [address] [id number] [place] [address]- 0615 Dec, [facility] [address] [id number] [place] [address] Dec, [facility] [address] [id number] [place] [address]257 Dec, [facility] [place] [facility] [address] [id number] [place] [address]- 2048 Nov, [facility] [address] [id number] [place] [address]554 Nov, [facility] [place] [facility] [address] [id number] [place] [address]- 7453 Nov, [facility] [place] [facility] [address] [id number] [place] [address]- 7472 Nov, [facility] [place] [facility] [address] [id number] [place] [address]- 5918 Nov, [facility] [address] [id number] [place] [address]- 8315 Nov, [facility] [place] [facility] [address] [id number] [place] [address]- 3072 Oct, [facility] [place] [facility] [address] [id number] [place] [address] 8057 Oct, [facility] [place] [facility] [address] [id number] [place] [address]- 5189 Oct, [facility] [address] [id number] [place] [address]- 7989 Oct, [facility] [place] [facility] [address] [id number] [place] [address]- 1031 Oct, [facility] [place] [facility] [address] [id number] [place] [address]- 9562 Oct, [facility] [place] [facility] [address] [id number] [place] [address]- 7069 September, [facility] [place] [facility] [address] [id number] [place] [address]- 4780 September, [facility] [place] [facility] [address] [id number] [place] [address]- 0959 September, [facility] [place] [facility] [address] [id number] [place] [address]- 6906 September, [facility] [place] [facility] [address] [id number] [place] [address]- 0769 Aug, [facility] [place] [facility] [address] [id number] [place] [address]- 8486 Aug, [facility] [place] [facility] [address] [id number] [place] [address]- 6956 Jul, [facility] [place] [facility] [address] [id number] [place] [address]- 5566 Jul, [facility] [place] [facility] [address] [id number], [place] [address] 36[address] 18 Jul, 2012 [facility] [address] [id number] [place] [address]- 8646 15 Jul, 2012 [facility] [address] [id number] [place] [address]- 4466 13 Jul, 2012 [facility] [address] [id number] [place] [address]- 5186 08 Jul, 2012 [facility] [address] [id number] [place] [address]- 0986 20 Jun, 2012 [facility] [address] [id number] [place] [address]- 1936 13 Jun, 2012 [facility] [address] [id number] [place] [address]- 8336 17 May, 2012 [facility] [address] [id number] [place] [address]- 2428 04 May, 2012 [facility] [address] [id number] [place] [address]- 4358 18 Apr, 2012 [facility] [address] [id number] [place] [address]- 6506 18 Apr, 2012 [facility] [address] [id number] [place] [address]- 3143 Apr, [facility] [address] [id number] [place] [address]- 9354 13 Apr, 2012 [facility] [address] [id number] [place] [address]- 2549 10 Apr, 2012 [facility] [address] [id number] [place] [address]- 2694 10 Apr, 2012 [facility] [address] [id number] [place] [address] 07 Apr, 2012 [facility] [address] [id number] [place] [address]- 1569 07 Apr, 2012 [facility] [place] [facility] [address] [id number] [place] [address]- 3662 Apr, [facility] [place] [facility] [address] [id number] [place] [address]- 3756 Apr, [facility] [place] [facility] [address] [id number] [place] [address]- 5176 Apr, [facility] [place] [facility] [address] [id number] [place] [address]- 7436 Apr, [facility] [place] [facility] [address] [id number] [place] [address]- 9308 Apr, [facility] [place] [facility] [address] [id number] [place] [address]- 0335 Apr, [facility] [place] [facility] [address] [id number] [place] [address]- 9590 Apr, [facility] [place] [facility] [address] [id number] [place] [address]- 3246 Apr, [facility] [place] [facility] [address] [id number] [place] [address]- 0940 Mar, [facility] [place] [facility] [address] [id number] [place] [address]- 5108 Mar, [facility] [place] [facility] [address] [id number] [place] [address]- 3271 Mar, [facility] [place] [facility] [address] [id number] [place] [address]- 0353 Mar, [facility] [place] [facility] [address] [id number] [place] [address]- 9537 Mar, [facility] [place] [facility] [address] [id number] [place] [address]- 9826 Mar, [facility] [place] [facility] [address] [id number] [place] [address] 05 Mar, 2012 [facility] [place] [facility] [address] [id number] [place] [address]- 7565 Mar, [facility] [place] [facility] [address] [id number] [place] [address]- 2546 Mar, [facility] [place] [facility] [address] [id number] [place] [address]- 2546 Mar, [facility] [place] [facility] [address] [id number] [place] [address]- 2546 Feb, [facility] [place] [facility] [address] [id number] [place] [address]- 2546 Feb, [facility] [place] [facility] [address] [id number] [place] [address]- 2546 Feb, [facility] [place] [facility] [address] [id number] [place] [address]- 2546 Feb, [facility] [place] [facility] [address] [id number] [place] [address]- 2546 Feb, [facility] [place] [facility] [address] [id number] [place] [address]- 2548 Feb, [facility] [place] [facility] [address] [id number] [place] [address]- 6087 Jan, [facility] [place] [facility] [address] [id number] [place] [address]- 7866 Dec, [facility] [place] [facility] [address] [id number] [place] [address]- 6316 Dec, [facility] [place] [facility] [address] [id number], [place] [address]- 2546 Dec, [facility] [place] [facility] [address] [id number] [place] [address]- 2546 Dec, [facility] [place] [facility] [address] [id number] [place] [address]- 2546 Nov, [facility] [place] [facility] [address] [id number] [place] [address]- 2546 Nov, [facility] [place] [facility] [address] [id number] [place] [address]- 1171 Nov, [facility] [address] [id number] [place] [address]- 7681 Nov, [facility] [place] [facility] [address] [id number] [place] [address]- 1841 Oct, [facility] [address] [id number] [place] [address]- 3674 Oct, [facility] [place] [facility] [address] [id number] [place] [address]- 2512 Oct, [facility] [address] [id number] [place] [address]- 5016 Oct, [facility] [address] [id number] [place] [address]- 2297 Oct, [facility] [address] [id number] [place] [address]- 8822 September, [facility] [address] [id number] [place] [address]- 3667 September, [facility] [place] [facility] [address] [id number] [place] [address]- 2415 September, [facility] [address] [id number] [place] [address]- 4339 September, [facility] [place] [facility] [address] [id number] [place] [address]- 4181 September, [facility] [place] [facility] [address] [id number] [place] [address]- 7771 September, [facility] [place] [facility] [address] [id number] [place] [address]- 4563 September, [facility] [place] [facility] [address] [id number] [place] [address]- 8766 September, [facility] [place] [facility] [address] [id number] [place] [address]- 5649 Aug, [facility] [place] [facility] [address] [id number] [place] [address]- 4227 25 Aug, 2011 [facility] [address] [id number] [place] [address]- 6124 Aug, [facility] [address] [id number] [place] [address]- 2439 Aug, [facility] [address] [id number] [place] [address]- 9458 18 Aug, 2011 [facility] [address] [id number] [place] [address]- 3343 17 Aug, 2011 [facility] [address] [id number] [place] [address]- 0048 13 Aug, 2011 [facility] [address] [id number] [place] [address]- 8410 Aug, [facility] [address] [id number] [place] [address]- 3093 Aug, [facility] [address] [id number] [place] [address]- 2443 Aug, [facility] [address] [id number] [place] [address]- 8676 Aug, [facility] [address] [id number] [place] [address]- 7724 Aug, [facility] [address] [id number] [place] [address]- 8545 29 Jul, 2011 [facility] [place] [facility] [address] [id number] [place] [address]- 1718 28 Jul, 2011 [facility] [place] [facility] [address] [id number] [place] [address]- 7379 27 Jul, 2011 [facility] [place] [facility] [address] [id number] [place] [address]- 4829 23 Jul, 2011 [facility] [place] [facility] [address] [id number] [place] [address]- 7500 Jul, [facility] [address] [id number] [place] [address]- 9326 Jul, [facility] [place] [facility] [address] [id number] [place] [address]- 8986 14 Jul, 2011 [facility] [place] [facility] [address] [id number] [place] [address]- 5426 Jul, [facility] [place] [facility] [address] [id number] [place] [address]- 5989 07 Jul, 2011 [facility] [place] [facility] [address] [id number] [place] [address]- 7205 24 Jun, 2011 [facility] [place] [facility] [address] [id number] [place] [address]- 8313 Jun, [facility] [address] [id number] [place] [address]- 4336 23 Jun, 2011 [facility] [place] [facility] [address] [id number] [place] [address]- 7071 14 Jun, 2011 [facility] [place] [facility] [address] [id number] [place] [address]- 9437 02 Jun, 2011 [facility] [place] [facility] [address] [facility] [id number] [place] [address]- 5463 Jun, [facility] [place] [facility] [address] [facility] [id number] [place] [address]- 5305 Jun, [facility] [place] [facility] [address] [id number] [place] [address]- 7090 May, [facility] [place] [facility] [address] [id number] [place] [address]- 6124 May, [facility] [place] [facility] [address] [id number] [place] [address]- 9966 May, [facility] [place] [facility] [address] [id number], [place] [address]- 5540 May, [facility] [place] [facility] [address] [id number] [place] [address]- 5278 May, [facility] [address] [id number] [place] [address]- 7247 May, [facility] [address] [id number] [place] [address]- 7926 May, [facility] [address] [id number] [place] [address]- 4348 Apr, [facility] [address] [id number] [place] [address]- 0748 Apr, [facility] [address] [id number] [place] [address]- 0078 Apr, [facility] [address] [id number] [place] [address]- 5647 Apr, [facility] [address] [id number] [place] [address]- 2168 Apr, [facility] [address] [id number] [place] [address]- 9897 Apr, [facility] [address] [id number] [place] [address]- 1981 Apr, [facility] [address] [id number] [place] [address]- 7686 Apr, [facility] [address] [id number] [place] [address]- 8996 Apr, [facility] [place] [facility] [address] [id number] [place] [address]- 0229 Mar, [facility] [place] [facility] [address] [id number] [place] [address]- 9776 Mar, [facility] [place] [facility] [address] [id number] [place] [address]- 2336 Mar, [facility] [address] [id number] [place] [address]- 1214 Mar, [facility] [place] [facility] [address] [id number] [place] [address]- 0854 Mar, [facility] [place] [facility] [address] [id number] [place] [address]- 6266 Feb, [facility] [place] [facility] [address] [id number] [place] [address]- 0256 Feb, [facility] [place] [facility] [address] [id number] [place] [address]- 9806 Feb, [facility] [place] [facility] [address] [id number] [place] [address]- 4585 Dec, [facility] [place] [facility] [address] [id number] [place] [address]- 7775 Nov, [facility] [place] [facility] [address] [id number] [place] [address]- 7739 Apr, [facility] [place] [facility] [address] [id number] [place] [address]- 3706 Apr, [facility] [place] [facility] [address] [id number] [place] [address]- 3387 16 Apr, 2010 [facility] [place] [facility] [address] [id number] [place] [address]- 7171 Apr, [facility] [place] [facility] [address] [id number] [place] [address]- 6788 Apr, [facility] [place] [facility] [address] [id number] [place] [address]- 2764 Apr, [facility] [place] [facility] [address] [id number] [place] [address] 2548 Apr, [facility] [place] [facility] [address] [id number] [place] [address]- 0343 Apr, [facility] [place] [facility] [address] [id number] [place] [address]- 5584 Mar, [facility] [place] [facility] [address] [id number], [place] [address] 3280 Mar, [facility] [id number], [place] [address]- 2618 Mar, [facility] [id number], [place] [address]- 7601 Mar, [facility] [id number], [place] [address]- 4947 Mar, [facility] [id number], [place] [address]- 7987 Mar, [facility] [id number] [place] [address]- 6192 Mar, [facility] [id number], [place] [address]- 1166 Mar, [facility] [id number], [place] [address]- 6730 Mar, [facility] [id number], [place] [address]- 7930 Mar, IMMUNIZATIONS No Known Immunizations SOCIAL HISTORY Never Assessed REASON FOR VISIT Waiting for call back PLAN OF CARE VITAL SIGNS MEDICATIONS Unknown [...]
--- OUTSIDE RECORDS SUMMARY | 2018-04-22 23:11 | XMS REPORT ---
Author Author CARLOS LARA [facility] Address [address] [place] [address] Care Team Providers Care Lactation Consultant Name Role Phone CARLOS LARA Unavailable PROBLEMS Type Condition ICD9-CM Code NGY44-UA Code Onset Dates Condition Status SNOMED Code Problem Mixed hyperlipidemia E78.2 Active 908945342 Problem Severe sleep apnea G47.30 Active 06203008 Problem Iron deficiency anemia, unspecified iron deficiency anemia type D50.9 Active 82496558 Problem Decreased diffusion capacity R94.2 Active 50163799 Problem Stenosis of carotid artery, unspecified laterality I65.29 Active 03711855 Problem Coronary artery disease involving squaxin coronary artery of squaxin heart, angina presence unspecified I25.10 Active [id number] Problem Generalized osteoarthritis M15.9 Active 384442544 Problem Aortic valve sclerosis I35.8 Active 55752412 Problem Port catheter in place Z95.828 Active 804365001 Problem Essential hypertension I10 Active 09860527 Problem Transient cerebral ischemia, unspecified type G45.9 Active 894818100 Problem Renal osteodystrophy N25.0 Active 91378442 Problem Anxiety about health F41.8 Active 836595439 Problem Chronic kidney disease, unspecified CKD stage N18.9 Active 320450326 Problem Type 2 diabetes mellitus with unspecified complications E11.8 Active 07917589 Problem Other chronic pain G89.29 Active 49486029 Problem Chronic kidney disease (CKD), stage 4 (severe) N18.4 Active 600001292 Problem Type 2 diabetes mellitus with hyperglycemia E11.65 Active 04568424 Problem Type 2 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 Active 74413292 Problem 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 Active 2168766 Problem Pain R52 Active 39782118 Problem prison 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.4 Active 910641600 Problem Slow transit constipation K59.01 Active 10984443 Problem Bladder spasms N32.89 Active 621599076 Problem Anemia in other chronic diseases classified elsewhere D63.8 Active 545825879 Problem Chronic kidney disease, stage 3 (moderate) N18.3 Active 639543591 Problem Type 2 diabetes mellitus with foot ulcer E11.621 Active 203338229 Problem Type 2 diabetes mellitus with diabetic polyneuropathy E11.42 Active 610514108 Problem Hypoxemia R09.02 Active 650890236 Problem BMI 50.0-59.9, adult Z68.43 Active 020601838 Problem Diarrhea, unspecified type R19.7 Active 41214816 Problem Trochanteric bursitis of left hip M70.62 Active [id number] ALLERGIES No Information ENCOUNTERS Encounter Location Date Diagnosis [facility] [address] [place] [id number] Dec, Low back pain M54.5 ; Other chronic pain G89.29 and Chronic kidney disease (CKD), stage 4 (severe) N18.[address] [address]- [address] Dec, Type 2 diabetes mellitus with hyperglycemia E11.65 [place] [place] [address] [address]392- 5599 Dec, [facility] [address] [place] [id number] Dec, Type 2 diabetes mellitus with hyperglycemia E11.65 ; Essential hypertension I10 ; Generalized osteoarthritis M15.9 ; Mixed hyperlipidemia E78.2 ; Hypoxia R09.02 ; Port catheter in place Z95.828 ; Anemia due to acute blood loss D62 ; Chronic kidney disease, unspecified CKD stage N18.9 and Severe sleep apnea G47.30 [place] [address] [address] [place] [id number] [place] [address] 19345- 2774 Dec, Type 2 diabetes mellitus with hyperglycemia E11.65 [place] [place] [address] 50984- 1443 Dec, [place] [place] [address] 37641- 2240 Dec, Type 2 diabetes mellitus with hyperglycemia E11.65 [place] [place] [address] [place] [address] Dec, Left leg pain M79.605 [facility] [id number] [place] [address] 161358- 6476 Nov, Slow transit constipation K59.01 [facility] [address] [address] Nov, [facility] [address] [id number] Nov, Anemia due to acute blood loss D62 [facility] [id number] [place] [address] 05509- 4125 Nov, [facility] [id number] [place] [address] 30875- 6935 Nov, Bladder spasms N32.89 [facility] [id number] [place] [address] 89588- 1876 Nov, Pain R52 [facility] [address] [id number] Nov, Anemia due to acute blood loss D62 [facility] [id number] [place] [address] 84578- 6667 Nov, Pain in right hip M25.551 and Pain in left hip M25.552 [facility] [address], [place] [address] 8686 Nov, [facility] [address] [address] 2136 Nov, [facility] [id number] [place] [address] 98313- 5145 Nov, [facility] [id number] [place] [address] 227609- 7531 Nov, [facility] [address] [address] 8866 Oct, [facility] [id number] [place] [address] 48524- 6885 Oct, [facility] [address] [id number] Oct, Encounter for [facility] Z02.2 ; Chronic kidney disease, unspecified CKD stage N18.9 ; Type 2 diabetes mellitus with unspecified complications E11.8 ; [employer] 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.4 ; Essential hypertension I10 ; Hypoxia R09.02 ; Severe sleep apnea G47.30 ; Stenosis of carotid artery, unspecified laterality I65.29 ; Generalized osteoarthritis M15.9 ; Coronary artery disease involving squaxin coronary artery of squaxin heart, angina presence unspecified I25.10 ; Port catheter in place Z95.828 and Hemorrhoids, unspecified hemorrhoid type K64.9 [place] [address] 23279- 9204 Oct, [place] [address] 03614- 2369 Oct, [place] [address] 59347- 6629 Oct, [facility] [address] 84644- 7897 Oct, [facility] [id number] [place] [address] 04314 -0971 September, BMI 50.0-59.9, adult Z68.43 [place] [place] [id number] [place] [address] 88758- 6737 September, [facility] [id number] [place] [address] 92912- 4463 September, [place] [address] 19875- 2062 Aug, Type 2 diabetes mellitus with foot ulcer E11.621 ; Transient cerebral ischemia, unspecified type G45.9 ; Essential hypertension I10 ; Mixed hyperlipidemia E78.2 and BMI 50.0-59.9, adult Z68.43 [facility] [address] 25468- 1662 Aug, [place] [place] [id number] [place] [address] 19421- 4989 14 Jul, 2017 Anxiety about health F41.8 and Mixed hyperlipidemia E78.2 [facility] [id number] [address]- 1210 13 Jul, 2017 [place] [place] [id number] [place] [address] 78838- 8773 Jun, [place] [place] [id number] [place] [address] 13313- 1649 Jun, Type 2 diabetes mellitus with hyperglycemia E11.65 ; Type 2 diabetes mellitus with foot ulcer E11.621 ; Port catheter in place Z95.828 ; 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 ; Contact with and (suspected) exposure to potentially hazardous body fluids Z77.21 and BMI 50.0-59.9, adult Z68.43 [place] [place] [id number] [place] [address] 66446- 5163 May, [place] [place] [id number] [place] [address] 47498- 2409 May, Open wound of right great toe, subsequent encounter S91.101D [facility] [place] [id number] [place] [address] 69689- 9862 May, [place] [place] [id number] [place] [address] 89342- 1433 Apr, [place] [place] [id number] [place] [address] 51230- 6914 Apr, [place] [place] [address] [id number] [place] [address] 47565- 0974 Apr, [place] [place] [id number] [place] [address] 27183- 3356 Apr, Type 2 diabetes mellitus with diabetic polyneuropathy E11.42 [place] [address] [address] 77906- 9271 Apr, Open wound of right great toe, subsequent encounter S91.101D [place] [address] 53911- 9331 08 Apr, 2017 Open wound of right great toe, subsequent encounter S91.101D ; Breast pain, left N64.4 ; Breast cancer screening Z12.31 ; Type 2 diabetes mellitus with foot ulcer E11.621 ; Essential hypertension I10 and BMI 50.0-59.9, adult Z68.43 [place] [address] 16543- 2068 Mar, Encounter for immunization Z23 [place] [address] 07006- 2488 Mar, [place] [address] 04841- 1780 Mar, [place] [address] 77387- 2083 Mar, Type 2 diabetes mellitus with diabetic polyneuropathy E11.42 ; Type 2 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 ; Type 2 diabetes mellitus with foot ulcer E11.621 ; Essential hypertension I10 ; Hypoxemia R09.02 and Generalized osteoarthritis M15.9 [place] [id number] [place] [address] 75210- 5852 Mar, Chronic kidney disease, stage 3 (moderate) N18.3 ; Acute cystitis without hematuria N30.00 ; Essential hypertension I10 ; Muscle spasms of neck M62.838 ; Type 2 diabetes mellitus with diabetic polyneuropathy E11.42 and BMI 50.0-59.9, adult Z68.43 [place] [address] 25043- 4416 Feb, [facility] [id number] [place] [address] 49620 -0445 Feb, [facility] [address] 02854- 7198 Feb, [facility] [address] [address]- 8990 Feb, [facility] [id number] [place] [address] 657938- 2557 Feb, [facility] [id number] [place] [address] 96308- 7775 Feb, [facility] [id number] [place] [address] 627117- 3786 Feb, Mixed hyperlipidemia E78.2 [facility] [id number] [place] [address] 47717- 4743 Feb, [facility] [id number] [place] [address] 34373- 2921 Jan, [facility] [id number] [place] [address] 04300- 3061 Jan, Generalized osteoarthritis M15.9 [facility] [id number] [place] [address] 63736- 6804 Oct, [facility] [id number] [place] [address] 61570- 8164 Jul, [facility] [address], [place] [address]- 8266 Jul, [facility] [id number] [place] [address] 35935- 2814 Jul, Type 2 diabetes mellitus with hyperglycemia E11.65 ; Chronic kidney disease, stage 3 (moderate) N18.3 ; Type 2 diabetes mellitus with foot ulcer E11.621 ; Type 2 diabetes mellitus with diabetic polyneuropathy E11.42 ; Generalized osteoarthritis M15.9 ; Trochanteric bursitis of left hip M70.62 and Tinea pedis of both feet B35.3 [facility] [address], [place] [address]- 8658 13 Jun, 2016 [facility] [id number] [place] [address] 03840- 2097 Apr, [facility] [id number] [place] [address] 51121- 5064 Apr, [facility] [id number] [place] [address] 32194- 7960 Mar, [facility] [address] 96510- 4196 Feb, Encounter for immunization Z23 [place] [address] 18394- 9251 18 Feb, 2016 [place] [address] 59905- 9260 14 Feb, 2016 Type 2 diabetes mellitus with hyperglycemia E11.65 ; Encounter for immunization Z23 ; Diarrhea, unspecified type R19.7 ; Essential hypertension I10 ; Mixed hyperlipidemia E78.2 ; Hypoxia R09.02 ; 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 and Type 2 diabetes mellitus with foot ulcer E11.621 [place] [id number] [place] [address] 72277- 6768 Jan, [place] [address] [id number] [place] [address] 49209- 0045 Jan, Type 2 diabetes mellitus with hyperglycemia E11.65 and Pneumonia due to infectious organism, unspecified laterality, unspecified part of lung J18.9 [place] [id number] [place] [address] 44079- 6531 Jan, [place] [address] [id number] [place] [address] 71505- 6704 Jan, [place] [id number] [place] [address] 13253- 2816 Oct, Type 2 diabetes mellitus with hyperglycemia E11.65 ; Generalized osteoarthritis M15.9 and Chronic prescription opiate use Z79.891 [place] [address] 86304- 1405 September, [facility] [address], [place] [address]- 9548 Aug, [facility] [id number] [place] [address] 34382- 3468 Aug, [facility] [id number] [place] [address] 60751- 3038 Aug, [facility] [id number] [place] [address] 69949- 9604 Aug, [facility] [id number] [place] [address] 95852- 9988 Jun, [facility] [address] [id number] [place] [address] 13709- 3353 Jun, Type 2 diabetes mellitus with hyperglycemia E11.65 ; Mixed hyperlipidemia E78.2 ; Vaginal itching L29.8 ; Neck muscle spasm M62.838 and Skin abrasion T14.8 [facility] [address] [id number] [place] [address] 23768- 5346 Apr, [facility] [id number] [place] [address] 72380- 3921 Apr, [facility] [id number] [place] [address] 66842- 8134 Mar, [facility] [id number] [place] [address] 93913- 4527 Feb, [facility] [id number] [place] [address] 17352- 9666 Feb, Type 2 diabetes mellitus with hyperglycemia E11.65 ; Type 2 diabetes mellitus with foot ulcer E11.621 ; Type 2 diabetes mellitus with diabetic polyneuropathy E11.42 and Encounter for immunization Z23 [facility] [address], [place] [address]- 4663 Jan, Hypertension 401.9 ; Uncontrolled type 2 diabetes mellitus 250.02 ; Right shoulder pain 719.41 and Ulcer of heel and midfoot 707.14 [facility] [address], [place] [address]- 7517 Dec, Diabetes with other specified manifestations, type II or unspecified type, not stated as uncontrolled 250.80 ; Ulcer of heel and midfoot 707.14 ; Hypertension 401.9 ; Hip pain, left 719.45 and Acute anxiety 300.00 [facility] [id number] [place] [address] 62255- 0256 Nov, [facility] [id number] [place] [address] 15620- 5327 Nov, [facility] [id number] [place] [address] 81813- 2965 September, Anxiety attack 300.01 and Cellulitis 682.9 [facility] [id number] [place] [address] 17405- 5220 September, [facility] [id number] [place] [address] 18778- 4287 September, [facility] [id number] [place] [address] 49213- 3396 September, [facility] [id number] [place] [address] 74669- 4961 Aug, [facility] [address], [place] [address]- 2554 Aug, [facility] [id number] [place] [address] 43959- 0871 Jul, [facility] [address], [place] [address]- 7925 Jul, [facility] [id number] [place] [address] 36588791- 4731 Jul, [facility] [address], [place] [address]- 6238 May, [facility] [id number] [place] [address] 36292- 9240 May, [facility] [place] [facility] [address] [id number] [place] [address]- 1813 Mar, [facility] [place] [facility] [address] [id number] [place] [address]- 4132 Mar, [facility] [place] [facility] [address] [id number] [place] [address]- 7016 Mar, [facility] [place] [facility] [address] [id number] [place] [address]- 9220 Mar, [facility] [place] [facility] [address] [id number] [place] [address]- 1097 Mar, [facility] [place] [facility] [address] [id number] [place] [address]- 9825 Mar, [facility] [place] [facility] [address] [id number] [place] [address]- 0981 Mar, [facility] [place] [facility] [address] [id number] [place] [address]- 3312 14 Feb, 2014 [facility] [place] [facility] [address] [id number] [place] [address]- 5250 14 Feb, 2014 [facility] [place] [facility] [address] [id number] [place] [address]- 6552 30 Jan, 2014 [facility] [place] [facility] [address] [id number] [address]- 3054 30 Jan, 2014 [facility] [place] [facility] [address] [id number], [place] [address]- 4964 26 Jan, 2014 [facility] [place] [facility] [address] [id number] [place] [address]- 8210 26 Jan, 2014 [facility] [place] [facility] [address] [id number] [place] [address]- 1696 25 Jan, 2014 [facility] [place] [facility] [address] [id number] [place] [address]- 1101 25 Jan, 2014 [facility] [place] [facility] [address] [id number] [place] [address]- 6024 25 Sep, 2013 [facility] [place] [facility] [address] [id number] [place] [address] 2549 25 Sep, 2013 [facility] [place] [facility] [address] [id number] [place] [address]- 2546 18 Sep, 2013 [facility] [place] [facility] [address] [id number] [place] [address]- 3320 18 Sep, 2013 [facility] [place] [facility] [address] [id number] [place] [address]- 6549 06 Sep, 2013 [facility] [place] [facility] [address] [id number] [place] [address]- 1656 06 Sep, 2013 [facility] [place] [facility] [address] [id number] [place] [address]- 3640 05 Sep, 2013 [facility] [place] [facility] [address] [id number] [place] [address]- 2734 05 Sep, 2013 [facility] [place] [facility] [address] [id number] [place] [address]- 5749 05 Sep, 2013 [facility] [place] [facility] [address] [id number] [place] [address]- 2549 05 Sep, 2013 [facility] [place] [facility] [address] [id number] [place] [address]- 2541 05 Sep, 2013 [facility] [place] [facility] [address] [id number] [place] [address]- 2548 05 Jan, 2013 [facility] [place] [facility] [address] [id number] [place] [address]- 4318 Dec, 2013 [facility] [place] [facility] [address] [id number] [place] [address]- 6112 Dec, 2013 [facility] [place] [facility] [address] [id number] [place] [address]- 7501 Dec, 2013 [facility] [place] [facility] [address] [id number] [place] [address]- 3678 Dec, [facility] [place] [facility] [address] [id number] [place] [address]- 6729 Dec, [facility] [place] [facility] [address] [id number] [place] [address]- 6807 Dec, [facility] [place] [facility] [address] [id number] [place] [address]- 3651 Dec, [facility] [place] [facility] [address] [id number] [place] [address]- 0180 Dec, [facility] [place] [facility] [address] [id number] [place] [address]- 0600 Dec, [facility] [place] [facility] [address] [id number] [place] [address]- 8342 Dec, [facility] [place] [facility] [address] [id number] [place] [address]- 6214 Nov, [facility] [place] [facility] [address] [id number] [place] [address]- 4991 Nov, [facility] [place] [facility] [address] [id number] [place] [address]- 2349 Nov, [facility] [place] [facility] [address] [id number] [place] [address]- 5382 Nov, [facility] [place] [facility] [address] [id number] [place] [address]- 8451 Nov, [facility] [place] [facility] [address] [id number] [place] [address]- 2464 Nov, [facility] [place] [facility] [address] [id number] [place] [address]- 5008 Oct, [facility] [place] [facility] [address] [id number] [place] [address]- 9036 Oct, [facility] [place] [facility] [address] [id number] [place] [address]- 8398 Oct, [facility] [place] [facility] [address] [id number] [place] [address]- 2043 Oct, [facility] [place] [facility] [address] [id number] [place] [address]- 4090 Oct, [facility] [place] [facility] [address] [id number] [place] [address]- 5009 Oct, [facility] [place] [facility] [address] [id number] [place] [address]- 1835 Oct, [facility] [place] [facility] [address] [id number] [place] [address] Oct, [facility] [place] [facility] [address] [id number] [place] [address] Oct, [facility] [place] [facility] [address] [id number] [place] [address] Oct, [facility] [place] [facility] [address] [id number] [place] [address] Oct, [facility] [place] [facility] [address] [id number] [place] [address] Oct, [facility] [place] [facility] [address] [id number] [place] [address] September, [facility] [place] [facility] [address] [id number] [place] [address] September, [facility] [place] [facility] [address] [id number] [place] [address] September, [facility] [place] [facility] [address] [id number] [place] [address] Aug, [facility] [place] [facility] [address] [id number] [place] [address] Aug, [facility] [place] [facility] [address] [id number] [place] [address] Jul, [facility] [place] [facility] [address] [id number] [place] [address] Jul, [facility] [place] [facility] [address] [id number] [place] [address] 10 Jul, 2013 [facility] [place] [facility] [address] [id number] [place] [address] Jul, [facility] [place] [facility] [address] [id number] [place] [address] Jul, [facility] [place] [facility] [address] [id number] [place] [address] Jul, [facility] [place] [facility] [address] [id number] [place] [address] Jul, [facility] [place] [facility] [address] [id number] [place] [address] Jul, [facility] [place] [facility] [address] [id number] [place] [address] Jul, [facility] [place] [facility] [address] [id number] [place] [address] Jul, [facility] [place] [facility] [address] [id number] [place] [address] Jun, [facility] [place] [facility] [address] [id number] [place] [address] Jun, [facility] [place] [facility] [address] [id number] [place] [address] Jun, [facility] [place] [facility] [address] [id number] [place] [address] Jun, [facility] [place] [facility] [address] [id number] [place] [address] May, [facility] [place] [facility] [address] [id number] [place] [address] May, [facility] [place] [facility] [address] [address] [id number] [place] [address] Apr, [facility] [place] [facility] [address] [id number], [place] [address] Apr, [facility] [place] [facility] [address] [id number] [place] [address] 6111 Apr, [facility] [place] [facility] [address] [id number] [place] [address]32 Apr, [facility] [place] [facility] [address] [facility] [id number] [place] [address] 7440 Apr, [facility] [place] [facility] [address] [id number], [place] [address] 8983 Apr, [facility] [place] [facility] [address] [id number] [place] [address] 8418 Apr, [facility] [place] [facility] [address] [id number] [place] [address] 5486 Apr, [facility] [place] [facility] [address] [id number] [address] Mar, [facility] [place] [facility] [address] [id number], [place] [address]10 Mar, [facility] [place] [facility] [address] [id number], [place] [address] 6925 Mar, [facility] [place] [facility] [address] [id number], [place] [address] 1536 Mar, [facility] [place] [facility] [address] [id number], [place] [address] 1872 Mar, [facility] [place] [facility] [address] [id number], [place] [address] 2700 Mar, [facility] [place] [facility] [address] [id number], [place] [address]208 Feb, [facility] [place] [facility] [address] [id number], [place] [address] 1685 Feb, [facility] [place] [facility] [address] [facility] [id number], [place] [address] 7014 Feb, [facility] [place] [facility] [address] [id number] [place] [address] 0752 18 Feb, 2013 [facility] [address] [id number] [place] [address] 6347 14 Feb, 2013 [facility] [place] [facility] [address] [id number] [place] [address]- 1633 14 Feb, 2013 [facility] [address] [id number] [place] [address]- 0464 04 Feb, 2013 [facility] [address] [id number] [place] [address]- 8744 27 Jan, 2013 [facility] [address] [id number] [place] [address]- 2265 26 Jan, 2013 [facility] [address] [id number] [place] [address]- 0133 19 Jan, 2013 [facility] [address] [id number] [place] [address]- 9244 05 Jan, 2013 [facility] [address] [id number] [place] [address] 9437 Dec, [facility] [address] [id number] [place] [address] 9166 Dec, [facility] [address] [id number] [place] [address] 5396 Dec, [facility] [place] [facility] [address] [id number] [place] [address]- 1681 Nov, [facility] [address] [id number] [place] [address]- 1757 Nov, [facility] [place] [facility] [address] [id number] [place] [address]- 0368 Nov, [facility] [place] [facility] [address] [id number] [place] [address]- 9244 Nov, [facility] [place] [facility] [address] [id number] [place] [address]- 2854 Nov, [facility] [address] [id number] [place] [address]- 9590 Nov, [facility] [place] [facility] [address] [id number] [place] [address] 3386 Oct, [facility] [place] [facility] [address] [id number] [place] [address]- 6628 Oct, [facility] [place] [facility] [address] [id number] [place] [address]- 8714 Oct, [facility] [address] [id number] [place] [address]- 0107 Oct, [facility] [place] [facility] [address] [id number] [place] [address]- 5890 Oct, [facility] [place] [facility] [address] [id number] [place] [address]- 6107 Oct, [facility] [place] [facility] [address] [id number] [place] [address]- 5204 September, [facility] [place] [facility] [address] [id number] [place] [address]- 2940 September, [facility] [place] [facility] [address] [id number] [place] [address]- 2028 September, [facility] [place] [facility] [address] [id number] [place] [address]- 3946 September, [facility] [place] [facility] [address] [id number] [place] [address] 8169 Aug, [facility] [place] [facility] [address] [id number] [place] [address]- 6416 Aug, [facility] [place] [facility] [address] [id number] [place] [address]- 3346 Jul, [facility] [place] [facility] [address] [id number] [place] [address]- 9196 Jul, [facility] [place] [facility] [address] [id number], [place] [address] 5100 18 Jul, 2012 [facility] [address] [id number] [place] [address]- 4806 15 Jul, 2012 [facility] [address] [id number] [place] [address]- 4366 13 Jul, 2012 [facility] [address] [id number] [place] [address]- 3836 08 Jul, 2012 [facility] [address] [id number] [place] [address]- 2026 20 Jun, 2012 [facility] [address] [id number] [place] [address]- 9406 13 Jun, 2012 [facility] [address] [id number] [place] [address]- 0096 17 May, 2012 [facility] [address] [id number] [place] [address]- 9146 04 May, 2012 [facility] [address] [id number] [place] [address]- 7821 18 Apr, 2012 [facility] [address] [id number] [place] [address]- 8440 18 Apr, 2012 [facility] [address] [id number] [place] [address]- 3296 Apr, [facility] [address] [id number] [place] [address]- 4013 13 Apr, 2012 [facility] [address] [id number] [place] [address]- 2545 10 Apr, 2012 [facility] [address] [id number] [place] [address]- 5714 10 Apr, 2012 [facility] [address] [id number] [place] [address] 07 Apr, 2012 [facility] [address] [id number] [place] [address]- 0378 07 Apr, 2012 [facility] [place] [facility] [address] [id number] [place] [address]- 7375 Apr, [facility] [place] [facility] [address] [id number] [place] [address]- 2916 Apr, [facility] [place] [facility] [address] [id number] [place] [address]- 4156 Apr, [facility] [place] [facility] [address] [id number] [place] [address]- 7086 Apr, [facility] [place] [facility] [address] [id number] [place] [address]- 7630 Apr, [facility] [place] [facility] [address] [id number] [place] [address]- 3852 Apr, [facility] [place] [facility] [address] [id number] [place] [address]- 0525 Apr, [facility] [place] [facility] [address] [id number] [place] [address]- 4001 Apr, [facility] [place] [facility] [address] [id number] [place] [address]- 6990 Mar, [facility] [place] [facility] [address] [id number] [place] [address]- 1915 Mar, [facility] [place] [facility] [address] [id number] [place] [address]- 5301 Mar, [facility] [place] [facility] [address] [id number] [place] [address]- 4139 Mar, [facility] [place] [facility] [address] [id number] [place] [address]- 0710 Mar, [facility] [place] [facility] [address] [id number] [place] [address]- 3696 Mar, [facility] [place] [facility] [address] [id number] [place] [address]606 05 Mar, 2012 [facility] [place] [facility] [address] [id number] [place] [address]- 9867 Mar, [facility] [place] [facility] [address] [id number] [place] [address]- 2546 Mar, [facility] [place] [facility] [address] [id number] [place] [address]- 2546 Mar, [facility] [place] [facility] [address] [id number] [place] [address]- 2546 Feb, [facility] [place] [facility] [address] [id number] [place] [address]- 2546 Feb, [facility] [place] [facility] [address] [id number] [place] [address]- 2546 Feb, [facility] [place] [facility] [address] [id number] [place] [address]- 2546 Feb, [facility] [place] [facility] [address] [id number] [place] [address]- 2546 Feb, [facility] [place] [facility] [address] [id number] [place] [address]- 254 Feb, [facility] [place] [facility] [address] [id number] [place] [address]- 3042 Jan, [facility] [place] [facility] [address] [id number] [place] [address]- 3916 Dec, [facility] [place] [facility] [address] [id number] [place] [address]- 2686 Dec, [facility] [place] [facility] [address] [id number], [place] [address]- 2546 Dec, [facility] [place] [facility] [address] [id number] [place] [address]- 2546 Dec, [facility] [place] [facility] [address] [id number] [place] [address]- 2546 Nov, [facility] [place] [facility] [address] [id number] [place] [address]- 2546 Nov, [facility] [place] [facility] [address] [id number] [place] [address]- 1872 Nov, [facility] [address] [id number] [place] [address]- 4405 Nov, [facility] [place] [facility] [address] [id number] [place] [address]- 1327 Oct, [facility] [address] [id number] [place] [address]- 5875 Oct, [facility] [place] [facility] [address] [id number] [place] [address]- 9448 Oct, [facility] [address] [id number] [place] [address]- 6973 Oct, [facility] [address] [id number] [place] [address]- 6641 Oct, [facility] [address] [id number] [place] [address]- 7438 September, [facility] [address] [id number] [place] [address]- 5757 September, [facility] [place] [facility] [address] [id number] [place] [address]- 9219 September, [facility] [address] [id number] [place] [address]- 6809 September, [facility] [place] [facility] [address] [id number] [place] [address]- 6906 September, [facility] [place] [facility] [address] [id number] [place] [address]- 4485 September, [facility] [place] [facility] [address] [id number] [place] [address]- 3649 September, [facility] [place] [facility] [address] [id number] [place] [address]- 3856 September, [facility] [place] [facility] [address] [id number] [place] [address]- 8068 Aug, [facility] [place] [facility] [address] [id number] [place] [address]- 6564 25 Aug, 2011 [facility] [address] [id number] [place] [address]- 9011 Aug, [facility] [address] [id number] [place] [address]- 7421 Aug, [facility] [address] [id number] [place] [address]- 4534 18 Aug, 2011 [facility] [address] [id number] [place] [address]- 9372 17 Aug, 2011 [facility] [address] [id number] [place] [address]- 4630 13 Aug, 2011 [facility] [address] [id number] [place] [address]- 7149 Aug, [facility] [address] [id number] [place] [address]- 0363 Aug, [facility] [address] [id number] [place] [address]- 7451 Aug, [facility] [address] [id number] [place] [address]- 9715 Aug, [facility] [address] [id number] [place] [address]- 8172 Aug, [facility] [address] [id number] [place] [address]- 0355 29 Jul, 2011 [facility] [place] [facility] [address] [id number] [place] [address]- 4105 28 Jul, 2011 [facility] [place] [facility] [address] [id number] [place] [address]- 5346 27 Jul, 2011 [facility] [place] [facility] [address] [id number] [place] [address]- 5662 23 Jul, 2011 [facility] [place] [facility] [address] [id number] [place] [address]- 6923 Jul, [facility] [address] [id number] [place] [address]- 2726 Jul, [facility] [place] [facility] [address] [id number] [place] [address]- 0246 14 Jul, 2011 [facility] [place] [facility] [address] [id number] [place] [address]- 2006 Jul, [facility] [place] [facility] [address] [id number] [place] [address]- 7271 07 Jul, 2011 [facility] [place] [facility] [address] [id number] [place] [address]- 0194 24 Jun, 2011 [facility] [place] [facility] [address] [id number] [place] [address]- 3247 Jun, [facility] [address] [id number] [place] [address]- 4962 23 Jun, 2011 [facility] [place] [facility] [address] [id number] [place] [address]- 4254 14 Jun, 2011 [facility] [place] [facility] [address] [id number] [place] [address]- 4069 02 Jun, 2011 [facility] [place] [facility] [address] [facility] [id number] [place] [address]- 4542 Jun, [facility] [place] [facility] [address] [facility] [id number] [place] [address]- 9799 Jun, [facility] [place] [facility] [address] [id number] [place] [address]- 3385 May, [facility] [place] [facility] [address] [id number] [place] [address]- 4485 May, [facility] [place] [facility] [address] [id number] [place] [address]- 2556 May, [facility] [place] [facility] [address] [id number], [place] [address]- 6712 May, [facility] [place] [facility] [address] [id number] [place] [address]- 4490 May, [facility] [address] [id number] [place] [address]- 2096 May, [facility] [address] [id number] [place] [address]- 7796 May, [facility] [address] [id number] [place] [address]- 0962 Apr, [facility] [address] [id number] [place] [address]- 2773 Apr, [facility] [address] [id number] [place] [address]- 0857 Apr, [facility] [address] [id number] [place] [address]- 8933 Apr, [facility] [address] [id number] [place] [address]- 5309 Apr, [facility] [address] [id number] [place] [address]- 4529 Apr, [facility] [address] [id number] [place] [address]- 0083 Apr, [facility] [address] [id number] [place] [address]- 6134 Apr, [facility] [address] [id number] [place] [address]- 7176 Apr, [facility] [place] [facility] [address] [id number] [place] [address]- 1085 Mar, [facility] [place] [facility] [address] [id number] [place] [address]- 3526 Mar, [facility] [place] [facility] [address] [id number] [place] [address]- 1046 Mar, [facility] [address] [id number] [place] [address]- 4014 Mar, [facility] [place] [facility] [address] [id number] [place] [address]- 9550 Mar, [facility] [place] [facility] [address] [id number] [place] [address]- 0486 Feb, [facility] [place] [facility] [address] [id number] [place] [address]- 7936 Feb, [facility] [place] [facility] [address] [id number] [place] [address]- 0386 Feb, [facility] [place] [facility] [address] [id number] [place] [address]- 5113 Dec, [facility] [place] [facility] [address] [id number] [place] [address]- 8150 Nov, [facility] [place] [facility] [address] [id number] [place] [address]- 3061 Apr, [facility] [place] [facility] [address] [id number] [place] [address]- 7503 Apr, [facility] [place] [facility] [address] [id number] [place] [address]- 1205 16 Apr, 2010 [facility] [place] [facility] [address] [id number] [place] [address]- 3799 Apr, [facility] [place] [facility] [address] [id number] [place] [address]- 4355 Apr, [facility] [place] [facility] [address] [id number] [place] [address]- 0237 Apr, [facility] [place] [facility] [address] [id number] [place] [address] 2549 Apr, [facility] [place] [facility] [address] [id number] [place] [address]- 4858 Apr, [facility] [place] [facility] [address] [id number] [place] [address]- 6132 Mar, [facility] [place] [facility] [address] [id number] [address] 9430 Mar, [facility] [id number] [address] Mar, [facility] [id number] [address] Mar, [facility] [id number] [address] Mar, [facility] [id number] [address] Mar, [facility] [id number] [place] [address] Mar, [facility] [id number] [address] Mar, [facility] [id number] [address] Mar, [facility] [id number] [address] Mar, IMMUNIZATIONS No Known Immunizations SOCIAL HISTORY Never Assessed 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
--- OUTSIDE RECORDS SUMMARY | 2018-04-22 23:12 | XMS REPORT ---
Author Author BRUNO STRATTON [facility] Address [address] [place] [address] Care Team Providers Care Recreation Therapy Aides Teacher Name Role Phone FOUZIAYANETHBRUNO Azul Unavailable PROBLEMS Type Condition ICD9-CM Code PCT95-GI Code Onset Dates Condition Status SNOMED Code Problem Severe sleep apnea G47.30 Active 13694889 Problem Iron deficiency anemia, unspecified iron deficiency anemia type D50.9 Active 57963207 Problem Decreased diffusion capacity R94.2 Active 02145428 Problem Stenosis of carotid artery, unspecified laterality I65.29 Active 82649909 Problem Coronary artery disease involving ottawa coronary artery of ottawa heart, angina presence unspecified I25.10 Active 5706371316648 Problem Generalized osteoarthritis M15.9 Active 067360743 Problem Hypoxemia R09.02 Active 995160544 Problem Aortic valve sclerosis I35.8 Active 52917211 Problem BMI 50.0-59.9, adult Z68.43 Active 342963755 Problem Essential hypertension I10 Active 23398388 Problem Port catheter in place Z95.828 Active 375904959 Problem Anxiety about health F41.8 Active 470532714 Problem Transient cerebral ischemia, unspecified type G45.9 Active 985097579 Problem Slow transit constipation K59.01 Active 89803471 Problem Bladder spasms N32.89 Active 136770882 Problem 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 Active 2946487 Problem Renal osteodystrophy N25.0 Active 97225578 Problem Mixed hyperlipidemia E78.2 Active 380397263 Problem Type 2 diabetes mellitus with unspecified complications E11.8 Active 53234361 Problem Chronic kidney disease, unspecified CKD stage N18.9 Active 433854198 Problem Pain R52 Active 60723074 Problem long term care pharmacist 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.4 Active 432691972 Problem Type 2 diabetes mellitus with foot ulcer E11.621 Active 599583167 Problem Type 2 diabetes mellitus with diabetic polyneuropathy E11.42 Active 010599764 Problem Type 2 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 Active 38531260 Problem Type 2 diabetes mellitus with hyperglycemia E11.65 Active 03372440 Problem Diarrhea, unspecified type R19.7 Active 49732700 Problem Trochanteric bursitis of left hip M70.62 Active [id number] Problem Anemia in other chronic diseases classified elsewhere D63.8 Active 009243192 Problem Chronic kidney disease, stage 3 (moderate) N18.3 Active 222376104 ALLERGIES No Information ENCOUNTERS Encounter Location Date Diagnosis [facility] [id number] [place] [address] 39445- 1636 Dec, [facility] [address] [place] [id number] Dec, Type 2 diabetes mellitus with hyperglycemia E11.65 ; Essential hypertension I10 ; Generalized osteoarthritis M15.9 ; Mixed hyperlipidemia E78.2 ; Hypoxia R09.02 ; Port catheter in place Z95.828 ; Anemia due to acute blood loss D62 ; Chronic kidney disease, unspecified CKD stage N18.9 and Severe sleep apnea G47.30 [facility] [id number] [place] [address] 93220- 3777 Dec, Type 2 diabetes mellitus with hyperglycemia E11.65 [facility] [id number] [place] [address] 25774- 5917 Dec, [facility] [id number] [place] [address] 96578- 7449 Dec, Type 2 diabetes mellitus with hyperglycemia E11.65 [facility] [id number] [place] [address] 36893- 9896 Dec, Left leg pain M79.605 [facility] [address] 37047- 1458 Nov, Slow transit constipation K59.01 [facility] [id number] [place] [address] 13716- 6787 Nov, [facility] [address] [place] [id number] Nov, Anemia due to acute blood loss D62 [facility] [address], [place] [address] Nov, [facility] [address], [place] [address] 5741 Nov, Bladder spasms N32.89 [facility] [address], [place] [address] 1193 Nov, Pain R52 [facility] [address] [id number] Nov, Anemia due to acute blood loss D62 [facility] [address], [place] [address] 1223 Nov, Pain in right hip M25.551 and Pain in left hip M25.552 [facility] [address], [place] [address] 9404 Nov, [facility] [address], [place] [address] 0566 Nov, [facility] [address], [place] [address] 5735 Nov, [facility] [address], [place] [address] 3938 Nov, [facility] [address], [place] [address] 0615 Oct, [facility] [address], [place] [address] 2514 Oct, [facility] [address] [place] [id number] Oct, Encounter for examination for admission to assisted Z02.2 ; Chronic kidney disease, unspecified CKD stage N18.9 ; Type 2 diabetes mellitus with unspecified complications E11.8 ; long-term 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.4 ; Essential hypertension I10 ; Hypoxia R09.02 ; Severe sleep apnea G47.30 ; Stenosis of carotid artery, unspecified laterality I65.29 ; Generalized osteoarthritis M15.9 ; Coronary artery disease involving ottawa coronary artery of ottawa heart, angina presence unspecified I25.10 ; Port catheter in place Z95.828 and Hemorrhoids, unspecified hemorrhoid type K64.9 [facility] [id number] [place] [address] 06739- 5846 Oct, [facility] [id number] [place] [address] 45670- 3205 Oct, [facility] [address] 52110- 8143 Oct, [facility] [id number] [place] [address] 21315- 1153 Oct, [facility] [id number] [place] [address] 11657 -6152 September, BMI 50.0-59.9, adult Z68.43 [facility] [address] 07553- 3959 September, [facility] [id number] [place] [address] 16473- 9277 September, [facility] [id number] [place] [address] 94167- 3526 Aug, Type 2 diabetes mellitus with foot ulcer E11.621 ; Transient cerebral ischemia, unspecified type G45.9 ; Essential hypertension I10 ; Mixed hyperlipidemia E78.2 and BMI 50.0-59.9, adult Z68.43 [facility] [id number] [place] [address] 84971- 1327 Aug, [facility] [id number] [place] [address] 86523- 5368 Jul, Anxiety about health F41.8 and Mixed hyperlipidemia E78.2 [facility] [id number] [place] [address] 13658- 9089 Jul, [facility] [id number] [place] [address] 17144- 5771 Jun, [facility] [address], [place] [address] 1987 12 Jun, 2018 Type 2 diabetes mellitus with hyperglycemia E11.65 ; Type 2 diabetes mellitus with foot ulcer E11.621 ; Port catheter in place Z95.828 ; 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 ; Contact with and (suspected) exposure to potentially hazardous body fluids Z77.21 and BMI 50.0-59.9, adult Z68.43 [facility] [id number] [place] [address] 14798- 4079 May, [facility] [id number] [place] [address] 77935- 5569 May, Open wound of right great toe, subsequent encounter S91.101D [facility] [id number] [place] [address] 33612- 3611 May, [facility] [id number] [place] [address] 16984- 0733 Apr, [facility] [id number] [place] [address] 71090- 2128 Apr, [facility] [id number] [place] [address] 63869- 7062 14 Apr, 2017 [facility] [id number] [place] [address] 35293- 5076 14 Apr, 2017 Type 2 diabetes mellitus with diabetic polyneuropathy E11.42 [facility] [id number] [place] [address] 74260- 6721 13 Apr, 2017 Open wound of right great toe, subsequent encounter S91.101D [facility] [id number] [place] [address] 47016- 9824 08 Apr, 2017 Open wound of right great toe, subsequent encounter S91.101D ; Breast pain, left N64.4 ; Breast cancer screening Z12.31 ; Type 2 diabetes mellitus with foot ulcer E11.621 ; Essential hypertension I10 and BMI 50.0-59.9, adult Z68.43 [facility] [id number] [place] [address] 34732- 7029 29 Mar, 2017 Encounter for immunization Z23 [facility] [address] 01138- 4888 Mar, [facility] [address] 84623- 9208 Mar, [facility] [address] 08866- 9628 Mar, Type 2 diabetes mellitus with diabetic polyneuropathy E11.42 ; Type 2 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 ; Type 2 diabetes mellitus with foot ulcer E11.621 ; Essential hypertension I10 ; Hypoxemia R09.02 and Generalized osteoarthritis M15.9 [facility] [address] 85551- 3608 Mar, Chronic kidney disease, stage 3 (moderate) N18.3 ; Acute cystitis without hematuria N30.00 ; Essential hypertension I10 ; Muscle spasms of neck M62.838 ; Type 2 diabetes mellitus with diabetic polyneuropathy E11.42 and BMI 50.0-59.9, adult Z68.43 [facility] [address] 30540- 1056 30 Feb, 2017 [facility] [id number] [place] [address] 13787 -8785 Feb, [facility] [address] 11731- 0605 Feb, [facility] [address] 10839- 8401 Feb, [facility] [address] 22327- 2516 Feb, [facility] [address] 30583- 8652 Feb, [facility] [address] 43791- 9232 Feb, Mixed hyperlipidemia E78.2 [facility] [address], [place] [address] 8329 Feb, [facility] [id number] [place] [address] 723620- 6839 Jan, [facility] [id number] [place] [address] 62562- 0459 14 Jan, 2017 Generalized osteoarthritis M15.9 [facility] [id number] [place] [address] 38270- 1225 Oct, [facility] [id number] [place] [address] 167471- 6536 Jul, [facility] [id number] [place] [address] 35103- 5473 Jul, [facility] [id number] [place] [address] 49001- 3860 Jul, Type 2 diabetes mellitus with hyperglycemia E11.65 ; Chronic kidney disease, stage 3 (moderate) N18.3 ; Type 2 diabetes mellitus with foot ulcer E11.621 ; Type 2 diabetes mellitus with diabetic polyneuropathy E11.42 ; Generalized osteoarthritis M15.9 ; Trochanteric bursitis of left hip M70.62 and Tinea pedis of both feet B35.3 [facility] [id number] [place] [address] 52095- 0287 Jun, [facility] [id number] [place] [address] 56140- 7031 Apr, [facility] [address], [place] [address]- 0491 Apr, [facility] [id number] [place] [address] 014579- 0792 Mar, [facility] [address], [place] [address]- 2971 Feb, Encounter for immunization Z23 [facility] [id number] [place] [address] 13378- 3178 18 Feb, 2016 [facility] [address] 62777- 8418 14 Feb, 2016 Type 2 diabetes mellitus with hyperglycemia E11.65 ; Encounter for immunization Z23 ; Diarrhea, unspecified type R19.7 ; Essential hypertension I10 ; Mixed hyperlipidemia E78.2 ; Hypoxia R09.02 ; 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 and Type 2 diabetes mellitus with foot ulcer E11.621 [facility] [id number] [place] [address] 33057- 4119 Jan, [facility] [id number] [place] [address] 02090- 8475 Jan, Type 2 diabetes mellitus with hyperglycemia E11.65 and Pneumonia due to infectious organism, unspecified laterality, unspecified part of lung J18.9 [facility] [id number] [place] [address] 62548- 3659 Jan, [facility] [id number] [place] [address] 21540- 4938 Jan, [facility] [id number] [place] [address] 41206- 0451 Oct, Type 2 diabetes mellitus with hyperglycemia E11.65 ; Generalized osteoarthritis M15.9 and Chronic prescription opiate use Z79.891 [facility] [id number] [place] [address] 45999- 4242 September, [facility] [id number] [place] [address] 36401- 0444 Aug, [facility] [address] 38942- 1002 Aug, [facility] [id number] [place] [address] 13052- 0789 Aug, [facility] [id number] [place] [address] 45323- 1797 Aug, [facility] [id number] [place] [address] 47628- 4539 Jun, [facility] [id number] [place] [address] 02279- 2161 Jun, Type 2 diabetes mellitus with hyperglycemia E11.65 ; Mixed hyperlipidemia E78.2 ; Vaginal itching L29.8 ; Neck muscle spasm M62.838 and Skin abrasion T14.8 [facility] [id number] [place] [address] 72829- 0319 Apr, [facility] [id number] [place] [address] 28188- 9064 Apr, [facility] [id number] [place] [address] 12635- 7837 Mar, [facility] [id number] [place] [address] 50837- 0418 Feb, [facility] [id number] [place] [address] 04963- 3129 Feb, Type 2 diabetes mellitus with hyperglycemia E11.65 ; Type 2 diabetes mellitus with foot ulcer E11.621 ; Type 2 diabetes mellitus with diabetic polyneuropathy E11.42 and Encounter for immunization Z23 [facility] [id number] [place] [address] 32540- 8474 Jan, Hypertension 401.9 ; Uncontrolled type 2 diabetes mellitus 250.02 ; Right shoulder pain 719.41 and Ulcer of heel and midfoot 707.14 [facility] [id number] [place] [address] 05997- 1445 Dec, Diabetes with other specified manifestations, type II or unspecified type, not stated as uncontrolled 250.80 ; Ulcer of heel and midfoot 707.14 ; Hypertension 401.9 ; Hip pain, left 719.45 and Acute anxiety 300.00 [facility] [id number] [place] [address] 49092- 3747 Nov, [facility] [id number] [address]- 1576 Nov, [facility] [address] [id number] [address]- 5122 September, Anxiety attack 300.01 and Cellulitis 682.9 [facility] [address] [id number] [place] [address]- 4724 September, [facility] [address] [id number] [place] [address]- 1582 September, [facility] [address] [id number] [place] [address]- 0092 September, [facility] [address] [id number] [place] [address]- 1568 Aug, [facility] [address] [facility] [id number] [place] [address]- 5415 Aug, [facility] [address] [facility] [id number], [place] [address]- 8362 Jul, [facility] [address] [facility] [place] [id number] [place] [address]- 3110 Jul, [facility] [id number] [address]- 5830 Jul, [facility] [id number], [place] [address]- 9500 May, [facility] [address] [id number], [place] [address]- 1165 May, [facility] [address] [id number] [address]- 0288 Mar, [facility] [address] [facility] [place] [id number], [place] [address]- 3889 Mar, [facility] [address] [facility] [id number], [place] [address]- 7886 Mar, [facility] [address] [facility] [place] [id number], [place] [address]- 5415 Mar, [facility] [place] [facility] [address] [id number] [place] [address]- 8481 Mar, [facility] [place] [facility] [address] [id number] [place] [address]- 8639 Mar, [facility] [place] [facility] [address] [id number] [place] [address]- 8359 Mar, [facility] [place] [facility] [address] [id number] [place] [address]- 8432 Feb, [facility] [place] [facility] [address] [id number] [place] [address]- 7342 14 Feb, 2014 [facility] [place] [facility] [address] [id number] [place] [address]- 0920 30 Jan, 2014 [facility] [place] [facility] [address] [id number] [place] [address]- 2773 30 Jan, 2014 [facility] [place] [facility] [address] [id number] [place] [address]- 4918 26 Jan, 2014 [facility] [place] [facility] [address] [id number] [place] [address]- 4484 26 Jan, 2014 [facility] [place] [facility] [address] [id number] [place] [address]- 7604 25 Jan, 2014 [facility] [place] [facility] [address] [id number], [place] [address] 2541 25 Jan, 2013 [facility] [place] [facility] [address] [id number] [address]- 2542 25 Jan, 2013 [facility] [place] [facility] [address] [id number] [place] [address] 254 25 Jan, 2013 [facility] [place] [facility] [address] [id number] [place] [address]- 3004 18 Jan, 2013 [facility] [place] [facility] [address] [id number] [place] [address]- 2547 18 Jan, 2013 [facility] [place] [facility] [address] [id number] [place] [address]- 9736 06 Sep, 2013 [facility] [place] [facility] [address] [id number] [place] [address]- 8790 06 Sep, 2013 [facility] [place] [facility] [address] [id number] [place] [address]- 1910 05 Sep, 2013 [facility] [place] [facility] [address] [id number] [place] [address]- 5697 05 Sep, 2013 [facility] [place] [facility] [address] [id number] [place] [address]- 3076 05 Sep, 2013 [facility] [place] [facility] [address] [id number] [place] [address]- 2459 05 Sep, 2013 [facility] [place] [facility] [address] [id number] [place] [address]- 6857 Sep, 2013 [facility] [place] [facility] [address] [id number] [place] [address]- 2486 Jan, 2013 [facility] [place] [facility] [address] [id number] [place] [address]- 7597 Dec, 2013 [facility] [place] [facility] [address] [id number] [place] [address]- 7387 Dec, 2013 [facility] [place] [facility] [address] [id number] [place] [address]- 0859 Dec, 2013 [facility] [place] [facility] [address] [id number] [place] [address]- 2739 Dec, 2013 [facility] [place] [facility] [address] [id number] [place] [address]- 1336 Dec, [facility] [place] [facility] [address] [id number] [place] [address]- 5152 Dec, [facility] [place] [facility] [address] [id number] [place] [address]- 2438 Dec, [facility] [place] [facility] [address] [id number] [place] [address]- 8001 Dec, [facility] [place] [facility] [address] [id number] [place] [address]- 9127 Dec, [facility] [place] [facility] [address] [id number] [place] [address]- 7240 Dec, [facility] [place] [facility] [address] [id number] [place] [address]- 0388 Nov, [facility] [place] [facility] [address] [id number] [place] [address]- 9965 Nov, [facility] [place] [facility] [address] [id number] [place] [address]- 0098 Nov, [facility] [place] [facility] [address] [id number] [place] [address]- 5255 Nov, [facility] [place] [facility] [address] [id number] [place] [address]- 0390 Nov, [facility] [place] [facility] [address] [id number] [place] [address]- 5851 Nov, [facility] [place] [facility] [address] [id number] [place] [address]- 3762 Oct, [facility] [place] [facility] [address] [id number] [place] [address]- 1892 Oct, [facility] [place] [facility] [address] [id number] [place] [address]- 3946 Oct, [facility] [place] [facility] [address] [id number] [place] [address]- 2205 Oct, [facility] [place] [facility] [address] [id number] [place] [address]- 6260 Oct, [facility] [place] [facility] [address] [id number] [place] [address]- 8648 Oct, [facility] [place] [facility] [address] [id number] [place] [address]- 4231 Oct, [facility] [place] [facility] [address] [id number] [place] [address]- 6772 Oct, [facility] [place] [facility] [address] [id number] [place] [address]- 0199 Oct, [facility] [place] [facility] [address] [id number] [place] [address]- 0202 Oct, [facility] [place] [facility] [address] [id number] [place] [address]- 5732 Oct, [facility] [place] [facility] [address] [id number] [place] [address]- 5144 Oct, [facility] [place] [facility] [address] [id number] [place] [address]- 4305 September, [facility] [place] [facility] [address] [id number] [place] [address]- 5172 September, [facility] [place] [facility] [address] [id number] [place] [address]- 1339 September, [facility] [place] [facility] [address] [id number] [place] [address]- 2474 Aug, [facility] [place] [facility] [address] [id number] [place] [address]- 2152 Aug, [facility] [place] [facility] [address] [id number] [place] [address] Jul, [facility] [place] [facility] [address] [id number] [place] [address] Jul, [facility] [place] [facility] [address] [id number] [place] [address] Jul, [facility] [place] [facility] [address] [id number] [place] [address] Jul, [facility] [place] [facility] [address] [id number] [place] [address] 08 Jul, 2013 [facility] [place] [facility] [address] [id number] [place] [address] Jul, [facility] [place] [facility] [address] [id number] [place] [address] Jul, [facility] [place] [facility] [address] [id number] [place] [address] Jul, [facility] [place] [facility] [address] [id number] [place] [address] Jul, [facility] [place] [facility] [address] [id number] [place] [address] Jul, [facility] [place] [facility] [address] [id number] [place] [address] Jun, [facility] [place] [facility] [address] [id number] [place] [address] Jun, [facility] [place] [facility] [address] [id number] [place] [address] Jun, [facility] [place] [facility] [address] [id number] [place] [address] Jun, [facility] [place] [facility] [address] [id number] [place] [address] May, [facility] [place] [facility] [address] [id number] [place] [address] May, [facility] [place] [facility] [address] [id number] [place] [address] Apr, [facility] [place] [facility] [address] [id number] [place] [address] Apr, [facility] [place] [facility] [address] [id number] [place] [address] Apr, [facility] [place] [facility] [address] [id number] [place] [address] [address] Apr, [facility] [place] [facility] [address] [id number] [place] [address] Apr, [facility] [place] [facility] [address] [id number] [address] Apr, [facility] [place] [facility] [address] [id number] [place] [address] Apr, [facility] [place] [facility] [address] [id number], [place] [address] Apr, [facility] [place] [facility] [address] [address] [id number] [place] [address] Mar, [facility] [place] [facility] [address] [id number] [place] [address] Mar, [facility] [place] [facility] [address] [id number] [place] [address] 7468 Mar, [facility] [place] [facility] [address] [id number] [place] [address] 4[address] Mar, [facility] [place] [facility] [address] [facility] [place] [id number], [place] [address] Mar, [facility] [place] [facility] [address] [id number] [place] [address] 6673 Mar, [facility] [place] [facility] [address] [id number], [place] [address] Feb, [facility] [place] [facility] [address] [id number], [place] [address] 30 Feb, 2013 [facility] [place] [facility] [address] [id number], [place] [address] Feb, [facility] [place] [facility] [address] [id number], [place] [address]293 18 Feb, 2013 [facility] [place] [facility] [address] [id number][place] [address] 4062 14 Feb, 2013 [facility] [place] [facility] [address] [id number][place] [address] 9666 14 Feb, 2013 [facility] [place] [facility] [address] [facility] [place] [id number], [place] [address] 7[address] Feb, [facility] [place] [facility] [address] [id number] [place] [address]- 8977 27 Jan, 2013 [facility] [address] [id number] [place] [address]- 3674 26 Jan, 2013 [facility] [place] [facility] [address] [id number] [place] [address] 1761 Jan, [facility] [place] [facility] [address] [id number] [place] [address]- 7649 05 Jan, 2013 [facility] [place] [facility] [address] [id number] [place] [address]- 6656 Dec, [facility] [place] [facility] [address] [id number] [place] [address]- 6872 Dec, [facility] [place] [facility] [address] [id number] [place] [address] 4997 Dec, [facility] [place] [facility] [address] [id number] [place] [address]- 0783 Nov, [facility] [address] [id number] [place] [address] 8343 Nov, [facility] [place] [facility] [address] [id number] [place] [address]- 2679 Nov, [facility] [place] [facility] [address] [id number] [place] [address]- 0771 Nov, [facility] [place] [facility] [address] [id number] [place] [address]- 7668 Nov, [facility] [place] [facility] [address] [id number] [place] [address]- 3070 Nov, [facility] [place] [facility] [address] [id number] [place] [address]- 7823 Oct, [facility] [place] [facility] [address] [id number] [place] [address]- 3232 Oct, [facility] [place] [facility] [address] [id number] [place] [address]- 2338 Oct, [facility] [address] [id number] [place] [address]- 9858 Oct, [facility] [place] [facility] [address] [id number] [place] [address]- 6605 Oct, [facility] [address] [id number] [place] [address]- 4119 Oct, [facility] [place] [facility] [address] [id number] [place] [address]- 6562 September, [facility] [address] [id number] [place] [address]- 5333 September, [facility] [place] [facility] [address] [id number] [place] [address]- 2713 September, [facility] [address] [id number] [place] [address]- 7469 September, [facility] [address] [id number] [place] [address]- 8615 Aug, [facility] [place] [facility] [address] [id number] [place] [address]- 2586 Aug, [facility] [place] [facility] [address] [id number] [place] [address]- 3848 Jul, [facility] [place] [facility] [address] [id number] [place] [address]- 0529 Jul, [facility] [place] [facility] [address] [id number], [place] [address]- 2857 18 Jul, 2012 [facility] [place] [facility] [address] [id number] [place] [address]- 2610 15 Jul, 2012 [facility] [place] [facility] [address] [id number] [place] [address]- 4303 13 Jul, 2012 [facility] [place] [facility] [address] [id number] [place] [address]- 8642 08 Jul, 2012 [facility] [place] [facility] [address] [id number] [place] [address]- 4826 20 Jun, 2012 [facility] [address] [id number] [place] [address]- 9026 13 Jun, 2012 [facility] [place] [facility] [address] [id number] [place] [address]- 5786 May, [facility] [address] [id number] [place] [address]- 0106 May, [facility] [place] [facility] [address] [id number] [place] [address]- 4146 Apr, [facility] [address] [id number] [place] [address]- 1506 Apr, [facility] [address] [id number] [place] [address]- 6326 Apr, [facility] [address] [id number] [place] [address]- 7031 Apr, [facility] [address] [id number] [place] [address]- 7917 Apr, [facility] [place] [facility] [address] [id number] [place] [address]- 9526 Apr, [facility] [address] [facility] [place] [id number] [place] [address]- 0120 Apr, [facility] [place] [facility] [address] [id number] [place] [address]- 6376 Apr, [facility] [place] [facility] [address] [id number] [place] [address]- 2346 Apr, [facility] [place] [facility] [address] [id number] [place] [address]- 9266 Apr, [facility] [place] [facility] [address] [id number] [place] [address]- 6136 Apr, [facility] [place] [facility] [address] [id number] [place] [address]- 9597 Apr, [facility] [place] [facility] [address] [id number] [place] [address]- 2719 Apr, [facility] [place] [facility] [address] [id number] [place] [address]- 9406 Apr, [facility] [place] [facility] [address] [id number] [place] [address]- 5962 Apr, [facility] [place] [facility] [address] [id number] [place] [address]- 7403 Apr, [facility] [place] [facility] [address] [id number] [place] [address]- 8857 Mar, [facility] [place] [facility] [address] [id number] [place] [address]- 8552 Mar, [facility] [place] [facility] [address] [id number] [place] [address]- 9808 Mar, [facility] [place] [facility] [address] [id number] [place] [address]- 9988 Mar, [facility] [place] [facility] [address] [id number] [place] [address]- 1107 Mar, [facility] [place] [facility] [address] [id number] [place] [address]- 7589 Mar, [facility] [place] [facility] [address] [id number] [place] [address]- 8997 Mar, [facility] [place] [facility] [address] [id number] [place] [address]- 5525 Mar, [facility] [place] [facility] [address] [id number] [place] [address]- 5035 Mar, [facility] [place] [facility] [address] [id number] [place] [address]- 2876 Mar, [facility] [place] [facility] [address] [id number] [place] [address]- 3571 Feb, [facility] [place] [facility] [address] [id number] [place] [address]- 2546 Feb, [facility] [place] [facility] [address] [id number] [place] [address]- 6893 Feb, [facility] [place] [facility] [address] [id number] [place] [address]- 5644 Feb, [facility] [place] [facility] [address] [id number] [place] [address]- 6440 Feb, [facility] [place] [facility] [address] [id number] [place] [address]- 5917 Feb, [facility] [place] [facility] [address] [id number] [place] [address]- 1414 Jan, [facility] [place] [facility] [address] [id number] [place] [address]- 8424 Dec, [facility] [place] [facility] [address] [id number] [place] [address]- 4439 Dec, [facility] [place] [facility] [address] [id number] [place] [address]- 5721 Dec, [facility] [place] [facility] [address] [id number] [place] [address]- 9599 Dec, [facility] [place] [facility] [address] [id number] [place] [address]- 6831 Nov, [facility] [place] [facility] [address] [id number] [place] [address]- 5627 Nov, [facility] [place] [facility] [address] [id number] [place] [address]- 5712 Nov, [facility] [place] [facility] [address] [id number] [place] [address]- 9484 Nov, [facility] [place] [facility] [address] [id number] [place] [address]- 8840 Oct, [facility] [place] [facility] [address] [id number] [place] [address]- 4051 Oct, [facility] [place] [facility] [address] [id number] [place] [address]- 9637 Oct, [facility] [address] [id number] [place] [address]- 4522 Oct, [facility] [address] [id number] [place] [address]- 1154 Oct, [facility] [address] [id number] [place] [address]- 8440 September, [facility] [address] [id number] [place] [address]- 0474 September, [facility] [address] [id number] [place] [address]- 0895 September, [facility] [address] [id number] [place] [address]- 4930 September, [facility] [address] [id number] [place] [address]- 8730 September, [facility] [address] [id number] [place] [address]- 5009 September, [facility] [address] [id number] [place] [address]- 6254 September, [facility] [address] [id number] [place] [address]- 7088 September, [facility] [address] [id number] [place] [address]- 9270 Aug, [facility] [address] [id number] [place] [address]- 7651 Aug, [facility] [address] [id number] [place] [address]- 2127 Aug, [facility] [address] [id number] [place] [address]- 1145 Aug, [facility] [address] [id number] [place] [address]- 4975 Aug, [facility] [place] [facility] [address] [id number] [place] [address]- 2663 17 Aug, 2011 [facility] [place] [facility] [address] [id number] [place] [address]- 2361 13 Aug, 2011 [facility] [place] [facility] [address] [id number] [place] [address]- 0018 12 Aug, 2011 [facility] [place] [facility] [address] [id number] [place] [address]- 3017 10 Aug, 2011 [facility] [place] [facility] [address] [id number] [place] [address]- 2083 09 Aug, 2011 [facility] [place] [facility] [address] [id number] [place] [address]- 2637 Aug, [facility] [place] [facility] [address] [id number] [place] [address]- 8511 Aug, [facility] [place] [facility] [address] [id number] [place] [address]- 3639 29 Jul, 2011 [facility] [place] [facility] [address] [id number] [place] [address]- 2938 28 Jul, 2011 [facility] [place] [facility] [address] [id number] [place] [address]- 0859 27 Jul, 2011 [facility] [place] [facility] [address] [id number] [place] [address]- 9257 23 Jul, 2011 [facility] [place] [facility] [address] [id number] [place] [address]- 7753 21 Jul, 2011 [facility] [place] [facility] [address] [id number] [place] [address]- 0143 21 Jul, 2011 [facility] [place] [facility] [address] [id number] [place] [address]- 5455 14 Jul, 2011 [facility] [place] [facility] [address] [id number] [place] [address]- 8591 13 Jul, 2011 [facility] [place] [facility] [address] [id number], [place] [address]- 4148 Jul, [facility] [address] [id number] [place] [address]- 5386 Jun, [facility] [place] [facility] [address] [id number] [place] [address]- 5906 Jun, [facility] [address] [id number] [place] [address]- 7666 Jun, [facility] [place] [facility] [address] [id number] [place] [address]- 3163 Jun, [facility] [address] [id number] [place] [address]- 3816 Jun, [facility] [place] [facility] [address] [facility] [place] [id number] [place] [address]- 8886 Jun, [facility] [id number] [place] [address]- 2197 Jun, [facility] [address] [id number] [place] [address]- 9797 May, [facility] [place] [facility] [id number] [place] [address]- 9317 May, [facility] [address] [id number] [place] [address]- 7518 May, [facility] [place] [facility] [address] [id number] [place] [address]- 3549 May, [facility] [place] [facility] [address] [id number] [place] [address]- 7601 May, [facility] [place] [facility] [address] [id number] [place] [address]- 4652 May, [facility] [place] [facility] [address] [facility] [place] [id number] [place] [address]- 2061 May, [facility] [place] [facility] [address] [facility] [place] [id number] [place] [address]- 1585 Apr, [facility] [place] [facility] [address] [id number] [place] [address]- 6791 Apr, [facility] [place] [facility] [address] [id number] [place] [address]- 1283 Apr, [facility] [place] [facility] [address] [id number] [place] [address]- 6809 Apr, [facility] [place] [facility] [address] [id number] [place] [address]- 5604 Apr, [facility] [place] [facility] [address] [id number] [place]237 Apr, [facility] [place] [facility] [address] [id number] [place] [address]- 0982 Apr, [facility] [place] [facility] [address] [id number] [place] [address]- 4084 Apr, [facility] [place] [facility] [address] [id number] [place] [address]- 5903 Apr, [facility] [place] [facility] [address] [id number] [place] [address]- 4181 Mar, [facility] [place] [facility] [address] [id number], [place] [address]- 9230 Mar, [facility] [place] [facility] [address] [id number], [place] [address]- 7675 Mar, [facility] [place] [facility] [address] [id number], [place] [address]- 2803 Mar, [facility] [place] [facility] [address] [id number], [place] [address]- 6527 Mar, [facility] [place] [facility] [address] [id number], [place] [address]- 6727 Feb, [facility] [place] [facility] [address] [id number] 0828 Feb, [facility] [place] [facility] [address] [id number], [place] [address]- 0679 17 Feb, 2011 [facility] [address] [id number] [place] [address] 2546 Dec, [facility] [place] [facility] [address] [id number] [place] [address] 2546 Nov, [facility] [address] [id number] [place] [address]- 8216 Apr, [facility] [place] [facility] [address] [id number] [place] [address] 2541 20 Apr, 2010 [facility] [address] [id number] [place] [address]- 5776 16 Apr, 2010 [facility] [place] [facility] [address] [id number] [place] [address]- 6746 Apr, [facility] [address] [facility] [id number] [place] [address]- 1794 Apr, [facility] [place] [facility] [address] [id number] [place] [address]- 9332 Apr, [facility] [address] [facility] [place] [id number] [place] [address]- 2294 Apr, [facility] [place] [facility] [address] [facility] [place] [id number] [place] [address]- 9939 Apr, [facility] [place] [facility] [address] [id number] [place] [address]- 5737 29 Mar, 2010 [facility] [place] [facility] [address] [id number] [place] [address]- 2542 Mar, [facility] [place] [facility] [address] [id number] [place] [address]- 9115 Mar, [facility] [place] [facility] [address] [id number] [place] [address]- 2541 Mar, [facility] [place] [facility] [address] [facility] [id number] [place] [address]- 5216 Mar, [facility] [place] [facility] [address] [facility] [id number] [place] [address]- 8487 Mar, [facility] [address] [facility] [place] [id number], [place] [address]- 6955 Mar, [facility] [address] [id number], [place] [address]- 5278 Mar, [facility] [address] [facility] [place] [id number], [place] [address]- 8128 Mar, [facility] [address] [facility] [place] [id number] [address]- 2959 Mar, IMMUNIZATIONS No Known Immunizations SOCIAL HISTORY Never Assessed REASON FOR VISIT Hospital admit/transfer PLAN OF CARE VITAL SIGNS MEDICATIONS Unknown [...]
--- OUTSIDE RECORDS SUMMARY | 2018-04-22 23:12 | XMS REPORT ---
Author Author RICHMOND MARY [facility] Address [address] [place] [address] Care Team Providers Care Core Analyst Name Role Phone RICHMONDSRIDHARMARY Unavailable PROBLEMS Type Condition ICD9-CM Code DUF96-EI Code Onset Dates Condition Status SNOMED Code Problem Mixed hyperlipidemia E78.2 Active 294255449 Problem Severe sleep apnea G47.30 Active 72499095 Problem Iron deficiency anemia, unspecified iron deficiency anemia type D50.9 Active 87015508 Problem Decreased diffusion capacity R94.2 Active 27549772 Problem Stenosis of carotid artery, unspecified laterality I65.29 Active 17864426 Problem Coronary artery disease involving [place] coronary artery of [place] heart, angina presence unspecified I25.10 Active 5570165622576 Problem Generalized osteoarthritis M15.9 Active 347721793 Problem Aortic valve sclerosis I35.8 Active 71750584 Problem Port catheter in place Z95.828 Active 564180318 Problem Essential hypertension I10 Active 61959533 Problem Transient cerebral ischemia, unspecified type G45.9 Active 847640577 Problem Renal osteodystrophy N25.0 Active 96708433 Problem Anxiety about health F41.8 Active 538852550 Problem Chronic kidney disease, unspecified CKD stage N18.9 Active 756638022 Problem Type 2 diabetes mellitus with unspecified complications E11.8 Active 14938352 Problem Other chronic pain G89.29 Active 66563095 Problem Chronic kidney disease (CKD), stage 4 (severe) N18.4 Active 950889921 Problem Type 2 diabetes mellitus with hyperglycemia E11.65 Active 59070864 Problem Type 2 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 Active 67753308 Problem 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0-59.9, adult Z68.43 Active 400212978 Problem Diarrhea, unspecified type R19.7 Active 29623688 Problem Trochanteric bursitis of left hip M70.62 Active [id number] ALLERGIES No Information ENCOUNTERS Encounter Location Date Diagnosis [facility] [address] [place], [place] [id number] Dec, Low back pain M54.5 ; Other chronic pain G89.29 and Chronic kidney disease (CKD), stage 4 (severe) N18.[address] [address]- [address] Dec, Type 2 diabetes mellitus with hyperglycemia E11.65 [facility] [id number] [place] [address] 60347- 5470 Dec, [facility] [address] [place] [id number] Dec, Type 2 diabetes mellitus with hyperglycemia E11.65 ; Essential hypertension I10 ; Generalized osteoarthritis M15.9 ; Mixed hyperlipidemia E78.2 ; Hypoxia R09.02 ; Port catheter in place Z95.828 ; Anemia due to acute blood loss D62 ; Chronic kidney disease, unspecified CKD stage N18.9 and Severe sleep apnea G47.30 [facility] [id number] [place] [address] 92045- 7812 Dec, Type 2 diabetes mellitus with hyperglycemia E11.65 [facility] [address] [address]- 3412 Dec, [facility] [id number] [place] [address] 60149- 8913 Dec, Type 2 diabetes mellitus with hyperglycemia E11.65 [facility] [address] [place] [address]- 5816 Dec, Left leg pain M79.605 [facility] [id number] [place] [address] 532094- 5688 Nov, Slow transit constipation K59.01 [facility] [id number] [place] [address] 97345- 7036 Nov, [facility] [address] [place] [id number] Nov, Anemia due to acute blood loss D62 [facility] [id number] [place] [address] 30292- 8816 Nov, [facility] [id number] [place] [address] 13348- 4669 Nov, Bladder spasms N32.89 [facility] [id number] [place] [address] 80889- 7356 Nov, Pain R52 [facility] [address] [place] [id number] Nov, Anemia due to acute blood loss D62 [facility] [id number] [place] [address] 38585- 5225 Nov, Pain in right hip M25.551 and Pain in left hip M25.552 [facility] [id number] [place] [address] 01921- 9146 Nov, [facility] [id number] [place] [address] 61449- 5556 Nov, [facility] [id number] [place] [address] 49518- 4466 Nov, [facility] [id number] [place] [address] 925454- 5556 Nov, [facility] [id number] [place] [address] 27868- 1736 Oct, [facility] [id number] [place] [address] 33976- 0349 Oct, [facility] [address] [place] [id number] Oct, Encounter for examination for admission to residential Z02.2 ; Chronic kidney disease, unspecified CKD stage N18.9 ; Type 2 diabetes mellitus with unspecified complications E11.8 ; nursing home 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.4 ; Essential hypertension I10 ; Hypoxia R09.02 ; Severe sleep apnea G47.30 ; Stenosis of carotid artery, unspecified laterality I65.29 ; Generalized osteoarthritis M15.9 ; Coronary artery disease involving [place] coronary artery of [place] heart, angina presence unspecified I25.10 ; Port catheter in place Z95.828 and Hemorrhoids, unspecified hemorrhoid type K64.9 [facility] [address] 17737- 4714 Oct, [facility] [address] 84294- 9161 Oct, [facility] [address] 02626- 0397 Oct, [facility] [address] 36415- 9723 Oct, [facility] [address] [address] September, BMI 50.0-59.9, adult Z68.43 [facility] [address] 30045- 0043 September, [facility] [address] 60103- 7666 September, [facility] [address] 91006- 9422 Aug, Type 2 diabetes mellitus with foot ulcer E11.621 ; Transient cerebral ischemia, unspecified type G45.9 ; Essential hypertension I10 ; Mixed hyperlipidemia E78.2 and BMI 50.0-59.9, adult Z68.43 [facility] [address] 85499- 5431 Aug, [facility] [id number] [place] [address] 24196- 5060 14 Jul, 2017 Anxiety about health F41.8 and Mixed hyperlipidemia E78.2 [facility] [id number] [place] [address] 96674- 5578 13 Jul, 2017 [facility] [address] 30900- 8573 Jun, [facility] [id number] [place] [address] 08391- 8279 Jun, Type 2 diabetes mellitus with hyperglycemia E11.65 ; Type 2 diabetes mellitus with foot ulcer E11.621 ; Port catheter in place Z95.828 ; 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 ; Contact with and (suspected) exposure to potentially hazardous body fluids Z77.21 and BMI 50.0-59.9, adult Z68.43 [facility] [id number] [place] [address] 67205- 5060 May, [facility] [id number] [place] [address] 72821- 5816 May, Open wound of right great toe, subsequent encounter S91.101D [facility] [id number] [place] [address] 71615- 8898 May, [facility] [id number] [place] [address] 75123- 4337 Apr, [facility] [id number] [place] [address] 59916- 9473 Apr, [facility] [address] 60487- 0803 Apr, [facility] [id number] [place] [address] 44665- 4752 14 Apr, 2017 Type 2 diabetes mellitus with diabetic polyneuropathy E11.42 [facility] [id number] [place] [address] 26689- 8097 Apr, Open wound of right great toe, subsequent encounter S91.101D [facility] [id number] [place] [address] 62943- 7244 08 Apr, 2017 Open wound of right great toe, subsequent encounter S91.101D ; Breast pain, left N64.4 ; Breast cancer screening Z12.31 ; Type 2 diabetes mellitus with foot ulcer E11.621 ; Essential hypertension I10 and BMI 50.0-59.9, adult Z68.43 [facility] [id number] [place] [address] 89991- 7451 Mar, Encounter for immunization Z23 [address] [address]- 4263 Mar, [facility] [id number] [place] [address] 29769- 3719 Mar, [facility] [id number] [place] [address] 72753- 7115 Mar, Type 2 diabetes mellitus with diabetic polyneuropathy E11.42 ; Type 2 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 ; Type 2 diabetes mellitus with foot ulcer E11.621 ; Essential hypertension I10 ; Hypoxemia R09.02 and Generalized osteoarthritis M15.9 [facility] [id number] [place] [address] 31873- 0072 02 Mar, 2017 Chronic kidney disease, stage 3 (moderate) N18.3 ; Acute cystitis without hematuria N30.00 ; Essential hypertension I10 ; Muscle spasms of neck M62.838 ; Type 2 diabetes mellitus with diabetic polyneuropathy E11.42 and BMI 50.0-59.9, adult Z68.43 [facility] [id number] [place] [address] 75279- 5432 Feb, [facility] [id number] [place] [address] 90549 -8514 Feb, [facility] [address] 82473- 2662 Feb, [facility] [address] [address]- 1021 Feb, [facility] [id number] [place] [address] 35894- 4451 Feb, [facility] [id number] [place] [address] 94086- 3897 Feb, [facility] [id number] [place] [address] 05981- 6294 Feb, Mixed hyperlipidemia E78.2 [facility] [id number] [place] [address] 79554- 7509 Feb, [facility] [id number] [place] [address] 58836- 7492 Jan, [facility] [id number] [place] [address] 07307- 3218 Jan, Generalized osteoarthritis M15.9 [facility] [id number] [place] [address] 54241- 9712 Oct, [facility] [id number] [place] [address] 72662- 1064 Jul, [facility] [address] [address]- 1112 Jul, [facility] [id number] [place] [address] 36785- 0443 Jul, Type 2 diabetes mellitus with hyperglycemia E11.65 ; Chronic kidney disease, stage 3 (moderate) N18.3 ; Type 2 diabetes mellitus with foot ulcer E11.621 ; Type 2 diabetes mellitus with diabetic polyneuropathy E11.42 ; Generalized osteoarthritis M15.9 ; Trochanteric bursitis of left hip M70.62 and Tinea pedis of both feet B35.3 [facility] [address], [place] [address]- 0771 Jun, [facility] [id number] [place] [address] 23338- 7618 Apr, [facility] [address] 42562- 9567 Apr, [facility] [address] 53055- 0190 Mar, [facility] [address] 68201- 0140 Feb, Encounter for immunization Z23 [facility] [address] 83080- 5489 18 Feb, 2016 [facility] [address] 53509- 7976 14 Feb, 2016 Type 2 diabetes mellitus with hyperglycemia E11.65 ; Encounter for immunization Z23 ; Diarrhea, unspecified type R19.7 ; Essential hypertension I10 ; Mixed hyperlipidemia E78.2 ; Hypoxia R09.02 ; 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 and Type 2 diabetes mellitus with foot ulcer E11.621 [facility] [address] 26930- 5335 Jan, [facility] [address] 29052- 8322 Jan, Type 2 diabetes mellitus with hyperglycemia E11.65 and Pneumonia due to infectious organism, unspecified laterality, unspecified part of lung J18.9 [facility] [id number] [place] [address] 82421- 7090 Jan, [facility] [id number] [place] [address] 16276- 3716 Jan, [facility] [address] 94739- 4880 Oct, Type 2 diabetes mellitus with hyperglycemia E11.65 ; Generalized osteoarthritis M15.9 and Chronic prescription opiate use Z79.891 [facility] [address] 18355- 5078 September, [facility] [address] [address]- 0976 Aug, [facility] [id number] [place] [address] 07624- 2326 Aug, [facility] [id number] [place] [address] 33460- 6329 Aug, [facility] [id number] [place] [address] 79855- 7985 Aug, [facility] [id number] [place] [address] 60375- 7343 Jun, [facility] [id number] [place] [address] 32344- 5114 Jun, Type 2 diabetes mellitus with hyperglycemia E11.65 ; Mixed hyperlipidemia E78.2 ; Vaginal itching L29.8 ; Neck muscle spasm M62.838 and Skin abrasion T14.8 [facility] [id number] [place] [address] 93751- 6833 Apr, [facility] [id number] [place] [address] 23674- 5919 Apr, [facility] [id number] [place] [address] 84461- 7699 Mar, [facility] [id number] [place] [address] 51938- 8621 Feb, [facility] [id number] [place] [address] 77364- 9465 Feb, Type 2 diabetes mellitus with hyperglycemia E11.65 ; Type 2 diabetes mellitus with foot ulcer E11.621 ; Type 2 diabetes mellitus with diabetic polyneuropathy E11.42 and Encounter for immunization Z23 [facility] [address] [address]- 4704 Jan, Hypertension 401.9 ; Uncontrolled type 2 diabetes mellitus 250.02 ; Right shoulder pain 719.41 and Ulcer of heel and midfoot 707.14 [facility] [address] [address]- 6860 Dec, Diabetes with other specified manifestations, type II or unspecified type, not stated as uncontrolled 250.80 ; Ulcer of heel and midfoot 707.14 ; Hypertension 401.9 ; Hip pain, left 719.45 and Acute anxiety 300.00 [facility] [address] [address]- 7293 Nov, [facility] [id number] [place] [address] 271711- 2011 Nov, [facility] [id number] [place] [address] 22578- 2669 September, Anxiety attack 300.01 and Cellulitis 682.9 [facility] [id number] [place] [address] 050224- 8727 September, [facility] [id number] [place] [address] 24419- 2440 September, [facility] [id number] [place] [address] 71960- 7255 September, [facility] [id number] [place] [address] [id number]- 7804 Aug, [facility] [address], [place] [address]- 8728 Aug, [facility] [address] [address]- 3838 Jul, [facility] [address] [address]- 1233 Jul, [facility] [id number] [place] [address] 89461- 9980 Jul, [facility] [address], [place] [address]- 9571 May, [facility] [id number] [place] [address] 81806- 7098 May, [facility] [place] [facility] [address] [id number] [place] [address]- 4077 Mar, [facility] [place] [facility] [address] [id number] [place] [address]- 4744 Mar, [facility] [place] [facility] [address] [facility] [id number] [place] [address]- 4016 Mar, [facility] [place] [facility] [address] [id number] [place] [address]- 1938 Mar, [facility] [place] [facility] [address] [id number] [place] [address]- 1320 Mar, [facility] [place] [facility] [address] [id number] [place] [address]- 4474 Mar, [facility] [place] [facility] [address] [id number] [place] [address]- 0713 Mar, [facility] [place] [facility] [address] [id number], [place] [address]- 9926 14 Feb, 2014 [facility] [place] [facility] [address] [id number] [place] [address]- 2746 14 Feb, 2014 [facility] [place] [facility] [address] [id number], [place] [address]- 5421 30 Jan, 2014 [facility] [place] [facility] [address] [id number], [place] [address]- 0970 30 Jan, 2013 [facility] [place] [facility] [address] [id number], [place] [address]- 5879 26 Jan, 2013 [facility] [place] [facility] [address] [id number] [place] [address]- 2546 26 Jan, 2014 [facility] [place] [facility] [address] [id number], [place] [address]- 7289 25 Jan, 2014 [facility] [place] [facility] [address] [id number], [place] [address]- 1251 25 Jan, 2014 [facility] [place] [facility] [address] [id number] [place] [address]- 7746 25 Sep, 2013 [facility] [place] [facility] [address] [id number] [place] [address] 2546 25 Sep, 2013 [facility] [place] [facility] [address] [id number] [place] [address] 2546 18 Sep, 2013 [facility] [place] [facility] [address] [id number] [place] [address] 2543 18 Sep, 2013 [facility] [place] [facility] [address] [id number] [place] [address] 2542 06 Sep, 2013 [facility] [place] [facility] [address] [id number] [place] [address]- 9900 06 Sep, 2013 [facility] [place] [facility] [address] [id number] [place] [address]- 5605 05 Sep, 2013 [facility] [place] [facility] [address] [id number] [place] [address]- 9720 05 Sep, 2013 [facility] [place] [facility] [address] [id number] [place] [address] 2545 05 Sep, 2013 [facility] [place] [facility] [address] [id number] [place] [address] 2540 05 Sep, 2013 [facility] [place] [facility] [address] [id number] [place] [address] 2543 05 Sep, 2013 [facility] [place] [facility] [address] [id number] [place] [address] 2547 05 Sep, 2013 [facility] [place] [facility] [address] [id number] [place] [address]- 2547 Dec, 2013 [facility] [place] [facility] [address] [id number] [place] [address] 2543 Dec, 2013 [facility] [place] [facility] [address] [id number] [place] [address]- 2545 Dec, 2013 [facility] [place] [facility] [address] [id number] [place] [address]- 4836 Dec, [facility] [place] [facility] [address] [id number] [place] [address]- 1510 Dec, [facility] [place] [facility] [address] [id number] [place] [address]- 1685 Dec, [facility] [place] [facility] [address] [id number] [place] [address]- 4869 Dec, [facility] [place] [facility] [address] [id number] [place] [address]- 5188 Dec, [facility] [place] [facility] [address] [id number] [place] [address]- 6584 Dec, [facility] [place] [facility] [address] [id number] [place] [address]- 1532 Dec, [facility] [place] [facility] [address] [id number] [place] [address]- 8134 Nov, [facility] [place] [facility] [address] [id number] [place] [address]- 0580 Nov, [facility] [place] [facility] [address] [id number] [place] [address]- 1764 Nov, [facility] [place] [facility] [address] [id number] [place] [address]- 2929 Nov, [facility] [place] [facility] [address] [id number] [place] [address]- 7847 Nov, [facility] [place] [facility] [address] [id number] [place] [address]- 5485 Nov, [facility] [place] [facility] [address] [id number] [place] [address]- 9230 Oct, [facility] [place] [facility] [address] [id number] [place] [address]- 8125 Oct, [facility] [place] [facility] [address] [id number] [place] [address]- 1200 Oct, [facility] [place] [facility] [address] [id number] [place] [address]- 7615 Oct, [facility] [place] [facility] [address] [id number] [place] [address]- 5006 Oct, [facility] [place] [facility] [address] [id number] [place] [address]- 8247 Oct, [facility] [place] [facility] [address] [id number] [place] [address]- 0197 Oct, [facility] [place] [facility] [address] [id number] [place] [address]- 6496 Oct, [facility] [place] [facility] [address] [id number] [place] [address]- 2813 Oct, [facility] [place] [facility] [address] [id number] [place] [address]- 9163 Oct, [facility] [place] [facility] [address] [id number] [place] [address]- 0255 Oct, [facility] [place] [facility] [address] [id number] [place] [address]- 0476 Oct, [facility] [place] [facility] [address] [id number] [place] [address]- 2620 September, [facility] [place] [facility] [address] [id number] [place] [address]- 8539 September, [facility] [place] [facility] [address] [id number] [place] [address]- 7844 September, [facility] [place] [facility] [address] [id number] [place] [address]- 8010 Aug, [facility] [place] [facility] [address] [id number] [place] [address]- 7514 Aug, [facility] [place] [facility] [address] [id number] [place] [address]- 9499 Jul, [facility] [place] [facility] [address] [id number] [place] [address] Jul, [facility] [place] [facility] [address] [id number] [place] [address] 10 Jul, 2013 [facility] [place] [facility] [address] [id number] [place] [address] Jul, [facility] [place] [facility] [address] [id number] [place] [address] Jul, [facility] [place] [facility] [address] [id number] [place] [address] Jul, [facility] [place] [facility] [address] [id number] [place] [address] Jul, [facility] [place] [facility] [address] [id number] [place] [address] Jul, [facility] [place] [facility] [address] [id number] [place] [address] Jul, [facility] [place] [facility] [address] [id number] [place] [address] Jul, [facility] [place] [facility] [address] [id number] [place] [address] Jun, [facility] [place] [facility] [address] [id number] [place] [address] Jun, [facility] [place] [facility] [address] [id number] [place] [address] Jun, [facility] [place] [facility] [address] [id number] [place] [address] Jun, [facility] [place] [facility] [address] [id number] [place] [address] May, [facility] [place] [facility] [address] [id number] [place] [address] May, [facility] [place] [facility] [address] [id number] [place] [address] Apr, [facility] [place] [facility] [address] [id number] [place] [address] Apr, [facility] [address] [id number] [place] [address] Apr, [facility] [place] [facility] [address] [id number] [place] [address] Apr, [facility] [place] [facility] [address] [facility] [id number] [place] [address] Apr, [facility] [place] [facility] [address] [id number] [place] [address] Apr, [facility] [place] [facility] [address] [id number] [place] [address] Apr, [facility] [place] [facility] [address] [id number] [place] [address] Apr, [facility] [place] [facility] [address] [address] [id number], [place] [address] Mar, [facility] [place] [facility] [address] [id number], [place] [address] Mar, [facility] [place] [facility] [address] [id number], [place] [address] Mar, [facility] [place] [facility] [address] [id number], [place] [address] Mar, [facility] [place] [facility] [address] [id number], [place] [address] Mar, [facility] [place] [facility] [address] [id number], [place] [address] Mar, [facility] [place] [facility] [address] [id number], [place] [address] Feb, [facility] [place] [facility] [address] [id number], [place] [address] Feb, [facility] [place] [facility] [address] [facility] [id number], [place] [address] Feb, [facility] [place] [facility] [address] [id number] [place] [address] 6[address] 18 Feb, 2013 [facility] [place] [facility] [address] [id number] [place] [address]- 4281 14 Feb, 2013 [facility] [place] [facility] [address] [id number] [place] [address]- 8501 14 Feb, 2013 [facility] [place] [facility] [address] [id number] [place] [address]- 8313 04 Feb, 2013 [facility] [place] [facility] [address] [id number] [place] [address]- 4384 27 Jan, 2013 [facility] [place] [facility] [address] [id number] [place] [address]- 5555 26 Jan, 2013 [facility] [place] [facility] [address] [id number] [place] [address]- 1944 19 Jan, 2013 [facility] [place] [facility] [address] [id number] [place] [address]- 1574 05 Jan, 2013 [facility] [place] [facility] [address] [id number] [place] [address]- 6439 Dec, [facility] [place] [facility] [address] [id number] [place] [address]- 6137 Dec, [facility] [place] [facility] [address] [id number] [place] [address]- 6504 Dec, [facility] [place] [facility] [address] [id number] [place] [address]- 5978 Nov, [facility] [place] [facility] [address] [id number] [place] [address]- 0224 Nov, [facility] [place] [facility] [address] [id number] [place] [address]- 7301 16 Nov, 2012 [facility] [place] [facility] [address] [id number] [place] [address]- 1734 Nov, [facility] [place] [facility] [address] [id number] [place] [address]- 9978 Nov, [facility] [place] [facility] [address] [id number] [place] [address]- 1421 Nov, [facility] [address] [id number] [place] [address]- 7311 Oct, [facility] [address] [id number] [place] [address]- 9530 Oct, [facility] [address] [id number] [place] [address] 1977 Oct, [facility] [address] [id number] [place] [address]- 9238 Oct, [facility] [address] [id number] [place] [address]- 7970 Oct, [facility] [address] [id number] [place] [address]- 9909 Oct, [facility] [address] [id number] [place] [address]- 7561 September, [facility] [address] [id number] [place] [address]- 8113 September, [facility] [address] [id number] [place] [address]- 3944 September, [facility] [address] [id number] [place] [address]- 8826 September, [facility] [address] [id number] [place] [address]- 3737 Aug, [facility] [place] [facility] [address] [id number] [place] [address]- 1745 Aug, [facility] [place] [facility] [address] [id number] [place] [address]- 9487 Jul, [facility] [place] [facility] [address] [id number] [place] [address]- 9683 Jul, [facility] [place] [facility] [address] [id number] [place] [address]- 9981 18 Jul, 2012 [facility] [address] [id number] [place] [address]- 0852 15 Jul, 2012 [facility] [address] [id number] [place] [address]- 2656 13 Jul, 2012 [facility] [address] [id number] [place] [address]- 3366 08 Jul, 2012 [facility] [address] [id number] [place] [address]- 6601 20 Jun, 2012 [facility] [address] [id number] [place] [address]- 5743 13 Jun, 2012 [facility] [address] [id number] [place] [address]- 1570 17 May, 2012 [facility] [address] [facility] [id number] [place] [address]- 6642 May, [facility] [address] [id number] [place] [address]- 7243 18 Apr, 2012 [facility] [address] [id number] [place] [address]- 2495 18 Apr, 2012 [facility] [address] [facility] [id number] [place] [address]- 5903 Apr, [facility] [address] [id number] [place] [address]- 6377 13 Apr, 2012 [facility] [place] [facility] [address] [id number] [place] [address]- 7812 10 Apr, 2012 [facility] [place] [facility] [address] [id number] [place] [address]- 3067 10 Apr, 2012 [facility] [place] [facility] [address] [id number] [place] [address] 07 Apr, 2012 [facility] [place] [facility] [address] [facility] [id number] [place] [address]308 07 Apr, 2012 [facility] [place] [facility] [address] [id number] [place] [address]- 7529 Apr, [facility] [place] [facility] [address] [id number] [place] [address] Apr, [facility] [place] [facility] [address] [id number] [place] [address]- 2946 Apr, [facility] [place] [facility] [address] [id number] [place] [address]- 3371 Apr, [facility] [place] [facility] [address] [id number] [place] [address]- 8690 Apr, [facility] [place] [facility] [address] [id number] [place] [address]- 8499 Apr, [facility] [place] [facility] [address] [id number] [place] [address]- 5181 Apr, [facility] [place] [facility] [address] [id number] [place] [address]- 1385 Apr, [facility] [place] [facility] [address] [id number] [place] [address]- 4816 Mar, [facility] [place] [facility] [address] [id number] [place] [address]- 5758 Mar, [facility] [place] [facility] [address] [facility] [id number] [place] [address]- 3368 Mar, [facility] [place] [facility] [address] [id number] [place] [address]- 1945 Mar, [facility] [place] [facility] [address] [id number] [place] [address]- 4283 Mar, [facility] [place] [facility] [address] [id number] [place] [address]- 1756 Mar, [facility] [place] [facility] [address] [id number] [place] [address]- 4416 Mar, [facility] [place] [facility] [address] [id number] [place] [address]- 6159 Mar, [facility] [place] [facility] [address] [id number] [place] [address]- 0809 Mar, [facility] [place] [facility] [address] [id number] [place] [address]- 5016 Mar, [facility] [place] [facility] [address] [id number] [place] [address]- 5462 Feb, [facility] [place] [facility] [address] [id number] [place] [address]- 8576 Feb, [facility] [place] [facility] [address] [id number] [place] [address]- 2633 Feb, [facility] [place] [facility] [address] [id number] [place] [address]- 8932 Feb, [facility] [place] [facility] [address] [id number] [place] [address]- 4852 Feb, [facility] [place] [facility] [address] [id number] [place] [address]- 0550 Feb, [facility] [place] [facility] [address] [id number] [place] [address]- 8755 Jan, [facility] [place] [facility] [address] [id number] [place] [address]- 7419 Dec, [facility] [place] [facility] [address] [id number] [place] [address]- 6984 Dec, [facility] [place] [facility] [address] [id number], [place] [address]- 1394 Dec, [facility] [place] [facility] [address] [id number] [place] [address]- 1326 Dec, [facility] [place] [facility] [address] [id number] [place] [address]- 1460 Nov, [facility] [place] [facility] [address] [id number] [place] [address]- 2542 Nov, [facility] [place] [facility] [address] [id number] [place] [address]- 7559 Nov, [facility] [address] [id number] [place] [address]- 5925 Nov, [facility] [place] [facility] [address] [id number] [place] [address]- 2755 Oct, [facility] [place] [facility] [address] [id number] [place] [address]- 8781 Oct, [facility] [place] [facility] [address] [id number] [place] [address]- 4151 Oct, [facility] [place] [facility] [address] [id number] [place] [address]- 3850 Oct, [facility] [place] [facility] [address] [id number] [place] [address]- 1019 Oct, [facility] [address] [id number] [place] [address]- 4381 September, [facility] [address] [id number] [place] [address]- 4146 September, [facility] [address] [id number] [place] [address]- 9737 September, [facility] [address] [id number] [place] [address]- 1081 September, [facility] [place] [facility] [address] [id number] [place] [address]- 1658 September, [facility] [place] [facility] [address] [id number] [place] [address]- 6480 September, [facility] [place] [facility] [address] [id number] [place] [address]- 7769 September, [facility] [place] [facility] [address] [id number] [place] [address]- 8486 September, [facility] [place] [facility] [address] [id number] [place] [address]- 3797 Aug, [facility] [place] [facility] [address] [id number] [place] [address]- 7438 25 Aug, 2011 [facility] [place] [facility] [address] [id number] [place] [address]- 5732 Aug, [facility] [place] [facility] [address] [id number] [place] [address]- 2479 Aug, [facility] [place] [facility] [address] [id number] [place] [address]- 2794 18 Aug, 2011 [facility] [address] [id number] [place] [address]- 5990 17 Aug, 2011 [facility] [place] [facility] [address] [id number] [place] [address]- 2213 13 Aug, 2011 [facility] [place] [facility] [address] [id number] [place] [address]- 2269 Aug, [facility] [place] [facility] [address] [id number] [place] [address]- 8015 10 Aug, 2011 [facility] [place] [facility] [address] [id number] [place] [address]- 7447 Aug, [facility] [place] [facility] [address] [id number] [place] [address]- 9287 Aug, [facility] [place] [facility] [address] [id number] [place] [address]- 6019 Aug, [facility] [place] [facility] [address] [id number] [place] [address]- 7652 29 Jul, 2011 [facility] [place] [facility] [address] [id number] [place] [address]- 0683 28 Jul, 2011 [facility] [place] [facility] [address] [id number] [place] [address]- 6775 27 Jul, 2011 [facility] [place] [facility] [address] [id number] [place] [address]- 9057 23 Jul, 2011 [facility] [place] [facility] [address] [id number] [place] [address]- 9486 Jul, [facility] [address] [id number] [place] [address]- 4077 Jul, [facility] [place] [facility] [address] [id number] [place] [address]- 0018 14 Jul, 2011 [facility] [address] [facility] [id number] [place] [address]- 4696 Jul, [facility] [address] [id number] [place] [address]- 0007 07 Jul, 2011 [facility] [address] [id number] [place] [address]- 0925 24 Jun, 2011 [facility] [place] [facility] [address] [id number] [place] [address]- 9267 23 Jun, 2011 [facility] [address] [facility] [id number] [place] [address]- 7103 23 Jun, 2011 [facility] [place] [facility] [address] [id number] [place] [address]- 7392 14 Jun, 2011 [facility] [address] [facility] [id number] [place] [address]- 6113 02 Jun, 2011 [facility] [address] [facility] [id number] [place] [address]- 1072 02 Jun, 2011 [facility] [place] [facility] [address] [facility] [id number] [place] [address]- 5638 Jun, [facility] [place] [facility] [address] [id number] [place] [address]- 1088 May, [facility] [place] [facility] [address] [id number] [place] [address]- 4518 May, [facility] [place] [facility] [address] [facility] [id number] [place] [address]- 8466 May, [facility] [place] [facility] [address] [facility] [id number] [place] [address]- 7749 May, [facility] [place] [facility] [address] [id number] [place] [address]- 7189 May, [facility] [address] [id number] [place] [address]- 7094 May, [facility] [place] [facility] [address] [id number] [place] [address]- 0926 May, [facility] [address] [id number] [place] [address]- 8751 Apr, [facility] [place] [facility] [address] [id number] [place] [address]- 0284 Apr, [facility] [place] [facility] [address] [id number] [place] [address]- 8592 Apr, [facility] [place] [facility] [address] [id number] [place] [address]- 2213 Apr, [facility] [address] [id number] [place] [address]- 3479 Apr, [facility] [place] [facility] [address] [id number] [place] [address]- 1978 Apr, [facility] [place] [facility] [address] [id number] [place] [address]- 1952 Apr, [facility] [place] [facility] [address] [id number] [place] [address]- 0042 Apr, [facility] [place] [facility] [address] [id number] [place] [address]- 7106 Apr, [facility] [place] [facility] [address] [id number] [place] [address]- 9290 Mar, [facility] [place] [facility] [address] [id number] [place] [address]- 0208 Mar, [facility] [place] [facility] [address] [id number] [place] [address]- 9506 Mar, [facility] [place] [facility] [address] [id number] [place] [address]- 0573 17 Mar, 2011 [facility] [place] [facility] [address] [id number] [place] [address]- 1939 Mar, [facility] [place] [facility] [address] [id number] [place] [address]- 1206 Feb, [facility] [place] [facility] [address] [id number] [place] [address]- 9256 Feb, [facility] [place] [facility] [address] [id number] [place] [address]- 3691 Feb, [facility] [place] [facility] [address] [id number] [place] [address]- 7948 Dec, [facility] [place] [facility] [address] [id number] [place] [address]- 0956 Nov, [facility] [place] [facility] [address] [id number] [place] [address]- 3158 Apr, [facility] [place] [facility] [address] [id number] [place] [address]- 9410 Apr, [facility] [place] [facility] [address] [id number] [place] [address]- 0193 16 Apr, 2010 [facility] [place] [facility] [address] [id number] [place] [address]- 5037 Apr, [facility] [place] [facility] [address] [id number] [place] [address]- 9322 Apr, [facility] [place] [facility] [address] [id number], [place] [address]- 5506 Apr, [facility] [place] [facility] [address] [id number] [place] [address]- 2726 Apr, [facility] [place] [facility] [address] [id number] [place] [address]- 7157 Apr, [facility] [place] [facility] [address] [id number] [place] [address]- 0206 Mar, [facility] [place] [facility] [id number], [place] [address]- 2524 Mar, [facility] [id number], [place] [address]- 9954 Mar, [facility] [id number], [place] [address]- 9679 Mar, [facility] [id number], [place] [address]- 8813 Mar, [facility] [id number], [place] [address]- 0876 Mar, [facility] [id number] [place] [address] 9400 Mar, [facility] [id number], [place] [address]- 0599 Mar, [facility] [id number], [place] [address]- 0500 Mar, [facility] [id number], [place] [address]- 8070 Mar, IMMUNIZATIONS No Known Immunizations SOCIAL HISTORY [...]
--- OUTSIDE RECORDS SUMMARY | 2018-04-22 23:13 | XMS REPORT ---
Author Author RICHMOND MARY [facility] Address [address] [place] [address] Care Team Providers Care Sales And Service Specialist Name Role Phone RICHMOND MARY Unavailable PROBLEMS Type Condition ICD9-CM Code VXN26-SS Code Onset Dates Condition Status SNOMED Code Problem Severe sleep apnea G47.30 Active 42662411 Problem Iron deficiency anemia, unspecified iron deficiency anemia type D50.9 Active 98926548 Problem Decreased diffusion capacity R94.2 Active 24558486 Problem Stenosis of carotid artery, unspecified laterality I65.29 Active 63559115 Problem Coronary artery disease involving [place] coronary artery of [place] heart, angina presence unspecified I25.10 Active 7622462112732 Problem Generalized osteoarthritis M15.9 Active 666307463 Problem Hypoxemia R09.02 Active 344792543 Problem Aortic valve sclerosis I35.8 Active 93453511 Problem BMI 50.0-59.9, adult Z68.43 Active 086277401 Problem Essential hypertension I10 Active 90131945 Problem Port catheter in place Z95.828 Active 005379381 Problem Anxiety about health F41.8 Active 770940053 Problem Transient cerebral ischemia, unspecified type G45.9 Active 988607259 Problem Slow transit constipation K59.01 Active 92732489 Problem Bladder spasms N32.89 Active 561870872 Problem 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 Active 4180572 Problem Renal osteodystrophy N25.0 Active 61779433 Problem Mixed hyperlipidemia E78.2 Active 944573674 Problem Type 2 diabetes mellitus with unspecified complications E11.8 Active 64345866 Problem Chronic kidney disease, unspecified CKD stage N18.9 Active 252805107 Problem Pain R52 Active 40834772 Problem 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 Active 476928620 Problem Type 2 diabetes mellitus with foot ulcer E11.621 Active 936242852 Problem Type 2 diabetes mellitus with diabetic polyneuropathy E11.42 Active 286253173 Problem Type 2 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 Active 13961036 Problem Type 2 diabetes mellitus with hyperglycemia E11.65 Active 60862908 Problem Diarrhea, unspecified type R19.7 Active 78428302 Problem Trochanteric bursitis of left hip M70.62 Active 019911921233593 Problem Anemia in other chronic diseases classified elsewhere D63.8 Active 947813919 Problem Chronic kidney disease, stage 3 (moderate) N18.3 Active 526082896 ALLERGIES No Information ENCOUNTERS Encounter Location Date Diagnosis [facility] [id number] [place] [address] 15368- 3367 Dec, [facility] [address] [place], [place] [id number] Dec, Type 2 diabetes mellitus with hyperglycemia E11.65 ; Essential hypertension I10 ; Generalized osteoarthritis M15.9 ; Mixed hyperlipidemia E78.2 ; Hypoxia R09.02 ; Port catheter in place Z95.828 ; Anemia due to acute blood loss D62 ; Chronic kidney disease, unspecified CKD stage N18.9 and Severe sleep apnea G47.30 [facility] [id number] [place] [address] 19487- 9630 Dec, Type 2 diabetes mellitus with hyperglycemia E11.65 [facility] [id number] [place] [address] 41176- 6241 Dec, [facility] [id number] [place] [address] 23787- 0278 Dec, Type 2 diabetes mellitus with hyperglycemia E11.65 [facility] [id number] [place] [address] 79799- 3474 Dec, Left leg pain M79.605 [facility] [address] 64488- 9752 Nov, Slow transit constipation K59.01 [facility] [id number] [place] [address] 94357- 6646 Nov, [facility] [address] [place] [id number] Nov, Anemia due to acute blood loss D62 [facility] [address], [place] [address] Nov, [facility] [address] [address] 4[address] Nov, Bladder spasms N32.89 [facility] [address], [place] [address] 9[address] Nov, Pain R52 [employer] [address] [place] [id number] Nov, Anemia due to acute blood loss D62 [facility] [address], [place] [address] 20[address] Nov, Pain in right hip M25.551 and Pain in left hip M25.552 [facility] [address] [address] 7564 Nov, [facility] [address] [address] 0412 Nov, [facility] [address] [address] 3548 Nov, [facility] [address], [place] [address] 0245 Nov, [facility] [address], [place] [address] 0462 Oct, [facility] [address], [place] [address] 00[address] Oct, [employer] [address] [place] [id number] Oct, Encounter for examination for admission to senior living Z02.2 ; Chronic kidney disease, unspecified CKD stage N18.9 ; Type 2 diabetes mellitus with unspecified complications E11.8 ; 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 coronary artery of [place] heart, angina presence unspecified I25.10 ; Port catheter in place Z95.828 and Hemorrhoids, unspecified hemorrhoid type K64.9 [facility] [id number] [place] [address] 06276- 6078 Oct, [facility] [id number] [place] [address] 66677- 1415 Oct, [facility] [id number] [place] [address] 09203- 1480 Oct, [facility] [id number] [place] [address] 99646- 2965 Oct, [facility] [id number] [place] [address] 13417 -9893 September, BMI 50.0-59.9, adult Z68.43 [facility] [id number] [place] [address] 79234- 8617 September, [facility] [id number] [place] [address] 20447- 9907 September, [facility] [id number] [place] [address] 41477- 9185 Aug, Type 2 diabetes mellitus with foot ulcer E11.621 ; Transient cerebral ischemia, unspecified type G45.9 ; Essential hypertension I10 ; Mixed hyperlipidemia E78.2 and BMI 50.0-59.9, adult Z68.43 [facility] [id number] [place] [address] 96875- 7213 Aug, [facility] [id number] [place] [address] 56350- 7392 14 Jul, 2017 Anxiety about health F41.8 and Mixed hyperlipidemia E78.2 [facility] [id number] [place] [address] 76838- 0231 Jul, [facility] [id number] [place] [address] 15788- 5441 Jun, [facility] [id number] [place] [address] 99335- 7276 12 Jun, 2018 Type 2 diabetes mellitus with hyperglycemia E11.65 ; Type 2 diabetes mellitus with foot ulcer E11.621 ; Port catheter in place Z95.828 ; 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 ; Contact with and (suspected) exposure to potentially hazardous body fluids Z77.21 and BMI 50.0-59.9, adult Z68.43 [facility] [id number] [place] [address] 43400- 6203 May, [facility] [id number] [place] [address] 41847- 4813 May, Open wound of right great toe, subsequent encounter S91.101D [facility] [id number] [place] [address] 24846- 2986 May, [facility] [id number] [place] [address] 91849- 2196 Apr, [facility] [id number] [place] [address] 84402- 8447 Apr, [facility] [id number] [place] [address] 53802- 4774 14 Apr, 2017 [facility] [id number] [place] [address] 07555- 7466 14 Apr, 2017 Type 2 diabetes mellitus with diabetic polyneuropathy E11.42 [facility] [id number] [place] [address] 35171- 2403 13 Apr, 2017 Open wound of right great toe, subsequent encounter S91.101D [facility] [id number] [place] [address] 51061- 6841 08 Apr, 2017 Open wound of right great toe, subsequent encounter S91.101D ; Breast pain, left N64.4 ; Breast cancer screening Z12.31 ; Type 2 diabetes mellitus with foot ulcer E11.621 ; Essential hypertension I10 and BMI 50.0-59.9, adult Z68.43 [facility] [id number] [place] [address] 76395- 4641 29 Mar, 2017 Encounter for immunization Z23 [facility] [address] 78071- 6230 Mar, [facility] [id number] [place] [address] 03570- 8653 Mar, [facility] [address] 79846- 8983 10 Mar, 2017 Type 2 diabetes mellitus with diabetic polyneuropathy E11.42 ; Type 2 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 ; Type 2 diabetes mellitus with foot ulcer E11.621 ; Essential hypertension I10 ; Hypoxemia R09.02 and Generalized osteoarthritis M15.9 [facility] [id number] [place] [address] 27446- 0298 02 Mar, 2017 Chronic kidney disease, stage 3 (moderate) N18.3 ; Acute cystitis without hematuria N30.00 ; Essential hypertension I10 ; Muscle spasms of neck M62.838 ; Type 2 diabetes mellitus with diabetic polyneuropathy E11.42 and BMI 50.0-59.9, adult Z68.43 [facility] [id number] [place] [address] 46178- 8369 Feb, [facility] [id number] [place] [address] 84216 -9571 Feb, [facility] [id number] [place] [address] 15018- 2486 Feb, [facility] [id number] [place] [address] 47195- 3042 Feb, [facility] [id number] [place] [address] 86296- 9223 Feb, [facility] [id number] [place] [address] 76948- 3513 Feb, [facility] [id number] [place] [address] 80102- 9459 Feb, Mixed hyperlipidemia E78.2 [facility] [address], [place] [address]- 0829 Feb, [facility] [address] [place] [address] 558296- 9099 Jan, [facility] [id number] [place] [address] 18063- 6283 Jan, Generalized osteoarthritis M15.9 [facility] [id number] [place] [address] 24911- 1102 Oct, [facility] [id number] [place] [address] 96256- 5132 Jul, [facility] [id number] [place] [address] 99373- 7154 Jul, [facility] [id number] [place] [address] 17477- 5753 Jul, Type 2 diabetes mellitus with hyperglycemia E11.65 ; Chronic kidney disease, stage 3 (moderate) N18.3 ; Type 2 diabetes mellitus with foot ulcer E11.621 ; Type 2 diabetes mellitus with diabetic polyneuropathy E11.42 ; Generalized osteoarthritis M15.9 ; Trochanteric bursitis of left hip M70.62 and Tinea pedis of both feet B35.3 [facility] [address], [place] [address]- 6279 Jun, [facility] [id number], [place] [address]- 0841 Apr, [facility] [address], [place] [address]- 7536 Apr, [facility] [id number] [place] [address] 22735- 8929 Mar, [facility] [address], [place] [address]- 0609 Feb, Encounter for immunization Z23 [facility] [id number] [place] [address] 89738- 2507 18 Feb, 2016 [facility] [id number] [place] [address] 02041- 4315 14 Feb, 2016 Type 2 diabetes mellitus with hyperglycemia E11.65 ; Encounter for immunization Z23 ; Diarrhea, unspecified type R19.7 ; Essential hypertension I10 ; Mixed hyperlipidemia E78.2 ; Hypoxia R09.02 ; 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 and Type 2 diabetes mellitus with foot ulcer E11.621 [facility] [id number] [place] [address] 11750- 8295 23 Jan, 2016 [facility] [address] 86058- 0016 Jan, Type 2 diabetes mellitus with hyperglycemia E11.65 and Pneumonia due to infectious organism, unspecified laterality, unspecified part of lung J18.9 [facility] [id number] [place] [address] 81733- 9779 Jan, [facility] [id number] [place] [address] 09632- 9505 16 Jan, 2016 [facility] [id number] [place] [address] 75956- 1368 Oct, Type 2 diabetes mellitus with hyperglycemia E11.65 ; Generalized osteoarthritis M15.9 and Chronic prescription opiate use Z79.891 [facility] [id number] [place] [address] 49997- 8854 September, [facility] [id number] [place] [address] 34427- 0898 Aug, [facility] [id number] [place] [address] 55256- 7394 Aug, [facility] [id number] [place] [address] 79573- 8136 Aug, [facility] [id number] [place] [address] 16605- 6646 Aug, [facility] [id number] [place] [address] 26895- 7572 Jun, [facility] [address] 08536- 9627 Jun, Type 2 diabetes mellitus with hyperglycemia E11.65 ; Mixed hyperlipidemia E78.2 ; Vaginal itching L29.8 ; Neck muscle spasm M62.838 and Skin abrasion T14.8 [facility] [address] 30528- 3897 Apr, [facility] [address] 63285- 7731 Apr, [facility] [address] 65778- 5615 Mar, [facility] [address] 84257- 5903 Feb, [facility] [address] 10232- 0675 Feb, Type 2 diabetes mellitus with hyperglycemia E11.65 ; Type 2 diabetes mellitus with foot ulcer E11.621 ; Type 2 diabetes mellitus with diabetic polyneuropathy E11.42 and Encounter for immunization Z23 [facility] [id number] [place] [address] 97599- 0793 Jan, Hypertension 401.9 ; Uncontrolled type 2 diabetes mellitus 250.02 ; Right shoulder pain 719.41 and Ulcer of heel and midfoot 707.14 [facility] [id number] [place] [address] 14530- 8282 Dec, Diabetes with other specified manifestations, type II or unspecified type, not stated as uncontrolled 250.80 ; Ulcer of heel and midfoot 707.14 ; Hypertension 401.9 ; Hip pain, left 719.45 and Acute anxiety 300.00 [facility] [id number] [place] [address] 95120- 6734 Nov, [facility] [address] 39708- 3049 Nov, [facility] [address] [id number] [place] [address]- 3451 September, Anxiety attack 300.01 and Cellulitis 682.9 [facility] [address] [id number] [place] [address] 2546 September, [facility] [address] [id number] [place] [address]- 0356 September, [facility] [address] [id number] [place] [address]- 2546 September, [facility] [address] [id number] [place] [address]- 3650 Aug, [facility] [address] [facility] [id number] [place] [address]- 3911 Aug, [facility] [address] [facility] [id number] [place] [address]- 8921 Jul, [facility] [address] [facility] [id number] [place] [address]- 4411 Jul, [facility] [address] [facility] [id number] [place] [address]- 0180 Jul, [facility] [id number] [address]- 3597 May, [facility] [address] [facility] [id number] [place] [address]- 4326 May, [facility] [address] [id number] [place] [address]- 1726 Mar, [facility] [address] [id number] [place] [address]- 2596 Mar, [facility] [address] [facility] [id number] [place] [address]- 2546 Mar, [facility] [address] [facility] [id number] [place] [address]- 1154 Mar, [facility] [place] [facility] [address] [id number] [place] [address]- 3646 Mar, [facility] [place] [facility] [address] [id number] [place] [address]- 6823 Mar, [facility] [place] [facility] [address] [id number] [place] [address]- 5730 Mar, [facility] [place] [facility] [address] [id number] [place] [address]- 2464 14 Feb, 2014 [facility] [place] [facility] [address] [id number] [place] [address]- 1225 14 Feb, 2014 [facility] [place] [facility] [address] [id number] [place] [address]- 0619 30 Jan, 2014 [facility] [place] [facility] [address] [id number] [place] [address]- 8807 30 Jan, 2014 [facility] [place] [facility] [address] [id number] [place] [address]- 2670 26 Jan, 2014 [facility] [place] [facility] [address] [id number] [place] [address]- 5347 26 Jan, 2014 [facility] [place] [facility] [address] [id number] [place] [address]- 2426 25 Jan, 2014 [facility] [place] [facility] [address] [id number] [address]- 3895 25 Jan, 2013 [facility] [place] [facility] [address] [id number], [place] [address]- 3388 25 Jan, 2013 [facility] [place] [facility] [address] [id number] [place] [address]- 8822 25 Jan, 2014 [facility] [place] [facility] [address] [id number], [place] [address]- 4699 18 Jan, 2013 [facility] [place] [facility] [address] [id number] [place] [address]- 7511 18 Jan, 2013 [facility] [place] [facility] [address] [id number] [place] [address]- 9603 06 Sep, 2013 [facility] [place] [facility] [address] [id number] [place] [address]- 4903 06 Sep, 2013 [facility] [place] [facility] [address] [id number] [place] [address]- 0926 Sep, 2013 [facility] [place] [facility] [address] [id number] [place] [address]- 1575 05 Sep, 2013 [facility] [place] [facility] [address] [id number] [place] [address]- 2297 05 Sep, 2013 [facility] [place] [facility] [address] [id number] [place] [address]- 0503 05 Sep, 2013 [facility] [place] [facility] [address] [id number] [place] [address]- 3263 Sep, 2013 [facility] [place] [facility] [address] [id number] [place] [address]- 6402 Jan, 2013 [facility] [place] [facility] [address] [id number] [place] [address]- 9115 Dec, 2013 [facility] [place] [facility] [address] [id number] [place] [address]- 1613 Dec, 2013 [facility] [place] [facility] [address] [id number] [place] [address]- 1949 Dec, 2013 [facility] [place] [facility] [address] [id number] [place] [address]- 9406 Dec, 2013 [facility] [place] [facility] [address] [id number] [place] [address]- 4304 Dec, 2013 [facility] [place] [facility] [address] [id number] [place] [address]- 5780 Dec, 2013 [facility] [place] [facility] [address] [id number] [place] [address]- 8104 Dec, 2013 [facility] [place] [facility] [address] [id number] [place] [address]- 4328 07 Dec, 2013 [facility] [place] [facility] [address] [id number] [place] [address]- 0913 Dec, [facility] [place] [facility] [address] [id number] [place] [address]- 3527 Dec, [facility] [place] [facility] [address] [id number] [place] [address]- 6270 Nov, [facility] [place] [facility] [address] [id number] [place] [address]- 1323 Nov, [facility] [place] [facility] [address] [id number] [place] [address]- 7860 Nov, [facility] [place] [facility] [address] [id number] [place] [address]- 9877 Nov, [facility] [place] [facility] [address] [id number] [place] [address]- 8601 Nov, [facility] [place] [facility] [address] [id number] [place] [address]- 5686 Nov, [facility] [place] [facility] [address] [id number] [place] [address]- 1485 Oct, [facility] [place] [facility] [address] [id number] [place] [address]- 4659 Oct, [facility] [place] [facility] [address] [id number] [place] [address]- 4675 Oct, [facility] [place] [facility] [address] [id number] [place] [address]- 9314 Oct, [facility] [place] [facility] [address] [id number] [place] [address]- 3906 Oct, [facility] [place] [facility] [address] [id number] [place] [address]- 9551 Oct, [facility] [place] [facility] [address] [id number] [place] [address]- 0236 Oct, [facility] [place] [facility] [address] [id number] [place] [address]- 6632 Oct, [facility] [place] [facility] [address] [id number] [place] [address]- 9085 Oct, [facility] [place] [facility] [address] [id number] [place] [address]- 8902 Oct, [facility] [place] [facility] [address] [id number] [place] [address]- 0699 Oct, [facility] [place] [facility] [address] [id number] [place] [address]- 8248 Oct, [facility] [place] [facility] [address] [id number] [place] [address]- [address] September, [facility] [place] [facility] [address] [id number] [place] [address] September, [facility] [place] [facility] [address] [id number] [place] [address] September, [facility] [place] [facility] [address] [id number] [place] [address] Aug, [facility] [place] [facility] [address] [id number] [place] [address] Aug, [facility] [place] [facility] [address] [id number] [place] [address] Jul, [facility] [place] [facility] [address] [id number] [place] [address] Jul, [facility] [place] [facility] [address] [id number] [place] [address] Jul, [facility] [place] [facility] [address] [id number] [place] [address] Jul, [facility] [place] [facility] [address] [id number] [place] [address] Jul, [facility] [place] [facility] [address] [id number] [place] [address] Jul, [facility] [place] [facility] [address] [id number] [place] [address] Jul, [facility] [place] [facility] [address] [id number] [place] [address] Jul, [facility] [place] [facility] [address] [id number] [place] [address] Jul, [facility] [place] [facility] [address] [id number] [place] [address] Jul, [facility] [place] [facility] [address] [id number] [place] [address] Jun, [facility] [place] [facility] [address] [id number] [place] [address] Jun, [facility] [place] [facility] [address] [id number] [place] [address] Jun, [facility] [place] [facility] [address] [id number] [place] [address] Jun, [facility] [place] [facility] [address] [id number] [place] [address] May, [facility] [place] [facility] [address] [id number] [place] [address] May, [facility] [place] [facility] [address] [facility] [id number] [place] [address] Apr, [facility] [place] [facility] [address] [id number] [place] [address] Apr, [facility] [place] [facility] [address] [id number] [place] [address] Apr, [facility] [place] [facility] [address] [id number] [place] [address] Apr, [facility] [place] [facility] [address] [id number] [place] [address] 2546 Apr, [facility] [place] [facility] [address] [id number] [place] [address] 60[address] Apr, [facility] [place] [facility] [address] [id number] [place] [address] 55[address] Apr, [facility] [place] [facility] [address] [id number] [place] [address] 8569 Apr, [facility] [place] [facility] [address] [id number] [place] [address] Mar, [facility] [place] [facility] [address] [id number] [place] [address] 1458 Mar, [facility] [place] [facility] [address] [id number] [place] [address] 7085 Mar, [facility] [place] [facility] [address] [id number] [place] [address] 2309 Mar, [facility] [place] [facility] [address] [id number] [place] [address] 2739 Mar, [facility] [place] [facility] [address] [id number], [place] [address] 6[address] Mar, [facility] [place] [facility] [address] [id number] [place] [address] 0501 Feb, [facility] [place] [facility] [address] [id number], [place] [address] 30 Feb, 2013 [facility] [place] [facility] [address] [id number], [place] [address] 2859 Feb, [facility] [place] [facility] [address] [id number], [place] [address] 9236 Feb, [facility] [place] [facility] [address] [id number], [place] [address] 95[address] Feb, [facility] [place] [facility] [address] [id number], [place] [address] 14 Feb, 2013 [facility] [place] [facility] [address] [id number], [place] [address] 655[address] Feb, [facility] [place] [facility] [address] [id number] [place] [address]- 4535 27 Jan, 2013 [facility] [address] [id number] [place] [address]- 1207 26 Jan, 2013 [facility] [place] [facility] [address] [id number] [place] [address]- 7366 Jan, [facility] [address] [id number] [place] [address]- 2723 05 Jan, 2013 [facility] [place] [facility] [address] [id number] [place] [address]- 3530 Dec, [facility] [place] [facility] [address] [id number] [place] [address]- 2269 Dec, [facility] [place] [facility] [address] [id number] [place] [address]- 6110 Dec, [facility] [address] [id number] [place] [address]- 3509 Nov, [facility] [place] [facility] [address] [id number] [place] [address]- 8326 Nov, [facility] [place] [facility] [address] [id number] [place] [address]- 2256 Nov, [facility] [place] [facility] [address] [id number] [place] [address]- 3825 Nov, [facility] [place] [facility] [address] [id number] [place] [address]- 8231 Nov, [facility] [place] [facility] [address] [id number] [place] [address]- 6343 Nov, [facility] [place] [facility] [address] [id number] [place] [address]- 2563 Oct, [facility] [place] [facility] [address] [id number] [place] [address]- 8398 Oct, [facility] [place] [facility] [address] [id number] [place] [address]- 9023 Oct, [facility] [place] [facility] [address] [id number] [place] [address]- 1631 Oct, [facility] [address] [id number] [place] [address]- 9974 Oct, [facility] [place] [facility] [address] [id number] [place] [address]- 5363 Oct, [facility] [address] [id number] [place] [address]- 8584 September, [facility] [address] [id number] [place] [address]- 5065 September, [facility] [address] [id number] [place] [address]- 2570 September, [facility] [address] [id number] [place] [address]- 9845 September, [facility] [address] [id number] [place] [address]- 1807 Aug, [facility] [address] [id number] [place] [address]- 5708 Aug, [facility] [address] [id number] [place] [address]- 6773 Jul, [facility] [place] [facility] [address] [id number] [place] [address] 4517 Jul, [facility] [place] [facility] [address] [id number] [place] [address]- 9742 18 Jul, 2012 [facility] [place] [facility] [address] [id number] [place] [address]- 7226 15 Jul, 2012 [facility] [place] [facility] [address] [id number] [place] [address]- 3918 13 Jul, 2012 [facility] [place] [facility] [address] [id number] [place] [address]- 4681 08 Jul, 2012 [facility] [place] [facility] [address] [id number] [place] [address]- 4466 20 Jun, 2012 [facility] [address] [id number] [place] [address]- 1706 Jun, [facility] [address] [id number] [place] [address]- 2056 May, [facility] [address] [id number] [place] [address]- 9236 May, [facility] [address] [id number] [place] [address]- 8672 Apr, [facility] [address] [id number] [place] [address]- 1715 Apr, [facility] [address] [id number] [place] [address]- 3583 Apr, [facility] [address] [id number] [place] [address]- 3123 Apr, [facility] [address] [id number] [place] [address]- 8332 Apr, [facility] [address] [id number] [place] [address]- 2766 Apr, [facility] [address] [id number] [place] [address]- 0908 Apr, [facility] [address] [id number] [place] [address]- 7944 Apr, [facility] [place] [facility] [address] [id number], [place] [address] Apr, [facility] [place] [facility] [address] [id number] [place] [address]- 1563 Apr, [facility] [place] [facility] [address] [id number] [place] [address]- 4124 Apr, [facility] [place] [facility] [address] [id number] [place] [address] Apr, [facility] [place] [facility] [address] [id number] [place] [address]- 5295 05 Apr, 2012 [facility] [place] [facility] [address] [id number] [place] [address]- 4371 Apr, [facility] [place] [facility] [address] [id number] [place] [address]- 2280 Apr, [facility] [place] [facility] [address] [id number] [place] [address]- 1874 Apr, [facility] [place] [facility] [address] [id number] [place] [address]- 8556 Mar, [facility] [place] [facility] [address] [id number] [place] [address]- 2064 Mar, [facility] [place] [facility] [address] [id number] [place] [address]- 7382 Mar, [facility] [place] [facility] [address] [id number] [place] [address]- 4283 Mar, [facility] [place] [facility] [address] [id number] [place] [address]- 9677 Mar, [facility] [place] [facility] [address] [id number] [place] [address]- 6137 Mar, [facility] [place] [facility] [address] [facility] [id number] [place] [address]- 8839 Mar, [facility] [place] [facility] [address] [id number] [place] [address]- 1999 Mar, [facility] [place] [facility] [address] [id number] [place] [address]- 7667 Mar, [facility] [place] [facility] [address] [id number] [place] [address]- 9976 Mar, [facility] [place] [facility] [address] [id number] [place] [address]- 7517 Feb, [facility] [place] [facility] [address] [id number] [place] [address] 1953 Feb, [facility] [place] [facility] [address] [id number] [place] [address]- 4534 Feb, [facility] [place] [facility] [address] [id number] [place] [address]- 9755 Feb, [facility] [place] [facility] [address] [id number] [place] [address]- 2671 Feb, [facility] [place] [facility] [address] [id number] [place] [address]- 4107 Feb, [facility] [place] [facility] [address] [id number] [place] [address]- 0671 Jan, [facility] [place] [facility] [address] [id number] [place] [address]- 6826 Dec, [facility] [place] [facility] [address] [id number] [place] [address]- 4628 Dec, [facility] [place] [facility] [address] [id number] [place] [address]- 3734 Dec, [facility] [place] [facility] [address] [id number] [place] [address]- 3199 Dec, [facility] [place] [facility] [address] [id number] [place] [address]- 2380 Nov, [facility] [place] [facility] [address] [id number] [place] [address]- 9924 Nov, [facility] [place] [facility] [address] [id number] [place] [address]- 7832 Nov, [facility] [place] [facility] [address] [id number] [place] [address]- 4799 Nov, [facility] [place] [facility] [address] [id number] [place] [address]- 8387 Oct, [facility] [place] [facility] [address] [id number] [place] [address]- 9428 Oct, [facility] [place] [facility] [address] [id number] [place] [address]- 7971 Oct, [facility] [address] [id number] [place] [address]- 8845 Oct, [facility] [address] [id number] [place] [address]- 7638 Oct, [facility] [address] [id number] [place] [address]- 9128 September, [facility] [address] [id number] [place] [address]- 0877 September, [facility] [address] [id number] [place] [address]- 3342 September, [facility] [address] [id number] [place] [address]- 5931 September, [facility] [address] [id number] [place] [address]- 3012 September, [facility] [address] [id number] [place] [address]- 2267 September, [facility] [address] [id number] [place] [address]- 5662 September, [facility] [address] [id number] [place] [address]- 4697 September, [facility] [address] [id number] [place] [address]- 6982 Aug, [facility] [place] [facility] [address] [id number] [place] [address]- 7715 Aug, [facility] [place] [facility] [address] [id number] [place] [address]- 5360 Aug, [facility] [place] [facility] [address] [id number] [place] [address]- 9394 Aug, [facility] [address] [id number] [place] [address]- 2869 Aug, [facility] [place] [facility] [address] [id number] [place] [address]- 6046 17 Aug, 2011 [facility] [place] [facility] [address] [id number] [place] [address]- 7726 13 Aug, 2011 [facility] [place] [facility] [address] [id number] [place] [address]- 2546 12 Aug, 2011 [facility] [place] [facility] [address] [id number] [place] [address]- 4126 10 Aug, 2011 [facility] [place] [facility] [address] [id number] [place] [address] 2541 09 Aug, 2011 [facility] [place] [facility] [address] [id number] [place] [address]- 2855 02 Aug, 2011 [facility] [place] [facility] [address] [id number] [place] [address]- 8976 02 Aug, 2011 [facility] [place] [facility] [address] [id number] [place] [address]- 2865 29 Jul, 2011 [facility] [place] [facility] [address] [id number] [place] [address]- 4621 28 Jul, 2011 [facility] [place] [facility] [address] [id number] [place] [address]- 0090 27 Jul, 2011 [facility] [place] [facility] [address] [id number] [place] [address]- 2461 23 Jul, 2011 [facility] [place] [facility] [address] [id number] [place] [address]- 1446 21 Jul, 2011 [facility] [place] [facility] [address] [id number] [place] [address]- 1379 21 Jul, 2011 [facility] [place] [facility] [address] [id number] [place] [address] 2546 14 Jul, 2011 [facility] [place] [facility] [address] [id number] [place] [address]- 2546 13 Jul, 2011 [facility] [place] [facility] [address] [id number] [place] [address]- 0854 Jul, [facility] [address] [id number] [place] [address]- 1209 Jun, [facility] [place] [facility] [address] [id number] [place] [address]- 7776 Jun, [facility] [place] [facility] [address] [facility] [id number] [place] [address]- 9486 Jun, [facility] [place] [facility] [address] [id number] [place] [address]- 8712 Jun, [facility] [address] [id number] [place] [address]- 6982 Jun, [facility] [place] [facility] [address] [facility] [id number] [place] [address]- 8009 Jun, [facility] [address] [id number] [address]- 9485 Jun, [facility] [place] [facility] [address] [facility] [id number] [place] [address]- 9103 May, [facility] [address] [id number] [address]- 7887 May, [facility] [place] [facility] [address] [facility] [id number] [place] [address]- 3637 May, [facility] [address] [facility] [id number] [place] [address]- 0676 May, [facility] [place] [facility] [address] [facility] [id number], [place] [address]- 5269 May, [facility] [place] [facility] [address] [id number] [place] [address]- 0463 May, [facility] [place] [facility] [address] [facility] [id number] [place] [address]- 4112 May, [facility] [place] [facility] [address] [id number] [address]- 7036 Apr, [facility] [place] [facility] [address] [id number] [place] [address]- 5692 30 Apr, 2011 [facility] [place] [facility] [address] [id number] [place] [address]- 1556 Apr, [facility] [place] [facility] [address] [id number] [place] [address]- 5336 Apr, [facility] [place] [facility] [address] [id number] [place] [address]- 6926 Apr, [facility] [place] [facility] [address] [id number] [place] [address]- 7535 Apr, [facility] [place] [facility] [address] [id number] [place] [address]- 7206 Apr, [facility] [place] [facility] [address] [id number] [place] [address]- 3374 Apr, [facility] [place] [facility] [address] [id number] [place] [address]- 4529 Apr, [facility] [place] [facility] [address] [id number] [place] [address]- 3447 Mar, [facility] [place] [facility] [address] [id number] [place] [address]- 6126 Mar, [facility] [place] [facility] [address] [id number] [place] [address]- 0941 Mar, [facility] [place] [facility] [address] [id number] [place] [address]- 9593 Mar, [facility] [place] [facility] [address] [id number] [place] [address]- 3685 Mar, [facility] [place] [facility] [address] [id number] [place] [address]- 2266 Feb, [facility] [place] [facility] [address] [id number] [place] [address]- 1374 Feb, [facility] [place] [facility] [address] [id number] [place] [address]- 6415 Feb, [facility] [address] [id number] [place] [address]- 7575 Dec, [facility] [place] [facility] [address] [id number] [place] [address]- 6816 Nov, [facility] [place] [facility] [address] [id number] [place] [address]- 2264 Apr, [facility] [place] [facility] [address] [id number] [place] [address]- 5710 Apr, [facility] [place] [facility] [address] [id number] [place] [address]- 3853 16 Apr, 2010 [facility] [place] [facility] [address] [id number] [place] [address]- 7254 Apr, [facility] [place] [facility] [address] [id number] [place] [address]- 9036 Apr, [facility] [place] [facility] [address] [id number] [place] [address]- 1768 Apr, [facility] [place] [facility] [address] [id number] [place] [address]- 4767 Apr, [facility] [place] [facility] [address] [id number] [place] [address]- 7485 Apr, [facility] [place] [facility] [address] [id number], [place] [address]- 1414 Mar, [facility] [place] [facility] [address] [id number], [place] [address]- 2754 Mar, [facility] [place] [facility] [address] [id number] [place] [address]- 1808 Mar, [facility] [place] [facility] [address] [id number] [place] [address]- 5798 Mar, [facility] [place] [facility] [address] [id number] [place] [address]- 9081 Mar, [facility] [place] [facility] [address] [facility] [id number] [place] [address]- 6119 Mar, [facility] [address] [facility] [id number], [place] [address]- 2560 Mar, [facility] [address] [facility] [id number], [place] [address]- 5317 Mar, [facility] [address] [facility] [id number], [place] [address]- 4728 Mar, [facility] [address] [facility] [id number], [place] [address]- 6306 Mar, IMMUNIZATIONS No Known Immunizations SOCIAL HISTORY Never Assessed REASON FOR VISIT order PLAN OF CARE VITAL SIGNS MEDICATIONS Unknown [...]
--- OUTSIDE RECORDS SUMMARY | 2018-04-22 23:14 | XMS REPORT ---
Author Author RICHMOND MARY [facility] Address [address] [place] [address] Care Team Providers Care Barratte Operator Name Role Phone RICHMOND MARY Unavailable PROBLEMS Type Condition ICD9-CM Code CKL68-DW Code Onset Dates Condition Status SNOMED Code Problem Severe sleep apnea G47.30 Active 92753952 Problem Iron deficiency anemia, unspecified iron deficiency anemia type D50.9 Active 44196430 Problem Decreased diffusion capacity R94.2 Active 53937800 Problem Stenosis of carotid artery, unspecified laterality I65.29 Active 19183275 Problem Coronary artery disease involving jena coronary artery of jena heart, angina presence unspecified I25.10 Active [id number] Problem Generalized osteoarthritis M15.9 Active 340319997 Problem Hypoxemia R09.02 Active 666988017 Problem Aortic valve sclerosis I35.8 Active 26706196 Problem BMI 50.0-59.9, adult Z68.43 Active 270539839 Problem Essential hypertension I10 Active 64573422 Problem Port catheter in place Z95.828 Active 994840359 Problem Anxiety about health F41.8 Active 203796132 Problem Transient cerebral ischemia, unspecified type G45.9 Active 633813241 Problem Slow transit constipation K59.01 Active 09985138 Problem Bladder spasms N32.89 Active 993929984 Problem 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 Active 0253095 Problem Renal osteodystrophy N25.0 Active 80368581 Problem Mixed hyperlipidemia E78.2 Active 277446347 Problem Type 2 diabetes mellitus with unspecified complications E11.8 Active 74687671 Problem Chronic kidney disease, unspecified CKD stage N18.9 Active 654112474 Problem Pain R52 Active 01013654 Problem 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 Active 500568094 Problem Type 2 diabetes mellitus with foot ulcer E11.621 Active 761749457 Problem Type 2 diabetes mellitus with diabetic polyneuropathy E11.42 Active 350812862 Problem Type 2 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 Active 47353802 Problem Type 2 diabetes mellitus with hyperglycemia E11.65 Active 03630225 Problem Diarrhea, unspecified type R19.7 Active 27289469 Problem Trochanteric bursitis of left hip M70.62 Active 182234230740237 Problem Anemia in other chronic diseases classified elsewhere D63.8 Active 686299184 Problem Chronic kidney disease, stage 3 (moderate) N18.3 Active 998251358 ALLERGIES No Information ENCOUNTERS Encounter Location Date Diagnosis [facility] [address] [place], [place] [id number] Dec, Type 2 diabetes mellitus with hyperglycemia E11.65 ; Essential hypertension I10 ; Generalized osteoarthritis M15.9 ; Mixed hyperlipidemia E78.2 ; Hypoxia R09.02 ; Port catheter in place Z95.828 ; Anemia due to acute blood loss D62 ; Chronic kidney disease, unspecified CKD stage N18.9 and Severe sleep apnea G47.30 [place] [address] [address]- [address] Dec, Type 2 diabetes mellitus with hyperglycemia E11.65 [place] [address] 24652- 0126 Dec, [place] [address] [address]- 4675 Dec, Type 2 diabetes mellitus with hyperglycemia E11.65 [place] [address] 13832- 4163 Dec, Left leg pain M79.605 [place] [address] 05772- 5466 Nov, Slow transit constipation K59.01 [place] [address] 13045- 6742 Nov, [facility] [address] [place] [id number] Nov, Anemia due to acute blood loss D62 [place] [address] 66769- 1739 Nov, [place] [address] [address] Nov, Bladder spasms N32.89 [facility] [address] [address] Nov, Pain R52 [facility] [address], [place] [id number] Nov, Anemia due to acute blood loss D62 [facility] [address] [place] [id number] [place] [address] 39355- 5729 Nov, Pain in right hip M25.551 and Pain in left hip M25.552 [place] [address] [place] [id number] [place] [address] 37176- 4194 Nov, [facility] [address] [place] [address] 12424- 2622 Nov, [place] [address] [place] [id number] [place] [address] 54887- 9716 Nov, 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 [address] [place] [id number] [place] [address] 20461- 3413 Oct, [facility] [address]65[address] [address] 6[address] Oct, [facility] [id number] [place] [address] 36871- 5007 Oct, [facility] [address] [place] [address] 91802 -5490 September, BMI 50.0-59.9, adult Z68.43 [facility] [address] [place] [id number] [place] [address] 77200- 3310 September, [facility] [id number] [place] [address] 23998- 7804 September, [facility] [id number] [place] [address] 60726- 6937 Aug, Type 2 diabetes mellitus with foot ulcer E11.621 ; Transient cerebral ischemia, unspecified type G45.9 ; Essential hypertension I10 ; Mixed hyperlipidemia E78.2 and BMI 50.0-59.9, adult Z68.43 [facility] [address], [place] [address] 23[address] Aug, [facility] [address] [place] [address] 08490- 3120 Jul, Anxiety about health F41.8 and Mixed hyperlipidemia E78.2 [facility] [address], [place] [address] 1757 Jul, [facility] [id number] [place] [address] 23715- 8862 Jun, 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 [address] [place] [id number] [place] [address] 34372- 6152 May, [facility] [address] [place] [id number] [place] [address] 14757- 3863 May, Open wound of right great toe, subsequent encounter S91.101D [place] [address] 67559- 6444 May, [place] [address] [place] [id number] [place] [address] 59647- 8525 Apr, [place] [address] 53902- 1505 15 Apr, 2017 [place] [address] [place] [id number] [place] [address] 44605- 7686 14 Apr, 2017 [place] [address] [place] [id number] [place] [address] 16059- 0165 14 Apr, 2017 Type 2 diabetes mellitus with diabetic polyneuropathy E11.42 [facility] [address] [place] [id number] [place] [address] 05992- 1873 13 Apr, 2017 Open wound of right great toe, subsequent encounter S91.101D [facility] [address] [place] [id number] [place] [address] 40115- 9949 08 Apr, 2017 Open wound of right great toe, subsequent encounter S91.101D ; Breast pain, left N64.4 ; Breast cancer screening Z12.31 ; Type 2 diabetes mellitus with foot ulcer E11.621 ; Essential hypertension I10 and BMI 50.0-59.9, adult Z68.43 [facility] [address] [place] [id number] [place] [address] 18462- 3086 Mar, Encounter for immunization Z23 [facility] [address] [place] [id number] [place] [address] 22480- 5480 Mar, [facility] [address] [place] [id number] [place] [address] 62402- 6846 Mar, [facility] [address] [place] [id number] [place] [address] 80029- 8976 Mar, Type 2 diabetes mellitus with diabetic polyneuropathy E11.42 ; Type 2 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 ; Type 2 diabetes mellitus with foot ulcer E11.621 ; Essential hypertension I10 ; Hypoxemia R09.02 and Generalized osteoarthritis M15.9 [place] [address] 15078- 8606 Mar, Chronic kidney disease, stage 3 (moderate) N18.3 ; Acute cystitis without hematuria N30.00 ; Essential hypertension I10 ; Muscle spasms of neck M62.838 ; Type 2 diabetes mellitus with diabetic polyneuropathy E11.42 and BMI 50.0-59.9, adult Z68.43 [facility] [address] [place] [id number] [place] [address] 94405- 2625 Feb, [facility] [address] [place] [id number] [place] [address] 32157 -9193 Feb, [facility] [address] [place] [id number] [place] [address] 89667- 9066 Feb, [facility] [address] [place] [id number] [place] [address] 12788- 3395 Feb, [facility] [address] [place] [id number] [place] [address] 28963- 7419 Feb, [facility] [address] [place] [id number] [place] [address] 96454- 6110 Feb, [facility] [address] [place] [id number] [place] [address] 59133- 4125 Feb, Mixed hyperlipidemia E78.2 [facility] [address] 83807- 3393 Feb, [facility] [address], [place] [address]- 2470 Jan, [facility] [address] [place] [id number] [place] [address] 21293- 4115 Jan, Generalized osteoarthritis M15.9 [facility] [address] [place] [address] 33989- 2528 Oct, [facility] [address] [place] [id number] [place] [address] 48112- 1689 Jul, [facility] [address] [place] [id number] [place] [address] 89219- 5302 Jul, [facility] [address] [place] [id number] [place] [address] 31084- 7133 Jul, Type 2 diabetes mellitus with hyperglycemia E11.65 ; Chronic kidney disease, stage 3 (moderate) N18.3 ; Type 2 diabetes mellitus with foot ulcer E11.621 ; Type 2 diabetes mellitus with diabetic polyneuropathy E11.42 ; Generalized osteoarthritis M15.9 ; Trochanteric bursitis of left hip M70.62 and Tinea pedis of both feet B35.3 [facility] [address] [place] [address] 83073- 7781 Jun, [facility] [address], [place] [address]- 9182 Apr, [facility] [address] [place] [id number] [place] [address] 25572- 6295 Apr, [facility] [address] [place] [address] 77432- 6117 Mar, [facility] [address] [place] [id number] [place] [address] 26189- 8062 Feb, Encounter for immunization Z23 [facility] [address] [place] [address] 49831- 2344 Feb, 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 [address] [place] [id number] [place] [address] 31886- 3242 [address], [address] [facility] [address] [place] [id number] [place] [address] 79552- 3112 19 Jan, 2016 Type 2 diabetes mellitus with hyperglycemia E11.65 and Pneumonia due to infectious organism, unspecified laterality, unspecified part of lung J18.9 [place] [address] [place] [id number] [place] [address] 64968- 4930 19 Jan, 2016 [place] [address] [place] [id number] [place] [address] 25313- 2658 16 Jan, 2016 [facility] [address] [place] [id number] [place] [address] 06032- 0685 Oct, Type 2 diabetes mellitus with hyperglycemia E11.65 ; Generalized osteoarthritis M15.9 and Chronic prescription opiate use Z79.891 [facility] [address] [place] [id number] [place] [address] 53243- 3701 September, [place] [address] [place] [id number] [place] [address] 89129- 6890 Aug, [facility] [address] [place] [id number] [place] [address] 11807- 8313 Aug, [facility] [address] [place] [id number] [place] [address] 31425- 6116 Aug, [facility] [address] [place] [id number] [place] [address] 04557- 4711 Aug, [facility] [address] [place] [id number] [place] [address] 88018- 2477 Jun, [place] [address] [place] [id number] [place] [address] 81925- 2651 Jun, Type 2 diabetes mellitus with hyperglycemia E11.65 ; Mixed hyperlipidemia E78.2 ; Vaginal itching L29.8 ; Neck muscle spasm M62.838 and Skin abrasion T14.8 [place] [address] 89785- 5691 Apr, [place] [address] 23830- 1408 Apr, [place] [address] 47692- 2105 Mar, [place] [address] 65134- 0029 Feb, [place] [address] 25214- 6150 Feb, Type 2 diabetes mellitus with hyperglycemia E11.65 ; Type 2 diabetes mellitus with foot ulcer E11.621 ; Type 2 diabetes mellitus with diabetic polyneuropathy E11.42 and Encounter for immunization Z23 [place] [address] 35095- 8404 Jan, Hypertension 401.9 ; Uncontrolled type 2 diabetes mellitus 250.02 ; Right shoulder pain 719.41 and Ulcer of heel and midfoot 707.14 [place] [address] 70468- 5483 Dec, Diabetes with other specified manifestations, type II or unspecified type, not stated as uncontrolled 250.80 ; Ulcer of heel and midfoot 707.14 ; Hypertension 401.9 ; Hip pain, left 719.45 and Acute anxiety 300.00 [place] [address] 49929- 8496 Nov, [place] [address] [place] [id number] [place] [address] 22381- 1625 Nov, [place] [address] 58002- 4106 September, Anxiety attack 300.01 and Cellulitis 682.9 [facility] [address] [place] [id number] [place] [address] September, [facility] [address] [facility] [id number] [place] [address]- 7366 September, [facility] [address] [facility] [facility] [id number] [place] [address]- 4186 September, [facility] [address] [facility] [facility] [id number] [place] [address]- 4651 Aug, [facility] [address] [id number] [place] [address]- 8783 Aug, [facility] [address] [place] [id number] [place] [address]- 9784 Jul, [facility] [address] [place] [id number] [place] [address]- 2192 Jul, [facility] [address] [place] [id number] [place] [address]- 9667 Jul, [facility] [address] [place] [id number] [place] [address]- 1681 May, [facility] [address] [place] [id number] [place] [address]- 1516 May, [facility] [address] [place] [id number] [place] [address]- 0691 Mar, [facility] [address] [facility] [id number] [address]- 8840 Mar, [facility] [address] [place] [id number] [place] [address]- 2236 Mar, [facility] [address] [facility] [id number] [place] [address]- 2296 Mar, [facility] [id number] [address]- 4642 Mar, [facility] [place] [facility] [address] [id number] [place] [address]- 0785 07 Mar, 2014 [facility] [place] [facility] [address] [id number] [place] [address]- 9028 07 Mar, 2014 [facility] [place] [facility] [address] [id number] [place] [address]- 4008 14 Feb, 2014 [facility] [place] [facility] [address] [id number] [place] [address]- 2232 14 Feb, 2014 [facility] [place] [facility] [address] [id number] [place] [address]- 9083 30 Jan, 2013 [facility] [place] [facility] [address] [id number] [place] [address]- 5625 30 Jan, 2013 [facility] [place] [facility] [address] [id number] [place] [address]- 8151 26 Jan, 2013 [facility] [place] [facility] [address] [id number] [place] [address]- 6591 26 Jan, 2013 [facility] [place] [facility] [address] [id number] [place] [address]- 4398 25 Jan, 2013 [facility] [place] [facility] [address] [id number] [place] [address]- 0734 25 Jan, 2013 [facility] [place] [facility] [address] [id number], [place] [address]- 0966 25 Jan, 2013 [facility] [place] [facility] [address] [id number], [place] [address]- 3620 25 Jan, 2013 [facility] [place] [facility] [address] [id number] [place] [address]- 1633 18 Jan, 2013 [facility] [place] [facility] [address] [id number] [place] [address]- 8844 18 Jan, 2013 [facility] [place] [facility] [address] [id number] [place] [address]- 6927 06 Jan, 2013 [facility] [place] [facility] [address] [id number] [place] [address]- 4623 06 Sep, 2013 [facility] [place] [facility] [address] [id number] [place] [address]- 9054 05 Sep, 2013 [facility] [place] [facility] [address] [id number] [place] [address]- 6336 Sep, 2013 [facility] [place] [facility] [address] [id number] [place] [address]- 2651 05 Sep, 2013 [facility] [place] [facility] [address] [id number] [place] [address]- 4603 05 Sep, 2013 [facility] [place] [facility] [address] [id number] [place] [address]- 6743 05 Sep, 2013 [facility] [place] [facility] [address] [id number] [place] [address]- 4555 Jan, 2013 [facility] [place] [facility] [address] [id number] [place] [address]- 2906 Dec, 2013 [facility] [place] [facility] [address] [id number] [place] [address]- 7005 Dec, 2013 [facility] [place] [facility] [address] [id number] [place] [address]- 0727 Dec, 2013 [facility] [place] [facility] [address] [id number] [place] [address]- 7265 Dec, 2013 [facility] [place] [facility] [address] [id number] [place] [address]- 0644 Dec, 2013 [facility] [place] [facility] [address] [id number] [place] [address]- 3458 Dec, 2013 [facility] [place] [facility] [address] [id number] [place] [address]- 3460 Dec, 2013 [facility] [place] [facility] [address] [id number] [place] [address]- 1209 Dec, 2013 [facility] [place] [facility] [address] [id number] [place] [address]- 6684 04 Dec, 2013 [facility] [place] [facility] [address] [id number] [place] [address]- 0121 Dec, [facility] [place] [facility] [address] [id number] [place] [address]- 4811 Nov, [facility] [place] [facility] [address] [id number] [place] [address]- 9580 Nov, [facility] [place] [facility] [address] [id number] [place] [address]- 5676 Nov, [facility] [place] [facility] [address] [id number] [place] [address]- 9748 Nov, [facility] [place] [facility] [address] [id number] [place] [address]- 3392 Nov, [facility] [place] [facility] [address] [id number] [place] [address]- 9074 Nov, [facility] [place] [facility] [address] [id number] [place] [address]- 1091 Oct, [facility] [place] [facility] [address] [id number] [place] [address]- 7266 Oct, [facility] [place] [facility] [address] [id number] [place] [address]- 1194 Oct, [facility] [place] [facility] [address] [id number] [place] [address]- 5794 Oct, [facility] [place] [facility] [address] [id number] [place] [address]- 9948 Oct, [facility] [place] [facility] [address] [id number] [place] [address]- 4115 Oct, [facility] [place] [facility] [address] [id number] [place] [address]- 4506 Oct, [facility] [place] [facility] [address] [id number] [place] [address]- 09[address] Oct, [facility] [place] [facility] [address] [id number] [place] [address] Oct, [facility] [place] [facility] [address] [id number] [place] [address] Oct, [facility] [place] [facility] [address] [id number] [place] [address] Oct, [facility] [place] [facility] [address] [id number] [place] [address] Oct, [facility] [place] [facility] [address] [id number] [place] [address] September, [facility] [place] [facility] [address] [id number] [place] [address] September, [facility] [place] [facility] [address] [id number] [place] [address] September, [facility] [place] [facility] [address] [id number] [place] [address] Aug, [facility] [place] [facility] [address] [id number] [place] [address] Aug, [facility] [place] [facility] [address] [id number] [place] [address] Jul, [facility] [place] [facility] [address] [id number] [place] [address] Jul, [facility] [place] [facility] [address] [id number] [place] [address] Jul, [facility] [place] [facility] [address] [id number] [place] [address] Jul, [facility] [place] [facility] [address] [id number] [place] [address] Jul, [facility] [place] [facility] [address] [id number] [place] [address] Jul, [facility] [place] [facility] [address] [id number] [place] [address] Jul, [facility] [place] [facility] [address] [id number] [place] [address] Jul, [facility] [place] [facility] [address] [id number] [place] [address] Jul, [facility] [place] [facility] [address] [id number] [place] [address] Jul, [facility] [place] [facility] [address] [id number] [place] [address] Jun, [facility] [place] [facility] [address] [id number] [place] [address] Jun, [facility] [place] [facility] [address] [id number] [place] [address] Jun, [facility] [place] [facility] [address] [id number] [place] [address] Jun, [facility] [place] [facility] [address] [id number] [place] [address] May, [facility] [place] [facility] [address] [id number] [place] [address] May, [facility] [place] [facility] [address] [id number] [place] [address] Apr, [facility] [place] [facility] [address] [id number] [place] [address] Apr, [facility] [place] [facility] [address] [id number] [place] [address] Apr, [facility] [place] [facility] [address] [id number] [place] [address] Apr, [facility] [place] [facility] [address] [id number] [place] [address] Apr, [facility] [place] [facility] [address] [id number] [place] [address]- 2546 Apr, [facility] [place] [facility] [address] [id number] [place] [address] 2548 Apr, [facility] [place] [facility] [address] [id number] [place] [address] 8256 Apr, [facility] [place] [facility] [address] [id number] [place] [address] 1028 Mar, [facility] [place] [facility] [address] [id number] [place] [address] 7448 Mar, [facility] [place] [facility] [address] [id number] [place] [address] 4433 Mar, [facility] [place] [facility] [address] [id number] [place] [address]- 0366 Mar, [facility] [place] [facility] [address] [id number] [place] [address]- 8766 Mar, [facility] [place] [facility] [address] [id number] [place] [address] 4208 Mar, [facility] [place] [facility] [address] [id number] [address] 1535 Feb, [facility] [place] [facility] [address] [id number] [place] [address] 9547 30 Feb, 2013 [facility] [place] [facility] [address] [id number] [address] 4341 Feb, [facility] [place] [facility] [address] [id number] [address] 3538 Feb, [facility] [place] [facility] [address] [id number], [place] [address] 9[address] 14 Feb, 2013 [facility] [place] [facility] [address] [id number] [address] 0817 Feb, [facility] [place] [facility] [address] [id number], [place] [address] 1594 04 Feb, 2013 [facility] [place] [facility] [address] [id number] [address] 2217 27 Jan, 2013 [facility] [place] [facility] [address] [id number] [place] [address]- 5022 Jan, [facility] [address] [id number] [place] [address]- 9192 Jan, [facility] [place] [facility] [address] [id number] [place] [address]- 5437 Jan, [facility] [place] [facility] [address] [id number] [place] [address]- 4006 Dec, [facility] [place] [facility] [address] [id number] [place] [address]- 5998 Dec, [facility] [place] [facility] [address] [id number] [place] [address]- 5442 Dec, [facility] [place] [facility] [address] [id number] [place] [address]- 7043 Nov, [facility] [address] [id number] [place] [address]- 7085 Nov, [facility] [place] [facility] [address] [id number] [place] [address]- 6620 Nov, [facility] [place] [facility] [address] [id number] [place] [address]- 7329 Nov, [facility] [place] [facility] [address] [id number] [place] [address]- 4969 Nov, [facility] [place] [facility] [address] [id number] [place] [address]- 3183 Nov, [facility] [place] [facility] [address] [id number] [place] [address]- 9060 Oct, [facility] [place] [facility] [address] [id number] [place] [address]- 3733 Oct, [facility] [place] [facility] [address] [id number] [place] [address]- 2625 Oct, [facility] [place] [facility] [address] [id number] [place] [address]- 4572 Oct, [facility] [place] [facility] [address] [id number] [place] [address]- 9407 Oct, [facility] [address] [id number] [place] [address]- 2986 Oct, [facility] [address] [id number] [place] [address]- 9638 September, [facility] [address] [id number] [place] [address]- 1735 September, [facility] [address] [id number] [place] [address]- 4409 September, [facility] [address] [id number] [place] [address]- 3996 September, [facility] [address] [id number] [place] [address]- 0044 Aug, [facility] [address] [id number] [place] [address]- 3760 Aug, [facility] [address] [id number] [place] [address]- 0748 Jul, [facility] [address] [id number] [place] [address] 2228 Jul, [facility] [address] [id number] [place] [address]- 5747 Jul, [facility] [address] [id number] [place] [address]- 1155 15 Jul, 2012 [facility] [address] [id number] [place] [address]- 4491 Jul, [facility] [place] [facility] [address] [id number] [place] [address]- 9376 08 Jul, 2012 [facility] [place] [facility] [address] [id number] [place] [address]- 2384 Jun, [facility] [address] [id number] [place] [address]- 7228 13 Jun, 2012 [facility] [address] [id number] [place] [address]- 7859 May, [facility] [place] [facility] [address] [id number] [place] [address]- 1136 May, [facility] [address] [id number] [place] [address]- 5156 18 Apr, 2012 [facility] [place] [facility] [address] [id number] [place] [address]- 5873 18 Apr, 2012 [facility] [address] [id number] [place] [address]- 8249 13 Apr, 2012 [facility] [place] [facility] [address] [id number] [place] [address]- 7687 Apr, [facility] [address] [id number] [place] [address]- 6840 Apr, [facility] [place] [facility] [address] [id number] [place] [address]- 4347 Apr, [facility] [address] [id number] [place] [address]- 4852 Apr, [facility] [place] [facility] [address] [id number] [place] [address]- 1108 Apr, [facility] [place] [facility] [address] [id number] [place] [address]- 7611 Apr, [facility] [place] [facility] [address] [id number] [place] [address]- 3869 Apr, [facility] [place] [facility] [address] [id number] [place] [address]- 2526 Apr, [facility] [place] [facility] [address] [id number] [place] [address]- 8679 07 Apr, 2012 [facility] [place] [facility] [address] [id number] [place] [address]99 05 Apr, 2012 [facility] [place] [facility] [address] [id number] [place] [address]- 0569 05 Apr, 2012 [facility] [place] [facility] [address] [id number] [place] [address]- 5678 Apr, [facility] [place] [facility] [address] [id number] [place] [address]- 0807 Apr, [facility] [place] [facility] [address] [id number] [place] [address]- 0551 Mar, [facility] [place] [facility] [address] [id number] [place] [address]- 3307 Mar, [facility] [place] [facility] [address] [id number] [place] [address]- 4626 Mar, [facility] [place] [facility] [address] [address] [facility] [id number] [place] [address]- 5162 Mar, [facility] [place] [facility] [address] [id number] [place] [address]- 1807 Mar, [facility] [place] [facility] [address] [id number] [place] [address]- 2657 Mar, [facility] [place] [facility] [address] [id number] [place] [address]- 8558 Mar, [facility] [place] [facility] [address] [facility] [id number] [place] [address]- 9975 Mar, [facility] [place] [facility] [address] [id number] [place] [address]- 7048 Mar, [facility] [place] [facility] [address] [id number] [place] [address]- 0525 Mar, [facility] [place] [facility] [address] [id number] [place] [address]- 5258 Feb, [facility] [place] [facility] [address] [id number] [place] [address]- 4506 Feb, [facility] [place] [facility] [address] [id number] [place] [address]- 8544 Feb, [facility] [place] [facility] [address] [id number] [place] [address]- 6915 Feb, [facility] [place] [facility] [address] [id number] [place] [address]- 2298 Feb, [facility] [place] [facility] [address] [id number] [place] [address]- 4167 Feb, [facility] [place] [facility] [address] [id number] [place] [address]- 6381 Jan, [facility] [place] [facility] [address] [id number] [place] [address]- 9114 Dec, [facility] [place] [facility] [address] [id number] [place] [address]- 0137 Dec, [facility] [place] [facility] [address] [id number] [place] [address]- 7951 Dec, [facility] [place] [facility] [address] [id number] [place] [address]- 2673 Dec, [facility] [place] [facility] [address] [id number] [place] [address]- 5191 Nov, [facility] [place] [facility] [address] [id number] [place] [address]- 9546 Nov, [facility] [place] [facility] [address] [id number] [place] [address]- 4126 Nov, [facility] [place] [facility] [address] [id number] [place] [address]- 9718 Nov, [facility] [place] [facility] [address] [id number] [place] [address]- 0413 Oct, [facility] [place] [facility] [address] [id number] [place] [address]- 9332 Oct, [facility] [place] [facility] [address] [id number] [place] [address]- 9875 Oct, [facility] [place] [facility] [address] [id number] [place] [address]- 3285 Oct, [facility] [address] [id number] [place] [address]- 5046 Oct, [facility] [address] [id number] [place] [address]- 1569 September, [facility] [address] [id number] [place] [address]- 4794 September, [facility] [address] [id number] [place] [address]- 2687 September, [facility] [address] [id number] [place] [address]- 5532 September, [facility] [address] [id number] [place] [address]- 0586 September, [facility] [address] [id number] [place] [address]- 1496 September, [facility] [address] [id number] [place] [address]- 0142 September, [facility] [address] [id number] [place] [address]- 4854 September, [facility] [address] [id number] [place] [address]- 6751 Aug, [facility] [address] [id number] [place] [address]- 6126 Aug, [facility] [place] [facility] [address] [id number] [place] [address]- 0046 Aug, [facility] [place] [facility] [address] [id number] [place] [address]- 8527 Aug, [facility] [place] [facility] [address] [id number] [place] [address]- 1522 Aug, [facility] [address] [id number] [place] [address]- 5628 17 Aug, 2011 [facility] [place] [facility] [address] [id number] [place] [address]- 8894 13 Aug, 2011 [facility] [place] [facility] [address] [id number] [place] [address]- 5746 12 Aug, 2011 [facility] [place] [facility] [address] [id number] [place] [address]- 2336 10 Aug, 2011 [facility] [place] [facility] [address] [id number] [place] [address]- 9996 09 Aug, 2011 [facility] [place] [facility] [address] [id number] [place] [address]- 1034 02 Aug, 2011 [facility] [place] [facility] [address] [id number] [place] [address]- 9628 02 Aug, 2011 [facility] [place] [facility] [address] [id number] [place] [address]- 3188 29 Jul, 2011 [facility] [place] [facility] [address] [id number] [place] [address]- 0204 28 Jul, 2011 [facility] [place] [facility] [address] [id number] [place] [address]- 6302 27 Jul, 2011 [facility] [place] [facility] [address] [id number] [place] [address]- 4213 23 Jul, 2011 [facility] [place] [facility] [address] [id number] [place] [address]- 1783 21 Jul, 2011 [facility] [place] [facility] [address] [id number] [place] [address]- 7795 21 Jul, 2011 [facility] [place] [facility] [address] [id number] [place] [address]- 9430 14 Jul, 2011 [facility] [place] [facility] [address] [id number] [place] [address]- 9246 13 Jul, 2011 [facility] [place] [facility] [address] [id number] [place] [address]- 0516 07 Jul, 2011 [facility] [place] [facility] [address] [id number] [place] [address]- 9509 Jun, [facility] [address] [id number] [place] [address]- 1946 Jun, [facility] [place] [facility] [address] [id number] [place] [address]- 3076 Jun, [facility] [place] [facility] [address] [address] [facility] [id number] [place] [address]- 8326 Jun, [facility] [place] [facility] [address] [id number] [place] [address]- 7777 Jun, [facility] [place] [facility] [address] [id number] [place] [address]- 6586 Jun, [facility] [place] [facility] [address] [facility] [id number] [place] [address]- 5486 Jun, [facility] [id number] [address]- 2680 May, [facility] [place] [facility] [address] [facility] [id number] [place] [address]- 4385 May, [facility] [address] [id number] [place] [address]- 8371 May, [facility] [place] [facility] [address] [facility] [id number] [place] [address]- 1956 May, [facility] [address] [facility] [id number] [place] [address]- 2562 May, [facility] [place] [facility] [address] [facility] [id number], [place] [address]- 1824 May, [facility] [place] [facility] [address] [facility] [id number] [place] [address]- 1928 May, [facility] [place] [facility] [address] [facility] [id number] [place] [address]- 2866 Apr, [facility] [place] [facility] [address] [facility] [id number] [place] [address]- 0036 Apr, [facility] [place] [facility] [address] [id number] [place] [address]- 7257 Apr, [facility] [place] [facility] [address] [id number] [place] [address]- 6826 Apr, [facility] [place] [facility] [address] [id number] [place] [address]- 0386 Apr, [facility] [place] [facility] [address] [id number] [place] [address]- 8276 Apr, [facility] [place] [facility] [address] [id number] [place] [address]- 3594 Apr, [facility] [place] [facility] [address] [id number] [place] [address]- 6401 Apr, [facility] [place] [facility] [address] [id number] [place] [address]- 8254 Apr, [facility] [place] [facility] [address] [id number] [place] [address]- 4290 Mar, [facility] [place] [facility] [address] [id number] [place] [address]- 6258 Mar, [facility] [place] [facility] [address] [id number] [place] [address]- 4088 Mar, [facility] [place] [facility] [address] [id number] [place] [address]- 2828 Mar, [facility] [place] [facility] [address] [id number] [place] [address]- 6917 Mar, [facility] [place] [facility] [address] [id number] [place] [address]- 2543 Feb, [facility] [place] [facility] [address] [id number] [place] [address]- 5966 Feb, [facility] [place] [facility] [address] [id number] [place] [address]- 0522 Feb, [facility] [place] [facility] [address] [id number] [place] [address]- 2189 Dec, [facility] [address] [id number] [place] [address]- 9571 Nov, [facility] [place] [facility] [address] [id number] [place] [address]- 7146 Apr, [facility] [place] [facility] [address] [id number] [place] [address]- 8886 Apr, [facility] [place] [facility] [address] [id number] [place] [address]- 9812 16 Apr, 2010 [facility] [place] [facility] [address] [id number] [place] [address]- 9816 Apr, [facility] [place] [facility] [address] [id number] [place] [address]- 4338 Apr, [facility] [place] [facility] [address] [id number] [place] [address]- 8753 Apr, [facility] [place] [facility] [address] [id number] [place] [address]- 4594 Apr, [facility] [place] [facility] [address] [id number] [place] [address]- 5039 Apr, [facility] [place] [facility] [address] [id number] [place] [address]- 1274 Mar, [facility] [place] [facility] [address] [id number], [place] [address]- 3849 Mar, [facility] [place] [facility] [address] [id number], [place] [address]- 4437 Mar, [facility] [place] [facility] [address] [id number] [place] [address]- 2742 Mar, [facility] [place] [facility] [address] [id number], [place] [address]- 5326 Mar, [facility] [place] [facility] [address] [id number] [place] [address]- 7111 Mar, [facility] [place] [facility] [address] [facility] [id number] [place] [address] Mar, [facility] [address] [facility] [id number] [place] [address] 3050 Mar, [facility] [address] [facility] [id number] [place] [address]- 1571 Mar, [facility] [address] [facility] [id number] [place] [address]- 8273 Mar, IMMUNIZATIONS No Known Immunizations SOCIAL HISTORY Never Assessed REASON FOR VISIT Requests return call PLAN OF CARE VITAL SIGNS MEDICATIONS No [...]
[2018-04-22] MEDS ORDERED: methylPREDNISolone 125 MG (Solu-MEDROL) VIAL IVP ONE (23:15)
[2018-04-22] MEDS ORDERED: RT-ALBUTEROL/IPRATROPIUM 3 ML (DUONEB) VIAL INH ONE (23:15)
--- OUTSIDE RECORDS SUMMARY | 2018-04-22 23:15 | XMS REPORT ---
Author Author RICHMOND MARY [facility] Address [address] [place] [address] Care Team Providers Care Aluminum Can Collector Name Role Phone RICHMONDSRIDHARMARY Unavailable PROBLEMS Type Condition ICD9-CM Code MOR98-IN Code Onset Dates Condition Status SNOMED Code Problem Iron deficiency anemia, unspecified iron deficiency anemia type D50.9 Active 47672277 Problem Severe sleep apnea G47.30 Active 86033018 Problem Decreased diffusion capacity R94.2 Active 24105166 Problem Stenosis of carotid artery, unspecified laterality I65.29 Active 47387117 Problem Coronary artery disease involving cher-ae heights coronary artery of cher-ae heights heart, angina presence unspecified I25.10 Active [id number] Problem Generalized osteoarthritis M15.9 Active 282792334 Problem Aortic valve sclerosis I35.8 Active 88810868 Problem Hypoxemia R09.02 Active 957371942 Problem Essential hypertension I10 Active 83758436 Problem BMI 50.0-59.9, adult Z68.43 Active 666654331 Problem Mixed hyperlipidemia E78.2 Active 465597412 Problem Port catheter in place Z95.828 Active 223033283 Problem Anxiety about health F41.8 Active 805501392 Problem Transient cerebral ischemia, unspecified type G45.9 Active 935139758 Problem Slow transit constipation K59.01 Active 98091878 Problem Bladder spasms N32.89 Active 985291023 Problem Type 2 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 Active 16839694 Problem 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 Active 8592164 Problem Renal osteodystrophy N25.0 Active 27250970 Problem Type 2 diabetes mellitus with unspecified complications E11.8 Active 66394247 Problem Chronic kidney disease, unspecified CKD stage N18.9 Active 987434731 Problem Pain R52 Active 80814483 Problem half-way 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.4 Active 373324334 Problem Type 2 diabetes mellitus with diabetic polyneuropathy E11.42 Active 185600210 Problem Anemia in other chronic diseases classified elsewhere D63.8 Active 865255723 Problem Type 2 diabetes mellitus with hyperglycemia E11.65 Active 25662854 Problem Type 2 diabetes mellitus with foot ulcer E11.621 Active 534997412 Problem Trochanteric bursitis of left hip M70.62 Active 647899184354661 Problem Presence of IVC filter Z95.828 Active 204919605 Problem Chronic kidney disease, stage 3 (moderate) N18.3 Active 414356708 Problem Diarrhea, unspecified type R19.7 Active 51660105 ALLERGIES No Information ENCOUNTERS Encounter Location Date Diagnosis [facility] [id number] [place] [address] 80190- 4771 Dec, Type 2 diabetes mellitus with hyperglycemia E11.65 [facility] [id number] [place] [address] 83814- 5428 Dec, Left leg pain M79.605 [facility] [address] [address]- 0058 Nov, Slow transit constipation K59.01 [facility] [id number] [place] [address] 04575- 0155 Nov, [employer] [address] [place] [id number] Nov, Anemia due to acute blood loss D62 [facility] [id number] [place] [address] 95749- 3656 Nov, [facility] [id number] [place] [address] 77704- 2040 Nov, Bladder spasms N32.89 [facility] [id number] [place] [address] 33051- 3074 Nov, Pain R52 [employer] [address] [place] [id number] Nov, Anemia due to acute blood loss D62 [facility] [id number] [place] [address] 57132- 8644 Nov, Pain in right hip M25.551 and Pain in left hip M25.552 [facility] [address] [address] 2860 Nov, [facility] [address] [address] 6091 Nov, [facility] [address] [address] 9405 Nov, [facility] [id number] [place] [address] 02167- 8448 Nov, [facility] [id number] [address] 4406 Oct, [facility] [id number] [place] [address] 88919- 0078 Oct, [facility] [address] [id number] Oct, Encounter for examination for admission to senior living Z02.2 ; Chronic kidney disease, unspecified CKD stage N18.9 ; Type 2 diabetes mellitus with unspecified complications E11.8 ; intermediate card tender 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.4 ; Essential hypertension I10 ; Hypoxia R09.02 ; Severe sleep apnea G47.30 ; Stenosis of carotid artery, unspecified laterality I65.29 ; Generalized osteoarthritis M15.9 ; Coronary artery disease involving cher-ae heights coronary artery of cher-ae heights heart, angina presence unspecified I25.10 ; Port catheter in place Z95.828 and Hemorrhoids, unspecified hemorrhoid type K64.9 [facility] [id number] [address] 4956 Oct, [facility] [id number] [address] 0857 Oct, [facility] [address] [address] 2221 Oct, [facility] [id number] [address] 3438 Oct, [facility] [id number] [address] September, BMI 50.0-59.9, adult Z68.43 [facility] [id number] [place] [address] 03586- 5664 September, [facility] [address] 66585- 8859 September, [facility] [id number] [place] [address] 46853- 3548 Aug, Type 2 diabetes mellitus with foot ulcer E11.621 ; Transient cerebral ischemia, unspecified type G45.9 ; Essential hypertension I10 ; Mixed hyperlipidemia E78.2 and BMI 50.0-59.9, adult Z68.43 [facility] [id number] [place] [address] 35513- 1061 Aug, [facility] [address] 25346- 5133 14 Jul, 2017 Anxiety about health F41.8 and Mixed hyperlipidemia E78.2 [facility] [id number] [place] [address] 74342- 1015 13 Jul, 2017 [facility] [address] 66629- 5558 Jun, [facility] [id number] [place] [address] 66609- 5281 12 Jun, 2017 Type 2 diabetes mellitus with hyperglycemia E11.65 ; Type 2 diabetes mellitus with foot ulcer E11.621 ; Port catheter in place Z95.828 ; 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 ; Contact with and (suspected) exposure to potentially hazardous body fluids Z77.21 and BMI 50.0-59.9, adult Z68.43 [facility] [id number] [place] [address] 30395- 4271 May, [facility] [id number] [place] [address] 14762- 0789 May, Open wound of right great toe, subsequent encounter S91.101D [facility] [address] [address]- 5495 May, [facility] [id number] [place] [address] 60937- 9060 Apr, [facility] [address] [address]- 9014 Apr, [facility] [id number] [place] [address] 50809- 8793 Apr, [facility] [id number] [place] [address] 49907- 1440 Apr, Type 2 diabetes mellitus with diabetic polyneuropathy E11.42 [facility] [id number] [place] [address] 13467- 0355 13 Apr, 2017 Open wound of right great toe, subsequent encounter S91.101D [place] [id number] [place] [address] 33617- 9969 08 Apr, 2017 Open wound of right great toe, subsequent encounter S91.101D ; Breast pain, left N64.4 ; Breast cancer screening Z12.31 ; Type 2 diabetes mellitus with foot ulcer E11.621 ; Essential hypertension I10 and BMI 50.0-59.9, adult Z68.43 [facility] [address] [address]- 2926 Mar, Encounter for immunization Z23 [facility] [id number] [place] [address] 95090- 4466 Mar, [facility] [id number] [place] [address] 45182- 3061 Mar, [facility] [id number] [place] [address] 44891- 2953 10 Mar, 2017 Type 2 diabetes mellitus with diabetic polyneuropathy E11.42 ; Type 2 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 ; Type 2 diabetes mellitus with foot ulcer E11.621 ; Essential hypertension I10 ; Hypoxemia R09.02 and Generalized osteoarthritis M15.9 [facility] [id number] [address]- 7397 Mar, Chronic kidney disease, stage 3 (moderate) N18.3 ; Acute cystitis without hematuria N30.00 ; Essential hypertension I10 ; Muscle spasms of neck M62.838 ; Type 2 diabetes mellitus with diabetic polyneuropathy E11.42 and BMI 50.0-59.9, adult Z68.43 [facility] [id number] [place] [address] 84477- 2574 Feb, [facility] [id number] [place] [address] 00255 -1930 Feb, [facility] [id number] [place] [address] 90103- 4392 Feb, [facility] [id number] [place] [address] 81693- 4433 Feb, [facility] [id number] [place] [address] 77225- 8941 Feb, [facility] [id number] [place] [address] 69247- 5150 Feb, [facility] [id number] [place] [address] 34784- 5443 Feb, Mixed hyperlipidemia E78.2 [facility] [id number] [place] [address] 75278- 6947 Feb, [facility] [id number] [place] [address] 58835- 0216 Jan, [facility] [id number] [place] [address] 39335- 1938 Jan, Generalized osteoarthritis M15.9 [facility] [id number] [place] [address] 86463- 8713 Oct, [facility] [id number] [place] [address] 80783- 7113 Jul, [facility] [id number] [place] [address] 04647- 8868 13 Jul, 2016 [facility] [id number] [place] [address] 12993- 6102 Jul, Type 2 diabetes mellitus with hyperglycemia E11.65 ; Chronic kidney disease, stage 3 (moderate) N18.3 ; Type 2 diabetes mellitus with foot ulcer E11.621 ; Type 2 diabetes mellitus with diabetic polyneuropathy E11.42 ; Generalized osteoarthritis M15.9 ; Trochanteric bursitis of left hip M70.62 and Tinea pedis of both feet B35.3 [facility] [id number] [place] [address] 28493- 6322 13 Jun, 2016 [place] [facility] [address] 71249- 4940 Apr, [facility] [id number] [place] [address] 01035- 6716 Apr, [facility] [id number] [place] [address] 63347- 2150 Mar, [facility] [id number] [place] [address] 17693- 3372 Feb, Encounter for immunization Z23 [place] [id number] [place] [address] 29282- 9315 Feb, [place] [id number] [place] [address] 43028- 8885 Feb, Type 2 diabetes mellitus with hyperglycemia E11.65 ; Encounter for immunization Z23 ; Diarrhea, unspecified type R19.7 ; Essential hypertension I10 ; Mixed hyperlipidemia E78.2 ; Hypoxia R09.02 ; 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 and Type 2 diabetes mellitus with foot ulcer E11.621 [facility] [id number] [place] [address] 34326- 8391 Jan, [place] [id number] [place] [address] 98048- 0491 Jan, Type 2 diabetes mellitus with hyperglycemia E11.65 and Pneumonia due to infectious organism, unspecified laterality, unspecified part of lung J18.9 [facility] [id number] [place] [address] 64487- 5011 19 Jan, 2016 [facility] [id number] [place] [address] 70689- 9654 16 Jan, 2016 [facility] [id number] [place] [address] 53281- 1270 Oct, Type 2 diabetes mellitus with hyperglycemia E11.65 ; Generalized osteoarthritis M15.9 and Chronic prescription opiate use Z79.891 [facility] [id number] [place] [address] 61530- 3519 September, [facility] [id number] [place] [address] 40706- 6036 Aug, [facility] [address] 49882- 9908 Aug, [facility] [id number] [place] [address] 60752- 0691 Aug, [facility] [id number] [place] [address] 32275- 4531 Aug, [facility] [id number] [place] [address] 53106- 3851 Jun, [facility] [id number] [place] [address] 26120- 0694 Jun, Type 2 diabetes mellitus with hyperglycemia E11.65 ; Mixed hyperlipidemia E78.2 ; Vaginal itching L29.8 ; Neck muscle spasm M62.838 and Skin abrasion T14.8 [facility] [id number] [place] [address] 94000- 2901 Apr, [facility] [id number] [place] [address] 60485- 8361 Apr, [facility] [id number] [place] [address] 28409- 8473 Mar, [facility] [id number] [place] [address] 50080- 1135 Feb, [facility] [id number] [place] [address] 20701- 7826 Feb, Type 2 diabetes mellitus with hyperglycemia E11.65 ; Type 2 diabetes mellitus with foot ulcer E11.621 ; Type 2 diabetes mellitus with diabetic polyneuropathy E11.42 and Encounter for immunization Z23 [facility] [id number] [place] [address] 05366- 9884 Jan, Hypertension 401.9 ; Uncontrolled type 2 diabetes mellitus 250.02 ; Right shoulder pain 719.41 and Ulcer of heel and midfoot 707.14 [place] [id number] [place] [address] 14970- 6514 Dec, Diabetes with other specified manifestations, type II or unspecified type, not stated as uncontrolled 250.80 ; Ulcer of heel and midfoot 707.14 ; Hypertension 401.9 ; Hip pain, left 719.45 and Acute anxiety 300.00 [place] [id number] [place] [address] 10687- 0581 Nov, [facility] [id number] [place] [address] 11939- 4368 Nov, [facility] [id number] [place] [address] 46799- 3458 September, Anxiety attack 300.01 and Cellulitis 682.9 [facility] [id number] [place] [address] 10671- 6806 September, [facility] [id number] [place] [address] 56313- 9640 September, [facility] [id number] [place] [address] [id number]- 7798 September, [facility] [id number] [place] [address] 75427- 6169 Aug, [facility] [place] [facility] [address] [id number] [place] [address]- 9040 13 Aug, 2014 [facility] [place] [facility] [address] [id number] [place] [address]- 7461 13 Jul, 2014 [facility] [place] [facility] [address] [id number] [place] [address]- 3529 13 Jul, 2014 [facility] [place] [facility] [address] [id number] [place] [address]- 9686 05 Jul, 2014 [facility] [place] [facility] [address] [id number] [place] [address]- 2502 13 May, 2014 [facility] [place] [facility] [address] [id number] [place] [address]- 4693 May, [facility] [place] [facility] [address] [id number] [place] [address]- 1394 Mar, [facility] [place] [facility] [address] [id number] [place] [address]- 6014 Mar, [facility] [place] [facility] [address] [id number] [place] [address]- 5713 Mar, [facility] [place] [facility] [address] [id number] [place] [address]- 8062 Mar, [facility] [place] [facility] [address] [id number] [place] [address]- 8517 Mar, [facility] [place] [facility] [address] [id number] [place] [address]- 1030 Mar, [facility] [place] [facility] [address] [id number] [place] [address]- 3702 Mar, [facility] [place] [facility] [address] [id number] [place] [address]- 9791 14 Feb, 2014 [facility] [place] [facility] [address] [id number] [place] [address]- 8508 14 Feb, 2014 [facility] [place] [facility] [address] [id number] [place] [address]- 2546 30 Sep, 2013 [facility] [place] [facility] [address] [id number] [place] [address] 2546 30 Sep, 2013 [facility] [place] [facility] [address] [id number] [place] [address] 2546 26 Sep, 2013 [facility] [place] [facility] [address] [id number] [place] [address] 2546 26 Sep, 2013 [facility] [place] [facility] [address] [id number] [place] [address] 2540 25 Sep, 2013 [facility] [place] [facility] [address] [id number] [place] [address] 2544 25 Sep, 2013 [facility] [place] [facility] [address] [id number] [place] [address]- 9099 25 Sep, 2013 [facility] [place] [facility] [address] [id number] [place] [address]- 0661 25 Sep, 2013 [facility] [place] [facility] [address] [id number] [place] [address] 2543 18 Sep, 2013 [facility] [place] [facility] [address] [id number] [place] [address] 2545 18 Sep, 2013 [facility] [place] [facility] [address] [id number] [place] [address] 2542 06 Sep, 2013 [facility] [place] [facility] [address] [id number] [place] [address] 2540 06 Sep, 2013 [facility] [place] [facility] [address] [id number] [address] 2546 05 Sep, 2013 [facility] [place] [facility] [address] [id number] [place] [address] 2546 05 Sep, 2013 [facility] [place] [facility] [address] [id number] [place] [address] 2546 05 Sep, 2013 [facility] [place] [facility] [address] [id number] [place] [address] 2546 05 Sep, 2013 [facility] [place] [facility] [address] [id number] [place] [address]- 2819 05 Jan, 2013 [facility] [place] [facility] [address] [id number] [place] [address]- 1351 Jan, 2013 [facility] [place] [facility] [address] [id number] [place] [address]- 1477 Dec, [facility] [place] [facility] [address] [id number] [place] [address]- 1083 Dec, [facility] [place] [facility] [address] [id number] [place] [address]- 2367 Dec, 2013 [facility] [place] [facility] [address] [id number] [place] [address]- 3862 Dec, [facility] [place] [facility] [address] [id number] [place] [address]- 9290 Dec, [facility] [place] [facility] [address] [id number] [place] [address]- 1277 Dec, [facility] [place] [facility] [address] [id number] [place] [address]- 3477 Dec, [facility] [place] [facility] [address] [id number] [place] [address]- 1161 Dec, [facility] [place] [facility] [address] [id number] [place] [address]- 6509 Dec, [facility] [place] [facility] [address] [id number] [place] [address]- 2055 Dec, [facility] [place] [facility] [address] [id number] [place] [address]- 4577 Nov, [facility] [place] [facility] [address] [id number] [place] [address]- 2748 Nov, [facility] [place] [facility] [address] [id number] [place] [address]- 6811 Nov, [facility] [place] [facility] [address] [id number] [place] [address]- 1973 Nov, [facility] [place] [facility] [address] [id number] [place] [address]- 1239 Nov, [facility] [place] [facility] [address] [id number] [place] [address]- 7693 Nov, [facility] [place] [facility] [address] [id number] [place] [address]- 0446 Oct, [facility] [place] [facility] [address] [id number] [place] [address]- 8530 Oct, [facility] [place] [facility] [address] [id number] [place] [address]- 2964 Oct, [facility] [place] [facility] [address] [id number] [place] [address]- 0301 Oct, [facility] [place] [facility] [address] [id number] [place] [address]- 8597 Oct, [facility] [place] [facility] [address] [id number] [place] [address]- 1180 Oct, [facility] [place] [facility] [address] [id number] [place] [address]- 5462 Oct, [facility] [place] [facility] [address] [id number] [place] [address]- 6272 Oct, [facility] [place] [facility] [address] [id number] [place] [address]- 8513 Oct, [facility] [place] [facility] [address] [id number] [address]- 0709 Oct, [facility] [place] [facility] [address] [id number] [place] [address]- 2304 Oct, [facility] [place] [facility] [address] [id number] [place] [address] Oct, [facility] [place] [facility] [address] [id number] [place] [address] September, [facility] [place] [facility] [address] [id number] [place] [address] September, [facility] [place] [facility] [address] [id number] [place] [address] September, [facility] [place] [facility] [address] [id number] [place] [address] Aug, [facility] [place] [facility] [address] [facility] [id number] [place] [address] Aug, [facility] [place] [facility] [address] [id number] [place] [address] Jul, [facility] [place] [facility] [address] [id number] [place] [address] Jul, [facility] [place] [facility] [address] [id number] [place] [address] Jul, [facility] [place] [facility] [address] [facility] [id number] [place] [address] Jul, [facility] [place] [facility] [address] [id number] [place] [address] Jul, [facility] [place] [facility] [address] [id number] [place] [address] Jul, [facility] [place] [facility] [address] [facility] [id number] [place] [address] Jul, [facility] [place] [facility] [address] [id number] [place] [address] Jul, [facility] [place] [facility] [address] [id number] [place] [address] Jul, [facility] [place] [facility] [address] [id number] [place] [address] Jul, [facility] [place] [facility] [address] [facility] [id number] [place] [address] Jun, [facility] [place] [facility] [address] [facility] [id number] [place] [address] Jun, [facility] [place] [facility] [address] [id number] [place] [address] Jun, [facility] [address] [id number] [place] [address] Jun, [facility] [place] [facility] [address] [id number] [place] [address] May, [facility] [address] [id number] [place] [address] May, [facility] [address] [id number] [place] [address] Apr, [facility] [place] [facility] [address] [id number] [place] [address] Apr, [facility] [address] [id number] [place] [address] Apr, [facility] [address] [id number] [place] [address] Apr, [facility] [address] [id number] [place] [address] Apr, [facility] [address] [id number] [place] [address] Apr, [facility] [place] [facility] [address] [id number] [place] [address] Apr, [facility] [place] [facility] [address] [id number] [place] [address] Apr, [facility] [facility] [address] [id number] [place] [address] Mar, [facility] [place] [facility] [address] [id number] [place] [address] Mar, [facility] [address] [id number] [place] [address] 9214 Mar, [facility] [place] [facility] [address] [id number] [place] [address] 1174 Mar, [facility] [place] [facility] [address] [id number] [place] [address] 7585 08 Mar, 2013 [facility] [place] [facility] [address] [id number] [place] [address] 0[address] 08 Mar, 2013 [facility] [place] [facility] [address] [id number] [place] [address] 0863 30 Feb, 2013 [facility] [place] [facility] [address] [id number] [place] [address]- 0454 30 Feb, 2013 [facility] [place] [facility] [address] [id number] [place] [address] Feb, [facility] [place] [facility] [address] [id number] [place] [address] 2268 18 Feb, 2013 [facility] [place] [address] [id number] [place] [address] 1050 14 Feb, 2013 [facility] [place] [facility] [address] [id number] [place] [address] 9018 14 Feb, 2013 [facility] [place] [facility] [address] [id number] [place] [address]- 2933 04 Feb, 2013 [facility] [place] [facility] [address] [id number] [place] [address] 9785 27 Jan, 2013 [facility] [place] [facility] [address] [id number] [place] [address]- 3381 26 Jan, 2013 [facility] [place] [facility] [address] [id number] [place] [address]- 4118 19 Jan, 2013 [facility] [place] [facility] [address] [id number] [place] [address]- 0760 05 Jan, 2013 [facility] [place] [facility] [address] [id number] [place] [address] 16 Dec, 2012 [facility] [place] [facility] [address] [id number] [place] [address] Dec, [facility] [facility] [address] [id number] [place] [address] 2541 Dec, [facility] [address] [id number] [place] [address] 1449 Nov, [facility] [address] [id number] [place] [address]- 7536 Nov, [facility] [address] [id number] [place] [address]- 5167 Nov, [facility] [address] [id number] [place] [address]- 9502 Nov, [facility] [address] [id number] [place] [address]- 2584 Nov, [facility] [address] [id number] [place] [address] 8476 Nov, [facility] [address] [id number] [place] [address] 4109 Oct, [facility] [address] [id number] [place] [address] 6377 Oct, [facility] [address] [id number] [place] [address] 8539 Oct, [facility] [address] [id number] [place] [address]- 9658 Oct, [facility] [address] [id number] [place] [address]- 6790 Oct, [facility] [address] [id number] [place] [address]- 3209 Oct, [facility] [address] [id number] [place] [address]- 9721 September, [facility] [address] [id number] [place] [address]- 7086 September, [facility] [address] [id number] [place] [address]- 9830 September, [facility] [address] [id number] [place] [address]- 9901 September, [facility] [address] [id number] [place] [address] 2455 Aug, [facility] [address] [id number] [place] [address]- 6376 Aug, [facility] [address] [id number] [place] [address]- 5439 28 Jul, 2012 [facility] [address] [id number] [place] [address]- 6554 Jul, [facility] [address] [id number] [place] [address]- 4206 Jul, [facility] [address] [id number] [place] [address]- 9045 Jul, [facility] [address] [id number] [place] [address]- 3542 Jul, [facility] [address] [id number] [place] [address]- 2472 Jul, [facility] [address] [id number] [place] [address]- 5626 Jun, [facility] [address] [id number] [place] [address]- 3343 Jun, [facility] [address] [id number] [address] 5606 May, [facility] [address] [id number] [place] [address]- 4974 May, [facility] [address] [id number] [place] [address]- 7566 Apr, [facility] [address] [id number] [place] [address]- 3276 Apr, [facility] [address] [id number] [place] [address]- 3362 13 Apr, 2012 [facility] [address] [id number] [place] [address]- 6256 13 Apr, 2012 [facility] [address] [id number] [place] [address]- 5536 10 Apr, 2012 [facility] [address] [id number] [place] [address]- 0696 10 Apr, 2012 [facility] [address] [id number] [place] [address]- 5876 07 Apr, 2012 [facility] [address] [id number] [place] [address]- 9136 07 Apr, 2012 [facility] [address] [id number] [place] [address]- 8246 07 Apr, 2012 [facility] [address] [id number] [place] [address]- 0651 07 Apr, 2012 [facility] [address] [id number] [place] [address]- 6650 Apr, [facility] [address] [id number] [place] [address]- 4066 Apr, [facility] [address] [facility] [id number] [place] [address]- 0388 Apr, [facility] [address] [id number] [place] [address]- 5946 Apr, [facility] [address] [id number] [place] [address]- 0573 Apr, [facility] [address] [id number] [place] [address]- 7516 Apr, [facility] [address] [id number] [place] [address]- 9079 Mar, [facility] [address] [facility] [id number] [place] [address]- 0908 Mar, [facility] [address] [id number] [place] [address]- 6976 Mar, [facility] [address] [id number] [place] [address]- 0216 Mar, [facility] [address] [id number] [place] [address]- 2301 Mar, [facility] [address] [id number] [place] [address]- 5021 Mar, [facility] [address] [id number] [place] [address]- 0195 Mar, [facility] [address] [id number] [place] [address]- 0731 Mar, [facility] [address] [id number] [place] [address]- 5556 Mar, [facility] [address] [id number] [place] [address]- 9212 Mar, [facility] [address] [id number] [place] [address]- 9933 Feb, [facility] [address] [id number] [place] [address]- 0301 Feb, [facility] [address] [facility] [id number] [place] [address]- 6906 Feb, [facility] [address] [id number] [place] [address]- 1508 Feb, [facility] [address] [id number] [place] [address]- 9485 Feb, [facility] [address] [id number] [place] [address]- 7723 Feb, [facility] [address] [id number] [place] [address]- 5621 Jan, [facility] [address] [id number] [place] [address]- 1438 Dec, [facility] [address] [id number] [place] [address]- 1091 Dec, [facility] [address] [id number] [place] [address]- 9335 Dec, [facility] [address] [id number] [place] [address]- 9476 Dec, [facility] [address] [id number] [place] [address]- 3855 Nov, [facility] [address] [id number] [place] [address]- 8055 Nov, [facility] [address] [id number] [place] [address]- 8972 Nov, [facility] [address] [id number] [place] [address]- 1289 Nov, [facility] [address] [id number] [place] [address]- 7623 Oct, [facility] [address] [id number] [place] [address]- 5530 Oct, [facility] [address] [id number] [place] [address]- 6865 Oct, [facility] [address] [id number] [place] [address]- 4488 Oct, [facility] [address] [id number] [place] [address]- 9955 Oct, [facility] [address] [id number] [place] [address]- 8802 September, [facility] [address] [id number] [place] [address]- 4159 September, [facility] [address] [id number] [place] [address]- 0523 September, [facility] [address] [id number] [place] [address]- 0705 September, [facility] [place] [address] [id number] [place] [address]- 6700 September, [facility] [address] [id number] [place] [address]- 5272 September, [facility] [address] [id number] [place] [address]- 8497 September, [facility] [address] [id number] [place] [address]- 8414 September, [facility] [address] [id number] [place] [address]- 5212 Aug, [facility] [address] [id number] [place] [address]- 6230 Aug, [facility] [address] [id number] [place] [address]- 7379 Aug, [facility] [address] [id number] [place] [address]- 5808 Aug, [facility] [address] [id number] [place] [address]- 6789 18 Aug, 2011 [facility] [place] [address] [id number] [place] [address]- 7912 17 Aug, 2011 [facility] [address] [id number] [place] [address]- 2188 13 Aug, 2011 [facility] [address] [id number] [place] [address]- 7642 12 Aug, 2011 [facility] [address] [id number] [place] [address]- 9261 10 Aug, 2011 [facility] [address] [id number] [place] [address]- 5565 09 Aug, 2011 [facility] [address] [id number] [place] [address]- 5166 02 Aug, 2011 [facility] [address] [id number] [place] [address]- 2097 Aug, [facility] [address] [id number] [place] [address]- 8451 29 Jul, 2011 [facility] [place] [address] [id number] [place] [address]- 0620 28 Jul, 2011 [facility] [place] [facility] [address] [id number] [place] [address]- 2926 27 Jul, 2011 [facility] [place] [facility] [address] [id number] [place] [address]- 7326 23 Jul, 2011 [facility] [address] [id number] [place] [address]- 7866 Jul, [facility] [place] [address] [id number] [place] [address]- 8521 Jul, [facility] [address] [id number] [place] [address]- 9977 14 Jul, 2011 [facility] [address] [id number] [place] [address]- 0528 13 Jul, 2011 [facility] [address] [id number] [place] [address]- 8074 Jul, [facility] [address] [id number] [place] [address]- 4828 24 Jun, 2011 [facility] [address] [id number] [place] [address]- 3097 Jun, [facility] [address] [id number] [place] [address]- 2641 Jun, [facility] [place] [address] [id number] [place] [address]- 5936 14 Jun, 2011 [facility] [address] [id number] [place] [address]- 8246 02 Jun, 2011 [facility] [address] [id number] [place] [address]- 9138 02 Jun, 2011 [facility] [address] [id number] [place] [address]- 2576 Jun, [facility] [address] [id number] [place] [address]- 8766 May, [facility] [address] [id number] [place] [address]- 0955 May, [facility] [address] [id number] [place] [address]- 5244 May, [facility] [address] [id number] [place] [address]- 0915 May, [facility] [address] [id number] [place] [address]- 5296 May, [facility] [address] [id number] [place] [address]- 6090 May, [facility] [address] [id number] [place] [address]- 7575 May, [facility] [address] [id number] [place] [address]- 7110 Apr, [facility] [address] [id number] [place] [address]- 1491 30 Apr, 2011 [facility] [address] [id number] [place] [address] 2546 Apr, [facility] [address] [id number] [place] [address] 254 Apr, [facility] [address] [id number] [place] [address] 2546 Apr, [facility] [address] [id number] [place] [address] 2546 Apr, [facility] [address] [id number] [place] [address]- 0759 13 Apr, 2011 [facility] [place] [facility] [address] [id number] [place] [address]- 9926 08 Apr, 2011 [facility] [place] [facility] [address] [id number] [place] [address]- 9970 Apr, [facility] [place] [facility] [address] [id number] [place] [address]- 7573 Mar, [facility] [place] [facility] [address] [id number] [place] [address]- 9758 Mar, [facility] [place] [facility] [address] [id number] [place] [address]- 1814 Mar, [facility] [place] [facility] [address] [id number] [place] [address]- 4517 Mar, [facility] [place] [facility] [address] [id number] [place] [address]- 5204 Mar, [facility] [address] [id number] [place] [address]- 8881 Feb, [facility] [place] [facility] [address] [id number] [place] [address]- 3409 Feb, [facility] [place] [facility] [address] [id number] [place] [address]- 6425 Feb, [facility] [place] [facility] [address] [id number] [place] [address]- 7712 Dec, [facility] [place] [facility] [address] [id number] [place] [address]- 7735 Nov, [facility] [place] [facility] [address] [id number] [place] [address]- 5112 Apr, [facility] [place] [facility] [address] [id number] [place] [address]- 3531 Apr, [facility] [place] [facility] [address] [id number] [place] [address] 2543 16 Apr, 2010 [facility] [place] [facility] [address] [id number] [address]- 7143 Apr, [facility] [address] [facility] [id number] [place] [address] 2546 Apr, [facility] [address] [facility] [id number] [address] 2546 Apr, [facility] [id number] [address] 2546 Apr, [facility] [address] [facility] [id number] [place] [address] 2546 Apr, [facility] [address] [facility] [id number] [place] [address] 2542 Mar, [facility] [address] [facility] [id number] [address]- 3009 Mar, [facility] [id number] [address]- 7087 Mar, [facility] [id number] [address] 2543 Mar, [facility] [id number] [address] 2542 Mar, [facility] [id number] [address] 2544 Mar, [facility] [id number] [address] 2546 Mar, [facility] [address] [id number] [address] 2546 Mar, [facility] [address] [id number] [address] 2546 Mar, [facility] [address] [id number] [address]- 2549 Mar, IMMUNIZATIONS No Known Immunizations SOCIAL HISTORY Never Assessed REASON FOR VISIT Blood pressure check. kbullardrn PLAN OF CARE VITAL SIGNS Height 66 in 2017-09-16 Weight 315.0 lbs 2017-09-16 Temperature 97.6 degrees Fahrenheit 2017-09-16 Heart Rate 68 bpm 2017-09-16 Respiratory Rate 24 2017-09-16 BMI 50.84 kg/m2 2017-09-16 Blood pressure systolic 146 mmHg 2017-09-16 Blood pressure diastolic 86 mmHg 2017-09-16 MEDICATIONS Medication Instructions Dosage Frequency Start Date End Date Duration Status Plavix 75 MG TAKE ONE TABLET BY MOUTH ONCE DAILY (MUST HAVE FOLLOW UP APPOINTMENT FOR FURTHER REFILLS) Active Lomotil 2.5-0.025 MG Orally Four times a day 1 tablet as needed 6h Active Losartan Potassium 100 MG Orally Once a day 1 tablet 24h Active NovoLog Flexpen 100 UNIT/ML Subcutaneous 3 times a day 9 units before meals 8h Jul, Active Magnesium Oxide 250 MG Orally Once a day 1 tablet 24h Active Flagyl 500 MG Orally every 8 hrs 1 tablet 8h Active Levemir FlexTouch 100 UNIT/ML INJECT 20 UNITS SUBCUTANEOUSLY TWICE DAILY 37 Active Fish Oil 1000 MG Orally 3 times a day 1 capsule 8h Active Aspirin 81 mg take 1 tablet (81 mg) by oral route once daily September, Active Arginine 1000 MG Orally 3 times a day 2 tablets 8h Active Multivitamin Adult - Active Alavert 10 mg take 1 tablet (10 mg) by oral route once daily September, Active NovoLog Flexpen 100 UNIT/ML INJECT 10 UNITS SUBCUTANEOUSLY THREE TIMES PER DAY BEFORE MEALS 50 Active Aranesp (Albumin Free) 40 MCG/ML Injection every 2 weeks 20 mcg September, Active Metoprolol Tartrate 50 MG Orally Twice a day 1 tablet 12h Active Neurontin 100 mg Orally 3 times a day 1 capsule 8h 30 Active Torsemide 100 mg Orally Once a day 1 tablet as needed 24h Not- Taking Levemir Flexpen 100 UNIT/ML INJECT 20 UNITS SUBCUTANEOUSLY TWICE DAILY 37 Active Rosuvastatin Calcium 20 MG Orally Once a day 1 tablet 24h Active Calcium Carbonate-Vitamin D3 600-400 MG-UNIT Orally 3 times a day 8h Active Simbrinza 1-0.2 % Ophthalmic Three times a day 1 drop into affected eye 8h Active Refresh Optive 0.5-0.9 % Active Flaxseed Oil 1000 MG Orally Once a day 1 capsule 24h Active Vitamin D3 5000 UNIT Orally Once a day 24h Active RESULTS No Results PROCEDURES No [...]
--- OUTSIDE RECORDS SUMMARY | 2018-04-22 23:16 | XMS REPORT ---
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 Name Role Phone RICHMONDSRIDHARMARY Unavailable PROBLEMS Type Condition ICD9-CM Code ACC73-FP Code Onset Dates Condition Status SNOMED Code Problem Iron deficiency anemia, unspecified iron deficiency anemia type D50.9 Active 51860550 Problem Severe sleep apnea G47.30 Active 21339386 Problem Decreased diffusion capacity R94.2 Active 72142042 Problem Stenosis of carotid artery, unspecified laterality I65.29 Active 01167608 Problem Coronary artery disease involving [place] coronary artery of [place] heart, angina presence unspecified I25.10 Active 9236380845591 Problem Generalized osteoarthritis M15.9 Active 858359901 Problem Aortic valve sclerosis I35.8 Active 19979830 Problem Hypoxemia R09.02 Active 039194056 Problem Essential hypertension I10 Active 93756278 Problem BMI 50.0-59.9, adult Z68.43 Active 914342522 Problem Mixed hyperlipidemia E78.2 Active 850416419 Problem Port catheter in place Z95.828 Active 771291950 Problem Anxiety about health F41.8 Active 868645724 Problem Transient cerebral ischemia, unspecified type G45.9 Active 919792430 Problem Slow transit constipation K59.01 Active 51733763 Problem Bladder spasms N32.89 Active 245311000 Problem Type 2 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 Active 14401729 Problem 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 Active 3916038 Problem Renal osteodystrophy N25.0 Active 99228322 Problem Type 2 diabetes mellitus with unspecified complications E11.8 Active 12550979 Problem Chronic kidney disease, unspecified CKD stage N18.9 Active 037426746 Problem Pain R52 Active 35502587 Problem senior living 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.4 Active 296498564 Problem Type 2 diabetes mellitus with diabetic polyneuropathy E11.42 Active 453193644 Problem Anemia in other chronic diseases classified elsewhere D63.8 Active 764094120 Problem Type 2 diabetes mellitus with hyperglycemia E11.65 Active 30422837 Problem Type 2 diabetes mellitus with foot ulcer E11.621 Active 084723582 Problem Trochanteric bursitis of left hip M70.62 Active 178492485063774 Problem Presence of IVC filter Z95.828 Active 345975309 Problem Chronic kidney disease, stage 3 (moderate) N18.3 Active 009516311 Problem Diarrhea, unspecified type R19.7 Active 65887471 ALLERGIES No Information ENCOUNTERS Encounter Location Date Diagnosis [facility] [id number] [place] [address] 28839- 1849 Dec, Type 2 diabetes mellitus with hyperglycemia E11.65 [facility] [id number] [place] [address] 76095- 4095 Dec, Left leg pain M79.605 [place] [address] 19709- 5174 Nov, Slow transit constipation K59.01 [facility] [id number] [place] [address] 04249- 7336 Nov, [employer] [facility] [address] [id number] Nov, Anemia due to acute blood loss D62 [place] [id number] [place] [address] 53081- 2375 Nov, [facility] [facility] [id number] [place] [address] 46865- 4230 Nov, Bladder spasms N32.89 [place] [id number] [place] [address] 38381- 0090 Nov, Pain R52 [employer] [address] [id number] Nov, Anemia due to acute blood loss D62 [place] [id number] [place] [address] 05146- 0063 Nov, Pain in right hip M25.551 and Pain in left hip M25.552 [place] [address], [place] [address] 47[address] Nov, [facility] [address], [place] [address] 0899 Nov, [facility] [address], [place] [address] 6277 Nov, [facility] [id number] [place] [address] 51164- 5179 Nov, [facility] [id number], [place] [address] 9088 Oct, [facility] [id number] [place] [address] 74672- 2292 Oct, [facility] [address] [id number] Oct, Encounter for examination for admission to intermediate Z02.2 ; Chronic kidney disease, unspecified CKD stage N18.9 ; Type 2 diabetes mellitus with unspecified complications E11.8 ; 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 ; Essential hypertension I10 ; Hypoxia R09.02 ; Severe sleep apnea G47.30 ; Stenosis of carotid artery, unspecified laterality I65.29 ; Generalized osteoarthritis M15.9 ; Coronary artery disease involving [place] coronary artery of [place] heart, angina presence unspecified I25.10 ; Port catheter in place Z95.828 and Hemorrhoids, unspecified hemorrhoid type K64.9 [facility] [id number], [place] [address] 2461 Oct, [facility] [id number], [place] [address] 2611 Oct, [facility] [address], [place] [address] 2731 Oct, [facility] [id number], [place] [address] 5088 Oct, [facility] [id number], [place] [address] September, BMI 50.0-59.9, adult Z68.43 [place] [id number] [place] [address] 10261- 5511 September, [place] [address] 52123- 8806 September, [facility] [id number] [place] [address] 11823- 7544 Aug, Type 2 diabetes mellitus with foot ulcer E11.621 ; Transient cerebral ischemia, unspecified type G45.9 ; Essential hypertension I10 ; Mixed hyperlipidemia E78.2 and BMI 50.0-59.9, adult Z68.43 [place] [id number] [place] [address] 78906- 9473 Aug, [place] [address] 63326- 0803 14 Jul, 2017 Anxiety about health F41.8 and Mixed hyperlipidemia E78.2 [place] [id number] [place] [address] 90154- 8572 13 Jul, 2017 [place] [address] 87868- 2283 Jun, [place] [id number] [place] [address] 21533- 3231 12 Jun, 2017 Type 2 diabetes mellitus with hyperglycemia E11.65 ; Type 2 diabetes mellitus with foot ulcer E11.621 ; Port catheter in place Z95.828 ; 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 ; Contact with and (suspected) exposure to potentially hazardous body fluids Z77.21 and BMI 50.0-59.9, adult Z68.43 [place] [id number] [place] [address] 49894- 2422 May, [place] [facility] [id number] [place] [address] 73948- 0000 May, Open wound of right great toe, subsequent encounter S91.101D [facility] [facility] [address], [place] [address] 5004 May, [place] [address] [place] [address] 23473- 4317 Apr, [place] [address], [place] [address] 9846 Apr, [place] [id number] [place] [address] 93528- 5830 Apr, [place] [id number] [place] [address] 57818- 6494 Apr, Type 2 diabetes mellitus with diabetic polyneuropathy E11.42 [place] [id number] [place] [address] 92885- 6515 13 Apr, 2017 Open wound of right great toe, subsequent encounter S91.101D [place] [id number] [place] [address] 42047- 8038 08 Apr, 2017 Open wound of right great toe, subsequent encounter S91.101D ; Breast pain, left N64.4 ; Breast cancer screening Z12.31 ; Type 2 diabetes mellitus with foot ulcer E11.621 ; Essential hypertension I10 and BMI 50.0-59.9, adult Z68.43 [place] [address], [place] [address] 9207 Mar, Encounter for immunization Z23 [place] [id number] [place] [address] 35075- 6548 Mar, [place] [address] [place] [address] 52031- 3048 Mar, [place] [id number] [place] [address] 38817- 8280 10 Mar, 2017 Type 2 diabetes mellitus with diabetic polyneuropathy E11.42 ; Type 2 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 ; Type 2 diabetes mellitus with foot ulcer E11.621 ; Essential hypertension I10 ; Hypoxemia R09.02 and Generalized osteoarthritis M15.9 [place] [address] [address] 00[address] Mar, Chronic kidney disease, stage 3 (moderate) N18.3 ; Acute cystitis without hematuria N30.00 ; Essential hypertension I10 ; Muscle spasms of neck M62.838 ; Type 2 diabetes mellitus with diabetic polyneuropathy E11.42 and BMI 50.0-59.9, adult Z68.43 [facility] [id number] [place] [address] 73807- 5264 Feb, [facility] [id number] [place] [address] 92055 -8758 Feb, [facility] [id number] [place] [address] 45213- 1147 Feb, [facility] [id number] [place] [address] 30901- 8205 Feb, [facility] [id number] [place] [address] 49523- 0205 Feb, [facility] [id number] [place] [address] 25797- 1516 Feb, [facility] [id number] [place] [address] 42280- 9647 Feb, Mixed hyperlipidemia E78.2 [facility] [address] [place] [address] 36377- 4654 Feb, [facility] [id number] [place] [address] 61241- 6015 Jan, [facility] [id number] [place] [address] 83128- 1163 Jan, Generalized osteoarthritis M15.9 [facility] [id number] [place] [address] 42668- 2766 Oct, [facility] [address] [place] [address] 98770- 2100 Jul, [facility] [id number] [place] [address] 00411- 2968 13 Jul, 2016 [place] [id number] [place] [address] 73246- 1428 Jul, Type 2 diabetes mellitus with hyperglycemia E11.65 ; Chronic kidney disease, stage 3 (moderate) N18.3 ; Type 2 diabetes mellitus with foot ulcer E11.621 ; Type 2 diabetes mellitus with diabetic polyneuropathy E11.42 ; Generalized osteoarthritis M15.9 ; Trochanteric bursitis of left hip M70.62 and Tinea pedis of both feet B35.3 [place] [id number] [place] [address] 32568- 9372 13 Jun, 2016 [place] [address] 65587- 3961 Apr, [place] [id number] [place] [address] 29667- 4579 Apr, [place] [id number] [place] [address] 96894- 9793 Mar, [place] [id number] [place] [address] 53758- 9162 Feb, Encounter for immunization Z23 [place] [id number] [place] [address] 03323- 3985 Feb, [place] [id number] [place] [address] 49234- 0745 Feb, Type 2 diabetes mellitus with hyperglycemia E11.65 ; Encounter for immunization Z23 ; Diarrhea, unspecified type R19.7 ; Essential hypertension I10 ; Mixed hyperlipidemia E78.2 ; Hypoxia R09.02 ; 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 and Type 2 diabetes mellitus with foot ulcer E11.621 [place] [id number] [place] [address] 15176- 2688 Jan, [place] [id number] [place] [address] 82870- 1108 Jan, Type 2 diabetes mellitus with hyperglycemia E11.65 and Pneumonia due to infectious organism, unspecified laterality, unspecified part of lung J18.9 [facility] [id number] [place] [address] 28758- 6872 19 Jan, 2016 [facility] [id number] [place] [address] 22053- 8174 16 Jan, 2016 [facility] [id number] [place] [address] 50265- 5678 Oct, Type 2 diabetes mellitus with hyperglycemia E11.65 ; Generalized osteoarthritis M15.9 and Chronic prescription opiate use Z79.891 [facility] [id number] [place] [address] 05003- 5683 September, [facility] [id number] [place] [address] 50201- 0454 Aug, [facility] [address] 67875- 9001 Aug, [facility] [id number] [place] [address] 10214- 4289 Aug, [facility] [id number] [place] [address] 86816- 5325 Aug, [facility] [id number] [place] [address] 01269- 4094 Jun, [facility] [id number] [place] [address] 80550- 2181 Jun, Type 2 diabetes mellitus with hyperglycemia E11.65 ; Mixed hyperlipidemia E78.2 ; Vaginal itching L29.8 ; Neck muscle spasm M62.838 and Skin abrasion T14.8 [facility] [id number] [place] [address] 34104- 8331 Apr, [facility] [id number] [place] [address] 03127- 6397 Apr, [facility] [id number] [place] [address] 93927- 8832 Mar, [facility] [id number] [place] [address] 17025- 7752 Feb, [facility] [id number] [place] [address] 18626- 0328 Feb, Type 2 diabetes mellitus with hyperglycemia E11.65 ; Type 2 diabetes mellitus with foot ulcer E11.621 ; Type 2 diabetes mellitus with diabetic polyneuropathy E11.42 and Encounter for immunization Z23 [facility] [id number] [place] [address] 60864- 6588 Jan, Hypertension 401.9 ; Uncontrolled type 2 diabetes mellitus 250.02 ; Right shoulder pain 719.41 and Ulcer of heel and midfoot 707.14 [place] [id number] [place] [address] 12715- 3428 Dec, Diabetes with other specified manifestations, type II or unspecified type, not stated as uncontrolled 250.80 ; Ulcer of heel and midfoot 707.14 ; Hypertension 401.9 ; Hip pain, left 719.45 and Acute anxiety 300.00 [place] [id number] [place] [address] 07213- 3133 Nov, [facility] [id number] [place] [address] 94544- 8808 Nov, [facility] [id number] [place] [address] 96383- 1333 September, Anxiety attack 300.01 and Cellulitis 682.9 [facility] [id number] [place] [address] 67964- 3509 September, [facility] [id number] [place] [address] 06590- 7505 September, [facility] [id number] [place] [address] [id number]- 1955 September, [facility] [id number] [place] [address] 72040- 2286 Aug, [facility] [place] [facility] [address] [id number] [place] [address]- 4715 13 Aug, 2014 [facility] [place] [facility] [address] [id number] [place] [address]- 8412 13 Jul, 2014 [facility] [place] [facility] [address] [id number] [place] [address]- 1898 13 Jul, 2014 [facility] [place] [facility] [address] [id number] [place] [address]- 2662 05 Jul, 2014 [facility] [place] [facility] [address] [id number] [place] [address]- 5792 13 May, 2014 [facility] [place] [facility] [address] [id number] [place] [address]- 6148 May, [facility] [place] [facility] [address] [id number] [place] [address]- 9421 Mar, [facility] [place] [facility] [address] [id number] [place] [address]- 8256 Mar, [facility] [place] [facility] [address] [id number] [place] [address]- 4538 Mar, [facility] [place] [facility] [address] [id number] [place] [address]- 4381 Mar, [facility] [place] [facility] [address] [id number] [place] [address]- 0563 Mar, [facility] [place] [facility] [address] [id number] [place] [address]- 7868 Mar, [facility] [place] [facility] [address] [id number] [place] [address]- 8032 Mar, [facility] [place] [facility] [address] [id number] [place] [address]- 2850 14 Feb, 2014 [facility] [place] [facility] [address] [id number] [place] [address]- 4769 14 Feb, 2014 [facility] [place] [facility] [address] [id number] [place] [address]- 2546 30 Sep, 2013 [facility] [place] [facility] [address] [id number] [place] [address] 2546 30 Sep, 2013 [facility] [place] [facility] [address] [id number] [place] [address] 2546 26 Sep, 2013 [facility] [place] [facility] [address] [id number] [place] [address] 2546 26 Sep, 2013 [facility] [place] [facility] [address] [id number] [place] [address] 2541 25 Sep, 2013 [facility] [place] [facility] [address] [id number] [place] [address] 2541 25 Sep, 2013 [facility] [place] [facility] [address] [id number] [place] [address]- 8496 25 Sep, 2013 [facility] [place] [facility] [address] [id number] [place] [address]- 2702 25 Sep, 2013 [facility] [place] [facility] [address] [id number] [place] [address] 2544 18 Sep, 2013 [facility] [place] [facility] [address] [id number] [place] [address] 2547 18 Sep, 2013 [facility] [place] [facility] [address] [id number] [place] [address] 2541 06 Sep, 2013 [facility] [place] [facility] [address] [id number] [place] [address] 2540 06 Sep, 2013 [facility] [place] [facility] [address] [id number] [address] 2546 05 Sep, 2013 [facility] [place] [facility] [address] [id number] [place] [address] 2546 05 Sep, 2013 [facility] [place] [facility] [address] [id number] [place] [address] 2546 05 Sep, 2013 [facility] [place] [facility] [address] [id number] [place] [address] 2546 05 Sep, 2013 [facility] [place] [facility] [address] [id number] [place] [address]- 0085 05 Jan, 2013 [facility] [place] [facility] [address] [id number] [place] [address]- 1294 Jan, 2013 [facility] [place] [facility] [address] [id number] [place] [address]- 7113 Dec, [facility] [place] [facility] [address] [id number] [place] [address]- 2066 Dec, [facility] [place] [facility] [address] [id number] [place] [address]- 4385 Dec, 2013 [facility] [place] [facility] [address] [id number] [place] [address]- 7437 Dec, [facility] [place] [facility] [address] [id number] [place] [address]- 4046 Dec, [facility] [place] [facility] [address] [id number] [place] [address]- 7286 Dec, [facility] [place] [facility] [address] [id number] [place] [address]- 9510 Dec, [facility] [place] [facility] [address] [id number] [place] [address]- 3310 Dec, [facility] [place] [facility] [address] [id number] [place] [address]- 0064 Dec, [facility] [place] [facility] [address] [id number] [place] [address]- 7053 Dec, [facility] [place] [facility] [address] [id number] [place] [address]- 4457 Nov, [facility] [place] [facility] [address] [id number] [place] [address]- 8939 Nov, [facility] [place] [facility] [address] [id number] [place] [address]- 4139 Nov, [facility] [place] [facility] [address] [id number] [place] [address]- 6459 Nov, [facility] [place] [facility] [address] [id number] [place] [address]- 3354 Nov, [facility] [place] [facility] [address] [id number] [place] [address]- 5228 Nov, [facility] [place] [facility] [address] [id number] [place] [address]- 0470 Oct, [facility] [place] [facility] [address] [id number] [place] [address]- 2198 Oct, [facility] [place] [facility] [address] [id number] [place] [address]- 5685 Oct, [facility] [place] [facility] [address] [id number] [place] [address]- 6218 Oct, [facility] [place] [facility] [address] [id number] [place] [address]- 7759 Oct, [facility] [place] [facility] [address] [id number] [place] [address]- 3987 Oct, [facility] [place] [facility] [address] [id number] [place] [address] Oct, [facility] [place] [facility] [address] [id number] [place] [address] Oct, [facility] [place] [facility] [address] [id number] [place] [address] Oct, [facility] [place] [facility] [address] [id number], [place] [address] Oct, [facility] [place] [facility] [address] [id number] [place] [address] Oct, [facility] [place] [facility] [address] [id number] [place] [address] Oct, [facility] [place] [facility] [address] [id number] [place] [address] September, [facility] [place] [facility] [address] [id number], [place] [address] September, [facility] [place] [facility] [address] [id number] [place] [address] September, [facility] [place] [facility] [address] [id number] [place] [address] Aug, [facility] [place] [facility] [address] [facility] [id number] [place] [address] Aug, [facility] [place] [facility] [address] [id number] [place] [address] Jul, [facility] [place] [facility] [address] [id number] [place] [address] Jul, [facility] [place] [facility] [address] [id number] [place] [address] Jul, [facility] [place] [facility] [address] [facility] [id number] [place] [address] Jul, [facility] [place] [facility] [address] [id number] [place] [address] Jul, [facility] [place] [facility] [address] [id number] [place] [address] Jul, [facility] [place] [facility] [address] [facility] [id number] [place] [address] Jul, [facility] [place] [facility] [address] [id number] [place] [address] Jul, [facility] [place] [facility] [address] [id number] [place] [address] Jul, [facility] [place] [facility] [address] [id number] [place] [address] Jul, [facility] [place] [facility] [address] [facility] [id number] [place] [address] Jun, [facility] [place] [facility] [address] [facility] [facility] [id number] [place] [address] Jun, [facility] [place] [facility] [address] [id number] [place] [address] Jun, [facility] [address] [id number] [place] [address] 42[address] Jun, [facility] [place] [facility] [address] [id number] [place] [address] 2941 May, [facility] [address] [id number] [place] [address] 2444 May, [facility] [address] [id number] [place] [address] 2713 Apr, [facility] [place] [facility] [address] [id number] [place] [address] 9862 Apr, [facility] [address] [id number] [place] [address] 7591 Apr, [facility] [address] [id number] [place] [address]- 8494 Apr, [facility] [address] [id number] [place] [address] 9505 Apr, [facility] [address] [id number] [place] [address] 7037 Apr, [facility] [place] [facility] [address] [id number] [place] [address] 7230 Apr, [facility] [place] [facility] [address] [id number] [place] [address]- 5701 Apr, [facility] [place] [facility] [address] [id number] [place] [address] 4932 Mar, [facility] [place] [facility] [address] [id number] [place] [address]- 3526 Mar, [facility] [place] [facility] [address] [id number] [place] [address] 7600 Mar, [facility] [place] [facility] [address] [id number] [place] [address]- 4588 Mar, [facility] [place] [facility] [address] [id number] [place] [address]- 5351 08 Mar, 2013 [facility] [place] [facility] [address] [id number] [place] [address]- 9868 08 Mar, 2013 [facility] [place] [facility] [address] [id number] [place] [address]- 1601 30 Feb, 2013 [facility] [place] [facility] [address] [id number] [place] [address]- 5733 30 Feb, 2013 [facility] [place] [facility] [address] [id number] [place] [address] Feb, [facility] [place] [facility] [address] [id number] [place] [address]- 9608 18 Feb, 2013 [facility] [place] [facility] [address] [id number] [place] [address]- 2068 14 Feb, 2013 [facility] [place] [facility] [address] [id number] [place] [address]- 5163 14 Feb, 2013 [facility] [place] [facility] [address] [id number] [place] [address]- 6551 04 Feb, 2013 [facility] [place] [facility] [address] [id number] [place] [address]- 3535 27 Jan, 2013 [facility] [place] [facility] [address] [id number] [place] [address]- 5444 26 Jan, 2013 [facility] [place] [facility] [address] [id number] [place] [address]- 4308 19 Jan, 2013 [facility] [place] [facility] [address] [id number] [place] [address]- 8634 05 Jan, 2013 [facility] [place] [facility] [address] [id number] [place] [address] 16 Dec, 2012 [facility] [place] [facility] [address] [id number] [place] [address] Dec, [facility] [place] [facility] [address] [id number] [place] [address]- 2545 Dec, [facility] [address] [id number] [place] [address]- 6779 Nov, [facility] [place] [facility] [address] [id number] [place] [address]- 7116 Nov, [facility] [address] [id number] [place] [address]- 4302 Nov, [facility] [address] [id number] [place] [address]- 9936 Nov, [facility] [address] [id number] [place] [address]- 6614 Nov, [facility] [address] [id number] [place] [address]- 8386 Nov, [facility] [address] [id number] [place] [address]- 5005 Oct, [facility] [address] [id number] [place] [address]- 4746 Oct, [facility] [address] [id number] [place] [address]- 9092 Oct, [facility] [address] [id number] [place] [address]- 7885 Oct, [facility] [place] [facility] [address] [id number] [place] [address]- 1996 Oct, [facility] [address] [id number] [place] [address]- 0154 Oct, [facility] [place] [facility] [address] [id number] [place] [address]- 1811 September, [facility] [place] [facility] [address] [id number] [place] [address]- 4896 September, [facility] [place] [facility] [address] [id number] [place] [address]- 2273 September, [facility] [address] [id number] [place] [address]- 1153 September, [facility] [address] [id number] [place] [address]- 1157 Aug, [facility] [address] [id number] [place] [address]- 9326 Aug, [facility] [address] [id number] [place] [address]- 1227 28 Jul, 2012 [facility] [address] [id number] [place] [address]- 3470 Jul, [facility] [address] [id number] [place] [address]- 7518 Jul, [facility] [address] [id number] [place] [address]- 6529 Jul, [facility] [address] [id number] [place] [address]- 6480 Jul, [facility] [address] [id number] [place] [address]- 9346 Jul, [facility] [address] [id number] [place] [address]- 4612 Jun, [facility] [address] [id number] [place] [address]- 0906 Jun, [facility] [place] [facility] [address] [id number], [place] [address] 4818 May, [facility] [place] [facility] [address] [id number] [place] [address]- 8900 May, [facility] [place] [facility] [address] [id number] [place] [address]- 9836 Apr, [facility] [place] [facility] [address] [id number] [place] [address]- 4577 Apr, [facility] [place] [facility] [address] [id number] [place] [address]- 6116 13 Apr, 2012 [facility] [place] [facility] [address] [id number] [place] [address]- 2936 13 Apr, 2012 [facility] [place] [facility] [address] [id number] [place] [address]- 1676 10 Apr, 2012 [facility] [place] [facility] [address] [id number] [place] [address]- 3856 10 Apr, 2012 [facility] [place] [facility] [address] [id number] [place] [address]- 1446 07 Apr, 2012 [facility] [place] [facility] [address] [id number] [place] [address]- 4336 07 Apr, 2012 [facility] [place] [facility] [address] [id number] [place] [address]- 9567 07 Apr, 2012 [facility] [place] [facility] [address] [id number] [place] [address]- 7406 07 Apr, 2012 [facility] [place] [facility] [address] [id number] [place] [address]- 8672 Apr, [facility] [place] [facility] [address] [id number] [place] [address]- 2506 Apr, [facility] [place] [facility] [address] [facility] [id number] [place] [address]- 5787 Apr, [facility] [place] [facility] [address] [id number] [place] [address]- 3376 Apr, [facility] [place] [facility] [address] [id number] [place] [address]- 1033 Apr, [facility] [place] [facility] [address] [id number] [place] [address]- 0106 Apr, [facility] [place] [facility] [address] [id number] [place] [address]- 1227 Mar, [facility] [place] [facility] [address] [facility] [id number] [place] [address]- 0959 Mar, [facility] [place] [facility] [address] [id number] [place] [address]- 2181 Mar, [facility] [place] [facility] [address] [id number] [place] [address]- 5977 Mar, [facility] [place] [facility] [address] [id number] [place] [address]- 4455 Mar, [facility] [place] [facility] [address] [id number] [place] [address]- 0283 Mar, [facility] [place] [facility] [address] [id number] [place] [address]- 2213 Mar, [facility] [place] [facility] [address] [id number] [place] [address]- 6975 Mar, [facility] [place] [facility] [address] [id number] [place] [address]- 2060 Mar, [facility] [place] [facility] [address] [id number] [place] [address]- 3535 Mar, [facility] [place] [facility] [address] [id number] [place] [address]- 0747 Feb, [facility] [place] [facility] [address] [id number] [place] [address]- 2121 Feb, [facility] [place] [facility] [address] [facility] [id number] [place] [address]- 6002 Feb, [facility] [place] [facility] [address] [id number] [place] [address]- 5834 Feb, [facility] [place] [facility] [address] [id number] [place] [address]- 0800 Feb, [facility] [place] [facility] [address] [id number] [place] [address]- 6260 Feb, [facility] [place] [facility] [address] [id number] [place] [address]- 1709 Jan, [facility] [place] [facility] [address] [id number] [place] [address]- 0873 Dec, [facility] [place] [facility] [address] [id number] [place] [address]- 3547 Dec, [facility] [place] [facility] [address] [id number] [place] [address]- 0833 Dec, [facility] [place] [facility] [address] [id number] [place] [address]- 0079 Dec, [facility] [place] [facility] [address] [id number] [place] [address]- 7960 Nov, [facility] [place] [facility] [address] [id number] [place] [address]- 0001 Nov, [facility] [place] [facility] [address] [id number] [place] [address]- 0929 Nov, [facility] [place] [facility] [address] [id number] [place] [address]- 4680 Nov, [facility] [place] [facility] [address] [id number] [place] [address]- 0382 Oct, [facility] [place] [facility] [address] [id number] [place] [address]- 4441 Oct, [facility] [place] [facility] [address] [id number] [place] [address]- 6812 Oct, [facility] [place] [facility] [address] [id number] [place] [address]- 1508 Oct, [facility] [place] [facility] [address] [id number] [place] [address]- 8352 Oct, [facility] [place] [facility] [address] [id number] [place] [address]- 8840 September, [facility] [place] [facility] [address] [id number] [place] [address]- 1734 September, [facility] [place] [facility] [address] [id number] [place] [address]- 5869 September, [facility] [place] [facility] [address] [id number] [place] [address]- 1856 September, [facility] [address] [id number] [place] [address]- 9467 September, [facility] [address] [id number] [place] [address]- 9045 September, [facility] [address] [id number] [place] [address]- 7559 September, [facility] [address] [id number] [place] [address]- 6246 September, [facility] [address] [id number] [place] [address]- 7741 Aug, [facility] [address] [id number] [place] [address]- 1057 Aug, [facility] [address] [id number] [place] [address]- 1491 Aug, [facility] [address] [id number] [place] [address]- 0668 Aug, [facility] [address] [id number] [place] [address]- 0333 18 Aug, 2011 [facility] [address] [id number] [place] [address]- 8288 17 Aug, 2011 [facility] [address] [id number] [place] [address]- 8022 13 Aug, 2011 [facility] [address] [id number] [place] [address]- 9584 12 Aug, 2011 [facility] [address] [id number] [place] [address]- 4634 10 Aug, 2011 [facility] [address] [id number] [place] [address]- 8800 09 Aug, 2011 [facility] [address] [id number] [place] [address]- 9900 02 Aug, 2011 [facility] [address] [id number] [place] [address]- 5066 Aug, [facility] [place] [facility] [address] [id number] [place] [address]- 9397 29 Jul, 2011 [facility] [place] [facility] [address] [id number] [place] [address]- 6857 28 Jul, 2011 [facility] [place] [facility] [address] [id number] [place] [address]- 9206 27 Jul, 2011 [facility] [place] [facility] [address] [id number] [place] [address]- 7542 23 Jul, 2011 [facility] [place] [facility] [address] [id number] [place] [address]- 7524 Jul, [facility] [place] [facility] [address] [id number] [place] [address]- 3512 Jul, [facility] [place] [facility] [address] [id number] [place] [address]- 7798 14 Jul, 2011 [facility] [place] [facility] [address] [id number] [place] [address]- 0408 13 Jul, 2011 [facility] [place] [facility] [address] [id number] [place] [address]- 6611 Jul, [facility] [place] [facility] [address] [id number] [place] [address]- 0189 24 Jun, 2011 [facility] [place] [facility] [address] [id number] [place] [address]- 8891 Jun, [facility] [place] [facility] [address] [id number] [place] [address]- 1781 Jun, [facility] [place] [facility] [address] [id number] [place] [address]- 2746 14 Jun, 2011 [facility] [place] [facility] [address] [id number] [place] [address]- 8096 02 Jun, 2011 [facility] [place] [facility] [address] [id number] [place] [address]- 0868 02 Jun, 2011 [facility] [address] [id number] [place] [address]- 5456 Jun, [facility] [address] [id number] [place] [address]- 5236 May, [facility] [address] [id number] [place] [address]- 4954 May, [facility] [address] [id number] [place] [address]- 1740 May, [facility] [address] [id number] [place] [address]- 1951 May, [facility] [address] [id number] [place] [address]- 9959 May, [facility] [address] [id number] [place] [address]- 8506 May, [facility] [address] [id number] [place] [address]- 4701 May, [facility] [address] [id number] [place] [address]- 4565 Apr, [facility] [address] [id number] [place] [address]- 5340 30 Apr, 2011 [facility] [address] [id number] [place] [address] 2546 Apr, [facility] [address] [id number] [place] [address] 2549 Apr, [facility] [place] [facility] [address] [id number] [place] [address] 2546 Apr, [facility] [address] [id number] [place] [address] 2546 Apr, [facility] [address] [id number] [place] [address]- 3502 13 Apr, 2011 [facility] [place] [facility] [address] [id number] [place] [address]- 9001 08 Apr, 2011 [facility] [place] [facility] [address] [id number] [place] [address]- 6843 Apr, [facility] [place] [facility] [address] [id number] [place] [address]- 9084 Mar, [facility] [place] [facility] [address] [id number] [place] [address]- 7101 Mar, [facility] [place] [facility] [address] [id number] [place] [address]- 6018 Mar, [facility] [place] [facility] [address] [id number] [place] [address]- 2125 Mar, [facility] [place] [facility] [address] [id number] [place] [address]- 1796 Mar, [facility] [address] [id number] [place] [address]- 9371 Feb, [facility] [place] [facility] [address] [id number] [place] [address]- 9772 Feb, [facility] [place] [facility] [address] [id number] [place] [address]- 8684 Feb, [facility] [place] [facility] [address] [id number] [place] [address]- 3610 Dec, [facility] [place] [facility] [address] [id number] [place] [address]- 5426 Nov, [facility] [place] [facility] [address] [id number] [place] [address]- 7933 Apr, [facility] [place] [facility] [address] [id number] [place] [address]- 3889 Apr, [facility] [place] [facility] [address] [id number] [place] [address] 2543 16 Apr, 2010 [facility] [place] [facility] [address] [id number], [place] [address]- 4345 Apr, [facility] [address] [facility] [id number], [place] [address]- 8012 Apr, [facility] [address] [facility] [id number] 2146 Apr, [facility] [id number], [place] [address]- 7991 Apr, [facility] [address] [facility] [id number], [place] [address]- 6566 Apr, [facility] [address] [facility] [id number], [place] [address]- 5877 Mar, [facility] [address] [id number], [place] [address]- 0115 Mar, [facility] [id number], [place] [address]- 8059 Mar, [facility] [id number], [place] [address]- 1055 Mar, [facility] [id number], [place] [address]- 2622 Mar, [facility] [id number], [place] [address]- 6370 Mar, [facility] [id number], [place] [address]- 4605 Mar, [facility] [id number], [place] [address]- 2548 Mar, [facility] [id number] [address] Mar, [facility] [id number], [place] [address] Mar, IMMUNIZATIONS No Known Immunizations SOCIAL HISTORY Never Assessed REASON FOR VISIT Medication update PLAN OF CARE VITAL SIGNS MEDICATIONS Medication Instructions Dosage Frequency Start Date End Date Duration Status Aranesp (Albumin Free) 40 MCG/ML Injection every 2 weeks 20 mcg September, Active RESULTS No Results PROCEDURES No Known [...]
--- OUTSIDE RECORDS SUMMARY | 2018-04-22 23:16 | XMS REPORT ---
Author Author RICHMOND MARY [facility] Address [address] [place] [address] Care Team Providers Care Customer Sales Specialist Name Role Phone RICHMONDSRIDHARMARY Unavailable PROBLEMS Type Condition ICD9-CM Code HFA14-SO Code Onset Dates Condition Status SNOMED Code Problem Iron deficiency anemia, unspecified iron deficiency anemia type D50.9 Active 75999443 Problem Severe sleep apnea G47.30 Active 76370493 Problem Decreased diffusion capacity R94.2 Active 32111370 Problem Stenosis of carotid artery, unspecified laterality I65.29 Active 50190927 Problem Coronary artery disease involving curyung coronary artery of curyung heart, angina presence unspecified I25.10 Active [id number] Problem Generalized osteoarthritis M15.9 Active 700083962 Problem Aortic valve sclerosis I35.8 Active 33210295 Problem Hypoxemia R09.02 Active 621295054 Problem Essential hypertension I10 Active 97939460 Problem BMI 50.0-59.9, adult Z68.43 Active 006141320 Problem Mixed hyperlipidemia E78.2 Active 739828516 Problem Port catheter in place Z95.828 Active 456690105 Problem Anxiety about health F41.8 Active 567529464 Problem Transient cerebral ischemia, unspecified type G45.9 Active 065009789 Problem Slow transit constipation K59.01 Active 91759168 Problem Bladder spasms N32.89 Active 982037518 Problem Type 2 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 Active 64014579 Problem 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 Active 3324493 Problem Renal osteodystrophy N25.0 Active 41054718 Problem Type 2 diabetes mellitus with unspecified complications E11.8 Active 76288570 Problem Chronic kidney disease, unspecified CKD stage N18.9 Active 685216700 Problem Pain R52 Active 70311640 Problem longterm 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.4 Active 191411639 Problem Type 2 diabetes mellitus with diabetic polyneuropathy E11.42 Active 496131731 Problem Anemia in other chronic diseases classified elsewhere D63.8 Active 927674689 Problem Type 2 diabetes mellitus with hyperglycemia E11.65 Active 93846067 Problem Type 2 diabetes mellitus with foot ulcer E11.621 Active 776868597 Problem Trochanteric bursitis of left hip M70.62 Active 758061948279621 Problem Presence of IVC filter Z95.828 Active 307171041 Problem Chronic kidney disease, stage 3 (moderate) N18.3 Active 595606557 Problem Diarrhea, unspecified type R19.7 Active 60634238 ALLERGIES No Information ENCOUNTERS Encounter Location Date Diagnosis [facility] [id number] [place] [address] 15582- 6386 Dec, Type 2 diabetes mellitus with hyperglycemia E11.65 [facility] [id number] [place] [address] 39283- 3076 Dec, Left leg pain M79.605 [facility] [address] [address]- 4121 Nov, Slow transit constipation K59.01 [facility] [id number] [place] [address] 66198- 3636 Nov, [employer] [address] [id number] Nov, Anemia due to acute blood loss D62 [facility] [id number] [place] [address] 88887- 9915 Nov, [facility] [id number] [place] [address] 70915- 1392 Nov, Bladder spasms N32.89 [facility] [id number] [place] [address] 69992- 8206 Nov, Pain R52 [employer] [address] [id number] Nov, Anemia due to acute blood loss D62 [facility] [id number] [place] [address] 73525- 7165 Nov, Pain in right hip M25.551 and Pain in left hip M25.552 [facility] [address] [address] Nov, [facility] [address] [address] 1355 Nov, [facility] [address], [place] [address] 8433 Nov, [facility] [id number] [place] [address] 95716- 0964 Nov, [facility] [id number] [address] 6669 Oct, [facility] [id number] [place] [address] 90206- 7070 Oct, [employer] [address] [id number] Oct, Encounter for examination for admission to group home Z02.2 ; Chronic kidney disease, unspecified CKD stage N18.9 ; Type 2 diabetes mellitus with unspecified complications E11.8 ; 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 ; Essential hypertension I10 ; Hypoxia R09.02 ; Severe sleep apnea G47.30 ; Stenosis of carotid artery, unspecified laterality I65.29 ; Generalized osteoarthritis M15.9 ; Coronary artery disease involving curyung coronary artery of curyung heart, angina presence unspecified I25.10 ; Port catheter in place Z95.828 and Hemorrhoids, unspecified hemorrhoid type K64.9 [facility] [id number] [address] 2477 Oct, [facility] [id number], [place] [address] 0193 Oct, [facility] [address], [place] [address] 9544 Oct, [facility] [id number], [place] [address] 3535 Oct, [facility] [id number], [place] [address] September, BMI 50.0-59.9, adult Z68.43 [facility] [id number] [place] [address] 95456- 2083 September, [facility] [address] 44601- 7307 September, [facility] [id number] [place] [address] 25973- 7129 Aug, Type 2 diabetes mellitus with foot ulcer E11.621 ; Transient cerebral ischemia, unspecified type G45.9 ; Essential hypertension I10 ; Mixed hyperlipidemia E78.2 and BMI 50.0-59.9, adult Z68.43 [facility] [id number] [place] [address] 62561- 3417 Aug, [facility] [address] 74804- 6585 14 Jul, 2017 Anxiety about health F41.8 and Mixed hyperlipidemia E78.2 [facility] [id number] [place] [address] 87947- 0054 13 Jul, 2017 [facility] [address] 60763- 3373 Jun, [facility] [id number] [place] [address] 27626- 6308 12 Jun, 2017 Type 2 diabetes mellitus with hyperglycemia E11.65 ; Type 2 diabetes mellitus with foot ulcer E11.621 ; Port catheter in place Z95.828 ; 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 ; Contact with and (suspected) exposure to potentially hazardous body fluids Z77.21 and BMI 50.0-59.9, adult Z68.43 [facility] [id number] [place] [address] 23032- 6502 May, [facility] [id number] [place] [address] 05265- 4240 May, Open wound of right great toe, subsequent encounter S91.101D [facility] [address], [place] [address]- 1657 May, [facility] [id number] [place] [address] 53645- 2596 Apr, [facility] [address], [place] [address]- 9827 Apr, [facility] [id number] [place] [address] 03524- 2868 Apr, [facility] [id number] [place] [address] 86228- 7528 Apr, Type 2 diabetes mellitus with diabetic polyneuropathy E11.42 [facility] [id number] [place] [address] 55737- 5256 13 Apr, 2017 Open wound of right great toe, subsequent encounter S91.101D [place] [id number] [place] [address] 72086- 4332 08 Apr, 2017 Open wound of right great toe, subsequent encounter S91.101D ; Breast pain, left N64.4 ; Breast cancer screening Z12.31 ; Type 2 diabetes mellitus with foot ulcer E11.621 ; Essential hypertension I10 and BMI 50.0-59.9, adult Z68.43 [facility] [address], [place] [address]- 8533 Mar, Encounter for immunization Z23 [facility] [id number] [place] [address] 18953- 2524 Mar, [facility] [address] [place] [address] 74589- 9104 Mar, [facility] [id number] [place] [address] 59748- 5895 10 Mar, 2017 Type 2 diabetes mellitus with diabetic polyneuropathy E11.42 ; Type 2 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 ; Type 2 diabetes mellitus with foot ulcer E11.621 ; Essential hypertension I10 ; Hypoxemia R09.02 and Generalized osteoarthritis M15.9 [facility] [address] [address]- 9084 Mar, Chronic kidney disease, stage 3 (moderate) N18.3 ; Acute cystitis without hematuria N30.00 ; Essential hypertension I10 ; Muscle spasms of neck M62.838 ; Type 2 diabetes mellitus with diabetic polyneuropathy E11.42 and BMI 50.0-59.9, adult Z68.43 [facility] [id number] [place] [address] 09737- 4659 Feb, [facility] [id number] [place] [address] 91130 -0256 Feb, [facility] [id number] [place] [address] 38091- 5053 Feb, [facility] [id number] [place] [address] 21109- 7835 Feb, [facility] [id number] [place] [address] 09780- 7815 Feb, [facility] [id number] [place] [address] 46774- 2412 Feb, [facility] [id number] [place] [address] 43750- 8181 Feb, Mixed hyperlipidemia E78.2 [facility] [id number] [place] [address] 56998- 8516 Feb, [facility] [id number] [place] [address] 47921- 9065 Jan, [facility] [id number] [place] [address] 38188- 6191 Jan, Generalized osteoarthritis M15.9 [facility] [id number] [place] [address] 72184- 8561 Oct, [facility] [id number] [place] [address] 60652- 0776 Jul, [facility] [id number] [place] [address] 59393- 7812 13 Jul, 2016 [facility] [id number] [place] [address] 99675- 4279 Jul, Type 2 diabetes mellitus with hyperglycemia E11.65 ; Chronic kidney disease, stage 3 (moderate) N18.3 ; Type 2 diabetes mellitus with foot ulcer E11.621 ; Type 2 diabetes mellitus with diabetic polyneuropathy E11.42 ; Generalized osteoarthritis M15.9 ; Trochanteric bursitis of left hip M70.62 and Tinea pedis of both feet B35.3 [facility] [id number] [place] [address] 56880- 1081 13 Jun, 2016 [facility] [address] 97249- 1883 Apr, [facility] [id number] [place] [address] 01509- 6459 Apr, [facility] [id number] [place] [address] 66114- 4274 Mar, [facility] [id number] [place] [address] 62827- 5691 Feb, Encounter for immunization Z23 [place] [id number] [place] [address] 04154- 9813 Feb, [place] [id number] [place] [address] 64232- 3251 Feb, Type 2 diabetes mellitus with hyperglycemia E11.65 ; Encounter for immunization Z23 ; Diarrhea, unspecified type R19.7 ; Essential hypertension I10 ; Mixed hyperlipidemia E78.2 ; Hypoxia R09.02 ; 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 and Type 2 diabetes mellitus with foot ulcer E11.621 [facility] [id number] [place] [address] 22479- 9609 Jan, [place] [id number] [place] [address] 59105- 7344 Jan, Type 2 diabetes mellitus with hyperglycemia E11.65 and Pneumonia due to infectious organism, unspecified laterality, unspecified part of lung J18.9 [facility] [id number] [place] [address] 84168- 6524 19 Jan, 2016 [facility] [id number] [place] [address] 16238- 8795 16 Jan, 2016 [facility] [id number] [place] [address] 36241- 1407 Oct, Type 2 diabetes mellitus with hyperglycemia E11.65 ; Generalized osteoarthritis M15.9 and Chronic prescription opiate use Z79.891 [facility] [id number] [place] [address] 22301- 2369 September, [facility] [id number] [place] [address] 64931- 6087 Aug, [facility] [address] 23995- 8656 Aug, [facility] [id number] [place] [address] 48731- 9558 Aug, [facility] [id number] [place] [address] 62855- 4719 Aug, [facility] [id number] [place] [address] 21952- 8511 Jun, [facility] [id number] [place] [address] 18733- 8237 Jun, Type 2 diabetes mellitus with hyperglycemia E11.65 ; Mixed hyperlipidemia E78.2 ; Vaginal itching L29.8 ; Neck muscle spasm M62.838 and Skin abrasion T14.8 [facility] [id number] [place] [address] 60448- 7974 Apr, [facility] [id number] [place] [address] 24358- 5378 Apr, [facility] [id number] [place] [address] 20390- 2898 Mar, [facility] [id number] [place] [address] 98999- 8118 Feb, [facility] [id number] [place] [address] 42038- 4947 Feb, Type 2 diabetes mellitus with hyperglycemia E11.65 ; Type 2 diabetes mellitus with foot ulcer E11.621 ; Type 2 diabetes mellitus with diabetic polyneuropathy E11.42 and Encounter for immunization Z23 [facility] [id number] [place] [address] 05328- 0350 Jan, Hypertension 401.9 ; Uncontrolled type 2 diabetes mellitus 250.02 ; Right shoulder pain 719.41 and Ulcer of heel and midfoot 707.14 [facility] [id number] [place] [address] 71349- 8203 Dec, Diabetes with other specified manifestations, type II or unspecified type, not stated as uncontrolled 250.80 ; Ulcer of heel and midfoot 707.14 ; Hypertension 401.9 ; Hip pain, left 719.45 and Acute anxiety 300.00 [facility] [id number] [place] [address] 22179- 5161 Nov, [facility] [id number] [place] [address] 84448- 8758 Nov, [facility] [id number] [place] [address] 95842- 3767 September, Anxiety attack 300.01 and Cellulitis 682.9 [facility] [id number] [place] [address] 59900- 3270 September, [facility] [id number] [place] [address] 86992- 7661 September, [facility] [id number] [place] [address] 37622749- 3939 September, [facility] [id number] [place] [address] 90306- 6071 Aug, [facility] [place] [facility] [address] [id number] [place] [address]- 4701 13 Aug, 2014 [facility] [place] [facility] [address] [id number] [place] [address]- 1698 13 Jul, 2014 [facility] [place] [facility] [address] [id number] [place] [address]- 9300 13 Jul, 2014 [facility] [place] [facility] [address] [id number] [place] [address]- 0487 05 Jul, 2014 [facility] [place] [facility] [address] [id number] [place] [address]- 6775 13 May, 2014 [facility] [place] [facility] [address] [id number] [place] [address]- 8639 May, [facility] [place] [facility] [address] [id number] [place] [address]- 5288 Mar, [facility] [place] [facility] [address] [id number] [place] [address]- 9366 Mar, [facility] [place] [facility] [address] [id number] [place] [address]- 8020 Mar, [facility] [place] [facility] [address] [id number] [place] [address]- 5647 Mar, [facility] [place] [facility] [address] [id number] [place] [address]- 7821 Mar, [facility] [place] [facility] [address] [id number] [place] [address]- 9072 Mar, [facility] [place] [facility] [address] [id number] [place] [address]- 7732 Mar, [facility] [place] [facility] [address] [id number] [place] [address]- 0704 14 Feb, 2014 [facility] [place] [facility] [address] [id number] [place] [address]- 8869 14 Feb, 2014 [facility] [place] [facility] [address] [id number] [place] [address]- 2546 30 Sep, 2013 [facility] [place] [facility] [address] [id number] [place] [address] 2546 30 Sep, 2013 [facility] [place] [facility] [address] [id number] [place] [address] 2546 26 Sep, 2013 [facility] [place] [facility] [address] [id number] [place] [address] 2546 26 Sep, 2013 [facility] [place] [facility] [address] [id number] [place] [address] 2545 25 Sep, 2013 [facility] [place] [facility] [address] [id number] [place] [address] 2542 25 Sep, 2013 [facility] [place] [facility] [address] [id number] [place] [address]- 6619 25 Sep, 2013 [facility] [place] [facility] [address] [id number] [place] [address]- 4989 25 Sep, 2013 [facility] [place] [facility] [address] [id number] [place] [address] 254 18 Sep, 2013 [facility] [place] [facility] [address] [id number] [place] [address] 2540 18 Sep, 2013 [facility] [place] [facility] [address] [id number] [place] [address] 2544 06 Sep, 2013 [facility] [place] [facility] [address] [id number] [place] [address] 2540 06 Sep, 2013 [facility] [place] [facility] [address] [id number], [place] [address] 2546 05 Sep, 2013 [facility] [place] [facility] [address] [id number] [place] [address] 2546 05 Sep, 2013 [facility] [place] [facility] [address] [id number] [place] [address] 2546 05 Sep, 2013 [facility] [place] [facility] [address] [id number] [place] [address] 2546 05 Sep, 2013 [facility] [place] [facility] [address] [id number] [place] [address]- 1829 05 Jan, 2013 [facility] [place] [facility] [address] [id number] [place] [address]- 6714 Jan, 2013 [facility] [place] [facility] [address] [id number] [place] [address]- 4665 Dec, [facility] [place] [facility] [address] [id number] [place] [address]- 1728 Dec, [facility] [place] [facility] [address] [id number] [place] [address]- 3663 Dec, 2013 [facility] [place] [facility] [address] [id number] [place] [address]- 5819 Dec, [facility] [place] [facility] [address] [id number] [place] [address]- 5884 Dec, [facility] [place] [facility] [address] [id number] [place] [address]- 8945 Dec, [facility] [place] [facility] [address] [id number] [place] [address]- 1695 Dec, [facility] [place] [facility] [address] [id number] [place] [address]- 3011 Dec, [facility] [place] [facility] [address] [id number] [place] [address]- 6096 Dec, [facility] [place] [facility] [address] [id number] [place] [address]- 4249 Dec, [facility] [place] [facility] [address] [id number] [place] [address]- 8418 Nov, [facility] [place] [facility] [address] [id number] [place] [address]- 9875 Nov, [facility] [place] [facility] [address] [id number] [place] [address]- 6886 Nov, [facility] [place] [facility] [address] [id number] [place] [address]- 7877 Nov, [facility] [place] [facility] [address] [id number] [place] [address]- 6165 Nov, [facility] [place] [facility] [address] [id number] [place] [address]- 4022 Nov, [facility] [place] [facility] [address] [id number] [place] [address]- 8921 Oct, [facility] [place] [facility] [address] [id number] [place] [address]- 8444 Oct, [facility] [place] [facility] [address] [id number] [place] [address]- 5326 Oct, [facility] [place] [facility] [address] [id number] [place] [address]- 3515 Oct, [facility] [place] [facility] [address] [id number] [place] [address]- 3114 Oct, [facility] [place] [facility] [address] [id number] [place] [address]- 7673 Oct, [facility] [place] [facility] [address] [id number] [place] [address]- 3842 Oct, [facility] [place] [facility] [address] [id number] [place] [address]- 2410 Oct, [facility] [place] [facility] [address] [id number] [place] [address]- 0017 Oct, [facility] [place] [facility] [address] [id number], [place] [address]- 5868 Oct, [facility] [place] [facility] [address] [id number] [place] [address]- 3279 Oct, [facility] [place] [facility] [address] [id number] [place] [address]- 9686 Oct, [facility] [place] [facility] [address] [id number] [place] [address]- 8053 September, [facility] [place] [facility] [address] [id number], [place] [address]- 2828 September, [facility] [place] [facility] [address] [id number] [place] [address]- 9540 September, [facility] [place] [facility] [address] [id number] [place] [address] Aug, [facility] [place] [facility] [address] [facility] [id number] [place] [address] Aug, [facility] [place] [facility] [address] [id number] [place] [address] Jul, [facility] [place] [facility] [address] [id number] [place] [address] Jul, [facility] [place] [facility] [address] [id number] [place] [address] Jul, [facility] [place] [facility] [address] [facility] [id number] [place] [address] Jul, [facility] [place] [facility] [address] [id number] [place] [address] Jul, [facility] [place] [facility] [address] [id number] [place] [address] Jul, [facility] [place] [facility] [address] [facility] [id number] [place] [address] Jul, [facility] [place] [facility] [address] [id number] [place] [address] Jul, [facility] [place] [facility] [address] [id number] [place] [address] Jul, [facility] [place] [facility] [address] [id number] [place] [address] Jul, [facility] [place] [facility] [address] [facility] [id number] [place] [address] Jun, [facility] [place] [facility] [address] [facility] [id number] [place] [address] Jun, [facility] [place] [facility] [address] [id number] [place] [address] Jun, [facility] [address] [id number] [place] [address] Jun, [facility] [place] [facility] [address] [id number] [place] [address] May, [facility] [address] [id number] [place] [address] May, [facility] [address] [id number] [place] [address] Apr, [facility] [place] [facility] [address] [id number] [place] [address] Apr, [facility] [place] [address] [id number] [place] [address] Apr, [facility] [address] [id number] [place] [address] Apr, [facility] [address] [id number] [place] [address] Apr, [facility] [address] [id number] [place] [address] Apr, [facility] [place] [facility] [address] [id number] [place] [address] Apr, [facility] [place] [facility] [address] [id number] [place] [address] Apr, [facility] [place] [facility] [address] [id number] [place] [address] Mar, [facility] [place] [facility] [address] [id number] [place] [address] Mar, [facility] [place] [facility] [address] [id number] [place] [address] Mar, [facility] [place] [facility] [address] [id number] [place] [address] 5[address] Mar, [facility] [place] [facility] [address] [id number] [place] [address] 1797 08 Mar, 2013 [facility] [place] [facility] [address] [id number] [place] [address]- 0927 08 Mar, 2013 [facility] [place] [facility] [address] [id number] [place] [address] 6204 30 Feb, 2013 [facility] [place] [facility] [address] [id number] [place] [address] 6124 30 Feb, 2013 [facility] [place] [facility] [address] [id number] [place] [address] Feb, [facility] [place] [facility] [address] [id number] [place] [address] 7417 18 Feb, 2013 [facility] [place] [facility] [address] [id number] [place] [address]- 6229 14 Feb, 2013 [facility] [place] [facility] [address] [id number] [place] [address]- 4830 14 Feb, 2013 [facility] [place] [facility] [address] [id number] [place] [address]- 9700 04 Feb, 2013 [facility] [place] [facility] [address] [id number] [place] [address]- 5874 27 Jan, 2013 [facility] [place] [facility] [address] [id number] [place] [address]- 5907 26 Jan, 2013 [facility] [place] [facility] [address] [id number] [place] [address]- 2930 19 Jan, 2013 [facility] [place] [facility] [address] [id number] [place] [address]- 3509 05 Jan, 2013 [facility] [place] [facility] [address] [id number] [place] [address] 16 Dec, 2012 [facility] [place] [facility] [address] [id number] [place] [address] Dec, [facility] [place] [facility] [address] [id number] [place] [address]- 254 Dec, [facility] [address] [id number] [place] [address] 1887 Nov, [facility] [place] [facility] [address] [id number] [place] [address]- 5296 Nov, [facility] [address] [id number] [place] [address]- 9142 Nov, [facility] [address] [id number] [place] [address]- 8902 Nov, [facility] [address] [id number] [place] [address]- 6025 Nov, [facility] [address] [id number] [place] [address]- 8696 Nov, [facility] [address] [id number] [place] [address]- 1002 Oct, [facility] [address] [id number] [place] [address]- 0657 Oct, [facility] [address] [id number] [place] [address]- 8806 Oct, [facility] [address] [id number] [place] [address]- 0548 Oct, [facility] [place] [facility] [address] [id number] [place] [address]- 4851 Oct, [facility] [address] [id number] [place] [address]- 7752 Oct, [facility] [place] [facility] [address] [id number] [place] [address]- 5563 September, [facility] [place] [facility] [address] [id number] [place] [address]- 7166 September, [facility] [place] [facility] [address] [id number] [place] [address]- 6533 September, [facility] [address] [id number] [place] [address]- 7045 September, [facility] [address] [id number] [place] [address]- 1131 Aug, [facility] [address] [id number] [place] [address]- 8226 Aug, [facility] [address] [id number] [place] [address]- 4205 28 Jul, 2012 [facility] [address] [id number] [place] [address]- 7791 Jul, [facility] [address] [id number] [place] [address]- 8866 Jul, [facility] [address] [id number] [place] [address]- 3141 Jul, [facility] [address] [id number] [place] [address]- 9077 Jul, [facility] [address] [id number] [place] [address]- 3265 Jul, [facility] [address] [id number] [place] [address]- 3236 Jun, [facility] [address] [id number] [place] [address]- 5732 Jun, [facility] [place] [facility] [address] [id number], [place] [address] 7[address] May, [facility] [place] [facility] [address] [id number] [place] [address]- 8273 May, [facility] [place] [facility] [address] [id number] [place] [address]- 5856 Apr, [facility] [place] [facility] [address] [id number] [place] [address]- 5904 Apr, [facility] [place] [facility] [address] [id number] [place] [address]- 7778 13 Apr, 2012 [facility] [place] [facility] [address] [id number] [place] [address]- 4876 13 Apr, 2012 [facility] [place] [facility] [address] [id number] [place] [address]- 1866 10 Apr, 2012 [facility] [place] [facility] [address] [id number] [place] [address]- 6396 10 Apr, 2012 [facility] [place] [facility] [address] [id number] [place] [address]- 9516 07 Apr, 2012 [facility] [place] [facility] [address] [id number] [place] [address]- 4456 07 Apr, 2012 [facility] [place] [facility] [address] [id number] [place] [address]- 6652 07 Apr, 2012 [facility] [place] [facility] [address] [id number] [place] [address]- 9076 07 Apr, 2012 [facility] [place] [facility] [address] [id number] [place] [address]- 4685 Apr, [facility] [place] [facility] [address] [id number] [place] [address]- 8396 Apr, [facility] [place] [facility] [address] [facility] [id number] [place] [address]- 3921 Apr, [facility] [place] [facility] [address] [id number] [place] [address]- 8596 Apr, [facility] [place] [facility] [address] [id number] [place] [address]- 8723 Apr, [facility] [place] [facility] [address] [id number] [place] [address]- 2136 Apr, [facility] [place] [facility] [address] [id number] [place] [address]- 5490 Mar, [facility] [place] [facility] [address] [facility] [id number] [place] [address]- 5431 Mar, [facility] [place] [facility] [address] [id number] [place] [address]- 7528 Mar, [facility] [place] [facility] [address] [id number] [place] [address]- 0467 Mar, [facility] [place] [facility] [address] [id number] [place] [address]- 8371 Mar, [facility] [place] [facility] [address] [id number] [place] [address]- 1584 Mar, [facility] [place] [facility] [address] [id number] [place] [address]- 3710 Mar, [facility] [place] [facility] [address] [id number] [place] [address]- 2778 Mar, [facility] [place] [facility] [address] [id number] [place] [address]- 5351 Mar, [facility] [place] [facility] [address] [id number] [place] [address]- 2987 Mar, [facility] [place] [facility] [address] [id number] [place] [address]- 1170 Feb, [facility] [place] [facility] [address] [id number] [place] [address]- 8652 Feb, [facility] [place] [facility] [address] [facility] [id number] [place] [address]- 4231 Feb, [facility] [place] [facility] [address] [id number] [place] [address]- 1470 Feb, [facility] [place] [facility] [address] [id number] [place] [address]- 6657 Feb, [facility] [place] [facility] [address] [id number] [place] [address]- 3064 Feb, [facility] [place] [facility] [address] [id number] [place] [address]- 5480 Jan, [facility] [place] [facility] [address] [id number] [place] [address]- 3379 Dec, [facility] [place] [facility] [address] [id number] [place] [address]- 5074 Dec, [facility] [place] [facility] [address] [id number] [place] [address]- 4209 Dec, [facility] [place] [facility] [address] [id number] [place] [address]- 7101 Dec, [facility] [place] [facility] [address] [id number] [place] [address]- 9155 Nov, [facility] [place] [facility] [address] [id number] [place] [address]- 1817 Nov, [facility] [place] [facility] [address] [id number] [place] [address]- 7987 Nov, [facility] [place] [facility] [address] [id number] [place] [address]- 3801 Nov, [facility] [place] [facility] [address] [id number] [place] [address]- 6125 Oct, [facility] [place] [facility] [address] [id number] [place] [address]- 5223 Oct, [facility] [place] [facility] [address] [id number] [place] [address]- 8265 Oct, [facility] [place] [facility] [address] [id number] [place] [address]- 3246 Oct, [facility] [place] [facility] [address] [id number] [place] [address]- 4259 Oct, [facility] [place] [facility] [address] [id number] [place] [address]- 3651 September, [facility] [place] [facility] [address] [id number] [place] [address]- 5592 September, [facility] [place] [facility] [address] [id number] [place] [address]- 2363 September, [facility] [place] [facility] [address] [id number] [place] [address]- 7644 September, [facility] [address] [id number] [place] [address]- 8015 September, [facility] [address] [id number] [place] [address]- 0577 September, [facility] [address] [id number] [place] [address]- 3743 September, [facility] [address] [id number] [place] [address]- 2352 September, [facility] [address] [id number] [place] [address]- 6590 Aug, [facility] [address] [id number] [place] [address]- 0308 Aug, [facility] [address] [id number] [place] [address]- 6109 Aug, [facility] [address] [id number] [place] [address]- 6998 Aug, [facility] [address] [id number] [place] [address]- 5928 18 Aug, 2011 [facility] [address] [id number] [place] [address]- 8218 17 Aug, 2011 [facility] [address] [id number] [place] [address]- 6617 13 Aug, 2011 [facility] [address] [id number] [place] [address]- 0147 12 Aug, 2011 [facility] [address] [id number] [place] [address]- 4974 10 Aug, 2011 [facility] [address] [id number] [place] [address]- 0382 09 Aug, 2011 [facility] [address] [id number] [place] [address]- 6878 02 Aug, 2011 [facility] [address] [id number] [place] [address]- 7378 Aug, [facility] [place] [facility] [address] [id number] [place] [address]- 9441 29 Jul, 2011 [facility] [place] [facility] [address] [id number] [place] [address]- 3512 28 Jul, 2011 [facility] [place] [facility] [address] [id number] [place] [address]- 8026 27 Jul, 2011 [facility] [place] [facility] [address] [id number] [place] [address]- 1521 23 Jul, 2011 [facility] [place] [facility] [address] [id number] [place] [address]- 5584 Jul, [facility] [place] [facility] [address] [id number] [place] [address]- 5002 Jul, [facility] [place] [facility] [address] [id number] [place] [address]- 9918 14 Jul, 2011 [facility] [place] [facility] [address] [id number] [place] [address]- 8633 13 Jul, 2011 [facility] [place] [facility] [address] [id number] [place] [address]- 4238 Jul, [facility] [place] [facility] [address] [id number] [place] [address]- 2373 24 Jun, 2011 [facility] [place] [facility] [address] [id number] [place] [address]- 1101 Jun, [facility] [place] [facility] [address] [id number] [place] [address]- 7744 Jun, [facility] [place] [facility] [address] [id number] [place] [address]- 7686 14 Jun, 2011 [facility] [place] [facility] [address] [id number] [place] [address]- 2786 02 Jun, 2011 [facility] [place] [facility] [address] [id number] [place] [address]- 4442 02 Jun, 2011 [facility] [address] [id number] [place] [address]- 0806 Jun, [facility] [address] [id number] [place] [address]- 8396 May, [facility] [address] [id number] [place] [address]- 2302 May, [facility] [address] [id number] [place] [address]- 0560 May, [facility] [address] [id number] [place] [address]- 6383 May, [facility] [address] [id number] [place] [address]- 0659 May, [facility] [address] [id number] [place] [address]- 7179 May, [facility] [address] [id number] [place] [address]- 1518 May, [facility] [address] [id number] [place] [address]- 3030 Apr, [facility] [address] [id number] [place] [address]- 3062 30 Apr, 2011 [facility] [address] [id number] [place] [address] 2546 Apr, [facility] [address] [id number] [place] [address] 2547 Apr, [facility] [place] [facility] [address] [id number] [place] [address] 2546 Apr, [facility] [address] [id number] [place] [address] 2546 Apr, [facility] [address] [id number] [place] [address]- 1177 13 Apr, 2011 [facility] [place] [facility] [address] [id number] [place] [address]- 9236 08 Apr, 2011 [facility] [place] [facility] [address] [id number] [place] [address]- 1022 Apr, [facility] [place] [facility] [address] [id number] [place] [address]- 4715 Mar, [facility] [place] [facility] [address] [id number] [place] [address]- 4270 Mar, [facility] [place] [facility] [address] [id number] [place] [address]- 1823 Mar, [facility] [place] [facility] [address] [id number] [place] [address]- 6273 Mar, [facility] [place] [facility] [address] [id number] [place] [address]- 9189 Mar, [facility] [address] [id number] [place] [address]- 6714 Feb, [facility] [place] [facility] [address] [id number] [place] [address]- 9679 Feb, [facility] [place] [facility] [address] [id number] [place] [address]- 0453 Feb, [facility] [place] [facility] [address] [id number] [place] [address]- 2034 Dec, [facility] [place] [facility] [address] [id number] [place] [address]- 3920 Nov, [facility] [place] [facility] [address] [id number] [place] [address]- 8546 Apr, [facility] [place] [facility] [address] [id number] [place] [address]- 4897 Apr, [facility] [place] [facility] [address] [id number] [place] [address] 2548 16 Apr, 2010 [facility] [place] [facility] [address] [id number], [place] [address]- 0407 Apr, [facility] [address] [facility] [id number], [place] [address]- 3061 Apr, [facility] [address] [facility] [id number], [place] [address]- 7426 Apr, [facility] [id number], [place] [address]- 4406 Apr, [facility] [address] [facility] [id number], [place] [address]- 0215 Apr, [facility] [address] [facility] [id number], [place] [address]- 3177 Mar, [facility] [address] [id number], [place] [address]- 5552 Mar, [facility] [id number], [place] [address]- 0112 Mar, [facility] [id number], [place] [address]- 9418 Mar, [facility] [id number], [place] [address]- 9240 Mar, [facility] [id number], [place] [address]- 5811 Mar, [facility] [id number], [place] [address]- 2989 Mar, [facility] [id number], [place] [address]- 4722 Mar, [facility] [id number], [place] [address]- 6925 Mar, [facility] [id number], [place] [address]- 4716 Mar, IMMUNIZATIONS No Known Immunizations SOCIAL HISTORY Never Assessed REASON FOR VISIT PLAN OF CARE VITAL SIGNS MEDICATIONS Unknown [...]
--- OUTSIDE RECORDS SUMMARY | 2018-04-22 23:17 | XMS REPORT ---
Author Author RICHMOND MARY [facility] Address [address] [place] [address] Care Team Providers Care Box Sealing Machine Feeder Name Role Phone RICHMONDSRIDHARMARY Unavailable PROBLEMS Type Condition ICD9-CM Code [id number] Code Onset Dates Condition Status SNOMED Code Problem Iron deficiency anemia, unspecified iron deficiency anemia type D50.9 Active 05918684 Problem Severe sleep apnea G47.30 Active 75247936 Problem Decreased diffusion capacity R94.2 Active 75263605 Problem Stenosis of carotid artery, unspecified laterality I65.29 Active 23573695 Problem Coronary artery disease involving [place] coronary artery of [place] heart, angina presence unspecified I25.10 Active [id number] Problem Generalized osteoarthritis M15.9 Active 831987064 Problem Aortic valve sclerosis I35.8 Active 12800400 Problem Hypoxemia R09.02 Active 482205590 Problem Essential hypertension I10 Active 61048381 Problem BMI 50.0-59.9, adult Z68.43 Active 057099934 Problem Mixed hyperlipidemia E78.2 Active 180979495 Problem Port catheter in place Z95.828 Active 301398397 Problem Anxiety about health F41.8 Active 829349111 Problem Transient cerebral ischemia, unspecified type G45.9 Active 840212726 Problem Slow transit constipation K59.01 Active 87974978 Problem Bladder spasms N32.89 Active 848778031 Problem Type 2 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 Active 60530509 Problem 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 Active 8309767 Problem Renal osteodystrophy N25.0 Active 62785991 Problem Type 2 diabetes mellitus with unspecified complications E11.8 Active 48137418 Problem Chronic kidney disease, unspecified CKD stage N18.9 Active 005503408 Problem Pain R52 Active 66014566 Problem USP 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.4 Active 592583401 Problem Type 2 diabetes mellitus with diabetic polyneuropathy E11.42 Active 032443184 Problem Anemia in other chronic diseases classified elsewhere D63.8 Active 165102545 Problem Type 2 diabetes mellitus with hyperglycemia E11.65 Active 67871438 Problem Type 2 diabetes mellitus with foot ulcer E11.621 Active 159257297 Problem Trochanteric bursitis of left hip M70.62 Active 943244353850679 Problem Presence of IVC filter Z95.828 Active 018832170 Problem Chronic kidney disease, stage 3 (moderate) N18.3 Active 395407232 Problem Diarrhea, unspecified type R19.7 Active 21073551 ALLERGIES Substance Reaction Event Type Date Status Triple Antibiotic Unknown Drug Allergy Aug, Active Penicillin V Potassium Unknown Drug Allergy Aug, Active Flonase bloody nose Drug Allergy Aug, Active Amoxicillin Unknown Drug Allergy Aug, Active ENCOUNTERS Encounter Location Date Diagnosis [place] [address] [address] Nov, Slow transit constipation K59.01 [place] [address] [address] Nov, [facility] [address] [place] [id number] Nov, Anemia due to acute blood loss D62 [place] [address] [address]- [address] Nov, [place] [address] [place] [id number] [place] [address] 85932- 3162 Nov, Bladder spasms N32.89 [place] [address] [address]- [address] Nov, Pain R52 [facility] [address] [place] [id number] Nov, Anemia due to acute blood loss D62 [place] [address] [address]- 78[address] Nov, Pain in right hip M25.551 and Pain in left hip M25.552 [place] [address] [address]- [address] Nov, [place] [address] [address] Nov, [facility] [id number] [place] [address] 30775- 1249 Nov, [facility] [id number] [place] [address] 65065- 6952 Nov, [facility] [id number] [place] [address] 16006- 6191 Oct, [facility] [id number] [place] [address] 92137- 2220 Oct, [facility] [address] [place] [id number] Oct, Encounter for examination for admission to prison Z02.2 ; Chronic kidney disease, unspecified CKD stage N18.9 ; Type 2 diabetes mellitus with unspecified complications E11.8 ; 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 ; Essential hypertension I10 ; Hypoxia R09.02 ; Severe sleep apnea G47.30 ; Stenosis of carotid artery, unspecified laterality I65.29 ; Generalized osteoarthritis M15.9 ; Coronary artery disease involving [place] coronary artery of [place] heart, angina presence unspecified I25.10 ; Port catheter in place Z95.828 and Hemorrhoids, unspecified hemorrhoid type K64.9 [facility] [id number] [place] [address] 77833- 1543 Oct, [facility] [id number] [place] [address] 24239- 1913 Oct, [facility] [address] [place] [id number] [place] [address] 96739- 0344 Oct, [facility] [address] [place] [id number] [place] [address] 84471- 5414 Oct, [facility] [id number] [place] [address] 34565 -3068 September, BMI 50.0-59.9, adult Z68.43 [facility] [address] [place] [id number] [place] [address] 11198- 7885 September, [place] [address] [place] [id number] [place] [address] 90091- 1039 September, [place] [address] [place] [id number] [place] [address] 44668- 8529 Aug, Type 2 diabetes mellitus with foot ulcer E11.621 ; Transient cerebral ischemia, unspecified type G45.9 ; Essential hypertension I10 ; Mixed hyperlipidemia E78.2 and BMI 50.0-59.9, adult Z68.43 [place] [address] [place] [id number] [place] [address] 87181- 6031 Aug, [place] [address] [place] [id number] [place] [address] 00527- 5414 Jul, Anxiety about health F41.8 and Mixed hyperlipidemia E78.2 [place] [id number] [place] [address] 69779- 9054 Jul, [place] [address] [place] [id number] [place] [address] 70654- 1295 Jun, [place] [address] [place] [id number] [place] [address] 38256- 3753 Jun, Type 2 diabetes mellitus with hyperglycemia E11.65 ; Type 2 diabetes mellitus with foot ulcer E11.621 ; Port catheter in place Z95.828 ; 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 ; Contact with and (suspected) exposure to potentially hazardous body fluids Z77.21 and BMI 50.0-59.9, adult Z68.43 [place] [address] [place] [id number] [place] [address] 60022- 1609 May, [place] [address] [place] [id number] [place] [address] 78914- 4575 May, Open wound of right great toe, subsequent encounter S91.101D [place] [address] [place] [id number] [place] [address] 16039- 5537 May, [place] [address] [address] 4957 Apr, [place] [address] [place] [id number] [place] [address] 47705- 3419 Apr, [place] [address] [place] [id number] [place] [address] 24861- 5611 Apr, [place] [address] [place] [id number] [place] [address] 98622- 0525 Apr, Type 2 diabetes mellitus with diabetic polyneuropathy E11.42 [place] [address] [place] [address] 09208- 4231 Apr, Open wound of right great toe, subsequent encounter S91.101D [place] [address] [place] [id number] [place] [address] 98685- 2933 08 Apr, 2017 Open wound of right great toe, subsequent encounter S91.101D ; Breast pain, left N64.4 ; Breast cancer screening Z12.31 ; Type 2 diabetes mellitus with foot ulcer E11.621 ; Essential hypertension I10 and BMI 50.0-59.9, adult Z68.43 [place] [address] [place] [id number] [place] [address] 90433- 9094 29 Mar, 2017 Encounter for immunization Z23 [place] [address] [place] [address] 61681- 5165 Mar, [place] [address] [place] [id number] [place] [address] 41239- 7187 Mar, [place] [address] [place] [id number] [place] [address] 08126- 0834 10 Mar, 2017 Type 2 diabetes mellitus with diabetic polyneuropathy E11.42 ; Type 2 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 ; Type 2 diabetes mellitus with foot ulcer E11.621 ; Essential hypertension I10 ; Hypoxemia R09.02 and Generalized osteoarthritis M15.9 [place] [address], [place] [address] Mar, Chronic kidney disease, stage 3 (moderate) N18.3 ; Acute cystitis without hematuria N30.00 ; Essential hypertension I10 ; Muscle spasms of neck M62.838 ; Type 2 diabetes mellitus with diabetic polyneuropathy E11.42 and BMI 50.0-59.9, adult Z68.43 [facility] [address] [place] [id number] [address] Feb, [facility] [address] [place] [id number] [place] [address] 07880 -5447 Feb, [facility] [address] [place] [id number] [place] [address] 38675- 2039 Feb, [facility] [address] [place] [id number] [place] [address] 90241- 7084 Feb, [facility] [address] [place] [id number] [place] [address] 47470- 4935 Feb, [facility] [address] [place] [id number] [place] [address] 05413- 8757 Feb, [facility] [address] [place] [id number] [place] [address] 30019- 9570 Feb, Mixed hyperlipidemia E78.2 [facility] [address] [place] [id number] [place] [address] 81197- 4442 Feb, [facility] [address] [place] [id number] [place] [address] 74345- 4536 Jan, [facility] [address] [place] [id number] [place] [address] 19320- 3426 14 Jan, 2017 Generalized osteoarthritis M15.9 [facility] [address] [place] [id number] [place] [address] 82140- 6317 Oct, [facility] [address] [place] [id number] [place] [address] 94804- 7501 Jul, [facility] [address] [place] [id number] [place] [address] 63892- 6885 Jul, [facility] [address] [place] [id number] [place] [address]- 7466 Jul, 2017 Type 2 diabetes mellitus with hyperglycemia E11.65 ; Chronic kidney disease, stage 3 (moderate) N18.3 ; Type 2 diabetes mellitus with foot ulcer E11.621 ; Type 2 diabetes mellitus with diabetic polyneuropathy E11.42 ; Generalized osteoarthritis M15.9 ; Trochanteric bursitis of left hip M70.62 and Tinea pedis of both feet B35.3 [place] [address] 22136- 6994 13 Jun, 2016 [place] [address] 48771- 5548 Apr, [place] [address] 77765- 9293 Apr, [place] [address] 54839- 5834 Mar, [place] [address] [place] [id number] [place] [address] 63352- 7333 Feb, Encounter for immunization Z23 [place] [id number] [place] [address] 66094- 5126 Feb, [place] [address] [place] [id number] [place] [address] 18691- 1600 Feb, Type 2 diabetes mellitus with hyperglycemia E11.65 ; Encounter for immunization Z23 ; Diarrhea, unspecified type R19.7 ; Essential hypertension I10 ; Mixed hyperlipidemia E78.2 ; Hypoxia R09.02 ; 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 and Type 2 diabetes mellitus with foot ulcer E11.621 [place] [address] [place] [id number] [place] [address] 40411- 7706 Jan, [address] [address]- 7702 Jan, Type 2 diabetes mellitus with hyperglycemia E11.65 and Pneumonia due to infectious organism, unspecified laterality, unspecified part of lung J18.[address] [id number] [address]- 2583 Jan, [facility] [address] [place] [id number] [place] [address] 79594- 9114 Jan, [facility] [address] [place] [id number] [place] [address] 62160- 2010 Oct, Type 2 diabetes mellitus with hyperglycemia E11.65 ; Generalized osteoarthritis M15.9 and Chronic prescription opiate use Z79.891 [facility] [address] [place] [id number] [place] [address] 59981- 1766 September, [facility] [address] [place] [id number] [place] [address] 48033- 9255 Aug, [facility] [address] [place] [id number] [place] [address] 69366- 4727 Aug, [facility] [address] [place] [id number] [place] [address] 03823- 8977 Aug, [facility] [address] [place] [id number] [place] [address] 18339- 2726 Aug, [facility] [address] [place] [id number] [place] [address] 70086- 1082 Jun, [facility] [address] [place] [id number] [place] [address] 50927- 8865 Jun, Type 2 diabetes mellitus with hyperglycemia E11.65 ; Mixed hyperlipidemia E78.2 ; Vaginal itching L29.8 ; Neck muscle spasm M62.838 and Skin abrasion T14.8 [facility] [address] [place] [id number] [place] [address] 60279- 3334 Apr, [facility] [address] [place] [id number] [place] [address] 99112- 9264 Apr, [facility] [address] [place] [id number] [place] [address] 86825- 1137 Mar, [facility] [address] [place] [id number] [place] [address] 10481- 6093 Feb, [facility] [address] [place] [id number] [place] [address] 66054- 2285 Feb, Type 2 diabetes mellitus with hyperglycemia E11.65 ; Type 2 diabetes mellitus with foot ulcer E11.621 ; Type 2 diabetes mellitus with diabetic polyneuropathy E11.42 and Encounter for immunization Z23 [facility] [address] [place] [id number] [place] [address] 55061- 9580 Jan, Hypertension 401.9 ; Uncontrolled type 2 diabetes mellitus 250.02 ; Right shoulder pain 719.41 and Ulcer of heel and midfoot 707.14 [facility] [address] 59703- 6376 Dec, Diabetes with other specified manifestations, type II or unspecified type, not stated as uncontrolled 250.80 ; Ulcer of heel and midfoot 707.14 ; Hypertension 401.9 ; Hip pain, left 719.45 and Acute anxiety 300.00 [facility] [address] [place] [id number] [place] [address] 14904- 5661 Nov, [facility] [address] [place] [id number] [place] [address] 45426- 2821 Nov, [facility] [address] [place] [id number] [place] [address] 74205- 2475 September, Anxiety attack 300.01 and Cellulitis 682.9 [facility] [address] [place] [id number] [place] [address] 66548- 8261 September, [facility] [address] [place] [id number] [place] [address] 29484- 8926 September, [facility] [address] [place] [id number] [place] [address] 72017- 4422 September, [facility] [address] [place] [id number] [place] [address] 59289- 3501 Aug, [facility] [address] [place] [id number] [place] [address] 88052- 7896 Aug, [facility] [place] [facility] [address] [id number] [place] [address]- 1791 13 Jul, 2014 [facility] [place] [facility] [address] [id number] [place] [address]- 3549 13 Jul, 2014 [facility] [place] [facility] [address] [id number] [place] [address]- 7082 Jul, [facility] [place] [facility] [address] [id number] [place] [address]- 6108 May, [facility] [place] [facility] [address] [id number] [place] [address]- 3249 May, [facility] [place] [facility] [address] [id number] [place] [address]- 5768 Mar, [facility] [place] [facility] [address] [id number] [place] [address]- 5224 Mar, [facility] [place] [facility] [address] [id number] [place] [address]- 6025 Mar, [facility] [place] [facility] [address] [id number] [place] [address]- 1306 Mar, [facility] [place] [facility] [address] [id number] [place] [address]- 1831 Mar, [facility] [place] [facility] [address] [id number] [place] [address]- 3159 Mar, [facility] [place] [facility] [address] [id number] [place] [address]- 6227 Mar, [facility] [place] [facility] [address] [id number] [place] [address]- 1076 14 Feb, 2014 [facility] [place] [facility] [address] [id number] [place] [address]- 5767 14 Feb, 2014 [facility] [place] [facility] [address] [id number] [place] [address]- 1502 30 Jan, 2014 [facility] [place] [facility] [address] [id number] [place] [address]- 4054 30 Sep, 2013 [facility] [place] [facility] [address] [id number] [place] [address] 2546 26 Sep, 2013 [facility] [place] [facility] [address] [id number] [place] [address] 2546 26 Sep, 2013 [facility] [place] [facility] [address] [id number] [place] [address] 2546 25 Sep, 2013 [facility] [place] [facility] [address] [id number] [place] [address] 2543 25 Sep, 2013 [facility] [place] [facility] [address] [id number] [place] [address]- 5263 25 Sep, 2013 [facility] [place] [facility] [address] [id number] [place] [address]- 8169 25 Sep, 2013 [facility] [place] [facility] [address] [id number] [place] [address]- 8592 18 Sep, 2013 [facility] [place] [facility] [address] [id number] [place] [address]- 2481 18 Sep, 2013 [facility] [place] [facility] [address] [id number] [place] [address] 2542 06 Sep, 2013 [facility] [place] [facility] [address] [id number] [place] [address]- 7571 06 Sep, 2013 [facility] [place] [facility] [address] [id number] [address]- 0553 05 Sep, 2013 [facility] [place] [facility] [address] [id number], [place] [address] 2546 05 Sep, 2013 [facility] [place] [facility] [address] [id number] [place] [address] 2546 05 Sep, 2013 [facility] [place] [facility] [address] [id number] [place] [address] 2546 05 Sep, 2013 [facility] [place] [facility] [address] [id number] [place] [address] 2546 05 Sep, 2013 [facility] [place] [facility] [address] [id number] [place] [address]- 5636 05 Jan, 2014 [facility] [place] [facility] [address] [id number] [place] [address]- 2699 Dec, [facility] [place] [facility] [address] [id number] [place] [address]- 6211 Dec, [facility] [place] [facility] [address] [id number] [place] [address]- 0049 Dec, [facility] [place] [facility] [address] [id number] [place] [address]- 4978 Dec, [facility] [place] [facility] [address] [id number] [place] [address]- 2941 Dec, [facility] [place] [facility] [address] [id number] [place] [address]- 8680 Dec, [facility] [place] [facility] [address] [id number] [place] [address]- 8967 Dec, [facility] [place] [facility] [address] [id number] [place] [address]- 7381 Dec, [facility] [place] [facility] [address] [id number] [place] [address]- 0362 Dec, [facility] [place] [facility] [address] [id number] [place] [address]- 0521 Dec, [facility] [place] [facility] [address] [id number] [place] [address]- 8279 Nov, [facility] [place] [facility] [address] [id number] [place] [address]- 3665 Nov, [facility] [place] [facility] [address] [id number] [place] [address]- 2599 Nov, [facility] [place] [facility] [address] [id number] [place] [address]- 9129 Nov, [facility] [place] [facility] [address] [id number] [place] [address]- 3647 Nov, [facility] [place] [facility] [address] [id number] [place] [address]- 8417 Nov, [facility] [place] [facility] [address] [id number] [place] [address]- 0589 Oct, [facility] [place] [facility] [address] [id number] [place] [address]- 3249 Oct, [facility] [place] [facility] [address] [id number] [place] [address]- 1120 Oct, [facility] [place] [facility] [address] [id number] [place] [address]- 7357 Oct, [facility] [place] [facility] [address] [id number] [place] [address]- 4596 Oct, [facility] [place] [facility] [address] [id number] [place] [address]- 6851 Oct, [facility] [place] [facility] [address] [id number] [place] [address]- 3023 Oct, [facility] [place] [facility] [address] [id number] [place] [address]- 3872 Oct, [facility] [place] [facility] [address] [id number] [place] [address]- 9403 Oct, [facility] [place] [facility] [address] [id number] [place] [address]- 6818 Oct, [facility] [place] [facility] [address] [id number] [place] [address]- 8932 Oct, [facility] [place] [facility] [address] [id number] [place] [address]- 4653 Oct, [facility] [place] [facility] [address] [id number] [place] [address]- 7851 September, [facility] [place] [facility] [address] [id number] [place] [address]- 3074 September, [facility] [place] [facility] [address] [id number] [place] [address]- 4487 September, [facility] [place] [facility] [address] [id number] [place] [address]- 9321 Aug, [facility] [place] [facility] [address] [id number] [place] [address]- 8689 Aug, [facility] [place] [facility] [address] [id number] [place] [address] Jul, [facility] [place] [facility] [address] [id number] [place] [address] Jul, [facility] [place] [facility] [address] [id number] [place] [address] Jul, [facility] [place] [facility] [address] [id number] [place] [address] Jul, [facility] [place] [facility] [address] [facility] [id number] [place] [address] Jul, [facility] [place] [facility] [address] [id number] [place] [address] Jul, [facility] [place] [facility] [address] [id number] [place] [address] Jul, [facility] [place] [facility] [address] [facility] [id number] [place] [address] Jul, [facility] [place] [facility] [address] [id number] [place] [address] Jul, [facility] [place] [facility] [address] [facility] [id number] [place] [address] Jul, [facility] [place] [facility] [address] [id number] [place] [address] Jun, [facility] [place] [facility] [address] [id number] [place] [address] Jun, [facility] [place] [facility] [address] [facility] [id number] [place] [address] Jun, [facility] [place] [facility] [address] [id number] [place] [address] Jun, [facility] [place] [facility] [address] [id number] [place] [address] May, [facility] [place] [facility] [address] [id number] [place] [address] May, [facility] [place] [facility] [address] [id number] [place] [address] Apr, [facility] [place] [facility] [address] [id number] [place] [address] Apr, [facility] [place] [facility] [address] [id number] [place] [address] Apr, [facility] [place] [facility] [address] [id number] [place] [address] Apr, [facility] [place] [facility] [address] [id number] [place] [address] Apr, [facility] [place] [facility] [address] [id number] [place] [address] Apr, [facility] [place] [facility] [address] [id number] [place] [address] Apr, [facility] [place] [facility] [address] [id number] [place] [address] Apr, [facility] [place] [facility] [address] [id number] [place] [address] Mar, [facility] [place] [facility] [address] [id number] [place] [address] Mar, [facility] [place] [facility] [address] [id number] [place] [address] Mar, [facility] [place] [facility] [address] [id number] [place] [address] 2084 Mar, [facility] [place] [facility] [address] [id number] [place] [address] 6567 08 Mar, 2013 [facility] [place] [facility] [address] [id number] [place] [address] 3393 08 Mar, 2013 [facility] [place] [facility] [address] [id number] [place] [address] 0186 30 Feb, 2013 [facility] [place] [facility] [address] [id number] [place] [address] 2117 30 Feb, 2013 [facility] [place] [facility] [address] [id number] [place] [address] 244[address] Feb, [facility] [place] [facility] [address] [id number] [place] [address] 5253 18 Feb, 2013 [facility] [place] [facility] [address] [id number] [place] [address] 4493 Feb, [facility] [place] [facility] [address] [id number] [place] [address] 6303 Feb, [facility] [place] [facility] [address] [id number] [place] [address]- 5374 04 Feb, 2013 [facility] [place] [facility] [address] [id number] [place] [address] 4327 27 Jan, 2013 [facility] [place] [facility] [address] [id number] [place] [address]- 8829 26 Jan, 2013 [facility] [place] [facility] [address] [id number], [place] [address] 19 Jan, 2013 [facility] [place] [facility] [address] [id number], [place] [address] 2540 05 Jan, 2013 [facility] [place] [facility] [address] [id number] [place] [address] 2547 Dec, [facility] [place] [facility] [address] [id number] [place] [address] 4153 Dec, [facility] [place] [facility] [address] [id number] [place] [address] 2540 Dec, [facility] [place] [facility] [address] [id number] [place] [address] 1131 Nov, [facility] [address] [id number] [place] [address] Nov, [facility] [address] [id number] [place] [address] 5846 16 Nov, 2012 [facility] [address] [id number] [place] [address] 4960 Nov, [facility] [address] [id number] [place] [address] 1994 Nov, [facility] [address] [id number] [place] [address]- 5064 Nov, [facility] [address] [id number] [place] [address]- 6198 Oct, [facility] [address] [id number] [place] [address]- 8759 Oct, [facility] [address] [id number] [place] [address]- 9355 Oct, [facility] [address] [id number] [place] [address] 5175 Oct, [facility] [address] [id number] [place] [address]- 2426 Oct, [facility] [address] [id number] [place] [address]- 1105 Oct, [facility] [address] [id number] [place] [address] 3916 September, [facility] [place] [facility] [address] [id number] [place] [address]- 1461 September, [facility] [address] [id number] [place] [address] [address] September, [facility] [address] [id number] [place] [address]- 7949 September, [facility] [place] [facility] [address] [id number] [place] [address]- 0058 23 Aug, 2012 [facility] [address] [id number] [place] [address]- 9046 Aug, [facility] [address] [id number] [place] [address]- 9217 28 Jul, 2012 [facility] [place] [facility] [address] [id number] [place] [address] 6432 Jul, [facility] [address] [id number] [place] [address]- 6209 18 Jul, 2012 [facility] [address] [id number] [place] [address]- 2982 15 Jul, 2012 [facility] [address] [id number] [place] [address]- 2683 Jul, [facility] [address] [id number] [place] [address]- 8236 Jul, [facility] [address] [id number] [place] [address]- 1691 Jun, [facility] [address] [id number] [place] [address]- 9306 Jun, [facility] [address] [id number] [place] [address]- 2546 May, [facility] [address] [id number], [place] [address] 2410 May, [facility] [place] [facility] [address] [id number] [place] [address]- 7662 Apr, [facility] [place] [facility] [address] [id number] [place] [address]- 4716 Apr, [facility] [place] [facility] [address] [id number] [place] [address]- 9460 Apr, [facility] [place] [facility] [address] [id number][place] [address]- 9587 13 Apr, 2012 [facility] [address] [id number] [place] [address]- 7640 10 Apr, 2012 [facility] [place] [facility] [address] [id number] [place] [address]- 0696 10 Apr, 2012 [facility] [place] [facility] [address] [facility] [id number] [place] [address]- 3356 07 Apr, 2012 [facility] [place] [facility] [address] [id number] [place] [address]- 8818 07 Apr, 2012 [facility] [place] [facility] [address] [id number] [place] [address]- 7413 Apr, [facility] [place] [facility] [address] [id number] [place] [address]- 6609 Apr, [facility] [address] [facility] [id number] [place] [address]- 5824 Apr, [facility] [place] [facility] [address] [id number] [place] [address]- 0664 Apr, [facility] [place] [facility] [address] [facility] [id number] [place] [address]- 8768 Apr, [facility] [place] [facility] [address] [facility] [id number] [place] [address]- 1623 Apr, [facility] [place] [facility] [address] [facility] [id number] [place] [address]- 7732 Apr, [facility] [place] [facility] [address] [id number], [place] [address] 3[address] Apr, [facility] [place] [facility] [address] [id number] [place] [address]- 2319 Mar, [facility] [place] [facility] [address] [facility] [id number] [place] [address]- 2975 Mar, [facility] [place] [facility] [address] [facility] [id number] [place] [address]- 7889 16 Mar, 2012 [facility] [place] [facility] [address] [id number] [place] [address]- 5348 16 Mar, 2012 [facility] [place] [facility] [address] [id number] [place] [address]- 5422 Mar, [facility] [place] [facility] [address] [id number] [place] [address]- 9849 Mar, [facility] [place] [facility] [address] [id number] [place] [address]- 2185 Mar, [facility] [place] [facility] [address] [id number] [place] [address]- 6074 Mar, [facility] [place] [facility] [address] [id number] [place] [address]- 0662 Mar, [facility] [place] [facility] [address] [id number] [place] [address]- 7424 Mar, [facility] [place] [facility] [address] [id number] [place] [address]- 3103 Feb, [facility] [place] [facility] [address] [id number] [place] [address]- 7557 Feb, [facility] [place] [facility] [address] [id number] [place] [address]- 4842 Feb, [facility] [place] [facility] [address] [id number] [place] [address]- 5758 Feb, [facility] [place] [facility] [address] [id number] [place] [address]- 0530 Feb, [facility] [place] [facility] [address] [id number] [place] [address]- 5618 Feb, [facility] [place] [facility] [address] [id number] [place] [address]- 4958 Jan, [facility] [place] [facility] [address] [id number] [place] [address]- 8402 Dec, [facility] [place] [facility] [address] [id number] [place] [address]- 1213 Dec, [facility] [place] [facility] [address] [id number] [place] [address]- 8871 Dec, [facility] [place] [facility] [address] [id number] [place] [address]- 3867 Dec, [facility] [place] [facility] [address] [id number] [place] [address]- 3098 Nov, [facility] [place] [facility] [address] [id number] [place] [address]- 4428 Nov, [facility] [place] [facility] [address] [id number] [place] [address]- 0956 Nov, [facility] [place] [facility] [address] [id number] [place] [address]- 7679 Nov, [facility] [place] [facility] [address] [id number] [place] [address]- 2190 Oct, [facility] [place] [facility] [address] [id number] [place] [address]- 6715 Oct, [facility] [place] [facility] [address] [id number] [place] [address]- 3352 Oct, [facility] [place] [facility] [address] [id number] [place] [address]- 0383 Oct, [facility] [place] [facility] [address] [id number] [place] [address]- 2317 Oct, [facility] [place] [facility] [address] [id number] [place] [address]- 4271 September, [facility] [place] [facility] [address] [id number] [place] [address]- 5580 September, [facility] [place] [facility] [address] [id number] [place] [address]- 8835 September, [facility] [place] [facility] [address] [id number] [place] [address]- 5093 September, [facility] [place] [facility] [address] [id number] [place] [address]- 0096 September, [facility] [address] [id number] [place] [address]- 2938 September, [facility] [place] [facility] [address] [id number] [place] [address]- 0909 September, [facility] [address] [id number] [place] [address]- 9630 September, [facility] [place] [facility] [address] [id number] [place] [address]- 2821 Aug, [facility] [address] [id number] [place] [address]- 5867 Aug, [facility] [address] [id number] [place] [address]- 8916 Aug, [facility] [address] [id number] [place] [address]- 8566 Aug, [facility] [address] [id number] [place] [address]- 3591 18 Aug, 2011 [facility] [place] [facility] [address] [id number] [place] [address]- 7183 17 Aug, 2011 [facility] [address] [id number] [place] [address]- 6025 Aug, [facility] [place] [facility] [address] [id number] [place] [address]- 5069 Aug, [facility] [place] [facility] [address] [id number] [place] [address]- 3752 10 Aug, 2011 [facility] [place] [facility] [address] [id number] [place] [address]- 0714 09 Aug, 2011 [facility] [place] [facility] [address] [id number] [place] [address]- 9998 Aug, [facility] [place] [facility] [address] [id number] [place] [address]- 1386 Aug, [facility] [place] [facility] [address] [id number] [place] [address]- 0320 29 Jul, 2011 [facility] [place] [facility] [address] [id number] [place] [address]- 7646 28 Jul, 2011 [facility] [place] [facility] [address] [id number] [place] [address]- 8896 27 Jul, 2011 [facility] [place] [facility] [address] [id number] [place] [address]- 6890 23 Jul, 2011 [facility] [place] [facility] [address] [id number] [place] [address]- 3721 Jul, [facility] [place] [facility] [address] [id number] [place] [address]- 4943 Jul, [facility] [place] [facility] [address] [id number] [place] [address]- 1448 14 Jul, 2011 [facility] [place] [facility] [address] [id number] [place] [address]- 5888 13 Jul, 2011 [facility] [place] [facility] [address] [id number] [place] [address]- 2563 Jul, [facility] [place] [facility] [address] [id number] [place] [address]- 7245 24 Jun, 2011 [facility] [place] [facility] [address] [id number] [place] [address]- 0318 Jun, [facility] [place] [facility] [address] [id number] [place] [address]- 9627 Jun, [facility] [place] [facility] [address] [id number] [place] [address]- 0367 14 Jun, 2011 [facility] [place] [facility] [address] [id number] [place] [address]- 7146 Jun, [facility] [place] [facility] [address] [id number] [place] [address]- 8276 Jun, [facility] [place] [facility] [address] [id number] [place] [address]- 2872 02 Jun, 2011 [facility] [address] [id number] [place] [address]- 3166 May, [facility] [place] [facility] [address] [id number] [place] [address]- 6636 May, [facility] [address] [id number] [place] [address]- 0376 May, [facility] [place] [facility] [address] [id number] [place] [address]- 7746 May, [facility] [address] [id number] [place] [address]- 9318 May, [facility] [address] [id number] [place] [address]- 4736 May, [facility] [address] [id number] [place] [address]- 8826 May, [facility] [address] [id number] [place] [address]- 3748 Apr, [facility] [address] [id number] [place] [address]- 7546 Apr, [facility] [address] [id number] [place] [address]- 6740 Apr, [facility] [address] [id number] [place] [address]- 2336 Apr, [facility] [place] [facility] [address] [id number] [place] [address] 2546 Apr, [facility] [place] [facility] [address] [id number] [place] [address]- 3956 Apr, [facility] [place] [facility] [address] [id number] [place] [address]- 8886 13 Apr, 2011 [facility] [place] [facility] [address] [id number] [place] [address]- 5763 08 Apr, 2011 [facility] [place] [facility] [address] [id number] [place] [address]- 7763 Apr, [facility] [place] [facility] [address] [id number] [place] [address]- 7385 Mar, [facility] [place] [facility] [address] [id number] [place] [address]- 3423 Mar, [facility] [place] [facility] [address] [id number] [place] [address]- 4569 Mar, [facility] [place] [facility] [address] [id number] [place] [address]- 6117 Mar, [facility] [place] [facility] [address] [id number] [place] [address]- 3819 Mar, [facility] [place] [facility] [address] [id number] [place] [address]- 6364 Feb, [facility] [place] [facility] [address] [id number] [place] [address]- 8252 Feb, [facility] [place] [facility] [address] [id number] [place] [address]- 8332 Feb, [facility] [place] [facility] [address] [id number] [place] [address]- 9753 Dec, [facility] [place] [facility] [address] [id number] [place] [address]- 9891 Nov, [facility] [place] [facility] [address] [id number] [place] [address]- 3411 Apr, [facility] [place] [facility] [address] [id number] [place] [address]- 8083 Apr, [facility] [place] [facility] [address] [id number] [place] [address]- 7796 16 Apr, 2010 [facility] [place] [facility] [address] [id number] [place] [address]- 8965 13 Apr, 2010 [facility] [place] [facility] [address] [id number], [place] [address]- 1469 Apr, [facility] [id number] [address] 6589 Apr, [facility] [id number] [address] Apr, [facility] [id number] 4770 Apr, [facility] [address] [facility] [id number], [place] [address]- 9026 Mar, [facility] [id number], [place] [address]- 8935 Mar, [facility] [id number] [place] [address]- 4990 Mar, [facility] [id number] [place] [address]- 8941 Mar, [facility] [id number] [place] [address]- 8618 Mar, [facility] [id number], [place] [address]- 6050 Mar, [facility] [id number], [place] [address]- 8078 Mar, [facility] [id number], [place] [address]- 9376 Mar, [facility] [id number], [place] [address]- 6405 Mar, [facility] [address] [id number] [address]- 6496 Mar, IMMUNIZATIONS No Known Immunizations SOCIAL HISTORY Never Assessed REASON FOR VISIT [facility] follow up--[place], -Hospital fu for TIA symptoms and HTN PLAN OF CARE Activity Details Follow Up 3 Months Reason:DMII VITAL SIGNS Height 66 in 2017-08-29 Weight 314.9 lbs 2017-08-29 Temperature 98.0 degrees Fahrenheit 2017-08-29 Heart Rate 64 bpm 2017-08-29 Respiratory Rate 20 2017-08-29 BMI 50.82 kg/m2 2017-08-29 Blood pressure systolic 144 mmHg 2017-08-29 Blood pressure diastolic 76 mmHg 2017-08-29 MEDICATIONS Medication Instructions Dosage Frequency Start Date End Date Duration Status Metoprolol Tartrate 50 MG Orally Twice a day 1 tablet 12h Active Vitamin D3 5000 UNIT Orally Once a day 24h Active Aspirin 81 mg take 1 tablet (81 mg) by oral route once daily September, Active Multivitamin Adult - Active Arginine 1000 MG Orally 3 times a day 2 tablets 8h Active Fish Oil 1000 MG Orally 3 times a day 1 capsule 8h Active Losartan Potassium 100 MG Orally Once a day 1 tablet 24h Active Alavert 10 mg take 1 tablet (10 mg) by oral route once daily September, Active NovoLog Flexpen 100 UNIT/ML Subcutaneous 3 times a day 9 units before meals 8h Jul, Active Levemir Flexpen 100 UNIT/ML INJECT 20 UNITS SUBCUTANEOUSLY TWICE DAILY 37 Active Simbrinza 1-0.2 % Ophthalmic Three times a day 1 drop into affected eye 8h Active Neurontin 100 mg Orally 3 times a day 1 capsule 8h 30 Active Lomotil 2.5-0.025 MG Orally Four times a day 1 tablet as needed 6h Active Calcium Carbonate-Vitamin D3 600-400 MG-UNIT Orally 3 times a day 8h Active Torsemide 100 mg Orally Once a day 1 tablet as needed 24h Not- Taking Rosuvastatin Calcium 20 MG Orally Once a day 1 tablet 24h Active Magnesium Oxide 250 MG Orally Once a day 1 tablet 24h Active Refresh Optive 0.5-0.9 % Active Flaxseed Oil 1000 MG Orally Once a day 1 capsule 24h Active Plavix 75 MG TAKE ONE TABLET BY MOUTH ONCE DAILY (MUST HAVE FOLLOW UP APPOINTMENT FOR FURTHER REFILLS) Active Flagyl 500 MG Orally every 8 hrs 1 tablet 8h Active RESULTS No Results PROCEDURES Procedure Date Ordered Result Body Site [facility] VISIT ESTABLISHED PATIENT August 29, 2017 INSTRUCTIONS MEDICATIONS ADMINISTERED No Known Medications [...]
[2018-04-22 23:18] LABS: INR 1.3 (0.8-1.4); PROTHROMBIN TIME PATIENT 16.4 SEC (12.2-14.7)
[2018-04-22 23:18] LABS: ABG BASE EXCESS 5.4 MMOL/L (-2.5-2.5); ABG OXYGEN SATURATION 98 % (94-100); ABG PCO2 54 MMHG (35-45); ABG PH 7.37 (7.37-7.43); ABG PO2 98 MMHG (79-93); ABG TCO2 31.7 MMOL/L (21.0-31.0); ALLENS TEST YES-POS; INSPIRED O2 15L; PATIENT TEMP 100.8; VENTILATOR NO
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
--- OUTSIDE RECORDS SUMMARY | 2018-04-22 23:18 | XMS REPORT ---
Author Author RICHMOND MARY Organization [facility] Address [address] [place] [address] Care Team Providers Care Electrician Assistant Name Role Phone RICHMOND MARY Unavailable PROBLEMS Type Condition ICD9-CM Code UGB50-PR Code Onset Dates Condition Status SNOMED Code Problem Severe sleep apnea G47.30 Active 76372463 Problem Iron deficiency anemia, unspecified iron deficiency anemia type D50.9 Active 99570824 Problem Decreased diffusion capacity R94.2 Active 00744901 Problem Stenosis of carotid artery, unspecified laterality I65.29 Active 77422001 Problem Coronary artery disease involving [place] coronary artery of [place] heart, angina presence unspecified I25.10 Active [id number] Problem Generalized osteoarthritis M15.9 Active 715260320 Problem Presence of IVC filter Z95.828 Active 174742666 Problem Aortic valve sclerosis I35.8 Active 04999971 Problem Hypoxemia R09.02 Active 495614377 Problem Essential hypertension I10 Active 66235760 Problem BMI 50.0-59.9, adult Z68.43 Active 874897119 Problem Transient cerebral ischemia, unspecified type G45.9 Active 749668930 Problem Port catheter in place Z95.828 Active 953158943 Problem Bladder spasms N32.89 Active 404692836 Problem Pain R52 Active 06084945 Problem 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 Active 4549747 Problem Renal osteodystrophy N25.0 Active 06465728 Problem Mixed hyperlipidemia E78.2 Active 166300736 Problem Chronic kidney disease, unspecified CKD stage N18.9 Active 897833105 Problem Anxiety about health F41.8 Active 230676911 Problem nursing home 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.4 Active 055420012 Problem Type 2 diabetes mellitus with unspecified complications E11.8 Active 28594542 Problem Type 2 diabetes mellitus with foot ulcer E11.621 Active 361380442 Problem Type 2 diabetes mellitus with diabetic polyneuropathy E11.42 Active 332088396 Problem Type 2 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 Active 54439456 Problem Type 2 diabetes mellitus with hyperglycemia E11.65 Active 20923061 Problem Diarrhea, unspecified type R19.7 Active 19023306 Problem Trochanteric bursitis of left hip M70.62 Active [id number] Problem Anemia in other chronic diseases classified elsewhere D63.8 Active 672060909 Problem Chronic kidney disease, stage 3 (moderate) N18.3 Active 175473555 ALLERGIES No Information ENCOUNTERS Encounter Location Date Diagnosis [facility] [id number] [place] [address] 45270- 8700 Nov, [email or web address] [address], [place] [id number] Nov, Anemia due to acute blood loss D62 [facility] [id number] [place] [address] 63394- 0633 Nov, [facility] [id number] [place] [address] 81212- 8166 Nov, Bladder spasms N32.89 [facility] [id number] [place] [address] 50243- 7886 Nov, Pain R52 [employer] [address], [place] [id number] Nov, Anemia due to acute blood loss D62 [facility] [id number] [place] [address] 87837- 5678 Nov, Pain in right hip M25.551 and Pain in left hip M25.552 [facility] [id number] [address] 1023 Nov, [facility] [id number] [place] [address] 93964- 2259 Nov, [facility] [id number] [place] [address] 72993- 5812 Nov, [facility] [id number] [place] [address] 64563- 0505 Nov, [facility] [id number] [place] [address] 25843- 0254 Oct, [facility] [id number] [place] [address] 16481- 4731 Oct, [email or web address] [address] [id number] Oct, Encounter for examination for admission to [facility] Z02.2 ; Chronic kidney disease, unspecified CKD stage N18.9 ; Type 2 diabetes mellitus with unspecified complications E11.8 ; nursing home 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.4 ; Essential hypertension I10 ; Hypoxia R09.02 ; Severe sleep apnea G47.30 ; Stenosis of carotid artery, unspecified laterality I65.29 ; Generalized osteoarthritis M15.9 ; Coronary artery disease involving [place] coronary artery of [place] heart, angina presence unspecified I25.10 ; Port catheter in place Z95.828 and Hemorrhoids, unspecified hemorrhoid type K64.9 [facility] [id number] [place] [address] 04402- 5199 Oct, [facility] [id number] [place] [address] 02395- 4460 Oct, [facility] [id number] [place] [address] 04107- 7918 Oct, [facility] [id number] [place] [address] 87265- 4520 Oct, [facility] [id number] [place] [address] 33310 -0530 September, BMI 50.0-59.9, adult Z68.43 [facility] [id number] [place] [address] 83518- 6636 September, [facility] [address] 24353- 9867 September, [facility] [id number] [place] [address] 16798- 4945 Aug, Type 2 diabetes mellitus with foot ulcer E11.621 ; Transient cerebral ischemia, unspecified type G45.9 ; Essential hypertension I10 ; Mixed hyperlipidemia E78.2 and BMI 50.0-59.9, adult Z68.43 [facility] [id number] [place] [address] 58618- 5530 17 Aug, 2017 [facility] [id number] [place] [address] 17386- 5266 14 Jul, 2017 Anxiety about health F41.8 and Mixed hyperlipidemia E78.2 [facility] [id number] [place] [address] 08784- 1439 13 Jul, 2017 [facility] [id number] [place] [address] 84322- 5303 Jun, [facility] [id number] [place] [address] 03348- 1768 12 Jun, 2017 Type 2 diabetes mellitus with hyperglycemia E11.65 ; Type 2 diabetes mellitus with foot ulcer E11.621 ; Port catheter in place Z95.828 ; 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 ; Contact with and (suspected) exposure to potentially hazardous body fluids Z77.21 and BMI 50.0-59.9, adult Z68.43 [facility] [id number] [place] [address] 56859- 8737 30 May, 2017 [facility] [id number] [place] [address] 97910- 5215 May, Open wound of right great toe, subsequent encounter S91.101D [facility] [id number] [place] [address] 86236- 2091 May, [facility] [id number] [place] [address] 71130- 2875 Apr, [facility] [id number] [place] [address] 94374- 5517 Apr, [facility] [id number] [place] [address] 58336- 0403 Apr, [facility] [id number] [place] [address] 72865- 2697 14 Apr, 2017 Type 2 diabetes mellitus with diabetic polyneuropathy E11.42 [facility] [address] 93693- 2329 13 Apr, 2017 Open wound of right great toe, subsequent encounter S91.101D [address] 63419- 6948 08 Apr, 2017 Open wound of right great toe, subsequent encounter S91.101D ; Breast pain, left N64.4 ; Breast cancer screening Z12.31 ; Type 2 diabetes mellitus with foot ulcer E11.621 ; Essential hypertension I10 and BMI 50.0-59.9, adult Z68.[address] 99741- 3619 29 Mar, 2017 Encounter for immunization Z23 [address] 47813- 1588 Mar, [address] 53791- 5328 Mar, [address] 34656- 0925 10 Mar, 2017 Type 2 diabetes mellitus with diabetic polyneuropathy E11.42 ; Type 2 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 ; Type 2 diabetes mellitus with foot ulcer E11.621 ; Essential hypertension I10 ; Hypoxemia R09.02 and Generalized osteoarthritis M15.[address] 57258- 4516 02 Mar, 2017 Chronic kidney disease, stage 3 (moderate) N18.3 ; Acute cystitis without hematuria N30.00 ; Essential hypertension I10 ; Muscle spasms of neck M62.838 ; Type 2 diabetes mellitus with diabetic polyneuropathy E11.42 and BMI 50.0-59.9, adult Z68.43 [facility] [address] 28465- 7155 30 Feb, 2017 [facility] [address] [address] Feb, [facility] [id number] [address]- 6011 Feb, [facility] [address] [address]- 3694 Feb, [facility] [address] [address]- 8340 Feb, [facility] [address] [address]- 0306 Feb, [facility] [id number] [place] [address] 40713- 2451 Feb, Mixed hyperlipidemia E78.2 [facility] [address], [place] [address]- 4478 Feb, [facility] [address], [place] [address]- 6973 Jan, [facility] [address], [place] [address]- 6258 Jan, Generalized osteoarthritis M15.9 [facility] [address], [place] [address]- 3921 Oct, [facility] [address] [address]- 7957 Jul, [facility] [address] [place] [address]- 3259 13 Jul, 2016 [facility] [id number] [address]- 5342 02 Jul, 2017 Type 2 diabetes mellitus with hyperglycemia E11.65 ; Chronic kidney disease, stage 3 (moderate) N18.3 ; Type 2 diabetes mellitus with foot ulcer E11.621 ; Type 2 diabetes mellitus with diabetic polyneuropathy E11.42 ; Generalized osteoarthritis M15.9 ; Trochanteric bursitis of left hip M70.62 and Tinea pedis of both feet B35.3 [facility] [address], [place] [address]- 4594 13 Jun, 2016 [facility] [id number] [place] [address] 61940- 2677 Apr, [facility] [id number] [place] [address] 38857- 3270 Apr, [facility] [id number] [place] [address] 97828- 3184 Mar, [facility] [id number] [place] [address] 66420- 8425 Feb, Encounter for immunization Z23 [facility] [id number] [place] [address] 80788- 2356 Feb, [facility] [id number] [place] [address] 83144- 2261 Feb, Type 2 diabetes mellitus with hyperglycemia E11.65 ; Encounter for immunization Z23 ; Diarrhea, unspecified type R19.7 ; Essential hypertension I10 ; Mixed hyperlipidemia E78.2 ; Hypoxia R09.02 ; 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 and Type 2 diabetes mellitus with foot ulcer E11.621 [facility] [address] [place] [address] 06577- 6778 Jan, [facility] [address] [place] [address] 74378- 8195 Jan, Type 2 diabetes mellitus with hyperglycemia E11.65 and Pneumonia due to infectious organism, unspecified laterality, unspecified part of lung J18.9 [facility] [address] [place] [address] 25682- 3643 Jan, [facility] [address] [place] [address] 60958- 5987 16 Jan, 2016 [facility] [address] [place] [address] 64121- 6895 Oct, Type 2 diabetes mellitus with hyperglycemia E11.65 ; Generalized osteoarthritis M15.9 and Chronic prescription opiate use Z79.891 [facility] [id number] [place] [address] 07079- 8535 September, [facility] [id number] [place] [address] 97079- 8121 Aug, [facility] [id number] [place] [address] 10527- 9469 Aug, [facility] [id number] [place] [address] 24338- 3749 Aug, [facility] [id number] [place] [address] 50899- 3950 Aug, [facility] [id number] [place] [address] 20961- 4294 Jun, [facility] [id number] [place] [address] 74290- 5336 Jun, Type 2 diabetes mellitus with hyperglycemia E11.65 ; Mixed hyperlipidemia E78.2 ; Vaginal itching L29.8 ; Neck muscle spasm M62.838 and Skin abrasion T14.8 [facility] [id number] [place] [address] 27684- 4008 Apr, [facility] [id number] [place] [address] 04460- 6016 Apr, [facility] [id number] [place] [address] 10455- 7000 Mar, [facility] [id number] [place] [address] 70175- 2887 Feb, [facility] [id number] [place] [address] 95969- 8677 Feb, Type 2 diabetes mellitus with hyperglycemia E11.65 ; Type 2 diabetes mellitus with foot ulcer E11.621 ; Type 2 diabetes mellitus with diabetic polyneuropathy E11.42 and Encounter for immunization Z23 [facility] [id number] [place] [address] 19943- 5876 Jan, Hypertension 401.9 ; Uncontrolled type 2 diabetes mellitus 250.02 ; Right shoulder pain 719.41 and Ulcer of heel and midfoot 707.14 [facility] [id number] [place] [address] 08371- 6316 Dec, Diabetes with other specified manifestations, type II or unspecified type, not stated as uncontrolled 250.80 ; Ulcer of heel and midfoot 707.14 ; Hypertension 401.9 ; Hip pain, left 719.45 and Acute anxiety 300.00 [facility] [id number] [place] [address] 52915- 4928 Nov, [facility] [id number] [place] [address] 21404- 6337 Nov, [facility] [id number] [place] [address] 16725- 3458 September, Anxiety attack 300.01 and Cellulitis 682.9 [facility] [id number] [place] [address] 46209- 4803 September, [facility] [id number] [place] [address] 53677- 7629 September, [facility] [id number] [place] [address] 06667- 8556 September, [facility] [id number] [place] [address] 30253- 0829 Aug, [facility] [id number] [place] [address] 97571- 3078 Aug, [facility] [id number] [place] [address] 64110- 5628 Jul, [facility] [id number] [place] [address] 52657- 7169 Jul, [facility] [id number] [place] [address] 47045- 5871 Jul, [facility] [place] [facility] [address] [id number] [place] [address]- 4476 13 May, 2014 [facility] [place] [facility] [address] [id number] [place] [address]- 7818 13 May, 2014 [facility] [place] [facility] [address] [id number] [place] [address]- 6093 Mar, [facility] [place] [facility] [address] [id number] [place] [address]- 2659 Mar, [facility] [place] [facility] [address] [id number] [place] [address]- 3735 Mar, [facility] [place] [facility] [address] [id number] [place] [address]- 9294 Mar, [facility] [place] [facility] [address] [id number] [place] [address]- 5290 Mar, [facility] [place] [facility] [address] [id number] [place] [address]- 5233 Mar, [facility] [place] [facility] [address] [id number] [place] [address]- 2421 Mar, [facility] [place] [facility] [address] [id number] [place] [address]- 2594 14 Feb, 2014 [facility] [place] [facility] [address] [id number] [place] [address]- 6151 14 Feb, 2014 [facility] [place] [facility] [address] [id number] [place] [address]- 0506 30 Jan, 2014 [facility] [place] [facility] [address] [id number] [place] [address]- 7532 30 Jan, 2014 [facility] [place] [facility] [address] [id number] [place] [address]- 8409 26 Jan, 2014 [facility] [place] [facility] [address] [id number] [place] [address]- 5860 26 Jan, 2014 [facility] [place] [facility] [address] [id number] [place] [address]- 8896 25 Sep, 2013 [facility] [place] [facility] [address] [id number] [place] [address]- 5367 25 Sep, 2013 [facility] [place] [facility] [address] [id number] [place] [address]- 6446 25 Sep, 2013 [facility] [place] [facility] [address] [id number] [place] [address]- 6493 25 Sep, 2013 [facility] [place] [facility] [address] [id number] [place] [address]- 3651 18 Sep, 2013 [facility] [place] [facility] [address] [id number] [place] [address]- 0511 18 Sep, 2013 [facility] [place] [facility] [address] [id number] [place] [address]- 2736 06 Sep, 2013 [facility] [place] [facility] [address] [id number] [place] [address]- 7728 06 Sep, 2013 [facility] [place] [facility] [address] [id number] [place] [address]- 7856 05 Sep, 2013 [facility] [place] [facility] [address] [id number] [place] [address]- 9020 05 Sep, 2013 [facility] [place] [facility] [address] [id number] [place] [address]- 4304 05 Sep, 2013 [facility] [place] [facility] [address] [id number] [address]- 6267 05 Sep, 2013 [facility] [place] [facility] [address] [id number] [address]- 8534 05 Sep, 2013 [facility] [place] [facility] [address] [id number] [place] [address]- 9325 05 Sep, 2013 [facility] [place] [facility] [address] [id number] [place] [address]- 5939 Dec, [facility] [place] [facility] [address] [id number] [place] [address]- 9845 Dec, [facility] [place] [facility] [address] [id number] [place] [address]- 3470 Dec, 2013 [facility] [place] [facility] [address] [id number] [place] [address]- 0365 Dec, [facility] [place] [facility] [address] [id number] [place] [address]- 1726 Dec, [facility] [place] [facility] [address] [id number] [place] [address]- 1227 Dec, 2013 [facility] [place] [facility] [address] [id number] [place] [address]- 0701 Dec, [facility] [place] [facility] [address] [id number] [place] [address]- 6698 Dec, [facility] [place] [facility] [address] [id number] [place] [address]- 4899 Dec, [facility] [place] [facility] [address] [id number] [place] [address]- 9182 Dec, [facility] [place] [facility] [address] [id number] [place] [address]- 8981 Nov, [facility] [place] [facility] [address] [id number] [place] [address]- 2348 Nov, [facility] [place] [facility] [address] [id number] [place] [address]- 5262 Nov, [facility] [place] [facility] [address] [id number] [place] [address]- 8795 Nov, [facility] [place] [facility] [address] [id number] [place] [address]- 3053 Nov, [facility] [place] [facility] [address] [id number] [place] [address]- 7340 Nov, [facility] [place] [facility] [address] [id number] [place] [address]- 3351 Oct, [facility] [place] [facility] [address] [id number] [place] [address]- 0989 Oct, [facility] [place] [facility] [address] [id number] [place] [address]- 8461 Oct, [facility] [place] [facility] [address] [id number] [place] [address]- 2572 Oct, [facility] [place] [facility] [address] [id number] [place] [address]- 4402 Oct, [facility] [place] [facility] [address] [id number] [place] [address]- 8343 Oct, [facility] [place] [facility] [address] [id number] [place] [address]- 1949 Oct, [facility] [place] [facility] [address] [id number] [place] [address]- 7457 Oct, [facility] [place] [facility] [address] [id number] [place] [address]- 1160 Oct, [facility] [place] [facility] [address] [id number] [place] [address]- 0221 Oct, [facility] [place] [facility] [address] [id number] [place] [address]- 4347 Oct, [facility] [place] [facility] [address] [id number] [place] [address]- 7793 Oct, [facility] [place] [facility] [address] [id number] [place] [address]- 4590 September, [facility] [place] [facility] [address] [id number] [place] [address]- 7560 September, [facility] [place] [facility] [address] [id number] [place] [address]- 8411 September, [facility] [place] [facility] [address] [id number] [place] [address]- 4505 Aug, [facility] [place] [facility] [address] [id number] [place] [address]- 9488 Aug, [facility] [place] [facility] [address] [id number] [place] [address] Jul, [facility] [place] [facility] [address] [id number] [place] [address] Jul, [facility] [place] [facility] [address] [id number] [place] [address] Jul, [facility] [place] [facility] [address] [id number] [place] [address] Jul, [facility] [place] [facility] [address] [id number] [place] [address] Jul, [facility] [place] [facility] [address] [id number] [place] [address] Jul, [facility] [place] [facility] [address] [id number] [place] [address] Jul, [facility] [place] [facility] [address] [id number] [place] [address] Jul, [facility] [place] [facility] [address] [id number] [place] [address] Jul, [facility] [place] [facility] [address] [id number] [place] [address] Jul, [facility] [place] [facility] [address] [id number] [place] [address] Jun, [facility] [place] [facility] [address] [id number] [place] [address] Jun, [facility] [place] [facility] [address] [id number] [place] [address] Jun, [facility] [place] [facility] [address] [id number] [place] [address] Jun, [facility] [place] [facility] [address] [id number] [place] [address] May, [facility] [place] [facility] [address] [id number] [place] [address] May, [facility] [place] [facility] [address] [id number] [place] [address] Apr, [facility] [place] [facility] [address] [id number] [place] [address] Apr, [facility] [place] [facility] [address] [id number] [place] [address] Apr, [facility] [place] [facility] [address] [id number] [place] [address] Apr, [facility] [place] [facility] [address] [id number] [place] [address] Apr, [facility] [place] [facility] [address] [id number] [place] [address] Apr, [facility] [place] [facility] [address] [id number] [place] [address] Apr, [facility] [place] [facility] [address] [id number] [place] [address] Apr, [facility] [place] [facility] [address] [id number] [place] [address] Mar, [facility] [place] [facility] [address] [id number] [place] [address] Mar, [facility] [place] [facility] [address] [id number] [place] [address] Mar, [facility] [place] [facility] [address] [id number] [place] [address] Mar, [facility] [place] [facility] [address] [id number] [place] [address] Mar, [facility] [place] [facility] [address] [id number] [place] [address] 8[address] Mar, [facility] [place] [facility] [address] [id number] [place] [address] 8675 Feb, [facility] [place] [facility] [address] [id number] [place] [address] 7622 30 Feb, 2013 [facility] [place] [facility] [address] [id number] [place] [address] 0634 18 Feb, 2013 [facility] [place] [facility] [address] [id number] [place] [address]- 6780 18 Feb, 2013 [facility] [place] [facility] [address] [id number] [place] [address] 8539 14 Feb, 2013 [facility] [place] [facility] [address] [id number] [place] [address]- 6091 14 Feb, 2013 [facility] [place] [facility] [address] [id number] [place] [address]- 8984 04 Feb, 2013 [facility] [place] [facility] [address] [id number] [place] [address]- 3540 27 Jan, 2013 [facility] [place] [facility] [address] [id number] [place] [address]- 2671 26 Jan, 2013 [facility] [place] [facility] [address] [id number] [place] [address]- 6398 19 Jan, 2013 [facility] [place] [facility] [address] [id number] [place] [address]- 7269 05 Jan, 2013 [facility] [place] [facility] [address] [id number] [place] [address] 3561 Dec, [facility] [place] [facility] [address] [id number], [place] [address] 7[address] Dec, [facility] [place] [facility] [address] [id number], [place] [address] 7972 Dec, [facility] [place] [facility] [address] [id number] [place] [address]- 3683 Nov, [facility] [place] [facility] [address] [id number], [place] [address]- 5470 Nov, [facility] [place] [facility] [address] [id number] [place] [address]- 2844 Nov, [facility] [place] [facility] [address] [id number] [place] [address]- 1401 Nov, [facility] [address] [id number] [place] [address]- 5226 Nov, [facility] [place] [facility] [address] [id number] [place] [address]- 4654 Nov, [facility] [address] [id number] [place] [address]- 8064 Oct, [facility] [place] [facility] [address] [id number] [place] [address]- 3208 Oct, [facility] [address] [id number] [place] [address]- 7197 Oct, [facility] [address] [id number] [place] [address]- 4362 Oct, [facility] [address] [id number] [place] [address]- 9114 Oct, [facility] [address] [id number] [place] [address]- 0105 Oct, [facility] [place] [facility] [address] [id number] [place] [address]- 4995 September, [facility] [address] [id number] [place] [address]- 0188 September, [facility] [place] [facility] [address] [id number] [place] [address]- 4210 September, [facility] [place] [facility] [address] [id number] [place] [address]- 8175 September, [facility] [place] [facility] [address] [id number] [place] [address]- 4121 Aug, [facility] [place] [facility] [address] [id number] [place] [address]- 6546 Aug, [facility] [place] [facility] [address] [id number] [place] [address]- 7838 Jul, [facility] [place] [facility] [address] [id number] [place] [address]- 5113 21 Jul, 2012 [facility] [address] [id number] [place] [address]- 6459 18 Jul, 2012 [facility] [address] [id number] [place] [address] 15 Jul, 2012 [facility] [address] [id number] [place] [address]- 8657 13 Jul, 2012 [facility] [address] [id number] [place] [address]- 8837 08 Jul, 2012 [facility] [address] [id number] [place] [address]- 0833 20 Jun, 2012 [facility] [address] [id number] [place] [address]- 4788 13 Jun, 2012 [facility] [address] [id number] [place] [address]- 9661 17 May, 2012 [facility] [address] [id number] [place] [address]- 4127 May, [facility] [address] [id number] [place] [address]- 1853 18 Apr, 2012 [facility] [address] [id number] [place] [address]- 7604 18 Apr, 2012 [facility] [address] [id number] [place] [address]- 7571 13 Apr, 2012 [facility] [place] [facility] [address] [id number] [place] [address]- 8903 13 Apr, 2012 [facility] [place] [facility] [address] [id number] [place] [address]76 10 Apr, 2012 [facility] [place] [facility] [address] [id number] [place] [address]- 1035 10 Apr, 2012 [facility] [place] [facility] [address] [id number], [place] [address] 8548 Apr, [facility] [place] [facility] [address] [id number] [place] [address]- 6645 Apr, [facility] [place] [facility] [address] [id number] [place] [address] Apr, [facility] [place] [facility] [address] [id number] [place] [address]- 1296 Apr, [facility] [place] [facility] [address] [id number] [place] [address]- 1063 Apr, [facility] [place] [facility] [address] [id number] [place] [address]- 3960 Apr, [facility] [place] [facility] [address] [id number] [place] [address]- 5074 Apr, [facility] [place] [facility] [address] [facility] [id number] [place] [address]- 3823 Apr, [facility] [place] [facility] [address] [id number] [place] [address]- 0790 Apr, [facility] [place] [facility] [address] [id number] [place] [address]- 9913 Apr, [facility] [place] [facility] [address] [id number] [place] [address]- 9228 Mar, [facility] [place] [facility] [address] [id number], [place] [address]- 9575 Mar, [facility] [place] [facility] [address] [id number], [place] [address]- 8178 Mar, [facility] [place] [facility] [address] [id number], [place] [address]- 8867 Mar, [facility] [place] [facility] [address] [id number], [place] [address]- 0773 Mar, [facility] [place] [facility] [address] [facility] [id number] [place] [address]- 2836 Mar, [facility] [place] [facility] [address] [id number] [place] [address] 2546 Mar, [facility] [place] [facility] [address] [id number] [place] [address]- 2121 Mar, [facility] [place] [facility] [address] [id number] [place] [address]- 2546 Mar, [facility] [place] [facility] [address] [id number] [place] [address] 2546 Mar, [facility] [place] [facility] [address] [id number] [place] [address] 2548 Feb, [facility] [place] [facility] [address] [id number] [place] [address]- 8153 Feb, [facility] [place] [facility] [address] [id number] [place] [address]- 3729 Feb, [facility] [place] [facility] [address] [id number] [place] [address]- 0763 Feb, [facility] [place] [facility] [address] [id number] [place] [address]- 3035 Feb, [facility] [place] [facility] [address] [id number] [place] [address]- 7639 Feb, [facility] [place] [facility] [address] [id number] [place] [address]- 2650 Jan, [facility] [place] [facility] [address] [id number] [place] [address]- 5677 Dec, [facility] [place] [facility] [address] [id number] [place] [address]- 7263 Dec, [facility] [place] [facility] [address] [id number] [place] [address]- 7526 Dec, [facility] [place] [facility] [address] [id number] [place] [address]- 2546 Dec, [facility] [place] [facility] [address] [id number] [place] [address]- 0170 Nov, [facility] [address] [id number] [place] [address]- 3987 Nov, [facility] [place] [facility] [address] [id number] [place] [address]- 8402 Nov, [facility] [place] [facility] [address] [id number] [place] [address]- 6227 Nov, [facility] [place] [facility] [address] [id number] [place] [address]- 5974 Oct, [facility] [place] [facility] [address] [id number] [place] [address]- 9887 Oct, [facility] [place] [facility] [address] [id number] [place] [address]- 9167 Oct, [facility] [place] [facility] [address] [id number] [place] [address]- 0054 Oct, [facility] [place] [facility] [address] [id number] [place] [address]- 1542 Oct, [facility] [place] [facility] [address] [id number] [place] [address]- 3194 September, [facility] [place] [facility] [address] [id number] [place] [address]- 0546 September, [facility] [place] [facility] [address] [id number] [place] [address]- 3446 September, [facility] [place] [facility] [address] [id number] [place] [address]- 8815 September, [facility] [place] [facility] [address] [id number] [place] [address]- 9204 September, [facility] [place] [facility] [address] [id number] [place] [address]- 1889 September, [facility] [place] [facility] [address] [id number] [place] [address]- 7882 September, [facility] [place] [facility] [address] [id number] [place] [address]- 3550 September, [facility] [address] [id number] [place] [address]- 7465 Aug, [facility] [place] [facility] [address] [id number] [place] [address]- 7950 Aug, [facility] [place] [facility] [address] [id number] [place] [address]- 7209 Aug, [facility] [place] [facility] [address] [id number] [place] [address]- 6234 Aug, [facility] [place] [facility] [address] [id number] [place] [address]- 8091 18 Aug, 2011 [facility] [place] [facility] [address] [id number] [place] [address]- 7151 17 Aug, 2011 [facility] [address] [id number] [place] [address]- 3202 Aug, [facility] [place] [facility] [address] [id number] [place] [address]- 9751 Aug, [facility] [place] [facility] [address] [id number] [place] [address]- 9019 Aug, [facility] [place] [facility] [address] [id number] [place] [address]- 1414 Aug, [facility] [place] [facility] [address] [id number] [place] [address]- 9757 Aug, [facility] [place] [facility] [address] [id number] [place] [address]- 2310 Aug, [facility] [place] [facility] [address] [id number] [place] [address]- 1427 29 Jul, 2011 [facility] [place] [facility] [address] [id number] [place] [address]- 2148 Jul, [facility] [place] [facility] [address] [id number] [place] [address]- 6245 Jul, [facility] [place] [facility] [address] [id number] [place] [address]- 2985 Jul, [facility] [place] [facility] [address] [id number] [place] [address]- 0426 Jul, [facility] [place] [facility] [address] [id number] [place] [address] 2546 Jul, [facility] [place] [facility] [address] [id number] [place] [address]- 1316 14 Jul, 2011 [facility] [place] [facility] [address] [id number] [place] [address]- 7802 13 Jul, 2011 [facility] [place] [facility] [address] [id number] [place] [address]- 9156 Jul, [facility] [place] [facility] [address] [id number] [place] [address]- 1214 24 Jun, 2011 [facility] [place] [facility] [address] [id number] [place] [address]- 6946 Jun, [facility] [place] [facility] [address] [id number] [place] [address]- 0193 Jun, [facility] [place] [facility] [address] [id number] [place] [address]- 4588 14 Jun, 2011 [facility] [place] [facility] [address] [id number] [place] [address]- 1355 Jun, [facility] [place] [facility] [address] [id number] [place] [address]- 6706 Jun, [facility] [place] [facility] [address] [id number] [place] [address]- 4508 Jun, [facility] [place] [facility] [address] [id number] [place] [address]- 6416 May, [facility] [place] [facility] [address] [id number] [place] [address]- 4146 May, [facility] [place] [facility] [address] [id number] [place] [address]- 3671 07 May, 2011 [facility] [address] [id number] [place] [address]- 6686 May, [facility] [address] [id number] [place] [address]- 8083 May, [facility] [address] [id number] [place] [address]- 0690 May, [facility] [address] [id number] [place] [address]- 9090 May, [facility] [address] [id number] [place] [address]- 2058 Apr, [facility] [address] [id number] [place] [address]- 7743 Apr, [facility] [address] [id number] [place] [address]- 3791 Apr, [facility] [address] [id number] [place] [address]- 4025 Apr, [facility] [address] [id number] [place] [address]- 8577 Apr, [facility] [address] [id number] [place] [address]- 1856 Apr, [facility] [address] [id number] [place] [address]- 2193 Apr, [facility] [place] [facility] [address] [id number] [place] [address]- 5860 Apr, [facility] [place] [facility] [address] [id number] [place] [address]- 8007 Apr, [facility] [place] [facility] [address] [id number] [place] [address]- 4813 Mar, [facility] [place] [facility] [address] [id number] [place] [address]- 9546 Mar, [facility] [place] [facility] [address] [id number] [place] [address]- 1149 Mar, [facility] [place] [facility] [address] [id number] [place] [address]- 8386 Mar, [facility] [place] [facility] [address] [id number] [place] [address]- 2546 Mar, [facility] [place] [facility] [address] [id number] [place] [address]- 9036 Feb, [facility] [place] [facility] [address] [id number] [place] [address] 254 Feb, [facility] [place] [facility] [address] [id number] [place] [address]- 9026 Feb, [facility] [place] [facility] [address] [id number] [place] [address]- 3038 Dec, [facility] [place] [facility] [address] [id number] [place] [address]- 4690 Nov, [facility] [place] [facility] [address] [id number] [place] [address]504 Apr, [facility] [place] [facility] [address] [id number] [place] [address]- 2653 Apr, [facility] [place] [facility] [address] [id number] [place] [address]- 3056 16 Apr, 2010 [facility] [place] [facility] [address] [id number] [place] [address]- 0436 13 Apr, 2010 [facility] [place] [facility] [address] [id number] [place] [address] 2546 Apr, [facility] [place] [facility] [address] [id number] [place] [address]- 2546 Apr, [facility] [place] [facility] [address] [id number] [place] [address]- 2546 Apr, [facility] [place] [facility] [address] [id number] [place] [address]- 3188 Apr, [facility] [address] [id number] [address]- 9148 Mar, [facility] [id number], [place] [address]- 9278 Mar, [facility] [id number], [place] [address]- 9292 Mar, [facility] [id number], [place] [address]- 9655 Mar, [facility] [id number], [place] [address]- 1226 Mar, [facility] [id number] [place] [address]- 2402 Mar, [facility] [id number] [place] [address] 09779- 5997 Mar, [facility] [id number], [place] [address]- 7181 Mar, [facility] [id number], [place] [address]- 6823 Mar, [facility] [id number], [place] [address]- 1045 Mar, IMMUNIZATIONS No Known Immunizations SOCIAL HISTORY Never Assessed REASON FOR VISIT [facility] PLAN OF CARE VITAL SIGNS MEDICATIONS Unknown [...]
--- OUTSIDE RECORDS SUMMARY | 2018-04-22 23:19 | XMS REPORT ---
Author Author [facility] Address [address] [place] [address] Care Team Providers Care Bed Setter Name Role Phone MARY FRAGOSO Unavailable PROBLEMS Type Condition ICD9-CM Code QUP35-ZR Code Onset Dates Condition Status SNOMED Code Problem Severe sleep apnea G47.30 Active 49652958 Problem Iron deficiency anemia, unspecified iron deficiency anemia type D50.9 Active 96988746 Problem Decreased diffusion capacity R94.2 Active 21712990 Problem Stenosis of carotid artery, unspecified laterality I65.29 Active 82978566 Problem Coronary artery disease involving eagle coronary artery of eagle heart, angina presence unspecified I25.10 Active 1481604766478 Problem Trochanteric bursitis of left hip M70.62 Active [id number] Problem Generalized osteoarthritis M15.9 Active 689956624 Problem Presence of IVC filter Z95.828 Active 504277084 Problem Aortic valve sclerosis I35.8 Active 17773449 Problem Hypoxemia R09.02 Active 611867693 Problem Port catheter in place Z95.828 Active 922204360 Problem BMI 50.0-59.9, adult Z68.43 Active 858416084 Problem Pain R52 Active 58509696 Problem assisted 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.4 Active 833101104 Problem Renal osteodystrophy N25.0 Active 10087255 Problem Mixed hyperlipidemia E78.2 Active 389690951 Problem Essential hypertension I10 Active 39199076 Problem Anxiety about health F41.8 Active 997092554 Problem Transient cerebral ischemia, unspecified type G45.9 Active 504142394 Problem Type 2 diabetes mellitus with unspecified complications E11.8 Active 41820046 Problem Chronic kidney disease, unspecified CKD stage N18.9 Active 620148635 Problem Type 2 diabetes mellitus with hyperglycemia E11.65 Active 41904609 Problem Type 2 diabetes mellitus with foot ulcer E11.621 Active 339016769 Problem 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 [id number] [place] [address] 99323- 7894 Nov, Pain R52 [employer] [address] [place] [id number] Nov, Anemia due to acute blood loss D62 [facility] [id number] [place] [address] 48831- 1565 Nov, Pain in right hip M25.551 and Pain in left hip M25.552 [facility] [id number] [place] [address] 14996- 0910 Nov, [facility] [id number] [place] [address] 65716- 1684 Nov, [facility] [id number] [place] [address] 61140- 0836 Nov, [facility] [id number] [place] [address] 76272- 1336 Nov, [facility] [id number] [place] [address] 33206- 9508 Oct, 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 [id number] [place] [address] 72236- 2728 Oct, [facility] [address] 66734- 4908 Oct, [facility] [id number] [place] [address] 09493- 9251 Oct, [place] [address] 77396- 1401 Oct, [facility] [id number] [place] [address] 55480 -5000 September, BMI 50.0-59.9, adult Z68.43 [place] [id number] [place] [address] 73112- 0539 September, [place] [address] 39860- 6825 September, [place] [id number] [place] [address] 33044- 7985 24 Aug, 2017 Type 2 diabetes mellitus with foot ulcer E11.621 ; Transient cerebral ischemia, unspecified type G45.9 ; Essential hypertension I10 ; Mixed hyperlipidemia E78.2 and BMI 50.0-59.9, adult Z68.43 [place] [id number] [place] [address] 68124- 4632 Aug, [place] [address] 88806- 4985 14 Jul, 2017 Anxiety about health F41.8 and Mixed hyperlipidemia E78.2 [place] [facility] [id number] [place] [address] 21487- 2012 13 Jul, 2017 [place] [address] [address] 8270 12 Jun, 2017 [place] [id number] [place] [address] 14071- 3151 12 Jun, 2017 Type 2 diabetes mellitus with hyperglycemia E11.65 ; Type 2 diabetes mellitus with foot ulcer E11.621 ; Port catheter in place Z95.828 ; 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 ; Contact with and (suspected) exposure to potentially hazardous body fluids Z77.21 and BMI 50.0-59.9, adult Z68.43 [place] [address] [address]- 3447 May, [place] [id number] [place] [address] 40771- 2648 May, Open wound of right great toe, subsequent encounter S91.101D [place] [id number] [place] [address] 13204- 9021 May, [place] [id number] [place] [address] 95743- 2222 Apr, [place] [id number] [place] [address] 85178- 3561 15 Apr, 2017 [place] [id number] [place] [address] 05351- 8059 14 Apr, 2017 [place] [id number] [place] [address] 74134- 2948 14 Apr, 2017 Type 2 diabetes mellitus with diabetic polyneuropathy E11.42 [place] [address] [address] 8972 13 Apr, 2017 Open wound of right great toe, subsequent encounter S91.101D [place] [address] [address] 6759 08 Apr, 2017 Open wound of right great toe, subsequent encounter S91.101D ; Breast pain, left N64.4 ; Breast cancer screening Z12.31 ; Type 2 diabetes mellitus with foot ulcer E11.621 ; Essential hypertension I10 and BMI 50.0-59.9, adult Z68.43 [facility] [id number] [place] [address] 84048- 9711 29 Mar, 2017 Encounter for immunization Z23 [facility] [id number] [place] [address] 27978- 9728 Mar, [facility] [address] 84198- 7240 Mar, [place] [id number] [place] [address] 26407- 1799 Mar, Type 2 diabetes mellitus with diabetic polyneuropathy E11.42 ; Type 2 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 ; Type 2 diabetes mellitus with foot ulcer E11.621 ; Essential hypertension I10 ; Hypoxemia R09.02 and Generalized osteoarthritis M15.9 [place] [id number] [place] [address] 68869- 9700 Mar, Chronic kidney disease, stage 3 (moderate) N18.3 ; Acute cystitis without hematuria N30.00 ; Essential hypertension I10 ; Muscle spasms of neck M62.838 ; Type 2 diabetes mellitus with diabetic polyneuropathy E11.42 and BMI 50.0-59.9, adult Z68.43 [place] [id number] [place] [address] 39400- 2548 Feb, [facility] [id number] [place] [address] 29409 -6871 Feb, [facility] [id number] [place] [address] 26269- 4571 Feb, [facility] [id number] [place] [address] 74252- 0423 Feb, [facility] [id number] [place] [address] 76505- 5375 Feb, [facility] [id number] [place] [address] 53858- 0981 Feb, [facility] [address] [address]- 9798 Feb, Mixed hyperlipidemia E78.2 [facility] [id number] [place] [address] 65736- 8491 Feb, [facility] [id number] [place] [address] 64103- 3373 Jan, [facility] [id number] [place] [address] 91429- 6899 14 Jan, 2017 Generalized osteoarthritis M15.9 [facility] [id number] [place] [address] 42957- 3990 Oct, [facility] [id number] [place] [address] 39844- 1730 Jul, [facility] [id number] [place] [address] 80203- 1022 Jul, [facility] [id number] [place] [address] 69248- 3707 Jul, Type 2 diabetes mellitus with hyperglycemia E11.65 ; Chronic kidney disease, stage 3 (moderate) N18.3 ; Type 2 diabetes mellitus with foot ulcer E11.621 ; Type 2 diabetes mellitus with diabetic polyneuropathy E11.42 ; Generalized osteoarthritis M15.9 ; Trochanteric bursitis of left hip M70.62 and Tinea pedis of both feet B35.3 [facility] [address] [address]- 7678 Jun, [facility] [address] [address]- 1727 Apr, [facility] [id number] [place] [address] 11854- 4755 Apr, [facility] [address] [address]- 6943 Mar, [facility] [id number] [place] [address] 42925- 5109 20 Feb, 2016 Encounter for immunization Z23 [facility] [id number] [place] [address] 01787- 8914 18 Feb, 2016 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 [id number] [place] [address] 15364- 7632 Jan, [place] [address] 28896- 0683 19 Jan, 2016 Type 2 diabetes mellitus with hyperglycemia E11.65 and Pneumonia due to infectious organism, unspecified laterality, unspecified part of lung J18.9 [place] [id number] [place] [address] 83882- 2377 Jan, [facility] [id number] [place] [address] 52369- 1454 Jan, [facility] [id number] [place] [address] 80048- 7692 Oct, Type 2 diabetes mellitus with hyperglycemia E11.65 ; Generalized osteoarthritis M15.9 and Chronic prescription opiate use Z79.891 [facility] [id number] [place] [address] 11115- 2250 September, [facility] [id number] [place] [address] 13185- 2825 Aug, [facility] [id number] [place] [address] 25407- 2167 Aug, [facility] [id number] [place] [address] 35784- 4201 Aug, [place] [id number] [place] [address] 92427- 7834 Aug, [place] [address] 70550- 5886 Jun, [place] [id number] [place] [address] 29156- 0901 Jun, Type 2 diabetes mellitus with hyperglycemia E11.65 ; Mixed hyperlipidemia E78.2 ; Vaginal itching L29.8 ; Neck muscle spasm M62.838 and Skin abrasion T14.8 [place] [id number] [place] [address] 59591- 0564 Apr, [place] [address] 88343- 2514 Apr, [place] [address] 50449- 2308 Mar, [place] [address] 89048- 0946 Feb, [place] [id number] [place] [address] 94822- 4966 Feb, Type 2 diabetes mellitus with hyperglycemia E11.65 ; Type 2 diabetes mellitus with foot ulcer E11.621 ; Type 2 diabetes mellitus with diabetic polyneuropathy E11.42 and Encounter for immunization Z23 [place] [address] 17358- 6522 Jan, Hypertension 401.9 ; Uncontrolled type 2 diabetes mellitus 250.02 ; Right shoulder pain 719.41 and Ulcer of heel and midfoot 707.14 [place] [id number] [place] [address] 33250- 9738 Dec, Diabetes with other specified manifestations, type II or unspecified type, not stated as uncontrolled 250.80 ; Ulcer of heel and midfoot 707.14 ; Hypertension 401.9 ; Hip pain, left 719.45 and Acute anxiety 300.00 [place] [address] [place] [address]- 4431 14 Nov, 2014 [facility] [address] [id number] [place] [address]- 6905 10 Nov, 2014 [facility] [id number] [place] [address]- 0553 September, Anxiety attack 300.01 and Cellulitis 682.9 [facility] [address] [id number] [place] [address], [place] [address]- 5395 September, [facility] [address] [id number] [place] [address]- 1281 September, [facility] [address] [id number] [place] [address], [place] [address]- 6234 September, [facility] [id number] [place] [address]- 7434 Aug, [facility] [id number] [place] [address]- 6798 Aug, [facility] [address] [id number] [place] [address]- 1141 Jul, [facility] [address] [facility] [id number] [place] [address]- 2763 Jul, [facility] [id number] [place] [address]- 6361 Jul, [facility] [address] [facility] [id number] [place] [address]- 2870 May, [facility] [address] [id number] [place] [address]- 1747 May, [facility] [address] [facility] [id number] [place] [address] 4811 Mar, [facility] [address] [id number] [place] [address]- 5701 Mar, [facility] [address] [id number] [place] [address]- 9387 Mar, [facility] [place] [facility] [address] [id number] [place] [address]- 8410 Mar, [facility] [place] [facility] [address] [id number] [place] [address]- 4155 Mar, [facility] [place] [facility] [address] [id number] [place] [address]- 3485 Mar, [facility] [place] [facility] [address] [id number] [place] [address]- 3371 Mar, [facility] [place] [facility] [address] [id number] [place] [address]- 6277 Feb, [facility] [place] [facility] [address] [id number] [place] [address]- 1228 14 Feb, 2014 [facility] [place] [facility] [address] [id number] [place] [address]- 8392 30 Jan, 2013 [facility] [place] [facility] [address] [id number] [place] [address]- 8085 30 Jan, 2013 [facility] [place] [facility] [address] [id number] [place] [address]- 9139 26 Jan, 2013 [facility] [place] [facility] [address] [id number] [place] [address]- 7396 26 Sep, 2013 [facility] [place] [facility] [address] [id number] [place] [address]- 8954 25 Sep, 2013 [facility] [place] [facility] [address] [id number] [place] [address]- 2545 25 Sep, 2013 [facility] [place] [facility] [address] [id number] [place] [address] 2546 25 Sep, 2013 [facility] [place] [facility] [address] [id number] [place] [address]- 2541 25 Sep, 2013 [facility] [place] [facility] [address] [id number] [place] [address]- 6456 18 Sep, 2013 [facility] [place] [facility] [address] [id number] [place] [address]- 9032 18 Sep, 2013 [facility] [place] [facility] [address] [id number] [place] [address]- 3082 06 Sep, 2013 [facility] [place] [facility] [address] [id number] [place] [address]- 9075 06 Sep, 2013 [facility] [place] [facility] [address] [id number] [place] [address]- 5160 05 Sep, 2013 [facility] [place] [facility] [address] [id number] [place] [address]- 3621 05 Sep, 2013 [facility] [place] [facility] [address] [id number] [place] [address]- 8195 05 Sep, 2013 [facility] [place] [facility] [address] [id number] [place] [address]- 5221 05 Sep, 2013 [facility] [place] [facility] [address] [id number] [place] [address]- 5172 05 Sep, 2013 [facility] [place] [facility] [address] [id number] [place] [address]- 2591 05 Jan, 2013 [facility] [place] [facility] [address] [id number] [place] [address]- 7866 Dec, 2013 [facility] [place] [facility] [address] [id number] [place] [address]- 7786 Dec, 2013 [facility] [place] [facility] [address] [id number] [place] [address]- 6692 Dec, 2013 [facility] [place] [facility] [address] [id number] [place] [address]- 9443 Dec, 2013 [facility] [place] [facility] [address] [id number] [place] [address]- 2250 Dec, 2013 [facility] [place] [facility] [address] [id number] [place] [address]- 5151 Dec, 2013 [facility] [place] [facility] [address] [id number] [place] [address]- 5508 Dec, [facility] [place] [facility] [address] [id number] [place] [address]- 7476 Dec, [facility] [place] [facility] [address] [id number] [place] [address]- 6378 Dec, [facility] [place] [facility] [address] [id number] [place] [address]- 8961 Dec, [facility] [place] [facility] [address] [id number] [place] [address]- 0670 Nov, [facility] [place] [facility] [address] [id number] [place] [address]- 5511 Nov, [facility] [place] [facility] [address] [id number] [place] [address]- 5587 Nov, [facility] [place] [facility] [address] [id number] [place] [address]- 2241 Nov, [facility] [place] [facility] [address] [id number] [place] [address]- 5078 Nov, [facility] [place] [facility] [address] [id number] [place] [address]- 5333 Nov, [facility] [place] [facility] [address] [id number] [place] [address]- 7813 Oct, [facility] [place] [facility] [address] [id number] [place] [address]- 6981 Oct, [facility] [place] [facility] [address] [id number] [place] [address]- 7950 Oct, [facility] [place] [facility] [address] [id number] [place] [address]- 7087 Oct, [facility] [place] [facility] [address] [id number] [place] [address]- 3663 Oct, [facility] [place] [facility] [address] [id number] [place] [address] Oct, [facility] [place] [facility] [address] [id number] [place] [address] Oct, [facility] [place] [facility] [address] [id number] [place] [address] Oct, [facility] [place] [facility] [address] [id number] [place] [address] Oct, [facility] [place] [facility] [address] [id number] [place] [address] Oct, [facility] [place] [facility] [address] [id number] [place] [address] Oct, [facility] [place] [facility] [address] [id number] [place] [address] Oct, [facility] [place] [facility] [address] [id number] [place] [address] September, [facility] [place] [facility] [address] [id number] [place] [address] September, [facility] [place] [facility] [address] [id number] [place] [address] September, [facility] [place] [facility] [address] [id number] [place] [address] Aug, [facility] [place] [facility] [address] [id number] [place] [address] Aug, [facility] [place] [facility] [address] [id number] [place] [address] Jul, [facility] [place] [facility] [address] [id number] [place] [address] 13 Jul, 2013 [facility] [place] [facility] [address] [id number] [place] [address] 10 Jul, 2013 [facility] [place] [facility] [address] [id number] [place] [address] 10 Jul, 2013 [facility] [place] [facility] [address] [id number] [place] [address] 08 Jul, 2013 [facility] [place] [facility] [address] [id number] [place] [address] Jul, [facility] [place] [facility] [address] [id number] [place] [address] Jul, [facility] [place] [facility] [address] [id number] [place] [address] Jul, [facility] [place] [facility] [address] [id number] [place] [address] Jul, [facility] [place] [facility] [address] [id number] [place] [address] Jul, [facility] [place] [facility] [address] [id number] [place] [address] Jun, [facility] [place] [facility] [address] [id number] [place] [address] Jun, [facility] [place] [facility] [address] [id number] [place] [address] Jun, [facility] [place] [facility] [address] [id number] [place] [address] Jun, [facility] [place] [facility] [address] [id number] [place] [address] May, [facility] [place] [facility] [address] [id number] [place] [address] May, [facility] [place] [facility] [address] [id number] [place] [address] Apr, [facility] [place] [facility] [address] [id number] [place] [address] Apr, [facility] [place] [facility] [address] [id number] [place] [address] Apr, [facility] [place] [facility] [address] [id number] [place] [address] Apr, [facility] [place] [facility] [address] [id number] [place] [address] Apr, [facility] [place] [facility] [address] [id number] [place] [address] Apr, [facility] [place] [facility] [address] [id number] [place] [address] 8[address] Apr, [facility] [place] [facility] [address] [facility] [id number] [place] [address] 6433 Apr, [facility] [place] [facility] [address] [id number] [place] [address] Mar, [facility] [place] [facility] [address] [id number] [place] [address] Mar, [facility] [place] [facility] [address] [id number] [place] [address] Mar, [facility] [place] [facility] [address] [id number] [place] [address] 236[address] Mar, [facility] [place] [facility] [address] [id number] [place] [address] 5785 Mar, [facility] [place] [facility] [address] [id number] [place] [address] 3895 Mar, [facility] [place] [facility] [address] [id number] [place] [address] 58[address] Feb, [facility] [place] [facility] [address] [id number] [place] [address] 9445 30 Feb, 2013 [facility] [place] [facility] [address] [id number] [place] [address]28 18 Feb, 2013 [facility] [place] [facility] [address] [id number] [place] [address] 6211 18 Feb, 2013 [facility] [place] [facility] [address] [id number] [place] [address] 58[address] 14 Feb, 2013 [facility] [place] [facility] [address] [id number] [place] [address] 27[address] 14 Feb, 2013 [facility] [place] [facility] [address] [id number] [place] [address]- 8613 04 Feb, 2013 [facility] [address] [id number] [place] [address] 9032 27 Jan, 2013 [facility] [address] [id number] [place] [address]- 6755 26 Jan, 2013 [facility] [address] [id number] [place] [address]- 5995 Jan, [facility] [address] [id number] [place] [address]- 0073 05 Jan, 2013 [facility] [address] [id number] [place] [address]- 4262 Dec, [facility] [address] [id number] [place] [address]- 6869 Dec, [facility] [address] [id number] [place] [address]- 5369 Dec, [facility] [address] [id number] [place] [address] 7225 Nov, [facility] [address] [id number] [place] [address] 5802 Nov, [facility] [address] [id number] [place] [address]- 9405 Nov, [facility] [address] [id number] [place] [address]- 6655 Nov, [facility] [address] [id number] [place] [address]- 9291 Nov, [facility] [place] [facility] [address] [id number] [place] [address]- 7330 Nov, [facility] [place] [facility] [address] [id number] [place] [address]- 8641 Oct, [facility] [place] [facility] [address] [id number] [place] [address]- 4663 Oct, [facility] [place] [facility] [address] [id number] [place] [address]- 1995 Oct, [facility] [address] [id number] [place] [address]- 4865 Oct, [facility] [address] [id number] [place] [address]- 7346 Oct, [facility] [place] [facility] [address] [id number] [place] [address]- 5518 Oct, [facility] [address] [id number] [place] [address]- 9181 September, [facility] [address] [id number] [place] [address]- 0850 September, [facility] [address] [id number] [place] [address]- 8660 September, [facility] [address] [id number] [place] [address]- 0834 September, [facility] [address] [id number] [place] [address]- 8061 Aug, [facility] [address] [id number] [place] [address]- 0565 Aug, [facility] [place] [facility] [address] [id number] [place] [address]- 6655 Jul, [facility] [place] [facility] [address] [id number] [place] [address]- 4426 Jul, [facility] [place] [facility] [address] [id number] [place] [address]- 8112 18 Jul, 2012 [facility] [place] [facility] [address] [id number] [place] [address]- 9931 15 Jul, 2012 [facility] [place] [facility] [address] [id number] [place] [address]- [address] 13 Jul, 2012 [facility] [place] [facility] [address] [id number] [place] [address]- 8920 Jul, [facility] [address] [id number] [place] [address]- 4446 20 Jun, 2012 [facility] [address] [id number] [place] [address]- 3876 13 Jun, 2012 [facility] [address] [facility] [id number] [place] [address]- 5286 May, [facility] [address] [id number] [place] [address]- 1016 May, [facility] [address] [id number] [place] [address]- 7773 Apr, [facility] [address] [id number] [place] [address]- 5939 Apr, [facility] [address] [facility] [id number] [place] [address]- 5631 Apr, [facility] [address] [id number] [place] [address]- 8926 Apr, [facility] [address] [id number] [place] [address]- 3887 Apr, [facility] [address] [facility] [id number] [place] [address]- 7862 Apr, [facility] [address] [id number] [place] [address]- 1726 Apr, [facility] [address] [id number] [place] [address] 4693 Apr, [facility] [address] [id number] [place] [address] Apr, [facility] [address] [facility] [id number] [place] [address]- 8792 07 Apr, 2012 [facility] [address] [facility] [id number] [place] [address]- 2620 07 Apr, 2012 [facility] [place] [facility] [address] [id number] [place] [address]- 0474 Apr, [facility] [place] [facility] [address] [id number] [place] [address]- 4784 Apr, [facility] [place] [facility] [address] [id number] [place] [address]- 4896 Apr, [facility] [place] [facility] [address] [id number] [place] [address]- 5682 Apr, [facility] [place] [facility] [address] [id number] [place] [address]- 5183 Apr, [facility] [place] [facility] [address] [id number] [place] [address]- 6314 Mar, [facility] [place] [facility] [address] [id number] [place] [address]- 0951 Mar, [facility] [place] [facility] [address] [id number] [place] [address]- 4929 Mar, [facility] [place] [facility] [address] [id number] [place] [address]- 4780 Mar, [facility] [place] [facility] [address] [id number] [place] [address]- 6495 Mar, [facility] [place] [facility] [address] [id number] [place] [address]- 1638 Mar, [facility] [place] [facility] [address] [id number] [place] [address]- 9339 Mar, [facility] [place] [facility] [address] [id number] [place] [address]- 7001 Mar, [facility] [place] [facility] [address] [id number] [place] [address]- 0073 Mar, [facility] [place] [facility] [address] [id number] [place] [address]- 7051 Mar, [facility] [place] [facility] [address] [id number] [place] [address]- 1409 Feb, [facility] [place] [facility] [address] [id number] [place] [address]- 4759 Feb, [facility] [place] [facility] [address] [id number] [place] [address]- 1342 Feb, [facility] [place] [facility] [address] [id number] [place] [address]- 2193 Feb, [facility] [place] [facility] [address] [id number] [place] [address]- 7904 Feb, [facility] [place] [facility] [address] [id number] [place] [address]- 7932 Feb, [facility] [place] [facility] [address] [id number] [place] [address]- 5474 Jan, [facility] [place] [facility] [address] [id number] [place] [address]- 9115 Dec, [facility] [place] [facility] [address] [id number] [place] [address]- 7933 Dec, [facility] [place] [facility] [address] [id number] [place] [address]- 2568 Dec, [facility] [place] [facility] [address] [id number] [place] [address]- 4645 Dec, [facility] [place] [facility] [address] [id number] [place] [address]- 0703 Nov, [facility] [place] [facility] [address] [id number] [place] [address]- 2217 Nov, [facility] [place] [facility] [address] [id number] [place] [address]- 8730 Nov, [facility] [place] [facility] [address] [id number] [place] [address]- 6720 Nov, [facility] [place] [facility] [address] [id number] [place] [address]- 2624 Oct, [facility] [place] [facility] [address] [id number] [place] [address]- 3394 Oct, [facility] [address] [id number] [place] [address]- 8998 Oct, [facility] [place] [facility] [address] [id number] [place] [address]- 7865 Oct, [facility] [address] [id number] [place] [address]- 1145 Oct, [facility] [place] [facility] [address] [id number] [place] [address]- 5215 September, [facility] [address] [id number] [place] [address]- 3035 September, [facility] [place] [facility] [address] [id number] [place] [address]- 3058 September, [facility] [address] [id number] [place] [address]- 3334 September, [facility] [address] [id number] [place] [address]- 0159 September, [facility] [place] [facility] [address] [id number] [place] [address]- 1186 September, [facility] [address] [id number] [place] [address]- 7286 September, [facility] [place] [facility] [address] [id number] [place] [address]- 9726 September, [facility] [place] [facility] [address] [id number] [place] [address]- 4332 Aug, [facility] [place] [facility] [address] [id number] [place] [address]- 5661 Aug, [facility] [place] [facility] [address] [id number] [place] [address]- 3859 Aug, [facility] [place] [facility] [address] [id number] [place] [address]- 0692 Aug, [facility] [place] [facility] [address] [id number] [place] [address]- 6564 18 Aug, 2011 [facility] [address] [id number] [place] [address]- 1032 17 Aug, 2011 [facility] [address] [id number] [place] [address]- 7695 13 Aug, 2011 [facility] [address] [id number] [place] [address]- 0461 12 Aug, 2011 [facility] [address] [id number] [place] [address]- 6990 10 Aug, 2011 [facility] [address] [id number] [place] [address]- 0443 09 Aug, 2011 [facility] [address] [id number] [place] [address]- 0976 Aug, [facility] [address] [id number] [place] [address]- 4981 Aug, [facility] [address] [id number] [place] [address]- 6179 29 Jul, 2011 [facility] [address] [id number] [place] [address]- 2467 28 Jul, 2011 [facility] [address] [id number] [place] [address]- 3526 27 Jul, 2011 [facility] [place] [facility] [address] [id number] [place] [address]- 1414 23 Jul, 2011 [facility] [place] [facility] [address] [id number] [place] [address]- 7579 21 Jul, 2011 [facility] [place] [facility] [address] [id number] [place] [address]- 4423 21 Jul, 2011 [facility] [place] [facility] [address] [id number] [place] [address]- 4863 14 Jul, 2011 [facility] [place] [facility] [address] [id number] [place] [address]- 2546 Jul, [facility] [address] [id number] [place] [address]- 6485 Jul, [facility] [place] [facility] [address] [id number] [place] [address]- 3056 24 Jun, 2011 [facility] [place] [facility] [address] [id number] [place] [address]- 4546 Jun, [facility] [place] [facility] [address] [id number] [place] [address]- 5194 Jun, [facility] [place] [facility] [address] [id number] [place] [address]- 3116 14 Jun, 2011 [facility] [place] [facility] [address] [id number] [place] [address]- 6856 Jun, [facility] [address] [id number] [place] [address]- 0981 Jun, [facility] [place] [facility] [address] [id number] [place] [address]- 7370 Jun, [facility] [place] [facility] [address] [id number] [place] [address]- 9988 May, [facility] [address] [id number] [place] [address]- 0989 May, [facility] [address] [id number] [place] [address]- 6515 May, [facility] [place] [facility] [address] [id number] [place] [address]- 9406 May, [facility] [place] [facility] [address] [id number] [place] [address]- 3136 May, [facility] [place] [facility] [address] [id number] [place] [address]- 6438 May, [facility] [place] [facility] [address] [id number] [place] [address]- 7308 May, [facility] [place] [facility] [address] [id number] [place] [address]- 5078 Apr, [facility] [place] [facility] [address] [id number] [place] [address]- 9815 Apr, [facility] [place] [facility] [address] [id number] [place] [address]- 6114 Apr, [facility] [place] [facility] [address] [id number] [place] [address]- 7633 Apr, [facility] [place] [facility] [address] [id number] [place] [address]- 9440 Apr, [facility] [place] [facility] [address] [id number] [place] [address]- 6924 Apr, [facility] [place] [facility] [address] [id number] [place] [address]- 7189 Apr, [facility] [place] [facility] [address] [id number] [place] [address]- 7961 Apr, [facility] [place] [facility] [address] [id number] [place] [address]- 7539 Apr, [facility] [place] [facility] [address] [id number] [place] [address]- 2664 Mar, [facility] [place] [facility] [address] [id number] [place] [address]- 1234 Mar, [facility] [place] [facility] [address] [id number] [place] [address]- 1509 Mar, [facility] [place] [facility] [address] [id number] [place] [address]- 5119 Mar, [facility] [place] [facility] [address] [id number] [place] [address]- 5320 Mar, [facility] [place] [facility] [address] [id number] [place] [address]- 4469 Feb, [facility] [place] [facility] [address] [id number] [place] [address]- 7566 Feb, [facility] [address] [id number] [place] [address]- 5616 Feb, [facility] [place] [facility] [address] [id number] [place] [address]- 6606 Dec, [facility] [place] [facility] [address] [id number] [place] [address] 2546 Nov, [facility] [place] [facility] [address] [id number] [place] [address]- 4301 Apr, [facility] [place] [facility] [address] [id number] [place] [address]- 4251 Apr, [facility] [place] [facility] [address] [id number] [place] [address]- 1365 16 Apr, 2010 [facility] [place] [facility] [address] [id number] [place] [address]- 5012 Apr, [facility] [place] [facility] [address] [id number] [place] [address]- 3039 Apr, [facility] [place] [facility] [address] [id number] [place] [address]- 4351 Apr, [facility] [place] [facility] [address] [id number] [place] [address]- 9760 Apr, [facility] [place] [facility] [address] [id number] [place] [address]- 5972 Apr, [facility] [place] [facility] [address] [id number] [place] [address]- 4062 Mar, [facility] [place] [facility] [address] [id number] [place] [address]- 2141 Mar, [facility] [place] [facility] [address] [id number] [place] [address]- 0631 Mar, [facility] [place] [facility] [address] [id number] [place] [address]- 9925 Mar, [facility] [place] [facility] [address] [facility] [id number] [place] [address]- 4131 Mar, [facility] [address] [id number] [address] 9359 Mar, [facility] [address] [id number] [address]- 1619 Mar, [facility] [address] [id number] [address]- 3708 Mar, [facility] [address] [id number] [address]- 0701 Mar, [facility] [id number] [address]- 5342 Mar, IMMUNIZATIONS No Known Immunizations SOCIAL HISTORY Never Assessed REASON FOR VISIT Refill Requests PLAN OF CARE VITAL SIGNS MEDICATIONS Medication Instructions Dosage Frequency Start Date End Date Duration Status Neurontin 100 mg Orally 3 times a day 1 capsule 8h 30 Active Fish Oil 1000 MG Orally 3 times a day 1 capsule 8h Active Torsemide 100 mg Orally Once a day 1 tablet as needed 24h Active Lomotil 2.5-0.025 MG Orally Four times a day 1 tablet as needed 6h Active Vitamin D3 5000 UNIT Orally Once a day 24h Active Plavix 75 MG TAKE ONE TABLET BY MOUTH DAILY 30 Active Losartan Potassium 100 MG Orally Once a day 1 tablet 24h Active Alavert 10 mg take 1 tablet (10 mg) by oral route once daily September, Active Multivitamin Adult - Active Vitamin D2 50,000 unit take 1 capsule (50,000 unit) by oral route once weekly for 12 weeks Jan, Not-Taking Calcium Carbonate-Vitamin D3 600-400 MG-UNIT Orally 3 times a day 8h Active Diazepam 5 mg Orally 30 minutes before procedure 1 tablet as needed Jul, Active NovoLog Flexpen 100 UNIT/ML Subcutaneous 3 times a day 9 units before meals 8h Jul, Active Refresh Optive 0.5-0.9 % Active Levemir Flexpen 100 UNIT/ML INJECT 20 UNITS SUBCUTANEOUSLY TWICE DAILY 37 Active Magnesium Oxide 250 MG Orally Once a day 1 tablet 24h Active Valium 5 MG Orally PRN 1 tablet as needed 30 before procedure, can repeat dose if needed. Do not drive after taking. September, Not-Taking Aspirin 81 mg take 1 tablet (81 mg) by oral route once daily 24 Sep, 2011 Active Metoprolol Tartrate 25 MG Orally Twice a day 1 tablet 12h 30 days Active Rosuvastatin Calcium 20 MG Orally Once a day 1 tablet 24h 90 days Active Simbrinza 1-0.2 % Ophthalmic Three times a day 1 drop into affected eye 8h Active Flaxseed Oil 1000 MG Active Arginine 1000 MG Orally 3 times a day 2 tablets 8h Active Nitroglycerin [address] 1 tablet (0.4 mg) by sublingual route at the 1st sign of attack; may repeat every 5 min until relief; if pain persists after 3 tablets in 15 min, prompt medical attention is recommendedPRN Mar, Not-Taking RESULTS No Results PROCEDURES No Known procedures [...]
--- OUTSIDE RECORDS SUMMARY | 2018-04-22 23:20 | XMS REPORT ---
Author Author MARY FRAGOSO [facility] Address [address] [place] [address] Care Team Providers Care Electric Detector Operator Name Role Phone MARY FRAGOSO Unavailable PROBLEMS Type Condition ICD9-CM Code SYD12-WM Code Onset Dates Condition Status SNOMED Code Problem Severe sleep apnea G47.30 Active 66082263 Problem Iron deficiency anemia, unspecified iron deficiency anemia type D50.9 Active 05382770 Problem Decreased diffusion capacity R94.2 Active 91131455 Problem Stenosis of carotid artery, unspecified laterality I65.29 Active 18980428 Problem Coronary artery disease involving little shell tribe coronary artery of little shell tribe heart, angina presence unspecified I25.10 Active [id number] Problem Trochanteric bursitis of left hip M70.62 Active 928471567599520 Problem Generalized osteoarthritis M15.9 Active 397007884 Problem Presence of IVC filter Z95.828 Active 367603930 Problem Aortic valve sclerosis I35.8 Active 65860340 Problem Hypoxemia R09.02 Active 812600676 Problem Port catheter in place Z95.828 Active 481856974 Problem BMI 50.0-59.9, adult Z68.43 Active 408335177 Problem Pain R52 Active 35769313 Problem [facility] 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.4 Active 036278831 Problem Renal osteodystrophy N25.0 Active 55908704 Problem Mixed hyperlipidemia E78.2 Active 210328170 Problem Essential hypertension I10 Active 97385572 Problem Anxiety about health F41.8 Active 478100916 Problem Transient cerebral ischemia, unspecified type G45.9 Active 388394320 Problem Type 2 diabetes mellitus with unspecified complications E11.8 Active 05377349 Problem Chronic kidney disease, unspecified CKD stage N18.9 Active 832293896 Problem Type 2 diabetes mellitus with hyperglycemia E11.65 Active 00978581 Problem Type 2 diabetes mellitus with foot ulcer E11.621 Active 728658183 Problem 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 Active 5216520 Problem Type 2 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 Active 57011783 Problem Chronic kidney disease, stage 3 (moderate) N18.3 Active 576542788 Problem Diarrhea, unspecified type R19.7 Active 32133328 Problem Type 2 diabetes mellitus with diabetic polyneuropathy E11.42 Active 876009026 Problem Anemia in other chronic diseases classified elsewhere D63.8 Active 761430800 ALLERGIES No Information ENCOUNTERS Encounter Location Date Diagnosis [facility] [id number] [place] [address] 15590- 0262 Nov, Pain R52 [facility] [address] [place] [id number] Nov, Anemia due to acute blood loss D62 [facility] [id number] [place] [address] 88279- 5559 Nov, Pain in right hip M25.551 and Pain in left hip M25.552 [facility] [id number] [place] [address] 33838- 2437 Nov, [facility] [id number] [place] [address] 05384- 4645 Nov, [facility] [id number] [place] [address] 12396- 5323 Nov, [facility] [id number] [place] [address] 37087- 8320 Nov, [facility] [id number] [place] [address] 76565- 7010 Oct, [facility] [id number] [place] [address] 48529- 6919 Oct, [facility] [address] [id number] Oct, Encounter for examination for admission to care home Z02.2 ; Chronic kidney disease, unspecified CKD stage N18.9 ; Type 2 diabetes mellitus with unspecified complications E11.8 ; 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 ; Essential hypertension I10 ; Hypoxia R09.02 ; Severe sleep apnea G47.30 ; Stenosis of carotid artery, unspecified laterality I65.29 ; Generalized osteoarthritis M15.9 ; Coronary artery disease involving little shell tribe coronary artery of little shell tribe heart, angina presence unspecified I25.10 ; Port catheter in place Z95.828 and Hemorrhoids, unspecified hemorrhoid type K64.9 [facility] [id number] [place] [address] 41836- 3124 Oct, [facility] [address] 19911- 3831 Oct, [facility] [id number] [place] [address] 61780- 6267 Oct, [place] [facility] [address] 57082- 9164 Oct, [facility] [id number] [place] [address] 39505 -2322 September, BMI 50.0-59.9, adult Z68.43 [facility] [id number] [place] [address] 24490- 0288 September, [facility] [address] 17792- 8460 September, [facility] [id number] [place] [address] 11126- 6059 24 Aug, 2017 Type 2 diabetes mellitus with foot ulcer E11.621 ; Transient cerebral ischemia, unspecified type G45.9 ; Essential hypertension I10 ; Mixed hyperlipidemia E78.2 and BMI 50.0-59.9, adult Z68.43 [facility] [id number] [place] [address] 71395- 7578 Aug, [facility] [address] 91006- 7411 14 Jul, 2017 Anxiety about health F41.8 and Mixed hyperlipidemia E78.2 [facility] [id number] [place] [address] 41545- 5707 13 Jul, 2017 [place] [facility] [address] [address] 6191 12 Jun, 2017 [facility] [id number] [place] [address] 13391- 1351 12 Jun, 2017 Type 2 diabetes mellitus with hyperglycemia E11.65 ; Type 2 diabetes mellitus with foot ulcer E11.621 ; Port catheter in place Z95.828 ; 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 ; Contact with and (suspected) exposure to potentially hazardous body fluids Z77.21 and BMI 50.0-59.9, adult Z68.43 [facility] [id number] [address] 7019 May, [facility] [id number] [place] [address] 32099- 7764 May, Open wound of right great toe, subsequent encounter S91.101D [facility] [id number] [place] [address] 98395- 7864 May, [facility] [id number] [place] [address] 96342- 8307 Apr, [facility] [id number] [place] [address] 84389- 0568 15 Apr, 2017 [facility] [id number] [place] [address] 56227- 6429 14 Apr, 2017 [facility] [id number] [place] [address] 53100- 1721 14 Apr, 2017 Type 2 diabetes mellitus with diabetic polyneuropathy E11.42 [facility] [address] [address] 2235 13 Apr, 2017 Open wound of right great toe, subsequent encounter S91.101D [facility] [address] [address] 8103 08 Apr, 2017 Open wound of right great toe, subsequent encounter S91.101D ; Breast pain, left N64.4 ; Breast cancer screening Z12.31 ; Type 2 diabetes mellitus with foot ulcer E11.621 ; Essential hypertension I10 and BMI 50.0-59.9, adult Z68.43 [facility] [id number] [place] [address] 11485- 5378 29 Mar, 2017 Encounter for immunization Z23 [facility] [id number] [place] [address] 97738- 0739 Mar, [facility] [address] 20346- 4850 Mar, [facility] [facility] [id number] [place] [address] 03194- 6941 Mar, Type 2 diabetes mellitus with diabetic polyneuropathy E11.42 ; Type 2 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 ; Type 2 diabetes mellitus with foot ulcer E11.621 ; Essential hypertension I10 ; Hypoxemia R09.02 and Generalized osteoarthritis M15.9 [place] [id number] [place] [address] 09940- 6786 Mar, Chronic kidney disease, stage 3 (moderate) N18.3 ; Acute cystitis without hematuria N30.00 ; Essential hypertension I10 ; Muscle spasms of neck M62.838 ; Type 2 diabetes mellitus with diabetic polyneuropathy E11.42 and BMI 50.0-59.9, adult Z68.43 [facility] [id number] [place] [address] 02047- 8347 Feb, [facility] [address] [place] [address] 10079 -4850 Feb, [facility] [id number] [place] [address] 84666- 6003 Feb, [facility] [id number] [place] [address] 52846- 4680 Feb, [facility] [id number] [place] [address] 39925- 9437 Feb, [facility] [id number] [place] [address] 56987- 6598 Feb, [facility] [address] [address]- 3515 Feb, Mixed hyperlipidemia E78.2 [facility] [id number] [place] [address] 17911- 0255 Feb, [facility] [id number] [place] [address] 57050- 1597 Jan, [facility] [id number] [place] [address] 91385- 6416 14 Jan, 2017 Generalized osteoarthritis M15.9 [facility] [id number] [place] [address] 54923- 1111 Oct, [facility] [id number] [place] [address] 73883- 0283 Jul, [facility] [id number] [place] [address] 84466- 6566 Jul, [facility] [id number] [place] [address] 85801- 7456 Jul, Type 2 diabetes mellitus with hyperglycemia E11.65 ; Chronic kidney disease, stage 3 (moderate) N18.3 ; Type 2 diabetes mellitus with foot ulcer E11.621 ; Type 2 diabetes mellitus with diabetic polyneuropathy E11.42 ; Generalized osteoarthritis M15.9 ; Trochanteric bursitis of left hip M70.62 and Tinea pedis of both feet B35.3 [facility] [address] [address]- 5444 Jun, [facility] [address] [address]- 8140 Apr, [facility] [id number] [place] [address] 61463- 2837 Apr, [facility] [address] [address]- 0002 Mar, [facility] [id number] [place] [address] 58305- 2360 20 Feb, 2016 Encounter for immunization Z23 [facility] [id number] [place] [address] 93579- 0662 18 Feb, 2016 [facility] [id number] [place] [address] 39456- 2935 14 Feb, 2016 Type 2 diabetes mellitus with hyperglycemia E11.65 ; Encounter for immunization Z23 ; Diarrhea, unspecified type R19.7 ; Essential hypertension I10 ; Mixed hyperlipidemia E78.2 ; Hypoxia R09.02 ; 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 and Type 2 diabetes mellitus with foot ulcer E11.621 [facility] [id number] [place] [address] 03669- 3387 Jan, [place] [address] 81213- 3373 19 Jan, 2016 Type 2 diabetes mellitus with hyperglycemia E11.65 and Pneumonia due to infectious organism, unspecified laterality, unspecified part of lung J18.9 [facility] [id number] [place] [address] 88653- 2422 Jan, [facility] [id number] [place] [address] 72947- 0965 Jan, [facility] [id number] [place] [address] 18850- 6932 Oct, Type 2 diabetes mellitus with hyperglycemia E11.65 ; Generalized osteoarthritis M15.9 and Chronic prescription opiate use Z79.891 [facility] [id number] [place] [address] 28405- 3141 September, [facility] [id number] [place] [address] 89482- 3447 Aug, [facility] [id number] [place] [address] 23921- 6917 Aug, [facility] [id number] [place] [address] 91177- 5044 Aug, [place] [id number] [place] [address] 99108- 6776 Aug, [place] [address] 20843- 8086 Jun, [place] [facility] [id number] [place] [address] 40702- 8339 Jun, Type 2 diabetes mellitus with hyperglycemia E11.65 ; Mixed hyperlipidemia E78.2 ; Vaginal itching L29.8 ; Neck muscle spasm M62.838 and Skin abrasion T14.8 [place] [facility] [id number] [place] [address] 50544- 8835 Apr, [place] [address] 98129- 6712 Apr, [place] [address] 64570- 4051 Mar, [place] [address] 89175- 8862 Feb, [facility] [id number] [place] [address] 46572- 6223 Feb, Type 2 diabetes mellitus with hyperglycemia E11.65 ; Type 2 diabetes mellitus with foot ulcer E11.621 ; Type 2 diabetes mellitus with diabetic polyneuropathy E11.42 and Encounter for immunization Z23 [place] [address] 44487- 4443 Jan, Hypertension 401.9 ; Uncontrolled type 2 diabetes mellitus 250.02 ; Right shoulder pain 719.41 and Ulcer of heel and midfoot 707.14 [place] [id number] [place] [address] 35924- 3383 Dec, Diabetes with other specified manifestations, type II or unspecified type, not stated as uncontrolled 250.80 ; Ulcer of heel and midfoot 707.14 ; Hypertension 401.9 ; Hip pain, left 719.45 and Acute anxiety 300.00 [place] [address] [place] [address]- 5855 14 Nov, 2014 [facility] [address] [id number] [place] [address]- 9881 10 Nov, 2014 [facility] [id number] [place] [address]- 9336 September, Anxiety attack 300.01 and Cellulitis 682.9 [facility] [id number] [place] [address], [place] [address]- 2921 September, [facility] [address] [id number] [place] [address]- 3684 September, [facility] [address] [id number] [place] [address], [place] [address]- 6957 September, [facility] [id number] [place] [address]- 8616 Aug, [facility] [id number] [place] [address]- 6459 Aug, [facility] [address] [id number] [place] [address]- 0413 Jul, [facility] [address] [facility] [id number] [place] [address]- 4367 Jul, [facility] [id number] [place] [address]- 1290 Jul, [facility] [address] [facility] [id number] [address]- 8939 May, [facility] [address] [id number] [place] [address]- 0556 May, [facility] [address] [facility] [id number] [place] [address]- 1387 Mar, [facility] [address] [id number] [place] [address]- 8055 Mar, [facility] [address] [id number] [address]- 8525 Mar, [facility] [place] [facility] [address] [id number] [place] [address]- 2846 Mar, [facility] [place] [facility] [address] [id number] [place] [address]- 0932 Mar, [facility] [place] [facility] [address] [id number] [place] [address]- 3231 Mar, [facility] [place] [facility] [address] [id number] [place] [address]- 6026 Mar, [facility] [place] [facility] [address] [id number] [place] [address]- 2139 Feb, [facility] [place] [facility] [address] [id number] [place] [address]- 9502 14 Feb, 2014 [facility] [place] [facility] [address] [id number] [place] [address]- 0172 30 Jan, 2013 [facility] [place] [facility] [address] [id number] [place] [address]- 4676 30 Jan, 2013 [facility] [place] [facility] [address] [id number] [place] [address]- 9708 26 Jan, 2013 [facility] [place] [facility] [address] [id number] [place] [address]- 0980 26 Sep, 2013 [facility] [place] [facility] [address] [id number] [address]- 6360 25 Sep, 2013 [facility] [place] [facility] [address] [id number] [place] [address]- 2544 25 Sep, 2013 [facility] [place] [facility] [address] [id number] [place] [address] 2546 25 Sep, 2013 [facility] [place] [facility] [address] [id number] [place] [address]- 2543 25 Sep, 2013 [facility] [place] [facility] [address] [id number] [place] [address]- 6071 18 Sep, 2013 [facility] [place] [facility] [address] [id number] [place] [address]- 0867 18 Sep, 2013 [facility] [place] [facility] [address] [id number] [place] [address]- 8631 06 Sep, 2013 [facility] [place] [facility] [address] [id number] [place] [address]- 1100 06 Sep, 2013 [facility] [place] [facility] [address] [id number] [place] [address]- 5971 05 Sep, 2013 [facility] [place] [facility] [address] [id number] [place] [address]- 1505 05 Sep, 2013 [facility] [place] [facility] [address] [id number] [place] [address]- 3587 05 Sep, 2013 [facility] [place] [facility] [address] [id number] [place] [address]- 1869 05 Sep, 2013 [facility] [place] [facility] [address] [id number] [place] [address]- 3622 05 Sep, 2013 [facility] [place] [facility] [address] [id number] [place] [address]- 9533 05 Jan, 2013 [facility] [place] [facility] [address] [id number] [place] [address]- 0718 Dec, 2013 [facility] [place] [facility] [address] [id number] [place] [address]- 7915 Dec, 2013 [facility] [place] [facility] [address] [id number] [place] [address]- 8514 Dec, 2013 [facility] [place] [facility] [address] [id number] [place] [address]- 1986 Dec, 2013 [facility] [place] [facility] [address] [id number] [place] [address]- 6432 Dec, 2013 [facility] [place] [facility] [address] [id number] [place] [address]- 3988 Dec, 2013 [facility] [place] [facility] [address] [id number] [place] [address]- 0323 Dec, [facility] [place] [facility] [address] [id number] [place] [address]- 6410 Dec, [facility] [place] [facility] [address] [id number] [place] [address]- 9797 Dec, [facility] [place] [facility] [address] [id number] [place] [address]- 5746 Dec, [facility] [place] [facility] [address] [id number] [place] [address]- 7786 Nov, [facility] [place] [facility] [address] [id number] [place] [address]- 5299 Nov, [facility] [place] [facility] [address] [id number] [place] [address]- 3724 Nov, [facility] [place] [facility] [address] [id number] [place] [address]- 4490 Nov, [facility] [place] [facility] [address] [id number] [place] [address]- 2149 Nov, [facility] [place] [facility] [address] [id number] [place] [address]- 6703 Nov, [facility] [place] [facility] [address] [id number] [place] [address]- 9899 Oct, [facility] [place] [facility] [address] [id number] [place] [address]- 9552 Oct, [facility] [place] [facility] [address] [id number] [place] [address]- 7528 Oct, [facility] [place] [facility] [address] [id number] [place] [address]- 0417 Oct, [facility] [place] [facility] [address] [id number] [place] [address]- 2784 Oct, [facility] [place] [facility] [address] [id number] [place] [address]- 1140 Oct, [facility] [place] [facility] [address] [id number] [place] [address]- 0595 Oct, [facility] [place] [facility] [address] [id number] [place] [address]- 1347 Oct, [facility] [place] [facility] [address] [id number] [place] [address]- 6723 Oct, [facility] [place] [facility] [address] [id number] [place] [address]- 6296 Oct, [facility] [place] [facility] [address] [id number] [place] [address]- 9307 Oct, [facility] [place] [facility] [address] [id number] [place] [address]- 4889 Oct, [facility] [place] [facility] [address] [id number] [place] [address]- 0832 September, [facility] [place] [facility] [address] [id number] [place] [address]- 0630 September, [facility] [place] [facility] [address] [id number] [place] [address]- 5887 September, [facility] [place] [facility] [address] [id number] [place] [address]- 6679 Aug, [facility] [place] [facility] [address] [id number] [place] [address]- 9190 Aug, [facility] [place] [facility] [address] [id number] [place] [address]- 2515 Jul, [facility] [place] [facility] [address] [id number] [place] [address]- 7095 13 Jul, 2013 [facility] [place] [facility] [address] [id number] [place] [address]- 8899 10 Jul, 2013 [facility] [place] [facility] [address] [id number] [place] [address]- 1376 10 Jul, 2013 [facility] [place] [facility] [address] [id number] [place] [address]- 5684 08 Jul, 2013 [facility] [place] [facility] [address] [id number] [place] [address] Jul, [facility] [place] [facility] [address] [id number] [place] [address] Jul, [facility] [place] [facility] [address] [id number] [place] [address] Jul, [facility] [place] [facility] [address] [id number] [place] [address] Jul, [facility] [place] [facility] [address] [id number] [place] [address] Jul, [facility] [place] [facility] [address] [id number] [place] [address] Jun, [facility] [place] [facility] [address] [id number] [place] [address] Jun, [facility] [place] [facility] [address] [id number] [place] [address] Jun, [facility] [place] [facility] [address] [id number] [place] [address] Jun, [facility] [place] [facility] [address] [id number] [place] [address] May, [facility] [place] [facility] [address] [id number] [place] [address] May, [facility] [place] [facility] [address] [id number] [place] [address] Apr, [facility] [place] [facility] [address] [id number] [place] [address] Apr, [facility] [place] [facility] [address] [id number] [place] [address] Apr, [facility] [place] [facility] [address] [id number] [place] [address] Apr, [facility] [place] [facility] [address] [id number] [place] [address] Apr, [facility] [place] [facility] [address] [id number] [place] [address] Apr, [facility] [place] [facility] [address] [id number] [place] [address] Apr, [facility] [place] [facility] [address] [facility] [id number] [place] [address] Apr, [facility] [place] [facility] [address] [id number] [address] Mar, [facility] [place] [facility] [address] [id number] [place] [address] Mar, [facility] [place] [facility] [address] [id number] [place] [address] Mar, [facility] [place] [facility] [address] [id number] [place] [address] Mar, [facility] [place] [facility] [address] [id number] [place] [address] Mar, [facility] [place] [facility] [address] [id number] [place] [address] Mar, [facility] [place] [facility] [address] [id number] [place] [address] Feb, [facility] [place] [facility] [address] [id number] [place] [address] 30 Feb, 2013 [facility] [place] [facility] [address] [id number] [address] 18 Feb, 2013 [facility] [place] [facility] [address] [id number] [place] [address] 18 Feb, 2013 [facility] [place] [facility] [address] [id number] [place] [address] 14 Feb, 2013 [facility] [place] [facility] [address] [id number] [place] [address] 14 Feb, 2013 [facility] [place] [facility] [address] [id number] [place] [address] 04 Feb, 2013 [facility] [facility] [address] [id number] [place] [address] 27 Jan, 2013 [facility] [address] [id number] [place] [address] 26 Jan, 2013 [facility] [address] [id number] [place] [address] Jan, [facility] [address] [id number] [place] [address] 05 Jan, 2013 [facility] [address] [id number] [place] [address] Dec, [facility] [address] [id number] [place] [address] Dec, [facility] [address] [id number] [place] [address] 8311 Dec, [facility] [address] [id number] [place] [address] 9127 Nov, [facility] [address] [id number] [place] [address] Nov, [facility] [address] [id number] [place] [address] 57[address] Nov, [facility] [address] [id number] [place] [address]- 5936 Nov, [facility] [address] [id number] [place] [address]- 1209 Nov, [facility] [place] [facility] [address] [id number] [place] [address]- 9877 Nov, [facility] [place] [facility] [address] [id number] [place] [address]- 1864 Oct, [facility] [place] [facility] [address] [id number] [place] [address]- 3459 Oct, [facility] [place] [facility] [address] [id number] [place] [address]- 6481 Oct, [facility] [address] [id number] [place] [address]- 2418 Oct, [facility] [address] [id number] [place] [address]- 6429 Oct, [facility] [place] [facility] [address] [id number] [place] [address]- 0700 Oct, [facility] [address] [id number] [place] [address]- 7340 September, [facility] [address] [id number] [place] [address]- 9380 September, [facility] [address] [id number] [place] [address]- 3287 September, [facility] [address] [id number] [place] [address]- 1541 September, [facility] [address] [id number] [place] [address]- 1897 Aug, [facility] [address] [id number] [place] [address]- 8857 Aug, [facility] [place] [facility] [address] [id number] [place] [address]- 6408 Jul, [facility] [place] [facility] [address] [id number] [address] Jul, [facility] [place] [facility] [address] [id number] [place] [address]- 8183 18 Jul, 2012 [facility] [place] [facility] [address] [id number] [place] [address]- 3577 15 Jul, 2012 [facility] [place] [facility] [address] [id number] [place] [address] 13 Jul, 2012 [facility] [place] [facility] [address] [id number] [place] [address]- 9[address] Jul, [facility] [address] [id number] [place] [address]- 4816 20 Jun, 2012 [facility] [address] [id number] [place] [address]- 9746 13 Jun, 2012 [facility] [address] [facility] [id number] [place] [address]- 7176 May, [facility] [address] [id number] [place] [address]- 4859 May, [facility] [address] [id number] [place] [address] Apr, [facility] [address] [id number] [place] [address]- 1559 Apr, [facility] [address] [facility] [id number] [place] [address]- 0926 Apr, [facility] [address] [id number] [place] [address]- 7915 Apr, [facility] [address] [id number] [place] [address]- 1229 Apr, [facility] [address] [facility] [id number] [place] [address]- 0316 Apr, [facility] [address] [id number] [place] [address]- 4874 Apr, [facility] [address] [id number] [place] [address]- 5889 Apr, [facility] [address] [id number] [place] [address] Apr, [facility] [address] [facility] [id number] [place] [address]- 0207 07 Apr, 2012 [facility] [address] [facility] [id number] [place] [address]- 7604 07 Apr, 2012 [facility] [place] [facility] [address] [id number] [place] [address]- 9695 Apr, [facility] [place] [facility] [address] [id number] [place] [address]- 2111 Apr, [facility] [place] [facility] [address] [id number] [place] [address]- 6696 Apr, [facility] [place] [facility] [address] [id number] [place] [address]- 1142 Apr, [facility] [place] [facility] [address] [id number] [place] [address]- 1331 Apr, [facility] [place] [facility] [address] [id number] [place] [address]- 4576 Mar, [facility] [place] [facility] [address] [id number] [place] [address]- 1603 Mar, [facility] [place] [facility] [address] [id number] [place] [address]- 0670 Mar, [facility] [place] [facility] [address] [id number] [place] [address]- 4464 Mar, [facility] [place] [facility] [address] [id number] [place] [address]- 6010 Mar, [facility] [place] [facility] [address] [id number] [place] [address]- 1720 Mar, [facility] [place] [facility] [address] [id number] [place] [address]- 6801 Mar, [facility] [place] [facility] [address] [id number] [place] [address]- 4058 Mar, [facility] [place] [facility] [address] [id number] [place] [address]- 1285 Mar, [facility] [place] [facility] [address] [id number] [place] [address]- 5991 Mar, [facility] [place] [facility] [address] [id number] [place] [address]- 1826 Feb, [facility] [place] [facility] [address] [id number] [place] [address]- 2312 Feb, [facility] [place] [facility] [address] [id number] [place] [address]- 8477 Feb, [facility] [place] [facility] [address] [id number] [place] [address]- 3617 Feb, [facility] [place] [facility] [address] [id number] [place] [address]- 3709 Feb, [facility] [place] [facility] [address] [id number] [place] [address]- 3056 Feb, [facility] [place] [facility] [address] [id number] [place] [address]- 4381 Jan, [facility] [place] [facility] [address] [id number] [place] [address]- 4583 Dec, [facility] [place] [facility] [address] [id number] [place] [address]- 4370 Dec, [facility] [place] [facility] [address] [id number] [place] [address]- 4724 Dec, [facility] [place] [facility] [address] [id number] [place] [address]- 2409 Dec, [facility] [place] [facility] [address] [id number] [place] [address]- 0674 Nov, [facility] [place] [facility] [address] [id number] [place] [address]- 5097 Nov, [facility] [place] [facility] [address] [id number] [place] [address]- 3170 Nov, [facility] [place] [facility] [address] [id number] [place] [address]- 8905 Nov, [facility] [place] [facility] [address] [id number] [place] [address]- 2970 Oct, [facility] [place] [facility] [address] [id number] [place] [address]- 7309 Oct, [facility] [address] [id number] [place] [address]- 4808 Oct, [facility] [place] [facility] [address] [id number] [place] [address]- 5092 Oct, [facility] [address] [id number] [place] [address]- 5221 Oct, [facility] [place] [facility] [address] [id number] [place] [address]- 7153 September, [facility] [address] [id number] [place] [address]- 8076 September, [facility] [place] [facility] [address] [id number] [place] [address]- 0842 September, [facility] [address] [id number] [place] [address]- 5647 September, [facility] [address] [id number] [place] [address]- 6758 September, [facility] [place] [facility] [address] [id number] [place] [address]- 2389 September, [facility] [address] [id number] [place] [address]- 0162 September, [facility] [place] [facility] [address] [id number] [place] [address]- 1953 September, [facility] [place] [facility] [address] [id number] [place] [address]- 8095 Aug, [facility] [place] [facility] [address] [id number] [place] [address]- 1651 Aug, [facility] [place] [facility] [address] [id number] [place] [address]- 7037 Aug, [facility] [place] [facility] [address] [id number] [place] [address]- 4255 Aug, [facility] [place] [facility] [address] [id number] [place] [address]- 5856 18 Aug, 2011 [facility] [address] [id number] [place] [address]- 3904 17 Aug, 2011 [facility] [address] [id number] [place] [address]- 5432 13 Aug, 2011 [facility] [address] [id number] [place] [address]- 4946 12 Aug, 2011 [facility] [address] [id number] [place] [address]- 4199 10 Aug, 2011 [facility] [address] [id number] [place] [address]- 5138 09 Aug, 2011 [facility] [address] [id number] [place] [address]- 9837 Aug, [facility] [address] [id number] [place] [address]- 4932 Aug, [facility] [address] [id number] [place] [address]- 6827 29 Jul, 2011 [facility] [address] [id number] [place] [address]- 8264 28 Jul, 2011 [facility] [address] [id number] [place] [address]- 2396 27 Jul, 2011 [facility] [place] [facility] [address] [id number] [place] [address]- 4242 23 Jul, 2011 [facility] [place] [facility] [address] [id number] [place] [address]- 5231 21 Jul, 2011 [facility] [place] [facility] [address] [id number] [place] [address]- 6033 21 Jul, 2011 [facility] [place] [facility] [address] [id number] [place] [address]- 2045 14 Jul, 2011 [facility] [place] [facility] [address] [id number] [place] [address]- 2546 Jul, [facility] [address] [id number] [place] [address]- 6494 Jul, [facility] [place] [facility] [address] [id number] [place] [address]- 4916 24 Jun, 2011 [facility] [place] [facility] [address] [id number] [place] [address]- 0886 Jun, [facility] [place] [facility] [address] [id number] [place] [address]- 6469 Jun, [facility] [place] [facility] [address] [id number] [place] [address]- 0296 14 Jun, 2011 [facility] [place] [facility] [address] [id number] [place] [address]- 2396 Jun, [facility] [address] [id number] [place] [address]- 8283 Jun, [facility] [place] [facility] [address] [id number] [place] [address]- 1508 Jun, [facility] [place] [facility] [address] [id number] [place] [address]- 7028 May, [facility] [address] [id number] [place] [address]- 6295 May, [facility] [address] [id number] [place] [address]- 8095 May, [facility] [place] [facility] [address] [id number] [place] [address]- 1144 May, [facility] [place] [facility] [address] [id number] [place] [address]- 9814 May, [facility] [place] [facility] [address] [id number] [place] [address]- 9329 May, [facility] [place] [facility] [address] [id number] [place] [address]- 2770 May, [facility] [place] [facility] [address] [id number] [place] [address]- 1214 Apr, [facility] [place] [facility] [address] [id number] [place] [address]- 1459 Apr, [facility] [place] [facility] [address] [id number] [place] [address]- 5589 Apr, [facility] [place] [facility] [address] [id number] [place] [address]- 7718 Apr, [facility] [place] [facility] [address] [id number] [place] [address]- 1964 Apr, [facility] [place] [facility] [address] [id number] [place] [address]- 0252 Apr, [facility] [place] [facility] [address] [id number] [place] [address]- 8644 Apr, [facility] [place] [facility] [address] [id number] [place] [address]- 8471 Apr, [facility] [place] [facility] [address] [id number] [place] [address]- 3071 Apr, [facility] [place] [facility] [address] [id number] [place] [address]- 7316 Mar, [facility] [place] [facility] [address] [id number] [place] [address]- 2611 Mar, [facility] [place] [facility] [address] [id number] [place] [address]- 4858 Mar, [facility] [place] [facility] [address] [id number] [place] [address]- 9431 Mar, [facility] [place] [facility] [address] [id number] [place] [address]- 8143 Mar, [facility] [place] [facility] [address] [id number] [place] [address]- 6540 Feb, [facility] [place] [facility] [address] [id number] [place] [address]- 2526 Feb, [facility] [address] [id number] [place] [address]- 4187 Feb, [facility] [place] [facility] [address] [id number] [place] [address]- 5546 Dec, [facility] [place] [facility] [address] [id number] [place] [address] 2546 Nov, [facility] [place] [facility] [address] [id number] [place] [address]- 5693 Apr, [facility] [place] [facility] [address] [id number] [place] [address]- 5287 Apr, [facility] [place] [facility] [address] [id number] [place] [address]- 1431 16 Apr, 2010 [facility] [place] [facility] [address] [id number] [place] [address]- 6895 Apr, [facility] [place] [facility] [address] [id number] [place] [address]- 3282 Apr, [facility] [place] [facility] [address] [id number] [place] [address]- 1746 Apr, [facility] [place] [facility] [address] [id number] [place] [address]- 1218 Apr, [facility] [place] [facility] [address] [id number] [place] [address]- 4207 Apr, [facility] [place] [facility] [address] [id number] [place] [address]- 0787 Mar, [facility] [place] [facility] [address] [id number] [place] [address]- 0985 Mar, [facility] [place] [facility] [address] [id number] [place] [address]- 2299 Mar, [facility] [place] [facility] [address] [id number] [place] [address]- 7635 Mar, [facility] [place] [facility] [address] [facility] [id number] [place] [address]- 6065 Mar, [facility] [address] [id number] [address]- 0948 Mar, [facility] [address] [id number] [address]- 8262 Mar, [facility] [address] [id number] [address]- 3991 Mar, [facility] [address] [id number] [address]- 9447 Mar, [facility] [address] [id number] [address]- 7052 Mar, IMMUNIZATIONS No Known Immunizations SOCIAL HISTORY Never Assessed REASON FOR VISIT Patient Concerns PLAN OF CARE VITAL SIGNS MEDICATIONS Unknown [...]
--- OUTSIDE RECORDS SUMMARY | 2018-04-22 23:21 | XMS REPORT ---
Author Author MARY FRAGOSO [facility] Address [address] [place] [address] Care Team Providers Care Social Services Analyst Name Role Phone MARY FRAGOSO Unavailable PROBLEMS Type Condition ICD9-CM Code ZNE65-DB Code Onset Dates Condition Status SNOMED Code Problem Severe sleep apnea G47.30 Active 77059383 Problem Chronic kidney disease, stage 3 (moderate) N18.3 Active 558261920 Problem Decreased diffusion capacity R94.2 Active 22859692 Problem Anemia in other chronic diseases classified elsewhere D63.8 Active 017073537 Problem Stenosis of carotid artery, unspecified laterality I65.29 Active 39239722 Problem Type 2 diabetes mellitus with diabetic polyneuropathy E11.42 Active 566022935 Problem Trochanteric bursitis of left hip M70.62 Active [id number] Problem Diarrhea, unspecified type R19.7 Active 18376909 Problem Anxiety about health F41.8 Active 704354960 Problem Transient cerebral ischemia, unspecified type G45.9 Active 995090304 Problem Aortic valve sclerosis I35.8 Active 09780684 Problem Generalized osteoarthritis M15.9 Active 298412677 Problem Coronary artery disease involving [place] coronary artery of [place] heart, angina presence unspecified I25.10 Active 9491061164762 Problem Hypoxemia R09.02 Active 514333778 Problem Presence of IVC filter Z95.828 Active 112907477 Problem Port catheter in place Z95.828 Active 463651809 Problem BMI 50.0-59.9, adult Z68.43 Active 379844966 Problem Mixed hyperlipidemia E78.2 Active 867835409 Problem Type 2 diabetes mellitus with hyperglycemia E11.65 Active 68922907 Problem Essential hypertension I10 Active 14885357 Problem Iron deficiency anemia, unspecified iron deficiency anemia type D50.9 Active 55767105 Problem Type 2 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 Active 70404222 Problem Renal osteodystrophy N25.0 Active 27567904 Problem Type 2 diabetes mellitus with foot ulcer E11.621 Active 747624113 Problem 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 Active 2319014 ALLERGIES No Information ENCOUNTERS Encounter Location Date Diagnosis [facility] [id number] [place] [address] 40752- 2998 08 Oct, 2017 [facility] [id number] [place] [address] 62488- 2968 Oct, [facility] [address] 36571 -2591 September, BMI 50.0-59.9, adult Z68.43 [facility] [address] 73613- 7531 September, [facility] [address] 42575- 9653 September, [facility] [address] 41694- 4101 Aug, Type 2 diabetes mellitus with foot ulcer E11.621 ; Transient cerebral ischemia, unspecified type G45.9 ; Essential hypertension I10 ; Mixed hyperlipidemia E78.2 and BMI 50.0-59.9, adult Z68.43 [facility] [id number] [place] [address] 54688- 2684 17 Aug, 2017 [facility] [id number] [place] [address] 15909- 2158 14 Jul, 2017 Anxiety about health F41.8 and Mixed hyperlipidemia E78.2 [facility] [id number] [place] [address] 52774- 0568 13 Jul, 2017 [facility] [address] 01211- 8515 Jun, [facility] [id number] [place] [address] 36947- 8390 Jun, Type 2 diabetes mellitus with hyperglycemia E11.65 ; Type 2 diabetes mellitus with foot ulcer E11.621 ; Port catheter in place Z95.828 ; 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 ; Contact with and (suspected) exposure to potentially hazardous body fluids Z77.21 and BMI 50.0-59.9, adult Z68.43 [facility] [id number] [place] [address] 35386- 4259 May, [facility] [address] 35634- 6495 May, Open wound of right great toe, subsequent encounter S91.101D [facility] [address] 54739- 5577 May, [facility] [address] 15619- 1140 Apr, [facility] [address] 00607- 9312 15 Apr, 2017 [facility] [address] 19958- 1683 14 Apr, 2017 [facility] [address] 92148- 7444 14 Apr, 2017 Type 2 diabetes mellitus with diabetic polyneuropathy E11.42 [facility] [id number] [place] [address] 55546- 6748 13 Apr, 2017 Open wound of right great toe, subsequent encounter S91.101D [facility] [address] 07435- 4113 08 Apr, 2017 Open wound of right great toe, subsequent encounter S91.101D ; Breast pain, left N64.4 ; Breast cancer screening Z12.31 ; Type 2 diabetes mellitus with foot ulcer E11.621 ; Essential hypertension I10 and BMI 50.0-59.9, adult Z68.43 [facility] [id number] [place] [address] 59584- 4171 Mar, Encounter for immunization Z23 [facility] [address] 49719- 4669 Mar, [facility] [id number] [place] [address] 92940- 8705 Mar, [facility] [address] 14339- 8029 Mar, Type 2 diabetes mellitus with diabetic polyneuropathy E11.42 ; Type 2 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 ; Type 2 diabetes mellitus with foot ulcer E11.621 ; Essential hypertension I10 ; Hypoxemia R09.02 and Generalized osteoarthritis M15.9 [facility] [id number] [place] [address] 38271- 9506 Mar, Chronic kidney disease, stage 3 (moderate) N18.3 ; Acute cystitis without hematuria N30.00 ; Essential hypertension I10 ; Muscle spasms of neck M62.838 ; Type 2 diabetes mellitus with diabetic polyneuropathy E11.42 and BMI 50.0-59.9, adult Z68.43 [facility] [id number] [place] [address] 77526- 0669 Feb, [facility] [id number] [place] [address] 37192 -5901 Feb, [facility] [id number] [place] [address] 78757- 0075 Feb, [facility] [id number] [place] [address] 34819- 6267 Feb, [facility] [id number] [place] [address] 39616- 0054 Feb, [facility] [id number] [place] [address] 74082- 4832 Feb, [facility] [address] 98766- 2122 Feb, Mixed hyperlipidemia E78.2 [facility] [id number] [place] [address] 45305- 3253 Feb, [facility] [address] [address] 9175 Jan, [facility] [id number] [place] [address] 98243- 9004 Jan, Generalized osteoarthritis M15.9 [facility] [id number] [place] [address] 98204- 3777 Oct, [facility] [id number] [place] [address] 35011- 8410 Jul, [facility] [id number] [place] [address] 78157- 4089 Jul, [facility] [id number] [place] [address] 08552- 2491 Jul, Type 2 diabetes mellitus with hyperglycemia E11.65 ; Chronic kidney disease, stage 3 (moderate) N18.3 ; Type 2 diabetes mellitus with foot ulcer E11.621 ; Type 2 diabetes mellitus with diabetic polyneuropathy E11.42 ; Generalized osteoarthritis M15.9 ; Trochanteric bursitis of left hip M70.62 and Tinea pedis of both feet B35.3 [facility] [id number] [place] [address] 42924- 8843 Jun, [facility] [id number] [place] [address] 59087- 5947 Apr, [facility] [id number] [place] [address] 33598- 1455 Apr, [facility] [id number] [place] [address] 35318- 9156 Mar, [facility] [id number] [place] [address] 89478- 1360 Feb, Encounter for immunization Z23 [facility] [id number] [place] [address] 03836- 2136 Feb, [facility] [id number] [place] [address] 38498- 2246 Feb, Type 2 diabetes mellitus with hyperglycemia E11.65 ; Encounter for immunization Z23 ; Diarrhea, unspecified type R19.7 ; Essential hypertension I10 ; Mixed hyperlipidemia E78.2 ; Hypoxia R09.02 ; 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 and Type 2 diabetes mellitus with foot ulcer E11.621 [facility] [id number] [place] [address] 98052- 5851 Jan, [facility] [address] 00479- 7955 19 Jan, 2016 Type 2 diabetes mellitus with hyperglycemia E11.65 and Pneumonia due to infectious organism, unspecified laterality, unspecified part of lung J18.9 [facility] [id number] [place] [address] 03983- 2775 19 Jan, 2016 [facility] [id number] [place] [address] 06934- 4192 Jan, [facility] [id number] [place] [address] 89378- 2899 Oct, Type 2 diabetes mellitus with hyperglycemia E11.65 ; Generalized osteoarthritis M15.9 and Chronic prescription opiate use Z79.891 [facility] [id number] [place] [address] 26923- 2742 September, [facility] [id number] [place] [address] 66483- 9137 Aug, [facility] [id number] [place] [address] 86089- 4171 Aug, [facility] [id number] [place] [address] 50452- 6874 Aug, [facility] [id number] [place] [address] 05797- 7938 Aug, [facility] [id number] [place] [address] 86959- 9382 Jun, [facility] [address] 00687- 1294 Jun, Type 2 diabetes mellitus with hyperglycemia E11.65 ; Mixed hyperlipidemia E78.2 ; Vaginal itching L29.8 ; Neck muscle spasm M62.838 and Skin abrasion T14.8 [facility] [id number] [place] [address] 64013- 4587 Apr, [address] 64788- 1399 Apr, [facility] [id number] [place] [address] 28308- 9197 Mar, [facility] [address] 28724- 9783 Feb, [facility] [id number] [place] [address] 41781- 0604 Feb, Type 2 diabetes mellitus with hyperglycemia E11.65 ; Type 2 diabetes mellitus with foot ulcer E11.621 ; Type 2 diabetes mellitus with diabetic polyneuropathy E11.42 and Encounter for immunization Z23 [id number] [place] [address] 96292- 3003 Jan, Hypertension 401.9 ; Uncontrolled type 2 diabetes mellitus 250.02 ; Right shoulder pain 719.41 and Ulcer of heel and midfoot 707.14 [id number] [place] [address] 20908- 7644 Dec, Diabetes with other specified manifestations, type II or unspecified type, not stated as uncontrolled 250.80 ; Ulcer of heel and midfoot 707.14 ; Hypertension 401.9 ; Hip pain, left 719.45 and Acute anxiety 300.00 [address] [id number] [place] [address] 80297- 2727 Nov, [facility] [id number] [place] [address] 79458- 6572 Nov, [facility] [id number] [place] [address] 90808- 5697 September, Anxiety attack 300.01 and Cellulitis 682.9 [facility] [address] [id number] [place] [address]- 7994 September, [facility] [address] [id number] [place] 5066 September, [facility] [address] [id number] [place] [address]- 1546 September, [facility] [address] [id number] [place] [address]- 5640 Aug, [facility] [address] [id number] [place] [address]- 6515 Aug, [facility] [address] [id number] [place] [address]- 1132 Jul, [facility] [address] [id number] [place] [address]- 1027 Jul, [facility] [address] [id number] [place] [address]- 5284 Jul, [facility] [address] [id number] [place] [address]- 0487 May, [facility] [address] [id number] [place] [address]- 7262 May, [facility] [address] [id number] [address]- 8555 Mar, [facility] [place] [facility] [address] [id number], [place] [address]- 3836 Mar, [facility] [place] [facility] [address] [id number] [place] [address]- 8883 Mar, [facility] [place] [facility] [address] [id number], [place] [address]- 9689 Mar, [facility] [place] [facility] [address] [id number] [place]- 4258 Mar, [facility] [place] [facility] [address] [id number] [place] [address]- 9477 07 Mar, 2014 [facility] [place] [facility] [address] [id number] [place] [address]- 8996 07 Mar, 2014 [facility] [place] [facility] [address] [id number] [place] [address]- 4476 14 Feb, 2014 [facility] [place] [facility] [address] [id number] [place] [address]- 5626 14 Feb, 2014 [facility] [place] [facility] [address] [id number] [place] [address]- 2541 30 Jan, 2013 [facility] [place] [facility] [address] [id number] [place] [address]- 7046 30 Jan, 2013 [facility] [place] [facility] [address] [id number] [place] [address]- 1349 26 Jan, 2013 [facility] [place] [facility] [address] [id number] [place] [address]- 2541 26 Jan, 2013 [facility] [place] [facility] [address] [id number] [place] [address]- 2549 25 Sep, 2013 [facility] [place] [facility] [address] [id number] [place] [address]- 2542 25 Jan, 2013 [facility] [place] [facility] [address] [id number] [place] [address]- 2544 25 Sep, 2013 [facility] [place] [facility] [address] [id number] [place] [address] 2542 25 Sep, 2013 [facility] [place] [facility] [address] [id number] [place] [address] 2548 18 Sep, 2013 [facility] [place] [facility] [address] [id number] [place] [address] 2540 18 Sep, 2013 [facility] [place] [facility] [address] [id number] [place] [address]- 2546 06 Sep, 2013 [facility] [place] [facility] [address] [id number] [place]- 6205 06 Sep, 2013 [facility] [place] [facility] [address] [id number] [place] [address]- 9432 Sep, 2013 [facility] [place] [facility] [address] [id number] [place] [address]- 0538 Jan, 2013 [facility] [place] [facility] [address] [id number] [place] [address]- 3121 Sep, 2013 [facility] [place] [facility] [address] [id number] [place] [address]- 6305 Jan, 2013 [facility] [place] [facility] [address] [id number] [place] [address]- 0400 Jan, 2013 [facility] [place] [facility] [address] [id number] [place] [address]- 4970 Jan, 2013 [facility] [place] [facility] [address] [id number] [place] [address]- 9947 Dec, 2013 [facility] [place] [facility] [address] [id number] [place] [address]- 8049 Dec, 2013 [facility] [place] [facility] [address] [id number] [place] [address]- 7195 Dec, [facility] [place] [facility] [address] [id number] [place] [address]- 3674 Dec, [facility] [place] [facility] [address] [id number], [place] [address]- 1614 Dec, 2013 [facility] [place] [facility] [address] [id number], [place] [address]- 7136 Dec, [facility] [place] [facility] [address] [id number] [place] [address]- 6897 Dec, [facility] [place] [facility] [address] [id number] [place] [address]- 0360 Dec, [facility] [place] [facility] [address] [id number] [place] [address]- 5275 Dec, [facility] [place] [facility] [address] [id number], [place] [address]- 1767 Dec, [facility] [place] [facility] [address] [id number] [place] [address]- 2827 Nov, [facility] [place] [facility] [address] [id number] [place] [address]- 1311 Nov, [facility] [place] [facility] [address] [id number] [place] [address]- 2719 Nov, [facility] [place] [facility] [address] [id number] [place] [address]- 8660 Nov, [facility] [place] [facility] [address] [id number] [place] [address]- 3900 Nov, [facility] [place] [facility] [address] [id number] [place] [address]- 9859 Nov, [facility] [place] [facility] [address] [id number] [place] [address]- 3509 Oct, [facility] [place] [facility] [address] [id number] [place] [address]- 0672 Oct, [facility] [place] [facility] [address] [id number] [place] [address]- 6928 Oct, [facility] [place] [facility] [address] [id number] [place] [address]- 3786 Oct, [facility] [place] [facility] [address] [id number] [place] [address]- 9149 Oct, [facility] [place] [facility] [address] [id number] [place] [address]- 1496 Oct, [facility] [place] [facility] [address] [id number] [place] [address]- 3693 Oct, [facility] [place] [facility] [address] [id number] [place] [address]- 6701 Oct, [facility] [place] [facility] [address] [id number] [place] [address]- 0100 Oct, [facility] [place] [facility] [address] [id number] [place] [address]- 6008 Oct, [facility] [place] [facility] [address] [id number] [place] [address]- 8811 Oct, [facility] [place] [facility] [address] [id number] [place] [address]- 4266 Oct, [facility] [place] [facility] [address] [id number] [place] [address]- 4651 September, [facility] [place] [facility] [address] [id number] [place] [address]- 5066 September, [facility] [place] [facility] [address] [id number] [place] [address]- 8225 September, [facility] [place] [facility] [address] [id number] [place] [address]- 1227 Aug, [facility] [place] [facility] [address] [id number] [place] [address]- 7790 Aug, [facility] [place] [facility] [address] [id number] [place] [address]- 7596 Jul, [facility] [place] [facility] [address] [id number] [place] [address]- 8289 Jul, [facility] [place] [facility] [address] [id number] [place] [address]- 3080 Jul, [facility] [place] [facility] [address] [id number] [place] [address]- 5814 Jul, [facility] [place] [facility] [address] [id number] [place] [address]- 6066 Jul, [facility] [place] [facility] [address] [id number] [place] [address]- 6287 Jul, [facility] [place] [facility] [address] [id number] [place] [address]- 9759 03 Jul, 2013 [facility] [place] [facility] [address] [id number] [place] [address]- 1971 Jul, [facility] [place] [facility] [address] [id number] [place] 2876 Jul, [facility] [place] [facility] [address] [id number] [place] [address]- 2620 Jul, [facility] [place] [facility] [address] [id number] [place] [address]- 1631 Jun, [facility] [place] [facility] [address] [id number] [place] [address]- 7878 Jun, [facility] [place] [facility] [address] [id number] [place] [address]- 8963 Jun, [facility] [place] [facility] [address] [id number] [place] [address]- 2960 Jun, [facility] [place] [facility] [address] [id number] [place] [address]- 5258 May, [facility] [place] [facility] [address] [id number] [place] [address]- 9231 May, [facility] [place] [facility] [address] [id number] [place] [address]- 8566 Apr, [facility] [place] [facility] [address] [id number] [place] [address]- 0398 Apr, [facility] [place] [facility] [address] [id number] [place] [address]- 4627 Apr, [facility] [place] [facility] [address] [id number] [place] [address]- 1678 Apr, [facility] [place] [facility] [address] [id number] [place] 3193 Apr, [facility] [place] [facility] [address] [id number] [place] [address]- 9279 Apr, [facility] [place] [facility] [address] [id number] [place] [address]- 1675 Apr, [facility] [place] [facility] [address] [id number] [place] [address]- 1025 Apr, [facility] [address] [id number] [place] [address]- 3130 Mar, [facility] [place] [facility] [address] [id number] [place] [address]- 0075 Mar, [facility] [place] [facility] [address] [id number] [place] [address]- 3668 Mar, [facility] [place] [facility] [address] [id number] [place] [address]- 1131 Mar, [facility] [place] [facility] [address] [id number] [place] [address]- 4028 Mar, [facility] [place] [facility] [address] [id number] [place] [address]- 0300 Mar, [facility] [place] [facility] [address] [id number] [place] [address]- 9863 Feb, [facility] [address] [id number] [place] [address] 30 Feb, 2013 [facility] [place] [facility] [address] [id number] [place] [address] Feb, [facility] [address] [id number] [place] [address] Feb, [facility] [place] [facility] [address] [id number] [place] [address] 14 Feb, 2013 [facility] [place] [facility] [address] [id number] [place] [address] Feb, [facility] [place] [facility] [address] [id number] [place] [address] Feb, [facility] [place] [facility] [address] [id number] [place] [address] 27 Jan, 2013 [facility] [place] [facility] [address] [id number] [place] [address] Jan, [facility] [place] [facility] [address] [id number] [place] [address] Jan, [facility] [place] [facility] [address] [id number] [place] [address] Jan, [facility] [place] [facility] [address] [id number] [place] [address] Dec, [facility] [place] [facility] [address] [id number] [place] [address] Dec, [facility] [place] [facility] [address] [id number] [place] [address] Dec, [facility] [place] [facility] [address] [id number] [place] [address] Nov, [facility] [place] [facility] [address] [id number] [place] [address] Nov, [facility] [place] [facility] [address] [id number] [place] [address]697 Nov, [facility] [place] [facility] [address] [id number] [place] [address] Nov, [facility] [place] [facility] [address] [id number] [place] [address] Nov, [facility] [place] [facility] [address] [id number] [place] [address] Nov, [facility] [place] [facility] [address] [id number], [place] [address] Oct, [facility] [place] [facility] [address] [id number] [place] [address] Oct, [facility] [place] [facility] [address] [id number] [place] [address] Oct, [facility] [place] [facility] [address] [id number] [place] [address] Oct, [facility] [place] [facility] [address] [id number], [place] [address] Oct, [facility] [address] [id number] [place] [address] Oct, [facility] [address] [id number] [place] [address] September, [facility] [address] [id number] [place] [address] September, [facility] [address] [id number] [place] [address] September, [facility] [address] [id number] [place] [address] September, [facility] [address] [id number] [place] [address] Aug, [facility] [address] [id number] [place] [address] Aug, [facility] [address] [id number] [place] [address] Jul, [facility] [address] [id number] [place] [address] Jul, [facility] [address] [facility] [id number] [place] [address] Jul, [facility] [address] [id number] [place] [address] Jul, [facility] [address] [address] [id number], [place] [address] Jul, [facility] [address] [id number] [place] [address] 08 Jul, 2012 [facility] [address] [facility] [id number] [place] [address] 2019 20 Jun, 2012 [facility] [address] [facility] [id number], [place] [address] Jun, [facility] [address] [id number] [place] [address] 17 May, 2012 [facility] [address] [id number] [place] [address] May, [facility] [place] [facility] [address] [id number] [place] [address] 18 Apr, 2012 [facility] [place] [facility] [address] [id number] [place] [address] 18 Apr, 2012 [facility] [address] [id number] [place] [address] Apr, [facility] [place] [facility] [address] [id number] [place] [address] 2756 Apr, [facility] [address] [id number] [place] [address] Apr, [facility] [address] [id number] [place] [address] 9186 Apr, [facility] [address] [id number] [place] [address] 18[address] Apr, [facility] [address] [id number] [place] [address] 7[address] Apr, [facility] [address] [id number] [place] [address] Apr, [facility] [place] [facility] [address] [id number] [place] [address] 3730 Apr, [facility] [place] [facility] [address] [id number] [place] [address] 5360 Apr, [facility] [place] [facility] [address] [id number] [place] [address] 2966 Apr, [facility] [place] [facility] [address] [id number] [place] [address] 6307 05 Apr, 2012 [facility] [place] [facility] [address] [id number] [place] [address] Apr, [facility] [place] [facility] [address] [id number] [place] [address] 4756 Apr, [facility] [place] [facility] [address] [id number] [place] [address]- 6685 Apr, [facility] [place] [facility] [address] [facility] [id number] [place] [address] 6747 Mar, [facility] [place] [facility] [address] [id number] [place] [address]- 6581 Mar, [facility] [place] [facility] [address] [id number] [place] [address]- 3183 Mar, [facility] [place] [facility] [address] [facility] [id number] [place] [address]- 5828 Mar, [facility] [place] [facility] [address] [facility] [id number] [place] [address] 4039 Mar, [facility] [place] [facility] [address] [id number], [place] [address] Mar, [facility] [place] [facility] [address] [id number], [place] [address] 0[address] Mar, [facility] [place] [facility] [address] [facility] [id number], [place] [address]- [address]47 Mar, [facility] [place] [facility] [address] [id number], [place] [address] Mar, [facility] [place] [facility] [address] [id number], [place] [address] Mar, [facility] [place] [facility] [address] [id number], [place] [address] 6[address] Feb, [facility] [place] [facility] [address] [facility] [id number], [place] [address]- 8471 Feb, [facility] [place] [facility] [address] [facility] [id number], [place] [address]- 5524 Feb, [facility] [place] [facility] [address] [id number] [place] [address]- 6417 Feb, [facility] [address] [id number] [place] [address]- 5911 Feb, [facility] [place] [facility] [address] [id number] [place] [address] Feb, [facility] [address] [id number] [place] [address]- [address] Jan, [facility] [place] [facility] [address] [id number] [place] [address]- 3306 Dec, [facility] [place] [facility] [address] [id number] [place] [address]- 4663 Dec, [facility] [place] [facility] [address] [id number] [place] [address]- 3806 Dec, [facility] [address] [id number] [place] [address]- 7394 Dec, [facility] [address] [id number] [place] [address]- 0082 Nov, [facility] [place] [facility] [address] [id number] [place] [address]- 5749 Nov, [facility] [address] [id number] [place] [address]- 8436 Nov, [facility] [place] [facility] [address] [id number] [place] [address]- 2658 Nov, [facility] [place] [facility] [address] [id number] [place] [address]- 7155 Oct, [facility] [place] [facility] [address] [id number] [place] [address]- 9550 Oct, [facility] [place] [facility] [address] [id number] [place] [address]- 5029 Oct, [facility] [place] [facility] [address] [id number] [place] [address]- 6738 Oct, [facility] [address] [id number] [place] [address]- 8336 Oct, [facility] [address] [id number] [place] [address]- 8508 September, [facility] [address] [id number] [place] [address] September, [facility] [place] [facility] [address] [id number] [place] [address]- 9429 September, [facility] [address] [id number] [place] [address]- 6996 September, [facility] [address] [id number] [place] [address]- 0420 September, [facility] [address] [id number] [place] [address]- 2216 September, [facility] [address] [id number] [place] [address]- 5802 September, [facility] [address] [id number] [place] [address]- 7777 September, [facility] [address] [id number] [place] [address]- 8620 Aug, [facility] [place] [facility] [address] [id number] [place] [address]- 0973 Aug, [facility] [place] [facility] [address] [id number], [place] [address]- 8521 Aug, [facility] [place] [facility] [address] [id number] [place] [address]- 7220 Aug, [facility] [place] [facility] [address] [id number] [place] [address]- 6759 Aug, [facility] [place] [facility] [address] [id number] [place] [address] Aug, [facility] [place] [facility] [address] [id number] [place] [address]- 0543 13 Aug, 2011 [facility] [address] [id number] [place] [address]- 9360 12 Aug, 2011 [facility] [place] [facility] [address] [id number] [place] [address]- 2206 10 Aug, 2011 [facility] [place] [facility] [address] [id number] [place] [address]- 0836 09 Aug, 2011 [facility] [place] [facility] [address] [id number] [place] [address]- 6175 Aug, [facility] [place] [facility] [address] [id number] [place] [address]- 2765 Aug, [facility] [place] [facility] [address] [id number] [place] [address]- 1912 29 Jul, 2011 [facility] [place] [facility] [address] [id number] [place] [address]- 1867 28 Jul, 2011 [facility] [place] [facility] [address] [id number] [place] [address]- 2005 27 Jul, 2011 [facility] [place] [facility] [address] [id number] [place] [address]- 3708 23 Jul, 2011 [facility] [place] [facility] [address] [facility] [id number] [place] [address]- 7494 21 Jul, 2011 [facility] [place] [facility] [address] [id number] [place] [address]- 4323 21 Jul, 2011 [facility] [place] [facility] [address] [id number] [place] [address]- 0907 14 Jul, 2011 [facility] [place] [facility] [address] [id number] [place] [address]- 1643 13 Jul, 2011 [facility] [place] [facility] [address] [facility] [id number] [place] [address]- 7804 07 Jul, 2011 [facility] [place] [facility] [address] [facility] [id number] [place] [address]- 3206 24 Jun, 2011 [facility] [place] [facility] [address] [id number] [place] [address]- 7886 Jun, [facility] [place] [facility] [address] [id number] [place] [address]- 8776 Jun, [facility] [place] [facility] [address] [id number] [place] [address] 2546 Jun, [facility] [place] [facility] [address] [id number] [place] [address]- 2356 Jun, [facility] [place] [facility] [address] [id number] [place] [address]- 8511 Jun, [facility] [place] [facility] [address] [id number] [place] [address]- 6315 Jun, [facility] [address] [id number] [place] [address]- 9512 May, [facility] [address] [id number] [place] [address]- 9310 May, [facility] [place] [facility] [address] [id number] [place] [address]- 9787 May, [facility] [address] [id number] [place] [address]- 9309 May, [facility] [place] [facility] [address] [id number] [place] [address]- 1917 May, [facility] [place] [facility] [address] [id number] [place] [address]- 2858 May, [facility] [place] [facility] [address] [id number] [place] [address]- 0763 May, [facility] [place] [facility] [address] [id number] [place] [address]- 1566 Apr, [facility] [place] [facility] [address] [id number] [place] [address]- 5639 Apr, [facility] [place] [facility] [address] [id number], [place] [address]- 5895 Apr, [facility] [place] [facility] [address] [id number] [place] [address]- 3510 Apr, [facility] [place] [facility] [address] [id number] [place] [address]- 6444 Apr, [facility] [place] [facility] [address] [id number] [place] [address]- 6769 Apr, [facility] [place] [facility] [address] [id number] [place] [address]- 9939 Apr, [facility] [place] [facility] [address] [id number] [place] [address]36 Apr, [facility] [place] [facility] [address] [id number] [place] [address]- 4221 Apr, [facility] [place] [facility] [address] [id number] [place] [address]- 4794 Mar, [facility] [place] [facility] [address] [id number] [place] [address]- 8606 Mar, [facility] [place] [facility] [address] [id number] [place] [address]- 2051 Mar, [facility] [place] [facility] [address] [id number] [place] [address]- 0165 Mar, [facility] [place] [facility] [address] [id number], [place] [address]- 8644 Mar, [facility] [place] [facility] [address] [id number], [place] [address]- 4467 Feb, [facility] [place] [facility] [address] [id number] [place] [address] Feb, [facility] [place] [facility] [address] [id number] [place] [address] Feb, [facility] [place] [facility] [address] [id number] [place] [address]- 3483 Dec, [facility] [place] [facility] [address] [id number] [place] [address]- 2931 12 Nov, 2010 [facility] [address] [id number] [place] [address]- 7516 22 Apr, 2010 [facility] [address] [id number] [place] [address] 2546 20 Apr, 2010 [facility] [address] [id number] [place] [address] 2546 16 Apr, 2010 [facility] [address] [id number] [place] [address] 2546 13 Apr, 2010 [facility] [address] [id number] [place] [address]- 5796 09 Apr, 2010 [facility] [address] [id number] [place] [address]- 2548 Apr, [facility] [address] [id number] [place] [address] 2541 Apr, [facility] [address] [id number] [place] [address]- 0273 Apr, [facility] [address] [id number] [place] [address]- 6202 29 Mar, 2010 [facility] [address] [id number] [place] [address]- 3922 24 Mar, 2010 [facility] [address] [id number] [place] [address] 2547 Mar, [facility] [address] [id number] [place] [address] 2549 Mar, [facility] [address] [id number] [place] [address] 2546 Mar, [facility] [address] [id number] [place] [address]- 2544 Mar, [facility] [address] [id number] [place] [address]- 5560 Mar, [facility] [address] [facility] [id number] [place] [address]- 1985 Mar, [facility] [address] [facility] [id number] [place] [address]- 4346 Mar, [facility] [address] [facility] [id number] [place] [address]- 5501 Mar, IMMUNIZATIONS No Known Immunizations SOCIAL HISTORY Never Assessed REASON FOR VISIT ID Referral PLAN OF CARE VITAL SIGNS MEDICATIONS Unknown [...]
--- OUTSIDE RECORDS SUMMARY | 2018-04-22 23:22 | XMS REPORT ---
Author Author MARY FRAGOSO [facility] Address [address] [place] [address] Care Team Providers Care Upper And Bottom Lacer Hand Name Role Phone MARY FRAGOSO Unavailable PROBLEMS Type Condition ICD9-CM Code YWH82-WU Code Onset Dates Condition Status SNOMED Code Problem Severe sleep apnea G47.30 Active 68522112 Problem Chronic kidney disease, stage 3 (moderate) N18.3 Active 645069109 Problem Decreased diffusion capacity R94.2 Active 95086516 Problem Anemia in other chronic diseases classified elsewhere D63.8 Active 354165127 Problem Stenosis of carotid artery, unspecified laterality I65.29 Active 75826156 Problem Type 2 diabetes mellitus with diabetic polyneuropathy E11.42 Active 731901587 Problem Trochanteric bursitis of left hip M70.62 Active [id number] Problem Diarrhea, unspecified type R19.7 Active 11073304 Problem Anxiety about health F41.8 Active 401738763 Problem Transient cerebral ischemia, unspecified type G45.9 Active 062957732 Problem Aortic valve sclerosis I35.8 Active 79215946 Problem Generalized osteoarthritis M15.9 Active 784586624 Problem Coronary artery disease involving [place] coronary artery of [place] heart, angina presence unspecified I25.10 Active 8947942195554 Problem Hypoxemia R09.02 Active 262174297 Problem Presence of IVC filter Z95.828 Active 587422933 Problem Port catheter in place Z95.828 Active 215453743 Problem BMI 50.0-59.9, adult Z68.43 Active 657223744 Problem Mixed hyperlipidemia E78.2 Active 314934604 Problem Type 2 diabetes mellitus with hyperglycemia E11.65 Active 73582579 Problem Essential hypertension I10 Active 60513371 Problem Iron deficiency anemia, unspecified iron deficiency anemia type D50.9 Active 64510216 Problem Type 2 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 Active 67948645 Problem Renal osteodystrophy N25.0 Active 97495077 Problem Type 2 diabetes mellitus with foot ulcer E11.621 Active 612837617 Problem 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 Active 7140575 ALLERGIES No Information ENCOUNTERS Encounter Location Date Diagnosis [facility] [id number] [place] [address] 29691- 7084 04 Oct, 2017 [facility] [id number] [place] [address] 02713 -1883 September, BMI 50.0-59.9, adult Z68.43 [facility] [id number] [place] [address] 86547- 0562 September, [facility] [address] 53220- 6714 September, [facility] [id number] [place] [address] 65933- 1137 24 Aug, 2017 Type 2 diabetes mellitus with foot ulcer E11.621 ; Transient cerebral ischemia, unspecified type G45.9 ; Essential hypertension I10 ; Mixed hyperlipidemia E78.2 and BMI 50.0-59.9, adult Z68.43 [facility] [id number] [place] [address] 69216- 9182 17 Aug, 2017 [facility] [id number] [place] [address] 37350- 7619 14 Jul, 2017 Anxiety about health F41.8 and Mixed hyperlipidemia E78.2 [facility] [id number] [place] [address] 08411- 5542 13 Jul, 2017 [facility] [id number] [place] [address] 52659- 0531 12 Jun, 2017 [facility] [id number] [place] [address] 25364- 4239 12 Jun, 2017 Type 2 diabetes mellitus with hyperglycemia E11.65 ; Type 2 diabetes mellitus with foot ulcer E11.621 ; Port catheter in place Z95.828 ; 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 ; Contact with and (suspected) exposure to potentially hazardous body fluids Z77.21 and BMI 50.0-59.9, adult Z68.43 [facility] [id number] [place] [address] 26666- 5154 May, [facility] [id number] [place] [address] 79422- 7545 May, Open wound of right great toe, subsequent encounter S91.101D [facility] [facility] [address] 27347- 3526 May, [facility] [id number] [place] [address] 35968- 7132 Apr, [facility] [address] 13491- 0741 Apr, [facility] [facility] [address] 61253- 1720 Apr, [facility] [facility] [address] 86449- 7024 14 Apr, 2017 Type 2 diabetes mellitus with diabetic polyneuropathy E11.42 [facility] [id number] [place] [address] 77624- 3393 13 Apr, 2017 Open wound of right great toe, subsequent encounter S91.101D [facility] [id number] [place] [address] 74954- 0456 08 Apr, 2017 Open wound of right great toe, subsequent encounter S91.101D ; Breast pain, left N64.4 ; Breast cancer screening Z12.31 ; Type 2 diabetes mellitus with foot ulcer E11.621 ; Essential hypertension I10 and BMI 50.0-59.9, adult Z68.43 [facility] [id number] [place] [address] 15210- 0242 Mar, Encounter for immunization Z23 [facility] [id number] [place] [address] 01251- 9935 Mar, [facility] [id number] [place] [address] 19698- 7919 Mar, [facility] [id number] [place] [address] 77139- 2052 Mar, Type 2 diabetes mellitus with diabetic polyneuropathy E11.42 ; Type 2 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 ; Type 2 diabetes mellitus with foot ulcer E11.621 ; Essential hypertension I10 ; Hypoxemia R09.02 and Generalized osteoarthritis M15.9 [facility] [facility] [address] 69637- 2366 Mar, Chronic kidney disease, stage 3 (moderate) N18.3 ; Acute cystitis without hematuria N30.00 ; Essential hypertension I10 ; Muscle spasms of neck M62.838 ; Type 2 diabetes mellitus with diabetic polyneuropathy E11.42 and BMI 50.0-59.9, adult Z68.43 [facility] [id number] [place] [address] 23993- 0869 Feb, [facility] [id number] [place] [address] 77013 -2379 Feb, [facility] [address] 46051- 7681 Feb, [facility] [id number] [place] [address] 09760- 0050 Feb, [facility] [id number] [place] [address] 86415- 2550 Feb, [facility] [address] 75681- 5743 Feb, [facility] [id number] [place] [address] 85213- 2120 Feb, Mixed hyperlipidemia E78.2 [facility] [address] 10200- 6724 Feb, [facility] [id number] [place] [address] 18632- 8205 Jan, [facility] [facility] [address] [address]- 1379 14 Jan, 2017 Generalized osteoarthritis M15.9 [facility] [id number] [place] [address] 03150- 0294 Oct, [facility] [facility] [address] [place] [address] 43626- 8464 Jul, [facility] [id number] [place] [address] 71150- 8237 Jul, [facility] [facility] [address] [place] [address] 39080- 2388 Jul, Type 2 diabetes mellitus with hyperglycemia E11.65 ; Chronic kidney disease, stage 3 (moderate) N18.3 ; Type 2 diabetes mellitus with foot ulcer E11.621 ; Type 2 diabetes mellitus with diabetic polyneuropathy E11.42 ; Generalized osteoarthritis M15.9 ; Trochanteric bursitis of left hip M70.62 and Tinea pedis of both feet B35.3 [facility] [address] [address]- 2180 13 Jun, 2016 [facility] [facility] [id number] [place] [address] 55540- 0273 Apr, [facility] [facility] [address] [place] [address] 57841- 4229 Apr, [facility] [address] [place] [address] 88367- 6595 Mar, [facility] [address] [place] [address] 43843- 1224 Feb, Encounter for immunization Z23 [facility] [facility] [id number] [place] [address] 397004- 2022 Feb, [facility] [facility] [address] [address]- 3640 Feb, Type 2 diabetes mellitus with hyperglycemia E11.65 ; Encounter for immunization Z23 ; Diarrhea, unspecified type R19.7 ; Essential hypertension I10 ; Mixed hyperlipidemia E78.2 ; Hypoxia R09.02 ; 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 and Type 2 diabetes mellitus with foot ulcer E11.621 [facility] [address] [place] [address] 46512- 0734 23 Jan, 2016 [facility] [id number] [place] [address] 62960- 7058 Jan, Type 2 diabetes mellitus with hyperglycemia E11.65 and Pneumonia due to infectious organism, unspecified laterality, unspecified part of lung J18.9 [facility] [address] [place] [address] 72298- 4105 Jan, [facility] [id number] [place] [address] 50540- 5023 Jan, [facility] [id number] [place] [address] 37176- 1936 Oct, Type 2 diabetes mellitus with hyperglycemia E11.65 ; Generalized osteoarthritis M15.9 and Chronic prescription opiate use Z79.891 [facility] [address] [place] [address] 57332- 0219 September, [facility] [id number] [place] [address] 63932- 7239 Aug, [facility] [address] [place] [address] 67421- 9023 Aug, [facility] [address] [place] [address] 33615- 9559 Aug, [facility] [address] [place] [address] 42402- 4192 Aug, [facility] [id number] [place] [address] 68940- 4395 Jun, [facility] [address] [place] [address] 88858- 0885 Jun, Type 2 diabetes mellitus with hyperglycemia E11.65 ; Mixed hyperlipidemia E78.2 ; Vaginal itching L29.8 ; Neck muscle spasm M62.838 and Skin abrasion T14.8 [facility] [id number] [place] [address] 89323- 3481 Apr, [place] [address] 99102- 1094 Apr, [place] [address] 14192- 9622 Mar, [place] [address] 50561- 0962 Feb, [address] 44948- 6901 Feb, Type 2 diabetes mellitus with hyperglycemia E11.65 ; Type 2 diabetes mellitus with foot ulcer E11.621 ; Type 2 diabetes mellitus with diabetic polyneuropathy E11.42 and Encounter for immunization Z23 [address] 05008- 9307 Jan, Hypertension 401.9 ; Uncontrolled type 2 diabetes mellitus 250.02 ; Right shoulder pain 719.41 and Ulcer of heel and midfoot 707.14 [id number] [place] [address] 23972- 7237 Dec, Diabetes with other specified manifestations, type II or unspecified type, not stated as uncontrolled 250.80 ; Ulcer of heel and midfoot 707.14 ; Hypertension 401.9 ; Hip pain, left 719.45 and Acute anxiety 300.00 [place] [id number] [place] [address] 75834- 8775 Nov, [place] [address] 18642- 1119 Nov, [facility] [address] 42527- 3135 September, Anxiety attack 300.01 and Cellulitis 682.9 [place] [address] 96651- 2546 September, [facility] [place] [facility] [address] [id number] [place] [address]- 7473 September, [facility] [place] [facility] [address] [id number] [place] [address]- 7333 September, [facility] [place] [facility] [address] [id number] [place] [address]- 1769 Aug, [facility] [place] [facility] [address] [id number] [place] [address]- 2116 Aug, [facility] [place] [facility] [address] [id number] [place] [address]- 9381 Jul, [facility] [place] [facility] [address] [id number] [place] [address]- 5729 Jul, [facility] [place] [facility] [address] [id number] [place] [address]- 0538 Jul, [facility] [place] [facility] [address] [id number] [place] [address]- 1678 May, [facility] [place] [facility] [address] [id number] [place] [address]- 4228 May, [facility] [place] [facility] [address] [id number] [place] [address]- 1817 Mar, [facility] [place] [facility] [address] [id number] [place] [address]- 7355 Mar, [facility] [place] [facility] [address] [id number] [place] [address]- 3477 Mar, [facility] [place] [facility] [address] [id number] [place] [address]- 5130 Mar, [facility] [place] [facility] [address] [id number] [place] [address]- 5310 Mar, [facility] [place] [facility] [address] [id number] [place] [address]- 2253 Mar, [facility] [place] [facility] [address] [id number] [place] [address]- 5992 07 Mar, 2014 [facility] [place] [facility] [address] [id number] [place] [address]- 5804 14 Feb, 2014 [facility] [place] [facility] [address] [id number] [place] [address]- 8136 14 Feb, 2014 [facility] [place] [facility] [address] [id number] [place] [address]- 5312 30 Sep, 2013 [facility] [place] [facility] [address] [id number] [place] [address]- 2548 30 Sep, 2013 [facility] [place] [facility] [address] [id number] [place] [address]- 9094 26 Sep, 2013 [facility] [place] [facility] [address] [id number] [place] [address]- 7654 26 Jan, 2013 [facility] [place] [facility] [address] [id number] [place] [address]- 2544 25 Jan, 2013 [facility] [place] [facility] [address] [id number] [place] [address]- 2542 25 Sep, 2013 [facility] [place] [facility] [address] [id number] [place] [address]- 254 25 Sep, 2013 [facility] [place] [facility] [address] [id number] [place] [address]- 2545 25 Sep, 2013 [facility] [place] [facility] [address] [id number] [place] [address] 2544 18 Sep, 2013 [facility] [place] [facility] [address] [id number] [place] [address]- 254 18 Sep, 2013 [facility] [place] [facility] [address] [id number] [place] [address] 2540 06 Sep, 2013 [facility] [place] [facility] [address] [id number] [place] [address]- 2546 06 Sep, 2013 [facility] [place] [facility] [address] [id number] [place] 2154 05 Sep, 2013 [facility] [place] [facility] [address] [id number] [place] [address]- 4904 Sep, 2013 [facility] [place] [facility] [address] [id number] [place] [address]- 6655 Jan, 2013 [facility] [place] [facility] [address] [id number] [place] [address]- 3259 Jan, 2013 [facility] [place] [facility] [address] [id number] [place] [address]- 7907 Jan, 2013 [facility] [place] [facility] [address] [id number] [place] [address]- 0923 Jan, 2013 [facility] [place] [facility] [address] [id number] [place] [address]- 4351 Dec, 2013 [facility] [place] [facility] [address] [id number] [place] [address]- 2892 Dec, 2013 [facility] [place] [facility] [address] [id number] [place] [address]- 3615 Dec, [facility] [place] [facility] [address] [id number] [place] [address]- 9228 Dec, [facility] [place] [facility] [address] [id number] [place] [address]- 3400 Dec, [facility] [place] [facility] [address] [id number] [address]- 2369 Dec, [facility] [place] [facility] [address] [id number], [place] [address]- 7758 Dec, [facility] [place] [facility] [address] [id number] [place] [address]- 4839 Dec, [facility] [place] [facility] [address] [id number] [place] [address]- 1729 Dec, [facility] [place] [facility] [address] [id number] [place] [address]- 4448 Dec, [facility] [place] [facility] [address] [id number], [place] [address]- 9383 14 Nov, 2013 [facility] [place] [facility] [address] [id number] [place] [address]- 4763 14 Nov, 2013 [facility] [place] [facility] [address] [id number] [place] [address]- 5099 Nov, [facility] [place] [facility] [address] [id number] [place] [address]- 0228 Nov, 2013 [facility] [place] [facility] [address] [id number] [place] [address]- 1443 Nov, [facility] [place] [facility] [address] [id number] [place] [address]- 8028 Nov, [facility] [place] [facility] [address] [id number] [place] [address]- 5841 Oct, [facility] [place] [facility] [address] [id number] [place] [address]- 4422 Oct, [facility] [place] [facility] [address] [id number] [place] [address]- 3371 Oct, [facility] [place] [facility] [address] [id number] [place] [address]- 5505 Oct, [facility] [place] [facility] [address] [id number] [place] [address]- 0297 Oct, [facility] [place] [facility] [address] [id number] [place] [address]- 5858 Oct, [facility] [place] [facility] [address] [id number], [place] [address]- 5291 Oct, [facility] [place] [facility] [address] [id number] [place] [address]- 3776 Oct, [facility] [place] [facility] [address] [id number] [place] [address]- 5097 Oct, [facility] [place] [facility] [address] [id number] [place] [address]- 2914 Oct, [facility] [place] [facility] [address] [id number] [place] [address]- 4076 Oct, [facility] [place] [facility] [address] [id number] [place] [address]- 3722 Oct, [facility] [place] [facility] [address] [id number] [place] [address]- 2316 September, [facility] [place] [facility] [address] [id number] [place] [address]- 1741 September, [facility] [place] [facility] [address] [id number] [place] [address]- 9894 September, [facility] [place] [facility] [address] [id number] [place] [address]- 1313 Aug, [facility] [place] [facility] [address] [id number] [place] [address]- 0717 Aug, [facility] [place] [facility] [address] [id number] [place] [address]- 6805 Jul, [facility] [place] [facility] [address] [id number] [place] [address]- 0051 Jul, [facility] [place] [facility] [address] [id number] [place] [address]- 4105 Jul, [facility] [place] [facility] [address] [id number] [place] [address]- 7287 Jul, [facility] [place] [facility] [address] [id number] [place] [address]- 1546 Jul, [facility] [place] [facility] [address] [id number] [place] [address]- 2974 Jul, [facility] [place] [facility] [address] [id number] [place] [address]- 4227 Jul, [facility] [place] [facility] [address] [id number] [place] [address]- 9756 Jul, [facility] [place] [facility] [address] [id number] [place] [address]- 8873 Jul, [facility] [place] [facility] [address] [id number] [place] [address]856 Jul, [facility] [place] [facility] [address] [id number] [place] [address]- 0446 Jun, [facility] [place] [facility] [address] [id number] [place] [address]- 3676 Jun, [facility] [place] [facility] [address] [id number] [place] [address]- 8786 Jun, [facility] [place] [facility] [address] [id number] [place] [address]- 6491 Jun, [facility] [place] [facility] [address] [id number] [place] [address]- 6169 May, [facility] [place] [facility] [address] [id number] [place] [address]- 2645 May, [facility] [place] [facility] [address] [id number] [place] [address] Apr, [facility] [place] [facility] [address] [id number] [place] [address] Apr, [facility] [place] [facility] [address] [id number] [place] [address] Apr, [facility] [place] [facility] [address] [id number] [place] [address] Apr, [facility] [place] [facility] [address] [id number] [place] [address] Apr, [facility] [place] [facility] [address] [id number] [id number] [address] Apr, [facility] [place] [facility] [address] [id number] [place] [address] Apr, [facility] [place] [facility] [address] [id number] [place] [address] Apr, [facility] [place] [facility] [address] [id number] [place] [address] Mar, [facility] [address] [id number] [place] [address] Mar, [facility] [place] [facility] [address] [id number] [place] [address] Mar, [facility] [address] [id number] [place] [address] Mar, [facility] [place] [facility] [address] [id number] [place] [address] Mar, [facility] [place] [facility] [address] [id number] [place] [address] Mar, [facility] [place] [facility] [address] [id number] [place] [address] Feb, [facility] [place] [facility] [address] [id number] [place] [address] 30 Feb, 2013 [facility] [address] [id number] [place] [address] Feb, [facility] [place] [facility] [address] [id number] [place] [address] 18 Feb, 2013 [facility] [address] [id number] [place] [address] Feb, [facility] [place] [facility] [address] [id number] [place] [address] 14 Feb, 2013 [facility] [place] [facility] [address] [id number] [place] [address] 04 Feb, 2013 [facility] [place] [facility] [address] [id number] [place] [address] 27 Jan, 2013 [facility] [place] [facility] [address] [id number] [place] [address] 26 Jan, 2013 [facility] [place] [facility] [address] [id number] [place] [address] Jan, [facility] [place] [facility] [address] [id number] [place] [address] Jan, [facility] [place] [facility] [address] [id number] [place] [address] Dec, [facility] [place] [facility] [address] [id number] [place] [address] Dec, [facility] [place] [facility] [address] [id number] [place] [address] Dec, [facility] [place] [facility] [address] [id number] [place] [address] Nov, [facility] [place] [facility] [address] [id number] [place] [address] Nov, [facility] [place] [facility] [address] [id number] [place] [address] Nov, [facility] [place] [facility] [address] [id number] [place] [address] Nov, [facility] [place] [facility] [address] [id number] [place] [address] Nov, [facility] [place] [facility] [address] [id number] [place] [address] Nov, [facility] [place] [facility] [address] [id number] [place] [address] Oct, [facility] [place] [facility] [address] [id number], [place] [address] Oct, [facility] [place] [facility] [address] [id number] [place] [address] Oct, [facility] [place] [facility] [address] [id number] [place] [address] Oct, [facility] [place] [facility] [address] [id number], [place] [address] Oct, [facility] [place] [facility] [address] [id number], [place] [address] Oct, [facility] [address] [id number] [place] [address] September, [facility] [facility] [address] [id number] [place] [address] September, [facility] [address] [id number] [place] [address] September, [facility] [address] [id number] [place] [address] September, [facility] [address] [id number] [place] [address] Aug, [facility] [address] [id number] [place] [address] Aug, [facility] [address] [id number] [place] [address] Jul, [facility] [address] [id number] [place] [address] Jul, [facility] [address] [id number] [place] [address] 1104 18 Jul, 2012 [facility] [address] [facility] [id number] [place] [address] 15 Jul, 2012 [facility] [address] [id number] [place] [address] Jul, [facility] [address] [id number], [place] [address] 08 Jul, 2012 [facility] [address] [id number] [place] [address] 20 Jun, 2012 [facility] [address] [id number] [place] [address] Jun, [facility] [address] [facility] [id number], [place] [address] May, [facility] [address] [id number] [place] [address]144 May, [facility] [address] [id number] [place] [address] Apr, [facility] [place] [facility] [address] [id number] [place] [address] 8780 18 Apr, 2012 [facility] [place] [facility] [address] [id number] [place] [address] 7046 13 Apr, 2012 [facility] [place] [facility] [address] [id number] [place] [address]- 8401 13 Apr, 2012 [facility] [place] [facility] [address] [id number] [place] [address] 9866 Apr, [facility] [address] [id number] [place] [address] 39[address] Apr, [facility] [address] [id number] [place] [address]- 9936 Apr, [facility] [place] [facility] [address] [id number] [place] [address] 9767 Apr, [facility] [place] [facility] [address] [id number] [place] [address] 8157 Apr, [facility] [place] [facility] [address] [id number] [place] [address] 8845 Apr, [facility] [place] [facility] [address] [id number] [place] [address]- 0548 Apr, [facility] [place] [facility] [address] [id number] [place] [address] 4320 Apr, [facility] [place] [facility] [address] [id number] [place] [address] 3038 Apr, [facility] [place] [facility] [address] [id number] [place] [address]- 0419 05 Apr, 2012 [facility] [place] [facility] [address] [id number] [place] [address] Apr, [facility] [place] [facility] [address] [id number] [place] [address] 3556 Apr, [facility] [place] [facility] [address] [id number] [place] [address] 9128 Mar, [facility] [place] [facility] [address] [facility] [id number] [place] [address] 2056 Mar, [facility] [place] [facility] [address] [id number] [place] [address] 1195 Mar, [facility] [place] [facility] [address] [id number] [place] [address] 0885 Mar, [facility] [place] [facility] [address] [id number], [place] [address] Mar, [facility] [place] [facility] [address] [facility] [id number] [place] [address]249 Mar, [facility] [place] [facility] [address] [id number], [place] [address] 9[address] Mar, [facility] [place] [facility] [address] [id number], [place] [address] 8744 Mar, [facility] [place] [facility] [address] [facility] [id number], [place] [address] 4927 Mar, [facility] [place] [facility] [address] [id number], [place] [address] 64[address] Mar, [facility] [place] [facility] [address] [id number], [place] [address]- 68[address] Feb, [facility] [place] [facility] [address] [id number], [place] [address] 9810 Feb, [facility] [place] [facility] [address] [facility] [id number], [place] [address]- 4[address] Feb, [facility] [place] [facility] [address] [facility] [id number], [place] [address]- 8278 Feb, [facility] [place] [facility] [address] [id number] [place] [address]- 5110 Feb, [facility] [address] [id number] [place] [address]- 8508 Feb, [facility] [place] [facility] [address] [id number] [place] [address] Jan, [facility] [place] [facility] [address] [id number] [place] [address]- 9114 Dec, [facility] [place] [facility] [address] [id number] [place] [address]- 6545 Dec, [facility] [place] [facility] [address] [id number] [place] [address]- 0548 Dec, [facility] [place] [facility] [address] [id number] [place] [address]- 5958 Dec, [facility] [address] [id number] [place] [address]- 7112 Nov, [facility] [address] [id number] [place] [address] 9380 Nov, [facility] [place] [facility] [address] [id number] [place] [address]- 2145 Nov, [facility] [address] [id number] [place] [address]- 3699 Nov, [facility] [place] [facility] [address] [id number] [place] [address]- 9838 Oct, [facility] [place] [facility] [address] [id number] [place] [address]- 2473 Oct, [facility] [place] [facility] [address] [id number] [place] [address]- 0465 Oct, [facility] [place] [facility] [address] [id number] [place] [address]- 4479 Oct, [facility] [place] [facility] [address] [id number] [place] [address]- 8867 Oct, [facility] [place] [facility] [address] [id number] [place] [address]- 0325 September, [facility] [address] [id number] [place] [address]- 9158 September, [facility] [address] [id number] [place] [address] 3050 September, [facility] [address] [id number] [place] [address]- 7260 September, [facility] [address] [id number] [place] [address]- 3303 September, [facility] [address] [id number] [place] [address]- 8435 September, [facility] [address] [id number] [place] [address]- 4173 September, [facility] [address] [id number] [place] [address]- 1370 September, [facility] [address] [id number] [place] [address]- 3331 Aug, [facility] [address] [id number] [place] [address]- 2394 Aug, [facility] [place] [facility] [address] [id number] [place] [address]- 3791 Aug, [facility] [place] [facility] [address] [id number], [place] [address]- 6285 Aug, [facility] [place] [facility] [address] [id number] [place] [address]- 2362 18 Aug, 2011 [facility] [place] [facility] [address] [id number] [place] [address]- 1732 17 Aug, 2011 [facility] [place] [facility] [address] [id number] [place] [address]- 8596 13 Aug, 2011 [facility] [place] [facility] [address] [id number] [place] [address]- 7089 12 Aug, 2011 [facility] [address] [id number] [place] [address]- 0997 10 Aug, 2011 [facility] [place] [facility] [address] [id number] [place] [address] 09 Aug, 2011 [facility] [place] [facility] [address] [id number] [place] [address]- 8631 Aug, [facility] [place] [facility] [address] [id number] [place] [address]- 4853 Aug, [facility] [place] [facility] [address] [id number] [place] [address]- 2775 29 Jul, 2011 [facility] [place] [facility] [address] [id number] [place] [address]- 6853 28 Jul, 2011 [facility] [place] [facility] [address] [facility] [id number] [place] [address]- 9702 27 Jul, 2011 [facility] [place] [facility] [address] [id number] [place] [address]- 1048 23 Jul, 2011 [facility] [place] [facility] [address] [id number] [place] [address]- 9678 21 Jul, 2011 [facility] [place] [facility] [address] [facility] [id number] [place] [address]- 3339 21 Jul, 2011 [facility] [place] [facility] [address] [id number] [place] [address]- 6537 14 Jul, 2011 [facility] [place] [facility] [address] [id number] [place] [address]- 2017 13 Jul, 2011 [facility] [place] [facility] [address] [id number] [place] [address]- 1126 07 Jul, 2011 [facility] [place] [facility] [address] [facility] [id number] [place] [address]- 0960 24 Jun, 2011 [facility] [place] [facility] [address] [facility] [id number] [place] [address]- 6274 23 Jun, 2011 [facility] [place] [facility] [address] [id number] [place] [address]- 9987 Jun, [facility] [place] [facility] [address] [id number] [place] [address]- 7686 Jun, [facility] [place] [facility] [address] [id number] [place] [address]- 5976 Jun, [facility] [place] [facility] [address] [id number] [place] [address]- 1086 Jun, [facility] [place] [facility] [address] [id number] [place] [address]- 6959 Jun, [facility] [place] [facility] [address] [id number] [place] [address]- 0121 May, [facility] [address] [id number] [place] [address]- 8538 May, [facility] [address] [id number] [place] [address]- 5375 May, [facility] [place] [facility] [address] [id number] [place] [address]- 8508 May, [facility] [place] [facility] [address] [id number] [place] [address]- 6395 May, [facility] [place] [facility] [address] [id number] [place] [address]- 8323 May, [facility] [place] [facility] [address] [id number] [place] [address]- 0821 May, [facility] [place] [facility] [address] [id number] [place] [address]- 1334 Apr, [facility] [place] [facility] [address] [id number] [place] [address]- 6986 Apr, [facility] [place] [facility] [address] [id number] [place] [address]- 3102 Apr, [facility] [place] [facility] [address] [id number], [place] [address]- 6386 Apr, [facility] [place] [facility] [address] [id number] [place] [address]182 Apr, [facility] [place] [facility] [address] [id number] [place] [address]- 6438 Apr, [facility] [place] [facility] [address] [id number] [place] [address]- 0146 Apr, [facility] [place] [facility] [address] [id number] [place] [address]- 0840 Apr, [facility] [place] [facility] [address] [id number] [place] [address]269 Apr, [facility] [place] [facility] [address] [id number] [place] [address]- 1955 Mar, [facility] [place] [facility] [address] [id number] [place] [address]- 8726 Mar, [facility] [place] [facility] [address] [id number] [place] [address]- 1083 Mar, [facility] [place] [facility] [address] [id number] [place] [address]- 2243 Mar, [facility] [place] [facility] [address] [id number] [place] [address]- 6294 Mar, [facility] [place] [facility] [address] [id number], [place] [address]- 1884 Feb, [facility] [place] [facility] [address] [id number] [place] [address]- 4866 Feb, [facility] [place] [facility] [address] [id number] [place] [address]792 Feb, [facility] [place] [facility] [address] [id number] [place] [address]- 7399 Dec, [facility] [place] [facility] [address] [id number] [place] [address]- 4791 Nov, [facility] [place] [facility] [address] [id number] [place] [address]- 5415 22 Apr, 2010 [facility] [address] [id number] [place] [address]- 1926 20 Apr, 2010 [facility] [address] [id number] [place] [address] 2546 16 Apr, 2010 [facility] [address] [id number] [place] [address] 2546 13 Apr, 2010 [facility] [address] [id number] [place] [address] 2546 09 Apr, 2010 [facility] [address] [id number] [place] [address] 2546 06 Apr, 2010 [facility] [address] [id number] [place] [address] 2546 06 Apr, 2010 [facility] [address] [id number] [place] [address] 2541 Apr, [facility] [address] [id number] [place] [address] 2544 29 Mar, 2010 [facility] [address] [id number] [place] [address] 254 24 Mar, 2010 [facility] [address] [id number] [place] [address] 2545 Mar, [facility] [address] [id number] [place] [address] 2546 Mar, [facility] [address] [id number] [place] [address] 2546 Mar, [facility] [place] [facility] [address] [id number] [place] [address] 2546 Mar, [facility] [address] [id number] [place] [address] 2546 15 Mar, 2010 [facility] [address] [id number] [place] [address] 2546 Mar, [facility] [address] [facility] [id number] [place] [address]- 9380 Mar, [facility] [address] [facility] [id number] [place] [address]- 7786 Mar, IMMUNIZATIONS No Known Immunizations SOCIAL HISTORY Never Assessed REASON FOR VISIT Refill Request PLAN OF CARE VITAL SIGNS MEDICATIONS Medication Instructions Dosage Frequency Start Date End Date Duration Status NovoLog Flexpen 100 unit/mL Subcutaneous 3 times a day 10 units before meals 8h Jul, Active RESULTS No Results PROCEDURES No Known [...]
--- OUTSIDE RECORDS SUMMARY | 2018-04-22 23:23 | XMS REPORT ---
Author Author MARY FRAGOSO [facility] Address [address] [place] [address] Care Team Providers Care Infantry Officer Name Role Phone MARY FRAGOSO Unavailable PROBLEMS Type Condition ICD9-CM Code [id number] Code Onset Dates Condition Status SNOMED Code Problem Severe sleep apnea G47.30 Active 49812238 Problem Chronic kidney disease, stage 3 (moderate) N18.3 Active 512894207 Problem Decreased diffusion capacity R94.2 Active 11132603 Problem Anemia in other chronic diseases classified elsewhere D63.8 Active 905516240 Problem Stenosis of carotid artery, unspecified laterality I65.29 Active 82595538 Problem Type 2 diabetes mellitus with diabetic polyneuropathy E11.42 Active 727597855 Problem Trochanteric bursitis of left hip M70.62 Active [id number] Problem Diarrhea, unspecified type R19.7 Active 97316331 Problem Anxiety about health F41.8 Active 829712983 Problem Transient cerebral ischemia, unspecified type G45.9 Active 536315671 Problem Aortic valve sclerosis I35.8 Active 60106514 Problem Generalized osteoarthritis M15.9 Active 845005001 Problem Coronary artery disease involving [place] coronary artery of [place] heart, angina presence unspecified I25.10 Active 2067582667016 Problem Hypoxemia R09.02 Active 550739658 Problem Presence of IVC filter Z95.828 Active 634577556 Problem Port catheter in place Z95.828 Active 254142621 Problem BMI 50.0-59.9, adult Z68.43 Active 937679742 Problem Mixed hyperlipidemia E78.2 Active 255280131 Problem Type 2 diabetes mellitus with hyperglycemia E11.65 Active 60003050 Problem Essential hypertension I10 Active 18982635 Problem Iron deficiency anemia, unspecified iron deficiency anemia type D50.9 Active 75833517 Problem Type 2 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 Active 04547079 Problem Renal osteodystrophy N25.0 Active 99199684 Problem Type 2 diabetes mellitus with foot ulcer E11.621 Active 789862109 Problem 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 Active 7907546 ALLERGIES Substance Reaction Event Type Date Status Triple Antibiotic Unknown Drug Allergy Apr, Active Penicillin V Potassium Unknown Drug Allergy Apr, Active Flonase bloody nose Drug Allergy Apr, Active Amoxicillin Unknown Drug Allergy Apr, Active ENCOUNTERS Encounter Location Date Diagnosis [facility] [id number] [place] [address] 31208- 4399 Oct, [facility] [id number] [place] [address] 12496 -4364 September, BMI 50.0-59.9, adult Z68.43 [facility] [id number] [place] [address] 57981- 7340 September, [facility] [id number] [place] [address] 07596- 5799 September, [facility] [id number] [place] [address] 05362- 9629 Aug, Type 2 diabetes mellitus with foot ulcer E11.621 ; Transient cerebral ischemia, unspecified type G45.9 ; Essential hypertension I10 ; Mixed hyperlipidemia E78.2 and BMI 50.0-59.9, adult Z68.43 [facility] [id number] [address] 39[address] Aug, [facility] [id number] [place] [address] 94417- 3627 Jul, Anxiety about health F41.8 and Mixed hyperlipidemia E78.2 [facility] [id number] [place] [address] 71567- 5085 Jul, [facility] [id number] [place] [address] 90724- 8900 Jun, [facility] [id number] [place] [address] 42539- 0426 Jun, Type 2 diabetes mellitus with hyperglycemia E11.65 ; Type 2 diabetes mellitus with foot ulcer E11.621 ; Port catheter in place Z95.828 ; 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 ; Contact with and (suspected) exposure to potentially hazardous body fluids Z77.21 and BMI 50.0-59.9, adult Z68.43 [facility] [id number] [place] [address] 59805- 2659 May, [facility] [id number] [place] [address] 15301- 9392 May, Open wound of right great toe, subsequent encounter S91.101D [facility] [address] 43830- 7471 May, [facility] [id number] [place] [address] 40246- 3760 Apr, [facility] [address] 31797- 8791 15 Apr, 2017 [facility] [id number] [place] [address] 98015- 1660 14 Apr, 2017 [facility] [id number] [place] [address] 47441- 7462 14 Apr, 2017 Type 2 diabetes mellitus with diabetic polyneuropathy E11.42 [facility] [id number] [place] [address] 08294- 1862 13 Apr, 2017 Open wound of right great toe, subsequent encounter S91.101D [facility] [id number] [place] [address] 39843- 5458 08 Apr, 2017 Open wound of right great toe, subsequent encounter S91.101D ; Breast pain, left N64.4 ; Breast cancer screening Z12.31 ; Type 2 diabetes mellitus with foot ulcer E11.621 ; Essential hypertension I10 and BMI 50.0-59.9, adult Z68.43 [facility] [id number] [place] [address] 89319- 0990 Mar, Encounter for immunization Z23 [facility] [id number] [place] [address] 57353- 2547 Mar, [facility] [id number] [place] [address] 63459- 1806 Mar, [facility] [id number] [place] [address] 96511- 3932 Mar, Type 2 diabetes mellitus with diabetic polyneuropathy E11.42 ; Type 2 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 ; Type 2 diabetes mellitus with foot ulcer E11.621 ; Essential hypertension I10 ; Hypoxemia R09.02 and Generalized osteoarthritis M15.9 [facility] [facility] [address] 89063- 7326 Mar, Chronic kidney disease, stage 3 (moderate) N18.3 ; Acute cystitis without hematuria N30.00 ; Essential hypertension I10 ; Muscle spasms of neck M62.838 ; Type 2 diabetes mellitus with diabetic polyneuropathy E11.42 and BMI 50.0-59.9, adult Z68.43 [facility] [id number] [place] [address] 80820- 9004 Feb, [facility] [id number] [place] [address] 00318 -2572 Feb, [facility] [id number] [place] [address] 83592- 0969 Feb, [facility] [id number] [place] [address] 56234- 5414 Feb, [facility] [id number] [place] [address] 20437- 8935 Feb, [facility] [id number] [place] [address] 95790- 9349 Feb, [facility] [id number] [place] [address] 49013- 4778 Feb, Mixed hyperlipidemia E78.2 [facility] [address] 19456- 6376 Feb, [facility] [address] [address]- 9321 Jan, [facility] [id number] [place] [address] 65285- 5835 Jan, Generalized osteoarthritis M15.9 [facility] [address] [place] [address] 94543- 6851 Oct, [facility] [id number] [place] [address] 26588- 4739 Jul, [facility] [id number] [place] [address] 16932- 6427 Jul, [facility] [id number] [place] [address] 18219- 6625 Jul, Type 2 diabetes mellitus with hyperglycemia E11.65 ; Chronic kidney disease, stage 3 (moderate) N18.3 ; Type 2 diabetes mellitus with foot ulcer E11.621 ; Type 2 diabetes mellitus with diabetic polyneuropathy E11.42 ; Generalized osteoarthritis M15.9 ; Trochanteric bursitis of left hip M70.62 and Tinea pedis of both feet B35.3 [facility] [address] [place] [address] 16282- 7240 Jun, [facility] [address] [address]- 2945 Apr, [facility] [id number] [place] [address] 00597- 0674 Apr, [facility] [address] [place] [address] 12081- 4730 Mar, [facility] [id number] [place] [address] 08085- 8156 Feb, Encounter for immunization Z23 [facility] [address] [place] [address] 73746- 6504 Feb, [facility] [id number] [address]- 6381 14 Feb, 2016 Type 2 diabetes mellitus with hyperglycemia E11.65 ; Encounter for immunization Z23 ; Diarrhea, unspecified type R19.7 ; Essential hypertension I10 ; Mixed hyperlipidemia E78.2 ; Hypoxia R09.02 ; 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 and Type 2 diabetes mellitus with foot ulcer E11.621 [facility] [id number] [place] [address] 78010- 3953 23 Jan, 2016 [facility] [id number] [place] [address] 01002- 7039 19 Jan, 2016 Type 2 diabetes mellitus with hyperglycemia E11.65 and Pneumonia due to infectious organism, unspecified laterality, unspecified part of lung J18.9 [facility] [id number] [place] [address] 74251- 5700 19 Jan, 2016 [facility] [id number] [place] [address] 88954- 1514 16 Jan, 2016 [facility] [id number] [place] [address] 92511- 0766 Oct, Type 2 diabetes mellitus with hyperglycemia E11.65 ; Generalized osteoarthritis M15.9 and Chronic prescription opiate use Z79.891 [facility] [id number] [place] [address] 77194- 6738 September, [facility] [id number] [place] [address] 10958- 2795 Aug, [facility] [id number] [place] [address] 92278- 9719 Aug, [facility] [id number] [place] [address] 60435- 6576 Aug, [facility] [id number] [place] [address] 96684- 9686 Aug, [facility] [id number] [place] [address] 47478- 8315 Jun, [facility] [id number] [place] [address] 10007- 7789 Jun, Type 2 diabetes mellitus with hyperglycemia E11.65 ; Mixed hyperlipidemia E78.2 ; Vaginal itching L29.8 ; Neck muscle spasm M62.838 and Skin abrasion T14.8 [facility] [address] 43899- 6479 Apr, [facility] [address] 37974- 5805 Apr, [facility] [facility] [address] 33386- 0495 Mar, [facility] [facility] [address] 53982- 8141 Feb, [facility] [facility] [address] 25180- 8636 Feb, Type 2 diabetes mellitus with hyperglycemia E11.65 ; Type 2 diabetes mellitus with foot ulcer E11.621 ; Type 2 diabetes mellitus with diabetic polyneuropathy E11.42 and Encounter for immunization Z23 [facility] [facility] [address] 70993- 7268 Jan, Hypertension 401.9 ; Uncontrolled type 2 diabetes mellitus 250.02 ; Right shoulder pain 719.41 and Ulcer of heel and midfoot 707.14 [facility] [facility] [address] 63014- 4039 Dec, Diabetes with other specified manifestations, type II or unspecified type, not stated as uncontrolled 250.80 ; Ulcer of heel and midfoot 707.14 ; Hypertension 401.9 ; Hip pain, left 719.45 and Acute anxiety 300.00 [facility] [facility] [address] 60762- 1244 Nov, [facility] [id number] [place] [address] 85559- 5374 Nov, [facility] [address] 87402- 9757 September, Anxiety attack 300.01 and Cellulitis 682.9 [facility] [id number] [place] [address]- 6566 September, [facility] [address] [facility] [id number] [place] [address]- 3566 September, [facility] [address] [facility] [id number] [place] [address]- 4326 September, [facility] [address] [facility] [id number] [place] [address]- 0032 Aug, [facility] [address] [id number] [place] [address]- 2253 Aug, [facility] [id number] [place] [address]- 8675 Jul, [facility] [id number] [place] [address]- 7518 Jul, [facility] [id number] [place] [address]- 4857 Jul, [facility] [address] [id number] [place] [address]- 7508 May, [facility] [id number] [place] [address]- 2403 May, [facility] [address] [id number] [place] [address]- 6981 Mar, [facility] [address] [facility] [id number] [address]- 2299 Mar, [facility] [address] [id number] [place] [address]- 0326 Mar, [facility] [address] [facility] [id number] [place] [address]- 5176 Mar, [facility] [id number] [address]- 5375 Mar, [facility] [place] [facility] [address] [id number] [place] [address]- 1766 07 Mar, 2014 [facility] [place] [facility] [address] [id number] [place] [address]- 3058 07 Mar, 2014 [facility] [place] [facility] [address] [id number] [place] [address]- 5367 14 Feb, 2014 [facility] [place] [facility] [address] [id number] [place] [address]- 7336 14 Feb, 2014 [facility] [place] [facility] [address] [id number] [place] [address]- 7997 30 Jan, 2013 [facility] [place] [facility] [address] [id number] [place] [address]- 1779 30 Jan, 2013 [facility] [place] [facility] [address] [id number] [place] [address]- 8493 26 Jan, 2013 [facility] [place] [facility] [address] [id number] [place] [address]- 9349 26 Jan, 2013 [facility] [place] [facility] [address] [id number] [place] [address]- 0460 25 Jan, 2013 [facility] [place] [facility] [address] [id number] [place] [address]- 9031 25 Jan, 2013 [facility] [place] [facility] [address] [id number], [place] [address]- 3258 25 Jan, 2013 [facility] [place] [facility] [address] [id number], [place] [address]- 8173 25 Jan, 2013 [facility] [place] [facility] [address] [id number] [place] [address]- 3057 18 Jan, 2013 [facility] [place] [facility] [address] [id number] [place] [address]- 3098 18 Jan, 2013 [facility] [place] [facility] [address] [id number] [place] [address]- 5118 06 Jan, 2013 [facility] [place] [facility] [address] [id number] [place] [address]- 6258 06 Sep, 2013 [facility] [place] [facility] [address] [id number] [place] [address]- 8734 05 Sep, 2013 [facility] [place] [facility] [address] [id number] [place] [address]- 6416 Sep, 2013 [facility] [place] [facility] [address] [id number] [place] [address]- 3931 05 Sep, 2013 [facility] [place] [facility] [address] [id number] [place] [address]- 5496 05 Sep, 2013 [facility] [place] [facility] [address] [id number] [place] [address]- 8053 05 Sep, 2013 [facility] [place] [facility] [address] [id number] [place] [address]- 9526 Jan, 2013 [facility] [place] [facility] [address] [id number] [place] [address]- 5739 Dec, 2013 [facility] [place] [facility] [address] [id number] [place] [address]- 8756 Dec, 2013 [facility] [place] [facility] [address] [id number] [place] [address]- 2572 Dec, 2013 [facility] [place] [facility] [address] [id number] [place] [address]- 5770 Dec, 2013 [facility] [place] [facility] [address] [id number] [place] [address]- 6075 Dec, 2013 [facility] [place] [facility] [address] [id number] [place] [address]- 9585 Dec, 2013 [facility] [place] [facility] [address] [id number] [place] [address]- 3679 Dec, 2013 [facility] [place] [facility] [address] [id number] [place] [address]- 1825 Dec, 2013 [facility] [place] [facility] [address] [id number] [place] [address]- 3889 04 Dec, 2013 [facility] [place] [facility] [address] [id number] [place] [address]- 9825 Dec, [facility] [place] [facility] [address] [id number] [place] [address]- 4221 Nov, [facility] [place] [facility] [address] [id number] [place] [address]- 5500 Nov, [facility] [place] [facility] [address] [id number] [place] [address]- 9087 Nov, [facility] [place] [facility] [address] [id number] [place] [address]- 4978 Nov, [facility] [place] [facility] [address] [id number] [place] [address]- 1774 Nov, [facility] [place] [facility] [address] [id number] [place] [address]- 7302 Nov, [facility] [place] [facility] [address] [id number] [place] [address]- 7886 Oct, [facility] [place] [facility] [address] [id number] [place] [address]- 8621 Oct, [facility] [place] [facility] [address] [id number] [place] [address]- 4160 Oct, [facility] [place] [facility] [address] [id number] [place] [address]- 4558 Oct, [facility] [place] [facility] [address] [id number] [place] [address]- 2046 Oct, [facility] [place] [facility] [address] [id number] [place] [address]- 6304 Oct, [facility] [place] [facility] [address] [id number] [place] [address]- 2664 Oct, [facility] [place] [facility] [address] [id number] [place] [address]- 8733 Oct, [facility] [place] [facility] [address] [id number] [place] [address]- 9056 Oct, [facility] [place] [facility] [address] [id number] [place] [address]- 3341 Oct, [facility] [place] [facility] [address] [id number] [place] [address]- 7897 Oct, [facility] [place] [facility] [address] [id number] [place] [address]- 0190 Oct, [facility] [place] [facility] [address] [id number] [place] [address]- 6253 September, [facility] [place] [facility] [address] [id number] [place] [address]- 8149 September, [facility] [place] [facility] [address] [id number] [place] [address]- 8578 September, [facility] [place] [facility] [address] [id number] [place] [address]- 5509 Aug, [facility] [place] [facility] [address] [id number] [place] [address]- 5135 Aug, [facility] [place] [facility] [address] [id number] [place] [address]- 3802 Jul, [facility] [place] [facility] [address] [id number] [place] [address]- 0851 Jul, [facility] [place] [facility] [address] [id number] [place] [address]- 1226 Jul, [facility] [place] [facility] [address] [id number] [place] [address]- 8761 Jul, [facility] [place] [facility] [address] [id number] [place] [address]- 5260 Jul, [facility] [place] [facility] [address] [id number] [place] [address]- 4613 Jul, [facility] [place] [facility] [address] [id number] [place] [address]- 4880 Jul, [facility] [place] [facility] [address] [id number] [place] [address] 2546 Jul, [facility] [place] [facility] [address] [id number] [place] [address]- 1326 Jul, [facility] [place] [facility] [address] [id number] [place] [address]- 2546 Jul, [facility] [place] [facility] [address] [id number] [place] [address]- 0416 Jun, [facility] [place] [facility] [address] [id number] [place] [address]- 2546 Jun, [facility] [place] [facility] [address] [id number] [place] [address]- 2456 Jun, [facility] [place] [facility] [address] [id number] [place] [address] 2546 Jun, [facility] [place] [facility] [address] [id number] [place] [address]- 4262 May, [facility] [place] [facility] [address] [id number] [place] [address] May, [facility] [place] [facility] [address] [id number] [place] [address] Apr, [facility] [place] [facility] [address] [id number] [place] [address] Apr, [facility] [place] [facility] [address] [id number] [place] [address] Apr, [facility] [place] [facility] [address] [id number] [place] [address] Apr, [facility] [place] [facility] [address] [id number] [place] [address] Apr, [facility] [place] [facility] [address] [id number] [place] [address] Apr, [facility] [place] [facility] [address] [id number] [place] [address] Apr, [facility] [place] [facility] [address] [id number] [place] [address] Apr, [facility] [place] [facility] [address] [id number] [place] [address] Mar, [facility] [place] [facility] [address] [id number] [place] [address] Mar, [facility] [place] [facility] [address] [id number] [place] [address] Mar, [facility] [place] [facility] [address] [id number] [place] [address] Mar, [facility] [place] [facility] [address] [id number] [place] [address]- [address] Mar, [facility] [place] [facility] [address] [id number] [place] [address] Mar, [facility] [place] [facility] [address] [id number], [place] [address] Feb, [facility] [place] [facility] [address] [id number] [place] [address] 30 Feb, 2013 [facility] [place] [facility] [address] [id number], [place] [address] Feb, [facility] [place] [facility] [address] [id number], [place] [address] Feb, [facility] [place] [facility] [address] [id number], [place] [address] 14 Feb, 2013 [facility] [place] [facility] [address] [id number], [place] [address] Feb, [facility] [place] [facility] [address] [id number], [place] [address] 04 Feb, 2013 [facility] [place] [facility] [address] [id number], [place] [address] 27 Jan, 2013 [facility] [place] [facility] [address] [id number] [place] [address]- [address] Jan, [facility] [address] [id number] [place] [address] Jan, [facility] [place] [facility] [address] [id number] [place] [address] Jan, [facility] [place] [facility] [address] [id number] [place] [address]- [address] Dec, [facility] [place] [facility] [address] [id number] [place] [address] Dec, [facility] [place] [facility] [address] [id number] [place] [address] Dec, [facility] [place] [facility] [address] [id number] [place] [address] Nov, [facility] [address] [id number] [place] [address] Nov, [facility] [place] [facility] [address] [id number] [place] [address] Nov, [facility] [place] [facility] [address] [address] [id number] [place] [address] Nov, [facility] [place] [facility] [address] [id number] [place] [address] Nov, [facility] [place] [facility] [address] [id number] [place] [address] Nov, [facility] [place] [facility] [address] [id number] [place] [address] Oct, [facility] [place] [facility] [address] [id number] [place] [address] 79[address] Oct, [facility] [place] [facility] [address] [id number] [place] [address]- [address] Oct, [facility] [place] [facility] [address] [id number] [place] [address]- 3361 Oct, [facility] [place] [facility] [address] [id number] [place] [address]- 2686 Oct, [facility] [address] [id number] [place] [address] 8284 Oct, [facility] [address] [id number] [place] [address] 9741 September, [facility] [address] [id number] [place] [address] September, [facility] [address] [id number] [place] [address] 2732 September, [facility] [address] [id number] [place] [address] September, [facility] [address] [id number] [place] [address] 40[address] Aug, [facility] [address] [id number] [place] [address] 3632 Aug, [facility] [address] [id number] [place] [address] 8403 Jul, [facility] [address] [id number] [place] [address] 8227 Jul, [facility] [address] [id number] [place] [address] 5963 Jul, [facility] [address] [id number] [place] [address]- 5114 15 Jul, 2012 [facility] [address] [id number] [place] [address]- 0600 Jul, [facility] [place] [facility] [address] [id number] [place] [address]- 4400 08 Jul, 2012 [facility] [place] [facility] [address] [id number] [place] [address]- 1045 Jun, [facility] [address] [id number] [place] [address]- 2476 13 Jun, 2012 [facility] [address] [id number] [place] [address]- 8825 May, [facility] [place] [facility] [address] [id number] [place] [address]- 2196 May, [facility] [address] [id number] [place] [address]- 0606 18 Apr, 2012 [facility] [place] [facility] [address] [id number] [place] [address]- 3912 18 Apr, 2012 [facility] [address] [id number] [place] [address]- 4978 13 Apr, 2012 [facility] [place] [facility] [address] [id number] [place] [address]- 6234 Apr, [facility] [address] [id number] [place] [address]- 2412 Apr, [facility] [place] [facility] [address] [id number] [place] [address]- 2412 Apr, [facility] [address] [id number] [place] [address]- 5628 Apr, [facility] [place] [facility] [address] [id number] [place] [address]- 4039 Apr, [facility] [place] [facility] [address] [id number] [place] [address]- 4749 Apr, [facility] [place] [facility] [address] [id number] [place] [address]- 0220 Apr, [facility] [place] [facility] [address] [id number] [place] [address]- 8311 Apr, [facility] [place] [facility] [address] [id number] [place] [address]- 8049 07 Apr, 2012 [facility] [place] [facility] [address] [id number] [place] [address] 05 Apr, 2012 [facility] [place] [facility] [address] [id number] [place] [address]- 2366 05 Apr, 2012 [facility] [place] [facility] [address] [id number] [place] [address]- 9189 Apr, [facility] [place] [facility] [address] [id number] [place] [address]- 2866 Apr, [facility] [place] [facility] [address] [id number] [place] [address]- 4783 Mar, [facility] [place] [facility] [address] [id number] [place] [address]- 2948 Mar, [facility] [place] [facility] [address] [id number] [place] [address]- 8913 Mar, [facility] [place] [facility] [address] [facility] [id number] [place] [address]- 1003 Mar, [facility] [place] [facility] [address] [id number] [place] [address]- 6019 Mar, [facility] [place] [facility] [address] [id number] [place] [address]- 9465 Mar, [facility] [place] [facility] [address] [id number] [place] [address]- 1826 Mar, [facility] [place] [facility] [address] [facility] [id number] [place] [address]- 4370 Mar, [facility] [place] [facility] [address] [id number] [place] [address]- 7499 Mar, [facility] [place] [facility] [address] [id number] [place] [address]- 6486 Mar, [facility] [place] [facility] [address] [id number] [place] [address]- 7134 Feb, [facility] [place] [facility] [address] [id number] [place] [address]- 0866 Feb, [facility] [place] [facility] [address] [id number] [place] [address]- 5067 Feb, [facility] [place] [facility] [address] [id number] [place] [address]- 5877 Feb, [facility] [place] [facility] [address] [id number] [place] [address]- 8750 Feb, [facility] [place] [facility] [address] [id number] [place] [address]- 1893 Feb, [facility] [place] [facility] [address] [id number] [place] [address]- 7921 Jan, [facility] [place] [facility] [address] [id number] [place] [address]- 1439 Dec, [facility] [place] [facility] [address] [id number] [place] [address]- 3231 Dec, [facility] [place] [facility] [address] [id number] [place] [address]- 8952 Dec, [facility] [place] [facility] [address] [id number] [place] [address]- 4614 Dec, [facility] [place] [facility] [address] [id number] [place] [address]- 5458 Nov, [facility] [place] [facility] [address] [id number] [place] [address]- 2746 Nov, [facility] [place] [facility] [address] [id number] [place] [address]- 4923 Nov, [facility] [place] [facility] [address] [id number] [place] [address]- 6670 Nov, [facility] [place] [facility] [address] [id number] [place] [address]- 3742 Oct, [facility] [place] [facility] [address] [id number] [place] [address]- 7276 Oct, [facility] [place] [facility] [address] [id number] [place] [address]- 6758 Oct, [facility] [place] [facility] [address] [id number] [place] [address]- 7008 Oct, [facility] [address] [id number] [place] [address]- 3238 Oct, [facility] [address] [id number] [place] [address]- 0038 September, [facility] [address] [id number] [place] [address]- 1344 September, [facility] [address] [id number] [place] [address]- 0818 September, [facility] [address] [id number] [place] [address]- 7815 September, [facility] [address] [id number] [place] [address]- 5920 September, [facility] [address] [id number] [place] [address]- 2479 September, [facility] [address] [id number] [place] [address]- 9944 September, [facility] [address] [id number] [place] [address]- 8608 September, [facility] [address] [id number] [place] [address]- 3170 Aug, [facility] [address] [id number] [place] [address]- 4058 Aug, [facility] [place] [facility] [address] [id number] [place] [address]- 2860 Aug, [facility] [place] [facility] [address] [id number] [place] [address]- 9105 Aug, [facility] [place] [facility] [address] [id number] [place] [address]- 3460 Aug, [facility] [address] [id number] [place] [address]- 3000 17 Aug, 2011 [facility] [place] [facility] [address] [id number] [place] [address]- 2215 13 Aug, 2011 [facility] [place] [facility] [address] [id number] [place] [address]- 7596 12 Aug, 2011 [facility] [place] [facility] [address] [id number] [place] [address]- 5286 10 Aug, 2011 [facility] [place] [facility] [address] [id number] [place] [address]- 4956 09 Aug, 2011 [facility] [place] [facility] [address] [id number] [place] [address]- 8416 02 Aug, 2011 [facility] [place] [facility] [address] [id number] [place] [address]- 6205 02 Aug, 2011 [facility] [place] [facility] [address] [id number] [place] [address]- 7646 29 Jul, 2011 [facility] [place] [facility] [address] [id number] [place] [address]- 0255 28 Jul, 2011 [facility] [place] [facility] [address] [id number] [place] [address]- 0273 27 Jul, 2011 [facility] [place] [facility] [address] [id number] [place] [address]- 1924 23 Jul, 2011 [facility] [place] [facility] [address] [id number] [place] [address]- 7992 21 Jul, 2011 [facility] [place] [facility] [address] [id number] [place] [address]- 9743 21 Jul, 2011 [facility] [place] [facility] [address] [id number] [place] [address]- 7726 14 Jul, 2011 [facility] [place] [facility] [address] [id number] [place] [address]- 2926 13 Jul, 2011 [facility] [place] [facility] [address] [id number] [place] [address]- 1566 07 Jul, 2011 [facility] [place] [facility] [address] [id number] [place] [address]- 3522 Jun, [facility] [address] [id number] [place] [address]- 4206 Jun, [facility] [place] [facility] [address] [id number] [place] [address]- 0426 Jun, [facility] [place] [facility] [address] [facility] [id number] [place] [address]- 8256 Jun, [facility] [place] [facility] [address] [id number] [place] [address]- 2351 Jun, [facility] [place] [facility] [address] [id number] [place] [address]- 6166 Jun, [facility] [place] [facility] [address] [facility] [id number] [place] [address]- 8246 Jun, [facility] [id number] [place] [address]- 9882 May, [facility] [place] [facility] [address] [facility] [id number] [place] [address]- 9967 May, [facility] [address] [id number] [place] [address]- 3945 May, [facility] [place] [facility] [address] [facility] [id number] [place] [address]- 0637 May, [facility] [address] [facility] [id number] [place] [address]- 9379 May, [facility] [place] [facility] [address] [facility] [id number], [place] [address]- 6511 May, [facility] [place] [facility] [address] [facility] [id number] [place] [address]- 1739 May, [facility] [place] [facility] [address] [facility] [id number] [place] [address]- 2936 Apr, [facility] [place] [facility] [address] [facility] [id number] [place] [address]- 5706 Apr, [facility] [place] [facility] [address] [id number] [place] [address]- 8755 Apr, [facility] [place] [facility] [address] [id number] [place] [address]- 2816 Apr, [facility] [place] [facility] [address] [id number] [place] [address]- 8026 Apr, [facility] [place] [facility] [address] [id number] [place] [address]- 2356 Apr, [facility] [place] [facility] [address] [id number] [place] [address]- 8928 Apr, [facility] [place] [facility] [address] [id number] [place] [address]- 0861 Apr, [facility] [place] [facility] [address] [id number] [place] [address]- 2720 Apr, [facility] [place] [facility] [address] [id number] [place] [address]- 6051 Mar, [facility] [place] [facility] [address] [id number] [place] [address]- 4164 Mar, [facility] [place] [facility] [address] [id number] [place] [address]- 3527 Mar, [facility] [place] [facility] [address] [id number] [place] [address]- 6736 Mar, [facility] [place] [facility] [address] [id number] [place] [address]- 5994 Mar, [facility] [place] [facility] [address] [id number] [place] [address]- 6899 Feb, [facility] [place] [facility] [address] [id number] [place] [address]- 1206 Feb, [facility] [place] [facility] [address] [id number] [place] [address]- 5910 Feb, [facility] [place] [facility] [address] [id number] [place] [address]- 2826 Dec, [facility] [address] [id number] [place] [address]- 5217 Nov, [facility] [place] [facility] [address] [id number] [place] [address]- 2726 Apr, [facility] [place] [facility] [address] [id number] [place] [address]- 3196 Apr, [facility] [place] [facility] [address] [id number] [place] [address]- 0337 16 Apr, 2010 [facility] [place] [facility] [address] [id number] [place] [address]- 5661 Apr, [facility] [place] [facility] [address] [id number] [place] [address]- 6066 Apr, [facility] [place] [facility] [address] [id number] [place] [address]- 7784 Apr, [facility] [place] [facility] [address] [id number] [place] [address]- 9957 Apr, [facility] [place] [facility] [address] [id number] [place] [address]- 3308 Apr, [facility] [place] [facility] [address] [id number] [place] [address]- 9998 Mar, [facility] [place] [facility] [address] [id number], [place] [address]- 9688 Mar, [facility] [place] [facility] [address] [id number], [place] [address]- 7795 Mar, [facility] [place] [facility] [address] [id number] [place] [address]- 5139 Mar, [facility] [place] [facility] [address] [id number], [place] [address]- 2534 Mar, [facility] [place] [facility] [address] [id number] [place] [address]- 7700 Mar, [facility] [place] [facility] [address] [facility] [id number] [place] [address]- 6668 15 Mar, 2010 [facility] [address] [facility] [id number], [place] [address]- 3218 Mar, [facility] [address] [facility] [id number], [place] [address]- 4852 Mar, [facility] [address] [facility] [id number], [place] [address]- 6839 Mar, IMMUNIZATIONS No Known Immunizations SOCIAL HISTORY Never Assessed REASON FOR VISIT DIABETES-tcuppettRN, -Bp elevated today. Pt reports forgot medication this am. PLAN OF CARE Activity Details Follow Up 4 Weeks Reason: VITAL SIGNS Height 66 in 2017-04-14 Weight 322.3 lbs 2017-04-14 Temperature 98.2 degrees Fahrenheit 2017-04-14 Heart Rate 76 bpm 2017-04-14 Respiratory Rate 20 2017-04-14 BMI 52.01 kg/m2 2017-04-14 Blood pressure systolic 164 mmHg 2017-04-14 Blood pressure diastolic 102 mmHg 2017-04-14 MEDICATIONS Medication Instructions Dosage Frequency Start Date End Date Duration Status Fish Oil 1000 MG Orally 3 times a day 1 capsule 8h Active Vitamin D3 5000 UNIT Orally Once a day 24h Active Rosuvastatin Calcium 20 mg Orally Once a day 1 tablet 24h Apr, 90 days Active Aspirin 81 mg take 1 tablet (81 mg) by oral route once daily September, Active Alavert 10 mg take 1 tablet (10 mg) by oral route once daily September, Active Simbrinza 1-0.2 % Ophthalmic Three times a day 1 drop into affected eye 8h Active Metoprolol Tartrate 25 MG Orally Twice a day 1 tablet 12h 30 days Active Calcium Carbonate-Vitamin D3 600-400 MG-UNIT Orally 3 times a day 8h Active Nitroglycerin 0.[address] 1 tablet (0.4 mg) by sublingual route at the 1st sign of attack; may repeat every 5 min until relief; if pain persists after 3 tablets in 15 min, prompt medical attention is recommendedPRN Mar, Not-Taking Arginine 1000 MG Orally 3 times a day 2 tablets 8h Active Vitamin D2 50,000 unit take 1 capsule (50,000 unit) by oral route once weekly for 12 weeks Jan, Not-Taking Neurontin 100 mg Orally 3 times a day 1 capsule 8h 30 Active Torsemide 100 MG Orally Once a day 1 tablet 24h Active NovoLog Flexpen 100 unit/mL Subcutaneous 3 times a day 10 units before meals 8h 13 Jul, 2014 Active Magnesium Oxide 250 MG Orally Once a day 1 tablet 24h Active Refresh Optive 0.5-0.9 % Active Lomotil 2.5-0.025 MG Orally Four times a day 1 tablet as needed 6h Active Plavix 75 MG TAKE ONE TABLET BY MOUTH DAILY 30 Active Levemir Flexpen 100 UNIT/ML subcutaneously 2 times a day 20 units 12h Active Flaxseed Oil 1000 MG Active Multivitamin Adult - Active Losartan Potassium 100 MG Orally Once a day 1 tablet 24h Active RESULTS Name Result Date Reference Range MRI : Foot, Left 2017-04-19 Mammogram, Bilateral Screening 2017-04-19 PROCEDURES Procedure Date Ordered Result Body Site [facility] VISIT ESTABLISHED PATIENT Apr 14, 2017 INSTRUCTIONS MEDICATIONS ADMINISTERED No Known [...]
[2018-04-22 23:24] LABS: ALANINE AMINOTRANSFERASE 38 U/L (0-55); ALBUMIN 2.6 GM/DL (3.2-4.5); ALKALINE PHOSPHATASE 212 U/L (40-136); BILIRUBIN,TOTAL 0.3 MG/DL (0.1-1.0); BUN/CREATININE RATIO 26; CALCIUM 10.1 MG/DL (8.5-10.1); CARBON DIOXIDE 27 MMOL/L (21-32); CHLORIDE 99 MMOL/L (98-107); CREATININE SERUM 2.17 MG/DL (0.60-1.30); GFR ESTIMATED 23; GLUCOSE 325 MG/DL (70-105); SODIUM 137 MMOL/L (135-145)
--- OUTSIDE RECORDS SUMMARY | 2018-04-22 23:24 | XMS REPORT ---
Author Author MARY FRAGOSO [facility] Address [address] [place] [address] Care Team Providers Care Melt Helper Name Role Phone MARY FRAGOSO Unavailable PROBLEMS Type Condition ICD9-CM Code [id number] Code Onset Dates Condition Status SNOMED Code Problem Severe sleep apnea G47.30 Active 75723870 Problem Chronic kidney disease, stage 3 (moderate) N18.3 Active 337782954 Problem Decreased diffusion capacity R94.2 Active 10137318 Problem Anemia in other chronic diseases classified elsewhere D63.8 Active 610679971 Problem Stenosis of carotid artery, unspecified laterality I65.29 Active 46628466 Problem Type 2 diabetes mellitus with diabetic polyneuropathy E11.42 Active 707804560 Problem Trochanteric bursitis of left hip M70.62 Active [id number] Problem Diarrhea, unspecified type R19.7 Active 34856373 Problem Anxiety about health F41.8 Active 484708244 Problem Transient cerebral ischemia, unspecified type G45.9 Active 821051670 Problem Aortic valve sclerosis I35.8 Active 21681968 Problem Generalized osteoarthritis M15.9 Active 285511707 Problem Coronary artery disease involving zuni coronary artery of zuni heart, angina presence unspecified I25.10 Active 8669664715508 Problem Hypoxemia R09.02 Active 393455779 Problem Presence of IVC filter Z95.828 Active 800548086 Problem Port catheter in place Z95.828 Active 984004452 Problem BMI 50.0-59.9, adult Z68.43 Active 027580376 Problem Mixed hyperlipidemia E78.2 Active 231536269 Problem Type 2 diabetes mellitus with hyperglycemia E11.65 Active 89626841 Problem Essential hypertension I10 Active 88725779 Problem Iron deficiency anemia, unspecified iron deficiency anemia type D50.9 Active 94629807 Problem Type 2 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 Active 71294558 Problem Renal osteodystrophy N25.0 Active 21939299 Problem Type 2 diabetes mellitus with foot ulcer E11.621 Active 394405039 Problem 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 Active 5512494 ALLERGIES No Information ENCOUNTERS Encounter Location Date Diagnosis [facility] [id number] [place] [address] 60150- 7145 Oct, [facility] [id number] [place] [address] 03219- 8971 Oct, [facility] [id number] [place] [address] 93818- 1759 Oct, [facility] [id number] [place] [address] 28376 -0369 September, BMI 50.0-59.9, adult Z68.43 [facility] [id number] [place] [address] 01873- 5621 September, [facility] [address] 49415- 8496 September, [facility] [id number] [place] [address] 12634- 9699 Aug, Type 2 diabetes mellitus with foot ulcer E11.621 ; Transient cerebral ischemia, unspecified type G45.9 ; Essential hypertension I10 ; Mixed hyperlipidemia E78.2 and BMI 50.0-59.9, adult Z68.43 [facility] [id number] [place] [address] 11538- 5467 Aug, [facility] [id number] [place] [address] 24831- 4463 14 Jul, 2017 Anxiety about health F41.8 and Mixed hyperlipidemia E78.2 [facility] [id number] [place] [address] 47880- 0585 Jul, [facility] [id number] [place] [address] 47898- 4491 Jun, [facility] [id number] [place] [address] 51095- 2664 12 Jun, 2018 Type 2 diabetes mellitus with hyperglycemia E11.65 ; Type 2 diabetes mellitus with foot ulcer E11.621 ; Port catheter in place Z95.828 ; 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 ; Contact with and (suspected) exposure to potentially hazardous body fluids Z77.21 and BMI 50.0-59.9, adult Z68.43 [facility] [id number] [place] [address] 89048- 6292 May, [facility] [facility] [address] 49749- 1085 May, Open wound of right great toe, subsequent encounter S91.101D [facility] [facility] [address] 09956- 5945 May, [facility] [id number] [place] [address] 58017- 1397 Apr, [facility] [id number] [place] [address] 21814- 2968 15 Apr, 2017 [facility] [id number] [place] [address] 77361- 5301 14 Apr, 2017 [facility] [id number] [place] [address] 82140- 2383 14 Apr, 2017 Type 2 diabetes mellitus with diabetic polyneuropathy E11.42 [facility] [id number] [place] [address] 22980- 7761 13 Apr, 2017 Open wound of right great toe, subsequent encounter S91.101D [facility] [id number] [place] [address] 28764- 6054 08 Apr, 2017 Open wound of right great toe, subsequent encounter S91.101D ; Breast pain, left N64.4 ; Breast cancer screening Z12.31 ; Type 2 diabetes mellitus with foot ulcer E11.621 ; Essential hypertension I10 and BMI 50.0-59.9, adult Z68.43 [facility] [id number] [place] [address] 67958- 3405 Mar, Encounter for immunization Z23 [facility] [id number] [place] [address] 95958- 6315 Mar, [place] [address] 58751- 6001 Mar, [facility] [address] 33979- 2773 Mar, Type 2 diabetes mellitus with diabetic polyneuropathy E11.42 ; Type 2 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 ; Type 2 diabetes mellitus with foot ulcer E11.621 ; Essential hypertension I10 ; Hypoxemia R09.02 and Generalized osteoarthritis M15.9 [place] [address] 53266- 4316 Mar, Chronic kidney disease, stage 3 (moderate) N18.3 ; Acute cystitis without hematuria N30.00 ; Essential hypertension I10 ; Muscle spasms of neck M62.838 ; Type 2 diabetes mellitus with diabetic polyneuropathy E11.42 and BMI 50.0-59.9, adult Z68.43 [facility] [id number] [place] [address] 13999- 4310 Feb, [facility] [id number] [place] [address] 25805 -7181 Feb, [facility] [id number] [place] [address] 03343- 0288 Feb, [facility] [id number] [place] [address] 42403- 8567 Feb, [facility] [id number] [place] [address] 39538- 9639 Feb, [place] [address] 52546- 4598 Feb, [facility] [id number] [place] [address] 96129- 8553 Feb, Mixed hyperlipidemia E78.2 [place] [address] [address]- 0446 Feb, [facility] [address] [address]- 4942 Jan, [facility] [address] [address]- 0582 14 Jan, 2017 Generalized osteoarthritis M15.9 [facility] [id number] [place] [address] 02448- 9296 Oct, [facility] [address] [address]- 6269 Jul, [facility] [id number] [place] [address] 01241- 9736 Jul, [facility] [address] [address]- 9984 Jul, Type 2 diabetes mellitus with hyperglycemia E11.65 ; Chronic kidney disease, stage 3 (moderate) N18.3 ; Type 2 diabetes mellitus with foot ulcer E11.621 ; Type 2 diabetes mellitus with diabetic polyneuropathy E11.42 ; Generalized osteoarthritis M15.9 ; Trochanteric bursitis of left hip M70.62 and Tinea pedis of both feet B35.3 [facility] [address] [address]- 3133 Jun, [facility] [address] [address]- 2196 Apr, [facility] [address] [address]- 1089 Apr, [facility] [id number] [place] [address] 37984- 3817 Mar, [facility] [address], [place] [address]- 4039 Feb, Encounter for immunization Z23 [facility] [id number] [place] [address] 92579- 7853 Feb, [facility] [id number] [place] [address] 25872- 1070 14 Feb, 2016 Type 2 diabetes mellitus with hyperglycemia E11.65 ; Encounter for immunization Z23 ; Diarrhea, unspecified type R19.7 ; Essential hypertension I10 ; Mixed hyperlipidemia E78.2 ; Hypoxia R09.02 ; 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 and Type 2 diabetes mellitus with foot ulcer E11.621 [facility] [id number] [place] [address] 12246- 3843 Jan, [facility] [id number] [place] [address] 65490- 1607 Jan, Type 2 diabetes mellitus with hyperglycemia E11.65 and Pneumonia due to infectious organism, unspecified laterality, unspecified part of lung J18.9 [facility] [id number] [place] [address] 05529- 0408 Jan, [facility] [id number] [place] [address] 96191- 2789 Jan, [facility] [id number] [place] [address] 91198- 1377 Oct, Type 2 diabetes mellitus with hyperglycemia E11.65 ; Generalized osteoarthritis M15.9 and Chronic prescription opiate use Z79.891 [facility] [id number] [place] [address] 98377- 5900 September, [facility] [id number] [place] [address] 18383- 5367 Aug, [facility] [id number] [place] [address] 28217- 1719 Aug, [facility] [id number] [place] [address] 48822- 3932 Aug, [facility] [id number] [place] [address] 45315- 7858 Aug, [facility] [id number] [place] [address] 77588- 9689 Jun, [facility] [id number] [place] [address] 36803- 6764 Jun, Type 2 diabetes mellitus with hyperglycemia E11.65 ; Mixed hyperlipidemia E78.2 ; Vaginal itching L29.8 ; Neck muscle spasm M62.838 and Skin abrasion T14.8 [place] [address] 93960- 5441 Apr, [place] [address] 76459- 4555 Apr, [place] [address] 38385- 3119 Mar, [facility] [id number] [place] [address] 75541- 3723 Feb, [address] 55934- 6943 Feb, Type 2 diabetes mellitus with hyperglycemia E11.65 ; Type 2 diabetes mellitus with foot ulcer E11.621 ; Type 2 diabetes mellitus with diabetic polyneuropathy E11.42 and Encounter for immunization Z23 [facility] [id number] [place] [address] 61684- 9448 Jan, Hypertension 401.9 ; Uncontrolled type 2 diabetes mellitus 250.02 ; Right shoulder pain 719.41 and Ulcer of heel and midfoot 707.14 [place] [id number] [place] [address] 64589- 5180 Dec, Diabetes with other specified manifestations, type II or unspecified type, not stated as uncontrolled 250.80 ; Ulcer of heel and midfoot 707.14 ; Hypertension 401.9 ; Hip pain, left 719.45 and Acute anxiety 300.00 [place] [id number] [place] [address] 43889- 9399 Nov, [place] [id number] [place] [address] 20629- 0257 Nov, [facility] [address] [id number] [place] [address]- 0533 September, Anxiety attack 300.01 and Cellulitis 682.9 [facility] [address] [id number] [place] 3966 September, [facility] [address] [id number] [place] [address]- 2547 September, [facility] [address] [id number] [place] [address]- 9317 September, [facility] [address] [id number] [place] [address]- 3025 Aug, [facility] [address] [id number] [place] [address]- 8941 Aug, [facility] [address] [id number] [place] [address]- 1948 Jul, [facility] [address] [id number] [place] [address]- 5626 Jul, [facility] [address] [id number] [place] [address]- 1493 Jul, [facility] [address] [id number] [place] [address]- 5708 May, [facility] [address] [id number] [place] [address]- 0222 May, [facility] [address] [id number] [place] [address]- 9309 Mar, [facility] [place] [facility] [address] [id number] [place] 1450 Mar, [facility] [address] [id number] [place] 2017 Mar, [facility] [place] [facility] [address] [id number] [place] [address]- 1870 Mar, [facility] [address] [id number] [place] [address]- 6937 07 Mar, 2014 [facility] [place] [facility] [address] [id number] [place] [address]- 1756 07 Mar, 2014 [facility] [place] [facility] [address] [id number] [place] [address]- 9724 Mar, [facility] [place] [facility] [address] [id number] [place] [address]- 2843 14 Feb, 2014 [facility] [place] [facility] [address] [id number] [place] [address]- 9172 14 Feb, 2014 [facility] [place] [facility] [address] [id number] [place] [address]- 6240 30 Jan, 2013 [facility] [place] [facility] [address] [id number] [place] [address]- 9962 30 Sep, 2013 [facility] [place] [facility] [address] [id number] [place] [address]- 2544 26 Jan, 2013 [facility] [place] [facility] [address] [id number] [place] [address]- 2540 26 Sep, 2013 [facility] [place] [facility] [address] [id number] [place] [address]- 2549 25 Jan, 2013 [facility] [place] [facility] [address] [id number] [place] [address]- 2544 25 Sep, 2013 [facility] [place] [facility] [address] [id number] [place] [address] 2544 25 Sep, 2013 [facility] [place] [facility] [address] [id number] [place] [address]- 2543 25 Sep, 2013 [facility] [place] [facility] [address] [id number] [place] [address] 2546 18 Sep, 2013 [facility] [place] [facility] [address] [id number] [place] [address]- 2545 18 Sep, 2013 [facility] [place] [facility] [address] [id number] [place] [address]- 8275 06 Sep, 2013 [facility] [place] [facility] [address] [id number] [place] [address]- 0363 06 Sep, 2013 [facility] [place] [facility] [address] [id number] [place] [address]- 9342 Sep, 2013 [facility] [place] [facility] [address] [id number] [place] [address]- 5627 Sep, 2013 [facility] [place] [facility] [address] [id number] [place] [address]- 7947 Sep, 2013 [facility] [place] [facility] [address] [id number] [place] [address]- 2414 Sep, 2013 [facility] [place] [facility] [address] [id number] [place] [address]- 2876 Jan, 2013 [facility] [place] [facility] [address] [id number] [place] [address]- 3579 Jan, 2013 [facility] [place] [facility] [address] [id number] [place] [address]- 8018 Dec, 2013 [facility] [place] [facility] [address] [id number] [place] [address]- 9877 Dec, 2013 [facility] [place] [facility] [address] [id number] [place] [address]- 3869 Dec, 2013 [facility] [place] [facility] [address] [id number] [address]- 8088 Dec, 2013 [facility] [place] [facility] [address] [id number], [place] [address]- 8492 Dec, [facility] [place] [facility] [address] [id number] [place] [address]- 6418 Dec, [facility] [place] [facility] [address] [id number] [place] [address]- 7371 Dec, [facility] [place] [facility] [address] [id number], [place] [address]- 8068 Dec, 2013 [facility] [place] [facility] [address] [id number], [place] [address]- 1448 Dec, [facility] [place] [facility] [address] [id number] [place] [address]- 8879 Dec, [facility] [place] [facility] [address] [id number] [place] [address]- 5020 Nov, [facility] [place] [facility] [address] [id number] [place] [address]- 7312 Nov, [facility] [place] [facility] [address] [id number] [place] [address]- 7161 Nov, [facility] [place] [facility] [address] [id number] [place] [address]- 5959 Nov, [facility] [place] [facility] [address] [id number] [place] [address]- 3988 Nov, [facility] [place] [facility] [address] [id number] [place] [address]- 3847 Nov, [facility] [place] [facility] [address] [id number] [place] [address]- 5859 Oct, [facility] [place] [facility] [address] [id number] [place] [address]- 5176 Oct, [facility] [place] [facility] [address] [id number] [place] [address]- 2873 Oct, [facility] [place] [facility] [address] [id number] [place] [address]- 5704 Oct, [facility] [place] [facility] [address] [id number] [place] [address]- 0832 Oct, [facility] [place] [facility] [address] [id number] [place] [address]- 1172 Oct, [facility] [place] [facility] [address] [id number] [place] [address]- 4747 Oct, [facility] [place] [facility] [address] [id number] [place] [address]- 3977 Oct, [facility] [place] [facility] [address] [id number] [place] [address]- 2766 Oct, [facility] [place] [facility] [address] [id number] [place] [address]- 4570 Oct, [facility] [place] [facility] [address] [id number] [place] [address]- 4436 Oct, [facility] [place] [facility] [address] [id number] [place] [address]- 5116 Oct, [facility] [place] [facility] [address] [id number] [place] [address]- 1482 September, [facility] [place] [facility] [address] [id number] [place] [address]- 2658 September, [facility] [place] [facility] [address] [id number] [place] [address]- 4511 September, [facility] [place] [facility] [address] [id number] [place] [address]- 2511 Aug, [facility] [place] [facility] [address] [id number] [place] [address]- 7765 Aug, [facility] [place] [facility] [address] [id number] [place] [address]- 5179 Jul, [facility] [place] [facility] [address] [id number] [place] [address]- 9682 Jul, [facility] [place] [facility] [address] [id number] [place] [address]- 5186 Jul, [facility] [place] [facility] [address] [id number] [place] [address]- 0240 10 Jul, 2013 [facility] [place] [facility] [address] [id number] [place] [address]- 4455 08 Jul, 2013 [facility] [place] [facility] [address] [id number] [place] [address]- 8050 08 Jul, 2013 [facility] [place] [facility] [address] [id number] [place] [address]- 2875 Jul, [facility] [place] [facility] [address] [id number] [place] [address]- 4800 Jul, [facility] [place] [facility] [address] [id number] [place] [address]- 9449 Jul, [facility] [place] [facility] [address] [id number] [place] 4623 Jul, [facility] [place] [facility] [address] [id number] [place] [address]- 2465 Jun, [facility] [place] [facility] [address] [id number] [place] [address]- 2164 Jun, [facility] [place] [facility] [address] [id number] [place] [address]- 5428 Jun, [facility] [place] [facility] [address] [id number] [place] [address]- 8575 Jun, [facility] [place] [facility] [address] [id number] [place] [address]- 4069 May, [facility] [place] [facility] [address] [id number] [place] [address]- 3465 May, [facility] [place] [facility] [address] [id number] [place] [address]- 5938 Apr, [facility] [place] [facility] [address] [id number] [place] [address]- 9974 Apr, [facility] [place] [facility] [address] [id number] [place] [address]- 0335 Apr, [facility] [place] [facility] [address] [id number] [place] [address]- 5145 Apr, [facility] [place] [facility] [address] [id number] [place] [address]- 9016 Apr, [facility] [place] [facility] [address] [id number] [place] [address]- 3765 Apr, [facility] [place] [facility] [address] [id number] [place] [address] Apr, [facility] [address] [id number] [place] [address] Apr, [facility] [place] [facility] [address] [id number] [place] [address] Mar, [facility] [address] [id number] [place] [address] Mar, [facility] [place] [facility] [address] [id number] [place] [address] Mar, [facility] [place] [facility] [address] [id number] [place] [address] Mar, [facility] [place] [facility] [address] [id number] [place] [address] Mar, [facility] [place] [facility] [address] [id number] [place] [address] Mar, [facility] [address] [id number] [place] [address] Feb, [facility] [place] [facility] [address] [id number] [place] [address] 30 Feb, 2013 [facility] [address] [facility] [id number] [place] [address] Feb, [facility] [place] [facility] [address] [id number] [place] [address] 18 Feb, 2013 [facility] [place] [facility] [address] [id number], [place] [address] Feb, [facility] [place] [facility] [address] [id number] [place] [address] 14 Feb, 2013 [facility] [place] [facility] [address] [id number] [place] [address] Feb, [facility] [place] [facility] [address] [id number] [place] [address] Jan, [facility] [place] [facility] [address] [id number] [place] [address] Jan, [facility] [place] [facility] [address] [id number] [place] [address] Jan, [facility] [place] [facility] [address] [id number] [place] [address] Jan, [facility] [place] [facility] [address] [id number] [place] [address] Dec, [facility] [place] [facility] [address] [id number] [place] [address] Dec, [facility] [place] [facility] [address] [id number] [place] [address] Dec, [facility] [place] [facility] [address] [id number] [place] [address] Nov, [facility] [place] [facility] [address] [id number] [place] [address] Nov, [facility] [place] [facility] [address] [id number] [place] [address] Nov, [facility] [place] [facility] [address] [id number] [place] [address] Nov, [facility] [place] [facility] [address] [id number] [place] [address] Nov, [facility] [place] [facility] [address] [id number], [place] [address] Nov, [facility] [place] [facility] [address] [id number] [place] [address] Oct, [facility] [place] [facility] [address] [id number] [place] [address] Oct, [facility] [place] [facility] [address] [id number] [place] [address] Oct, [facility] [place] [facility] [address] [id number], [place] [address] Oct, [facility] [address] [id number] [place] [address] Oct, [facility] [address] [id number] [place] [address] Oct, [facility] [address] [id number] [place] [address] September, [facility] [address] [id number] [place] [address] September, [facility] [address] [id number] [place] [address] September, [facility] [address] [id number] [place] [address] September, [facility] [address] [id number] [place] [address] Aug, [facility] [address] [id number] [place] [address] Aug, [facility] [address] [id number] [place] [address] 1763 Jul, [facility] [address] [id number] [place] [address] Jul, [facility] [address] [id number] [place] [address] 8876 18 Jul, 2012 [facility] [address] [id number] [place] [address]237 15 Jul, 2012 [facility] [address] [id number] [place] [address] 7035 13 Jul, 2012 [facility] [address] [id number] [place] [address] 0851 08 Jul, 2012 [facility] [address] [id number] [place] [address] Jun, [facility] [address] [id number] [place] [address]237 13 Jun, 2012 [facility] [address] [id number] [place] [address] 1319 May, [facility] [place] [facility] [address] [id number] [place] [address] 4[address] May, [facility] [address] [id number] [place] [address] 9198 Apr, [facility] [address] [id number] [place] [address] 5023 Apr, [facility] [place] [facility] [address] [id number] [place] [address] 9596 Apr, [facility] [address] [id number] [place] [address] 5[address] Apr, [facility] [address] [id number] [place] [address] 2672 Apr, [facility] [address] [id number] [place] [address] 1709 Apr, [facility] [address] [id number] [place] [address] 9[address] Apr, [facility] [place] [facility] [address] [id number] [place] [address] 7741 Apr, [facility] [place] [facility] [address] [id number] [place] [address] 0031 Apr, [facility] [place] [facility] [address] [id number] [place] [address] 7694 Apr, [facility] [place] [facility] [address] [id number] [place] [address] 8303 Apr, [facility] [place] [facility] [address] [id number] [place] [address] 2058 Apr, [facility] [place] [facility] [address] [id number] [place] [address] 05 Apr, 2012 [facility] [place] [facility] [address] [id number] [place] [address] 6056 05 Apr, 2012 [facility] [place] [facility] [address] [id number] [place] [address] 5320 Apr, [facility] [place] [facility] [address] [facility] [id number] [place] [address] Apr, [facility] [place] [facility] [address] [id number] [place] [address] 0639 Mar, [facility] [place] [facility] [address] [id number] [place] [address] 5325 Mar, [facility] [place] [facility] [address] [facility] [id number] [place] [address] 1582 Mar, [facility] [place] [facility] [address] [facility] [id number] [place] [address] 1354 Mar, [facility] [place] [facility] [address] [id number], [place] [address] Mar, [facility] [place] [facility] [address] [id number], [place] [address] 3209 Mar, [facility] [place] [facility] [address] [facility] [id number], [place] [address] 6947 Mar, [facility] [place] [facility] [address] [id number], [place] [address] 9241 Mar, [facility] [place] [facility] [address] [id number], [place] [address] 5368 Mar, [facility] [place] [facility] [address] [id number], [place] [address] 7614 Mar, [facility] [place] [facility] [address] [facility] [id number], [place] [address] 1311 Feb, [facility] [place] [facility] [address] [facility] [id number], [place] [address]- [address]21 Feb, [facility] [place] [facility] [address] [id number] [place] [address] 0364 Feb, [facility] [address] [id number] [place] [address] 7539 Feb, [facility] [place] [facility] [address] [id number] [place] [address] 2547 Feb, [facility] [place] [facility] [address] [id number] [place] [address]- 9691 Feb, [facility] [place] [facility] [address] [id number] [place] [address] 5049 Jan, [facility] [place] [facility] [address] [id number] [place] [address] 2939 Dec, [facility] [place] [facility] [address] [id number] [place] [address]- 9468 Dec, [facility] [place] [facility] [address] [id number] [place] [address] 3371 Dec, [facility] [place] [facility] [address] [id number] [place] [address]- 3184 Dec, [facility] [place] [facility] [address] [id number] [place] [address]- 0126 Nov, [facility] [place] [facility] [address] [id number] [place] [address]- 7661 Nov, [facility] [place] [facility] [address] [id number] [place] [address]- 8969 Nov, [facility] [place] [facility] [address] [id number] [place] [address]- 5569 Nov, [facility] [place] [facility] [address] [id number] [place] [address] 7138 Oct, [facility] [place] [facility] [address] [id number] [place] [address] 5607 Oct, [facility] [place] [facility] [address] [id number] [place] [address]- 5002 Oct, [facility] [place] [facility] [address] [id number] [place] [address] 7614 Oct, [facility] [address] [id number] [place] [address] 2766 Oct, [facility] [address] [id number] [place] [address] September, [facility] [place] [facility] [address] [id number] [place] [address]- 0340 September, [facility] [address] [id number] [place] [address] 6198 September, [facility] [address] [id number] [place] [address]- 5762 September, [facility] [address] [id number] [place] [address]- 4390 September, [facility] [address] [id number] [place] [address]- 7151 September, [facility] [address] [id number] [place] [address]- 0785 September, [facility] [address] [id number] [place] [address]- 8735 September, [facility] [place] [facility] [address] [id number] [place] [address]- 3293 Aug, [facility] [place] [facility] [address] [id number] [place] [address]- 5141 Aug, [facility] [place] [facility] [address] [id number] [place] [address]- 2300 Aug, [facility] [place] [facility] [address] [id number] [place] [address]- 9742 Aug, [facility] [place] [facility] [address] [id number] [place] [address] Aug, [facility] [place] [facility] [address] [id number] [place] [address]- 5487 17 Aug, 2011 [facility] [address] [id number] [place] [address]- 0813 13 Aug, 2011 [facility] [place] [facility] [address] [id number] [place] [address]- 5206 12 Aug, 2011 [facility] [place] [facility] [address] [id number] [place] [address]- 9398 10 Aug, 2011 [facility] [place] [facility] [address] [id number] [place] [address]- 0819 09 Aug, 2011 [facility] [place] [facility] [address] [id number] [place] [address]- 3879 Aug, [facility] [place] [facility] [address] [id number] [place] [address]- 9019 02 Aug, 2011 [facility] [address] [id number] [place] [address]- 2625 29 Jul, 2011 [facility] [place] [facility] [address] [id number] [place] [address]- 9536 28 Jul, 2011 [facility] [place] [facility] [address] [id number] [place] [address]- 5429 27 Jul, 2011 [facility] [place] [facility] [address] [id number] [place] [address]- 1472 23 Jul, 2011 [facility] [place] [facility] [address] [id number] [place] [address]- 6516 21 Jul, 2011 [facility] [place] [facility] [address] [id number] [place] [address]- 2759 21 Jul, 2011 [facility] [place] [facility] [address] [id number] [place] [address]- 8944 14 Jul, 2011 [facility] [place] [facility] [address] [id number] [place] [address]- 8869 13 Jul, 2011 [facility] [place] [facility] [address] [id number] [place] [address]- 5815 07 Jul, 2011 [facility] [place] [facility] [address] [id number] [place] [address]- 5415 24 Jun, 2011 [facility] [place] [facility] [address] [id number] [place] [address]- 9406 Jun, [facility] [place] [facility] [address] [id number] [place] [address]- 0756 Jun, [facility] [place] [facility] [address] [id number] [place] [address]- 2748 14 Jun, 2011 [facility] [place] [facility] [address] [id number] [place] [address]- 8152 Jun, [facility] [place] [facility] [address] [id number] [place] [address]- 5223 Jun, [facility] [address] [id number] [place] [address]- 6854 Jun, [facility] [address] [id number] [place] [address]- 5725 May, [facility] [place] [facility] [address] [id number] [place] [address]- 8917 May, [facility] [place] [facility] [address] [id number] [place] [address]- 5680 May, [facility] [place] [facility] [address] [id number] [place] [address]- 3089 May, [facility] [place] [facility] [address] [id number] [place] [address]- 6294 May, [facility] [place] [facility] [address] [id number] [place] [address]- 3169 May, [facility] [place] [facility] [address] [id number] [place] [address]- 8438 May, [facility] [place] [facility] [address] [id number] [place] [address]- 1302 Apr, [facility] [place] [facility] [address] [id number], [place] [address]- 3497 30 Apr, 2011 [facility] [place] [facility] [address] [id number] [place] [address]- 0860 Apr, [facility] [place] [facility] [address] [id number] [place] [address] Apr, [facility] [place] [facility] [address] [id number] [place] [address]- 6986 Apr, [facility] [place] [facility] [address] [id number] [place]227 Apr, [facility] [place] [facility] [address] [id number] [place] [address]- 1611 Apr, [facility] [place] [facility] [address] [id number] [place] [address]- 5733 Apr, [facility] [place] [facility] [address] [id number] [place] [address]- 5421 Apr, [facility] [place] [facility] [address] [id number] [place] [address]- 6003 Mar, [facility] [place] [facility] [address] [id number] [place] [address]- 4189 Mar, [facility] [place] [facility] [address] [id number] [place] [address]- 8830 Mar, [facility] [place] [facility] [address] [id number], [place] [address]- 7941 Mar, [facility] [place] [facility] [address] [id number], [place] [address]- 5644 Mar, [facility] [place] [facility] [address] [id number] [place] [address]- 3352 Feb, [facility] [place] [facility] [address] [id number] [place] [address]- 5188 Feb, [facility] [place] [facility] [address] [id number] [place] [address]- 0681 Feb, [facility] [place] [facility] [address] [id number] [place] [address]- 8229 11 Dec, 2010 [facility] [address] [id number] [place] [address]- 1816 Nov, [facility] [address] [id number] [place] [address]- 3956 Apr, [facility] [address] [id number] [place] [address]- 7196 Apr, [facility] [address] [id number] [place] [address]- 2548 16 Apr, 2010 [facility] [address] [id number] [place] [address]- 0096 Apr, [facility] [address] [id number] [place] [address]- 2547 Apr, [facility] [address] [id number] [place] [address] 2548 Apr, [facility] [address] [id number] [place] [address]- 4760 Apr, [facility] [address] [id number] [place] [address]- 3042 Apr, [facility] [address] [id number] [place] [address]- 3748 Mar, [facility] [address] [id number] [place] [address] 2540 Mar, [facility] [address] [id number] [place] [address] 2541 Mar, [facility] [address] [id number] [place] [address] 2546 Mar, [facility] [address] [id number] [place] [address]- 2541 Mar, [facility] [address] [id number] [place] [address]- 7091 Mar, [facility] [address] [facility] [id number], [place] [address]- 0375 Mar, [facility] [address] [id number], [place] [address]- 4551 Mar, [facility] [address] [facility] [id number], [place] [address]- 8563 Mar, [facility] [address] [facility] [id number], [place] [address]- 6830 Mar, IMMUNIZATIONS No Known Immunizations SOCIAL HISTORY Never Assessed REASON FOR VISIT paperwork PLAN OF CARE VITAL SIGNS MEDICATIONS Unknown [...]
--- OUTSIDE RECORDS SUMMARY | 2018-04-22 23:25 | XMS REPORT ---
Author Author MARY FRAGOSO 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 Name Role Phone MARY FRAGOSO Unavailable PROBLEMS Type Condition ICD9-CM Code HNP10-PM Code Onset Dates Condition Status SNOMED Code Problem Severe sleep apnea G47.30 Active 58880016 Problem Chronic kidney disease, stage 3 (moderate) N18.3 Active 135772013 Problem Decreased diffusion capacity R94.2 Active 20140177 Problem Anemia in other chronic diseases classified elsewhere D63.8 Active 298999598 Problem Stenosis of carotid artery, unspecified laterality I65.29 Active 13555903 Problem Type 2 diabetes mellitus with diabetic polyneuropathy E11.42 Active 323391498 Problem Trochanteric bursitis of left hip M70.62 Active [id number] Problem Diarrhea, unspecified type R19.7 Active 02781549 Problem Anxiety about health F41.8 Active 453608678 Problem Transient cerebral ischemia, unspecified type G45.9 Active 333216947 Problem Aortic valve sclerosis I35.8 Active 44378249 Problem Generalized osteoarthritis M15.9 Active 373707133 Problem Coronary artery disease involving [place] coronary artery of [place] heart, angina presence unspecified I25.10 Active 2214177557251 Problem Hypoxemia R09.02 Active 642827027 Problem Presence of IVC filter Z95.828 Active 723035242 Problem Port catheter in place Z95.828 Active 980855552 Problem BMI 50.0-59.9, adult Z68.43 Active 763027464 Problem Mixed hyperlipidemia E78.2 Active 067566920 Problem Type 2 diabetes mellitus with hyperglycemia E11.65 Active 34588461 Problem Essential hypertension I10 Active 18853447 Problem Iron deficiency anemia, unspecified iron deficiency anemia type D50.9 Active 25511865 Problem Type 2 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 Active 00541284 Problem Renal osteodystrophy N25.0 Active 45793446 Problem Type 2 diabetes mellitus with foot ulcer E11.621 Active 522832005 Problem 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 Active 7440963 ALLERGIES No Information ENCOUNTERS Encounter Location Date Diagnosis [facility] [id number] [place] [address] 58331- 9625 04 Oct, 2017 [facility] [id number] [place] [address] 68139 -4256 September, BMI 50.0-59.9, adult Z68.43 [facility] [id number] [place] [address] 99325- 1574 September, [facility] [address] 29159- 2320 September, [facility] [id number] [place] [address] 54734- 1871 24 Aug, 2017 Type 2 diabetes mellitus with foot ulcer E11.621 ; Transient cerebral ischemia, unspecified type G45.9 ; Essential hypertension I10 ; Mixed hyperlipidemia E78.2 and BMI 50.0-59.9, adult Z68.43 [facility] [id number] [place] [address] 20985- 7910 17 Aug, 2017 [facility] [id number] [place] [address] 95626- 8172 14 Jul, 2017 Anxiety about health F41.8 and Mixed hyperlipidemia E78.2 [facility] [id number] [place] [address] 96312- 0764 13 Jul, 2017 [facility] [id number] [place] [address] 83784- 7798 12 Jun, 2017 [facility] [id number] [place] [address] 73931- 1804 12 Jun, 2017 Type 2 diabetes mellitus with hyperglycemia E11.65 ; Type 2 diabetes mellitus with foot ulcer E11.621 ; Port catheter in place Z95.828 ; 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 ; Contact with and (suspected) exposure to potentially hazardous body fluids Z77.21 and BMI 50.0-59.9, adult Z68.43 [facility] [id number] [place] [address] 85892- 2093 May, [facility] [id number] [place] [address] 26276- 9281 May, Open wound of right great toe, subsequent encounter S91.101D [facility] [address] 50593- 7536 May, [facility] [id number] [place] [address] 68253- 0007 Apr, [facility] [address] 85316- 6111 Apr, [facility] [address] 39507- 4695 Apr, [facility] [address] 17314- 7424 14 Apr, 2017 Type 2 diabetes mellitus with diabetic polyneuropathy E11.42 [facility] [id number] [place] [address] 49700- 9204 13 Apr, 2017 Open wound of right great toe, subsequent encounter S91.101D [facility] [id number] [place] [address] 49322- 6112 08 Apr, 2017 Open wound of right great toe, subsequent encounter S91.101D ; Breast pain, left N64.4 ; Breast cancer screening Z12.31 ; Type 2 diabetes mellitus with foot ulcer E11.621 ; Essential hypertension I10 and BMI 50.0-59.9, adult Z68.43 [facility] [id number] [place] [address] 09909- 7732 Mar, Encounter for immunization Z23 [facility] [id number] [place] [address] 44107- 7878 Mar, [facility] [id number] [place] [address] 97597- 2830 Mar, [facility] [id number] [place] [address] 23972- 9595 Mar, Type 2 diabetes mellitus with diabetic polyneuropathy E11.42 ; Type 2 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 ; Type 2 diabetes mellitus with foot ulcer E11.621 ; Essential hypertension I10 ; Hypoxemia R09.02 and Generalized osteoarthritis M15.9 [address] [facility] [address] 70240- 0492 Mar, Chronic kidney disease, stage 3 (moderate) N18.3 ; Acute cystitis without hematuria N30.00 ; Essential hypertension I10 ; Muscle spasms of neck M62.838 ; Type 2 diabetes mellitus with diabetic polyneuropathy E11.42 and BMI 50.0-59.9, adult Z68.43 [facility] [id number] [place] [address] 71476- 9921 Feb, [facility] [id number] [place] [address] 51927 -0362 Feb, [facility] [address] 96954- 3241 Feb, [facility] [id number] [place] [address] 18440- 2928 Feb, [facility] [id number] [place] [address] 80212- 6318 Feb, [facility] [address] 85529- 9812 Feb, [facility] [id number] [place] [address] 56891- 3631 Feb, Mixed hyperlipidemia E78.2 [facility] [address] 11511- 0648 Feb, [facility] [id number] [place] [address] 40170- 9866 Jan, [facility] [address] [address]- 9999 14 Jan, 2017 Generalized osteoarthritis M15.9 [facility] [id number] [place] [address] 68442- 5467 Oct, [facility] [id number] [place] [address] 25787- 5548 Jul, [facility] [id number] [place] [address] 62650- 5491 Jul, [address] [id number] [place] [address] 58058- 7018 Jul, Type 2 diabetes mellitus with hyperglycemia E11.65 ; Chronic kidney disease, stage 3 (moderate) N18.3 ; Type 2 diabetes mellitus with foot ulcer E11.621 ; Type 2 diabetes mellitus with diabetic polyneuropathy E11.42 ; Generalized osteoarthritis M15.9 ; Trochanteric bursitis of left hip M70.62 and Tinea pedis of both feet B35.3 [address] [address] [address] [address]- 6151 13 Jun, 2016 [address] [id number] [place] [address] 32777- 9916 Apr, [address] [facility] [id number] [place] [address] 12493- 9783 Apr, [address] [id number] [place] [address] 85991- 5891 Mar, [address] [id number] [place] [address] 51765- 1125 Feb, Encounter for immunization Z23 [facility] [id number] [place] [address] 870143- 0963 Feb, [facility] [address] [address]- 9002 Feb, Type 2 diabetes mellitus with hyperglycemia E11.65 ; Encounter for immunization Z23 ; Diarrhea, unspecified type R19.7 ; Essential hypertension I10 ; Mixed hyperlipidemia E78.2 ; Hypoxia R09.02 ; 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 and Type 2 diabetes mellitus with foot ulcer E11.621 [facility] [id number] [place] [address] 47274- 3811 23 Jan, 2016 [facility] [id number] [place] [address] 93484- 6165 Jan, Type 2 diabetes mellitus with hyperglycemia E11.65 and Pneumonia due to infectious organism, unspecified laterality, unspecified part of lung J18.9 [facility] [id number] [place] [address] 48401- 4487 Jan, [facility] [id number] [place] [address] 44686- 5033 Jan, [facility] [id number] [place] [address] 17031- 3987 Oct, Type 2 diabetes mellitus with hyperglycemia E11.65 ; Generalized osteoarthritis M15.9 and Chronic prescription opiate use Z79.891 [facility] [id number] [place] [address] 36227- 6846 September, [facility] [id number] [place] [address] 97756- 3332 Aug, [facility] [id number] [place] [address] 47970- 2059 Aug, [facility] [id number] [place] [address] 81386- 7680 Aug, [facility] [id number] [place] [address] 42926- 8797 Aug, [facility] [id number] [place] [address] 61008- 0117 Jun, [facility] [id number] [place] [address] 93775- 2274 Jun, Type 2 diabetes mellitus with hyperglycemia E11.65 ; Mixed hyperlipidemia E78.2 ; Vaginal itching L29.8 ; Neck muscle spasm M62.838 and Skin abrasion T14.8 [facility] [id number] [place] [address] 13405- 0488 Apr, [facility] [address] 47685- 9760 Apr, [address] [address] 95443- 9849 Mar, [address] [address] 48644- 4381 Feb, [address] 85396- 3681 Feb, Type 2 diabetes mellitus with hyperglycemia E11.65 ; Type 2 diabetes mellitus with foot ulcer E11.621 ; Type 2 diabetes mellitus with diabetic polyneuropathy E11.42 and Encounter for immunization Z23 [address] 41273- 4897 Jan, Hypertension 401.9 ; Uncontrolled type 2 diabetes mellitus 250.02 ; Right shoulder pain 719.41 and Ulcer of heel and midfoot 707.14 [id number] [place] [address] 39263- 1657 Dec, Diabetes with other specified manifestations, type II or unspecified type, not stated as uncontrolled 250.80 ; Ulcer of heel and midfoot 707.14 ; Hypertension 401.9 ; Hip pain, left 719.45 and Acute anxiety 300.00 [facility] [id number] [place] [address] 18907- 2063 Nov, [address] [address] 29840- 8940 Nov, [facility] [address] 99384- 3849 September, Anxiety attack 300.01 and Cellulitis 682.9 [address] [address] 62146- 2546 September, [facility] [place] [facility] [address] [id number] [place] [address]- 8621 September, [facility] [place] [facility] [address] [id number] [place] [address]- 2104 September, [facility] [place] [facility] [address] [id number] [place] [address]- 3750 Aug, [facility] [place] [facility] [address] [id number] [place] [address]- 6204 Aug, [facility] [place] [facility] [address] [id number] [place] [address]- 9321 Jul, [facility] [place] [facility] [address] [id number] [place] [address]- 3433 Jul, [facility] [place] [facility] [address] [id number] [place] [address]- 8221 Jul, [facility] [place] [facility] [address] [id number] [place] [address]- 8246 May, [facility] [place] [facility] [address] [id number] [place] [address]- 5794 May, [facility] [place] [facility] [address] [id number] [place] [address]- 6785 Mar, [facility] [place] [facility] [address] [id number] [place] [address]- 6519 Mar, [facility] [place] [facility] [address] [id number] [place] [address]- 2327 Mar, [facility] [place] [facility] [address] [id number] [place] [address]- 6498 Mar, [facility] [place] [facility] [address] [id number] [place] [address]- 7542 Mar, [facility] [place] [facility] [address] [id number] [place] [address]- 8958 Mar, [facility] [place] [facility] [address] [id number] [place] [address]- 6134 07 Mar, 2014 [facility] [place] [facility] [address] [id number] [place] [address]- 4460 14 Feb, 2014 [facility] [place] [facility] [address] [id number] [place] [address]- 1486 14 Feb, 2014 [facility] [place] [facility] [address] [id number] [place] [address]- 4406 30 Sep, 2013 [facility] [place] [facility] [address] [id number] [place] [address]- 254 30 Sep, 2013 [facility] [place] [facility] [address] [id number] [place] [address]- 1040 26 Sep, 2013 [facility] [place] [facility] [address] [id number] [place] [address]- 4323 26 Jan, 2013 [facility] [place] [facility] [address] [id number] [place] [address]- 2544 25 Jan, 2013 [facility] [place] [facility] [address] [id number] [place] [address]- 2545 25 Sep, 2013 [facility] [place] [facility] [address] [id number] [place] [address]- 2540 25 Sep, 2013 [facility] [place] [facility] [address] [id number] [place] [address]- 2545 25 Sep, 2013 [facility] [place] [facility] [address] [id number] [place] [address] 254 18 Sep, 2013 [facility] [place] [facility] [address] [id number] [place] [address]- 2541 18 Sep, 2013 [facility] [place] [facility] [address] [id number] [place] [address] 2541 06 Sep, 2013 [facility] [place] [facility] [address] [id number] [place] [address]- 2546 06 Sep, 2013 [facility] [place] [facility] [address] [id number] [place] 2648 05 Sep, 2013 [facility] [place] [facility] [address] [id number] [place] [address]- 7798 Sep, 2013 [facility] [place] [facility] [address] [id number] [place] [address]- 6911 Jan, 2013 [facility] [place] [facility] [address] [id number] [place] [address]- 0988 Jan, 2013 [facility] [place] [facility] [address] [id number] [place] [address]- 4715 Jan, 2013 [facility] [place] [facility] [address] [id number] [place] [address]- 2888 Jan, 2013 [facility] [place] [facility] [address] [id number] [place] [address]- 7215 Dec, 2013 [facility] [place] [facility] [address] [id number] [place] [address]- 1212 Dec, 2013 [facility] [place] [facility] [address] [id number] [place] [address]- 3660 Dec, [facility] [place] [facility] [address] [id number] [place] [address]- 6216 Dec, [facility] [place] [facility] [address] [id number] [place] [address]- 3448 Dec, [facility] [place] [facility] [address] [id number] [address]- 1020 Dec, [facility] [place] [facility] [address] [id number] [address]- 1908 Dec, [facility] [place] [facility] [address] [id number] [place] [address]- 9894 Dec, [facility] [place] [facility] [address] [id number] [place] [address]- 2456 Dec, [facility] [place] [facility] [address] [id number] [place] [address]- 0377 Dec, [facility] [place] [facility] [address] [id number] [address]- 9151 14 Nov, 2013 [facility] [place] [facility] [address] [id number] [place] [address]- 1657 14 Nov, 2013 [facility] [place] [facility] [address] [id number] [place] [address]- 7095 Nov, [facility] [place] [facility] [address] [id number] [place] [address]- 8918 Nov, 2013 [facility] [place] [facility] [address] [id number] [place] [address]- 2299 Nov, [facility] [place] [facility] [address] [id number] [place] [address]- 6598 Nov, [facility] [place] [facility] [address] [id number] [place] [address]- 7298 Oct, [facility] [place] [facility] [address] [id number] [place] [address]- 6903 Oct, [facility] [place] [facility] [address] [id number] [place] [address]- 5287 Oct, [facility] [place] [facility] [address] [id number] [place] [address]- 6332 Oct, [facility] [place] [facility] [address] [id number] [place] [address]- 2212 Oct, [facility] [place] [facility] [address] [id number] [place] [address]- 8427 Oct, [facility] [place] [facility] [address] [id number] [address]- 9858 Oct, [facility] [place] [facility] [address] [id number] [place] [address]- 1096 Oct, [facility] [place] [facility] [address] [id number] [place] [address]- 4950 Oct, [facility] [place] [facility] [address] [id number] [place] [address]- 9074 Oct, [facility] [place] [facility] [address] [id number] [place] [address]- 2936 Oct, [facility] [place] [facility] [address] [id number] [place] [address]- 0443 Oct, [facility] [place] [facility] [address] [id number] [place] [address]- 3146 September, [facility] [place] [facility] [address] [id number] [place] [address]- 2881 September, [facility] [place] [facility] [address] [id number] [place] [address]- 1642 September, [facility] [place] [facility] [address] [id number] [place] [address]- 3465 Aug, [facility] [place] [facility] [address] [id number] [place] [address]- 1504 Aug, [facility] [place] [facility] [address] [id number] [place] [address]- 6877 Jul, [facility] [place] [facility] [address] [id number] [place] [address]- 9656 Jul, [facility] [place] [facility] [address] [id number] [place] [address]- 4125 Jul, [facility] [place] [facility] [address] [id number] [place] [address]- 0804 Jul, [facility] [place] [facility] [address] [id number] [place] [address]- 5319 Jul, [facility] [place] [facility] [address] [id number] [place] [address]- 8556 Jul, [facility] [place] [facility] [address] [id number] [place] [address]- 6976 Jul, [facility] [place] [facility] [address] [id number] [place] [address]- 7186 Jul, [facility] [place] [facility] [address] [id number] [place] [address]- 5085 Jul, [facility] [place] [facility] [address] [id number] [place] 8994 Jul, [facility] [place] [facility] [address] [id number] [place] [address]- 1816 Jun, [facility] [place] [facility] [address] [id number] [place] [address]- 0526 Jun, [facility] [place] [facility] [address] [id number] [place] [address]- 0572 Jun, [facility] [place] [facility] [address] [id number] [place] [address]- 7202 Jun, [facility] [place] [facility] [address] [id number] [place] [address]- 4282 May, [facility] [place] [facility] [address] [id number] [place] [address]- 4660 May, [facility] [place] [facility] [address] [id number] [place] [address]- 0958 Apr, [facility] [place] [facility] [address] [id number] [place] [address]- 5895 Apr, [facility] [place] [facility] [address] [id number] [place] [address]- 3834 Apr, [facility] [place] [facility] [address] [id number] [place] [address]- 7262 Apr, [facility] [place] [facility] [address] [id number] [place] [address]- 4711 Apr, [facility] [place] [facility] [address] [id number] [place] [address] Apr, [facility] [place] [facility] [address] [id number] [place] [address] Apr, [facility] [place] [facility] [address] [id number] [place] [address] Apr, [facility] [place] [facility] [address] [id number] [place] [address] Mar, [facility] [address] [id number] [place] [address] Mar, [facility] [place] [facility] [address] [id number] [place] [address] Mar, [facility] [address] [id number] [place] [address] Mar, [facility] [place] [facility] [address] [id number] [place] [address] Mar, [facility] [place] [facility] [address] [id number] [place] [address] Mar, [facility] [place] [facility] [address] [id number] [place] [address] Feb, [facility] [place] [facility] [address] [id number] [place] [address] 30 Feb, 2013 [facility] [address] [id number] [place] [address] Feb, [facility] [place] [facility] [address] [id number] [place] [address] 18 Feb, 2013 [facility] [address] [id number] [place] [address] Feb, [facility] [place] [facility] [address] [id number] [place] [address] 14 Feb, 2013 [facility] [place] [facility] [address] [id number] [place] [address] 04 Feb, 2013 [facility] [place] [facility] [address] [id number] [place] [address] 27 Jan, 2013 [facility] [place] [facility] [address] [id number] [place] [address]- [address] 26 Jan, 2013 [facility] [place] [facility] [address] [id number] [place] [address] Jan, [facility] [place] [facility] [address] [id number] [place] [address] Jan, [facility] [place] [facility] [address] [id number] [place] [address] Dec, [facility] [place] [facility] [address] [id number] [place] [address] Dec, [facility] [place] [facility] [address] [id number] [place] [address] Dec, [facility] [place] [facility] [address] [id number] [place] [address] Nov, [facility] [place] [facility] [address] [id number] [place] [address] 4769 Nov, [facility] [place] [facility] [address] [id number] [place] [address] Nov, [facility] [place] [facility] [address] [id number] [place] [address] Nov, [facility] [place] [facility] [address] [id number] [place] [address] Nov, [facility] [place] [facility] [address] [id number] [place] [address] Nov, [facility] [place] [facility] [address] [id number] [place] [address] Oct, [facility] [place] [facility] [address] [id number] [place] [address] Oct, [facility] [place] [facility] [address] [id number] [place] [address] Oct, [facility] [place] [facility] [address] [id number] [place] [address] Oct, [facility] [place] [facility] [address] [id number] [place] [address] Oct, [facility] [place] [facility] [address] [id number] [place] [address] Oct, [facility] [address] [id number] [place] [address] September, [facility] [address] [id number] [place] [address] September, [facility] [address] [id number] [place] [address] September, [facility] [address] [id number] [place] [address] September, [facility] [address] [id number] [place] [address] 4944 Aug, [facility] [address] [id number] [place] [address] 9107 Aug, [facility] [address] [id number] [place] [address] Jul, [facility] [address] [id number] [place] [address] 9[address] Jul, [facility] [address] [id number] [place] [address] 9244 18 Jul, 2012 [facility] [address] [facility] [id number] [place] [address] 15 Jul, 2012 [facility] [address] [id number] [place] [address] 5696 Jul, [facility] [address] [id number] [address] 08 Jul, 2012 [facility] [address] [id number] [place] [address] 0742 20 Jun, 2012 [facility] [address] [id number] [place] [address] 6288 Jun, [facility] [address] [facility] [id number] [place] [address] 8[address] May, [facility] [address] [id number] [place] [address] 7137 May, [facility] [address] [id number] [place] [address] 2996 Apr, [facility] [place] [facility] [address] [id number] [place] [address]- 0009 18 Apr, 2012 [facility] [place] [facility] [address] [id number] [place] [address]- 3026 13 Apr, 2012 [facility] [place] [facility] [address] [id number] [place] [address]- 7169 13 Apr, 2012 [facility] [place] [facility] [address] [id number] [place] [address]- 1746 Apr, [facility] [address] [id number] [place] [address] 8085 Apr, [facility] [address] [id number] [place] [address]- 3315 Apr, [facility] [place] [facility] [address] [id number] [place] [address]- [address] Apr, [facility] [place] [facility] [address] [id number] [place] [address]- [address] Apr, [facility] [place] [facility] [address] [id number] [place] [address]- 5252 Apr, [facility] [place] [facility] [address] [id number] [place] [address] 6677 Apr, [facility] [place] [facility] [address] [id number] [place] [address]- 7004 Apr, [facility] [place] [facility] [address] [id number] [place] [address]44 Apr, [facility] [place] [facility] [address] [id number] [place] [address]- 4260 05 Apr, 2012 [facility] [place] [facility] [address] [id number] [place] [address] 34[address] Apr, [facility] [place] [facility] [address] [id number] [place] [address]- 6749 Apr, [facility] [place] [facility] [address] [id number] [place] [address] 9018 Mar, [facility] [place] [facility] [address] [facility] [id number] [place] [address] 8391 Mar, [facility] [place] [facility] [address] [id number] [place] [address]- 6787 Mar, [facility] [place] [facility] [address] [id number] [place] [address]- 1355 Mar, [facility] [place] [facility] [address] [id number] [place] [address] 6908 Mar, [facility] [place] [facility] [address] [facility] [id number] [place] [address] 5577 Mar, [facility] [place] [facility] [address] [id number] [place] [address] 5568 Mar, [facility] [place] [facility] [address] [id number] [place] [address] 3157 Mar, [facility] [place] [facility] [address] [facility] [id number] [place] [address] 2075 Mar, [facility] [place] [facility] [address] [id number] [place] [address] 7914 Mar, [facility] [place] [facility] [address] [id number] [place] [address]- 7930 Feb, [facility] [place] [facility] [address] [id number] [place] [address] 8998 Feb, [facility] [place] [facility] [address] [facility] [id number] [place] [address]- 9786 Feb, [facility] [place] [facility] [address] [facility] [id number] [place] [address] 4980 Feb, [facility] [place] [facility] [address] [id number] [place] [address]- 7201 Feb, [facility] [address] [id number] [place] [address]- 9066 Feb, [facility] [place] [facility] [address] [id number] [place] [address] Jan, [facility] [place] [facility] [address] [id number] [place] [address]- 8422 Dec, [facility] [place] [facility] [address] [id number] [place] [address]- 7574 Dec, [facility] [place] [facility] [address] [id number] [place] [address]- 7461 Dec, [facility] [place] [facility] [address] [id number] [place] [address]- 1713 Dec, [facility] [address] [id number] [place] [address]- 3881 Nov, [facility] [address] [id number] [place] [address]- 0613 Nov, [facility] [place] [facility] [address] [id number] [place] [address]- 7560 Nov, [facility] [address] [id number] [place] [address]- 2643 Nov, [facility] [place] [facility] [address] [id number] [place] [address]- 0786 Oct, [facility] [place] [facility] [address] [id number] [place] [address]- 3759 Oct, [facility] [place] [facility] [address] [id number] [place] [address]- 0322 Oct, [facility] [place] [facility] [address] [id number] [place] [address]- 5770 Oct, [facility] [place] [facility] [address] [id number] [place] [address]- 3369 Oct, [facility] [place] [facility] [address] [id number] [place] [address]- 9694 September, [facility] [address] [id number] [place] [address]- 5093 September, [facility] [address] [id number] [place] [address]- 1747 September, [facility] [address] [id number] [place] [address]- 9998 September, [facility] [address] [id number] [place] [address]- 7596 September, [facility] [address] [id number] [place] [address]- 3732 September, [facility] [address] [id number] [place] [address]- 5780 September, [facility] [address] [id number] [place] [address]- 0607 September, [facility] [address] [id number] [place] [address]- 1512 Aug, [facility] [address] [id number] [place] [address]- 7408 Aug, [facility] [place] [facility] [address] [id number] [place] [address]- 5423 Aug, [facility] [place] [facility] [address] [id number] [place] [address]- 1336 Aug, [facility] [place] [facility] [address] [id number] [place] [address]- 1170 18 Aug, 2011 [facility] [place] [facility] [address] [id number] [place] [address]- 5304 17 Aug, 2011 [facility] [place] [facility] [address] [id number] [place] [address]- 2872 13 Aug, 2011 [facility] [place] [facility] [address] [id number] [place] [address]- 5019 12 Aug, 2011 [facility] [address] [id number] [place] [address]- 0943 10 Aug, 2011 [facility] [place] [facility] [address] [id number] [place] [address] 09 Aug, 2011 [facility] [place] [facility] [address] [id number] [place] [address]- 9141 Aug, [facility] [place] [facility] [address] [id number] [place] [address]- 1850 Aug, [facility] [place] [facility] [address] [id number] [place] [address]- 0837 29 Jul, 2011 [facility] [place] [facility] [address] [id number] [place] [address]- 0724 28 Jul, 2011 [facility] [place] [facility] [address] [facility] [id number] [place] [address]- 6300 27 Jul, 2011 [facility] [place] [facility] [address] [id number] [place] [address]- 6168 23 Jul, 2011 [facility] [place] [facility] [address] [id number] [place] [address]- 9270 21 Jul, 2011 [facility] [place] [facility] [address] [facility] [id number] [place] [address]- 5752 21 Jul, 2011 [facility] [place] [facility] [address] [id number] [place] [address]- 5789 14 Jul, 2011 [facility] [place] [facility] [address] [id number] [place] [address]- 3993 13 Jul, 2011 [facility] [place] [facility] [address] [id number] [place] [address]- 9254 07 Jul, 2011 [facility] [place] [facility] [address] [facility] [id number] [place] [address]- 1836 24 Jun, 2011 [facility] [place] [facility] [address] [facility] [id number] [place] [address]- 1570 23 Jun, 2011 [facility] [place] [facility] [address] [id number] [place] [address]- 5388 Jun, [facility] [place] [facility] [address] [id number] [place] [address]- 6136 Jun, [facility] [place] [facility] [address] [id number] [place] [address]- 0936 Jun, [facility] [place] [facility] [address] [id number] [place] [address]- 4896 Jun, [facility] [place] [facility] [address] [id number] [place] [address]- 4853 Jun, [facility] [place] [facility] [address] [id number] [place] [address]- 7625 May, [facility] [address] [id number] [place] [address]- 9674 May, [facility] [address] [id number] [place] [address]- 2983 May, [facility] [place] [facility] [address] [id number] [place] [address]- 8397 May, [facility] [place] [facility] [address] [id number] [place] [address]- 6431 May, [facility] [place] [facility] [address] [id number] [place] [address]- 3169 May, [facility] [place] [facility] [address] [id number] [place] [address]- 7346 May, [facility] [place] [facility] [address] [id number] [place] [address]- 4231 Apr, [facility] [place] [facility] [address] [id number] [place] [address]- 5566 Apr, [facility] [place] [facility] [address] [id number] [place] [address]- 6583 Apr, [facility] [place] [facility] [address] [id number] [place] [address]- 7118 Apr, [facility] [place] [facility] [address] [id number] [place] [address]43 Apr, [facility] [place] [facility] [address] [id number] [place] [address]- 0608 Apr, [facility] [place] [facility] [address] [id number] [place] [address]- 6656 Apr, [facility] [place] [facility] [address] [id number] [place] [address]- 2917 Apr, [facility] [place] [facility] [address] [id number] [place] [address] Apr, [facility] [place] [facility] [address] [id number] [place] [address]- 3844 Mar, [facility] [place] [facility] [address] [id number] [place] [address]- 3043 Mar, [facility] [place] [facility] [address] [id number] [place] [address]- 5906 Mar, [facility] [place] [facility] [address] [id number] [place] [address]- 3374 Mar, [facility] [place] [facility] [address] [id number] [place] [address]- 4320 Mar, [facility] [place] [facility] [address] [id number] [place] [address]- 6317 Feb, [facility] [place] [facility] [address] [id number] [place] [address]- 6708 Feb, [facility] [place] [facility] [address] [id number] [place] [address] Feb, [facility] [place] [facility] [address] [id number] [place] [address]- 1609 Dec, [facility] [place] [facility] [address] [id number] [place] [address]- 2812 Nov, [facility] [place] [facility] [address] [id number] [place] [address]- 5382 22 Apr, 2010 [facility] [address] [id number] [place] [address]- 1406 20 Apr, 2010 [facility] [address] [id number] [place] [address] 2546 16 Apr, 2010 [facility] [address] [id number] [place] [address] 2546 13 Apr, 2010 [facility] [address] [id number] [place] [address] 2546 09 Apr, 2010 [facility] [address] [id number] [place] [address] 2546 06 Apr, 2010 [facility] [address] [id number] [place] [address] 2546 06 Apr, 2010 [facility] [address] [id number] [place] [address] 254 Apr, [facility] [address] [id number] [place] [address] 2547 29 Mar, 2010 [facility] [address] [id number] [place] [address] 2547 24 Mar, 2010 [facility] [address] [id number] [place] [address] 2543 Mar, [facility] [address] [id number] [place] [address] 2546 Mar, [facility] [address] [id number] [place] [address] 2546 Mar, [facility] [place] [facility] [address] [id number] [place] [address] 2546 Mar, [facility] [address] [id number] [place] [address] 2546 15 Mar, 2010 [facility] [address] [id number] [place] [address] 2546 Mar, [facility] [address] [facility] [id number] [place] [address] 3[address] Mar, [facility] [address] [facility] [id number] [place] [address]- 7625 Mar, IMMUNIZATIONS No Known Immunizations SOCIAL HISTORY Never Assessed REASON FOR VISIT MRI order change PLAN OF CARE VITAL SIGNS MEDICATIONS Unknown Medications RESULTS Name Result Date Reference Range MRI : Foot, Right 2017-04-19 PROCEDURES No Known procedures INSTRUCTIONS MEDICATIONS ADMINISTERED [...]
--- OUTSIDE RECORDS SUMMARY | 2018-04-22 23:26 | XMS REPORT ---
Author Author MARY FRAGOSO [facility] Address [address] [place] [address] Care Team Providers Care Maintenance Representative Name Role Phone MARY FRAGOSO Unavailable PROBLEMS Type Condition ICD9-CM Code MOI22-VZ Code Onset Dates Condition Status SNOMED Code Problem Severe sleep apnea G47.30 Active 15456793 Problem Decreased diffusion capacity R94.2 Active 69158825 Problem Stenosis of carotid artery, unspecified laterality I65.29 Active 71405277 Problem Coronary artery disease involving lime coronary artery of lime heart, angina presence unspecified I25.10 Active 7884307858041 Problem Diarrhea, unspecified type R19.7 Active 98488275 Problem Generalized osteoarthritis M15.9 Active 164838188 Problem Trochanteric bursitis of left hip M70.62 Active 725005557501041 Problem Aortic valve sclerosis I35.8 Active 45758229 Problem Presence of IVC filter Z95.828 Active 816317232 Problem BMI 50.0-59.9, adult Z68.43 Active 645847111 Problem Hypoxemia R09.02 Active 335136572 Problem Type 2 diabetes mellitus with unspecified complications E11.8 Active 82642135 Problem 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 transportation 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.4 Active 792004484 Problem Mixed hyperlipidemia E78.2 Active 732143788 Problem Iron deficiency anemia, unspecified iron deficiency anemia type D50.9 Active 13841497 Problem Essential hypertension I10 Active 54365702 Problem Transient cerebral ischemia, unspecified type G45.9 Active 387021068 Problem Port catheter in place Z95.828 Active 514127706 Problem Chronic kidney disease, unspecified CKD stage N18.9 Active 955983928 Problem Anxiety about health F41.8 Active 148846431 Problem Type 2 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 Active 65483587 Problem Type 2 diabetes mellitus with hyperglycemia E11.65 Active 11931259 Problem Renal osteodystrophy N25.0 Active 88462859 Problem 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 Active 4706690 Problem Anemia in other chronic diseases classified elsewhere D63.8 Active 916148524 Problem Chronic kidney disease, stage 3 (moderate) N18.3 Active 216276235 Problem Type 2 diabetes mellitus with foot ulcer E11.621 Active 893760641 Problem Type 2 diabetes mellitus with diabetic polyneuropathy E11.42 Active 419627271 ALLERGIES No Information ENCOUNTERS Encounter Location Date Diagnosis [facility] [address] [address] Oct, [facility] [address] [address]- [address] Oct, [employer] [address] [place] [id number] Oct, Encounter for examination for admission to longterm Z02.2 ; Chronic kidney disease, unspecified CKD stage N18.9 ; Type 2 diabetes mellitus with unspecified complications E11.8 ; long-term 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.4 ; Essential hypertension I10 ; Hypoxia R09.02 ; Severe sleep apnea G47.30 ; Stenosis of carotid artery, unspecified laterality I65.29 ; Generalized osteoarthritis M15.9 ; Coronary artery disease involving lime coronary artery of lime heart, angina presence unspecified I25.10 ; Port catheter in place Z95.828 and Hemorrhoids, unspecified hemorrhoid type K64.9 [place] [address] [address]- [address] Oct, [facility] [address] [address]- [address] Oct, [facility] [id number] [place] [address] 17860- 2583 Oct, [facility] [address] [address]- 1203 Oct, [facility] [id number] [place] [address]90 -0972 September, BMI 50.0-59.9, adult Z68.43 [facility] [address] [place] [address] September, [place] [address] [address]- 9367 September, [place] [address] [address]- 1057 Aug, Type 2 diabetes mellitus with foot ulcer E11.621 ; Transient cerebral ischemia, unspecified type G45.9 ; Essential hypertension I10 ; Mixed hyperlipidemia E78.2 and BMI 50.0-59.9, adult Z68.43 [place] [address] [address]- 5620 Aug, [place] [address] 6[address]- 7[address] Jul, Anxiety about health F41.8 and Mixed hyperlipidemia E78.[address] [address]- [address] Jul, [place] [id number] [place] [address] 39778- 1553 Jun, [place] [address] [address]- 8780 Jun, Type 2 diabetes mellitus with hyperglycemia E11.65 ; Type 2 diabetes mellitus with foot ulcer E11.621 ; Port catheter in place Z95.828 ; 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 ; Contact with and (suspected) exposure to potentially hazardous body fluids Z77.21 and BMI 50.0-59.9, adult Z68.43 [place] [id number] [place] [address] 62586- 9815 May, [place] [address] 6[address]97- 1247 May, Open wound of right great toe, subsequent encounter S91.101D [place] [address] 6[address]83- 9339 May, [place] [address] [address] 88[address] Apr, [place] [id number] [place] [address] 20306- 9486 Apr, [place] [address] [address] 2104 Apr, [place] [id number] [place] [address] 40934- 6635 Apr, Type 2 diabetes mellitus with diabetic polyneuropathy E11.42 [place] [address] [place] [address] 09259- 2595 Apr, Open wound of right great toe, subsequent encounter S91.101D [place] [id number] [place] [address] 02909- 1366 08 Apr, 2017 Open wound of right great toe, subsequent encounter S91.101D ; Breast pain, left N64.4 ; Breast cancer screening Z12.31 ; Type 2 diabetes mellitus with foot ulcer E11.621 ; Essential hypertension I10 and BMI 50.0-59.9, adult Z68.43 [place] [id number] [place] [address] 39523- 5956 29 Mar, 2017 Encounter for immunization Z23 [place] [id number] [address] 2346 Mar, [place] [id number] [place] [address] 08103- 0448 Mar, [place] [address] [place] [address] 88379- 2632 Mar, Type 2 diabetes mellitus with diabetic polyneuropathy E11.42 ; Type 2 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 ; Type 2 diabetes mellitus with foot ulcer E11.621 ; Essential hypertension I10 ; Hypoxemia R09.02 and Generalized osteoarthritis M15.9 [place] [address] [address] 98[address] 02 Nov, 2017 Chronic kidney disease, stage 3 (moderate) N18.3 ; Acute cystitis without hematuria N30.00 ; Essential hypertension I10 ; Muscle spasms of neck M62.838 ; Type 2 diabetes mellitus with diabetic polyneuropathy E11.42 and BMI 50.0-59.9, adult Z68.43 [facility] [address] [address] Feb, [facility] [id number] [place] [address] 66567 -3390 Feb, [facility] [id number] [place] [address] 25831- 7069 Feb, [facility] [id number] [place] [address] 30713- 4759 Feb, [facility] [id number] [place] [address] 28656- 9428 Feb, [facility] [id number] [place] [address] 23787- 2566 Feb, [facility] [id number] [place] [address] 26530- 0330 Feb, Mixed hyperlipidemia E78.2 [facility] [id number] [place] [address] 00170- 2024 Feb, [facility] [id number] [place] [address] 79140- 3192 Jan, [facility] [id number] [place] [address] 51930- 4740 14 Jan, 2017 Generalized osteoarthritis M15.9 [facility] [id number] [place] [address] 61241- 8754 Oct, [facility] [id number] [place] [address] 744695- 3399 Jul, [facility] [id number] [place] [address] 82232- 2801 Jul, [facility] [address] [place] [address] 26415- 3565 Jul, Type 2 diabetes mellitus with hyperglycemia E11.65 ; Chronic kidney disease, stage 3 (moderate) N18.3 ; Type 2 diabetes mellitus with foot ulcer E11.621 ; Type 2 diabetes mellitus with diabetic polyneuropathy E11.42 ; Generalized osteoarthritis M15.9 ; Trochanteric bursitis of left hip M70.62 and Tinea pedis of both feet B35.3 [place] [id number] [place] [address] 60782- 1627 13 Jun, 2016 [place] [id number] [place] [address] 31607- 7976 Apr, [place] [id number] [place] [address] 30839- 3660 Apr, [place] [id number] [place] [address] 11797- 8946 Mar, [place] [id number] [place] [address] 54163- 9346 Feb, Encounter for immunization Z23 [place] [id number] [place] [address] 82948- 2687 Feb, [place] [id number] [place] [address] 65746- 7195 Feb, Type 2 diabetes mellitus with hyperglycemia E11.65 ; Encounter for immunization Z23 ; Diarrhea, unspecified type R19.7 ; Essential hypertension I10 ; Mixed hyperlipidemia E78.2 ; Hypoxia R09.02 ; 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 and Type 2 diabetes mellitus with foot ulcer E11.621 [place] [id number] [place] [address] 26496- 9641 Jan, [place] [id number] [place] [address] 31242- 6932 Jan, Type 2 diabetes mellitus with hyperglycemia E11.65 and Pneumonia due to infectious organism, unspecified laterality, unspecified part of lung J18.9 [place] [address] [address]- 6233 19 Jan, 2016 [facility] [id number] [place] [address] 72080- 8811 16 Jan, 2016 [facility] [id number] [place] [address] 89953- 8543 Oct, Type 2 diabetes mellitus with hyperglycemia E11.65 ; Generalized osteoarthritis M15.9 and Chronic prescription opiate use Z79.891 [facility] [id number] [place] [address] 50819- 8256 September, [facility] [id number] [place] [address] 80349- 8321 Aug, [facility] [id number] [place] [address] 50156- 1453 Aug, [facility] [id number] [place] [address] 70858- 3514 Aug, [facility] [address] [place] [address] 19482- 4886 Aug, [facility] [id number] [place] [address] 90890- 4770 Jun, [facility] [id number] [place] [address] 55586- 1093 Jun, Type 2 diabetes mellitus with hyperglycemia E11.65 ; Mixed hyperlipidemia E78.2 ; Vaginal itching L29.8 ; Neck muscle spasm M62.838 and Skin abrasion T14.8 [facility] [address] [address]- 6801 Apr, [facility] [id number] [place] [address] 31847- 1291 Apr, [facility] [address] [place] [address] 83348- 9938 Mar, [facility] [id number] [place] [address] 45807- 0217 Feb, [facility] [id number] [place] [address] 30490- 2150 Feb, Type 2 diabetes mellitus with hyperglycemia E11.65 ; Type 2 diabetes mellitus with foot ulcer E11.621 ; Type 2 diabetes mellitus with diabetic polyneuropathy E11.42 and Encounter for immunization Z23 [facility] [address] [address]10- 1073 Jan, Hypertension 401.9 ; Uncontrolled type 2 diabetes mellitus 250.02 ; Right shoulder pain 719.41 and Ulcer of heel and midfoot 707.14 [place] [id number] [place] [address] 68021- 9453 Dec, Diabetes with other specified manifestations, type II or unspecified type, not stated as uncontrolled 250.80 ; Ulcer of heel and midfoot 707.14 ; Hypertension 401.9 ; Hip pain, left 719.45 and Acute anxiety 300.00 [facility] [id number] [place] [address] 33211- 3441 Nov, [facility] [id number] [place] [address] 55754- 4486 Nov, [facility] [id number] [place] [address] 51346- 6739 September, Anxiety attack 300.01 and Cellulitis 682.9 [facility] [id number] [place] [address] 97036- 3630 September, [facility] [id number] [place] [address] 57671- 3708 September, [facility] [id number] [place] [address] 79881- 5093 September, [facility] [id number] [place] [address] 22490- 8197 Aug, [facility] [id number] [place] [address] 81632- 2533 Aug, [facility] [place] [facility] [address] [id number] [place] [address]- 4329 13 Jul, 2014 [facility] [place] [facility] [address] [id number] [place] [address]- 6141 13 Jul, 2014 [facility] [place] [facility] [address] [id number] [place] [address]- 8781 05 Jul, 2014 [facility] [place] [facility] [address] [id number] [place] [address]- 2828 May, [facility] [place] [facility] [address] [id number] [place] [address]- 4346 May, [facility] [place] [facility] [address] [id number] [place] [address]- 3631 Mar, [facility] [place] [facility] [address] [id number] [place] [address]- 6185 Mar, [facility] [place] [facility] [address] [id number] [place] [address]- 3619 Mar, [facility] [place] [facility] [address] [id number] [place] [address]- 1153 Mar, [facility] [place] [facility] [address] [id number] [place] [address]- 7791 Mar, [facility] [place] [facility] [address] [id number] [place] [address]- 6322 Mar, [facility] [place] [facility] [address] [id number] [address]- 5679 Mar, [facility] [place] [facility] [address] [id number] [place] [address]- 3695 14 Feb, 2014 [facility] [place] [facility] [address] [id number] [place] [address]- 5008 14 Feb, 2014 [facility] [place] [facility] [address] [id number] [address]- 4609 30 Jan, 2014 [facility] [place] [facility] [address] [id number] [address]- 4064 30 Sep, 2013 [facility] [place] [facility] [address] [id number] [place] [address] 2546 26 Sep, 2013 [facility] [place] [facility] [address] [id number] [place] [address] 2546 26 Sep, 2013 [facility] [place] [facility] [address] [id number] [place] [address] 2546 25 Sep, 2013 [facility] [place] [facility] [address] [id number] [place] [address] 2542 25 Sep, 2013 [facility] [place] [facility] [address] [id number] [place] [address]- 9930 25 Sep, 2013 [facility] [place] [facility] [address] [id number] [place] [address]- 1279 25 Sep, 2013 [facility] [place] [facility] [address] [id number] [place] [address]- 4796 18 Sep, 2013 [facility] [place] [facility] [address] [id number] [place] [address]- 9134 18 Sep, 2013 [facility] [place] [facility] [address] [id number] [place] [address]- 9838 06 Sep, 2013 [facility] [place] [facility] [address] [id number] [place] [address]- 2541 06 Sep, 2013 [facility] [place] [facility] [address] [id number] [address] 2548 05 Sep, 2013 [facility] [place] [facility] [address] [id number] [address]- 2540 05 Sep, 2013 [facility] [place] [facility] [address] [id number] [place] [address] 2546 05 Sep, 2013 [facility] [place] [facility] [address] [id number] [place] [address] 2542 05 Sep, 2013 [facility] [place] [facility] [address] [id number] [place] [address] 2540 05 Sep, 2013 [facility] [place] [facility] [address] [id number] [place] [address]- 0636 Jan, [facility] [place] [facility] [address] [id number] [facility] [place] [address]- 7967 Dec, [facility] [place] [facility] [address] [id number] [place] [address]- 8240 Dec, [facility] [place] [facility] [address] [id number] [place] [address]- 3701 Dec, [facility] [place] [facility] [address] [id number] [place] [address]- 9604 Dec, [facility] [place] [facility] [address] [id number] [place] [address]- 8595 Dec, [facility] [place] [facility] [address] [id number] [place] [address]- 3687 Dec, [facility] [place] [facility] [address] [id number] [place] [address]- 5601 Dec, [facility] [place] [facility] [address] [id number] [place] [address]- 0030 Dec, [facility] [place] [facility] [address] [id number] [place] [address]- 2431 Dec, [facility] [place] [facility] [address] [id number] [place] [address]- 9515 Dec, [facility] [place] [facility] [address] [id number] [place] [address]- 9505 Nov, [facility] [place] [facility] [address] [id number] [place] [address]- 3446 Nov, [facility] [place] [facility] [address] [id number] [place] [address]- 2476 Nov, [facility] [place] [facility] [address] [id number] [place] [address]- 0495 Nov, [facility] [place] [facility] [address] [id number] [place] [address]- 0337 Nov, [facility] [place] [facility] [address] [id number] [place] [address]- 8941 Nov, [facility] [place] [facility] [address] [id number] [place] [address]- 0812 Oct, [facility] [place] [facility] [address] [id number] [place] [address]- 2900 Oct, [facility] [place] [facility] [address] [id number] [place] [address]- 6345 Oct, [facility] [place] [facility] [address] [id number] [place] [address]- 1192 Oct, [facility] [place] [facility] [address] [id number] [place] [address]- 1012 Oct, [facility] [place] [facility] [address] [id number] [place] [address]- 7022 Oct, [facility] [place] [facility] [address] [id number] [place] [address]- 1505 Oct, [facility] [place] [facility] [address] [id number] [place] [address]- 5049 Oct, [facility] [place] [facility] [address] [id number] [place] [address]- 0355 Oct, [facility] [place] [facility] [address] [id number] [place] [address]- 2335 Oct, [facility] [place] [facility] [address] [id number] [address]- 0555 Oct, [facility] [place] [facility] [address] [id number] [place] [address]- 5907 Oct, [facility] [place] [facility] [address] [id number] [place] [address]- 5035 September, [facility] [place] [facility] [address] [id number] [place] [address]- 5883 September, [facility] [place] [facility] [address] [id number] [place] [address]- 1757 September, [facility] [place] [facility] [address] [id number] [place] [address]- 2290 Aug, [facility] [place] [facility] [address] [id number] [place] [address]- 8690 Aug, [facility] [place] [facility] [address] [id number] [place] [address]- 4248 Jul, [facility] [place] [facility] [address] [id number] [place] [address]- 6446 Jul, [facility] [place] [facility] [address] [id number] [place] [address]- 7239 Jul, [facility] [place] [facility] [address] [id number] [place] [address]- 1254 Jul, [facility] [place] [facility] [address] [id number] [place] [address]- 1433 Jul, [facility] [place] [facility] [address] [id number] [place] [address]- 5218 Jul, [facility] [place] [facility] [address] [id number] [place] [address]- 9956 Jul, [facility] [place] [facility] [address] [facility] [id number] [place] [address]- 0301 Jul, [facility] [place] [facility] [address] [id number] [place] [address]- 0850 Jul, [facility] [place] [facility] [address] [id number] [place] [address]- 2212 Jul, [facility] [place] [facility] [address] [id number] [place] [address]- 4042 Jun, [facility] [place] [facility] [address] [id number] [place] [address]- 1206 Jun, [facility] [place] [facility] [address] [id number] [place] [address]- 4641 Jun, [facility] [place] [facility] [address] [id number] [place] [address]- 3142 Jun, [facility] [facility] [address] [id number] [place] [address]- 9572 May, [facility] [place] [facility] [address] [id number] [place] 2699 May, [facility] [place] [facility] [address] [id number] [place] [address]- 3727 Apr, [facility] [place] [facility] [address] [id number] [place] 7955 Apr, [facility] [place] [facility] [address] [id number] [place] [address]- 7176 Apr, [facility] [place] [facility] [address] [id number] [place] [address]- 4336 Apr, [facility] [place] [facility] [address] [id number] [place] [address]- 2444 Apr, [facility] [place] [facility] [address] [id number] [place] [address]- 2592 Apr, [facility] [address] [id number] [place] [address] Apr, [facility] [place] [facility] [address] [id number] [place] [address] Apr, [facility] [place] [facility] [address] [id number] [place] [address] Mar, [facility] [place] [facility] [address] [id number] [place] [address] Mar, [facility] [place] [facility] [address] [id number] [place] [address] Mar, [facility] [place] [facility] [address] [id number] [place] [address] Mar, [facility] [place] [facility] [address] [id number] [place] [address] 08 Mar, 2013 [facility] [place] [facility] [address] [id number] [place] [address] 08 Mar, 2013 [facility] [place] [facility] [address] [id number] [place] [address] Feb, [facility] [place] [facility] [address] [id number] [place] [address] 30 Feb, 2013 [facility] [place] [facility] [address] [id number] [place] [address] Feb, [facility] [place] [facility] [address] [id number] [place] [address] 18 Feb, 2013 [facility] [place] [facility] [address] [id number] [place] [address] Feb, [facility] [place] [facility] [address] [id number] [place] [address] Feb, [facility] [place] [facility] [address] [id number] [place] [address] Feb, [facility] [place] [facility] [address] [id number] [place] [address] 27 Jan, 2013 [facility] [place] [facility] [address] [id number] [place] [address] 26 Jan, 2013 [facility] [place] [facility] [address] [id number] [place] [address] 19 Jan, 2013 [facility] [place] [facility] [address] [id number] [place] [address] 05 Jan, 2013 [facility] [place] [facility] [address] [id number] [place] [address] Dec, [facility] [place] [facility] [address] [id number] [place] [address] Dec, [facility] [place] [facility] [address] [id number] [place] [address] Dec, [facility] [place] [facility] [address] [id number] [place] [address] Nov, [facility] [address] [id number] [place] [address] Nov, [facility] [place] [facility] [address] [id number] [place] [address] Nov, [facility] [address] [id number] [place] [address] Nov, [facility] [place] [facility] [address] [id number] [place] [address] Nov, [facility] [address] [id number] [place] [address] Nov, [facility] [place] [facility] [address] [id number] [place] [address] Oct, [facility] [place] [facility] [address] [id number] [place] [address] Oct, [facility] [address] [id number] [place] [address] Oct, [facility] [place] [facility] [address] [id number] [place] [address] Oct, [facility] [place] [facility] [address] [id number] [place] [address] 1544 Oct, [facility] [place] [facility] [address] [id number] [place] [address] Oct, [facility] [place] [facility] [address] [id number] [place] [address] September, [facility] [place] [facility] [address] [id number] [place] [address] September, [facility] [place] [facility] [address] [id number] [place] [address] September, [facility] [place] [facility] [address] [id number] [place] [address] 79[address] September, [facility] [address] [id number] [place] [address] 38[address] Aug, [facility] [address] [id number] [place] [address] Aug, [facility] [address] [id number] [place] [address]- [address]187 28 Jul, 2012 [facility] [place] [facility] [address] [id number] [place] [address]- 7105 Jul, [facility] [address] [id number] [place] [address]- 8161 18 Jul, 2012 [facility] [address] [id number] [place] [address]- 3898 15 Jul, 2012 [facility] [address] [id number] [place] [address]- 9328 Jul, [facility] [address] [id number] [place] [address]- 2492 Jul, [facility] [address] [id number] [place] [address]- 5519 Jun, [facility] [address] [id number] [place] [address]- 6627 Jun, [facility] [address] [id number] [place] [address]- 0419 May, [facility] [place] [facility] [address] [id number] [address] May, [facility] [place] [facility] [address] [id number] [place] [address]- 1623 Apr, [facility] [place] [facility] [address] [id number] [place] [address]- 3481 18 Apr, 2012 [facility] [place] [facility] [address] [id number] [place] [address]- 9777 Apr, [facility] [place] [facility] [address] [id number] [place] [address]- 4678 13 Apr, 2011 [facility] [place] [facility] [address] [id number] [place] [address]- 0066 10 Apr, 2012 [facility] [place] [facility] [address] [id number] [place] [address]- 0986 10 Apr, 2012 [facility] [address] [id number] [place] [address]- 5736 07 Apr, 2011 [facility] [place] [facility] [address] [id number] [place] [address]- 8656 07 Apr, 2011 [facility] [place] [facility] [address] [id number] [place] [address]- 7456 07 Apr, 2012 [facility] [place] [facility] [address] [id number] [place] [address]- 5386 Apr, [facility] [place] [facility] [address] [id number] [place] [address]- 4166 07 Apr, 2012 [facility] [place] [facility] [address] [id number] [place] [address]- 2449 07 Apr, 2012 [facility] [place] [facility] [address] [id number] [place] [address]- 5246 Apr, [facility] [place] [facility] [address] [facility] [id number] [place] [address]- 8636 05 Apr, 2012 [facility] [place] [facility] [address] [id number] [place] [address]- 8106 05 Apr, 2012 [facility] [place] [facility] [address] [id number] [place] [address]- 0427 Apr, [facility] [place] [facility] [address] [id number] [place] [address]- 7093 Mar, [facility] [place] [facility] [address] [id number] [place] [address]- 3465 Mar, [facility] [place] [facility] [address] [id number] [place] [address] 8192 Mar, [facility] [place] [facility] [address] [id number] [place] [address]- 5985 Mar, [facility] [place] [facility] [address] [id number] [place] [address]- 6777 Mar, [facility] [place] [facility] [address] [id number] [place] [address]- 0810 Mar, [facility] [place] [facility] [address] [id number] [place] [address], [place] [address]- [address]39 Mar, [facility] [place] [facility] [address] [id number] [place] [address]- 9038 Mar, [facility] [place] [facility] [address] [id number] [place] [address]- 7053 Mar, [facility] [place] [facility] [address] [id number] [place] [address]- 2879 Mar, [facility] [place] [facility] [address] [id number] [place] [address]- 1364 Feb, [facility] [place] [facility] [address] [id number] [place] [address]- 7824 Feb, [facility] [place] [facility] [address] [id number] [place] [address]- 8779 Feb, [facility] [place] [facility] [address] [id number] [place] [address]- 1195 Feb, [facility] [place] [facility] [address] [id number] [place] [address] 8185 Feb, [facility] [place] [facility] [address] [id number] [place] [address]- 5019 Feb, [facility] [place] [facility] [address] [id number] [place] [address]- 8757 Jan, [facility] [place] [facility] [address] [id number] [place] [address]- 4047 Dec, [facility] [place] [facility] [address] [id number] [place] [address]- 3973 Dec, [facility] [place] [facility] [address] [id number] [place] [address]- 3844 Dec, [facility] [place] [facility] [address] [id number] [place] [address]- 2016 Dec, [facility] [place] [facility] [address] [id number] [place] [address] 6156 Nov, [facility] [place] [facility] [address] [id number] [place] [address]- 1140 Nov, [facility] [place] [facility] [address] [id number] [place] [address]- 9093 Nov, [facility] [place] [facility] [address] [id number] [place] [address]- 6754 Nov, [facility] [place] [facility] [address] [id number] [place] [address]- 0656 Oct, [facility] [place] [facility] [address] [id number] [place] [address]- 6609 Oct, [facility] [place] [facility] [address] [id number] [place] [address]- 4852 Oct, [facility] [place] [facility] [address] [id number] [place] [address]- 3857 Oct, [facility] [place] [facility] [address] [id number] [place] [address]- 5171 Oct, [facility] [place] [facility] [address] [id number] [place] [address]- 2052 September, [facility] [place] [facility] [address] [id number] [place] [address]- 3176 September, [facility] [place] [facility] [address] [id number] [place] [address]- 6323 September, [facility] [place] [facility] [address] [id number] [place] [address]- 1127 September, [facility] [place] [facility] [address] [id number] [place] [address]- 1187 16 Sep, 2011 [facility] [address] [id number] [place] [address]- 6676 September, [facility] [address] [id number] [place] [address]- 7071 September, [facility] [address] [id number] [place] [address]- 2159 September, [facility] [address] [id number] [place] [address]- 3075 Aug, [facility] [address] [id number] [place] [address]- 5713 Aug, [facility] [address] [id number] [place] [address]- 4773 Aug, [facility] [address] [id number] [place] [address]- 8572 Aug, [facility] [address] [id number] [place] [address]- 1376 18 Aug, 2011 [facility] [address] [id number] [place] [address]- 3065 17 Aug, 2011 [facility] [address] [id number] [place] [address]- 1265 13 Aug, 2011 [facility] [address] [id number] [place] [address]- 3410 Aug, [facility] [address] [id number] [place] [address]- 5733 10 Aug, 2011 [facility] [address] [id number] [place] [address]- 2295 09 Aug, 2011 [facility] [address] [id number] [place] [address]- 2542 Aug, [facility] [address] [id number] [place] [address]- 9194 Aug, [facility] [place] [facility] [address] [id number] [place] [address]- 7749 29 Jul, 2011 [facility] [place] [facility] [address] [id number] [place] [address]- 2189 28 Jul, 2011 [facility] [place] [facility] [address] [id number] [place] [address]- 2172 27 Jul, 2011 [facility] [place] [facility] [address] [id number] [place] [address]- 3750 23 Jul, 2011 [facility] [place] [facility] [address] [id number] [place] [address]- 2885 Jul, [facility] [place] [facility] [address] [id number] [place] [address]- 4874 21 Jul, 2011 [facility] [place] [facility] [address] [id number] [place] [address]- 4360 14 Jul, 2011 [facility] [place] [facility] [address] [id number] [place] [address]- 3632 13 Jul, 2011 [facility] [place] [facility] [address] [id number] [place] [address]- 2992 Jul, [facility] [place] [facility] [address] [id number] [place] [address]- 6618 24 Jun, 2011 [facility] [place] [facility] [address] [id number] [place] [address]- 0056 Jun, [facility] [place] [facility] [address] [id number] [place] [address]- 6893 Jun, [facility] [place] [facility] [address] [id number] [place] [address]- 4737 14 Jun, 2011 [facility] [place] [facility] [address] [id number] [place] 02 Jun, 2011 [facility] [place] [facility] [address] [id number] [place] [address]- 8090 Jun, [facility] [place] [facility] [address] [id number] [place] [address]- 9812 02 Jun, 2011 [facility] [address] [id number] [place] [address]- 1195 May, [facility] [address] [id number] [place] [address]- 1426 May, [facility] [address] [id number] [place] [address]- 2896 May, [facility] [address] [id number] [place] [address]- 5938 May, [facility] [address] [id number] [place] [address]- 2851 May, [facility] [address] [id number] [place] [address]- 1426 May, [facility] [address] [id number] [place] [address]- 1713 May, [facility] [address] [id number] [place] [address]- 9286 Apr, [facility] [address] [id number] [place] [address]- 8988 Apr, [facility] [address] [id number] [place] [address]- 5426 Apr, [facility] [address] [id number] [place] [address] 254 Apr, [facility] [address] [id number] [place] [address]- 7444 Apr, [facility] [address] [id number] [place] [address]- 8856 Apr, [facility] [address] [id number] [place] [address]- 0356 13 Apr, 2011 [facility] [address] [id number] [place] [address]- 8537 Apr, [facility] [place] [facility] [address] [id number] [place] [address]- 6354 Apr, [facility] [place] [facility] [address] [id number] [place] [address]- 1416 Mar, [facility] [place] [facility] [address] [id number] [place] [address]- 7576 Mar, [facility] [place] [facility] [address] [id number] [place] [address]- 8416 Mar, [facility] [place] [facility] [address] [id number] [place] [address]- 5727 Mar, [facility] [place] [facility] [address] [id number] [place] [address]- 9016 Mar, [facility] [place] [facility] [address] [id number] [place] [address]- 7616 Feb, [facility] [place] [facility] [address] [id number] [place] [address]- 7894 Feb, [facility] [place] [facility] [address] [id number] [place] [address]- 5301 Feb, [facility] [place] [facility] [address] [id number] [place] [address]- 3586 Dec, [facility] [place] [facility] [address] [id number] [place] [address]- 1756 Nov, [facility] [place] [facility] [address] [id number] [place] [address]- 5614 Apr, [facility] [place] [facility] [address] [id number] [place] [address]- 3363 Apr, [facility] [place] [facility] [address] [id number] [place] [address]- 2366 16 Apr, 2010 [facility] [place] [facility] [address] [id number] [place] [address]- 8801 13 Apr, 2010 [facility] [place] [facility] [address] [id number] [place] [address]- 2950 Apr, [facility] [id number] [address]- 5235 Apr, [facility] [id number] [address]- 4731 Apr, [facility] [id number] [address]- 4836 Apr, [facility] [id number] [address]- 0660 Mar, [facility] [id number] [place] [address]- 3692 Mar, [facility] [id number] [address]- 1321 Mar, [facility] [id number] [address]- 7606 Mar, [facility] [id number] [address]- 9589 Mar, [facility] [id number] [address]- 0074 Mar, [facility] [id number] [address]- 7427 Mar, [facility] [id number] [address]- 7491 Mar, [facility] [id number] [address]- 0939 Mar, [facility] [address] [id number] [address]- 1250 Mar, IMMUNIZATIONS No Known Immunizations SOCIAL HISTORY Never Assessed REASON FOR VISIT Dr. Campos' office PLAN OF CARE VITAL SIGNS MEDICATIONS Unknown [...]
--- OUTSIDE RECORDS SUMMARY | 2018-04-22 23:28 | XMS REPORT ---
Author Author MARY FRAGOSO [facility] Address [address] [place] [address] Care Team Providers Care Director Digital Analytics Name Role Phone MARY FRAGOSO Unavailable PROBLEMS Type Condition ICD9-CM Code FGL50-XV Code Onset Dates Condition Status SNOMED Code Problem Severe sleep apnea G47.30 Active 74705033 Problem Chronic kidney disease, stage 3 (moderate) N18.3 Active 941115901 Problem Decreased diffusion capacity R94.2 Active 13409258 Problem Anemia in other chronic diseases classified elsewhere D63.8 Active 469172968 Problem Stenosis of carotid artery, unspecified laterality I65.29 Active 04521398 Problem Type 2 diabetes mellitus with diabetic polyneuropathy E11.42 Active 865034288 Problem Trochanteric bursitis of left hip M70.62 Active [id number] Problem Diarrhea, unspecified type R19.7 Active 04402943 Problem Anxiety about health F41.8 Active 089491147 Problem Transient cerebral ischemia, unspecified type G45.9 Active 821549364 Problem Aortic valve sclerosis I35.8 Active 20938658 Problem Generalized osteoarthritis M15.9 Active 823493789 Problem Coronary artery disease involving [place] coronary artery of [place] heart, angina presence unspecified I25.10 Active 0255282523374 Problem Hypoxemia R09.02 Active 270006891 Problem Presence of IVC filter Z95.828 Active 759307566 Problem Port catheter in place Z95.828 Active 566366198 Problem BMI 50.0-59.9, adult Z68.43 Active 829312887 Problem Mixed hyperlipidemia E78.2 Active 109962986 Problem Type 2 diabetes mellitus with hyperglycemia E11.65 Active 53091890 Problem Essential hypertension I10 Active 35797991 Problem Iron deficiency anemia, unspecified iron deficiency anemia type D50.9 Active 93136880 Problem Type 2 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 Active 83349361 Problem Renal osteodystrophy N25.0 Active 90886473 Problem Type 2 diabetes mellitus with foot ulcer E11.621 Active 208328994 Problem 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 Active 0858089 ALLERGIES No Information ENCOUNTERS Encounter Location Date Diagnosis [facility] [id number] [place] [address] 39278 -2180 12 Sep, 2017 BMI 50.0-59.[address], [address] [facility] [id number] [place] [address] 93472- 0610 September, [facility] [id number] [place] [address] 06060- 8523 September, [place] [address] [address]74- 4210 Aug, Type 2 diabetes mellitus with foot ulcer E11.621 ; Transient cerebral ischemia, unspecified type G45.9 ; Essential hypertension I10 ; Mixed hyperlipidemia E78.2 and BMI 50.0-59.9, adult Z68.43 [facility] [id number] [place] [address] 48164- 1938 17 Aug, 2017 [facility] [address] 89469- 9631 14 Jul, 2017 Anxiety about health F41.8 and Mixed hyperlipidemia E78.2 [facility] [id number] [place] [address] 60318- 3620 13 Jul, 2017 [facility] [id number] [place] [address] 07632- 5434 12 Jun, 2017 [facility] [id number] [place] [address] 14757- 7016 12 Jun, 2017 Type 2 diabetes mellitus with hyperglycemia E11.65 ; Type 2 diabetes mellitus with foot ulcer E11.621 ; Port catheter in place Z95.828 ; 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 ; Contact with and (suspected) exposure to potentially hazardous body fluids Z77.21 and BMI 50.0-59.[address], [address] [facility] [address] [address] May, [facility] [id number] [place] [address] 18097- 0136 May, Open wound of right great toe, subsequent encounter S91.101D [facility] [address] [address] 7417 May, [facility] [id number] [place] [address] 75638- 5134 Apr, [facility] [id number] [place] [address] 98598- 0872 Apr, [place] [id number] [place] [address] 63700- 2671 Apr, [place] [id number] [place] [address] 21365- 2340 Apr, Type 2 diabetes mellitus with diabetic polyneuropathy E11.42 [place] [id number] [place] [address] 83743- 5532 13 Apr, 2017 Open wound of right great toe, subsequent encounter S91.101D [place] [id number] [place] [address] 96093- 5024 08 Apr, 2017 Open wound of right great toe, subsequent encounter S91.101D ; Breast pain, left N64.4 ; Breast cancer screening Z12.31 ; Type 2 diabetes mellitus with foot ulcer E11.621 ; Essential hypertension I10 and BMI 50.0-59.9, adult Z68.43 [place] [address] [address] 8818 Mar, Encounter for immunization Z23 [place] [id number] [place] [address] 61583- 8241 Mar, [facility] [address] [address] 6902 Mar, [facility] [id number] [place] [address] 55299- 9926 Mar, Type 2 diabetes mellitus with diabetic polyneuropathy E11.42 ; Type 2 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 ; Type 2 diabetes mellitus with foot ulcer E11.621 ; Essential hypertension I10 ; Hypoxemia R09.02 and Generalized osteoarthritis M15.9 [facility] [id number] [place] [address] 45832- 6362 Mar, Chronic kidney disease, stage 3 (moderate) N18.3 ; Acute cystitis without hematuria N30.00 ; Essential hypertension I10 ; Muscle spasms of neck M62.838 ; Type 2 diabetes mellitus with diabetic polyneuropathy E11.42 and BMI 50.0-59.9, adult Z68.43 [facility] [id number] [place] [address] 50868- 5429 Feb, [facility] [id number] [place] [address] 09561 -9181 Feb, [facility] [address] 63500- 4898 Feb, [facility] [id number] [place] [address] 90898- 7655 Feb, [facility] [id number] [place] [address] 65914- 2189 Feb, [facility] [id number] [place] [address] 34092- 0256 Feb, [facility] [id number] [place] [address] 61191- 7536 Feb, Mixed hyperlipidemia E78.2 [facility] [id number] [place] [address] 48375- 0548 Feb, [facility] [address] 12682- 0342 Jan, [facility] [id number] [place] [address] 02042- 9048 14 Jan, 2017 Generalized osteoarthritis M15.9 [place] [address] [place] [address] 63909- 8089 Oct, [place] [id number] [place] [address] 390668- 2499 Jul, [place] [id number] [place] [address] 63055- 7028 Jul, [place] [id number] [place] [address] 35204- 1862 Jul, Type 2 diabetes mellitus with hyperglycemia E11.65 ; Chronic kidney disease, stage 3 (moderate) N18.3 ; Type 2 diabetes mellitus with foot ulcer E11.621 ; Type 2 diabetes mellitus with diabetic polyneuropathy E11.42 ; Generalized osteoarthritis M15.9 ; Trochanteric bursitis of left hip M70.62 and Tinea pedis of both feet B35.3 [place] [id number] [place] [address] 66109- 2801 Jun, [place] [id number] [place] [address] 96294- 7905 Apr, [place] [id number] [place] [address] 60008- 7763 Apr, [place] [id number] [place] [address] 00904- 6810 Mar, [place] [id number] [place] [address] 03790- 5221 Feb, Encounter for immunization Z23 [place] [address] [place] [address] 75988- 4341 Feb, [place] [id number] [place] [address] 112665- 9870 Feb, Type 2 diabetes mellitus with hyperglycemia E11.65 ; Encounter for immunization Z23 ; Diarrhea, unspecified type R19.7 ; Essential hypertension I10 ; Mixed hyperlipidemia E78.2 ; Hypoxia R09.02 ; 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 and Type 2 diabetes mellitus with foot ulcer E11.621 [facility] [address] [address] Jan, [facility] [id number] [place] [address] 75596- 3394 Jan, Type 2 diabetes mellitus with hyperglycemia E11.65 and Pneumonia due to infectious organism, unspecified laterality, unspecified part of lung J18.9 [facility] [id number] [place] [address] 47793- 6950 Jan, [facility] [id number] [place] [address] 62795- 7049 Jan, [facility] [id number] [place] [address] 09176- 3176 Oct, Type 2 diabetes mellitus with hyperglycemia E11.65 ; Generalized osteoarthritis M15.9 and Chronic prescription opiate use Z79.891 [facility] [id number] [place] [address] 06966- 2226 September, [facility] [address] [place] [address] 60858- 1860 Aug, [facility] [id number] [place] [address] 30515- 9876 Aug, [facility] [id number] [place] [address] 46759- 2838 Aug, [facility] [id number] [place] [address] 98903- 3919 Aug, [facility] [id number] [place] [address] 03924- 9774 Jun, [facility] [id number] [place] [address] 82217- 6603 Jun, Type 2 diabetes mellitus with hyperglycemia E11.65 ; Mixed hyperlipidemia E78.2 ; Vaginal itching L29.8 ; Neck muscle spasm M62.838 and Skin abrasion T14.8 [facility] [id number] [place] [address] 62237- 6046 Apr, [place] [id number] [place] [address] 54955- 7880 Apr, [facility] [id number] [place] [address] 93984- 3603 Mar, [place] [id number] [place] [address] 88433- 0049 Feb, [place] [id number] [place] [address] 58572- 7319 Feb, Type 2 diabetes mellitus with hyperglycemia E11.65 ; Type 2 diabetes mellitus with foot ulcer E11.621 ; Type 2 diabetes mellitus with diabetic polyneuropathy E11.42 and Encounter for immunization Z23 [place] [id number] [place] [address] 01161- 7125 Jan, Hypertension 401.9 ; Uncontrolled type 2 diabetes mellitus 250.02 ; Right shoulder pain 719.41 and Ulcer of heel and midfoot 707.14 [place] [id number] [place] [address] 69172- 3344 Dec, Diabetes with other specified manifestations, type II or unspecified type, not stated as uncontrolled 250.80 ; Ulcer of heel and midfoot 707.14 ; Hypertension 401.9 ; Hip pain, left 719.45 and Acute anxiety 300.00 [place] [id number] [place] [address] 13836- 3960 Nov, [place] [id number] [place] [address] 25705- 4341 Nov, [place] [id number] [place] [address] 57974- 2862 September, Anxiety attack 300.01 and Cellulitis 682.9 [place] [id number] [place] [address] 73991- 5191 September, [place] [id number] [place] [address] 47314- 2546 September, [facility] [place] [facility] [address] [id number] [place] [address]- 6148 September, [facility] [place] [facility] [address] [id number] [place] [address]- 9832 14 Aug, 2014 [facility] [place] [facility] [address] [id number] [place] [address]- 8762 Aug, [facility] [place] [facility] [address] [id number] [place] [address]- 4915 13 Jul, 2014 [facility] [place] [facility] [address] [id number] [place] [address]- 2421 Jul, [facility] [place] [facility] [address] [id number] [place] [address]- 1650 05 Jul, 2014 [facility] [place] [facility] [address] [id number] [place] [address]- 6308 May, [facility] [place] [facility] [address] [id number] [place] [address]- 4396 May, [facility] [place] [facility] [address] [id number] [place] [address]- 4640 Mar, [facility] [place] [facility] [address] [id number] [place] [address]- 5025 Mar, [facility] [place] [facility] [address] [id number] [address]- 0151 Mar, [facility] [place] [facility] [address] [id number] [place] [address]- 9422 Mar, [facility] [place] [facility] [address] [id number] [place] [address]- 2795 Mar, [facility] [place] [facility] [address] [id number] [place] [address]- 2448 Mar, [facility] [place] [facility] [address] [id number] [place] [address]- 2158 Mar, [facility] [place] [facility] [address] [id number] [place] [address]- 1711 14 Feb, 2014 [facility] [place] [facility] [address] [id number] [place] [address]- 3615 14 Feb, 2014 [facility] [place] [facility] [address] [id number] [place] [address]- 2546 30 Sep, 2013 [facility] [place] [facility] [address] [id number] [place] [address]- 3205 30 Sep, 2013 [facility] [place] [facility] [address] [id number] [place] [address]- 2540 26 Sep, 2013 [facility] [place] [facility] [address] [id number] [place] [address]- 0595 26 Sep, 2013 [facility] [place] [facility] [address] [id number] [place] [address]- 4658 25 Jan, 2013 [facility] [place] [facility] [address] [id number] [place] [address]- 2545 25 Sep, 2013 [facility] [place] [facility] [address] [id number] [place] [address]- 2542 25 Sep, 2013 [facility] [place] [facility] [address] [id number] [place] [address]- 2547 25 Sep, 2013 [facility] [place] [facility] [address] [id number] [place] [address]- 2545 18 Sep, 2013 [facility] [place] [facility] [address] [id number] [place] [address] 2541 18 Sep, 2013 [facility] [place] [facility] [address] [id number] [place] [address]- 2543 06 Sep, 2013 [facility] [place] [facility] [address] [id number] [place] [address] 2543 06 Sep, 2013 [facility] [place] [facility] [address] [id number] [place] [address]- 2549 05 Sep, 2013 [facility] [place] [facility] [address] [id number] [place] 8621 05 Sep, 2013 [facility] [place] [facility] [address] [id number] [place] [address]- 7840 Jan, 2013 [facility] [place] [facility] [address] [id number] [place] [address]- 3564 Jan, 2013 [facility] [place] [facility] [address] [id number] [place] [address]- 8913 Jan, 2013 [facility] [place] [facility] [address] [id number] [place] [address]- 4950 Jan, 2013 [facility] [place] [facility] [address] [id number] [place] [address]- 8820 Dec, 2013 [facility] [place] [facility] [address] [id number] [place] [address]- 4666 Dec, 2013 [facility] [place] [facility] [address] [id number] [place] [address]- 5614 Dec, 2013 [facility] [place] [facility] [address] [id number] [place] [address]- 0964 Dec, 2013 [facility] [place] [facility] [address] [id number] [place] [address]- 5167 Dec, [facility] [place] [facility] [address] [id number] [place] [address]- 7444 Dec, [facility] [place] [facility] [address] [id number] [address]- 7453 Dec, [facility] [place] [facility] [address] [id number] [place] [address]- 9590 Dec, [facility] [place] [facility] [address] [id number] [place] [address]- 1272 Dec, [facility] [place] [facility] [address] [id number] [place] [address]- 9581 Dec, [facility] [place] [facility] [address] [id number] [place] [address]- 3770 Nov, [facility] [place] [facility] [address] [id number] [address]- 4275 14 Nov, 2013 [facility] [place] [facility] [address] [id number] [place] [address]- 1520 14 Nov, 2013 [facility] [place] [facility] [address] [id number] [place] [address]- 7165 14 Nov, 2013 [facility] [place] [facility] [address] [id number] [place] [address]- 0010 Nov, [facility] [place] [facility] [address] [id number] [place] [address]- 8447 Nov, [facility] [place] [facility] [address] [id number] [place] [address]- 6829 Oct, [facility] [place] [facility] [address] [id number] [place] [address]- 8996 Oct, [facility] [place] [facility] [address] [id number] [place] [address]- 2822 Oct, [facility] [place] [facility] [address] [id number] [place] [address]- 3957 Oct, [facility] [place] [facility] [address] [id number] [place] [address]- 0662 Oct, [facility] [place] [facility] [address] [id number] [place] [address]- 4266 Oct, [facility] [place] [facility] [address] [id number] [place] [address]- 8698 Oct, [facility] [place] [facility] [address] [id number] [place] [address]- 9834 Oct, [facility] [place] [facility] [address] [id number] [place] [address]- 7120 Oct, [facility] [place] [facility] [address] [id number] [place] [address]- 5752 Oct, [facility] [place] [facility] [address] [id number] [place] [address]- 9731 Oct, [facility] [place] [facility] [address] [id number] [place] [address]- 6008 Oct, [facility] [place] [facility] [address] [id number] [place] [address]- 8379 September, [facility] [place] [facility] [address] [id number] [place] [address]- 9706 September, [facility] [place] [facility] [address] [id number] [place] [address]- 9748 September, [facility] [place] [facility] [address] [id number] [place] [address]- 6896 Aug, [facility] [place] [facility] [address] [id number] [place] [address]- 4770 Aug, [facility] [place] [facility] [address] [id number] [place] [address]- 0842 Jul, [facility] [place] [facility] [address] [id number] [place] [address]- 0853 Jul, [facility] [place] [facility] [address] [id number] [place] [address]- 8122 Jul, [facility] [place] [facility] [address] [id number] [place] [address]- 9512 Jul, [facility] [place] [facility] [address] [id number] [place] [address]- 6372 Jul, [facility] [place] [facility] [address] [id number] [place] [address]- 3030 Jul, [facility] [place] [facility] [address] [id number] [place] [address]- 2017 Jul, [facility] [place] [facility] [address] [id number] [place] [address]- 2840 Jul, [facility] [place] [facility] [address] [id number] [place] [address]- 6816 Jul, [facility] [place] [facility] [address] [id number] [place] [address]- 5534 Jul, [facility] [place] [facility] [address] [id number] [place] [address]- 5609 Jun, [facility] [place] [facility] [address] [id number] [place] 6506 Jun, [facility] [place] [facility] [address] [id number] [place] [address]- 0946 Jun, [facility] [place] [facility] [address] [id number] [place] [address]- 9188 Jun, [facility] [place] [facility] [address] [id number] [place] [address]- 7089 May, [facility] [place] [facility] [address] [id number] [place] [address] May, [facility] [place] [facility] [address] [id number] [place] [address] Apr, [facility] [place] [facility] [address] [id number] [place] [address] Apr, [facility] [place] [facility] [address] [id number] [place] [address] Apr, [facility] [place] [facility] [address] [id number] [place] [address] Apr, [facility] [place] [facility] [address] [id number] [place] [address] Apr, [facility] [place] [facility] [address] [id number] [place] [address] Apr, [facility] [place] [facility] [address] [id number] [place] [address] Apr, [facility] [place] [facility] [address] [id number] [place] [address] Apr, [facility] [place] [facility] [address] [id number] [place] [address] Mar, [facility] [place] [facility] [address] [id number] [place] [address] Mar, [facility] [place] [facility] [address] [id number] [place] [address] Mar, [facility] [place] [facility] [address] [id number] [place] [address] 18 Mar, 2013 [facility] [address] [id number] [place] [address] Mar, [facility] [place] [facility] [address] [id number] [place] [address] Mar, [facility] [place] [facility] [address] [id number] [place] [address] Feb, [facility] [place] [facility] [address] [id number] [place] [address] 30 Feb, 2013 [facility] [place] [facility] [address] [id number] [place] [address] Feb, [facility] [place] [facility] [address] [id number] [place] [address] 18 Feb, 2013 [facility] [place] [facility] [address] [id number] [place] [address] 14 Feb, 2013 [facility] [place] [facility] [address] [id number] [place] [address] 14 Feb, 2013 [facility] [place] [facility] [address] [id number] [place] [address] 04 Feb, 2013 [facility] [place] [facility] [address] [id number] [place] [address] 27 Jan, 2013 [facility] [place] [facility] [address] [id number] [place] [address] 26 Jan, 2013 [facility] [place] [facility] [address] [id number] [place] [address] 19 Jan, 2013 [facility] [place] [facility] [address] [id number] [place] [address] Jan, [facility] [place] [facility] [address] [id number] [place] [address] Dec, [facility] [place] [facility] [address] [id number] [place] [address] Dec, [facility] [place] [facility] [address] [id number] [place] [address] Dec, [facility] [place] [facility] [address] [id number] [place] [address] Nov, [facility] [place] [facility] [address] [id number] [place] [address] Nov, [facility] [place] [facility] [address] [id number] [place] [address] Nov, [facility] [place] [facility] [address] [id number] [place] [address] Nov, [facility] [place] [facility] [address] [id number] [place] [address] Nov, [facility] [place] [facility] [address] [id number] [place] [address] Nov, [facility] [place] [facility] [address] [id number] [place] [address] Oct, [facility] [place] [facility] [address] [id number] [place] [address] Oct, [facility] [place] [facility] [address] [id number] [address] Oct, [facility] [place] [facility] [address] [id number] [place] [address] Oct, [facility] [place] [facility] [address] [id number] [place] [address] 137[address] Oct, [facility] [place] [facility] [address] [id number] [place] [address]17 Oct, [facility] [place] [facility] [address] [id number] [address] September, [facility] [address] [id number] [place] [address] September, [facility] [address] [id number] [place] [address] September, [facility] [address] [id number] [place] [address] 2576 September, [facility] [address] [id number] [place] [address] 2474 Aug, [facility] [address] [id number] [place] [address] 8[address] Aug, [facility] [address] [id number] [place] [address] Jul, [facility] [address] [id number] [place] [address] 93[address] Jul, [facility] [address] [id number] [place] [address] 96[address] Jul, [facility] [address] [id number] [place] [address] 3668 Jul, [facility] [address] [id number] [place] [address] 9687 Jul, [facility] [address] [id number] [place] [address] 6588 Jul, [facility] [address] [id number] [place] [address] Jun, [facility] [address] [id number] [place] [address] 04[address] Jun, [facility] [address] [id number] [place] [address] 0166 May, [facility] [address] [id number] [place] [address] May, [facility] [address] [id number] [place] [address] 9978 18 Apr, 2012 [facility] [place] [facility] [address] [id number] [place] [address] 7476 18 Apr, 2012 [facility] [place] [facility] [address] [id number] [place] [address]- 4206 13 Apr, 2012 [facility] [place] [facility] [address] [id number] [place] [address] 7566 13 Apr, 2012 [facility] [place] [facility] [address] [id number] [place] [address] 3342 10 Apr, 2012 [facility] [place] [facility] [address] [id number] [place] [address] 5156 10 Apr, 2012 [facility] [address] [id number] [place] [address]90 07 Apr, 2012 [facility] [place] [facility] [address] [id number] [place] [address] 47[address] Apr, [facility] [place] [facility] [address] [id number] [place] [address] 2073 Apr, [facility] [place] [facility] [address] [id number] [place] [address] 8218 Apr, [facility] [place] [facility] [address] [id number] [place] [address] 3422 Apr, [facility] [place] [facility] [address] [id number] [place] [address] 8310 Apr, [facility] [place] [facility] [address] [id number] [place] [address] 2864 Apr, [facility] [place] [facility] [address] [id number] [place] [address] 7116 Apr, [facility] [place] [facility] [address] [id number] [place] [address] 1320 05 Apr, 2012 [facility] [place] [facility] [address] [id number] [place] [address] Apr, [facility] [place] [facility] [address] [id number] [place] [address] 5820 Mar, [facility] [place] [facility] [address] [id number] [place] [address]- 1427 Mar, [facility] [place] [facility] [address] [facility] [id number] [place] [address]646 Mar, [facility] [place] [facility] [address] [id number] [place] [address] Mar, [facility] [place] [facility] [address] [id number] [place] [address]- 0566 Mar, [facility] [place] [facility] [address] [id number] [address] Mar, [facility] [place] [facility] [address] [facility] [id number] [place] [address] 0806 Mar, [facility] [place] [facility] [address] [id number] [place] [address] 1525 Mar, [facility] [place] [facility] [address] [id number] [place] [address]- 7270 Mar, [facility] [place] [facility] [address] [facility] [id number] [place] [address] 6583 Mar, [facility] [place] [facility] [address] [id number] [place] [address] Feb, [facility] [place] [facility] [address] [id number] [place] [address] 54[address] Feb, [facility] [place] [facility] [address] [id number] [place] [address]- 9544 Feb, [facility] [place] [facility] [address] [facility] [id number] [place] [address] 8115 Feb, [facility] [place] [facility] [address] [facility] [id number] [place] [address]- 8924 Feb, [facility] [place] [facility] [address] [id number] [place] [address] 4293 Feb, [facility] [address] [id number] [place] [address] 76[address] Jan, [facility] [place] [facility] [address] [id number] [place] [address] 4990 Dec, [facility] [address] [id number] [place] [address]- 5738 Dec, [facility] [place] [facility] [address] [id number] [place] [address]- 7199 Dec, [facility] [place] [facility] [address] [id number] [place] [address]- 9041 Dec, [facility] [place] [facility] [address] [id number] [place] [address] 7856 Nov, [facility] [address] [id number] [place] [address]- 1253 Nov, [facility] [address] [id number] [place] [address]- 2938 Nov, [facility] [place] [facility] [address] [id number] [place] [address]- 0326 Nov, [facility] [address] [id number] [place] [address]- 9643 Oct, [facility] [place] [facility] [address] [id number] [place] [address]- 0421 Oct, [facility] [place] [facility] [address] [id number] [place] [address]- 5351 Oct, [facility] [place] [facility] [address] [id number] [place] [address]- 0630 Oct, [facility] [place] [facility] [address] [id number] [place] [address]- 0868 Oct, [facility] [place] [facility] [address] [id number] [place] [address]- 8518 September, [facility] [address] [id number] [place] [address]- 3229 September, [facility] [address] [id number] [place] [address]- 2511 September, [facility] [address] [id number] [place] [address]- 9067 September, [facility] [address] [id number] [place] [address]- 2689 September, [facility] [address] [id number] [place] [address]- 1650 September, [facility] [address] [id number] [place] [address]- 2732 September, [facility] [address] [id number] [place] [address]- 8922 September, [facility] [address] [id number] [place] [address]- 7223 Aug, [facility] [address] [id number] [place] [address]- 6253 Aug, [facility] [address] [id number] [place] [address]- 2673 Aug, [facility] [address] [id number] [place] [address]- 5615 Aug, [facility] [place] [facility] [address] [id number] [place] [address]- 0709 18 Aug, 2011 [facility] [place] [facility] [address] [id number] [place] [address]- 6300 17 Aug, 2011 [facility] [place] [facility] [address] [id number] [place] [address]- 5176 13 Aug, 2011 [facility] [place] [facility] [address] [id number] [place] [address]- 0056 12 Aug, 2011 [facility] [place] [facility] [address] [id number] [place] [address]- 8183 10 Aug, 2011 [facility] [address] [id number] [place] [address]- 7032 09 Aug, 2011 [facility] [place] [facility] [address] [id number] [place] [address]- 6416 Aug, [facility] [address] [id number] [place] [address]- 9036 Aug, [facility] [place] [facility] [address] [id number] [place] [address]- 2627 29 Jul, 2011 [facility] [address] [id number] [place] [address]- 2401 28 Jul, 2011 [facility] [address] [id number] [place] [address]- 5265 27 Jul, 2011 [facility] [address] [facility] [id number] [place] [address]- 3059 Jul, [facility] [place] [facility] [address] [id number] [place] [address]- 3111 Jul, [facility] [address] [id number] [place] [address]- 0054 21 Jul, 2011 [facility] [place] [facility] [address] [facility] [id number] [place] [address]- 8168 14 Jul, 2011 [facility] [address] [id number] [place] [address]- 6947 13 Jul, 2011 [facility] [place] [facility] [address] [facility] [id number] [place] [address]- 6771 07 Jul, 2011 [facility] [place] [facility] [address] [id number] [place] [address]- 0104 24 Jun, 2011 [facility] [place] [facility] [address] [id number] [place] [address]- 1965 Jun, [facility] [place] [facility] [address] [facility] [id number] [place] [address]- 1616 Jun, [facility] [place] [facility] [address] [id number] [place] [address]- 5891 14 Jun, 2011 [facility] [address] [id number] [place] [address]- 7895 Jun, [facility] [place] [facility] [address] [id number] [place] [address]- 9726 Jun, [facility] [place] [facility] [address] [id number] [place] [address]- 6115 Jun, [facility] [place] [facility] [address] [id number] [place] [address]- 9676 May, [facility] [place] [facility] [address] [id number] [place] [address]- 4438 May, [facility] [address] [id number] [place] [address]- 5170 May, [facility] [address] [id number] [place] [address]- 8053 May, [facility] [address] [id number] [place] [address]- 3079 May, [facility] [address] [id number] [place] [address]- 9858 May, [facility] [place] [facility] [address] [id number] [place] [address]- 2576 May, [facility] [address] [id number] [place] [address]- 3216 Apr, [facility] [place] [facility] [address] [id number] [place] [address]- 6370 Apr, [facility] [place] [facility] [address] [id number] [place] [address]- 9080 Apr, [facility] [place] [facility] [address] [id number] [place] [address]- 0813 Apr, [facility] [place] [facility] [address] [id number] [place] [address]- 4164 Apr, [facility] [place] [facility] [address] [id number] [place] [address]- 8574 Apr, [facility] [place] [facility] [address] [id number] [place] [address] Apr, [facility] [place] [facility] [address] [id number] [place] [address]- 7731 Apr, [facility] [place] [facility] [address] [id number] [place] [address]- 0209 Apr, [facility] [place] [facility] [address] [id number] [place] [address]- 2500 Mar, [facility] [place] [facility] [address] [id number] [place] [address]- 5392 Mar, [facility] [place] [facility] [address] [id number] [place] [address]- 4942 Mar, [facility] [place] [facility] [address] [id number] [place] [address]- 2872 Mar, [facility] [place] [facility] [address] [id number] [place] [address]- 7990 Mar, [facility] [place] [facility] [address] [id number] [place] [address]- 1826 Feb, [facility] [place] [facility] [address] [id number] [place] [address]- 7571 Feb, [facility] [place] [facility] [address] [id number] [place] [address]- 3365 Feb, [facility] [place] [facility] [address] [id number] [place] [address]- 5557 Dec, [facility] [place] [facility] [address] [id number] [place] [address] Nov, [facility] [place] [facility] [address] [id number] [place] [address]- 0717 Apr, [facility] [place] [facility] [address] [id number] [place] [address]- 7977 20 Apr, 2010 [facility] [address] [id number] [place] [address]- 0366 16 Apr, 2010 [facility] [place] [facility] [address] [id number] [place] [address] 2546 13 Apr, 2010 [facility] [address] [id number] [place] [address] 2546 09 Apr, 2010 [facility] [address] [id number] [place] [address] 2546 06 Apr, 2010 [facility] [address] [id number] [place] [address]- 9876 Apr, [facility] [address] [id number] [place] [address]- 2548 Apr, [facility] [address] [id number] [place] [address] 2549 29 Mar, 2010 [facility] [address] [id number] [place] [address] 2545 24 Mar, 2010 [facility] [address] [id number] [place] [address] 2541 Mar, [facility] [address] [id number] [place] [address]- 2543 23 Mar, 2010 [facility] [address] [id number] [place] [address] 2546 Mar, [facility] [address] [id number] [place] [address] 2546 22 Mar, 2010 [facility] [place] [facility] [address] [id number] [place] [address] 2546 15 Mar, 2010 [facility] [place] [facility] [address] [id number] [place] [address] 2546 15 Mar, 2010 [facility] [address] [id number] [place] [address] 2546 Mar, [facility] [address] [facility] [id number] [place] [address]- 74[address] Mar, IMMUNIZATIONS Vaccine Route Administration Date Status PPSV23 (PNEUMOVAX) IM Intramuscular Apr 05, 2017 Administered SOCIAL HISTORY Never Assessed REASON FOR VISIT pneumonia shot---[place],CCMA PLAN OF CARE VITAL SIGNS MEDICATIONS Unknown Medications RESULTS No Results PROCEDURES Procedure Date Ordered Result Body Site PPSV23 (PNEUMOVAX) Apr 05, 2017 ADMN PNEUMCOC VAC NO FEE SCHED DAY Apr 05, 2017 SINGLE IMMUNIZATION ADMIN Apr 05, 2017 INSTRUCTIONS MEDICATIONS ADMINISTERED No Known Medications [...]
--- OUTSIDE RECORDS SUMMARY | 2018-04-22 23:29 | XMS REPORT ---
Author Author MARY FRAGOSO [facility] Address [address] [place] [address] Care Team Providers Care Dispatch Coordinator Name Role Phone MARY FRAGOSO Unavailable PROBLEMS Type Condition ICD9-CM Code YOR72-WE Code Onset Dates Condition Status SNOMED Code Problem Severe sleep apnea G47.30 Active 06665161 Problem Chronic kidney disease, stage 3 (moderate) N18.3 Active 614142938 Problem Decreased diffusion capacity R94.2 Active 59691160 Problem Anemia in other chronic diseases classified elsewhere D63.8 Active 584720448 Problem Stenosis of carotid artery, unspecified laterality I65.29 Active 36107745 Problem Type 2 diabetes mellitus with diabetic polyneuropathy E11.42 Active 101779426 Problem Trochanteric bursitis of left hip M70.62 Active [id number] Problem Diarrhea, unspecified type R19.7 Active 85019643 Problem Anxiety about health F41.8 Active 760843494 Problem Transient cerebral ischemia, unspecified type G45.9 Active 425409208 Problem Aortic valve sclerosis I35.8 Active 02603120 Problem Generalized osteoarthritis M15.9 Active 153818132 Problem Coronary artery disease involving [place] coronary artery of [place] heart, angina presence unspecified I25.10 Active 7426877637957 Problem Hypoxemia R09.02 Active 913948155 Problem Presence of IVC filter Z95.828 Active 791281569 Problem Port catheter in place Z95.828 Active 950745709 Problem BMI 50.0-59.9, adult Z68.43 Active 069360788 Problem Mixed hyperlipidemia E78.2 Active 516159197 Problem Type 2 diabetes mellitus with hyperglycemia E11.65 Active 06784825 Problem Essential hypertension I10 Active 98020163 Problem Iron deficiency anemia, unspecified iron deficiency anemia type D50.9 Active 96959607 Problem Type 2 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 Active 34428601 Problem Renal osteodystrophy N25.0 Active 89052422 Problem Type 2 diabetes mellitus with foot ulcer E11.621 Active 241378263 Problem 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 Active 6072455 ALLERGIES No Information ENCOUNTERS Encounter Location Date Diagnosis [facility] [id number] [place] [address] 51748- 4125 04 Oct, 2017 [facility] [id number] [place] [address] 25295 -8666 September, BMI 50.0-59.9, adult Z68.43 [facility] [id number] [place] [address] 53441- 5165 September, [facility] [address] 92064- 8387 September, [facility] [id number] [place] [address] 40370- 0425 24 Aug, 2017 Type 2 diabetes mellitus with foot ulcer E11.621 ; Transient cerebral ischemia, unspecified type G45.9 ; Essential hypertension I10 ; Mixed hyperlipidemia E78.2 and BMI 50.0-59.9, adult Z68.43 [facility] [id number] [place] [address] 46794- 1266 17 Aug, 2017 [facility] [id number] [place] [address] 69097- 7848 14 Jul, 2017 Anxiety about health F41.8 and Mixed hyperlipidemia E78.2 [facility] [id number] [place] [address] 94721- 2370 13 Jul, 2017 [facility] [id number] [place] [address] 66354- 1774 12 Jun, 2017 [facility] [id number] [place] [address] 05567- 9440 12 Jun, 2017 Type 2 diabetes mellitus with hyperglycemia E11.65 ; Type 2 diabetes mellitus with foot ulcer E11.621 ; Port catheter in place Z95.828 ; 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 ; Contact with and (suspected) exposure to potentially hazardous body fluids Z77.21 and BMI 50.0-59.9, adult Z68.43 [facility] [id number] [place] [address] 15266- 3290 May, [facility] [id number] [place] [address] 33118- 8991 May, Open wound of right great toe, subsequent encounter S91.101D [facility] [facility] [address] 20254- 8341 May, [facility] [id number] [place] [address] 90502- 9610 Apr, [facility] [address] 59452- 0441 Apr, [facility] [address] 61854- 5073 Apr, [facility] [facility] [address] 05164- 6152 14 Apr, 2017 Type 2 diabetes mellitus with diabetic polyneuropathy E11.42 [facility] [id number] [place] [address] 28820- 5840 13 Apr, 2017 Open wound of right great toe, subsequent encounter S91.101D [facility] [id number] [place] [address] 24239- 3089 08 Apr, 2017 Open wound of right great toe, subsequent encounter S91.101D ; Breast pain, left N64.4 ; Breast cancer screening Z12.31 ; Type 2 diabetes mellitus with foot ulcer E11.621 ; Essential hypertension I10 and BMI 50.0-59.9, adult Z68.43 [facility] [id number] [place] [address] 69406- 6852 Mar, Encounter for immunization Z23 [facility] [facility] [id number] [place] [address] 26720- 4648 Mar, [facility] [id number] [place] [address] 23782- 0073 Mar, [facility] [id number] [place] [address] 11820- 4371 Mar, Type 2 diabetes mellitus with diabetic polyneuropathy E11.42 ; Type 2 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 ; Type 2 diabetes mellitus with foot ulcer E11.621 ; Essential hypertension I10 ; Hypoxemia R09.02 and Generalized osteoarthritis M15.9 [place] [address] 72174- 4712 Mar, Chronic kidney disease, stage 3 (moderate) N18.3 ; Acute cystitis without hematuria N30.00 ; Essential hypertension I10 ; Muscle spasms of neck M62.838 ; Type 2 diabetes mellitus with diabetic polyneuropathy E11.42 and BMI 50.0-59.9, adult Z68.43 [facility] [id number] [place] [address] 03897- 6492 Feb, [facility] [id number] [place] [address] 46954 -0417 Feb, [facility] [address] 25945- 9321 Feb, [facility] [id number] [place] [address] 31608- 1756 Feb, [facility] [id number] [place] [address] 57653- 2461 Feb, [facility] [address] 53934- 9493 Feb, [facility] [id number] [place] [address] 90626- 8132 Feb, Mixed hyperlipidemia E78.2 [facility] [address] 89143- 8030 Feb, [facility] [id number] [place] [address] 90562- 3534 Jan, [place] [address] [place] [address]- 7568 14 Jan, 2017 Generalized osteoarthritis M15.9 [facility] [id number] [place] [address] 77601- 4175 Oct, [place] [address] [place] [address] 40651- 5792 Jul, [facility] [id number] [place] [address] 04339- 3493 Jul, [place] [address] [place] [address] 61791- 6006 Jul, Type 2 diabetes mellitus with hyperglycemia E11.65 ; Chronic kidney disease, stage 3 (moderate) N18.3 ; Type 2 diabetes mellitus with foot ulcer E11.621 ; Type 2 diabetes mellitus with diabetic polyneuropathy E11.42 ; Generalized osteoarthritis M15.9 ; Trochanteric bursitis of left hip M70.62 and Tinea pedis of both feet B35.3 [place] [address] [address]- 8800 13 Jun, 2016 [place] [address] [place] [address] 79924- 6342 Apr, [place] [address] [place] [address] 33530- 4227 Apr, [place] [address] [place] [address] 89336- 4145 Mar, [place] [address] [place] [address] 13045- 8122 Feb, Encounter for immunization Z23 [facility] [id number] [place] [address] 191643- 8381 Feb, [place] [place] [address] [place] [address]- 6209 Feb, Type 2 diabetes mellitus with hyperglycemia E11.65 ; Encounter for immunization Z23 ; Diarrhea, unspecified type R19.7 ; Essential hypertension I10 ; Mixed hyperlipidemia E78.2 ; Hypoxia R09.02 ; 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 and Type 2 diabetes mellitus with foot ulcer E11.621 [facility] [address] [place] [address] 11110- 6844 23 Jan, 2016 [facility] [id number] [place] [address] 36160- 3031 Jan, Type 2 diabetes mellitus with hyperglycemia E11.65 and Pneumonia due to infectious organism, unspecified laterality, unspecified part of lung J18.9 [facility] [address] [place] [address] 55558- 3366 Jan, [facility] [id number] [place] [address] 78979- 6130 Jan, [facility] [id number] [place] [address] 55367- 7835 Oct, Type 2 diabetes mellitus with hyperglycemia E11.65 ; Generalized osteoarthritis M15.9 and Chronic prescription opiate use Z79.891 [facility] [address] [place] [address] 91788- 6267 September, [facility] [id number] [place] [address] 25527- 4830 Aug, [facility] [address] [place] [address] 46122- 6642 Aug, [facility] [address] [place] [address] 62125- 6983 Aug, [facility] [address] [place] [address] 51027- 1906 Aug, [facility] [id number] [place] [address] 44893- 3779 Jun, [facility] [address] [place] [address] 82734- 3616 Jun, Type 2 diabetes mellitus with hyperglycemia E11.65 ; Mixed hyperlipidemia E78.2 ; Vaginal itching L29.8 ; Neck muscle spasm M62.838 and Skin abrasion T14.8 [place] [facility] [id number] [place] [address] 93737- 6710 Apr, [place] [address] 66573- 7072 Apr, [place] [address] 56524- 1627 Mar, [place] [address] 32373- 1755 Feb, [address] 21894- 0188 Feb, Type 2 diabetes mellitus with hyperglycemia E11.65 ; Type 2 diabetes mellitus with foot ulcer E11.621 ; Type 2 diabetes mellitus with diabetic polyneuropathy E11.42 and Encounter for immunization Z23 [address] 97690- 6717 Jan, Hypertension 401.9 ; Uncontrolled type 2 diabetes mellitus 250.02 ; Right shoulder pain 719.41 and Ulcer of heel and midfoot 707.14 [id number] [place] [address] 42249- 2959 Dec, Diabetes with other specified manifestations, type II or unspecified type, not stated as uncontrolled 250.80 ; Ulcer of heel and midfoot 707.14 ; Hypertension 401.9 ; Hip pain, left 719.45 and Acute anxiety 300.00 [facility] [id number] [place] [address] 79298- 3509 Nov, [place] [address] 30177- 1927 Nov, [place] [address] 06092- 4749 September, Anxiety attack 300.01 and Cellulitis 682.9 [place] [address] 36119- 2546 September, [facility] [place] [facility] [address] [id number] [place] [address]- 5915 September, [facility] [place] [facility] [address] [id number] [place] [address]- 2811 September, [facility] [place] [facility] [address] [id number] [place] [address]- 5410 Aug, [facility] [place] [facility] [address] [id number] [place] [address]- 0601 Aug, [facility] [place] [facility] [address] [id number] [place] [address]- 6511 Jul, [facility] [place] [facility] [address] [id number] [place] [address]- 6154 Jul, [facility] [place] [facility] [address] [id number] [place] [address]- 5849 Jul, [facility] [place] [facility] [address] [id number] [place] [address]- 1457 May, [facility] [place] [facility] [address] [id number] [place] [address]- 7775 May, [facility] [place] [facility] [address] [id number] [place] [address]- 2860 Mar, [facility] [place] [facility] [address] [id number] [place] [address]- 3009 Mar, [facility] [place] [facility] [address] [id number] [place] [address]- 8817 Mar, [facility] [place] [facility] [address] [id number] [place] [address]- 7151 Mar, [facility] [place] [facility] [address] [id number] [place] [address]- 4340 Mar, [facility] [place] [facility] [address] [id number] [place] [address]- 1441 Mar, [facility] [place] [facility] [address] [id number] [place] [address]- 9810 07 Mar, 2014 [facility] [place] [facility] [address] [id number] [place] [address]- 2493 14 Feb, 2014 [facility] [place] [facility] [address] [id number] [place] [address]- 9486 14 Feb, 2014 [facility] [place] [facility] [address] [id number] [place] [address]- 8367 30 Sep, 2013 [facility] [place] [facility] [address] [id number] [place] [address]- 2540 30 Sep, 2013 [facility] [place] [facility] [address] [id number] [place] [address]- 8864 26 Sep, 2013 [facility] [place] [facility] [address] [id number] [place] [address]- 7988 26 Jan, 2013 [facility] [place] [facility] [address] [id number] [place] [address]- 2541 25 Jan, 2013 [facility] [place] [facility] [address] [id number] [place] [address]- 254 25 Sep, 2013 [facility] [place] [facility] [address] [id number] [place] [address]- 2545 25 Sep, 2013 [facility] [place] [facility] [address] [id number] [place] [address]- 2545 25 Sep, 2013 [facility] [place] [facility] [address] [id number] [place] [address] 2543 18 Sep, 2013 [facility] [place] [facility] [address] [id number] [place] [address]- 254 18 Sep, 2013 [facility] [place] [facility] [address] [id number] [place] [address] 2547 06 Sep, 2013 [facility] [place] [facility] [address] [id number] [place] [address]- 2546 06 Sep, 2013 [facility] [place] [facility] [address] [id number] [place] 6283 05 Sep, 2013 [facility] [place] [facility] [address] [id number] [place] [address]- 4387 Sep, 2013 [facility] [place] [facility] [address] [id number] [place] [address]- 1205 Jan, 2013 [facility] [place] [facility] [address] [id number] [place] [address]- 8687 Jan, 2013 [facility] [place] [facility] [address] [id number] [place] [address]- 9937 Jan, 2013 [facility] [place] [facility] [address] [id number] [place] [address]- 4275 Jan, 2013 [facility] [place] [facility] [address] [id number] [place] [address]- 4886 Dec, 2013 [facility] [place] [facility] [address] [id number] [place] [address]- 4169 Dec, 2013 [facility] [place] [facility] [address] [id number] [place] [address]- 6778 Dec, [facility] [place] [facility] [address] [id number] [place] [address]- 7478 Dec, [facility] [place] [facility] [address] [id number] [place] [address]- 9973 Dec, [facility] [place] [facility] [address] [id number], [place] [address]- 9047 Dec, [facility] [place] [facility] [address] [id number], [place] [address]- 5664 Dec, [facility] [place] [facility] [address] [id number] [place] [address]- 3559 Dec, [facility] [place] [facility] [address] [id number] [place] [address]- 8702 Dec, [facility] [place] [facility] [address] [id number] [place] [address]- 6816 Dec, [facility] [place] [facility] [address] [id number], [place] [address]- 6365 14 Nov, 2013 [facility] [place] [facility] [address] [id number] [place] [address]- 7856 14 Nov, 2013 [facility] [place] [facility] [address] [id number] [place] [address]- 1670 Nov, [facility] [place] [facility] [address] [id number] [place] [address]- 4305 Nov, 2013 [facility] [place] [facility] [address] [id number] [place] [address]- 7959 Nov, [facility] [place] [facility] [address] [id number] [place] [address]- 0783 Nov, [facility] [place] [facility] [address] [id number] [place] [address]- 8348 Oct, [facility] [place] [facility] [address] [id number] [place] [address]- 6820 Oct, [facility] [place] [facility] [address] [id number] [place] [address]- 4431 Oct, [facility] [place] [facility] [address] [id number] [place] [address]- 8267 Oct, [facility] [place] [facility] [address] [id number] [place] [address]- 0484 Oct, [facility] [place] [facility] [address] [id number] [place] [address]- 1745 Oct, [facility] [place] [facility] [address] [id number], [place] [address]- 4373 Oct, [facility] [place] [facility] [address] [id number] [place] [address]- 2004 Oct, [facility] [place] [facility] [address] [id number] [place] [address]- 0870 Oct, [facility] [place] [facility] [address] [id number] [place] [address]- 2019 Oct, [facility] [place] [facility] [address] [id number] [place] [address]- 6666 Oct, [facility] [place] [facility] [address] [id number] [place] [address]- 8819 Oct, [facility] [place] [facility] [address] [id number] [place] [address]- 2316 September, [facility] [place] [facility] [address] [id number] [place] [address]- 8768 September, [facility] [place] [facility] [address] [id number] [place] [address]- 5822 September, [facility] [place] [facility] [address] [id number] [place] [address]- 7831 Aug, [facility] [place] [facility] [address] [id number] [place] [address]- 6784 Aug, [facility] [place] [facility] [address] [id number] [place] [address]- 6902 Jul, [facility] [place] [facility] [address] [id number] [place] [address]- 3472 Jul, [facility] [place] [facility] [address] [id number] [place] [address]- 1330 Jul, [facility] [place] [facility] [address] [id number] [place] [address]- 0404 Jul, [facility] [place] [facility] [address] [id number] [place] [address]- 6562 Jul, [facility] [place] [facility] [address] [id number] [place] [address]- 4378 Jul, [facility] [place] [facility] [address] [id number] [place] [address]- 9331 Jul, [facility] [place] [facility] [address] [id number] [place] [address]- 3086 Jul, [facility] [place] [facility] [address] [id number] [place] [address]- 4527 Jul, [facility] [place] [facility] [address] [id number] [place] 8404 Jul, [facility] [place] [facility] [address] [id number] [place] [address]- 8546 Jun, [facility] [place] [facility] [address] [id number] [place] [address]- 8716 Jun, [facility] [place] [facility] [address] [id number] [place] [address]- 4569 Jun, [facility] [place] [facility] [address] [id number] [place] [address]- 8898 Jun, [facility] [place] [facility] [address] [id number] [place] [address]- 4759 May, [facility] [place] [facility] [address] [id number] [place] [address]- 5850 May, [facility] [place] [facility] [address] [id number] [place] [address]- 2407 Apr, [facility] [place] [facility] [address] [id number] [place] [address]- 4858 Apr, [facility] [place] [facility] [address] [id number] [place] [address]- 2702 Apr, [facility] [place] [facility] [address] [id number] [place] [address]- 5391 Apr, [facility] [place] [facility] [address] [id number] [place] [address]- 7511 Apr, [facility] [place] [facility] [address] [id number] [place] 9997 Apr, [facility] [place] [facility] [address] [id number] [place] 1594 Apr, [facility] [place] [facility] [address] [id number] [place] [address]- 2216 Apr, [facility] [place] [facility] [address] [id number] [place] [address]- 8260 Mar, [facility] [address] [id number] [place] [address]- 7650 Mar, [facility] [place] [facility] [address] [id number] [place] [address]- 6967 Mar, [facility] [address] [id number] [place] [address]- 9544 Mar, [facility] [place] [facility] [address] [id number] [place] [address]- 4197 Mar, [facility] [place] [facility] [address] [id number] [place] [address] Mar, [facility] [place] [facility] [address] [id number] [place] [address] Feb, [facility] [place] [facility] [address] [id number] [place] [address] 30 Feb, 2013 [facility] [address] [id number] [place] [address] Feb, [facility] [place] [facility] [address] [id number] [place] [address] 18 Feb, 2013 [facility] [address] [id number] [place] [address] Feb, [facility] [place] [facility] [address] [id number] [place] [address] 14 Feb, 2013 [facility] [place] [facility] [address] [id number] [place] [address] 04 Feb, 2013 [facility] [place] [facility] [address] [id number] [place] [address] 27 Jan, 2013 [facility] [place] [facility] [address] [id number] [place] [address] 26 Jan, 2013 [facility] [place] [facility] [address] [id number] [place] [address] Jan, [facility] [place] [facility] [address] [id number] [place] [address] Jan, [facility] [place] [facility] [address] [id number] [place] [address] Dec, [facility] [place] [facility] [address] [id number] [place] [address] Dec, [facility] [place] [facility] [address] [id number] [place] [address] Dec, [facility] [place] [facility] [address] [id number] [place] [address] Nov, [facility] [place] [facility] [address] [id number] [place] [address] Nov, [facility] [place] [facility] [address] [id number] [place] [address]- [address] Nov, [facility] [place] [facility] [address] [id number] [place] [address]- [address] Nov, [facility] [place] [facility] [address] [id number] [place] [address] Nov, [facility] [place] [facility] [address] [id number] [place] [address] Nov, [facility] [place] [facility] [address] [id number] [place] [address] Oct, [facility] [place] [facility] [address] [id number], [place] [address] Oct, [facility] [place] [facility] [address] [id number] [place] [address] Oct, [facility] [place] [facility] [address] [id number] [place] [address] Oct, [facility] [place] [facility] [address] [id number], [place] [address] Oct, [facility] [place] [facility] [address] [id number], [place] [address] Oct, [facility] [address] [id number] [place] [address] September, [facility] [address] [id number] [place] [address] September, [facility] [address] [id number] [place] [address] September, [facility] [address] [id number] [place] [address] September, [facility] [address] [id number] [place] [address] Aug, [facility] [address] [id number] [place] [address] Aug, [facility] [address] [id number] [place] [address] Jul, [facility] [address] [id number] [place] [address] Jul, [facility] [address] [id number] [place] [address]- [address] 18 Jul, 2012 [facility] [address] [facility] [id number] [place] [address] 15 Jul, 2012 [facility] [facility] [address] [id number] [place] [address] Jul, [facility] [address] [id number], [place] [address] 08 Jul, 2012 [facility] [address] [id number] [place] [address] 20 Jun, 2012 [facility] [address] [id number] [place] [address] Jun, [facility] [address] [facility] [id number], [place] [address] May, [facility] [address] [id number] [place] [address] May, [facility] [address] [id number] [place] [address] Apr, [facility] [place] [facility] [address] [id number] [place] [address] 2964 18 Apr, 2012 [facility] [place] [facility] [address] [id number] [place] [address] 2966 13 Apr, 2012 [facility] [place] [facility] [address] [id number] [place] [address] 8060 13 Apr, 2012 [facility] [place] [facility] [address] [id number] [place] [address] Apr, [facility] [address] [id number] [place] [address] 7847 Apr, [facility] [address] [id number] [place] [address]29 Apr, [facility] [place] [facility] [address] [id number] [place] [address] Apr, [facility] [place] [facility] [address] [id number] [place] [address] 0469 Apr, [facility] [place] [facility] [address] [id number] [place] [address] 7061 Apr, [facility] [place] [facility] [address] [id number] [place] [address] 5946 Apr, [facility] [place] [facility] [address] [id number] [place] [address] 8119 Apr, [facility] [place] [facility] [address] [id number] [place] [address] 8843 Apr, [facility] [place] [facility] [address] [id number] [place] [address]- 1017 05 Apr, 2012 [facility] [place] [facility] [address] [id number] [place] [address] Apr, [facility] [place] [facility] [address] [id number] [place] [address] 8078 Apr, [facility] [place] [facility] [address] [id number] [place] [address] 5028 Mar, [facility] [place] [facility] [address] [facility] [id number] [place] [address] 8264 Mar, [facility] [place] [facility] [address] [id number] [place] [address] 5914 Mar, [facility] [place] [facility] [address] [id number] [place] [address]- 0799 Mar, [facility] [place] [facility] [address] [id number], [place] [address] 9[address] Mar, [facility] [place] [facility] [address] [facility] [id number] [place] [address] 8262 Mar, [facility] [place] [facility] [address] [id number], [place] [address]- 1568 Mar, [facility] [place] [facility] [address] [id number], [place] [address] Mar, [facility] [place] [facility] [address] [facility] [id number], [place] [address]- [address] Mar, [facility] [place] [facility] [address] [id number], [place] [address] Mar, [facility] [place] [facility] [address] [id number], [place] [address] 4[address] Feb, [facility] [place] [facility] [address] [id number], [place] [address] 87[address] Feb, [facility] [place] [facility] [address] [facility] [id number], [place] [address] 9028 Feb, [facility] [place] [facility] [address] [facility] [id number], [place] [address]- 1330 Feb, [facility] [place] [facility] [address] [id number] [place] [address]- 5799 Feb, [facility] [address] [id number] [place] [address] 9575 Feb, [facility] [place] [facility] [address] [id number] [place] [address] Jan, [facility] [place] [facility] [address] [id number] [place] [address]- 2980 Dec, [facility] [place] [facility] [address] [id number] [place] [address]- 1714 Dec, [facility] [place] [facility] [address] [id number] [place] [address]- 5720 Dec, [facility] [place] [facility] [address] [id number] [place] [address]- 9744 Dec, [facility] [address] [id number] [place] [address]- 7990 Nov, [facility] [address] [id number] [place] [address]- 5712 Nov, [facility] [place] [facility] [address] [id number] [place] [address]- 4529 Nov, [facility] [address] [id number] [place] [address]- 6048 Nov, [facility] [place] [facility] [address] [id number] [place] [address]- 0663 Oct, [facility] [place] [facility] [address] [id number] [place] [address]- 7205 Oct, [facility] [place] [facility] [address] [id number] [place] [address]- 2188 Oct, [facility] [place] [facility] [address] [id number] [place] [address]- 7446 Oct, [facility] [place] [facility] [address] [id number] [place] [address]- 6177 Oct, [facility] [place] [facility] [address] [id number] [place] [address]- 0392 September, [facility] [address] [id number] [place] [address]- 0686 September, [facility] [address] [id number] [place] [address] 3641 September, [facility] [address] [id number] [place] [address] 3121 September, [facility] [address] [id number] [place] [address]- 2351 September, [facility] [address] [id number] [place] [address]- 4170 September, [facility] [address] [id number] [place] [address]- 5314 September, [facility] [address] [id number] [place] [address]- 5385 September, [facility] [address] [id number] [place] [address]- 2307 Aug, [facility] [address] [id number] [place] [address]- 4323 Aug, [facility] [place] [facility] [address] [id number] [place] [address]- 6393 Aug, [facility] [place] [facility] [address] [id number], [place] [address]- 5407 Aug, [facility] [place] [facility] [address] [id number] [place] [address]- 0858 18 Aug, 2011 [facility] [place] [facility] [address] [id number] [place] [address]- 2446 17 Aug, 2011 [facility] [place] [facility] [address] [id number] [place] [address]- 9862 13 Aug, 2011 [facility] [place] [facility] [address] [id number] [place] [address]- 4873 12 Aug, 2011 [facility] [address] [id number] [place] [address]- 7237 10 Aug, 2011 [facility] [place] [facility] [address] [id number] [place] [address] 09 Aug, 2011 [facility] [place] [facility] [address] [id number] [place] [address]- 2233 Aug, [facility] [place] [facility] [address] [id number] [place] [address]- 0972 Aug, [facility] [place] [facility] [address] [id number] [place] [address]- 8522 29 Jul, 2011 [facility] [place] [facility] [address] [id number] [place] [address]- 5474 28 Jul, 2011 [facility] [place] [facility] [address] [facility] [id number] [place] [address]- 3836 27 Jul, 2011 [facility] [place] [facility] [address] [id number] [place] [address]- 0637 23 Jul, 2011 [facility] [place] [facility] [address] [id number] [place] [address]- 8241 21 Jul, 2011 [facility] [place] [facility] [address] [facility] [id number] [place] [address]- 2959 21 Jul, 2011 [facility] [place] [facility] [address] [id number] [place] [address]- 5395 14 Jul, 2011 [facility] [place] [facility] [address] [id number] [place] [address]- 2263 13 Jul, 2011 [facility] [place] [facility] [address] [id number] [place] [address]- 6811 07 Jul, 2011 [facility] [place] [facility] [address] [facility] [id number] [place] [address]- 3754 24 Jun, 2011 [facility] [place] [facility] [address] [facility] [id number] [place] [address]- 4541 23 Jun, 2011 [facility] [place] [facility] [address] [id number] [place] [address]- 5844 Jun, [facility] [place] [facility] [address] [id number] [place] [address]- 5946 Jun, [facility] [place] [facility] [address] [id number] [place] [address]- 5226 Jun, [facility] [place] [facility] [address] [id number] [place] [address]- 6356 Jun, [facility] [place] [facility] [address] [id number] [place] [address]- 2904 Jun, [facility] [place] [facility] [address] [id number] [place] [address]- 8134 May, [facility] [address] [id number] [place] [address]- 0559 May, [facility] [address] [id number] [place] [address]- 1575 May, [facility] [place] [facility] [address] [id number] [place] [address]- 6488 May, [facility] [place] [facility] [address] [id number] [place] [address]- 0470 May, [facility] [place] [facility] [address] [id number] [place] [address]- 9900 May, [facility] [place] [facility] [address] [id number] [place] [address]- 8280 May, [facility] [place] [facility] [address] [id number] [place] [address]- 1581 Apr, [facility] [place] [facility] [address] [id number] [place] [address]- 5466 Apr, [facility] [place] [facility] [address] [id number] [place] [address]- 9907 Apr, [facility] [place] [facility] [address] [id number], [place] [address]- 2019 Apr, [facility] [place] [facility] [address] [id number] [place] [address] Apr, [facility] [place] [facility] [address] [id number] [place] [address]- 6709 Apr, [facility] [place] [facility] [address] [id number] [place] [address]- 1936 Apr, [facility] [place] [facility] [address] [id number] [place] [address]- 0908 Apr, [facility] [place] [facility] [address] [id number] [place] [address] Apr, [facility] [place] [facility] [address] [id number] [place] [address]- 3963 Mar, [facility] [place] [facility] [address] [id number] [place] [address]- 9317 Mar, [facility] [place] [facility] [address] [id number] [place] [address]- 9376 Mar, [facility] [place] [facility] [address] [id number] [place] [address]- 4394 Mar, [facility] [place] [facility] [address] [id number] [place] [address]- 8803 Mar, [facility] [place] [facility] [address] [id number], [place] [address]- 2186 Feb, [facility] [place] [facility] [address] [id number] [place] [address]- 3520 Feb, [facility] [place] [facility] [address] [id number] [place] [address] Feb, [facility] [place] [facility] [address] [id number] [place] [address]- 8915 Dec, [facility] [place] [facility] [address] [id number] [place] [address]- 3982 Nov, [facility] [place] [facility] [address] [id number] [place] [address]- 3477 22 Apr, 2010 [facility] [address] [id number] [place] [address]- 2896 20 Apr, 2010 [facility] [address] [id number] [place] [address] 2546 16 Apr, 2010 [facility] [address] [id number] [place] [address] 2546 13 Apr, 2010 [facility] [address] [id number] [place] [address] 2546 09 Apr, 2010 [facility] [address] [id number] [place] [address] 2546 06 Apr, 2010 [facility] [address] [id number] [place] [address] 2546 06 Apr, 2010 [facility] [address] [id number] [place] [address] 2549 Apr, [facility] [address] [id number] [place] [address] 2542 29 Mar, 2010 [facility] [address] [id number] [place] [address] 2549 24 Mar, 2010 [facility] [address] [id number] [place] [address] 2543 Mar, [facility] [address] [id number] [place] [address] 2546 Mar, [facility] [address] [id number] [place] [address] 2546 Mar, [facility] [place] [facility] [address] [id number] [place] [address] 2546 Mar, [facility] [address] [id number] [place] [address] 2546 15 Mar, 2010 [facility] [address] [id number] [place] [address] 2546 Mar, [facility] [address] [facility] [id number] [place] [address]- 7446 Mar, [facility] [address] [facility] [id number] [place] [address]- 3900 Mar, IMMUNIZATIONS No Known Immunizations SOCIAL HISTORY Never Assessed REASON FOR VISIT Mammogram chart update PLAN OF CARE VITAL SIGNS MEDICATIONS Unknown [...]
--- OUTSIDE RECORDS SUMMARY | 2018-04-22 23:30 | XMS REPORT ---
Author Author MARY FRAGOSO [facility] Address [address] [place] [address] Care Team Providers Care Career Services Coordinator Name Role Phone MARY FRAGOSO Unavailable PROBLEMS Type Condition ICD9-CM Code JJY55-LL Code Onset Dates Condition Status SNOMED Code Problem Severe sleep apnea G47.30 Active 87080269 Problem Chronic kidney disease, stage 3 (moderate) N18.3 Active 776570742 Problem Decreased diffusion capacity R94.2 Active 57097001 Problem Anemia in other chronic diseases classified elsewhere D63.8 Active 084160777 Problem Stenosis of carotid artery, unspecified laterality I65.29 Active 66712996 Problem Type 2 diabetes mellitus with diabetic polyneuropathy E11.42 Active 588344264 Problem Trochanteric bursitis of left hip M70.62 Active [id number] Problem Diarrhea, unspecified type R19.7 Active 87114408 Problem Anxiety about health F41.8 Active 647597895 Problem Transient cerebral ischemia, unspecified type G45.9 Active 182278731 Problem Aortic valve sclerosis I35.8 Active 79014937 Problem Generalized osteoarthritis M15.9 Active 146395027 Problem Coronary artery disease involving [place] coronary artery of [place] heart, angina presence unspecified I25.10 Active 6769277902387 Problem Hypoxemia R09.02 Active 873545461 Problem Presence of IVC filter Z95.828 Active 716027676 Problem Port catheter in place Z95.828 Active 702998597 Problem BMI 50.0-59.9, adult Z68.43 Active 175258515 Problem Mixed hyperlipidemia E78.2 Active 252614334 Problem Type 2 diabetes mellitus with hyperglycemia E11.65 Active 52236916 Problem Essential hypertension I10 Active 40330257 Problem Iron deficiency anemia, unspecified iron deficiency anemia type D50.9 Active 28485858 Problem Type 2 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 Active 62052590 Problem Renal osteodystrophy N25.0 Active 58806868 Problem Type 2 diabetes mellitus with foot ulcer E11.621 Active 030083108 Problem 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 Active 8526313 ALLERGIES No Information ENCOUNTERS Encounter Location Date Diagnosis [facility] [id number] [place] [address] 43524- 1771 04 Oct, 2017 [facility] [address] [place] [address] 34936 -2461 September, BMI 50.0-59.9, adult Z68.43 [facility] [id number] [place] [address] 17880- 7312 September, [facility] [address] 90008- 8661 September, [facility] [address] [place] [address] 86924- 4170 24 Aug, 2017 Type 2 diabetes mellitus with foot ulcer E11.621 ; Transient cerebral ischemia, unspecified type G45.9 ; Essential hypertension I10 ; Mixed hyperlipidemia E78.2 and BMI 50.0-59.9, adult Z68.43 [facility] [address] [place] [address] 30242- 2623 17 Aug, 2017 [facility] [address] [place] [address] 28830- 6468 14 Jul, 2017 Anxiety about health F41.8 and Mixed hyperlipidemia E78.2 [facility] [address] [place] [address] 40032- 1341 13 Jul, 2017 [facility] [address] [place] [address] 79498- 7585 12 Jun, 2017 [facility] [address] [place] [address] 40874- 9408 12 Jun, 2017 Type 2 diabetes mellitus with hyperglycemia E11.65 ; Type 2 diabetes mellitus with foot ulcer E11.621 ; Port catheter in place Z95.828 ; 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 ; Contact with and (suspected) exposure to potentially hazardous body fluids Z77.21 and BMI 50.0-59.9, adult Z68.43 [facility] [address] [place] [address] 73691- 5178 May, [facility] [address] [place] [address] 51201- 3494 May, Open wound of right great toe, subsequent encounter S91.101D [facility] [address] 00663- 9489 May, [facility] [address] [place] [address] 87261- 1707 Apr, [facility] [address] 27511- 5620 Apr, [facility] [address] 99798- 6388 Apr, [facility] [address] 53411- 0704 14 Apr, 2017 Type 2 diabetes mellitus with diabetic polyneuropathy E11.42 [facility] [address] [place] [address] 61312- 7012 13 Apr, 2017 Open wound of right great toe, subsequent encounter S91.101D [facility] [address] [place] [address] 99257- 0133 08 Apr, 2017 Open wound of right great toe, subsequent encounter S91.101D ; Breast pain, left N64.4 ; Breast cancer screening Z12.31 ; Type 2 diabetes mellitus with foot ulcer E11.621 ; Essential hypertension I10 and BMI 50.0-59.9, adult Z68.43 [facility] [address] [place] [address] 81405- 5607 Mar, Encounter for immunization Z23 [facility] [address] [place] [address] 31145- 1262 Mar, [facility] [address] [place] [address] 36360- 0463 Mar, [facility] [address] [place] [address] 13115- 0231 Mar, Type 2 diabetes mellitus with diabetic polyneuropathy E11.42 ; Type 2 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 ; Type 2 diabetes mellitus with foot ulcer E11.621 ; Essential hypertension I10 ; Hypoxemia R09.02 and Generalized osteoarthritis M15.9 [facility] [address] 69151- 9476 Mar, Chronic kidney disease, stage 3 (moderate) N18.3 ; Acute cystitis without hematuria N30.00 ; Essential hypertension I10 ; Muscle spasms of neck M62.838 ; Type 2 diabetes mellitus with diabetic polyneuropathy E11.42 and BMI 50.0-59.9, adult Z68.43 [facility] [address] [place] [address] 28920- 8850 Feb, [facility] [address] [place] [address] 62213 -2770 Feb, [facility] [address] 98565- 4609 Feb, [facility] [address] [place] [address] 95412- 3647 Feb, [facility] [address] [place] [address] 88624- 0312 Feb, [facility] [address] 16182- 0209 Feb, [facility] [address] [place] [address] 41472- 7106 Feb, Mixed hyperlipidemia E78.2 [facility] [address] 38554- 0013 Feb, [facility] [address] [place] [address] 65448- 9989 Jan, [facility] [address] [address]- 4272 14 Jan, 2017 Generalized osteoarthritis M15.9 [facility] [address] [place] [address] 79640- 8043 Oct, [facility] [address] [place] [address] 98125- 3037 Jul, [facility] [address] [place] [address] 78064- 6879 Jul, [facility] [address] [place] [address] 09514- 8795 Jul, Type 2 diabetes mellitus with hyperglycemia E11.65 ; Chronic kidney disease, stage 3 (moderate) N18.3 ; Type 2 diabetes mellitus with foot ulcer E11.621 ; Type 2 diabetes mellitus with diabetic polyneuropathy E11.42 ; Generalized osteoarthritis M15.9 ; Trochanteric bursitis of left hip M70.62 and Tinea pedis of both feet B35.3 [facility] [address] [address]- 0595 13 Jun, 2016 [facility] [address] [place] [address] 76012- 3150 Apr, [facility] [address] [place] [address] 31764- 6604 Apr, [facility] [address] [place] [address] 73108- 9471 Mar, [facility] [address] [place] [address] 27385- 4783 Feb, Encounter for immunization Z23 [facility] [address] [place] [address] 498314- 0230 Feb, [facility] [address] [address]- 8253 Feb, Type 2 diabetes mellitus with hyperglycemia E11.65 ; Encounter for immunization Z23 ; Diarrhea, unspecified type R19.7 ; Essential hypertension I10 ; Mixed hyperlipidemia E78.2 ; Hypoxia R09.02 ; 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 and Type 2 diabetes mellitus with foot ulcer E11.621 [facility] [address] [place] [address] 41229- 1667 23 Jan, 2016 [facility] [address] [place] [address] 67112- 5227 Jan, Type 2 diabetes mellitus with hyperglycemia E11.65 and Pneumonia due to infectious organism, unspecified laterality, unspecified part of lung J18.9 [facility] [address] [place] [address] 28593- 7766 Jan, [facility] [address] [place] [address] 72330- 1178 Jan, [facility] [address] [place] [address] 38862- 4475 Oct, Type 2 diabetes mellitus with hyperglycemia E11.65 ; Generalized osteoarthritis M15.9 and Chronic prescription opiate use Z79.891 [facility] [address] [place] [address] 86064- 6399 September, [facility] [address] [place] [address] 73232- 1180 Aug, [facility] [address] [place] [address] 44462- 9654 Aug, [facility] [address] [place] [address] 98162- 0337 Aug, [facility] [address] [place] [address] 14093- 6937 Aug, [facility] [address] [place] [address] 29113- 9092 Jun, [facility] [address] [place] [address] 03819- 5038 Jun, Type 2 diabetes mellitus with hyperglycemia E11.65 ; Mixed hyperlipidemia E78.2 ; Vaginal itching L29.8 ; Neck muscle spasm M62.838 and Skin abrasion T14.8 [facility] [address] [place] [address] 54107- 0810 Apr, [facility] [address] 38775- 5566 Apr, [facility] [address] 20700- 3880 Mar, [facility] [address] 14008- 9715 Feb, [address] 82414- 0203 Feb, Type 2 diabetes mellitus with hyperglycemia E11.65 ; Type 2 diabetes mellitus with foot ulcer E11.621 ; Type 2 diabetes mellitus with diabetic polyneuropathy E11.42 and Encounter for immunization Z23 [address] 13005- 2931 Jan, Hypertension 401.9 ; Uncontrolled type 2 diabetes mellitus 250.02 ; Right shoulder pain 719.41 and Ulcer of heel and midfoot 707.14 [id number] [place] [address] 04324- 4966 Dec, Diabetes with other specified manifestations, type II or unspecified type, not stated as uncontrolled 250.80 ; Ulcer of heel and midfoot 707.14 ; Hypertension 401.9 ; Hip pain, left 719.45 and Acute anxiety 300.00 [facility] [id number] [place] [address] 00348- 8909 Nov, [facility] [address] 61987- 5595 Nov, [facility] [address] 36179- 6893 September, Anxiety attack 300.01 and Cellulitis 682.9 [facility] [address] 52794- 2546 September, [facility] [place] [facility] [address] [id number] [place] [address]- 0437 September, [facility] [place] [facility] [address] [id number] [place] [address]- 7706 September, [facility] [place] [facility] [address] [id number] [place] [address]- 9620 Aug, [facility] [place] [facility] [address] [id number] [place] [address]- 7445 Aug, [facility] [place] [facility] [address] [id number] [place] [address]- 1487 Jul, [facility] [place] [facility] [address] [id number] [place] [address]- 3709 Jul, [facility] [place] [facility] [address] [id number] [place] [address]- 9194 Jul, [facility] [place] [facility] [address] [id number] [place] [address]- 5773 May, [facility] [place] [facility] [address] [id number] [place] [address]- 1933 May, [facility] [place] [facility] [address] [id number] [place] [address]- 5841 Mar, [facility] [place] [facility] [address] [id number] [place] [address]- 5680 Mar, [facility] [place] [facility] [address] [id number] [place] [address]- 5451 Mar, [facility] [place] [facility] [address] [id number] [place] [address]- 8011 Mar, [facility] [place] [facility] [address] [id number] [place] [address]- 5333 Mar, [facility] [place] [facility] [address] [id number] [place] [address]- 8301 Mar, [facility] [place] [facility] [address] [id number] [place] [address]- 1699 07 Mar, 2014 [facility] [place] [facility] [address] [id number] [place] [address]- 8824 14 Feb, 2014 [facility] [place] [facility] [address] [id number] [place] [address]- 0346 14 Feb, 2014 [facility] [place] [facility] [address] [id number] [place] [address]- 7855 30 Sep, 2013 [facility] [place] [facility] [address] [id number] [place] [address]- 2543 30 Sep, 2013 [facility] [place] [facility] [address] [id number] [place] [address]- 7139 26 Sep, 2013 [facility] [place] [facility] [address] [id number] [place] [address]- 9937 26 Jan, 2013 [facility] [place] [facility] [address] [id number] [place] [address]- 2548 25 Jan, 2013 [facility] [place] [facility] [address] [id number] [place] [address]- 2540 25 Sep, 2013 [facility] [place] [facility] [address] [id number] [place] [address]- 254 25 Sep, 2013 [facility] [place] [facility] [address] [id number] [place] [address]- 2548 25 Sep, 2013 [facility] [place] [facility] [address] [id number] [place] [address] 2544 18 Sep, 2013 [facility] [place] [facility] [address] [id number] [place] [address]- 2541 18 Sep, 2013 [facility] [place] [facility] [address] [id number] [place] [address] 2549 06 Sep, 2013 [facility] [place] [facility] [address] [id number] [place] [address]- 2546 06 Sep, 2013 [facility] [place] [facility] [address] [id number] [place] 3579 05 Sep, 2013 [facility] [place] [facility] [address] [id number] [place] [address]- 0784 Sep, 2013 [facility] [place] [facility] [address] [id number] [place] [address]- 3568 Jan, 2013 [facility] [place] [facility] [address] [id number] [place] [address]- 0994 Jan, 2013 [facility] [place] [facility] [address] [id number] [place] [address]- 4935 Jan, 2013 [facility] [place] [facility] [address] [id number] [place] [address]- 1470 Jan, 2013 [facility] [place] [facility] [address] [id number] [place] [address]- 6060 Dec, 2013 [facility] [place] [facility] [address] [id number] [place] [address]- 5255 Dec, 2013 [facility] [place] [facility] [address] [id number] [place] [address]- 5559 Dec, [facility] [place] [facility] [address] [id number] [place] [address]- 0394 Dec, [facility] [place] [facility] [address] [id number] [place] [address]- 9044 Dec, [facility] [place] [facility] [address] [id number], [place] [address]- 8710 Dec, [facility] [place] [facility] [address] [id number], [place] [address]- 3419 Dec, [facility] [place] [facility] [address] [id number] [place] [address]- 1701 Dec, [facility] [place] [facility] [address] [id number] [place] [address]- 4499 Dec, [facility] [place] [facility] [address] [id number] [place] [address]- 1015 Dec, [facility] [place] [facility] [address] [id number], [place] [address]- 8987 14 Nov, 2013 [facility] [place] [facility] [address] [id number] [place] [address]- 7640 14 Nov, 2013 [facility] [place] [facility] [address] [id number] [place] [address]- 8825 Nov, [facility] [place] [facility] [address] [id number] [place] [address]- 5192 Nov, 2013 [facility] [place] [facility] [address] [id number] [place] [address]- 9648 Nov, [facility] [place] [facility] [address] [id number] [place] [address]- 1054 Nov, [facility] [place] [facility] [address] [id number] [place] [address]- 0172 Oct, [facility] [place] [facility] [address] [id number] [place] [address]- 6364 Oct, [facility] [place] [facility] [address] [id number] [place] [address]- 0126 Oct, [facility] [place] [facility] [address] [id number] [place] [address]- 5794 Oct, [facility] [place] [facility] [address] [id number] [place] [address]- 8462 Oct, [facility] [place] [facility] [address] [id number] [place] [address]- 3030 Oct, [facility] [place] [facility] [address] [id number], [place] [address]- 0354 Oct, [facility] [place] [facility] [address] [id number] [place] [address]- 0854 Oct, [facility] [place] [facility] [address] [id number] [place] [address]- 2375 Oct, [facility] [place] [facility] [address] [id number] [place] [address]- 6731 Oct, [facility] [place] [facility] [address] [id number] [place] [address]- 9146 Oct, [facility] [place] [facility] [address] [id number] [place] [address]- 6911 Oct, [facility] [place] [facility] [address] [id number] [place] [address]- 7616 September, [facility] [place] [facility] [address] [id number] [place] [address]- 1139 September, [facility] [place] [facility] [address] [id number] [place] [address]- 5852 September, [facility] [place] [facility] [address] [id number] [place] [address]- 6902 Aug, [facility] [place] [facility] [address] [id number] [place] [address]- 9804 Aug, [facility] [place] [facility] [address] [id number] [place] [address]- 9013 Jul, [facility] [place] [facility] [address] [id number] [place] [address]- 3087 Jul, [facility] [place] [facility] [address] [id number] [place] [address]- 5493 Jul, [facility] [place] [facility] [address] [id number] [place] [address]- 1323 Jul, [facility] [place] [facility] [address] [id number] [place] [address]- 7622 Jul, [facility] [place] [facility] [address] [id number] [place] [address]- 0637 Jul, [facility] [place] [facility] [address] [id number] [place] [address]- 5899 Jul, [facility] [place] [facility] [address] [id number] [place] [address]- 3496 Jul, [facility] [place] [facility] [address] [id number] [place] [address]- 7279 Jul, [facility] [place] [facility] [address] [id number] [place] 3897 Jul, [facility] [place] [facility] [address] [id number] [place] [address]- 9946 Jun, [facility] [place] [facility] [address] [id number] [place] [address]- 6056 Jun, [facility] [place] [facility] [address] [id number] [place] [address]- 9335 Jun, [facility] [place] [facility] [address] [id number] [place] [address]- 5529 Jun, [facility] [place] [facility] [address] [id number] [place] [address]- 6469 May, [facility] [place] [facility] [address] [id number] [place] [address]- 6291 May, [facility] [place] [facility] [address] [id number] [place] [address]- 1076 Apr, [facility] [place] [facility] [address] [id number] [place] [address]- 9773 Apr, [facility] [place] [facility] [address] [id number] [place] [address]- 8577 Apr, [facility] [place] [facility] [address] [id number] [place] [address]- 3663 Apr, [facility] [place] [facility] [address] [id number] [place] [address]- 3472 Apr, [facility] [place] [facility] [address] [id number] [place] 7382 Apr, [facility] [place] [facility] [address] [id number] [place] 6371 Apr, [facility] [place] [facility] [address] [id number] [place] [address]- 9646 Apr, [facility] [place] [facility] [address] [id number] [place] [address]- 9983 Mar, [facility] [address] [id number] [place] [address]- 3600 Mar, [facility] [place] [facility] [address] [id number] [place] [address]- 1229 Mar, [facility] [address] [id number] [place] [address]- 4032 Mar, [facility] [place] [facility] [address] [id number] [place] [address] Mar, [facility] [place] [facility] [address] [id number] [place] [address] Mar, [facility] [place] [facility] [address] [id number] [place] [address] Feb, [facility] [place] [facility] [address] [id number] [place] [address] 30 Feb, 2013 [facility] [address] [id number] [place] [address] Feb, [facility] [place] [facility] [address] [id number] [place] [address] 18 Feb, 2013 [facility] [address] [id number] [place] [address] Feb, [facility] [place] [facility] [address] [id number] [place] [address] 14 Feb, 2013 [facility] [place] [facility] [address] [id number] [place] [address] 04 Feb, 2013 [facility] [place] [facility] [address] [id number] [place] [address] 27 Jan, 2013 [facility] [place] [facility] [address] [id number] [place] [address] 26 Jan, 2013 [facility] [place] [facility] [address] [id number] [place] [address] Jan, [facility] [place] [facility] [address] [id number] [place] [address] Jan, [facility] [place] [facility] [address] [id number] [place] [address] Dec, [facility] [place] [facility] [address] [id number] [place] [address]- [address] Dec, [facility] [place] [facility] [address] [id number] [place] [address] Dec, [facility] [place] [facility] [address] [id number] [place] [address] Nov, [facility] [place] [facility] [address] [id number] [place] [address]- [address] Nov, [facility] [place] [facility] [address] [id number] [place] [address]- [address] Nov, [facility] [place] [facility] [address] [id number] [place] [address]- [address] Nov, [facility] [place] [facility] [address] [id number] [place] [address]- [address] Nov, [facility] [place] [facility] [address] [id number] [place] [address]- [address] Nov, [facility] [place] [facility] [address] [id number] [place] [address]- [address] Oct, [facility] [place] [facility] [address] [id number], [place] [address] Oct, [facility] [place] [facility] [address] [id number] [place] [address] Oct, [facility] [place] [facility] [address] [id number] [place] [address] Oct, [facility] [place] [facility] [address] [id number], [place] [address] Oct, [facility] [place] [facility] [address] [id number], [place] [address] Oct, [facility] [address] [id number] [place] [address] September, [facility] [address] [id number] [place] [address] September, [facility] [address] [id number] [place] [address] September, [facility] [address] [id number] [place] [address] September, [facility] [address] [id number] [place] [address] Aug, [facility] [address] [id number] [place] [address] Aug, [facility] [address] [id number] [place] [address] Jul, [facility] [address] [id number] [place] [address] Jul, [facility] [address] [id number] [place] [address] 18 Jul, 2012 [facility] [facility] [address] [facility] [id number] [place] [address] 15 Jul, 2012 [facility] [address] [id number] [place] [address] Jul, [facility] [address] [id number], [place] [address] 08 Jul, 2012 [facility] [address] [id number] [place] [address] 20 Jun, 2012 [facility] [address] [id number] [place] [address] Jun, [facility] [address] [facility] [id number], [place] [address] May, [facility] [address] [id number] [place] [address] May, [facility] [address] [id number] [place] [address] Apr, [facility] [place] [facility] [address] [id number] [place] [address] 2097 18 Apr, 2012 [facility] [place] [facility] [address] [id number] [place] [address] 7056 13 Apr, 2012 [facility] [place] [facility] [address] [id number] [place] [address] 8729 13 Apr, 2012 [facility] [place] [facility] [address] [id number] [place] [address] Apr, [facility] [address] [id number] [place] [address] 8947 Apr, [facility] [address] [id number] [place] [address] Apr, [facility] [place] [facility] [address] [id number] [place] [address] 3[address] Apr, [facility] [place] [facility] [address] [id number] [place] [address]- 2841 Apr, [facility] [place] [facility] [address] [id number] [place] [address] 7035 Apr, [facility] [place] [facility] [address] [id number] [place] [address] 4187 Apr, [facility] [place] [facility] [address] [id number] [place] [address] 1263 Apr, [facility] [place] [facility] [address] [id number] [place] [address] 8507 Apr, [facility] [place] [facility] [address] [id number] [place] [address]- 1320 05 Apr, 2012 [facility] [place] [facility] [address] [id number] [place] [address]- [address] Apr, [facility] [place] [facility] [address] [id number] [place] [address]- 3514 Apr, [facility] [place] [facility] [address] [id number] [place] [address] 3020 Mar, [facility] [place] [facility] [address] [facility] [id number] [place] [address]- 5605 Mar, [facility] [place] [facility] [address] [id number] [place] [address]- 0573 Mar, [facility] [place] [facility] [address] [id number] [place] [address]- 0027 Mar, [facility] [place] [facility] [address] [id number], [place] [address] Mar, [facility] [place] [facility] [address] [facility] [id number] [place] [address] 7715 Mar, [facility] [place] [facility] [address] [id number], [place] [address] Mar, [facility] [place] [facility] [address] [id number], [place] [address] 32[address] Mar, [facility] [place] [facility] [address] [facility] [id number], [place] [address] Mar, [facility] [place] [facility] [address] [id number], [place] [address] 26[address] Mar, [facility] [place] [facility] [address] [id number], [place] [address] 17[address] Feb, [facility] [place] [facility] [address] [id number], [place] [address] 2098 Feb, [facility] [place] [facility] [address] [facility] [id number], [place] [address] Feb, [facility] [place] [facility] [address] [facility] [id number], [place] [address] 9993 Feb, [facility] [place] [facility] [address] [id number] [place] [address]- 5855 Feb, [facility] [address] [id number] [place] [address]- 6688 Feb, [facility] [place] [facility] [address] [id number] [place] [address] Jan, [facility] [place] [facility] [address] [id number] [place] [address]- 3473 Dec, [facility] [place] [facility] [address] [id number] [place] [address] 3338 Dec, [facility] [place] [facility] [address] [id number] [place] [address]- 7952 Dec, [facility] [place] [facility] [address] [id number] [place] [address]- 8828 Dec, [facility] [address] [id number] [place] [address]- 3401 Nov, [facility] [address] [id number] [place] [address]- 1158 Nov, [facility] [place] [facility] [address] [id number] [place] [address]- 4153 Nov, [facility] [address] [id number] [place] [address]- 6976 Nov, [facility] [place] [facility] [address] [id number] [place] [address]- 2929 Oct, [facility] [place] [facility] [address] [id number] [place] [address]- 1131 Oct, [facility] [place] [facility] [address] [id number] [place] [address]- 3664 Oct, [facility] [place] [facility] [address] [id number] [place] [address]- 5700 Oct, [facility] [place] [facility] [address] [id number] [place] [address]- 3114 Oct, [facility] [place] [facility] [address] [id number] [place] [address]- 4724 September, [facility] [address] [id number] [place] [address]- 9140 September, [facility] [address] [id number] [place] [address]- 1391 September, [facility] [address] [id number] [place] [address] 8489 September, [facility] [address] [id number] [place] [address]- 3497 September, [facility] [address] [id number] [place] [address]- 6970 September, [facility] [address] [id number] [place] [address]- 2155 September, [facility] [address] [id number] [place] [address]- 4115 September, [facility] [address] [id number] [place] [address]- 7154 Aug, [facility] [address] [id number] [place] [address]- 9599 Aug, [facility] [place] [facility] [address] [id number] [place] [address]- 4232 Aug, [facility] [place] [facility] [address] [id number], [place] [address]- 2085 Aug, [facility] [place] [facility] [address] [id number] [place] [address]- 8829 18 Aug, 2011 [facility] [place] [facility] [address] [id number] [place] [address]- 7474 17 Aug, 2011 [facility] [place] [facility] [address] [id number] [place] [address]- 0629 13 Aug, 2011 [facility] [place] [facility] [address] [id number] [place] [address]- 3208 12 Aug, 2011 [facility] [address] [id number] [place] [address]- 7610 10 Aug, 2011 [facility] [place] [facility] [address] [id number] [place] [address]85 09 Aug, 2011 [facility] [place] [facility] [address] [id number] [place] [address]- 8855 Aug, [facility] [place] [facility] [address] [id number] [place] [address]- 9229 Aug, [facility] [place] [facility] [address] [id number] [place] [address]- 4885 29 Jul, 2011 [facility] [place] [facility] [address] [id number] [place] [address]- 2528 28 Jul, 2011 [facility] [place] [facility] [address] [facility] [id number] [place] [address]- 2624 27 Jul, 2011 [facility] [place] [facility] [address] [id number] [place] [address]- 1301 23 Jul, 2011 [facility] [place] [facility] [address] [id number] [place] [address]- 0968 21 Jul, 2011 [facility] [place] [facility] [address] [facility] [id number] [place] [address]- 0953 21 Jul, 2011 [facility] [place] [facility] [address] [id number] [place] [address]- 4487 14 Jul, 2011 [facility] [place] [facility] [address] [id number] [place] [address]- 5134 13 Jul, 2011 [facility] [place] [facility] [address] [id number] [place] [address]- 6972 07 Jul, 2011 [facility] [place] [facility] [address] [facility] [id number] [place] [address]- 3202 24 Jun, 2011 [facility] [place] [facility] [address] [facility] [id number] [place] [address]- 9550 23 Jun, 2011 [facility] [place] [facility] [address] [id number] [place] [address]- 6874 Jun, [facility] [place] [facility] [address] [id number] [place] [address]- 3046 Jun, [facility] [place] [facility] [address] [id number] [place] [address]- 2056 Jun, [facility] [place] [facility] [address] [id number] [place] [address]- 8026 Jun, [facility] [place] [facility] [address] [id number] [place] [address]- 5173 Jun, [facility] [place] [facility] [address] [id number] [place] [address]- 6354 May, [facility] [address] [id number] [place] [address]- 9165 May, [facility] [address] [id number] [place] [address]- 8716 May, [facility] [place] [facility] [address] [id number] [place] [address]- 5721 May, [facility] [place] [facility] [address] [id number] [place] [address]- 9881 May, [facility] [place] [facility] [address] [id number] [place] [address]- 8580 May, [facility] [place] [facility] [address] [id number] [place] [address]- 4689 May, [facility] [place] [facility] [address] [id number] [place] [address]- 3347 Apr, [facility] [place] [facility] [address] [id number] [place] [address]- 7106 Apr, [facility] [place] [facility] [address] [id number] [place] [address]- 5229 Apr, [facility] [place] [facility] [address] [id number], [place] [address]- 8095 Apr, [facility] [place] [facility] [address] [id number] [place] 4435 Apr, [facility] [place] [facility] [address] [id number] [place] [address]- 2419 Apr, [facility] [place] [facility] [address] [id number] [place] [address]- 4056 Apr, [facility] [place] [facility] [address] [id number] [place] [address]- 1294 Apr, [facility] [place] [facility] [address] [id number] [place] [address]295 Apr, [facility] [place] [facility] [address] [id number] [place] [address]- 8459 Mar, [facility] [place] [facility] [address] [id number] [place] [address]- 7321 Mar, [facility] [place] [facility] [address] [id number] [place] [address]- 4537 Mar, [facility] [place] [facility] [address] [id number] [place] [address]- 0977 Mar, [facility] [place] [facility] [address] [id number] [place] [address]- 0208 Mar, [facility] [place] [facility] [address] [id number], [place] [address]- 9276 Feb, [facility] [place] [facility] [address] [id number] [place] [address]- 9295 Feb, [facility] [place] [facility] [address] [id number] [place] [address]10 Feb, [facility] [place] [facility] [address] [id number] [place] [address]- 9831 Dec, [facility] [place] [facility] [address] [id number] [place] [address]- 9057 Nov, [facility] [place] [facility] [address] [id number] [place] [address]- 8334 22 Apr, 2010 [facility] [address] [id number] [place] [address]- 0516 20 Apr, 2010 [facility] [address] [id number] [place] [address] 2546 16 Apr, 2010 [facility] [address] [id number] [place] [address] 2546 13 Apr, 2010 [facility] [address] [id number] [place] [address] 2546 09 Apr, 2010 [facility] [address] [id number] [place] [address] 2546 06 Apr, 2010 [facility] [address] [id number] [place] [address] 2546 06 Apr, 2010 [facility] [address] [id number] [place] [address] 2549 Apr, [facility] [address] [id number] [place] [address] 2543 29 Mar, 2010 [facility] [address] [id number] [place] [address] 2549 24 Mar, 2010 [facility] [address] [id number] [place] [address] 2540 Mar, [facility] [address] [id number] [place] [address] 2546 Mar, [facility] [address] [id number] [place] [address] 2546 Mar, [facility] [place] [facility] [address] [id number] [place] [address] 2546 Mar, [facility] [address] [id number] [place] [address] 2546 15 Mar, 2010 [facility] [address] [id number] [place] [address] 2546 Mar, [facility] [address] [facility] [id number] [place] [address]- 9264 Mar, [facility] [address] [facility] [id number] [place] [address]- 9206 Mar, IMMUNIZATIONS No Known Immunizations SOCIAL HISTORY [...]
--- OUTSIDE RECORDS SUMMARY | 2018-04-22 23:31 | XMS REPORT ---
Author Author MARY FRAGOSO [facility] Address [address] [place] [address] Care Team Providers Care Seedling Sorter Name Role Phone MARY FRAGOSO Unavailable PROBLEMS Type Condition ICD9-CM Code TWS12-SK Code Onset Dates Condition Status SNOMED Code Problem Severe sleep apnea G47.30 Active 46470691 Problem Chronic kidney disease, stage 3 (moderate) N18.3 Active 318537532 Problem Decreased diffusion capacity R94.2 Active 60590719 Problem Anemia in other chronic diseases classified elsewhere D63.8 Active 469026109 Problem Stenosis of carotid artery, unspecified laterality I65.29 Active 52582996 Problem Type 2 diabetes mellitus with diabetic polyneuropathy E11.42 Active 797624004 Problem Trochanteric bursitis of left hip M70.62 Active [id number] Problem Diarrhea, unspecified type R19.7 Active 63884513 Problem Anxiety about health F41.8 Active 677668461 Problem Transient cerebral ischemia, unspecified type G45.9 Active 338580043 Problem Aortic valve sclerosis I35.8 Active 10010673 Problem Generalized osteoarthritis M15.9 Active 396365980 Problem Coronary artery disease involving [place] coronary artery of [place] heart, angina presence unspecified I25.10 Active 3834671456438 Problem Hypoxemia R09.02 Active 782442756 Problem Presence of IVC filter Z95.828 Active 056121820 Problem Port catheter in place Z95.828 Active 086457202 Problem BMI 50.0-59.9, adult Z68.43 Active 175443871 Problem Mixed hyperlipidemia E78.2 Active 325227578 Problem Type 2 diabetes mellitus with hyperglycemia E11.65 Active 70760570 Problem Essential hypertension I10 Active 17807148 Problem Iron deficiency anemia, unspecified iron deficiency anemia type D50.9 Active 42050799 Problem Type 2 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 Active 71376347 Problem Renal osteodystrophy N25.0 Active 59764449 Problem Type 2 diabetes mellitus with foot ulcer E11.621 Active 617363385 Problem 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 Active 7816705 ALLERGIES No Information ENCOUNTERS Encounter Location Date Diagnosis [facility] [id number] Oct, [facility] [address], [place] [address] Oct, [facility] [id number] [place] [address] 96285- 5045 Oct, [facility] [id number] [place] [address] 37456- 5037 Oct, [facility] [id number] [place] [address] 95699- 6066 Oct, [facility] [id number] [place] [address] 97536 -5765 September, BMI 50.0-59.9, adult Z68.43 [facility] [id number] [place] [address] 20223- 9376 September, [facility] [id number] [place] [address] 32158- 3094 September, [facility] [id number] [place] [address] 84747- 9895 Aug, Type 2 diabetes mellitus with foot ulcer E11.621 ; Transient cerebral ischemia, unspecified type G45.9 ; Essential hypertension I10 ; Mixed hyperlipidemia E78.2 and BMI 50.0-59.9, adult Z68.43 [facility] [address], [place] [address] 6247 17 Aug, 2017 [facility] [id number] [place] [address] 80149- 3002 14 Jul, 2017 Anxiety about health F41.8 and Mixed hyperlipidemia E78.2 [facility] [id number] [place] [address] 17365- 6859 Jul, [place] [address], [place] [address] 6[address] Jun, [facility] [id number] [place] [address] 60058- 5753 12 Jun, 2017 Type 2 diabetes mellitus with hyperglycemia E11.65 ; Type 2 diabetes mellitus with foot ulcer E11.621 ; Port catheter in place Z95.828 ; 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 ; Contact with and (suspected) exposure to potentially hazardous body fluids Z77.21 and BMI 50.0-59.9, adult Z68.43 [facility] [facility] [id number] [address] 9149 May, [facility] [facility] [id number] [place] [address] 07643- 0153 May, Open wound of right great toe, subsequent encounter S91.101D [facility] [id number] [place] [address] 16782- 9520 May, [facility] [address], [place] [address] 0506 Apr, [place] [id number] [place] [address] 12321- 8232 Apr, [facility] [address], [place] [address] 4008 14 Apr, 2017 [place] [id number] [address]- 3017 14 Apr, 2017 Type 2 diabetes mellitus with diabetic polyneuropathy E11.42 [facility] [address], [place] [address]- 9181 13 Apr, 2017 Open wound of right great toe, subsequent encounter S91.101D [place] [address], [place] [address]- 5103 08 Apr, 2017 Open wound of right great toe, subsequent encounter S91.101D ; Breast pain, left N64.4 ; Breast cancer screening Z12.31 ; Type 2 diabetes mellitus with foot ulcer E11.621 ; Essential hypertension I10 and BMI 50.0-59.9, adult Z68.43 [facility] [address] 19266- 4226 Mar, Encounter for immunization Z23 [facility] [address] 46864- 9185 Mar, [place] [address] 63350- 5556 Mar, [place] [address] 92282- 7739 Mar, Type 2 diabetes mellitus with diabetic polyneuropathy E11.42 ; Type 2 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 ; Type 2 diabetes mellitus with foot ulcer E11.621 ; Essential hypertension I10 ; Hypoxemia R09.02 and Generalized osteoarthritis M15.9 [place] [address] 32650- 8089 Mar, Chronic kidney disease, stage 3 (moderate) N18.3 ; Acute cystitis without hematuria N30.00 ; Essential hypertension I10 ; Muscle spasms of neck M62.838 ; Type 2 diabetes mellitus with diabetic polyneuropathy E11.42 and BMI 50.0-59.9, adult Z68.43 [place] [id number] [place] [address] 29399- 3406 Feb, [facility] [id number] [place] [address] 72286 -2463 Feb, [facility] [id number] [place] [address] 70265- 8798 Feb, [facility] [address] 74500- 5057 Feb, [facility] [id number] [place] [address] 77016- 5844 Feb, [facility] [address] 67602- 3520 Feb, [facility] [address], [place] [address]- 4859 Feb, Mixed hyperlipidemia E78.2 [facility] [address], [place] [address]- 3784 Feb, [facility] [address], [place] [address] Jan, [facility] [id number] [place] [address] 54571- 8135 14 Jan, 2017 Generalized osteoarthritis M15.9 [facility] [id number] [place] [address] 14249- 9776 Oct, [facility] [address], [place] [address]- 0484 Jul, [facility] [id number] [place] [address] 68668- 2488 Jul, [facility] [address], [place] [address]- 2457 Jul, Type 2 diabetes mellitus with hyperglycemia E11.65 ; Chronic kidney disease, stage 3 (moderate) N18.3 ; Type 2 diabetes mellitus with foot ulcer E11.621 ; Type 2 diabetes mellitus with diabetic polyneuropathy E11.42 ; Generalized osteoarthritis M15.9 ; Trochanteric bursitis of left hip M70.62 and Tinea pedis of both feet B35.3 [facility] [address], [place] [address]- 2935 Jun, [facility] [address] 6937 Apr, [facility] [address] [address] 1654 Apr, [facility] [address], [place] [address]- 8135 Mar, [facility] [id number] [place] [address] 91349- 8990 20 Feb, 2016 Encounter for immunization Z23 [facility] [address] 69322- 8090 18 Feb, 2016 [facility] [id number] [place] [address] 44423- 8697 14 Feb, 2016 Type 2 diabetes mellitus with hyperglycemia E11.65 ; Encounter for immunization Z23 ; Diarrhea, unspecified type R19.7 ; Essential hypertension I10 ; Mixed hyperlipidemia E78.2 ; Hypoxia R09.02 ; 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 and Type 2 diabetes mellitus with foot ulcer E11.621 [place] [id number] [place] [address] 44272- 7368 Jan, [place] [address] 82284- 2844 Jan, Type 2 diabetes mellitus with hyperglycemia E11.65 and Pneumonia due to infectious organism, unspecified laterality, unspecified part of lung J18.9 [facility] [id number] [place] [address] 23659- 2533 Jan, [place] [place] [id number] [place] [address] 13038- 8057 Jan, [place] [id number] [place] [address] 47411- 9346 Oct, Type 2 diabetes mellitus with hyperglycemia E11.65 ; Generalized osteoarthritis M15.9 and Chronic prescription opiate use Z79.891 [facility] [id number] [place] [address] 41297- 7012 September, [place] [address] 15226- 5768 Aug, [facility] [id number] [place] [address] 83085- 3418 Aug, [facility] [address] 04749- 5202 Aug, [place] [id number] [place] [address] 16569- 4206 Aug, [facility] [id number] [place] [address] 55367- 0560 Jun, [facility] [id number] [place] [address] 95562- 5497 Jun, Type 2 diabetes mellitus with hyperglycemia E11.65 ; Mixed hyperlipidemia E78.2 ; Vaginal itching L29.8 ; Neck muscle spasm M62.838 and Skin abrasion T14.8 [place] [address] 71377- 4034 Apr, [place] [id number] [place] [address] 93558- 8615 Apr, [place] [address] 40839- 2570 Mar, [place] [id number] [place] [address] 62327- 7533 Feb, [place] [id number] [place] [address] 47228- 9541 Feb, Type 2 diabetes mellitus with hyperglycemia E11.65 ; Type 2 diabetes mellitus with foot ulcer E11.621 ; Type 2 diabetes mellitus with diabetic polyneuropathy E11.42 and Encounter for immunization Z23 [place] [id number] [place] [address] 82574- 4947 Jan, Hypertension 401.9 ; Uncontrolled type 2 diabetes mellitus 250.02 ; Right shoulder pain 719.41 and Ulcer of heel and midfoot 707.14 [place] [id number] [place] [address] 17815- 2463 Dec, Diabetes with other specified manifestations, type II or unspecified type, not stated as uncontrolled 250.80 ; Ulcer of heel and midfoot 707.14 ; Hypertension 401.9 ; Hip pain, left 719.45 and Acute anxiety 300.00 [place] [address] [address]- 2791 14 Nov, 2014 [facility] [address] [id number], [place] [address]- 9883 10 Nov, 2014 [facility] [address] [id number] [place] [address]- 0243 September, Anxiety attack 300.01 and Cellulitis 682.9 [facility] [address] [id number] [place] [address]- 0226 September, [facility] [address] [id number] [place] [address]- 2722 September, [facility] [address] [id number] [place] [address]- 9866 September, [facility] [address] [id number] [place] [address]- 7472 Aug, [facility] [address] [id number], [place] [address]- 4399 Aug, [facility] [address] [id number] [place] [address]- 6328 Jul, [facility] [address] [facility] [id number] [place] [address]- 1419 Jul, [facility] [address] [facility] [id number] [place] [address]- 6325 05 Jul, 2014 [facility] [address] [id number], [place] [address]- 5310 May, [facility] [address] [id number] [place] [address]- 1464 May, [facility] [address] [id number], [place] [address]- 8479 Mar, [facility] [address] [id number], [place] [address]- 2102 Mar, [facility] [address] [id number], [place] [address]- 2697 Mar, [facility] [place] [facility] [address] [id number] [place] [address]- 5360 Mar, [facility] [place] [facility] [address] [id number] [place] [address]- 3020 Mar, [facility] [place] [facility] [address] [id number] [place] [address]- 3823 Mar, [facility] [place] [facility] [address] [id number] [place] [address]- 1653 Mar, [facility] [place] [facility] [address] [id number] [place] [address]- 7241 Feb, [facility] [place] [facility] [address] [id number] [place] [address]- 9469 14 Feb, 2014 [facility] [place] [facility] [address] [id number] [place] [address]- 1031 30 Jan, 2014 [facility] [place] [facility] [address] [id number] [place] [address]- 9505 30 Jan, 2014 [facility] [place] [facility] [address] [id number] [place] [address]- 2429 26 Jan, 2014 [facility] [place] [facility] [address] [id number] [place] [address]- 7993 26 Jan, 2013 [facility] [place] [facility] [address] [id number], [place] [address]- 3087 25 Jan, 2013 [facility] [place] [facility] [address] [id number], [place] [address]- 2541 25 Jan, 2013 [facility] [place] [facility] [address] [id number] [place] [address] 2547 25 Jan, 2013 [facility] [place] [facility] [address] [id number] [place] [address]- 2545 25 Jan, 2013 [facility] [place] [facility] [address] [id number] [place] [address]- 5463 18 Sep, 2013 [facility] [place] [facility] [address] [id number] [place] [address]- 6029 18 Sep, 2013 [facility] [place] [facility] [address] [id number] [place] [address]- 4047 06 Sep, 2013 [facility] [place] [facility] [address] [id number] [place] [address]- 6353 06 Sep, 2013 [facility] [place] [facility] [address] [id number] [place] [address]- 9956 05 Sep, 2013 [facility] [place] [facility] [address] [id number] [place] [address]- 5683 05 Sep, 2013 [facility] [place] [facility] [address] [id number] [place] [address]- 0239 05 Sep, 2013 [facility] [place] [facility] [address] [id number] [place] [address]- 5484 05 Sep, 2013 [facility] [place] [facility] [address] [id number] [place] [address]- 8085 05 Sep, 2013 [facility] [place] [facility] [address] [id number] [place] [address]- 1816 Jan, 2013 [facility] [place] [facility] [address] [id number] [place] [address]- 8659 Dec, 2013 [facility] [place] [facility] [address] [id number] [place] [address]- 8075 Dec, 2013 [facility] [place] [facility] [address] [id number] [place] [address]- 8315 Dec, 2013 [facility] [place] [facility] [address] [id number] [place] [address]- 4870 Dec, 2013 [facility] [place] [facility] [address] [id number] [place] [address]- 9764 Dec, [facility] [place] [facility] [address] [id number] [place] [address]- 8515 Dec, [facility] [place] [facility] [address] [id number] [place] [address]- 9700 Dec, [facility] [place] [facility] [address] [id number] [place] [address]- 0185 Dec, [facility] [place] [facility] [address] [id number] [place] [address]- 8629 Dec, [facility] [place] [facility] [address] [id number] [place] [address]- 9256 Dec, [facility] [place] [facility] [address] [id number] [place] [address]- 2008 Nov, [facility] [place] [facility] [address] [id number] [place] [address]- 0950 Nov, [facility] [place] [facility] [address] [id number] [place] [address]- 2715 Nov, [facility] [place] [facility] [address] [id number] [place] [address]- 6507 Nov, [facility] [place] [facility] [address] [id number] [place] [address]- 4075 Nov, [facility] [place] [facility] [address] [id number] [place] [address]- 7628 Nov, [facility] [place] [facility] [address] [id number] [place] [address]- 0268 Oct, [facility] [place] [facility] [address] [id number] [place] [address]- 6226 Oct, [facility] [place] [facility] [address] [id number] [place] [address]- 2387 Oct, [facility] [place] [facility] [address] [id number] [place] [address]- 9416 Oct, [facility] [place] [facility] [address] [id number] [place] [address]- 4265 Oct, [facility] [place] [facility] [address] [id number] [place] [address]- 6569 Oct, [facility] [place] [facility] [address] [id number] [place] [address]- 0437 Oct, [facility] [place] [facility] [address] [id number] [place] [address]- 8226 Oct, [facility] [place] [facility] [address] [id number] [place] [address]- 2843 Oct, [facility] [place] [facility] [address] [id number] [place] [address]- 1437 Oct, [facility] [place] [facility] [address] [id number] [place] [address]- 2617 Oct, [facility] [place] [facility] [address] [id number] [place] [address]- 0776 Oct, [facility] [place] [facility] [address] [id number] [place] [address]- 1579 September, [facility] [place] [facility] [address] [id number] [place] [address]- 8134 September, [facility] [place] [facility] [address] [id number] [place] [address]- 4926 September, [facility] [place] [facility] [address] [id number] [place] [address]- 1563 Aug, [facility] [place] [facility] [address] [id number] [place] [address]- 7018 Aug, [facility] [place] [facility] [address] [id number] [place] [address]- 3106 13 Jul, 2013 [facility] [place] [facility] [address] [id number] [place] [address]- 4856 13 Jul, 2013 [facility] [place] [facility] [address] [id number] [place] [address]- 6441 10 Jul, 2013 [facility] [place] [facility] [address] [id number] [place] [address]- 2128 10 Jul, 2013 [facility] [place] [facility] [address] [id number] [place] [address]- 1236 08 Jul, 2013 [facility] [place] [facility] [address] [id number] [place] [address]- 0194 Jul, [facility] [place] [facility] [address] [id number] [place] [address]- 5794 Jul, [facility] [place] [facility] [address] [id number] [place] [address]- 9346 Jul, [facility] [place] [facility] [address] [id number] [place] [address]- 1852 Jul, [facility] [place] [facility] [address] [id number] [place] [address]- 9026 Jul, [facility] [place] [facility] [address] [id number] [place] [address]- 8345 Jun, [facility] [place] [facility] [address] [id number] [place] [address]- 9173 Jun, [facility] [place] [facility] [address] [id number] [place] [address]- 4645 Jun, [facility] [place] [facility] [address] [id number] [place] [address]- 6749 Jun, [facility] [place] [facility] [address] [id number] [place] [address]- 3357 May, [facility] [place] [facility] [address] [id number] [place] [address]- 3342 May, [facility] [place] [facility] [address] [id number] [place] [address]- 5543 Apr, [facility] [place] [facility] [address] [id number] [place] [address]- 0768 Apr, [facility] [place] [facility] [address] [id number] [place] [address]- 9292 Apr, [facility] [place] [facility] [address] [id number] [place] [address]- 5206 Apr, [facility] [place] [facility] [address] [id number], [place] [address]- 1343 Apr, [facility] [place] [facility] [address] [id number] [place] [address]- 6232 Apr, [facility] [place] [facility] [address] [id number], [place] [address]- 9025 Apr, [facility] [place] [facility] [address] [id number] [place] 2799 Apr, [facility] [place] [facility] [address] [id number], [place] [address]- 5754 Mar, [facility] [place] [facility] [address] [id number] [place] [address]- 6859 Mar, [facility] [place] [facility] [address] [id number] [place] [address]- 1847 Mar, [facility] [place] [facility] [address] [id number], [place] [address]- 0732 Mar, [facility] [place] [facility] [address] [id number] [place] [address]- 2182 Mar, [facility] [place] [facility] [address] [id number], [place] [address]- 7679 Mar, [facility] [place] [facility] [address] [id number], [place] [address]- 7791 Feb, [facility] [place] [facility] [address] [id number], [place] [address] 30 Feb, 2013 [facility] [place] [facility] [address] [id number], [place] [address] 18 Feb, 2013 [facility] [place] [facility] [address] [id number], [place] [address] 18 Feb, 2013 [facility] [place] [facility] [address] [id number], [place] [address] 14 Feb, 2013 [facility] [place] [facility] [address] [id number], [place] [address] 14 Feb, 2013 [facility] [place] [facility] [address] [id number] [place] [address] 04 Feb, 2013 [facility] [address] [id number] [place] [address] 27 Jan, 2013 [facility] [place] [facility] [address] [id number] [place] [address] Jan, [facility] [place] [facility] [address] [id number] [place] [address] Jan, [facility] [place] [facility] [address] [id number] [place] [address] 05 Jan, 2013 [facility] [place] [facility] [address] [id number] [place] [address] Dec, [facility] [place] [facility] [address] [id number] [place] [address] Dec, [facility] [place] [facility] [address] [id number] [place] [address] Dec, [facility] [place] [facility] [address] [id number] [place] [address] Nov, [facility] [place] [facility] [address] [id number] [place] [address] Nov, [facility] [place] [facility] [address] [id number] [place] [address] Nov, [facility] [place] [facility] [address] [id number] [place] [address] Nov, [facility] [place] [facility] [address] [id number] [place] [address] Nov, [facility] [place] [facility] [address] [id number] [place] [address] Nov, [facility] [place] [facility] [address] [id number] [place] [address] Oct, [facility] [place] [facility] [address] [id number] [place] [address] Oct, [facility] [address] [id number] [place] [address] Oct, [facility] [place] [facility] [address] [id number] [place] [address] Oct, [facility] [place] [facility] [address] [id number] [place] [address] Oct, [facility] [place] [facility] [address] [id number] [place] [address] Oct, [facility] [address] [id number] [place] [address] September, [facility] [place] [facility] [address] [id number] [place] [address] September, [facility] [place] [facility] [address] [id number] [place] [address] September, [facility] [place] [facility] [address] [id number] [place] [address] September, [facility] [place] [facility] [address] [id number] [place] [address] Aug, [facility] [place] [facility] [address] [id number] [place] [address] Aug, [facility] [place] [facility] [address] [id number] [place] [address] Jul, [facility] [place] [facility] [address] [id number], [place] [address] Jul, [facility] [place] [facility] [address] [id number] [place] [address] 18 Jul, 2012 [facility] [place] [facility] [address] [id number] [place] [address] 15 Jul, 2012 [facility] [place] [facility] [address] [id number] [place] [address] Jul, [facility] [place] [facility] [address] [id number] [place] [address]- 2278 08 Jul, 2012 [facility] [address] [id number] [place] [address] 20 Jun, 2012 [facility] [place] [facility] [address] [id number] [place] [address]16 13 Jun, 2012 [facility] [address] [id number] [place] [address] 6546 17 May, 2012 [facility] [place] [facility] [address] [id number] [place] [address]796 May, [facility] [address] [id number] [place] [address] 9684 18 Apr, 2012 [facility] [place] [facility] [address] [id number] [place] [address] 14[address] 18 Apr, 2012 [facility] [address] [id number] [place] [address] 1117 Apr, [facility] [place] [facility] [address] [id number] [place] [address] 1087 13 Apr, 2012 [facility] [place] [facility] [address] [id number] [place] [address] 5166 Apr, [facility] [address] [facility] [id number] [place] [address] 6637 10 Apr, 2012 [facility] [place] [facility] [address] [id number] [place] [address]- 0636 07 Apr, 2012 [facility] [place] [facility] [address] [id number] [place] [address]- 2546 Apr, [facility] [place] [facility] [address] [id number] [place] [address]- 0436 Apr, [facility] [place] [facility] [address] [id number] [place] [address] Apr, [facility] [place] [facility] [address] [id number] [place] [address]- 6057 Apr, [facility] [place] [facility] [address] [id number] [place] [address]- 9188 Apr, [facility] [place] [facility] [address] [id number] [place] [address]- 0152 Apr, [facility] [place] [facility] [address] [id number] [place] [address]- 2565 Apr, [facility] [place] [facility] [address] [id number] [place] [address]- 4529 Apr, [facility] [place] [facility] [address] [id number] [place] [address]- 0368 Apr, [facility] [place] [facility] [address] [id number] [place] [address]- 6389 Mar, [facility] [place] [facility] [address] [id number] [place] [address]- 1099 Mar, [facility] [place] [facility] [address] [id number] [place] [address]- 8880 Mar, [facility] [place] [facility] [address] [id number] [place] [address]- 3833 Mar, [facility] [place] [facility] [address] [id number] [place] [address]- 3519 Mar, [facility] [place] [facility] [address] [id number] [place] [address]- 9657 Mar, [facility] [place] [facility] [address] [id number] [place] [address]- 8901 Mar, [facility] [place] [facility] [address] [id number] [place] [address]- 7496 Mar, [facility] [place] [facility] [address] [id number] [place] [address]- 0478 Mar, [facility] [place] [facility] [address] [id number] [place] [address]- 0587 Mar, [facility] [place] [facility] [address] [id number] [place] [address]- 2546 Feb, [facility] [place] [facility] [address] [id number] [place] [address] Feb, [facility] [place] [facility] [address] [id number] [place] [address]- 3621 Feb, [facility] [place] [facility] [address] [id number] [place] [address]- 0982 Feb, [facility] [place] [facility] [address] [id number] [place] [address]- 6332 Feb, [facility] [place] [facility] [address] [id number] [place] [address]- 3452 Feb, [facility] [place] [facility] [address] [id number] [place] [address]- 9385 Jan, [facility] [place] [facility] [address] [id number] [place] [address]- 6119 Dec, [facility] [place] [facility] [address] [id number] [place] [address]- 5706 Dec, [facility] [place] [facility] [address] [id number] [place] [address] Dec, [facility] [place] [facility] [address] [id number] [place] [address]- 9158 Dec, [facility] [place] [facility] [address] [id number] [place] [address]- 1716 Nov, [facility] [place] [facility] [address] [id number] [place] [address]- 4341 Nov, [facility] [place] [facility] [address] [id number] [place] [address]- 3196 Nov, [facility] [place] [facility] [address] [id number] [place] [address]- 7415 Nov, [facility] [place] [facility] [address] [id number] [place] [address]- 0836 Oct, [facility] [place] [facility] [address] [id number] [place] [address] 1899 Oct, [facility] [address] [id number] [place] [address]- 6743 Oct, [facility] [address] [id number] [place] [address]- 6758 Oct, [facility] [address] [id number] [place] [address]- 7212 Oct, [facility] [address] [id number] [place] [address]- 9936 September, [facility] [address] [id number] [place] [address]- 8608 September, [facility] [address] [id number] [place] [address]- 2487 September, [facility] [address] [id number] [place] [address]- 8970 September, [facility] [address] [id number] [place] [address]- 8657 September, [facility] [address] [id number] [place] [address]- 5836 September, [facility] [address] [id number] [place] [address]- 8438 September, [facility] [address] [id number] [place] [address]- 4436 September, [facility] [address] [id number] [place] [address]- 3976 Aug, [facility] [place] [facility] [address] [id number] [place] [address] 7333 Aug, [facility] [address] [id number] [place] [address]- 8884 Aug, [facility] [address] [id number] [place] [address]- 0569 Aug, [facility] [place] [facility] [address] [id number] [place] [address]- 8422 18 Aug, 2011 [facility] [place] [facility] [address] [id number] [place] [address]- 0392 17 Aug, 2011 [facility] [place] [facility] [address] [id number] [place] [address]- 9510 13 Aug, 2011 [facility] [place] [facility] [address] [id number] [place] [address]- 5042 12 Aug, 2011 [facility] [place] [facility] [address] [id number] [place] [address]- 7656 10 Aug, 2011 [facility] [place] [facility] [address] [id number] [place] [address]- 3245 09 Aug, 2011 [facility] [place] [facility] [address] [id number] [place] [address]- 9945 Aug, [facility] [place] [facility] [address] [id number] [place] [address]- 2295 Aug, [facility] [place] [facility] [address] [id number] [place] [address]- 5607 29 Jul, 2011 [facility] [place] [facility] [address] [id number] [place] [address]- 9323 28 Jul, 2011 [facility] [place] [facility] [address] [id number] [place] [address]- 2465 27 Jul, 2011 [facility] [place] [facility] [address] [id number] [place] [address]- 6190 23 Jul, 2011 [facility] [place] [facility] [address] [id number] [place] [address]- 8442 21 Jul, 2011 [facility] [place] [facility] [address] [id number] [place] [address]- 4076 21 Jul, 2011 [facility] [place] [facility] [address] [id number] [place] [address]- 3360 14 Jul, 2011 [facility] [place] [facility] [address] [id number] [place] [address]- 2781 Jul, [facility] [address] [id number] [place] [address]- 8562 Jul, [facility] [place] [facility] [address] [id number] [place] [address]- 7316 24 Jun, 2011 [facility] [place] [facility] [address] [id number] [place] [address]- 8836 Jun, [facility] [place] [facility] [address] [id number] [place] [address]- 0073 Jun, [facility] [address] [id number] [place] [address]- 7756 14 Jun, 2011 [facility] [place] [facility] [address] [id number] [place] [address]- 1116 Jun, [facility] [address] [id number] [address]- 8752 Jun, [facility] [address] [id number] [place] [address]- 5583 Jun, [facility] [place] [facility] [address] [id number] [address]- 8126 May, [facility] [address] [facility] [id number] [place] [address]- 5708 May, [facility] [place] [facility] [address] [id number] [place] [address]- 3190 May, [facility] [place] [facility] [address] [id number] [place] [address]- 1664 May, [facility] [place] [facility] [address] [id number] [place] [address]- 9344 May, [facility] [place] [facility] [address] [facility] [id number] [place] [address]- 4126 May, [facility] [place] [facility] [address] [facility] [id number] [place] [address]- 3061 May, [facility] [address] [id number] [place] [address]- 4232 Apr, [facility] [place] [facility] [address] [id number] [place] [address]- 7936 Apr, [facility] [place] [facility] [address] [id number] [place] [address]- 7786 Apr, [facility] [place] [facility] [address] [id number] [place] [address]- 2816 Apr, [facility] [place] [facility] [address] [id number] [place] [address]- 7377 Apr, [facility] [place] [facility] [address] [id number] [place] [address]- 8936 Apr, [facility] [place] [facility] [address] [id number] [place] [address]- 8026 Apr, [facility] [place] [facility] [address] [id number] [place] [address]- 0296 Apr, [facility] [place] [facility] [address] [id number] [place] [address]- 4040 Apr, [facility] [place] [facility] [address] [id number], [place] [address]- 6847 Mar, [facility] [place] [facility] [address] [id number], [place] [address]- 4126 Mar, [facility] [place] [facility] [address] [id number], [place] [address]- 2723 Mar, [facility] [place] [facility] [address] [id number] [place] [address]- 6866 Mar, [facility] [place] [facility] [address] [id number], [place] [address]- 5746 Mar, [facility] [place] [facility] [address] [id number], [place] [address]- 2536 Feb, [facility] [place] [facility] [address] [id number], [place] [address]- 0347 Feb, [facility] [address] [id number] [place] [address]- 6116 Feb, [facility] [place] [facility] [address] [id number] [place] [address] 2546 Dec, [facility] [address] [id number] [place] [address]- 6076 Nov, [facility] [place] [facility] [address] [id number] [place] [address]- 6659 Apr, [facility] [address] [id number] [place] [address]- 4099 Apr, [facility] [place] [facility] [address] [id number] [place] [address]- 6126 16 Apr, 2010 [facility] [address] [facility] [id number] [place] [address]- 2084 Apr, [facility] [place] [facility] [address] [id number] [place] [address]- 6198 Apr, [facility] [address] [facility] [id number] [place] [address]- 4102 Apr, [facility] [place] [facility] [address] [facility] [id number] [place] [address]- 4166 Apr, [facility] [place] [facility] [address] [facility] [id number] [place] [address]- 7679 Apr, [facility] [place] [facility] [address] [id number] [place] [address]- 2544 Mar, [facility] [place] [facility] [address] [id number] [place] [address]- 9299 Mar, [facility] [place] [facility] [address] [id number] [place] [address]- 1613 Mar, [facility] [place] [facility] [address] [facility] [id number] [place] [address]- 3338 Mar, [facility] [place] [facility] [address] [facility] [id number] [place] [address]- 8478 Mar, [facility] [address] [id number], [place] [address]- 9191 Mar, [facility] [address] [id number], [place] [address]- 0661 Mar, [facility] [address] [id number], [place] [address]- 6753 Mar, [facility] [address] [id number], [place] [address]- 6517 Mar, [facility] [address] [id number], [place] [address]- 9345 Mar, IMMUNIZATIONS No Known Immunizations SOCIAL HISTORY Never Assessed REASON FOR VISIT Lab (walk-in)--[place] PLAN OF CARE VITAL SIGNS MEDICATIONS Unknown Medications RESULTS No Results PROCEDURES Procedure Date Ordered Result Body Site LAB NOT BILLED BY [facility] Jun 01, 2017 INSTRUCTIONS MEDICATIONS ADMINISTERED No Known Medications [...]
--- OUTSIDE RECORDS SUMMARY | 2018-04-22 23:33 | XMS REPORT ---
Author Author FABRICE DHALIWAL [facility] Address [address] [place] [address] Care Team Providers Care Clinical Operations Specialist Name Role Phone FABRICE DHALIWAL Unavailable PROBLEMS Type Condition ICD9-CM Code WRR24-AR Code Onset Dates Condition Status SNOMED Code Problem Mixed hyperlipidemia E78.2 Active 324214335 Problem Severe sleep apnea G47.30 Active 89398204 Problem Iron deficiency anemia, unspecified iron deficiency anemia type D50.9 Active 01700020 Problem Decreased diffusion capacity R94.2 Active 88667565 Problem Stenosis of carotid artery, unspecified laterality I65.29 Active 94101369 Problem Coronary artery disease involving [place] coronary artery of [place] heart, angina presence unspecified I25.10 Active 2545604976035 Problem Generalized osteoarthritis M15.9 Active 205843585 Problem Aortic valve sclerosis I35.8 Active 06429345 Problem Port catheter in place Z95.828 Active 729681631 Problem Essential hypertension I10 Active 76161539 Problem Transient cerebral ischemia, unspecified type G45.9 Active 111688301 Problem Renal osteodystrophy N25.0 Active 30229581 Problem Anxiety about health F41.8 Active 473708432 Problem Chronic kidney disease, unspecified CKD stage N18.9 Active 063319104 Problem Type 2 diabetes mellitus with unspecified complications E11.8 Active 64956653 Problem Other chronic pain G89.29 Active 18703538 Problem Chronic kidney disease (CKD), stage 4 (severe) N18.4 Active 024397210 Problem Type 2 diabetes mellitus with hyperglycemia E11.65 Active 66391004 Problem Type 2 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 Active 15362108 Problem 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9, adult Z68.43 Active 002476066 Problem Diarrhea, unspecified type R19.7 Active 45906849 Problem Trochanteric bursitis of left hip M70.62 Active [id number] ALLERGIES No Information ENCOUNTERS Encounter Location Date Diagnosis [facility] [address] [place] [id number] Dec, Low back pain M54.5 ; Other chronic pain G89.29 and Chronic kidney disease (CKD), stage 4 (severe) N18.4 [facility] [id number] [place] [address] 03619- 0927 Dec, Type 2 diabetes mellitus with hyperglycemia E11.65 [facility] [id number] [place] [address] 82592- 5242 Dec, [facility] [address] [place] [id number] Dec, Type 2 diabetes mellitus with hyperglycemia E11.65 ; Essential hypertension I10 ; Generalized osteoarthritis M15.9 ; Mixed hyperlipidemia E78.2 ; Hypoxia R09.02 ; Port catheter in place Z95.828 ; Anemia due to acute blood loss D62 ; Chronic kidney disease, unspecified CKD stage N18.9 and Severe sleep apnea G47.30 [facility] [address] [place] [address] 11176- 1931 Dec, Type 2 diabetes mellitus with hyperglycemia E11.65 [facility] [id number] [place] [address] 86394- 6661 Dec, [facility] [id number] [place] [address] 16487- 4807 Dec, Type 2 diabetes mellitus with hyperglycemia E11.65 [facility] [id number] [place] [address] 48254- 5578 Dec, Left leg pain M79.605 [facility] [id number] [place] [address] 92669- 3308 Nov, Slow transit constipation K59.01 [facility] [address] [address] 2546 Nov, [facility] [address] [place] [id number] Nov, Anemia due to acute blood loss D62 [facility] [id number] [place] [address] 71348 2546 Nov, [facility] [id number] [place] [address] 42611- 1156 Nov, Bladder spasms N32.89 [facility] [id number] [place] [address] 15425- 2366 Nov, Pain R52 [facility] [address] [place] [id number] Nov, Anemia due to acute blood loss D62 [facility] [address] [place] [address] 25013- 7876 Nov, Pain in right hip M25.551 and Pain in left hip M25.552 [facility] [address] [place] [address] 60710- 5466 Nov, [facility] [id number] [place] [address] 52768 2546 Nov, [facility] [address] [place] [address] 78019 2546 Nov, [facility] [id number] [place] [address] 945897- 1686 Nov, [facility] [address], [place] [address] 7046 Oct, [facility] [id number] [place] [address] 49557- 5440 Oct, [facility] [address] [place] [id number] Oct, 2017 Encounter for examination for admission to fdc Z02.2 ; Chronic kidney disease, unspecified CKD stage N18.9 ; Type 2 diabetes mellitus with unspecified complications E11.8 ; senior care 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.4 ; Essential hypertension I10 ; Hypoxia R09.02 ; Severe sleep apnea G47.30 ; Stenosis of carotid artery, unspecified laterality I65.29 ; Generalized osteoarthritis M15.9 ; Coronary artery disease involving [place] coronary artery of [place] heart, angina presence unspecified I25.10 ; Port catheter in place Z95.828 and Hemorrhoids, unspecified hemorrhoid type K64.9 [facility] [address] 17427- 7897 Oct, [facility] [address] 82066- 9676 Oct, [facility] [address] 74786- 8890 Oct, [facility] [address] 93088- 7386 Oct, [facility] [id number] [place] [address] 33351 -4920 September, BMI 50.0-59.9, adult Z68.43 [facility] [address] 58841- 1103 September, [facility] [address] 57262- 8086 September, [facility] [id number] [place] [address] 42954- 1430 Aug, Type 2 diabetes mellitus with foot ulcer E11.621 ; Transient cerebral ischemia, unspecified type G45.9 ; Essential hypertension I10 ; Mixed hyperlipidemia E78.2 and BMI 50.0-59.9, adult Z68.43 [facility] [address] 13600- 8267 Aug, [facility] [id number] [place] [address] 87943- 8421 14 Jul, 2017 Anxiety about health F41.8 and Mixed hyperlipidemia E78.2 [facility] [id number] [place] [address] 77978- 1857 13 Jul, 2017 [facility] [address] 12633- 7287 Jun, [facility] [id number] [place] [address] 74039- 6433 Jun, Type 2 diabetes mellitus with hyperglycemia E11.65 ; Type 2 diabetes mellitus with foot ulcer E11.621 ; Port catheter in place Z95.828 ; 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 ; Contact with and (suspected) exposure to potentially hazardous body fluids Z77.21 and BMI 50.0-59.9, adult Z68.43 [facility] [id number] [place] [address] 74771- 1280 May, [facility] [address] 54791- 9092 May, Open wound of right great toe, subsequent encounter S91.101D [facility] [id number] [place] [address] 38274- 5855 May, [facility] [id number] [place] [address] 80010- 9518 Apr, [facility] [id number] [place] [address] 76255- 5589 Apr, [facility] [id number] [place] [address] 72642- 6505 Apr, [facility] [id number] [place] [address] 37929- 2892 Apr, Type 2 diabetes mellitus with diabetic polyneuropathy E11.42 [facility] [id number] [place] [address] 54668- 6428 Apr, Open wound of right great toe, subsequent encounter S91.101D [facility] [address] [place] [address] 27828- 3154 Apr, Open wound of right great toe, subsequent encounter S91.101D ; Breast pain, left N64.4 ; Breast cancer screening Z12.31 ; Type 2 diabetes mellitus with foot ulcer E11.621 ; Essential hypertension I10 and BMI 50.0-59.9, adult Z68.43 [facility] [id number] [place] [address] 66408- 5377 Mar, Encounter for immunization Z23 [address] 36598- 4359 Mar, [facility] [id number] [place] [address] 29113- 6821 Mar, [place] [id number] [place] [address] 50711- 6902 Mar, Type 2 diabetes mellitus with diabetic polyneuropathy E11.42 ; Type 2 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 ; Type 2 diabetes mellitus with foot ulcer E11.621 ; Essential hypertension I10 ; Hypoxemia R09.02 and Generalized osteoarthritis M15.9 [facility] [id number] [place] [address] 17190- 0292 02 Mar, 2017 Chronic kidney disease, stage 3 (moderate) N18.3 ; Acute cystitis without hematuria N30.00 ; Essential hypertension I10 ; Muscle spasms of neck M62.838 ; Type 2 diabetes mellitus with diabetic polyneuropathy E11.42 and BMI 50.0-59.9, adult Z68.43 [facility] [id number] [place] [address] 72269- 2817 Feb, [facility] [id number] [place] [address] 64175 -7254 Feb, [place] [id number] [place] [address] 64414- 8889 Feb, [facility] [address], [place] [address]- 1643 Feb, [facility] [id number] [place] [address] 81092- 0385 Feb, [facility] [address] [place] [address] 60218- 8909 Feb, [facility] [id number] [place] [address] 05280- 0852 Feb, Mixed hyperlipidemia E78.2 [facility] [id number] [place] [address] 28618- 8470 Feb, [facility] [id number] [place] [address] 68725- 5781 Jan, [facility] [id number] [place] [address] 92098- 9612 Jan, Generalized osteoarthritis M15.9 [facility] [address] [place] [address] 98296- 9836 Oct, [facility] [id number] [place] [address] 26945- 4337 Jul, [facility] [address], [place] [address]- 1030 Jul, [facility] [address] [place] [address] 39498- 3883 Jul, Type 2 diabetes mellitus with hyperglycemia E11.65 ; Chronic kidney disease, stage 3 (moderate) N18.3 ; Type 2 diabetes mellitus with foot ulcer E11.621 ; Type 2 diabetes mellitus with diabetic polyneuropathy E11.42 ; Generalized osteoarthritis M15.9 ; Trochanteric bursitis of left hip M70.62 and Tinea pedis of both feet B35.3 [facility] [address], [place] [address]- 4574 Jun, [facility] [id number] [place] [address] 18114- 2773 Apr, [facility] [id number] [place] [address] 46202- 7286 Apr, [facility] [id number] [place] [address] 56396- 6383 Mar, [facility] [id number] [place] [address] 03197- 2111 Feb, Encounter for immunization Z23 [facility] [address] 40116- 3299 Feb, [facility] [address] 12056- 2000 Feb, Type 2 diabetes mellitus with hyperglycemia E11.65 ; Encounter for immunization Z23 ; Diarrhea, unspecified type R19.7 ; Essential hypertension I10 ; Mixed hyperlipidemia E78.2 ; Hypoxia R09.02 ; 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 and Type 2 diabetes mellitus with foot ulcer E11.621 [facility] [id number] [place] [address] 29587- 2559 Jan, [facility] [id number] [place] [address] 72953- 2920 Jan, Type 2 diabetes mellitus with hyperglycemia E11.65 and Pneumonia due to infectious organism, unspecified laterality, unspecified part of lung J18.9 [facility] [address] [place] [address] 48891- 5669 Jan, [facility] [address] [place] [address] 57895- 5967 Jan, [facility] [id number] [place] [address] 78155- 6567 Oct, Type 2 diabetes mellitus with hyperglycemia E11.65 ; Generalized osteoarthritis M15.9 and Chronic prescription opiate use Z79.891 [facility] [id number] [place] [address] 91745- 7850 September, [facility] [address], [place] [address]- 4784 Aug, [facility] [id number] [place] [address] 66052- 5642 Aug, [facility] [id number] [place] [address] 86937- 0923 Aug, [facility] [id number] [place] [address] 44680- 0337 Aug, [facility] [id number] [place] [address] 62577- 8246 Jun, [facility] [id number] [place] [address] 72475- 5306 Jun, Type 2 diabetes mellitus with hyperglycemia E11.65 ; Mixed hyperlipidemia E78.2 ; Vaginal itching L29.8 ; Neck muscle spasm M62.838 and Skin abrasion T14.8 [facility] [id number] [place] [address] 14161- 3567 Apr, [facility] [id number] [place] [address] 33225- 3299 Apr, [facility] [id number] [place] [address] 91299- 7305 Mar, [facility] [id number] [place] [address] 84320- 2004 Feb, [facility] [address] [place] [address] 65296- 4692 Feb, Type 2 diabetes mellitus with hyperglycemia E11.65 ; Type 2 diabetes mellitus with foot ulcer E11.621 ; Type 2 diabetes mellitus with diabetic polyneuropathy E11.42 and Encounter for immunization Z23 [facility] [address] [place] [address] 45594- 0151 Jan, Hypertension 401.9 ; Uncontrolled type 2 diabetes mellitus 250.02 ; Right shoulder pain 719.41 and Ulcer of heel and midfoot 707.14 [facility] [address], [place] [address]- 9693 Dec, Diabetes with other specified manifestations, type II or unspecified type, not stated as uncontrolled 250.80 ; Ulcer of heel and midfoot 707.14 ; Hypertension 401.9 ; Hip pain, left 719.45 and Acute anxiety 300.00 [facility] [address] [address]- 5007 Nov, [facility] [id number] [place] [address] 85478- 4182 Nov, [facility] [id number] [place] [address] 50996- 0106 September, Anxiety attack 300.01 and Cellulitis 682.9 [facility] [address] [address]- 4756 September, [facility] [id number] [place] [address] 62466- 4186 September, [facility] [address], [place] [address]- 4466 September, [facility] [address] [address]- 8307 Aug, [facility] [address] [address]- 2714 Aug, [facility] [address] [address] 5934 Jul, [facility] [address], [place] [address]- 4261 Jul, [facility] [address] [place] [address]- 7296 Jul, [facility] [address], [place] [address]- 2596 May, [facility] [address] [place] [address] 14708- 6629 May, [facility] [place] [facility] [address] [id number] [place] [address]- 3294 Mar, [facility] [place] [facility] [address] [id number] [place] [address]- 1560 Mar, [facility] [place] [facility] [address] [id number] [place] [address]- 5816 Mar, [facility] [place] [facility] [address] [id number] [place] [address]- 9767 Mar, [facility] [place] [facility] [address] [id number] [place] [address]- 3656 Mar, [facility] [place] [facility] [address] [id number] [place] [address]- 4045 Mar, [facility] [place] [facility] [address] [id number] [place] [address]- 5596 Mar, [facility] [place] [facility] [address] [id number] [place] [address]- 7600 14 Feb, 2014 [facility] [place] [facility] [address] [id number] [place] [address]- 1065 14 Feb, 2014 [facility] [place] [facility] [address] [id number] [place] [address]- 5503 30 Jan, 2014 [facility] [place] [facility] [address] [id number] [address]- 4580 30 Jan, 2014 [facility] [place] [facility] [address] [id number] [address]- 9170 26 Jan, 2013 [facility] [place] [facility] [address] [id number] [place] [address]- 6511 26 Jan, 2014 [facility] [place] [facility] [address] [id number] [place] [address]- 1433 25 Jan, 2014 [facility] [place] [facility] [address] [id number] [place] [address]- 2648 25 Jan, 2014 [facility] [place] [facility] [address] [id number] [place] [address]- 5461 25 Sep, 2013 [facility] [place] [facility] [address] [id number] [place] [address] 2546 25 Sep, 2013 [facility] [place] [facility] [address] [id number] [place] [address] 2546 18 Sep, 2013 [facility] [place] [facility] [address] [id number] [place] [address] 2542 18 Sep, 2013 [facility] [place] [facility] [address] [id number] [place] [address] 2546 06 Sep, 2013 [facility] [place] [facility] [address] [id number] [place] [address]- 0052 06 Sep, 2013 [facility] [place] [facility] [address] [id number] [place] [address] 2544 05 Sep, 2013 [facility] [place] [facility] [address] [id number] [place] [address]- 1912 05 Sep, 2013 [facility] [place] [facility] [address] [id number] [place] [address] 2540 05 Sep, 2013 [facility] [place] [facility] [address] [id number] [place] [address] 2541 05 Sep, 2013 [facility] [place] [facility] [address] [id number] [place] [address]- 2549 05 Sep, 2013 [facility] [place] [facility] [address] [id number] [place] [address] 2549 05 Sep, 2013 [facility] [place] [facility] [address] [id number] [place] [address]- 2545 Dec, 2013 [facility] [place] [facility] [address] [id number] [place] [address]- 1538 Dec, 2013 [facility] [place] [facility] [address] [id number] [place] [address]- 4854 Dec, 2013 [facility] [place] [facility] [address] [id number] [place] [address]- 2395 08 Dec, 2013 [facility] [place] [facility] [address] [id number] [place] [address]- 5730 Dec, [facility] [place] [facility] [address] [id number] [place] [address]- 7872 Dec, [facility] [place] [facility] [address] [id number] [place] [address]- 3489 Dec, [facility] [place] [facility] [address] [id number] [place] [address]- 4000 Dec, [facility] [place] [facility] [address] [id number] [place] [address]- 5290 Dec, [facility] [place] [facility] [address] [id number] [place] [address]- 5355 Dec, [facility] [place] [facility] [address] [id number] [place] [address]- 9526 Nov, [facility] [place] [facility] [address] [id number] [place] [address]- 0539 Nov, [facility] [place] [facility] [address] [id number] [place] [address]- 0183 Nov, [facility] [place] [facility] [address] [id number] [place] [address]- 8708 Nov, [facility] [place] [facility] [address] [id number] [place] [address]- 9643 Nov, [facility] [place] [facility] [address] [id number] [place] [address]- 4891 Nov, [facility] [place] [facility] [address] [id number] [place] [address]- 2737 Oct, [facility] [place] [facility] [address] [id number] [place] [address]- 1348 Oct, [facility] [place] [facility] [address] [id number] [place] [address]- 8404 Oct, [facility] [place] [facility] [address] [id number] [place] [address]- 6122 Oct, [facility] [place] [facility] [address] [id number] [place] [address]- 7786 Oct, [facility] [place] [facility] [address] [id number] [place] [address]- 7774 Oct, [facility] [place] [facility] [address] [id number] [place] [address]- 4969 Oct, [facility] [place] [facility] [address] [id number] [place] [address]- 7031 Oct, [facility] [place] [facility] [address] [id number] [place] [address]- 1669 Oct, [facility] [place] [facility] [address] [id number] [place] [address]- 2561 Oct, [facility] [place] [facility] [address] [id number] [place] [address]- 0974 Oct, [facility] [place] [facility] [address] [id number] [place] [address]- 4595 Oct, [facility] [place] [facility] [address] [id number] [place] [address] September, [facility] [place] [facility] [address] [id number] [place] [address] September, [facility] [place] [facility] [address] [id number] [place] [address] September, [facility] [place] [facility] [address] [id number] [place] [address] Aug, [facility] [place] [facility] [address] [id number] [place] [address] Aug, [facility] [place] [facility] [address] [id number] [place] [address] Jul, [facility] [place] [facility] [address] [id number] [place] [address] Jul, [facility] [place] [facility] [address] [id number] [place] [address] 10 Jul, 2013 [facility] [address] [id number] [place] [address] Jul, [facility] [place] [facility] [address] [id number] [place] [address] Jul, [facility] [place] [facility] [address] [id number] [place] [address] Jul, [facility] [place] [facility] [address] [id number] [place] [address] Jul, [facility] [place] [facility] [address] [id number] [place] [address] Jul, [facility] [place] [facility] [address] [id number] [place] [address] Jul, [facility] [place] [facility] [address] [id number] [place] [address] Jul, [facility] [place] [facility] [address] [id number] [place] [address] Jun, [facility] [place] [facility] [address] [id number] [place] [address] Jun, [facility] [place] [facility] [address] [id number] [place] [address] Jun, [facility] [place] [facility] [address] [id number] [place] [address] Jun, [facility] [place] [facility] [address] [id number] [place] [address]- [address] May, [facility] [place] [facility] [address] [id number] [place] [address] May, [facility] [place] [facility] [address] [id number] [place] [address] Apr, [facility] [place] [facility] [address] [id number] [place] [address] Apr, [facility] [place] [facility] [address] [id number] [place] [address] Apr, [facility] [place] [facility] [address] [id number] [place] [address] Apr, [facility] [place] [facility] [address] [id number] [place] [address] Apr, [facility] [place] [facility] [address] [id number] [place] [address] 9[address] Apr, [facility] [place] [facility] [address] [id number] [place] [address] Apr, [facility] [place] [facility] [address] [id number] [place] [address]- 0238 Apr, [facility] [place] [facility] [address] [id number] [place] [address] 7296 Mar, [facility] [place] [facility] [address] [id number], [place] [address] Mar, [facility] [place] [facility] [address] [id number] [place] [address] 4544 Mar, [facility] [place] [facility] [address] [id number], [place] [address] Mar, [facility] [place] [facility] [address] [id number], [place] [address] Mar, [facility] [place] [facility] [address] [id number], [place] [address] Mar, [facility] [place] [facility] [address] [id number] [place] [address] 2213 Feb, [facility] [place] [facility] [address] [id number], [place] [address] Feb, [facility] [place] [facility] [address] [id number], [place] [address] 59[address] Feb, [facility] [place] [facility] [address] [id number] [place] [address]- 7547 18 Feb, 2013 [facility] [address] [id number] [place] [address]- 0819 14 Feb, 2013 [facility] [place] [facility] [address] [id number] [place] [address]- 5087 14 Feb, 2013 [facility] [place] [facility] [address] [id number] [place] [address]- 3789 04 Feb, 2013 [facility] [place] [facility] [address] [id number] [place] [address]- 8096 27 Jan, 2013 [facility] [place] [facility] [address] [id number] [place] [address]- 0528 26 Jan, 2013 [facility] [place] [facility] [address] [id number] [place] [address]- 2667 19 Jan, 2013 [facility] [place] [facility] [address] [id number] [place] [address]- 8747 05 Jan, 2013 [facility] [place] [facility] [address] [id number] [place] [address]- 1649 Dec, [facility] [place] [facility] [address] [id number] [place] [address]- 6652 Dec, [facility] [place] [facility] [address] [id number] [place] [address]- 8070 Dec, [facility] [place] [facility] [address] [id number] [place] [address]- 5569 Nov, [facility] [place] [facility] [address] [id number] [place] [address]- 1382 Nov, [facility] [place] [facility] [address] [id number] [place] [address]- 5518 16 Nov, 2012 [facility] [place] [facility] [address] [id number] [place] [address]- 5896 Nov, [facility] [place] [facility] [address] [id number] [place] [address]- 1534 Nov, [facility] [place] [facility] [address] [id number] [place] [address]- 7177 Nov, [facility] [address] [id number] [place] [address]- 0724 Oct, [facility] [place] [facility] [address] [id number] [place] [address]- 9074 Oct, [facility] [place] [facility] [address] [id number] [place] [address]- 3403 Oct, [facility] [address] [id number] [place] [address]- 3284 Oct, [facility] [place] [facility] [address] [id number] [place] [address]- 3950 Oct, [facility] [address] [id number] [place] [address]- 8520 Oct, [facility] [address] [id number] [place] [address]- 8036 September, [facility] [place] [facility] [address] [id number] [place] [address]- 3278 September, [facility] [place] [facility] [address] [id number] [place] [address]- 4524 September, [facility] [place] [facility] [address] [id number] [place] [address]- 2520 September, [facility] [place] [facility] [address] [id number] [place] [address]- 2196 Aug, [facility] [place] [facility] [address] [id number] [place] [address]- 4880 Aug, [facility] [place] [facility] [address] [id number] [place] [address]- 5603 Jul, [facility] [place] [facility] [address] [id number] [place] [address]- 6919 Jul, [facility] [place] [facility] [address] [id number] [place] [address]- 8506 18 Jul, 2012 [facility] [address] [id number] [place] [address]- 8129 15 Jul, 2012 [facility] [place] [facility] [address] [id number] [place] [address]- 1026 13 Jul, 2012 [facility] [address] [id number] [place] [address]- 2180 08 Jul, 2012 [facility] [place] [facility] [address] [id number] [place] [address]- 9964 20 Jun, 2012 [facility] [address] [id number] [place] [address]- 5639 Jun, [facility] [address] [id number] [place] [address]- 9341 17 May, 2012 [facility] [address] [id number] [place] [address] 1954 May, [facility] [address] [id number] [place] [address]- 3465 18 Apr, 2012 [facility] [address] [id number] [place] [address]- 2970 18 Apr, 2012 [facility] [place] [facility] [address] [id number] [place] [address]- 7065 Apr, [facility] [address] [id number] [place] [address]- 3260 13 Apr, 2012 [facility] [place] [facility] [address] [id number] [place] [address]- 6908 10 Apr, 2012 [facility] [place] [facility] [address] [id number] [place] [address]- 6978 10 Apr, 2012 [facility] [place] [facility] [address] [id number] [place] [address] 07 Apr, 2012 [facility] [place] [facility] [address] [id number] [place] [address] 07 Apr, 2012 [facility] [place] [facility] [address] [id number] [place] [address]- 7941 07 Apr, 2012 [facility] [place] [facility] [address] [id number] [place] [address]- 5100 Apr, [facility] [place] [facility] [address] [id number] [place] [address]- 5696 Apr, [facility] [place] [facility] [address] [id number] [place] [address]- 3997 Apr, [facility] [place] [facility] [address] [id number] [place] [address]- 7025 Apr, [facility] [place] [facility] [address] [id number] [place] [address]- 2534 Apr, [facility] [place] [facility] [address] [id number] [place] [address]- 5321 Apr, [facility] [place] [facility] [address] [id number] [place] [address]- 7143 Apr, [facility] [address] [id number] [place] [address]- 2273 Mar, [facility] [place] [facility] [address] [id number] [place] [address]- 5294 Mar, [facility] [place] [facility] [address] [id number] [place] [address]- 4860 Mar, [facility] [place] [facility] [address] [id number] [place] [address]- 5263 Mar, [facility] [place] [facility] [address] [id number] [place] [address]- 5949 Mar, [facility] [place] [facility] [address] [id number] [place] [address]- 2571 Mar, [facility] [place] [facility] [address] [id number] [place] [address]- 3582 Mar, [facility] [place] [facility] [address] [id number] [place] [address]- 6187 Mar, [facility] [place] [facility] [address] [id number] [place] [address]- 9154 Mar, [facility] [place] [facility] [address] [id number] [place] [address]- 2186 Mar, [facility] [place] [facility] [address] [id number] [place] [address]- 2362 Feb, [facility] [place] [facility] [address] [id number] [place] [address]- 1756 Feb, [facility] [place] [facility] [address] [id number] [place] [address]- 7171 Feb, [facility] [place] [facility] [address] [id number] [place] [address]- 4786 Feb, [facility] [place] [facility] [address] [id number] [place] [address]- 0358 Feb, [facility] [place] [facility] [address] [id number] [place] [address]- 6915 Feb, [facility] [place] [facility] [address] [id number] [place] [address]- 9742 Jan, [facility] [place] [facility] [address] [id number] [place] [address]- 3523 Dec, [facility] [place] [facility] [address] [id number] [place] [address]- 3589 Dec, [facility] [place] [facility] [address] [id number] [place] [address]- 3579 Dec, [facility] [place] [facility] [address] [id number] [place] [address]- 7697 Dec, [facility] [place] [facility] [address] [id number] [place] [address]- 1956 Nov, [facility] [place] [facility] [address] [id number] [place] [address]- 4259 Nov, [facility] [place] [facility] [address] [id number] [place] [address]- 6830 Nov, [facility] [address] [id number] [place] [address]- 7673 Nov, [facility] [place] [facility] [address] [id number] [place] [address]- 0438 Oct, [facility] [address] [id number] [place] [address]- 2845 Oct, [facility] [place] [facility] [address] [id number] [place] [address]- 7191 Oct, [facility] [address] [id number] [place] [address]- 3125 Oct, [facility] [address] [id number] [place] [address]- 4371 Oct, [facility] [address] [id number] [place] [address]- 6243 September, [facility] [address] [id number] [place] [address]- 6984 September, [facility] [address] [id number] [place] [address]- 0332 September, [facility] [address] [id number] [place] [address]- 5293 September, [facility] [address] [id number] [place] [address]- 2825 September, [facility] [place] [facility] [address] [id number] [place] [address]- 5522 September, [facility] [place] [facility] [address] [id number] [place] [address]- 2230 September, [facility] [place] [facility] [address] [id number] [place] [address]- 2526 September, [facility] [address] [id number] [place] [address]- 6688 Aug, [facility] [address] [id number] [place] [address]- 4659 25 Aug, 2011 [facility] [place] [facility] [address] [id number] [place] [address]- 1506 19 Aug, 2011 [facility] [place] [facility] [address] [id number] [place] [address]- 0976 19 Aug, 2011 [facility] [place] [facility] [address] [id number] [place] [address]- 8646 18 Aug, 2011 [facility] [place] [facility] [address] [id number] [place] [address]- 6438 17 Aug, 2011 [facility] [place] [facility] [address] [id number] [place] [address]- 0451 13 Aug, 2011 [facility] [place] [facility] [address] [id number] [place] [address]- 9133 12 Aug, 2011 [facility] [place] [facility] [address] [id number] [place] [address]- 1209 10 Aug, 2011 [facility] [place] [facility] [address] [id number] [place] [address]- 4216 09 Aug, 2011 [facility] [place] [facility] [address] [id number] [place] [address]- 2508 02 Aug, 2011 [facility] [place] [facility] [address] [id number] [place] [address]- 5414 02 Aug, 2011 [facility] [place] [facility] [address] [id number] [place] [address]- 4485 29 Jul, 2011 [facility] [place] [facility] [address] [id number] [place] [address]- 8395 28 Jul, 2011 [facility] [place] [facility] [address] [id number] [place] [address]- 1298 27 Jul, 2011 [facility] [place] [facility] [address] [id number] [place] [address]- 4496 23 Jul, 2011 [facility] [place] [facility] [address] [id number] [place] [address]- 0915 Jul, [facility] [address] [id number] [place] [address]- 8067 Jul, [facility] [place] [facility] [address] [id number] [place] [address]- 8436 14 Jul, 2011 [facility] [place] [facility] [address] [facility] [id number] [place] [address]- 5926 Jul, [facility] [place] [facility] [address] [id number] [place] [address]- 2671 Jul, [facility] [place] [facility] [address] [id number] [place] [address]- 4121 24 Jun, 2011 [facility] [place] [facility] [address] [id number] [place] [address]- 6840 Jun, [facility] [place] [facility] [address] [id number] [place] [address]- 8530 Jun, [facility] [place] [facility] [address] [id number] [place] [address]- 7211 14 Jun, 2011 [facility] [place] [facility] [address] [id number] [place] [address]- 3093 Jun, [facility] [place] [facility] [address] [facility] [id number] [place] [address]- 7270 Jun, [facility] [place] [facility] [address] [facility] [id number] [place] [address]- 4140 Jun, [facility] [place] [facility] [address] [id number] [place] [address]- 2592 May, [facility] [place] [facility] [address] [id number] [place] [address]- 8782 May, [facility] [place] [facility] [address] [facility] [id number] [place] [address]- 8373 May, [facility] [place] [facility] [address] [facility] [id number] [place] [address]- 8189 May, [facility] [place] [facility] [address] [id number] [place] [address]- 2546 May, [facility] [place] [facility] [address] [id number] [place] [address]- 1746 May, [facility] [place] [facility] [address] [id number] [place] [address]- 2546 May, [facility] [place] [facility] [address] [id number] [place] [address]- 8016 Apr, [facility] [place] [facility] [address] [id number] [place] [address]- 7540 Apr, [facility] [place] [facility] [address] [id number] [place] [address]- 5296 Apr, [facility] [place] [facility] [address] [id number] [place] [address]- 1548 Apr, [facility] [place] [facility] [address] [id number] [place] [address]- 5369 Apr, [facility] [place] [facility] [address] [id number] [place] [address]- 5332 Apr, [facility] [place] [facility] [address] [id number] [place] [address]- 4484 Apr, [facility] [place] [facility] [address] [id number] [place] [address]- 4303 Apr, [facility] [place] [facility] [address] [id number] [place] [address]- 2206 Apr, [facility] [place] [facility] [address] [id number] [place] [address]- 1189 Mar, [facility] [place] [facility] [address] [id number] [place] [address]- 6976 Mar, [facility] [place] [facility] [address] [id number] [place] [address]- 2546 Mar, [facility] [place] [facility] [address] [id number] [place] [address]- 8020 Mar, [facility] [place] [facility] [address] [id number] [place] [address]- 5342 Mar, [facility] [place] [facility] [address] [id number] [place] [address]- 4196 Feb, [facility] [place] [facility] [address] [id number] [place] [address]- 5016 Feb, [facility] [place] [facility] [address] [id number] [place] [address]- 5816 Feb, [facility] [place] [facility] [address] [id number] [place] [address]- 2982 Dec, [facility] [place] [facility] [address] [id number] [place] [address]- 7507 Nov, [facility] [place] [facility] [address] [id number] [place] [address]- 7929 Apr, [facility] [place] [facility] [address] [id number] [place] [address]- 9434 Apr, [facility] [place] [facility] [address] [id number] [place] [address]- 8819 16 Apr, 2010 [facility] [place] [facility] [address] [id number] [place] [address]- 3951 Apr, [facility] [place] [facility] [address] [id number], [place] [address]- 0681 Apr, [facility] [place] [facility] [address] [id number], [place] [address]- 2234 Apr, [facility] [place] [facility] [address] [id number] [place] [address]- 6557 Apr, [facility] [place] [facility] [address] [id number] [place] [address]- 9349 Apr, [facility] [place] [facility] [address] [id number] [place] [address]- 2215 Mar, [facility] [place] [facility] [address] [id number] [address]- 9331 Mar, [facility] [id number], [place] [address]- 7037 Mar, [facility] [id number], [place] [address]- 7336 Mar, [facility] [id number], [place] [address]- 8937 Mar, [facility] [id number], [place] [address]- 6485 Mar, [facility] [id number] [place] [address]- 1253 Mar, [facility] [id number], [place] [address]- 0242 Mar, [facility] [id number], [place] [address]- 6932 Mar, [facility] [id number], [place] [address]- 2123 Mar, IMMUNIZATIONS No Known Immunizations SOCIAL HISTORY Never Assessed REASON FOR VISIT Elevated Blood sugar PLAN OF CARE VITAL SIGNS MEDICATIONS Unknown [...]
[2018-04-22] MEDS ORDERED: NITROGLYCERIN 2% OINT 1 GM UNIT DOSE PACKET TOP ONE (23:45)
[2018-04-22] MEDS ORDERED: CEFEPIME INJECTION 2,000 MG in NS (IVPB) 50 ML IV ONE (23:45)
[2018-04-22] MEDS ORDERED: NS (IVPB) 50 ML ONE (23:48)
[2018-04-22] MEDS ORDERED: CEFEPIME HCL 2 GM (MAXIPIME) VIAL ONE (23:48)
[2018-04-22 23:51] LABS: BILIRUBIN,URINE NEGATIVE (NEGATIVE); CLARITY,URINE CLEAR; COLOR,URINE YELLOW; GLUCOSE, URINE (UA) 2+ (NEGATIVE); KETONES,URINE NEGATIVE (NEGATIVE); LEUKOCYTE ESTERASE ,URINE NEGATIVE (NEGATIVE); NITRITE,URINE NEGATIVE (NEGATIVE); PH,URINE 5 (5-9); PROTEIN,URINE 3+ (NEGATIVE); UROBILINOGEN,URINE NORMAL (NORMAL)
[2018-04-23] VITALS (8 sets, daily range): BP systolic 133–164; BP diastolic 65–89
[2018-04-23] MEDS ORDERED: inSUlin (REGULAR) HUMAN 1 UNIT/0.01 ML (CHARGE PER UNIT) IV ONE
[2018-04-23] MEDS ORDERED: ACETAMINOPHEN 500 MG TAB (TYLENOL) PO ONE
[2018-04-23 00:03] LABS: AMORPHOUS SEDIMENT,UR FEW AMOR URATES /LPF; BACTERIA,URINE FEW /HPF; RBC,URINE 0-2 /HPF; SQUAMOUS EPITHELIAL CELL,UR 0-2 /HPF
--- OUTSIDE RECORDS SUMMARY | 2018-04-23 00:38 | XMS REPORT | Clinical Summary ---
Author Author [facility] Organization [facility] Address Unknown Phone Unavailable Care Team Providers Care Rim Turning Finisher Name Role Phone Tobi Benson MD PCP Source Comments Some departments are not documenting in the electronic medical record. If you do not see the information that you expected, contact Release of Information in the Health Information Management department at [phone] for further assistance in locating additional records.[facility] Allergies Not on File Medications Not on [...]
[2018-04-23] MEDS ORDERED: hydrALAZINE (APESOLINE) 20 MG/ML VIAL IV ONE (00:45)
[2018-04-23] MEDS: 1/2 NS IV SOLUTION 1,000 ML IV SCH ×2 (02:00→14:25)
[2018-04-23] MEDS ORDERED: ACETAMINOPHEN 500 MG TAB (TYLENOL) PO PRN (02:00)
[2018-04-23 05:15] LABS: BASOPHILS % (AUTO) 0 % (0-10); EOSINOPHILS % (AUTO) 0 % (0-10); HEMATOCRIT 26 % (35-52); HEMOGLOBIN 7.5 G/DL (11.5-16.0); LYMPHOCYTES # (AUTO) 0.6 X 10^3 (1.0-4.0); LYMPHOCYTES % (AUTO) 6 % (12-44); MEAN CORPUSCULAR HEMOGLOBIN 27 PG (25-34); MEAN CORPUSCULAR HGB CONC 29 G/DL (32-36); MEAN CORPUSCULAR VOLUME 94 FL (80-99); MEAN PLATELET VOLUME 9.2 FL (7.4-10.4); MONOCYTES # (AUTO) 0.1 X 10^3 (0.0-1.0); MONOCYTES % (AUTO) 1 % (0-12); NEUTROPHILS # (AUTO) 9.8 X 10^3 (1.8-7.8); NEUTROPHILS % (AUTO) 93 % (42-75); PLATELET COUNT 367 10^3/uL (130-400); RED BLOOD COUNT 2.76 10^6/uL (4.35-5.85); RED CELL DISTRIBUTION WIDTH 16.5 % (10.0-14.5); WHITE BLOOD COUNT 10.5 10^3/uL (4.3-11.0)
[2018-04-23 05:36] LABS: ALBUMIN 2.7 GM/DL (3.2-4.5); BILIRUBIN,TOTAL 0.2 MG/DL (0.1-1.0); CALCIUM 10.1 MG/DL (8.5-10.1); CREATININE SERUM 2.21 MG/DL (0.60-1.30); POTASSIUM 5.2 MMOL/L (3.6-5.0); TOTAL PROTEIN 7.1 GM/DL (6.4-8.2)
[2018-04-23] MEDS: methylPREDNISolone 125 MG (Solu-MEDROL) VIAL IVP SCH ×3 (05:52→18:26)
[2018-04-23] MEDS: inSUlin ASPART (NovoLOG) 1 UNIT/0.01 ML (CHARGE PER UNIT) SC SCH ×4 (05:52→22:37)
[2018-04-23] MEDS: NITROGLYCERIN 2% OINT 1 GM UNIT DOSE PACKET TOP SCH ×3 (05:52→18:26)
--- NOTE | 2018-04-23 07:12 | Diagnostic Imaging Report ---
INDICATION: Hypoxia. COMPARISON: 04/20/2018. FINDINGS: Single view of the chest demonstrates stable atelectasis in the mid right lung and left lung base. New atelectasis is seen in the right midlung. The heart is prominent without overt pulmonary edema. There is no pneumothorax or large effusion. Port-A-Cath is stable. IMPRESSION: 1. Stable atelectasis mid right lung and left base. 2. New atelectasis mid left lung. Followup recommended. Dictated by: Dictated on workstation # [id number]
[2018-04-23] MEDS: RT-ALBUTEROL SULF 2.5 MG/3 ML PRE-MIX VIAL INH SCH ×5 (07:40→23:17)
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
--- NOTE | 2018-04-23 10:08 | History & Physical-Hospitalist ---
AC RIVERO DO 04/23/18 1008: History of Present Illness HPI/Chief Complaint CC: Dyspnea HPI: This is a 67yoWF chronically ill who resides in a NH due to previous critcal illness with intubation at [facility] who presents to the ER a few hours after DC for respiratory failure, UTI and renal dysfunction. Pt was wearing biPAP at the time so she was sent to ER placed on Vapotherm and she is currently doing better. Pt with very poor prognosis overall and remains bedridden most of the time. She does not know any other details about her issues. Source: patient Exam Limitations: other (subtle confusion) Date Seen 04/23/18 Time Seen by a Provider: 09:30 Attending Physician Francia Byrd MD [facility] Referring Physician Date of Admission Apr 23, 2018 at 00:01 Home Medications & Allergies Home Medications Reviewed patient Home Medication Reconciliation performed by pharmacy medication reconciliations environmental engineering technician and/or nursing. Patients Allergies have been reviewed. Allergies Allergies Coded Allergies Bacitracin Zinc (Unverified Allergy, Unknown, 07/11/17) Penicillins (Unverified Allergy, Unknown, HAS RECEIVED ROCEPHIN DURING PREVIOUS ADMIT, 07/11/17) bacitracin (Unverified Allergy, Unknown, 07/11/17) colistimethate sodium (Unverified Allergy, Unknown, 07/11/17) gramicidin D (Unverified Allergy, Unknown, 07/11/17) neomycin sulfate (Unverified Allergy, Unknown, 07/11/17) polymyxin B (Unverified Allergy, Unknown, 07/11/17) polymyxin B sulfate (Unverified Allergy, Unknown, 07/11/17) pramoxine HCl (Unverified Allergy, Unknown, 07/11/17) Past Wnepluo-Vnihyx-Erkxfp Hx Past Med/Social Hx: Reviewed Nursing Past Med/Soc Hx, Reviewed and Corrections made Patient Social History Marrital Status: single Employed/Student: unemployed Alcohol Use: Denies Use Recreational Drug Use: No Smoking Status: Former Smoker Type Used: Cigarettes 2nd Hand Smoke Exposure: No Physical Abuse Screen: No Sexual Abuse: No Recent Foreign Travel: No Contact w/other who traveled: No Recent Hopitalizations: Yes (DC'D 04/22/18) Recent Infectious Disease Expo: No Immunizations Up To Date Tetanus Booster (TDap): Unknown Pediatric: No Date of Pneumonia Vaccine: Feb 20, 2018 Date of Influenza Vaccine: Mar 09, 2018 Seasonal Allergies Seasonal Allergies: Yes Past Medical History Surgeries: Adenoidectomy, Cardiac, Coronary Stent, Eye Surgery, Gallbladder, Hysterectomy, Tonsillectomy, Vascular Surgery Respiratory: Sleep Apnea Currently Using CPAP: No Currently Using BIPAP: Yes Cardiac: Chronic Edema/Swelling, Coronary Artery Disease, Deep Vein Thrombosis , High Cholesterol, Hypertension, Valvular Heart Disease Neurological: Neuropathy, Stroke, TIA Reproductive: No Sexually Transmitted Disease: No HIV/AIDS: No Female Reproductive Disorders: Denies Hysterectomy, Menopausal Genitourinary: Bladder Infection, Renal Failure, UTI-Chronic Gastrointestinal: Gastrointestinal Bleed, Chronic Diarrhea, Gall Bladder Disease Musculoskeletal: Degenerate Disk Disease, Arthritis, Chronic Back Pain, Fractures Endocrine: Diabetes, Insulin dep HEENT: Cataract Loss of Vision: Denies Hearing Impairment: Denies Psychosocial: Anxiety, Depression History of Blood Disorders: Yes (Chronic ANEMIA- epo shots) Adverse Reaction to Blood Rodriguez: No (N/A) Family History Alzheimer's disease 19 MOTHER Cardiovascular disease Cataract 19 MOTHER Cataracts Congestive heart failure 19 FATHER Dementia 19 MOTHER Dementia 19 MOTHER Diabetes mellitus Family history: Allergy 19 FATHER 19 MOTHER Family history: Alzheimer's disease 19 MOTHER Family history: Cardiovascular disease 19 MOTHER Family history: Diabetes mellitus G8 BROTHER G8 BROTHER G8 SISTER Family history: Hypertension 19 FATHER Hearing loss G8 BROTHER Heart disease 19 FATHER G8 BROTHER G8 BROTHER G8 SISTER Hypertension 19 FATHER 19 MOTHER G8 BROTHER Infertile 19 FATHER 19 MOTHER G8 BROTHER G8 BROTHER G8 SISTER Myocardial infarction 19 FATHER Myocardial infarction 19 FATHER Psychotic disorder 19 FATHER Severe allergy G8 BROTHER G8 BROTHER Stroke 19 FATHER No Family History of: AIDS Abdominal aortic aneurysm Abdominal aortic aneurysm Gigi's disease Wolfe's disease Alcoholism Alcoholism Aphasia Aphasia Arthritis Asthma Cancer Cancer of colon Cancer of mouth Chest pain Colon cancer Completed stroke Congenital disease Congenital heart disease Congenital heart disease Coronary thrombosis Cystic fibrosis Cystic fibrosis Dysphagia Family history: Arthritis Family history: Asthma Family history: Breast disease Family history: Coronary thrombosis Family history: Gastrointestinal disease Family history: Glaucoma Family history: Osteoporosis Family history: Thyroid disorder Fibrocystic disease of breast Gastroenteritis Glaucoma Headache Headache disorder Hereditary disease History of - anemia History of - disorder History of - respiratory disease History of drug abuse Human immunodeficiency virus (HIV) seropositivity Hypercholesterolemia Hypercholesterolemia Kidney disease Malignant neoplasm of lung Neoplasm Not obtainable due to adoption Osteoporosis Parkinson's disease Parkinson's disease Prostate cancer Psychosocial problem Seizure disorder Seizure disorder Thyroid disease Tuberculosis Tuberculosis Visual disorder Visual impairment Heart Disease, Diabetes, Hypertension Review of Systems Constitutional: see HPI, weakness EENTM: no symptoms reported Respiratory: short of breath Cardiovascular: no symptoms reported Gastrointestinal: no symptoms reported Genitourinary: decreased output Musculoskeletal: back pain Skin: no symptoms reported Psychiatric/Neurological: No Symptoms Reported All Other Systems Reviewed Negative Unless Noted: Yes Physical Exam Physical Exam Vital Signs Vital Signs - First Documented 04/22/18 04/22/18 22:42 23:00 Temp 100.8 Pulse 100 Resp 30 B/P (MAP) 157/91 (113) Pulse Ox 89 O2 Delivery Simple Mask O2 Flow Rate 10.00 FiO2 80 Capillary Refill : Less Than 3 Seconds Height, Weight, BMI Height: 5'5.00" Weight: 333lbs. 5.0oz. 151.851675cl; 55.5 BMI Method:Stated General Appearance: No Apparent Distress, WD/WN, Chronically ill, Obese Eyes: Bilateral Eye Normal Inspection, Bilateral Eye PERRL HEENT: PERRL/EOMI, Normal ENT Inspection, Pharynx Normal Neck: Full Range of Motion, Normal Inspection, Non Tender, Supple, Carotid Bruit Respiratory: Chest Non Tender, No Accessory Muscle Use, No Respiratory Distress , Decreased Breath Sounds Cardiovascular: Regular Rate, Rhythm, No Gallop, No JVD, No Murmur, Normal Peripheral Pulses Gastrointestinal: Normal Bowel Sounds, No Organomegaly, No Pulsatile Mass, Non Tender, Soft Back: Normal Inspection, No CVA Tenderness, No Vertebral Tenderness Extremity: Normal Capillary Refill, Normal Inspection, Normal Range of Motion, Non Tender, No Calf Tenderness, Pedal Edema Neurologic/Psychiatric: Alert, Oriented x3, No Motor/Sensory Deficits, Normal Mood/Affect Skin: Normal Color, Warm/Dry Lymphatic: No Adenopathy Results Results/Procedures Labs Laboratory Tests 04/22/18 22:58 04/23/18 04:55 Patient resulted labs reviewed. 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 transplanted heart: [place] heart Associated angina: without angina Qualified Codes: I25.10 - Atherosclerotic heart disease of [place] coronary artery without angina pectoris (9) Anemia Status: Chronic Qualifiers: Anemia type: due to chronic kidney disease Chronic kidney disease stage: stage 4 (severe) Qualified Codes: N18.4 - Chronic kidney disease, stage 4 ( severe); D63.1 - Anemia in chronic kidney disease Clinical Quality Measures DVT/VTE Risk/Contraindication: Risk Factor Score Per Nursin RFS Level Per Nursing on Admit: 4+=Very High CHRISTINA KELSEY MED STUDENT 04/23/18 1105: History of Present Illness HPI/Chief Complaint CC: hypoxia HPI: This is a 67yo WF who was just d/paul from [facility] yesterday afternoon for a 5- day hospital stay for respiratory failure, UTI, and acute on chronic renal failure presents today for hypoxia. Pt states she was getting ready for bed when the nurse came to check her vitals and had an O2 sat of 60%. Pt states she was using her BiPAP machine at the time. Denied any SOB leading up to this, claims she felt fine. Pt was transported to the ER- placed on vapotherm and maintained sats in the 90s. Today the pt reports she is feeling fine- no SOB, tolerating vapotherm well. Denies any chest pain, N/V/D. AM labs significant for hgb 7.5, hyperkalemia 5.2, and creatinine 2.21 Past [place]-Ayzghb-Ltdlil Hx Family History Alzheimer's disease 19 MOTHER Cardiovascular disease Cataract 19 MOTHER Cataracts Congestive heart failure 19 FATHER Dementia 19 MOTHER Dementia 19 MOTHER Diabetes mellitus Family history: Allergy 19 FATHER 19 MOTHER Family history: Alzheimer's disease 19 MOTHER Family history: Cardiovascular disease 19 MOTHER Family history: Diabetes mellitus G8 BROTHER G8 BROTHER G8 SISTER Family history: Hypertension 19 FATHER Hearing loss G8 BROTHER Heart disease 19 FATHER G8 BROTHER G8 BROTHER G8 SISTER Hypertension 19 FATHER 19 MOTHER G8 BROTHER Infertile 19 FATHER 19 MOTHER G8 BROTHER G8 BROTHER G8 SISTER Myocardial infarction 19 FATHER Myocardial infarction 19 FATHER Psychotic disorder 19 FATHER Severe allergy G8 BROTHER G8 BROTHER Stroke 19 FATHER No Family History of: AIDS Abdominal aortic aneurysm Abdominal aortic aneurysm Wolfe's disease Gigi's disease Alcoholism Alcoholism Aphasia Aphasia Arthritis Asthma Cancer Cancer of colon Cancer of mouth Chest pain Colon cancer Completed stroke Congenital disease Congenital heart disease Congenital heart disease Coronary thrombosis Cystic fibrosis Cystic fibrosis Dysphagia Family history: Arthritis Family history: Asthma Family history: Breast disease Family history: Coronary thrombosis Family history: Gastrointestinal disease Family history: Glaucoma Family history: Osteoporosis Family history: Thyroid disorder Fibrocystic disease of breast Gastroenteritis Glaucoma Headache Headache disorder Hereditary disease History of - anemia History of - disorder History of - respiratory disease History of drug abuse Human immunodeficiency virus (HIV) seropositivity Hypercholesterolemia Hypercholesterolemia Kidney disease Malignant neoplasm of lung Neoplasm Not obtainable due to adoption Osteoporosis Parkinson's disease Parkinson's disease Prostate cancer Psychosocial problem Seizure disorder Seizure disorder Thyroid disease Tuberculosis Tuberculosis Visual disorder Visual impairment Review of Systems Constitutional: no symptoms reported Respiratory: no symptoms reported Cardiovascular: no symptoms reported Gastrointestinal: no symptoms reported Skin: no symptoms reported Psychiatric/Neurological: No Symptoms Reported Physical Exam Physical Exam General Appearance: Chronically ill, Obese Respiratory: No Accessory Muscle Use, Decreased Breath Sounds Cardiovascular: Regular Rate, Rhythm, No Murmur Gastrointestinal: Non Tender Extremity: Pedal Edema Neurologic/Psychiatric: Alert, Normal Mood/Affect Skin: Warm/Dry Assessment/Plan Admission Diagnosis Hypoxia Assessment and Plan Assessment: Respiratory failure Stage 4 chronic kidney disease Anemia Cardiomegaly Sleep apnea Obesity hypoventilation syndrome Diabetes HLD Plan: Advance diet Continue vapotherm Monitor labs Pulm consult AC RIVERO DO Apr 23, 2018 10:08 CHRISTINA KELSEY MED STUDENT Apr 23, 2018 11:05
[2018-04-23] MEDS ORDERED: ACETAMINOPHEN 325 MG TABLET PO PRN (10:15)
[2018-04-23] MEDS ORDERED: MILK OF MAGNESIA 400 MG/5 ML 30 ML UDC PO PRN (10:15)
[2018-04-23] MEDS: GABAPENTIN 300 MG (NEURONTIN) CAP PO SCH ×2 (12:31→22:37)
[2018-04-23] MEDS: hydrALAZINE (APRESOLINE) 25 MG TAB PO SCH ×2 (12:31→22:36)
[2018-04-23] MEDS: TORSEMIDE 20 MG (DEMADEX) TAB PO SCH (17:22)
[2018-04-23] MEDS: LACTULOSE SYRUP 10GM/15ML (ENULOSE) 30ML UDC PO SCH (22:35)
[2018-04-23] MEDS: CEFEPIME INJECTION 2,000 MG in NS (IVPB) 50 ML IV SCH (22:36)
[2018-04-23] MEDS: cloNIDine 0.1 MG (CATAPRES) TAB PO SCH (22:36)
[2018-04-23] MEDS: FERROUS SULF 325 MG (IRON) TAB PO SCH (22:36)
[2018-04-24] VITALS (18 sets, daily range): BP systolic 125–182; BP diastolic 67–98
[2018-04-24] MEDS: methylPREDNISolone 125 MG (Solu-MEDROL) VIAL IVP SCH (00:09)
[2018-04-24] MEDS: NITROGLYCERIN 2% OINT 1 GM UNIT DOSE PACKET TOP SCH ×4 (00:09→18:54)
[2018-04-24] MEDS: RT-ALBUTEROL SULF 2.5 MG/3 ML PRE-MIX VIAL INH SCH ×6 (02:41→22:58)
[2018-04-24] MEDS: 1/2 NS IV SOLUTION 1,000 ML IV SCH (04:03)
[2018-04-24] MEDS: TORSEMIDE 20 MG (DEMADEX) TAB PO SCH ×2 (07:36→17:26)
[2018-04-24] MEDS: inSUlin ASPART (NovoLOG) 1 UNIT/0.01 ML (CHARGE PER UNIT) SC SCH (07:36)
--- NOTE | 2018-04-24 07:45 | Pulmonary Progress Note ---
Subjective Date Seen by a Provider: Apr 24, 2018 Time Seen by a Provider: 07:40 Subjective/Events-last exam Patient reports that she is feeling alright today except for an upset stomach. She also says she did not sleep with Bipap and therefore had some trouble breathing through the night. Sepsis Event Evaluation Height, Weight, BMI Height: 5'5.00" Weight: 333lbs. 5.0oz. 151.890655rs; 55.5 BMI Method:Stated Focused Exam Lactate Level 04/22/18 22:58: Lactic Acid Level 0.91 Respiratory: Chest Non Tender, Lungs Clear, No Accessory Muscle Use, Other Cardiovascular: Regular Rate, Rhythm, No Murmur, Other (some LE edema bilaterally) Skin: normal color, warm/dry Exam Exam Vital Signs Date Time Temp Pulse Resp B/P (MAP) Pulse Ox O2 Delivery O2 Flow Rate FiO2 04/24/18 06:41 95 Vapotherm 20.00 60 04/24/18 04:00 98.2 93 16 172/80 (110) 93 Vapotherm 60.00 20.00 04/24/18 02:41 94 Vapotherm 20.00 60 04/24/18 01:00 94 04/24/18 00:00 98.9 94 16 162/73 (102) 92 Vapotherm 60.00 20.00 04/23/18 23:17 93 Vapotherm 20.00 60 04/23/18 20:00 95 Vapotherm 20.00 80 04/23/18 19:45 97.4 88 20 146/68 (94) 97 Vapotherm 60.00 20.00 04/23/18 19:14 94 Vapotherm 20.00 60 04/23/18 19:00 90 04/23/18 16:00 97.6 80 20 164/89 (114) 96 Vapotherm 60.00 20.00 04/23/18 14:15 93 Vapotherm 20.00 60 04/23/18 13:05 82 04/23/18 12:00 98.5 87 18 161/86 (111) 97 Vapotherm 60.00 20.00 04/23/18 11:01 93 Vapotherm 20.00 60 04/23/18 09:00 97.5 75 18 137/78 (97) 95 Vapotherm 60.00 20.00 04/23/18 08:35 95 Vapotherm 20.00 80 I & O 04/24/18 07:00 Intake Total 3745 ml Output Total 1125 ml Balance 2620 ml Height & Weight Height: 5'5.00" Weight: 333lbs. 5.0oz. 151.781896yu; 55.5 BMI Method:Stated General Appearance: No Apparent Distress, WD/WN, Chronically ill, Obese HEENT: PERRL/EOMI, Normal ENT Inspection, Pharynx Normal Neck: Normal Inspection, Non Tender, Supple Respiratory: Chest Non Tender, No Accessory Muscle Use, No Respiratory Distress , Other (on vapotherm) Cardiovascular: Regular Rate, Rhythm, No Murmur Capillary Refill: Less Than 3 Seconds Gastrointestinal: non tender, soft Extremity: Normal Inspection, Non Tender, No Calf Tenderness, Pedal Edema Neurologic/Psychiatric: Alert, Oriented x3, Normal Mood/Affect Skin: Normal Color, Warm/Dry Results Lab Laboratory Tests 04/22/18 22:58 04/23/18 04:55 Assessment/Plan Assessment/Plan Respiratory Distress -On vapotherm 15L, 55% O2 -Continue to monitor, decrease as tolerated CXR shows continuing and new atelectasis -activity, IS Anemia -Monitor closely Acute on chronic kidney failure UTI -On cefepime HTN -On hydralazine, clonidine, torsemide HERNAN -Bipap during sleep Elevated BNP -monitor Elevated LFT's Elevated alk phos Elevated BNP Low albumin LANDRY CARR MED STUDENT Apr 24, 2018 07:45
[2018-04-24] MEDS: GABAPENTIN 300 MG (NEURONTIN) CAP PO SCH ×3 (08:56→20:38)
[2018-04-24] MEDS: LACTULOSE SYRUP 10GM/15ML (ENULOSE) 30ML UDC PO SCH ×2 (08:56→20:38)
[2018-04-24] MEDS: hydrALAZINE (APRESOLINE) 25 MG TAB PO SCH ×3 (08:56→20:38)
[2018-04-24] MEDS: FERROUS SULF 325 MG (IRON) TAB PO SCH ×2 (08:56→20:39)
[2018-04-24] MEDS: cloNIDine 0.1 MG (CATAPRES) TAB PO SCH ×2 (08:56→20:38)
[2018-04-24] MEDS: CLOPIDOGREL 75 MG (PLAVIX) TABLET PO SCH (08:56)
[2018-04-24] MEDS ORDERED: LORATADINE (CLARITIN) 10 MG TAB PO PRN (09:00)
--- NOTE | 2018-04-24 09:59 | Progress Note-Hospitalist ---
AC RIVERO DO 04/24/18 0959: Subjective HPI/CC On Admission Date Seen by Provider: Apr 24, 2018 Time Seen by Provider: 09:30 CC: Dyspnea HPI: This is a 67yoWF chronically ill who resides in a NH due to previous critcal illness with intubation at [facility] who presents to the ER a few hours after DC for respiratory failure, UTI and renal dysfunction. Pt was wearing biPAP at the time so she was sent to ER placed on Vapotherm and she is currently doing better. Pt with very poor prognosis overall and remains bedridden most of the time. She does not know any other details about her issues. Subjective/Events-last exam High sugars continue even though I am increasing her insulin Steroid stopped today Insulin drip will be necessary so transferred her up to ICU Very complicated patient who is bedridden at CT and poor recovery potential who remains a full code Review of Systems Pulmonary: Dyspnea Focused Exam Lactate Level 04/22/18 22:58: Lactic Acid Level 0.91 Objective Exam Vital Signs Vital Signs Date Time Temp Pulse Resp B/P (MAP) Pulse Ox O2 Delivery O2 Flow Rate FiO2 04/24/18 17:31 98.4 91 20 145/81 (102) 98 High Flow N/C 6.00 04/24/18 13:58 55 Capillary Refill : Less Than 3 Seconds General Appearance: No Apparent Distress, WD/WN, Chronically ill, Obese Respiratory: Chest Non Tender, No Accessory Muscle Use, No Respiratory Distress , Decreased Breath Sounds Cardiovascular: Regular Rate, Rhythm, No Edema, No Gallop, No JVD, No Murmur, Normal Peripheral Pulses Neurologic/Psychiatric: Alert, Oriented x3, No Motor/Sensory Deficits, Normal Mood/Affect Results/Procedures Lab Laboratory Tests 04/24/18 13:20 04/24/18 13:30 Patient resulted labs reviewed. 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 transplanted heart: [place] heart Associated angina: without angina Qualified Codes: I25.10 - Atherosclerotic heart disease of [place] coronary artery without angina pectoris (10) Anemia Status: Chronic Qualifiers: Anemia type: due to chronic kidney disease Chronic kidney disease stage: stage 4 (severe) Qualified Codes: N18.4 - Chronic kidney disease, stage 4 ( severe); D63.1 - Anemia in chronic kidney disease Clinical Quality Measures DVT/VTE Risk/Contraindication: Risk Factor Score Per Nursin RFS Level Per Nursing on Admit: 4+=Very High CHRISTINA KELSEY MED STUDENT 04/24/18 1042: Subjective Subjective/Events-last exam Pt reports significant difficulty breathing overnight- placed back on vapotherm Disoriented during interview- asked if it was Monday morning Says she has been sneezing, but not coughing Hypertensive and hyperglycemic overnight Reports 4/10 pain in her legs Denies bowel/bladder dysfunction Objective Exam General Appearance: Chronically ill, Obese Respiratory: Lungs Clear, Decreased Breath Sounds Cardiovascular: Regular Rate, Rhythm, No Murmur Extremity: Non Tender, Pedal Edema Neurologic/Psychiatric: Alert Assessment/Plan Assessment and Plan Assess & Plan/Chief Complaint Assessment: Respiratory distress Anemia Obesity HTN HERNAN Confusion Acute on chronic RF Plan: D/c steroids Continue vapotherm Blood glucose control Continue IS Increase activity today Diagnosis/Problems Diagnosis/Problems (1) Hypoxia Status: Acute (2) Acute on chronic renal failure Status: Acute (3) Morbid obesity Status: Acute (4) Anemia Status: Chronic Qualifiers: Anemia type: due to chronic kidney disease Chronic kidney disease stage: stage 4 (severe) Qualified Codes: N18.4 - Chronic kidney disease, stage 4 ( severe); D63.1 - Anemia in chronic kidney disease (5) HTN (hypertension) Status: Chronic Qualifiers: Hypertension type: essential hypertension Qualified Codes: I10 - Essential (primary) hypertension (6) Hypertension Status: Chronic (7) 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
[2018-04-24] MEDS ORDERED: inSUlin ASPART (NovoLOG) 1 UNIT/0.01 ML (CHARGE PER UNIT) SC SCH (11:30)
--- NOTE | 2018-04-24 11:49 | Physical Therapy Evaluation ---
PT Evaluation-General Medical Diagnosis Admission Date Apr 23, 2018 at 00:01 Medical Diagnosis: low O2 saturation Onset Date: Apr 23, 2018 Therapy Diagnosis Therapy Diagnosis: debility/weakness Height/Weight Height (Feet): 5 Height (Inches): 5.00 Weight (Pounds): 333 Weight (Ounces): 5.0 Precautions Precautions/Isolations: Fall Prevention, Standard Precautions Referral Physician: Willis Reason for Referral: Evaluation/Treatment Medical History Pertinent Medical History: CAD, COPD, DM, Heart Failure, HTN, CT, OA, Renal Insufficiency Additional Medical History Patient is nonambulatory and a lavinia lift PLOF Current History EMS secondary to decreased SAO2 Reviewed History: Yes Social History Home: Long-Term Prior/Core FIM Prior Level of Function Therapy Code Descriptions/Definitions Functional [place] Measure: 0=Not Assessed/NA 4=Minimal Assistance 1=Total Assistance 5=Supervision or Setup 2=Maximal Assistance 6=Modified [place] 3=Moderate Assistance 7=Complete [place] Therapy Quality Codes: 6 Independent with activity with or without an assistive device 5 Patient requires set up or clean up by helper. Patient completes activity by themselves 4 Supervision or touching assist (CGA). [place] provide cues , steadying assist 3 The helper provides less than half the effort to complete the activity 2 The helper provides more than half the effort to complete the activity 1 Dependent. The helper does all the effort to complete an activity 7 Patient refused to complete or attempt activity 9 The patient did not perform the activity before the current illness or injury 88 Not attempted due to Medical conditions or safety concerns Functional Abilities and Goals: Independent: Patient completed the activities by him/herself, with or without an assistive device, with no assistance from a helper. Needed Some Help: Patient needed partial assistance from another person to complete activities. Dependent: A helper completed the activities for the patient. Unknown: Not Applicable: Bed Mobility: 1 Transfers (B,C,W/C) (FIM): 1 Indoor Mobility (Ambulation): Dependent Stairs: Dependent Prior Devices Use: Motorized wheelchair Prior Device Use: Lavinia Lift PT Evaluation-Current Subjective Patient reports she is in bed or recliner at [place] and does not exercise. Pain Numeric Pain Scale: 0-No Pain Location: No Pain Reported Objective Patient Orientation: Person, Time, Situation Problem Solving: Fair Attachments: Oxygen (vapotherm), Umanzor Catheter, IV ROM/Strength ROM Lower Extremities bilateral LE limited due to edema/obesity and decrease ROM due to inactivity Strength Lower Extremities 1/5 grossly bilaterally Integumentary/Posture Integumentary refer to nursing notes Bowel Incontinence: Yes Bladder Incontinence: Yes Neuromuscular (Tone, Coordination, Reflexes) diminished with all due to extreme inactivity PLOF Sensory Vision: Functional Hearing: Functional Sensation Right Lower Extremit: Impaired Sensation Left Lower Extremity: Impaired Transfers Therapy Code Descriptions/Definitions Functional [place] Measure: 0=Not Assessed/NA 4=Minimal Assistance 1=Total Assistance 5=Supervision or Setup 2=Maximal Assistance 6=Modified [place] 3=Moderate Assistance 7=Complete [place] Transfers (B, C, W/C) (FIM): 1 Scootin Rollin Patient is a Lavinia Lift transfer PLOF and nursing is aware to assist with this. Assessment/Needs Patient reports she does not exercise at [place] and demonstrates inability to actively assist with ROM bilateral LE. Bilateral UE's ROM WFL and patient is able to feed herself. No skilled PT indicated due to patient is currently at [facility] with all gross motor skills. SS notified. Rehab Potential: Poor PT Plan Treatment/Plan Treatment Plan: Discontinue PT Treatment Plan: Other Treatment Duration: Apr 24, 2018 Frequency: 1 time per week Estimated Hrs Per Day: .25 hour per day Patient and/or Family Agrees t: Yes Discharge Recommendations Therapy D/C Recommendations: Long-Term Placement Time/GCodes Time In: 1120 Time Out: 1130 Total Billed Treatment Time: 10 Total Billed Treatment 1 visit EVLowC 10 min G Codes Necessary: LANDON Belle PT Apr 24, 2018 11:49
[2018-04-24] MEDS ORDERED: inSUlin (REGULAR) HUMAN 1 UNIT/0.01 ML (CHARGE PER UNIT) SC NR (13:36)
[2018-04-24 13:45] LABS: BASOPHILS % (AUTO) 0 % (0-10); EOSINOPHILS % (AUTO) 0 % (0-10); HEMATOCRIT 25 % (35-52); HEMOGLOBIN 7.3 G/DL (11.5-16.0); LYMPHOCYTES # (AUTO) 0.5 X 10^3 (1.0-4.0); LYMPHOCYTES % (AUTO) 6 % (12-44); MEAN CORPUSCULAR HEMOGLOBIN 27 PG (25-34); MEAN CORPUSCULAR HGB CONC 30 G/DL (32-36); MEAN CORPUSCULAR VOLUME 92 FL (80-99); MEAN PLATELET VOLUME 9.4 FL (7.4-10.4); MONOCYTES # (AUTO) 0.4 X 10^3 (0.0-1.0); MONOCYTES % (AUTO) 5 % (0-12); NEUTROPHILS # (AUTO) 7.7 X 10^3 (1.8-7.8); NEUTROPHILS % (AUTO) 90 % (42-75); PLATELET COUNT 445 10^3/uL (130-400); RED BLOOD COUNT 2.68 10^6/uL (4.35-5.85); RED CELL DISTRIBUTION WIDTH 16.4 % (10.0-14.5); WHITE BLOOD COUNT 8.6 10^3/uL (4.3-11.0)
[2018-04-24 13:54] LABS: ALBUMIN 2.8 GM/DL (3.2-4.5); BILIRUBIN,TOTAL 0.2 MG/DL (0.1-1.0); CALCIUM 9.3 MG/DL (8.5-10.1); CREATININE SERUM 2.54 MG/DL (0.60-1.30); POTASSIUM 4.7 MMOL/L (3.6-5.0); TOTAL PROTEIN 7.3 GM/DL (6.4-8.2)
[2018-04-24 14:25] LABS: ANISOCYTOSIS SLIGHT; BAND NEUTROPHILS 3 %; BASOPHILS % (MANUAL) 0 %; EOSINOPHILS % (MANUAL) 0 %; LYMPHOCYTES % (MANUAL) 4 %; MONOCYTES % (MANUAL) 5 %; NEUTROPHILS % (MANUAL) 88 %; POLYCHROMASIA SLIGHT
[2018-04-24] MEDS ORDERED: inSUlin (REGULAR) HUMAN 1 UNIT/0.01 ML (CHARGE PER UNIT) SC SCH ×2 (16:00)
[2018-04-24] MEDS ORDERED: NS IV 1000 ML 1,000 ML IV SCH (16:11)
[2018-04-24] MEDS ORDERED: inSUlin REGULAR TPN/DRIP ONLY 250 UNITS in NORMAL SALINE 250 ML IV SCH (16:15)
[2018-04-24] MEDS ORDERED: inSUlin (REGULAR) HUMAN 1 UNIT/0.01 ML (CHARGE PER UNIT) IV ONE (16:15)
[2018-04-24 20:02] LABS: CALCIUM 9.5 MG/DL (8.5-10.1); CREATININE SERUM 2.46 MG/DL (0.60-1.30); POTASSIUM 4.3 MMOL/L (3.6-5.0)
[2018-04-24] MEDS: CEFEPIME INJECTION 2,000 MG in NS (IVPB) 50 ML IV SCH (20:38)
[2018-04-24] MEDS ORDERED: inSUlin DETERMIR 1 UNIT/0.01 ML (LEVEMIR) CHARGE PER UNIT SQ SCH (21:00)
[2018-04-24] MEDS: MICONAZOLE 2% POWDER (DESENEX AF) 90 GM TOP SCH (21:17)
[2018-04-24 22:29] LABS: CALCIUM 9.1 MG/DL (8.5-10.1); CREATININE SERUM 2.35 MG/DL (0.60-1.30)
[2018-04-25] VITALS (17 sets, daily range): BP systolic 94–160; BP diastolic 46–75
[2018-04-25] MEDS: NITROGLYCERIN 2% OINT 1 GM UNIT DOSE PACKET TOP SCH ×4 (00:02→21:01)
[2018-04-25] MEDS: RT-ALBUTEROL SULF 2.5 MG/3 ML PRE-MIX VIAL INH SCH ×6 (02:46→21:10)
[2018-04-25 03:28] LABS: BASOPHILS % (AUTO) 0 % (0-10); EOSINOPHILS % (AUTO) 0 % (0-10); HEMATOCRIT 23 % (35-52); LYMPHOCYTES # (AUTO) 0.7 X 10^3 (1.0-4.0); LYMPHOCYTES % (AUTO) 6 % (12-44); MEAN CORPUSCULAR HEMOGLOBIN 28 PG (25-34); MEAN CORPUSCULAR HGB CONC 30 G/DL (32-36); MEAN CORPUSCULAR VOLUME 93 FL (80-99); MEAN PLATELET VOLUME 9.1 FL (7.4-10.4); MONOCYTES # (AUTO) 0.7 X 10^3 (0.0-1.0); MONOCYTES % (AUTO) 6 % (0-12); NEUTROPHILS # (AUTO) 9.7 X 10^3 (1.8-7.8); NEUTROPHILS % (AUTO) 88 % (42-75); PLATELET COUNT 386 10^3/uL (130-400); RED BLOOD COUNT 2.52 10^6/uL (4.35-5.85); RED CELL DISTRIBUTION WIDTH 16.2 % (10.0-14.5)
[2018-04-25 03:45] LABS: ALBUMIN 2.7 GM/DL (3.2-4.5); BILIRUBIN,TOTAL 0.1 MG/DL (0.1-1.0); CALCIUM 9.4 MG/DL (8.5-10.1); CREATININE SERUM 2.36 MG/DL (0.60-1.30); MAGNESIUM 2.2 MG/DL (1.8-2.4); PHOSPHORUS 4.4 MG/DL (2.3-4.7); TOTAL PROTEIN 6.5 GM/DL (6.4-8.2)
--- NOTE | 2018-04-25 05:11 | Pulmonary Progress Note ---
Subjective Time Seen by a Provider: 05:42 Subjective/Events-last exam Pt transferred to ICU and placed on insulin gtt. Sepsis Event Evaluation Height, Weight, BMI Height: 5'5.00" Weight: 333lbs. 5.0oz. 151.608095hr; 55.5 BMI Method:Stated Focused Exam Lactate Level 04/22/18 22:58: Lactic Acid Level 0.91 Exam Exam Vital Signs Date Time Temp Pulse Resp B/P (MAP) Pulse Ox O2 Delivery O2 Flow Rate FiO2 04/25/18 04:07 97.5 04/25/18 04:00 98 NIV CPAP 5.00 04/25/18 04:00 75 16 133/69 (90) 100 NIV CPAP 7.00 04/25/18 03:00 75 14 130/65 (86) 98 NIV CPAP 7.00 04/25/18 02:46 97 NIV Bilevel 7.00 04/25/18 02:00 75 13 125/64 (84) 100 NIV CPAP 7.00 04/25/18 01:19 86 13 100 NIV CPAP 7.00 04/25/18 01:00 80 13 133/63 (86) 94 NIV CPAP 5.00 04/25/18 01:00 80 04/25/18 00:00 80 19 128/62 (84) 94 NIV CPAP 5.00 04/25/18 00:00 98 NIV CPAP 5.00 04/24/18 23:44 98.7 04/24/18 23:10 86 15 99 NIV CPAP 5.00 04/24/18 23:00 86 16 149/76 (100) 96 Nasal Cannula 3.00 04/24/18 22:58 95 Nasal Cannula 5.00 04/24/18 22:00 82 16 139/74 (95) 98 Nasal Cannula 3.00 04/24/18 21:00 84 10 153/76 (101) 100 Nasal Cannula 3.00 04/24/18 20:15 86 140/76 (97) 100 Nasal Cannula 3.00 04/24/18 20:00 98 Nasal Cannula 5.00 04/24/18 20:00 86 8 146/76 (99) 100 Nasal Cannula 3.00 04/24/18 20:00 96.4 04/24/18 19:29 100 Nasal Cannula 6.00 04/24/18 19:04 87 12/18/18 19:00 89 14 133/67 (89) 100 Nasal Cannula 3.00 04/24/18 18:00 92 19 151/74 (99) 97 Nasal Cannula 3.00 04/24/18 17:45 91 20 139/75 (96) 95 Nasal Cannula 3.00 04/24/18 17:31 98.4 91 20 145/81 (102) 98 High Flow N/C 6.00 04/24/18 17:30 88 20 145/81 (102) 98 Nasal Cannula 3.00 04/24/18 17:15 92 157/84 (108) 97 Nasal Cannula 3.00 04/24/18 17:00 93 22 163/84 (110) 95 Nasal Cannula 3.00 04/24/18 16:45 92 21 160/98 (118) 97 Nasal Cannula 3.00 04/24/18 16:36 89 04/24/18 16:00 97.8 91 19 182/87 (118) 97 High Flow N/C 04/24/18 13:58 92 Vapotherm 10.00 55 04/24/18 12:55 87 04/24/18 12:00 97.8 87 18 136/70 (92) 94 Vapotherm 55.00 15.00 04/24/18 11:56 94 Vapotherm 15.00 55 04/24/18 08:47 93 Vapotherm 15.00 80 04/24/18 08:00 97.8 92 16 125/74 (91) 93 Vapotherm 55.00 15.00 04/24/18 07:00 93 04/24/18 06:41 95 Vapotherm 20.00 60 I & O 04/25/18 07:00 Intake Total 1730 ml Output Total 1975 ml Balance -245 ml Height & Weight Height: 5'5.00" Weight: 333lbs. 5.0oz. 151.180080sc; 55.5 BMI Method:Stated General Appearance: No Apparent Distress, WD/WN, Chronically ill, Obese HEENT: PERRL/EOMI, Normal ENT Inspection, Pharynx Normal Neck: Normal Inspection, Non Tender, Supple Respiratory: Chest Non Tender, No Accessory Muscle Use, No Respiratory Distress , Decreased Breath Sounds Cardiovascular: Regular Rate, Rhythm, No Edema, No Gallop, No JVD, No Murmur, Normal Peripheral Pulses Capillary Refill: Less Than 3 Seconds Gastrointestinal: non tender, soft Extremity: Non Tender, Pedal Edema Neurologic/Psychiatric: Alert, Oriented x3, No Motor/Sensory Deficits, Normal Mood/Affect Skin: Normal Color, Warm/Dry Results Lab Laboratory Tests 04/24/18 13:20 04/24/18 13:30 04/24/18 19:36 04/24/18 22:00 04/25/18 03:10 Assessment/Plan Assessment/Plan Respiratory Distress- much improved -PT is currently on her home CPAP -Continue to monitor, decrease as tolerated Hyperglycemia -Solumedrol D/C -currently on insulin gtt with average of 11units/hr -11x24= 264untis /24hrs -264/4 = 66units ("wiggle room") -66/2=33 units between short and long acting -will give 28 units of Levemir now and D/C insulin gtt. -will give 10units of pre meal insulin x 3 meals -total of 58units of insulin - we will probably need to increase it but will monitor accu checks Q4 for now. -D/c insulin gtt and monitor close CXR shows continuing and new atelectasis -activity, IS Anemia -Monitor closely Acute on chronic kidney failure UTI -On cefepime HTN -On hydralazine, clonidine, torsemide morbid obesity HERNAN with OHS -CPAP Elevated BNP -monitor Elevated LFT's Elevated alk phos Elevated BNP Low albumin CORAZON SERVIN DO Apr 25, 2018 05:11
[2018-04-25] MEDS ORDERED: inSUlin DETERMIR 1 UNIT/0.01 ML (LEVEMIR) CHARGE PER UNIT SQ ONE (05:15)
[2018-04-25] MEDS ORDERED: MAGNESIUM 1 GM/100 ML IVPB 100 ML IV SCH (06:00)
[2018-04-25] MEDS ORDERED: inSUlin (REGULAR) HUMAN 1 UNIT/0.01 ML (CHARGE PER UNIT) SC ONE (06:00)
[2018-04-25] MEDS ORDERED: KCL 20 MEQ TAB (K-DUR) PO SCH (06:00)
[2018-04-25] MEDS ORDERED: POTASSIUM CL 10MEQ/50ML IVPB 50 ML IV SCH (06:00)
[2018-04-25] MEDS: inSUlin (REGULAR) HUMAN 1 UNIT/0.01 ML (CHARGE PER UNIT) SC SCH ×3 (06:26→16:53)
[2018-04-25] MEDS: TORSEMIDE 20 MG (DEMADEX) TAB PO SCH ×2 (07:12→16:53)
[2018-04-25] MEDS: FERROUS SULF 325 MG (IRON) TAB PO SCH ×2 (07:45→21:01)
[2018-04-25] MEDS: cloNIDine 0.1 MG (CATAPRES) TAB PO SCH ×2 (07:45→21:01)
[2018-04-25] MEDS: CLOPIDOGREL 75 MG (PLAVIX) TABLET PO SCH (07:45)
[2018-04-25] MEDS: hydrALAZINE (APRESOLINE) 25 MG TAB PO SCH ×3 (07:45→21:01)
[2018-04-25] MEDS: LACTULOSE SYRUP 10GM/15ML (ENULOSE) 30ML UDC PO SCH ×2 (07:45→21:02)
[2018-04-25] MEDS: GABAPENTIN 300 MG (NEURONTIN) CAP PO SCH ×3 (07:47→21:01)
[2018-04-25] MEDS: MICONAZOLE 2% POWDER (DESENEX AF) 90 GM TOP SCH ×2 (07:50→21:01)
--- NOTE | 2018-04-25 10:31 | Progress Note-Hospitalist ---
AC RIVERO DO 04/25/18 1031: Subjective HPI/CC On Admission Date Seen by Provider: Apr 25, 2018 Time Seen by Provider: 10:00 CC: Dyspnea HPI: This is a 67yoWF chronically ill who resides in a NH due to previous critcal illness with intubation at [facility] who presents to the ER a few hours after DC for respiratory failure, UTI and renal dysfunction. Pt was wearing biPAP at the time so she was sent to ER placed on Vapotherm and she is currently doing better. Pt with very poor prognosis overall and remains bedridden most of the time. She does not know any other details about her issues. Subjective/Events-last exam Patient reports feeling much better Talked about her code blue in the past and talks about this every day Guarded prognosis overall Needs DNR Focused Exam Lactate Level 04/22/18 22:58: Lactic Acid Level 0.91 Objective Exam Vital Signs Vital Signs Date Time Temp Pulse Resp B/P (MAP) Pulse Ox O2 Delivery O2 Flow Rate FiO2 04/25/18 19:53 72 93 32 04/25/18 19:44 97.1 20 116/69 (85) Nasal Cannula 3.00 Capillary Refill : Less Than 3 Seconds General Appearance: No Apparent Distress, WD/WN, Chronically ill, Obese Respiratory: Chest Non Tender, Lungs Clear, Normal Breath Sounds, No Accessory Muscle Use, No Respiratory Distress Cardiovascular: Regular Rate, Rhythm, No Edema, No Gallop, No JVD, No Murmur, Normal Peripheral Pulses Neurologic/Psychiatric: Alert, No Motor/Sensory Deficits, Normal Mood/Affect, Disoriented Results/Procedures Lab Laboratory Tests 04/24/18 22:00 04/25/18 03:10 Patient resulted labs reviewed. 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 transplanted heart: [place] heart Associated angina: without angina Qualified Codes: I25.10 - Atherosclerotic heart disease of [place] coronary artery without angina pectoris (10) Anemia Status: Chronic Qualifiers: Anemia type: due to chronic kidney disease Chronic kidney disease stage: stage 4 (severe) Qualified Codes: N18.4 - Chronic kidney disease, stage 4 ( severe); D63.1 - Anemia in chronic kidney disease Clinical Quality Measures DVT/VTE Risk/Contraindication: Risk Factor Score Per Nursin RFS Level Per Nursing on Admit: 4+=Very High CHRISTINA KELSEY MED STUDENT 04/25/18 1140: Subjective Subjective/Events-last exam Pt transferred to ICU due to severe hyperglycemia Blood sugars are still running 180-220 with ICU insulin support Pt reports she has been "shaky", but has no other complaints Slept better last night on BiPAP machine No pain reported Objective Exam General Appearance: Chronically ill, Obese Respiratory: Accessory Muscle Use Cardiovascular: Regular Rate, Rhythm, No Murmur Extremity: Non Tender, Pedal Edema Neurologic/Psychiatric: Alert, Normal Mood/Affect Skin: Warm/Dry, Pallor Assessment/Plan Assessment and Plan Assess & Plan/Chief Complaint Assessment: Acute on chronic respiratory failure Uncontrolled DM requiring ICU transfer Obesity hypoventilation syndrome HTN HERNAN Plan: IV insulin Monitor labs Diagnosis/Problems Diagnosis/Problems (1) Acute and chronic respiratory failure with hypoxia Status: Acute (2) IDDM (insulin dependent diabetes mellitus) Status: Chronic (3) Morbid obesity Status: Acute (4) Sleep apnea with use of nocturnal bilevel positive airway pressure (BPAP) Status: Chronic (5) HTN (hypertension) Status: Chronic Qualifiers: Hypertension type: essential hypertension Qualified Codes: I10 - Essential (primary) hypertension (6) Anemia Status: Chronic Qualifiers: Anemia type: due to chronic kidney disease Chronic kidney disease stage: stage 4 (severe) Qualified Codes: N18.4 - Chronic kidney disease, stage 4 ( severe); D63.1 - Anemia in chronic kidney disease AC RIVERO DO Apr 25, 2018 10:31 CHRISTINA KELSEY MED STUDENT Apr 25, 2018 11:40
[2018-04-25] MEDS: CEFEPIME INJECTION 2,000 MG in NS (IVPB) 50 ML IV SCH (21:02)
[2018-04-26 00:01] VITALS: BP 134/66
[2018-04-26] MEDS: RT-ALBUTEROL SULF 2.5 MG/3 ML PRE-MIX VIAL INH SCH ×3 (01:23→10:34)
[2018-04-26] MEDS: NITROGLYCERIN 2% OINT 1 GM UNIT DOSE PACKET TOP SCH ×2 (03:40→09:47)
[2018-04-26 04:07] VITALS: BP 143/69
[2018-04-26 05:31] LABS: BASOPHILS % (AUTO) 0 % (0-10); EOSINOPHILS % (AUTO) 0 % (0-10); HEMATOCRIT 24 % (35-52); HEMOGLOBIN 7.2 G/DL (11.5-16.0); LYMPHOCYTES # (AUTO) 1.4 X 10^3 (1.0-4.0); LYMPHOCYTES % (AUTO) 13 % (12-44); MEAN CORPUSCULAR HEMOGLOBIN 28 PG (25-34); MEAN CORPUSCULAR HGB CONC 30 G/DL (32-36); MEAN CORPUSCULAR VOLUME 94 FL (80-99); MEAN PLATELET VOLUME 8.7 FL (7.4-10.4); MONOCYTES # (AUTO) 0.9 X 10^3 (0.0-1.0); MONOCYTES % (AUTO) 8 % (0-12); NEUTROPHILS # (AUTO) 8.6 X 10^3 (1.8-7.8); NEUTROPHILS % (AUTO) 79 % (42-75); PLATELET COUNT 401 10^3/uL (130-400); RED BLOOD COUNT 2.59 10^6/uL (4.35-5.85); RED CELL DISTRIBUTION WIDTH 17.2 % (10.0-14.5); WHITE BLOOD COUNT 10.9 10^3/uL (4.3-11.0)
[2018-04-26 05:53] LABS: CREATININE SERUM 2.48 MG/DL (0.60-1.30); POTASSIUM 4.8 MMOL/L (3.6-5.0)
[2018-04-26] MEDS: TORSEMIDE 20 MG (DEMADEX) TAB PO SCH (06:53)
[2018-04-26] MEDS: inSUlin (REGULAR) HUMAN 1 UNIT/0.01 ML (CHARGE PER UNIT) SC SCH ×2 (06:54→11:45)
[2018-04-26 08:00] VITALS: BP 110/60
[2018-04-26] MEDS: CLOPIDOGREL 75 MG (PLAVIX) TABLET PO SCH (08:17)
[2018-04-26] MEDS: LACTULOSE SYRUP 10GM/15ML (ENULOSE) 30ML UDC PO SCH (08:17)
[2018-04-26] MEDS: GABAPENTIN 300 MG (NEURONTIN) CAP PO SCH ×2 (08:17→13:03)
[2018-04-26] MEDS: FERROUS SULF 325 MG (IRON) TAB PO SCH (08:17)
[2018-04-26] MEDS: MICONAZOLE 2% POWDER (DESENEX AF) 90 GM TOP SCH (08:18)
[2018-04-26] MEDS: cloNIDine 0.1 MG (CATAPRES) TAB PO SCH (09:36)
[2018-04-26] MEDS: hydrALAZINE (APRESOLINE) 25 MG TAB PO SCH ×2 (09:36→13:03)
[2018-04-26] MEDS ORDERED: HYDR30CR71 RC (09:58)
--- NOTE | 2018-04-26 10:01 | Discharge Inst-Skilled Nursing ---
Discharge Inst-Skilled NF Patient Instructions Patient Problems: HERNAN on biPAP Obesity hypoventilation syndrome Goal: Independent ADL's Consult/Follow Up/Orders Follow Up Appt.: [facility] on NH rounds Skilled NF Admit to: [facility] Certification (SNF) I certify that SNF services are required to be given on an inpatient basis because of the above named patient's need for intermediate care on a continuing basis for the conditions(s) for which he/she was receiving inpatient hospital services prior to his/her transfer to the SNF. Intermediate Facility Order: Nursing Services, [employer] Operator-Evaluate & Treat, Physical Therapy-Evaluate & Treat, Speech Language-Evaluate & Treat, Wound Care-Eval/Treat Daily Activity as Tolerated: Yes New & Resume Previous Orders Toya Pedro Apr 26, 2018 10:00 TOYA PEDRO DO Apr 26, 2018 10:01
--- NOTE | 2018-04-26 10:01 | Discharge Summary-Hospitalist ---
AC RIVERO DO 04/26/18 1001: Diagnosis/Chief Complaint Date of Admission Apr 23, 2018 at 00:01 Date of Discharge Discharge Date: Apr 26, 2018 Admission Diagnosis Assessment: Respiratory failure Severe HERNAN Obesity Acute on chronic RF Anemia Confusion Poor prognosis Plan: Home meds Vapotherm Poor prognosis Needs DNR Discharge Diagnosis (1) Acute and chronic respiratory failure with hypoxia Status: Acute (2) IDDM (insulin dependent diabetes mellitus) Status: Chronic (3) Morbid obesity Status: Acute (4) Sleep apnea with use of nocturnal bilevel positive airway pressure (BPAP) Status: Chronic (5) HTN (hypertension) Status: Chronic (6) Anemia Status: Chronic Discharge Summary Discharge Physical Exam Allergies: Coded Allergies: Bacitracin Zinc (Unverified Allergy, Unknown, 07/11/17) Penicillins (Unverified Allergy, Unknown, HAS RECEIVED ROCEPHIN DURING PREVIOUS ADMIT, 07/11/17) bacitracin (Unverified Allergy, Unknown, 07/11/17) colistimethate sodium (Unverified Allergy, Unknown, 07/11/17) gramicidin D (Unverified Allergy, Unknown, 07/11/17) neomycin sulfate (Unverified Allergy, Unknown, 07/11/17) polymyxin B (Unverified Allergy, Unknown, 07/11/17) polymyxin B sulfate (Unverified Allergy, Unknown, 07/11/17) pramoxine HCl (Unverified Allergy, Unknown, 07/11/17) Vitals & I&Os Vital Signs Date Time Temp Pulse Resp B/P (MAP) Pulse Ox O2 Delivery O2 Flow Rate FiO2 04/26/18 14:35 81 20 101/65 98 Nasal Cannula 3.00 80 04/26/18 12:00 97.2 General Appearance: No Apparent Distress, WD/WN, Chronically ill, Obese Respiratory: Chest Non Tender, Lungs Clear, Normal Breath Sounds, No Accessory Muscle Use, No Respiratory Distress, Decreased Breath Sounds Neurologic/Psychiatric: Alert, Oriented x3, No Motor/Sensory Deficits, Depressed Affect Hospital Course Hospital course: Patient had a standard hospital course when she was readmitted for respiratory insufficiency and it appeared that it was because the nasal cannula did not allow the BiPAP mask to be fitted properly allowing patient to retain CO2 and give rise to hypoxia. She is placed on empiric antibiotics along with steroids which cause severe hyperglycemia requiring transfer to ICU for insulin drip. Overall her care home medications were all restarted patient was felt to be optimized during acute care stay and could continue recovery at care home to resume skilled care. She'll remain on 3 L of oxygen 28/11 in addition to placement of BiPAP mask with proper fitting Labs (last 24 hrs) Microbiology 04/22/18 Blood Culture - Preliminary, Resulted No growth 04/24/18 MRSA Screen - Final, Complete 04/22/18 Urine Culture - Final, Complete NO GROWTH Patient resulted labs reviewed. Pending Labs Discussion & Recommendations Discharge Planning: <30 minutes discharge planning Discharge Home Medications: Active Scripts Active Anusol-Hc (Hydrocortisone) 30 Gm Cream..g. 30 Gm RC BID PRN 7 Days Reported Tylenol (Acetaminophen) 325 Mg Tablet 325-650 Mg PO Q6H PRN Turmeric 500 mg Capsule (Turmeric/Turmeric Root Extract) 1 Each Capsule 500 Mg PO BID Pyridium (Phenazopyridine HCl) 200 Mg Tablet 200 Mg PO Q8H PRN Nystatin 1 Each Powder.ea. TOP BID Milk of Magnesia (Magnesium Hydroxide) 400 Mg/5 Ml Oral.susp 30 Ml PO DAILY PRN Levemir Flextouch (Insulin Detemir) 100 Unit/1 Ml Insuln.pen 35 Unit SQ BID Lactulose 10 Gm/15 Ml Solution 15 Ml PO BID Ferrous Sulfate 325 Mg Tablet 325 Mg PO BID Clopidogrel (Clopidogrel Bisulfate) 75 Mg Tablet 75 Mg PO DAILY Vitamin D3 (Cholecalciferol (Vitamin D3)) 50,000 Unit Capsule 50,000 Unit PO WEEK l-Arginine (Arginine HCl) 1,000 Mg Tablet 2,000 Mg PO TID Hydralazine HCl 25 Mg Tablet 25 Mg PO TID Simbrinza 1%-0.2% Eye Drops (Brinzolamide/Brimonidine Tart) 8 Ml Drops.susp 1 Drop OU TID Torsemide 20 Mg Tablet 20 Mg PO BID Clonidine HCl 0.3 Mg Tablet 0.3 Mg PO BID Multi-Vitamin Daily (Multivitamin) 1 Each Tablet 1 Tab PO DAILY Magnesium (Magnesium Oxide) 250 Mg Tablet 250 Mg PO DAILY Aspir 81 (Aspirin) 81 Mg Tablet.dr 81 Mg PO DAILY Gabapentin 100 Mg Capsule 300 Mg PO TID TAKES 3 (100MG) CAPSULES Alavert (Loratadine) 10 Mg Tab.rapdis 10 Mg PO DAILY PRN Rosuvastatin Calcium 20 Mg Tablet 20 Mg PO HS Novolog Flexpen (Insulin Aspart) 300 Units/3 Ml Solution 20 Units SC AC Fish Oil 1,000 mg Softgel ([place]-3/Dha/Epa/Fish Oil) 1 Each Capsule 1,000 Mg PO TID Instructions to patient/family Please see electronic discharge instructions given to patient. Clinical Quality Measures DVT/VTE Risk/Contraindication: Risk Factor Score Per Nursin RFS Level Per Nursing on Admit: 4+=Very High CHRISTINA KELSEY MED STUDENT 04/26/18 1013: Discharge Summary Discharge Physical Exam Allergies: Coded Allergies: Bacitracin Zinc (Unverified Allergy, Unknown, 07/11/17) Penicillins (Unverified Allergy, Unknown, HAS RECEIVED ROCEPHIN DURING PREVIOUS ADMIT, 07/11/17) bacitracin (Unverified Allergy, Unknown, 07/11/17) colistimethate sodium (Unverified Allergy, Unknown, 07/11/17) gramicidin D (Unverified Allergy, Unknown, 07/11/17) neomycin sulfate (Unverified Allergy, Unknown, 07/11/17) polymyxin B (Unverified Allergy, Unknown, 07/11/17) polymyxin B sulfate (Unverified Allergy, Unknown, 07/11/17) pramoxine HCl (Unverified Allergy, Unknown, 07/11/17) General Appearance: Chronically ill, Moderate Distress, Obese Respiratory: Chest Non Tender, Decreased Breath Sounds Cardiovascular: Regular Rate, Rhythm Extremity: Pedal Edema, Swelling Skin: Warm/Dry, Pallor Neurologic/Psychiatric: Alert, Depressed Affect Hospital Course This is a 67 yo chronically ill woman with multiple health issues who was admitted on 04/23/18 for hypoxia. Pt was placed on vapotherm and responded well. Dx with a UTI and placed on a course of cefepime. Pt had a severe hyperglycemia and was transferred to the ICU on day 3 for an insulin drip. Hyperglycemia trended down but pt is still having blood glucose levels around ~ 250. Pt will be d/paul back to care home with guarded status. Problem Qualifiers (1) HTN (hypertension): Hypertension type: essential hypertension Qualified Codes: I10 - Essential ( primary) hypertension (2) Anemia: Anemia type: due to chronic kidney disease Chronic kidney disease stage: stage 4 (severe) Qualified Codes: N18.4 - Chronic kidney disease, stage 4 ( severe); D63.1 - Anemia in chronic kidney disease AC RIVERO DO Apr 26, 2018 10:01 CHRISTINA KELSEY MED STUDENT Apr 26, 2018 10:13
[2018-04-26 12:00] VITALS: BP 101/65
[2018-04-26 14:35] VITALS: BP 101/65
== END 2018-04-26 14:35 | DRG 871 ==
LOC: EDUNIT# 22:42 → ER 22:43 → 4TH 04-23 00:01 → ICU 04-24 16:59 → 4TH 04-25 13:50
PROVIDERS: ADMIT Family Medicine; ATTEND Family Medicine
DX: A41.9 Sepsis, unspecified organism (principal); J96.21 Acute and chronic respiratory failure with hypoxia; N39.0 Urinary tract infection, site not specified; J98.11 Atelectasis; N17.9 Acute kidney failure, unspecified; E66.2 Morbid (severe) obesity with alveolar hypoventilation; Z68.43 Body mass index [BMI] 50.0-59.9, adult; I12.9 Hypertensive chronic kidney disease with stage 1 through stage 4 chronic kidney disease, or unspecified chronic kidney disease; N18.4 Chronic kidney disease, stage 4 (severe); D63.1 Anemia in chronic kidney disease; E11.65 Type 2 diabetes mellitus with hyperglycemia; T49.0X5A Adverse effect of local antifungal, anti-infective and anti-inflammatory drugs, initial encounter; J44.9 Chronic obstructive pulmonary disease, unspecified; I25.10 Atherosclerotic heart disease of native coronary artery without angina pectoris; E78.00 Pure hypercholesterolemia, unspecified; E11.42 Type 2 diabetes mellitus with diabetic polyneuropathy; E11.319 Type 2 diabetes mellitus with unspecified 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 edema; M19.91 Primary osteoarthritis, unspecified site; M54.9 Dorsalgia, unspecified; F41.9 Anxiety disorder, unspecified; F32.9 Major depressive disorder, single episode, unspecified; I87.8 Other specified disorders of veins; R74.8 Abnormal levels of other serum enzymes; Z87.891 Personal history of nicotine dependence; Z95.5 Presence of coronary angioplasty implant and graft; Z95.828 Presence of other vascular implants and grafts; Z79.4 Long term (current) use of insulin; Z74.01 Bed confinement status; Z86.718 Personal history of other venous thrombosis and embolism; Z86.73 Personal history of transient ischemic attack (TIA), and cerebral infarction without residual deficits
CPT/HCPCS: 36415; 51702; 71045; 80048; 80053; 81000; 82805; 82962; 83605; 83735; 83880; 84100; 84443; 84484; 85007; 85025; 85027; 85610; 85730; 87040; 87081; 87088; 87804; 93005; 94640; 94664; 94760; 96365; 96375

== ENCOUNTER → 2018-05-14 | Outpatient (RCR) | payer MEDICARE, MEDICAID ==
[2018-02-13 14:39] LABS: ABSOLUTE RETIC # 52 10e9/L (24-90); BASOPHILS % (AUTO) 0 % (0-10); EOSINOPHILS # (AUTO) 0.1 10^3/uL (0.0-0.3); EOSINOPHILS % (AUTO) 1 % (0-10); HEMATOCRIT 33 % (35-52); LYMPHOCYTES # (AUTO) 1.7 X 10^3 (1.0-4.0); LYMPHOCYTES % (AUTO) 17 % (12-44); MEAN CORPUSCULAR HEMOGLOBIN 27 PG (25-34); MEAN CORPUSCULAR HGB CONC 31 G/DL (32-36); MEAN CORPUSCULAR VOLUME 88 FL (80-99); MONOCYTES # (AUTO) 0.9 X 10^3 (0.0-1.0); MONOCYTES % (AUTO) 9 % (0-12); NEUTROPHILS # (AUTO) 7.4 X 10^3 (1.8-7.8); NEUTROPHILS % (AUTO) 73 % (42-75); PLATELET COUNT 354 10^3/uL (130-400); RED CELL DISTRIBUTION WIDTH 16.6 % (10.0-14.5); RETICULOCYTE % 1.41 % (0.50-2.40); WHITE BLOOD COUNT 10.2 10^3/uL (4.3-11.0)
[2018-02-19 13:21] LABS: ABSOLUTE RETIC # 44 10e9/L (24-90); BASOPHILS % (AUTO) 0 % (0-10); EOSINOPHILS # (AUTO) 0.2 10^3/uL (0.0-0.3); EOSINOPHILS % (AUTO) 2 % (0-10); HEMATOCRIT 30 % (35-52); HEMOGLOBIN 9.4 G/DL (11.5-16.0); LYMPHOCYTES # (AUTO) 1.7 X 10^3 (1.0-4.0); LYMPHOCYTES % (AUTO) 17 % (12-44); MEAN CORPUSCULAR HEMOGLOBIN 27 PG (25-34); MEAN CORPUSCULAR HGB CONC 31 G/DL (32-36); MEAN CORPUSCULAR VOLUME 87 FL (80-99); MEAN PLATELET VOLUME 8.8 FL (7.4-10.4); MONOCYTES # (AUTO) 0.8 X 10^3 (0.0-1.0); MONOCYTES % (AUTO) 8 % (0-12); NEUTROPHILS # (AUTO) 7.1 X 10^3 (1.8-7.8); NEUTROPHILS % (AUTO) 73 % (42-75); PLATELET COUNT 329 10^3/uL (130-400); RED BLOOD COUNT 3.45 10^6/uL (4.35-5.85); RED CELL DISTRIBUTION WIDTH 16.5 % (10.0-14.5); RETICULOCYTE % 1.28 % (0.50-2.40); WHITE BLOOD COUNT 9.7 10^3/uL (4.3-11.0)
[2018-02-19 13:41] LABS: ALBUMIN 3.2 GM/DL (3.2-4.5); BILIRUBIN,TOTAL 0.2 MG/DL (0.1-1.0); CALCIUM 10.4 MG/DL (8.5-10.1); CREATININE SERUM 2.59 MG/DL (0.60-1.30); POTASSIUM 4.2 MMOL/L (3.6-5.0); TOTAL PROTEIN 7.9 GM/DL (6.4-8.2)
[2018-04-16 11:19] LABS: ABSOLUTE RETIC # 75 10e9/L (24-90); BASOPHILS % (AUTO) 0 % (0-10); EOSINOPHILS # (AUTO) 0.1 10^3/uL (0.0-0.3); EOSINOPHILS % (AUTO) 1 % (0-10); HEMATOCRIT 27 % (35-52); HEMOGLOBIN 7.7 G/DL (11.5-16.0); LYMPHOCYTES # (AUTO) 1.1 X 10^3 (1.0-4.0); LYMPHOCYTES % (AUTO) 9 % (12-44); MEAN CORPUSCULAR HEMOGLOBIN 27 PG (25-34); MEAN CORPUSCULAR HGB CONC 29 G/DL (32-36); MEAN CORPUSCULAR VOLUME 95 FL (80-99); MEAN PLATELET VOLUME 8.3 FL (7.4-10.4); MONOCYTES # (AUTO) 1.3 X 10^3 (0.0-1.0); MONOCYTES % (AUTO) 10 % (0-12); NEUTROPHILS # (AUTO) 10.3 X 10^3 (1.8-7.8); NEUTROPHILS % (AUTO) 81 % (42-75); PLATELET COUNT 371 10^3/uL (130-400); RED BLOOD COUNT 2.85 10^6/uL (4.35-5.85); RED CELL DISTRIBUTION WIDTH 17.3 % (10.0-14.5); RETICULOCYTE % 2.62 % (0.50-2.40); WHITE BLOOD COUNT 12.7 10^3/uL (4.3-11.0)
[2018-04-16 11:47] LABS: ALBUMIN 2.9 GM/DL (3.2-4.5); BILIRUBIN,TOTAL 0.2 MG/DL (0.1-1.0); CALCIUM 10.2 MG/DL (8.5-10.1); CREATININE SERUM 2.26 MG/DL (0.60-1.30); POTASSIUM 4.8 MMOL/L (3.6-5.0); TOTAL PROTEIN 7.2 GM/DL (6.4-8.2)
[2018-05-02 09:49] LABS: BASOPHILS % (AUTO) 0 % (0-10); EOSINOPHILS # (AUTO) 0.1 10^3/uL (0.0-0.3); EOSINOPHILS % (AUTO) 1 % (0-10); HEMATOCRIT 28 % (35-52); HEMOGLOBIN 8.2 G/DL (11.5-16.0); LYMPHOCYTES # (AUTO) 1.2 X 10^3 (1.0-4.0); LYMPHOCYTES % (AUTO) 12 % (12-44); MEAN CORPUSCULAR HEMOGLOBIN 28 PG (25-34); MEAN CORPUSCULAR HGB CONC 29 G/DL (32-36); MEAN CORPUSCULAR VOLUME 96 FL (80-99); MEAN PLATELET VOLUME 8.7 FL (7.4-10.4); MONOCYTES # (AUTO) 1.1 X 10^3 (0.0-1.0); MONOCYTES % (AUTO) 12 % (0-12); NEUTROPHILS # (AUTO) 7.2 X 10^3 (1.8-7.8); NEUTROPHILS % (AUTO) 75 % (42-75); PLATELET COUNT 371 10^3/uL (130-400); RED BLOOD COUNT 2.91 10^6/uL (4.35-5.85); RED CELL DISTRIBUTION WIDTH 17.5 % (10.0-14.5); WHITE BLOOD COUNT 9.6 10^3/uL (4.3-11.0)
[2018-05-07 10:54] LABS: BASOPHILS % (AUTO) 0 % (0-10); EOSINOPHILS # (AUTO) 0.1 10^3/uL (0.0-0.3); EOSINOPHILS % (AUTO) 1 % (0-10); HEMATOCRIT 29 % (35-52); HEMOGLOBIN 8.1 G/DL (11.5-16.0); LYMPHOCYTES # (AUTO) 1.1 X 10^3 (1.0-4.0); LYMPHOCYTES % (AUTO) 10 % (12-44); MEAN CORPUSCULAR HEMOGLOBIN 28 PG (25-34); MEAN CORPUSCULAR HGB CONC 28 G/DL (32-36); MEAN CORPUSCULAR VOLUME 98 FL (80-99); MEAN PLATELET VOLUME 8.5 FL (7.4-10.4); MONOCYTES % (AUTO) 9 % (0-12); NEUTROPHILS # (AUTO) 8.7 X 10^3 (1.8-7.8); NEUTROPHILS % (AUTO) 80 % (42-75); PLATELET COUNT 339 10^3/uL (130-400); RED BLOOD COUNT 2.92 10^6/uL (4.35-5.85); RED CELL DISTRIBUTION WIDTH 17.3 % (10.0-14.5); WHITE BLOOD COUNT 10.9 10^3/uL (4.3-11.0)
[~2018-05-14] MED LIST changes: +DARBEPOETIN 10 MCG/0.4 ML ARANESP IJ SCH; +HYDR30CR71 RC
[2018-05-14 12:02] LABS: BASOPHILS % (AUTO) 0 % (0-10); EOSINOPHILS # (AUTO) 0.1 10^3/uL (0.0-0.3); EOSINOPHILS % (AUTO) 1 % (0-10); HEMATOCRIT 28 % (35-52); HEMOGLOBIN 7.8 G/DL (11.5-16.0); LYMPHOCYTES # (AUTO) 1.3 X 10^3 (1.0-4.0); LYMPHOCYTES % (AUTO) 14 % (12-44); MEAN CORPUSCULAR HEMOGLOBIN 28 PG (25-34); MEAN CORPUSCULAR HGB CONC 28 G/DL (32-36); MEAN CORPUSCULAR VOLUME 98 FL (80-99); MEAN PLATELET VOLUME 9.2 FL (7.4-10.4); MONOCYTES % (AUTO) 11 % (0-12); NEUTROPHILS # (AUTO) 6.9 X 10^3 (1.8-7.8); NEUTROPHILS % (AUTO) 73 % (42-75); PLATELET COUNT 381 10^3/uL (130-400); RED BLOOD COUNT 2.83 10^6/uL (4.35-5.85); RED CELL DISTRIBUTION WIDTH 17.1 % (10.0-14.5); WHITE BLOOD COUNT 9.4 10^3/uL (4.3-11.0)
== END | disposition home or self-care (01) ==
LOC: ONC 02-13 14:17
PROVIDERS: ATTEND Internal Medicine Hematology & Oncology
DX: N18.4 Chronic kidney disease, stage 4 (severe) (principal); D63.1 Anemia in chronic kidney disease; I12.9 Hypertensive chronic kidney disease with stage 1 through stage 4 chronic kidney disease, or unspecified chronic kidney disease; E11.22 Type 2 diabetes mellitus with diabetic chronic kidney disease; E78.5 Hyperlipidemia, unspecified; G47.33 Obstructive sleep apnea (adult) (pediatric); I25.10 Atherosclerotic heart disease of native coronary artery without angina pectoris; E66.01 Morbid (severe) obesity due to excess calories; Z68.43 Body mass index [BMI] 50.0-59.9, adult; Z79.4 Long term (current) use of insulin; Z79.82 Long term (current) use of aspirin; Z79.899 Other long term (current) drug therapy
CPT/HCPCS: 36591; 80053; 82607; 82728; 82746; 85025; 85045; 96372

== ENCOUNTER 2018-05-17 11:40 | Inpatient (IN) | payer MEDICARE, MEDICAID ==
[2018-05-17] VITALS (22 sets, daily range): BP systolic 82–146; BP diastolic 48–79
[~2018-05-17] VITALS: Ht 165.1 cm; Wt 140.7 kg
[~2018-05-17 11:40] MED LIST changes: -DARBEPOETIN 10 MCG/0.4 ML ARANESP IJ SCH
--- OUTSIDE RECORDS SUMMARY | 2018-05-17 11:45 | XMS REPORT | Clinical Summary ---
Author Author [facility] Organization [facility] Address Unknown Phone Unavailable Care Team Providers Care Icu Rn Name Role Phone Tobi Benson MD PCP Source Comments Some departments are not documenting in the electronic medical record. If you do not see the information that you expected, contact Release of Information in the Health Information Management department at [phone] for further assistance in locating additional records.[facility] Allergies Not on File Medications Not [...]
--- NOTE | 2018-05-17 12:02 | NUR ---
PORT FLUSHES WITHOUT PROBLEM UNABLE TO DRAW BLOOD FORM LAB CALLED TO DRAW BLOOD
--- NOTE | 2018-05-17 12:06 | NUR ---
RT HERE CHANGED TO OUR BI LEWIS
--- NOTE | 2018-05-17 12:13 | NUR ---
BOTH SETS OF BLOOD CULTURE DRAWN BY LAB PCXR DONE
[2018-05-17 12:22] LABS: ABG BASE EXCESS 8.6 MMOL/L (-2.5-2.5); ABG OXYGEN SATURATION 91 % (94-100); ABG PCO2 65 MMHG (35-45); ABG PO2 63 MMHG (79-93); ABG TCO2 36.2 MMOL/L (21.0-31.0)
[2018-05-17 12:23] LABS: BASOPHILS % (AUTO) 0 % (0-10); EOSINOPHILS % (AUTO) 0 % (0-10); HEMATOCRIT 26 % (35-52); HEMOGLOBIN 7.3 G/DL (11.5-16.0); LYMPHOCYTES # (AUTO) 1.5 X 10^3 (1.0-4.0); LYMPHOCYTES % (AUTO) 16 % (12-44); MEAN CORPUSCULAR HEMOGLOBIN 27 PG (25-34); MEAN CORPUSCULAR HGB CONC 28 G/DL (32-36); MEAN CORPUSCULAR VOLUME 97 FL (80-99); MEAN PLATELET VOLUME 8.8 FL (7.4-10.4); MONOCYTES # (AUTO) 1.3 X 10^3 (0.0-1.0); MONOCYTES % (AUTO) 13 % (0-12); NEUTROPHILS # (AUTO) 6.8 X 10^3 (1.8-7.8); NEUTROPHILS % (AUTO) 71 % (42-75); PLATELET COUNT 392 10^3/uL (130-400); RED BLOOD COUNT 2.68 10^6/uL (4.35-5.85); RED CELL DISTRIBUTION WIDTH 17.6 % (10.0-14.5); WHITE BLOOD COUNT 9.6 10^3/uL (4.3-11.0)
[2018-05-17 12:26] LABS: ABG PH 7.34 (7.37-7.43); ALLENS TEST YES-POS
[2018-05-17 12:27] LABS: INSPIRED O2 10; PATIENT TEMP 99.2; VENTILATOR NO
--- NOTE | 2018-05-17 12:30 | ED General ---
General Chief Complaint: Respiratory Problems Stated Complaint: SOB Nursing Triage Note: TO ED PER EMS FROM INTERMEDIATE STAFF REPORTS THAT SHE ATE BREAKFAST THAN APX 1045 WENT TO CHECK ON HER AND SLOW TO RESPOND AND HER SA02 WAS 85% ON 4. ON ADMIT EYES OPEN WILL SHAKE HEAD IN RSPONSE TO QUESTION Nursing Sepsis Screen: No Definite Risk Source of Information: Patient, EMS, [facility] Records, Old Records Exam Limitations: No Limitations History of Present Illness Date Seen by Provider: May 17, 2018 Time Seen by Provider: 11:41 Initial Comments This 67-year-old woman presents to the emergency room via EMS from the senior living where she was found to have severely decreased responsiveness. She was noted to be hypoxic with an oxygen saturation in the mid 80s on CPAP. EMS reports fingerstick blood sugar was 188. Temperature for EMS was 101. Patient has severe comorbidities and an extensive past medical history. She has coronary artery disease with stenting, history of cardiac arrest, chronic kidney disease, chronic anemia, severe hypertension, history of DVT, history of obesity with hypoventilation and sleep apnea, and diabetes. She is also Jehovah 's Witness and does not want any blood products. She has a full CODE STATUS ordered on her senior living MAR. Patient does not yes when I ask her whether or not she would wish to be intubated if CPAP is not sufficient for her. She is responsive to voice but is not really speaking comprehensibly with the CPAP mask on. She does follow commands by gripping with each hand. She will slightly move both feet as well. Patient has limited use of her legs at baseline. Allergies and Home Medications Allergies Coded Allergies: Bacitracin Zinc (Unverified Allergy, Unknown, 07/11/17) Penicillins (Unverified Allergy, Unknown, HAS RECEIVED ROCEPHIN DURING PREVIOUS ADMIT, 07/11/17) bacitracin (Unverified Allergy, Unknown, 07/11/17) colistimethate sodium (Unverified Allergy, Unknown, 07/11/17) gramicidin D (Unverified Allergy, Unknown, 07/11/17) neomycin sulfate (Unverified Allergy, Unknown, 07/11/17) polymyxin B (Unverified Allergy, Unknown, 07/11/17) polymyxin B sulfate (Unverified Allergy, Unknown, 07/11/17) pramoxine HCl (Unverified Allergy, Unknown, 07/11/17) Home Medications Acetaminophen 325 Mg Tablet, 325-650 MG PO Q6H PRN for PAIN-MILD, (Reported) Arginine HCl 1,000 Mg Tablet, 2,000 MG PO TID, (Reported) Aspirin 81 Mg Tablet.dr, 81 MG PO DAILY, (Reported) Brinzolamide/Brimonidine Tart 8 Ml Drops.susp, 1 DROP OU TID, (Reported) Cholecalciferol (Vitamin D3) 50,000 Unit Capsule, 50,000 UNIT PO WEEK, (Reported ) Clonidine HCl 0.3 Mg Tablet, 0.3 MG PO BID, (Reported) Clopidogrel Bisulfate 75 Mg Tablet, 75 MG PO DAILY, (Reported) Ferrous Sulfate 325 Mg Tablet, 325 MG PO BID, (Reported) Gabapentin 100 Mg Capsule, 300 MG PO TID, (Reported) TAKES 3 (100MG) CAPSULES Hydralazine HCl 25 Mg Tablet, 25 MG PO TID, (Reported) Hydrocortisone 30 Gm Cream..g., 30 GM RC BID PRN for HEMORRHOIDS Prescribed by: AC RIVERO on 04/26/18 0958 Insulin Aspart 300 Units/3 Ml Solution, 20 UNITS SC AC, (Reported) Insulin Detemir 100 Unit/1 Ml Insuln.pen, 35 UNIT SQ BID, (Reported) Lactulose 10 Gm/15 Ml Solution, 15 ML PO BID, (Reported) Loratadine 10 Mg Tab.rapdis, 10 MG PO DAILY PRN for ALLERGIES, (Reported) Magnesium Hydroxide 400 Mg/5 Ml Oral.susp, 30 ML PO DAILY PRN for CONSTIPATION- 7TH LINE, (Reported) Magnesium Oxide 250 Mg Tablet, 250 MG PO DAILY, (Reported) Multivitamin 1 Each Tablet, 1 TAB PO DAILY, (Reported) Nystatin 1 Each Powder.ea., TOP BID, (Reported) Onaka-3/Dha/Epa/Fish Oil 1 Each Capsule, 1,000 MG PO TID, (Reported) Phenazopyridine HCl 200 Mg Tablet, 200 MG PO Q8H PRN for BLADDER SPASMS, ( Reported) Rosuvastatin Calcium 20 Mg Tablet, 20 MG PO HS, (Reported) Torsemide 20 Mg Tablet, 20 MG PO BID, (Reported) Turmeric/Turmeric Root Extract 1 Each Capsule, 500 MG PO BID, (Reported) Patient Home Medication List Home Medication List Reviewed: Yes Review of Systems Review of Systems Constitutional: see HPI EENTM: no symptoms reported Respiratory: see HPI Cardiovascular: no symptoms reported Gastrointestinal: no symptoms reported Genitourinary: no symptoms reported : No Musculoskeletal: no symptoms reported Skin: no symptoms reported Psychiatric/Neurological: See HPI Hematologic/Lymphatic: No Symptoms Reported Immunological/Allergic: no symptoms reported Past Hvmudyk-Cdibdr-Jtxqfa Hx Past Med/Social Hx: Reviewed and Corrections made Patient Social History Alcohol Use: Denies Use Recreational Drug Use: No Type Used: Cigarettes 2nd Hand Smoke Exposure: No Recent Foreign Travel: No Contact w/Someone Who Travel: No Recent Infectious Disease Expo: No Recent Hopitalizations: Yes (DC'D 04/22/18) Immunizations Up To Date Tetanus Booster (TDap): Unknown PED Vaccines UTD: No Date of Pneumonia Vaccine: Feb 20, 2018 Date of Influenza Vaccine: Mar 09, 2018 Seasonal Allergies Seasonal Allergies: Yes Past Medical History Surgeries: Yes Adenoidectomy, Cardiac, Coronary Stent, Eye Surgery, Gallbladder, Hysterectomy, Tonsillectomy, Vascular Surgery (IVC filter) Respiratory: Yes (WEARS O2, SLEEP APNEA; OBESITY HYPOVENTILATION) Sleep Apnea, COPD Currently Using CPAP: No Currently Using BIPAP: Yes Cardiac: Yes Chronic Edema/Swelling, Coronary Artery Disease, Deep Vein Thrombosis, High Cholesterol, Hypertension, Peripheral Vascular (carotid stenosis), Valvular Heart Disease Neurological: Yes (VENA CAVA FILTER IN PLACE; MULTIPLE TIA'S ; POLYNEUROPATHY) Neuropathy, Stroke, TIA Reproductive Disorders: No 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, Menopausal Sexually Transmitted Disease: No HIV/AIDS: No Genitourinary: Yes (2 abscessed kidneys per patient) Bladder Infection, Renal Failure, UTI-Chronic Gastrointestinal: Yes Gastrointestinal Bleed, Chronic Diarrhea, Gall Bladder Disease Musculoskeletal: Yes Degenerate Disk Disease, Arthritis, Chronic Back Pain, Fractures Endocrine: Yes (MORBID OBESITY) Diabetes, Insulin dep HEENT: Yes (DIABETIC RETINOPATHY) Cataract Loss of Vision: Denies Hearing Impairment: Denies Cancer: No Psychosocial: Yes Anxiety, Depression Integumentary: No Blood Disorders: Yes (Chronic ANEMIA- epo shots) Adverse Reaction/Blood Tranf: No (N/A) Family Medical History Reviewed Nursing Family Hx Alzheimer's disease 19 MOTHER Cardiovascular disease Cataract 19 MOTHER Cataracts Congestive heart failure 19 FATHER Dementia 19 MOTHER Dementia 19 MOTHER Diabetes mellitus Family history: Allergy 19 FATHER 19 MOTHER Family history: Alzheimer's disease 19 MOTHER Family history: Cardiovascular disease 19 MOTHER Family history: Diabetes mellitus G8 BROTHER G8 BROTHER G8 SISTER Family history: Hypertension 19 FATHER Hearing loss G8 BROTHER Heart disease 19 FATHER G8 BROTHER G8 BROTHER G8 SISTER Hypertension 19 FATHER 19 MOTHER G8 BROTHER Infertile 19 FATHER 19 MOTHER G8 BROTHER G8 BROTHER G8 SISTER Myocardial infarction 19 FATHER Myocardial infarction 19 FATHER Psychotic disorder 19 FATHER Severe allergy G8 BROTHER G8 BROTHER Stroke 19 FATHER No Family History of: AIDS Abdominal aortic aneurysm Abdominal aortic aneurysm Cecil's disease Gigi's disease Alcoholism Alcoholism Aphasia Aphasia Arthritis Asthma Cancer Cancer of colon Cancer of mouth Chest pain Colon cancer Completed stroke Congenital disease Congenital heart disease Congenital heart disease Coronary thrombosis Cystic fibrosis Cystic fibrosis Dysphagia Family history: Arthritis Family history: Asthma Family history: Breast disease Family history: Coronary thrombosis Family history: Gastrointestinal disease Family history: Glaucoma Family history: Osteoporosis Family history: Thyroid disorder Fibrocystic disease of breast Gastroenteritis Glaucoma Headache Headache disorder Hereditary disease History of - anemia History of - disorder History of - respiratory disease History of drug abuse Human immunodeficiency virus (HIV) seropositivity Hypercholesterolemia Hypercholesterolemia Kidney disease Malignant neoplasm of lung Neoplasm Not obtainable due to adoption Osteoporosis Parkinson's disease Parkinson's disease Prostate cancer Psychosocial problem Seizure disorder Seizure disorder Thyroid disease Tuberculosis Tuberculosis Visual disorder Visual impairment Heart Disease, Diabetes, Hypertension Physical Exam-Suspected Sepsis Physical Exam Vital Signs Vital Signs - First Documented 05/17/18 05/17/18 11:40 12:06 Temp 99.2 Pulse 82 Resp 18 B/P (MAP) 106/55 (72) Pulse Ox 94 O2 Delivery NIV/Bilevel O2 Flow Rate 10.00 Capillary Refill : Less Than 3 Seconds Blood Pressure Mean: 88 Height, Weight, BMI Height: 5'5.00" Weight: 346lbs. 9.4oz. [id number]; 55.5 BMI Method:Stated General Appearance: No Apparent Distress, WD/WN, Obese HEENT: PERRL/EOMI, Normal ENT Inspection, Other (Mucus membranes dry) Neck: Normal Inspection Respiratory: No Accessory Muscle Use, No Respiratory Distress, Decreased Breath Sounds, Other (decreased air movement. On BiPAP) Cardiovascular: Regular Rate, Rhythm, No Edema, Normal Peripheral Pulses Gastrointestinal: Normal Bowel Sounds, Non Tender, Soft Extremity: Non Tender, Pedal Edema Neurologic/Psychiatric: Alert, Other (alert to voice. Attempts to talk. We will follow commands with moving all 4 extremities. Very somnolent.) Skin: normal color, warm/dry Focused Exam Sepsis Stage: Ruled Out Reason for ruling out sepsis: Pt has UTI but does not meed SIRS criteria for sepsis Possible Source: Genitouriary Lactate Level 05/17/18 12:13: Lactic Acid Level 0.73 Time of Focused Exam: 13:10 Respiratory: Lungs Clear, Decreased Breath Sounds, Other (diminished breath sounds. Breathing relaxed on BiPAP) Cardiovascular: Regular Rate, Rhythm, No Murmur, Other (pitting pedal edema bilaterally) Capillary Refill: Less Than 3 Seconds Peripheral Pulses: 2+ Radial Pulses (L) Skin: normal color, warm/dry Lactic Acid Level Procedures/Interventions Date of ETT Placement: Oct 15, 2017 Time of ETT Placement: 1505 Progress/Results/Core Measures Suspected Sepsis Recent Fever Within 48 Hours: No Infection Criteria Present: Suspected New Infection New/Unexplained Altered Menta: No Sepsis Screen: No Definite Risk SIRS Temperature:99.2 Pulse: 82 Respiratory Rate: 18 Laboratory Tests 05/17/18 12:13: White Blood Count 9.6 Blood Pressure 125 /70 Mean: 88 05/17/18 12:13: Lactic Acid Level 0.73 Laboratory Tests 05/17/18 12:13: Creatinine 2.40H, INR Comment 1.2, Platelet Count 392, Total Bilirubin 0.2 Results/Orders Lab Results Laboratory Tests Test 05/17/18 12:05 05/17/18 12:13 05/17/18 12:26 05/17/18 13:07 Range/Units Blood Gas Puncture Site L RADIAL LEFT RADIAL Blood Gas Patient Temperature 99.2 99.2 Arterial Blood pH 7.34 *L 7.37 7.37-7.43 Arterial Blood Partial Pressure CO2 65 H 63 H 35-45 MMHG Arterial Blood Partial Pressure O2 63 L 206 H 79-93 MMHG Arterial Blood HCO3 34 H 35 H 23-27 MMOL/L Arterial Blood Total CO2 36.2 H 36.6 H 21.0-31.0 MMOL/L Arterial Blood Oxygen Saturation 91 L 100 94-100 % Arterial Blood Base Excess 8.6 H 9.3 H -2.5-2.5 MMOL/L James Test YES-POS YES-POS Blood Gas Ventilator Setting NO NO Blood Gas Inspired Oxygen 10 60% BIPAP White Blood Count 9.6 4.3-11.0 10^3/uL Red Blood Count 2.68 L 4.35-5.85 10^6/uL Hemoglobin 7.3 L 11.5-16.0 G/DL Hematocrit 26 L 35-52 % Mean Corpuscular Volume 97 80-99 FL Mean Corpuscular Hemoglobin 27 25-34 PG Mean Corpuscular Hemoglobin Concent 28 L 32-36 G/DL Red Cell Distribution Width 17.6 H 10.0-14.5 % Platelet Count 392 130-400 10^3/uL Mean Platelet Volume 8.8 7.4-10.4 FL Neutrophils (%) (Auto) 71 42-75 % Lymphocytes (%) (Auto) 16 12-44 % Monocytes (%) (Auto) 13 H 0-12 % Eosinophils (%) (Auto) 0 0-10 % Basophils (%) (Auto) 0 0-10 % Neutrophils # (Auto) 6.8 1.8-7.8 X 10^3 Lymphocytes # (Auto) 1.5 1.0-4.0 X 10^3 Monocytes # (Auto) 1.3 H 0.0-1.0 X 10^3 Eosinophils # (Auto) 0.0 0.0-0.3 10^3/uL Basophils # (Auto) 0.0 0.0-0.1 10^3/uL Prothrombin Time 15.3 H 12.2-14.7 SEC INR Comment 1.2 0.8-1.4 Activated Partial Thromboplast Time 35 24-35 SEC Sodium Level 141 135-145 MMOL/L Potassium Level 5.2 H 3.6-5.0 MMOL/L Chloride Level 99 98-107 MMOL/L Carbon Dioxide Level 32 21-32 MMOL/L Anion Gap 10 5-14 MMOL/L Blood Urea Nitrogen 71 H 7-18 MG/DL Creatinine 2.40 H 0.60-1.30 MG/DL Estimat Glomerular Filtration Rate 20 BUN/Creatinine Ratio 30 Glucose Level 124 H 70-105 MG/DL Lactic Acid Level 0.73 0.50-2.00 MMOL/L Calcium Level 10.1 8.5-10.1 MG/DL Corrected Calcium 11.1 H 8.5-10.1 MG/DL Total Bilirubin 0.2 0.1-1.0 MG/DL Aspartate Amino Transf (AST/SGOT) 39 H 5-34 U/L Alanine Aminotransferase (ALT/SGPT) 66 H 0-55 U/L Alkaline Phosphatase 241 H 40-136 U/L Troponin I 0.513 *H <0.028 NG/ML C-Reactive Protein High Sensitivity 12.59 H 0.00-0.50 MG/DL B-Type Natriuretic Peptide 1818.0 H <100.0 PG/ML Total Protein 6.6 6.4-8.2 GM/DL Albumin 2.7 L 3.2-4.5 GM/DL Urine Color YELLOW Urine Clarity SLIGHTLY CLOUDY Urine pH 5 5-9 Urine Specific [place] 1.020 1.016-1.022 Urine Protein 3+ H NEGATIVE Urine Glucose (UA) NEGATIVE NEGATIVE Urine Ketones NEGATIVE NEGATIVE Urine Nitrite NEGATIVE NEGATIVE Urine Bilirubin NEGATIVE NEGATIVE Urine Urobilinogen NORMAL NORMAL MG/DL Urine Leukocyte Esterase 3+ H NEGATIVE Urine RBC (Auto) 1+ H NEGATIVE Urine RBC RARE /HPF Urine WBC >100 H /HPF Urine Crystals NONE /LPF Urine Bacteria MODERATE H /HPF Urine Casts NONE /LPF Urine Mucus NEGATIVE /LPF Urine Culture Indicated CULTURE PENDING Test 05/17/18 17:49 Range/Units Glucometer 82 70-110 MG/DL Micro Results Microbiology 05/17/18 Influenza Types A,B Antigen (CARMELA) - Final, Complete My Orders Orders - YOHAN BENSON MD Arterial Blood Gas (05/17/18 12:11) Bipap (Bilevel) Set Up (05/17/18 12:27) Ekg Tracing (05/17/18 12:35) Monitor-Rhythm Ecg Trace Only (05/17/18 12:35) Arterial Blood Gas (05/17/18 12:39) Influenza A And B Antigens (05/17/18 12:40) Catheter(Urinary) Care .0300, 1500 (05/17/18 12:40) Ceftriaxone For Iv Use (Rocephin For I (05/17/18 13:00) Ns Iv 1000 Ml (Sodium Chloride 0.9%) (05/17/18 13:15) Medications Given in ED Current Medications Medications Dose Ordered Sig/Solomon Route Start Time Stop Time Status Last Admin Dose Admin Ceftriaxone Sodium 1000 mg/ Sodium Chloride 50 ml @ 100 mls/hr ONCE ONCE IV 05/17/18 13:00 05/17/18 13:29 DC 05/17/18 13:14 100 MLS/HR Sodium Chloride 1,000 ml @ 200 mls/hr Q5H ONCE IV 05/17/18 13:15 05/17/18 18:14 DC 05/17/18 13:14 200 MLS/HR Vital Signs/I&O 05/17/18 05/17/18 05/17/18 05/17/18 11:40 11:40 12:06 13:30 Temp 99.2 Pulse 82 76 Resp 18 18 B/P (MAP) 106/55 (72) 125/70 (88) 111/67 (82) Pulse Ox 94 99 98 O2 Delivery NIV/Bilevel NIV Bilevel NIV Bilevel NIV Bilevel O2 Flow Rate 10.00 05/17/18 05/17/18 05/17/18 05/17/18 14:31 15:11 15:11 15:24 Temp 96.9 Pulse 75 74 71 Resp 18 14 B/P (MAP) 126/68 (87) 136/76 (96) Pulse Ox 97 100 100 O2 Delivery NIV Bilevel NIV Bilevel NIV Bilevel O2 Flow Rate 45.00 45.00 05/17/18 05/17/18 05/17/18 05/17/18 15:24 15:25 15:30 15:30 Pulse 70 71 67 67 Resp 22 21 18 18 B/P (MAP) 136/76 (96) 115/66 (82) 136/76 (96) Pulse Ox 100 100 100 100 O2 Delivery NIV Bilevel NIV Bilevel NIV Bilevel O2 Flow Rate 45.00 60.00 40.00 40.00 05/17/18 05/17/18 05/17/18 05/17/18 15:45 16:00 16:15 17:00 Pulse 65 68 68 67 Resp 20 21 19 17 B/P (MAP) 106/60 (75) 108/61 (77) 108/63 (78) 116/69 (85) Pulse Ox 100 100 100 100 O2 Delivery NIV Bilevel NIV Bilevel NIV Bilevel NIV Bilevel O2 Flow Rate 40.00 40.00 40.00 40.00 05/17/18 05/17/18 05/17/18 05/17/18 18:00 18:15 18:36 18:39 Pulse 70 67 67 Resp 15 21 16 B/P (MAP) 124/77 (93) 138/67 (90) 82/48 (59) Pulse Ox 100 100 100 96 O2 Delivery NIV Bilevel NIV Bilevel Nasal Cannula Nasal Cannula O2 Flow Rate 40.00 40.00 5.00 4.00 Capillary Refill : Less Than 3 Seconds Blood Pressure Mean: 88 Progress Note #1: Time: 13:18 Progress Note Because fever was noted by EMS, septic workup was pursued. Urinary tract infection was found. So far, patient does not meet sepsis criteria. She has a reported fever but has no other SIRS criteria. Troponin was mildly elevated. Now the patient is more alert, she is able to give more history. She clearly denies any chest pain in recent days. Patient has been stable on BiPAP and has had progressively improving mental status. She is now conversational and answering questions appropriately area and she is able to recognize people in the room. Influenza screen is pending. Second ABG is pending. Patient complains of right ankle pain which is a chronic problem. Progress Note #2: Time: 13:46 Progress Note Case has been discussed with Dr. Palomo, Dr. Tay, and Dr. aPlomo. Admission orders reviewed. Dr. Lui requested metoprolol tartrate 12.5 mg twice a day and continuation of aspirin and Plavix as long as primary care is agreeable to that. I did make all 3 providers aware of patient's anemia and request for no blood products due to her orthodoxy preferences. Repeat ABG showed improvement in hypoxia and hypercarbia. BiPAP settings have been adjusted to improve tidal volume. ECG Initial ECG Impression Date: May 17, 2018 Initial ECG Impression Time: 12:59 Initial ECG Rate: 74 Initial ECG Rhythm: Normal Sinus Comment Normal sinus rhythm with no overt ST elevation or depression. No abnormal intervals or axis deviation. Possible LVH with secondary report abnormality per automated read. Diagnostic Imaging Diagonstic Imaging: Xray Plain Films/CT/US/NM/MRI: chest Comments Chest x-ray viewed by me and report reviewed. See report below: NAME: CEDRICK ALBERTS [facility] REC#: [id number] PT STATUS: REG ER : 1950 PHYSICIAN: LANCE DUNLAP ADMIT DATE: 05/17/18/ER Draft Date of Exam:05/17/18 CHEST 1 VIEW, AP/PA ONLY INDICATION: Hypoxia. EXAMINATION: Frontal chest obtained at 12:13 p.m. and compared with 04/22/2018. FINDINGS: Heart is mildly enlarged. There is central vascular congestion. There are patchy bilateral basilar infiltrates which appear chronic or unchanged compared to the prior study. There is no pneumothorax or gross pleural fluid. Port-A-Cath is unchanged. IMPRESSION: There are unchanged bilateral basilar infiltrates when compared to the previous study of 04/22/2018. There is no new abnormality. There is cardiomegaly. Dictated on workstation # [id number] Dict: 05/17/18 1224 Trans: 05/17/18 1228 IMS [id number] Interpreted by: ROHIT AMATO MD Diagonstic Imaging: CT Plain Films/CT/US/NM/MRI: head Comments CT head viewed by me and report reviewed. See report below: NAME: CEDRICK ALBERTS [facility] REC#: [id number] PT STATUS: REG ER : 1950 PHYSICIAN: LANCE DUNLAP ADMIT DATE: 05/17/18/ER Draft Date of Exam:05/17/18 CT HEAD WO-R/O STROKE PROCEDURE: CT head wo r/o stroke. TECHNIQUE: Multiple contiguous axial images were obtained through the brain without the use of intravenous contrast. INDICATION: Fever and decreased level of consciousness. COMPARISON: Correlation is made with prior head CT from 08/18/2017. FINDINGS: Ventricles and sulci appear stable when compared with prior exam. Moderate periventricular hypodensity is noted, consistent with changes of chronic microvascular ischemia. No sulcal effacement is seen. There is no midline shift. No acute intra-axial or extra-axial hemorrhage is detected. Cisterns are patent. Visualized paranasal sinuses are clear. There is opacification of the right mastoid air cells suggestive of right mastoid effusion. IMPRESSION: Stable chronic changes when compared with exam from 08/18/2017. No acute intracranial process is detected. Dr. Benson of the emergency department was notified of these results prior to this dictation. Dictated on workstation # [id number] Dict: 05/17/18 1245 Trans: 05/17/18 1253 [id number] Interpreted by: BERNADETTE MCKEON MD Departure Communication (Admissions) Time/Spoke to Admitting Phy: 13:35 Dr. Dewey Tay @ 13:20 Dr. Fernandez @ 13:30 Impression Primary Impression: RESPIRATORY FAILURE, UNSP, UNSP W HYPOXIA OR HYPERCAPNIA Additional Impressions: Altered mental status Qualified Codes: R41.82 - Altered mental status, unspecified Urinary tract infection Qualified Codes: N39.0 - Urinary tract infection, site not specified Hyperkalemia Chronic renal failure Qualified Codes: N18.9 - Chronic kidney disease, unspecified Elevated troponin Disposition: ADMITTED INPATIENT Condition: Improved Admissions Decision to Admit Reason: Admit from ER (General) Decision to Admit/Date: May 17, 2018 Time/Decision to Admit Time: 11:45 Departure-Patient Inst. Referrals: [facility] [place] Primary Care Physician CARLOS LARA (Family) Primary Care Physician YOHAN BENSON MD May 17, 2018 12:30
[2018-05-17 12:34] LABS: INR 1.2 (0.8-1.4); PROTHROMBIN TIME PATIENT 15.3 SEC (12.2-14.7)
[2018-05-17 12:34] LABS: BILIRUBIN,URINE NEGATIVE (NEGATIVE); CLARITY,URINE SLIGHTLY CLOUDY; COLOR,URINE YELLOW; GLUCOSE, URINE (UA) NEGATIVE (NEGATIVE); KETONES,URINE NEGATIVE (NEGATIVE); LEUKOCYTE ESTERASE ,URINE 3+ (NEGATIVE); NITRITE,URINE NEGATIVE (NEGATIVE); PH,URINE 5 (5-9); PROTEIN,URINE 3+ (NEGATIVE); UROBILINOGEN,URINE NORMAL (NORMAL)
[2018-05-17 12:43] LABS: ALBUMIN 2.7 GM/DL (3.2-4.5); BILIRUBIN,TOTAL 0.2 MG/DL (0.1-1.0); CALCIUM 10.1 MG/DL (8.5-10.1); CREATININE SERUM 2.4 MG/DL (0.60-1.30); POTASSIUM 5.2 MMOL/L (3.6-5.0); TOTAL PROTEIN 6.6 GM/DL (6.4-8.2)
[2018-05-17 12:45] LABS: BACTERIA,URINE MODERATE /HPF; RBC,URINE RARE /HPF; WBC,URINE >100 /HPF
--- NOTE | 2018-05-17 12:53 | Diagnostic Imaging Report ---
PROCEDURE: CT head wo r/o stroke. TECHNIQUE: Multiple contiguous axial images were obtained through the brain without the use of intravenous contrast. INDICATION: Fever and decreased level of consciousness. COMPARISON: Correlation is made with prior head CT from 08/18/2017. FINDINGS: Ventricles and sulci appear stable when compared with prior exam. Moderate periventricular hypodensity is noted, consistent with changes of chronic microvascular ischemia. No sulcal effacement is seen. There is no midline shift. No acute intra-axial or extra-axial hemorrhage is detected. Cisterns are patent. Visualized paranasal sinuses are clear. There is opacification of the right mastoid air cells suggestive of right mastoid effusion. IMPRESSION: Stable chronic changes when compared with exam from 08/18/2017. No acute intracranial process is detected. Dr. Benson of the emergency department was notified of these results prior to this dictation. Dictated by: Dictated on workstation # [id number]
[2018-05-17] MEDS ORDERED: cefTRIAXone FOR IV USE 1,000 MG in NS (IVPB) 50 ML IV ONE (13:00)
[2018-05-17] MEDS ORDERED: NS IV 1000 ML 1,000 ML IV ONE (13:15)
[2018-05-17 13:21] LABS: ABG BASE EXCESS 9.3 MMOL/L (-2.5-2.5); ABG OXYGEN SATURATION 100 % (94-100); ABG PCO2 63 MMHG (35-45); ABG PH 7.37 (7.37-7.43); ABG PO2 206 MMHG (79-93); ABG TCO2 36.6 MMOL/L (21.0-31.0)
[2018-05-17 13:22] LABS: ALLENS TEST YES-POS; INSPIRED O2 60% BIPAP; PATIENT TEMP 99.2; VENTILATOR NO
--- NOTE | 2018-05-17 13:32 | NUR ---
FAMILY TO ROOM PATINET MORE ALERT
--- OUTSIDE RECORDS SUMMARY | 2018-05-17 14:00 | XMS REPORT | Clinical Summary ---
Author Author [facility] Organization [facility] Address Unknown Phone Unavailable Care Team Providers Care Reconstructive Surgeon Name Role Phone Tobi Benson MD PCP Source Comments Some departments are not documenting in the electronic medical record. If you do not see the information that you expected, contact Release of Information in the Health Information Management department at [phone] for further assistance in locating additional records.[facility] Allergies Not on File Medications Not [...]
--- NOTE | 2018-05-17 14:01 | NUR ---
[facility] CALLED TO INFORM THAT PATIENT WAS GOING TO BE ADMITTED.
--- NOTE | 2018-05-17 14:14 | NUR ---
UNABLE TO TAKE REPORT AT THIS TIME NURSE COMING IN TO TAKE CARE OF PATIENT.
--- NOTE | 2018-05-17 15:11 | NUR ---
PT ADMITTED TO [facility] VIA BED W/ NURSING STAFF. PT PLACED ON MONITORS AND ORIENTED TO SURROUNDINGS. PT DROWSY, HOWEVER EASILY AWAKENS WHILE ON BIPAP. CALL LIGHT W/IN REACH.IVF INFUSING. WILL CONT TO MONITOR.
--- NOTE | 2018-05-17 15:25 | Pulmonary Consultation ---
History of Present Illness History of Present Illness Date of Consultation 05/17/18 15:20 Time Seen by Provider: 15:20 Date of Admission History of Present Illness 67yo poor historian, CAD, hx of cardiac arrest, CKD, DVT, OHS/HERNAN, and DM presented to ED from [facility] secondary to worsening lethargy/confusion. In the ED she was found to be hypoxic, with sp02 in the 80's on CPAP. Temp per EMS was 101. PT is a Rastafarian and not want any blood products. I am consulted for pulmonary/CC management. Allergies and Home Medications Allergies Coded Allergies: Bacitracin Zinc (Unverified Allergy, Unknown, 07/11/17) Penicillins (Unverified Allergy, Unknown, HAS RECEIVED ROCEPHIN DURING PREVIOUS ADMIT, 07/11/17) bacitracin (Unverified Allergy, Unknown, 07/11/17) colistimethate sodium (Unverified Allergy, Unknown, 07/11/17) gramicidin D (Unverified Allergy, Unknown, 07/11/17) neomycin sulfate (Unverified Allergy, Unknown, 07/11/17) polymyxin B (Unverified Allergy, Unknown, 07/11/17) polymyxin B sulfate (Unverified Allergy, Unknown, 07/11/17) pramoxine HCl (Unverified Allergy, Unknown, 07/11/17) Home Medications Acetaminophen 325 Mg Tablet, 325-650 MG PO Q6H PRN for PAIN-MILD, (Reported) Arginine HCl 1,000 Mg Tablet, 2,000 MG PO TID, (Reported) Aspirin 81 Mg Tablet.dr, 81 MG PO DAILY, (Reported) Brinzolamide/Brimonidine Tart 8 Ml Drops.susp, 1 DROP OU TID, (Reported) Cholecalciferol (Vitamin D3) 50,000 Unit Capsule, 50,000 UNIT PO WEEK, (Reported ) Clonidine HCl 0.3 Mg Tablet, 0.3 MG PO BID, (Reported) Clopidogrel Bisulfate 75 Mg Tablet, 75 MG PO DAILY, (Reported) Ferrous Sulfate 325 Mg Tablet, 325 MG PO BID, (Reported) Gabapentin 100 Mg Capsule, 300 MG PO TID, (Reported) TAKES 3 (100MG) CAPSULES Hydralazine HCl 25 Mg Tablet, 25 MG PO TID, (Reported) Hydrocortisone 30 Gm Cream..g., 30 GM RC BID PRN for HEMORRHOIDS Prescribed by: AC RIVERO on 04/26/18 0958 Insulin Aspart 300 Units/3 Ml Solution, 20 UNITS SC AC, (Reported) Insulin Detemir 100 Unit/1 Ml Insuln.pen, 35 UNIT SQ BID, (Reported) Lactulose 10 Gm/15 Ml Solution, 15 ML PO BID, (Reported) Loratadine 10 Mg Tab.rapdis, 10 MG PO DAILY PRN for ALLERGIES, (Reported) Magnesium Hydroxide 400 Mg/5 Ml Oral.susp, 30 ML PO DAILY PRN for CONSTIPATION- 7TH LINE, (Reported) Magnesium Oxide 250 Mg Tablet, 250 MG PO DAILY, (Reported) Multivitamin 1 Each Tablet, 1 TAB PO DAILY, (Reported) Nystatin 1 Each Powder.ea., TOP BID, (Reported) [place]-3/Dha/Epa/Fish Oil 1 Each Capsule, 1,000 MG PO TID, (Reported) Phenazopyridine HCl 200 Mg Tablet, 200 MG PO Q8H PRN for BLADDER SPASMS, ( Reported) Rosuvastatin Calcium 20 Mg Tablet, 20 MG PO HS, (Reported) Torsemide 20 Mg Tablet, 20 MG PO BID, (Reported) Turmeric/Turmeric Root Extract 1 Each Capsule, 500 MG PO BID, (Reported) Past [id number]-[id number] Hx Past Med/Social Hx: Reviewed and Corrections made Patient Social History Alcohol Use: Denies Use Recreational Drug Use: No Type Used: Cigarettes 2nd Hand Smoke Exposure: No Recent Foreign Travel: No Contact w/Someone Who Travel: No Recent Infectious Disease Expo: No Recent Hopitalizations: Yes (DC'D 04/22/18) Immunizations Up To Date Tetanus Booster (TDap): Unknown PED Vaccines UTD: No Date of Pneumonia Vaccine: Feb 20, 2018 Date of Influenza Vaccine: Mar 09, 2018 Seasonal Allergies Seasonal Allergies: Yes Past Medical History Surgeries: Yes Adenoidectomy, Cardiac, Coronary Stent, Eye Surgery, Gallbladder, Hysterectomy, Tonsillectomy, Vascular Surgery (IVC filter) Respiratory: Yes (WEARS O2, SLEEP APNEA; OBESITY HYPOVENTILATION) Sleep Apnea, COPD Currently Using CPAP: No Currently Using BIPAP: Yes Cardiac: Yes Chronic Edema/Swelling, Coronary Artery Disease, Deep Vein Thrombosis, High Cholesterol, Hypertension, Peripheral Vascular (carotid stenosis), Valvular Heart Disease Neurological: Yes (VENA CAVA FILTER IN PLACE; MULTIPLE TIA'S ; POLYNEUROPATHY) Neuropathy, Stroke, TIA Reproductive Disorders: No Female Reproductive Disorders: Denies [employer] History: Hysterectomy, Menopausal Sexually Transmitted Disease: No HIV/AIDS: No Genitourinary: Yes (2 abscessed kidneys per patient) Bladder Infection, Renal Failure, UTI-Chronic Gastrointestinal: Yes Gastrointestinal Bleed, Chronic Diarrhea, Gall Bladder Disease Musculoskeletal: Yes Degenerate Disk Disease, Arthritis, Chronic Back Pain, Fractures Endocrine: Yes (MORBID OBESITY) Diabetes, Insulin dep HEENT: Yes (DIABETIC RETINOPATHY) Cataract Loss of Vision: Denies Hearing Impairment: Denies Cancer: No Psychosocial: Yes Anxiety, Depression Integumentary: No Blood Disorders: Yes (Chronic ANEMIA- epo shots) Adverse Reaction/Blood Tranf: No (N/A) Family Medical History Reviewed Nursing Family Hx Alzheimer's disease 19 MOTHER Cardiovascular disease Cataract 19 MOTHER Cataracts Congestive heart failure 19 FATHER Dementia 19 MOTHER Dementia 19 MOTHER Diabetes mellitus Family history: Allergy 19 FATHER 19 MOTHER Family history: Alzheimer's disease 19 MOTHER Family history: Cardiovascular disease 19 MOTHER Family history: Diabetes mellitus G8 BROTHER G8 BROTHER G8 SISTER Family history: Hypertension 19 FATHER Hearing loss G8 BROTHER Heart disease 19 FATHER G8 BROTHER G8 BROTHER G8 SISTER Hypertension 19 FATHER 19 MOTHER G8 BROTHER Infertile 19 FATHER 19 MOTHER G8 BROTHER G8 BROTHER G8 SISTER Myocardial infarction 19 FATHER Myocardial infarction 19 FATHER Psychotic disorder 19 FATHER Severe allergy G8 BROTHER G8 BROTHER Stroke 19 FATHER No Family History of: AIDS Abdominal aortic aneurysm Abdominal aortic aneurysm Gigi's disease Gigi's disease Alcoholism Alcoholism Aphasia Aphasia Arthritis Asthma Cancer Cancer of colon Cancer of mouth Chest pain Colon cancer Completed stroke Congenital disease Congenital heart disease Congenital heart disease Coronary thrombosis Cystic fibrosis Cystic fibrosis Dysphagia Family history: Arthritis Family history: Asthma Family history: Breast disease Family history: Coronary thrombosis Family history: Gastrointestinal disease Family history: Glaucoma Family history: Osteoporosis Family history: Thyroid disorder Fibrocystic disease of breast Gastroenteritis Glaucoma Headache Headache disorder Hereditary disease History of - anemia History of - disorder History of - respiratory disease History of drug abuse Human immunodeficiency virus (HIV) seropositivity Hypercholesterolemia Hypercholesterolemia Kidney disease Malignant neoplasm of lung Neoplasm Not obtainable due to adoption Osteoporosis Parkinson's disease Parkinson's disease Prostate cancer Psychosocial problem Seizure disorder Seizure disorder Thyroid disease Tuberculosis Tuberculosis Visual disorder Visual impairment Heart Disease, Diabetes, Hypertension Sepsis Event Evaluation Height, Weight, BMI Height: 5'5.00" Weight: 346lbs. 9.4oz. [id number]; 55.5 BMI Method:Stated Exam Exam Vital Signs Date Time Temp Pulse Resp B/P (MAP) Pulse Ox O2 Delivery O2 Flow Rate FiO2 05/17/18 14:31 75 18 126/68 (87) 97 NIV Bilevel 05/17/18 13:30 76 18 111/67 (82) 98 NIV Bilevel 05/17/18 12:06 82 18 125/70 (88) 99 NIV Bilevel 05/17/18 11:40 NIV Bilevel 10.00 05/17/18 11:40 99.2 106/55 (72) 94 NIV/Bilevel Height & Weight Height: 5'5.00" Weight: 346lbs. 9.4oz. [id number]; 55.5 BMI Method:Stated General Appearance: No Apparent Distress, WD/WN, Obese HEENT: PERRL/EOMI, Normal ENT Inspection, Other (Mucus membranes dry) Neck: Normal Inspection Respiratory: Lungs Clear, Decreased Breath Sounds, Other (diminished breath sounds. Breathing relaxed on BiPAP) Cardiovascular: Regular Rate, Rhythm, No Murmur, Other (pitting pedal edema bilaterally) Capillary Refill: Less Than 3 Seconds Peripheral Pulses: 2+ Radial Pulses (L) Extremity: Non Tender, Pedal Edema Neurologic/Psychiatric: Alert, Other (alert to voice. Attempts to talk. We will follow commands with moving all 4 extremities. Very somnolent.) Results Lab Laboratory Tests 05/17/18 12:13 Assessment/Plan Assessment/Plan Acute on chronic respiratory failure -BIPAP and oxygen -SVNs UTI -bryant culture -Rocephin acute on chronic renal failure -IVF, and monitor Hyperkalemia -Monitor CORAZON SERVIN DO May 17, 2018 15:25
--- NOTE | 2018-05-17 15:33 | NUR ---
PATINT RESPONDS TO COMMANDS ON ADMIT TO ICU.
[2018-05-17] MEDS: NS IV 1000 ML 1,000 ML IV SCH ×2 (15:41→18:31)
[2018-05-17] MEDS ORDERED: CATHETER FLUSH 10 ML SYR IV PRN (16:30)
[2018-05-17] MEDS: inSUlin ASPART (NovoLOG) 1 UNIT/0.01 ML (CHARGE PER UNIT) SC SCH (17:49)
--- NOTE | 2018-05-17 17:54 | Consultation-Cardiology ---
HPI-Cardiology Cardiology Consultation: Date of Consultation 05/17/18 Time Seen by a Provider: 17:50 Date of Admission Attending Physician Iris Palomo MD Admitting Physician [facility] Consulting Physician TRELL GERONIMO MD, MA, FACP, FACC, FSCAI, CCDS HPI: Chief Complaint: Reason for consultation: Elevated troponin HPI: 67 yo woman found with decreased responsiveness and hypoxia at her NH and brought to ER. Has been treated with BiPAP and supple oxygen here. Was confused and verbally unresponsive at presentation. Now seems more responsive. Does not recall any details. Denies cp or palp or syncope. Feels somewhat short of breath. Has gen weakness Review of Systems-Cardiology Review of Systems Constitutional: malaise, tiredness; No weight loss, No weight gain Eyes: No vision change Ears/Nose/Throat: other (not able to provide details) Respiratory: As described under HPI Cardiovascular: As described under HPI Gastrointestinal: No diarrhea, No other Genitourinary: No dysuria : No Musculoskeletal: back pain Skin: No rash, No ulcerations Psychiatric/Neurological: As described under HPI; No focal weakness, No syncope Hematologic: No bleeding abnormalities [id number]-Ylxogq-Hxppft Hx Patient Social History Alcohol Use: Denies Use Recreational Drug Use: No Smoking Status: Unknown if Ever Smoked Type Used: Cigarettes 2nd Hand Smoke Exposure: No Hospitalization with Isolation: Denies Immunizations Up To Date Tetanus Booster (TDap): Unknown Date of Pneumonia Vaccine: Feb 20, 2018 Date of Influenza Vaccine: Mar 09, 2018 Past Medical History PMH As described under Assessment. Family Medical History Family History: Alzheimer's disease 19 MOTHER Cardiovascular disease Cataract 19 MOTHER Cataracts Congestive heart failure 19 FATHER Dementia 19 MOTHER Dementia 19 MOTHER Diabetes mellitus Family history: Allergy 19 FATHER 19 MOTHER Family history: Alzheimer's disease 19 MOTHER Family history: Cardiovascular disease 19 MOTHER Family history: Diabetes mellitus G8 BROTHER G8 BROTHER G8 SISTER Family history: Hypertension 19 FATHER Hearing loss G8 BROTHER Heart disease 19 FATHER G8 BROTHER G8 BROTHER G8 SISTER Hypertension 19 FATHER 19 MOTHER G8 BROTHER Infertile 19 FATHER 19 MOTHER G8 BROTHER G8 BROTHER G8 SISTER Myocardial infarction 19 FATHER Myocardial infarction 19 FATHER Psychotic disorder 19 FATHER Severe allergy G8 BROTHER G8 BROTHER Stroke 19 FATHER No Family History of: AIDS Abdominal aortic aneurysm Abdominal aortic aneurysm Kay's disease Gigi's disease Alcoholism Alcoholism Aphasia Aphasia Arthritis Asthma Cancer Cancer of colon Cancer of mouth Chest pain Colon cancer Completed stroke Congenital disease Congenital heart disease Congenital heart disease Coronary thrombosis Cystic fibrosis Cystic fibrosis Dysphagia Family history: Arthritis Family history: Asthma Family history: Breast disease Family history: Coronary thrombosis Family history: Gastrointestinal disease Family history: Glaucoma Family history: Osteoporosis Family history: Thyroid disorder Fibrocystic disease of breast Gastroenteritis Glaucoma Headache Headache disorder Hereditary disease History of - anemia History of - disorder History of - respiratory disease History of drug abuse Human immunodeficiency virus (HIV) seropositivity Hypercholesterolemia Hypercholesterolemia Kidney disease Malignant neoplasm of lung Neoplasm Not obtainable due to adoption Osteoporosis Parkinson's disease Parkinson's disease Prostate cancer Psychosocial problem Seizure disorder Seizure disorder Thyroid disease Tuberculosis Tuberculosis Visual disorder Visual impairment Allergies and Home Medications Allergies Coded Allergies: Bacitracin Zinc (Unverified Allergy, Unknown, 07/11/17) Penicillins (Unverified Allergy, Unknown, HAS RECEIVED ROCEPHIN DURING PREVIOUS ADMIT, 07/11/17) bacitracin (Unverified Allergy, Unknown, 07/11/17) colistimethate sodium (Unverified Allergy, Unknown, 07/11/17) gramicidin D (Unverified Allergy, Unknown, 07/11/17) neomycin sulfate (Unverified Allergy, Unknown, 07/11/17) polymyxin B (Unverified Allergy, Unknown, 07/11/17) polymyxin B sulfate (Unverified Allergy, Unknown, 07/11/17) pramoxine HCl (Unverified Allergy, Unknown, 07/11/17) Home Medications Acetaminophen 325 Mg Tablet, 325-650 MG PO Q6H PRN for PAIN-MILD, (Reported) Arginine HCl 1,000 Mg Tablet, 2,000 MG PO TID, (Reported) Aspirin 81 Mg Tablet.dr, 81 MG PO DAILY, (Reported) Brinzolamide/Brimonidine Tart 8 Ml Drops.susp, 1 DROP OU TID, (Reported) Cholecalciferol (Vitamin D3) 50,000 Unit Capsule, 50,000 UNIT PO WEEK, (Reported ) Clonidine HCl 0.3 Mg Tablet, 0.3 MG PO BID, (Reported) Clopidogrel Bisulfate 75 Mg Tablet, 75 MG PO DAILY, (Reported) Ferrous Sulfate 325 Mg Tablet, 325 MG PO BID, (Reported) Gabapentin 100 Mg Capsule, 300 MG PO TID, (Reported) TAKES 3 (100MG) CAPSULES Hydralazine HCl 25 Mg Tablet, 25 MG PO TID, (Reported) Hydrocortisone 30 Gm Cream..g., 30 GM RC BID PRN for HEMORRHOIDS Prescribed by: AC RIVERO on 04/26/18 0958 Insulin Aspart 300 Units/3 Ml Solution, 20 UNITS SC AC, (Reported) Insulin Detemir 100 Unit/1 Ml Insuln.pen, 35 UNIT SQ BID, (Reported) Lactulose 10 Gm/15 Ml Solution, 15 ML PO BID, (Reported) Loratadine 10 Mg Tab.rapdis, 10 MG PO DAILY PRN for ALLERGIES, (Reported) Magnesium Hydroxide 400 Mg/5 Ml Oral.susp, 30 ML PO DAILY PRN for CONSTIPATION- 7TH LINE, (Reported) Magnesium Oxide 250 Mg Tablet, 250 MG PO DAILY, (Reported) Multivitamin 1 Each Tablet, 1 TAB PO DAILY, (Reported) Nystatin 1 Each Powder.ea., TOP BID, (Reported) [place]-3/Dha/Epa/Fish Oil 1 Each Capsule, 1,000 MG PO TID, (Reported) Phenazopyridine HCl 200 Mg Tablet, 200 MG PO Q8H PRN for BLADDER SPASMS, ( Reported) Rosuvastatin Calcium 20 Mg Tablet, 20 MG PO HS, (Reported) Torsemide 20 Mg Tablet, 20 MG PO BID, (Reported) Turmeric/Turmeric Root Extract 1 Each Capsule, 500 MG PO BID, (Reported) Patient Home Medication List Home Medication List Reviewed: Yes Physical Exam-Cardiology Physical Exam Vital Signs/I&O 05/17/18 05/17/18 05/17/18 05/17/18 11:40 11:40 12:06 13:30 Temp 99.2 Pulse 82 76 Resp 18 18 B/P (MAP) 106/55 (72) 125/70 (88) 111/67 (82) Pulse Ox 94 99 98 O2 Delivery NIV/Bilevel NIV Bilevel NIV Bilevel NIV Bilevel O2 Flow Rate 10.00 05/17/18 05/17/18 05/17/18 05/17/18 14:31 15:11 15:11 15:24 Temp 96.9 Pulse 75 74 71 Resp 18 14 B/P (MAP) 126/68 (87) 136/76 (96) Pulse Ox 97 100 100 O2 Delivery NIV Bilevel NIV Bilevel NIV Bilevel O2 Flow Rate 45.00 45.00 05/17/18 05/17/18 05/17/18 05/17/18 15:24 15:25 15:30 15:30 Pulse 70 71 67 67 Resp 22 21 18 18 B/P (MAP) 136/76 (96) 115/66 (82) 136/76 (96) Pulse Ox 100 100 100 100 O2 Delivery NIV Bilevel NIV Bilevel NIV Bilevel O2 Flow Rate 45.00 60.00 40.00 40.00 05/17/18 05/17/18 05/17/18 05/17/18 15:45 16:00 16:15 17:00 Pulse 65 68 68 67 Resp 20 21 19 17 B/P (MAP) 106/60 (75) 108/61 (77) 108/63 (78) 116/69 (85) Pulse Ox 100 100 100 100 O2 Delivery NIV Bilevel NIV Bilevel NIV Bilevel NIV Bilevel O2 Flow Rate 40.00 40.00 40.00 40.00 05/17/18 05/17/18 05/17/18 05/17/18 18:00 18:15 18:36 18:39 Pulse 70 67 67 Resp 15 21 16 B/P (MAP) 124/77 (93) 138/67 (90) 82/48 (59) Pulse Ox 100 100 100 96 O2 Delivery NIV Bilevel NIV Bilevel Nasal Cannula Nasal Cannula O2 Flow Rate 40.00 40.00 5.00 4.00 Capillary Refill : Less Than 3 Seconds Constitutional: well-developed, well-nourished, other (sleepy but awakens, seems oriented to time, person, and place) HEENT: PERRL; No xanthelasmas are seen Neck: carotid pulses are 2 + bilaterally, with good upstrokes Respiratory: other (Air entry diminished at the bases; prolonged exp phase) Cardiovascular: regular rate-rhythm, S1 and S2, systolic murmur (soft ALEC at card base) Gastrointestinal: No tender, No guarding, No rebound; audible bowel sounds Extremities: other (mild bilat leg swelling); No clubbing, No cyanosis Neurologic/Psychiatric: other (seems to able to move all limbs equally; see above for mental state exam) Skin: normal color, warm/dry; No rash on exposed areas, No ulcerations on exposed areas Data Review Labs Laboratory Tests 05/17/18 12:05: Blood Gas Puncture Site L RADIAL, Blood Gas Patient Temperature 99.2, Arterial Blood pH 7.34*L, Arterial Blood Partial Pressure CO2 65H, Arterial Blood Partial Pressure O2 63L, Arterial Blood HCO3 34H, Arterial Blood Total CO2 36.2H , Arterial Blood Oxygen Saturation 91L, Arterial Blood Base Excess 8.6H, James Test YES-POS, Blood Gas Ventilator Setting NO, Blood Gas Inspired Oxygen 10 05/17/18 12:13: White Blood Count 9.6, Red Blood Count 2.68L, Hemoglobin 7.3L, Hematocrit 26L, Mean Corpuscular Volume 97, Mean Corpuscular Hemoglobin 27, Mean Corpuscular Hemoglobin Concent 28L, Red Cell Distribution Width 17.6H, Platelet Count 392, Mean Platelet Volume 8.8, Neutrophils (%) (Auto) 71, Lymphocytes (%) (Auto) 16, Monocytes (%) (Auto) 13H, Eosinophils (%) (Auto) 0, Basophils (%) (Auto) 0, Neutrophils # (Auto) 6.8, Lymphocytes # (Auto) 1.5, Monocytes # (Auto) 1.3H, Eosinophils # (Auto) 0.0, Basophils # (Auto) 0.0, Prothrombin Time 15.3H, INR Comment 1.2, Activated Partial Thromboplast Time 35, Sodium Level 141, Potassium Level 5.2H, Chloride Level 99, Carbon Dioxide Level 32, Anion Gap 10, Blood Urea Nitrogen 71H, Creatinine 2.40H, Estimat Glomerular Filtration Rate 20 , BUN/Creatinine Ratio 30, Glucose Level 124H, Lactic Acid Level 0.73, Calcium Level 10.1, Corrected Calcium 11.1H, Total Bilirubin 0.2, Aspartate Amino Transf (AST/SGOT) 39H, Alanine Aminotransferase (ALT/SGPT) 66H, Alkaline Phosphatase 241H, Troponin I 0.513*H, C-Reactive Protein High Sensitivity 12.59H , B-Type Natriuretic Peptide 1818.0H, Total Protein 6.6, Albumin 2.7L 05/17/18 12:26: Urine Color YELLOW, Urine Clarity SLIGHTLY CLOUDY, Urine pH 5, Urine Specific Floral 1.020, Urine Protein 3+H, Urine Glucose (UA) NEGATIVE, Urine Ketones NEGATIVE, Urine Nitrite NEGATIVE, Urine Bilirubin NEGATIVE, Urine Urobilinogen NORMAL, Urine Leukocyte Esterase 3+H, Urine RBC (Auto) 1+H, Urine RBC RARE, Urine WBC >100H, Urine Crystals NONE, Urine Bacteria MODERATEH, Urine Casts NONE , Urine Mucus NEGATIVE, Urine Culture Indicated CULTURE PENDING 05/17/18 13:07: Blood Gas Puncture Site LEFT RADIAL, Blood Gas Patient Temperature 99.2, Arterial Blood pH 7.37, Arterial Blood Partial Pressure CO2 63H, Arterial Blood Partial Pressure O2 206H, Arterial Blood HCO3 35H, Arterial Blood Total CO2 36.6H, Arterial Blood Oxygen Saturation 100, Arterial Blood Base Excess 9.3H, James Test YES-POS, Blood Gas Ventilator Setting NO, Blood Gas Inspired Oxygen 60% BIPAP 05/17/18 17:49: Glucometer 82 Microbiology 05/17/18 Influenza Types A,B Antigen (CARMELA) - Final, Complete Laboratory Tests 05/17/18 12:13 A/P-Cardiology Assessment/Admission Diagnosis Ac resp failure Ac mental status changes, likely due to ac resp failure Elevated troponin likely to hypoxia due to ac resp failure and due to ac on ch renal failure H/o bradycardic cardiac arrest in October 2017, likely related to metabolic and electrolyte abnormalities Acute on chronic renal failure associated with mild hyperkalemia H/o severe hypertension. Hospitalization with hypertensive encephalopathy in late September 2017 (managed by Dr Rivero) Coronary artery disease with a history of coronary stenting in early [address] Hairstno. The patient is stated to have received Promus 2.25 x 32 mm stent in the distal left anterior descending and Promus 2.25 x 28 mm stent in the left circumflex. These stents were patent on last cath of 03/25/14, but she underwent additional stenting: distal LAD with MiniVision 2x12 and proximal first diagonal with Promus Mike 2.5x12. The RCA was dominant and with mild plaques at the time of last cath of 03/25/14. LVEDP was mildly elevated. Last MPI of 03/22/16 showed no evidence of myocard ischemia or infarction, normal wall motion and LVEF 65%. Echo of 03/21/16 was a technically difficult study, but showed LVEF 65%, trivial to mild MR & TR, mild AoV sclerosis w/o stenosis, PASP WNL H/o osteomyelitis of the R great toe managed by Dr Alex of the [facility] in [place], [place] Normal ABIs on 02/24/16 Carotid arterial disease with history of right carotid endarterectomy. Last carotid ultrasound of 07/24/17 showed 60-79% R ICA and less than 40% L ICA stenoses Maturity onset diabetes mellitus. Hyperlipidemia being treated with atorvastatin. Chronic kidney disease, stage IV, being managed by Dr Sarmad Varghese. Chronic anemia, likely related to chronic kidney disease, managed by Dr Augustin. H/o urinary tract infections, being managed by her pcp History of chronic, recurrent deep venous thrombosis. History of inferior vena cava placement by Dr. Duvall in September 2011. History of left venous port placement by Dr. Duvall. The patient is a Jehov[employer]s Witness and does not wish to ever receive any blood transfusions and is not, therefore, considered an ideal candidate for oral anticoagulation Chronic leg swelling and stasis dermatitis, likely related to venous insufficiency and calcium channel donna therapy, unchanged Obesity with hypoventilation syndrome; BMI 52.5 Sleep apnea syndrome, being managed by Dr Fernandez Discussion and Recomendations * Complex management due to multiple comorbidities * Continue previous card regimen * Monitor labs Clinical Quality Measures DVT/VTE Risk/Contraindication: Risk Factor Score Per Nursin RFS Level Per Nursing on Admit: 4+=Very High TRELL GERONIMO MD FACP FAC CCDS May 17, 2018 17:54
--- NOTE | 2018-05-17 18:20 | NUR ---
DR GERONIMO HERE TO SEE PT, NEW ORDERS RECEIVED TO D/C ALL REMAINING TROPONIN ORDERS.
--- NOTE | 2018-05-17 18:30 | NUR ---
PT NOW A&O AND REQUESTING DINNER TRAY. PT SAT UP IN BED, BIPAP REMOVED AND PLACED ON 5L O2 NC. O2 SATS IN HIGH 90'S WHILE ON NC. PT HAS NO C/O AT THIS TIME. WILL CONT TO MONITOR PT.
[2018-05-17] MEDS: RT-ALBUTEROL/IPRATROPIUM 3 ML (DUONEB) VIAL INH SCH ×2 (18:39→22:31)
[2018-05-17] MEDS: meTOprolol TARTRATE 25 MG (LOPRESSOR) TABLET PO SCH (20:17)
[2018-05-17] MEDS ORDERED: RT-ALBUTEROL/IPRATROPIUM 3 ML (DUONEB) VIAL INH PRN (21:45)
[2018-05-18] VITALS (17 sets, daily range): BP systolic 97–156; BP diastolic 43–96
[2018-05-18] MEDS: NS IV 1000 ML 1,000 ML IV SCH (02:50)
[2018-05-18] MEDS: RT-ALBUTEROL/IPRATROPIUM 3 ML (DUONEB) VIAL INH SCH ×6 (03:31→21:15)
[2018-05-18 03:38] LABS: BASOPHILS % (AUTO) 0 % (0-10); EOSINOPHILS # (AUTO) 0.1 10^3/uL (0.0-0.3); EOSINOPHILS % (AUTO) 1 % (0-10); HEMATOCRIT 26 % (35-52); HEMOGLOBIN 7.3 G/DL (11.5-16.0); LYMPHOCYTES % (AUTO) 10 % (12-44); MEAN CORPUSCULAR HEMOGLOBIN 27 PG (25-34); MEAN CORPUSCULAR HGB CONC 28 G/DL (32-36); MEAN CORPUSCULAR VOLUME 98 FL (80-99); MEAN PLATELET VOLUME 8.5 FL (7.4-10.4); MONOCYTES % (AUTO) 10 % (0-12); NEUTROPHILS % (AUTO) 79 % (42-75); PLATELET COUNT 344 10^3/uL (130-400); RED BLOOD COUNT 2.69 10^6/uL (4.35-5.85); RED CELL DISTRIBUTION WIDTH 17.3 % (10.0-14.5); WHITE BLOOD COUNT 10.1 10^3/uL (4.3-11.0)
[2018-05-18 04:03] LABS: ALBUMIN 2.7 GM/DL (3.2-4.5); BILIRUBIN,TOTAL 0.2 MG/DL (0.1-1.0); CALCIUM 9.8 MG/DL (8.5-10.1); CREATININE SERUM 2.19 MG/DL (0.60-1.30); MAGNESIUM 2.4 MG/DL (1.8-2.4); PHOSPHORUS 4.4 MG/DL (2.3-4.7); POTASSIUM 4.8 MMOL/L (3.6-5.0); TOTAL PROTEIN 6.5 GM/DL (6.4-8.2)
[2018-05-18 04:20] LABS: ABG BASE EXCESS 6.7 MMOL/L (-2.5-2.5); ABG OXYGEN SATURATION 96 % (94-100); ABG PCO2 53 MMHG (35-45); ABG PH 7.39 (7.37-7.43); ABG PO2 72 MMHG (79-93); ABG TCO2 33.2 MMOL/L (21.0-31.0)
[2018-05-18 04:21] LABS: ALLENS TEST YES-POS; INSPIRED O2 35%; PATIENT TEMP 98.7; VENTILATOR NO
--- NOTE | 2018-05-18 04:44 | Pulmonary Progress Note ---
MARENMOISÉS STUDENT 05/18/18 0444: Subjective Date Seen by a Provider: May 18, 2018 Time Seen by a Provider: 04:38 Subjective/Events-last exam Today, This 67-year-old woman presents to the emergency room via EMS from the retirement where she was found to have severely decreased responsiveness. She was noted to be hypoxic with an oxygen saturation in the mid 80s on CPAP. EMS reports fingerstick blood sugar was 188. Temperature for EMS was 101. Patient has severe comorbidities and an extensive past medical history. She has coronary artery disease with stenting, history of cardiac arrest, chronic kidney disease, chronic anemia, severe hypertension, history of DVT, history of obesity with hypoventilation and sleep apnea, and diabetes. She is also Jehovah 's Witness and does not want any blood products. She has a full CODE STATUS ordered on her retirement MAR. Patient does not yes when I ask her whether or not she would wish to be intubated if CPAP is not sufficient for her. She is responsive to voice but is not really speaking comprehensibly with the CPAP mask on. She does follow commands by gripping with each hand. She will slightly move both feet as well. Patient has limited use of her legs at baseline. Sepsis Event Evaluation Height, Weight, BMI Height: 5'5.00" Weight: 315lbs. 8.0oz. 143.578528dy; 52.5 BMI Method:Stated Focused Exam Lactate Level 05/17/18 12:13: Lactic Acid Level 0.73 Time of Focused Exam: 13:10 Exam Exam Vital Signs Date Time Temp Pulse Resp B/P (MAP) Pulse Ox O2 Delivery O2 Flow Rate FiO2 05/18/18 04:23 NIV Bilevel 05/18/18 04:23 98.7 05/18/18 03:31 71 16 97 35.00 05/18/18 03:00 79 13 144/87 (106) 98 NIV Bilevel 35.00 05/18/18 02:00 70 15 135/69 (91) 100 NIV Bilevel 35.00 05/18/18 01:00 69 05/18/18 01:00 69 23 111/83 (92) 97 NIV Bilevel 35.00 05/18/18 00:46 70 20 100 35.00 05/18/18 00:10 97.1 05/18/18 00:10 NIV Bilevel 1/11/19 00:00 64 17 132/65 (87) 100 NIV Bilevel 35.00 05/17/18 23:00 68 19 124/68 (86) 100 NIV Bilevel 35.00 05/17/18 22:32 68 12 95 35.00 05/17/18 22:00 74 19 123/66 (85) 97 NIV Bilevel 35.00 05/17/18 21:00 79 17 137/72 (93) 96 NIV Bilevel 35.00 05/17/18 20:39 80 19 100 NIV Bilevel 35.00 05/17/18 20:39 80 15 100 40.00 05/17/18 20:17 95.9 79 19 146/73 (97) 98 NIV Bilevel 05/17/18 20:15 NIV Bilevel 05/17/18 20:12 81 23 98 NIV Bilevel 40.00 05/17/18 20:00 80 16 146/73 (97) 96 Nasal Cannula 5.00 05/17/18 19:00 81 05/17/18 19:00 81 13 128/79 (95) 97 Nasal Cannula 5.00 05/17/18 18:39 96 Nasal Cannula 4.00 05/17/18 18:38 72 96 36 05/17/18 18:36 67 16 82/48 (59) 100 Nasal Cannula 5.00 05/17/18 18:15 67 21 138/67 (90) 100 NIV Bilevel 40.00 05/17/18 18:00 70 15 124/77 (93) 100 NIV Bilevel 40.00 05/17/18 17:00 67 17 116/69 (85) 100 NIV Bilevel 40.00 05/17/18 16:15 68 19 108/63 (78) 100 NIV Bilevel 40.00 05/17/18 16:00 68 21 108/61 (77) 100 NIV Bilevel 40.00 05/17/18 15:45 65 20 106/60 (75) 100 NIV Bilevel 40.00 05/17/18 15:30 67 18 136/76 (96) 100 NIV Bilevel 40.00 05/17/18 15:30 67 18 115/66 (82) 100 NIV Bilevel 40.00 05/17/18 15:25 71 21 136/76 (96) 100 NIV Bilevel 60.00 05/17/18 15:24 70 22 100 45.00 05/17/18 15:24 71 05/17/18 15:11 100 NIV Bilevel 45.00 05/17/18 15:11 96.9 74 14 136/76 (96) 100 NIV Bilevel 45.00 05/17/18 14:31 75 18 126/68 (87) 97 NIV Bilevel 05/17/18 13:30 76 18 111/67 (82) 98 NIV Bilevel 05/17/18 12:06 82 18 125/70 (88) 99 NIV Bilevel 05/17/18 11:40 NIV Bilevel 10.00 05/17/18 11:40 99.2 106/55 (72) 94 NIV/Bilevel I & O 05/18/18 07:00 Intake Total 2200 ml Output Total 850 ml Balance 1350 ml Height & Weight Height: 5'5.00" Weight: 315lbs. 8.0oz. 143.784256qu; 52.5 BMI Method:Stated General Appearance: No Apparent Distress, WD/WN, Obese HEENT: PERRL/EOMI, Normal ENT Inspection, Other (Mucus membranes dry) Neck: Normal Inspection Respiratory: Lungs Clear, Decreased Breath Sounds, Other (diminished breath sounds. Breathing relaxed on BiPAP) Cardiovascular: Regular Rate, Rhythm, No Murmur, Other (pitting pedal edema bilaterally) Capillary Refill: Less Than 3 Seconds Peripheral Pulses: 2+ Radial Pulses (L) Extremity: Non Tender, Pedal Edema Neurologic/Psychiatric: Alert, Other (alert to voice. Attempts to talk. We will follow commands with moving all 4 extremities. Very somnolent.) Results Lab Laboratory Tests 05/17/18 12:13 05/18/18 03:29 Assessment/Plan Assessment/Plan Acute on chronic respiratory failure -BIPAP and oxygen -SVNs UTI -bryant culture -Rocephin Mental status changes - Ddx: UTI vs. respiratory failure -Monitor acute on chronic renal failure -Stage IV -IVF, and monitor Hyperkalemia -Monitor Elevated troponin - Cardiology consulted: "likely to hypoxia due to ac resp failure and due to ac on ch renal failure" -H/o bradycardic cardiac arrest in October 2017 Hypertension - Hypertensive encephalopathy in September 2017 Osteomyelitis to Rt toe - managed out patient in [place] Hyperlipidemia - Atorvastatin Chronic anemia -Sees Dr. Augustin, d/t CKD Sleep apnea -CPAP The patient is a Jehovahs Witness and does not wish to ever receive any blood transfusions and is not, therefore, considered an ideal candidate for oral anticoagulation CORAZON SERVIN DO 05/18/18 0530: Subjective Time Seen by a Provider: 05:25 Subjective/Events-last exam PT is more alert today. C/o reproducible CP secondary to sternal rub. Currently off BiPAP on NC. Exam Exam General Appearance: No Apparent Distress, WD/WN, Obese HEENT: PERRL/EOMI, Normal ENT Inspection Neck: Normal Inspection Respiratory: Lungs Clear, Decreased Breath Sounds Cardiovascular: Regular Rate, Rhythm, No Murmur Peripheral Pulses: 2+ Radial Pulses (L) Extremity: Non Tender, No Pedal Edema, Pedal Edema Neurologic/Psychiatric: Alert Assessment/Plan Assessment/Plan Acute on chronic respiratory failure -PRN BIPAP and oxygen -SVNs UTI -bryant culture -Rocephin Anemia -restart Fe, and folate. CKD 4 -IVF, and monitor Hyperkalemia - resolved -Monitor Elevated troponin secondary to hypoxia, Anemia -Cardiology following Transfer pt to 4th floor with tele. - MOISÉS ENGEL STUDENT May 18, 2018 04:44 CORAZON SERVIN DO May 18, 2018 05:30
[2018-05-18] MEDS: inSUlin ASPART (NovoLOG) 1 UNIT/0.01 ML (CHARGE PER UNIT) SC SCH ×4 (05:14→17:30)
[2018-05-18] MEDS ORDERED: FOLIC ACID 1 MG TAB PO ONE (05:45)
[2018-05-18] MEDS ORDERED: MAGNESIUM 1 GM/100 ML IVPB 100 ML IV SCH (06:00)
[2018-05-18] MEDS ORDERED: POTASSIUM CL 10MEQ/50ML IVPB 50 ML IV SCH (06:00)
[2018-05-18] MEDS ORDERED: KCL 20 MEQ TAB (K-DUR) PO SCH (06:00)
[2018-05-18] MEDS: MULTIVIT W/MINERALS TAB (THERAGRAN M) PO SCH (06:54)
--- NOTE | 2018-05-18 07:11 | Diagnostic Imaging Report ---
INDICATION: Respiratory failure. Portable chest 3:58 AM FINDINGS: Right IJ central line tip projects over the SVC. Heart size and pulmonary vascularity are normal. There is some bilateral perihilar infiltrate or atelectasis. IMPRESSION: Bilateral perihilar infiltrate and/or atelectasis. No significant change from previous day. Dictated by: Dictated on workstation # [id number]
--- NOTE | 2018-05-18 08:55 | Progress Note-Cardiology ---
Cardiology SOAP Progress Note Subjective: Denies cp or palp or syncope Notes gen malaise and tiredness Does not have any recollection of events of yesterday Objective: I&O/Vital Signs 05/17/18 05/17/18 05/17/18 05/17/18 21:00 22:00 22:32 23:00 Pulse 79 74 68 68 Resp 17 19 12 19 B/P (MAP) 137/72 (93) 123/66 (85) 124/68 (86) Pulse Ox 96 97 95 100 O2 Delivery NIV Bilevel NIV Bilevel NIV Bilevel O2 Flow Rate 35.00 35.00 35.00 35.00 05/18/18 05/18/18 05/18/18 05/18/18 00:00 00:10 00:10 00:46 Temp 97.1 Pulse 64 70 Resp 17 20 B/P (MAP) 132/65 (87) Pulse Ox 100 100 O2 Delivery NIV Bilevel NIV Bilevel O2 Flow Rate 35.00 35.00 05/18/18 05/18/18 05/18/18 05/18/18 01:00 01:00 02:00 03:00 Pulse 69 69 70 79 Resp 23 15 13 B/P (MAP) 111/83 (92) 135/69 (91) 144/87 (106) Pulse Ox 97 100 98 O2 Delivery NIV Bilevel NIV Bilevel NIV Bilevel O2 Flow Rate 35.00 35.00 35.00 05/18/18 05/18/18 05/18/18 05/18/18 03:31 04:00 04:23 04:23 Temp 98.7 Pulse 71 76 Resp 16 11 B/P (MAP) 119/76 (90) Pulse Ox 97 100 O2 Delivery NIV Bilevel NIV Bilevel O2 Flow Rate 35.00 35.00 05/18/18 05/18/18 05/18/18 05/18/18 05:00 06:00 06:11 07:00 Pulse 80 78 81 Resp 25 22 22 B/P (MAP) 118/61 (80) 137/43 (74) Pulse Ox 100 97 98 95 O2 Delivery Nasal Cannula Nasal Cannula Nasal Cannula Nasal Cannula O2 Flow Rate 5.00 5.00 5.00 5.00 05/18/18 05/18/18 07:10 08:00 Pulse 80 82 Resp 18 B/P (MAP) 140/67 (91) Pulse Ox 98 O2 Delivery Nasal Cannula O2 Flow Rate 5.00 05/18/18 00:00 Intake Total 1050 ml Output Total 675 ml Balance 375 ml Weight (Pounds): 321 Weight (Ounces): 3.0 Weight (Calculated Kilograms): 145.872577 Constitutional: AAO x 3, well-developed, well-nourished Respiratory: other (Air entry diminished at the bases; prolonged exp phase) Cardiovascular: regular rate-rhythm, S1 and S2, systolic murmur (soft ALEC at card base) Gastrointestional: No tender, No guarding, No rebound; audible bowel sounds Extremities: other (mild bilat leg swelling); No clubbing, No cyanosis Neurologic/Psychiatric: other (Alert and oriented x 3 today; moves all limbs equally) Skin: normal color, warm/dry Results/Procedures: Labs Laboratory Tests 05/17/18 12:05: Blood Gas Puncture Site L RADIAL, Blood Gas Patient Temperature 99.2, Arterial Blood pH 7.34*L, Arterial Blood Partial Pressure CO2 65H, Arterial Blood Partial Pressure O2 63L, Arterial Blood HCO3 34H, Arterial Blood Total CO2 36.2H , Arterial Blood Oxygen Saturation 91L, Arterial Blood Base Excess 8.6H, James Test YES-POS, Blood Gas Ventilator Setting NO, Blood Gas Inspired Oxygen 10 05/17/18 12:13: White Blood Count 9.6, Red Blood Count 2.68L, Hemoglobin 7.3L, Hematocrit 26L, Mean Corpuscular Volume 97, Mean Corpuscular Hemoglobin 27, Mean Corpuscular Hemoglobin Concent 28L, Red Cell Distribution Width 17.6H, Platelet Count 392, Mean Platelet Volume 8.8, Neutrophils (%) (Auto) 71, Lymphocytes (%) (Auto) 16, Monocytes (%) (Auto) 13H, Eosinophils (%) (Auto) 0, Basophils (%) (Auto) 0, Neutrophils # (Auto) 6.8, Lymphocytes # (Auto) 1.5, Monocytes # (Auto) 1.3H, Eosinophils # (Auto) 0.0, Basophils # (Auto) 0.0, Prothrombin Time 15.3H, INR Comment 1.2, Activated Partial Thromboplast Time 35, Sodium Level 141, Potassium Level 5.2H, Chloride Level 99, Carbon Dioxide Level 32, Anion Gap 10, Blood Urea Nitrogen 71H, Creatinine 2.40H, Estimat Glomerular Filtration Rate 20 , BUN/Creatinine Ratio 30, Glucose Level 124H, Lactic Acid Level 0.73, Calcium Level 10.1, Corrected Calcium 11.1H, Total Bilirubin 0.2, Aspartate Amino Transf (AST/SGOT) 39H, Alanine Aminotransferase (ALT/SGPT) 66H, Alkaline Phosphatase 241H, Troponin I 0.513*H, C-Reactive Protein High Sensitivity 12.59H , B-Type Natriuretic Peptide 1818.0H, Total Protein 6.6, Albumin 2.7L 05/17/18 12:26: Urine Color YELLOW, Urine Clarity SLIGHTLY CLOUDY, Urine pH 5, Urine Specific [place] 1.020, Urine Protein 3+H, Urine Glucose (UA) NEGATIVE, Urine Ketones NEGATIVE, Urine Nitrite NEGATIVE, Urine Bilirubin NEGATIVE, Urine Urobilinogen NORMAL, Urine Leukocyte Esterase 3+H, Urine RBC (Auto) 1+H, Urine RBC RARE, Urine WBC >100H, Urine Crystals NONE, Urine Bacteria MODERATEH, Urine Casts NONE , Urine Mucus NEGATIVE, Urine Culture Indicated CULTURE PENDING 05/17/18 13:07: Blood Gas Puncture Site LEFT RADIAL, Blood Gas Patient Temperature 99.2, Arterial Blood pH 7.37, Arterial Blood Partial Pressure CO2 63H, Arterial Blood Partial Pressure O2 206H, Arterial Blood HCO3 35H, Arterial Blood Total CO2 36.6H, Arterial Blood Oxygen Saturation 100, Arterial Blood Base Excess 9.3H, James Test YES-POS, Blood Gas Ventilator Setting NO, Blood Gas Inspired Oxygen 60% BIPAP 05/17/18 17:49: Glucometer 82 05/18/18 03:29: White Blood Count 10.1, Red Blood Count 2.69L, Hemoglobin 7.3L, Hematocrit 26L, Mean Corpuscular Volume 98, Mean Corpuscular Hemoglobin 27, Mean Corpuscular Hemoglobin Concent 28L, Red Cell Distribution Width 17.3H, Platelet Count 344, Mean Platelet Volume 8.5, Neutrophils (%) (Auto) 79H, Lymphocytes (%) (Auto) 10L , Monocytes (%) (Auto) 10, Eosinophils (%) (Auto) 1, Basophils (%) (Auto) 0, Neutrophils # (Auto) 8.0H, Lymphocytes # (Auto) 1.0, Monocytes # (Auto) 1.0, Eosinophils # (Auto) 0.1, Basophils # (Auto) 0.0, Sodium Level 140, Potassium Level 4.8, Chloride Level 101, Carbon Dioxide Level 29, Anion Gap 10, Blood Urea Nitrogen 70H, Creatinine 2.19H, Estimat Glomerular Filtration Rate 23, BUN/ Creatinine Ratio 32, Glucose Level 139H, Calcium Level 9.8, Corrected Calcium 10.8H, Phosphorus Level 4.4, Magnesium Level 2.4, Total Bilirubin 0.2, Aspartate Amino Transf (AST/SGOT) 26, Alanine Aminotransferase (ALT/SGPT) 55, Alkaline Phosphatase 233H, Total Protein 6.5, Albumin 2.7L 05/18/18 04:14: Blood Gas Puncture Site LEFT RADIAL, Blood Gas Patient Temperature 98.7, Arterial Blood pH 7.39, Arterial Blood Partial Pressure CO2 53H, Arterial Blood Partial Pressure O2 72L, Arterial Blood HCO3 32H, Arterial Blood Total CO2 33.2H , Arterial Blood Oxygen Saturation 96, Arterial Blood Base Excess 6.7H, James Test YES-POS, Blood Gas Ventilator Setting NO, Blood Gas Inspired Oxygen 35% Microbiology 05/17/18 Influenza Types A,B Antigen (CARMELA) - Final, Complete Laboratory Tests 05/17/18 12:13 05/18/18 03:29 A/P: Assessment: Ac mental status changes and ac resp failure, improving Elevated troponin likely to hypoxia due to ac resp failure and due to ac on ch renal failure; elevated BNP likely due to renal and resp failure H/o bradycardic cardiac arrest in October 2017, likely related to metabolic and electrolyte abnormalities Acute on chronic renal failure, acute component likely due to vol depletion, chronic component likely due to DM II H/o severe hypertension. Hospitalization with hypertensive encephalopathy in late September 2017 (managed by Dr Pedro) Coronary artery disease with a history of coronary stenting in early [address] Hairston. The patient is stated to have received Promus 2.25 x 32 mm stent in the distal left anterior descending and Promus 2.25 x 28 mm stent in the left circumflex. These stents were patent on last cath of 03/25/14, but she underwent additional stenting: distal LAD with MiniVision 2x12 and proximal first diagonal with Promus Mike 2.5x12. The RCA was dominant and with mild plaques at the time of last cath of 03/25/14. LVEDP was mildly elevated. Last MPI of 03/22/16 showed no evidence of myocard ischemia or infarction, normal wall motion and LVEF 65%. Echo of 03/21/16 was a technically difficult study, but showed LVEF 65%, trivial to mild MR & TR, mild AoV sclerosis w/o stenosis, PASP WNL H/o osteomyelitis of the R great toe managed by Dr Alex of [facility] in [place], [place] Normal ABIs on 02/24/16 Carotid arterial disease with history of right carotid endarterectomy. Last carotid ultrasound of 07/24/17 showed 60-79% R ICA and less than 40% L ICA stenoses Maturity onset diabetes mellitus. Hyperlipidemia being treated with atorvastatin. Chronic kidney disease, stage IV, being managed by Dr Sarmad Varghese. Chronic anemia, likely related to chronic kidney disease, managed by Dr Augustin. UTI. H/o urinary tract infections, being managed by her pcp History of chronic, recurrent deep venous thrombosis. History of inferior vena cava placement by Dr. Duvall in September 2011. History of left venous port placement by Dr. Duvall. The patient is a Jehovahs Witness and does not wish to ever receive any blood transfusions and is not, therefore, considered an ideal candidate for oral anticoagulation Chronic leg swelling and stasis dermatitis, likely related to venous insufficiency and calcium channel donna therapy, unchanged Obesity with hypoventilation syndrome; BMI 52.5 Sleep apnea syndrome, being managed by Dr Fernandez Plan: * Complex management due to multiple comorbidities * Continue previous card regimen * Continue slow and careful hydration * Monitor labs * I spoke with her and her fam and answered questions TRELL GERONIMO MD FACP [facility] May 18, 2018 08:55
[2018-05-18] MEDS ORDERED: MULT-166 PO (08:56)
[2018-05-18] MEDS ORDERED: CARB15DR87 EACH EAR (08:56)
[2018-05-18] MEDS ORDERED: [UNRECOGNIZED DRUG - CODE] TP (08:56)
--- NOTE | 2018-05-18 08:59 | NUR ---
UPDATED MED REC [facility]
--- NOTE | 2018-05-18 09:16 | Physical Therapy Evaluation ---
PT Evaluation-General Medical Diagnosis Admission Date May 17, 2018 at 13:56 Medical Diagnosis: respiratory failure/UTI/AMS Onset Date: May 17, 2018 Therapy Diagnosis Therapy Diagnosis: debility Height/Weight Height (Feet): 5 Height (Inches): 5.00 Weight (Pounds): 321 Weight (Ounces): 3.0 Precautions Precautions/Isolations: Contact Isolation, Fall Prevention, Standard Precautions Referral Physician: Rebecca Reason for Referral: Evaluation/Treatment Medical History Pertinent Medical History: CAD, COPD, DM, Heart Failure, HTN, MS, OA, Renal Insufficiency Additional Medical History morbid obesity Current History EMS secondary to slow responsiveness and decreases SAO2 85% on 4L O2 NC Reviewed History: Yes Social History Home: Assisted Prior/Core FIM Prior Level of Function Therapy Code Descriptions/Definitions Functional [place] Measure: 0=Not Assessed/NA 4=Minimal Assistance 1=Total Assistance 5=Supervision or Setup 2=Maximal Assistance 6=Modified [place] 3=Moderate Assistance 7=Complete [place] Therapy Quality Codes: 6 Independent with activity with or without an assistive device 5 Patient requires set up or clean up by helper. Patient completes activity by themselves 4 Supervision or touching assist (CGA). [place] provide cues , steadying assist 3 The helper provides less than half the effort to complete the activity 2 The helper provides more than half the effort to complete the activity 1 Dependent. The helper does all the effort to complete an activity 7 Patient refused to complete or attempt activity 9 The patient did not perform the activity before the current illness or injury 88 Not attempted due to Medical conditions or safety concerns Functional Abilities and Goals: Independent: Patient completed the activities by him/herself, with or without an assistive device, with no assistance from a helper. Needed Some Help: Patient needed partial assistance from another person to complete activities. Dependent: A helper completed the activities for the patient. Unknown: Not Applicable: Bed Mobility: 1 Transfers (B,C,W/C) (FIM): 1 Indoor Mobility (Ambulation): Dependent Stairs: Unknown Prior Device Use: lavinia lift PT Evaluation-Current Subjective Patient is in bed eating upon arrival. Pain Numeric Pain Scale: 10-Worst Possible Pain Location: Right, Left Location Body Site: Knee Pain Description: Chronic Objective Patient Orientation: Person, Time, Situation Problem Solving: Poor Attachments: Oxygen, Umanzor Catheter, IV ROM/Strength ROM Lower Extremities severely diminished (chronic) secondary to sedentary life style and dependent with all Strength Lower Extremities 1/5 grossly bilaterally Integumentary/Posture Integumentary refer to nursing notes (PT donned bilateral foam heal protectors) Bowel Incontinence: Yes Bladder Incontinence: Umanzor Cath Neuromuscular (Tone, Coordination, Reflexes) noted bilateral UE tremors (chronic) Sensory Vision: Functional Hearing: Functional Sensation Right Lower Extremit: Impaired Sensation Left Lower Extremity: Impaired Transfers Therapy Code Descriptions/Definitions Functional [place] Measure: 0=Not Assessed/NA 4=Minimal Assistance 1=Total Assistance 5=Supervision or Setup 2=Maximal Assistance 6=Modified [place] 3=Moderate Assistance 7=Complete [place] Transfers (B, C, W/C) (FIM): 1 Rollin PT instructed nursing to perform Lavinia transfer for mobility Assessment/Needs 67 y.o. female, continues to require dependent assist with all bed mobility and transfer (PLOF) from [place]. No skilled PT indicated at this time. Nursing to perform Lavinia transfers PRN. Rehab Potential: Poor PT Plan Treatment/Plan Treatment Plan: Discontinue PT Treatment Plan: Other Treatment Duration: May 18, 2018 Frequency: 1 time per week Estimated Hrs Per Day: .25 hour per day Patient and/or Family Agrees t: Yes Discharge Recommendations Therapy D/C Recommendations: Assisted Placement Time/GCodes Time In: 755 Time Out: 810 Total Billed Treatment Time: 15 Total Billed Treatment 1 visit EVMod 15 min LANDON MALDONADO PT May 18, 2018 09:16
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
[2018-05-18] MEDS: FERROUS SULF 325 MG (IRON) TAB PO SCH ×2 (11:44→17:30)
[2018-05-18] MEDS: TORSEMIDE 20 MG (DEMADEX) TAB PO SCH ×2 (11:44→20:59)
[2018-05-18] MEDS: ASPIRIN 81 MG CHEW (CHILDREN'S ASA) PO SCH (11:45)
[2018-05-18] MEDS: hydrALAZINE (APRESOLINE) 25 MG TAB PO SCH ×3 (11:45→20:59)
[2018-05-18] MEDS: meTOprolol TARTRATE 25 MG (LOPRESSOR) TABLET PO SCH ×4 (11:45→21:00)
[2018-05-18] MEDS: LACTULOSE SYRUP 10GM/15ML (ENULOSE) 30ML UDC PO SCH ×2 (11:51→19:24)
--- NOTE | 2018-05-18 11:56 | NUR ---
1130 PT TO ROOM 431 VIA BED ACCOMPANIED BY LENIN SHEPHERD. PT TRANSFERRED TO AIR MATTRESS WITH MARCIA LIFT USED. PT NOTED TO HAVE AN AREA OF CONCERN ON BUTTOCKS, ALEYVN IN PLACE. PT VERBALIZES NO C/O OF PAIN. CALL LIGHT AND OTHER PERSONAL ITEMS WITHIN REACH WILL CONTINUE TO MONITOR.
[2018-05-18] MEDS: GABAPENTIN 100 MG (NEURONTIN) CAP PO SCH ×2 (13:03→20:59)
[2018-05-18] MEDS: cefTRIAXone 1 GM/NS 50 ML IVPB IV SCH ×2 (13:03)
--- NOTE | 2018-05-18 15:15 | Occupational Therapy Eval ---
OT Evaluation-General/PLF Medical Diagnosis Admission Date May 17, 2018 at 13:56 Medical Diagnosis: respiratory failure/UTI/AMS Onset Date: May 17, 2018 Therapy Diagnosis Therapy Diagnosis: debility Height/Weight Height (Feet): 5 Height (Inches): 5.00 Weight (Pounds): 321 Weight (Ounces): 3.0 Precautions Precautions/Isolations: Contact Isolation, Fall Prevention, Standard Precautions Safety Interventions: None Referral Physician: Rebecca Medical History Pertinent Medical History: CAD, COPD, DM, Heart Failure, HTN, SD, OA, Renal Insufficiency Additional Medical History diabetic retinopathy, morbid obesity, multiple TIAs, neuropathy, GI bleed, DDD, cardiac arrest, CKD, DVT, HERNAN, high cholesterol, DVT, PVD, IVC filter Reviewed History: Yes Social History Home: [facility] ADL-Prior Level of Function Therapy Code Descriptions/Definitions Functional Baxter Measure: 0=Not Assessed/NA 4=Minimal Assistance 1=Total Assistance 5=Supervision or Setup 2=Maximal Assistance 6=Modified Baxter 3=Moderate Assistance 7=Complete Baxter Therapy Quality Codes: 6 Independent with activity with or without an assistive device 5 Patient requires set up or clean up by helper. Patient completes activity by themselves 4 Supervision or touching assist (CGA). [place] provide cues , steadying assist 3 The helper provides less than half the effort to complete the activity 2 The helper provides more than half the effort to complete the activity 1 Dependent. The helper does all the effort to complete an activity 7 Patient refused to complete or attempt activity 9 The patient did not perform the activity before the current illness or injury 88 Not attempted due to Medical conditions or safety concerns Functional Abilities and Goals: Independent: Patient completed the activities by him/herself, with or without an assistive device, with no assistance from a helper. Needed Some Help: Patient needed partial assistance from another person to complete activities. Dependent: A helper completed the activities for the patient. Unknown: Not Applicable: ADL PLOF Comments Pt is a [place] resident. Pt states she is able to feed herself and complete some grooming, but has assist for all other ADLs. Toya lift for transfers to chair and shower chair. Pt states she wears a brief and does not transfer to the commode. Self Care: Dependent Drive Self: No OT Current Status Subjective Pt in bed eating, agrees to therapy. Mental Status/Objective Patient Orientation: Person Attachments: IV, Oxygen Current Glasses/Contacts: Yes Hand Dominance: Right Upper Extremity ROM Grossly functional Upper Extremity Coordination Fair. Pt has tremors ADL-Treatment ADL-Current Pt feeding self after set up. Requires assist to manage containers, but is able to scoop food and bring to mouth. Pt participated in UE assessment while in bed. Pt able to wash face with set up. Pt receives assist for all other ADLs and transfers. Currently at baseline functioning. Pt resting in bed with needs met after session. Therapy Code Descriptions/Definitions Functional Baxter Measure: 0=Not Assessed/NA 4=Minimal Assistance 1=Total Assistance 5=Supervision or Setup 2=Maximal Assistance 6=Modified Baxter 3=Moderate Assistance 7=Complete Baxter Therapy Quality Codes: 6 Independent with activity with or without an assistive device 5 Patient requires set up or clean up by helper. Patient completes activity by themselves 4 Supervision or touching assist (CGA). [place] provide cues , steadying assist 3 The helper provides less than half the effort to complete the activity 2 The helper provides more than half the effort to complete the activity 1 Dependent. The helper does all the effort to complete an activity 7 Patient refused to complete or attempt activity 9 The patient did not perform the activity before the current illness or injury 88 Not attempted due to Medical conditions or safety concerns OT Education/Plan Problem List/Assessment Assessment: No Skilled OT Needs ID'd Pt admitted to hospital with respiratory failure/UTI. At baseline pt is able to feed herself and participate in grooming tasks. She receives assist for dressing , bathing, transfers, and toileting. Pt currently demonstrates ability to feed herself and wash face after set up. Pt is currently at [facility]. No skilled OT intervention indicated at this time. Discharge Recommendations Plan/Recommendations: Discontinue OT Treatment Plan/Plan of Care Treatment,Training & Education: No Treatment Duration: May 18, 2018 Frequency: 1 time per week (one time-evaluation only) Estimated Hrs Per Day: Other (evaluation only) Rehab Potential: Poor Time/GCodes Start Time: 13:10 Stop Time: 13:24 Total Time Billed (hr/min): 14 Billed Treatment Time 1 visit, OSWALDO(14minutes) SUSANNE REY OT OT May 18, 2018 15:15
[2018-05-18] MEDS: cloNIDine 0.1 MG (CATAPRES) TAB PO SCH (20:58)
[2018-05-18] MEDS: inSUlin DETERMIR 1 UNIT/0.01 ML (LEVEMIR) CHARGE PER UNIT SQ SCH (21:00)
[2018-05-18] MEDS ORDERED: FERROUS SULF 325 MG (IRON) TAB PO SCH (21:00)
[2018-05-18] MEDS: ROSUVASTATIN 20 MG (CRESTOR) TABLET PO SCH (21:04)
[2018-05-19] VITALS (7 sets, daily range): BP systolic 120–142; BP diastolic 0–66
[2018-05-19] MEDS: RT-ALBUTEROL/IPRATROPIUM 3 ML (DUONEB) VIAL INH SCH ×6 (01:22→21:15)
[2018-05-19] MEDS: MULTIVIT W/MINERALS TAB (THERAGRAN M) PO SCH (06:24)
[2018-05-19] MEDS: FERROUS SULF 325 MG (IRON) TAB PO SCH ×2 (06:24→18:28)
[2018-05-19] MEDS: inSUlin ASPART (NovoLOG) 1 UNIT/0.01 ML (CHARGE PER UNIT) SC SCH ×3 (06:25→18:21)
[2018-05-19 06:34] LABS: BASOPHILS % (AUTO) 0 % (0-10); EOSINOPHILS # (AUTO) 0.1 10^3/uL (0.0-0.3); EOSINOPHILS % (AUTO) 1 % (0-10); HEMATOCRIT 25 % (35-52); HEMOGLOBIN 7.1 G/DL (11.5-16.0); LYMPHOCYTES # (AUTO) 1.4 X 10^3 (1.0-4.0); LYMPHOCYTES % (AUTO) 14 % (12-44); MEAN CORPUSCULAR HEMOGLOBIN 28 PG (25-34); MEAN CORPUSCULAR HGB CONC 29 G/DL (32-36); MEAN CORPUSCULAR VOLUME 96 FL (80-99); MEAN PLATELET VOLUME 8.7 FL (7.4-10.4); MONOCYTES # (AUTO) 1.2 X 10^3 (0.0-1.0); MONOCYTES % (AUTO) 12 % (0-12); NEUTROPHILS # (AUTO) 7.1 X 10^3 (1.8-7.8); NEUTROPHILS % (AUTO) 73 % (42-75); PLATELET COUNT 375 10^3/uL (130-400); RED BLOOD COUNT 2.56 10^6/uL (4.35-5.85); RED CELL DISTRIBUTION WIDTH 17.3 % (10.0-14.5); WHITE BLOOD COUNT 9.7 10^3/uL (4.3-11.0)
[2018-05-19 06:59] LABS: ALBUMIN 2.6 GM/DL (3.2-4.5); BILIRUBIN,TOTAL 0.2 MG/DL (0.1-1.0); CALCIUM 9.8 MG/DL (8.5-10.1); CREATININE SERUM 2.11 MG/DL (0.60-1.30); MAGNESIUM 2.1 MG/DL (1.8-2.4); POTASSIUM 4.2 MMOL/L (3.6-5.0); TOTAL PROTEIN 6.3 GM/DL (6.4-8.2)
--- NOTE | 2018-05-19 08:25 | Progress Note (SOAP) ---
Subjective Subjective/Events-last exam Patient communicating very well. She does not voice any major concerns other than her buttocks is somewhat tender. She does not currently have any shortness of breath. Review of Systems Date Seen by Provider: May 19, 2018 Time Seen by Provider: 07:45 Focused Exam Lactate Level 05/17/18 12:13: Lactic Acid Level 0.73 Time of Focused Exam: 13:10 Objective Exam Last Set of Vital Signs Vital Signs Date Time Temp Pulse Resp B/P (MAP) Pulse Ox O2 Delivery O2 Flow Rate FiO2 05/19/18 07:10 92 Nasal Cannula 3.00 05/19/18 04:12 72 13 05/19/18 04:00 97.4 120/60 (80) 05/17/18 18:38 36 Capillary Refill : Less Than 3 Seconds I&O Intake and Output 05/19/18 00:00 Intake Total 3330 ml Output Total 1675 ml Balance 1655 ml Intake Oral 2030 ml IV Total 1300 ml Output Urine Total 1675 ml # Bowel Movements 5 General: No Acute Distress Lungs: Clear to Auscultation Abdomen: Soft Other physical findings area observed externally not with speculum but she is noted to have what appears to be drainage around the Umanzor catheter site. Results/Procedures Lab Laboratory Tests 05/18/18 11:52: Glucometer 217H 05/18/18 14:15: Stool Occult Blood Immunoassay POSITIVEH 05/18/18 19:47: Glucometer 184H 05/18/18 20:55: Glucometer 160H 05/18/18 23:39: Glucometer 138H 05/19/18 05:07: Glucometer 123H 05/19/18 06:20: White Blood Count 9.7, Red Blood Count 2.56L, Hemoglobin 7.1L, Hematocrit 25L, Mean Corpuscular Volume 96, Mean Corpuscular Hemoglobin 28, Mean Corpuscular Hemoglobin Concent 29L, Red Cell Distribution Width 17.3H, Platelet Count 375, Mean Platelet Volume 8.7, Neutrophils (%) (Auto) 73, Lymphocytes (%) (Auto) 14, Monocytes (%) (Auto) 12, Eosinophils (%) (Auto) 1, Basophils (%) (Auto) 0, Neutrophils # (Auto) 7.1, Lymphocytes # (Auto) 1.4, Monocytes # (Auto) 1.2H, Eosinophils # (Auto) 0.1, Basophils # (Auto) 0.0, Sodium Level 141, Potassium Level 4.2, Chloride Level 101, Carbon Dioxide Level 29, Anion Gap 11, Blood Urea Nitrogen 71H, Creatinine 2.11H, Estimat Glomerular Filtration Rate 24, BUN/ Creatinine Ratio 34, Glucose Level 112H, Calcium Level 9.8, Corrected Calcium 10.9H, Phosphorus Level 4.0, Magnesium Level 2.1, Total Bilirubin 0.2, Aspartate Amino Transf (AST/SGOT) 25, Alanine Aminotransferase (ALT/SGPT) 39, Alkaline Phosphatase 218H, Total Protein 6.3L, Albumin 2.6L Microbiology 05/17/18 Blood Culture - Preliminary, Resulted No growth 05/17/18 MRSA Screen - Final, Complete 05/17/18 Urine Culture - Preliminary, Resulted Gram Negative Bacillus 1 Radiology Date of Exam: 05/18/18 CHEST 1 VIEW, AP/PA ONLY INDICATION: Respiratory failure. Portable chest 3:58 AM FINDINGS: Right IJ central line tip projects over the SVC. Heart size and pulmonary vascularity are normal. There is some bilateral perihilar infiltrate or atelectasis. IMPRESSION: Bilateral perihilar infiltrate and/or atelectasis. No significant change from previous day. Date of Exam: 05/17/18 CHEST 1 VIEW, AP/PA ONLY INDICATION: Hypoxia. EXAMINATION: Frontal chest obtained at 12:13 p.m. and compared with 04/22/2018. FINDINGS: Heart is mildly enlarged. There is central vascular congestion. There are patchy bilateral basilar infiltrates which appear chronic or unchanged compared to the prior study. There is no pneumothorax or gross pleural fluid. Port-A-Cath is unchanged. IMPRESSION: There are unchanged bilateral basilar infiltrates when compared to the previous study of 04/22/2018. There is no new abnormality. There is cardiomegaly. Date of Exam: 05/17/18 CT HEAD WO-R/O STROKE PROCEDURE: CT head wo r/o stroke. TECHNIQUE: Multiple contiguous axial images were obtained through the brain without the use of intravenous contrast. INDICATION: Fever and decreased level of consciousness. COMPARISON: Correlation is made with prior head CT from 08/18/2017. FINDINGS: Ventricles and sulci appear stable when compared with prior exam. Moderate periventricular hypodensity is noted, consistent with changes of chronic microvascular ischemia. No sulcal effacement is seen. There is no midline shift. No acute intra-axial or extra-axial hemorrhage is detected. Cisterns are patent. Visualized paranasal sinuses are clear. There is opacification of the right mastoid air cells suggestive of right mastoid effusion. IMPRESSION: Stable chronic changes when compared with exam from 08/18/2017. No acute intracranial process is detected. Dr. Benson of the emergency department was notified of these results prior to this dictation. Assessment/Plan Assessment/Plan Assessment & Plan Hypoxia -etiology obesity hypoventilation syndrome (most likely) vs. infection -hospitalized two times in April 2018 for hypoxia and UTI -on O2 (AM) and Bipap (PM) at group home -work up: -respiratory acidosis with metabolic compensation, chronic -ABG improving, trending in the right direction -afebrile, no leukocytosis -CXR shows bibasilar perihilar infiltrates, stable from imaging 04/22 -flu swab negative Plan -on O2 now -albuterol/ipratropirum PRN -patient improving, will transfer to floor status UTI -UA LE 3+, WBC >100, moderate bacteria -f/u UCx -receiving ceftriaxone IV (05/17- ) Chronic Anemia -DDx iron deficiency anemia vs. anemia of chronic disease vs. combination of the two -receiving iron PO -Hgb over last two admission is 7-8.3; Hgb up to 9-10 in February 2018 -f/u stool occult blood -continue to monitor, patient has a history of iron transfusions HTN -receiving metoprolol tartrate Diabetes Mellitus -BS <180 since admission -not requiring SSI since admission CKD -baseline 2-2.5; patient Cr at baseline today -continue to monitor Functional Disability -receiving PT/OT -patient states she has wound on her bottom, will consult wound team (1) Wound of sacral region Status: Acute Assessment & Plan: Present on admission, wound care consulted. 05/19 -Wound care has been consult and should see most likely today. (2) Acute and chronic respiratory failure with hypoxia Status: Acute Assessment & Plan: Acute on chronic hypoxic, hypercapneic respiratory failure possibly secondary to AMS related to UTI. Improved with Bipap and increased FiO2 overnight, now stable on nasal cannula. Pulmonology consulted, appreciate recommendations. 05/19 -She appears to be without any respiratory status distress and breathing comfortably (3) Iron deficiency anemia Status: Chronic Assessment & Plan: Sees Hematology outpatient, [facility] does not want blood transfusions, has been on IV iron in past. Stool occult blood pending due to worsened anemia. 05/19 -Hemoglobin stable at 7.1 this morning. (4) Altered mental status Status: Resolved Assessment & Plan: Suspect multifactorial due to hypercapnea, hypoxia and UTI. Resolved this morning. 05/19 -Mental status markedly improved today Qualifiers: Qualified Codes: R41.82 - Altered mental status, unspecified (5) Urinary tract infection Status: Acute Assessment & Plan: Started on IV ceftriaxone, previous urine culture with resistance only to ampicillin. F/U urine culture. 05/19 -Patient continues with IV Rocephin daily. -Urine culture had gram-negative bacteria Qualifiers: Qualified Codes: N39.0 - Urinary tract infection, site not specified (6) Elevated troponin Status: Acute Assessment & Plan: Cardiology consulted, appreciate recommendations. Asymptomatic, suspect hypoxia and CKD as etiology. 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 Sliding scale insulin as needed. (10) Obesity hypoventilation syndrome Status: Chronic Assessment & Plan: On bipap at night at home, continue inpatient. (11) Sleep apnea with use of nocturnal bilevel positive airway pressure (BPAP) Status: Chronic (12) Unable to ambulate Status: Chronic Assessment & Plan: Has not ambulated since the cardiac arrest and recovery she experienced in October 2017. [place] uses a lift for transfers from bed to wheelchair. (13) Hyperkalemia Status: Resolved (14) DVT prophylaxis Status: Acute Assessment & Plan: Is high risk for DVT with history of DVT and IVC filter and multiple other risk factors. However, she has significant anemia and will not accept blood transfusions and requires antiplatelet therapy for her CAD. Will use SCDs only and monitor hemoglobin closely, may be able to start enoxaparin renally dosed if hemoglobin stable. Clinical Quality Measures DVT/VTE Risk/Contraindication: Risk Factor Score Per Nursin RFS Level Per Nursing on Admit: 4+=Very High RUIZ DOTSON MD May 19, 2018 08:24
[2018-05-19] MEDS: MAGNESIUM OXIDE (MAG-OX)400 MG TAB PO SCH (08:28)
[2018-05-19] MEDS: meTOprolol TARTRATE 25 MG (LOPRESSOR) TABLET PO SCH ×4 (09:38→20:52)
[2018-05-19] MEDS: inSUlin DETERMIR 1 UNIT/0.01 ML (LEVEMIR) CHARGE PER UNIT SQ SCH ×2 (09:38→20:53)
[2018-05-19] MEDS: GABAPENTIN 100 MG (NEURONTIN) CAP PO SCH ×3 (09:39→20:52)
[2018-05-19] MEDS: ASPIRIN 81 MG CHEW (CHILDREN'S ASA) PO SCH (09:39)
[2018-05-19] MEDS: CLOPIDOGREL 75 MG (PLAVIX) TABLET PO SCH (09:39)
[2018-05-19] MEDS: hydrALAZINE (APRESOLINE) 25 MG TAB PO SCH ×3 (09:39→20:52)
[2018-05-19] MEDS: cloNIDine 0.1 MG (CATAPRES) TAB PO SCH ×2 (09:39→20:51)
[2018-05-19] MEDS: TORSEMIDE 20 MG (DEMADEX) TAB PO SCH ×2 (09:39→20:51)
[2018-05-19] MEDS: LACTULOSE SYRUP 10GM/15ML (ENULOSE) 30ML UDC PO SCH ×2 (09:58→19:51)
--- NOTE | 2018-05-19 10:00 | NUR ---
NOTE THAT THIS RN GAVE THE LOPRESSOR 12.5MG TAB THIS AM -- THIS RN CALLED AND TALKED TO PHARMACY AND THIS RN WILL TALK TO THE DR ABOUT 12.5MG BID OR 25MG BID
--- NOTE | 2018-05-19 10:28 | Pulmonary Progress Note ---
Sepsis Event Evaluation Height, Weight, BMI Height: 5'5.00" Weight: 326lbs. 3.0oz. 147.446950hm; 52.5 BMI Method:Stated Focused Exam Lactate Level 05/17/18 12:13: Lactic Acid Level 0.73 Time of Focused Exam: 13:10 Exam Exam Vital Signs Date Time Temp Pulse Resp B/P (MAP) Pulse Ox O2 Delivery O2 Flow Rate FiO2 05/19/18 08:00 Nasal Cannula 4.00 05/19/18 08:00 97.3 82 20 120/56 (77) 90 NIV Bilevel 4.00 05/19/18 07:10 92 Nasal Cannula 3.00 05/19/18 04:13 Nasal Cannula 3.00 05/19/18 04:12 72 13 99 35.00 05/19/18 04:00 97.4 73 18 120/60 (80) 93 NIV Bilevel 4.00 05/19/18 01:22 70 25 98 35.00 05/18/18 23:35 98.3 64 18 97/46 (63) 97 NIV Bilevel 4.00 05/18/18 21:40 70 24 95 35.00 05/18/18 21:17 95 Nasal Cannula 4.00 05/18/18 20:30 99.2 82 19 118/56 (76) 92 Nasal Cannula 4.00 05/18/18 20:00 Nasal Cannula 4.00 05/18/18 18:40 98 Nasal Cannula 5.00 05/18/18 16:13 99.5 84 22 113/55 (74) 95 Nasal Cannula 5.00 05/18/18 12:00 98.9 100 20 147/78 (101) 93 Nasal Cannula 5.00 05/18/18 11:00 98 28 156/88 (110) 95 Nasal Cannula 5.00 I & O 05/19/18 07:00 Intake Total 1820 ml Output Total 1925 ml Balance -105 ml Height & Weight Height: 5'5.00" Weight: 326lbs. 3.0oz. 147.488212yy; 52.5 BMI Method:Stated General Appearance: No Apparent Distress, WD/WN, Obese HEENT: PERRL/EOMI, Normal ENT Inspection Neck: Normal Inspection Respiratory: Lungs Clear, Decreased Breath Sounds Cardiovascular: Regular Rate, Rhythm, No Murmur Capillary Refill: Less Than 3 Seconds Peripheral Pulses: 2+ Radial Pulses (L) Gastrointestinal: normal bowel sounds Extremity: Non Tender, No Pedal Edema, Pedal Edema Neurologic/Psychiatric: Alert Results Lab Laboratory Tests 05/17/18 12:13 05/18/18 03:29 05/19/18 06:20 Assessment/Plan Assessment/Plan Acute on chronic respiratory failure -PRN BIPAP and oxygen -SVNs UTI -bryant culture -Rocephin Anemia -restart Fe, and folate. CKD 4 -IVF, and monitor Hyperkalemia - resolved -Monitor Elevated troponin secondary to hypoxia, Anemia -Cardiology following CORAZON SERVIN DO May 19, 2018 10:28
--- NOTE | 2018-05-19 12:28 | Wound Care Assessment ---
Wound Care Assessment Date Seen by Provider: May 19, 2018 Time Seen by Provider: 12:25 Chief Complaint Sacral ulcers. HPI The patient is a 67 year old female with moisture associated skin damage to the sacral area. Hygiene, repositioning, and barrier cream ordered. Smoking Status: Unknown if Ever Smoked Recreational Drug Use: No Alcohol Use: Denies Use Exam Vital Signs Date Time Temp Pulse Resp B/P (MAP) Pulse Ox O2 Delivery O2 Flow Rate FiO2 05/19/18 11:33 Nasal Cannula 3.00 05/19/18 08:00 97.3 82 20 120/56 (77) 90 05/17/18 18:38 36 Capillary Refill : Less Than 3 Seconds Results Laboratory Tests 05/18/18 14:15: Stool Occult Blood Immunoassay POSITIVEH 05/18/18 19:47: Glucometer 184H 05/18/18 20:55: Glucometer 160H 05/18/18 23:39: Glucometer 138H 05/19/18 05:07: Glucometer 123H 05/19/18 06:20: White Blood Count 9.7, Red Blood Count 2.56L, Hemoglobin 7.1L, Hematocrit 25L, Mean Corpuscular Volume 96, Mean Corpuscular Hemoglobin 28, Mean Corpuscular Hemoglobin Concent 29L, Red Cell Distribution Width 17.3H, Platelet Count 375, Mean Platelet Volume 8.7, Neutrophils (%) (Auto) 73, Lymphocytes (%) (Auto) 14, Monocytes (%) (Auto) 12, Eosinophils (%) (Auto) 1, Basophils (%) (Auto) 0, Neutrophils # (Auto) 7.1, Lymphocytes # (Auto) 1.4, Monocytes # (Auto) 1.2H, Eosinophils # (Auto) 0.1, Basophils # (Auto) 0.0, Sodium Level 141, Potassium Level 4.2, Chloride Level 101, Carbon Dioxide Level 29, Anion Gap 11, Blood Urea Nitrogen 71H, Creatinine 2.11H, Estimat Glomerular Filtration Rate 24, BUN/ Creatinine Ratio 34, Glucose Level 112H, Calcium Level 9.8, Corrected Calcium 10.9H, Phosphorus Level 4.0, Magnesium Level 2.1, Total Bilirubin 0.2, Aspartate Amino Transf (AST/SGOT) 25, Alanine Aminotransferase (ALT/SGPT) 39, Alkaline Phosphatase 218H, Total Protein 6.3L, Albumin 2.6L 05/19/18 11:25: Glucometer 124H Microbiology 05/17/18 Blood Culture - Preliminary, Resulted No growth 05/17/18 MRSA Screen - Final, Complete 05/17/18 Urine Culture - Preliminary, Resulted Escherichia coli Enterococcus faecium Microbiology 05/17/18 MRSA Screen - Final, Complete 05/17/18 Influenza Types A,B Antigen (CARMELA) - Final, Complete 05/17/18 Urine Culture - Preliminary, Resulted Escherichia coli Enterococcus faecium CHARLY KAPOOR MD May 19, 2018 12:28
[2018-05-19] MEDS: cefTRIAXone 1 GM/NS 50 ML IVPB IV SCH ×2 (13:30)
[2018-05-19] MEDS ORDERED: ZINC OXIDE 16% OINT (BUTT PASTE) 113 GM TUBE TOP PRN (13:45)
--- NOTE | 2018-05-19 15:10 | Progress Note-Cardiology ---
Cardiology SOAP Progress Note Subjective: Somnolent. Wakes up briefly when we ask her questions. Does not report cp or palp or shortness of breath Objective: I&O/Vital Signs 05/19/18 05/19/18 05/19/18 05/19/18 04:00 04:12 04:13 07:10 Temp 97.4 Pulse 73 72 Resp 18 13 B/P (MAP) 120/60 (80) Pulse Ox 93 99 92 O2 Delivery NIV Bilevel Nasal Cannula Nasal Cannula O2 Flow Rate 4.00 35.00 3.00 3.00 05/19/18 05/19/18 05/19/18 08:00 08:00 11:33 Temp 97.3 Pulse 82 Resp 20 B/P (MAP) 120/56 (77) Pulse Ox 90 O2 Delivery NIV Bilevel Nasal Cannula Nasal Cannula O2 Flow Rate 4.00 4.00 3.00 05/19/18 00:00 Intake Total 1420 ml Output Total 825 ml Balance 595 ml Weight (Pounds): 326 Weight (Ounces): 3.0 Weight (Calculated Kilograms): 147.717815 Constitutional: well-developed, well-nourished, other (somnolent, does not answer questions of orientation) Respiratory: other (Air entry diminished at the bases; prolonged exp phase) Cardiovascular: regular rate-rhythm, S1 and S2, systolic murmur (soft ALEC at card base) Gastrointestional: No tender, No guarding, No rebound; audible bowel sounds Extremities: other (mod bilat leg swelling); No clubbing, No cyanosis Neurologic/Psychiatric: other (See above for mental status exam; seems to be able to move all limbs equally) Skin: normal color, warm/dry Results/Procedures: Labs Laboratory Tests 05/18/18 19:47: Glucometer 184H 05/18/18 20:55: Glucometer 160H 05/18/18 23:39: Glucometer 138H 05/19/18 05:07: Glucometer 123H 05/19/18 06:20: White Blood Count 9.7, Red Blood Count 2.56L, Hemoglobin 7.1L, Hematocrit 25L, Mean Corpuscular Volume 96, Mean Corpuscular Hemoglobin 28, Mean Corpuscular Hemoglobin Concent 29L, Red Cell Distribution Width 17.3H, Platelet Count 375, Mean Platelet Volume 8.7, Neutrophils (%) (Auto) 73, Lymphocytes (%) (Auto) 14, Monocytes (%) (Auto) 12, Eosinophils (%) (Auto) 1, Basophils (%) (Auto) 0, Neutrophils # (Auto) 7.1, Lymphocytes # (Auto) 1.4, Monocytes # (Auto) 1.2H, Eosinophils # (Auto) 0.1, Basophils # (Auto) 0.0, Sodium Level 141, Potassium Level 4.2, Chloride Level 101, Carbon Dioxide Level 29, Anion Gap 11, Blood Urea Nitrogen 71H, Creatinine 2.11H, Estimat Glomerular Filtration Rate 24, BUN/ Creatinine Ratio 34, Glucose Level 112H, Calcium Level 9.8, Corrected Calcium 10.9H, Phosphorus Level 4.0, Magnesium Level 2.1, Total Bilirubin 0.2, Aspartate Amino Transf (AST/SGOT) 25, Alanine Aminotransferase (ALT/SGPT) 39, Alkaline Phosphatase 218H, Total Protein 6.3L, Albumin 2.6L 05/19/18 11:25: Glucometer 124H Microbiology 05/17/18 Blood Culture - Preliminary, Resulted No growth 05/17/18 MRSA Screen - Final, Complete 05/17/18 Urine Culture - Preliminary, Resulted Escherichia coli Enterococcus faecium A/P: Assessment: Ac mental status changes and ac resp failure, improving Elevated troponin likely to hypoxia due to ac resp failure and due to ac on ch renal failure; elevated BNP likely due to renal and resp failure H/o bradycardic cardiac arrest in October 2017, likely related to metabolic and electrolyte abnormalities Acute on chronic renal failure, acute component possibly due to intravascular vol depletion, chronic component likely due to DM II H/o severe hypertension. Hospitalization with hypertensive encephalopathy in late September 2017 (managed by Dr Pedro) Coronary artery disease with a history of coronary stenting in early [address] Hairston. The patient is stated to have received Promus 2.25 x 32 mm stent in the distal left anterior descending and Promus 2.25 x 28 mm stent in the left circumflex. These stents were patent on last cath of 03/25/14, but she underwent additional stenting: distal LAD with MiniVision 2x12 and proximal first diagonal with Promus Mike 2.5x12. The RCA was dominant and with mild plaques at the time of last cath of 03/25/14. LVEDP was mildly elevated. Last MPI of 03/22/16 showed no evidence of myocard ischemia or infarction, normal wall motion and LVEF 65%. Echo of 03/21/16 was a technically difficult study, but showed LVEF 65%, trivial to mild MR & TR, mild AoV sclerosis w/o stenosis, PASP WNL H/o osteomyelitis of the R great toe managed by Dr Alex of the [facility] in [place], [place] Normal ABIs on 02/24/16 Carotid arterial disease with history of right carotid endarterectomy. Last carotid ultrasound of 07/24/17 showed 60-79% R ICA and less than 40% L ICA stenoses Maturity onset diabetes mellitus. Hyperlipidemia being treated with atorvastatin. Chronic kidney disease, stage IV, being managed by Dr Sarmad Varghese. Chronic anemia, likely related to chronic kidney disease, managed by Dr Augustin. UTI. H/o urinary tract infections, being managed by her pcp History of chronic, recurrent deep venous thrombosis. History of inferior vena cava placement by Dr. Duvall in September 2011. History of left venous port placement by Dr. Duvall. The patient is a [employer] and does not wish to ever receive any blood transfusions and is not, therefore, considered an ideal candidate for oral anticoagulation Chronic leg swelling and stasis dermatitis, likely related to venous insufficiency and calcium channel donna therapy, unchanged Obesity with hypoventilation syndrome; BMI 52.5 Sleep apnea syndrome, being managed by Dr Fernandez Plan: * Complex management due to multiple comorbidities * She appears to have more edema today. iv fluids d/c'd * Monitor labs TRELL GERONIMO MD FACP FAC CCDS May 19, 2018 15:10
--- NOTE | 2018-05-19 17:45 | NUR ---
NOTE THAT EVENING BS WS 48 -- PT WAS GIVEN ORANGE JUICE AND MILK AND DINNER WAS ORDERED -- HELD [address] DOTSON WAS CALLED AND ADVISED -- HE WAS FINE WITH THAT
[2018-05-19] MEDS: ROSUVASTATIN 20 MG (CRESTOR) TABLET PO SCH (20:51)
[2018-05-20] MEDS: RT-ALBUTEROL/IPRATROPIUM 3 ML (DUONEB) VIAL INH SCH ×4 (01:33→19:16)
[2018-05-20 04:00] VITALS: BP 139/70
[2018-05-20 05:12] LABS: BASOPHILS % (AUTO) 0 % (0-10); EOSINOPHILS # (AUTO) 0.1 10^3/uL (0.0-0.3); EOSINOPHILS % (AUTO) 1 % (0-10); HEMATOCRIT 24 % (35-52); LYMPHOCYTES # (AUTO) 1.3 X 10^3 (1.0-4.0); LYMPHOCYTES % (AUTO) 14 % (12-44); MEAN CORPUSCULAR HEMOGLOBIN 27 PG (25-34); MEAN CORPUSCULAR HGB CONC 28 G/DL (32-36); MEAN CORPUSCULAR VOLUME 97 FL (80-99); MEAN PLATELET VOLUME 9.2 FL (7.4-10.4); MONOCYTES # (AUTO) 1.1 X 10^3 (0.0-1.0); MONOCYTES % (AUTO) 12 % (0-12); NEUTROPHILS % (AUTO) 73 % (42-75); PLATELET COUNT 356 10^3/uL (130-400); RED CELL DISTRIBUTION WIDTH 17.3 % (10.0-14.5); WHITE BLOOD COUNT 9.6 10^3/uL (4.3-11.0)
[2018-05-20 05:16] LABS: HEMOGLOBIN 6.8 G/DL (11.5-16.0)
[2018-05-20 05:35] LABS: ALBUMIN 2.5 GM/DL (3.2-4.5); BILIRUBIN,TOTAL 0.2 MG/DL (0.1-1.0); CALCIUM 10.1 MG/DL (8.5-10.1); CREATININE SERUM 2.24 MG/DL (0.60-1.30); MAGNESIUM 2.2 MG/DL (1.8-2.4); PHOSPHORUS 4.5 MG/DL (2.3-4.7); POTASSIUM 4.4 MMOL/L (3.6-5.0); TOTAL PROTEIN 6.2 GM/DL (6.4-8.2)
--- NOTE | 2018-05-20 05:45 | NUR ---
PT IS NOT EATING WELL. AM INSULIN NOT GIVEN.
[2018-05-20] MEDS: inSUlin ASPART (NovoLOG) 1 UNIT/0.01 ML (CHARGE PER UNIT) SC SCH ×3 (05:46→16:45)
[2018-05-20] MEDS: MULTIVIT W/MINERALS TAB (THERAGRAN M) PO SCH (06:31)
[2018-05-20] MEDS: FERROUS SULF 325 MG (IRON) TAB PO SCH ×2 (06:31→16:45)
[2018-05-20] MEDS: LACTULOSE SYRUP 10GM/15ML (ENULOSE) 30ML UDC PO SCH ×2 (07:59→19:27)
[2018-05-20 08:00] VITALS: BP 121/56
[2018-05-20] MEDS: MAGNESIUM OXIDE (MAG-OX)400 MG TAB PO SCH (08:11)
[2018-05-20] MEDS: TORSEMIDE 20 MG (DEMADEX) TAB PO SCH ×2 (08:11→20:47)
[2018-05-20] MEDS: CLOPIDOGREL 75 MG (PLAVIX) TABLET PO SCH (08:11)
[2018-05-20] MEDS: ASPIRIN 81 MG CHEW (CHILDREN'S ASA) PO SCH (08:12)
[2018-05-20] MEDS: meTOprolol TARTRATE 25 MG (LOPRESSOR) TABLET PO SCH ×3 (08:12→20:47)
[2018-05-20] MEDS: GABAPENTIN 100 MG (NEURONTIN) CAP PO SCH ×3 (08:12→20:47)
[2018-05-20] MEDS: hydrALAZINE (APRESOLINE) 25 MG TAB PO SCH ×3 (08:13→20:48)
[2018-05-20] MEDS: cloNIDine 0.1 MG (CATAPRES) TAB PO SCH ×2 (08:15→20:47)
[2018-05-20] MEDS: inSUlin DETERMIR 1 UNIT/0.01 ML (LEVEMIR) CHARGE PER UNIT SQ SCH ×2 (08:17→20:48)
--- NOTE | 2018-05-20 08:34 | Progress Note (SOAP) ---
Subjective Subjective/Events-last exam Patient lying comfortably in bed. She does not voice any pain. She is eating well. She doesn't desire Umanzor catheter. She is not lightheaded. Review of Systems Date Seen by Provider: May 20, 2018 Time Seen by Provider: 07:20 Focused Exam Lactate Level 05/17/18 12:13: Lactic Acid Level 0.73 Time of Focused Exam: 13:10 Objective Exam Last Set of Vital Signs Vital Signs Date Time Temp Pulse Resp B/P (MAP) Pulse Ox O2 Delivery O2 Flow Rate FiO2 05/20/18 06:20 75 97 35 05/20/18 06:16 23 35.00 05/20/18 04:00 98.7 139/70 (93) NIV Bilevel Capillary Refill : Less Than 3 Seconds I&O Intake and Output 05/20/18 00:00 Intake Total 2180 ml Output Total 2175 ml Balance 5 ml Intake Oral 2130 ml IV Total 50 ml Output Urine Total 2175 ml # Bowel Movements 6 General: No Acute Distress Lungs: Clear to Auscultation Heart: Regular Rate Abdomen: Soft Neuro: Normal Speech Results/Procedures Lab Laboratory Tests 05/19/18 11:25: Glucometer 124H 05/19/18 17:50: Glucometer 48*L 05/19/18 19:10: Glucometer 86 05/19/18 20:53: Glucometer 134H 05/20/18 00:16: Glucometer 157H 05/20/18 04:24: Glucometer 156H 05/20/18 04:30: White Blood Count 9.6, Red Blood Count 2.50L, Hemoglobin 6.8*L, Hematocrit 24L, Mean Corpuscular Volume 97, Mean Corpuscular Hemoglobin 27, Mean Corpuscular Hemoglobin Concent 28L, Red Cell Distribution Width 17.3H, Platelet Count 356, Mean Platelet Volume 9.2, Neutrophils (%) (Auto) 73, Lymphocytes (%) (Auto) 14, Monocytes (%) (Auto) 12, Eosinophils (%) (Auto) 1, Basophils (%) (Auto) 0, Neutrophils # (Auto) 7.0, Lymphocytes # (Auto) 1.3, Monocytes # (Auto) 1.1H, Eosinophils # (Auto) 0.1, Basophils # (Auto) 0.0, Sodium Level 140, Potassium Level 4.4, Chloride Level 100, Carbon Dioxide Level 29, Anion Gap 11, Blood Urea Nitrogen 71H, Creatinine 2.24H, Estimat Glomerular Filtration Rate 22, BUN/ Creatinine Ratio 32, Glucose Level 139H, Calcium Level 10.1, Corrected Calcium 11.3H, Phosphorus Level 4.5, Magnesium Level 2.2, Total Bilirubin 0.2, Aspartate Amino Transf (AST/SGOT) 34, Alanine Aminotransferase (ALT/SGPT) 33, Alkaline Phosphatase 215H, Total Protein 6.2L, Albumin 2.5L Microbiology 05/17/18 Blood Culture - Preliminary, Resulted No growth 05/17/18 MRSA Screen - Final, Complete 05/17/18 Urine Culture - Preliminary, Resulted Escherichia coli Enterococcus faecium Radiology Date of Exam: 05/18/18 CHEST 1 VIEW, AP/PA ONLY INDICATION: Respiratory failure. Portable chest 3:58 AM FINDINGS: Right IJ central line tip projects over the SVC. Heart size and pulmonary vascularity are normal. There is some bilateral perihilar infiltrate or atelectasis. IMPRESSION: Bilateral perihilar infiltrate and/or atelectasis. No significant change from previous day. Date of Exam: 05/17/18 CHEST 1 VIEW, AP/PA ONLY INDICATION: Hypoxia. EXAMINATION: Frontal chest obtained at 12:13 p.m. and compared with 04/22/2018. FINDINGS: Heart is mildly enlarged. There is central vascular congestion. There are patchy bilateral basilar infiltrates which appear chronic or unchanged compared to the prior study. There is no pneumothorax or gross pleural fluid. Port-A-Cath is unchanged. IMPRESSION: There are unchanged bilateral basilar infiltrates when compared to the previous study of 04/22/2018. There is no new abnormality. There is cardiomegaly. Date of Exam: 05/17/18 CT HEAD WO-R/O STROKE PROCEDURE: CT head wo r/o stroke. TECHNIQUE: Multiple contiguous axial images were obtained through the brain without the use of intravenous contrast. INDICATION: Fever and decreased level of consciousness. COMPARISON: Correlation is made with prior head CT from 08/18/2017. FINDINGS: Ventricles and sulci appear stable when compared with prior exam. Moderate periventricular hypodensity is noted, consistent with changes of chronic microvascular ischemia. No sulcal effacement is seen. There is no midline shift. No acute intra-axial or extra-axial hemorrhage is detected. Cisterns are patent. Visualized paranasal sinuses are clear. There is opacification of the right mastoid air cells suggestive of right mastoid effusion. IMPRESSION: Stable chronic changes when compared with exam from 08/18/2017. No acute intracranial process is detected. Dr. Benson of the emergency department was notified of these results prior to this dictation. Assessment/Plan Assessment/Plan Assessment & Plan Hypoxia -etiology obesity hypoventilation syndrome (most likely) vs. infection -hospitalized two times in April 2018 for hypoxia and UTI -on O2 (AM) and Bipap (PM) at custodial -work up: -respiratory acidosis with metabolic compensation, chronic -ABG improving, trending in the right direction -afebrile, no leukocytosis -CXR shows bibasilar perihilar infiltrates, stable from imaging 04/22 -flu swab negative Plan -on O2 now -albuterol/ipratropirum PRN -patient improving, will transfer to floor status UTI -UA LE 3+, WBC >100, moderate bacteria -f/u UCx -receiving ceftriaxone IV (05/17- ) Chronic Anemia -DDx iron deficiency anemia vs. anemia of chronic disease vs. combination of the two -receiving iron PO -Hgb over last two admission is 7-8.3; Hgb up to 9-10 in February 2018 -f/u stool occult blood -continue to monitor, patient has a history of iron transfusions HTN -receiving metoprolol tartrate Diabetes Mellitus -BS <180 since admission -not requiring SSI since admission CKD -baseline 2-2.5; patient Cr at baseline today -continue to monitor Functional Disability -receiving PT/OT -patient states she has wound on her bottom, will consult wound team (1) Wound of sacral region Status: Acute Assessment & Plan: Present on admission, wound care consulted. 05/19 -Wound care has been consult and should see most likely today. (2) Acute and chronic respiratory failure with hypoxia Status: Acute Assessment & Plan: Acute on chronic hypoxic, hypercapneic respiratory failure possibly secondary to AMS related to UTI. Improved with Bipap and increased FiO2 overnight, now stable on nasal cannula. Pulmonology consulted, appreciate recommendations. 05/19 -She appears to be without any respiratory status distress and breathing comfortably (3) Iron deficiency anemia Status: Chronic Assessment & Plan: Sees Hematology outpatient, [employer] does not want blood transfusions, has been on IV iron in past. Stool occult blood pending due to worsened anemia. 05/19 -Hemoglobin stable at 7.1 this morning. 05/20 -Hemoglobin this morning was 6.8 compared to 7.1 yesterday. She was made aware of this and again due to her muslim belief she does not desire any blood products. At this time this appears to be safe she is asymptomatic. Plan on rechecking CBC in the morning. (4) Altered mental status Status: Resolved Assessment & Plan: Suspect multifactorial due to hypercapnea, hypoxia and UTI. Resolved this morning. 05/19 -Mental status markedly improved today Qualifiers: Qualified Codes: R41.82 - Altered mental status, unspecified (5) Urinary tract infection Status: Acute Assessment & Plan: Started on IV ceftriaxone, previous urine culture with resistance only to ampicillin. F/U urine culture. 05/19 -Patient continues with IV Rocephin daily. -Urine culture had gram-negative bacteria 05/20 -Urine culture reveals Escherichia coli sensitive to Rocephin -Will DC Umanzor catheter. She does wear Depends when at custodial Qualifiers: Qualified Codes: N39.0 - Urinary tract infection, site not specified (6) Elevated troponin Status: Acute Assessment & Plan: Cardiology consulted, appreciate recommendations. Asymptomatic, suspect hypoxia and CKD as etiology. (7) Hypertension Status: Chronic Assessment & Plan: Resume home medications Qualifiers: Qualified Codes: I10 - Essential (primary) hypertension (8) CKD (chronic kidney disease) stage 4, GFR 15-29 ml/min Status: Chronic Assessment & Plan: Stable, monitor closely 05/20 -Plan on checking creatinine in the a.m. 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 Sliding scale insulin as needed. (10) Obesity hypoventilation syndrome Status: Chronic Assessment & Plan: On bipap at night at home, continue inpatient. (11) Sleep apnea with use of nocturnal bilevel positive airway pressure (BPAP) Status: Chronic (12) Unable to ambulate Status: Chronic Assessment & Plan: Has not ambulated since the cardiac arrest and recovery she experienced in October 2017. ND uses a lift for transfers from bed to wheelchair. (13) Hyperkalemia Status: Resolved (14) DVT prophylaxis Status: Acute Assessment & Plan: Is high risk for DVT with history of DVT and IVC filter and multiple other risk factors. However, she has significant anemia and will not accept blood transfusions and requires antiplatelet therapy for her CAD. Will use SCDs only and monitor hemoglobin closely, may be able to start enoxaparin renally dosed if hemoglobin stable. Clinical Quality Measures DVT/VTE Risk/Contraindication: Risk Factor Score Per Nursin RFS Level Per Nursing on Admit: 4+=Very High RUIZ DOTSON MD May 20, 2018 08:34
[2018-05-20 12:00] VITALS: BP 124/56
[2018-05-20] MEDS: cefTRIAXone 1 GM/NS 50 ML IVPB IV SCH ×2 (12:38)
--- NOTE | 2018-05-20 12:39 | Progress Note-Cardiology ---
Cardiology SOAP Progress Note Subjective: No cp or palp Gen malaise No shortness of breath at rest Objective: I&O/Vital Signs 05/20/18 05/20/18 05/20/18 05/20/18 01:33 03:41 04:00 06:16 Temp 98.7 Pulse 75 71 76 75 Resp 23 22 22 23 B/P (MAP) 139/70 (93) Pulse Ox 95 96 100 97 O2 Delivery NIV Bilevel O2 Flow Rate 35.00 35.00 35.00 05/20/18 05/20/18 05/20/18 06:20 08:00 08:00 Temp 97.7 Pulse 75 74 Resp 20 B/P (MAP) 121/56 (77) Pulse Ox 97 97 O2 Delivery NIV Bilevel Nasal Cannula O2 Flow Rate 4.00 FiO2 35 05/20/18 00:00 Intake Total 2180 ml Output Total 1475 ml Balance 705 ml Weight (Pounds): 331 Weight (Ounces): 3.0 Weight (Calculated Kilograms): 150.024317 Constitutional: well-developed, well-nourished, other (somnolent, does not answer questions of orientation) Respiratory: other (Air entry diminished at the bases; prolonged exp phase) Cardiovascular: regular rate-rhythm, S1 and S2, systolic murmur (soft ALEC at card base) Gastrointestional: No tender, No guarding, No rebound; audible bowel sounds Extremities: other (mod bilat leg swelling); No clubbing, No cyanosis Neurologic/Psychiatric: other (See above for mental status exam; seems to be able to move all limbs equally) Skin: normal color, warm/dry Results/Procedures: Labs Laboratory Tests 05/19/18 17:50: Glucometer 48*L 05/19/18 19:10: Glucometer 86 05/19/18 20:53: Glucometer 134H 05/20/18 00:16: Glucometer 157H 05/20/18 04:24: Glucometer 156H 05/20/18 04:30: White Blood Count 9.6, Red Blood Count 2.50L, Hemoglobin 6.8*L, Hematocrit 24L, Mean Corpuscular Volume 97, Mean Corpuscular Hemoglobin 27, Mean Corpuscular Hemoglobin Concent 28L, Red Cell Distribution Width 17.3H, Platelet Count 356, Mean Platelet Volume 9.2, Neutrophils (%) (Auto) 73, Lymphocytes (%) (Auto) 14, Monocytes (%) (Auto) 12, Eosinophils (%) (Auto) 1, Basophils (%) (Auto) 0, Neutrophils # (Auto) 7.0, Lymphocytes # (Auto) 1.3, Monocytes # (Auto) 1.1H, Eosinophils # (Auto) 0.1, Basophils # (Auto) 0.0, Sodium Level 140, Potassium Level 4.4, Chloride Level 100, Carbon Dioxide Level 29, Anion Gap 11, Blood Urea Nitrogen 71H, Creatinine 2.24H, Estimat Glomerular Filtration Rate 22, BUN/ Creatinine Ratio 32, Glucose Level 139H, Calcium Level 10.1, Corrected Calcium 11.3H, Phosphorus Level 4.5, Magnesium Level 2.2, Total Bilirubin 0.2, Aspartate Amino Transf (AST/SGOT) 34, Alanine Aminotransferase (ALT/SGPT) 33, Alkaline Phosphatase 215H, Total Protein 6.2L, Albumin 2.5L 05/20/18 11:41: Glucometer 228H Microbiology 05/17/18 Blood Culture - Preliminary, Resulted No growth 05/17/18 MRSA Screen - Final, Complete 05/17/18 Urine Culture - Final, Complete Escherichia coli Enterococcus faecium Laboratory Tests 05/19/18 06:20 05/20/18 04:30 A/P: Assessment: Severe anemia of undetermined etiology, worsening, managed by the [facility] mental status changes and ac resp failure, improving The patient is a Jehovahs Witness and does not wish to ever receive any blood transfusions and is not, therefore, considered an ideal candidate for oral anticoagulation Elevated troponin likely to hypoxia due to ac resp failure and due to ac on ch renal failure; elevated BNP likely due to renal and resp failure H/o bradycardic cardiac arrest in October 2017, likely related to metabolic and electrolyte abnormalities Acute on chronic renal failure, acute component possibly due to intravascular vol depletion, chronic component likely due to DM II H/o severe hypertension. Hospitalization with hypertensive encephalopathy in late September 2017 Coronary artery disease with a history of coronary stenting in early [address] Hairston. The patient is stated to have received Promus 2.25 x 32 mm stent in the distal left anterior descending and Promus 2.25 x 28 mm stent in the left circumflex. These stents were patent on last cath of 03/25/14, but she underwent additional stenting: distal LAD with MiniVision 2x12 and proximal first diagonal with Promus Mike 2.5x12. The RCA was dominant and with mild plaques at the time of last cath of 03/25/14. LVEDP was mildly elevated. Last MPI of 03/22/16 showed no evidence of myocard ischemia or infarction, normal wall motion and LVEF 65%. Echo of 03/21/16 was a technically difficult study, but showed LVEF 65%, trivial to mild MR & TR, mild AoV sclerosis w/o stenosis, PASP WNL H/o osteomyelitis of the R great toe managed by Dr Alex of the [facility] in [place], [place] Normal ABIs on 02/24/16 Carotid arterial disease with history of right carotid endarterectomy. Last carotid ultrasound of 07/24/17 showed 60-79% R ICA and less than 40% L ICA stenoses Maturity onset diabetes mellitus. Hyperlipidemia being treated with atorvastatin. Chronic kidney disease, stage IV, being managed by Dr Sarmad Varghese. Chronic anemia, likely related to chronic kidney disease, managed by Dr Augustin. UTI. H/o urinary tract infections, being managed by her pcp History of chronic, recurrent deep venous thrombosis. History of inferior vena cava placement by Dr. Duvall in September 2011. History of left venous port placement by Dr. Duvall. Chronic leg swelling and stasis dermatitis, likely related to venous insufficiency and calcium channel donna therapy, unchanged Obesity with hypoventilation syndrome; BMI approx 55 Sleep apnea syndrome, being managed by Dr Fernandez Plan: * Complex management due to multiple comorbidities * Monitor labs TRELL GERONIMO MD FACP F[facility] CCDS May 20, 2018 12:39
[2018-05-20 16:05] VITALS: BP 142/65
[2018-05-20 20:05] VITALS: BP 155/68
[2018-05-20] MEDS: LINEZOLID IVPB 300 ML IV SCH (20:47)
[2018-05-20] MEDS: ROSUVASTATIN 20 MG (CRESTOR) TABLET PO SCH (20:47)
[2018-05-21 00:55] VITALS: BP 142/64
[2018-05-21] MEDS: RT-ALBUTEROL/IPRATROPIUM 3 ML (DUONEB) VIAL INH SCH ×4 (01:31→19:51)
[2018-05-21 04:45] VITALS: BP 136/61
[2018-05-21] MEDS: FERROUS SULF 325 MG (IRON) TAB PO SCH ×2 (06:06→17:12)
[2018-05-21] MEDS: inSUlin ASPART (NovoLOG) 1 UNIT/0.01 ML (CHARGE PER UNIT) SC SCH ×3 (06:06→17:12)
[2018-05-21] MEDS: MULTIVIT W/MINERALS TAB (THERAGRAN M) PO SCH (06:06)
[2018-05-21 06:20] LABS: BASOPHILS % (AUTO) 0 % (0-10); EOSINOPHILS # (AUTO) 0.1 10^3/uL (0.0-0.3); EOSINOPHILS % (AUTO) 1 % (0-10); HEMATOCRIT 23 % (35-52); LYMPHOCYTES % (AUTO) 10 % (12-44); MEAN CORPUSCULAR HEMOGLOBIN 27 PG (25-34); MEAN CORPUSCULAR HGB CONC 29 G/DL (32-36); MEAN CORPUSCULAR VOLUME 95 FL (80-99); MEAN PLATELET VOLUME 8.7 FL (7.4-10.4); MONOCYTES # (AUTO) 1.1 X 10^3 (0.0-1.0); MONOCYTES % (AUTO) 11 % (0-12); NEUTROPHILS # (AUTO) 7.8 X 10^3 (1.8-7.8); NEUTROPHILS % (AUTO) 78 % (42-75); PLATELET COUNT 368 10^3/uL (130-400); RED BLOOD COUNT 2.47 10^6/uL (4.35-5.85); RED CELL DISTRIBUTION WIDTH 17.1 % (10.0-14.5)
[2018-05-21 06:33] LABS: HEMOGLOBIN 6.7 G/DL (11.5-16.0)
[2018-05-21 06:43] LABS: ALBUMIN 2.5 GM/DL (3.2-4.5); BILIRUBIN,TOTAL 0.2 MG/DL (0.1-1.0); CALCIUM 9.8 MG/DL (8.5-10.1); CREATININE SERUM 2.1 MG/DL (0.60-1.30); MAGNESIUM 1.9 MG/DL (1.8-2.4); PHOSPHORUS 4.1 MG/DL (2.3-4.7); POTASSIUM 4.2 MMOL/L (3.6-5.0); TOTAL PROTEIN 6.1 GM/DL (6.4-8.2)
[2018-05-21] MEDS: LACTULOSE SYRUP 10GM/15ML (ENULOSE) 30ML UDC PO SCH ×2 (07:42→21:49)
[2018-05-21] MEDS: meTOprolol TARTRATE 25 MG (LOPRESSOR) TABLET PO SCH ×2 (07:48→21:48)
[2018-05-21] MEDS: hydrALAZINE (APRESOLINE) 25 MG TAB PO SCH ×3 (07:48→21:48)
[2018-05-21] MEDS: MAGNESIUM OXIDE (MAG-OX)400 MG TAB PO SCH (07:48)
[2018-05-21] MEDS: ASPIRIN 81 MG CHEW (CHILDREN'S ASA) PO SCH (07:48)
[2018-05-21] MEDS: LINEZOLID IVPB 300 ML IV SCH (07:48)
[2018-05-21] MEDS: cloNIDine 0.1 MG (CATAPRES) TAB PO SCH ×2 (07:49→21:48)
[2018-05-21] MEDS: inSUlin DETERMIR 1 UNIT/0.01 ML (LEVEMIR) CHARGE PER UNIT SQ SCH ×2 (07:49→21:48)
[2018-05-21] MEDS: GABAPENTIN 100 MG (NEURONTIN) CAP PO SCH ×3 (07:49→21:48)
[2018-05-21] MEDS: TORSEMIDE 20 MG (DEMADEX) TAB PO SCH ×2 (07:49→21:49)
[2018-05-21] MEDS: CLOPIDOGREL 75 MG (PLAVIX) TABLET PO SCH (07:49)
[2018-05-21 08:00] VITALS: BP 126/58
--- NOTE | 2018-05-21 09:25 | Progress Note-Cardiology ---
Cardiology SOAP Progress Note Subjective: In bed. C/O fatigue. C/O some SOB. No c/o palpitations. Objective: I&O/Vital Signs 05/21/18 05/21/18 05/21/18 05/21/18 04:45 08:00 08:00 09:22 Temp 98.1 97.7 Pulse 73 74 Resp 20 18 B/P (MAP) 136/61 (86) 126/58 (80) Pulse Ox 97 94 85 O2 Delivery NIV Bilevel Nasal Cannula Nasal Cannula Nasal Cannula O2 Flow Rate 4.00 4.00 2.00 05/21/18 12:19 Temp 96.6 Pulse 76 Resp 19 B/P (MAP) 121/58 (79) Pulse Ox 96 O2 Delivery Nasal Cannula O2 Flow Rate 4.00 05/21/18 00:00 Intake Total 1820 ml Output Total 2350 ml Balance -530 ml Weight (Pounds): 229 Weight (Ounces): 14.4 Weight (Calculated Kilograms): 104.888973 Constitutional: well-developed, well-nourished, other (somnolent, does not answer questions of orientation) Respiratory: other (Air entry diminished at the bases; prolonged exp phase) Cardiovascular: regular rate-rhythm, S1 and S2, systolic murmur (soft ALEC at card base) Gastrointestional: No tender, No guarding, No rebound; audible bowel sounds Extremities: other (mod bilat leg swelling); No clubbing, No cyanosis Neurologic/Psychiatric: other (See above for mental status exam; seems to be able to move all limbs equally) Skin: normal color, warm/dry Results/Procedures: Labs Laboratory Tests 05/20/18 16:05: Glucometer 199H 05/20/18 20:40: Glucometer 218H 05/21/18 05:38: Glucometer 174H 05/21/18 06:10: White Blood Count 10.0, Red Blood Count 2.47L, Hemoglobin 6.7*L, Hematocrit 23L , Mean Corpuscular Volume 95, Mean Corpuscular Hemoglobin 27, Mean Corpuscular Hemoglobin Concent 29L, Red Cell Distribution Width 17.1H, Platelet Count 368, Mean Platelet Volume 8.7, Neutrophils (%) (Auto) 78H, Lymphocytes (%) (Auto) 10L , Monocytes (%) (Auto) 11, Eosinophils (%) (Auto) 1, Basophils (%) (Auto) 0, Neutrophils # (Auto) 7.8, Lymphocytes # (Auto) 1.0, Monocytes # (Auto) 1.1H, Eosinophils # (Auto) 0.1, Basophils # (Auto) 0.0, Sodium Level 138, Potassium Level 4.2, Chloride Level 98, Carbon Dioxide Level 31, Anion Gap 9, Blood Urea Nitrogen 69H, Creatinine 2.10H, Estimat Glomerular Filtration Rate 24, BUN/ Creatinine Ratio 33, Glucose Level 151H, Calcium Level 9.8, Corrected Calcium 11.0H, Phosphorus Level 4.1, Magnesium Level 1.9, Total Bilirubin 0.2, Aspartate Amino Transf (AST/SGOT) 24, Alanine Aminotransferase (ALT/SGPT) 28, Alkaline Phosphatase 238H, Total Protein 6.1L, Albumin 2.5L 05/21/18 10:35: Glucometer 174H Microbiology 05/17/18 Blood Culture - Preliminary, Resulted No growth 05/17/18 MRSA Screen - Final, Complete 05/17/18 Urine Culture - Final, Complete Escherichia coli Enterococcus faecium A/P: Assessment: Severe anemia of undetermined etiology, worsening, managed by the [facility] mental status changes and ac resp failure, improving The patient is a Jehovahs Witness and does not wish to ever receive any blood transfusions and is not, therefore, considered an ideal candidate for oral anticoagulation Elevated troponin likely to hypoxia due to ac resp failure and due to ac on ch renal failure; elevated BNP likely due to renal and resp failure H/o bradycardic cardiac arrest in October 2017, likely related to metabolic and electrolyte abnormalities Acute on chronic renal failure, acute component possibly due to intravascular vol depletion, chronic component likely due to DM II H/o severe hypertension. Hospitalization with hypertensive encephalopathy in late September 2017 Coronary artery disease with a history of coronary stenting in early [address] Hairston. The patient is stated to have received Promus 2.25 x 32 mm stent in the distal left anterior descending and Promus 2.25 x 28 mm stent in the left circumflex. These stents were patent on last cath of 03/25/14, but she underwent additional stenting: distal LAD with MiniVision 2x12 and proximal first diagonal with Promus Mike 2.5x12. The RCA was dominant and with mild plaques at the time of last cath of 03/25/14. LVEDP was mildly elevated. Last MPI of 03/22/16 showed no evidence of myocard ischemia or infarction, normal wall motion and LVEF 65%. Echo of 03/21/16 was a technically difficult study, but showed LVEF 65%, trivial to mild MR & TR, mild AoV sclerosis w/o stenosis, PASP WNL H/o osteomyelitis of the R great toe managed by Dr Alex of the [facility] in [place], [place] Normal ABIs on 02/24/16 Carotid arterial disease with history of right carotid endarterectomy. Last carotid ultrasound of 07/24/17 showed 60-79% R ICA and less than 40% L ICA stenoses Maturity onset diabetes mellitus. Hyperlipidemia being treated with atorvastatin. Chronic kidney disease, stage IV, being managed by Dr Sarmad Varghese. Chronic anemia, likely related to chronic kidney disease, managed by Dr Augustin. UTI. H/o urinary tract infections, being managed by her pcp History of chronic, recurrent deep venous thrombosis. History of inferior vena cava placement by Dr. Duvall in September 2011. History of left venous port placement by Dr. Duvall. Chronic leg swelling and stasis dermatitis, likely related to venous insufficiency and calcium channel donna therapy, unchanged Obesity with hypoventilation syndrome; BMI approx 55 Sleep apnea syndrome, being managed by Dr Fernandez Plan: * Complex management due to multiple comorbidities * Monitor labs * Greater than 4 years since last stent placement. In the presence of worsening anemia and occult (+) stools we will hold ASA and Plavix for now until source of bleeding has been determined. * Refuses blood transfusions d/t baptism preferences Physician Assessment Physician Assessment Notes malaise and weakness and shortness of breath. No cp or palp or syncope Lungs: good air entry, prolonged exp phase Cor: reg Ext: 3+ edema of the legs A&R * As documented in our note above that I updated (italics) and as noted below * Worsening anemia, probably, due to chronic, slow GI bleed. Will hold off on antiplatelet therapy until this issue addressed. We recommend early eval and treatment of this issue CODIE GALLARDO May 21, 2018 09:25 TRELL GERONIMO MD FACP [facility] CCDS May 21, 2018 14:30
--- NOTE | 2018-05-21 10:00 | Progress Note-Hospitalist ---
AC RIVERO 05/21/18 1000: Subjective HPI/CC On Admission Date Seen by Provider: May 21, 2018 Time Seen by Provider: 08:45 Subjective/Events-last exam Patient appears to be very end stage Patient denies any significant issues Pt definitely a hospice candidate Review of Systems Pulmonary: Dyspnea Focused Exam Time of Focused Exam: 13:10 Objective Exam Vital Signs Vital Signs Date Time Temp Pulse Resp B/P (MAP) Pulse Ox O2 Delivery O2 Flow Rate FiO2 05/21/18 09:22 85 Nasal Cannula 2.00 05/21/18 08:00 97.7 74 18 126/58 (80) 05/20/18 06:20 35 Capillary Refill : Less Than 3 Seconds General Appearance: WD/WN, Chronically ill, Mild Distress, Obese Respiratory: Chest Non Tender, Decreased Breath Sounds, Respiratory Distress Neurologic/Psychiatric: Alert, Oriented x3 Skin: Normal Color, Warm/Dry Results/Procedures Lab Laboratory Tests 05/21/18 06:10 Patient resulted labs reviewed. Assessment/Plan Assessment and Plan Assess & Plan/Chief Complaint Assessment: Acute on respiratory failure Hypoxia HTN DM CKD Plan: Needs Hospice NHP at [place] Prognosis poor Diagnosis/Problems Diagnosis/Problems (1) Acute and chronic respiratory failure with hypoxia Status: Acute (2) Altered mental status Status: Resolved Qualifiers: Altered mental status type: unspecified Qualified Codes: R41.82 - Altered mental status, unspecified Resolution Date/Time: 05/18/18 @ 12:13 (3) Urinary tract infection Status: Acute Qualifiers: Urinary tract infection type: site unspecified Hematuria presence: without hematuria Qualified Codes: N39.0 - Urinary tract infection, site not specified (4) Hyperkalemia Status: Resolved Resolution Date/Time: 05/18/18 @ 12:12 (5) Elevated troponin Status: Acute (6) Anemia Status: Chronic Qualifiers: Anemia type: unspecified type Qualified Codes: D64.9 - Anemia, unspecified (7) HLD (hyperlipidemia) Status: Chronic Qualifiers: Hyperlipidemia type: mixed hyperlipidemia Qualified Codes: E78.2 - Mixed hyperlipidemia Clinical Quality Measures DVT/VTE Risk/Contraindication: Risk Factor Score Per Nursin RFS Level Per Nursing on Admit: 4+=Very High CHARLY FORD MEDICAL STUDENT 05/21/18 1123: Subjective Subjective/Events-last exam Pt in bed, complaining of some SOB and weakness/fatigue Hgb 6.7 today, pt Jehovah Witness, refuses transfusions Pt afebrile Objective Exam General Appearance: Mild Distress HEENT: PERRL/EOMI Neck: Full Range of Motion, Normal Inspection Respiratory: Decreased Breath Sounds, Respiratory Distress Cardiovascular: Regular Rate, Rhythm Extremity: Pedal Edema Neurologic/Psychiatric: Alert, Oriented x3 Assessment/Plan Assessment and Plan Assess & Plan/Chief Complaint Assessment: Hypoxia UTI Chronic Anemia HTN DM CKD Plan: On O2, pt had Sat of 85% on 2L today, Continue Duoneb PRN continue ceftriaxone IV for UTI continue home meds for HTN continue to monitor pt's Cr AC RIVERO DO May 21, 2018 10:00 CHARLY FORD MEDICAL STUDENT May 21, 2018 11:23
--- NOTE | 2018-05-21 11:43 | NUR ---
Palliative Care Note: Asked patient permission to sit and visit with her. She reluctantly agreed. She is currently listed as a full code and wishes to remain a full code. We visited about her goals for her care and what she considers to be quality of life. She reports that she does not want to be put on a shelf and forgotten about. She reports that she has a brother and sister in-law and many friends that visit with her at her home location of [facility] et in listening to her, this sounds to be her idea of quality of life. I had noticed that in November a hospice had visited with the patient at [facility] and we also talked about that. She describes that visit as a waste of her time et says "they (hospice) are the ones want to put me on the shelf." Patient only gave one word answers et just appeared to be put out with my visit. I asked her if she was done with my visit et she gave a short "yep." Before I left I got her phone for her and offered to help her order lunch. She denies any needs at this time. F/U with primary care nurse Vicky and she reports that she visited with the patient's DPOA et questioned consideration for hospice d/t her multiple comorbidities et not wanting blood products. The DPOA reports that they are in agreement and have even accompanied the patient to a primary care doctor visit to discuss this but that Elida does not want to consider DNR nor hospice as a support. Elida did report that I could come back and visit her again. Will f/u and just be a presence for Elida if she wants to visit. No further Palliative interventions noted at this time.
[2018-05-21 12:19] VITALS: BP 121/58
[2018-05-21] MEDS: cefTRIAXone 1 GM/NS 50 ML IVPB IV SCH ×2 (12:42)
--- NOTE | 2018-05-21 12:58 | NUR ---
Called et spoke with [facility] to determine if the patient had used any skilled days with them. DOMENICO Unger reports that patient was skilled with them from 04/26-05/17 (21 days used) when she was discharged off and admitted to the hospital. The patient has Medicare as her primary insurance and [employer] as her secondary insurance.
--- NOTE | 2018-05-21 16:43 | Pulmonary Progress Note ---
Sepsis Event Evaluation Height, Weight, BMI Height: 5'5.00" Weight: 229lbs. 14.4oz. 104.671045uy; 52.5 BMI Method:Stated Focused Exam Time of Focused Exam: 13:10 Exam Exam Vital Signs Date Time Temp Pulse Resp B/P (MAP) Pulse Ox O2 Delivery O2 Flow Rate FiO2 05/21/18 15:37 95 Nasal Cannula 4.00 05/21/18 12:19 96.6 76 19 121/58 (79) 96 Nasal Cannula 4.00 05/21/18 09:22 85 Nasal Cannula 2.00 05/21/18 08:00 97.7 74 18 126/58 (80) 94 Nasal Cannula 4.00 05/21/18 08:00 Nasal Cannula 4.00 05/21/18 04:45 98.1 73 20 136/61 (86) 97 NIV Bilevel 05/21/18 01:31 70 25 95 35.00 05/21/18 00:55 97.3 68 23 142/64 (90) 96 NIV Bilevel 05/20/18 23:14 74 25 96 35.00 05/20/18 20:05 98.5 90 22 155/68 (97) 95 Nasal Cannula 4.00 05/20/18 20:00 Nasal Cannula 4.00 05/20/18 19:16 89 Nasal Cannula 3.00 I & O 05/21/18 07:00 Intake Total 1820 ml Output Total 3200 ml Balance -1380 ml Height & Weight Height: 5'5.00" Weight: 229lbs. 14.4oz. 104.482744hs; 52.5 BMI Method:Stated General Appearance: WD/WN, Chronically ill, Mild Distress, Obese HEENT: PERRL/EOMI Neck: Full Range of Motion, Normal Inspection Respiratory: Chest Non Tender, Decreased Breath Sounds, Respiratory Distress Cardiovascular: Regular Rate, Rhythm Capillary Refill: Less Than 3 Seconds Peripheral Pulses: 2+ Radial Pulses (L) Gastrointestinal: normal bowel sounds Extremity: Pedal Edema Neurologic/Psychiatric: Alert, Oriented x3 Skin: Normal Color, Warm/Dry Results Lab Laboratory Tests 05/20/18 04:30 05/21/18 06:10 Assessment/Plan Assessment/Plan Acute on chronic respiratory failure -PRN BIPAP and oxygen -SVNs UTI -bryant culture -Rocephin Anemia -restart Fe, and folate. CKD 4 -IVF, and monitor Hyperkalemia - resolved -Monitor Elevated troponin secondary to hypoxia, Anemia -Cardiology following CORAZON SERVIN DO May 21, 2018 16:43
[2018-05-21 16:45] VITALS: BP 131/69
[2018-05-21 19:44] VITALS: BP 144/80
[2018-05-21] MEDS: ROSUVASTATIN 20 MG (CRESTOR) TABLET PO SCH (21:48)
[2018-05-21] MEDS: LINEZOLID (ZYVOX) 600 MG TAB PO SCH (21:49)
[2018-05-22] MEDS: RT-ALBUTEROL/IPRATROPIUM 3 ML (DUONEB) VIAL INH SCH (03:35)
[2018-05-22 04:10] VITALS: BP 117/69
[2018-05-22 05:37] LABS: BASOPHILS % (AUTO) 0 % (0-10); EOSINOPHILS # (AUTO) 0.1 10^3/uL (0.0-0.3); EOSINOPHILS % (AUTO) 1 % (0-10); HEMATOCRIT 25 % (35-52); HEMOGLOBIN 7.3 G/DL (11.5-16.0); LYMPHOCYTES # (AUTO) 0.9 X 10^3 (1.0-4.0); LYMPHOCYTES % (AUTO) 8 % (12-44); MEAN CORPUSCULAR HEMOGLOBIN 27 PG (25-34); MEAN CORPUSCULAR HGB CONC 29 G/DL (32-36); MEAN CORPUSCULAR VOLUME 95 FL (80-99); MEAN PLATELET VOLUME 8.7 FL (7.4-10.4); MONOCYTES # (AUTO) 1.1 X 10^3 (0.0-1.0); MONOCYTES % (AUTO) 10 % (0-12); NEUTROPHILS # (AUTO) 8.7 X 10^3 (1.8-7.8); NEUTROPHILS % (AUTO) 81 % (42-75); PLATELET COUNT 374 10^3/uL (130-400); RED BLOOD COUNT 2.66 10^6/uL (4.35-5.85); RED CELL DISTRIBUTION WIDTH 16.9 % (10.0-14.5); WHITE BLOOD COUNT 10.8 10^3/uL (4.3-11.0)
[2018-05-22 06:01] LABS: ALBUMIN 2.5 GM/DL (3.2-4.5); BILIRUBIN,TOTAL 0.2 MG/DL (0.1-1.0); CALCIUM 10.3 MG/DL (8.5-10.1); CREATININE SERUM 2.12 MG/DL (0.60-1.30); MAGNESIUM 1.9 MG/DL (1.8-2.4); PHOSPHORUS 4.2 MG/DL (2.3-4.7); POTASSIUM 4.4 MMOL/L (3.6-5.0); TOTAL PROTEIN 6.6 GM/DL (6.4-8.2)
[2018-05-22 06:08] LABS: EOSINOPHILS % (MANUAL) 1 %; LYMPHOCYTES % (MANUAL) 8 %; MONOCYTES % (MANUAL) 8 %; NEUTROPHILS % (MANUAL) 83 %
[2018-05-22 06:09] LABS: HYPOCHROMASIA SLIGHT; POLYCHROMASIA SLIGHT
[2018-05-22] MEDS: FERROUS SULF 325 MG (IRON) TAB PO SCH (06:30)
[2018-05-22] MEDS: MULTIVIT W/MINERALS TAB (THERAGRAN M) PO SCH (06:30)
[2018-05-22] MEDS: inSUlin ASPART (NovoLOG) 1 UNIT/0.01 ML (CHARGE PER UNIT) SC SCH ×2 (06:30→12:29)
[2018-05-22 08:00] VITALS: BP 141/68
[2018-05-22] MEDS: cloNIDine 0.1 MG (CATAPRES) TAB PO SCH (08:38)
[2018-05-22] MEDS: hydrALAZINE (APRESOLINE) 25 MG TAB PO SCH (08:38)
[2018-05-22] MEDS: GABAPENTIN 100 MG (NEURONTIN) CAP PO SCH (08:38)
[2018-05-22] MEDS: LACTULOSE SYRUP 10GM/15ML (ENULOSE) 30ML UDC PO SCH (08:38)
[2018-05-22] MEDS: LINEZOLID (ZYVOX) 600 MG TAB PO SCH (08:38)
[2018-05-22] MEDS: meTOprolol TARTRATE 25 MG (LOPRESSOR) TABLET PO SCH (08:38)
[2018-05-22] MEDS: MAGNESIUM OXIDE (MAG-OX)400 MG TAB PO SCH (08:38)
[2018-05-22] MEDS: inSUlin DETERMIR 1 UNIT/0.01 ML (LEVEMIR) CHARGE PER UNIT SQ SCH (08:39)
[2018-05-22] MEDS: TORSEMIDE 20 MG (DEMADEX) TAB PO SCH (08:40)
[2018-05-22] MEDS ORDERED: SENN-141 PO (09:41)
--- NOTE | 2018-05-22 09:44 | Discharge Summary-Hospitalist ---
AC RIVERO DO 05/22/18 0944: Diagnosis/Chief Complaint Date of Admission May 17, 2018 at 13:56 Date of Discharge Discharge Date: May 22, 2018 Discharge Diagnosis (1) Acute and chronic respiratory failure with hypoxia Status: Acute (2) Altered mental status Status: Resolved (3) Urinary tract infection Status: Acute (4) Hyperkalemia Status: Resolved (5) Elevated troponin Status: Acute (6) Anemia Status: Chronic (7) HLD (hyperlipidemia) Status: Chronic (8) Refusal of blood transfusions as patient is Jainism Status: Chronic Discharge Summary Discharge Physical Exam Allergies: Coded Allergies: Bacitracin Zinc (Unverified Allergy, Unknown, 07/11/17) Penicillins (Unverified Allergy, Unknown, HAS RECEIVED ROCEPHIN DURING PREVIOUS ADMIT, 07/11/17) bacitracin (Unverified Allergy, Unknown, 07/11/17) colistimethate sodium (Unverified Allergy, Unknown, 07/11/17) gramicidin D (Unverified Allergy, Unknown, 07/11/17) neomycin sulfate (Unverified Allergy, Unknown, 07/11/17) polymyxin B (Unverified Allergy, Unknown, 07/11/17) polymyxin B sulfate (Unverified Allergy, Unknown, 07/11/17) pramoxine HCl (Unverified Allergy, Unknown, 07/11/17) Vitals & I&Os Vital Signs Date Time Temp Pulse Resp B/P (MAP) Pulse Ox O2 Delivery O2 Flow Rate FiO2 05/22/18 10:00 98.4 95 22 141/68 (92) 96 Nasal Cannula 3.00 05/20/18 06:20 35 General Appearance: No Apparent Distress, WD/WN, Chronically ill Respiratory: Chest Non Tender, Lungs Clear, Normal Breath Sounds, No Accessory Muscle Use, No Respiratory Distress, Decreased Breath Sounds Neurologic/Psychiatric: Alert, Oriented x3, No Motor/Sensory Deficits, Normal Mood/Affect Hospital Course Hospital course: Patient had a lengthy hospital course for acute on chronic respiratory failure and UTI. She was managed aggressively with return to baseline function which is bedridden state due to morbid obesity. UTI was completely treated with IV antibiotics but anemia persisted and she declined blood products due to restorationism reasons. Patient was given IV iron. Overall poor prognosis persist she declined any hospice enrollment but patient will continue to decline and has a very poor prognosis. She was deemed stable for [facility] placement to return where she was before. Labs (last 24 hrs) Laboratory Tests 05/22/18 04:57: Glucometer 254H 05/22/18 05:30: White Blood Count 10.8, Red Blood Count 2.66L, Hemoglobin 7.3L, Hematocrit 25L, Mean Corpuscular Volume 95, Mean Corpuscular Hemoglobin 27, Mean Corpuscular Hemoglobin Concent 29L, Red Cell Distribution Width 16.9H, Platelet Count 374, Mean Platelet Volume 8.7, Neutrophils (%) (Auto) 81H, Lymphocytes (%) (Auto) 8L , Monocytes (%) (Auto) 10, Eosinophils (%) (Auto) 1, Basophils (%) (Auto) 0, Neutrophils # (Auto) 8.7H, Lymphocytes # (Auto) 0.9L, Monocytes # (Auto) 1.1H, Eosinophils # (Auto) 0.1, Basophils # (Auto) 0.0, Neutrophils % (Manual) 83, Lymphocytes % (Manual) 8, Monocytes % (Manual) 8, Eosinophils % (Manual) 1, Polychromasia SLIGHT, Hypochromasia SLIGHT, Basophilic Stippling SLIGHT, Sodium Level 137, Potassium Level 4.4, Chloride Level 96L, Carbon Dioxide Level 30, Anion Gap 11, Blood Urea Nitrogen 71H, Creatinine 2.12H, Estimat Glomerular Filtration Rate 23, BUN/Creatinine Ratio 33, Glucose Level 224H, Calcium Level 10.3H, Corrected Calcium 11.5H, Phosphorus Level 4.2, Magnesium Level 1.9, Total Bilirubin 0.2, Aspartate Amino Transf (AST/SGOT) 23, Alanine Aminotransferase (ALT/SGPT) 30, Alkaline Phosphatase 262H, Total Protein 6.6, Albumin 2.5L 05/22/18 11:28: Glucometer 196H Microbiology 05/17/18 Blood Culture - Final, Complete No growth 05/17/18 MRSA Screen - Final, Complete 05/17/18 Urine Culture - Final, Complete Escherichia coli Enterococcus faecium Patient resulted labs reviewed. Pending Labs Discussion & Recommendations Discharge Planning: <30 minutes discharge planning Discharge Home Medications: Active Scripts Active Senna (Sennosides) 8.6 Mg Tablet 8.6 Mg PO BID 30 Days Reported Neutraphor (Dimethicone) 57 Gm Cream..g. TP TID APPLY TO GROIN AND GLUTEAL CREASE Multivitamins with Minerals (Multivitamin with Minerals) 1 Each Tablet 1 Tab PO DAILY Tylenol (Acetaminophen) 325 Mg Tablet 325-650 Mg PO Q6H PRN Turmeric 500 mg Capsule (Turmeric/Turmeric Root Extract) 1 Each Capsule 500 Mg PO BID Pyridium (Phenazopyridine HCl) 200 Mg Tablet 200 Mg PO Q8H PRN Nystatin 1 Each Powder.ea. TOP BID APPLY TO ABDOMINAL FOLDS FOR GAULDING Milk of Magnesia (Magnesium Hydroxide) 400 Mg/5 Ml Oral.susp 30 Ml PO DAILY PRN Levemir Flextouch (Insulin Detemir) 100 Unit/1 Ml Insuln.pen 35 Unit SQ BID Lactulose 10 Gm/15 Ml Solution 15 Ml PO BID Ferrous Sulfate 325 Mg Tablet 325 Mg PO BID Clopidogrel (Clopidogrel Bisulfate) 75 Mg Tablet 75 Mg PO DAILY Vitamin D3 (Cholecalciferol (Vitamin D3)) 50,000 Unit Capsule 50,000 Unit PO WEEK l-Arginine (Arginine HCl) 1,000 Mg Tablet 2,000 Mg PO TID Hydralazine HCl 25 Mg Tablet 25 Mg PO TID Simbrinza 1%-0.2% Eye Drops (Brinzolamide/Brimonidine Tart) 8 Ml Drops.susp 1 Drop OU TID Torsemide 20 Mg Tablet 20 Mg PO BID Clonidine HCl 0.3 Mg Tablet 0.3 Mg PO BID Magnesium (Magnesium Oxide) 250 Mg Tablet 250 Mg PO DAILY Aspir 81 (Aspirin) 81 Mg Tablet.dr 81 Mg PO DAILY Gabapentin 100 Mg Capsule 300 Mg PO TID TAKES 3 (100MG) CAPSULES Alavert (Loratadine) 10 Mg Tab.rapdis 10 Mg PO DAILY PRN Rosuvastatin Calcium 20 Mg Tablet 20 Mg PO HS Novolog Flexpen (Insulin Aspart) 300 Units/3 Ml Solution 20 Units SC AC Fish Oil 1,000 mg Softgel ([place]-3/Dha/Epa/Fish Oil) 1 Each Capsule 1,000 Mg PO TID Instructions to patient/family Please see electronic discharge instructions given to patient. Clinical Quality Measures DVT/VTE Risk/Contraindication: Risk Factor Score Per Nursin RFS Level Per Nursing on Admit: 4+=Very High CHARLY FORD MEDICAL STUDENT 05/22/18 1150: Discharge Summary Discharge Physical Exam Allergies: Coded Allergies: Bacitracin Zinc (Unverified Allergy, Unknown, 07/11/17) Penicillins (Unverified Allergy, Unknown, HAS RECEIVED ROCEPHIN DURING PREVIOUS ADMIT, 07/11/17) bacitracin (Unverified Allergy, Unknown, 07/11/17) colistimethate sodium (Unverified Allergy, Unknown, 07/11/17) gramicidin D (Unverified Allergy, Unknown, 07/11/17) neomycin sulfate (Unverified Allergy, Unknown, 07/11/17) polymyxin B (Unverified Allergy, Unknown, 07/11/17) polymyxin B sulfate (Unverified Allergy, Unknown, 07/11/17) pramoxine HCl (Unverified Allergy, Unknown, 07/11/17) General Appearance: Chronically ill, Mild Distress HEENT: PERRL/EOMI Respiratory: Chest Non Tender, Decreased Breath Sounds, Respiratory Distress Skin: Normal Color, Warm/Dry Neurologic/Psychiatric: Alert, Oriented x3 Hospital Course pt was admitted on 05/17 for hypoxia and UTI. Pt was started on ceftriaxone. Pt' s clopidogrel and ASA was held due to anemia and was continued on iron. Pt refused blood due to being Jehovah Witness. Pt has remained afebrile during hospital stay. Pt to be discharged to [facility] without any more antibiotics needed Problem Qualifiers (1) Altered mental status: Altered mental status type: unspecified Qualified Codes: R41.82 - Altered mental status, unspecified (2) Urinary tract infection: Urinary tract infection type: site unspecified Hematuria presence: without hematuria Qualified Codes: N39.0 - Urinary tract infection, site not specified (3) Anemia: Anemia type: unspecified type Qualified Codes: D64.9 - Anemia, unspecified (4) HLD (hyperlipidemia): Hyperlipidemia type: mixed hyperlipidemia Qualified Codes: E78.2 - Mixed hyperlipidemia AC RIVERO DO May 22, 2018 09:44 CHARLY FORD MEDICAL STUDENT May 22, 2018 11:50
--- NOTE | 2018-05-22 09:44 | Discharge Inst-Skilled Nursing ---
Discharge Inst-Skilled NF Patient Instructions Patient Problems: UTI s/p completion of treatment while inpt Respiratory failure CAD Refuses blood transfusions due to JW Anemia Goal: Independent ADL's Consult/Follow Up/Orders Follow Up Appt.: [facility] rounds Skilled NF Admit to: [facility] Certification (SNF) I certify that SNF services are required to be given on an inpatient basis because of the above named patient's need for longterm care on a continuing basis for the conditions(s) for which he/she was receiving inpatient hospital services prior to his/her transfer to the SNF. Group Home Facility Order: Nursing Services, Jet Ski Mechanic-Evaluate & Treat, Physical Therapy-Evaluate & Treat, Speech Language-Evaluate & Treat, Wound Care-Eval/Treat Discharge Diet: Cardiac Diet Daily Activity as Tolerated: Yes New & Resume Previous Orders Toya Pedro May 22, 2018 09:42 TOYA PEDRO DO May 22, 2018 09:44
[2018-05-22] MEDS ORDERED: SENNA W/DOCUSATE (SENOKOT S) TABLET PO NR (09:45)
--- NOTE | 2018-05-22 09:58 | NUR ---
CM DISCHARGE PLANNING: Patient is discharging to [facility] today for skilled physical et occupational therapies. transcribing operators supervisor time set for 11:30 today et MLP will bring oxygen for transport. Updated primary care nurse Vicky. Discharge orders faxed et red discharge packet updated. No further interventions noted at this time.
[2018-05-22 10:00] VITALS: BP 141/68
--- NOTE | 2018-05-22 11:16 | Progress Note-Cardiology ---
Cardiology SOAP Progress Note Subjective: In bed. No c/o CP, dyspnea, or palpitations. C/O "tired". Objective: I&O/Vital Signs 05/22/18 05/22/18 05/22/18 05/22/18 03:36 04:10 08:00 10:00 Temp 99.0 98.4 98.4 Pulse 64 64 95 95 Resp 25 22 18 22 B/P (MAP) 117/69 (85) 141/68 (92) 141/68 (92) Pulse Ox 96 98 96 96 O2 Delivery Nasal Cannula Nasal Cannula Nasal Cannula O2 Flow Rate 35.00 3.00 4.00 3.00 05/22/18 00:00 Intake Total 650 ml Output Total 1475 ml Balance -825 ml Weight (Pounds): 310 Weight (Ounces): 2.0 Weight (Calculated Kilograms): 140.503282 Constitutional: well-developed, well-nourished, other (somnolent, does not answer questions of orientation; oriented to self) Respiratory: other (Air entry diminished at the bases; prolonged exp phase) Cardiovascular: regular rate-rhythm, S1 and S2, systolic murmur (soft ALEC at card base) Gastrointestional: No tender, No guarding, No rebound; audible bowel sounds Extremities: other (mod bilat leg swelling); No clubbing, No cyanosis Neurologic/Psychiatric: other (See above for mental status exam; seems to be able to move all limbs equally) Skin: normal color, warm/dry Results/Procedures: Labs Laboratory Tests 05/21/18 16:31: Glucometer 201H 05/21/18 20:23: Glucometer 188H 05/22/18 04:57: Glucometer 254H 05/22/18 05:30: White Blood Count 10.8, Red Blood Count 2.66L, Hemoglobin 7.3L, Hematocrit 25L, Mean Corpuscular Volume 95, Mean Corpuscular Hemoglobin 27, Mean Corpuscular Hemoglobin Concent 29L, Red Cell Distribution Width 16.9H, Platelet Count 374, Mean Platelet Volume 8.7, Neutrophils (%) (Auto) 81H, Lymphocytes (%) (Auto) 8L , Monocytes (%) (Auto) 10, Eosinophils (%) (Auto) 1, Basophils (%) (Auto) 0, Neutrophils # (Auto) 8.7H, Lymphocytes # (Auto) 0.9L, Monocytes # (Auto) 1.1H, Eosinophils # (Auto) 0.1, Basophils # (Auto) 0.0, Neutrophils % (Manual) 83, Lymphocytes % (Manual) 8, Monocytes % (Manual) 8, Eosinophils % (Manual) 1, Polychromasia SLIGHT, Hypochromasia SLIGHT, Basophilic Stippling SLIGHT, Sodium Level 137, Potassium Level 4.4, Chloride Level 96L, Carbon Dioxide Level 30, Anion Gap 11, Blood Urea Nitrogen 71H, Creatinine 2.12H, Estimat Glomerular Filtration Rate 23, BUN/Creatinine Ratio 33, Glucose Level 224H, Calcium Level 10.3H, Corrected Calcium 11.5H, Phosphorus Level 4.2, Magnesium Level 1.9, Total Bilirubin 0.2, Aspartate Amino Transf (AST/SGOT) 23, Alanine Aminotransferase (ALT/SGPT) 30, Alkaline Phosphatase 262H, Total Protein 6.6, Albumin 2.5L Microbiology 05/17/18 Blood Culture - Preliminary, Resulted No growth 05/17/18 MRSA Screen - Final, Complete 05/17/18 Urine Culture - Final, Complete Escherichia coli Enterococcus faecium Laboratory Tests 05/21/18 06:10 05/22/18 05:30 A/P: Assessment: Severe anemia of undetermined etiology, worsening, managed by the [facility] mental status changes and ac resp failure, improving The patient is a Jehovahs Witness and does not wish to ever receive any blood transfusions and is not, therefore, considered an ideal candidate for oral anticoagulation Elevated troponin likely to hypoxia due to ac resp failure and due to ac on ch renal failure; elevated BNP likely due to renal and resp failure H/o bradycardic cardiac arrest in October 2017, likely related to metabolic and electrolyte abnormalities Acute on chronic renal failure, acute component possibly due to intravascular vol depletion, chronic component likely due to DM II H/o severe hypertension. Hospitalization with hypertensive encephalopathy in late September 2017 Coronary artery disease with a history of coronary stenting in early [address] Hairston. The patient is stated to have received Promus 2.25 x 32 mm stent in the distal left anterior descending and Promus 2.25 x 28 mm stent in the left circumflex. These stents were patent on last cath of 03/25/14, but she underwent additional stenting: distal LAD with MiniVision 2x12 and proximal first diagonal with Promus Mike 2.5x12. The RCA was dominant and with mild plaques at the time of last cath of 03/25/14. LVEDP was mildly elevated. Last MPI of 03/22/16 showed no evidence of myocard ischemia or infarction, normal wall motion and LVEF 65%. Echo of 03/21/16 was a technically difficult study, but showed LVEF 65%, trivial to mild MR & TR, mild AoV sclerosis w/o stenosis, PASP WNL H/o osteomyelitis of the R great toe managed by Dr Alex [facility] the [facility] in [place], [place] Normal ABIs on 02/24/16 Carotid arterial disease with history of right carotid endarterectomy. Last carotid ultrasound of 07/24/17 showed 60-79% R ICA and less than 40% L ICA stenoses Maturity onset diabetes mellitus. Hyperlipidemia being treated with atorvastatin. Chronic kidney disease, stage IV, being managed by Dr Sarmad Vraghese. Chronic anemia, likely related to chronic kidney disease, managed by Dr Augustin. UTI. H/o urinary tract infections, being managed by her pcp History of chronic, recurrent deep venous thrombosis. History of inferior vena cava placement by Dr. Duvall in September 2011. History of left venous port placement by Dr. Duvall. Chronic leg swelling and stasis dermatitis, likely related to venous insufficiency and calcium channel donna therapy, unchanged Obesity with hypoventilation syndrome; BMI approx 55 Sleep apnea syndrome, being managed by Dr Fernandez Plan: * Complex management due to multiple comorbidities * Monitor labs * Greater than 4 years since last stent placement. In the presence of worsening anemia and occult (+) stools we will hold ASA and Plavix for now until source of bleeding has been determined and treated * Refuses blood transfusions d/t shinto preferences * H/H improving CODIE GALLARDO May 22, 2018 11:16
--- NOTE | 2018-05-22 12:11 | NUR ---
CEDRICK ALBERTS discharged to [facility]. Brother DPOA notified of discharge and report given [place] nurse at [facility]. CEDRICK ALBERTS belongings sent with patient. Skin dry and intact; (moisture damage coccyx).Vital signs are stable at time of discharge. Condition is stable at time of discharge. Discharge instructions and copies of H&P, discharge summary, physician's order, lab reports, consultation reports, other dictated reports, diagnostic imaging reports, Advance Directive, eMAR, vital signs, intake and output sent with patient. Patient discharged from [facility] on 05/22/18 at 1210. CEDRICK ALBERTS left floor via wheel chair, accompanied by staff. CEDRICK ALBERTS and family/DPOA notified and verbalize understanding of discharge to [facility].
[2018-05-22] MEDS ORDERED: SENNA W/DOCUSATE (SENOKOT S) TABLET PO SCH (21:00)
== END 2018-05-22 12:31 | DRG 189 ==
LOC: EDUNIT# 11:40 → ER 11:41 → ICU 13:56 → 4TH 05-18 11:12
PROVIDERS: ADMIT Family Medicine; ATTEND Family Medicine
DX: J96.21 Acute and chronic respiratory failure with hypoxia (principal); R79.89 Other specified abnormal findings of blood chemistry; N39.0 Urinary tract infection, site not specified; N17.9 Acute kidney failure, unspecified; R41.82 Altered mental status, unspecified; I12.9 Hypertensive chronic kidney disease with stage 1 through stage 4 chronic kidney disease, or unspecified chronic kidney disease; N18.4 Chronic kidney disease, stage 4 (severe); E66.2 Morbid (severe) obesity with alveolar hypoventilation; Z68.43 Body mass index [BMI] 50.0-59.9, adult; J44.9 Chronic obstructive pulmonary disease, unspecified; D63.1 Anemia in chronic kidney disease; E11.42 Type 2 diabetes mellitus with diabetic polyneuropathy; E11.319 Type 2 diabetes mellitus with unspecified 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 edema; I25.10 Atherosclerotic heart disease of native coronary artery without angina pectoris; I08.1 Rheumatic disorders of both mitral and tricuspid valves; L89.150 Pressure ulcer of sacral region, unstageable; E78.2 Mixed hyperlipidemia; E87.5 Hyperkalemia; M19.91 Primary osteoarthritis, unspecified site; M54.9 Dorsalgia, unspecified; F41.9 Anxiety disorder, unspecified; F32.9 Major depressive disorder, single episode, unspecified; I65.23 Occlusion and stenosis of bilateral carotid arteries; I87.2 Venous insufficiency (chronic) (peripheral); B96.20 Unspecified Escherichia coli [E. coli] as the cause of diseases classified elsewhere; T46.1X5A Adverse effect of calcium-channel blockers, initial encounter; Z95.5 Presence of coronary angioplasty implant and graft; Z86.718 Personal history of other venous thrombosis and embolism; Z95.828 Presence of other vascular implants and grafts; Z79.4 Long term (current) use of insulin
CPT/HCPCS: 36415; 36600; 51702; 70450; 71045; 80053; 81000; 82274; 82805; 82962; 83605; 83735; 83880; 84100; 84484; 85007; 85025; 85027; 85610; 85730; 86141; 87040; 87077; 87081; 87088; 87186; 87804; 93005; 93041; 94640; 94660; 94760; 96361; 96365